=== PATIENT | female | born 1960 | race Caucasian/White ===

== ENCOUNTER 2025-04-30 13:19 | Inpatient (IN) | payer MEDICAID, SELFPAY ==
[2025-04-30] VITALS (69 sets, daily range): BP systolic 71–157; BP diastolic 39–117; PULSE 68–173; RESP 13–45; TEMP 35.4–38; O2SAT 80–100; BMI 28.3
--- NOTE | 2025-04-30 13:34 | EKG_ITS ---
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1960 Requested By: ED Temporary Provider Order Number: [id number] Reading MD: ED Temporary Provider Measurements Intervals [place] Rate: 93 P: MS: QRS: -48 QRSD: 226 T: 137 QT: 486 QTc: 607 Interpretive Statements ATRIAL FIBRILLATION WITH ABERRANT CONDUCTION OR VENTRICULAR PREMATURE COMPLEXES INTRAVENTRICULAR CONDUCTION DELAY [130+ ms QRS DURATION] LATERAL MYOCARDIAL INFARCTION , OF INDETERMINATE AGE [40+ ms Q WAVE AND/OR ST/T ABNORMALITY IN I/aVL/V5/V6] INFERIOR MYOCARDIAL INFARCTION , POSSIBLY ACUTE [40+ ms Q WAVE AND/OR ST/T ABNORMALITY IN II/aVF] ACUTE [place] No previous ECG available for comparison /store/S0/[id number]
--- NOTE | 2025-04-30 13:35 | PC.NURSE ---
No heart alert to be called per Dr. Keen.
--- NOTE | 2025-04-30 13:40 | PC.NURSE ---
[facility], pt. has been vomiting bile X 2 days, pt. states her stomach hurts, pt. stating she doesn't want to , pt. stating she can't breathe.
--- NOTE | 2025-04-30 13:45 | PD.EDNV ---
Nausea/Vomit./Diarrhea-RME/HPI General Chief complaint: Nausea/Vomiting/Diarrhea Stated complaint: ABD PAIN Time Seen by Provider: 04/30/25 13:43 Arrival date/time: 04/30/25 13:19 Limitations: no limitations RME / HPI RME / HPI Narrative: 64 year old female with history of CVA, atrial fibrillation, HFrEF (25-30% 01/2023), CKD, hypothyroidism, presents to the ED BIBA from [facility] for evaluation of abdominal pain beginning 2 days ago and remaining constant since. States the pain is located most to the mid upper abdomen, described as aching in sensation, rating as moderate. Accompanied by nausea and nonbloody vomiting. Patient additionally reports feeling anxious and states I don't want to . Denies any recent illness, fevers, chills, chest pain, shortness of breath, or dysuria. Related Data Home Medications ?Medication ?Instructions ?Recorded ?Confirmed levothyroxine 50 mcg tablet 50 mcg PO QDAY #0 tabs 09/10/15 01/11/20 potassium chloride 20 mEq 20 meq PO TIDWM #0 tabs 09/10/15 01/11/20 tablet,extended release(part/cryst) Held on 07/10/23. Instructions: PCP to resume at follow up magnesium hydroxide 400 mg/5 mL 30 ml PO Q72H PRN CONSTIPATION #0 09/11/15 01/11/20 oral suspension (Milk of Magnesia) mL multivitamin with minerals 1 tab PO QDAY ##0 09/11/15 01/11/20 ascorbic acid (vitamin C) 500 mg 500 mg PO BID 03/12/19 01/11/20 tablet psyllium husk 0.52 gram capsule 0.52 g PO BID 03/12/19 01/11/20 (Fiber-Caps (psyllium husk)) ropinirole 1 mg tablet 1 mg PO BID 03/12/19 01/11/20 Previous Rx's ?Medication ?Instructions ?Recorded diphenoxylate-atropine 2.5 1 tab PO BID #6 tabs 01/15/20 mg-0.025 mg tablet metoprolol succinate 25 mg 50 mg (2 x 25 mg) PO QDAY #0 tabs 07/10/23 tablet,extended release 24 hr rivaroxaban 15 mg tablet (Xarelto) 15 mg PO WSUPPER #0 tabs 07/10/23 Allergies Allergy/AdvReac Type Severity Reaction Status Date / Time Cephalexin Monohydrate Allergy Severe Anaphylaxis Verified 04/30/25 13:40 sulfamethoxazole Allergy Severe Anaphylaxis Verified 04/30/25 13:40 trimethoprim Allergy Severe Anaphylaxis Verified 04/30/25 13:40 Review of Systems Review of Systems Systems Reviewed: All systems reviewed, normal except as documented Past Medical History Past Medical History NEUROLOGIC: Positive Neurological Disorders and Cerebrovascular Accident CARDIAC: Positive Cardiac Disorders, Atrial Fibrillation and Hypertension RESPIRATORY: Positive Asthma GENITOURINARY: Positive Renal Disease ENDOCRINE: Positive Diabetes Mellitus Type 2 Family History FAMILY HISTORY: Negative Family Cardiac Disorders Surgical History SURGICAL: Negative Cardiac Surgery, Endocrine Surgery, Ear Surgery, Abdominal Surgery, Nephrectomy, Joint Replacement or Neurologic Surgery Social History SMOKING STATUS: Former smoker ED Exam General Limitations: Present no limitations General appearance: Present alert and other (complains of pain anywhere my stethoscope touches ) Head Head exam: Present atraumatic Eye Eye exam: Present normal appearance, PERRL and EOMI ENT ENT exam: Present normal exam, normal oropharynx and mucous membranes moist Neck Neck exam: Present normal inspection, full ROM and trachea midline Chest Chest inspection: Present normal inspection and symmetric chest wall rise Respiratory Respiratory exam: Present normal lung sounds bilaterally Cardiovascular Cardiovascular exam: Present irregular rhythm (tachycardic ) and normal heart sounds Abdominal Exam Abdominal exam: Present soft, tenderness (1-2+ tenderness upper abdomen, no rebound, no percussion) and normal bowel sounds Extremities Exam Extremities exam: Present other (sacral decubitus ulcer that is healing, left posterior thigh excoriation, left heel eschar, left leg has more edema than right (left leg 3+ and right leg 2+), left distal leg and foot with slightly erythema) Back Exam Back exam: Present normal inspection and full ROM Neurological Exam Neurological exam: Present alert, oriented X3 and CN II-XII intact Psychiatric Psychiatric exam: Present normal affect and normal mood Skin Skin exam: Present warm, dry, intact and normal color Course Quality Measures none Orders Category Date Time Status COVID-19 Screening Questionnaire NOW Care 04/30/25 15:[address] Screening NOW Care 04/30/25 14:39 Active Interpersonal Communications Professor NOW Care 04/30/25 13:49 Active Continuous Pulse Oximetry NOW Care 04/30/25 13:49 Completed Decision to Admit X1 Care 04/30/25 15:56 Active EKG (ED ONLY) *Do not use* NOW Care 04/30/25 13:34 Completed EKG (ED ONLY) *Do not use* NOW Care 04/30/25 13:49 Completed EKG (ED ONLY) *Do not use* NOW Care 04/30/25 16:04 Active Insert IV NOW Care 04/30/25 13:49 Active Consult to Nephrology Stat Cons 04/30/25 15:[address] abdomen pelvis w con Stat Exams 04/30/25 14:39 Ordered EKG (ED Only) Stat Exams 04/30/25 13:34 Draft EKG (ED Only) Stat Exams 04/30/25 13:49 Ordered EKG (ED Only) Stat Exams 04/30/25 16:04 Ordered XR chest 1V portable Stat Exams 04/30/25 13:49 Completed ABG [Arterial Blood Gas] Stat Lab 04/30/25 15:54 Ordered BNP [B-Type Natriuretic Peptide] Stat Lab 04/30/25 16:02 Received Blood Culture (Lab) Stat Lab 04/30/25 15:57 Ordered CBC Stat Lab 04/30/25 14:00 Completed Comprehensive Metabolic Panel Stat Lab 04/30/25 15:25 Received Lactic Acid [Lactate (Lactic Acid)] Stat Lab 04/30/25 15:57 Ordered Partial Thromboplastin Time Stat Lab 04/30/25 14:00 Completed Procalcitonin Stat Lab 04/30/25 16:06 Ordered Prothrombin Time with INR Stat Lab 04/30/25 14:00 Completed Troponin I Stat Lab 04/30/25 15:25 Received Urinalysis Stat Lab 04/30/25 13:49 Ordered ALBUTEROL RT 3ml [Proventil Rt 3ml] Med 04/30/25 15:54 Discontinued 5 mg INH X1 ONE Calcium Chloride 10% Abboject 10 ml Med 04/30/25 15:25 Active Dextrose 5%-Water [D5w] 100 ml IV X1 Dextrose 50% Syr [D50w Syringe Abboject] Med 04/30/25 15:25 Discontinued 50 ml IVP X1 ONE Insulin Regular Med 04/30/25 15:25 Discontinued 8 unit IV X1 ONE Sod Polystyrene Sulfon Susp [Kayexalate Susp] Med 04/30/25 15:25 Discontinued 15 gm PO X1 ONE Sodium Bicarb 8.4% 50ml Vial* Med 04/30/25 15:25 Discontinued 50 meq IV X1 ONE Sodium Chloride 0.9% 1000 ml [Ns] 1,000 ml Med 04/30/25 13:49 Active IV 100 mls/hr BiPAP / CPAP NOW RT 04/30/25 15:56 Active Oxygen Delivery NOW RT 04/30/25 13:49 Active Vital Signs Vital signs: Vital Signs Pulse Rate 74 04/30/25 13:29 Respiratory Rate 19 04/30/25 13:29 Oxygen Flow Rate 4 04/30/25 13:29 Nausea/Vomiting/Diarrhea Patient data External records reviewed:: [facility] previous records, EMS form and Group Home records (I reviewed pmhx and medication list from [facility] ) Clinical information provided by:: patient and EMS Social determinants that could affect healthcare access:: [place] [facility] ) Patient has the following chronic illnesses:: CVA, atrial fibrillation, HFrEF (25-30% 01/2023), CKD, hypothyroidism How is presenting disease/condition affected by chronic disease/condition?: no chronic disease Evaluation data The following diagnostics were reviewed and interpreted by me:: lab results, radiology exam(s) and EKG tracing(s) (05/01/2025 @ 13:36. Atrial fibrillation with RVR, rate 106, lateral SC of indeterminate age, inferior SC of indeterminate age, marked ST depression, no STEMI, QRS 227ms) Lab and/or radiology exams considered but not ordered:: None Interpretation Summary: Ordering Physician: Kofi Keen MD Date of Service: 04/30/25 Procedure(s): XR chest 1V portable Accession Number(s): [id number] cc: Kofi Keen MD; Danis Myers MD~ Exam: Chest 1 view, AP Date and time of exam: 11/28/2024, 2:08 PM INDICATION: Cough Comparison: 06/03/2016 Findings: Normal heart size. No mediastinal adenopathy. No acute fracture No pulmonary edema or pneumonia. Impression: No active disease. Dictated By: Danis Myers MD Signed By: <Electronically signed by Danis Myers MD in OV> 04/30/25 1423 Medications / Prescriptions Medications / Prescriptions considered but not ordered:: None Medication administrations:: Medication Administration History Sodium Chloride (Ns) 1,000 mls @ 100 mls/hr IV .Q10H ONE Stop: 04/30/25 23:48 Last Admin: 04/30/25 14:17 Dose: 100 mls/hr Documented By: ED Calcium Chloride 10 ml/ (Dextrose) 110 mls @ 110 mls/hr IV X1 ONE Stop: 04/30/25 16:24 Discontinued Medications Albuterol (Albuterol Rt 2.5 Mg/3 Ml Nebu) 5 mg INH X1 ONE Stop: 04/30/25 15:55 Dextrose (Dextrose 50%-Water Inj 50 Ml Syringe) 50 ml IVP X1 ONE Stop: 04/30/25 15:26 Insulin Human Regular (Insulin Hum Regular 1 Unit/0.01 Ml (Per Unit)) 8 unit IV X1 ONE Stop: 04/30/25 15:26 Sodium Bicarbonate (Sodium Bicarb Inj 8.4% 1 Meq/Ml 50 Ml Vial) 50 meq IV X1 ONE Stop: 04/30/25 15:26 Sodium Polystyrene Sulfonate (Sod Polystyrene Sulfon Susp 15 Gm/60 Ml Btl) 15 gm PO X1 ONE Stop: 04/30/25 15:26 See above Consultations Consultation(s) initiated? (list below): Yes Consultation #1 (Physician, Specialty, Details): I spoke with aerial sprayer Dr. Granados. Discussed EKG findings and states it is most consistent with electrolyte imbalance. Time: 13:46 Diagnosis Nausea Differential Diagnosis: gastroenteritis, drug-induced nausea and vomiting, dehydration and other (electrolyte imbalance ) Most likely diagnosis given after review of the tests above:: Acute hyperkalemia, afib with rvr, hypothyoroidism, acute respiratory distress Admission Indicated Admission indicated?: indicated Admission Request Was there a request for admission?: Yes Admission Attestation Admission request attestation: Discussed case with [] from Hospitalist service regarding admission. Discussed patients ED course, exam findings, labs, and radiology results. The Hospitalist [agrees,declines] to accept the patient for admission. Disposition Plan Disposition Plan: Admit Critical Care Time Critical Care Time Critical Care Time: Yes Total Critical Care Time (min.): 45 Attestation: The high probability of sudden, clinically significant deterioration in the patient's condition required the highest level of my preparedness to intervene urgently. The services I provided to this patient were to treat and/or prevent clinically significant deterioration. Services included the following: chart data review, reviewing nursing notes and/or old charts, documentation time, [employer] consultant collaboration regarding findings and treatment options, medication orders and management, direct patient care, vital sign assessments and ordering, interpreting and reviewing diagnostic studies and lab tests. Aggregate critical care time includes only time during which I was engaged in work directly related to the patient's care, as described above, whether at bedside or elsewhere in the Emergency Department. It did not include time spent performing other reported procedures or the services of residents, students, nurses or physician assistants. Discharge Plan Plan Patient Disposition: Admit Acute Care w/in Hospital Prescriptions/Referrals Prescriptions/Med Rec: No Action potassium chloride 20 MEQ tablet,ER particles/crystals 20 meq PO TIDWM Qty: 0 levothyroxine 50 mcg Tablet 50 mcg PO QDAY Qty: 0 magnesium hydroxide [Milk of Magnesia] 30 ML/CUP suspension 30 ml PO Q72H PRN (Reason: CONSTIPATION) Qty: 0 multivitamin with minerals Tablet 1 tab PO QDAY Qty: 0 ascorbic acid (vitamin C) 500 mg Tablet 500 mg PO BID psyllium husk [Fiber-Caps (psyllium husk)] 0.52 gram Capsule 0.52 g PO BID ropinirole 1 mg Tablet 1 mg PO BID diphenoxylate-atropine 2.5-0.025 mg Tablet 1 tab PO BID Qty: 6 0RF metoprolol succinate 25 mg Tablet Extended Release 24 Hr 50 mg PO QDAY Qty: 0 0RF Xarelto 15 mg Tablet 15 mg PO WSUPPER Qty: 0 0RF Referrals: Saida Mejía MD [Primary Care Provider] - In 1 week Problem List Clinical Impression: Acute hyperkalemia, Atrial fibrillation with RVR, Hypothyroidism, Acute respiratory distress Patient/Caregiver Discharge Instructions Print Language: Fijian Stand Alone Forms: [employer]mita Award Info., Patient Portal Info Letter
--- NOTE | 2025-04-30 13:49 | XR_ITS ---
Exam: Chest 1 view, AP Date and time of exam: 11/28/2024, 2:08 PM INDICATION: Cough Comparison: 06/03/2016 Findings: Normal heart size. No mediastinal adenopathy. No acute fracture No pulmonary edema or pneumonia. Impression: No active disease.
--- NOTE | 2025-04-30 13:49 | EKG_ITS ---
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1960 Requested By: Kofi Gray Order Number: [id number] Reading MD: Kofi Gray Measurements Intervals [place] Rate: 100 P: [place]: QRS: -51 QRSD: 219 T: 129 QT: 347 QTc: 447 Interpretive Statements ATRIAL FLUTTER/TACHYCARDIA WITH RAPID VENTRICULAR RESPONSE WITH ABERRANT CONDUCTION OR VENTRICULAR PREMATURE COMPLEXES INTRAVENTRICULAR CONDUCTION DELAY [130+ ms QRS DURATION] LATERAL MYOCARDIAL INFARCTION , OF INDETERMINATE AGE [40+ ms Q WAVE AND/OR ST/T ABNORMALITY IN I/aVL/V5/V6] INFERIOR MYOCARDIAL INFARCTION , PROBABLY OLD [40+ ms Q WAVE AND/OR ST/T ABNORMALITY IN II/aVF] MARKED ST DEPRESSION, CONSIDER SUBENDOCARDIAL INJURY [0.2+ mV ST DEPRESSION] ACUTE [place] Compared to ECG 04/30/2025 13:36:40 ST (T wave) deviation now present Atrial fibrillation no longer present Myocardial infarct finding still present /store/S0/[id number]/ecg/[id number]
[2025-04-30] MEDS: SODIUM CHLORIDE 0.9% 1000 ML 1,000 ML 100 ML IV (14:17)
[2025-04-30 14:29] LABS: Basophils # (Auto) 0.0 Thou/mm3 (0.0-0.2); Basophils % (Auto) 0 % (0-2.5); Eosinophils # (Auto) 0.0 Thou/mm3 (0.0-0.5); Eosinophils % (Auto) 0 % (0-10); Hematocrit 36.7 % (36.0-46.0); Hemoglobin 11.0 g/dL (12.0-16.0); Immature Granulocytes Auto 0.16 Thou/mm3 (0.00-0.00); Lymphocytes # (Auto) 2.0 Thou/mm3 (1.0-4.8); Lymphocytes % (Auto) 17 % (10-50); Mean Corpuscular HGB Conc 30.0 g/dl (31.0-37.0); Mean Corpuscular Hemoglobin 31.9 pg (25.0-35.0); Mean Corpuscular Volume 106 fL (80-100); Monocytes # (Auto) 0.8 Thou/mm3 (0.0-0.8); Monocytes % (Auto) 6 % (0-12); Neutrophils # (Auto) 9.1 Thou/mm3 (1.8-7.7); Neutrophils % (Auto) 75 % (37-80); Nucleated Red Blood Cell # 0.00 Thou/mm3 (0.00-0.00); Nucleated Red Blood Cell % 0 /100 WBC (0); Platelet Count 228 Thou/mm3 (140-440); RDW Standard Deviation 66.6 fL (36.4-46.3); Red Blood Count 3.45 Miln/mm3 (4.00-5.20); White Blood Count 12.1 Thou/mm3 (3.6-11.0)
[2025-04-30 14:37] LABS: INR 1.4 (0.9-1.3); Partial Thromboplastin Time 32.1 Seconds (22.0-36.0); Prothrombin Time 14.6 Seconds (9.0-12.2)
--- NOTE | 2025-04-30 14:42 | PC.NURSE ---
called [facility] and spoke to the nurse at station 3, informed her that pt. wants to talk to her , nurse states please call [phone], called cordless number and no one answered. Called [phone] back and asked for station 3, the nurse dev
--- NOTE | 2025-04-30 14:45 | PC.NURSE ---
called [facility] for pt. to speak with her Ariel, , nurse answered and I asked for pt.'s in station 3, nurse stated please call [phone] cordless phone, called [phone], no answer. Called [phone] back and nurse states Ariel will be unable to talk because cordless phone isn't working. Pt. aware.
--- NOTE | 2025-04-30 15:04 | PC.NURSE ---
Vaibhav from Lab called and pt.'s K+ 9.1, Vaibhav states that he will have the mica patcher redraw pt. Dr. Keen informed.
--- NOTE | 2025-04-30 16:03 | PC.NURSE ---
Pt. just redrawn by area manager.
[2025-04-30] MEDS: CALCIUM CHLORIDE 10% INJ 10 ML SYRG IV (16:20)
[2025-04-30] MEDS: INSULIN HUM REGULAR 1 UNIT/0.01 ML (PER UNIT) 5 UNIT IV (16:28)
[2025-04-30] MEDS: ALBUTEROL RT 2.5 MG/3 ML NEBU 5 MG INH (16:31)
[2025-04-30 16:33] LABS: B-Type Natriuretic Peptide 2426 pg/mL (0-100)
[2025-04-30 16:41] LABS: Alanine Aminotransferase 8 U/L (10-49); Albumin, Serum 3.3 gm/dL (3.4-4.8); Albumin/Globulin Ratio 0.9 (1.2-2.2); Alkaline Phosphatase 79 U/L (46-116); Anion Gap 18 (7-16); Aspartate Amino Transferase 22 U/L (0-34); BUN/Creatinine Ratio 10 Ratio (12-20); Bilirubin,Total 0.3 mg/dL (0.3-1.2); Blood Urea Nitrogen 65 mg/dL (9-23); Calcium 9.6 mg/dL (8.3-10.6); Calcium (Corrected) 10.2 mg/dL (8.5-10.1); Chloride 110 mMol/L (98-107); Creatinine (Component) 6.2 mg/dL (0.6-1.3); Globulin 3.5 gm/dL (2.3-3.5); Glucose 78 mg/dL (74-106); Osmolality,Calculated 293 (275-295); Procalcitonin 0.19 ng/ml (0.0-0.49); Sodium 138 mMol/L (136-145); Total Protein 6.8 gm/dL (5.7-8.2); eGFR 7 See Note
[2025-04-30 16:41] LABS: Base Excess, Venous -27 (-3-3); O2 Saturation, Venous 73 % (96-97); PCO2, Venous 25 mmHg (36-56); PO2, Venous 56 mmHg (15-58); pH, Venous 6.89 (7.33-7.66)
[2025-04-30 16:43] LABS: Carbon Dioxide < 10.0 mMol/L (20.0-31.0)
[2025-04-30 16:44] LABS: Potassium 9.5 mMol/L (3.4-5.1); Troponin I 0.064 ng/mL (0.0-0.045)
[2025-04-30 16:45] LABS: Lactate (Lactic Acid) 11.6 mMol/L (0.4-2.0)
[2025-04-30] MEDS: Sodium Bicarb Inj 8.4% SYR 50 ML SYRINGE IV (17:20)
[2025-04-30] MEDS: INSULIN HUM REGULAR 1 UNIT/0.01 ML (PER UNIT) 10 UNIT IV (17:20)
[2025-04-30] MEDS: DEXTROSE 50%-WATER INJ 50 ML SYRINGE IV (17:20)
--- NOTE | 2025-04-30 17:27 | XR_ITS ---
Examination: Retroperitoneal ultrasound, complete Technique: Multiple high resolution grayscale images of the retroperitoneum obtained, including kidneys and bladder. Exam date and time:April 30, 2025, 2007 hrs. Indications: Epigastric pain 3 days, renal failure patient, abdominal pain Findings: Right kidney 11.8 cm cortex 2.1 cm Left kidney 10.5 cm cortex 1.7 cm Multiple left renal cysts, the largest 3.4 cm 19 mm renal calculus No hydronephrosis Contracted urinary bladder Impression: 19 mm left renal calculus, no hydronephrosis.
--- NOTE | 2025-04-30 17:57 | PC.NURSE ---
Dr. Siu put in central line right side neck, Dr. Keen confirmed.
--- NOTE | 2025-04-30 18:09 | PC.NURSE ---
Dr. Siu unable to get catheter in, guide wire is in and confirmed by Dr. Keen, Dr. Byrnes is bedside and states he will try femoral.
--- NOTE | 2025-04-30 18:23 | PC.NURSE ---
Dr. Byrnes bedside to do femoral dialysis catheter. Dr. Siu bedside with Dr. Byrnes.
[2025-04-30] MEDS: Sodium Bicarb 8.4% 50ml Vial* 88.23 MEQ in DEXTROSE 5%-WATER 500 ML 100 MEQ IV (18:30)
--- NOTE | 2025-04-30 18:41 | PC.NURSE ---
Dr. Byrnes just put in left femoral catheter for dialysis. Pt. tolerated well.
--- NOTE | 2025-04-30 18:54 | PD.EDADDENDU ---
Emergency Room Addendum Addendum Narrative: Procedure note: Patient has decreased mental status and is unable to give consent. Patient was in need of a dialysis catheter due to a potassium greater than 9. A left femoral vein dialysis catheter was inserted using the Salinger technique and dual dilator method. Maximum sterile technique and barrier were used. Blood was obtained from all ports and all ports were flushed with normal saline. The line was sutured in place and sterilely dressed. Patient tolerated the procedure well.
--- NOTE | 2025-04-30 19:13 | ECHO_ITS ---
Transthoracic Echo Report Ht (in): 64 Wt (lb): 167 Exam Location: Echo Lab Status: Inpatient Night Baker: Dayna Emery Indications: Procedure Performed: BP: 106 / 75 HR: 96 MEASUREMENTS (Male / Female) Normal Values 2D ECHO LV Diastolic Diameter PLAX 5.7 cm 4.2 - 5.9 / 3.9 - 5.3 cm LV Systolic Diameter PLAX 5.4 cm IVS Diastolic Thickness 0.9 cm 0.6 - 1.0 / 0.6 - 0.9 cm LVPW Diastolic Thickness 1.0 cm 0.6 - 1.0 / 0.6 - 0.9 cm LV Relative Wall Thickness 0.3 LVOT Diameter 1.9 cm LV Ejection Fraction MOD BP 26.2 % >= 55 % LV Cardiac Index MOD BP 2821.5 cm?/min?m? LV Ejection Fraction MOD 4C 29.6 % LV Cardiac Index MOD 4C 2821.5 cm?/min?m? LV Ejection Fraction 4C AL 31.9 % LV Cardiac Index 4C AL 3105.3 cm?/min?m? LV Ejection Fraction MOD 2C 22.1 % LV Cardiac Index MOD 2C 2616.3 cm?/min?m? LV Ejection Fraction 2C AL 21.1 % LV Cardiac Index 2C AL 2524.5 cm?/min?m? LA Volume Index 85.5 cm?/m? 16 - 28 cm?/m? Ascending Aorta Diameter 3.9 cm M-MODE AV Cusp Separation MM 1.3 cm DOPPLER AV Peak Velocity 98.0 cm/s AV Peak Gradient 3.8 mmHg AV Mean Gradient 2.0 mmHg AV Velocity Time Integral 15.8 cm LVOT Peak Velocity 119.0 cm/s LVOT Peak Gradient 5.7 mmHg LVOT Velocity Time Integral 15.0 cm LVOT Cardiac Index 2181.8 cm?/min?m? AV Area Cont Eq vti 2.7 cm? AV Area Cont Eq pk 3.4 cm? MV Area PHT 8.1 cm? MR Peak Velocity 457.0 cm/s MR Peak Gradient 83.5 mmHg MR ERO PISA 2.3 cm? MR Regurgitant Volume PISA 296.1 cm? Mitral E Point Velocity 112.0 cm/s TR Peak Velocity 263.0 cm/s TR Peak Gradient 27.7 mmHg PV Peak Velocity 100.0 cm/s PV Peak Gradient 4.0 mmHg FINDINGS Left Ventricle Left ventricular is mildly dilated. Severe systolic dysfunction. Severe global hypokinesis wall motion. The ejection fraction is visually estimated at 20-25 %. Right Ventricle The right ventricle is normal in size and reduced systolic function. The estimated right ventricular systolic pressure, 41mmHg. Moderate-Severe HTN Left Atrium The left atrial cavity size is severely increased. Right Atrium The right atrial cavity size is mildly increased. Atrial Septum The interatrial septum appears normal with no evidence of a shunt. Aorta Mildly dilated ascending aorta measuring 3.9cm. Mitral Valve The mitral valve is normal by two-dimensional, color flow and Doppler interrogation. Agvojwes-bl-[id number] mitral regurgitation. Aortic Valve The aortic valve is trileaflet and normal by two-dimensional, color flow and Doppler interrogation. There is no significant aortic valve regurgitation. Tricuspid Valve The tricuspid valve is normal by two-dimensional, color flow and Doppler interrogation. There is moderate tricuspid regurgitation. Pulmonic Valve The pulmonic valve is not well visualized. There is no significant pulmonic valve regurgitation. Vessels The pulmonary artery appears normal. The inferior vena cava pulmonary and hepatic veins appear normal. Pericardium The pericardium is normal by two-dimensional imaging. There is no significant pericardial effusion. CONCLUSIONS Indication: CHF Dilated Cardiomyopathy, Moderately dilated LV. Severe global hypokinesis and severe systolic dysfunction. Estimated EF 15-20% Normal RV size, reduced systolic function. Estimated RVSP 45 mmHg. ModerateHTN Moderate MR and mild TR. trace to mild AI. LA severely dilated. RA mildly dilated. Mildly dilated ascending aorta measuring 3.9cm. Bishnu Barcenas (Electronically Signed) Final Date: 04 May 2025 00:12
[2025-04-30 19:37] LABS: Reflex Lactate? Y
[2025-04-30] MEDS: ALBUTEROL RT 2.5 MG/0.5 ML NEBU 5 MG INH (19:45)
--- NOTE | 2025-04-30 20:30 | ESHP_ITS ---
<Statement entered by James Siu MD - 05/05/25 16:39> 64-year-old female with significant past medical history of CVA, atrial fibrillation, HFrEF, CKD, hypothyroidism presented to the hospital with chief complaints of abdominal pain, nausea and vomiting since 2 days. Vitals at the time of admission are significant for temperature 100.4 ?F. Labs at the time of admission significant for potassium 9.5, bicarb less than 10, anion gap 18, creatinine 6.2, lactate 11.6. Initial EKG done in the ED showed sine wave pattern for which patient was given hyperkalemia protocol. Hemodialysis catheter was placed and patient was admitted into the ICU in view of kidney failure and hyperkalemia requiring HD. Consulted hand mold maker, Dr. Landry and she recommended emergent dialysis. I have personally seen and examined the patient, agree with the resident assessment and plan Patient plan of care was discussed with the Sales Department Clerk, Dr. Jesenia Siu, PGY2 Documentation for date of: 04/30/25 HPI History of Present Illness History of present illness: Note history at this time limited as patient is altered and majority of the history is from chart review 64-year-old female with a past medical history significant for a cerebrovascular accident, atrial fibrillation, heart failure with reduced ejection fraction(25- 30% in January 2023), chronic kidney disease, and hypothyroidism presents from a shelter facility for evaluation of abdominal pain. The pain started two days ago and has been constant since. It is a dull, aching pain located primarily in the [id number] abdomen, and the patient rates its severity as moderate. The pain is accompanied by nausea and multiple episodes of non-bloody, non-bilious vomiting. She also reports feeling anxious and has verbalized a fear of . She denies any recent illness, fevers, chills, chest pain, shortness of breath, dysuria, diarrhea, or changes in bowel habits. ED course: Initial vitals include temperature 100.4, respiratory rate 19, pulse 74, blood pressure 157/117, O2 saturations 99% on 4 L of nasal cannula. EKG showed atrial fibrillation with RVR and wide-complex tachycardia. Notable labs include potassium 9.5, bicarb less than 10, anion gap 18, creatinine 6.2, lactic acid 11.6, corrected calcium 10.2, BNP 2426, Pro-Matias 0.19. VBG pH 6.89. Coagulation studies showed PT 14.6, INR 1.4. CBC showed WBC 12.1, hemoglobin 11, MCV 100.6. Patient was given 1 L of normal saline. Patient received calcium chloride 10% x 1, D50 push x 2, bicarb 50 mEq x 1, sodium bicarb drip started albuterol 5 mg inhaler x 2, IV insulin 5 units x 1, 10 units x 1. In ED urgent hemodialysis catheter was placed through the left femoral vein. Dr Landry has been contacted regarding starting hemodialysis urgently. Past medical history: As stated above. Past surgical history: Unobtainable. Social history: Unobtainable. Patient admitted to ICU following wide-complex tachycardia in the setting of severe hyperkalemia. Admitted for close monitoring. Review of Systems Review of Systems Narrative Review of Systems: All systems reviewed negative unless stated otherwise above. Exam Vital Signs Temp Pulse Resp BP Pulse Ox O2 Del Method O2 Flow Rate 95.8 F L 157 H 20 154/43 H 100 Nasal Cannula 4 04/30/25 19:37 04/30/25 20:15 04/30/25 19:46 04/30/25 20:15 04/30/25 19:46 04/30/25 19:25 04/30/25 19:46 FiO2 96 04/30/25 19:37 Narrative Exam General: Alert and oriented x 2. In moderate distress and very restless, following limited commands. HEENT: Atraumatic. PERRL. EOMI. Neck supple. CVS: S1-S2. Irregular rhythm. A-fib with RVR RESP: Decreased air entry bilaterally. No crackles heard. On 6 L oxygen via nasal cannula GI: Soft, nontender. Bowel sounds heard. No abdominal distention Skin: Warm, dry, intact. Sacral decubitus ulcer that is healing. Left posterior thigh excoriation, left heel eschar, left leg has more edema than right (left leg 3+ and right leg 2+), left distal leg and foot with slightly erythema) Neuro: Limited at this time. Results: Labs 05/09/25 04:55 05/09/25 04:55 Labs: Short CBC 04/30/25 Range/Units 14:00 WBC 12.1 H (3.6-11.0) Thou/mm3 Hgb 11.0 L (12.0-16.0) g/dL Hct 36.7 (36.0-46.0) % Plt Count 228 (140-440) Thou/mm3 BMP 04/30/25 15:25 Sodium 138 Potassium 9.5 H* Chloride 110 H Carbon Dioxide < 10.0 L* BUN 65 H Creatinine 6.2 H* Glucose 78 Calcium 9.6 Cardiac Enzymes 04/30/25 Range/Units 15:25 Troponin I 0.064 H* (0.0-0.045) ng/mL Liver Function 04/30/25 Range/Units 15:25 Total Bilirubin 0.3 (0.3-1.2) mg/dL AST 22 (0-34) U/L ALT 8 L (10-49) U/L Alkaline Phosphatase 79 (46-116) U/L Albumin 3.3 L (3.4-4.8) gm/dL ABG Interpretation ABG results: 04/30/25 16:32 VBG pH 6.89 L VBG pCO2 25 L VBG pO2 56 VBG Base Excess -27 L Quality Measures Quality Measures none Medications Home Medications and Allergies Home Medications ?Medication ?Instructions ?Recorded ?Confirmed ?Type levothyroxine 50 mcg tablet 50 mcg PO QDAY #0 tabs 06/1605/01/25 History magnesium hydroxide 400 mg/5 mL 30 ml PO Q72H PRN CONS TIPATION #0 09/11/15 05/01/25 History oral suspension (Milk of Magnesia) mL multivitamin with minerals 1 tab PO QDAY ##0 09/11/15 05/01/25 History ascorbic acid (vitamin C) 500 mg 500 mg PO BID 9 05/01/25 History tablet atorvastatin 20 mg/5 mL (4 mg/mL) 20 mg PO QDAY 05/01/25 History oral suspension (AtorvaliQ) brimonidine 0.2 % eye drops 1 drp ophthalmic (eye) HS 05/01/25 05/01/25 History diphenhydramine HCl 25 mg capsule 25 mg PO Q8H PRN all ergy symptoms 05/01/25 05/01/25 History (Allergy (diphenhydramine)) divalproex 250 mg tablet,extended 250 mg PO BID 05/01/25 History release 24 hr (Depakote ER) hydrocodone 10 mg-acetaminophen 1 tab PO Q8H 05/01/25 05/01/25 History 325 mg tablet hydroxyzine HCl 25 mg tablet 25 mg PO BID 05/01/25 History lasix 40 mg PO DAILY 05/01/2504/03 History loperamide 2 mg tablet 4 mg PO Q6H PRN loose stool 05/01/25 05/01/25 History loratadine 10 mg tablet 10 mg PO Q24H 05/01/2505/01 History melatonin 3 mg capsule 3 mg PO HS PRN sleep 5 05/01/25 History metoprolol succinate 50 mg 50 mg PO QDAY 05/01/2504/03 History tablet,extended release 24 hr ondansetron HCl 4 mg tablet 4 mg PO Q6H 05/01/2505/01 History polyethylene glycol 3350 17 gram 17 g PO QDAY 05/01/25 05/01/25 History oral powder packet potassium chloride 10 mEq 10 meq PO BID 05/01/2505/01 History tablet,extended release psyllium husk 0.52 gram capsule 0.52 g PO BID 05/01/25 05/01/25 History (Fiber Laxative (psyllium husk)) ropinirole 1 mg tablet 1 mg PO QDAY 05/01/25 History sennosides 8.6 mg-docusate sodium 2 tab-cap PO BID 05/01/25 History 50 mg tablet (Senna-S) sodium phosphates 19 gram-[address] QDAY PRN constip ation 05/01/25 05/01/25 History gram/118 mL enema (Enema) Allergies Allergy/AdvReac Type Severity Reaction Status Date / Time Cephalexin Monohydrate Allergy Severe Anaphylaxis Verified 05/05/25 09:48 sulfamethoxazole Allergy Severe Anaphylaxis Verified 05/05/25 09:48 trimethoprim Allergy Severe Anaphylaxis Verified 05/05/25 09:48 Visit Medications Acetaminophen (Acetaminophen 325 Mg Tablet) 650 mg PO Q4HR PRN PRN Reason: PAIN SCALE 1-3 (mild Stop: 05/30/25 16:48 Dextrose (Dextrose 50%-Water Inj 50 Ml Syringe) 25 ml IV Q15MIN PRN PRN Reason: BG 50-70 responsive npo pt Stop: 05/30/25 16:57 Dextrose (Dextrose 50%-Water Inj 50 Ml Syringe) 50 ml IV Q15MIN PRN PRN Reason: BG <50 OR BG <70 & pt unresponsive Stop: 05/30/25 16:57 Glucagon (Glucagon Inj 1 Mg Vial) 1 mg IM Q15MIN PRN PRN Reason: BG <70, and no IV access Heparin Sodium (Porcine) (Heparin Sod Inj 5000 Unit/Ml Vial) 5,000 unit SC Q8HR [facility] Stop: 05/14/25 21:59 Sodium Chloride (Ns) 1,000 mls @ 100 mls/hr IV .Q10H ONE Stop: 04/30/25 23:48 Last Admin: 04/30/25 14:17 Dose: 100 mls/hr Sodium Bicarbonate 88.23 meq/ (Dextrose) 588.23 mls @ 100 mls/hr IV .Q5H53M [facility] Stop: 05/31/25 10:38 Sodium Bicarbonate 88.23 meq/ (Dextrose) 588.23 mls @ 100 mls/hr IV .Q5H53M [facility] Stop: 05/01/25 10:38 Last Admin: 04/30/25 18:30 Dose: 100 mls/hr Ceftriaxone Sodium/Dextrose (Rocephin/D5w 1gm Iv Premix) 1 gm in 50 mls @ 100 mls/hr IV QDAY [facility] Stop: 05/07/25 20:09 Sodium Polystyrene Sulfonate (Sod Polystyrene Sulfon Susp 15 Gm/60 Ml Btl) 30 gm PO X1 ONE Stop: 04/30/25 20:13 Discontinued Medications Albuterol (Albuterol Rt 2.5 Mg/3 Ml Nebu) 5 mg INH X1 ONE Stop: 04/30/25 15:55 Last Admin: 04/30/25 16:31 Dose: 5 mg Albuterol (Albuterol Rt 2.5 Mg/0.5 Ml Nebu) 5 mg INH X1 ONE Stop: 04/30/25 17:18 Last Admin: 04/30/25 19:45 Dose: 5 mg Calcium Chloride (Calcium Chloride 10% Inj 10 Ml Syrg) 10 ml IV X1 ONE Stop: 04/30/25 16:22 Last Admin: 04/30/25 16:20 Dose: 10 ml Dextrose (Dextrose 50%-Water Inj 50 Ml Syringe) 50 ml IVP X1 ONE Stop: 04/30/25 16:12 Last Admin: 04/30/25 16:24 Dose: Not Given Dextrose (Dextrose 50%-Water Inj 50 Ml Syringe) 50 ml IV X1 ONE Stop: 04/30/25 17:16 Last Admin: 04/30/25 17:20 Dose: 50 ml Calcium Gluconate/Sodium Chloride (Calcium Gluc/Ns 1000mg Ivpb) 1,000 mg in 50 mls @ 50 mls/hr IV X1 ONE Stop: 04/30/25 17:17 Last Admin: 04/30/25 17:07 Dose: Not Given Dextrose (D10w 1000 Ml) 1,000 mls @ 100 mls/hr IV .Q10H RIANNA Stop: 05/01/25 02:59 Lactated Ringer's (Lactated Ringers) 500 mls @ 999 mls/hr IV .Q31M ONE Stop: 04/30/25 19:11 Last Admin: 04/30/25 20:21 Dose: Not Given Ceftriaxone Sodium/Dextrose (Rocephin/D5w 1gm Iv Premix) 1 gm in 50 mls @ 100 mls/hr IV QDAY RIANNA Stop: 05/07/25 18:41 Insulin Human Regular (Insulin Hum Regular 1 Unit/0.01 Ml (Per Unit)) 5 unit IV X1 ONE Stop: 04/30/25 16:12 Last Admin: 04/30/25 16:28 Dose: 5 unit Insulin Human Regular (Insulin Hum Regular 1 Unit/0.01 Ml (Per Unit)) 10 unit IV X1 ONE Stop: 04/30/25 16:59 Last Admin: 04/30/25 17:20 Dose: 10 unit Sodium Bicarbonate (Sodium Bicarb Inj 8.4% 1 Meq/Ml 50 Ml Vial) 50 meq IV X1 ONE Stop: 04/30/25 15:26 Last Admin: 04/30/25 18:17 Dose: Not Given Sodium Bicarbonate (Sodium Bicarb Inj 8.4% Syr 50 Ml Syringe) 50 ml IV X1 ONE Stop: 04/30/25 17:10 Last Admin: 04/30/25 17:20 Dose: 50 ml Sodium Polystyrene Sulfonate (Sod Polystyrene Sulfon Susp 15 Gm/60 Ml Btl) 15 gm PO X1 ONE Stop: 04/30/25 15:26 Last Admin: 04/30/25 18:18 Dose: Not Given Sodium Polystyrene Sulfonate (Sod Polystyrene Sulfon Susp 15 Gm/60 Ml Btl) 30 gm PO X1 ONE Stop: 04/30/25 16:59 Assessment & Plan Plan 64-year-old female with a past medical history significant for a cerebrovascular accident, atrial fibrillation, heart failure with reduced ejection fraction (25- 30% in January 2023), chronic kidney disease, and hypothyroidism admitted to ICU for severe hyperkalemia requiring urgent hemodialysis. COUNTER MANAGER: #Acute encephalopathy Likely in the setting of severe hyperkalemia Plan: ?Start hemodialysis #History of CVA No intervention at this time. CVS: #Atrial fibrillation Secondary to severe hyperkalemia, potassium 9.5 Plan: ?Treat hyperkalemia ?Reorder echo ?Check A1c level ?Check TSH level ?Keep potassium above 4 and magnesium above 2 at all times #History of reduced ejection fraction Last echo in January 2023 showed ejection fraction 25 to 30% BNP on admission 6 Plan: ?Strict CHIQUIS's ?Repeat echo ordered PULM: #Acute hypoxic respiratory failure Secondary to severe hyperkalemia Plan: ? O2 therapy as necessary ?Wean O2 as appropriate GI: #Abdominal pain -Pain started two days ago and has been constant since. - It is a dull, aching pain located primarily in the [id number] abdomen, and the patient rates its severity as moderate. -Accompanied by nausea and multiple episodes of non-bloody, non-bilious vomiting. -AST, ALT, alk phos within normal limits - Bilirubin within normal limits Plan: ? CT abdomen ordered RENAL: #Severe hyperkalemia #CKD Potassium on presentation 9.5 Patient has been taking potassium chloride 20 mEq 3 times daily with meals EKG showed wide-complex QRS Unknown what patient's baseline creatinine is In ED, patient received calcium chloride 10% x 1, D50 push x 2, bicarb 50 mEq x 1, sodium bicarb drip started albuterol 5 mg inhaler x 2, IV insulin 5 units x 1, 10 units x 1. In ED, urgent hemodialysis catheter was placed through the left femoral vein. Retroperitoneal ultrasound showed 19 mm left renal calculus, no hydronephrosis. Plan: ?Nephrology consulted, Dr Landry, aware regarding starting hemodialysis urgently. ?Start hemodialysis ?Continue sodium bicarb drip ?Renally dose medications ?Avoid nephrotoxic medication ?Repeat renal panel at 1 AM #High anion gap metabolic acidosis 2/2 #Lactic acidosis Lactic acid on presentation 11.6 Anion gap 18 Plan: ? Start hemodialysis ?Trend lactate every 4 hours ENDO #History of hypothyroidism Plan ? Restart levothyroxine once medication reconciliation is complete ?Ordered TSH and T4 levels, follow result HEME #Leukocytosis No concern regarding infection at this time Chest x-ray clear No left shift No fever Plan ?Monitor WBC in a.m. ?Follow blood cultures #Macrocytic anemia Hemoglobin 11, MCV 106 Plan: ? Follow vitamin B12 and folate levels ?Iron panel ordered #Coagulopathy PT 14.6, INR 1.4 Patient is on rivaroxaban 15 mg daily, unsure if taking it Not currently bleeding Plan ?Monitor for signs of bleeding ID No active issues. Health Maintenance: Diet: N.p.o. GI prophylaxis: None at this time DVT prophylaxis: Heparin 5000 units every 8 hours Antibiotics: None at this time CODE STATUS: Full Disposition: ICU Case discussed with my attending Dr. Ba, and senior resident, Dr. Sherron Urias MD PGY-1 Attending Provider Attestation/Addendum Patient not seen on date of service. I was made aware of the patient's need for emergent hemodialysis by the above resident and agree with the findings, assessment, and plan of care as documented. I agree with the plan for admission to ICU with vasopressor support and correction of metabolic acidosis utilizing sodium bicarb drip until hemodialysis can be achieved. Shifting agents for hyperkalemia of 9.5. And significant acute metabolic encephalopathy with need for close monitoring is only available in the intensive care unit. Appreciate ED attendings assistance with placing femoral dialysis catheter after failed attempt by resident. Will follow-up formally on rounds with housestaff tomorrow morning. I remain available overnight for any questions or concerns.
[2025-04-30] MEDS: ALBUMIN HUMAN 25% IVPB 25 GM/100 ML BTL IV (20:48)
[2025-04-30] MEDS: Norepinephrine/D5W 8mg/250ml 8 MG/250 ML BAG 8.888 MG IV (21:27)
[2025-04-30 21:35] LABS: Lactic Acid, 3 HR 8.2 mMol/L (0.4-2.0)
[2025-04-30 22:15] LABS: Alanine Aminotransferase 116 U/L (10-49); Albumin, Serum 3.3 gm/dL (3.4-4.8); Albumin/Globulin Ratio 1.1 (1.2-2.2); Alkaline Phosphatase 86 U/L (46-116); Anion Gap 20 (7-16); Aspartate Amino Transferase 204 U/L (0-34); BUN/Creatinine Ratio 11 Ratio (12-20); Bilirubin,Total 0.4 mg/dL (0.3-1.2); Blood Urea Nitrogen 30 mg/dL (9-23); Calcium 8.9 mg/dL (8.3-10.6); Calcium (Corrected) 9.5 mg/dL (8.5-10.1); Carbon Dioxide 21.4 mMol/L (20.0-31.0); Chloride 100 mMol/L (98-107); Creatinine (Component) 2.8 mg/dL (0.6-1.3); Globulin 3.1 gm/dL (2.3-3.5); Glucose 100 mg/dL (74-106); Magnesium 1.8 mg/dL (1.6-2.6); Osmolality,Calculated 287 (275-295); Phosphorous 2.4 mg/dL (2.4-5.1); Potassium 3.7 mMol/L (3.4-5.1); Sodium 141 mMol/L (136-145); Total Protein 6.4 gm/dL (5.7-8.2); eGFR 18 See Note
[2025-04-30] MEDS: HEPARIN SOD INJ 5000 UNIT/ML VIAL SC (22:30)
[2025-04-30] MEDS: HEPARIN SOD INJ 1000 UNIT/ML VIAL 10 ML 3000 UNIT INDWELLCAT (22:37)
[2025-04-30 22:42] LABS: Base Excess -4 (-3-3); HCO3 18 mEq/L (20-26); Inspired Oxygen, FIO2 28 %; O2 Saturation 100 % (91-98); PCO2 23 mmHg (32.0-48.0); PO2 140 mmHg (83-108); pH, Arterial 7.50 (7.35-7.45)
[2025-04-30 22:44] LABS: Puncture Site Right Radial
[2025-04-30 22:45] LABS: Allen Test Not Performed
--- NOTE | 2025-04-30 23:43 | ESCONSULT_ITS ---
RE: RUBÉN VIVAR : 1960 DATE OF CONSULTATION: 04/30/2025 REASON FOR REFERRAL: Acute kidney injury, hyperkalemia, severe lactic acidosis, and metabolic acidosis. REFERRING PHYSICIANS: Dr. Urias and Dr. Tovar. HISTORY OF PRESENT ILLNESS: This patient is a 64-year-old woman with past medical history significant for CVA, atrial fibrillation, heart failure with reduced ejection fraction of 25%-30% done in 01/2023, hypothyroidism, and a resident of , who presented to emergency room today with abdominal pain, which started 2 days ago. It was described as pain localized at the mid to upper abdomen area. The patient also had episodes of vomiting. When she presented to the emergency room, she was found with peak T waves and a potassium of 9.5, CO2 of less than 10, creatinine of 6.2 with a BNP of 2426, troponin of 0.064, albumin of 3.3, WBC of 12,100, hemoglobin is 11, and platelet count of 228,000. Emergency room physician immediately referred [place] dialysis to address her hyperkalemia and severe metabolic acidosis. The patient said that she has no knowledge of taking metformin or other medications for diabetes. The patient was also started on dialysis 1-1/2 hours ago for severe hyperkalemia and severe lactic acidosis/metabolic acidosis. Her bilateral kidney ultrasound revealed a right kidney measuring 11.8 cm with a cortex of 2.1 cm and a left kidney measuring 10.5 cm with a 1.7 cm cortex with multiple left renal cysts and a 19 mm renal calculus. There was no hydronephrosis found. The patient is currently on dialysis and somehow tolerating it. PAST MEDICAL HISTORY: Atrial fibrillation, hypothyroidism, CHF with EF of 25%- 30%, and CVA. CURRENT MEDICATIONS: 1. Acetaminophen. 2. Albumin. 3. Albuterol. 4. Lactated Ringer solution. 5. Insulin 5 units x1 6. Kayexalate. 7. Sodium chloride at 100 mL per hour. ALLERGIES: CEPHALEXIN, SULFAMETHOXAZOLE AND TRIMETHOPRIM. PHYSICAL EXAMINATION: Blood pressure of 103/71, heart rate of 100, and respiratory rate of 34. Complete physical exam was not done as this is a Telehealth visit. LABORATORY DATA: Hemoglobin of 11, WBC 12,100, and platelet count of 228,000. Sodium 141, potassium 3.7, chloride 100, CO2 is 21.4, BUN 30, and creatinine 2.8. Lactic acid 8.2. Prior to this, sodium was 138, potassium 9.5, chloride 110, CO2 less than 10, anion gap 18, BUN 65, creatinine 6.2, glucose 78, and corrected calcium 10.2. Chest x-ray, no active disease. ASSESSMENT: 1. Oliguric acute kidney injury secondary to acute tubular necrosis following hemodynamic instability resulting into hypoperfusion. 2. Severe hyperkalemia secondary to severe metabolic acidosis and acute kidney injury. 3. Elevated lactic acidosis most likely secondary to ischemic colitis. 4. Abdominal pain, possibly ischemic colitis. 5. Heart failure with reduced ejection fraction of 25%-30%. 6. Elevated B-type natriuretic peptide level. PLAN: The patient was emergently dialyzed today to address hyperkalemia and severe metabolic acidosis. I suspect that patient is either in septic shock versus severe ischemic colitis. The patient may benefit from broad spectrum antibiotics. The patient will be dialyzed again tomorrow. If patient would need CTA of the abdomen and pelvis, I believe that this is a necessary procedure to arrive at the diagnosis. If she will be started on IV antibiotics, then we could use daptomycin, cefazolin, and cefepime. A 2d ECHO will also be helpful to determine if she has cardiogenic shock. Continue supportive treatment. Thank you for allowing me to participate in the care of the patient. DT: 22:49:19 TT: 23:41:00 Ref: [id number] - TID: [id number] [facility]
[2025-05-01] VITALS (147 sets, daily range): BP systolic 67–126; BP diastolic 43–95; PULSE 81–155; RESP 4–40; TEMP 36.1–37.4; O2SAT 81–100; BMI 28.3
[2025-05-01 00:05] LABS: Lactate (Lactic Acid) 13.5 mMol/L (0.4-2.0)
[2025-05-01 00:25] LABS: Free T4 (Free Thyroxine) 1.60 ng/dL (0.89-1.76); Thyroid Stimulating Hormone 2.39 uIU/mL (0.55-4.78)
[2025-05-01] MEDS: PIPER/TAZO 3.375 GM PREMIX 3.375 GM/50 ML BAG IV ×2 (01:04→08:29)
[2025-05-01] MEDS: RINGERS LACTATED 500 ML 500 ML 250 ML IV ×2 (01:05→22:19)
[2025-05-01] MEDS: Sodium Bicarb 8.4% 50ml Vial* 88.23 MEQ in DEXTROSE 5%-WATER 500 ML 100 MEQ IV ×2 (01:05→07:17)
[2025-05-01 02:32] LABS: Albumin, Serum 2.9 gm/dL (3.4-4.8); Anion Gap 31 (7-16); BUN/Creatinine Ratio 9 Ratio (12-20); Blood Urea Nitrogen 31 mg/dL (9-23); Calcium 8.9 mg/dL (8.3-10.6); Calcium (Corrected) 9.8 mg/dL (8.5-10.1); Chloride 101 mMol/L (98-107); Creatinine (Component) 3.4 mg/dL (0.6-1.3); Estimated Creatinine Clearance 21.9 mL/min (>60); Glucose 127 mg/dL (74-106); Osmolality,Calculated 291 (275-295); Phosphorous 2.9 mg/dL (2.4-5.1); Potassium 4.4 mMol/L (3.4-5.1); Sodium 142 mMol/L (136-145); eGFR 15 See Note
[2025-05-01 02:34] LABS: Carbon Dioxide 10.5 mMol/L (20.0-31.0)
--- NOTE | 2025-05-01 02:43 | XR_ITS ---
Examination: CT abdomen and pelvis without contrast. Coronal 3-D reconstructions. Sagittal 2-D reconstructions. Date and time of exam:May 01, 2025, 0309 hrs., Comparison July 09, 2023. Indications: Onset abdominal pain today, acute renal insufficiency on laboratory examination today. CTDI: vol (mGy): 47.91. DLP: (mGycm): 1568. Technique: Axial images of the abdomen have been obtained, 3 mm slice thickness Intravenous contrast material has not been administered. Low dose protocols were performed. One or more of the following dose reduction techniques were used; automated exposure control, adjustment of the mA and/or KV according to patient size, use of iterative reconstruction technique. Findings: Mild to moderate enlargement cardiac contour. No visualized liver lesion No gallstones Spleen is not enlarged. Extensive left staghorn calculi with mild left hydronephrosis Severe bilateral renal scar formation Subcentimeter right renal calculi No pericecal inflammatory change No bowel obstruction. Atrophic uterus. Colonic diverticulosis. Contracted urinary bladder, no bladder calculi Cervical spine and left common femoral iliac vein Impression: Extensive left staghorn calculi with mild left hydronephrosis Severe bilateral renal parenchymal scar formation No ureteral calculi
[2025-05-01] MEDS: SODIUM BICARB INJ 8.4% 1 mEq/ML 50 ML VIAL 50 MEQ IV (02:51)
[2025-05-01 02:58] LABS: Reflex Lactate? Y
--- NOTE | 2025-05-01 04:40 | PRELIM_ITS ---
CT scan of the abdomen and pelvis without intravenous contrast (axial sections with sagittal and coronal reformats) May 01, 2025 0309 hours Clinical History: Abdominal pain. Comparison: None. Findings: Bilateral lower lobes atelectasis. The liver, gallbladder, pancreas, spleen, and adrenals are unremarkable on this noncontrast study. Staghorn stone in the left kidney. Mild left hydroureteronephrosis. Bilateral renal cortical scarring. Nonobstructing right kidney stones. No evidence of bowel obstruction. No evidence of appendicitis. There is no mesenteric or retroperitoneal adenopathy. The urinary bladder is nondistended, limited evaluation. There is no free fluid or free air. Degenerative changes of the imaged portions of the spine. No acute fractures. Left venous line with a distal tip in the left calf on iliac vein. Diverticulosis of the colon.Staghorn stone in the left kidney. Dilated left and right atria. Mild thickening of the descending colon. Impression: 1. Mild left hydronephrosis of uncertain etiology. 2. Staghorn stone in the left kidney. 3. Nonobstructing right nephrolithiasis. 4. Bilateral renal cortical scarring. 5. Mild thickening of the descending colon, possibly due to colitis. 6. Dilated atria. Report Electronically Signed By: Triston Car 05/01/2025 4:40:22 AM [EST]
[2025-05-01 04:51] LABS: Basophils # (Auto) 0.0 Thou/mm3 (0.0-0.2); Basophils % (Auto) 0 % (0-2.5); Eosinophils # (Auto) 0.0 Thou/mm3 (0.0-0.5); Eosinophils % (Auto) 0 % (0-10); Hematocrit 24.6 % (36.0-46.0); Immature Granulocytes Auto 0.11 Thou/mm3 (0.00-0.00); Lymphocytes # (Auto) 0.7 Thou/mm3 (1.0-4.8); Lymphocytes % (Auto) 8 % (10-50); Mean Corpuscular HGB Conc 32.5 g/dl (31.0-37.0); Mean Corpuscular Hemoglobin 33.2 pg (25.0-35.0); Mean Corpuscular Volume 102 fL (80-100); Monocytes # (Auto) 0.8 Thou/mm3 (0.0-0.8); Monocytes % (Auto) 8 % (0-12); Neutrophils # (Auto) 8.1 Thou/mm3 (1.8-7.7); Neutrophils % (Auto) 84 % (37-80); Nucleated Red Blood Cell # 0.02 Thou/mm3 (0.00-0.00); Nucleated Red Blood Cell % 0 /100 WBC (0); Platelet Count 120 Thou/mm3 (140-440); RDW Standard Deviation 62.0 fL (36.4-46.3); Red Blood Count 2.41 Miln/mm3 (4.00-5.20); White Blood Count 9.7 Thou/mm3 (3.6-11.0)
[2025-05-01 04:55] LABS: Hemoglobin 8.0 g/dL (12.0-16.0)
[2025-05-01 04:55] LABS: Lactic Acid, 3 HR 9.3 mMol/L (0.4-2.0)
[2025-05-01 05:10] LABS: Iron 36 mcg/dL (50-170); Percent Iron Saturation 27 % (20-55); Total Iron Binding Capacity 131 mcg/dL (250-425); Unsaturated Iron Binding 95 (225-295)
[2025-05-01 05:15] LABS: Folate 6.62 ng/mL (>5.38); Vitamin B12 340 pg/mL (211-911)
[2025-05-01] MEDS: HEPARIN SOD INJ 5000 UNIT/ML VIAL SC ×3 (05:47→22:00)
--- NOTE | 2025-05-01 06:00 | EKG_ITS ---
[facility] Test Date: 2025-05-01 Pat Name: RUBÉN VIVAR Department: Room: S253A Gender: Female Irrigator Valve Pipe: SYMONE : 1960 Requested By: Hermes Urias Order Number: [id number] Reading MD: Hermes Urias Measurements Intervals [facility] Rate: 145 P: ND: QRS: -31 QRSD: 125 T: 145 QT: 306 QTc: 476 Interpretive Statements ATRIAL FIBRILLATION WITH RAPID VENTRICULAR RESPONSE WITH ABERRANT CONDUCTION OR VENTRICULAR PREMATURE COMPLEXES MARKED LEFT AXIS DEVIATION MODERATE INTRAVENTRICULAR CONDUCTION DELAY MODERATE VOLTAGE CRITERIA FOR LVH, CONSIDER NORMAL VARIANT ST DEVIATION AND MODERATE T-WAVE ABNORMALITY, CONSIDER LATERAL ISCHEMIA Compared to ECG 04/30/2025 13:36:40 Left-axis deviation now present T-wave abnormality now present Possible ischemia now present Myocardial infarct finding no longer present /store/S0/[id number]/[id number]
--- NOTE | 2025-05-01 06:37 | XR_ITS ---
Examination: CTA chest, with intravenous contrast. CTA abdomen, with intravenous contrast. CTA pelvis, with intravenous contrast. 2-D sagittal and coronal reconstructions. 3-D reconstructions. Date and time of exam: May 01, 2025, 11:39 AM Indications: Generalized abdominal pain beginning 24 hours ago, diagnosis mesenteric ischemia Comparison: May 01, 2025 10:27 AM CTDI vol (mgy) 48.7 DLP (MGycm) 1350 Technique: Multiple CTA images, 2.0 mm slice thickness, obtained chest, abdomen, pelvis, with the high-resolution 64 slice scanner. 100 cc Isovue-370 is administered intravenously. Sagittal and coronal 2-D reconstructions are obtained. 3-D reconstructions, angiographic images are obtained. 3-D postprocessing, including vascular maximum intensity projections. Low dose protocols were performed. One or more of the following dose reduction techniques were used; automated exposure control, adjustment of the mA and/or KV according to patient size, use of iterative reconstruction technique. Findings: Subcentimeter right thyroid nodules Thoracic aortic aneurysm dilatation. No pulmonary artery filling defects. Moderate enlargement cardiac contour. Prominent vascular congestion with early edema at the lung bases No visualized liver or splenic lesion No gallstones No common bile duct stones. No pancreatic mass. Renal scarring again noted as well as extensive staghorn left renal calculi Mild dilatation of the left renal collecting system including left ureter which may be secondary to urinary tract infection. No air in the bowel wall noted Negative for pneumoperitoneum Peritonitis pattern is not depicted Colonic diverticulosis. Atrophic uterus Contracted urinary bladder with wall thickening and inflammatory change, cystitis pattern Severe osteopenia Impression: Negative for pulmonary artery emboli. Moderate enlargement cardiac contour with mild heart failure pattern. Significant renal scarring Extensive left staghorn calculi Left urinary tract infection pattern. Normal appendix. No findings diagnostic for ischemic bowel Negative for pneumoperitoneum Significant cystitis pattern
[2025-05-01 06:50] LABS: Alanine Aminotransferase 201 U/L (10-49); Albumin, Serum 2.8 gm/dL (3.4-4.8); Albumin/Globulin Ratio 1.2 (1.2-2.2); Alkaline Phosphatase 54 U/L (46-116); Anion Gap 27 (7-16); Aspartate Amino Transferase 440 U/L (0-34); BUN/Creatinine Ratio 9 Ratio (12-20); Bilirubin,Total 0.3 mg/dL (0.3-1.2); Blood Urea Nitrogen 32 mg/dL (9-23); Calcium 8.9 mg/dL (8.3-10.6); Calcium (Corrected) 9.9 mg/dL (8.5-10.1); Chloride 101 mMol/L (98-107); Creatinine (Component) 3.5 mg/dL (0.6-1.3); Estimated Creatinine Clearance 21.2 mL/min (>60); Globulin 2.3 gm/dL (2.3-3.5); Glucose 104 mg/dL (74-106); Magnesium 1.7 mg/dL (1.6-2.6); Osmolality,Calculated 290 (275-295); Phosphorous 2.6 mg/dL (2.4-5.1); Potassium 4.4 mMol/L (3.4-5.1); Sodium 142 mMol/L (136-145); Total Protein 5.1 gm/dL (5.7-8.2); eGFR 14 See Note
[2025-05-01 06:51] LABS: Carbon Dioxide 14.3 mMol/L (20.0-31.0)
[2025-05-01 06:54] LABS: Fibrinogen 269 mg/dL (175-375); INR 1.5 (0.9-1.3); Partial Thromboplastin Time 34.5 Seconds (22.0-36.0); Prothrombin Time 15.9 Seconds (9.0-12.2)
[2025-05-01 07:05] LABS: LDH (Lactate Dehydrogenase) 621 U/L (120-246)
[2025-05-01 08:01] LABS: Base Excess -1 (-3-3); HCO3 22 mEq/L (20-26); Inspired Oxygen, FIO2 21 %; O2 Saturation 99 % (91-98); PCO2 28 mmHg (32.0-48.0); PO2 91 mmHg (83-108); pH, Arterial 7.51 (7.35-7.45)
[2025-05-01 08:14] LABS: D-Dimer 633 ng/mL (<600)
[2025-05-01] MEDS: METOPROLOL SUCCINATE XL 25 MG TABCR 50 MG PO (08:29)
[2025-05-01] MEDS: Magnesium Sulfate 4 GM Ivpb 4 GM/50 ML BAG IV ×2 (08:29→22:14)
[2025-05-01 08:38] LABS: Allen Test Performed/OK; Puncture Site Right Radial
--- NOTE | 2025-05-01 08:47 | XR_ITS ---
Examination: CT brain head without contrast. 2-D sagittal coronal reconstructions Date and time of exam:April 30, 1136 hrs., Comparison September 10, 2015 Indications: Altered mental status today, history prior stroke CTDI: vol (mGy):49.4 DLP: (mGycm):1093. Technique: Multiple CT axial sections of the brain have been obtained, 5 mm slice thickness. Contrast has not been administered. 2-D sagittal, coronal reconstructions have been obtained Low dose protocols were performed. One or more of the following dose reduction techniques were used; automated exposure control, adjustment of the mA and/or KV according to patient size, use of iterative reconstruction technique. Findings: Again noted large old infarct right middle cerebral artery distribution and smaller old infarct right cerebellar hemisphere. Lateral right ventricular dilatation, mild No interval hemorrhage or mass effect Impression: Chronic changes as above, stable compared with September 10, 2015. No interval hemorrhage mass effect or midline shift
--- NOTE | 2025-05-01 11:13 | ESPR_ITS ---
Documentation for date of: 05/01/25 Subjective Subjective Interval history: Interval history: 05/01/2025 Patient's mentation improved since yesterday after hemodialysis session. Bedside ultrasound was done, it was found that the patient is intravascularly depleted. Total o 750 mL of LR was given. Bicarb level improved today to 27. Bicarb drip was stopped. Blood culture from yesterday was positive for GPC. Patient produced about 100ml of urine today and it was suspicious for infection. Sent for urinalysis and urine culture. UA showed UTI. Patient continues to be on Zosyn renally dosed. Doxycline added since 09/02 blood culture from yesterday was positive GPC. Sample may be a contaminant so repeated blood culture today. CT abdomen angiogram was done there were no evidence of ischemic bowel. There is chronic extensive left staghorn calculi. Patient requires Levophed low-dose to maintain a MAP greater than 65. Exam Vital Signs Temp Pulse Resp BP Pulse Ox O2 Del Method O2 Flow Rate 97.0 F 128 H 17 82/64 L 98 Room Air 1 05/01/25 08:00 05/01/25 10:45 05/01/25 10:45 05/01/25 10:45 05/01/25 10:45 05/01/25 08:00 05/01/25 02:34 FiO2 96 04/30/25 22:30 Narrative Exam General: Alert and oriented x 3. Not in distress, following commands. HEENT: Atraumatic. PERRL. EOMI. Neck supple. CVS: S1-S2. Irregular rhythm. A-fib with RVR RESP: Decreased air entry bilaterally. No crackles heard. GI: Soft, nontender. Bowel sounds heard. No abdominal distention Skin: Warm, dry, intact. Sacral decubitus ulcer that is healing. Left posterior thigh excoriation, left heel eschar, left leg has more edema than right (left leg 3+ and right leg 2+), left distal leg and foot with slightly erythema) Neuro: Limited at this time. Objective Labs 05/09/25 04:55 05/09/25 04:55 Labs: Laboratory Results - last 24 hr 04/30/25 04/30/25 04/30/25 14:00 15:25 16:02 WBC 12.1 H RBC 3.45 L Hgb 11.0 L Hct 36.7 MCV 106 H MCH 31.9 MCHC 30.0 L RDW Std Deviation 66.6 H Plt Count 228 Neut % (Auto) 75 Lymph % (Auto) 17 Blanco % (Auto) 6 Eos % (Auto) 0 Baso % (Auto) 0 Neut # (Auto) 9.1 H Lymph # (Auto) 2.0 Blanco # (Auto) 0.8 Eos # (Auto) 0.0 Baso # (Auto) 0.0 Immature Gran # (Auto) 0.16 H Absolute Nucleated RBC 0.00 Immature Gran % 1 H Nucleated RBC % 0 PT 14.6 H INR 1.4 H APTT 32.1 Fibrinogen D-Dimer Puncture Site ABG pH ABG pCO2 ABG pO2 ABG HCO3 ABG O2 Saturation ABG Base Excess VBG pH VBG pCO2 VBG pO2 VBG O2 Sat (Rohit) VBG Base Excess FiO2 Sodium 138 Potassium 9.5 H* Chloride 110 H Carbon Dioxide < 10.0 L* Anion Gap 18 H BUN 65 H Creatinine 6.2 H* Estim Creat Clear Calc Not Performed. eGFR 7 L* BUN/Creatinine Ratio 10 L Glucose [address] Glu mg/dL Hemoglobin A1c Calculated Osmolality 293 Lactic Acid Calcium 9.6 Corrected Calcium 10.2 H Phosphorus Magnesium Iron TIBC Iron Saturation Unsat Iron Binding Total Bilirubin 0.3 AST 22 ALT 8 L Alkaline Phosphatase 79 Lactate Dehydrogenase Troponin I 0.064 H* B-Natriuretic Peptide 2426 H* Total Protein 6.8 Albumin 3.3 L Globulin 3.5 Albumin/Globulin Ratio 0.9 L Vitamin B12 Folate Procalcitonin 0.19 TSH Free T4 04/30/25 04/30/25 04/30/25 16:32 20:47 22:23 WBC RBC Hgb Hct MCV MCH MCHC RDW Std Deviation Plt Count Neut % (Auto) Lymph % (Auto) Blanco % (Auto) Eos % (Auto) Baso % (Auto) Neut # (Auto) Lymph # (Auto) Blanco # (Auto) Eos # (Auto) Baso # (Auto) Immature Gran # (Auto) Absolute Nucleated RBC Immature Gran % Nucleated RBC % PT INR APTT Fibrinogen D-Dimer Puncture Site Right Radial ABG pH 7.50 H ABG pCO2 23 L ABG pO2 140 H ABG HCO3 18 L ABG O2 Saturation 100 H ABG Base Excess -4 L VBG pH 6.89 L VBG pCO2 25 L VBG pO2 56 VBG O2 Sat (Rohit) 73 L VBG Base Excess -27 L FiO2 28 Sodium 141 Potassium 3.7 D Chloride 100 Carbon Dioxide 21.4 Anion Gap 20 H BUN 30 H Creatinine 2.8 H D Estim Creat Clear Calc Not Performed. eGFR 18 L BUN/Creatinine Ratio 11 L Glucose [address] Glu mg/dL Hemoglobin A1c Calculated Osmolality 287 Lactic Acid 11.6 H* 8.2 H* Calcium 8.9 Corrected Calcium 9.5 Phosphorus 2.4 Magnesium 1.8 Iron TIBC Iron Saturation Unsat Iron Binding Total Bilirubin 0.4 AST 204 H ALT 116 H Alkaline Phosphatase 86 Lactate Dehydrogenase Troponin I B-Natriuretic Peptide Total Protein 6.4 Albumin 3.3 L Globulin 3.1 Albumin/Globulin Ratio 1.1 L Vitamin B12 Folate Procalcitonin TSH Free T4 04/30/25 05/01/25 05/01/25 23:34 01:38 02:58 WBC RBC Hgb Hct MCV MCH MCHC RDW Std Deviation Plt Count Neut % (Auto) Lymph % (Auto) Blanco % (Auto) Eos % (Auto) Baso % (Auto) Neut # (Auto) Lymph # (Auto) Blanco # (Auto) Eos # (Auto) Baso # (Auto) Immature Gran # (Auto) Absolute Nucleated RBC Immature Gran % Nucleated RBC % PT INR APTT Fibrinogen D-Dimer Puncture Site ABG pH ABG pCO2 ABG pO2 ABG HCO3 ABG O2 Saturation ABG Base Excess VBG pH VBG pCO2 VBG pO2 VBG O2 Sat (Rohit) VBG Base Excess FiO2 Sodium 142 Potassium 4.4 D Chloride 101 Carbon Dioxide 10.5 L* Anion Gap 31 H BUN 31 H Creatinine 3.4 H D Estim Creat Clear Calc 21.9 L eGFR 15 L BUN/Creatinine Ratio 9 L Glucose [address] Glu mg/dL Hemoglobin A1c Calculated Osmolality 291 Lactic Acid 13.5 H* 9.3 H* Calcium 8.9 Corrected Calcium 9.8 Phosphorus 2.9 Magnesium Iron TIBC Iron Saturation Unsat Iron Binding Total Bilirubin AST ALT Alkaline Phosphatase Lactate Dehydrogenase Troponin I B-Natriuretic Peptide Total Protein Albumin 2.9 L Globulin Albumin/Globulin Ratio Vitamin B12 Folate Procalcitonin TSH 2.39 Free T4 1.60 05/01/25 05/01/25 05/01/25 04:30 05:35 07:41 WBC 9.7 RBC 2.41 L Hgb 8.0 L D Hct 24.6 L D MCV 102 H MCH 33.2 MCHC 32.5 RDW Std Deviation 62.0 H Plt Count 120 L D Neut % (Auto) 84 H Lymph % (Auto) 8 L Blanco % (Auto) 8 Eos % (Auto) 0 Baso % (Auto) 0 Neut # (Auto) 8.1 H Lymph # (Auto) 0.7 L Blanco # (Auto) 0.8 Eos # (Auto) 0.0 Baso # (Auto) 0.0 Immature Gran # (Auto) 0.11 H Absolute Nucleated RBC 0.02 H Immature Gran % 1 H Nucleated RBC % 0 PT 15.9 H INR 1.5 H APTT 34.5 Fibrinogen 269 D-Dimer 633 H Puncture Site Right Radial ABG pH 7.51 H ABG pCO2 28 L ABG pO2 91 D ABG HCO3 22 ABG O2 Saturation 99 H ABG Base Excess -1 VBG pH VBG pCO2 VBG pO2 VBG O2 Sat (Rohit) VBG Base Excess FiO2 21 Sodium 142 Potassium 4.4 Chloride 101 Carbon Dioxide 14.3 L* Anion Gap 27 H BUN 32 H Creatinine 3.5 H Estim Creat Clear Calc 21.2 L eGFR 14 L* BUN/Creatinine Ratio 9 L Glucose [address] Glu mg/dL Cancelled Hemoglobin A1c Cancelled Calculated Osmolality 290 Lactic Acid Calcium 8.9 Corrected Calcium 9.9 Phosphorus 2.6 Magnesium 1.7 Iron 36 L TIBC 131 L Iron Saturation 27 Unsat Iron Binding 95 L Total Bilirubin 0.3 AST 440 H ALT 201 H Alkaline Phosphatase 54 D Lactate Dehydrogenase 621 H Troponin I B-Natriuretic Peptide Total Protein 5.1 L Albumin 2.8 L Globulin 2.3 Albumin/Globulin Ratio 1.2 Vitamin B12 340 Folate 6.62 Procalcitonin TSH Free T4 ABG Interpretation ABG results: 04/30/25 04/30/25 05/01/25 16:32 22:23 07:41 ABG pH 7.50 H 7.51 H ABG pCO2 23 L 28 L ABG pO2 140 H 91 D ABG HCO3 18 L 22 ABG O2 Saturation 100 H 99 H ABG Base Excess -4 L -1 VBG pH 6.89 L VBG pCO2 25 L VBG pO2 56 VBG Base Excess -27 L Quality Measures Quality Measures none Assessment & Plan Assessment Current Active Medications: Generic Name Dose Route Start Last Admin Trade Name Evansq PRN Reason Stop Dose Admin Acetaminophen 650 mg 04/30/25 16:49 Acetaminophen 325 Mg Tablet PO 05/30/25 16:48 Q4HR PRN PAIN SCALE 1-3 (mild Dextrose 25 ml 04/30/25 16:58 Dextrose 50%-Water Inj 50 Ml Syringe IV 05/30/25 16:57 Q15MIN PRN BG 50-70 responsive npo pt Dextrose 50 ml 04/30/25 16:58 Dextrose 50%-Water Inj 50 Ml Syringe IV 05/30/25 16:57 Q15MIN PRN BG <50 OR BG <70 & pt unresponsive Glucagon 1 mg 04/30/25 16:58 Glucagon Inj 1 Mg Vial IM Q15MIN PRN BG <70, and no IV access Heparin Sodium (Porcine) 5,000 unit 04/30/25 22:00 05/01/25 05:47 Heparin Sod Inj 5000 Unit/Ml Vial SC 05/14/25 21:59 5,000 unit Q8HR RIANNA Administration Heparin Sodium (Porcine) 3,000 unit 04/30/25 22:13 04/30/25 22:37 Heparin Sod Inj 1000 Unit/Ml Vial 10 Ml INDWELLCAT 05/14/25 22:12 3,000 unit X1 PRN Administration DIALYSIS Albumin Human 25 gm in 100 mls @ 100 mls/hr 04/30/25 20:35 04/30/25 22:14 Albuminar-25 Ivpb IV Infused PRN PRN Infusion DIALYSIS Norepinephrine/Dextrose 8 mg in 250 mls @ 8.888 mls/hr 04/30/25 21:25 05/01/25 09:58 Levophed In D5w 8mg/250ml IV 05/30/25 21:24 0.05 mcg/kg/min .Q24H PRN 8.888 mls/hr PER PROTOCOL Titration Protocol 0.05 MCG/KG/MIN Magnesium Sulfate 4 gm in 50 mls @ 12.5 mls/hr 05/01/25 08:10 05/01/25 08:29 Magnesium Sulfate Ivpb IV 05/01/25 12:09 12.5 mls/hr X1 ONE Administration Piperacillin Sod/Tazobactam 50 mls @ 100 mls/hr 05/01/25 08:45 Sod 2.25 gm/ Sodium Chloride IV 05/08/25 08:44 Q6HR [facility] Protocol Albumin Human 25 gm in 100 mls @ 100 mls/hr 05/01/25 10:45 Albuminar-25 Ivpb IV 05/01/25 11:44 X1 ONE Levothyroxine Sodium 50 mcg 05/02/25 06:00 Levothyroxine Sodium 25 Mcg Tablet PO 06/01/25 05:59 ACBR RIANNA Metoprolol Succinate 50 mg 05/01/25 09:00 05/01/25 08:29 Metoprolol Succinate Xl 25 Mg Tabcr PO 05/31/25 08:59 50 mg QDAY RIANNA Administration Plan 64-year-old female with a past medical history significant for a cerebrovascular accident, atrial fibrillation, heart failure with reduced ejection fraction (25- 30% in January 2023), chronic kidney disease, and hypothyroidism admitted to ICU for severe hyperkalemia requiring urgent hemodialysis. [employer] [facility]: #History of CVA Back at baseline Plan - Restart statin when LFTs at baseline #Acute encephalopathy, resolved 2/2 to metabolic CVS: #Septic Shock See ID section. #Atrial fibrillation with RVR Secondary to UTI Plan: - Treat septic shock with abx, fluids ?Keep potassium above 4 and magnesium above 2 at all times #History of reduced ejection fraction Last echo in January 2023 showed ejection fraction 25 to 30% BNP on admission 2426 Plan: ?Strict CHIQUIS's ?ECHO ordered PULM: #Respiratory alkalosis Likely in the setting of background pain pH 7.51, pCO2 28 Plan: - Restart patient's home norco dosing GI: #Ruled-out Bowel Ischemia Pain started two days ago before admission It is a dull, aching pain located primarily in the [id number] abdomen Accompanied by nausea and multiple episodes of non-bloody, non-bilious vomiting. Abdominal exam is soft, non-tender, non-distended, Bilirubin within normal limits AST and ALT elevated today R/O Plan: ? Monitor cliniclly with serial abdominal exams #Transaminitis Likely secondary to septic shock AST and ALT elevation, ALP normal, Bilirubin normal Plan - Treat shock - Follow AM labs RENAL: #ARIANA on chronic CKD Prerenal versus early ATN, not cardiorenal syndrome Patient not fluid overloaded, instead intravascularly depleted Patient received 750 mL of lactated Ringer's today Cr 3.5 -> 3.7 Plan: ?Nephrology consulted, Dr Landry, follow recommendations ?Second hemodialysis session today - Give LR fluid boluses if continue to be fluid responsive ?Renally dose medications ?Avoid nephrotoxic medication #High anion gap metabolic acidosis 2/2, improving #Lactic acidosis, improving Anion gap 16 Plan: ?Second hemodialysis session today ?Trend lactate every 4 hours - Next renal panel at 7pm ENDO #History of hypothyroidism TSH within normal limits Plan ? Restart levothyroxine starting tomorrow HEME #Leukocytosis Urine is the source of infection No fever Plan - Continue antibiotics #Macrocytic anemia Hemoglobin 8, MCV 102 Vitamin B12, folate level normal Iron panel Plan: ?Transfuse pRBC if hemoglobin less than 7 #Coagulopathy PT 15.9 INR 1.5 Fibrinogen 269 Platelets 120 Patient is on rivaroxaban 15 mg daily Not currently bleeding DIC panel negative Plan ?Monitor for signs of bleeding - Continue holding rivaroxaban ID #Septic Shock 2/2 to #Urinary tract infection UA: leuk positive, nitrite positive, WBC 611 Procal 0.19 LA 9.3 -> 3.8 -> 2.2 On Low dose Levophed Plan ? Follow urine culture ?Continue Zosyn - Continue Levophed to keep MAP >65 - Continue giving fluid boluses if responsive to fluids, received total of 750ml LR during the day #?Gram-positive cocci bacteremia 1 out of 2 bottles positive Could potentially be a contaminant Patient has ARIANA Plan: - Added Doxycline 100mg BID for MRSA coverage ?Vancomycin not started as it could further harm the kidneys ?Repeat blood cultures ordered, follow result Health Maintenance: Diet: N.p.o. GI prophylaxis: None at this time DVT prophylaxis: Heparin 5000 units every 8 hours Antibiotics: None at this time CODE STATUS: Full Disposition: ICU Case discussed with my attending Dr. Jesenia Urias MD PGY-1 Attending Provider Attestation/Addendum Patient seen and examined with above resident, Hermes Urias MD. I agree with the findings, assessment, and plan of care as document except for any differences below. Patient underwent hemodialysis yesterday with ability to transition off of sodium bicarb drip given continued improvement. She will continue to need hemodialysis in the short-term and we will determine long-term requirements in the coming days. Septic shock continues to improve with appropriate antibiotic regimen. We did add on doxycycline for MRSA coverage given gram-positive bacteremia. Patient should also be continued on Zosyn but most likely urinary tract as this etiology of her underlying sepsis. MRSA coverage will be adequate for community-acquired infections at this point though she is a longterm facility resident. Do not suspect pulmonary infection this cannot be completely excluded. Patient can be restarted on her levothyroxine tomorrow. Transaminitis renal dysfunction likely due to shock state which is improving on low-dose Levophed only now. Volume expansion, intravascular perspective is required though she does seem to have significant fluid overload in the setting of her low albumin/severe protein calorie malnutrition as well as dependent edema from residual left-sided weakness from CVA. She also has significant heart failure but at this point no evidence of pulmonary edema which allows for continued aggressive fluid boluses. Serial monitoring of IVC by bedside ultrasound shows significant collapsibility and rule drive ongoing fluid repletion. Hopefully, this will also help with her underlying RVR, remains in atrial fibrillation. Only using heparin subcu at this time should intervention to be required. Patient is on rivaroxaban chronically and this will need to likely be change if her renal function does not improve prior to discharge. Appreciate ongoing input from nephrology with no plans for fluid removal with HD today given continued pressor requirements. Total critical care time: I personally spent 45 minutes for review of physiologic parameters, directing plan of care today, coordination of care with other subspecialists. This is exclusive of time spent teaching of staff performing separate billable procedures. Patient remains at significant risk for further morbidity and mortality warranting close monitoring and care only available in the ICU. Critical care services for hypovolemic/septic shock, acute renal failure on CKD, gram-positive bacteremia, urinary tract infection, acute metabolic encephalopathy, heart failure with reduced ejection fraction, severe protein calorie malnutrition.
--- NOTE | 2025-05-01 11:46 | PC.SS ---
Gunsmith Apprentice (ELBA) Laura, along with BARBARA Esqueda, attempted to complete an assessment with the patient at the bedside; however, the patient was resting, and per the chart review, the patient is altered. The patient was BIBA with c/o abdominal pain, nausea, vomiting, and diarrhea. ELBA contacted via phone call, next of kin, Ben Whaley, , and completed assessment with him. Per Ben, the patient is a resident at [facility]. 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 The patient at baseline is alert and oriented and talks. Per Ben, the patient's PCP is Dr. Mejía. Per Ben, the discharge plan is to return to [facility]. The patient will need ambulance gurney transportation. Next of kin: Ben Whaley, Discharge plan: [facility]
[2025-05-01 12:48] LABS: Lactate (Lactic Acid) 3.8 mMol/L (0.4-2.0)
[2025-05-01] MEDS: PIPERACILLIN/TAZO 2.25GM INJ 2.25 GM in SODIUM CHLORIDE 0.9% (Popper) 50 ML IV ×2 (12:54→17:55)
[2025-05-01] MEDS: ALBUMIN HUMAN 25% IVPB 25 GM/100 ML BTL IV ×2 (12:54→17:07)
[2025-05-01] MEDS: SODIUM CHLORIDE 0.9% 250 ML 250 ML 999 ML IV (12:54)
[2025-05-01 13:20] LABS: Albumin, Serum 2.8 gm/dL (3.4-4.8); Anion Gap 16 (7-16); BUN/Creatinine Ratio 9 Ratio (12-20); Blood Urea Nitrogen 32 mg/dL (9-23); Calcium 8.6 mg/dL (8.3-10.6); Calcium (Corrected) 9.6 mg/dL (8.5-10.1); Carbon Dioxide 27.0 mMol/L (20.0-31.0); Chloride 98 mMol/L (98-107); Creatinine (Component) 3.7 mg/dL (0.6-1.3); Estimated Creatinine Clearance 20.1 mL/min (>60); Glucose 133 mg/dL (74-106); Osmolality,Calculated 290 (275-295); Phosphorous 2.7 mg/dL (2.4-5.1); Potassium 5.0 mMol/L (3.4-5.1); Sodium 141 mMol/L (136-145); eGFR 13 See Note
[2025-05-01] MEDS: RINGERS LACTATED 500 ML 500 ML 999 ML IV (14:08)
[2025-05-01 15:46] LABS: Reflex Lactate? Y
[2025-05-01 16:55] LABS: Lactic Acid, 3 HR 2.2 mMol/L (0.4-2.0)
[2025-05-01 17:00] LABS: Collection Type, Urine Catheter; Squamous Epithelial Cell,Urine 0 /hpf (0-5)
[2025-05-01] MEDS: HEPARIN SOD INJ 1000 UNIT/ML VIAL 10 ML 3000 UNIT INDWELLCAT (17:50)
[2025-05-01 17:51] LABS: Bacteria,Urine 1+; Bilirubin,Urine Negative (Negative); Blood,Urine 3+ (Negative); Glucose, Urine Negative (Negative); Ketones,Urine 1+ (Negative); Leukocyte Esterase,Urine Positive (Negative); Nitrite,Urine Positive (Negative); PH,Urine 6.5 (5.0-7.0); Protein,Urine 2+ (Neg - Trace); RBC,Urine 52 /hpf (0-3); Specific Gravity,Urine 1.017 (1.001-1.035); Urobilinogen,Urine Negative mg/dL (0.0-1.0); WBC,Urine 611 /hpf (0-5)
[2025-05-01 17:53] LABS: Clarity,Urine Turbid (Clear/Hazy); Color,Urine Yellow (Lt Yel-Yel); Culture Indicated,Urine Yes
[2025-05-01 19:22] LABS: Lactate (Lactic Acid) 1.8 mMol/L (0.4-2.0)
[2025-05-01 19:55] LABS: Albumin, Serum 3.3 gm/dL (3.4-4.8); Anion Gap 12 (7-16); BUN/Creatinine Ratio 6 Ratio (12-20); Blood Urea Nitrogen 11 mg/dL (9-23); Calcium 8.3 mg/dL (8.3-10.6); Calcium (Corrected) 8.9 mg/dL (8.5-10.1); Carbon Dioxide 29.6 mMol/L (20.0-31.0); Chloride 101 mMol/L (98-107); Creatinine (Component) 1.8 mg/dL (0.6-1.3); Estimated Creatinine Clearance 41.3 mL/min (>60); Glucose 110 mg/dL (74-106); Osmolality,Calculated 285 (275-295); Phosphorous 1.8 mg/dL (2.4-5.1); Potassium 3.3 mMol/L (3.4-5.1); Sodium 143 mMol/L (136-145); eGFR 31 See Note
[2025-05-01] MEDS: POT PHOS 15 mMol in NS 250 ML 15 MMOL/250 ML BAG 62.5 MMOL IV (22:14)
[2025-05-01] MEDS: POTASSIUM CHLORIDE 10% 20 MEQ/15 ML UDC 40 MEQ PO (22:17)
[2025-05-01] MEDS: DOXYCYCLINE INJ 100 MG in SODIUM CHLORIDE 0.9% (POP) 100 ML IV (22:18)
[2025-05-01 23:10] LABS: Hepatitis A Antibody IgM Non Reactive (Non React); Hepatitis B Core Antibody IgM Non Reactive (Non React); Hepatitis B Surface Ab NonReact(Not Immune) (Immune); Hepatitis B Surface Antigen Non Reactive (Non React); Hepatitis C Antibody Non Reactive (Non React)
[2025-05-01 23:41] LABS: Lactate (Lactic Acid) 1.5 mMol/L (0.4-2.0)
[2025-05-02] VITALS (174 sets, daily range): BP systolic 58–140; BP diastolic 39–98; PULSE 74–143; RESP 0–99; TEMP 35.6–36.9; O2SAT 89–100; BMI 28.1
[2025-05-02] MEDS: PIPERACILLIN/TAZO 2.25GM INJ 2.25 GM in SODIUM CHLORIDE 0.9% (Popper) 50 ML IV ×4 (01:30→19:00)
[2025-05-02] MEDS: POT PHOS 15 mMol in NS 250 ML 15 MMOL/250 ML BAG 62.5 MMOL IV (01:56)
[2025-05-02 05:47] LABS: Basophils # (Auto) 0.0 Thou/mm3 (0.0-0.2); Basophils % (Auto) 0 % (0-2.5); Eosinophils # (Auto) 0.1 Thou/mm3 (0.0-0.5); Eosinophils % (Auto) 1 % (0-10); Hematocrit 23.5 % (36.0-46.0); Immature Granulocytes Auto 0.07 Thou/mm3 (0.00-0.00); Lymphocytes # (Auto) 1.7 Thou/mm3 (1.0-4.8); Lymphocytes % (Auto) 16 % (10-50); Mean Corpuscular HGB Conc 32.8 g/dl (31.0-37.0); Mean Corpuscular Hemoglobin 32.8 pg (25.0-35.0); Mean Corpuscular Volume 100 fL (80-100); Monocytes # (Auto) 0.8 Thou/mm3 (0.0-0.8); Monocytes % (Auto) 8 % (0-12); Neutrophils # (Auto) 7.8 Thou/mm3 (1.8-7.7); Neutrophils % (Auto) 74 % (37-80); Nucleated Red Blood Cell # 0.04 Thou/mm3 (0.00-0.00); Nucleated Red Blood Cell % 0 /100 WBC (0); Platelet Count 127 Thou/mm3 (140-440); RDW Standard Deviation 62.8 fL (36.4-46.3); Red Blood Count 2.35 Miln/mm3 (4.00-5.20); White Blood Count 10.5 Thou/mm3 (3.6-11.0)
[2025-05-02] MEDS: HEPARIN SOD INJ 5000 UNIT/ML VIAL SC (05:47)
[2025-05-02] MEDS: LEVOTHYROXINE SODIUM 25 MCG TABLET 50 MCG PO (05:47)
[2025-05-02 05:57] LABS: Hemoglobin 7.7 g/dL (12.0-16.0)
[2025-05-02 06:35] LABS: Alanine Aminotransferase 174 U/L (10-49); Albumin, Serum 3.2 gm/dL (3.4-4.8); Albumin/Globulin Ratio 1.6 (1.2-2.2); Alkaline Phosphatase 53 U/L (46-116); Anion Gap 11 (7-16); Aspartate Amino Transferase 205 U/L (0-34); BUN/Creatinine Ratio 7 Ratio (12-20); Bilirubin,Total 0.4 mg/dL (0.3-1.2); Blood Urea Nitrogen 14 mg/dL (9-23); Calcium 8.4 mg/dL (8.3-10.6); Calcium (Corrected) 9.0 mg/dL (8.5-10.1); Carbon Dioxide 29.7 mMol/L (20.0-31.0); Chloride 102 mMol/L (98-107); Creatinine (Component) 2.1 mg/dL (0.6-1.3); Estimated Creatinine Clearance 35.3 mL/min (>60); Globulin 2.0 gm/dL (2.3-3.5); Glucose 114 mg/dL (74-106); Magnesium 3.2 mg/dL (1.6-2.6); Osmolality,Calculated 286 (275-295); Potassium 4.0 mMol/L (3.4-5.1); Sodium 143 mMol/L (136-145); Total Protein 5.2 gm/dL (5.7-8.2); eGFR 26 See Note
[2025-05-02 08:12] LABS: Path Review Blood Smear Sent to Pathologist
[2025-05-02] MEDS: DOXYCYCLINE INJ 100 MG in SODIUM CHLORIDE 0.9% (POP) 100 ML IV ×2 (09:06→20:55)
--- NOTE | 2025-05-02 11:16 | ESPR_ITS ---
<Statement entered by Jonatan Kimble MD - 05/03/25 07:29> I personally supervised the PGY-1 resident, Dr. Beasley, examined the patient. I agree with the documentation and plan with the exceptions listed below. Patient is a 64-year-old female with past medical history significant of CVA, atrial fibrillation on Xarelto, HFrEF [25 to 30%], CKD and hypothyroidism admitted to the ICU for symptomatic hyperkalemia of 9.5 with EKG changes requiring emergent hemodialysis. Patient was diagnosed initially with septic shock secondary to UTI which led to ATN resulting in hyperkalemia she had 2 sessions of dialysis. For patient's UTI, she is on renally dosed Zosyn and doxycycline. Initially patient's shock was attributed to sepsis, however at this time hypovolemia and possible cardiogenic etiology seem more likely. Today Levophed was weaned off and patient's MAP maintained in the 70s throughout the day, until 2 PM when it dropped to the 50s. Bedside ultrasound was done and IVC demonstrated >50% collapsibility, a 1 L Ringer's lactate IVF bolus was given. Patient's MAP still did not improve, Levophed had to be resumed. Nephrology, Dr Landry recommended a.m. cortisol and possibly starting IV steroids tomorrow as adrenal insufficiency may be a possible cause of the hypotension. She also recommended a Urology consultation for Staghorn Calculi. Plan of care discussed with Attending Dr. Jesenia Kimble MD PGY 2 Disclaimer: This note was dictated by speech recognition. Minor errors in prune washer may be present due to voice recognition software. Documentation for date of: 05/02/25 Subjective Subjective Interval history: Note history at this time limited as patient is altered and majority of the history is from chart review 64-year-old female with a past medical history significant for a cerebrovascular accident, atrial fibrillation, heart failure with reduced ejection fraction(25- 30% in January 2023), chronic kidney disease, and hypothyroidism presents from a group home facility for evaluation of abdominal pain. The pain started two days ago and has been constant since. It is a dull, aching pain located primarily in the [id number] abdomen, and the patient rates its severity as moderate. The pain is accompanied by nausea and multiple episodes of non-bloody, non-bilious vomiting. She also reports feeling anxious and has verbalized a fear of . She denies any recent illness, fevers, chills, chest pain, shortness of breath, dysuria, diarrhea, or changes in bowel habits. ED course: Initial vitals include temperature 100.4, respiratory rate 19, pulse 74, blood pressure 157/117, O2 saturations 99% on 4 L of nasal cannula. EKG showed atrial fibrillation with RVR and wide-complex tachycardia. Notable labs include potassium 9.5, bicarb less than 10, anion gap 18, creatinine 6.2, lactic acid 11.6, corrected calcium 10.2, BNP 2426, Pro-Matias 0.19. VBG pH 6.89. Coagulation studies showed PT 14.6, INR 1.4. CBC showed WBC 12.1, hemoglobin 11, MCV 100.6. Patient was given 1 L of normal saline. Patient received calcium chloride 10% x 1, D50 push x 2, bicarb 50 mEq x 1, sodium bicarb drip started albuterol 5 mg inhaler x 2, IV insulin 5 units x 1, 10 units x 1. In ED urgent hemodialysis catheter was placed through the left femoral vein. Dr Landry has been contacted regarding starting hemodialysis urgently. Past medical history: As stated above. Past surgical history: Unobtainable. Social history: Unobtainable. Patient admitted to ICU following wide-complex tachycardia in the setting of severe hyperkalemia. Admitted for close monitoring. Interval History 05/01/25: Patient's mentation improved since yesterday after hemodialysis session. Bedside ultrasound was done, it was found that the patient is intravascularly depleted. Total o 750 mL of LR was given. Bicarb level improved today to 27. Bicarb drip was stopped. Blood culture from yesterday was positive for GPC. Patient produced about 100ml of urine today and it was suspicious for infection. Sent for urinalysis and urine culture. UA showed UTI. Patient continues to be on Zosyn renally dosed. Doxycline added since 09/02 blood culture from yesterday was positive GPC. Sample may be a contaminant so repeated blood culture today. CT abdomen angiogram was done there were no evidence of ischemic bowel. There is chronic extensive left staghorn calculi. Patient requires Levophed low-dose to maintain a MAP greater than 65. 05/02/25: Patient was given 500 cc's of fluid, had their electrolytes repleted, and started on IV doxycycline 100 mg BID overnight. Patient seen and examined at bedside; they report feeling generally well today with no new complaints or concerns. Patient is currently receiving renally dosed Zosyn and doxycycline for her UTI. Initially, patient's shock was attributed to sepsis; however, at this time, hypovolemia and possible cardiogenic etiology (CHF w/ EF of 20-25%) seem more likely. Today, Levophed was weaned off and patient's MAP maintained in the 70s throughout the day, until 2 PM when it dropped to the 50s. Bedside ultrasound was done and IVC demonstrated >50% collapsibility; a 1 L Ringer's lactate IVF bolus was given. Patient's MAP still did not improve and Levophed had to be resumed. Nephrology, Dr Landry, recommended AM cortisol and possibly starting IV steroids tomorrow as adrenal insufficiency may be a possible cause of the hypotension. She also recommended a Urology consultation for possible lithotripsy for left staghorn calculi. Exam Vital Signs Temp Pulse Resp BP Pulse Ox O2 Del Method O2 Flow Rate 96.2 F L 90 24 H 86/54 L 99 Room Air 1 05/02/25 10:00 05/02/25 10:16 05/02/25 10:16 05/02/25 10:16 05/02/25 10:16 05/01/25 12:00 05/01/25 02:34 FiO2 96 05/01/25 14:45 Narrative Exam General: Alert and oriented x 3. Not in distress, following commands. HEENT: Atraumatic. PERRL. EOMI. Neck supple. CVS: S1-S2. Irregular rhythm. A-fib with RVR RESP: Decreased air entry bilaterally. No crackles heard. GI: Soft, nontender. Bowel sounds heard. No abdominal distention Skin: Warm, dry, intact. Sacral decubitus ulcer that is healing. Left posterior thigh excoriation, left heel eschar, left leg has more edema than right (left leg 3+ and right leg 2+), left distal leg and foot with slightly erythema) Neuro: Limited at this time. Objective Labs 05/09/25 04:55 05/09/25 04:55 Labs: Laboratory Results - last 24 hr 04/30/25 04/30/25 04/30/25 16:00 16:00 16:00 WBC RBC Hgb Hct MCV MCH MCHC RDW Std Deviation Plt Count Neut % (Auto) Lymph % (Auto) [place] % (Auto) Eos % (Auto) Baso % (Auto) Neut # (Auto) Lymph # (Auto) [place] # (Auto) Eos # (Auto) Baso # (Auto) Immature Gran # (Auto) Absolute Nucleated RBC Immature Gran % Nucleated RBC % Smear Path Review Sodium Potassium Chloride Carbon Dioxide Anion Gap BUN Creatinine Estim Creat Clear Calc eGFR BUN/Creatinine Ratio Glucose Calculated Osmolality Lactic Acid Calcium Corrected Calcium Phosphorus Magnesium Total Bilirubin AST ALT Alkaline Phosphatase Total Protein Albumin Globulin Albumin/Globulin Ratio Ur Collection Type Cancelled Catheter Urine Color Cancelled Yellow Urine Clarity Cancelled Urine pH Ur Specific [place] Urine Protein Urine Glucose (UA) Urine Ketones Urine Blood Urine Nitrite Urine Bilirubin Urine Urobilinogen (Auto) Ur Leukocyte Esterase Urine RBC Urine WBC Ur Squamous Epith Cells Ur Transition Epith Cell Ur Renal Epithelial Cell Calcium Carbonate Cryst Calcium Phosphate Cryst Calcium Oxalate Crystal Leucine Crystals Cystine Crystals Uric Acid Crystals Triple Phos Crystals Tyrosine Crystals Amorphous Crystals Urine Bacteria Cellular Casts Epithelial Casts Fatty Casts Hyaline Casts Granular Casts Waxy Casts Broad Casts RBC Casts Urine Mucus Urine Trichomonas Ur Yeast w Hyphae Urine Yeast (Budding) Urine Sperm Ur Oval Fat Bodies Ur Culture Indicated? Hepatitis A IgM Ab Hep Bs Antigen Hep Bs Antibody Hep B Core IgM Ab Hepatitis C Antibody 04/30/25 04/30/25 04/30/25 16:00 16:00 16:00 WBC RBC Hgb Hct MCV MCH MCHC RDW Std Deviation Plt Count Neut % (Auto) Lymph % (Auto) [place] % (Auto) Eos % (Auto) Baso % (Auto) Neut # (Auto) Lymph # (Auto) [place] # (Auto) Eos # (Auto) Baso # (Auto) Immature Gran # (Auto) Absolute Nucleated RBC Immature Gran % Nucleated RBC % Smear Path Review Sodium Potassium Chloride Carbon Dioxide Anion Gap BUN Creatinine Estim Creat Clear Calc eGFR BUN/Creatinine Ratio Glucose Calculated Osmolality Lactic Acid Calcium Corrected Calcium Phosphorus Magnesium Total Bilirubin AST ALT Alkaline Phosphatase Total Protein Albumin Globulin Albumin/Globulin Ratio Ur Collection Type Urine Color Urine Clarity Turbid A Urine pH Cancelled 6.5 Ur Specific [place] Cancelled 1.017 Urine Protein Cancelled Urine Glucose (UA) Urine Ketones Urine Blood Urine Nitrite Urine Bilirubin Urine Urobilinogen (Auto) Ur Leukocyte Esterase Urine RBC Urine WBC Ur Squamous Epith Cells Ur Transition Epith Cell Ur Renal Epithelial Cell Calcium Carbonate Cryst Calcium Phosphate Cryst Calcium Oxalate Crystal Leucine Crystals Cystine Crystals Uric Acid Crystals Triple Phos Crystals Tyrosine Crystals Amorphous Crystals Urine Bacteria Cellular Casts Epithelial Casts Fatty Casts Hyaline Casts Granular Casts Waxy Casts Broad Casts RBC Casts Urine Mucus Urine Trichomonas Ur Yeast w Hyphae Urine Yeast (Budding) Urine Sperm Ur Oval Fat Bodies Ur Culture Indicated? Hepatitis A IgM Ab Hep Bs Antigen Hep Bs Antibody Hep B Core IgM Ab Hepatitis C Antibody 04/30/25 04/30/25 04/30/25 16:00 16:00 16:00 WBC RBC Hgb Hct MCV MCH MCHC RDW Std Deviation Plt Count Neut % (Auto) Lymph % (Auto) [place] % (Auto) Eos % (Auto) Baso % (Auto) Neut # (Auto) Lymph # (Auto) [place] # (Auto) Eos # (Auto) Baso # (Auto) Immature Gran # (Auto) Absolute Nucleated RBC Immature Gran % Nucleated RBC % Smear Path Review Sodium Potassium Chloride Carbon Dioxide Anion Gap BUN Creatinine Estim Creat Clear Calc eGFR BUN/Creatinine Ratio Glucose Calculated Osmolality Lactic Acid Calcium Corrected Calcium Phosphorus Magnesium Total Bilirubin AST ALT Alkaline Phosphatase Total Protein Albumin Globulin Albumin/Globulin Ratio Ur Collection Type Urine Color Urine Clarity Urine pH Ur Specific [place] Urine Protein 2+ A Urine Glucose (UA) Cancelled Negative Urine Ketones Cancelled 1+ A Urine Blood Cancelled Urine Nitrite Urine Bilirubin Urine Urobilinogen (Auto) Ur Leukocyte Esterase Urine RBC Urine WBC Ur Squamous Epith Cells Ur Transition Epith Cell Ur Renal Epithelial Cell Calcium Carbonate Cryst Calcium Phosphate Cryst Calcium Oxalate Crystal Leucine Crystals Cystine Crystals Uric Acid Crystals Triple Phos Crystals Tyrosine Crystals Amorphous Crystals Urine Bacteria Cellular Casts Epithelial Casts Fatty Casts Hyaline Casts Granular Casts Waxy Casts Broad Casts RBC Casts Urine Mucus Urine Trichomonas Ur Yeast w Hyphae Urine Yeast (Budding) Urine Sperm Ur Oval Fat Bodies Ur Culture Indicated? Hepatitis A IgM Ab Hep Bs Antigen Hep Bs Antibody Hep B Core IgM Ab Hepatitis C Antibody 04/30/25 04/30/25 04/30/25 16:00 16:00 16:00 WBC RBC Hgb Hct MCV MCH MCHC RDW Std Deviation Plt Count Neut % (Auto) Lymph % (Auto) [place] % (Auto) Eos % (Auto) Baso % (Auto) Neut # (Auto) Lymph # (Auto) [place] # (Auto) Eos # (Auto) Baso # (Auto) Immature Gran # (Auto) Absolute Nucleated RBC Immature Gran % Nucleated RBC % Smear Path Review Sodium Potassium Chloride Carbon Dioxide Anion Gap BUN Creatinine Estim Creat Clear Calc eGFR BUN/Creatinine Ratio Glucose Calculated Osmolality Lactic Acid Calcium Corrected Calcium Phosphorus Magnesium Total Bilirubin AST ALT Alkaline Phosphatase Total Protein Albumin Globulin Albumin/Globulin Ratio Ur Collection Type Urine Color Urine Clarity Urine pH Ur Specific [place] Urine Protein Urine Glucose (UA) Urine Ketones Urine Blood 3+ A Urine Nitrite Cancelled Positive Urine Bilirubin Cancelled Negative Urine Urobilinogen (Auto) Cancelled Ur Leukocyte Esterase Urine RBC Urine WBC Ur Squamous Epith Cells Ur Transition Epith Cell Ur Renal Epithelial Cell Calcium Carbonate Cryst Calcium Phosphate Cryst Calcium Oxalate Crystal Leucine Crystals Cystine Crystals Uric Acid Crystals Triple Phos Crystals Tyrosine Crystals Amorphous Crystals Urine Bacteria Cellular Casts Epithelial Casts Fatty Casts Hyaline Casts Granular Casts Waxy Casts Broad Casts RBC Casts Urine Mucus Urine Trichomonas Ur Yeast w Hyphae Urine Yeast (Budding) Urine Sperm Ur Oval Fat Bodies Ur Culture Indicated? Hepatitis A IgM Ab Hep Bs Antigen Hep Bs Antibody Hep B Core IgM Ab Hepatitis C Antibody 04/30/25 04/30/25 04/30/25 16:00 16:00 16:00 WBC RBC Hgb Hct MCV MCH MCHC RDW Std Deviation Plt Count Neut % (Auto) Lymph % (Auto) [place] % (Auto) Eos % (Auto) Baso % (Auto) Neut # (Auto) Lymph # (Auto) [place] # (Auto) Eos # (Auto) Baso # (Auto) Immature Gran # (Auto) Absolute Nucleated RBC Immature Gran % Nucleated RBC % Smear Path Review Sodium Potassium Chloride Carbon Dioxide Anion Gap BUN Creatinine Estim Creat Clear Calc eGFR BUN/Creatinine Ratio Glucose Calculated Osmolality Lactic Acid Calcium Corrected Calcium Phosphorus Magnesium Total Bilirubin AST ALT Alkaline Phosphatase Total Protein Albumin Globulin Albumin/Globulin Ratio Ur Collection Type Urine Color Urine Clarity Urine pH Ur Specific [place] Urine Protein Urine Glucose (UA) Urine Ketones Urine Blood Urine Nitrite Urine Bilirubin Urine Urobilinogen (Auto) Negative Ur Leukocyte Esterase Cancelled Positive Urine RBC Cancelled 52 H Urine WBC Cancelled Ur Squamous Epith Cells Ur Transition Epith Cell Ur Renal Epithelial Cell Calcium Carbonate Cryst Calcium Phosphate Cryst Calcium Oxalate Crystal Leucine Crystals Cystine Crystals Uric Acid Crystals Triple Phos Crystals Tyrosine Crystals Amorphous Crystals Urine Bacteria Cellular Casts Epithelial Casts Fatty Casts Hyaline Casts Granular Casts Waxy Casts Broad Casts RBC Casts Urine Mucus Urine Trichomonas Ur Yeast w Hyphae Urine Yeast (Budding) Urine Sperm Ur Oval Fat Bodies Ur Culture Indicated? Hepatitis A IgM Ab Hep Bs Antigen Hep Bs Antibody Hep B Core IgM Ab Hepatitis C Antibody 04/30/25 04/30/25 04/30/25 16:00 16:00 16:00 WBC RBC Hgb Hct MCV MCH MCHC RDW Std Deviation Plt Count Neut % (Auto) Lymph % (Auto) [place] % (Auto) Eos % (Auto) Baso % (Auto) Neut # (Auto) Lymph # (Auto) [place] # (Auto) Eos # (Auto) Baso # (Auto) Immature Gran # (Auto) Absolute Nucleated RBC Immature Gran % Nucleated RBC % Smear Path Review Sodium Potassium Chloride Carbon Dioxide Anion Gap BUN Creatinine Estim Creat Clear Calc eGFR BUN/Creatinine Ratio Glucose Calculated Osmolality Lactic Acid Calcium Corrected Calcium Phosphorus Magnesium Total Bilirubin AST ALT Alkaline Phosphatase Total Protein Albumin Globulin Albumin/Globulin Ratio Ur Collection Type Urine Color Urine Clarity Urine pH Ur Specific [place] Urine Protein Urine Glucose (UA) Urine Ketones Urine Blood Urine Nitrite Urine Bilirubin Urine Urobilinogen (Auto) Ur Leukocyte Esterase Urine RBC Urine WBC 611 H Ur Squamous Epith Cells Cancelled 0 Ur Transition Epith Cell Cancelled Ur Renal Epithelial Cell Cancelled Calcium Carbonate Cryst Cancelled Calcium Phosphate Cryst Cancelled Calcium Oxalate Crystal Cancelled Leucine Crystals Cancelled Cystine Crystals Cancelled Uric Acid Crystals Cancelled Triple Phos Crystals Cancelled Tyrosine Crystals Cancelled Amorphous Crystals Cancelled Urine Bacteria Cancelled 1+ A Cellular Casts Cancelled Epithelial Casts Cancelled Fatty Casts Cancelled Hyaline Casts Cancelled Granular Casts Cancelled Waxy Casts Cancelled Broad Casts Cancelled RBC Casts Cancelled Urine Mucus Cancelled Urine Trichomonas Cancelled Ur Yeast w Hyphae Cancelled Urine Yeast (Budding) Cancelled Urine Sperm Cancelled Ur Oval Fat Bodies Cancelled Ur Culture Indicated? Yes Hepatitis A IgM Ab Hep Bs Antigen Hep Bs Antibody Hep B Core IgM Ab Hepatitis C Antibody 05/01/25 05/01/25 05/01/25 05:35 12:40 16:50 WBC RBC Hgb Hct MCV MCH MCHC RDW Std Deviation Plt Count Neut % (Auto) Lymph % (Auto) [place] % (Auto) Eos % (Auto) Baso % (Auto) Neut # (Auto) Lymph # (Auto) [place] # (Auto) Eos # (Auto) Baso # (Auto) Immature Gran # (Auto) Absolute Nucleated RBC Immature Gran % Nucleated RBC % Smear Path Review Sodium 141 Potassium 5.0 D Chloride 98 Carbon Dioxide 27.0 Anion Gap 16 BUN 32 H Creatinine 3.7 H Estim Creat Clear Calc 20.1 L eGFR 13 L* BUN/Creatinine Ratio 9 L Glucose 133 H Calculated Osmolality 290 Lactic Acid 3.8 H 2.2 H Calcium 8.6 Corrected Calcium 9.6 Phosphorus 2.7 Magnesium Total Bilirubin AST ALT Alkaline Phosphatase Total Protein Albumin 2.8 L Globulin Albumin/Globulin Ratio Ur Collection Type Urine Color Urine Clarity Urine pH Ur Specific [place] Urine Protein Urine Glucose (UA) Urine Ketones Urine Blood Urine Nitrite Urine Bilirubin Urine Urobilinogen (Auto) Ur Leukocyte Esterase Urine RBC Urine WBC Ur Squamous Epith Cells Ur Transition Epith Cell Ur Renal Epithelial Cell Calcium Carbonate Cryst Calcium Phosphate Cryst Calcium Oxalate Crystal Leucine Crystals Cystine Crystals Uric Acid Crystals Triple Phos Crystals Tyrosine Crystals Amorphous Crystals Urine Bacteria Cellular Casts Epithelial Casts Fatty Casts Hyaline Casts Granular Casts Waxy Casts Broad Casts RBC Casts Urine Mucus Urine Trichomonas Ur Yeast w Hyphae Urine Yeast (Budding) Urine Sperm Ur Oval Fat Bodies Ur Culture Indicated? Hepatitis A IgM Ab Non Reactive Hep Bs Antigen Non Reactive Hep Bs Antibody NonReact(Not Immune) L Hep B Core IgM Ab Non Reactive Hepatitis C Antibody Non Reactive 05/01/25 05/01/25 05/02/25 18:55 23:31 05:18 WBC 10.5 RBC 2.35 L Hgb 7.7 L Hct 23.5 L MCV 100 MCH 32.8 MCHC 32.8 RDW Std Deviation 62.8 H Plt Count 127 L Neut % (Auto) 74 Lymph % (Auto) 16 [place] % (Auto) 8 Eos % (Auto) 1 Baso % (Auto) 0 Neut # (Auto) 7.8 H Lymph # (Auto) 1.7 [place] # (Auto) 0.8 Eos # (Auto) 0.1 Baso # (Auto) 0.0 Immature Gran # (Auto) 0.07 H Absolute Nucleated RBC 0.04 H Immature Gran % 1 H Nucleated RBC % 0 Smear Path Review Sent to Pathologist Sodium 143 143 Potassium 3.3 L D 4.0 D Chloride 101 102 Carbon Dioxide 29.6 29.7 Anion Gap 12 11 BUN 11 14 Creatinine 1.8 H D 2.1 H Estim Creat Clear Calc 41.3 L 35.3 L eGFR 31 L 26 L BUN/Creatinine Ratio 6 L 7 L Glucose 110 H 114 H Calculated Osmolality 285 286 Lactic Acid 1.8 1.5 Calcium 8.3 8.4 Corrected Calcium 8.9 9.0 Phosphorus 1.8 L Magnesium 3.2 H Total Bilirubin 0.4 AST 205 H ALT 174 H Alkaline Phosphatase 53 Total Protein 5.2 L Albumin 3.3 L D 3.2 L Globulin 2.0 L Albumin/Globulin Ratio 1.6 Ur Collection Type Urine Color Urine Clarity Urine pH Ur Specific [place] Urine Protein Urine Glucose (UA) Urine Ketones Urine Blood Urine Nitrite Urine Bilirubin Urine Urobilinogen (Auto) Ur Leukocyte Esterase Urine RBC Urine WBC Ur Squamous Epith Cells Ur Transition Epith Cell Ur Renal Epithelial Cell Calcium Carbonate Cryst Calcium Phosphate Cryst Calcium Oxalate Crystal Leucine Crystals Cystine Crystals Uric Acid Crystals Triple Phos Crystals Tyrosine Crystals Amorphous Crystals Urine Bacteria Cellular Casts Epithelial Casts Fatty Casts Hyaline Casts Granular Casts Waxy Casts Broad Casts RBC Casts Urine Mucus Urine Trichomonas Ur Yeast w Hyphae Urine Yeast (Budding) Urine Sperm Ur Oval Fat Bodies Ur Culture Indicated? Hepatitis A IgM Ab Hep Bs Antigen Hep Bs Antibody Hep B Core IgM Ab Hepatitis C Antibody ABG Interpretation ABG results: 04/30/25 04/30/25 05/01/25 16:32 22:23 07:41 ABG pH 7.50 H 7.51 H ABG pCO2 23 L 28 L ABG pO2 140 H 91 D ABG HCO3 18 L 22 ABG O2 Saturation 100 H 99 H ABG Base Excess -4 L -1 VBG pH 6.89 L VBG pCO2 25 L VBG pO2 56 VBG Base Excess -27 L Quality Measures Quality Measures none Assessment & Plan Assessment Current Active Medications: Generic Name Dose Route Start Last Admin Trade Name Freq PRN Reason Stop Dose Admin Acetaminophen 650 mg 04/30/25 16:49 Acetaminophen 325 Mg Tablet PO 05/30/25 16:48 Q4HR PRN PAIN SCALE 1-3 (mild Dextrose 25 ml 04/30/25 16:58 Dextrose 50%-Water Inj 50 Ml Syringe IV 05/30/25 16:57 Q15MIN PRN BG 50-70 responsive npo pt Dextrose 50 ml 04/30/25 16:58 Dextrose 50%-Water Inj 50 Ml Syringe IV 05/30/25 16:57 Q15MIN PRN BG <50 OR BG <70 & pt unresponsive Glucagon 1 mg 04/30/25 16:58 Glucagon Inj 1 Mg Vial IM Q15MIN PRN BG <70, and no IV access Heparin Sodium (Porcine) 3,000 unit 04/30/25 22:13 05/01/25 17:50 Heparin Sod Inj 1000 Unit/Ml Vial 10 Ml INDWELLCAT 05/14/25 22:12 3,000 unit X1 PRN Administration DIALYSIS Heparin Sodium (Porcine) 4,000 unit 05/02/25 10:56 Heparin Sod Inj 5000 Unit/Ml Vial IV 05/02/25 10:57 X1 ONE Protocol Albumin Human 25 gm in 100 mls @ 100 mls/hr 04/30/25 20:35 05/01/25 17:52 Albuminar-25 Ivpb IV Infused PRN PRN Infusion DIALYSIS Norepinephrine/Dextrose 8 mg in 250 mls @ 8.888 mls/hr 04/30/25 21:25 05/02/25 09:39 Levophed In D5w 8mg/250ml IV 05/30/25 21:24 0 mcg/kg/min .Q24H PRN 0 mls/hr PER PROTOCOL Titration Protocol 0.05 MCG/KG/MIN Piperacillin Sod/Tazobactam 50 mls @ 100 mls/hr 05/01/25 18:00 05/02/25 05:47 Sod 2.25 gm/ Sodium Chloride IV 05/08/25 17:59 100 mls/hr Q6HR RIANNA Administration Doxycycline Hyclate 100 mg/ 100 mls @ 100 mls/hr 05/01/25 22:00 05/02/25 09:06 Sodium Chloride IV 05/08/25 21:59 100 mls/hr BID RIANNA Administration Heparin Sodium/Dextrose 25,000 unit in 250 mls @ 10 mls/hr 05/02/25 11:00 Heparin In D5w Ivpb IV 05/16/25 10:59 .Q24H RIANNA Protocol 10.616 UNITS/KG/HR Levothyroxine Sodium 50 mcg 05/02/25 06:00 05/02/25 05:47 Levothyroxine Sodium 25 Mcg Tablet PO 06/01/25 05:59 50 mcg ACBR RIANNA Administration Metoprolol Succinate 50 mg 05/01/25 09:00 05/02/25 08:05 Metoprolol Succinate Xl 25 Mg Tabcr PO 05/31/25 08:59 Not Given QDAY RIANNA Plan 64-year-old female with a past medical history significant for a cerebrovascular accident, atrial fibrillation, heart failure with reduced ejection fraction(25-30% in January 2023), chronic kidney disease, and hypothyroidism presents from a group home facility for evaluation of abdominal pain. Patient admitted to ICU following wide-complex tachycardia in the setting of severe hyperkalemia. Admitted for close monitoring. Patient seen and examined at bedside; they report feeling generally well today with no new complaints or concerns. Patient is currently receiving renally dosed Zosyn and doxycycline for her UTI. Initially, patient's shock was attributed to sepsis; however, at this time, hypovolemia and possible cardiogenic etiology (CHF w/ EF of 20-25%) seem more likely. Today, Levophed was weaned off and patient's MAP maintained in the 70s throughout the day, until 2 PM when it dropped to the 50s. Bedside ultrasound was done and IVC demonstrated >50% collapsibility; a 1 L Ringer's lactate IVF bolus was given. Patient's MAP still did not improve and Levophed had to be resumed. Nephrology, Dr Landry, recommended AM cortisol and possibly starting IV steroids tomorrow as adrenal insufficiency may be a possible cause of the hypotension. She also recommended a Urology consultation for possible lithotripsy for left staghorn calculi. BDR: #History of CVA Back at baseline Plan - Restarted home medication: PO atorvastatin 20 mg qD #Acute encephalopathy, resolved 2/2 to metabolic CVS: #Hypotension #Dilated cardiomyopathy (estimated LVEF 25-30% from 02/13/23 echocardiogram) Initially, patient's shock was attributed to septic shock On 05/02, Levophed was weaned off in preparation for down-grade to floors and patient's MAP maintained in the 70s throughout the day before abruptly dropping into the 50s around 2 PM Bedside ultrasound was done and IVC demonstrated >50% collapsibility and a 1 L IV LR bolus was given. However, patient's MAP still did not improve and Levophed had to be resumed DDx: hypovolemic shock, cardiogenic shock, adrenal insufficiency Dx: -Bedside ultrasound showed >50% IVC collapsibility -02/13/23 echocardiogram showed dilated cardiomyopathy with severe global hypokinesis and estimated LVEF 25-30% Rx: -Continue pressor support as needed -HD currently not indicated due to hypotension -Per Nephrology recommendations, ordered AM cortisol and will consider starting IV steroids as well as Urology consultation for staghorn calculi RRx: -Monitor blood pressure #Atrial fibrillation with RVR Secondary to UTI Plan: -Initially on Xarelto which was stopped due to ARIANA, restarted heparin anticoagulation -Continue Zosyn and doxycycline for UTI ?Keep potassium above 4 and magnesium above 2 at all times #History of reduced ejection fraction Last echo in January 2023 showed ejection fraction 25 to 30% BNP on admission 2425 Plan: ?Strict CHIQUIS's ?ECHO ordered PULM: #Respiratory alkalosis Likely in the setting of background pain pH 7.51, pCO2 28 Plan: - Restart patient's home norco dosing GI: #Ruled-out Bowel Ischemia Pain started two days ago before admission It is a dull, aching pain located primarily in the [id number]-vluha abdomen Accompanied by nausea and multiple episodes of non-bloody, non-bilious vomiting. Abdominal exam is soft, non-tender, non-distended, Bilirubin within normal limits AST and ALT elevated today R/O Plan: ? Monitor clinically with serial abdominal exams #Transaminitis Likely secondary to septic shock AST and ALT elevation, ALP normal, Bilirubin normal Plan - Treat shock - Follow AM labs RENAL: #ARIANA on chronic CKD Currently believed to be 2/2 renal hypoperfusion 2/2 cardiogenic shock vs. hypovolemic shock Postrenal obstructive etiology 2/2 staghorn calculi could also be a contributing factor Plan: ?Nephrology consulted, Dr Landry, follow recommendations ?s/p 2 HD sessions - Give LR fluid boluses if continue to be fluid responsive ?Renally dose medications ?Avoid nephrotoxic medication #High anion gap metabolic acidosis 2/2 #Lactic acidosis Anion gap 16 Plan: ?Second hemodialysis session today ?Trend lactate every 4 hours - Next renal panel at 7pm ENDO #History of hypothyroidism TSH within normal limits Plan ? Restart levothyroxine starting tomorrow HEME #Leukocytosis Urine is the source of infection No fever Plan - Continue antibiotics #Macrocytic anemia Hemoglobin 8, MCV 102 Vitamin B12, folate level normal Iron panel Plan: ?Transfuse pRBC if hemoglobin less than 7 #Coagulopathy PT 15.9 INR 1.5 Fibrinogen 269 Platelets 120 Patient is on rivaroxaban 15 mg daily Not currently bleeding DIC panel negative Plan ?Monitor for signs of bleeding -Swapped rivaroxaban for heparin ID #Septic Shock 2/2 to #Urinary tract infection UA: leuk positive, nitrite positive, WBC 611 Procal 0.19 LA 9.3 -> 3.8 -> 2.2 On Low dose Levophed Plan ?Follow urine culture ?Continue Zosyn - Continue Levophed to keep MAP >65 - Continue giving fluid boluses if responsive to fluids #?Gram-positive cocci bacteremia 1 out of 2 bottles positive Could potentially be a contaminant Patient has ARIANA Plan: - Added Doxycline 100mg BID for MRSA coverage ?Vancomycin not started as it could further harm the kidneys ?Repeat blood cultures ordered, follow result Health Maintenance: Diet: N.p.o. GI prophylaxis: None at this time DVT prophylaxis: Heparin 5000 units every 8 hours Antibiotics: Zosyn and doxycycline CODE STATUS: Full Disposition: ICU Case discussed with my attending Dr. Jesenia Beasley DO Internal Medicine, PGY-1 Attending Provider Attestation/Addendum Patient seen and examined with above resident, Jung Beasley DO. I agree with the findings, assessment, and plan of care as document except for any differences below. Patient continues to have significant improvement in shock state, difficult to determine whether this is purely hypovolemic or there is underlying component of sepsis. Antibiotics broadened with addition of doxycycline to have adequate coverage for community-acquired MRSA with gram-positive bacteremia noted that this may be contamination. Should the MRSA come back negative will isolate to just Zosyn to complete course 5 to 7 days with concern for intra- abdominal infection likely pyelonephritis. Pneumonia seems less likely as the patient's oxygen requirements have been minimal and weaned off appropriately. Patient's renal function continues to lag behind despite appropriate care with fluid resuscitation and maintenance of renal perfusion with MAP greater than 65 on low-dose Levophed. Concern for adrenal insufficiency though this seems less likely in cortisol in the a.m. was sent. This will likely come back in the coming days to a week but low threshold for initiation of stress dose steroids with dexamethasone preferred as of we are able to do a cosyntropin testing in the future this will not negate effectiveness of testing. Appreciate ongoing assistance from nephrology with transition to [facility] to avoid large drops in blood pressure but maintain ability to pull fluid as she does seem to be significantly overloaded in the setting of her heart failure and low albumin. Patient's mentation has significantly improved and she is able to interact appropriately during rounds today. Total critical care time: I personally spent 40 minutes for review of physiologic parameters, directing plan of care throughout the day, coordination of care with other subspecialties, and counseling patient at bedside. This is exclusive of time spent teaching of staff performing a separate billable procedures. Patient remains at significant risk for further morbidity and mortality warranting close monitoring of care only available in the ICU. Critical care services required for acute metabolic encephalopathy, acute renal failure on CKD, septic shock, hypovolemia, gram- positive bacteremia.
[2025-05-02 12:03] LABS: Partial Thromboplastin Time 41.1 Seconds (22.0-36.0)
[2025-05-02] MEDS: HEPARIN SOD INJ 5000 UNIT/ML VIAL 2000 UNIT IV (12:45)
[2025-05-02] MEDS: Heparin/D5w 25K 250 ML Ivpb 25,000 UNIT/250 ML BAG 10 UNIT IV (12:46)
[2025-05-02 12:53] LABS: Partial Thromboplastin Time 39.2 Seconds (22.0-36.0)
[2025-05-02] MEDS: RINGERS LACTATED 500 ML 500 ML 999 ML IV (15:23)
[2025-05-02 17:58] LABS: Hematocrit 25.9 % (36.0-46.0)
[2025-05-02 17:59] LABS: Hemoglobin 8.4 g/dL (12.0-16.0)
[2025-05-02 18:09] LABS: Lactate (Lactic Acid) 6.8 mMol/L (0.4-2.0)
[2025-05-02 18:29] LABS: Partial Thromboplastin Time 130.9 Seconds (22.0-36.0)
[2025-05-02 20:50] LABS: Reflex Lactate? Y
[2025-05-02] MEDS: Norepinephrine/D5W 8mg/250ml 8 MG/250 ML BAG 12.364 MG IV (21:15)
[2025-05-02 21:58] LABS: Lactic Acid, 3 HR 4.9 mMol/L (0.4-2.0)
[2025-05-03] VITALS (178 sets, daily range): BP systolic 65–134; BP diastolic 22–91; PULSE 84–169; RESP 0–98; TEMP 35.8–36.6; O2SAT 66–100; BMI 28.4
--- NOTE | 2025-05-03 00:26 | ESPR_ITS ---
RE: RUBÉN VIVAR : 1960 DATE OF SERVICE: 05/02/2025 HISTORY OF PRESENT ILLNESS: Briefly, she is a 64-year-old woman with past medical history significant for CVA, atrial fibrillation, heart failure with reduced ejection fraction of 25% to 30% done on 11/04/2022, hypothyroidism and a resident of [facility] who presented to the emergency room on 04/30/2025 with abdominal pain for two days prior to admission. When she presented to the emergency room on 04/30/2025, she was found with a potassium of 9.5 with big T waves, on EKG, CO2 of less than 10, white count of 12,000. She was immediately admitted and transferred to ICU where she was emergently dialyzed as well to address hyperkalemia and lactic acidosis. A kidney ultrasound was performed and it did not show any significant hydronephrosis, but revealed a 19 mm left renal calculus. The next day, the patient had a CTA of the chest, abdomen, and pelvis with IV contrast and it revealed an extensive left staghorn calculi and left urinary tract infection pattern. The patient is currently oligoanuric. She also had another dialysis yesterday, which she kind of tolerated very well. The patient remains hypotensive and was given IV fluids, but remains hypotensive even while on vasopressor. The patient is more awake and alert, son by the bedside. PHYSICAL EXAMINATION: Vital Signs: Blood pressure of 110/70s, heart rate of 104. HEENT: Anicteric sclerae. Normocephalic. Neck: Supple. JVD. Chest and Lungs: Symmetric expansion. Good breath sounds. Cardiac: Without murmur. Abdomen: Soft and tender. Extremities: No edema. CURRENT MEDICATIONS: 1. Acetaminophen 650 mg p.o. q.4. 2. Normal saline boluses. 3. Lactated ringers boluses IV. 4. Zosyn 2.25 g IV q.6. ASSESSMENT: 1. Oliguric chronic acute kidney injury secondary to acute tubular necrosis following hemodynamic instability and hypotension resulting to hypoperfusion and acute tubular necrosis. 2. Severe hyperkalemia secondary to severe metabolic acidosis and acute kidney injury, now improved. 3. Lactic acidosis most likely secondary to septic shock. 4. Staghorn calculi on the left kidney. 5. Heart failure with reduced ejection fraction of 25% to 30%. 6. Persistent lactic acidosis. PLAN: I agree with continuous IV fluid volume challenges. I agree with starting her on Zosyn. I also would like to obtain either a.m. cortisol level or do a cosyntropin test to rule out adrenal insufficiency. We can start the patient on IV hydrocortisone 100 mg x1, then 50 mg t.i.d. IV after obtaining a.m. cortisol level. The patient will be dialyzed again tomorrow and if she is more hemodynamically stable, then we can place a tunnel dialysis catheter to avoid more infection. Lastly, the patient will need lithotripsy or a percutaneous nephrolithotomy and urology referral. DT: 22:50:44 TT: 00:08:00 Ref: [id number] - TID: [id number] MTDD
[2025-05-03] MEDS: PIPERACILLIN/TAZO 2.25GM INJ 2.25 GM in SODIUM CHLORIDE 0.9% (Popper) 50 ML IV ×4 (00:30→17:54)
[2025-05-03 01:51] LABS: Partial Thromboplastin Time 41.9 Seconds (22.0-36.0)
[2025-05-03] MEDS: HEPARIN SOD INJ 5000 UNIT/ML VIAL 2000 UNIT IVP ×2 (02:50→07:28)
[2025-05-03] MEDS: LEVOTHYROXINE SODIUM 25 MCG TABLET 50 MCG PO (05:25)
[2025-05-03 06:49] LABS: Basophils # (Auto) 0.0 Thou/mm3 (0.0-0.2); Basophils % (Auto) 0 % (0-2.5); Eosinophils # (Auto) 0.3 Thou/mm3 (0.0-0.5); Eosinophils % (Auto) 3 % (0-10); Hematocrit 21.3 % (36.0-46.0); Immature Granulocytes Auto 0.08 Thou/mm3 (0.00-0.00); Lymphocytes # (Auto) 2.3 Thou/mm3 (1.0-4.8); Lymphocytes % (Auto) 25 % (10-50); Mean Corpuscular HGB Conc 31.9 g/dl (31.0-37.0); Mean Corpuscular Hemoglobin 32.2 pg (25.0-35.0); Mean Corpuscular Volume 101 fL (80-100); Monocytes # (Auto) 1.0 Thou/mm3 (0.0-0.8); Monocytes % (Auto) 11 % (0-12); Neutrophils # (Auto) 5.4 Thou/mm3 (1.8-7.7); Neutrophils % (Auto) 60 % (37-80); Nucleated Red Blood Cell # 0.07 Thou/mm3 (0.00-0.00); Nucleated Red Blood Cell % 1 /100 WBC (0); Platelet Count 114 Thou/mm3 (140-440); RDW Standard Deviation 64.1 fL (36.4-46.3); Red Blood Count 2.11 Miln/mm3 (4.00-5.20); White Blood Count 9.0 Thou/mm3 (3.6-11.0)
[2025-05-03 06:56] LABS: Hemoglobin 6.8 g/dL (12.0-16.0)
[2025-05-03 07:01] LABS: Partial Thromboplastin Time 37.3 Seconds (22.0-36.0)
[2025-05-03 07:06] LABS: Alanine Aminotransferase 133 U/L (10-49); Albumin, Serum 2.5 gm/dL (3.4-4.8); Albumin/Globulin Ratio 1.5 (1.2-2.2); Alkaline Phosphatase 48 U/L (46-116); Anion Gap 11 (7-16); Aspartate Amino Transferase 102 U/L (0-34); BUN/Creatinine Ratio 6 Ratio (12-20); Bilirubin,Total 0.3 mg/dL (0.3-1.2); Blood Urea Nitrogen 16 mg/dL (9-23); Calcium 7.1 mg/dL (8.3-10.6); Calcium (Corrected) 8.3 mg/dL (8.5-10.1); Carbon Dioxide 25.7 mMol/L (20.0-31.0); Chloride 108 mMol/L (98-107); Creatinine (Component) 2.5 mg/dL (0.6-1.3); Estimated Creatinine Clearance 29.6 mL/min (>60); Globulin 1.7 gm/dL (2.3-3.5); Glucose 103 mg/dL (74-106); Magnesium 2.1 mg/dL (1.6-2.6); Osmolality,Calculated 289 (275-295); Potassium 3.0 mMol/L (3.4-5.1); Sodium 145 mMol/L (136-145); Total Protein 4.2 gm/dL (5.7-8.2); eGFR 21 See Note
[2025-05-03 08:03] LABS: Phosphorous 2.9 mg/dL (2.4-5.1)
[2025-05-03 08:37] LABS: Lactate (Lactic Acid) 1.9 mMol/L (0.4-2.0)
[2025-05-03] MEDS: FUROSEMIDE INJ 10 MG/ML VIAL 2 ML 20 MG IVP (09:03)
[2025-05-03] MEDS: THIAMINE INJ 100 MG/ML VIAL 2 ML 200 MG IVP (09:07)
[2025-05-03] MEDS: CALCIUM CARBONATE 600 MG TABLET PO ×2 (09:08→09:09)
[2025-05-03] MEDS: NAPH,KPH MBDB 1 PACKET (1.5 GM) PO (09:08)
[2025-05-03 09:23] LABS: LDH (Lactate Dehydrogenase) 287 U/L (120-246)
[2025-05-03 09:52] LABS: Base Excess, Venous 2 (-3-3); O2 Saturation, Venous 65 % (96-97); PCO2, Venous 35 mmHg (36-56); PO2, Venous 32 mmHg (15-58); pH, Venous 7.48 (7.33-7.66)
--- NOTE | 2025-05-03 09:54 | PC.SS ---
Update: Patient is on IV ABX. Vital signs are stable. Echo reading pending.
[2025-05-03 13:10] LABS: Hematocrit 29.2 % (36.0-46.0); Hemoglobin 9.6 g/dL (12.0-16.0)
[2025-05-03 13:31] LABS: Partial Thromboplastin Time 34.4 Seconds (22.0-36.0)
[2025-05-03 13:38] LABS: Albumin, Serum 3.1 gm/dL (3.4-4.8); Anion Gap 10 (7-16); BUN/Creatinine Ratio 8 Ratio (12-20); Blood Urea Nitrogen 22 mg/dL (9-23); Calcium 8.1 mg/dL (8.3-10.6); Calcium (Corrected) 8.8 mg/dL (8.5-10.1); Carbon Dioxide 27.7 mMol/L (20.0-31.0); Chloride 102 mMol/L (98-107); Creatinine (Component) 2.9 mg/dL (0.6-1.3); Estimated Creatinine Clearance 25.7 mL/min (>60); Glucose 145 mg/dL (74-106); Osmolality,Calculated 285 (275-295); Phosphorous 2.9 mg/dL (2.4-5.1); Potassium 4.2 mMol/L (3.4-5.1); Sodium 140 mMol/L (136-145); eGFR 18 See Note
--- NOTE | 2025-05-03 13:51 | ESPR_ITS ---
<Statement entered by Jonatan Kimble MD - 05/03/25 21:02> I personally supervised the PGY-1 resident, Dr. Beasley, examined the patient. I agree with the documentation and plan with the exceptions listed below. Patient's hypotension was theorized to be due to adrenal insufficiency after discussions with nephrology. However patient's clinical findings including hypokalemia and lack of hyponatremia support this. At this time we will not pursue stress dose steroids. Will continue to titrate Levophed IV and attempt to wean off overnight. Patient also received 1 unit PRBC infusion for possible blood loss anemia after hemoglobin down trended to 6.7 from 8.4. Doxycycline IV was also discontinued due to concern for hemolytic anemia, this is a rare complication but may be the case. Prior to discharge patient will need to have tunneled dialysis catheter placed for outpatient hemodialysis. Tomorrow will place PPD in preparation for outpatient hemodialysis. Plan of care discussed with Attending Dr. Jesenia Kimble MD PGY 2 Disclaimer: This note was dictated by speech recognition. Minor errors in story writer may be present due to voice recognition software. Documentation for date of: 05/03/25 Subjective Subjective Interval history: Note history at this time limited as patient is altered and majority of the history is from chart review 64-year-old female with a past medical history significant for a cerebrovascular accident, atrial fibrillation, heart failure with reduced ejection fraction(25-30% in January 2023), chronic kidney disease, and hypothyroidism presents from a [place] [facility] facility for evaluation of abdominal pain. The pain started two days ago and has been constant since. It is a dull, aching pain located primarily in the [id number] abdomen, and the patient rates its severity as moderate. The pain is accompanied by nausea and multiple episodes of non-bloody, non-bilious vomiting. She also reports feeling anxious and has verbalized a fear of . She denies any recent illness, fevers, chills, chest pain, shortness of breath, dysuria, diarrhea, or changes in bowel habits. ED course: Initial vitals include temperature 100.4, respiratory rate 19, pulse 74, blood pressure 157/117, O2 saturations 99% on 4 L of nasal cannula. EKG showed atrial fibrillation with RVR and wide-complex tachycardia. Notable labs include potassium 9.5, bicarb less than 10, anion gap 18, creatinine 6.2, lactic acid 11.6, corrected calcium 10.2, BNP 2426, Pro-Matias 0.19. VBG pH 6.89. Coagulation studies showed PT 14.6, INR 1.4. CBC showed WBC 12.1, hemoglobin 11, MCV 100.6. Patient was given 1 L of normal saline. Patient received calcium chloride 10% x 1, D50 push x 2, bicarb 50 mEq x 1, sodium bicarb drip started albuterol 5 mg inhaler x 2, IV insulin 5 units x 1, 10 units x 1. In ED urgent hemodialysis catheter was placed through the left femoral vein. Dr Landry has been contacted regarding starting hemodialysis urgently. Past medical history: As stated above. Past surgical history: Unobtainable. Social history: Unobtainable. Patient admitted to ICU following wide-complex tachycardia in the setting of severe hyperkalemia. Admitted for close monitoring. Interval History 05/01/25: Patient's mentation improved since yesterday after hemodialysis session. Bedside ultrasound was done, it was found that the patient is intravascularly depleted. Total of 750 mL of LR was given. Bicarb level improved today to 27. Bicarb drip was stopped. Blood culture from yesterday was positive for GPC. Patient produced about 100ml of urine today and it was suspicious for infection. Sent for urinalysis and urine culture. UA showed UTI. Patient continues to be on Zosyn renally dosed. Doxycline added since 09/02 blood culture from yesterday was positive GPC. Sample may be a contaminant so repeated blood culture today. CT abdomen angiogram was done there were no evidence of ischemic bowel. There is chronic extensive left staghorn calculi. Patient requires Levophed low-dose to maintain a MAP greater than 65. 05/02/25: Patient was given 500 cc's of fluid, had their electrolytes repleted, and started on IV doxycycline 100 mg BID overnight. Patient seen and examined at bedside; they report feeling generally well today with no new complaints or concerns. Patient is currently receiving renally dosed Zosyn and doxycycline for her UTI. Initially, patient's shock was attributed to sepsis; however, at this time, hypovolemia and possible cardiogenic etiology (CHF w/ EF of 20-25%) seem more likely. Today, Levophed was weaned off and patient's MAP maintained in the 70s throughout the day, until 2 PM when it dropped to the 50s. Bedside ultrasound was done and IVC demonstrated >50% collapsibility; a 1 L Ringer's lactate IVF bolus was given. Patient's MAP still did not improve and Levophed had to be resumed. Nephrology, Dr Landry, recommended AM cortisol and possibly starting IV steroids tomorrow as adrenal insufficiency may be a possible cause of the hypotension. She also recommended a Urology consultation for possible lithotripsy for left staghorn calculi. 05/03/25: No overnight events. Patient seen and examined at bedside; they report feeling generally well today with no new complaints or concerns. Pertinent labs today include: Hemoglobin dropped to 6.8 from 7.7, platelet count dropped to 114 from 127, APTT drop from 130.9-37.3, potassium dropped to 3.0 from 4.0, chloride bump to 108 from 102, creatinine bump to 2.5 from 2.1, lactic acid drop to 1.9 from 4.9, corrected calcium dropped from 9.0-8.3, magnesium dropped to 2.1 from 3.2, AST drop to 102 from 205, ALT dropped to 133 from 174, LDH 287, and albumin dropped to 2.5 from 3.2. A.m. cortisol is pending. Patient continues to be hypotensive despite being on pressors and being given fluid boluses. It is currently suspected that patient's low blood pressure is due to the temporarily impaired function of the kidneys secondary to hypoperfusion from septic shock and that continued circulatory support via fluids and pressors with antibiotic treatment of her UTI will eventually lead to normotensive status. Patient will also be receiving HD today for her oliguria 2/2 ARIANA on CKD 2/2 ATN 2/2 hypoperfusion. Exam Vital Signs Temp Pulse Resp BP Pulse Ox O2 Del Method O2 Flow Rate 96.5 F L 144 H 27 H 85/73 L 97 Room Air 1 05/03/25 09:20 05/03/25 12:26 05/03/25 12:26 05/03/25 12:26 05/03/25 12:26 05/01/25 12:00 05/01/25 02:34 FiO2 96 05/01/25 14:45 Narrative Exam General: Alert and oriented x 3. Not in distress, following commands. HEENT: Atraumatic. PERRL. EOMI. Neck supple. CVS: S1-S2. Irregular rhythm. A-fib with RVR RESP: Decreased air entry bilaterally. No crackles heard. GI: Soft, nontender. Bowel sounds heard. No abdominal distention Skin: Warm, dry, intact. Sacral decubitus ulcer that is healing. Left posterior thigh excoriation, left heel eschar, left leg has more edema than right (left leg 3+ and right leg 2+), left distal leg and foot with slightly erythema) Neuro: Limited at this time. Objective Labs 05/06/25 14:36 05/06/25 05:25 Labs: Laboratory Results - last 24 hr 05/02/25 05/02/25 05/03/25 17:21 21:26 01:25 WBC RBC Hgb 8.4 L Hct 25.9 L MCV MCH MCHC RDW Std Deviation Plt Count Neut % (Auto) Lymph % (Auto) Delta % (Auto) Eos % (Auto) Baso % (Auto) Neut # (Auto) Lymph # (Auto) Delta # (Auto) Eos # (Auto) Baso # (Auto) Immature Gran # (Auto) Absolute Nucleated RBC Immature Gran % Nucleated RBC % APTT 130.9 H* D 41.9 H D VBG pH VBG pCO2 VBG pO2 VBG O2 Sat (Rohit) VBG Base Excess Sodium Potassium Chloride Carbon Dioxide Anion Gap BUN Creatinine Estim Creat Clear Calc eGFR BUN/Creatinine Ratio Glucose Calculated Osmolality Lactic Acid 6.8 H* 4.9 H* Calcium Corrected Calcium Phosphorus Magnesium Total Bilirubin AST ALT Alkaline Phosphatase Lactate Dehydrogenase Total Protein Albumin Globulin Albumin/Globulin Ratio Blood Type B Positive Antibody Screen NEGATIVE Crossmatch See Detail Blood Bank Wristband ID Yes 05/03/25 05/03/25 05/03/25 06:31 08:23 09:47 WBC 9.0 RBC 2.11 L Hgb 6.8 L* Hct 21.3 L* MCV 101 H MCH 32.2 MCHC 31.9 RDW Std Deviation 64.1 H Plt Count 114 L Neut % (Auto) 60 Lymph % (Auto) 25 Delta % (Auto) 11 Eos % (Auto) 3 Baso % (Auto) 0 Neut # (Auto) 5.4 Lymph # (Auto) 2.3 Delta # (Auto) 1.0 H Eos # (Auto) 0.3 Baso # (Auto) 0.0 Immature Gran # (Auto) 0.08 H Absolute Nucleated RBC 0.07 H Immature Gran % 1 H Nucleated RBC % 1 H APTT 37.3 H VBG pH 7.48 VBG pCO2 35 L D VBG pO2 32 D VBG O2 Sat (Rohit) 65 L VBG Base Excess 2 Sodium 145 Potassium 3.0 L D Chloride 108 H Carbon Dioxide 25.7 Anion Gap 11 BUN 16 Creatinine 2.5 H Estim Creat Clear Calc 29.6 L eGFR 21 L BUN/Creatinine Ratio 6 L Glucose 103 Calculated Osmolality 289 Lactic Acid 1.9 Calcium 7.1 L Corrected Calcium 8.3 L Phosphorus 2.9 Magnesium 2.1 Total Bilirubin 0.3 AST 102 H ALT 133 H Alkaline Phosphatase 48 Lactate Dehydrogenase 287 H Total Protein 4.2 L Albumin 2.5 L D Globulin 1.7 L Albumin/Globulin Ratio 1.5 Blood Type Antibody Screen Crossmatch Blood Bank Wristband ID 05/03/25 12:47 WBC RBC Hgb 9.6 L D Hct 29.2 L MCV MCH MCHC RDW Std Deviation Plt Count Neut % (Auto) Lymph % (Auto) Delta % (Auto) Eos % (Auto) Baso % (Auto) Neut # (Auto) Lymph # (Auto) Delta # (Auto) Eos # (Auto) Baso # (Auto) Immature Gran # (Auto) Absolute Nucleated RBC Immature Gran % Nucleated RBC % APTT 34.4 VBG pH VBG pCO2 VBG pO2 VBG O2 Sat (Rohit) VBG Base Excess Sodium 140 Potassium 4.2 D Chloride 102 Carbon Dioxide 27.7 Anion Gap 10 BUN 22 Creatinine 2.9 H Estim Creat Clear Calc 25.7 L eGFR 18 L BUN/Creatinine Ratio 8 L Glucose 145 H Calculated Osmolality 285 Lactic Acid Calcium 8.1 L Corrected Calcium 8.8 Phosphorus 2.9 Magnesium Total Bilirubin AST ALT Alkaline Phosphatase Lactate Dehydrogenase Total Protein Albumin 3.1 L D Globulin Albumin/Globulin Ratio Blood Type Antibody Screen Crossmatch Blood Bank Wristband ID ABG Interpretation ABG results: 04/30/25 04/30/25 05/01/25 16:32 22:23 07:41 ABG pH 7.50 H 7.51 H ABG pCO2 23 L 28 L ABG pO2 140 H 91 D ABG HCO3 18 L 22 ABG O2 Saturation 100 H 99 H ABG Base Excess -4 L -1 VBG pH 6.89 L VBG pCO2 25 L VBG pO2 56 VBG Base Excess -27 L 05/03/25 09:47 ABG pH ABG pCO2 ABG pO2 ABG HCO3 ABG O2 Saturation ABG Base Excess VBG pH 7.48 VBG pCO2 35 L D VBG pO2 32 D VBG Base Excess 2 Quality Measures Quality Measures none Assessment & Plan Assessment Current Active Medications: Generic Name Dose Route Start Last Admin Trade Name Freq PRN Reason Stop Dose Admin Acetaminophen 650 mg 04/30/25 16:49 Acetaminophen 325 Mg Tablet PO 05/30/25 16:48 Q4HR PRN PAIN SCALE 1-3 (mild Dextrose 25 ml 04/30/25 16:58 Dextrose 50%-Water Inj 50 Ml Syringe IV 05/30/25 16:57 Q15MIN PRN BG 50-70 responsive npo pt Dextrose 50 ml 04/30/25 16:58 Dextrose 50%-Water Inj 50 Ml Syringe IV 05/30/25 16:57 Q15MIN PRN BG <50 OR BG <70 & pt unresponsive Glucagon 1 mg 04/30/25 16:58 Glucagon Inj 1 Mg Vial IM Q15MIN PRN BG <70, and no IV access Heparin Sodium (Porcine) 3,000 unit 04/30/25 22:13 05/01/25 17:50 Heparin Sod Inj 1000 Unit/Ml Vial 10 Ml INDWELLCAT 05/14/25 22:12 3,000 unit X1 PRN Administration DIALYSIS Albumin Human 25 gm in 100 mls @ 100 mls/hr 04/30/25 20:35 05/01/25 17:52 Albuminar-25 Ivpb IV Infused PRN PRN Infusion DIALYSIS Piperacillin Sod/Tazobactam 50 mls @ 100 mls/hr 05/01/25 18:00 05/03/25 12:21 Sod 2.25 gm/ Sodium Chloride IV 05/08/25 17:59 100 mls/hr Q6HR RIANNA Administration Heparin Sodium/Dextrose 25,000 unit in 250 mls @ 10 mls/hr 05/02/25 12:15 05/03/25 07:29 Heparin In D5w Ivpb IV 05/16/25 12:14 11.6 units/kg/hr .Q24H RIANNA 10.927 mls/hr Titration Protocol 10.616 UNITS/KG/HR Norepinephrine/Dextrose 8 mg in 250 mls @ 8.831 mls/hr 05/02/25 16:03 05/03/25 13:00 Levophed In D5w 8mg/250ml IV 06/01/25 16:02 0.03 mcg/kg/min .Q24H PRN 5.299 mls/hr PER PROTOCOL Titration Protocol 0.05 MCG/KG/MIN Levothyroxine Sodium 50 mcg 05/02/25 06:00 05/03/25 05:25 Levothyroxine Sodium 25 Mcg Tablet PO 06/01/25 05:59 50 mcg ACBR RIANNA Administration Metoprolol Succinate 50 mg 05/01/25 09:00 05/02/25 08:05 Metoprolol Succinate Xl 25 Mg Tabcr PO 05/31/25 08:59 Not Given QDAY RIANNA Plan 64-year-old female with a past medical history significant for a cerebrovascular accident, atrial fibrillation, heart failure with reduced ejection fraction(25-30% in January 2023), chronic kidney disease, and hypothyroidism presents from a [place] [facility] facility for evaluation of abdominal pain. Patient admitted to ICU following wide-complex tachycardia in the setting of severe hyperkalemia. Admitted for close monitoring. Patient continues to be hypotensive despite being on pressors and being given fluid boluses. It is currently suspected that patient's low blood pressure is due to the temporarily impaired function of the kidneys secondary to hypoperfusion from septic shock and that continued circulatory support via fluids and pressors with antibiotic treatment of her UTI will eventually lead to normotensive status. Patient will also be receiving HD today for her oliguria 2/2 ARIANA on CKD 2/2 ATN 2/2 hypoperfusion. 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 However, patient's MAP still did not improve and Levophed had to be resumed It is currently suspected that patient's low blood pressure is due to the temporarily impaired function of the kidneys secondary to hypoperfusion and that continued circulatory support via fluids and pressors with antibiotic treatment of her UTI will eventually lead to normotensive status Adrenal insufficiency is an alternative differential to explain the persistent hypotension but is less likely due to patient's hypokalemia (however, have ordered AM cortisol and will consider IV steroids just in case) DDx: hypovolemic shock, cardiogenic shock, adrenal insufficiency Dx: -Bedside ultrasound showed >50% IVC collapsibility -02/13/23 echocardiogram showed dilated cardiomyopathy with severe global hypokinesis and estimated LVEF 25-30% -AM cortisol has been ordered, pending Rx: -Continue pressor support as needed -HD today -Per Nephrology recommendations, follow up on AM cortisol and will consider starting IV steroids (IV hydrocortisone 100 mg x1 then IV hydrocortisone 50 mg TID) as well as Urology consultation for staghorn calculi RRx: -Monitor blood pressure #Atrial fibrillation with RVR Secondary to UTI Plan: -Continue heparin anticoagulation -Continue Zosyn (d/c'd doxycycline) for UTI ?Keep potassium above 4 and magnesium above 2 at all times #History of reduced ejection fraction Last echo in January 2023 showed ejection fraction 25 to 30% BNP on admission 6 Plan: ?Strict CHIQUIS's ?ECHO ordered PULM: No active issue GI: #Transaminitis (improving) Likely secondary to hypoperfusion AST and ALT elevation, ALP normal, Bilirubin normal 05/03: AST improved from 205 to 102 and ALT improved from 174 to 133 (likely due to improved perfusion of the liver via fluids and pressors) Plan - Treat shock - Follow AM labs RENAL: #ARIANA on chronic CKD Currently believed to be 2/2 renal hypoperfusion 2/2 cardiogenic shock vs. hypovolemic shock Postrenal obstructive etiology 2/2 staghorn calculi could also be a contributing factor Plan: ?Nephrology consulted, Dr Landry, follow recommendations ?HD today - Give LR fluid boluses if continue to be fluid responsive ?Renally dose medications ?Avoid nephrotoxic medication #Lactic acidosis (resolved) Lactic acid has down-trended to 1.9 from 4.9 ENDO #History of hypothyroidism TSH within normal limits Plan ? Continue levothyroxine HEME #Macrocytic anemia Hemoglobin 8, MCV 102 Vitamin B12, folate level normal Iron panel Plan: ?Transfuse pRBC if hemoglobin less than 7 #Coagulopathy PT 15.9 INR 1.5 Fibrinogen 269 Platelets 120 Patient is on rivaroxaban 15 mg daily Not currently bleeding DIC panel negative Plan ?Monitor for signs of bleeding -Swapped rivaroxaban for heparin ID #Septic Shock 2/2 to #Urinary tract infection UA: leuk positive, nitrite positive, WBC 611 Procal 0.19 LA 9.3 -> 3.8 -> 2.2 On Low dose Levophed Plan ?Follow urine culture ?Continue Zosyn - Continue Levophed to keep MAP >65 - Continue giving fluid boluses if responsive to fluids Health Maintenance: Diet: GI prophylaxis: None at this time DVT prophylaxis: Heparin 5000 units every 8 hours Antibiotics: Zosyn and doxycycline CODE STATUS: Full Disposition: ICU Case discussed with my attending Dr. Jesenia Beasley DO Internal Medicine, PGY-1 Attending Provider Attestation/Addendum Patient seen and examined with above resident, Jung Beasley DO. I agree with the findings, assessment, and plan of care as document except for any differences below. Patient continues to show slow improvement though not completely clear etiology for hypotension. At this point would favor continuing to monitor without need for steroid administration, await definitive result of Cortisol AM testing which was sent this morning. Patient remains on broad-spectrum antibiotics and will remove doxycycline MRSA testing is negative. Patient's rivaroxaban continues to be held at this time though she atrial fibrillation seems to be better controlled by rate. She does intermittently have spikes especially with eating. Patient continues to be significantly volume overloaded likely in combination with hypoalbuminemia and heart failure with reduced ejection fraction. She remains off of GDMT at this point due to hypotension. Patient on low-dose vasopressors though this is going to facilitate ability to remove fluid adequately. Will also consult urology for assessment for potential role of lithotripsy as potential source of infection urinary tract may be staghorn calculi and notably procalcitonin has been low. Closely monitor patient with fluid removal during renal replacement therapy. Patient will likely need long-term hemodialysis and we will plan for permanent dialysis catheter placement when appropriate. Patient counseled at bedside on plan of care and was agreeable. She reports that she feels significantly better and her appetite is robust now. She is concerned about her ability to return to her [place] [facility] where her also lives. Total critical care time: I personally spent 40 minutes for review of physiologic parameters, directing plan of care throughout the day, coordination of care with other subspecialist, and counseling patient at bedside. This is exclusive of time spent teaching on staff or performing any separate billable procedures. Patient remains at significant risk for further morbidity and mortality warranting close monitoring and care only available in the ICU. Critical care services required for septic shock, urinary tract infection, heart failure reduced ejection fraction, acute on chronic renal failure, severe protein calorie malnutrition.
[2025-05-03] MEDS: HEPARIN SOD INJ 5000 UNIT/ML VIAL 4000 UNIT IVP (14:08)
[2025-05-03] MEDS: Heparin/D5w 25K 250 ML Ivpb 25,000 UNIT/250 ML BAG 14.695 UNIT IV (15:34)
[2025-05-03 19:42] LABS: Albumin, Serum 3.0 gm/dL (3.4-4.8); Anion Gap 9 (7-16); BUN/Creatinine Ratio 8 Ratio (12-20); Blood Urea Nitrogen 10 mg/dL (9-23); Calcium 8.8 mg/dL (8.3-10.6); Calcium (Corrected) 9.6 mg/dL (8.5-10.1); Carbon Dioxide 28.5 mMol/L (20.0-31.0); Chloride 103 mMol/L (98-107); Creatinine (Component) 1.3 mg/dL (0.6-1.3); Estimated Creatinine Clearance 57.3 mL/min (>60); Glucose 97 mg/dL (74-106); Osmolality,Calculated 278 (275-295); Phosphorous 1.6 mg/dL (2.4-5.1); Potassium 4.1 mMol/L (3.4-5.1); Sodium 140 mMol/L (136-145); eGFR 46 See Note
[2025-05-03 19:48] LABS: Lactate (Lactic Acid) 1.2 mMol/L (0.4-2.0)
--- NOTE | 2025-05-03 22:17 | ESPR_ITS ---
RE: RUBÉN VIVAR : 1960 DATE OF SERVICE: 05/03/2025 HISTORY OF PRESENT ILLNESS: Briefly, she is a 64-year-old woman with history of CVA, atrial fibrillation, heart failure with reduced ejection fraction of 25%-30% done on 11/04/2022, hypothyroidism, and resident of [facility], who presented to emergency room on 04/30/2025 with abdominal pain for 2 days prior to admission. When she presented to emergency room on 04/30/2025, she was found with a potassium of 9.5 with huge T-waves on EKG, CO2 of less than 10, white count of 12,000, and was immediately admitted and transferred to ICU where she emergently dialyzed. Potassium level and lactic acid normalized with dialysis treatments. Her CTA of the chest, abdomen, and pelvis with IV contrast revealed extensive left staghorn calculi and left urinary tract infection pattern. The patient remains oliguric. Continues to have low blood pressure despite on low-dose Levophed. She is more awake and alert. CURRENT MEDICATIONS: 1. Acetaminophen. 2. Albumin. 3. Lactated Ringers. 4. Calcium carbonate. 5. Furosemide. 6. D50. 7. Heparin drip. 8. Zosyn 2.25 g IV q.6. 9. Levophed drip. PHYSICAL EXAMINATION: General: Awake, alert, and oriented. Vital Signs: Blood pressure of 91/73 and heart rate of 95. HEENT: Anicteric sclerae. Normocephalic. Neck: Supple. JVD. Chest and Lungs: Symmetric expansion. Clear breath sounds. Cardiac: Without murmur. Abdomen: Soft with abdominal wall edema. Extremities: Bilateral upper and lower extremity edema about 2-3+. LABORATORY DATA: Hemoglobin 9.6, hematocrit 29.2 post blood transfusion, WBC 9000, and platelet count 114,000. Sodium 140, potassium 4.1, chloride 103, CO2 is 28.5, BUN 10, creatinine 1.3, lactic acid 1.2, calcium 9.6, and albumin 3 from 2.5. ASSESSMENT: 1. Oliguric acute kidney injury secondary to acute tubular necrosis following hemodynamic instability and hypotension resulting in hypoperfusion and acute tubular necrosis. 2. Severe hyperkalemia secondary to severe metabolic acidosis and acute kidney injury, now improved. 3. Lactic acidosis most likely secondary to hypotension and septic shock vs cardiogenic shock 4. Staghorn calculi on the left kidney. 5. Heart failure with reduced ejection fraction of 25%-30%. 6. Volume overload vs Cardiogenic shock possibly secondary to decompensated congestive heart failure versus severe hypoalbuminemia from poor nutritional state causing decreased osmotic pressure intravascularly causing severe edema. PLAN: The patient will be started on Tablo today for 12 hours with goal of taking off 1.2 L for the next 12 hours to hopefully decrease preload and eventually increase myocardial contractility in the hope that she is not in cardiogenic shock with very poor myocardial contractility. We are still waiting for 2D echocardiogram to be completed. We will continue Tablo tomorrow for another 12 hours to remove fluids off her. The patient also will need urology referral for possible percutaneous nephrolithotomy versus lithotripsy. DT: 21:41:58 TT: 22:16:00 Ref: [id number] - TID: [id number] MTDD
[2025-05-03 22:39] LABS: Partial Thromboplastin Time > 139.0 Seconds (22.0-36.0)
[2025-05-04] VITALS (181 sets, daily range): BP systolic 70–185; BP diastolic 45–157; PULSE 64–141; RESP 0–100; TEMP 35.8–36.9; O2SAT 92–100; BMI 29.4
[2025-05-04] MEDS: PIPERACILLIN/TAZO 2.25GM INJ 2.25 GM in SODIUM CHLORIDE 0.9% (Popper) 50 ML IV ×5 (00:07→23:49)
[2025-05-04 00:13] LABS: Partial Thromboplastin Time > 139.0 Seconds (22.0-36.0)
[2025-05-04 00:40] LABS: Lactate (Lactic Acid) 1.4 mMol/L (0.4-2.0)
[2025-05-04 01:23] LABS: Albumin, Serum 2.7 gm/dL (3.4-4.8); Anion Gap 7 (7-16); BUN/Creatinine Ratio 8 Ratio (12-20); Blood Urea Nitrogen 6 mg/dL (9-23); Calcium 8.7 mg/dL (8.3-10.6); Calcium (Corrected) 9.7 mg/dL (8.5-10.1); Carbon Dioxide 27.8 mMol/L (20.0-31.0); Chloride 104 mMol/L (98-107); Creatinine (Component) 0.8 mg/dL (0.6-1.3); Estimated Creatinine Clearance 93.1 mL/min (>60); Glucose 125 mg/dL (74-106); Osmolality,Calculated 276 (275-295); Potassium 4.0 mMol/L (3.4-5.1); Sodium 139 mMol/L (136-145); eGFR > 60 See Note
[2025-05-04 01:26] LABS: Phosphorous 1.0 mg/dL (2.4-5.1)
[2025-05-04] MEDS: HEPARIN SOD INJ 1000 UNIT/ML VIAL 10 ML 3000 UNIT INDWELLCAT ×2 (03:34→23:21)
[2025-05-04 04:59] LABS: Basophils # (Auto) 0.1 Thou/mm3 (0.0-0.2); Basophils % (Auto) 1 % (0-2.5); Eosinophils # (Auto) 0.4 Thou/mm3 (0.0-0.5); Eosinophils % (Auto) 3 % (0-10); Hematocrit 25.3 % (36.0-46.0); Immature Granulocytes Auto 0.09 Thou/mm3 (0.00-0.00); Lymphocytes # (Auto) 2.9 Thou/mm3 (1.0-4.8); Lymphocytes % (Auto) 27 % (10-50); Mean Corpuscular HGB Conc 33.6 g/dl (31.0-37.0); Mean Corpuscular Hemoglobin 32.0 pg (25.0-35.0); Mean Corpuscular Volume 95 fL (80-100); Monocytes # (Auto) 1.0 Thou/mm3 (0.0-0.8); Monocytes % (Auto) 9 % (0-12); Neutrophils # (Auto) 6.4 Thou/mm3 (1.8-7.7); Neutrophils % (Auto) 59 % (37-80); Nucleated Red Blood Cell # 0.07 Thou/mm3 (0.00-0.00); Nucleated Red Blood Cell % 1 /100 WBC (0); Platelet Count 129 Thou/mm3 (140-440); RDW Standard Deviation 62.5 fL (36.4-46.3); Red Blood Count 2.66 Miln/mm3 (4.00-5.20); White Blood Count 10.9 Thou/mm3 (3.6-11.0)
[2025-05-04 05:03] LABS: Hemoglobin 8.5 g/dL (12.0-16.0)
[2025-05-04 05:36] LABS: Alanine Aminotransferase 127 U/L (10-49); Albumin, Serum 2.7 gm/dL (3.4-4.8); Albumin/Globulin Ratio 1.4 (1.2-2.2); Alkaline Phosphatase 60 U/L (46-116); Anion Gap 8 (7-16); Aspartate Amino Transferase 76 U/L (0-34); BUN/Creatinine Ratio 6 Ratio (12-20); Bilirubin,Total 0.5 mg/dL (0.3-1.2); Blood Urea Nitrogen 5 mg/dL (9-23); Calcium 8.7 mg/dL (8.3-10.6); Calcium (Corrected) 9.7 mg/dL (8.5-10.1); Carbon Dioxide 27.9 mMol/L (20.0-31.0); Chloride 103 mMol/L (98-107); Creatinine (Component) 0.9 mg/dL (0.6-1.3); Estimated Creatinine Clearance 82.8 mL/min (>60); Globulin 2.0 gm/dL (2.3-3.5); Glucose 91 mg/dL (74-106); Magnesium 1.6 mg/dL (1.6-2.6); Osmolality,Calculated 274 (275-295); Phosphorous 1.1 mg/dL (2.4-5.1); Potassium 4.0 mMol/L (3.4-5.1); Sodium 139 mMol/L (136-145); Total Protein 4.7 gm/dL (5.7-8.2); eGFR > 60 See Note
[2025-05-04] MEDS: LEVOTHYROXINE SODIUM 25 MCG TABLET 50 MCG PO (06:34)
[2025-05-04 06:53] LABS: Misc Send Out* See Sep Rpt
[2025-05-04] MEDS: Magnesium Sulfate 4 GM Ivpb 4 GM/50 ML BAG IV (08:03)
[2025-05-04] MEDS: NAPH,KPH MBDB 1 PACKET (1.5 GM) PO (08:04)
[2025-05-04] MEDS: SOD PHOS ADDITIVE 30 MMOL in SODIUM CHLORIDE 0.9% 500 ML 500 ML 62.5 MMOL IV (08:05)
[2025-05-04 08:09] LABS: Lactate (Lactic Acid) 1.3 mMol/L (0.4-2.0)
--- NOTE | 2025-05-04 09:00 | PD.RESPRO ---
Documentation for date of: 05/04/25 Subjective Subjective Interval history: Note history at this time limited as patient is altered and majority of the history is from chart review 64-year-old female with a past medical history significant for a cerebrovascular accident, atrial fibrillation, heart failure with reduced ejection fraction(25-30% in January 2023), chronic kidney disease, and hypothyroidism presents from a nursing home facility for evaluation of abdominal pain. The pain started two days ago and has been constant since. It is a dull, aching pain located primarily in the [id number] abdomen, and the patient rates its severity as moderate. The pain is accompanied by nausea and multiple episodes of non-bloody, non-bilious vomiting. She also reports feeling anxious and has verbalized a fear of . She denies any recent illness, fevers, chills, chest pain, shortness of breath, dysuria, diarrhea, or changes in bowel habits. ED course: Initial vitals include temperature 100.4, respiratory rate 19, pulse 74, blood pressure 157/117, O2 saturations 99% on 4 L of nasal cannula. EKG showed atrial fibrillation with RVR and wide-complex tachycardia. Notable labs include potassium 9.5, bicarb less than 10, anion gap 18, creatinine 6.2, lactic acid 11.6, corrected calcium 10.2, BNP 2426, Pro-Matias 0.19. VBG pH 6.89. Coagulation studies showed PT 14.6, INR 1.4. CBC showed WBC 12.1, hemoglobin 11, MCV 100.6. Patient was given 1 L of normal saline. Patient received calcium chloride 10% x 1, D50 push x 2, bicarb 50 mEq x 1, sodium bicarb drip started albuterol 5 mg inhaler x 2, IV insulin 5 units x 1, 10 units x 1. In ED urgent hemodialysis catheter was placed through the left femoral vein. Dr Landry has been contacted regarding starting hemodialysis urgently. Past medical history: As stated above. Past surgical history: Unobtainable. Social history: Unobtainable. Patient admitted to ICU following wide-complex tachycardia in the setting of severe hyperkalemia. Admitted for close monitoring. Interval History 05/01/25: Patient's mentation improved since yesterday after hemodialysis session. Bedside ultrasound was done, it was found that the patient is intravascularly depleted. Total of 750 mL of LR was given. Bicarb level improved today to 27. Bicarb drip was stopped. Blood culture from yesterday was positive for GPC. Patient produced about 100ml of urine today and it was suspicious for infection. Sent for urinalysis and urine culture. UA showed UTI. Patient continues to be on Zosyn renally dosed. Doxycline added since 1/2 blood culture from yesterday was positive GPC. Sample may be a contaminant so repeated blood culture today. CT abdomen angiogram was done there were no evidence of ischemic bowel. There is chronic extensive left staghorn calculi. Patient requires Levophed low-dose to maintain a MAP greater than 65. 05/02/25: Patient was given 500 cc's of fluid, had their electrolytes repleted, and started on IV doxycycline 100 mg BID overnight. Patient seen and examined at bedside; they report feeling generally well today with no new complaints or concerns. Patient is currently receiving renally dosed Zosyn and doxycycline for her UTI. Initially, patient's shock was attributed to sepsis; however, at this time, hypovolemia and possible cardiogenic etiology (CHF w/ EF of 20-25%) seem more likely. Today, Levophed was weaned off and patient's MAP maintained in the 70s throughout the day, until 2 PM when it dropped to the 50s. Bedside ultrasound was done and IVC demonstrated >50% collapsibility; a 1 L Ringer's lactate IVF bolus was given. Patient's MAP still did not improve and Levophed had to be resumed. Nephrology, Dr Landry, recommended AM cortisol and possibly starting IV steroids tomorrow as adrenal insufficiency may be a possible cause of the hypotension. She also recommended a Urology consultation for possible lithotripsy for left staghorn calculi. 05/03/25: No overnight events. Patient seen and examined at bedside; they report feeling generally well today with no new complaints or concerns. Pertinent labs today include: Hemoglobin dropped to 6.8 from 7.7, platelet count dropped to 114 from 127, APTT drop from 130.9-37.3, potassium dropped to 3.0 from 4.0, chloride bump to 108 from 102, creatinine bump to 2.5 from 2.1, lactic acid drop to 1.9 from 4.9, corrected calcium dropped from 9.0-8.3, magnesium dropped to 2.1 from 3.2, AST drop to 102 from 205, ALT dropped to 133 from 174, LDH 287, and albumin dropped to 2.5 from 3.2. A.m. cortisol is pending. Patient continues to be hypotensive despite being on pressors and being given fluid boluses. It is currently suspected that patient's low blood pressure is due to the temporarily impaired function of the kidneys secondary to hypoperfusion from septic shock and that continued circulatory support via fluids and pressors with antibiotic treatment of her UTI will eventually lead to normotensive status. Patient will also be receiving HD today for her oliguria 2/2 ARIANA on CKD 2/2 ATN 2/2 hypoperfusion. 05/04/2025: No overnight events reported, patient. This morning patient seen and examined at bed, she says she feels well. Denies any chest pain, shortness of breath hemoglobin remained stable at 8.5, BUN 5, CR 0.9, phosphorus 1.1, magnesium 1.6. Today patient scheduled for CRRT 24 hours as per nephrology. Levophed will also be weaned and patient started on midodrine p.o. 3 times daily with albumin as needed for hypotension during CRRT. Urology assessed the patient no emergent need for intervention at this time for staghorn calculi as it is not obstructing and patient is a poor surgical candidate, will schedule for outpatient follow-up. Patient will need PermCath placement for outpatient dialysis, this will be done tomorrow as patient needs to be off of heparin infusion for 24 hours as per IR. PPD was also placed today in preparation for outpatient dialysis. NaPhos 30mmol, 1 packet neutaphos and Magnesium sulphate 4g IV given Exam Vital Signs Temp Pulse Resp BP Pulse Ox O2 Del Method O2 Flow Rate 97.6 F 98 19 97/61 100 Room Air 1 05/04/25 04:00 05/04/25 07:31 05/04/25 07:31 05/04/25 07:31 05/04/25 07:31 05/03/25 16:00 05/01/25 02:34 FiO2 96 05/01/25 14:45 Narrative Exam General: Alert and oriented x 3. Not in distress, following commands. HEENT: Atraumatic. PERRL. EOMI. Neck supple. CVS: S1-S2. Irregular rhythm. RESP: Decreased air entry bilaterally. No crackles heard. GI: Soft, obese nontender. Bowel sounds heard. No abdominal distention Skin: Warm, dry, intact. Sacral decubitus ulcer that is healing. Left posterior thigh excoriation, left heel eschar, left leg has more edema than right (left leg 3+ and right leg 2+), left distal leg and foot with slightly erythema) Neuro: CN II - XII grossly intact. Extremity motor and sensation grossly intact. Objective Labs 05/06/25 14:36 05/06/25 05:25 Labs: Laboratory Results - last 24 hr 05/02/25 05/03/25 05/03/25 17:21 06:31 09:47 WBC RBC Hgb Hct MCV MCH MCHC RDW Std Deviation Plt Count Neut % (Auto) Lymph % (Auto) [place] % (Auto) Eos % (Auto) Baso % (Auto) Neut # (Auto) Lymph # (Auto) [place] # (Auto) Eos # (Auto) Baso # (Auto) Immature Gran # (Auto) Absolute Nucleated RBC Immature Gran % Nucleated RBC % APTT VBG pH 7.48 VBG pCO2 35 L D VBG pO2 32 D VBG O2 Sat (Rohit) 65 L VBG Base Excess 2 Sodium Potassium Chloride Carbon Dioxide Anion Gap BUN Creatinine Estim Creat Clear Calc eGFR BUN/Creatinine Ratio Glucose Calculated Osmolality Lactic Acid Calcium Corrected Calcium Phosphorus Magnesium Total Bilirubin AST ALT Alkaline Phosphatase Lactate Dehydrogenase 287 H Total Protein Albumin Globulin Albumin/Globulin Ratio Crossmatch See Detail 05/03/25 05/03/25 05/03/25 12:47 18:44 19:32 WBC RBC Hgb 9.6 L D Hct 29.2 L MCV MCH MCHC RDW Std Deviation Plt Count Neut % (Auto) Lymph % (Auto) [place] % (Auto) Eos % (Auto) Baso % (Auto) Neut # (Auto) Lymph # (Auto) [place] # (Auto) Eos # (Auto) Baso # (Auto) Immature Gran # (Auto) Absolute Nucleated RBC Immature Gran % Nucleated RBC % APTT 34.4 VBG pH VBG pCO2 VBG pO2 VBG O2 Sat (Rohit) VBG Base Excess Sodium 140 140 Potassium 4.2 D 4.1 Chloride 102 103 Carbon Dioxide 27.7 28.5 Anion Gap 10 9 BUN 22 10 Creatinine 2.9 H 1.3 D Estim Creat Clear Calc 25.7 L 57.3 L eGFR 18 L 46 L BUN/Creatinine Ratio 8 L 8 L Glucose 145 H 97 Calculated Osmolality 285 278 Lactic Acid 1.2 Calcium 8.1 L 8.8 Corrected Calcium 8.8 9.6 Phosphorus 2.9 1.6 L Magnesium Total Bilirubin AST ALT Alkaline Phosphatase Lactate Dehydrogenase Total Protein Albumin 3.1 L D 3.0 L Globulin Albumin/Globulin Ratio Crossmatch 05/03/25 05/03/25 05/04/25 21:02 23:21 00:28 WBC RBC Hgb Hct MCV MCH MCHC RDW Std Deviation Plt Count Neut % (Auto) Lymph % (Auto) [place] % (Auto) Eos % (Auto) Baso % (Auto) Neut # (Auto) Lymph # (Auto) [place] # (Auto) Eos # (Auto) Baso # (Auto) Immature Gran # (Auto) Absolute Nucleated RBC Immature Gran % Nucleated RBC % APTT > 139.0 H* D > 139.0 H* VBG pH VBG pCO2 VBG pO2 VBG O2 Sat (Rohit) VBG Base Excess Sodium 139 Potassium 4.0 Chloride 104 Carbon Dioxide 27.8 Anion Gap 7 BUN 6 L Creatinine 0.8 D Estim Creat Clear Calc 93.1 eGFR > 60 BUN/Creatinine Ratio 8 L Glucose 125 H Calculated Osmolality 276 Lactic Acid 1.4 Calcium 8.7 Corrected Calcium 9.7 Phosphorus 1.0 L Magnesium Total Bilirubin AST ALT Alkaline Phosphatase Lactate Dehydrogenase Total Protein Albumin 2.7 L Globulin Albumin/Globulin Ratio Crossmatch 05/04/25 05/04/25 04:35 07:21 WBC 10.9 RBC 2.66 L Hgb 8.5 L Hct 25.3 L MCV 95 MCH 32.0 MCHC 33.6 RDW Std Deviation 62.5 H Plt Count 129 L Neut % (Auto) 59 Lymph % (Auto) 27 [place] % (Auto) 9 Eos % (Auto) 3 Baso % (Auto) 1 Neut # (Auto) 6.4 Lymph # (Auto) 2.9 [place] # (Auto) 1.0 H Eos # (Auto) 0.4 Baso # (Auto) 0.1 Immature Gran # (Auto) 0.09 H Absolute Nucleated RBC 0.07 H Immature Gran % 1 H Nucleated RBC % 1 H APTT VBG pH VBG pCO2 VBG pO2 VBG O2 Sat (Rohit) VBG Base Excess Sodium 139 Potassium 4.0 Chloride 103 Carbon Dioxide 27.9 Anion Gap 8 BUN 5 L Creatinine 0.9 Estim Creat Clear Calc 82.8 eGFR > 60 BUN/Creatinine Ratio 6 L Glucose 91 Calculated Osmolality 274 L Lactic Acid 1.3 Calcium 8.7 Corrected Calcium 9.7 Phosphorus 1.1 L Magnesium 1.6 Total Bilirubin 0.5 AST 76 H ALT 127 H Alkaline Phosphatase 60 D Lactate Dehydrogenase Total Protein 4.7 L Albumin 2.7 L Globulin 2.0 L Albumin/Globulin Ratio 1.4 Crossmatch ABG Interpretation ABG results: 04/30/25 04/30/25 05/01/25 16:32 22:23 07:41 ABG pH 7.50 H 7.51 H ABG pCO2 23 L 28 L ABG pO2 140 H 91 D ABG HCO3 18 L 22 ABG O2 Saturation 100 H 99 H ABG Base Excess -4 L -1 VBG pH 6.89 L VBG pCO2 25 L VBG pO2 56 VBG Base Excess -27 L 05/03/25 09:47 ABG pH ABG pCO2 ABG pO2 ABG HCO3 ABG O2 Saturation ABG Base Excess VBG pH 7.48 VBG pCO2 35 L D VBG pO2 32 D VBG Base Excess 2 Quality Measures Quality Measures none Assessment & Plan Assessment Current Active Medications: Generic Name Dose Route Start Last Admin Trade Name Marysol PRN Reason Stop Dose Admin Acetaminophen 650 mg 04/30/25 16:49 Acetaminophen 325 Mg Tablet PO 05/30/25 16:48 Q4HR PRN PAIN SCALE 1-3 (mild Dextrose 25 ml 04/30/25 16:58 Dextrose 50%-Water Inj 50 Ml Syringe IV 05/30/25 16:57 Q15MIN PRN BG 50-70 responsive npo pt Dextrose 50 ml 04/30/25 16:58 Dextrose 50%-Water Inj 50 Ml Syringe IV 05/30/25 16:57 Q15MIN PRN BG <50 OR BG <70 & pt unresponsive Glucagon 1 mg 04/30/25 16:58 Glucagon Inj 1 Mg Vial IM Q15MIN PRN BG <70, and no IV access Heparin Sodium (Porcine) 3,000 unit 04/30/25 22:13 05/04/25 03:34 Heparin Sod Inj 1000 Unit/Ml Vial 10 Ml INDWELLCAT 05/14/25 22:12 3,000 unit X1 PRN Administration DIALYSIS Albumin Human 25 gm in 100 mls @ 100 mls/hr 04/30/25 20:35 05/01/25 17:52 Albuminar-25 Ivpb IV Infused PRN PRN Infusion DIALYSIS Piperacillin Sod/Tazobactam 50 mls @ 100 mls/hr 05/01/25 18:00 05/04/25 06:34 Sod 2.25 gm/ Sodium Chloride IV 05/08/25 17:59 100 mls/hr Q6HR RIANNA Administration Heparin Sodium/Dextrose 25,000 unit in 250 mls @ 10 mls/hr 05/02/25 12:15 05/04/25 07:08 Heparin In D5w Ivpb IV 05/16/25 12:14 0 units/kg/hr .Q24H RIANNA 0 mls/hr Titration Protocol 10.616 UNITS/KG/HR Norepinephrine/Dextrose 8 mg in 250 mls @ 8.831 mls/hr 05/02/25 16:03 05/04/25 04:45 Levophed In D5w 8mg/250ml IV 06/01/25 16:02 0 mcg/kg/min .Q24H PRN 0 mls/hr PER PROTOCOL Titration Protocol 0.05 MCG/KG/MIN Magnesium Sulfate 4 gm in 50 mls @ 12.5 mls/hr 05/04/25 07:35 05/04/25 08:03 Magnesium Sulfate Ivpb IV 05/04/25 11:34 12.5 mls/hr X1 ONE Administration Sodium Phosphate 30 mmol/ 510 mls @ 62.5 mls/hr 05/04/25 07:35 05/04/25 08:05 Sodium Chloride IV 05/04/25 15:44 62.5 mls/hr X1 ONE Administration Levothyroxine Sodium 50 mcg 05/02/25 06:00 05/04/25 06:34 Levothyroxine Sodium 25 Mcg Tablet PO 06/01/25 05:59 50 mcg ACBR RIANNA Administration Metoprolol Succinate 50 mg 05/01/25 09:00 05/02/25 08:05 Metoprolol Succinate Xl 25 Mg Tabcr PO 05/31/25 08:59 Not Given QDAY RIANNA Plan 64-year-old female with a past medical history significant for a cerebrovascular accident, atrial fibrillation, heart failure with reduced ejection fraction(25-30% in January 2023), chronic kidney disease, and hypothyroidism presents from a nursing home facility for evaluation of abdominal pain. Patient admitted to ICU following wide-complex tachycardia in the setting of severe hyperkalemia. Admitted for close monitoring. Patient continues to be hypotensive despite being on pressors and being given fluid boluses. It is currently suspected that patient's low blood pressure is due to the temporarily impaired function of the kidneys secondary to hypoperfusion from septic shock and that continued circulatory support via fluids and pressors with antibiotic treatment of her UTI will eventually lead to normotensive status. Patient will also be receiving HD today for her oliguria 2/2 ARIANA on CKD 2/2 ATN 2/2 hypoperfusion. BARREL BRANDER: #History of CVA Back at baseline Plan - Continue home medication: PO atorvastatin 20 mg qD #Acute encephalopathy, resolved 10/03 to metabolic CVS: #Hypotension #Dilated cardiomyopathy (estimated LVEF 25-30% from 02/13/23 echocardiogram) Initially, patient's hypotension was attributed to septic shock On 05/02, Levophed was weaned off in preparation for down-grade to floors and patient's MAP maintained in the 70s throughout the day before abruptly dropping into the 50s around 2 PM Bedside ultrasound was done and IVC demonstrated >50% collapsibility and a 1 L IV LR bolus was given. However, patient's MAP still did not improve and Levophed had to be resumed It is currently suspected that patient's low blood pressure is due to the temporarily impaired function of the kidneys secondary to hypoperfusion and that continued circulatory support via fluids and pressors with antibiotic treatment of her UTI will eventually lead to normotensive status Adrenal insufficiency is an alternative differential to explain the persistent hypotension but is less likely due to patient's hypokalemia (however, have ordered AM cortisol and will consider IV steroids just in case) DDx: hypovolemic shock, cardiogenic shock, adrenal insufficiency Dx: -Bedside ultrasound showed >50% IVC collapsibility -02/13/23 echocardiogram showed dilated cardiomyopathy with severe global hypokinesis and estimated LVEF 25-30% -AM cortisol has been ordered, pending Rx: - Wean Levophed -CRRT today -Per Nephrology recommendations, follow up on AM cortisol - Outpatient Follow up with Urology for Staghorn calculi RRx: -Monitor blood pressure #Atrial fibrillation with RVR Secondary to UTI Plan: -Continue heparin anticoagulation -Continue Zosyn for UTI ?Keep potassium above 4 and magnesium above 2 at all times #History of reduced ejection fraction Last echo in January 2023 showed ejection fraction 25 to 30% BNP on admission 6 Plan: ?Strict CHIQUIS's ?ECHO ordered PULM: No active issue GI: #Transaminitis (improving) Likely secondary to hypoperfusion AST and ALT elevation, ALP normal, Bilirubin normal 05/03: AST improved from 205 to 102 and ALT improved from 174 to 133 (likely due to improved perfusion of the liver via fluids and pressors) Plan - Treat shock - Follow AM labs RENAL: #ARIANA on chronic CKD Currently believed to be 2/2 renal hypoperfusion 2/2 cardiogenic shock vs. hypovolemic shock Postrenal obstructive etiology 2/2 staghorn calculi could also be a contributing factor Plan: ?Nephrology consulted, Dr Landry, follow recommendations ?HD today ?Renally dose medications ?Avoid nephrotoxic medication #Lactic acidosis (resolved) Lactic acid has down-trended to 1.9 from 4.9 ENDO #History of hypothyroidism TSH within normal limits Plan ? Continue levothyroxine HEME #Macrocytic anemia Hemoglobin 8, MCV 102 Vitamin B12, folate level normal Iron panel Plan: ?Transfuse pRBC if hemoglobin less than 7 #Coagulopathy PT 15.9 INR 1.5 Fibrinogen 269 Platelets 120 Patient is on rivaroxaban 15 mg daily Not currently bleeding DIC panel negative Plan ?Monitor for signs of bleeding -Swapped rivaroxaban for heparin ID #Septic Shock 2/ to #Urinary tract infection UA: leuk positive, nitrite positive, WBC 611 Procal 0.19 LA 9.3 -> 3.8 -> 2.2 On Low dose Levophed Plan ?Follow urine culture ?Continue Zosyn - Continue Levophed to keep MAP >65 - Continue giving fluid boluses if responsive to fluids Health Maintenance: Diet: Cardiac, Renal GI prophylaxis: None DVT prophylaxis: Heparin 5000 units every 8 hours Antibiotics: Zosyn CODE STATUS: Full Disposition: Pending perm cath placement, CRRT Plan of care discussed with Attending Dr. Jesenia Kimble MD PGY 2 Disclaimer: This note was dictated by speech recognition. Minor errors in driver education road instructor may be present due to voice recognition software. Attending Provider Attestation/Addendum Patient seen and examined with the above resident, Jonatan Kimble MD. I agree with the findings, assessment, and plan of care as documented. Patient remains borderline hypotensive, unable to transition to traditional hemodialysis. Remains on vasopressors and will perform volume removal using Tablo/CRRT. Patient continues to be on appropriate antibiotic course and will treat adequately for likely urinary source, procalcitonin was negative though clinically continues to suggest potential precipitant was an infection. Patient appetite seems to have improved significantly and she is taking good p.o. Severe protein calorie malnutrition notable with hypoalbuminemia likely contributing to significant edema. She also has history of heart failure which appears to be adequately compensated now with evidence of hypoxic respiratory failure secondary to pulmonary edema. We have not started goal-directed medical therapy secondary to hypotension and need for vasopressor support. Patient is concerned about her ability to return to her nursing home facility where her is also a resident. Patient is aware that she may need long-term dialysis. Alternative etiologies such as adrenal insufficiency seem less likely given his continued slow improvement. Notably her encephalopathy is also resolved. Patient remains in ICU due to need for renal replacement therapy with vasopressor support. Total critical care time: I personally spent 45 minutes for review of physiologic parameters, directing plan of care throughout the day, coordination of care with other specialties, and counseling patient at bedside. This is exclusive of time spent teaching spent performing any separate billable procedures. Patient remains at significant risk for further morbidity and mortality warranting close monitoring and care only available in the ICU critical care services for acute on chronic renal failure, septic shock, urinary tract infection, acute encephalopathy, atrial fibrillation, heart failure preserved ejection fraction.
[2025-05-04 09:10] LABS: INR 1.3 (0.9-1.3); Prothrombin Time 13.5 Seconds (9.0-12.2)
[2025-05-04 09:12] LABS: Albumin, Serum 2.7 gm/dL (3.4-4.8); Anion Gap 8 (7-16); BUN/Creatinine Ratio 5 Ratio (12-20); Blood Urea Nitrogen < 5 mg/dL (9-23); Calcium 8.5 mg/dL (8.3-10.6); Calcium (Corrected) 9.5 mg/dL (8.5-10.1); Carbon Dioxide 26.2 mMol/L (20.0-31.0); Chloride 104 mMol/L (98-107); Creatinine (Component) 1.0 mg/dL (0.6-1.3); Estimated Creatinine Clearance 75.7 mL/min (>60); Glucose 76 mg/dL (74-106); Osmolality,Calculated 271 (275-295); Phosphorous 1.1 mg/dL (2.4-5.1); Potassium 4.0 mMol/L (3.4-5.1); Sodium 138 mMol/L (136-145); eGFR > 60 See Note
[2025-05-04 09:13] LABS: Partial Thromboplastin Time > 139.0 Seconds (22.0-36.0)
[2025-05-04] MEDS: Norepinephrine/D5W 8mg/250ml 8 MG/250 ML BAG 8.831 MG IV (10:02)
[2025-05-04] MEDS: MIDODRINE 5 MG TABLET 10 MG PO ×3 (11:07→21:17)
[2025-05-04] MEDS: TUBERCULIN PPD INJ 5 UNIT/0.1 ML DOSE ID (11:09)
--- NOTE | 2025-05-04 11:58 | ESPR_ITS ---
RE: RUBÉN VIVAR : 1960 DATE OF SERVICE: 05/04/2025 HISTORY OF PRESENT ILLNESS: Briefly, she is a 64-year-old woman with history of CVA, atrial fibrillation, heart failure with reduced ejection fraction of 25-30% done on 11/04/2022, hypothyroidism and resident of [facility], who presented to the emergency room on 04/30/2025 with abdominal pain for 2 days prior to admission. When she presented to the emergency room on 04/30/2025, she was found with a potassium of 9.5 with huge T-wave on EKG, CO2 of less than 10, white count of 12,000 and was immediately admitted and transferred to ICU where she emergently dialyzed. Potassium level and lactic acid normalized with dialysis treatment. Her CT of the chest, abdomen, and pelvis with IV contrast revealed extensive left staghorn calculi and left urinary tract infection pattern. The patient remains oliguric. She was started on PRRT last night for 12 hours and about 1.2 liters of fluid was removed with the help of Levophed and IV albumin. CURRENT MEDICATIONS: 1. Acetaminophen. 2. Albumin. 3. Sodium carbonate 600 mg p.o. x1. 4. Heparin drip. 5. Levothyroxine 50 mcg p.o. daily. 6. Magnesium. 7. Metoprolol. 8. Zosyn 2.25 g IV every 8 hours. 9. Sodium phosphorus 30 mmol IV x1. 10. Potassium chloride 40 mEq x1. PHYSICAL EXAMINATION: GENERAL: She is more awake, eating her breakfast. VITAL SIGNS: Blood pressure of 91/75, pulse rate of 99, off Levothyroxine. HEENT: Anicteric sclerae. Normocephalic. NECK: Supple. No JVD. CHEST AND LUNGS: Symmetric expansion. Decreased breath sounds bilaterally. HEART: Without murmur. ABDOMEN: Soft, distended. EXTREMITIES: Bilateral lower extremity edema 2+. LABORATORY DATA: Hemoglobin 8.5, WBC 10,900, platelet count 120,000. Sodium 138, potassium 4, chloride 104, CO2 of 26.2, BUN less than 9, creatinine 1, lactic acid 1.3, phosphorus 1.1, AST 76, ALT 127, and albumin 2.7. ASSESSMENT: 1. Oliguric acute kidney injury secondary to acute tubular necrosis following hemodynamic instability and hypotension resulting in hypoperfusion and acute tubular necrosis. 2. Hyperkalemia secondary to severe metabolic acidosis and acute kidney injury, now resolved. 3. Lactic acidosis secondary to hypotension and septic shock versus cardiogenic shock, now resolved. 4. Staghorn calculi on the left kidney. 5. Heart failure with reduced ejection fraction of 25-30%. 6. Volume overload versus cardiogenic shock possibly secondary to decompensated congestive heart failure versus severe hypoalbuminemia from poor nutritional state causing decreased osmotic intravascular pressure causing severe edema. PLAN: We are going to continue PRRT today for 12 hours followed by another 12 hours of ultrafiltration only. The patient was already referred to urology for possible PCN versus lithotripsy. DT: 10:40:57 TT: 11:46:00 Ref: [id number] - TID: [id number] MTDD
[2025-05-04 12:55] LABS: Lactate (Lactic Acid) 1.5 mMol/L (0.4-2.0)
[2025-05-04 16:35] LABS: Albumin, Serum 2.8 gm/dL (3.4-4.8); Anion Gap 11 (7-16); BUN/Creatinine Ratio 6 Ratio (12-20); Blood Urea Nitrogen < 5 mg/dL (9-23); Calcium 8.4 mg/dL (8.3-10.6); Calcium (Corrected) 9.4 mg/dL (8.5-10.1); Carbon Dioxide 25.4 mMol/L (20.0-31.0); Chloride 102 mMol/L (98-107); Creatinine (Component) 0.8 mg/dL (0.6-1.3); Estimated Creatinine Clearance 95.2 mL/min (>60); Glucose 99 mg/dL (74-106); Osmolality,Calculated 272 (275-295); Phosphorous 2.5 mg/dL (2.4-5.1); Potassium 4.0 mMol/L (3.4-5.1); Sodium 138 mMol/L (136-145); eGFR > 60 See Note
[2025-05-04] MEDS: ALBUMIN HUMAN 25% IVPB 25 GM/100 ML BTL IV (16:56)
[2025-05-04 18:12] LABS: Lactate (Lactic Acid) 1.8 mMol/L (0.4-2.0)
--- NOTE | 2025-05-04 22:04 | ESCONSULT_ITS ---
RE: RUBÉN VIVAR : 1960 DATE OF CONSULTATION: 05/04/2025 The patient is seen by me with RN in ICU. Chart is reviewed. Consult is dictated. ESTABLISHED DIAGNOSES: 1. Acute encephalopathy, status post history of CVA. 2. Atrial fibrillation secondary to severe hyperkalemia. Potassium is 9.5. 3. History of reduced ejection fraction. Last echo in 01/2023 shows ejection fraction of 20%-30%. 4. Acute hypoxic respiratory failure. 5. Acute renal failure. The patient is on dialysis with chronic kidney disease and severe hyperkalemia. 6. History of hypothyroidism. HISTORY OF PRESENT ILLNESS: This is a 64-year-old. This patient is patient of care home. She has past medical history of CVA, atrial fibrillation, heart failure with reduced ejection fraction, chronic kidney disease, and hypothyroidism. The patient had CAT scan of the abdomen and pelvis done and this revealed staghorn calculi, left kidney, nonobstructive. The patient came to the emergency room with history of mid to upper abdominal pain. It was moderate. She has nausea and multiple episodes of nonbloody, nonbilious vomiting. In the emergency room, her temperature was 100.4, respiratory rate is 19, pulse is 74, and blood pressure is 157/117. EKG was done. This revealed atrial fibrillation. She denies any history of difficulty in urinating. The patient was found to have serum creatinine of 6.2 and she is on dialysis. Past medical history, family history, review of the system, personal history, please refer to patient's history form dated 04/30/2025, it is in HPI, in EMR. NARRATIVE REVIEW OF THE SYSTEM: All systems reviewed, negative except as stated. PHYSICAL EXAMINATION: GENERAL: Condition is satisfactory. At this time, patient is not in acute distress. She is oriented x2. HEENT: Atraumatic. NECK: Supple. Trachea is central. Thyroid is not enlarged. EXTREMITIES: Revealed no edema, cyanosis or clubbing. ABDOMEN: No masses. Liver, spleen, and kidney not palpable. No CVA tenderness. VARIOUS LABORATORIES: WBC is 12.1 and hemoglobin is 11.7. Serum potassium is 9.5, BUN is 65, and creatinine 6.2. CAT scan has revealed staghorn calculi, left kidney, nonobstructive. PLAN: 1. Urine for culture and sensitivity. Treat for UTI according to the culture sensitivity report 2. Continue management of her renal failure and hyperkalemia. At this time, patient is not a candidate for any surgical intervention. The stone is nonobstructive and patient is not in a stable condition for PCN or doing a laser stone fragmentation and basketing or lithotripsy. She should be treated conservatively from a stone point of view and she can follow up with me in my office in 3 months' time. DT: 17:07:38 TT: 22:02:00 Ref: - TID: [id number] MTDD
[2025-05-04 23:05] LABS: Albumin, Serum 2.7 gm/dL (3.4-4.8); Anion Gap 9 (7-16); BUN/Creatinine Ratio 5 Ratio (12-20); Blood Urea Nitrogen 6 mg/dL (9-23); Calcium 7.9 mg/dL (8.3-10.6); Calcium (Corrected) 8.9 mg/dL (8.5-10.1); Carbon Dioxide 25.0 mMol/L (20.0-31.0); Chloride 105 mMol/L (98-107); Creatinine (Component) 1.1 mg/dL (0.6-1.3); Estimated Creatinine Clearance 69.2 mL/min (>60); Glucose 114 mg/dL (74-106); Osmolality,Calculated 276 (275-295); Phosphorous 2.2 mg/dL (2.4-5.1); Potassium 3.6 mMol/L (3.4-5.1); Sodium 139 mMol/L (136-145); eGFR 56 See Note
[2025-05-05] VITALS (282 sets, daily range): BP systolic 80–242; BP diastolic 45–204; PULSE 65–256; RESP 4–51; TEMP 36–36.7; O2SAT 82–100
--- NOTE | 2025-05-05 | XR_ITS ---
Examination: Venous access removal nontunneled dialysis catheter Date and time: May 05, 2025 3:00 PM INDICATIONS: No longer needed for temporary dialysis catheter, permanent tunneled dialysis catheter inserted today TECHNIQUE AND FINDINGS: Informed consent provided. Skin prepped over the left femoral catheter site and sterile drape applied hand hygiene Successful removal of the temporary dialysis catheter Direct pressure applied for control of hemostasis No estimated blood loss IMPRESSION: Successful venous assess removal nontunneled dialysis catheter
--- NOTE | 2025-05-05 | XR_ITS ---
Ultrasound-guided needle placement right internal jugular vein Permanent tunneled dialysis catheter insertion, percutaneous Fluoroscopy AP chest, portable, single view Date and time of procedure: May 05, 2025 1346 hours INDICATIONS: Renal failure, need for long-term dialysis with permanent tunneled dialysis catheter Informed consent provided Technique: A timeout was completed verifying correct patient, procedure, site, positioning, and special equipment if applicable. The patient was placed in a dependent position appropriate for dialysis catheter placement based on the vein to be cannulated. The patient'sright neck was prepped and draped in sterile fashion. Maximum Sterile Barrier Technique used including cap, mask, sterile gown, sterile gloves, and sterile full body drape. If ultrasound technique used: sterile gel and sterile probe covers. Hand Hygiene performed using proper scrub, soap and water, or alcohol-based hand rub. 1% lidocaine was used to anesthetize the surrounding skin area The Site Xray Imateke portable ultrasound apparatus was utilized to confirm patency of the right internal jugular vein Utilizing ultrasonographic guidance successful 21-gauge needle puncture into the right internal jugular vein Ultrasound images were recorded and stored. Vessel micropuncture was performed with 21-gauge needle. 0.18 wire guide is introduced into the vein. 0.18 wire is introduced into the vena cava under fluoroscopy. Subcutaneous tunnel formed in the upper chest. Permanent tunneled dialysis catheter placed in the subcutaneous tunnel. Dilators were introduced over the J-wire guide. Tunneled dialysis catheter is introduced through a dilator with venous sheath into the superior vena cava under fluoroscopic guidance. The catheter is sutured in place to the skin and a sterile dressing applied. Perfusion to the extremity distal to the point of catheter insertion is checked and found to be adequate Attending radiologist was present for the entire procedure Estimated blood loss2 cc. The patient tolerated the procedure well and there were no complications Impression: Successful ultrasound-guided needle placement right internal jugular vein Successful permanent tunneled dialysis catheter insertion, percutaneous Fluoroscopy 0.3 minute radiation dose 1.97 milligray 1 spot fluoroscopic chest film. AP chest performed at completion procedure demonstrates satisfactory position dialysis catheter. May use dialysis catheter.
[2025-05-05 03:46] LABS: Basophils # (Auto) 0.1 Thou/mm3 (0.0-0.2); Basophils % (Auto) 1 % (0-2.5); Eosinophils # (Auto) 0.4 Thou/mm3 (0.0-0.5); Eosinophils % (Auto) 4 % (0-10); Hematocrit 25.0 % (36.0-46.0); Immature Granulocytes Auto 0.07 Thou/mm3 (0.00-0.00); Lymphocytes # (Auto) 3.1 Thou/mm3 (1.0-4.8); Lymphocytes % (Auto) 31 % (10-50); Mean Corpuscular HGB Conc 33.2 g/dl (31.0-37.0); Mean Corpuscular Hemoglobin 31.9 pg (25.0-35.0); Mean Corpuscular Volume 96 fL (80-100); Monocytes # (Auto) 0.9 Thou/mm3 (0.0-0.8); Monocytes % (Auto) 9 % (0-12); Neutrophils # (Auto) 5.5 Thou/mm3 (1.8-7.7); Neutrophils % (Auto) 55 % (37-80); Nucleated Red Blood Cell # 0.06 Thou/mm3 (0.00-0.00); Nucleated Red Blood Cell % 1 /100 WBC (0); Platelet Count 106 Thou/mm3 (140-440); RDW Standard Deviation 63.7 fL (36.4-46.3); Red Blood Count 2.60 Miln/mm3 (4.00-5.20); White Blood Count 10.0 Thou/mm3 (3.6-11.0)
[2025-05-05 03:56] LABS: Hemoglobin 8.3 g/dL (12.0-16.0)
[2025-05-05 04:02] LABS: Alanine Aminotransferase 90 U/L (10-49); Albumin, Serum 2.9 gm/dL (3.4-4.8); Albumin/Globulin Ratio 1.5 (1.2-2.2); Alkaline Phosphatase 61 U/L (46-116); Anion Gap 10 (7-16); Aspartate Amino Transferase 40 U/L (0-34); BUN/Creatinine Ratio 4 Ratio (12-20); Bilirubin,Total 0.6 mg/dL (0.3-1.2); Blood Urea Nitrogen 5 mg/dL (9-23); Calcium 8.2 mg/dL (8.3-10.6); Calcium (Corrected) 9.1 mg/dL (8.5-10.1); Carbon Dioxide 24.7 mMol/L (20.0-31.0); Chloride 105 mMol/L (98-107); Creatinine (Component) 1.2 mg/dL (0.6-1.3); Estimated Creatinine Clearance 63.4 mL/min (>60); Globulin 2.0 gm/dL (2.3-3.5); Glucose 85 mg/dL (74-106); Magnesium 1.9 mg/dL (1.6-2.6); Osmolality,Calculated 275 (275-295); Phosphorous 2.3 mg/dL (2.4-5.1); Potassium 3.7 mMol/L (3.4-5.1); Sodium 140 mMol/L (136-145); Total Protein 4.9 gm/dL (5.7-8.2); eGFR 51 See Note
[2025-05-05] MEDS: PIPERACILLIN/TAZO 2.25GM INJ 2.25 GM in SODIUM CHLORIDE 0.9% (Popper) 50 ML IV ×4 (05:30→23:53)
[2025-05-05] MEDS: LEVOTHYROXINE SODIUM 25 MCG TABLET 50 MCG PO (05:34)
[2025-05-05] MEDS: MIDODRINE 5 MG TABLET 10 MG PO ×2 (05:34→22:31)
[2025-05-05] MEDS: NAPH,KPH MBDB 1 PACKET (1.5 GM) PO (09:20)
[2025-05-05] MEDS: Magnesium Sulfate 2 GM Ivpb 2 GM/50 ML BAG IV (09:20)
--- NOTE | 2025-05-05 10:10 | PD.RESPRO ---
Documentation for date of: 05/05/25 Subjective Subjective Interval history: 64-year-old female with a past medical history significant for a cerebrovascular accident, atrial fibrillation, heart failure with reduced ejection fraction(25-30% in January 2023), chronic kidney disease, and hypothyroidism presents from a [facility]pc facility for evaluation of abdominal pain. The pain started two days ago and has been constant since. It is a dull, aching pain located primarily in the [id number] abdomen, and the patient rates its severity as moderate. The pain is accompanied by nausea and multiple episodes of non-bloody, non-bilious vomiting. She also reports feeling anxious and has verbalized a fear of . She denies any recent illness, fevers, chills, chest pain, shortness of breath, dysuria, diarrhea, or changes in bowel habits. ED course: Initial vitals include temperature 100.4, respiratory rate 19, pulse 74, blood pressure 157/117, O2 saturations 99% on 4 L of nasal cannula. EKG showed atrial fibrillation with RVR and wide-complex tachycardia. Notable labs include potassium 9.5, bicarb less than 10, anion gap 18, creatinine 6.2, lactic acid 11.6, corrected calcium 10.2, BNP 2426, Pro-Matias 0.19. VBG pH 6.89. Coagulation studies showed PT 14.6, INR 1.4. CBC showed WBC 12.1, hemoglobin 11, MCV 100.6. Patient was given 1 L of normal saline. Patient received calcium chloride 10% x 1, D50 push x 2, bicarb 50 mEq x 1, sodium bicarb drip started albuterol 5 mg inhaler x 2, IV insulin 5 units x 1, 10 units x 1. In ED urgent hemodialysis catheter was placed through the left femoral vein. Dr Landry has been contacted regarding starting hemodialysis urgently. Past medical history: As stated above. Past surgical history: Unobtainable. Social history: Unobtainable. Patient admitted to ICU following wide-complex tachycardia in the setting of severe hyperkalemia. Admitted for close monitoring. Interval History 05/01/25: Patient's mentation improved since yesterday after hemodialysis session. Bedside ultrasound was done, it was found that the patient is intravascularly depleted. Total of 750 mL of LR was given. Bicarb level improved today to 27. Bicarb drip was stopped. Blood culture from yesterday was positive for GPC. Patient produced about 100ml of urine today and it was suspicious for infection. Sent for urinalysis and urine culture. UA showed UTI. Patient continues to be on Zosyn renally dosed. Doxycline added since 1/2 blood culture from yesterday was positive GPC. Sample may be a contaminant so repeated blood culture today. CT abdomen angiogram was done there were no evidence of ischemic bowel. There is chronic extensive left staghorn calculi. Patient requires Levophed low-dose to maintain a MAP greater than 65. 05/02/25: Patient was given 500 cc's of fluid, had their electrolytes repleted, and started on IV doxycycline 100 mg BID overnight. Patient seen and examined at bedside; they report feeling generally well today with no new complaints or concerns. Patient is currently receiving renally dosed Zosyn and doxycycline for her UTI. Initially, patient's shock was attributed to sepsis; however, at this time, hypovolemia and possible cardiogenic etiology (CHF w/ EF of 20-25%) seem more likely. Today, Levophed was weaned off and patient's MAP maintained in the 70s throughout the day, until 2 PM when it dropped to the 50s. Bedside ultrasound was done and IVC demonstrated >50% collapsibility; a 1 L Ringer's lactate IVF bolus was given. Patient's MAP still did not improve and Levophed had to be resumed. Nephrology, Dr Landry, recommended AM cortisol and possibly starting IV steroids tomorrow as adrenal insufficiency may be a possible cause of the hypotension. She also recommended a Urology consultation for possible lithotripsy for left staghorn calculi. 05/03/25: No overnight events. Patient seen and examined at bedside; they report feeling generally well today with no new complaints or concerns. Pertinent labs today include: Hemoglobin dropped to 6.8 from 7.7, platelet count dropped to 114 from 127, APTT drop from 130.9-37.3, potassium dropped to 3.0 from 4.0, chloride bump to 108 from 102, creatinine bump to 2.5 from 2.1, lactic acid drop to 1.9 from 4.9, corrected calcium dropped from 9.0-8.3, magnesium dropped to 2.1 from 3.2, AST drop to 102 from 205, ALT dropped to 133 from 174, LDH 287, and albumin dropped to 2.5 from 3.2. A.m. cortisol is pending. Patient continues to be hypotensive despite being on pressors and being given fluid boluses. It is currently suspected that patient's low blood pressure is due to the temporarily impaired function of the kidneys secondary to hypoperfusion from septic shock and that continued circulatory support via fluids and pressors with antibiotic treatment of her UTI will eventually lead to normotensive status. Patient will also be receiving HD today for her oliguria 2/2 ARIANA on CKD 2/2 ATN 2/2 hypoperfusion. 05/04/2025: No overnight events reported, patient. This morning patient seen and examined at bed, she says she feels well. Denies any chest pain, shortness of breath hemoglobin remained stable at 8.5, BUN 5, CR 0.9, phosphorus 1.1, magnesium 1.6. Today patient scheduled for CRRT 24 hours as per nephrology. Levophed will also be weaned and patient started on midodrine p.o. 3 times daily with albumin as needed for hypotension during CRRT. Urology assessed the patient no emergent need for intervention at this time for staghorn calculi as it is not obstructing and patient is a poor surgical candidate, will schedule for outpatient follow-up. Patient will need PermCath placement for outpatient dialysis, this will be done tomorrow as patient needs to be off of heparin infusion for 24 hours as per IR. PPD was also placed today in preparation for outpatient dialysis. NaPhos 30mmol, 1 packet neutaphos and Magnesium sulphate 4g IV given 05/05/2025: No overnight events. Patient seen and examined at bedside; they report feeling generally well today with no new complaints or concerns.Over past 24 hours patient was on CRRT, BUN and CR 5 and 1.2 respectively. Phosphorus 2.3 and Mg 1.9. Patient was repleted with 1 packet Neutra-Phos and magnesium sulfate 2 g IV x 1. Hepatitis panel was negative and PPD pending read at 11 AM 05/06/2025. Currently outpatient chair time still needs to be arranged, social workers were notified. Levophed was discontinued since yesterday. Exam Vital Signs Temp Pulse Resp BP Pulse Ox O2 Del Method O2 Flow Rate 97.3 F 85 24 H 102/66 99 Room Air 1 05/05/25 04:16 05/05/25 10:00 05/05/25 07:45 05/05/25 10:00 05/05/25 07:45 05/05/25 00:00 05/01/25 02:34 FiO2 96 05/01/25 14:45 Narrative Exam General: Alert and oriented x 3. Not in distress, following commands. HEENT: Atraumatic. PERRL. EOMI. Neck supple. CVS: S1-S2. Irregular rhythm. RESP: Decreased air entry bilaterally. No crackles heard. GI: Soft, obese nontender. Bowel sounds heard. No abdominal distention Skin: Warm, dry, intact. Sacral decubitus ulcer that is healing. Left posterior thigh excoriation, left heel eschar, left leg has more edema than right (left leg 3+ and right leg 2+), left distal leg and foot with slightly erythema) Neuro: CN II - XII grossly intact. Extremity motor and sensation grossly intact. Objective Labs 05/06/25 14:36 05/06/25 05:25 Labs: Laboratory Results - last 24 hr 05/04/25 05/04/25 05/04/25 12:27 15:51 18:07 WBC RBC Hgb Hct MCV MCH MCHC RDW Std Deviation Plt Count Neut % (Auto) Lymph % (Auto) [place] % (Auto) Eos % (Auto) Baso % (Auto) Neut # (Auto) Lymph # (Auto) [place] # (Auto) Eos # (Auto) Baso # (Auto) Immature Gran # (Auto) Absolute Nucleated RBC Immature Gran % Nucleated RBC % Sodium 138 Potassium 4.0 Chloride 102 Carbon Dioxide 25.4 Anion Gap 11 BUN < 5 L Creatinine 0.8 Estim Creat Clear Calc 95.2 eGFR > 60 BUN/Creatinine Ratio 6 L Glucose 99 Calculated Osmolality 272 L Lactic Acid 1.5 1.8 Calcium 8.4 Corrected Calcium 9.4 Phosphorus 2.5 Magnesium Total Bilirubin AST ALT Alkaline Phosphatase Total Protein Albumin 2.8 L Globulin Albumin/Globulin Ratio 05/04/25 05/05/25 22:24 03:04 WBC 10.0 RBC 2.60 L Hgb 8.3 L Hct 25.0 L MCV 96 MCH 31.9 MCHC 33.2 RDW Std Deviation 63.7 H Plt Count 106 L Neut % (Auto) 55 Lymph % (Auto) 31 [place] % (Auto) 9 Eos % (Auto) 4 Baso % (Auto) 1 Neut # (Auto) 5.5 Lymph # (Auto) 3.1 [place] # (Auto) 0.9 H Eos # (Auto) 0.4 Baso # (Auto) 0.1 Immature Gran # (Auto) 0.07 H Absolute Nucleated RBC 0.06 H Immature Gran % 1 H Nucleated RBC % 1 H Sodium 139 140 Potassium 3.6 3.7 Chloride 105 105 Carbon Dioxide 25.0 24.7 Anion Gap 9 10 BUN 6 L 5 L Creatinine 1.1 1.2 Estim Creat Clear Calc 69.2 63.4 eGFR 56 L 51 L BUN/Creatinine Ratio 5 L 4 L Glucose 114 H 85 Calculated Osmolality 276 275 Lactic Acid Calcium 7.9 L 8.2 L Corrected Calcium 8.9 9.1 Phosphorus 2.2 L 2.3 L Magnesium 1.9 Total Bilirubin 0.6 AST 40 H ALT 90 H Alkaline Phosphatase 61 Total Protein 4.9 L Albumin 2.7 L 2.9 L Globulin 2.0 L Albumin/Globulin Ratio 1.5 ABG Interpretation ABG results: 04/30/25 04/30/25 05/01/25 16:32 22:23 07:41 ABG pH 7.50 H 7.51 H ABG pCO2 23 L 28 L ABG pO2 140 H 91 D ABG HCO3 18 L 22 ABG O2 Saturation 100 H 99 H ABG Base Excess -4 L -1 VBG pH 6.89 L VBG pCO2 25 L VBG pO2 56 VBG Base Excess -27 L 05/03/25 09:47 ABG pH ABG pCO2 ABG pO2 ABG HCO3 ABG O2 Saturation ABG Base Excess VBG pH 7.48 VBG pCO2 35 L D VBG pO2 32 D VBG Base Excess 2 Quality Measures Quality Measures none Assessment & Plan Assessment Current Active Medications: Generic Name Dose Route Start Last Admin Trade Name Freq PRN Reason Stop Dose Admin Acetaminophen 650 mg 04/30/25 16:49 Acetaminophen 325 Mg Tablet PO 05/30/25 16:48 Q4HR PRN PAIN SCALE 1-3 (mild Dextrose 25 ml 04/30/25 16:58 Dextrose 50%-Water Inj 50 Ml Syringe IV 05/30/25 16:57 Q15MIN PRN BG 50-70 responsive npo pt Dextrose 50 ml 04/30/25 16:58 Dextrose 50%-Water Inj 50 Ml Syringe IV 05/30/25 16:57 Q15MIN PRN BG <50 OR BG <70 & pt unresponsive Glucagon 1 mg 04/30/25 16:58 Glucagon Inj 1 Mg Vial IM Q15MIN PRN BG <70, and no IV access Heparin Sodium (Porcine) 3,000 unit 04/30/25 22:13 05/04/25 23:21 Heparin Sod Inj 1000 Unit/Ml Vial 10 Ml INDWELLCAT 05/14/25 22:12 3,000 unit X1 PRN Administration DIALYSIS Albumin Human 25 gm in 100 mls @ 100 mls/hr 04/30/25 20:35 05/04/25 16:56 Albuminar-25 Ivpb IV 100 mls/hr PRN PRN Administration DIALYSIS Piperacillin Sod/Tazobactam 50 mls @ 100 mls/hr 05/01/25 18:00 05/05/25 05:30 Sod 2.25 gm/ Sodium Chloride IV 05/06/25 06:00 100 mls/hr Q6HR RIANNA Administration Heparin Sodium/Dextrose 25,000 unit in 250 mls @ 10 mls/hr 05/02/25 12:15 05/04/25 07:08 Heparin In D5w Ivpb IV 05/16/25 12:14 0 units/kg/hr On Hold: 05/04/25 07:05 .Q24H RIANNA 0 mls/hr Protocol Titration 10.616 UNITS/KG/HR Norepinephrine/Dextrose 8 mg in 250 mls @ 8.831 mls/hr 05/02/25 16:03 05/04/25 12:56 Levophed In D5w 8mg/250ml IV 06/01/25 16:02 0 mcg/kg/min .Q24H PRN 0 mls/hr PER PROTOCOL Titration Protocol 0.05 MCG/KG/MIN Levothyroxine Sodium 50 mcg 05/02/25 06:00 05/05/25 05:34 Levothyroxine Sodium 25 Mcg Tablet PO 06/01/25 05:59 50 mcg ACBR RIANNA Administration Metoprolol Succinate 50 mg 05/01/25 09:00 05/02/25 08:05 Metoprolol Succinate Xl 25 Mg Tabcr PO 05/31/25 08:59 Not Given On Hold: 05/02/25 16:26 QDAY RIANNA Midodrine 10 mg 05/04/25 11:00 05/05/25 05:34 Midodrine 5 Mg Tablet PO 06/03/25 10:59 10 mg TID RIANAN Administration Plan 64-year-old female with a past medical history significant for a cerebrovascular accident, atrial fibrillation, heart failure with reduced ejection fraction(25-30% in January 2023), chronic kidney disease, and hypothyroidism presents from a [facility]pc facility for evaluation of abdominal pain. Patient admitted to ICU following wide-complex tachycardia in the setting of severe hyperkalemia. Admitted for close monitoring. 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 However, patient's MAP still did not improve and Levophed had to be resumed It is currently suspected that patient's low blood pressure is due to the temporarily impaired function of the kidneys secondary to hypoperfusion and that continued circulatory support via fluids and pressors with antibiotic treatment of her UTI will eventually lead to normotensive status Adrenal insufficiency is an alternative differential to explain the persistent hypotension but is less likely due to patient's hypokalemia (however, have ordered AM cortisol and will consider IV steroids just in case) DDx: hypovolemic shock, cardiogenic shock, adrenal insufficiency Dx: -Bedside ultrasound showed >50% IVC collapsibility -02/13/23 echocardiogram showed dilated cardiomyopathy with severe global hypokinesis and estimated LVEF 25-30% -AM cortisol has been ordered, pending Rx: -CRRT today -Per Nephrology recommendations, follow up on AM cortisol - Outpatient Follow up with Urology for Staghorn calculi RRx: -Monitor blood pressure #Atrial fibrillation with RVR Secondary to UTI Plan: -Continue heparin anticoagulation ?Keep potassium above 4 and magnesium above 2 at all times #History of reduced ejection fraction Last echo in January 2023 showed ejection fraction 25 to 30% BNP on admission 2426 Plan: ?Strict CHIQUIS's ?ECHO ordered PULM: No active issue GI: #Transaminitis (improving) Likely secondary to hypoperfusion AST and ALT elevation, ALP normal, Bilirubin normal 05/03: AST improved from 205 to 102 and ALT improved from 174 to 133 (likely due to improved perfusion of the liver via fluids and pressors) Plan - Follow AM labs RENAL: #ARIANA on chronic CKD Currently believed to be 2/2 renal hypoperfusion 2/2 cardiogenic shock vs. hypovolemic shock Postrenal obstructive etiology 2/2 staghorn calculi could also be a contributing factor Plan: ?Nephrology consulted, Dr Landry, follow recommendations - Permanent catheter placement today ?CRRT today ?Renally dose medications ?Avoid nephrotoxic medication ENDO #History of hypothyroidism TSH within normal limits Plan ? Continue levothyroxine HEME #Macrocytic anemia Hemoglobin 8, MCV 102 Vitamin B12, folate level normal Iron panel Plan: ?Transfuse pRBC if hemoglobin less than 7 #Coagulopathy PT 15.9 INR 1.5 Fibrinogen 269 Platelets 120 Patient is on rivaroxaban 15 mg daily Not currently bleeding DIC panel negative Plan ?Monitor for signs of bleeding -Swapped rivaroxaban for heparin ID #Septic Shock / to #Urinary tract infection - resolved UA: leuk positive, nitrite positive, WBC 611 Procal 0.19 LA 9.3 -> 3.8 -> 2.2 On Low dose Levophed Plan ?Follow urine culture ?Discontinue Zosyn Health Maintenance: Diet: Cardiac, Renal GI prophylaxis: None DVT prophylaxis: Heparin 5000 units every 8 hours CODE STATUS: Full Disposition: Clinically stable for downgrade to the floor Plan of care discussed with Attending Dr. Jesenia Kimble MD PGY 2 Disclaimer: This note was dictated by speech recognition. Minor errors in cash applications manager may be present due to voice recognition software. Attending Provider Attestation/Addendum Patient seen and examined with above resident, Jonatan Kimble MD. agree with the findings, assessment, and plan of care as document except for any differences below. Patient continues to do well with intermittent requirement for vasopressor support during hemodialysis. Appropriate transition to continuous renal replacement therapy with Tablo. Will continue to remove fluid at the discretion of nephrology. They will transition off of IV vasopressor support, patient was started on midodrine. Patient's A-fib adequately controlled on no therapy specifically for rate control. Will have to gradually reintroduce GDMT as blood pressure tolerates. Blood pressure responded extremely well to midodrine and the single dose was held this afternoon. Patient to complete course of IV antibiotics with known history of ESBL in the past, she remains on contact precautions. Short course given negative procalcitonin even in the setting of renal dysfunction. Patient's renal function has not recovered and is unlikely to at this point and a tunneled dialysis catheter was placed by IR this afternoon. Temporary dialysis catheter was removed appropriately to mitigate risk of infection. Patient continues to receive appropriate prophylaxis. Can resume heparin, will consider transition to DOAC rivaroxaban is contraindicated in renal disease and patient would likely benefit from transition to apixaban. Dr Landry has requested additional 12 hours of renal replacement therapy for additional fluid removal. Will continue to monitor in the ICU as this is the only location where HAT MARKER can be done with appropriate close monitoring. Total critical care time: I personally spent 35 minutes reviewing physiologic parameters, directing plan of care throughout the day, coordination of care with other specialists, and counseling patient at bedside. She remains at significant risk of morbidity and mortality warranting close monitoring and care only available in the ICU. Critical care services required for septic shock, urinary tract infection, acute renal failure on chronic CKD, atrial fibrillation with RVR, dilated cardiomyopathy with heart failure, reduced ejection fraction.
[2025-05-05 10:31] LABS: INR 1.2 (0.9-1.3); Partial Thromboplastin Time 32.7 Seconds (22.0-36.0); Prothrombin Time 12.7 Seconds (9.0-12.2)
[2025-05-05 10:36] LABS: Albumin, Serum 2.9 gm/dL (3.4-4.8); Anion Gap 11 (7-16); BUN/Creatinine Ratio 5 Ratio (12-20); Blood Urea Nitrogen 7 mg/dL (9-23); Calcium 8.1 mg/dL (8.3-10.6); Calcium (Corrected) 9.0 mg/dL (8.5-10.1); Carbon Dioxide 24.1 mMol/L (20.0-31.0); Chloride 104 mMol/L (98-107); Creatinine (Component) 1.4 mg/dL (0.6-1.3); Estimated Creatinine Clearance 54.2 mL/min (>60); Glucose 127 mg/dL (74-106); Osmolality,Calculated 277 (275-295); Phosphorous 2.0 mg/dL (2.4-5.1); Potassium 3.6 mMol/L (3.4-5.1); Sodium 139 mMol/L (136-145); eGFR 42 See Note
--- NOTE | 2025-05-05 11:03 | PC.SS ---
COLLEGE ARCHIVIST confirmed with [facility] that patient is not established with outpatient dialysis. COLLEGE ARCHIVIST updated ICU resident. ICU resident informed COLLEGE ARCHIVIST that patient will require outpatient dialysis. COLLEGE ARCHIVIST notified of need to order Hep panel and TB test. Consulting test data developer is Dr. Landry.
[2025-05-05] MEDS: fentaNYL CIT INJ 50 mCg/ML AMP 2ML 100 MCG IVP (14:43)
[2025-05-05] MEDS: LIDOCAINE INJ PF 1% 30 ML VIAL 6 ML INFL (14:44)
[2025-05-05] MEDS: HEPARIN SOD LOCK SYR 100 UNIT/ML 500 UNIT STFIELD (14:44)
[2025-05-05] MEDS: HEPARIN SOD INJ 1000 UNIT/ML VIAL 3300 UNIT INDWELLCAT (15:00)
--- NOTE | 2025-05-05 15:15 | PC.NURSE ---
1515 patient s/p perm cath insertion to right IJ, and removal of temporary dialysis catheter to left groin, dressing to right chest and left groin dry with no active bleeding or hematoma, patient transferred back to room 253, bedside report given to Michel
--- NOTE | 2025-05-05 16:41 | PC.LAC ---
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
[2025-05-05 17:27] LABS: Albumin, Serum 3.5 gm/dL (3.4-4.8); Anion Gap 13 (7-16); BUN/Creatinine Ratio 5 Ratio (12-20); Blood Urea Nitrogen 8 mg/dL (9-23); Calcium 8.7 mg/dL (8.3-10.6); Calcium (Corrected) 9.1 mg/dL (8.5-10.1); Carbon Dioxide 23.2 mMol/L (20.0-31.0); Chloride 104 mMol/L (98-107); Creatinine (Component) 1.7 mg/dL (0.6-1.3); Estimated Creatinine Clearance 44.6 mL/min (>60); Glucose 107 mg/dL (74-106); Osmolality,Calculated 277 (275-295); Phosphorous 2.3 mg/dL (2.4-5.1); Potassium 3.8 mMol/L (3.4-5.1); Sodium 140 mMol/L (136-145); eGFR 33 See Note
[2025-05-05] MEDS: ACETAMINOPHEN 325 MG TABLET 650 MG PO (20:59)
[2025-05-05] MEDS: HYDROcodone/APAP 5/325 TABLET 1 TAB PO (21:18)
[2025-05-05 21:24] LABS: Albumin, Serum 3.1 gm/dL (3.4-4.8); Anion Gap 14 (7-16); BUN/Creatinine Ratio 6 Ratio (12-20); Blood Urea Nitrogen 11 mg/dL (9-23); Calcium 8.0 mg/dL (8.3-10.6); Calcium (Corrected) 8.7 mg/dL (8.5-10.1); Carbon Dioxide 22.5 mMol/L (20.0-31.0); Chloride 104 mMol/L (98-107); Creatinine (Component) 2.0 mg/dL (0.6-1.3); Estimated Creatinine Clearance 38.6 mL/min (>60); Glucose 121 mg/dL (74-106); Osmolality,Calculated 279 (275-295); Phosphorous 2.4 mg/dL (2.4-5.1); Potassium 3.9 mMol/L (3.4-5.1); Sodium 140 mMol/L (136-145); eGFR 28 See Note
--- NOTE | 2025-05-05 21:47 | ESPR_ITS ---
Documentation for date of: 05/05/25 Subjective Subjective Interval history: Patient was admitted to ICU from ED on 04/30/25. She has history of CVA, atrial fibrillation, HFrEF, CKD, hypothyroidism. Initial chief complaints of abdominal pain, nausea and vomiting. Hemodialysis catheter was placed and patient was admitted into the ICU in view of kidney failure and hyperkalemia requiring HD. Blood cultures for GPC bacteremia. CT abdomen CT abdomen angiogram was done there were no evidence of ischemic bowel. There was chronic extensive left staghorn calculi. Patient requires Levophed low-dose to maintain a MAP greater than 65. Nephrology was consulted. She had PermCath placement for outpatient dialysis due to ATN from sepsis. [place] will be patient's last dose of Zosyn. She remains on heparin drip for atrial fibrillation. Unsafe to use other agents at this time due to nephrotoxicity profile. Patient now in stable condition and ready for downgrade. Exam Vital Signs Temp Pulse Resp BP Pulse Ox O2 Del Method O2 Flow Rate 97.5 F 127 H 27 H 98/83 100 Nasal Cannula 3 05/05/25 18:41 05/05/25 21:30 05/05/25 21:15 05/05/25 21:30 05/05/25 21:15 05/05/25 15:10 05/05/25 15:10 FiO2 96 05/01/25 14:45 Narrative Exam General: Alert and oriented x 3. Not in distress, following commands. HEENT: Atraumatic. PERRL. EOMI. Neck supple. CVS: S1-S2. Irregular rhythm. RESP: Decreased air entry bilaterally. No crackles heard. GI: Soft, obese nontender. Bowel sounds heard. No abdominal distention Skin: Warm, dry, intact. Sacral decubitus ulcer that is healing. Left posterior thigh excoriation, left heel eschar, left leg has more edema than right (left leg 3+ and right leg 2+), left distal leg and foot with slightly erythema) Neuro: CN II - XII grossly intact. Extremity motor and sensation grossly intact. Objective Labs 05/06/25 05:25 05/06/25 05:25 Labs: Laboratory Results - last 24 hr 05/02/25 05/04/25 05/05/25 17:21 22:24 03:04 WBC 10.0 RBC 2.60 L Hgb 8.3 L Hct 25.0 L MCV 96 MCH 31.9 MCHC 33.2 RDW Std Deviation 63.7 H Plt Count 106 L Neut % (Auto) 55 Lymph % (Auto) 31 [place] % (Auto) 9 Eos % (Auto) 4 Baso % (Auto) 1 Neut # (Auto) 5.5 Lymph # (Auto) 3.1 [place] # (Auto) 0.9 H Eos # (Auto) 0.4 Baso # (Auto) 0.1 Immature Gran # (Auto) 0.07 H Absolute Nucleated RBC 0.06 H Immature Gran % 1 H Nucleated RBC % 1 H PT INR APTT Sodium 139 140 Potassium 3.6 3.7 Chloride 105 105 Carbon Dioxide 25.0 24.7 Anion Gap 9 10 BUN 6 L 5 L Creatinine 1.1 1.2 Estim Creat Clear Calc 69.2 63.4 eGFR 56 L 51 L BUN/Creatinine Ratio 5 L 4 L Glucose 114 H 85 Calculated Osmolality 276 275 Calcium 7.9 L 8.2 L Corrected Calcium 8.9 9.1 Phosphorus 2.2 L 2.3 L Magnesium 1.9 Total Bilirubin 0.6 AST 40 H ALT 90 H Alkaline Phosphatase 61 Total Protein 4.9 L Albumin 2.7 L 2.9 L Globulin 2.0 L Albumin/Globulin Ratio 1.5 Blood Type B Positive Antibody Screen NEGATIVE Crossmatch See Detail Blood Bank Wristband ID Yes 05/05/25 05/05/25 05/05/25 09:47 16:20 20:30 WBC RBC Hgb Hct MCV MCH MCHC RDW Std Deviation Plt Count Neut % (Auto) Lymph % (Auto) [place] % (Auto) Eos % (Auto) Baso % (Auto) Neut # (Auto) Lymph # (Auto) [place] # (Auto) Eos # (Auto) Baso # (Auto) Immature Gran # (Auto) Absolute Nucleated RBC Immature Gran % Nucleated RBC % PT 12.7 H INR 1.2 APTT 32.7 D Sodium 139 140 140 Potassium 3.6 3.8 3.9 Chloride 104 104 104 Carbon Dioxide 24.1 23.2 22.5 Anion Gap 11 13 14 BUN 7 L 8 L 11 Creatinine 1.4 H 1.7 H 2.0 H Estim Creat Clear Calc 54.2 L 44.6 L 38.6 L eGFR 42 L 33 L 28 L BUN/Creatinine Ratio 5 L 5 L 6 L Glucose 127 H 107 H 121 H Calculated Osmolality 277 277 279 Calcium 8.1 L 8.7 8.0 L Corrected Calcium 9.0 9.1 8.7 Phosphorus 2.0 L 2.3 L 2.4 Magnesium Total Bilirubin AST ALT Alkaline Phosphatase Total Protein Albumin 2.9 L 3.5 D 3.1 L Globulin Albumin/Globulin Ratio Blood Type Antibody Screen Crossmatch Blood Bank Wristband ID ABG Interpretation ABG results: 04/30/25 04/30/25 05/01/25 16:32 22:23 07:41 ABG pH 7.50 H 7.51 H ABG pCO2 23 L 28 L ABG pO2 140 H 91 D ABG HCO3 18 L 22 ABG O2 Saturation 100 H 99 H ABG Base Excess -4 L -1 VBG pH 6.89 L VBG pCO2 25 L VBG pO2 56 VBG Base Excess -27 L 05/03/25 09:47 ABG pH ABG pCO2 ABG pO2 ABG HCO3 ABG O2 Saturation ABG Base Excess VBG pH 7.48 VBG pCO2 35 L D VBG pO2 32 D VBG Base Excess 2 Quality Measures Quality Measures none Assessment & Plan Assessment Current Active Medications: Generic Name Dose Route Start Last Admin Trade Name Freq PRN Reason Stop Dose Admin Acetaminophen 650 mg 04/30/25 16:49 05/05/25 20:59 Acetaminophen 325 Mg Tablet PO 05/30/25 16:48 650 mg Q4HR PRN Administration PAIN SCALE 1-3 (mild Dextrose 25 ml 04/30/25 16:58 Dextrose 50%-Water Inj 50 Ml Syringe IV 05/30/25 16:57 Q15MIN PRN BG 50-70 responsive npo pt Dextrose 50 ml 04/30/25 16:58 Dextrose 50%-Water Inj 50 Ml Syringe IV 05/30/25 16:57 Q15MIN PRN BG <50 OR BG <70 & pt unresponsive Glucagon 1 mg 04/30/25 16:58 Glucagon Inj 1 Mg Vial IM Q15MIN PRN BG <70, and no IV access Heparin Sodium (Porcine) 3,000 unit 04/30/25 22:13 05/04/25 23:21 Heparin Sod Inj 1000 Unit/Ml Vial 10 Ml INDWELLCAT 05/14/25 22:12 3,000 unit X1 PRN Administration DIALYSIS Albumin Human 25 gm in 100 mls @ 100 mls/hr 04/30/25 20:35 05/04/25 16:56 Albuminar-25 Ivpb IV 100 mls/hr PRN PRN Administration DIALYSIS Piperacillin Sod/Tazobactam 50 mls @ 100 mls/hr 05/01/25 18:00 05/05/25 18:16 Sod 2.25 gm/ Sodium Chloride IV 05/06/25 06:00 100 mls/hr Q6HR RIANNA Administration Norepinephrine/Dextrose 8 mg in 250 mls @ 8.831 mls/hr 05/02/25 16:03 05/04/25 12:56 Levophed In D5w 8mg/250ml IV 06/01/25 16:02 0 mcg/kg/min .Q24H PRN 0 mls/hr PER PROTOCOL Titration Protocol 0.05 MCG/KG/MIN Levothyroxine Sodium 50 mcg 05/02/25 06:00 05/05/25 05:34 Levothyroxine Sodium 25 Mcg Tablet PO 06/01/25 05:59 50 mcg ACBR RIANNA Administration Metoprolol Succinate 50 mg 05/01/25 09:00 05/02/25 08:05 Metoprolol Succinate Xl 25 Mg Tabcr PO 05/31/25 08:59 Not Given On Hold: 05/02/25 16:26 QDAY RIANNA Midodrine 10 mg 05/04/25 11:00 05/05/25 16:31 Midodrine 5 Mg Tablet PO 06/03/25 10:59 Not Given TID RIANNA Plan Patient was admitted to ICU from ED on 04/30/25 for staph bacteremia. She has history of CVA, atrial fibrillation, HFrEF, CKD, hypothyroidism. Initial chief complaints of abdominal pain, nausea and vomiting. Hemodialysis catheter was placed and patient was admitted into the ICU in view of kidney failure and hyperkalemia requiring HD. She got PermCath to continue outpatient HD. #Staph bacteremia Initially, patient's hypotension was attributed to septic shock. Further progressing to ATN finally requiring HD. Nephrology was consulted to stated to place permcath. -repeat blood cultures pending -last day of Zosyn tomorrow (05/06) #ATN #Staghorn calculi Initially pre renal progressing to intra renal in setting of sepsis. -PermCath for outpatient HD -Outpatient Follow up with Urology for Staghorn calculi #Afib with RVR Secondary to UTI Plan: -Continue heparin anticoagulation ?Keep potassium above 4 and magnesium above 2 at all times #Electrolyte abnormalities Repleted as needed. #HFrEF (EF 20-30%) 02/13/23 echocardiogram showed dilated cardiomyopathy with severe global hypokinesis and estimated LVEF 25-30%. -hold anti hypertensives at this time Health maintenance: Dispo: ICU downgrade FEN: regular DVT prophylaxis: Subcu heparin CODE STATUS: Full code The patient's management plan was discussed with my attending physician Dr. Quan. Alina Lees, PGY-2 Attending Provider Attestation/Addendum I have examined the patient, reviewed labs and imaging findings, discussed the case with the resident(s), and reviewed entered orders. I agree with the plan of care as outlined in this note. Dr. Kadeem MD
--- NOTE | 2025-05-05 23:21 | ESPR_ITS ---
RE: RUBÉN VIVAR : 1960 DATE OF SERVICE: 05/05/2025 HISTORY OF PRESENT ILLNESS: Briefly, she is a 62-year-old woman with history of CVA, atrial fibrillation, heart failure with reduced ejection fraction of 20% to 25% on the 2D echocardiogram done this weekend with severe global hypokinesis and dilated cardiomyopathy, hypothyroidism and resident of [facility], who presented to the emergency room on 04/30/2025 with abdominal pain for 2 days prior to admission. She was found with a potassium of 9.5 and a CO2 of less than 10 with a white count of 12,000. She was immediately transferred to ICU and was emergently dialyzed. The patient remains oliguric. Potassium level and lactic acid normalized with dialysis treatments. However, she was so volume overloaded that we have to use PRRT to remove more fluids off her. Initially, the patient was so hypotensive requiring Levophed. The patient improved with volume removal. This is day #3 of PRRT and somehow she is tolerating it well. Her swelling has gone down remarkably especially on her upper and lower extremities. Her blood pressures also improved without the use of Levophed. The patient also had a tunneled dialysis catheter placement this morning. PRRT was temporarily discontinued due to clotting earlier and to give time for tunneled dialysis catheter placement. CURRENT MEDICATIONS: 1. Acetaminophen. 2. Fentanyl. 3. Levothyroxine. 4. Magnesium. 5. Metoprolol. 6. Midodrine 10 mg p.o. t.i.d. 7. Zosyn 2.25 g IV q.6h PHYSICAL EXAMINATION: General: She is awake, alert, and oriented. Vital Signs: Blood pressure of 108/78, heart rate 118. HEENT: Anicteric sclerae, normocephalic. Neck: Supple. No JVD. Chest and Lungs: Did not examine. Extremities: 2+ Bilateral pitting edema in lower extremities. Upper extremities less edema. LABORATORY DATA: Hemoglobin 8.3, WBC 10,000, platelet count 106,000. Sodium 140, potassium 3.9, chloride 104, CO2 22.5, BUN 11, creatinine 2, glucose 121, corrected calcium 8.7. ASSESSMENT: 1. Oliguric acute kidney injury secondary to acute tubular necrosis following hemodynamic instability and hypotension resulting in hypoperfusion and acute tubular necrosis. 2. Hyperkalemia, now resolved. 3. Lactic acidosis, now resolved. 4. Staghorn calculi on the left kidney, not a candidate for any procedure. 5. Dilated cardiomyopathy with ejection fraction of 20% to 25% with severe global hypokinesis. 6. Volume overload secondary to cardiogenic shock/decompensated congestive heart failure. PLAN: We will continue PRRT for the next 12 hours with the goal of removing 1.2 L. The patient already has a tunneled dialysis catheter. The patient was referred to Dr. Lawton and she was deemed not a candidate for any surgical intervention for now. Once more stable tomorrow, then we can stop PRRT and switch her over to intermittent hemodialysis. DT: 21:44:46 TT: 22:58:00 Ref: [id number] - TID: [id number] MTDD
[2025-05-06] VITALS (134 sets, daily range): BP systolic 62–141; BP diastolic 42–122; PULSE 72–147; RESP 1–44; TEMP 36–36.6; O2SAT 88–100
[2025-05-06] MEDS: HYDROcodone/APAP 5/325 TABLET 1 TAB PO (03:11)
--- NOTE | 2025-05-06 03:58 | PC.NURSE ---
MD Landry called and notified of events, verified that 5 hours UF only, UF goal 800.
--- NOTE | 2025-05-06 05:00 | PC.NURSE ---
PT ON TABLO HD SINCE BEGINNING OF SHIFT (1844). TABLO STOPPED AT 0240 DUE TO APPARENT CLOTTING (TMP BASE LINE WAS -0, BY 0240 TMP WAS -22 EVEN AFTER 3 NS FLUSHES). RETURNED BLOOD BACK TO PT AND ATTEMPTED TO CHANGE THE CASSETTE AND FILTER, PER PROTOCOL BUT HAD MULTIPLE PROBLEMS INCLUDING A BROKEN NEW FILTER LEAKING DURING THE PRIMING OF THE TUBING. THEN THE TABLO FAILED (COULD NOT ENTER-IN AND CONTINUE SET-UP). CHANGE RN SPOKE WITH HD NURSE AND DR LYLE FOR INSTRUCTIONS. HD STARTED WITH DIFFERENT TABLO MACHINE AT 0445. PT WITH NO SIGNS OF DISTRESS.
[2025-05-06 06:13] LABS: Basophils # (Auto) 0.1 Thou/mm3 (0.0-0.2); Basophils % (Auto) 1 % (0-2.5); Eosinophils # (Auto) 0.3 Thou/mm3 (0.0-0.5); Eosinophils % (Auto) 3 % (0-10); Hematocrit 22.5 % (36.0-46.0); Immature Granulocytes Auto 0.08 Thou/mm3 (0.00-0.00); Lymphocytes # (Auto) 2.0 Thou/mm3 (1.0-4.8); Lymphocytes % (Auto) 23 % (10-50); Mean Corpuscular HGB Conc 32.9 g/dl (31.0-37.0); Mean Corpuscular Hemoglobin 31.9 pg (25.0-35.0); Mean Corpuscular Volume 97 fL (80-100); Monocytes # (Auto) 1.0 Thou/mm3 (0.0-0.8); Monocytes % (Auto) 11 % (0-12); Neutrophils # (Auto) 5.3 Thou/mm3 (1.8-7.7); Neutrophils % (Auto) 61 % (37-80); Nucleated Red Blood Cell # 0.04 Thou/mm3 (0.00-0.00); Nucleated Red Blood Cell % 1 /100 WBC (0); Platelet Count 95 Thou/mm3 (140-440); RDW Standard Deviation 61.5 fL (36.4-46.3); Red Blood Count 2.32 Miln/mm3 (4.00-5.20); White Blood Count 8.7 Thou/mm3 (3.6-11.0)
[2025-05-06 06:22] LABS: Hemoglobin 7.4 g/dL (12.0-16.0)
[2025-05-06] MEDS: LEVOTHYROXINE SODIUM 25 MCG TABLET 50 MCG PO (06:32)
[2025-05-06] MEDS: MIDODRINE 5 MG TABLET 10 MG PO ×3 (06:32→22:46)
[2025-05-06] MEDS: PIPERACILLIN/TAZO 2.25GM INJ 2.25 GM in SODIUM CHLORIDE 0.9% (Popper) 50 ML IV (06:33)
[2025-05-06 06:36] LABS: Alanine Aminotransferase 58 U/L (10-49); Albumin, Serum 2.6 gm/dL (3.4-4.8); Albumin/Globulin Ratio 1.3 (1.2-2.2); Alkaline Phosphatase 63 U/L (46-116); Anion Gap 11 (7-16); Aspartate Amino Transferase 18 U/L (0-34); BUN/Creatinine Ratio 6 Ratio (12-20); Bilirubin,Total 0.5 mg/dL (0.3-1.2); Blood Urea Nitrogen 12 mg/dL (9-23); Calcium 8.0 mg/dL (8.3-10.6); Calcium (Corrected) 9.1 mg/dL (8.5-10.1); Carbon Dioxide 23.7 mMol/L (20.0-31.0); Chloride 106 mMol/L (98-107); Creatinine (Component) 2.1 mg/dL (0.6-1.3); Estimated Creatinine Clearance 36.1 mL/min (>60); Globulin 2.0 gm/dL (2.3-3.5); Glucose 86 mg/dL (74-106); Magnesium 2.1 mg/dL (1.6-2.6); Osmolality,Calculated 279 (275-295); Phosphorous 2.8 mg/dL (2.4-5.1); Potassium 3.4 mMol/L (3.4-5.1); Sodium 141 mMol/L (136-145); Total Protein 4.6 gm/dL (5.7-8.2); eGFR 26 See Note
--- NOTE | 2025-05-06 10:00 | ESPR_ITS ---
<Statement entered by Jonatan Kimble MD - 05/06/25 14:36> I personally supervised the PGY-1 resident, Dr. Beasley, examined the patient. I agree with the documentation and plan with the exceptions listed below. Patient is a 64-year-old female with past medical history significant of CVA, atrial fibrillation on Xarelto, HFrEF [25 to 30%], CKD and hypothyroidism admitted to the ICU for symptomatic hyperkalemia of 9.5 with EKG changes requiring emergent hemodialysis. Patient was diagnosed initially with septic shock secondary to UTI which led to ATN resulting in hyperkalemia. Problem list: ARIANA on CKD secondary to ATN requiring hemodialysis Persistent atrial fibrillation History of CVA Dilated cardiomyopathy [estimated EF 15-20%] Hypothyroidism Macrocytic anemia This morning patient says she feels well and again denies any symptoms including chest pain/pressure, palpitations, dizziness or shortness of breath. Hb down trended to 7.4 from 8.3 , potassium 3.4, Mg 2.1, Phos 2.8, BUN 12, CR 2.1. Pending recommendations from nephrology regarding hemodialysis challenge prior to discharge so far she has been on CRRT due to concerns for hypotension. Hepatitis panel was negative and PPD pending to be read today. 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 For patient's atrial fibrillation she was transition from heparin infusion to apixaban today for anticoagulation. Due to concerns for hypotension as patient initially presented with shock and was on vasopressors, GDMT was put on hold for now. Most of the time her rate is controlled, however she has runs of A-fib with RVR in the 120s?140s. As patient's blood pressure is now stable off of vasopressors, cardiology Dr. Barcenas was consulted regarding recommendations for rate control. Plan of care discussed with Attending Dr. Jesenia Kimble MD PGY 2 Disclaimer: This note was dictated by speech recognition. Minor errors in correction officer city or county jail may be present due to voice recognition software. Documentation for date of: 05/06/25 Subjective Subjective Interval history: 64-year-old female with a past medical history significant for a cerebrovascular accident, atrial fibrillation, heart failure with reduced ejection fraction (25-30% in January 2023), chronic kidney disease, and hypothyroidism presents from a [facility] facility for evaluation of abdominal pain. The pain started two days ago and has been constant since. It is a dull, aching pain located primarily in the [id number] abdomen, and the patient rates its severity as moderate. The pain is accompanied by nausea and multiple episodes of non-bloody, non-bilious vomiting. She also reports feeling anxious and has verbalized a fear of . She denies any recent illness, fevers, chills, chest pain, shortness of breath, dysuria, diarrhea, or changes in bowel habits. ED course: Initial vitals include temperature 100.4, respiratory rate 19, pulse 74, blood pressure 157/117, O2 saturations 99% on 4 L of nasal cannula. EKG showed atrial fibrillation with RVR and wide-complex tachycardia. Notable labs include potassium 9.5, bicarb less than 10, anion gap 18, creatinine 6.2, lactic acid 11.6, corrected calcium 10.2, BNP 2426, Pro-Matias 0.19. VBG pH 6.89. Coagulation studies showed PT 14.6, INR 1.4. CBC showed WBC 12.1, hemoglobin 11, MCV 100.6. Patient was given 1 L of normal saline. Patient received calcium chloride 10% x 1, D50 push x 2, bicarb 50 mEq x 1, sodium bicarb drip started albuterol 5 mg inhaler x 2, IV insulin 5 units x 1, 10 units x 1. In ED urgent hemodialysis catheter was placed through the left femoral vein. Dr Landry has been contacted regarding starting hemodialysis urgently. Past medical history: As stated above. Past surgical history: Unobtainable. Social history: Unobtainable. Patient admitted to ICU following wide-complex tachycardia in the setting of severe hyperkalemia. Admitted for close monitoring. Interval History 05/01/25: Patient's mentation improved since yesterday after hemodialysis session. Bedside ultrasound was done, it was found that the patient is intravascularly depleted. Total of 750 mL of LR was given. Bicarb level improved today to 27. Bicarb drip was stopped. Blood culture from yesterday was positive for GPC. Patient produced about 100ml of urine today and it was suspicious for infection. Sent for urinalysis and urine culture. UA showed UTI. Patient continues to be on Zosyn renally dosed. Doxycline added since 09/02 blood culture from yesterday was positive GPC. Sample may be a contaminant so repeated blood culture today. CT abdomen angiogram was done there were no evidence of ischemic bowel. There is chronic extensive left staghorn calculi. Patient requires Levophed low-dose to maintain a MAP greater than 65. 05/02/25: Patient was given 500 cc's of fluid, had their electrolytes repleted, and started on IV doxycycline 100 mg BID overnight. Patient seen and examined at bedside; they report feeling generally well today with no new complaints or concerns. Patient is currently receiving renally dosed Zosyn and doxycycline for her UTI. Initially, patient's shock was attributed to sepsis; however, at this time, hypovolemia and possible cardiogenic etiology (CHF w/ EF of 20-25%) seem more likely. Today, Levophed was weaned off and patient's MAP maintained in the 70s throughout the day, until 2 PM when it dropped to the 50s. Bedside ultrasound was done and IVC demonstrated >50% collapsibility; a 1 L Ringer's lactate IVF bolus was given. Patient's MAP still did not improve and Levophed had to be resumed. Nephrology, Dr Landry, recommended AM cortisol and possibly starting IV steroids tomorrow as adrenal insufficiency may be a possible cause of the hypotension. She also recommended a Urology consultation for possible lithotripsy for left staghorn calculi. 05/03/25: No overnight events. Patient seen and examined at bedside; they report feeling generally well today with no new complaints or concerns. Pertinent labs today include: Hemoglobin dropped to 6.8 from 7.7, platelet count dropped to 114 from 127, APTT drop from 130.9-37.3, potassium dropped to 3.0 from 4.0, chloride bump to 108 from 102, creatinine bump to 2.5 from 2.1, lactic acid drop to 1.9 from 4.9, corrected calcium dropped from 9.0-8.3, magnesium dropped to 2.1 from 3.2, AST drop to 102 from 205, ALT dropped to 133 from 174, LDH 287, and albumin dropped to 2.5 from 3.2. A.m. cortisol is pending. Patient continues to be hypotensive despite being on pressors and being given fluid boluses. It is currently suspected that patient's low blood pressure is due to the temporarily impaired function of the kidneys secondary to hypoperfusion from septic shock and that continued circulatory support via fluids and pressors with antibiotic treatment of her UTI will eventually lead to normotensive status. Patient will also be receiving HD today for her oliguria 2/2 ARIANA on CKD 2/2 ATN 2/2 hypoperfusion. 05/04/2025: No overnight events reported, patient. This morning patient seen and examined at bed, she says she feels well. Denies any chest pain, shortness of breath hemoglobin remained stable at 8.5, BUN 5, CR 0.9, phosphorus 1.1, magnesium 1.6. Today patient scheduled for CRRT 24 hours as per nephrology. Levophed will also be weaned and patient started on midodrine p.o. 3 times daily with albumin as needed for hypotension during CRRT. Urology assessed the patient no emergent need for intervention at this time for staghorn calculi as it is not obstructing and patient is a poor surgical candidate, will schedule for outpatient follow- up. Patient will need PermCath placement for outpatient dialysis, this will be done tomorrow as patient needs to be off of heparin infusion for 24 hours as per IR. PPD was also placed today in preparation for outpatient dialysis. NaPhos 30mmol, 1 packet neutaphos and Magnesium sulphate 4g IV given 05/05/2025: No overnight events. Patient seen and examined at bedside; they report feeling generally well today with no new complaints or concerns. Over past 24 hours patient was on CRRT, BUN and CR 5 and 1.2 respectively. Phosphorus 2.3 and Mg 1.9. Patient was repleted with 1 packet Neutra-Phos and magnesium sulfate 2 g IV x 1. Hepatitis panel was negative and PPD pending read at 11 AM 05/06/2025. Currently outpatient chair time still needs to be arranged, social workers were notified. Levophed was discontinued since yesterday. 05/06/2025: No overnight events. Patient seen and examined at bedside; they report feeling generally well today with no new complaints or concerns. Patient had a right IJ permanent tunneled dialysis catheter placed successfully yesterday (for outpatient hemodialysis use due to continued impairment in kidney function) along with removal of the previously placed temporary dialysis catheter. Patient's BP has been hemodynamically stable while on as needed midodrine and does not need CRRT any longer. She has also been switched from subQ heparin to PO Apixaban 5 mg BID for Afib anticoagulation. Will downgrade to floors where patient's ability to tolerate conventional hemodialysis can be tested and her hemodialysis schedule can be set up before being discharged. Exam Vital Signs Temp Pulse Resp BP Pulse Ox O2 Del Method O2 Flow Rate 97.8 F 128 H 21 H 100/77 100 Room Air 3 05/06/25 08:00 05/06/25 09:45 05/06/25 09:01 05/06/25 09:45 05/06/25 09:01 05/06/25 08:00 05/05/25 15:10 FiO2 96 05/01/25 14:45 Narrative Exam General: Alert and oriented x 3. Not in distress, following commands. HEENT: Atraumatic. PERRL. EOMI. Neck supple. CVS: S1-S2. Irregular rhythm. RESP: Decreased air entry bilaterally. No crackles heard. GI: Soft, nontender. Bowel sounds heard. No abdominal distention Skin: Newly placed right IJ permanent tunneled dialysis catheter noted. Warm, dry, intact. Sacral decubitus ulcer that is healing. Left posterior thigh excoriation, left heel eschar, left leg has more edema than right (left leg 3+ and right leg 2+), left distal leg and foot with slightly erythema) Neuro: CN II - XII grossly intact. Extremity motor and sensation grossly intact. Objective Labs 05/08/25 05:37 05/08/25 05:37 Labs: Laboratory Results - last 24 hr 05/02/25 05/05/25 05/05/25 17:21 09:47 16:20 WBC RBC Hgb Hct MCV MCH MCHC RDW Std Deviation Plt Count Neut % (Auto) Lymph % (Auto) [place] % (Auto) Eos % (Auto) Baso % (Auto) Neut # (Auto) Lymph # (Auto) [place] # (Auto) Eos # (Auto) Baso # (Auto) Immature Gran # (Auto) Absolute Nucleated RBC Immature Gran % Nucleated RBC % PT 12.7 H INR 1.2 APTT 32.7 D Sodium 139 140 Potassium 3.6 3.8 Chloride 104 104 Carbon Dioxide 24.1 23.2 Anion Gap 11 13 BUN 7 L 8 L Creatinine 1.4 H 1.7 H Estim Creat Clear Calc 54.2 L 44.6 L eGFR 42 L 33 L BUN/Creatinine Ratio 5 L 5 L Glucose 127 H 107 H Calculated Osmolality 277 277 Calcium 8.1 L 8.7 Corrected Calcium 9.0 9.1 Phosphorus 2.0 L 2.3 L Magnesium Total Bilirubin AST ALT Alkaline Phosphatase Total Protein Albumin 2.9 L 3.5 D Globulin Albumin/Globulin Ratio Blood Type B Positive Antibody Screen NEGATIVE Crossmatch See Detail Blood Bank Wristband ID Yes 05/05/25 05/06/25 05/06/25 20:30 05:25 08:00 WBC 8.7 RBC 2.32 L Hgb 7.4 L Hct 22.5 L MCV 97 MCH 31.9 MCHC 32.9 RDW Std Deviation 61.5 H Plt Count 95 L Neut % (Auto) 61 Lymph % (Auto) 23 [place] % (Auto) 11 Eos % (Auto) 3 Baso % (Auto) 1 Neut # (Auto) 5.3 Lymph # (Auto) 2.0 [place] # (Auto) 1.0 H Eos # (Auto) 0.3 Baso # (Auto) 0.1 Immature Gran # (Auto) 0.08 H Absolute Nucleated RBC 0.04 H Immature Gran % 1 H Nucleated RBC % 1 H PT INR APTT Sodium 140 141 Potassium 3.9 3.4 D Chloride 104 106 Carbon Dioxide 22.5 23.7 Anion Gap 14 11 BUN 11 12 Creatinine 2.0 H 2.1 H Estim Creat Clear Calc 38.6 L 36.1 L eGFR 28 L 26 L BUN/Creatinine Ratio 6 L 6 L Glucose 121 H 86 Calculated Osmolality 279 279 Calcium 8.0 L 8.0 L Corrected Calcium 8.7 9.1 Phosphorus 2.4 2.8 Magnesium 2.1 Total Bilirubin 0.5 AST 18 ALT 58 H Alkaline Phosphatase 63 Total Protein 4.6 L Albumin 3.1 L 2.6 L D Globulin 2.0 L Albumin/Globulin Ratio 1.3 Blood Type B Positive Antibody Screen NEGATIVE Crossmatch See Detail Blood Bank Wristband ID Yes ABG Interpretation ABG results: 04/30/25 04/30/25 05/01/25 16:32 22:23 07:41 ABG pH 7.50 H 7.51 H ABG pCO2 23 L 28 L ABG pO2 140 H 91 D ABG HCO3 18 L 22 ABG O2 Saturation 100 H 99 H ABG Base Excess -4 L -1 VBG pH 6.89 L VBG pCO2 25 L VBG pO2 56 VBG Base Excess -27 L 05/03/25 09:47 ABG pH ABG pCO2 ABG pO2 ABG HCO3 ABG O2 Saturation ABG Base Excess VBG pH 7.48 VBG pCO2 35 L D VBG pO2 32 D VBG Base Excess 2 Quality Measures Quality Measures none Assessment & Plan Assessment Current Active Medications: Generic Name Dose Route Start Last Admin Trade Name Freq PRN Reason Stop Dose Admin Acetaminophen 650 mg 04/30/25 16:49 05/05/25 20:59 Acetaminophen 325 Mg Tablet PO 05/30/25 16:48 650 mg Q4HR PRN Administration PAIN SCALE 1-3 (mild Dextrose 25 ml 04/30/25 16:58 Dextrose 50%-Water Inj 50 Ml Syringe IV 05/30/25 16:57 Q15MIN PRN BG 50-70 responsive npo pt Dextrose 50 ml 04/30/25 16:58 Dextrose 50%-Water Inj 50 Ml Syringe IV 05/30/25 16:57 Q15MIN PRN BG <50 OR BG <70 & pt unresponsive Glucagon 1 mg 04/30/25 16:58 Glucagon Inj 1 Mg Vial IM Q15MIN PRN BG <70, and no IV access Heparin Sodium (Porcine) 3,000 unit 04/30/25 22:13 05/04/25 23:21 Heparin Sod Inj 1000 Unit/Ml Vial 10 Ml INDWELLCAT 05/14/25 22:12 3,000 unit X1 PRN Administration DIALYSIS Albumin Human 25 gm in 100 mls @ 100 mls/hr 04/30/25 20:35 05/04/25 16:56 Albuminar-25 Ivpb IV 100 mls/hr PRN PRN Administration DIALYSIS Norepinephrine/Dextrose 8 mg in 250 mls @ 8.831 mls/hr 05/02/25 16:03 05/04/25 12:56 Levophed In D5w 8mg/250ml IV 06/01/25 16:02 0 mcg/kg/min .Q24H PRN 0 mls/hr PER PROTOCOL Titration Protocol 0.05 MCG/KG/MIN Levothyroxine Sodium 50 mcg 05/02/25 06:00 05/06/25 06:32 Levothyroxine Sodium 25 Mcg Tablet PO 06/01/25 05:59 50 mcg ACBR RIANNA Administration Metoprolol Succinate 50 mg 05/01/25 09:00 05/02/25 08:05 Metoprolol Succinate Xl 25 Mg Tabcr PO 05/31/25 08:59 Not Given On Hold: 05/02/25 16:26 QDAY RIANNA Midodrine 10 mg 05/04/25 11:00 05/06/25 06:32 Midodrine 5 Mg Tablet PO 06/03/25 10:59 10 mg TID RIANNA Administration Plan 64-year-old female with a past medical history significant for a cerebrovascular accident, atrial fibrillation, heart failure with reduced ejection fraction(25-30% in January 2023), chronic kidney disease, and hypothyroidism presents from a [facility] facility for evaluation of abdominal pain. Patient admitted to ICU following wide-complex tachycardia in the setting of severe hyperkalemia. Patient had a right IJ permanent tunneled dialysis catheter placed successfully yesterday (for outpatient hemodialysis use due to continued impairment in kidney function) along with removal of the previously placed temporary dialysis catheter. Patient's BP has been hemodynamically stable while on as needed midodrine and does not need CRRT any longer. She has also been switched from subQ heparin to PO Apixaban 5 mg BID for Afib anticoagulation. Will downgrade to floors where patient's ability to tolerate conventional hemodialysis can be tested and her hemodialysis schedule can be set up before being discharged. 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 However, patient's MAP still did not improve and Levophed had to be resumed It is currently suspected that patient's low blood pressure is due to the temporarily impaired function of the kidneys secondary to hypoperfusion and that continued circulatory support via fluids and pressors with antibiotic treatment of her UTI will eventually lead to normotensive status Adrenal insufficiency is an alternative differential to explain the persistent hypotension but is less likely due to patient's hypokalemia (however, have ordered AM cortisol and will consider IV steroids just in case) DDx: hypovolemic shock, cardiogenic shock, adrenal insufficiency Dx: -Bedside ultrasound showed >50% IVC collapsibility -02/13/23 echocardiogram showed dilated cardiomyopathy with severe global hypokinesis and estimated LVEF 25-30% -AM cortisol has been ordered, pending Rx: -Successfully placed permanent dialysis catheter and removed the temporary one -No more CRRT necessary due to hemodynamic stability -Per Nephrology recommendations, follow up on AM cortisol -Dispatcher Clerk has been consulted for setting up outpatient hemodialysis schedule -Outpatient Follow up with Urology for Staghorn calculi RRx: -Monitor blood pressure #Atrial fibrillation with RVR Originally present likely secondary to UTI, currently not present Plan: -Switched to PO Eliquis 5 mg BID for anticoagulation ?Keep potassium above 4 and magnesium above 2 at all times #History of reduced ejection fraction Last echo in January 2023 showed ejection fraction 25 to 30% BNP on admission 2426 New 04/30/25 echocardiogram reveals worsened ejection fraction 15-20% PULM: No active issue GI: #Transaminitis (resolved) Likely secondary to hypoperfusion AST and ALT elevation, ALP normal, Bilirubin normal Now resolved s/p management of patient's hypotension, supporting the working diagnosis/etiology above RENAL: #ARIANA on chronic CKD Currently believed to have been 2/2 renal hypoperfusion 2/2 vs. hypovolemic shock Postrenal obstructive etiology 2/2 staghorn calculi could also be a contributing factor Plan: -Successfully placed permanent dialysis catheter and removed the temporary one -No more CRRT necessary due to hemodynamic stability -Renally dose medications -Avoid nephrotoxic medication -Dispatcher Clerk has been consulted for setting up outpatient hemodialysis schedule ENDO #History of hypothyroidism TSH within normal limits Plan ? Continue levothyroxine HEME #Macrocytic anemia Upon admission, hemoglobin 8, MCV 102. Vitamin B12, folate level normal. Today, Hgb dropped from 8.3 to 7.4 Plan: ?Transfuse pRBC if hemoglobin less than 7 #Thrombocytopenia Admission platelet count 228, has steadily downtrended to 95 today During current hospital stay, patient has received subQ heparin for anticoagulation for her Afib Plan -Continue to monitor ID #Septic Shock 2/2 to #Urinary tract infection - resolved UA: leuk positive, nitrite positive, WBC 611 Procal 0.19 LA 9.3 -> 3.8 -> 2.2 Has been weaned off of Levophed Health Maintenance: Diet: Cardiac, Renal GI prophylaxis: None DVT prophylaxis: Heparin 5000 units every 8 hours CODE STATUS: Full Disposition: Clinically stable for downgrade to the floor Plan of care discussed with Attending Dr. Jesenia Beasley DO Internal Medicine, PGY-1 Attending Provider Attestation/Addendum Patient seen and examined with above resident, Jung Beasley DO. I agree with the findings, assessment, and plan of care as document except for any differences below. Patient continues to do well with excellent appetite and ongoing recovery overall. Patient has been hemodynamic stable off of vasopressor support for previous 24 hours with initiation of midodrine. Dosing may intermittently require holding or adjustment to lower dose. Patient will be transition to traditional hemodialysis after completion of [place] this morning. Patient will need to be challenged with hemodialysis while on the floor prior to discharge to her facility to ensure that this can be done as an outpatient safely. Patient is hopeful that she can return to her prior [facility] facility where her is in rehab and coordinate this with care management. Patient without likely infection has been adequately treated with antibiotics nonetheless for possible urinary source. Patient remained stable on room air. Patient is an close I will continue to be pending and should be followed up for final decision on steroid dosing. Ongoing fluid removal as per nephrology's input. A component of her edema is likely related to severe protein calorie malnutrition which will improve with her p.o. intake. Electrolyte replacement ongoing to avoid any refeeding syndrome. Lastly, patient remains off of any GDMT for her heart failure. This should be gradually reintroduced in the coming days based on blood pressure tolerance. At this point patient can be transferred to medicine ruggiero for ongoing management as detailed above. Total critical care time: I personally spent 35 minutes for review of physiologic parameters, directing plan of care throughout the day, coordination of care with other subspecialties and counseling patient at bedside. This is exclusive of time spent teaching of staff and performing separate billable procedures. Patient remains at significant risk for further morbidity and mortality warranting close monitoring care only available in the ICU. Critical care services required for hypovolemic/septic shock/intradialytic hypotension, acute renal failure on chronic kidney disease, atrial fibrillation with RVR, heart failure with reduced ejection fraction, severe protein calorie malnutrition, acute metabolic encephalopathy.
[2025-05-06] MEDS: APIXABAN 2.5 MG TABLET 5 MG PO (11:12)
--- NOTE | 2025-05-06 13:23 | PD.RESPRO ---
Documentation for date of: 05/06/25 Subjective Subjective Interval history: Patient was admitted to ICU from ED on 04/30/25. She has history of CVA, atrial fibrillation, HFrEF, CKD, hypothyroidism. Initial chief complaints of abdominal pain, nausea and vomiting. Patient was septic in setting of UTI. In ED, patient was found to have hyperkalemia potassium 9.5, anion gap metabolic acidosis with bicarb of 10, ARIANA with Cr 6.2(baseline Cr around 1.0). She required urgent hemodialysis due to hyperkalemia and acidosis. Nephrology, Dr Landry was consulted for further management and patient was admitted to ICU for closer monitoring. Patient was on Xarelto for Afib. This was held due to worsening kidney function and she was continued with subQ heparin for anticoagulant. Urine culture was positive for E coli UTI. Blood pressures remained unstable with a low MAP requiring to start Levophed. Attempts made to wean Levophed however BP remained soft. Additional workup for persistent hypotension including a.m. cortisol results are pending. While in ICU, patient's ARIANA worsened with progression to ATN. She was having minimal urine output. Likely that the persistent hypotension with combination of sepsis caused hypoperfusion to kidneys. She was treated with IV Zosyn and has now completed full treatment course. Patient received PermCath placement yesterday by IR for continuation of hemodialysis outpatient. Plan to continue anticoagulation with apixaban 5 mg twice daily in setting of atrial fibrillation. Patient now in stable condition and ready for downgrade. Exam Vital Signs Temp Pulse Resp BP Pulse Ox O2 Del Method O2 Flow Rate 97.9 F 117 H 16 124/55 L 100 Room Air 3 05/06/25 12:01 05/06/25 13:01 05/06/25 13:01 05/06/25 13:01 05/06/25 13:01 05/06/25 08:00 05/05/25 15:10 FiO2 96 05/01/25 14:45 Narrative Exam General: Alert and oriented x 3. Not in distress, following commands. HEENT: Atraumatic. PERRL. EOMI. Neck supple. CVS: S1-S2. Irregular rhythm. RESP: Decreased air entry bilaterally. No crackles heard. GI: Soft, obese nontender. Bowel sounds heard. No abdominal distention Skin: Warm, dry, intact. Sacral decubitus ulcer that is healing. Left posterior thigh excoriation, left heel eschar, perm cath in place, no bleeding Neuro: CN II - XII grossly intact. Extremity motor and sensation grossly intact. Objective Labs 05/07/25 04:50 05/07/25 04:50 Labs: Laboratory Results - last 24 hr 05/02/25 05/05/25 05/05/25 17:21 16:20 20:30 WBC RBC Hgb Hct MCV MCH MCHC RDW Std Deviation Plt Count Neut % (Auto) Lymph % (Auto) [place] % (Auto) Eos % (Auto) Baso % (Auto) Neut # (Auto) Lymph # (Auto) [place] # (Auto) Eos # (Auto) Baso # (Auto) Immature Gran # (Auto) Absolute Nucleated RBC Immature Gran % Nucleated RBC % Sodium 140 140 Potassium 3.8 3.9 Chloride 104 104 Carbon Dioxide 23.2 22.5 Anion Gap 13 14 BUN 8 L 11 Creatinine 1.7 H 2.0 H Estim Creat Clear Calc 44.6 L 38.6 L eGFR 33 L 28 L BUN/Creatinine Ratio 5 L 6 L Glucose 107 H 121 H Calculated Osmolality 277 279 Calcium 8.7 8.0 L Corrected Calcium 9.1 8.7 Phosphorus 2.3 L 2.4 Magnesium Total Bilirubin AST ALT Alkaline Phosphatase Total Protein Albumin 3.5 D 3.1 L Globulin Albumin/Globulin Ratio Blood Type B Positive Antibody Screen NEGATIVE Crossmatch See Detail Blood Bank Wristband ID Yes 05/06/25 05/06/25 05:25 08:00 WBC 8.7 RBC 2.32 L Hgb 7.4 L Hct 22.5 L MCV 97 MCH 31.9 MCHC 32.9 RDW Std Deviation 61.5 H Plt Count 95 L Neut % (Auto) 61 Lymph % (Auto) 23 [place] % (Auto) 11 Eos % (Auto) 3 Baso % (Auto) 1 Neut # (Auto) 5.3 Lymph # (Auto) 2.0 [place] # (Auto) 1.0 H Eos # (Auto) 0.3 Baso # (Auto) 0.1 Immature Gran # (Auto) 0.08 H Absolute Nucleated RBC 0.04 H Immature Gran % 1 H Nucleated RBC % 1 H Sodium 141 Potassium 3.4 D Chloride 106 Carbon Dioxide 23.7 Anion Gap 11 BUN 12 Creatinine 2.1 H Estim Creat Clear Calc 36.1 L eGFR 26 L BUN/Creatinine Ratio 6 L Glucose 86 Calculated Osmolality 279 Calcium 8.0 L Corrected Calcium 9.1 Phosphorus 2.8 Magnesium 2.1 Total Bilirubin 0.5 AST 18 ALT 58 H Alkaline Phosphatase 63 Total Protein 4.6 L Albumin 2.6 L D Globulin 2.0 L Albumin/Globulin Ratio 1.3 Blood Type B Positive Antibody Screen NEGATIVE Crossmatch See Detail Blood Bank Wristband ID Yes ABG Interpretation ABG results: 04/30/25 04/30/25 05/01/25 16:32 22:23 07:41 ABG pH 7.50 H 7.51 H ABG pCO2 23 L 28 L ABG pO2 140 H 91 D ABG HCO3 18 L 22 ABG O2 Saturation 100 H 99 H ABG Base Excess -4 L -1 VBG pH 6.89 L VBG pCO2 25 L VBG pO2 56 VBG Base Excess -27 L 05/03/25 09:47 ABG pH ABG pCO2 ABG pO2 ABG HCO3 ABG O2 Saturation ABG Base Excess VBG pH 7.48 VBG pCO2 35 L D VBG pO2 32 D VBG Base Excess 2 Quality Measures Quality Measures none Assessment & Plan Assessment Current Active Medications: Generic Name Dose Route Start Last Admin Trade Name Freq PRN Reason Stop Dose Admin Acetaminophen 650 mg 04/30/25 16:49 05/05/25 20:59 Acetaminophen 325 Mg Tablet PO 05/30/25 16:48 650 mg Q4HR PRN Administration PAIN SCALE 1-3 (mild Apixaban 5 mg 05/06/25 11:00 05/06/25 11:12 Apixaban 2.5 Mg Tablet PO 06/05/25 10:59 5 mg BID RIANNA Administration Dextrose 25 ml 04/30/25 16:58 Dextrose 50%-Water Inj 50 Ml Syringe IV 05/30/25 16:57 Q15MIN PRN BG 50-70 responsive npo pt Dextrose 50 ml 04/30/25 16:58 Dextrose 50%-Water Inj 50 Ml Syringe IV 05/30/25 16:57 Q15MIN PRN BG <50 OR BG <70 & pt unresponsive Glucagon 1 mg 04/30/25 16:58 Glucagon Inj 1 Mg Vial IM Q15MIN PRN BG <70, and no IV access Heparin Sodium (Porcine) 3,000 unit 04/30/25 22:13 05/04/25 23:21 Heparin Sod Inj 1000 Unit/Ml Vial 10 Ml INDWELLCAT 05/14/25 22:12 3,000 unit X1 PRN Administration DIALYSIS Albumin Human 25 gm in 100 mls @ 100 mls/hr 04/30/25 20:35 05/04/25 16:56 Albuminar-25 Ivpb IV 100 mls/hr PRN PRN Administration DIALYSIS Levothyroxine Sodium 50 mcg 05/02/25 06:00 05/06/25 06:32 Levothyroxine Sodium 25 Mcg Tablet PO 06/01/25 05:59 50 mcg ACBR RIANNA Administration Metoprolol Succinate 50 mg 05/01/25 09:00 05/02/25 08:05 Metoprolol Succinate Xl 25 Mg Tabcr PO 05/31/25 08:59 Not Given On Hold: 05/02/25 16:26 QDAY RIANNA Midodrine 10 mg 05/06/25 11:00 05/06/25 11:12 Midodrine 5 Mg Tablet PO 06/03/25 10:59 10 mg TID RIANNA Administration Plan Patient was admitted to ICU from ED on 04/30/25. She has history of CVA, atrial fibrillation, HFrEF, CKD, hypothyroidism. Initial chief complaints of abdominal pain, nausea and vomiting. Patient was septic in setting of UTI. She required urgent hemodialysis due to hyperkalemia and acidosis. Nephrology, Dr Landry was consulted for further management and patient was admitted to ICU for closer monitoring. #ARIANA Now most likely intra renal (ATN) after progressing from prerenal in the setting of her sepsis/hypoperfusion. While in the ICU she required hemodialysis as patient was oliguric. Initial creatinine on admission was 6.2 (baseline Cr around 1.0). -Nephrology Dr Landry was consulted who recommended perm cath for outpatient HD. -maintenance fluids -avoid nephrotoxic agents -daily CMP #Sepsis 2/2 E coli UTI (resolved) Patient has completed full course of antibiotics for treatment of UTI with Zosyn. No longer experiencing any urinary symptoms. -AM cortisol levels pending -midodrine 10mg TID #Nephrolithiasis Found to have left sided staghorn calculi measuring ~19mm. Nonobstructive. Urology Dr. Lawton was consulted who stated that she is not a surgical candidate for any intervention. At a future time may consider laser stone fragmentation or lithotripsy. -Continue conservative management -follow up outpatient #Atrial fibrillation with RVR #HFrEF (15-20%) Patient has a history of atrial fibrillation on Xarelto. She is rate controlled with metoprolol succinate 50mg daily. Du to worsening kidney function and she was continued with subQ heparin for anticoagulant. Echo from 04/30--Dilated cardiomyopathy, severe global hypokinesis, severe systolic dysfunction. EF 15-20%. Severely dilated left atrium. CHADsVASc score 4 points -stop subQ heparin -continue Apixiban 5 mg BID for anticoagulation -continue to hold rate controlling agents in setting of hypotension (holding metoprolol succinate 50mg daily) -consult Cardiology, appreciate recs -continue to monitor electolytes keeping potassium >4.0 and Mg >2.0 #Normocytic anemia Hb on admission was 11.0. It was been slowly downtrending to lowest 6.8. She was given prbc with improvement seen. Total of 2 units have been transfused since admission. (Fe 36) Possible causes include CKD or chronic infection vs iron def anemia. -FOBT pending -daily CBC -transfuse rbc unit if Hb <7 #Hypothyroidism TSH 2.39, free T4 1.6 -continue levothyroxine 50mcg #CVA No new findings of stroke on head imaging. Patient takes atorvastatin 20 mg daily outpatient and was on Xarelto. -hold atrovastatin until further improvement in LFTS -resume Apixaban 5mg BID vs Xarelto due to nephrotoxicity. #Seizure disorder -continue divalproex 250mg BID Health maintenance: Dispo: downgrade from ICU FEN: cardiac diet DVT prophylaxis: apixaban 5 BID CODE STATUS: Full code The patient's management plan was discussed with my attending physician Dr. Quan. Alina Lees, PGY-2 Attending Provider Attestation/Addendum I have examined the patient, reviewed labs and imaging findings, discussed the case with the resident(s), and reviewed entered orders. I agree with the plan of care as outlined in this note, with these additional summaries/recommendations: Patient seen at bedside. No acute overnight events. She currently has no acute complaints although she is excited to see her when medically cleared for discharge. Patient received right IJ permanent tunneled dialysis catheter yesterday without complications and received CRRT. In house nephrology following for acute renal failure which is possibly multifactorial secondary to staghorn calculi versus ATN versus both. Per patient's nurse she has made little to no urine today. Patient was seen by urology for bilateral staghorn calculi and not a surgical candidate at this time and will need to follow-up at a later date. Patient to receive last dose of Zosyn today for urinary tract infection. Patient was found to have symptomatic anemia on admission with hemoglobin 6.8. Patient received blood transfusion on 05/03/2025. Hemoglobin originally improved to 9.6 but has been downtrending daily and down to 7.4 today. Etiology for worsening anemia secondary to acute blood loss versus AOCD. Order FOBT. Hold all chemical anticoagulation. Patient also diagnosed with atrial fibrillation with rapid ventricular response. Her pulse appears labile with runs into the 110s. We will continue metoprolol and will monitor closely if additional agents are needed. I am going to place Eliquis on hold until fecal occult blood test obtained. Continue midodrine for hypotension. Shock resolved. Continue levothyroxine for hypothyroidism. Patient updated on the plan and in agreement. All questions answered to satisfaction. Please see residents note for additional details and management. Dr. Kadeem MD
[2025-05-06 14:48] LABS: Hematocrit 30.4 % (36.0-46.0); Hemoglobin 10.3 g/dL (12.0-16.0)
--- NOTE | 2025-05-06 15:09 | PC.SS ---
Dialysis referral submitted via [facility] fax in addition referral also submitted via e-mail to [facility] staff, [facility]. Response pending.
--- NOTE | 2025-05-06 15:11 | PC.SS ---
Rounding Note: Patient to be downgraded from ICU today. Dialysis outpatient chair time pending.
[2025-05-07] VITALS (49 sets, daily range): BP systolic 87–117; BP diastolic 41–96; PULSE 73–129; RESP 11–46; TEMP 36–36.3; O2SAT 85–100; BMI 30.3
[2025-05-07 01:55] LABS: OBS Card Lot # 23001; OBS Developer Expiration Date 08/01/2026; OBS Developer Lot # 75023; OBS Performed By wooll1; OBS QC OK? Yes; Occult Blood, Stool Negative (Negative)
[2025-05-07 05:50] LABS: Basophils # (Auto) 0.0 Thou/mm3 (0.0-0.2); Basophils % (Auto) 0 % (0-2.5); Eosinophils # (Auto) 0.3 Thou/mm3 (0.0-0.5); Eosinophils % (Auto) 3 % (0-10); Hematocrit 28.6 % (36.0-46.0); Hemoglobin 9.7 g/dL (12.0-16.0); Immature Granulocytes Auto 0.09 Thou/mm3 (0.00-0.00); Lymphocytes # (Auto) 2.9 Thou/mm3 (1.0-4.8); Lymphocytes % (Auto) 26 % (10-50); Mean Corpuscular HGB Conc 33.9 g/dl (31.0-37.0); Mean Corpuscular Hemoglobin 31.9 pg (25.0-35.0); Mean Corpuscular Volume 94 fL (80-100); Monocytes # (Auto) 1.6 Thou/mm3 (0.0-0.8); Monocytes % (Auto) 14 % (0-12); Neutrophils # (Auto) 6.1 Thou/mm3 (1.8-7.7); Neutrophils % (Auto) 56 % (37-80); Nucleated Red Blood Cell # 0.09 Thou/mm3 (0.00-0.00); Nucleated Red Blood Cell % 1 /100 WBC (0); Platelet Count 127 Thou/mm3 (140-440); RDW Standard Deviation 60.6 fL (36.4-46.3); Red Blood Count 3.04 Miln/mm3 (4.00-5.20); White Blood Count 11.0 Thou/mm3 (3.6-11.0)
[2025-05-07 06:20] LABS: Alanine Aminotransferase 46 U/L (10-49); Albumin, Serum 2.8 gm/dL (3.4-4.8); Albumin/Globulin Ratio 1.2 (1.2-2.2); Alkaline Phosphatase 73 U/L (46-116); Anion Gap 12 (7-16); Aspartate Amino Transferase 16 U/L (0-34); BUN/Creatinine Ratio 4 Ratio (12-20); Bilirubin,Total 0.5 mg/dL (0.3-1.2); Blood Urea Nitrogen 13 mg/dL (9-23); Calcium 8.6 mg/dL (8.3-10.6); Calcium (Corrected) 9.6 mg/dL (8.5-10.1); Carbon Dioxide 20.6 mMol/L (20.0-31.0); Chloride 107 mMol/L (98-107); Creatinine (Component) 2.9 mg/dL (0.6-1.3); Estimated Creatinine Clearance 26.1 mL/min (>60); Globulin 2.3 gm/dL (2.3-3.5); Glucose 81 mg/dL (74-106); Magnesium 2.4 mg/dL (1.6-2.6); Osmolality,Calculated 278 (275-295); Phosphorous 3.1 mg/dL (2.4-5.1); Potassium 3.8 mMol/L (3.4-5.1); Sodium 140 mMol/L (136-145); Total Protein 5.1 gm/dL (5.7-8.2); eGFR 18 See Note
[2025-05-07] MEDS: LEVOTHYROXINE SODIUM 25 MCG TABLET 50 MCG PO (06:55)
[2025-05-07] MEDS: MIDODRINE 5 MG TABLET 10 MG PO ×3 (06:55→21:04)
[2025-05-07] MEDS: ALBUMIN HUMAN 25% IVPB 25 GM/100 ML BTL IV ×2 (13:52→15:30)
--- NOTE | 2025-05-07 14:16 | PC.NURSE ---
BP LOW PRE TX AND AT START OF TX, PT REMAINS ASYMPTOMATIC AND AAOX3. MD LYLE NOTIFIED W/ ORDER TO START TX WITH UF GOAL AT 0.5L AND TO DOSE ALBUMIN 25/100ML AT START OF TX. ORDERS CARRIED OUT WILL CONT. TO MONITOR.
--- NOTE | 2025-05-07 14:32 | PC.NURSE ---
BP LOW PT DENIES ALL COMPLAINTS AND REMAINS RECLINED, UF OFF WILL COINT. TO MONITOR
--- NOTE | 2025-05-07 14:42 | PC.SS ---
Mechanical Engineering Director (ELBA) Yin contacted [facility] and spoke to Admission Coordinator, Lana who reported that patient is welcome back; however, her transportation for outpatient hemodialysis needs to be scheduled. In addition, SS will have to follow-up on Friday with [facility] to confirm that referral is completed and for dialysis schedule.
--- NOTE | 2025-05-07 14:47 | PC.NURSE ---
BP REMAINS LOW, UF REMAINS OFF. PT REMAINS ASYMPTOMATIC WILL CONT. TO MONITOR
--- NOTE | 2025-05-07 14:52 | PC.NURSE ---
BP TRENDING UP, UF GOAL LOWERED TO CLEANING, UF TURNED BACK ON, WILL CONT. TO MONITOR
--- NOTE | 2025-05-07 14:53 | PD.RESPRO ---
Documentation for date of: 05/07/25 Subjective Subjective Interval history: Patient examined at bedside. No events overnight. Has no major complaints. Vitals significant for soft blood pressure rate improving to 80?90. Saturating adequately on room air. Hemoglobin has down trended to 9.7 after receiving 1 unit PRBC yesterday. No evidence of active bleeding low suspicion for GI bleed stool occult was negative. Will continue to monitor hemoglobin and replete as needed. Unknown cause of patient's anemia. Creatinine up trended to 2.9. Will continue to hold metoprolol in setting of her heart failure as currently blood pressure is not permissible for resumption. Continue midodrine for BP support. Resumed apixaban 5 mg twice daily for atrial fibrillation anticoagulation. Continue to coordinate outpatient hemodialysis time. Exam Vital Signs Temp Pulse Resp BP Pulse Ox O2 Del Method O2 Flow Rate 96.9 F 82 18 88/46 L 95 Room Air 3 05/07/25 12:48 05/07/25 14:45 05/07/25 12:48 05/07/25 14:45 05/07/25 12:48 05/06/25 08:00 05/05/25 15:10 FiO2 96 05/01/25 14:45 Narrative Exam General: Alert and oriented x3. No acute distress, cooperative HEENT: NCAT, No JVD noted. Mucosa dry. Pupils are equal and reactive to light bilaterally Cardiovascular: Normal S1 and S2. Regular rate and rhythm. Respiratory: Lungs are clear to auscultation bilaterally. No wheezing or crackles heard. Abdomen: Soft, nontender, not distended, normal bowel sounds. Skin: Warm to touch, dry, no rashes noted, right IJ cath in place, no bleeding Musculoskeletal: No gross injuries. Unable to move FLAKITO and LLE, contracture left hand, +3 pitting edema Neuro: Alert and oriented x3. No focal neuro deficits. Psych: Normal affect and mood Objective Labs 05/08/25 05:37 05/07/25 04:50 Labs: Laboratory Results - last 24 hr 05/06/25 05/07/25 05/07/25 14:36 00:30 04:50 WBC 11.0 RBC 3.04 L Hgb 10.3 L D 9.7 L Hct 30.4 L 28.6 L MCV 94 MCH 31.9 MCHC 33.9 RDW Std Deviation 60.6 H Plt Count 127 L D Neut % (Auto) 56 Lymph % (Auto) 26 [place] % (Auto) 14 H Eos % (Auto) 3 Baso % (Auto) 0 Neut # (Auto) 6.1 Lymph # (Auto) 2.9 [place] # (Auto) 1.6 H Eos # (Auto) 0.3 Baso # (Auto) 0.0 Immature Gran # (Auto) 0.09 H Absolute Nucleated RBC 0.09 H Immature Gran % 1 H Nucleated RBC % 1 H Sodium 140 Potassium 3.8 Chloride 107 Carbon Dioxide 20.6 Anion Gap 12 BUN 13 Creatinine 2.9 H D Estim Creat Clear Calc 26.1 L eGFR 18 L BUN/Creatinine Ratio 4 L Glucose 81 Calculated Osmolality 278 Calcium 8.6 Corrected Calcium 9.6 Phosphorus 3.1 Magnesium 2.4 Total Bilirubin 0.5 AST 16 ALT 46 Alkaline Phosphatase 73 Total Protein 5.1 L Albumin 2.8 L Globulin 2.3 Albumin/Globulin Ratio 1.2 Stool Occult Blood Negative ABG Interpretation ABG results: 04/30/25 04/30/25 05/01/25 16:32 22:23 07:41 ABG pH 7.50 H 7.51 H ABG pCO2 23 L 28 L ABG pO2 140 H 91 D ABG HCO3 18 L 22 ABG O2 Saturation 100 H 99 H ABG Base Excess -4 L -1 VBG pH 6.89 L VBG pCO2 25 L VBG pO2 56 VBG Base Excess -27 L 05/03/25 09:47 ABG pH ABG pCO2 ABG pO2 ABG HCO3 ABG O2 Saturation ABG Base Excess VBG pH 7.48 VBG pCO2 35 L D VBG pO2 32 D VBG Base Excess 2 Quality Measures Quality Measures none Assessment & Plan Assessment Current Active Medications: Generic Name Dose Route Start Last Admin Trade Name Freq PRN Reason Stop Dose Admin Acetaminophen 650 mg 04/30/25 16:49 05/05/25 20:59 Acetaminophen 325 Mg Tablet PO 05/30/25 16:48 650 mg Q4HR PRN Administration PAIN SCALE 1-3 (mild Apixaban 5 mg 05/06/25 11:00 05/06/25 11:12 Apixaban 2.5 Mg Tablet PO 06/05/25 10:59 5 mg BID RIANNA Administration Dextrose 25 ml 04/30/25 16:58 Dextrose 50%-Water Inj 50 Ml Syringe IV 05/30/25 16:57 Q15MIN PRN BG 50-70 responsive npo pt Dextrose 50 ml 04/30/25 16:58 Dextrose 50%-Water Inj 50 Ml Syringe IV 05/30/25 16:57 Q15MIN PRN BG <50 OR BG <70 & pt unresponsive Glucagon 1 mg 04/30/25 16:58 Glucagon Inj 1 Mg Vial IM Q15MIN PRN BG <70, and no IV access Heparin Sodium (Porcine) 3,000 unit 04/30/25 22:13 05/04/25 23:21 Heparin Sod Inj 1000 Unit/Ml Vial 10 Ml INDWELLCAT 05/14/25 22:12 3,000 unit X1 PRN Administration DIALYSIS Levothyroxine Sodium 50 mcg 05/02/25 06:00 05/07/25 06:55 Levothyroxine Sodium 25 Mcg Tablet PO 06/01/25 05:59 50 mcg ACBR RIANNA Administration Metoprolol Succinate 50 mg 05/01/25 09:00 05/02/25 08:05 Metoprolol Succinate Xl 25 Mg Tabcr PO 05/31/25 08:59 Not Given On Hold: 05/02/25 16:26 QDAY RIANNA Midodrine 10 mg 05/06/25 11:00 05/07/25 06:55 Midodrine 5 Mg Tablet PO 06/03/25 10:59 10 mg TID RIANNA Administration Plan Patient was admitted to ICU from ED on 04/30/25. She has history of CVA, atrial fibrillation, HFrEF, CKD, hypothyroidism. Initial chief complaints of abdominal pain, nausea and vomiting. Patient was septic in setting of UTI. She required urgent hemodialysis due to hyperkalemia and acidosis. Nephrology, Dr Landry was consulted for further management and patient was admitted to ICU for closer monitoring. #ARIANA Now most likely intra renal (ATN) after progressing from prerenal in the setting of her sepsis/hypoperfusion. While in the ICU she required hemodialysis as patient was oliguric. Initial creatinine on admission was 6.2 (baseline Cr around 1.0). -Nephrology Dr Landry was consulted who recommended perm cath for outpatient HD. -maintenance fluids cautiously as patient has Hx HFrEF -avoid nephrotoxic agents -renally dose medications -daily CMP #Sepsis 2/2 E coli UTI (resolved) Patient has completed full course of antibiotics for treatment of UTI with Zosyn. No longer experiencing any urinary symptoms. -AM cortisol levels pending -midodrine 10mg TID #Nephrolithiasis Found to have left sided staghorn calculi measuring ~19mm. Nonobstructive. Urology Dr. Lawton was consulted who stated that she is not a surgical candidate for any intervention. At a future time may consider laser stone fragmentation or lithotripsy. -Continue conservative management -follow up outpatient #Atrial fibrillation with RVR #HFrEF (15-20%) Patient has a history of atrial fibrillation on Xarelto. She is rate controlled with metoprolol succinate 50mg daily. Du to worsening kidney function and she was continued with subQ heparin for anticoagulant. Echo from 04/30--Dilated cardiomyopathy, severe global hypokinesis, severe systolic dysfunction. EF 15-20%. Severely dilated left atrium. CHADsVASc score 4 points -stop subQ heparin -continue Apixiban 5 mg BID for anticoagulation -continue to hold rate controlling agents in setting of hypotension (holding metoprolol succinate 50mg daily) -consult Cardiology, appreciate recs -continue to monitor electolytes keeping potassium >4.0 and Mg >2.0 #Normocytic anemia Hb on admission was 11.0. It was been slowly downtrending to lowest 6.8. She was given prbc with improvement seen. Total of 2 units have been transfused since admission. (Fe 36) Possible causes include CKD or chronic infection, -FOBT pending -daily CBC -transfuse rbc unit if Hb <7 #Hypothyroidism TSH 2.39, free T4 1.6 -continue levothyroxine 50mcg #CVA No new findings of stroke on head imaging. Patient takes atorvastatin 20 mg daily outpatient and was on Xarelto. -hold atrovastatin until further improvement in LFTS -resume Apixaban 5mg BID vs Xarelto due to nephrotoxicity. #Seizure disorder -continue divalproex 250mg BID Health maintenance: Dispo: pending outpatient HD chair time FEN: cardiac diet DVT prophylaxis: apixaban 5 BID CODE STATUS: Full code The patient's management plan was discussed with my attending physician Dr. Quan. Alina Lees, PGY-2 Attending Provider Attestation/Addendum I have examined the patient, reviewed labs and imaging findings, discussed the case with the resident(s), and reviewed entered orders. I agree with the plan of care as outlined in this note, with these additional summaries/recommendations: Patient seen at bedside. No acute overnight events. Patient has no new symptoms to report today.. Patient is s/p right IJ permanent tunneled dialysis catheter. Case management working on arranging outpatient chair time. In house nephrology following for acute renal failure. Patient was seen by urology for bilateral staghorn calculi and not a surgical candidate at this time and will need to follow-up at a later date. Patient is s/p Zosyn for urinary tract infection. Patient was found to have symptomatic anemia on admission with hemoglobin 6.8. Patient received blood transfusion on 05/03/2025. Hemoglobin originally improved to 9.6 but has been downtrending daily and down to 7.4. 05/06/25. Patient received an additional unit of PRBCs on 05/06/25. FOBT negative. Most likely symptomatic anemia due to renal failure. We will discuss Epogen replacement with nephrology. Given that FOBT was negative we will resume anticoagulation today. Patient also diagnosed with atrial fibrillation with rapid ventricular response. Her pulse appears labile with runs into the 110s. We will continue metoprolol and consult cardiology for further optimization of patient's antiarrhythmic regimen. Patient has HFrEF with ejection fraction of 15 to 20%. We will continue to optimize goal-directed medical therapy as tolerated. Continue midodrine for hypotension. Shock resolved. Continue levothyroxine for hypothyroidism. Patient updated on the plan and in agreement. All questions answered to satisfaction. Please see residents note for additional details and management. Dr. Kadeem MD
--- NOTE | 2025-05-07 15:08 | PC.NURSE ---
BP TRENDING DOWN AGAIN, PT CONT'S TO DENY ALL COMPLAINTS. UF TURNED OFF WILL CONT. TO MONITOR
--- NOTE | 2025-05-07 15:43 | PC.NURSE ---
PT IS AWAKE ALERT AND ORIENTATED, BP TRENDING BACK UP. PT DENIES ALL COMPLAINTS.PT WAS ADMINISTERED 10MG MIDODRINE AND ALBUMIN 25/100ML. UF RESUMED. WILL CONT. TO MONITOR
--- NOTE | 2025-05-07 16:51 | PC.NURSE ---
BP LOW PT REMAINS W/O COMPLAINTS OF S/S OF HYPOTENSION WILL RECHECK
[2025-05-07] MEDS: HEPARIN SOD INJ 1000 UNIT/ML VIAL 10 ML 3000 UNIT INDWELLCAT (17:20)
[2025-05-07] MEDS: ACETAMINOPHEN 325 MG TABLET 650 MG PO (20:15)
[2025-05-07] MEDS: APIXABAN 2.5 MG TABLET 5 MG PO (21:05)
[2025-05-08] VITALS (15 sets, daily range): BP systolic 103–128; BP diastolic 75–94; PULSE 72–120; RESP 17–20; TEMP 36.1–37.1; O2SAT 94–98
[2025-05-08] MEDS: LEVOTHYROXINE SODIUM 25 MCG TABLET 50 MCG PO (05:46)
[2025-05-08] MEDS: MIDODRINE 5 MG TABLET 10 MG PO ×3 (05:46→21:29)
[2025-05-08 06:19] LABS: Basophils # (Auto) 0.0 Thou/mm3 (0.0-0.2); Basophils % (Auto) 0 % (0-2.5); Eosinophils # (Auto) 0.3 Thou/mm3 (0.0-0.5); Eosinophils % (Auto) 3 % (0-10); Hematocrit 25.9 % (36.0-46.0); Immature Granulocytes Auto 0.06 Thou/mm3 (0.00-0.00); Lymphocytes # (Auto) 2.7 Thou/mm3 (1.0-4.8); Lymphocytes % (Auto) 30 % (10-50); Mean Corpuscular HGB Conc 33.2 g/dl (31.0-37.0); Mean Corpuscular Hemoglobin 31.6 pg (25.0-35.0); Mean Corpuscular Volume 95 fL (80-100); Monocytes # (Auto) 1.4 Thou/mm3 (0.0-0.8); Monocytes % (Auto) 16 % (0-12); Neutrophils # (Auto) 4.5 Thou/mm3 (1.8-7.7); Neutrophils % (Auto) 50 % (37-80); Nucleated Red Blood Cell # 0.06 Thou/mm3 (0.00-0.00); Nucleated Red Blood Cell % 1 /100 WBC (0); Platelet Count 152 Thou/mm3 (140-440); RDW Standard Deviation 59.3 fL (36.4-46.3); Red Blood Count 2.72 Miln/mm3 (4.00-5.20); White Blood Count 9.0 Thou/mm3 (3.6-11.0)
[2025-05-08 06:29] LABS: Hemoglobin 8.6 g/dL (12.0-16.0)
[2025-05-08 08:05] LABS: Alanine Aminotransferase 29 U/L (10-49); Albumin, Serum 3.4 gm/dL (3.4-4.8); Albumin/Globulin Ratio 1.6 (1.2-2.2); Alkaline Phosphatase 65 U/L (46-116); Anion Gap 14 (7-16); Aspartate Amino Transferase 16 U/L (0-34); BUN/Creatinine Ratio 5 Ratio (12-20); Bilirubin,Total 0.7 mg/dL (0.3-1.2); Blood Urea Nitrogen 11 mg/dL (9-23); Calcium 8.7 mg/dL (8.3-10.6); Calcium (Corrected) 9.2 mg/dL (8.5-10.1); Carbon Dioxide 26.1 mMol/L (20.0-31.0); Chloride 103 mMol/L (98-107); Creatinine (Component) 2.2 mg/dL (0.6-1.3); Estimated Creatinine Clearance 36.4 mL/min (>60); Globulin 2.1 gm/dL (2.3-3.5); Glucose 84 mg/dL (74-106); Magnesium 2.2 mg/dL (1.6-2.6); Osmolality,Calculated 283 (275-295); Potassium 2.9 mMol/L (3.4-5.1); Sodium 143 mMol/L (136-145); Total Protein 5.5 gm/dL (5.7-8.2); eGFR 25 See Note
[2025-05-08] MEDS: APIXABAN 2.5 MG TABLET 5 MG PO ×2 (08:31→21:29)
--- NOTE | 2025-05-08 10:45 | ESPR_ITS ---
Documentation for date of: 05/08/25 Subjective Subjective Interval history: No acute overnight events reported. Patient had 2 bowel movements yesterday. Pt seen and examined at bedside. Patient is able to speak to her at [facility] and able to update him regarding her current course and future plan. Patient was notified that she is awaiting placement for dialysis outpatient and can be discharged hopefully in the next 24 to 48 hours. Patient otherwise was seen in happy spirits awaiting to watch the football game today. Pt denies any other acute complaints at this time. Patient's labs are significant for a 1 unit drop in her hemoglobin from 9.7-8.6. Patient's potassium was also low at 2.9 and will replete with 40 mill he equivalents of potassium. Patient also has HFrEF and has not been on any GDMT, and will start with SGLT2 which will benefit both her heart failure and kidney failure unable to add any other GDMT medications at this time due to her fluctuating blood pressure. Will reach out to nephrology for possibly Epogen during dialysis on Friday. Will consider hematology consult if patient's hemoglobin trend continues to downtrend. Patient was also complaining of chronic shoulder pain this afternoon, and will give her a [place] 5 mg x 1. Exam Vital Signs Temp Pulse Resp BP Pulse Ox O2 Del Method O2 Flow Rate 97.0 F 90 18 115/85 H 96 Nasal Cannula 3 05/08/25 08:00 05/08/25 08:00 05/08/25 08:00 05/08/25 08:00 05/08/25 08:00 05/08/25 08:00 05/08/25 08:00 FiO2 96 05/01/25 14:45 Narrative Exam General: Alert and oriented x3. No acute distress, cooperative HEENT: NCAT, No JVD noted. Mucosa dry. Pupils are equal and reactive to light bilaterally Cardiovascular: Normal S1 and S2. Regular rate and rhythm. Respiratory: Lungs are clear to auscultation bilaterally. No wheezing or crackles heard. Abdomen: Soft, nontender, not distended, normal bowel sounds. Skin: Warm to touch, dry, no rashes noted, right IJ cath in place, no bleeding Musculoskeletal: No gross injuries. Unable to move FLAKITO and LLE, contracture left hand, +2 pitting edema Neuro: Alert and oriented x3. No focal neuro deficits. Psych: Normal affect and mood Objective Labs 05/09/25 04:55 05/09/25 04:55 Labs: Laboratory Results - last 24 hr 05/08/25 05:37 WBC 9.0 RBC 2.72 L Hgb 8.6 L Hct 25.9 L MCV 95 MCH 31.6 MCHC 33.2 RDW Std Deviation 59.3 H Plt Count 152 Neut % (Auto) 50 Lymph % (Auto) 30 Hall % (Auto) 16 H Eos % (Auto) 3 Baso % (Auto) 0 Neut # (Auto) 4.5 Lymph # (Auto) 2.7 Hall # (Auto) 1.4 H Eos # (Auto) 0.3 Baso # (Auto) 0.0 Immature Gran # (Auto) 0.06 H Absolute Nucleated RBC 0.06 H Immature Gran % 1 H Nucleated RBC % 1 H Sodium 143 Potassium 2.9 L D Chloride 103 Carbon Dioxide 26.1 Anion Gap 14 BUN 11 Creatinine 2.2 H D Estim Creat Clear Calc 36.4 L eGFR 25 L BUN/Creatinine Ratio 5 L Glucose 84 Calculated Osmolality 283 Calcium 8.7 Corrected Calcium 9.2 Magnesium 2.2 Total Bilirubin 0.7 AST 16 ALT 29 Alkaline Phosphatase 65 Total Protein 5.5 L Albumin 3.4 D Globulin 2.1 L Albumin/Globulin Ratio 1.6 ABG Interpretation ABG results: 04/30/25 04/30/25 05/01/25 16:32 22:23 07:41 ABG pH 7.50 H 7.51 H ABG pCO2 23 L 28 L ABG pO2 140 H 91 D ABG HCO3 18 L 22 ABG O2 Saturation 100 H 99 H ABG Base Excess -4 L -1 VBG pH 6.89 L VBG pCO2 25 L VBG pO2 56 VBG Base Excess -27 L 05/03/25 09:47 ABG pH ABG pCO2 ABG pO2 ABG HCO3 ABG O2 Saturation ABG Base Excess VBG pH 7.48 VBG pCO2 35 L D VBG pO2 32 D VBG Base Excess 2 Quality Measures Quality Measures none Assessment & Plan Assessment Current Active Medications: Generic Name Dose Route Start Last Admin Trade Name Freq PRN Reason Stop Dose Admin Acetaminophen 650 mg 04/30/25 16:49 05/07/25 20:15 Acetaminophen 325 Mg Tablet PO 05/30/25 16:48 650 mg Q4HR PRN Administration PAIN SCALE 1-3 (mild Apixaban 5 mg 05/06/25 11:00 05/08/25 08:31 Apixaban 2.5 Mg Tablet PO 06/05/25 10:59 5 mg BID RIANNA Administration Dapagliflozin 10 mg 05/08/25 10:45 Dapagliflozin Propanediol 5 Mg Tablet PO 06/07/25 10:44 QAM RIANNA Dextrose 25 ml 04/30/25 16:58 Dextrose 50%-Water Inj 50 Ml Syringe IV 05/30/25 16:57 Q15MIN PRN BG 50-70 responsive npo pt Dextrose 50 ml 04/30/25 16:58 Dextrose 50%-Water Inj 50 Ml Syringe IV 05/30/25 16:57 Q15MIN PRN BG <50 OR BG <70 & pt unresponsive Glucagon 1 mg 04/30/25 16:58 Glucagon Inj 1 Mg Vial IM Q15MIN PRN BG <70, and no IV access Heparin Sodium (Porcine) 3,000 unit 04/30/25 22:13 05/07/25 17:20 Heparin Sod Inj 1000 Unit/Ml Vial 10 Ml INDWELLCAT 05/14/25 22:12 3,000 unit X1 PRN Administration DIALYSIS Albumin Human 25 gm in 100 mls @ 100 mls/min 05/07/25 15:17 05/07/25 15:30 Albuminar-25 Ivpb IV 100 mls/min PRN PRN Administration DIALYSIS Levothyroxine Sodium 50 mcg 05/02/25 06:00 05/08/25 05:46 Levothyroxine Sodium 25 Mcg Tablet PO 06/01/25 05:59 50 mcg ACBR RIANNA Administration Metoprolol Succinate 50 mg 05/01/25 09:00 05/02/25 08:05 Metoprolol Succinate Xl 25 Mg Tabcr PO 05/31/25 08:59 Not Given On Hold: 05/02/25 16:26 QDAY RIANNA Midodrine 10 mg 05/06/25 11:00 05/08/25 05:46 Midodrine 5 Mg Tablet PO 06/03/25 10:59 10 mg TID RIANNA Administration Potassium Chloride 20 meq 05/08/25 11:30 Potassium Chloride 20 Meq Tabcr PO 05/08/25 11:31 X1 ONE Plan Ms. Whaley is a 64-year-old female with past medical history significant for CVA, atrial fibrillation, HFrEF, CKD, hypothyroidism who presented to ED with abdominal pain, nausea/vomiting and admitted initially to ICU on 04/03/2025. Patient was admitted to ICU from ED on 04/30/25. She required urgent hemodialysis due to hyperkalemia and acidosis. Patient was also developed septic shock in setting of E. coli UTI. #Acute renal failure Now most likely intra renal (ATN) after progressing from prerenal in the setting of her sepsis/hypoperfusion. While in the ICU she required hemodialysis as patient was oliguric. Initial creatinine on admission was 6.2 (baseline Cr around 1.0). -Nephrology Dr Landry was consulted who recommended perm cath for outpatient HD for Friday -Awaiting dialysis chair outpatient chair time -Avoid nephrotoxic agents -Renally dose medications -Daily CMP -Will start SGLT2, dapagliflozin which will help with both heart acute renal failure and heart failure #Atrial fibrillation with RVR #HFrEF (15-20%) Patient has a history of atrial fibrillation on Xarelto. She is rate controlled with metoprolol succinate 50mg daily. Du to worsening kidney function and she was continued with subQ heparin for anticoagulant. Echo from 04/30--Dilated cardiomyopathy, severe global hypokinesis, severe systolic dysfunction. EF 15-20%. Severely dilated left atrium. CHADsVASc score 4 points -continue Apixiban 5 mg BID for anticoagulation -continue to hold rate controlling agents in setting of hypotension (holding metoprolol succinate 50mg daily) -consult Cardiology, appreciate recs -continue to monitor electolytes keeping potassium >4.0 and Mg >2.0 -Will start GDMT medications with dapagliflozin, and try to initiate other GDMT if her blood pressure tolerates #Normocytic anemia Hb on admission was 11.0. It was been slowly downtrending to lowest 6.8. She was given prbc with improvement seen. Total of 2 units have been transfused since admission. (Fe 36); differential diagnosis slightly from possible causes include CKD or chronic infection -FOBT negative -daily CBC -transfuse rbc unit if Hb <7 - Can consider Epogen with dialysis on next session on Friday either in hospital or outpatient #Sepsis 2/2 E coli UTI (resolved) Patient has completed full course of antibiotics for treatment of UTI with Zosyn. No longer experiencing any urinary symptoms. -AM cortisol levels pending -Midodrine 10mg TID #Nephrolithiasis Found to have left sided staghorn calculi measuring ~19mm. Nonobstructive. Urology Dr. Lawton was consulted who stated that she is not a surgical candidate for any intervention. At a future time may consider laser stone fragmentation or lithotripsy. -Continue conservative management -follow up outpatient #Hypothyroidism TSH 2.39, free T4 1.6 -continue levothyroxine 50mcg #CVA No new findings of stroke on head imaging. Patient takes atorvastatin 20 mg daily outpatient and was on Xarelto. -hold atrovastatin until further improvement in LFTS -resume Apixaban 5mg BID vs Xarelto due to nephrotoxicity. #Seizure disorder -continue Divalproex 250mg BID Health Maintenance: DVT prophylaxis: Apixaban 5 mg twice daily Diet: Cardiac Turner: No Lines: PIV, right IJ tunneled dialysis catheter Supplemental O2: 3 L nasal cannula CODE STATUS: Full code Disposition: Patient is currently [facility] waiting for outpatient chair time to be discharged within 24-48 hours. Patient's plan and care discussed with my attending, Dr. Kadeem Joyce MD PGY-3 Attending Provider Attestation/Addendum I have examined the patient, reviewed labs and imaging findings, discussed the case with the resident(s), and reviewed entered orders. I agree with the plan of care as outlined in this note, with these additional summaries/recommendations: Patient seen at bedside. No acute overnight events. Patient is s/p right IJ permanent tunneled dialysis catheter. Case management working on arranging outpatient chair time & placement. In house nephrology following for acute renal failure. Patient was seen by urology for bilateral staghorn calculi and not a surgical candidate at this time and will need to follow-up at a later date. Patient is s/p Zosyn for urinary tract infection. Patient was found to have symptomatic anemia on admission with hemoglobin 6.8. Patient received blood transfusion on 05/03/2025. Hemoglobin originally improved to 9.6 but has been downtrending daily. Patient received an additional unit of PRBCs on 05/06/25. FOBT negative. Most likely symptomatic anemia due to renal failure. We will discuss Epogen replacement with nephrology. Given that FOBT was negative we will resume anticoagulation today. If no improvement with epogen patient then patient would likely benefit from hematology referral. Patient also diagnosed with atrial fibrillation with rapid ventricular response. We will continue metoprolol and consult cardiology for further optimization of patient's antiarrhythmic regimen. Continue Eliquis for elevated CHADSvasc. Patient has HFrEF with ejection fraction of 15 to 20%. We will continue to optimize goal- directed medical therapy as tolerated although unsuccessful to date given hypotension. Continue midodrine for hypotension. Shock resolved. Continue levothyroxine for hypothyroidism. Patient updated on the plan and in agreement. All questions answered to satisfaction. Please see residents note for additional details and management. Dr. Kadeem MD
[2025-05-08] MEDS: DAPAGLIFLOZIN PROPANEDIOL 5 MG TABLET 10 MG PO (10:53)
[2025-05-08] MEDS: HYDROcodone/APAP 5/325 TABLET 1 TAB PO (13:14)
--- NOTE | 2025-05-08 15:23 | PC.SS ---
Rounding note: pending chair time, Dialysis closed on weekends, SS follow up on Friday.
[2025-05-08] MEDS: ATORVASTATIN CALCIUM 20 MG TABLET PO (21:29)
--- NOTE | 2025-05-08 22:04 | PC.NURSE ---
Dr. Kapadia and Dr. Pastor at bedside assessing patient due to A-fib 125 with BBB rhythm. to order EKG and CMP.
--- NOTE | 2025-05-08 22:41 | EKG_ITS ---
[facility] Test Date: 2025-05-08 Pat Name: RUBÉN VIVAR Department: Room: S373A Gender: Female Tripoler: BREN : 1960 Requested By: Tayla Pastor Order Number: [id number] Reading MD: Tayla Pastor Measurements Intervals Julian Rate: 115 P: ND: QRS: -19 QRSD: 132 T: 106 QT: 351 QTc: 486 Interpretive Statements ATRIAL FIBRILLATION WITH RAPID VENTRICULAR RESPONSE INTRAVENTRICULAR CONDUCTION DELAY MODERATE VOLTAGE CRITERIA FOR LVH, CONSIDER NORMAL VARIANT Compared to ECG 05/01/2025 06:56:06 Ventricular premature complex(es) no longer present Aberrant conduction of supraventricular beat(s) no longer present Left-axis deviation no longer present T-wave abnormality no longer present Possible ischemia no longer present /store/S0/[id number]/ecg/[id number].pdf
[2025-05-08 23:33] LABS: Anion Gap 12 (7-16); BUN/Creatinine Ratio 6 Ratio (12-20); Blood Urea Nitrogen 16 mg/dL (9-23); Calcium 8.7 mg/dL (8.3-10.6); Carbon Dioxide 23.2 mMol/L (20.0-31.0); Chloride 106 mMol/L (98-107); Creatinine (Component) 2.9 mg/dL (0.6-1.3); Estimated Creatinine Clearance 27.6 mL/min (>60); Glucose 106 mg/dL (74-106); Magnesium 2.2 mg/dL (1.6-2.6); Osmolality,Calculated 282 (275-295); Potassium 4.1 mMol/L (3.4-5.1); Sodium 141 mMol/L (136-145); eGFR 18 See Note
[2025-05-08] MEDS: AMIODARONE 150 MG IVPB 150 MG/100 ML BAG 600 MG IV (23:39)
[2025-05-08] MEDS: AMIODARONE 360 MG IVPB 360 MG/200 ML BAG 33.333 MG IV (23:55)
[2025-05-09] VITALS (13 sets, daily range): BP systolic 101–137; BP diastolic 71–102; PULSE 72–140; RESP 16–22; TEMP 36.2–36.6; O2SAT 91–100; BMI 33.0
[2025-05-09] MEDS: DiphenhydrAMINE ELIX 25 MG/10 ML UDC 12.5 MG PO (01:42)
--- NOTE | 2025-05-09 02:16 | PC.NURSE ---
Patient complaining of not feeling well and uncomfortable. No pain reported, some anxiety noted, and unable to sleep. Physician was notified and Hydroxizine 12.5mg PO and Benadryl 5mL PO was administered.
--- NOTE | 2025-05-09 05:03 | PC.NURSE ---
pt complaining of difficulty breathing PHOTOENGRAVING HELPER called, pt transferred to TELE
--- NOTE | 2025-05-09 05:13 | PD.RESEVENT ---
Documentation for date of: 05/09/25 Event Note Event Note: Around 5:00AM RR was called as patient was found anxious and briefly desatted to 85% on room air. At the time of arrival, she was alert, awake, talkative, but restless. She complained of feeling anxious and out of this world. Denies chest pain, sob, or palpitations. Earlier in during the night she had complained of anxiety and inability to sleep for which she was given HYDROXYZINE, BENADRYL, and ATIVAN 0.5 mx x1 but was still unable to sleep. She has been on AMIODARONE ggt for AFIB with RVR seen earlier on EKG. HR during RR was 110-140s, BP 134/92, afebrile, temperature and glucose were normal. Oxygenation was in upper 90s on room air and remained stabled. We gave magnesium 2 mg, and SEROQUIL for anxiety. AM labs were collected and will follow-up. Case was discussed with attending physician, Dr. Kapadia. Melissa Nguyen, PGY II This document was transcribed using voice recognition technology. Minor inaccuracies may be present.
[2025-05-09] MEDS: AMIODARONE 360 MG IVPB 360 MG/200 ML BAG 16.667 MG IV ×2 (05:30→18:26)
[2025-05-09 05:34] LABS: Basophils # (Auto) 0.1 Thou/mm3 (0.0-0.2); Basophils % (Auto) 0 % (0-2.5); Eosinophils # (Auto) 0.1 Thou/mm3 (0.0-0.5); Eosinophils % (Auto) 1 % (0-10); Hematocrit 30.3 % (36.0-46.0); Hemoglobin 9.7 g/dL (12.0-16.0); Immature Granulocytes Auto 0.14 Thou/mm3 (0.00-0.00); Lymphocytes # (Auto) 3.4 Thou/mm3 (1.0-4.8); Lymphocytes % (Auto) 24 % (10-50); Mean Corpuscular HGB Conc 32.0 g/dl (31.0-37.0); Mean Corpuscular Hemoglobin 31.2 pg (25.0-35.0); Mean Corpuscular Volume 97 fL (80-100); Monocytes # (Auto) 1.9 Thou/mm3 (0.0-0.8); Monocytes % (Auto) 13 % (0-12); Neutrophils # (Auto) 8.8 Thou/mm3 (1.8-7.7); Neutrophils % (Auto) 61 % (37-80); Nucleated Red Blood Cell # 0.08 Thou/mm3 (0.00-0.00); Nucleated Red Blood Cell % 1 /100 WBC (0); Platelet Count 238 Thou/mm3 (140-440); RDW Standard Deviation 61.1 fL (36.4-46.3); Red Blood Count 3.11 Miln/mm3 (4.00-5.20); White Blood Count 14.3 Thou/mm3 (3.6-11.0)
[2025-05-09] MEDS: MIDODRINE 5 MG TABLET 10 MG PO ×2 (05:34→14:34)
[2025-05-09] MEDS: LEVOTHYROXINE SODIUM 25 MCG TABLET 50 MCG PO (05:34)
--- NOTE | 2025-05-09 06:15 | PC.NURSE ---
Received report from ALONDRA Mars. Pt transfer from CDU.
[2025-05-09 06:21] LABS: Alanine Aminotransferase 24 U/L (10-49); Albumin, Serum 3.5 gm/dL (3.4-4.8); Albumin/Globulin Ratio 1.5 (1.2-2.2); Alkaline Phosphatase 80 U/L (46-116); Anion Gap 18 (7-16); Aspartate Amino Transferase < 8 U/L (0-34); BUN/Creatinine Ratio 6 Ratio (12-20); Bilirubin,Total 0.8 mg/dL (0.3-1.2); Blood Urea Nitrogen 18 mg/dL (9-23); Calcium 9.0 mg/dL (8.3-10.6); Calcium (Corrected) 9.4 mg/dL (8.5-10.1); Carbon Dioxide 20.7 mMol/L (20.0-31.0); Chloride 101 mMol/L (98-107); Creatinine (Component) 3.2 mg/dL (0.6-1.3); Estimated Creatinine Clearance 25.0 mL/min (>60); Globulin 2.4 gm/dL (2.3-3.5); Glucose 192 mg/dL (74-106); Magnesium 2.3 mg/dL (1.6-2.6); Osmolality,Calculated 286 (275-295); Potassium 4.2 mMol/L (3.4-5.1); Sodium 140 mMol/L (136-145); Total Protein 5.9 gm/dL (5.7-8.2); eGFR 16 See Note
[2025-05-09] MEDS: EPOETIN ALFA-EPBX INJ 10,000 UNIT/ML VIAL (NON-ESRD) 10000 UNIT SC (09:20)
[2025-05-09] MEDS: APIXABAN 2.5 MG TABLET 5 MG PO ×2 (09:20→20:50)
[2025-05-09] MEDS: DAPAGLIFLOZIN PROPANEDIOL 5 MG TABLET 10 MG PO (09:20)
--- NOTE | 2025-05-09 09:29 | PC.SS ---
SS follow up note; SS contacted [facility] in [place], they informed SS that patient was approved, however Chair time is still pending. Kaitlin will contact SS once chair time is established.
[2025-05-09] MEDS: DIVALPROEX SOD ER 250 MG TABER (NON-FORMULARY) PO ×2 (12:11→20:54)
--- NOTE | 2025-05-09 13:53 | PD.RESPRO ---
Documentation for date of: 05/09/25 Subjective Subjective Interval history: Patient examined at bedside. Overnight patient was very agitated and anxious. She had a RR due to desaturating on room air around 85%. She was given hydroxyzine 12.5 mg, benadryl 12.5mg, Ativan 0.5 mg x1, and Seroquel 25mg. EKG showed Afib with RVR rate of 130s. Patient was started on amiodarone drip. This morning tele was reviewed--patient remains in afib with rate 100-120s. Possibly due to anxiety and she is eager to leave to be with her vs withdrawl of her home medications for pain/mood. Plan to resume her home hydroxyzine and [place] 10s for pain PRN. Leukocytosis today on labs at 14. Possibly reactive, less concerned for infection as she has completed full course of IV Zosyn during this admission for E coli UTI. Discontinue dapaglifozin as patient is now receiving HD and is not dialyzable. Hb uptrended to 9.7 with EPO started by nephrology. Plan for HD session tomorrow. Continue coordination for outpatient HD. BP not yet permissable to resume GDMT. Will continue to monitor. Exam Vital Signs Temp Pulse Resp BP Pulse Ox O2 Del Method O2 Flow Rate 97.7 F 111 H 20 109/88 H 100 Nasal Cannula 3 05/09/25 08:00 05/09/25 08:00 05/09/25 08:00 05/09/25 08:00 05/09/25 08:00 05/09/25 04:00 05/08/25 16:00 FiO2 96 05/01/25 14:45 Narrative Exam General: Alert and oriented x3. No acute distress, cooperative HEENT: NCAT, No JVD noted. Mucosa dry. Pupils are equal and reactive to light bilaterally Cardiovascular: Normal S1 and S2. Regular rate and rhythm. Respiratory: Lungs are clear to auscultation bilaterally. No wheezing or crackles heard. Abdomen: Soft, nontender, not distended, normal bowel sounds. Skin: Warm to touch, dry, no rashes noted, right IJ cath in place, no bleeding Musculoskeletal: No gross injuries. Unable to move FLAKITO and LLE, contracture left hand, +2 pitting edema Neuro: Alert and oriented x3. No focal neuro deficits. Psych: Normal affect and mood Objective Labs 05/09/25 04:55 05/09/25 04:55 Labs: Laboratory Results - last 24 hr 05/01/25 05/08/25 05/09/25 04:30 22:57 04:55 WBC 14.3 H D RBC 3.11 L Hgb 9.7 L Hct 30.3 L MCV 97 MCH 31.2 MCHC 32.0 RDW Std Deviation 61.1 H Plt Count 238 D Neut % (Auto) 61 Lymph % (Auto) 24 [place] % (Auto) 13 H Eos % (Auto) 1 Baso % (Auto) 0 Neut # (Auto) 8.8 H Lymph # (Auto) 3.4 [place] # (Auto) 1.9 H Eos # (Auto) 0.1 Baso # (Auto) 0.1 Immature Gran # (Auto) 0.14 H Absolute Nucleated RBC 0.08 H Immature Gran % 1 H Nucleated RBC % 1 H Sodium 141 140 Potassium 4.1 D 4.2 Chloride 106 101 Carbon Dioxide 23.2 20.7 Anion Gap 12 18 H BUN 16 18 Creatinine 2.9 H D 3.2 H Estim Creat Clear Calc 27.6 L 25.0 L eGFR 18 L 16 L BUN/Creatinine Ratio 6 L 6 L Glucose 106 192 H D Calculated Osmolality 282 286 Calcium 8.7 9.0 Corrected Calcium 9.4 Magnesium 2.2 2.3 Total Bilirubin 0.8 AST < 8 ALT 24 Alkaline Phosphatase 80 D Total Protein 5.9 Albumin 3.5 Globulin 2.4 Albumin/Globulin Ratio 1.5 Misc Test Result See Sep Rpt ABG Interpretation ABG results: 04/30/25 04/30/25 05/01/25 16:32 22:23 07:41 ABG pH 7.50 H 7.51 H ABG pCO2 23 L 28 L ABG pO2 140 H 91 D ABG HCO3 18 L 22 ABG O2 Saturation 100 H 99 H ABG Base Excess -4 L -1 VBG pH 6.89 L VBG pCO2 25 L VBG pO2 56 VBG Base Excess -27 L 05/03/25 09:47 ABG pH ABG pCO2 ABG pO2 ABG HCO3 ABG O2 Saturation ABG Base Excess VBG pH 7.48 VBG pCO2 35 L D VBG pO2 32 D VBG Base Excess 2 Quality Measures Quality Measures none Assessment & Plan Assessment Current Active Medications: Generic Name Dose Route Start Last Admin Trade Name Marysol PRN Reason Stop Dose Admin Acetaminophen 650 mg 04/30/25 16:49 05/07/25 20:15 Acetaminophen 325 Mg Tablet PO 05/30/25 16:48 650 mg Q4HR PRN Administration PAIN SCALE 1-3 (mild Hydrocodone Bitart/Acetaminophen 1 tab 05/09/25 10:45 Hydrocodone/Apap 10/325 Tab PO 05/14/25 10:44 Q8H PRN pain 7-10 Apixaban 5 mg 05/06/25 11:00 05/09/25 09:20 Apixaban 2.5 Mg Tablet PO 06/05/25 10:59 5 mg BID RIANNA Administration Atorvastatin Calcium 20 mg 05/08/25 21:00 05/08/25 21:29 Atorvastatin Calcium 20 Mg Tablet PO 06/07/25 20:59 20 mg HS RIANNA Administration Dextrose 25 ml 04/30/25 16:58 Dextrose 50%-Water Inj 50 Ml Syringe IV 05/30/25 16:57 Q15MIN PRN BG 50-70 responsive npo pt Dextrose 50 ml 04/30/25 16:58 Dextrose 50%-Water Inj 50 Ml Syringe IV 05/30/25 16:57 Q15MIN PRN BG <50 OR BG <70 & pt unresponsive Divalproex Sodium 250 mg 05/09/25 11:00 05/09/25 12:11 Divalproex Sod Er 250 Mg Tashia (Non-Formulary) PO 06/08/25 10:59 250 mg BID RIANNA Administration Epoetin Jemal 10,000 unit 05/09/25 09:00 05/09/25 09:20 Epoetin Jemal-Epbx Inj 10,000 Unit/Ml Vial (Non-Esrd) SC 06/08/25 08:59 10,000 unit 2 X WEEKLY RIANNA Administration Glucagon 1 mg 04/30/25 16:58 Glucagon Inj 1 Mg Vial IM Q15MIN PRN BG <70, and no IV access Heparin Sodium (Porcine) 3,000 unit 04/30/25 22:13 05/07/25 17:20 Heparin Sod Inj 1000 Unit/Ml Vial 10 Ml INDWELLCAT 05/14/25 22:12 3,000 unit X1 PRN Administration DIALYSIS Hydroxyzine HCl 25 mg 05/09/25 10:45 05/09/25 11:16 Hydroxyzine Hcl 25 Mg Tablet PO 06/08/25 10:44 25 mg BID RIANNA Administration Albumin Human 25 gm in 100 mls @ 100 mls/min 05/07/25 15:17 05/07/25 15:30 Albuminar-25 Ivpb IV 100 mls/min PRN PRN Administration DIALYSIS Amiodarone HCl/Dextrose 360 mg in 200 mls @ 16.667 mls/hr 05/08/25 23:15 05/09/25 05:30 Nexterone Ivpb IV 05/09/25 23:14 16.667 mls/hr .Q12H RIANNA Administration Levothyroxine Sodium 50 mcg 05/02/25 06:00 05/09/25 05:34 Levothyroxine Sodium 25 Mcg Tablet PO 06/01/25 05:59 50 mcg ACBR RIANNA Administration Melatonin 3 mg 05/09/25 10:45 Melatonin 3 Mg Tablet PO HS PRN sleep Midodrine 10 mg 05/06/25 11:00 05/09/25 05:34 Midodrine 5 Mg Tablet PO 06/03/25 10:59 10 mg TID RIANNA Administration Ropinirole HCl 1 mg 05/09/25 11:00 05/09/25 11:16 Ropinirole Hcl 1 Mg Tablet PO 06/08/25 10:59 1 mg QDAY RIANNA Administration Plan Ms. Whaley is a 64-year-old female with past medical history significant for CVA, atrial fibrillation, HFrEF, CKD, hypothyroidism who presented to ED with abdominal pain, nausea/vomiting and admitted initially to ICU on 04/03/2025. Patient was admitted to ICU from ED on 04/30/25. She required urgent hemodialysis due to hyperkalemia and acidosis. Patient was also developed septic shock in setting of E. coli UTI. #Acute renal failure Now most likely intra renal (ATN) after progressing from prerenal in the setting of her sepsis/hypoperfusion. While in the ICU she required hemodialysis as patient was oliguric. Initial creatinine on admission was 6.2 (baseline Cr around 1.0). -Nephrology Dr Landry was consulted who recommended perm cath for outpatient HD for Friday -Awaiting dialysis chair outpatient chair time -Avoid nephrotoxic agents -Renally dose medications -Daily CMP -discontinue SGLT2, dapagliflozin--agent is not dialyazble. #Atrial fibrillation with RVR #HFrEF (15-20%) Patient has a history of atrial fibrillation on Xarelto. She is rate controlled with metoprolol succinate 50mg daily. Du to worsening kidney function and she was continued with subQ heparin for anticoagulant. Echo from 04/30--Dilated cardiomyopathy, severe global hypokinesis, severe systolic dysfunction. EF 15-20%. Severely dilated left atrium. CHADsVASc score 4 points -continue Apixiban 5 mg BID for anticoagulation -finish amiodarone drip -continue to hold rate controlling agents in setting of hypotension (holding metoprolol succinate 50mg daily) -consult Cardiology, appreciate recs -continue to monitor electolytes keeping potassium >4.0 and Mg >2.0 -optimize GDMT if tolerable #Normocytic anemia Hb on admission was 11.0. It was been slowly downtrending to lowest 6.8. She was given prbc with improvement seen. Total of 2 units have been transfused since admission. (Fe 36); differential diagnosis slightly from possible causes include CKD or chronic infection -FOBT negative -daily CBC -transfuse rbc unit if Hb <7 - Can consider Epogen with dialysis on next session on Friday either in hospital or outpatient #Sepsis 2/2 E coli UTI (resolved) #Hypotension Patient has completed full course of antibiotics for treatment of UTI with Zosyn. No longer experiencing any urinary symptoms. -AM cortisol levels pending -Midodrine 10mg TID #Leukocytosis Leukocytosis today on labs at 14. Possibly reactive, less concerned for infection as she has completed full course of IV Zosyn during this admission for E coli UTI. -daily CBC to monitor #Nephrolithiasis Found to have left sided staghorn calculi measuring ~19mm. Nonobstructive. Urology Dr. Lawton was consulted who stated that she is not a surgical candidate for any intervention. At a future time may consider laser stone fragmentation or lithotripsy. -Continue conservative management -follow up outpatient #Hypothyroidism TSH 2.39, free T4 1.6 -continue levothyroxine 50mcg #CVA No new findings of stroke on head imaging. Patient takes atorvastatin 20 mg daily outpatient and was on Xarelto. -hold atrovastatin until further improvement in LFTS -resume Apixaban 5mg BID vs Xarelto due to nephrotoxicity. #Mood disorder -continue Divalproex 250mg BID Health Maintenance: DVT prophylaxis: Apixaban 5 mg twice daily Diet: Cardiac Turner: No Lines: PIV, right IJ tunneled dialysis catheter CODE STATUS: Full code Disposition: Patient is currently [facility] waiting for outpatient chair time to be discharged within 24-48 hours. Patient's plan and care discussed with my attending, Dr. Kadeem Lees PGY2 Attending Provider Attestation/Addendum I have examined the patient, reviewed labs and imaging findings, discussed the case with the resident(s), and reviewed entered orders. I agree with the plan of care as outlined in this note, with these additional summaries/recommendations: Patient seen at bedside. Overnight patient went into atrial fibrillation with rapid ventricular response. Patient was started on amiodarone gtt. with improvement of heart rate this now trending in the 110s. We will continue metoprolol and consult cardiologyfollowing. Continue Eliquis for elevated CHADSvasc. Patient also endorsed anxiety overnight and was given hydroxyzine, Benadryl, Seroquel, and Ativan. Patient appears somnolent today. We will attempt to avoid sedating medications for now and home hydroxyzine and Depakote resumed. Patient is s/p right IJ permanent tunneled dialysis catheter. Case management working on arranging outpatient chair time & placement. In house nephrology following for acute renal failure. Patient was seen by urology for bilateral staghorn calculi and not a surgical candidate at this time and will need to follow-up at a later date. Patient is s/p Zosyn for urinary tract infection. Patient was found to have symptomatic anemia on admission with hemoglobin 6.8. Patient received blood transfusion on 05/03/2025. Hemoglobin originally improved to 9.6 but has been downtrending daily. Patient received an additional unit of PRBCs on 05/06/25. FOBT negative. Most likely symptomatic anemia due to renal failure. Patient receiving epogen and hemoglobin improving. Given that FOBT was negative, anticoagulation was resumed. Patient has HFrEF with ejection fraction of 15 to 20%. We will continue to optimize goal-directed medical therapy as tolerated although unsuccessful to date given hypotension. Continue midodrine for hypotension. Shock resolved. Continue levothyroxine for hypothyroidism. Patient updated on the plan and in agreement. All questions answered to satisfaction. Please see residents note for additional details and management. Dr. Kadeem MD
--- NOTE | 2025-05-09 14:36 | ESPR_ITS ---
RE: RUÉBN VIVAR : 1960 DATE OF SERVICE: 05/09/2025 HISTORY OF PRESENT ILLNESS: Briefly, she is a 64-year-old woman with history of CVA, atrial fibrillation, heart failure, ejection fraction of 25% to 30% on 2D echocardiogram done last week with severe global hypokinesis and dilated cardiomyopathy, hypothyroidism, a resident of [facility], who presented to the emergency room on 04/30/2025 with abdominal pain for 2 days prior to admission and was found with a potassium of 9.5 and a CO2 of less than 10. The patient was immediately transferred to ICU and was emergently dialyzed. The patient remains oliguric requiring permanent dialysis catheter placement. While in ICU, she was very volume overloaded and had PIRRT for at least 5 days for fluid removal and solute clearance. Her blood pressures improved and all her vasopressors were discontinued. She was transferred to Telemetry on 05/07/2025. She also had hemodialysis last Friday. The patient's blood pressure dropped during dialysis; however, it was able to sustain and complete the whole dialysis treatment. The patient is currently at telemetry and has no complaints; however, bedside RN told me that she has been asking for medication for pain and anxiety all night long. The patient also has a history of left staghorn calculi and possibly urinary tract infections. Her urine culture grew ESBL UTI. The patient received IV Zosyn since admission. CURRENT MEDICATIONS: 1. Acetaminophen. 2. Albumin. 3. Amiodarone 150 mg IV. 4. Apixaban 5 mg p.o. b.i.d. 5. Atorvastatin 20 mg at bedtime. 6. Diphenhydramine. 7. Divalproex ER 250 mg p.o. b.i.d. 8. Epogen 10,000 units two times weekly. 9. Hydrocodone. 10. Hydroxyzine. 11. Lorazepam. 12. Levothyroxine 50 mcg daily. 13. Melatonin 3 mg p.o. at bedtime p.r.n. 14. Midodrine 10 mg p.o. t.i.d. 15. Quetiapine 25 mg p.o. x1. 16. Ropinirole 1 mg p.o. daily. PHYSICAL EXAMINATION: General: She is awake, alert. Vital Signs: Blood pressure of 109/89, heart rate of 123. HEENT: Anicteric sclerae, normocephalic. Neck: Supple. No JVD. Chest and Lungs: Symmetrical expansion. Lungs: Decreased breath sounds bilaterally. Heart: Without murmur. Abdomen: Soft and nontender. Extremities: Bilateral pitting edema in lower extremities about 2+. Upper extremity edema has improved. LABORATORY DATA: Hemoglobin 9.7, WBC 14,000, platelet count 238,000. Sodium 140, potassium 4.2, chloride 101, CO2 of 20.7, BUN 18, creatinine 3.2, glucose 192. ASSESSMENT: 1. Oliguric acute kidney injury secondary to acute tubular necrosis following hemodynamic instability and hypertension resulting in hyperperfusion and acute tubular necrosis. 2. Hyperkalemia. 3. Lactic acidosis is now resolved. 4. Staghorn calculi in the left kidney, not a candidate for any procedure. 5. Dilated cardiomyopathy with EF of 25% to 30% with severe global hypokinesis. 6. Volume overloaded secondary to cardiogenic shock and decompensated congestive heart failure. PLAN: The patient will be dialyzed again tomorrow. We will continue supportive treatment. We will continue amiodarone drip. We are still also waiting for a chair time for her at the [facility] [place]. DT: 14:04:36 TT: 14:35:00 Ref: [id number] - TID: [id number]
[2025-05-09] MEDS: ATORVASTATIN CALCIUM 20 MG TABLET PO (20:50)
[2025-05-10] VITALS (27 sets, daily range): BP systolic 101–168; BP diastolic 34–115; PULSE 42–122; RESP 12–23; TEMP 35.9–36.6; O2SAT 99–100; BMI 33.0
[2025-05-10] MEDS: LEVOTHYROXINE SODIUM 25 MCG TABLET 50 MCG PO (05:25)
[2025-05-10 05:59] LABS: Basophils # (Auto) 0.0 Thou/mm3 (0.0-0.2); Basophils % (Auto) 0 % (0-2.5); Eosinophils # (Auto) 0.0 Thou/mm3 (0.0-0.5); Eosinophils % (Auto) 0 % (0-10); Hematocrit 31.4 % (36.0-46.0); Hemoglobin 10.2 g/dL (12.0-16.0); Immature Granulocytes Auto 0.10 Thou/mm3 (0.00-0.00); Lymphocytes # (Auto) 2.8 Thou/mm3 (1.0-4.8); Lymphocytes % (Auto) 25 % (10-50); Mean Corpuscular HGB Conc 32.5 g/dl (31.0-37.0); Mean Corpuscular Hemoglobin 32.1 pg (25.0-35.0); Mean Corpuscular Volume 99 fL (80-100); Monocytes # (Auto) 1.7 Thou/mm3 (0.0-0.8); Monocytes % (Auto) 15 % (0-12); Neutrophils # (Auto) 6.6 Thou/mm3 (1.8-7.7); Neutrophils % (Auto) 59 % (37-80); Nucleated Red Blood Cell # 0.08 Thou/mm3 (0.00-0.00); Nucleated Red Blood Cell % 1 /100 WBC (0); Platelet Count 171 Thou/mm3 (140-440); RDW Standard Deviation 61.2 fL (36.4-46.3); Red Blood Count 3.18 Miln/mm3 (4.00-5.20); White Blood Count 11.2 Thou/mm3 (3.6-11.0)
[2025-05-10 06:40] LABS: Alanine Aminotransferase 39 U/L (10-49); Albumin, Serum 3.4 gm/dL (3.4-4.8); Albumin/Globulin Ratio 1.5 (1.2-2.2); Alkaline Phosphatase 77 U/L (46-116); Anion Gap 16 (7-16); Aspartate Amino Transferase 46 U/L (0-34); BUN/Creatinine Ratio 7 Ratio (12-20); Bilirubin,Total 0.5 mg/dL (0.3-1.2); Blood Urea Nitrogen 26 mg/dL (9-23); Calcium 8.8 mg/dL (8.3-10.6); Calcium (Corrected) 9.3 mg/dL (8.5-10.1); Carbon Dioxide 21.9 mMol/L (20.0-31.0); Chloride 103 mMol/L (98-107); Creatinine (Component) 3.8 mg/dL (0.6-1.3); Estimated Creatinine Clearance 21.1 mL/min (>60); Globulin 2.3 gm/dL (2.3-3.5); Glucose 123 mg/dL (74-106); Osmolality,Calculated 286 (275-295); Potassium 4.4 mMol/L (3.4-5.1); Sodium 141 mMol/L (136-145); Total Protein 5.7 gm/dL (5.7-8.2); eGFR 13 See Note
[2025-05-10] MEDS: DIVALPROEX SOD ER 250 MG TABER (NON-FORMULARY) PO ×2 (08:18→20:32)
[2025-05-10] MEDS: APIXABAN 2.5 MG TABLET 5 MG PO ×2 (08:18→20:32)
[2025-05-10] MEDS: MIDODRINE 5 MG TABLET 10 MG PO ×2 (09:01→21:48)
--- NOTE | 2025-05-10 09:52 | PC.SS ---
Addendum entered by Kacey Stevenson 05/10/25 10:54: SS follow up note; ETA was switched to 1530. SS updated nurse, Paulina. Addendum entered by Kacey Stevenson 05/10/25 10:54: SS follow up note; SS contacted patient's brother, Ben to update him on ETA. Addendum entered by Kacey Stevenson 05/10/25 10:30: SS follow up note; SS was informed from Lana from [facility] if SS could set up transportation for Dialysis for patient on May 12 at 10:50AM-3:45PM. #[id number]. SS was contacted by [facility] and provided ETA for 1300. SS contacted patient's nurse Paulina. SS updated Lana from [facility] and provided Auth Number for Dialysis [employer]. SS will update patient. Original Note: SS contacted Kaitlin from [facility]ialysis to check chair time status. Kaitlin provided chair time for , , Saturdays at 11:30 AM. SS also set up transportation or patient to discharge back to [facility] with [employer] transportation, reference # [id number].
--- NOTE | 2025-05-10 10:04 | EKG_ITS ---
[facility] Test Date: 2025-05-10 Pat Name: RUBÉN VIVAR Department: Room: S262A Gender: Female [employer]: TIMO : 1960 Requested By: Alina Lees Order Number: [id number] Reading MD: Alina Lees Measurements Intervals [place] Rate: 105 P: [place]: QRS: -20 QRSD: 146 T: 103 QT: 373 QTc: 494 Interpretive Statements ATRIAL FIBRILLATION WITH RAPID VENTRICULAR RESPONSE INTRAVENTRICULAR CONDUCTION DELAY Compared to ECG 05/08/2025 22:53:06 No significant changes /store/S0/[id number]
--- NOTE | 2025-05-10 10:15 | PD.RESCONSUL ---
HPI Data of Consult Requesting Physician: Dru Quan MD Admitting Provider: Abdoulaye Ba MD Attending Provider: Dru Quan MD Primary Care Provider: Saida Mejía MD Consult Narrative Reason for consult: Afib RVR History of present illness: Hollie Whaley 64F with pmhx significant for CVA with residual L sided deficits, atrial fibrillation on Xarelto, HFrEF (15-20% 04/2025), [id number], hypothyroidism who presented to [facility] ED on 04/20 for abdominal pain, nausea/vomiting and admitted initially to ICU on 04/30/2025 for septic shock 2/2 E. coli UTI, found to be severely hyperkalemic, lactic acidosis and oliguric ARIANA 2/2 ATN now on HD. Course complicated by worsening HFrEF (15-20% from 25-30% in 2022) and atrial fibrillation RVR. Patient is a very poor historian and most history was gathered via chart review. Patient reports abdominal pain with associated nausea and vomiting for 2 days prior to admission. Reports she has bed bound due to left-sided deficits and was feeling unwell, and unable to elaborate anymore due to extreme anxiety at the time of interview. Patient is not unsure what medication she takes at home nor if she sees a [employer] worker. Expresses multiple times that she just wants to go home and to her . Previously had palpitations but has not had them for the past few years. Patient feels short of breath and tachypneic due to anxiety however saturating 100% on 1L NC. Patient denies current chest pain, chest pressure, lightheadedness, dizziness or nausea/vomiting. Patient was initially admitted to the ICU from the ED secondary to septic shock in the setting of E. coli UTI and found to be severely hyperkalemic, lactic acidosis and oliguric ARIANA on CKD stage IIIa secondary to ATN requiring urgent hemodialysis. Patient required pressors, received Zosyn and right IJ TDC was placed hemodialysis initiated for worsening kidney functions and metabolic derangements. Patient was then downgraded to the floors on 05/06 for further management. Patient was then stabilized and medically cleared to be discharged however was waiting for hemodialysis chair. However on night of 05/08, rapid response was called and patient went back into RVR likely due to anxiety. Since then patient has remained in A-fib RVR rate 100-130s and patient continues to be very anxious despite multiple anxiolytic medications. PMHx: As above Surgical Hx: None per patient FHx: Denies familial cardiac history, poor historian Social Hx: Former smoker Denies alcohol or recreational/illict drug use, lives at nursing facility with Allergies: cephalexin anaphylaxis, TMP-SMX anaphylaxis Medications: med rec In ED, BP 157/117, HR 74, temp 100.4, RR 19, saturating 99% 4L. Significant include potassium 9.5, bicarb less than 10, anion gap 18, creatinine 6.2, lactic acid 11.6, corrected calcium 10.2, BNP 2426, Pro-Matias 0.19. VBG pH 6.89. Coagulation studies showed PT 14.6, INR 1.4. CBC showed WBC 12.1, hemoglobin 11, MCV 100.6. EKG showed atrial fibrillation with RVR and wide-complex tachycardia. Course complicated by worsening HFrEF (15-20% from 25-30% in 2022) and atrial fibrillation RVR, for which cardiology was consulted. cc:: cc: Dru Quan MD Review of Systems Review of Systems Systems Reviewed: All systems reviewed, normal except as documented Exam Vital Signs Temp Pulse Resp BP Pulse Ox O2 Del Method O2 Flow Rate 97.8 F 75 18 136/86 H 99 Nasal Cannula 1 05/10/25 09:07 05/10/25 10:00 05/10/25 09:07 05/10/25 10:00 05/10/25 09:07 05/10/25 08:00 05/10/25 09:07 FiO2 96 05/10/25 04:00 Narrative Exam GENERAL: AOx3, extremely anxious, afraid and nervous, appears older than stated age HEENT: NC/AT, mucous membranes moist, bilateral sclera anicteric CARDIOVASCULAR: irregular rhythm, tachycardic, no murmurs able to be appreciated, R IJ TDC in place PULMONARY: distant breath sounds bilaterally, poor inspiratory effort, no rales/rhonchi/wheezes ABDOMINAL: soft, non-tender, non-distended, no rebound/guarding, bowel sounds present EXTREMITIES: 2+ pitting edema of BLE, L heel wound, contracture of L hand, 0/5 strength in LUE and LLE, 4/5 strength RUE and RLE SKIN: LLE wound NEURO: alert, following commands Results Labs 05/10/25 05:24 05/10/25 05:24 Labs: Short CBC 05/10/25 Range/Units 05:24 WBC 11.2 H (3.6-11.0) Thou/mm3 Hgb 10.2 L (12.0-16.0) g/dL Hct 31.4 L (36.0-46.0) % Plt Count 171 D (140-440) Thou/mm3 BMP 05/10/25 05:24 Sodium 141 Potassium 4.4 Chloride 103 Carbon Dioxide 21.9 BUN 26 H Creatinine 3.8 H D Glucose 123 H D Calcium 8.8 Liver Function 05/10/25 Range/Units 05:24 Total Bilirubin 0.5 (0.3-1.2) mg/dL AST 46 H (0-34) U/L ALT 39 (10-49) U/L Alkaline Phosphatase 77 (46-116) U/L Albumin 3.4 (3.4-4.8) gm/dL ABG Interpretation ABG results: 04/30/25 04/30/25 05/01/25 16:32 22:23 07:41 ABG pH 7.50 H 7.51 H ABG pCO2 23 L 28 L ABG pO2 140 H 91 D ABG HCO3 18 L 22 ABG O2 Saturation 100 H 99 H ABG Base Excess -4 L -1 VBG pH 6.89 L VBG pCO2 25 L VBG pO2 56 VBG Base Excess -27 L 05/03/25 09:47 ABG pH ABG pCO2 ABG pO2 ABG HCO3 ABG O2 Saturation ABG Base Excess VBG pH 7.48 VBG pCO2 35 L D VBG pO2 32 D VBG Base Excess 2 Quality Measures Quality Measures none Medications Home Medications and Allergies Home Medications ?Medication ?Instructions ?Recorded ?Confirmed ?Type levothyroxine 50 mcg tablet 50 mcg PO QDAY #0 tabs 09/10/15 05/01/25 History magnesium hydroxide 400 mg/5 mL 30 ml PO Q72H PRN CONSTIPATION #0 09/11/15 05/01/25 History oral suspension (Milk of Magnesia) mL multivitamin with minerals 1 tab PO QDAY ##0 09/11/15 05/01/25 History ascorbic acid (vitamin C) 500 mg 500 mg PO BID 03/12/19 05/01/25 History tablet atorvastatin 20 mg/5 mL (4 mg/mL) 20 mg PO QDAY 05/01/25 05/01/25 History oral suspension (AtorvaliQ) brimonidine 0.2 % eye drops 1 drp ophthalmic (eye) HS 05/01/25 05/01/25 History diphenhydramine HCl 25 mg capsule 25 mg PO Q8H PRN allergy symptoms 05/01/25 05/01/25 History (Allergy (diphenhydramine)) divalproex 250 mg tablet,extended 250 mg PO BID 05/01/25 05/01/25 History release 24 hr (Depakote ER) hydrocodone 10 mg-acetaminophen 1 tab PO Q8H 05/01/25 05/01/25 History 325 mg tablet hydroxyzine HCl 25 mg tablet 25 mg PO BID 05/01/25 05/01/25 History lasix 40 mg PO DAILY 05/01/25 05/01/25 History loperamide 2 mg tablet 4 mg PO Q6H PRN loose stool 05/01/25 05/01/25 History loratadine 10 mg tablet 10 mg PO Q24H 05/01/25 05/01/25 History melatonin 3 mg capsule 3 mg PO HS PRN sleep 05/01/25 05/01/25 History metoprolol succinate 50 mg 50 mg PO QDAY 05/01/25 05/01/25 History tablet,extended release 24 hr ondansetron HCl 4 mg tablet 4 mg PO Q6H 05/01/25 05/01/25 History polyethylene glycol 3350 17 gram 17 g PO QDAY 05/01/25 05/01/25 History oral powder packet potassium chloride 10 mEq 10 meq PO BID 05/01/25 05/01/25 History tablet,extended release psyllium husk 0.52 gram capsule 0.52 g PO BID 05/01/25 05/01/25 History (Fiber Laxative (psyllium husk)) ropinirole 1 mg tablet 1 mg PO QDAY 05/01/25 05/01/25 History sennosides 8.6 mg-docusate sodium 2 tab-cap PO BID 05/01/25 05/01/25 History 50 mg tablet (Senna-S) sodium phosphates 19 gram-7 118 ml WA QDAY PRN constipation 05/01/25 05/01/25 History gram/118 mL enema (Enema) Allergies Allergy/AdvReac Type Severity Reaction Status Date / Time Cephalexin Monohydrate Allergy Severe Anaphylaxis Verified 05/05/25 09:48 sulfamethoxazole Allergy Severe Anaphylaxis Verified 05/05/25 09:48 trimethoprim Allergy Severe Anaphylaxis Verified 05/05/25 09:48 Visit Medications Acetaminophen (Acetaminophen 325 Mg Tablet) 650 mg PO Q4HR PRN PRN Reason: PAIN SCALE 1-3 (mild Stop: 05/30/25 16:48 Last Admin: 05/07/25 20:15 Dose: 650 mg Hydrocodone Bitart/Acetaminophen (Hydrocodone/Apap 10/325 Tab) 1 tab PO Q8H PRN PRN Reason: pain 7-10 Stop: 05/14/25 10:44 Apixaban (Apixaban 2.5 Mg Tablet) 5 mg PO BID RIANNA Stop: 06/05/25 10:59 Last Admin: 05/10/25 08:18 Dose: 5 mg Atorvastatin Calcium (Atorvastatin Calcium 20 Mg Tablet) 20 mg PO HS RIANNA Stop: 06/07/25 20:59 Last Admin: 05/09/25 20:50 Dose: 20 mg Dextrose (Dextrose 50%-Water Inj 50 Ml Syringe) 25 ml IV Q15MIN PRN PRN Reason: BG 50-70 responsive npo pt Stop: 05/30/25 16:57 Dextrose (Dextrose 50%-Water Inj 50 Ml Syringe) 50 ml IV Q15MIN PRN PRN Reason: BG <50 OR BG <70 & pt unresponsive Stop: 05/30/25 16:57 Divalproex Sodium (Divalproex Sod Er 250 Mg Tashia (Non-Formulary)) 250 mg PO BID RIANNA Stop: 06/08/25 10:59 Last Admin: 05/09/25 20:54 Dose: 250 mg Epoetin Jemal (Epoetin Jemal-Epbx Inj 10,000 Unit/Ml Vial (Non-Esrd)) 10,000 unit SC 2 X WEEKLY RIANNA Stop: 06/08/25 08:59 Last Admin: 05/09/25 09:20 Dose: 10,000 unit Glucagon (Glucagon Inj 1 Mg Vial) 1 mg IM Q15MIN PRN PRN Reason: BG <70, and no IV access Heparin Sodium (Porcine) (Heparin Sod Inj 1000 Unit/Ml Vial 10 Ml) 3,000 unit INDWELLCAT X1 PRN PRN Reason: DIALYSIS Stop: 05/14/25 22:12 Last Admin: 05/07/25 17:20 Dose: 3,000 unit Hydroxyzine HCl (Hydroxyzine Hcl 25 Mg Tablet) 25 mg PO BID RIANNA On Hold: 05/10/25 09:51 Stop: 06/08/25 10:44 Last Admin: 05/10/25 08:18 Dose: 25 mg Albumin Human (Albuminar-25 Ivpb) 25 gm in 100 mls @ 100 mls/min IV PRN PRN PRN Reason: DIALYSIS Last Admin: 05/07/25 15:30 Dose: 100 mls/min Levothyroxine Sodium (Levothyroxine Sodium 25 Mcg Tablet) 50 mcg PO ACBR RIANNA Stop: 06/01/25 05:59 Last Admin: 05/10/25 05:25 Dose: 50 mcg Melatonin (Melatonin 3 Mg Tablet) 3 mg PO HS PRN PRN Reason: sleep Midodrine (Midodrine 5 Mg Tablet) 10 mg PO TID RIANNA Stop: 06/03/25 10:59 Last Admin: 05/10/25 05:26 Dose: Not Given Ropinirole HCl (Ropinirole Hcl 1 Mg Tablet) 1 mg PO QDAY RIANNA Stop: 06/08/25 10:59 Last Admin: 05/10/25 08:18 Dose: 1 mg Discontinued Medications Hydrocodone Bitart/Acetaminophen (Hydrocodone/Apap 5/325 Tablet) 1 tab PO X1 ONE Stop: 05/05/25 20:57 Last Admin: 05/05/25 21:18 Dose: 1 tab Hydrocodone Bitart/Acetaminophen (Hydrocodone/Apap 5/325 Tablet) 1 tab PO X1 ONE Stop: 05/06/25 02:57 Last Admin: 05/06/25 03:11 Dose: 1 tab Hydrocodone Bitart/Acetaminophen (Hydrocodone/Apap 10/325 Tab) 1 tab PO X1 ONE Stop: 05/07/25 22:25 Last Admin: 05/07/25 23:12 Dose: 1 tab Hydrocodone Bitart/Acetaminophen (Hydrocodone/Apap 5/325 Tablet) 1 tab PO X1 ONE Stop: 05/08/25 13:07 Last Admin: 05/08/25 13:14 Dose: 1 tab Albuterol (Albuterol Rt 2.5 Mg/3 Ml Nebu) 5 mg INH X1 ONE Stop: 04/30/25 15:55 Last Admin: 04/30/25 16:31 Dose: 5 mg Albuterol (Albuterol Rt 2.5 Mg/0.5 Ml Nebu) 5 mg INH X1 ONE Stop: 04/30/25 17:18 Last Admin: 04/30/25 19:45 Dose: 5 mg Calcium Carbonate (Calcium Carbonate 600 Mg Tablet) 600 mg PO X1 ONE Stop: 05/03/25 07:51 Last Admin: 05/03/25 09:08 Dose: 600 mg Calcium Carbonate (Calcium Carbonate 600 Mg Tablet) 600 mg PO X1 ONE Stop: 05/03/25 07:51 Last Admin: 05/03/25 09:09 Dose: 600 mg Calcium Chloride (Calcium Chloride 10% Inj 10 Ml Syrg) 10 ml IV X1 ONE Stop: 04/30/25 16:22 Last Admin: 04/30/25 16:20 Dose: 10 ml Dapagliflozin (Dapagliflozin Propanediol 5 Mg Tablet) 10 mg PO QAM RIANNA Stop: 06/07/25 10:44 Last Admin: 05/09/25 09:20 Dose: 10 mg Dextrose (Dextrose 50%-Water Inj 50 Ml Syringe) 50 ml IVP X1 ONE Stop: 04/30/25 16:12 Last Admin: 04/30/25 16:24 Dose: Not Given Dextrose (Dextrose 50%-Water Inj 50 Ml Syringe) 50 ml IV X1 ONE Stop: 04/30/25 17:16 Last Admin: 04/30/25 17:20 Dose: 50 ml Diphenhydramine HCl (Diphenhydramine Elix 25 Mg/10 Ml Udc) 12.5 mg PO X1 ONE Stop: 05/09/25 01:30 Last Admin: 05/09/25 01:42 Dose: 12.5 mg Fentanyl Citrate (Fentanyl Cit Inj 50 Mcg/Ml Amp 2ml) 100 mcg IVP X1 ONE Stop: 05/05/25 14:44 Last Admin: 05/05/25 14:43 Dose: 100 mcg Furosemide (Furosemide Inj 10 Mg/Ml Vial 2 Ml) 20 mg IVP X1 ONE Stop: 05/02/25 17:11 Last Admin: 05/02/25 19:06 Dose: Not Given Furosemide (Furosemide Inj 10 Mg/Ml Vial 2 Ml) 20 mg IVP X1 ONE Stop: 05/03/25 07:28 Last Admin: 05/03/25 09:03 Dose: 20 mg Heparin Sodium (Beef Lung) (Heparin Sod Lock Syr 100 Unit/Ml) 500 unit STFIELD X1 ONE Stop: 05/05/25 14:44 Last Admin: 05/05/25 14:44 Dose: 500 unit Heparin Sodium (Porcine) (Heparin Sod Inj 5000 Unit/Ml Vial) 5,000 unit SC Q8HR RIANNA Stop: 05/14/25 21:59 Last Admin: 05/02/25 05:47 Dose: 5,000 unit Heparin Sodium (Porcine) (Heparin Sod Inj 5000 Unit/Ml Vial) 2,000 unit IV X1 ONE; Protocol Stop: 05/02/25 12:16 Last Admin: 05/02/25 12:45 Dose: 2,000 unit Heparin Sodium (Porcine) (Heparin Sod Inj 5000 Unit/Ml Vial) 2,000 unit IVP X1 ONE Stop: 05/03/25 02:46 Last Admin: 05/03/25 02:50 Dose: 2,000 unit Heparin Sodium (Porcine) (Heparin Sod Inj 5000 Unit/Ml Vial) 2,000 unit IVP X1 ONE Stop: 05/03/25 07:19 Last Admin: 05/03/25 07:28 Dose: 2,000 unit Heparin Sodium (Porcine) (Heparin Sod Inj 5000 Unit/Ml Vial) 4,000 unit IVP X1 ONE Stop: 05/03/25 14:00 Last Admin: 05/03/25 14:08 Dose: 4,000 unit Heparin Sodium (Porcine) (Heparin Sod Inj 1000 Unit/Ml Vial) 3,300 unit INDWELLCAT X1 ONE Stop: 05/05/25 14:56 Last Admin: 05/05/25 15:00 Dose: 3,300 unit Hydroxyzine HCl (Hydroxyzine Hcl 25 Mg Tablet) 12.5 mg PO X1 ONE Stop: 05/08/25 21:12 Last Admin: 05/08/25 21:29 Dose: 12.5 mg Hydroxyzine HCl (Hydroxyzine Hcl 25 Mg Tablet) 25 mg PO X1 ONE Stop: 05/10/25 09:52 Last Admin: 05/10/25 10:06 Dose: 25 mg Sodium Chloride (Ns) 1,000 mls @ 100 mls/hr IV .Q10H ONE Stop: 04/30/25 23:48 Last Admin: 04/30/25 14:17 Dose: 100 mls/hr Calcium Gluconate/Sodium Chloride (Calcium Gluc/Ns 1000mg Ivpb) 1,000 mg in 50 mls @ 50 mls/hr IV X1 ONE Stop: 04/30/25 17:17 Last Admin: 04/30/25 17:07 Dose: Not Given Sodium Bicarbonate 88.23 meq/ (Dextrose) 588.23 mls @ 100 mls/hr IV .Q5H53M [facility] Stop: 05/31/25 10:38 Sodium Bicarbonate 88.23 meq/ (Dextrose) 588.23 mls @ 100 mls/hr IV .Q5H53M RIANNA Stop: 05/01/25 10:38 Last Admin: 05/01/25 07:17 Dose: 100 mls/hr Dextrose (D10w 1000 Ml) 1,000 mls @ 100 mls/hr IV .Q10H [facility] Stop: 05/01/25 02:59 Last Admin: 04/30/25 22:13 Dose: Not Given Lactated Ringer's (Lactated Ringers) 500 mls @ 999 mls/hr IV .Q31M ONE Stop: 04/30/25 19:11 Last Admin: 04/30/25 20:21 Dose: Not Given Ceftriaxone Sodium/Dextrose (Rocephin/D5w 1gm Iv Premix) 1 gm in 50 mls @ 100 mls/hr IV QDAY [facility] Stop: 05/07/25 18:41 Last Admin: 04/30/25 22:13 Dose: Not Given Ceftriaxone Sodium/Dextrose (Rocephin/D5w 1gm Iv Premix) 1 gm in 50 mls @ 100 mls/hr IV QDAY [facility] Stop: 05/07/25 20:09 Albumin Human (Albuminar-25 Ivpb) 25 gm in 100 mls @ 100 mls/hr IV PRN PRN PRN Reason: DIALYSIS Last Admin: 05/07/25 13:52 Dose: 100 mls/hr Ceftriaxone Sodium/Dextrose (Rocephin/D5w 1gm Iv Premix) 1 gm in 50 mls @ 100 mls/hr IV QDAY [facility] Stop: 05/07/25 20:39 Last Admin: 04/30/25 22:12 Dose: Not Given Sodium Chloride (Ns) 500 mls @ 500 mls/hr IV .Q1H ONE Stop: 04/30/25 22:01 Last Admin: 04/30/25 21:30 Dose: Not Given Norepinephrine/Dextrose (Levophed In D5w 8mg/250ml) 8 mg in 250 mls @ 8.888 mls/hr IV .Q24H PRN; Protocol PRN Reason: PER PROTOCOL Stop: 05/30/25 21:24 Last Titration: 05/02/25 21:00 Dose: 0.07 mcg/kg/min, 12.443 mls/hr Piperacillin/Tazobactam/Dextrose (Zosyn) 50 mls @ 100 mls/hr IV Q8HR RIANNA Stop: 05/08/25 00:22 Lactated Ringer's (Lactated Ringers) 500 mls @ 250 mls/hr IV .Q2H ONE Stop: 05/01/25 02:24 Last Admin: 05/01/25 01:05 Dose: 250 mls/hr Piperacillin/Tazobactam/Dextrose (Zosyn) 3.375 gm in 50 mls @ 100 mls/hr IV Q12HR RIANNA Stop: 05/08/25 00:29 Last Admin: 05/01/25 08:29 Dose: 100 mls/hr Magnesium Sulfate (Magnesium Sulfate Ivpb) 4 gm in 50 mls @ 12.5 mls/hr IV X1 ONE Stop: 05/01/25 12:09 Last Admin: 05/01/25 08:29 Dose: 12.5 mls/hr Piperacillin Sod/Tazobactam (Sod 2.25 gm/ Sodium Chloride) 50 mls @ 100 mls/hr IV Q6HR RIANNA; Protocol Stop: 05/08/25 08:44 Last Admin: 05/01/25 12:54 Dose: 100 mls/hr Sodium Chloride (Ns) 250 mls @ 999 mls/hr IV .Q16M ONE Stop: 05/01/25 10:59 Last Admin: 05/01/25 12:54 Dose: 999 mls/hr Albumin Human (Albuminar-25 Ivpb) 25 gm in 100 mls @ 100 mls/hr IV X1 ONE Stop: 05/01/25 11:44 Last Admin: 05/01/25 12:54 Dose: 100 mls/hr Lactated Ringer's (Lactated Ringers) 500 mls @ 999 mls/hr IV .Q31M ONE Stop: 05/01/25 14:27 Last Admin: 05/01/25 14:08 Dose: 999 mls/hr Piperacillin Sod/Tazobactam (Sod 2.25 gm/ Sodium Chloride) 50 mls @ 100 mls/hr IV Q6HR [facility] Stop: 05/06/25 06:00 Last Admin: 05/06/25 06:33 Dose: 100 mls/hr Lactated Ringer's (Lactated Ringers) 500 mls @ 250 mls/hr IV .Q2H ONE Stop: 05/01/25 23:24 Last Admin: 05/01/25 22:19 Dose: 250 mls/hr Potassium Phosphate (Pot Phos 15 Mmol In Ns 250 Ml) 15 mmol in 250 mls @ 62.5 mls/hr IV Q4H [facility] Stop: 05/02/25 05:34 Last Admin: 05/02/25 01:56 Dose: 62.5 mls/hr Magnesium Sulfate (Magnesium Sulfate Ivpb) 4 gm in 50 mls @ 12.5 mls/hr IV X1 ONE Stop: 05/02/25 01:35 Last Admin: 05/01/25 22:14 Dose: 12.5 mls/hr Doxycycline Hyclate 100 mg/ (Sodium Chloride) 100 mls @ 100 mls/hr IV BID [facility] Stop: 05/08/25 21:59 Last Admin: 05/03/25 11:23 Dose: Not Given Heparin Sodium/Dextrose (Heparin In D5w Ivpb) 25,000 unit in 250 mls @ 10 mls/hr IV .Q24H [facility]; Protocol Stop: 05/16/25 12:14 Last Titration: 05/04/25 07:08 Dose: 0 units/kg/hr, 0 mls/hr Lactated Ringer's (Lactated Ringers) 1,000 mls @ 999 mls/hr IV .Q1H1M ONE Stop: 05/02/25 16:28 Last Admin: 05/02/25 19:29 Dose: Not Given Lactated Ringer's (Lactated Ringers) 500 mls @ 999 mls/hr IV .Q31M ONE Stop: 05/02/25 16:30 Last Admin: 05/02/25 15:23 Dose: 999 mls/hr Norepinephrine/Dextrose (Levophed In D5w 8mg/250ml) 8 mg in 250 mls @ 8.831 mls/hr IV .Q24H PRN; Protocol PRN Reason: PER PROTOCOL Stop: 06/01/25 16:02 Last Titration: 05/04/25 12:56 Dose: 0 mcg/kg/min, 0 mls/hr Magnesium Sulfate (Magnesium Sulfate Ivpb) 4 gm in 50 mls @ 12.5 mls/hr IV X1 ONE Stop: 05/04/25 11:34 Last Infusion: 05/04/25 15:00 Dose: Infused Sodium Phosphate 30 mmol/ (Sodium Chloride) 510 mls @ 62.5 mls/hr IV X1 ONE Stop: 05/04/25 15:44 Last Infusion: 05/04/25 17:55 Dose: Infused Magnesium Sulfate (Magnesium Sulfate Ivpb) 2 gm in 50 mls @ 25 mls/hr IV X1 ONE Stop: 05/05/25 09:46 Last Admin: 05/05/25 09:20 Dose: 25 mls/hr Amiodarone HCl/Dextrose (Nexterone Ivpb) 360 mg in 200 mls @ 16.667 mls/hr IV .Q12H RIANNA Stop: 05/09/25 23:14 Last Admin: 05/09/25 18:26 Dose: 16.667 mls/hr Amiodarone HCl/Dextrose (Nexterone Ivpb) 360 mg in 200 mls @ 33.333 mls/hr IV .Q6H ONE Stop: 05/09/25 05:08 Last Admin: 05/08/25 23:55 Dose: 33.333 mls/hr Amiodarone HCl/Dextrose (Nexterone Ivpb) 150 mg in 100 mls @ 600 mls/hr IV .Q10M ONE Stop: 05/08/25 23:18 Last Admin: 05/08/25 23:39 Dose: 600 mls/hr Insulin Human Regular (Insulin Hum Regular 1 Unit/0.01 Ml (Per Unit)) 5 unit IV X1 ONE Stop: 04/30/25 16:12 Last Admin: 04/30/25 16:28 Dose: 5 unit Insulin Human Regular (Insulin Hum Regular 1 Unit/0.01 Ml (Per Unit)) 10 unit IV X1 ONE Stop: 04/30/25 16:59 Last Admin: 04/30/25 17:20 Dose: 10 unit Lidocaine HCl (Lidocaine Inj Pf 1% 30 Ml Vial) 6 ml INFL X1 ONE Stop: 05/05/25 14:44 Last Admin: 05/05/25 14:44 Dose: 6 ml Lorazepam (Lorazepam 0.5 Mg Tablet) 0.5 mg PO X1 ONE Stop: 05/09/25 03:50 Last Admin: 05/09/25 04:01 Dose: 0.5 mg Lorazepam (Lorazepam 0.5 Mg Tablet) 1 mg PO X1 ONE Stop: 05/09/25 18:42 Last Admin: 05/09/25 20:50 Dose: 1 mg Lorazepam (Lorazepam 0.5 Mg Tablet) 0.5 mg PO X1 ONE Stop: 05/10/25 08:29 Last Admin: 05/10/25 09:02 Dose: 0.5 mg Metoprolol Succinate (Metoprolol Succinate Xl 25 Mg Tabcr) 50 mg PO QDAY RIANNA Stop: 05/31/25 08:59 Last Admin: 05/02/25 08:05 Dose: Not Given Midodrine (Midodrine 5 Mg Tablet) 10 mg PO TID PRN PRN Reason: with dialysis Stop: 06/03/25 13:59 Midodrine (Midodrine 5 Mg Tablet) 10 mg PO TID [facility] Stop: 06/03/25 10:59 Last Admin: 05/06/25 06:32 Dose: 10 mg Midodrine (Midodrine 5 Mg Tablet) 10 mg PO X1 ONE Stop: 05/10/25 08:29 Last Admin: 05/10/25 09:01 Dose: 10 mg Potassium Chloride (Potassium Chloride 10% 20 Meq/15 Ml Udc) 40 meq PO X1 ONE Stop: 05/01/25 21:34 Last Admin: 05/01/25 22:17 Dose: 40 meq Potassium Chloride (Potassium Chloride 20 Meq Tabcr) 40 meq PO X1 ONE Stop: 05/03/25 07:41 Last Admin: 05/03/25 09:07 Dose: 40 meq Potassium Chloride (Potassium Chloride 10% 20 Meq/15 Ml Udc) 40 meq PO X1 ONE Stop: 05/04/25 07:43 Last Admin: 05/04/25 10:42 Dose: Not Given Potassium Chloride (Potassium Chloride 20 Meq Tabcr) 40 meq PO X1 ONE Stop: 05/08/25 08:27 Last Admin: 05/08/25 10:53 Dose: 40 meq Potassium Chloride (Potassium Chloride 20 Meq Tabcr) 20 meq PO X1 ONE Stop: 05/08/25 11:31 Last Admin: 05/10/25 00:05 Dose: Not Given Potassium Phos/Sodium Phos (Naph,[facility] Mbdb 1 Packet (1.5 Gm)) 1 packet PO X1 ONE Stop: 05/03/25 07:41 Last Admin: 05/03/25 09:08 Dose: 1 packet Potassium Phos/Sodium Phos (Naph,[facility] Mbdb 1 Packet (1.5 Gm)) 1 packet PO X1 ONE Stop: 05/04/25 07:35 Last Admin: 05/04/25 08:04 Dose: 1 packet Potassium Phos/Sodium Phos (Naph,[facility] Mbdb 1 Packet (1.5 Gm)) 1 packet PO X1 ONE Stop: 05/05/25 07:46 Last Admin: 05/05/25 09:20 Dose: 1 packet Quetiapine Fumarate (Quetiapine Fumarate 25 Mg Tablet) 25 mg PO X1 ONE Stop: 05/09/25 05:29 Last Admin: 05/09/25 05:34 Dose: 25 mg Sodium Bicarbonate (Sodium Bicarb Inj 8.4% 1 Meq/Ml 50 Ml Vial) 50 meq IV X1 ONE Stop: 04/30/25 15:26 Last Admin: 04/30/25 18:17 Dose: Not Given Sodium Bicarbonate (Sodium Bicarb Inj 8.4% Syr 50 Ml Syringe) 50 ml IV X1 ONE Stop: 04/30/25 17:10 Last Admin: 04/30/25 17:20 Dose: 50 ml Sodium Bicarbonate (Sodium Bicarb Inj 8.4% 1 Meq/Ml 50 Ml Vial) 50 meq IV X1 ONE Stop: 05/01/25 02:41 Last Admin: 05/01/25 02:51 Dose: 50 meq Sodium Polystyrene Sulfonate (Sod Polystyrene Sulfon Susp 15 Gm/60 Ml Btl) 15 gm PO X1 ONE Stop: 04/30/25 15:26 Last Admin: 04/30/25 18:18 Dose: Not Given Sodium Polystyrene Sulfonate (Sod Polystyrene Sulfon Susp 15 Gm/60 Ml Btl) 30 gm PO X1 ONE Stop: 04/30/25 16:59 Last Admin: 04/30/25 22:13 Dose: Not Given Sodium Polystyrene Sulfonate (Sod Polystyrene Sulfon Susp 15 Gm/60 Ml Btl) 30 gm PO X1 ONE Stop: 04/30/25 20:13 Last Admin: 04/30/25 20:43 Dose: Not Given Thiamine HCl (Thiamine Inj 100 Mg/Ml Vial 2 Ml) 200 mg IVP X1 ONE Stop: 05/03/25 08:44 Last Admin: 05/03/25 09:07 Dose: 200 mg Tuberculin PPD (Tuberculin Ppd Inj 5 Unit/0.1 Ml Dose) 5 unit ID X1 ONE Stop: 05/04/25 10:51 Last Admin: 05/04/25 11:09 Dose: 5 unit Assessment & Plan Plan Hollie Whaley [id number] with pmhx significant for CVA, atrial fibrillation on Xarelto, HFrEF (15-20% 04/2025), [id number], hypothyroidism who presented to [facility] ED on 04/20 for abdominal pain, nausea/vomiting and admitted initially to ICU on 04/30/2025 for septic shock 2/2 E. coli UTI, found to be severely hyperkalemic, lactic acidosis and oliguric ARIANA 2/2 ATN. Course complicated by worsening HFrEF (15-20% from 25-30% in 2022) and atrial fibrillation RVR, for which cardiology was consulted. #Atrial fibrillation RVR #Hx of atrial fibrillation Patient has a history of A-fib on Xarelto at home and takes metoprolol XL 50 mg QD for rate control. Denies palpitations for the last few years and is unsure if she is persistently in A-fib. Patient is poor historian and is unaware of what medications she is taking nor if she sees a [employer] worker. Atrial fibrillation RVR likely secondary to septic shock which resolved however blood pressure did not tolerate and patient was attempted to be transition to metoprolol. However on 05/08, patient was noted to have A-fib RVR during a rapid response called for anxiety, amiodarone drip was started on 05/08 patient remains in A-fib RVR following AM completion on 05/09. Likely secondary to anxiety as on examination, patient extremely anxious and tachypneic with telemetry box showing A-fib RVR with a rate of 120-130s however during interview anxiety subsides and heart rate decreases to 100-110. On telemetry review, lowest heart rate is low 60s over the past 24 hours however 50s and one reading of 42 are being charted from Rt brachial and dorsalis pedis pulses. Ddx includes sick sinus syndrome as patient has severe heart failure and likely persistent atrial fibrillation. CHADSVASC score 4, 4.8% stroke risk per year HASBLED 3 Plan: - Recommend to start PO amiodarone 200 mg BID for atrial fibrillation and to decrease arrhythmia risk as pt does have dilated cardiomyopathy - Recommend holding metoprolol - hx of hypotension in ICU on metoprolol and low HR - Continue anticoagulation of Eliquis 5 mg BID - Telemetry for cardiac monitoring - Keep K>4 and Mg>2 #HFrEF (15-20% 04/2025) #Dilated cardiomyopathy Patient has a history of HFrEF. Only GDMT at home is metoprolol XL 50 mg QD. Admission BNP 6 with shortness of breath and BLE swelling L>R. Unknown cause of HFrEF as well as dilated cardiomyopathy. Denies previous heart attacks, prior drug use and does not know if she has ever had a cardiac catheterization done. 2022 Echocardiogram shows dilated cardiomyopathy, severe global hypokinesis with estimated EF 25 to 30%, normal RV size, LA mildly dilated, mild MR. 04/2025 Echocardiogram shows dilated cardiomyopathy, moderately dilated LV, severe global hypokinesis and severe systolic dysfunction estimated EF 15 to 20%. Normal RV size, reduced systolic function. RA estimated RVSP 45 mmHg, moderate pulmonary hypertension, moderate MR and mild TR, trace to mild AI, LA severely dilated, RA severely dilated, mildly dilated ascending body measuring 3.9 cm Patient's HFrEF worsening likely secondary to recent septic shock as well as lack of GDMT outpatient. Plan: - Plan to initiate GDMT once blood pressure tolerates however avoid SGLT2 inhibitors due to current dialysis status - Strict I&O and daily weights - Continue to follow up outpatient for further management - Will likely need defibrilator due severe HFrEF if pt does not respond to maximum GDMT for more 3 months - Will need cardiac catheterization to rule out CAD as a cause of dilated cardiomyopathy if not performed before as outpatient and frecommended to follow up with her [employer] [facility] as outpatient #Normocytic anemia #Sepsis 2/2 E coli UTI (resolved) #Hypotension #Leukocytosis #Nephrolithiasis #Hypothyroidism #CVA #Mood disorder Plan: - Above managed by primary team Thank you for your consultation and allowing participation in patient's care. Plan of care discussed with attending Dr. Swapna August, DO PGY-1 Internal Medicine Attending Provider Attestation/Addendum I have personally seen and examined the patient separately on the above date of service and discussed the plan of care with the resident. I reviewed the resident Dr. Donya August consultation progress note and agree with the resident findings and plan in the note above and have also edited the documentation to reflect my findings and plan. Bishnu Barcenas M.D. Interventional Cardiology
[2025-05-10] MEDS: HALOPERIDOL LACT INJ 5 MG/ML VIAL IV (10:47)
[2025-05-10] MEDS: HEPARIN SOD INJ 1000 UNIT/ML VIAL 10 ML 3000 UNIT INDWELLCAT (11:42)
--- NOTE | 2025-05-10 17:40 | PD.RESPRO ---
Documentation for date of: 05/10/25 Subjective Subjective Interval history: Overnight, no acute events reported. Patient seen and examined at bedside. Patient appears to be very anxious and heart rate has been ranging from 60 to as high as 160. When patient is very anxious, heart rate tends to be above 100-150 at rest. Patient blood pressure also was more in the hypertensive range today during dialysis unlike last dialysis session where she was more hypotensive. Patient denies any chest pain or palpitations during these anxious episodes. Patient also had a rapid response that was called around 10 this morning, and was given Haldol 5 mg due to patient's labile heart rate and blood pressure. Reach out to cardiology for further recommendations regarding anticoagulation and rate control. Cardiology at this time recommends to start patient on amiodarone p.o. twice daily. Patient also would benefit from a heart catheterization to determine cause of her heart failure. Will discuss with patient regarding procedure and anticipate discharge within 24 to 48 hours. Patient also got accepted for dialysis chair time, and can be discharged after possible cath procedure. Exam Vital Signs Temp Pulse Resp BP Pulse Ox O2 Del Method O2 Flow Rate 96.8 F 122 H 16 112/87 H 100 Nasal Cannula 1 05/10/25 15:33 05/10/25 15:33 05/10/25 15:33 05/10/25 15:33 05/10/25 15:33 05/10/25 15:33 05/10/25 15:33 FiO2 96 05/10/25 04:00 Narrative Exam General: Alert and oriented x3. Patient in mild distress, appears older than stated age, nervous HEENT: NCAT, No JVD noted. Mucosa dry. Pupils are equal and reactive to light bilaterally Cardiovascular: Irregularly, irregular, tachycardic. Distant heart sounds Respiratory: Lungs are clear to auscultation bilaterally. No wheezing or crackles heard. Abdomen: Soft, nontender, not distended, normal bowel sounds. Skin: Warm to touch, dry, no rashes noted, right IJ cath in place, no bleeding Musculoskeletal: No gross injuries. Unable to move FLAKITO and LLE, contracture left hand, +2 pitting edema Neuro: Alert and oriented x3. No focal neuro deficits. Psych: Normal affect and mood Objective Labs 05/11/25 05:04 05/11/25 05:04 Labs: Laboratory Results - last 24 hr 05/10/25 05:24 WBC 11.2 H RBC 3.18 L Hgb 10.2 L Hct 31.4 L MCV 99 MCH 32.1 MCHC 32.5 RDW Std Deviation 61.2 H Plt Count 171 D Neut % (Auto) 59 Lymph % (Auto) 25 [place] % (Auto) 15 H Eos % (Auto) 0 Baso % (Auto) 0 Neut # (Auto) 6.6 Lymph # (Auto) 2.8 [place] # (Auto) 1.7 H Eos # (Auto) 0.0 Baso # (Auto) 0.0 Immature Gran # (Auto) 0.10 H Absolute Nucleated RBC 0.08 H Immature Gran % 1 H Nucleated RBC % 1 H Sodium 141 Potassium 4.4 Chloride 103 Carbon Dioxide 21.9 Anion Gap 16 BUN 26 H Creatinine 3.8 H D Estim Creat Clear Calc 21.1 L eGFR 13 L* BUN/Creatinine Ratio 7 L Glucose 123 H D Calculated Osmolality 286 Calcium 8.8 Corrected Calcium 9.3 Total Bilirubin 0.5 AST 46 H ALT 39 Alkaline Phosphatase 77 Total Protein 5.7 Albumin 3.4 Globulin 2.3 Albumin/Globulin Ratio 1.5 ABG Interpretation ABG results: 04/30/25 04/30/25 05/01/25 16:32 22:23 07:41 ABG pH 7.50 H 7.51 H ABG pCO2 23 L 28 L ABG pO2 140 H 91 D ABG HCO3 18 L 22 ABG O2 Saturation 100 H 99 H ABG Base Excess -4 L -1 VBG pH 6.89 L VBG pCO2 25 L VBG pO2 56 VBG Base Excess -27 L 05/03/25 09:47 ABG pH ABG pCO2 ABG pO2 ABG HCO3 ABG O2 Saturation ABG Base Excess VBG pH 7.48 VBG pCO2 35 L D VBG pO2 32 D VBG Base Excess 2 Quality Measures Quality Measures none Assessment & Plan Assessment Current Active Medications: Generic Name Dose Route Start Last Admin Trade Name Freq PRN Reason Stop Dose Admin Acetaminophen 650 mg 04/30/25 16:49 05/07/25 20:15 Acetaminophen 325 Mg Tablet PO 05/30/25 16:48 650 mg Q4HR PRN Administration PAIN SCALE 1-3 (mild Hydrocodone Bitart/Acetaminophen 1 tab 05/09/25 10:45 Hydrocodone/Apap 10/325 Tab PO 05/14/25 10:44 Q8H PRN pain 7-10 Apixaban 5 mg 05/06/25 11:00 05/10/25 08:18 Apixaban 2.5 Mg Tablet PO 06/05/25 10:59 5 mg BID RIANNA Administration Atorvastatin Calcium 20 mg 05/08/25 21:00 05/09/25 20:50 Atorvastatin Calcium 20 Mg Tablet PO 06/07/25 20:59 20 mg HS RIANNA Administration Dextrose 25 ml 04/30/25 16:58 Dextrose 50%-Water Inj 50 Ml Syringe IV 05/30/25 16:57 Q15MIN PRN BG 50-70 responsive npo pt Dextrose 50 ml 04/30/25 16:58 Dextrose 50%-Water Inj 50 Ml Syringe IV 05/30/25 16:57 Q15MIN PRN BG <50 OR BG <70 & pt unresponsive Divalproex Sodium 250 mg 05/09/25 11:00 05/10/25 08:18 Divalproex Sod Er 250 Mg Tashia (Non-Formulary) PO 06/08/25 10:59 250 mg BID RIANNA Administration Epoetin Jemal 10,000 unit 05/09/25 09:00 05/09/25 09:20 Epoetin Jemal-Epbx Inj 10,000 Unit/Ml Vial (Non-Esrd) SC 06/08/25 08:59 10,000 unit 2 X WEEKLY RIANNA Administration Glucagon 1 mg 04/30/25 16:58 Glucagon Inj 1 Mg Vial IM Q15MIN PRN BG <70, and no IV access Heparin Sodium (Porcine) 3,000 unit 04/30/25 22:13 05/10/25 11:42 Heparin Sod Inj 1000 Unit/Ml Vial 10 Ml INDWELLCAT 05/14/25 22:12 3,000 unit X1 PRN Administration DIALYSIS Hydroxyzine HCl 25 mg 05/09/25 10:45 05/10/25 08:18 Hydroxyzine Hcl 25 Mg Tablet PO 06/08/25 10:44 25 mg On Hold: 05/10/25 09:51 BID RIANNA Administration Albumin Human 25 gm in 100 mls @ 100 mls/min 05/07/25 15:17 05/07/25 15:30 Albuminar-25 Ivpb IV 100 mls/min PRN PRN Administration DIALYSIS Levothyroxine Sodium 50 mcg 05/02/25 06:00 05/10/25 05:25 Levothyroxine Sodium 25 Mcg Tablet PO 06/01/25 05:59 50 mcg ACBR RIANNA Administration Melatonin 3 mg 05/09/25 10:45 Melatonin 3 Mg Tablet PO HS PRN sleep Midodrine 10 mg 05/06/25 11:00 05/10/25 13:40 Midodrine 5 Mg Tablet PO 06/03/25 10:59 Not Given TID RIANNA Ropinirole HCl 1 mg 05/09/25 11:00 05/10/25 08:18 Ropinirole Hcl 1 Mg Tablet PO 06/08/25 10:59 1 mg QDAY RIANNA Administration Plan Ms. Whaley is a 64-year-old female with past medical history significant for CVA, atrial fibrillation, HFrEF, CKD, hypothyroidism who presented to ED with abdominal pain, nausea/vomiting and admitted initially to ICU on 04/03/2025. Patient was admitted to ICU from ED on 04/30/25. She required urgent hemodialysis due to hyperkalemia and acidosis. Patient was also developed septic shock in setting of E. coli UTI. # End-stage renal disease on hemodialysis Friday Now most likely intra renal (ATN) after progressing from prerenal in the setting of her sepsis/hypoperfusion. While in the ICU she required hemodialysis as patient was oliguric. Initial creatinine on admission was 6.2 (baseline Cr around 1.0). -Nephrology Dr Landry was consulted who recommended perm cath for outpatient HD for Friday - Patient got accepted for dialysis chair outpatient chair time -Avoid nephrotoxic agents -Renally dose medications -Daily CMP -discontinue SGLT2, dapagliflozin--agent is not dialyazble -Consider Epogen if patient's hemoglobin continues to drop on dialysis days #Atrial fibrillation with RVR #HFrEF (15-20%) Patient has a history of atrial fibrillation on Xarelto. She is rate controlled with her home medication metoprolol succinate 50mg daily. Du to worsening kidney function and she was continued with subQ heparin for anticoagulant. Echo from 04/30--Dilated cardiomyopathy, severe global hypokinesis, severe systolic dysfunction. EF 15-20%. Severely dilated left atrium. CHADsVASc score 4 points No history of meth use -continue Apixiban 5 mg BID for anticoagulation - Patient will transition from amiodarone drip to amiodarone twice daily per cardiology recommendations -continue to hold rate controlling agents in setting of hypotension (holding metoprolol succinate 50mg daily) - Cardiology at this time would recommend patient getting a heart catheterization to determine cause for patient's above heart failure -continue to monitor electolytes keeping potassium >4.0 and Mg >2.0 -optimize GDMT if tolerable #Normocytic anemia Hb on admission was 11.0. It was been slowly downtrending to lowest 6.8. She was given prbc with improvement seen. Total of 2 units have been transfused since admission. (Fe 36); differential diagnosis slightly from possible causes include CKD or chronic infection -FOBT negative -daily CBC -transfuse rbc unit if Hb <7 - Can consider Epogen with dialysis on next session on Friday either in hospital or outpatient #Sepsis 2/2 E coli UTI (resolved) #Hypotension Patient has completed full course of antibiotics for treatment of UTI with Zosyn. No longer experiencing any urinary symptoms. -AM cortisol levels pending -Midodrine 10mg TID #Leukocytosis Leukocytosis today on labs at 14. Possibly reactive, less concerned for infection as she has completed full course of IV Zosyn during this admission for E coli UTI. -daily CBC to monitor #Nephrolithiasis Found to have left sided staghorn calculi measuring ~19mm. Nonobstructive. Urology Dr. Lawton was consulted who stated that she is not a surgical candidate for any intervention. At a future time may consider laser stone fragmentation or lithotripsy. -Continue conservative management -follow up outpatient #Hypothyroidism TSH 2.39, free T4 1.6 -continue levothyroxine 50mcg #CVA No new findings of stroke on head imaging. Patient takes atorvastatin 20 mg daily outpatient and was on Xarelto. -hold atrovastatin until further improvement in LFTS -resume Apixaban 5mg BID vs Xarelto due to nephrotoxicity. #Mood disorder -continue Divalproex 250mg BID #Hyperkalemia?resolved Health Maintenance: DVT prophylaxis: Apixaban 5 mg twice daily Diet: Cardiac Turner: No Lines: PIV, right IJ tunneled dialysis catheter CODE STATUS: Full code Disposition: Patient is currently in telemetry, pending possible heart catheterization. Will discuss with patient regarding next plans. Patient also got accepted for dialysis outpatient chair time. Patient's plan and care discussed with my attending, Dr. Marci Joyce MD PGY-3 Attending Provider Attestation/Addendum I have discussed and was present for the essential components of the history, physical examination, diagnosis, and treatment plan with the resident. I agree with the patient's care as documented by the resident and amended herein by me. Iam Covarrubias, DO. Although this document has been carefully reviewed, there may still be some phonetic and other typographical errors. These errors are purely grammatical due to imperfections in the software program and should not be construed in any way to compromise the substance of the patient's medical care during this visit.
[2025-05-10] MEDS: AMIODARONE HCL 200 MG TABLET PO (20:32)
[2025-05-10] MEDS: ATORVASTATIN CALCIUM 20 MG TABLET PO (20:32)
--- NOTE | 2025-05-10 23:14 | ESPR_ITS ---
RE: RUBÉN VIVAR : 1960 DATE OF SERVICE: 05/10/2025 HISTORY OF PRESENT ILLNESS: Briefly, she is a 64-year-old woman with history of CVA, atrial fibrillation, heart failure with reduced ejection fraction of 25% to 30% on 2D echocardiogram done this admission with severe global hypokinesis, dilated cardiomyopathy, SVTs, hypothyroidism, who presented to the emergency room on 04/30/2025 with abdominal pain for 2 days prior to admission and was found with a potassium of 9.5 and CO2 of less than 10. The patient was immediately transferred to ICU and was emergently dialyzed. The patient remains oliguric requiring permanent dialysis catheter placement. While in ICU, she became very volume overloaded and had PIRRT for at least 5 days for fluid removal and solute clearance. Her blood pressures improved and her vasopressors were discontinued. She was transferred to telemetry on 05/07/2025 and last dialysis was today. The patient could not tolerate any fluid removal during dialysis today. The patient has been more relaxed today than she was yesterday. Her urine culture grew ESBL and the patient also received IV Zosyn since she was admitted. Dr. Bishnu Chauhan saw her today and recommended defibrillator and before that coronary angiogram and possibly revascularization. CURRENT MEDICATIONS: 1. Acetaminophen. 2. Albumin. 3. Amiodarone, now discontinued. 4. Eliquis 5 mg b.i.d. 5. Atorvastatin 20 mg at bedtime. 6. D5 water p.r.n. 7. Divalproex sodium ER 250 mg p.o. b.i.d. 8. Epogen 10,000 units SQtwo times a week. 9. 10. [place]. 11. Hydroxyzine 25 mg p.o. x1. 12. Atarax 25 mg p.o. b.i.d. 13. Levothyroxine 50 mcg p.o. daily. 14. Lorazepam p.r.n. 15. Melatonin 3 mg at bedtime. 16. Midodrine 10 mg p.o. t.i.d. 17. Quetiapine 25 mg p.o. x1. 18. Requip 1 mg p.o. daily. PHYSICAL EXAMINATION: General: She is more verbal and awake. Vital Signs: Blood pressure of 136/77, heart rate of 98. HEENT: Anicteric sclerae. Normocephalic. Neck: Supple. No JVD. Chest and Lungs: Symmetrical expansion. Clear breath sounds. Heart: Without murmur. Abdomen: Soft and nontender. Extremities: Trace edema in both lower extremities, not as much as compared to how she was while in ICU. LABORATORY DATA: Hemoglobin 10.2, WBC 11,200, platelet count 171,000. Sodium 141, potassium 4.4, chloride 103, CO2 of 21.9, BUN 26, creatinine 3.8. Glucose 123, calcium 8.8 corrected 9.3. AST 46, ALT 39, hemoglobin 10.2, WBC 11,200, platelet count 171,000. ASSESSMENT: 1. Oliguric acute kidney injury secondary to acute tubular necrosis following hemodynamic instability and hypotension resulting to hypoperfusion and acute tubular necrosis. 2. Hyperkalemia, now resolved. 3. Lactic acidosis, now resolved. 4. Staghorn calculi in the left kidney, not candidate for any procedure. 4. Dilated cardiomyopathy with ejection fraction of 25% to 30% with severe global hypokinesis. 6. Volume overload, now improved. 7. Status post sepsis most likely secondary to urinary tract infection with ESBL urinary tract infection. PLAN: The patient had dialysis today. No ultrafiltration was done. Continue supportive treatment. The patient may go to coronary angiogram and possibly AICD placement. DT: 21:45:16 TT: 22:47:00 Ref: [id number] - TID: [id number] MTDD
[2025-05-11] VITALS (10 sets, daily range): BP systolic 94–132; BP diastolic 72–91; PULSE 88–120; RESP 17–22; TEMP 35.9–36.2; O2SAT 95–100; BMI 30.7
[2025-05-11] MEDS: LEVOTHYROXINE SODIUM 25 MCG TABLET 50 MCG PO (05:22)
[2025-05-11] MEDS: MIDODRINE 5 MG TABLET 10 MG PO ×2 (05:22→14:39)
[2025-05-11 05:54] LABS: Basophils # (Auto) 0.0 Thou/mm3 (0.0-0.2); Basophils % (Auto) 0 % (0-2.5); Eosinophils # (Auto) 0.1 Thou/mm3 (0.0-0.5); Eosinophils % (Auto) 1 % (0-10); Hematocrit 27.7 % (36.0-46.0); Hemoglobin 8.9 g/dL (12.0-16.0); Immature Granulocytes Auto 0.05 Thou/mm3 (0.00-0.00); Lymphocytes # (Auto) 3.0 Thou/mm3 (1.0-4.8); Lymphocytes % (Auto) 30 % (10-50); Mean Corpuscular HGB Conc 32.1 g/dl (31.0-37.0); Mean Corpuscular Hemoglobin 31.2 pg (25.0-35.0); Mean Corpuscular Volume 97 fL (80-100); Monocytes # (Auto) 1.3 Thou/mm3 (0.0-0.8); Monocytes % (Auto) 13 % (0-12); Neutrophils # (Auto) 5.4 Thou/mm3 (1.8-7.7); Neutrophils % (Auto) 55 % (37-80); Nucleated Red Blood Cell # 0.07 Thou/mm3 (0.00-0.00); Nucleated Red Blood Cell % 1 /100 WBC (0); Platelet Count 216 Thou/mm3 (140-440); RDW Standard Deviation 62.5 fL (36.4-46.3); Red Blood Count 2.85 Miln/mm3 (4.00-5.20); White Blood Count 9.9 Thou/mm3 (3.6-11.0)
[2025-05-11 06:30] LABS: Alanine Aminotransferase 31 U/L (10-49); Albumin, Serum 3.6 gm/dL (3.4-4.8); Albumin/Globulin Ratio 1.8 (1.2-2.2); Alkaline Phosphatase 71 U/L (46-116); Anion Gap 13 (7-16); Aspartate Amino Transferase 27 U/L (0-34); BUN/Creatinine Ratio 5 Ratio (12-20); Bilirubin,Total 0.6 mg/dL (0.3-1.2); Blood Urea Nitrogen 16 mg/dL (9-23); Calcium 9.6 mg/dL (8.3-10.6); Calcium (Corrected) 9.9 mg/dL (8.5-10.1); Carbon Dioxide 25.3 mMol/L (20.0-31.0); Chloride 103 mMol/L (98-107); Creatinine (Component) 3.1 mg/dL (0.6-1.3); Estimated Creatinine Clearance 24.9 mL/min (>60); Globulin 2.0 gm/dL (2.3-3.5); Glucose 106 mg/dL (74-106); Magnesium 2.3 mg/dL (1.6-2.6); Osmolality,Calculated 282 (275-295); Potassium 4.1 mMol/L (3.4-5.1); Sodium 141 mMol/L (136-145); Total Protein 5.6 gm/dL (5.7-8.2); eGFR 16 See Note
[2025-05-11] MEDS: DIVALPROEX SOD ER 250 MG TABER (NON-FORMULARY) PO (08:42)
[2025-05-11] MEDS: ONDANSETRON INJ 2 MG/ML INJ 2 ML 4 MG IVP (08:42)
[2025-05-11] MEDS: APIXABAN 2.5 MG TABLET 5 MG PO (08:43)
[2025-05-11] MEDS: AMIODARONE HCL 200 MG TABLET PO (08:43)
--- NOTE | 2025-05-11 12:31 | PC.SS ---
SS follow up note; SS set up transportation for patient through [facility], Reference #[id number]. SS notified patient's nurse and Patient's brother, Ben Whaley.
--- NOTE | 2025-05-11 14:54 | ESDS_ITS ---
Planned Discharge Date 05/11/25 DS: Providers Provider Date of admission: 04/30/25 16:49 Primary care physician: Saida Mejía MD Admitting Provider: Abdoulaye Ba MD Attending Provider on Admission: Dru Quan MD Consults: 04/30/25 15:56 Consult to Nephrology Stat Comment: Consulting Provider: Park Landry 05/01/25 16:38 Referral Wound Care Routine Comment: 05/02/25 22:54 Consult to Urology Stat Comment: L staghorn calculus for perc nephrolithotomy PNL Consulting Provider: Garth Lawton 05/03/25 10:13 Referral Nutritional Services Routine Comment: Wounds 05/06/25 14:25 Consult to Cardiology Routine Comment: Afib, HFrEF [15-20] Consulting Provider: Bishnu Barcenas Attending Provider on DC: Dr. Quan Discharging Provider: Dr. Quan DS: Diagnosis Problem List Completed Was Problem List Reviewed/Reconciled?: Yes Hospital Course Hospital Course Hospital course: Past Medical History * Cerebrovascular accident (CVA) * Atrial fibrillation (AFib) * Heart failure with reduced ejection fraction (15?20%) * Chronic kidney disease (CKD) * Hypothyroidism * Nephrolithiasis * Restless leg * constipation * Anxiety Admission Diagnoses * Acute kidney injury with severe hyperkalemia and metabolic acidosis * Septic shock secondary to E. coli urinary tract infection * AFib with RVR in the setting of HFrEF * Nephrolithiasis (non-obstructive left staghorn calculus) * Hypertension * Anxiety Discharge Diagnoses * End-stage kidney disease requiring outpatient hemodialysis (//Fri schedule) * Resolved septic shock secondary to E. coli UTI * AFib with RVR, rate-controlled * HFrEF (EF 15?20%), on GDMT as tolerated * Non-obstructive left staghorn calculus (conservative management) * Hypotention, requiring midodrine * CVA (chronic, no acute changes) * Anxiety, intermittent Hospital Course Ms. Whaley is a 64 yo woman who was admitted to the ICU on 04/30/2025 for abdominal pain, nausea, and vomiting. She was found to have severe hyperkalemia and metabolic acidosis requiring urgent hemodialysis. Nephrology was consulted and recommended placement of a tunneled permanent catheter for long-term outpatient hemodialysis on a Friday//Friday schedule. Her SGLT2 inhibitor was discontinued given dialysis dependence. She developed septic shock secondary to E. coli urinary tract infection, requiring broad-spectrum antibiotics (piperacillin?tazobactam). She completed the antibiotic course with resolution of infection and stabilization of hemodynamics. For AFib with RVR in the setting of severe HFrEF (EF 15?20%), she was managed with amiodarone infusion and transitioned to oral therapy 200 mg BID . She was initiated on Xarelto (rivaroxaban) for stroke prevention. Recommend GDMT for HFrEF was optimized as tolerated by blood pressure and renal function., Cardiology was consulted, who recomended outpatient right heart cath to evaluate the etiology of her dilated cardiomyopathy seen on TTE performed 04/2025. Only GDMT at home is metoprolol XL 50 mg QD. Admission BNP 2426 with shortness of breath and BLE swelling L>R. Unknown cause of HFrEF as well as dilated cardiomyopathy. Denies previous heart attacks, prior drug use and does not know if she has ever had a cardiac catheterization done. 2022 Echocardiogram shows dilated cardiomyopathy, severe global hypokinesis with estimated EF 25 to 30%, normal RV size, LA mildly dilated, mild MR. 04/2025 Echocardiogram shows dilated cardiomyopathy, moderately dilated LV, severe global hypokinesis and severe systolic dysfunction estimated EF 15 to 20%. Normal RV size, reduced systolic function. RA estimated RVSP 45 mmHg, moderate pulmonary hypertension, moderate MR and mild TR, trace to mild AI, LA severely dilated, RA severely dilated, mildly dilated ascending body measuring 3.9 cm. Patient's HFrEF worsening likely secondary to recent septic shock as well as lack of GDMT outpatient. Her hypertension remained labile, requiring midodrine 10 mg TID for blood pressure support. Regarding nephrolithiasis, imaging revealed a left staghorn calculus (1.9 cm), non-obstructive. Urology was consulted and advised against surgical intervention at this time, recommending outpatient follow-up for potential future laser stone fragmentation or lithotripsy. Conservative management was continued. For her prior CVA, head imaging showed no acute findings. She continues on statin therapy and apixaban. During hospitalization, she experienced intermittent episodes of anxiety, particularly at night, which were managed with PRN diphenhydramine and support hebert measures. Condition on Discharge * Hemodynamically stable * On hemodialysis with permanent catheter in place * Afebrile, no signs of infection * Mentally alert, mild anxiety but manageable * Ambulating with assistance Discharge Medications * Rivaroxaban (Xarelto) for AFib * Amiodarone 200 mg BID per cardiology recommendations * GDMT for HFrEF as tolerated (verify medication list) * Midodrine 10 mg TID for BP support * Apixaban 5 mg BID for stroke prevention * STOP taking Xarelto * DO NOT take any antihypertensives until you see rattle leak and squeak repairer * Please make an appointment with Urologist, Dr. Lawton for 3 months after discharge to follow up your kidney stone staghorn calculi. Follow-Up * Nephrology: outpatient hemodialysis T//Fri, catheter care, follow up in 1 week with nephrology * Cardiology: management of AFib and optimization of HFrEF therapy, outpatient cardiac cath to assess for etiology of dilated cardiomyopathy. Follow up in 1 week * Urology: outpatient follow-up for left staghorn calculus, with Dr. Esposito in 3 months * Primary Care: medication monitoring, blood pressure and heart failure management Discharge Instructions * Attend all scheduled hemodialysis sessions * Monitor for fever, dysuria, hematuria, or flank pain (possible recurrent UTI or stone complications) * Seek care for worsening shortness of breath, chest pain, or palpitations * Maintain fluid and dietary restrictions as advised by nephrology Plan discussed with Dr. Yoana Byrd MD PGY1 Time Spent with Patient Time attestation: Total time spent providing and/or coordinating discharge services: Time spent: Greater than 30 minutes Exam Vital Signs Temp Pulse Resp BP Pulse Ox O2 Del Method O2 Flow Rate 96.6 F L 108 H 17 105/72 95 Nasal Cannula 5 05/11/25 12:00 05/11/25 14:39 05/11/25 12:00 05/11/25 14:39 05/11/25 12:00 05/11/25 12:00 05/11/25 12:00 FiO2 96 05/10/25 04:00 Narrative Exam GENERAL: AOx3, not in acute distress, appears older than stated age HEENT: NC/AT, mucous membranes moist, bilateral sclera anicteric CARDIOVASCULAR: irregular rhythm, tachycardic, no murmurs able to be appreciated, R IJ TDC in place PULMONARY: distant breath sounds bilaterally, poor inspiratory effort, no rales/rhonchi/wheezes ABDOMINAL: soft, non-tender, non-distended, no rebound/guarding, bowel sounds present EXTREMITIES: 2+ pitting edema of BLE, L heel wound, contracture of L hand, 0/5 strength in LUE and LLE, 4/5 strength RUE and RLE SKIN: LLE wound NEURO: alert, following commands Discharge Plan Plan Patient Disposition: Xfer Skilled Nsg Fac (SNF) Patient condition on transfer: Stable Care Plan Goals: - Please make an appointment with Urologist, Dr. Lawton for 3 months after dis charge to follow up your kidney stone [staghorn calculi. Prescriptions/Referrals Prescriptions/Med Rec: New amiodarone 200 mg tablet 200 mg PO BID 30 Days Qty: 60 0RF Eliquis 5 mg tablet 5 mg PO BID 30 Days Qty: 60 0RF Continued levothyroxine 50 mcg Tablet 50 mcg PO QDAY Qty: 0 magnesium hydroxide [Milk of Magnesia] 30 ML/CUP suspension 30 ml PO Q72H PRN (Reason: CONSTIPATION) Qty: 0 multivitamin with minerals Tablet 1 tab PO QDAY Qty: 0 ascorbic acid (vitamin C) 500 mg Tablet 500 mg PO BID diphenoxylate-atropine 2.5-0.025 mg Tablet 1 tab PO BID Qty: 6 0RF ondansetron HCl 4 mg tablet 4 mg PO Q6H hydrocodone-acetaminophen 10-325 mg tablet 1 tab PO Q8H ropinirole 1 mg tablet 1 mg PO QDAY lasix 40 mg PO DAILY hydroxyzine HCl 25 mg tablet 25 mg PO BID loratadine 10 mg tablet 10 mg PO Q24H sennosides-docusate sodium [Senna-S] 8.6-50 mg tablet 2 tab-cap PO BID potassium chloride 10 mEq tablet extended release 10 meq PO BID divalproex [Depakote ER] 250 mg tablet extended release 24 hr 250 mg PO BID psyllium husk [Fiber Laxative (psyllium husk)] 0.52 gram capsule 0.52 g PO BID brimonidine 0.2 % drops 1 drp ophthalmic (eye) HS Rx Instructions: administer approximately 8 hours apart polyethylene glycol 3350 17 gram powder in packet 17 g PO QDAY AtorvaliQ 20 mg/5 mL (4 mg/mL) suspension 20 mg PO QDAY Rx Instructions: administer on an empty stomach, at least 1 hour before or 2 hours after food/meal(s) melatonin 3 mg capsule 3 mg PO HS PRN (Reason: sleep) diphenhydramine HCl [Allergy (diphenhydramine)] 25 mg capsule 25 mg PO Q8H PRN (Reason: allergy symptoms) loperamide 2 mg tablet 4 mg PO Q6H PRN (Reason: loose stool) Enema 19-7 gram/118 mL enema 118 ml [place] QDAY PRN (Reason: constipation) Held metoprolol succinate 25 mg Tablet Extended Release 24 Hr 50 mg PO QDAY Qty: 0 0RF Hold Instructions: Resume on 05/31/25. Hold until you see rattle leak and squeak repairer. metoprolol succinate 50 mg tablet extended release 24 hr 50 mg PO QDAY Hold Instructions: Resume on 05/31/25. Hold until you see rattle leak and squeak repairer. Discontinued Xarelto 15 mg Tablet 15 mg PO WSUPPER Qty: 0 0RF Referrals: Bishnu Barcenas MD [Physician, Cardiology] Garth Lawton MD [Physician, Urology] Park Landry MD [Physician, Nephrology] Saida Mejía MD [Primary Care Provider, Family Practice] Patient/Caregiver Discharge Instructions Other Discharge Activity Instructions:: Please make an appointment with Urologist, Dr. Lawton for 3 months after discharge to follow up your kidney stone staghorn calculi. Follow up with cardiology in 1 week. Hold anti hypertensives until you see rattle leak and squeak repairer due to low blood pressure. Continue taking amiodarone 200 mg BID as management of Atrial fibrillation. Follow up with nephrology in 1 week. continue HD T/TH/Sat. Due to kidney failure, stop taking Xarelto and start taking Eliquis 5mg BID as management for atrial fibrillation. Education Materials: AFL/Afib Print Language: Korean Stand Alone Forms: [employer]mita Award Info., Patient Portal Info Letter Discharge Order Discharge Orders: Discharge (Routine); Ordered 05/11/25 Ordered By: Alina Lees Quality Discharge Quality Measures VTE prophylaxis Attestestation Attestation I have discussed and was present for the essential components of the discharge history, physical examination, diagnosis, and discharge treatment plan with the resident. I agree with the patient's discharge care as documented by the resident and amended herein by me. Ima Covarrubias DO. The patient/family understood all discharge instructions, all questions were answered satisfactorily. The patient/family was instructed to return to the Emergency Department is symptoms worsened or persisted. Patient was stable, afebrile and tolerating p.o. intake at time of discharge to SNF. Although this document has been carefully reviewed, there may still be some phonetic and other typographical errors. These errors are purely grammatical due to imperfections in the software program and should not be construed in any way to compromise the substance of the patient's medical care during this visit.
--- NOTE | 2025-05-11 16:13 | PC.SS ---
SS was contacted by [facility] informing SS that due to high levels of emergency calls patient's ETA will change to 17:30. SS updated patient's nurse and Lana from [facility].
--- NOTE | 2025-05-11 16:17 | PC.NURSE ---
Discharge Delayed: Original discharge time of 1530, pushed back to 1630, and now discharge delayed to 1730 per W Kacey.
--- NOTE | 2025-05-11 17:22 | ESPR_ITS ---
Documentation for date of: 05/11/25 Subjective Subjective Interval history: Patient seen and examined at bedside. Telemetry reviewed, patient continues to be in atrial fibrillation RVR with a rate of 120-130s. Vitals and labs reviewed. BPs still soft, saturating at 100% on 5 L O2. Patient reports feeling better today, expresses multiple times that she wants to go home to her . Is amenable to cardiac cath however cardiac catheterization is not urgent as dilated cardiomyopathy has been chronic and can be done outpatient. Potassium 4.1, magnesium 2.3. Exam Vital Signs Temp Pulse Resp BP Pulse Ox O2 Del Method O2 Flow Rate 96.6 F L 108 H 17 105/72 95 Nasal Cannula 5 05/11/25 12:00 05/11/25 14:39 05/11/25 12:00 05/11/25 14:39 05/11/25 12:00 05/11/25 12:00 05/11/25 12:00 FiO2 96 05/10/25 04:00 Narrative Exam GENERAL: AOx3, not in acute distress, appears older than stated age HEENT: NC/AT, mucous membranes moist, bilateral sclera anicteric CARDIOVASCULAR: irregular rhythm, tachycardic, no murmurs able to be appreciated, R IJ TDC in place PULMONARY: distant breath sounds bilaterally, poor inspiratory effort, no rales/rhonchi/wheezes ABDOMINAL: soft, non-tender, non-distended, no rebound/guarding, bowel sounds present EXTREMITIES: 2+ pitting edema of BLE, L heel wound, contracture of L hand, 0/5 strength in LUE and LLE, 4/5 strength RUE and RLE SKIN: LLE wound NEURO: alert, following commands Objective Labs 05/11/25 05:04 05/11/25 05:04 Labs: Laboratory Results - last 24 hr 05/11/25 05:04 WBC 9.9 RBC 2.85 L Hgb 8.9 L Hct 27.7 L MCV 97 MCH 31.2 MCHC 32.1 RDW Std Deviation 62.5 H Plt Count 216 D Neut % (Auto) 55 Lymph % (Auto) 30 [place] % (Auto) 13 H Eos % (Auto) 1 Baso % (Auto) 0 Neut # (Auto) 5.4 Lymph # (Auto) 3.0 [place] # (Auto) 1.3 H Eos # (Auto) 0.1 Baso # (Auto) 0.0 Immature Gran # (Auto) 0.05 H Absolute Nucleated RBC 0.07 H Immature Gran % 1 H Nucleated RBC % 1 H Sodium 141 Potassium 4.1 Chloride 103 Carbon Dioxide 25.3 Anion Gap 13 BUN 16 Creatinine 3.1 H D Estim Creat Clear Calc 24.9 L eGFR 16 L BUN/Creatinine Ratio 5 L Glucose 106 Calculated Osmolality 282 Calcium 9.6 Corrected Calcium 9.9 Magnesium 2.3 Total Bilirubin 0.6 AST 27 ALT 31 Alkaline Phosphatase 71 Total Protein 5.6 L Albumin 3.6 Globulin 2.0 L Albumin/Globulin Ratio 1.8 ABG Interpretation ABG results: 04/30/25 04/30/25 05/01/25 16:32 22:23 07:41 ABG pH 7.50 H 7.51 H ABG pCO2 23 L 28 L ABG pO2 140 H 91 D ABG HCO3 18 L 22 ABG O2 Saturation 100 H 99 H ABG Base Excess -4 L -1 VBG pH 6.89 L VBG pCO2 25 L VBG pO2 56 VBG Base Excess -27 L 05/03/25 09:47 ABG pH ABG pCO2 ABG pO2 ABG HCO3 ABG O2 Saturation ABG Base Excess VBG pH 7.48 VBG pCO2 35 L D VBG pO2 32 D VBG Base Excess 2 Quality Measures Quality Measures none Assessment & Plan Assessment Current Active Medications: Generic Name Dose Route Start Last Admin Trade Name Freq PRN Reason Stop Dose Admin Acetaminophen 650 mg 04/30/25 16:49 05/07/25 20:15 Acetaminophen 325 Mg Tablet PO 05/30/25 16:48 650 mg Q4HR PRN Administration PAIN SCALE 1-3 (mild Hydrocodone Bitart/Acetaminophen 1 tab 05/09/25 10:45 Hydrocodone/Apap 10/325 Tab PO 05/14/25 10:44 Q8H PRN pain 7-10 Amiodarone HCl 200 mg 05/10/25 21:00 05/11/25 08:43 Amiodarone Hcl 200 Mg Tablet PO 06/09/25 20:59 200 mg BID RIANNA Administration Apixaban 5 mg 05/06/25 11:00 05/11/25 08:43 Apixaban 2.5 Mg Tablet PO 06/05/25 10:59 5 mg BID RIANNA Administration Atorvastatin Calcium 20 mg 05/08/25 21:00 05/10/25 20:32 Atorvastatin Calcium 20 Mg Tablet PO 06/07/25 20:59 20 mg HS RIANNA Administration Dextrose 25 ml 04/30/25 16:58 Dextrose 50%-Water Inj 50 Ml Syringe IV 05/30/25 16:57 Q15MIN PRN BG 50-70 responsive npo pt Dextrose 50 ml 04/30/25 16:58 Dextrose 50%-Water Inj 50 Ml Syringe IV 05/30/25 16:57 Q15MIN PRN BG <50 OR BG <70 & pt unresponsive Divalproex Sodium 250 mg 05/09/25 11:00 05/11/25 08:42 Divalproex Sod Er 250 Mg Tashia (Non-Formulary) PO 06/08/25 10:59 250 mg BID RIANNA Administration Epoetin Jemal 10,000 unit 05/12/25 09:00 Epoetin Jemal-Epbx Inj 10,000 Unit/Ml Vial (Esrd) SC 06/08/25 08:59 2 X WEEKLY RIANNA Glucagon 1 mg 04/30/25 16:58 Glucagon Inj 1 Mg Vial IM Q15MIN PRN BG <70, and no IV access Heparin Sodium (Porcine) 3,000 unit 04/30/25 22:13 05/10/25 11:42 Heparin Sod Inj 1000 Unit/Ml Vial 10 Ml INDWELLCAT 05/14/25 22:12 3,000 unit X1 PRN Administration DIALYSIS Hydroxyzine HCl 25 mg 05/09/25 10:45 05/11/25 08:43 Hydroxyzine Hcl 25 Mg Tablet PO 06/08/25 10:44 25 mg BID RIANNA Administration Albumin Human 25 gm in 100 mls @ 100 mls/min 05/07/25 15:17 05/07/25 15:30 Albuminar-25 Ivpb IV 100 mls/min PRN PRN Administration DIALYSIS Levothyroxine Sodium 50 mcg 05/02/25 06:00 05/11/25 05:22 Levothyroxine Sodium 25 Mcg Tablet PO 06/01/25 05:59 50 mcg ACBR RIANNA Administration Melatonin 3 mg 05/09/25 10:45 Melatonin 3 Mg Tablet PO HS PRN sleep Midodrine 10 mg 05/06/25 11:00 05/11/25 14:39 Midodrine 5 Mg Tablet PO 06/03/25 10:59 10 mg TID RIANNA Administration Ondansetron HCl 4 mg 05/11/25 07:35 05/11/25 08:42 Ondansetron Inj 2 Mg/Ml Inj 2 Ml IVP 06/10/25 07:34 4 mg Q6HR PRN Administration NAUSEA OR VOMITING Protocol Ropinirole HCl 1 mg 05/09/25 11:00 05/11/25 08:42 Ropinirole Hcl 1 Mg Tablet PO 06/08/25 10:59 1 mg QDAY RIANNA Administration Plan Hollie Whaley 64F with pmhx significant for CVA, atrial fibrillation on Xarelto, HFrEF (15-20% 04/2025), [id number], hypothyroidism who presented to [facility] ED on 04/20 for abdominal pain, nausea/vomiting and admitted initially to ICU on 04/30/2025 for septic shock 2/2 E. coli UTI, found to be severely hyperkalemic, lactic acidosis and oliguric ARIANA 2/2 ATN. Course complicated by worsening HFrEF (15-20% from 25-30% in 2022) and atrial fibrillation RVR, for which cardiology was consulted. #Atrial fibrillation RVR #Hx of atrial fibrillation Patient has a history of A-fib on Xarelto at home and takes metoprolol XL 50 mg QD for rate control. Denies palpitations for the last few years and is unsure if she is persistently in A-fib. Patient is poor historian and is unaware of what medications she is taking nor if she sees a plastic installer. Atrial fibrillation RVR likely secondary to septic shock which resolved however blood pressure did not tolerate and patient was attempted to be transition to metoprolol. However on 05/08, patient was noted to have A-fib RVR during a rapid response called for anxiety, amiodarone drip was started on 05/08 patient remains in A-fib RVR following AM completion on 05/09. Likely secondary to anxiety as on examination, patient extremely anxious and tachypneic with telemetry box showing A-fib RVR with a rate of 120-130s however during interview anxiety subsides and heart rate decreases to 100-110. On telemetry review, lowest heart rate is low 60s over the past 24 hours however 50s and one reading of 42 are being charted from Rt brachial and dorsalis pedis pulses. Ddx includes sick sinus syndrome as patient has severe heart failure and likely persistent atrial fibrillation. CHADSVASC score 4, 4.8% stroke risk per year HASBLED 3 Plan: - PO amiodarone 200 mg BID for atrial fibrillation and to decrease arrhythmia risk as pt does have dilated cardiomyopathy - Hold metoprolol - hx of hypotension in ICU on metoprolol and low HR - Continue anticoagulation of Eliquis 5 mg BID - Telemetry for cardiac monitoring - Keep K>4 and Mg>2 #HFrEF (15-20% 04/2025) #Dilated cardiomyopathy Patient has a history of HFrEF. Only GDMT at home is metoprolol XL 50 mg QD. Admission BNP 2426 with shortness of breath and BLE swelling L>R. Unknown cause of HFrEF as well as dilated cardiomyopathy. Denies previous heart attacks, prior drug use and does not know if she has ever had a cardiac catheterization done. 2022 Echocardiogram shows dilated cardiomyopathy, severe global hypokinesis with estimated EF 25 to 30%, normal RV size, LA mildly dilated, mild MR. 04/2025 Echocardiogram shows dilated cardiomyopathy, moderately dilated LV, severe global hypokinesis and severe systolic dysfunction estimated EF 15 to 20%. Normal RV size, reduced systolic function. RA estimated RVSP 45 mmHg, moderate pulmonary hypertension, moderate MR and mild TR, trace to mild AI, LA severely dilated, RA severely dilated, mildly dilated ascending body measuring 3.9 cm Patient's HFrEF worsening likely secondary to recent septic shock as well as lack of GDMT outpatient. Plan: - Plan to initiate GDMT once blood pressure tolerates however avoid SGLT2 inhibitors due to current dialysis status - Strict I&O and daily weights - Continue to follow up outpatient for further management - Will likely need defibrilator due severe HFrEF if pt does not respond to maximum GDMT for more 3 months - Will need cardiac catheterization to rule out CAD as a cause of dilated cardiomyopathy (if not performed before) as outpatient and recommended to follow up with her plastic installer as outpatient #Normocytic anemia #Sepsis 2/2 E coli UTI (resolved) #Hypotension #Leukocytosis #Nephrolithiasis #Hypothyroidism #CVA #Mood disorder Plan: - Above managed by primary team Thank you for your consultation and allowing participation in patient's care. Plan of care discussed with attending Dr. Swapna August, DO PGY-1 Internal Medicine Attending Provider Attestation/Addendum I have personally seen and examined the patient separately on the above date of service and discussed the plan of care with the resident. I reviewed the resident Dr. Donya August consultation progress note and agree with the resident findings and plan in the note above and have also edited the documentation to reflect my findings and plan. Bishnu Barcenas M.D. Interventional Cardiology
--- NOTE | 2025-05-17 09:19 | PC.SS ---
residential program worker opened chart following a call form [facility]. SW asked insurance processor to call facility where patient is currently at [facility].
[2025-05-25 06:33] LABS: Cortisol,total,LC/MS/MS* 11.8 mcg/dL
== END 2025-05-11 18:30 | disposition skilled nursing facility (03) | DRG 720 ==
LOC: SERX 16:22 → SERHOLD 18:57 → S2SX 05-01 01:42 → SERHOLD 05-01 14:27 → S2SX 05-06 08:38 → S3SX 05-07 09:35 → S2NX 05-09 06:15
PROVIDERS: Internal Medicine Cardiovascular Disease; Internal Medicine Nephrology; Radiology Diagnostic Radiology; Student in an Organized Health Care Education/Training Program; Admitting Provider Internal Medicine Critical Care Medicine; Emergency Provider Family Medicine; PCP Family Medicine; Visit Provider Student in an Organized Health Care Education/Training Program
DX: A41.51 Sepsis due to Escherichia coli [E. coli] (principal); E87.5 Hyperkalemia; I48.91 Unspecified atrial fibrillation; I50.22 Chronic systolic (congestive) heart failure; E03.9 Hypothyroidism, unspecified; E11.22 Type 2 diabetes mellitus with diabetic chronic kidney disease; J96.01 Acute respiratory failure with hypoxia; E87.4 Mixed disorder of acid-base balance; D53.9 Nutritional anemia, unspecified; D68.9 Coagulation defect, unspecified; N17.0 Acute kidney failure with tubular necrosis; N39.0 Urinary tract infection, site not specified; N20.0 Calculus of kidney; R57.1 Hypovolemic shock; I42.0 Dilated cardiomyopathy; R74.01 Elevation of levels of liver transaminase levels; Z87.891 Personal history of nicotine dependence; B95.8 Unspecified staphylococcus as the cause of diseases classified elsewhere; D63.1 Anemia in chronic kidney disease; D69.6 Thrombocytopenia, unspecified; E43 Unspecified severe protein-calorie malnutrition; E87.6 Hypokalemia; E88.09 Other disorders of plasma-protein metabolism, not elsewhere classified; F41.9 Anxiety disorder, unspecified; E86.1 Hypovolemia; G25.81 Restless legs syndrome; G40.909 Epilepsy, unspecified, not intractable, without status epilepticus; G47.00 Insomnia, unspecified; G89.29 Other chronic pain; G93.41 Metabolic encephalopathy; I13.2 Hypertensive heart and chronic kidney disease with heart failure and with stage 5 chronic kidney disease, or end stage renal disease; I27.20 Pulmonary hypertension, unspecified; I95.3 Hypotension of hemodialysis; N18.6 End stage renal disease; R65.21 Severe sepsis with septic shock; R57.0 Cardiogenic shock; Z16.12 Extended spectrum beta lactamase (ESBL) resistance; Z74.01 Bed confinement status; Z79.01 Long term (current) use of anticoagulants; Z79.899 Other long term (current) drug therapy; Z87.442 Personal history of urinary calculi; I69.354 Hemiplegia and hemiparesis following cerebral infarction affecting left non-dominant side; Z88.8 Allergy status to other drugs, medicaments and biological substances; Z99.2 Dependence on renal dialysis; N28.1 Cyst of kidney, acquired; K59.00 Constipation, unspecified; Z88.2 Allergy status to sulfonamides; Z88.1 Allergy status to other antibiotic agents
CPT/HCPCS: 36415; 36600; 70450; 71045; 71275; 74174; 74176; 76770; 76937; 77001; 80048; 80053; 80069; 80074; 81001; 82270; 82436; 82533; 82570; 82607; 82746; 82803; 83036; 83540; 83550; 83605; 83615; 83735; 83880; 83935; 84100; 84133; 84145; 84300; 84439; 84443; 84484; 85014; 85018; 85025; 85379; 85384; 85610; 85730; 86580; 86706; 86850; 86900; 86901; 86923; 87040; 87077; 87081; 87086; 87186; 93005; 93306; 94640; 94664; 96365; 96366; 96372; 96375; 99284; A4314; A4649; C1750; C1894; J0283; J1630; J1642; J1643; J1644; J1815; J1938; J2405; J2543; J3010; J3411; J3475; J3490; J7030; J7050; J7060; J7120; J7999; J8499; P9016; P9047; Q5106; Q9967; A9270

== ENCOUNTER 2025-05-17 11:58 | Inpatient (IN) | payer MEDICAID, SELFPAY ==
[2025-05-17] VITALS (100 sets, daily range): BP systolic 79–133; BP diastolic 30–117; PULSE 32–149; RESP 10–29; TEMP 35.7–36.6; O2SAT 89–100; BMI 30.3
--- NOTE | 2025-05-17 12:08 | XR_ITS ---
Examination: AP chest single view Technique one AP portable upright chest single view Date and time: May 17, 2025 12:38 PM INDICATIONS: Shortness of breath today. FINDINGS: Mild heart failure. Mild enlargement cardiac contour. Prominent vascular congestion although no riccardo pulmonary edema No lobar pneumonia. Right internal jugular dialysis catheter tips SVC IMPRESSION: Mild heart failure
--- NOTE | 2025-05-17 12:09 | EKG_ITS ---
[facility] Test Date: 2025-05-17 Pat Name: RUBÉN VIVAR Department: Room: - Gender: Female Ultrasound Supervisor: : [id number] Requested By: Bari Diego Order Number: [id number] Reading MD: Bari Diego Measurements Intervals [place] Rate: 108 P: AR: QRS: -29 QRSD: 149 T: 110 QT: 388 QTc: 520 Interpretive Statements ATRIAL FIBRILLATION WITH RAPID VENTRICULAR RESPONSE LEFT BUNDLE BRANCH BLOCK [120+ ms QRS DURATION, 80+ ms Q/S IN V1/V2, 85+ ms R IN I/aVL/V5/V6] Compared to ECG 05/10/2025 10:47:45 Left bundle-branch block now present Intraventricular conduction delay no longer present /store/S0/[id number]
--- NOTE | 2025-05-17 12:12 | EDNOTE_ITS ---
<Statement entered by Ct Kingston MD - 05/18/25 06:15> As co-signing physician, I was present and available for consult prn. I concur with the plan and care as documented by the midlevel provider. ED General RME/HPI General Chief complaint: Shortness of Breath/Dyspnea Stated complaint: SOB Time Seen by Provider: 05/17/25 12:08 Arrival date/time: 05/17/25 11:58 CC: Shortness of breath HPI patient presents to the ER via EMS for shortness of breath. Patient comes from [facility], where the patient was initially show oxygenation is in the low 80s. Patient is currently oxygenating at 89% on 15 L nonrebreather. The patient is a dialysis patient dialyzed and Friday, patient states she had a full round of dialysis on Friday. Dr Landry is her drilling assistant. Patient denies chest pain fever chills nausea vomiting. 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 Related Data Home Medications ?Medication ?Instructions ?Recorded ?Confirmed levothyroxine 50 mcg tablet 50 mcg PO QDAY #0 tabs 06/1605/01/25 magnesium hydroxide 400 mg/5 mL 30 ml PO Q72H PRN CONS TIPATION #0 09/11/15 05/01/25 oral suspension (Milk of Magnesia) mL multivitamin with minerals 1 tab PO QDAY ##0 09/11/15 05/01/25 ascorbic acid (vitamin C) 500 mg 500 mg PO BID 9 05/01/25 tablet atorvastatin 20 mg/5 mL (4 mg/mL) 20 mg PO QDAY 05/01/25 oral suspension (AtorvaliQ) brimonidine 0.2 % eye drops 1 drp ophthalmic (eye) HS 05/01/25 05/01/25 diphenhydramine HCl 25 mg capsule 25 mg PO Q8H PRN all ergy symptoms 05/01/25 05/01/25 (Allergy (diphenhydramine)) divalproex 250 mg tablet,extended 250 mg PO BID 05/01/25 release 24 hr (Depakote ER) hydrocodone 10 mg-acetaminophen 1 tab PO Q8H 05/01/25 05/01/25 325 mg tablet hydroxyzine HCl 25 mg tablet 25 mg PO BID 05/01/25 lasix 40 mg PO DAILY 05/01/2504/03 loperamide 2 mg tablet 4 mg PO Q6H PRN loose stool 05/01/25 05/01/25 loratadine 10 mg tablet 10 mg PO Q24H 05/01/2505/01 melatonin 3 mg capsule 3 mg PO HS PRN sleep 5 05/01/25 metoprolol succinate 50 mg 50 mg PO QDAY 05/01/2504/03 tablet,extended release 24 hr Held on 05/11/25. Instructions: Resume on 05/31/25. Hold until you see assistant winemaker. ondansetron HCl 4 mg tablet 4 mg PO Q6H 05/01/2505/01 polyethylene glycol 3350 17 gram 17 g PO QDAY 05/01/25 05/01/25 oral powder packet potassium chloride 10 mEq 10 meq PO BID 05/01/2505/01 tablet,extended release psyllium husk 0.52 gram capsule 0.52 g PO BID 05/01/25 05/01/25 (Fiber Laxative (psyllium husk)) ropinirole 1 mg tablet 1 mg PO QDAY 05/01/25 sennosides 8.6 mg-docusate sodium 2 tab-cap PO BID 05/01/25 50 mg tablet (Senna-S) sodium phosphates 19 gram-7 118 ml MN QDAY PRN constip ation 05/01/25 05/01/25 gram/118 mL enema (Enema) Previous Rx's ?Medication ?Instructions ?Recorded diphenoxylate-atropine 2.5 1 tab PO BID #6 tabs 01/14/ 20 mg-0.025 mg tablet metoprolol succinate 25 mg 50 mg (2 x 25 mg) PO QDAY # 0 tabs 07/10/23 tablet,extended release 24 hr Held on 05/11/25. Instructions: Resume on 05/31/25. Hold until you see assistant winemaker. amiodarone 200 mg tablet 200 mg PO BID 30 days #60 ta bs 05/11/25 apixaban 5 mg tablet (Eliquis) 5 mg PO BID 30 days #60 tabs 05/11/25 Allergies Allergy/AdvReac Type Severity Reaction Status Date / Time Cephalexin Monohydrate Allergy Severe Anaphylaxis Verified 05/17/25 12:12 sulfamethoxazole Allergy Severe Anaphylaxis Verified 05/17/25 12:12 trimethoprim Allergy Severe Anaphylaxis Verified 05/17/25 12:12 Review of Systems Review of Systems Narrative Review of Systems: GEN: No fever, no chills, no weight loss EYES: No discharge, no visual changes, no pain HEENT: No ear pain, no congestion, no sore throat PULM: + shortness of breath, no cough, no congestion CV: No chest pain, no dyspnea on exertion, no palpitations GI: No nausea, no vomiting, no diarrhea, no pain, no constipation : No frequency, no urgency, no dysuria MUSC/SKEL: No joint pain, no back pain SKIN: No rash PSYCH: No hallucinations, no depression HEME/LYMPH: No easy bleeding or bruising tendencies NEURO: No weakness, no headache ED Exam Narrative Physical exam: [General: Obese in mild discomfort but not in any acute distress Head normocephalic HEENT: Eyes pupils are PERRLA EOMs are intact mouth pink dry membranes uvula is midline swallow symmetrical phonation is normal. All of the subsystems of HEENT are within acceptable limits Neck is supple nontender no JVD Chest equal chest rise nontender to palpation Respiratory: Significantly diminished in the bases by the base basilarly crackles in the upper lobes. CV: Rate rhythm is regular no murmurs rubs or clicks Abdomen is grossly distended secondary to body habitus soft nontender no masses positive bowel sounds all 4 quadrants Back: No CVA tenderness no spinous process tenderness from cervical spine thoracic and lumbar spine Skin: Open lesions on the left lower extremity/foot. Otherwise skin is intact no petechiae rash induration ulceration or crepitus Extremities: Hemiaplasia. Right upper extremity and right lower extremity moving 2 out of 5 strength secondary to deconditioning. Neuro: Awake alert oriented x2, person and place, Glascow coma 15 no focal deficits] Course Course Course Narrative: At 1330, patient's case and clinical presentation laboratory results was discussed with Dr Landry who agrees to order emergent dialysis within the hospital. Patient remains on high flow oxygen to maintain oxygen saturations greater than 93% Rapid called on the patient during dialysis at approximately 1540, I responded with Dr. Anne the attending, the patient is desaturated and is now being put on high flow and they will initiate dialysis patient continues to be awake and alert. At this times patient case laboratory findings and clinical presentation was presented to Dr. Anne agrees to accept the patient for admission from dialysis for hypoxemia shortness of breath ESRD. Patient is in agreement with this plan Quality Measures none Orders Category Date Time Status Admit to Inpatient Status Routine Admission 05/17/25 15:42 Active Patient Condition Routine Admission 05/17/25 15:42 Ordered Dialysis [Hemodialysis] Urgent Care 05/17/25 13:44 Active EKG (ED ONLY) *Do not use* NOW Care 05/17/25 12:09 Completed Glucose [Bedside Blood Glucose] NOW Care 05/17/25 14:32 Active Notify provider NEEDED Care 05/17/25 15:42 Active EKG (ED Only) Stat Exams 05/17/25 12:09 Draft XR chest 1V Stat Exams 05/17/25 12:08 Completed ABG [Arterial Blood Gas] Stat Lab 05/17/25 15:40 Received B-Type Natriuretic Peptide Stat Lab 05/17/25 12:38 Completed CBC Stat Lab 05/17/25 12:38 Completed Comprehensive Metabolic Panel Stat Lab 05/17/25 12:38 Completed Drug Screen,Urine Stat Lab 05/17/25 12:24 Completed LDH (Lactate Dehydrogenase) Stat Lab 05/17/25 12:38 Completed Lactate (Lactic Acid) Stat Lab 05/17/25 15:39 Ordered Magnesium Stat Lab 05/17/25 12:38 Completed Partial Thromboplastin Time Stat Lab 05/17/25 12:38 Completed Prothrombin Time with INR Stat Lab 05/17/25 12:38 Completed Troponin I Stat Lab 05/17/25 12:38 Completed Urinalysis, C/S if Indicated Stat Lab 05/17/25 12:24 Completed Urine Culture Stat Lab 05/17/25 12:24 Received ALBUTEROL RT 0.5ml [Proventil Rt 0.5ml] Med 05/17/25 13:24 Discontinued 10 mg INH X1 ONE Albumin Human 25% Ivpb [Albuminar-25 Ivpb] Med 05/17/25 13:44 Active 25 gm in 100 ml IV PRN Albuterol/Ipratr Rt Cristina [Duoneb Rt Cristina] Med 05/17/25 15:29 Discontinued 3 ml .ROUTE .STK-MED ONE Calcium Gluconate 10% Inj Med 05/17/25 13:24 Discontinued 1 gm IV X1 ONE Dextrose 50% Syr [D50w Syringe Abboject] Med 05/17/25 13:24 Discontinued 50 ml IVP X1 ONE Dextrose 50% Syr [D50w Syringe Abboject] Med 05/17/25 14:51 Discontinued 50 ml IVP X1 ONE Ondansetron Odt [Zofran Odt] Med 05/17/25 13:17 Discontinued 4 mg PO X1 ONE Pantoprazole Inj [Protonix Inj] Med 05/17/25 15:39 Discontinued 40 mg IVP X1 ONE Prochlorperazine Inj [Compazine Inj] Med 05/17/25 15:40 Discontinued 10 mg IVP X1 ONE Sodium Chloride Rt Cristina 0.9% [NS Rt Cristina 0.9%] Med 05/17/25 13:24 Active 3 ml INH PRN PRN Code Status Routine Oth 05/17/25 15:42 Ordered EKG (RT) Stat RT 05/17/25 15:41 Ordered Vital Signs Vital signs: Vital Signs Temperature 97.9 F 05/17/25 12:26 Pulse Rate 112 H 05/17/25 12:26 Respiratory Rate 22 H 05/17/25 12:26 Blood Pressure 114/88 H 05/17/25 12:26 Pulse Oximetry (%) 100 05/17/25 12:26 Oxygen Delivery Method Oxy Mask 05/17/25 12:26 Oxygen Flow Rate 15 05/17/25 12:26 Discharge Plan Plan Patient Disposition: Other Care w/in Hosp (SDC/CHIQUIS) Patient condition on transfer: Stable Prescriptions/Referrals Prescriptions/Med Rec: No Action levothyroxine 50 mcg Tablet 50 mcg PO QDAY Qty: 0 magnesium hydroxide [Milk of Magnesia] 30 ML/CUP suspension 30 ml PO Q72H PRN (Reason: CONSTIPATION) Qty: 0 multivitamin with minerals Tablet 1 tab PO QDAY Qty: 0 ascorbic acid (vitamin C) 500 mg Tablet 500 mg PO BID diphenoxylate-atropine 2.5-0.025 mg Tablet 1 tab PO BID Qty: 6 0RF metoprolol succinate 25 mg Tablet Extended Release 24 Hr 50 mg PO QDAY Qty: 0 0RF ondansetron HCl 4 mg tablet 4 mg PO Q6H hydrocodone-acetaminophen 10-325 mg tablet 1 tab PO Q8H metoprolol succinate 50 mg tablet extended release 24 hr 50 mg PO QDAY ropinirole 1 mg tablet 1 mg PO QDAY lasix 40 mg PO DAILY hydroxyzine HCl 25 mg tablet 25 mg PO BID loratadine 10 mg tablet 10 mg PO Q24H sennosides-docusate sodium [Senna-S] 8.6-50 mg tablet 2 tab-cap PO BID potassium chloride 10 mEq tablet extended release 10 meq PO BID divalproex [Depakote ER] 250 mg tablet extended release 24 hr 250 mg PO BID psyllium husk [Fiber Laxative (psyllium husk)] 0.52 gram capsule 0.52 g PO BID brimonidine 0.2 % drops 1 drp ophthalmic (eye) HS Rx Instructions: administer approximately 8 hours apart polyethylene glycol 3350 17 gram powder in packet 17 g PO QDAY AtorvaliQ 20 mg/5 mL (4 mg/mL) suspension 20 mg PO QDAY Rx Instructions: administer on an empty stomach, at least 1 hour before or 2 hours after food/meal(s) melatonin 3 mg capsule 3 mg PO HS PRN (Reason: sleep) diphenhydramine HCl [Allergy (diphenhydramine)] 25 mg capsule 25 mg PO Q8H PRN (Reason: allergy symptoms) loperamide 2 mg tablet 4 mg PO Q6H PRN (Reason: loose stool) Enema 19-7 gram/118 mL enema 118 ml MN QDAY PRN (Reason: constipation) amiodarone 200 mg tablet 200 mg PO BID 30 Days Qty: 60 0RF Eliquis 5 mg tablet 5 mg PO BID 30 Days Qty: 60 0RF Referrals: No Primary/Family,Physician [Primary Care Provider] - In 1 week Problem List Clinical Impression: Hypoxemia, Shortness of breath, ESRD (end stage renal disease) Patient/Caregiver Discharge Instructions Print Language: British Stand Alone Forms: Amita Award Info., Patient Portal Info Letter PA/SPINNING DOFFER Supervising Physician PA/SPINNING DOFFER Supervising Physician: Bari BALLESTEROS Clinical Information Provided by patient and EMS Medical Records Reviewed [facility] and EMS Meds/Rx Considered, not Ordered None Chronic Illness/Social Conditions Add or document further as needed: ESRD CVA resulting hemiaplasia EKG EKG Interpretation narrative: EKG performed at 1232 shows a ventricular rate of 108 QRS of 148 QTc of 451 this is A-fib with RVR. When compared and old EKG from May 08 this is unchanged rhythm. Lab Interpretation Lab(s) interpretation(s): CBC shows a leukocytosis of 15.3 and H&H of 11.0 and 38.1 respectively. No thrombocytopenia Coags show PT of 17.2 INR 1.6 36.7 PTT K of 6.1 chloride of 97 CO2 less than 10 gap of 32 BUN of 27 creatinine 4.1 Glucose of 42 No transaminitis or T. bili elevation LDH of 337 Troponin of 0.023 BNP of 1945. Urine shows positive ketones 3+ blood leukocyte esterase positive RBCs at 82 WBCs at 1392 no bacteria. UDS is opiate positive. Medication Administration(s) Medication Administration History Albumin Human (Albuminar-25 Ivpb) 25 gm in 100 mls @ 100 mls/min IV PRN PRN PRN Reason: DIALYSIS Sodium Chloride (Sodium Chloride Rt Cristina 0.9% 3 Ml Nebu) 3 ml INH PRN PRN PRN Reason: SOLN Stop: 06/16/25 13:23 Last Admin: 05/17/25 13:36 Dose: 3 ml Documented By: EV Discontinued Medications Albuterol (Albuterol Rt 2.5 Mg/0.5 Ml Nebu) 10 mg INH X1 ONE Stop: 05/17/25 13:25 Last Admin: 05/17/25 13:35 Dose: 10 mg Documented By: EV Albuterol/Ipratropium (Albuterol/Ipratropium (Duoneb) Rt Cristina 3 Ml Nebu) Confirm Administered Dose 3 ml .ROUTE .STK-MED ONE Stop: 05/17/25 15:30 Calcium Gluconate (Calcium Gluconate 10% Inj 1 Gm/10 Ml Vial) 1 gm IV X1 ONE Stop: 05/17/25 13:25 Last Admin: 05/17/25 13:45 Dose: 1 gm Documented By: LATONYA Dextrose (Dextrose 50%-Water Inj 50 Ml Syringe) 50 ml IVP X1 ONE Stop: 05/17/25 13:25 Last Admin: 05/17/25 13:45 Dose: 50 ml Documented By: LATONYA Dextrose (Dextrose 50%-Water Inj 50 Ml Syringe) 50 ml IVP X1 ONE Stop: 05/17/25 14:52 Last Admin: 05/17/25 14:56 Dose: 50 ml Documented By: LATONYA Ondansetron HCl (Ondansetron Odt 4 Mg Tabrap) 4 mg PO X1 ONE; Protocol Stop: 05/17/25 13:18 Last Admin: 05/17/25 13:21 Dose: 4 mg Documented By: LATONYA Pantoprazole Sodium (Pantoprazole Inj 40 Mg Vial) 40 mg IVP X1 ONE Stop: 05/17/25 15:40 Last Admin: 05/17/25 15:45 Dose: 40 mg Documented By: KORIN Prochlorperazine Edisylate (Prochlorperazine Inj 5 Mg/Ml Vial 2 Ml) 10 mg IVP X1 ONE; Protocol Stop: 05/17/25 15:41 Last Admin: 05/17/25 15:47 Dose: 10 mg Documented By: KORIN
[2025-05-17 12:29] LABS: Collection Type, Urine Clean Catch; Squamous Epithelial Cell,Urine 0 /hpf (0-5)
[2025-05-17 12:44] LABS: Amphetamine/Methamp Scrn,U Negative (Negative); Barbiturate Screen,Urine Negative (Negative); Benzodiazepines Screen,Urine Negative (Negative); Benzoylecgonine Screen, Ur Negative (Negative); Fentanyl Screen,Urine Negative (Negative); Opiate Screen,Urine Positive (Negative); THC Screen,Urine Negative (Negative)
[2025-05-17 12:57] LABS: Basophils # (Auto) 0.0 Thou/mm3 (0.0-0.2); Basophils % (Auto) 0 % (0-2.5); Eosinophils # (Auto) 0.0 Thou/mm3 (0.0-0.5); Eosinophils % (Auto) 0 % (0-10); Hematocrit 38.1 % (36.0-46.0); Hemoglobin 11.0 g/dL (12.0-16.0); Immature Granulocytes Auto 0.23 Thou/mm3 (0.00-0.00); Lymphocytes # (Auto) 1.5 Thou/mm3 (1.0-4.8); Lymphocytes % (Auto) 10 % (10-50); Mean Corpuscular HGB Conc 28.9 g/dl (31.0-37.0); Mean Corpuscular Hemoglobin 32.6 pg (25.0-35.0); Mean Corpuscular Volume 113 fL (80-100); Monocytes # (Auto) 0.7 Thou/mm3 (0.0-0.8); Monocytes % (Auto) 5 % (0-12); Neutrophils # (Auto) 12.9 Thou/mm3 (1.8-7.7); Neutrophils % (Auto) 84 % (37-80); Nucleated Red Blood Cell # 0.05 Thou/mm3 (0.00-0.00); Nucleated Red Blood Cell % 0 /100 WBC (0); Platelet Count 201 Thou/mm3 (140-440); RDW Standard Deviation 91.3 fL (36.4-46.3); Red Blood Count 3.37 Miln/mm3 (4.00-5.20); White Blood Count 15.3 Thou/mm3 (3.6-11.0)
[2025-05-17 13:10] LABS: Bilirubin,Urine Negative (Negative); Blood,Urine 3+ (Negative); Glucose, Urine Negative (Negative); Ketones,Urine 1+ (Negative); Leukocyte Esterase,Urine Positive (Negative); Nitrite,Urine Negative (Negative); PH,Urine 5.5 (5.0-7.0); Protein,Urine 1+ (Neg - Trace); RBC,Urine 82 /hpf (0-3); Specific Gravity,Urine 1.010 (1.001-1.035); Urobilinogen,Urine Negative mg/dL (0.0-1.0); WBC,Urine 1329 /hpf (0-5)
[2025-05-17 13:11] LABS: Clarity,Urine Cloudy (Clear/Hazy); Color,Urine Lt-Orange (Lt Yel-Yel); Culture Indicated,Urine Yes
[2025-05-17 13:14] LABS: B-Type Natriuretic Peptide 1945 pg/mL (0-100)
[2025-05-17 13:15] LABS: INR 1.6 (0.9-1.3); Partial Thromboplastin Time 36.7 Seconds (22.0-36.0); Prothrombin Time 17.2 Seconds (9.0-12.2)
[2025-05-17 13:21] LABS: Alanine Aminotransferase 22 U/L (10-49); Albumin, Serum 3.6 gm/dL (3.4-4.8); Albumin/Globulin Ratio 1.2 (1.2-2.2); Alkaline Phosphatase 95 U/L (46-116); Anion Gap 32 (7-16); Aspartate Amino Transferase 19 U/L (0-34); BUN/Creatinine Ratio 7 Ratio (12-20); Bilirubin,Total 0.4 mg/dL (0.3-1.2); Blood Urea Nitrogen 27 mg/dL (9-23); Calcium 9.5 mg/dL (8.3-10.6); Calcium (Corrected) 9.8 mg/dL (8.5-10.1); Chloride 97 mMol/L (98-107); Creatinine (Component) 4.1 mg/dL (0.6-1.3); Estimated Creatinine Clearance 18.7 mL/min (>60); Globulin 3.0 gm/dL (2.3-3.5); LDH (Lactate Dehydrogenase) 337 U/L (120-246); Magnesium 2.2 mg/dL (1.6-2.6); Osmolality,Calculated 279 (275-295); Sodium 139 mMol/L (136-145); Total Protein 6.6 gm/dL (5.7-8.2); Troponin I 0.023 ng/mL (0.0-0.045); eGFR 12 See Note
[2025-05-17] MEDS: ONDANSETRON ODT 4 MG TABRAP PO (13:21)
[2025-05-17 13:22] LABS: Potassium 6.1 mMol/L (3.4-5.1)
[2025-05-17 13:23] LABS: Carbon Dioxide < 10.0 mMol/L (20.0-31.0); Glucose 42 mg/dL (74-106)
[2025-05-17] MEDS: ALBUTEROL RT 2.5 MG/0.5 ML NEBU 10 MG INH (13:35)
[2025-05-17] MEDS: SODIUM CHLORIDE RT SOL 0.9% 3 ML NEBU INH (13:36)
[2025-05-17] MEDS: CALCIUM GLUCONATE 10% INJ 1 GM/10 ML VIAL IV (13:45)
[2025-05-17] MEDS: DEXTROSE 50%-WATER INJ 50 ML SYRINGE IVP ×2 (13:45→14:56)
--- NOTE | 2025-05-17 15:41 | EKG_ITS ---
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
[2025-05-17] MEDS: PROCHLORPERAZINE INJ 5 MG/ML VIAL 2 ML 10 MG IVP (15:47)
[2025-05-17 15:48] LABS: Base Excess -24 (-3-3); HCO3 4 mEq/L (20-26); Inspired O2, VO2 Liters 15 L/min; O2 Saturation 100 % (91-98); PCO2 15 mmHg (32.0-48.0); PO2 229 mmHg (83-108)
[2025-05-17] MEDS: ALBUTEROL/IPRATROPIUM (Duoneb) RT SOL 3 ML NEBU (15:50)
[2025-05-17 15:51] LABS: Allen Test Performed/OK; Puncture Site Right Radial; pH, Arterial 7.05 (7.35-7.45)
--- NOTE | 2025-05-17 16:14 | PC.NURSE ---
PRE TX PT O2 SAT DECREASED TO 79% ON 9L, O2 INCREASED TO 15L O2 SAT REMAINED LOW AT 82%, RR CALLED AT THAT TIME. W/ ORDER TO CHANGE PT FROM NC TO HIGH FLOW NC AT 25L ORDER CARRIED OUT O2 SAT IMPROVED TO 100%. TX INITIATED, WILL CONT. TO MONITOR
[2025-05-17 16:15] LABS: Lactate (Lactic Acid) 22.0 mMol/L (0.4-2.0)
--- NOTE | 2025-05-17 16:17 | PC.NURSE ---
notified of pt lactic 22
[2025-05-17] MEDS: ALBUMIN HUMAN 25% IVPB 25 GM/100 ML BTL IV ×2 (16:31→17:03)
--- NOTE | 2025-05-17 16:34 | PC.NURSE ---
BP TRENDING DOWN, PT DENIES ALL S/S OF HYPOTENSION. UF GOAL LOWERED TO 1.5L TOLERATED, WILL ADMIN PRN ALBUMIN AND CONT. TO MONITOR
--- NOTE | 2025-05-17 16:48 | PC.NURSE ---
BP LOW PT DENIES ALL COMPLAINTS, UF TURNED OFF. 100ML NS ADMINISTERED, WILL CONT. TO MONITOR
--- NOTE | 2025-05-17 17:02 | PC.NURSE ---
Addendum entered by Jordan Whalen RN 05/17/25 17:10: MD THIBODEAUX W/ ORDER TO ADMINISTER ANOTHER DOSE OF ALBUMIN 25/100ML,AND TYLENOL 650MG, WILL CONT.TO MONITOR Original Note: BP REMAINS LOW, MD THIBODEAUX AT BEDSIDE . MD LYLE NOTIFIED. UF REMAINS OFF.
[2025-05-17] MEDS: ACETAMINOPHEN 325 MG TABLET 650 MG PO (17:05)
--- NOTE | 2025-05-17 17:29 | ESCONSULT_ITS ---
<Statement entered by Luz Marina Arguello MD - 05/22/25 09:34> TOTAL CC TIME: 45 MIN I saw and evaluated the patient. I reviewed the resident?s note and agree with findings and plan as documented in the resident?s note. Upon my evaluation, this patient had a high probability of imminent or life- threatening deterioration due to severe LA, metabolic acidosis resulting in cardiotoxicity and shock which required my direct attention, intervention, and personal management. This time is exclusive of time spent on procedures, which are documented separately if performed. HD normalize pH rule out septic etiology cont investigation to offending meds <Statement entered by Marc Samayoa MD - 05/18/25 07:02> Patient is a 64 years old female with PMH of cerebrovascular accident, atrial fibrillation, heart failure with reduced ejection fraction (25-30% in January 2023), chronic kidney disease (ON dialysis Friday, and Friday), and hypothyroidism was initially admitted to telemetry due to sepsis 2/2 UTI and emergent HD. Her labs showed UTI, severe metabolic acidosis, hyperkalemia. Nephrology was consulted patient was admitted for emergent hemodialysis and was started on meropenem due to prior history of ESBL. While undergoing hemodialysis rapid response was called twice due to hypotension and rapid change of mentation. Patient's lactic acid was 22, pH 7.05. Patient was started on norepinephrine in dialysis room. Due to rapid change of mentation and severe acidosis with possible expectancy of worsening of her condition rapidly patient was intubated and started on mechanical ventilation. Patient was transferred to ICU and was started on CRRT. HPI Data of Consult Requesting Physician: Silvia Anne DO Admitting Provider: Silvia Anne DO Attending Provider: Silvia Anne DO Primary Care Provider: Physician No Primary/Family Consult Narrative History of present illness: (Below account was synthesized primarily from chart checking as patient had already become intubated before this ticket writer's interview) Patient is a 64-year-old F with a PMH of cerebrovascular accident, atrial fibrillation, heart failure with reduced ejection fraction (25-30% in January 2023), chronic kidney disease (ON dialysis Friday, and Friday), and hypothyroidism who was sent from a SNF for worsening oxygen saturation. Of note, patient had apparently missed her Friday HD session. In the ED, vitals showed: BP 114/88 HR 112 RR 22 Temp 97.9 SpO2 100% on 15 L oxy mask with FiO2 100% ED Course: CBC showed WBC 15.3, hemoglobin 11.0 (MCV 113, RDW 91.3), and platelet count 201. Coagulation panel showed PT 17.2, INR 1.6, APTT 36.7. ABG of the right radial artery showed pH 7.05, pCO2 15, PaO2 229, and HCO3 4. CMP showed sodium 139, potassium 6.1, chloride 97, carbon dioxide less than 10.0, anion gap 32, BUN 27, creatinine 4.1, eGFR 12, blood glucose 42, lactic acid 22.0, LDH 337, and BNP 1945. UA showed cloudy, light orange urine with pH 5.5, 1+ protein, 1+ ketones, 3+ blood, negative nitrate, positive leukocyte esterase, RBC 82, and WBC 1329. UDS was positive for opiates (patient received fentanyl in the hospital) and negative for all else. Imagin/16 chest x-ray showed mild enlargement of the cardiac contour and prominent vascular congestion suggestive of mild heart failure but without riccardo pulmonary edema or lobar pneumonia. 05/17 EKG showed atrial fibrillation with rapid ventricular response and heart rate 111, marked left axis deviation and bundle branch block, and QTc 492. Initially, a rapid response had been called around 16:30 for worsening SpO2 of 78% and patient was switched from oxy mask to high flow nasal cannula which improved her SpO2 to 92%. At that time, Nephrology (Dr. Landry) was consulted and it was recommended that patient begin receiving inpatient HD. Patient was started on dialysis and tolerated it for 30 minutes before developing MAP of 58-61. At this point, HD was paused and over the next 40 minutes patient received IV albumin 25 mL x2 and IV Tylenol for shivering and hypothermia of 96.4 with plans to administer IV meropenem 1 gm post-HD. However, patient's BP did not improve during this reprieve and a second rapid response was called around 17:45 for worsening hypotension of 80/40 and deteriorating mentation (shifting from A&O x 2 to responding only to sternal rub). Due to the above, ICU was contacted and patient was upgraded from Telemetry to ICU for pressor support with Levophed and intubation (induction agent: IV etomidate 30 mg, muscle relaxant: IV rocuronium 100 mg) in the setting of suspected septic shock 2/2 UTI. Central femoral line has been placed successfully but arterial line was unable to be installed. Patient's person to notify, Damian Hopkins (son), was called and informed about patient's diagnosis, current acute status, and admission into the ICU. cc:: cc: Silvia Anne DO Review of Systems Review of Systems ROS Unobtainable: unobtainable due to mental status and due to endotracheal tube Past Medical History Past Medical History Comments PMH COMMENT: unobtainable due to mental status and endotracheal intubation Exam Vital Signs Temp Pulse Resp BP Pulse Ox O2 Del Method O2 Flow Rate 96.9 F 50 L 24 H 98/45 L 100 Oxy Mask 05/17/25 13:47 05/17/25 17:15 05/17/25 15:50 05/17/25 17:15 05/17/25 15:50 05/17/25 12:26 05/17/25 15:50 FiO2 100 05/17/25 15:50 Narrative Exam Gen: Intubated, appears older than stated age, vitals reviewed Head/Neck: NCAT; trachea appears midline, no gross LAD ENT: Anicteric sclerae; MMM Resp: Symmetric chest rise, on vent CV: Irregular, tachycardic rhythm, right IJ temporary dialysis catheter noted with active bleeding GI: Soft, Ext: 4+ pitting edema up to knees bilaterally. No clubbing or cyanosis noted Skin: Lower extremities and feet appear flaky, slightly erythematous, and swollen Neuro/MSK: Appropriate; lines clean & dry Results Labs 05/17/25 12:38 05/17/25 23:07 Labs: Short CBC 05/17/25 Range/Units 12:38 WBC 15.3 H D (3.6-11.0) Thou/mm3 Hgb 11.0 L D (12.0-16.0) g/dL Hct 38.1 (36.0-46.0) % Plt Count 201 (140-440) Thou/mm3 BMP 05/17/25 12:38 Sodium 139 Potassium 6.1 H* Chloride 97 L Carbon Dioxide < 10.0 L* BUN 27 H Creatinine 4.1 H* D Glucose 42 L* Calcium 9.5 Cardiac Enzymes 05/17/25 Range/Units 12:38 Troponin I 0.023 (0.0-0.045) ng/mL Liver Function 05/17/25 Range/Units 12:38 Total Bilirubin 0.4 (0.3-1.2) mg/dL AST 19 (0-34) U/L ALT 22 (10-49) U/L Alkaline Phosphatase 95 (46-116) U/L Albumin 3.6 (3.4-4.8) gm/dL Urine 05/17/25 Range/Units 12:24 Urine Color Lt-Ritchie A (Lt Yel-Yel) Urine Clarity Cloudy A (Clear/Hazy) Urine pH 5.5 (5.0-7.0) Ur Specific [place] 1.010 (1.001-1.035) Urine Protein 1+ A (Neg - Trace) Urine Glucose (UA) Negative (Negative) ABG Interpretation ABG results: 05/17/25 15:40 ABG pH 7.05 L* ABG pCO2 15 L* ABG pO2 229 H ABG HCO3 4 L* ABG O2 Saturation 100 H ABG Base Excess -24 L Quality Measures Quality Measures none Medications Home Medications and Allergies Home Medications ?Medication ?Instructions ?Recorded ?Confirmed ?Type levothyroxine 50 mcg tablet 50 mcg PO QDAY #0 tabs 06/1605/17/25 History magnesium hydroxide 400 mg/5 mL 30 ml PO Q72H PRN CONS TIPATION #0 09/11/15 05/01/25 History oral suspension (Milk of Magnesia) mL multivitamin with minerals 1 tab PO QDAY ##0 09/11/15 05/17/25 History ascorbic acid (vitamin C) 500 mg 500 mg PO BID 9 05/17/25 History tablet atorvastatin 20 mg/5 mL (4 mg/mL) 20 mg PO QDAY 05/01/25 History oral suspension (AtorvaliQ) brimonidine 0.2 % eye drops 1 drp ophthalmic (eye) HS 05/01/25 05/01/25 History diphenhydramine HCl 25 mg capsule 25 mg PO Q8H PRN all ergy symptoms 05/01/25 05/01/25 History (Allergy (diphenhydramine)) divalproex 250 mg tablet,extended 250 mg PO TID 05/17/25 History release 24 hr (Depakote ER) hydrocodone 10 mg-acetaminophen 1 tab PO Q8H 05/01/25 05/01/25 History 325 mg tablet hydroxyzine HCl 25 mg tablet 25 mg PO BID 05/01/25 History lasix 40 mg PO DAILY 05/01/2504/03 History loperamide 2 mg tablet 4 mg PO Q6H PRN loose stool 05/01/25 05/01/25 History loratadine 10 mg tablet 10 mg PO Q24H 05/01/2505/01 History melatonin 3 mg capsule 3 mg PO HS PRN sleep 5 05/17/25 History metoprolol succinate 50 mg 50 mg PO QDAY 05/01/2504/03 History tablet,extended release 24 hr Held on 05/11/25. Instructions: Resume on 05/31/25. Hold until you see textile machinery sales representative. ondansetron HCl 4 mg tablet 4 mg PO Q6H 05/01/2505/01 History polyethylene glycol 3350 17 gram 17 g PO QDAY 05/01/25 05/01/25 History oral powder packet potassium chloride 10 mEq 10 meq PO BID 05/01/2505/01 History tablet,extended release psyllium husk 0.52 gram capsule 0.52 g PO BID 05/01/25 05/01/25 History (Fiber Laxative (psyllium husk)) ropinirole 1 mg tablet 1 mg PO QDAY 05/01/25 History sennosides 8.6 mg-docusate sodium 2 tab-cap PO BID 05/01/25 History 50 mg tablet (Senna-S) sodium phosphates 19 gram-7 118 ml RI QDAY PRN constip ation 05/01/25 05/01/25 History gram/118 mL enema (Enema) Allergies Allergy/AdvReac Type Severity Reaction Status Date / Time Cephalexin Monohydrate Allergy Severe Anaphylaxis Verified 05/17/25 12:12 sulfamethoxazole Allergy Severe Anaphylaxis Verified 05/17/25 12:12 trimethoprim Allergy Severe Anaphylaxis Verified 05/17/25 12:12 Visit Medications Acetaminophen (Acetaminophen 325 Mg Tablet) 650 mg PO Q6H PRN PRN Reason: PAIN OR FEVER > 100.4 Stop: 06/16/25 15:47 Last Admin: 05/17/25 17:05 Dose: 650 mg Amiodarone HCl (Amiodarone Hcl 200 Mg Tablet) 200 mg PO BID RIANNA Stop: 06/16/25 20:59 Dextrose (Dextrose 50%-Water Inj 50 Ml Syringe) 25 ml IV Q15MIN PRN PRN Reason: BG 50-70 responsive npo pt Stop: 06/16/25 16:03 Dextrose (Dextrose 50%-Water Inj 50 Ml Syringe) 50 ml IV Q15MIN PRN PRN Reason: BG <50 OR BG <70 & pt unresponsive Stop: 06/16/25 16:03 Divalproex Sodium (Divalproex Sod Ec 125 Mg Tabec) 250 mg PO TID [facility] Stop: 06/16/25 21:59 Enoxaparin Sodium (Enoxaparin Sod Inj 40 Mg/0.4 Ml Syringe) 40 mg SC QDAY [facility] Stop: 06/01/25 08:59 Glucagon (Glucagon Inj 1 Mg Vial) 1 mg IM Q15MIN PRN PRN Reason: BG <70, and no IV access Heparin Sodium (Porcine) (Heparin Sod Inj 1000 Unit/Ml Vial 10 Ml) 3,300 unit INDWELLCAT PRN PRN PRN Reason: DIALYSIS Stop: 05/31/25 16:11 Albumin Human (Albuminar-25 Ivpb) 25 gm in 100 mls @ 100 mls/min IV PRN PRN PRN Reason: DIALYSIS Last Admin: 05/17/25 17:03 Dose: 100 mls/min Meropenem 500 mg/ Sodium (Chloride) 50 mls @ 100 mls/hr IV QDAY [facility] Stop: 05/25/25 08:59 Norepinephrine/Dextrose (Levophed In D5w 8mg/250ml) 8 mg in 250 mls @ 9.521 mls/hr IV .Q24H PRN; Protocol PRN Reason: PER PROTOCOL Stop: 06/16/25 17:25 Insulin Human Lispro (Insulin Lispro (Admelog) 1 Unit/0.01 Ml Unit) 0 unit SC AC [facility]; Protocol Stop: 06/16/25 16:59 Levothyroxine Sodium (Levothyroxine Sodium 25 Mcg Tablet) 50 mcg PO ACBR [facility] Stop: 06/17/25 05:59 Melatonin (Melatonin 3 Mg Tablet) 3 mg PO HS PRN PRN Reason: sleep Multivitamins (Multivitamins Tablet) 1 tab PO QDAY RIANNA Stop: 06/17/25 08:59 Scopolamine (Scopolamine 1 Mg Tdsy) 1 mg TOP Q3D RIANNA Stop: 06/16/25 15:59 Sodium Chloride (Sodium Chloride Rt Cristina 0.9% 3 Ml Nebu) 3 ml INH PRN PRN PRN Reason: SOLN Stop: 06/16/25 13:23 Last Admin: 05/17/25 13:36 Dose: 3 ml Discontinued Medications Albuterol (Albuterol Rt 2.5 Mg/0.5 Ml Nebu) 10 mg INH X1 ONE Stop: 05/17/25 13:25 Last Admin: 05/17/25 13:35 Dose: 10 mg Calcium Gluconate (Calcium Gluconate 10% Inj 1 Gm/10 Ml Vial) 1 gm IV X1 ONE Stop: 05/17/25 13:25 Last Admin: 05/17/25 13:45 Dose: 1 gm Dextrose (Dextrose 50%-Water Inj 50 Ml Syringe) 50 ml IVP X1 ONE Stop: 05/17/25 13:25 Last Admin: 05/17/25 13:45 Dose: 50 ml Dextrose (Dextrose 50%-Water Inj 50 Ml Syringe) 50 ml IVP X1 ONE Stop: 05/17/25 14:52 Last Admin: 05/17/25 14:56 Dose: 50 ml Sodium Bicarbonate 88.23 meq/ (Dextrose) 588.23 mls @ 100 mls/hr IV .Q5H53M [facility] Stop: 06/16/25 16:11 Meropenem 1,000 mg/ Sodium (Chloride) 50 mls @ 100 mls/hr IV X1 ONE; Protocol Stop: 05/17/25 16:49 Ondansetron HCl (Ondansetron Odt 4 Mg Tabrap) 4 mg PO X1 ONE; Protocol Stop: 05/17/25 13:18 Last Admin: 05/17/25 13:21 Dose: 4 mg Pantoprazole Sodium (Pantoprazole Inj 40 Mg Vial) 40 mg IVP X1 ONE Stop: 05/17/25 15:40 Last Admin: 05/17/25 15:45 Dose: 40 mg Prochlorperazine Edisylate (Prochlorperazine Inj 5 Mg/Ml Vial 2 Ml) 10 mg IVP X1 ONE; Protocol Stop: 05/17/25 15:41 Last Admin: 05/17/25 15:47 Dose: 10 mg Assessment & Plan Plan Patient is a 64-year-old F with a PMH of cerebrovascular accident, atrial fibrillation, heart failure with reduced ejection fraction (25-30% in January 2023), chronic kidney disease (ON dialysis Friday, and Friday), and hypothyroidism who was sent from a SNF for worsening oxygen saturation. Of note, patient had apparently missed her Friday HD session. Initially, a rapid response had been called around 16:30 for worsening SpO2 of 78% and patient was switched from Oxygen Mask to 15 L high-flow nasal cannula which improved her SpO2 to 92%. At that time, Nephrology (Dr. Landry) was consulted and it was recommended that patient begin receiving inpatient HD. Patient was started on dialysis and tolerated it for 30 minutes before developing MAP of 58-61. At this point, HD was paused and over the next 40 minutes patient received IV albumin 25 mL x2 and IV Tylenol for shivering and hypothermia of 96.4 with plans to administer IV meropenem 1 gm post-HD. However, patient's BP did not improve during this reprieve and a second rapid response was called around 17:45 for worsening hypotension of 80/40 and deteriorating mentation (shifting from A&O x 2 to responding only to sternal rub). Due to the above, ICU was contacted and patient was upgraded from Telemetry to ICU for pressor support with Levophed and intubation (induction agent: IV etomidate 30 mg, muscle relaxant: IV rocuronium 100 mg) in the setting of suspected septic shock 2/2 UTI. Central femoral line has been placed successfully but arterial line was unable to be installed. Patient's person to notify, Damian Hopkins (son), was called and informed about patient's diagnosis, current acute status, and admission into the ICU. NEURO #Acute encephalopathy, likely multifactorial DDx: septic encephalopathy, hypoglycemia-related encephalopathy, other metabolic encephalopathy, hypoperfusion-related cerebral dysfunction, AMS 2/2 UTI, hospital associated-delirium Dx: -ABG of the right radial artery showed pH 7.05, pCO2 15, PaO2 229, and HCO3 4. -CMP showed sodium 139, potassium 6.1, chloride 97, carbon dioxide less than 10.0, anion gap 32, BUN 27, creatinine 4.1, eGFR 12, blood glucose 42, lactic acid 22.0, LDH 337, and BNP 1945. -UA showed cloudy, light orange urine with pH 5.5, 1+ protein, 1+ ketones, 3+ blood, negative nitrate, positive leukocyte esterase, RBC 82, and WBC 1329. -UDS was positive for opiates (patient received fentanyl in the hospital) and negative for all else. Rx: -Intubated for airway protection -Sedation for comfort and maintenance of RASS -2 as detailed below -Treat patient's other underlying pathological processes and electrolyte derangements RRx: -Patient had initially been A&O x 2 but became rapidly obtunded to the point of responding only to sternal rub #Chemical sedation Patient is currently being chemically sedated with IV fentanyl prn titrated to maintain RASS of -2 for comfort while she remains intubated Rx: -Daily SATs (sedation vacation) -Daily SBTs, if deemed appropriate, to shorten patient's time on ventilatory support RRx: -Continue to monitor results of SATs and SBTs in order to guide timeline for weaning off of sedation and intubation CARDIO #Septic shock #Hypotension, requiring pressor support During dialysis, patient developed a MAP of 58-61 and acute hypotension of 80/40 that was refractory to IV albumin and required pressor support DDx: cardiogenic shock (EF 25-30%), hypotension 2/2 atrial fibrillation with RVR, intravascular depletion Dx: -ABG of the right radial artery showed pH 7.05, pCO2 15, PaO2 229, and HCO3 4. -CMP showed sodium 139, potassium 6.1, chloride 97, carbon dioxide less than 10.0, anion gap 32, BUN 27, creatinine 4.1, eGFR 12, blood glucose 42, lactic acid 22.0, LDH 337, and BMP 1945. Rx: -IV Levophed titrated to maintain MAP>65 -IV meropenem 500 mg qD to treat underlying infectious cause, likely UTI -Central line placed at femoral vein for central access RRx: -Patient did not tolerate inpatient HD make-up session well as evidenced by the significant hypotension of 80/40 she developed #Atrial fibrillation with RVR Per Cardiology note, patient has history of atrial fibrillation on Eliquis and previously took metoprolol XL 50 mg qD for rate control During previous hospitalization, patient experienced bradycardia and hypotension with metoprolol and was started on PO amiodarone 200 mg BID Currently suspect that atrial fibrillation with RVR is 2/2 severe lactic acidosis (LA 22.0) which itself could be due to many causes including any combination of the following: ESBL UTI, CLABSI, bacteremia, adverse medication effect, etc. CHADSVASC score 4, 4.8% stroke risk per year HASBLED 3 Dx: -05/17 EKG showed atrial fibrillation with rapid ventricular response and heart rate 111, marked left axis deviation and bundle branch block, and QTc 492 -Other pertinent labs: lactic acid 22.0, potassium 6.1, CO2 less than 10.0, anion gap 32, BUN 27, creatinine 4.1, blood glucose 42, LDH 337, BNP 1945, ABG blood pH 7.05, HCO3 4 Rx: -Per cardiology recommendations, start IV amiodarone drip protocol for two bags followed by continued IV amiodarone drip @ 1 mg/min to decrease the risk of arrhythmia in the setting of known dilated cardiomyopathy -Per cardiology recommendations, hold anticoagulation agent of PO Eliquis 5 mg BID -Continuous cardiac monitoring in the ICU -Maintain K>4 and Mg>2 RRx: -Will see how well-controlled patient's atrial fibrillation is by the above regimen #HFrEF (EF 15-20%, 04/2025) #Dilated cardiomyopathy Cardiology currently has low suspicion for HFrEF exacerbation Dx: -2022 echocardiogram showed dilated cardiomyopathy, severe global hypokinese with estimated EF of 25-30%, normal RV size, mildly dilated LA, and mild MR -04/2025 echocardiogram shows dilated cardiomyopathy, moderately dilated LV, severe global hypokinesis and severe systolic dysfunction with estimated EF of 15-20%. It also showed normal RV size, reduced systolic function, RA estimated RVSP 45 mmHg, moderate pulmonary hypertension, moderate MR and mild TR, trace to mild AI, severely dilated LA, severely dilated RA, and mildly dilated ascending body measuring 3.9 cm -BNP 1945, Troponin I WNL Rx: -Per cardiology recommendations, plan to initiate GDMT once blood pressure can tolerate it but avoid SGLT-2 inhibitors due to patient's ESRD on HD status -Strict I's & O's and daily weights -Outpatient follow-up with cardiology for further management (may need defibrillator if HFrEF symptoms are refractory to GDMT for over 3 months and cardiac catheterization to rule out CAD as a cause of dilated cardiomyopathy) RRx: -Patient is currently exhibiting 4+ pitting edema and 05/17 repeat CXR seems to show increasing vascular congestion, will continue to monitor patient's fluid status PULM #Acute hypoxic respiratory failure #Compensatory respiratory alkalosis DDx: sepsis-related ARDS, pulmonary edema Dx: -ABG of the right radial artery showed pH 7.05, pCO2 15, PaO2 229, and HCO3 4. -No radiographic evidence of ongoing pneumonia Rx: -Intubated with ventilatory support RRx: -Monitor ABG, oxygenation status, and respiratory effort GI #No active problems NEPHRO #ESRD on HD (//Fri), missed HD session #Hyperkalemia Dx: -ABG of the right radial artery showed pH 7.05, pCO2 15, PaO2 229, and HCO3 4. Rx: -Consulted nephrology, awaiting recommendations (may require CRRT) -Plan to resume HD once hemodynamically stable RRx: -Patient did not tolerate inpatient HD make-up session well as evidenced by the significant hypotension of 80/40 she developed #Lactic acidosis #HAGMA Likely 2/2 a combination of etiologies including tissue hypoperfusion 2/2 septic shock and/or cardiogenic shock, hypoglycemia-induced anaerobic metabolism, missed HD, ESBL UTI or CLABSI, or bacteremia DDx: occult mesenteric ischemia Dx: -ABG of the right radial artery showed pH 7.05, pCO2 15, PaO2 229, and HCO3 4. Rx: -Hemodynamic support as outlined for #Septic shock in Cardio section HEME #Leukocytosis #Macrocytic anemia CBC showed WBC 15.3 and hemoglobin 11.0 (MCV 113, RDW 91.3). Likely 2/2 septic shock 2/2 UTI and reduced erythropoiesis 2/2 ESRD status, respectively Rx: -Continue to monitor CBC ENDO #No active problems ID #Complicated UTI #Pyuria Of note, patient was apparently discharged on 05/11/25 for nausea/vomiting/abdominal pain 2/2 septic shock 2/2 E.coli UTI and also has PMH of ESBL UTI Dx: -UA showed cloudy, light orange urine with pH 5.5, 1+ protein, 1+ ketones, 3+ blood, negative nitrate, positive leukocyte esterase, RBC 82, and WBC 1329. Rx: -IV meropenem 500 mg qD -Follow up on urine cultures to guide antibiotic de-escalation -Follow up on blood cultures RRx: -Monitor for fever, leukocytosis, and urinary symptoms to assess for antibiotic efficacy once patient has been stabilized in the context of breathing and circulation MSK #No active problems SKIN #No active problems Disposition: ICU for pressor support with Levophed and intubation in the setting of suspected septic shock with multiorgan dysfunction 2/2 UTI DVT prophylaxis: None GI prophylaxis: None Diet: NPO Turner: Present Lines: Peripheral IV, Central IV Antibiotics: IV meropenem 500 mg qD CODE STATUS: FULL Patient plan of care was discussed with the attending linoleum mechanic, Dr. Arguello. Jung Beasley, DO Internal Medicine, PGY-1
--- NOTE | 2025-05-17 17:32 | PD.RESCONSUL ---
HPI Data of Consult Requesting Physician: Silvia Anne DO Admitting Provider: Silvia Anne DO Attending Provider: Silvia Anne DO Primary Care Provider: Physician No Primary/Family Consult Narrative History of present illness: Hollie Whaley 64F with pmhx significant for CVA with residual L sided deficits, atrial fibrillation on Xarelto, HFrEF (15-20% 04/2025), [id number], hypothyroidism who presented to [facility] ED on 05/17 for shortness of breath per chart review. At the time patient is extremely lethargic, able to respond to simple questions, no history able to be collected. Per chart review, patient was conversational in the ED and subsequently underwent emergent dialysis. However during dialysis, patient became hypotensive and more confused, subsequently upgraded to ICU and is currently on pressors. Patient recently discharged 05/11 for for abdominal pain, nausea/vomiting for septic shock 2/2 E. coli UTI, found to be severely hyperkalemic, lactic acidosis and oliguric ARIANA 2/2 ATN, where HD was started. During this hospital stay, patient was in ICU for septic shock. PMHx: As above Surgical Hx: None per patient FHx: Denies familial cardiac history, poor historian Social Hx: Former smoker Denies alcohol or recreational/illict drug use, lives at nursing facility with Allergies: cephalexin anaphylaxis, TMP-SMX anaphylaxis Medications: med rec In ED, BP 114/88, HR 112, RR 22, 100% 15L oxymask, WBC 15.3, Hgb 11 MCV 113, PT 17.2, INR 1.6, APTT 36.7, ABG 7.05/15/229/4, K 6.1, bicarb <10, AG 32, BUN 27, Cr 4.1, glucose 42, lactic acid 22, Mg 2.2, LDH 337, trop 0.023, BNP 1945. Cardiology consulted for management of HFrEF. cc:: cc: Silvia Anne DO Review of Systems Review of Systems ROS Unobtainable: unobtainable due to mental status Exam Vital Signs Temp Pulse Resp BP Pulse Ox O2 Del Method O2 Flow Rate 96.9 F 50 L 24 H 98/45 L 100 Oxy Mask 05/17/25 13:47 05/17/25 17:15 05/17/25 15:50 05/17/25 17:15 05/17/25 15:50 05/17/25 12:26 05/17/25 15:50 FiO2 100 05/17/25 15:50 Narrative Exam GENERAL: AOx2 to person and place, in acute distress, appears older than stated age HEENT: NC/AT, mucous membranes moist, bilateral sclera anicteric CARDIOVASCULAR: irregular rhythm, tachycardic, no murmurs able to be appreciated, R IJ TDC in place bleeding PULMONARY: distant breath sounds bilaterally, no rales/rhonchi/wheezes ABDOMINAL: soft, non-tender, non-distended, no rebound/guarding, bowel sounds present EXTREMITIES: trace pitting edema of BLE, L heel wound wrapped, contracture of L hand, 0/5 strength in LUE and LLE, 4/5 strength RUE and RLE SKIN: LLE wound NEURO: alert, following commands Results Labs 05/17/25 12:38 05/17/25 23:07 Labs: Short CBC 05/17/25 Range/Units 12:38 WBC 15.3 H D (3.6-11.0) Thou/mm3 Hgb 11.0 L D (12.0-16.0) g/dL Hct 38.1 (36.0-46.0) % Plt Count 201 (140-440) Thou/mm3 BMP 05/17/25 12:38 Sodium 139 Potassium 6.1 H* Chloride 97 L Carbon Dioxide < 10.0 L* BUN 27 H Creatinine 4.1 H* D Glucose 42 L* Calcium 9.5 Cardiac Enzymes 05/17/25 Range/Units 12:38 Troponin I 0.023 (0.0-0.045) ng/mL Liver Function 05/17/25 Range/Units 12:38 Total Bilirubin 0.4 (0.3-1.2) mg/dL AST 19 (0-34) U/L ALT 22 (10-49) U/L Alkaline Phosphatase 95 (46-116) U/L Albumin 3.6 (3.4-4.8) gm/dL Urine 05/17/25 Range/Units 12:24 Urine Color Lt-Stanly A (Lt Yel-Yel) Urine Clarity Cloudy A (Clear/Hazy) Urine pH 5.5 (5.0-7.0) Ur Specific [place] 1.010 (1.001-1.035) Urine Protein 1+ A (Neg - Trace) Urine Glucose (UA) Negative (Negative) ABG Interpretation ABG results: 05/17/25 15:40 ABG pH 7.05 L* ABG pCO2 15 L* ABG pO2 229 H ABG HCO3 4 L* ABG O2 Saturation 100 H ABG Base Excess -24 L Quality Measures Quality Measures none Medications Home Medications and Allergies Home Medications ?Medication ?Instructions ?Recorded ?Confirmed ?Type levothyroxine 50 mcg tablet 50 mcg PO QDAY #0 tabs 09/10/15 05/17/25 History magnesium hydroxide 400 mg/5 mL 30 ml PO Q72H PRN CONSTIPATION #0 09/11/15 05/01/25 History oral suspension (Milk of Magnesia) mL multivitamin with minerals 1 tab PO QDAY ##0 09/11/15 05/17/25 History ascorbic acid (vitamin C) 500 mg 500 mg PO BID 03/12/19 05/17/25 History tablet atorvastatin 20 mg/5 mL (4 mg/mL) 20 mg PO QDAY 05/01/25 05/01/25 History oral suspension (AtorvaliQ) brimonidine 0.2 % eye drops 1 drp ophthalmic (eye) HS 05/01/25 05/01/25 History diphenhydramine HCl 25 mg capsule 25 mg PO Q8H PRN allergy symptoms 05/01/25 05/01/25 History (Allergy (diphenhydramine)) divalproex 250 mg tablet,extended 250 mg PO TID 05/01/25 05/17/25 History release 24 hr (Depakote ER) hydrocodone 10 mg-acetaminophen 1 tab PO Q8H 05/01/25 05/01/25 History 325 mg tablet hydroxyzine HCl 25 mg tablet 25 mg PO BID 05/01/25 05/01/25 History lasix 40 mg PO DAILY 05/01/25 05/01/25 History loperamide 2 mg tablet 4 mg PO Q6H PRN loose stool 05/01/25 05/01/25 History loratadine 10 mg tablet 10 mg PO Q24H 05/01/25 05/01/25 History melatonin 3 mg capsule 3 mg PO HS PRN sleep 05/01/25 05/17/25 History metoprolol succinate 50 mg 50 mg PO QDAY 05/01/25 05/01/25 History tablet,extended release 24 hr Held on 05/11/25. Instructions: Resume on 05/31/25. Hold until you see mingler operator. ondansetron HCl 4 mg tablet 4 mg PO Q6H 05/01/25 05/01/25 History polyethylene glycol 3350 17 gram 17 g PO QDAY 05/01/25 05/01/25 History oral powder packet potassium chloride 10 mEq 10 meq PO BID 05/01/25 05/01/25 History tablet,extended release psyllium husk 0.52 gram capsule 0.52 g PO BID 05/01/25 05/01/25 History (Fiber Laxative (psyllium husk)) ropinirole 1 mg tablet 1 mg PO QDAY 05/01/25 05/01/25 History sennosides 8.6 mg-docusate sodium 2 tab-cap PO BID 05/01/25 05/01/25 History 50 mg tablet (Senna-S) sodium phosphates 19 gram-7 118 ml IA QDAY PRN constipation 05/01/25 05/01/25 History gram/118 mL enema (Enema) Allergies Allergy/AdvReac Type Severity Reaction Status Date / Time Cephalexin Monohydrate Allergy Severe Anaphylaxis Verified 05/17/25 12:12 sulfamethoxazole Allergy Severe Anaphylaxis Verified 05/17/25 12:12 trimethoprim Allergy Severe Anaphylaxis Verified 05/17/25 12:12 Visit Medications Acetaminophen (Acetaminophen 325 Mg Tablet) 650 mg PO Q6H PRN PRN Reason: PAIN OR FEVER > 100.4 Stop: 06/16/25 15:47 Last Admin: 05/17/25 17:05 Dose: 650 mg Amiodarone HCl (Amiodarone Hcl 200 Mg Tablet) 200 mg PO BID RIANNA Stop: 06/16/25 20:59 Dextrose (Dextrose 50%-Water Inj 50 Ml Syringe) 25 ml IV Q15MIN PRN PRN Reason: BG 50-70 responsive npo pt Stop: 06/16/25 16:03 Dextrose (Dextrose 50%-Water Inj 50 Ml Syringe) 50 ml IV Q15MIN PRN PRN Reason: BG <50 OR BG <70 & pt unresponsive Stop: 06/16/25 16:03 Divalproex Sodium (Divalproex Sod Ec 125 Mg Tabec) 250 mg PO TID RIANNA Stop: 06/16/25 21:59 Enoxaparin Sodium (Enoxaparin Sod Inj 40 Mg/0.4 Ml Syringe) 40 mg SC QDAY RIANNA Stop: 06/01/25 08:59 Glucagon (Glucagon Inj 1 Mg Vial) 1 mg IM Q15MIN PRN PRN Reason: BG <70, and no IV access Heparin Sodium (Porcine) (Heparin Sod Inj 1000 Unit/Ml Vial 10 Ml) 3,300 unit INDWELLCAT PRN PRN PRN Reason: DIALYSIS Stop: 05/31/25 16:11 Albumin Human (Albuminar-25 Ivpb) 25 gm in 100 mls @ 100 mls/min IV PRN PRN PRN Reason: DIALYSIS Last Admin: 05/17/25 17:03 Dose: 100 mls/min Meropenem 500 mg/ Sodium (Chloride) 50 mls @ 100 mls/hr IV QDAY [facility] Stop: 05/25/25 08:59 Norepinephrine/Dextrose (Levophed In D5w 8mg/250ml) 8 mg in 250 mls @ 9.521 mls/hr IV .Q24H PRN; Protocol PRN Reason: PER PROTOCOL Stop: 06/16/25 17:25 Insulin Human Lispro (Insulin Lispro (Admelog) 1 Unit/0.01 Ml Unit) 0 unit SC AC [facility]; Protocol Stop: 06/16/25 16:59 Levothyroxine Sodium (Levothyroxine Sodium 25 Mcg Tablet) 50 mcg PO ACBR RIANNA Stop: 06/17/25 05:59 Melatonin (Melatonin 3 Mg Tablet) 3 mg PO HS PRN PRN Reason: sleep Multivitamins (Multivitamins Tablet) 1 tab PO QDAY RIANNA Stop: 06/17/25 08:59 Scopolamine (Scopolamine 1 Mg Tdsy) 1 mg TOP Q3D RIANNA Stop: 06/16/25 15:59 Sodium Chloride (Sodium Chloride Rt Cristina 0.9% 3 Ml Nebu) 3 ml INH PRN PRN PRN Reason: SOLN Stop: 06/16/25 13:23 Last Admin: 05/17/25 13:36 Dose: 3 ml Discontinued Medications Albuterol (Albuterol Rt 2.5 Mg/0.5 Ml Nebu) 10 mg INH X1 ONE Stop: 05/17/25 13:25 Last Admin: 05/17/25 13:35 Dose: 10 mg Calcium Gluconate (Calcium Gluconate 10% Inj 1 Gm/10 Ml Vial) 1 gm IV X1 ONE Stop: 05/17/25 13:25 Last Admin: 05/17/25 13:45 Dose: 1 gm Dextrose (Dextrose 50%-Water Inj 50 Ml Syringe) 50 ml IVP X1 ONE Stop: 05/17/25 13:25 Last Admin: 05/17/25 13:45 Dose: 50 ml Dextrose (Dextrose 50%-Water Inj 50 Ml Syringe) 50 ml IVP X1 ONE Stop: 05/17/25 14:52 Last Admin: 05/17/25 14:56 Dose: 50 ml Sodium Bicarbonate 88.23 meq/ (Dextrose) 588.23 mls @ 100 mls/hr IV .Q5H53M RIANNA Stop: 06/16/25 16:11 Meropenem 1,000 mg/ Sodium (Chloride) 50 mls @ 100 mls/hr IV X1 ONE; Protocol Stop: 05/17/25 16:49 Ondansetron HCl (Ondansetron Odt 4 Mg Tabrap) 4 mg PO X1 ONE; Protocol Stop: 05/17/25 13:18 Last Admin: 05/17/25 13:21 Dose: 4 mg Pantoprazole Sodium (Pantoprazole Inj 40 Mg Vial) 40 mg IVP X1 ONE Stop: 05/17/25 15:40 Last Admin: 05/17/25 15:45 Dose: 40 mg Prochlorperazine Edisylate (Prochlorperazine Inj 5 Mg/Ml Vial 2 Ml) 10 mg IVP X1 ONE; Protocol Stop: 05/17/25 15:41 Last Admin: 05/17/25 15:47 Dose: 10 mg Assessment & Plan Plan Hollie Whaley 64F with pmhx significant for CVA, atrial fibrillation on Xarelto, HFrEF (15-20% 04/2025), newly ESRD on HD (TThSat), hypothyroidism who presented to [facility] ED on 05/17 for SOB, admitted for lactic acidosis with hyperkalemia. Cardiology consulted for management of HFrEF. #Atrial fibrillation RVR 2/2 #Lactic acidosis #Hx of atrial fibrillation Patient has a history of A-fib on Eliquis and previously took metoprolol XL 50 mg QD for rate control and on previous hospitalization, patient experienced bradycardia and hypotension with metoprolol and was started on amiodarone 200 mg BID. Admission labs ABG 7.05/15/229/4, K 6.1, bicarb <10, AG 32, BUN 27, Cr 4.1, glucose 42, lactic acid 22, Mg 2.2, LDH 337, trop 0.023, BNP 1945. EKG shows afib RVR rate 111 with left axis deviation. Patient is currently being intubated and tele in ICU showing atrial fibrillation RVR 120-130s. Atrial fibrillation RVR likely secondary to severe lactic acidosis. Ddx for lactic acidosis includes, ESBL UTI, TDC infection, bacteremia, medication s/e. CHADSVASC score 4, 4.8% stroke risk per year HASBLED 3 Plan: - Start amiodarone drip protocol and to continue at 1 mg/min following second bag for atrial fibrillation and to decrease arrhythmia risk as pt does have dilated cardiomyopathy - Hold anticoagulation of Eliquis 5 mg BID - Telemetry/ICU for cardiac monitoring - Keep K>4 and Mg>2 #HFrEF (15-20% 04/2025) #Dilated cardiomyopathy 2022 Echocardiogram shows dilated cardiomyopathy, severe global hypokinesis with estimated EF 25 to 30%, normal RV size, LA mildly dilated, mild MR. 04/2025 Echocardiogram shows dilated cardiomyopathy, moderately dilated LV, severe global hypokinesis and severe systolic dysfunction estimated EF 15 to 20%. Normal RV size, reduced systolic function. RA estimated RVSP 45 mmHg, moderate pulmonary hypertension, moderate MR and mild TR, trace to mild AI, LA severely dilated, RA severely dilated, mildly dilated ascending body measuring 3.9 cm Plan: - Plan to initiate GDMT once blood pressure tolerates however avoid SGLT2 inhibitors due to current dialysis status - Strict I&O and daily weights - Current low suspicion for HFrEF exacerbation - Continue to follow up outpatient for further management - Will likely need defibrilator due severe HFrEF if pt does not respond to maximum GDMT for more 3 months - Will need cardiac catheterization to rule out CAD as a cause of dilated cardiomyopathy (if not performed before) as outpatient and recommended to follow up with her mingler operator as outpatient #Shock, likely septic #ESRD on HD (//Fri) #Normocytic anemia #Hypotension #Leukocytosis #Nephrolithiasis #Hypothyroidism #CVA #Mood disorder Plan: - Above managed by primary team Thank you for your consultation and allowing participation in patient's care. Plan of care discussed with attending Dr. Swapna August, PGY-1 Internal Medicine Attending Provider Attestation/Addendum I have personally seen and examined the patient separately on the above date of service and discussed the plan of care with the resident. I reviewed the resident Dr. Donya August consultation progress note and agree with the resident findings and plan in the note above and have also edited the documentation to reflect my findings and plan. Patient known to me from recent previous admission when she was admitted for septic shock secondary to E. coli UTI, nephrolithiasis and was also found to have acute kidney injury with severe hyperkalemia. Patient was started on hemodialysis during the admission and was discharged home recently. Patient presented to the emergency department for shortness of breath. Patient admits that and hemodialysis session today and unclear if she did go to her hemodialysis session since discharge. Patient initially labs showed severe hyperkalemia with bicarb of less than 10 as well as lactic acid of 22 along with severe acidotic pH of 7.05. Patient was initiated on emergency dialysis but there is a dialysis patient did have worsening hypoxia as well as was found to have hypotension. Moderate . Patient was given IV antibiotics in the admitted for possible septic shock. Patient was intubated and sedated, admitted to the ICU. Next Cardiology now consulted for further evaluation of atrial fibrillation with RVR. Shock on pressors with severe acidosis as well as elevated lactic acidosis. Mostly secondary to septic shock unlikely cardiogenic shock. Patient does have history of low ejection fraction of less than 20% as noted below. EKG did not show any acute ST-T changes and also troponins 2 sets were negative. Repeat event echocardiogram was only done a few days ago and showed an EF of less than 20%. Patient does have a history of severe congestive heart failure even before and her EF was around 25% previously even in 2022 and 2023. No history of dilated cardiomyopathy. Remote history of drug abuse. Further management of the septic shock as per the primary team. Follow-up the blood cultures and other cultures sent as part of the workup for sepsis. Atrial fibrillation with RVR patient does have a history of atrial fibrillation and Balaram amiodarone 200 mg twice daily previously. There was no evidence of any NSVT or VT since admission. Patient is on pressors with Levophed and blood pressure is on the lower side and cannot give beta-galina or calcium blockers. Recommend to start amiodarone bolus along with drip as patient is not taking oral medications and is sedated. Patient is also at increased risk of arrhythmias including VT VF along with A-fib with RVR given her severely low EF and hence recommend to start on amiodarone drip after the bolus and keep it 1 mg per minute for now. Recommend to check her QTc closely. Keep potassium greater than 4 magnesium greater than 2.0 at all times. If the patient continues to be tachycardic recommend to switch norepinephrine to phenylephrine given her A-fib with RVR. Patient will need maximal goal-directed medical therapy when she improves given her severe systolic congestive heart failure and will need defibrillator if no improvement with GDMT in 3 months. Can consider for an ICD or LifeVest only if patient has any episodes of NSVT or VT. Patient does have chronic systolic congestive heart failure and remotely had workup done previously and will try to obtain the records for the same if not patient will need a cardiac catheterization for further evaluation. Check TSH A1c and lipid profile for further cardiac risk stratification. There is a high probability of sudden, clinically significant or life threatening deterioration in the patient condition which required the highest level of physician preparedness to intervene urgently. I have personally spent 45 minutes of critical care time, exclusive of time spent on any procedures, in evaluation and management of this critically ill patient. Management of rest of the medical conditions as per primary team and other consultants. Thank you for the consult and allowing me to participate in the care of the patient. Cardiology will continue to follow. Bishnu Barcenas M.D. Interventional Cardiology
[2025-05-17] MEDS: Norepinephrine/D5W 8mg/250ml 8 MG/250 ML BAG 9.521 MG IV (17:36)
--- NOTE | 2025-05-17 17:42 | ESHP_ITS ---
<Statement entered by Hermes Bernard MD - 05/17/25 21:37> Hollie Whaley is a 64-year-old female with a history of a-fib on xarelto and amiodarone, ESRD (/, followed by Dr. Landry), HFrEF (15-20%), CVA with left-sided deficits and left staghorn calculus who presents from [facility] for shortness of breath for the last few days. Patient states she's experienced progressive shortness of breath for the last three days with no other associated symptoms. She denies sick contacts, cough, sore throat, fever, chills, orthopnea, or worsening lower extremity edema. Also denies dysuria or abdominal pain. Of note, she missed her HD session today because she presented to the hospital. Upon arrival to the ED, she was tachycardic at 112 bpm and already on 15 L oxymask saturating 100%. Labs significant for leukocytosis of 15, lactate 22, BNP 1945, glucose of 42, K 6.1, and Cr/GFR/BUN consistent with ESRD. Initial ABG showed pH 7.05, pCO2 15, pO2 229, and HCO3 of 4. UA with signs of infection. CXR showed vascular congestion and enlarged cardiac contour. EKG showed a-fib with QTc of 520. Dr. Landry was contacted and patient was sent up from the ED to initiate emergent dialysis. Urine cultures were obtained and she was started on meropenem given previous urine culture results, ordered HCO3 drip, and follow-up ABG, lactate, and renal panel ordered for after hemodialysis. Nephrology and cardiology consulted. ----- Note reviewed and agree with care plan as documented. Please refer to the note below for further details. Plan discussed with attending physician Dr. Omid Bernard MD PGY-2 Internal Medicine Documentation for date of: 05/17/25 HPI History of Present Illness Chief complaint: SOB History of present illness: 64 year old female with cerebrovascular accident, atrial fibrillation, heart failure with reduced ejection fraction (25-30% in January 2023), chronic kidney disease (ON dialysis Friday, and friday), and hypothyroidism was sent from a SNF for worsening oxygen saturation. Patient is a poor historian, most of the history was obtained from the medical record and from the ED team. Initial lab work was remarkable for ABG: pH 7.05, bicarb of <10, severe electrolyte abnormalities, and lactic acid of 22. Patient was seen by the IM team during dialysis. Rapid response was called around 4:30 for worsening oxygen saturation, patient was transitioned from oxy mask to high flow nasal canulla, and was given anti emetics for nausea. O2 at the time of RR was 78 but improved to [address] Landry was consulted by the ER, recommendation appreciated. Patient missed HD today, therefore as per nephrology recommendations, inpatient HD was started. Patient tolerated HD for 30 mins before developing MAP of 58-61. HD was paused and over the next 40 mins patient was transfused albumin 25 X2, given tylenol for shivering and temp 96.4F, and meropenem 1g was ordered to be given post HD There was no improvement in BP despite these measures, another RR was called around 5:45 pm for worsening hypotension 80/40, and worsening mentation, patient was initially A/O x2, but during RR was only responsive to sternal rub.. ICU team was contacted, appreciate mobile ui/ux designer Dr. Arguello's input. Patient to be ungraded from tele to ICU for levophed. Repeat lactic acid and renal panel order for further evaluation. Dr. Landry was informed about the event. Patient tranferred to ICU. Exam Vital Signs Temp Pulse Resp BP Pulse Ox O2 Del Method O2 Flow Rate 96.9 F 50 L 24 H 98/45 L 100 Oxy Mask 25 05/17/25 13:47 05/17/25 17:15 05/17/25 15:50 05/17/25 17:15 05/17/25 15:50 05/17/25 12:26 05/17/25 15:50 FiO2 100 05/17/25 15:50 Narrative Exam *Limited physical exam was performed as patient was not alert or oriented and was primarily examined during the rapid response. General: Patient is only responsive to sternal rub. Unable to keep eyes open. HEENT: Atraumatic. Unable to keep eyes open, not able to do complete exam. Cardio: RRR, no murmurs, rubs, or gallops auscultated. RESP: On high flow oxygen. No crackles, wheezing, or rales auscultated. GI: Soft, nontender. No visual abdominal distention. Bowel sounds not auscultated. Skin: Cold, dry, intact. MSK/Extremities: Patient was not alert or oriented, MSK exam not completed. Patient was withdrawing to sternal rub and painful stimuli. Right clenched fist. Neuro: unable to obtain complete neuro exam. Patient only responsive to sternal rub. Results: Labs 05/18/25 04:35 05/18/25 13:01 Labs: Short CBC 05/17/25 Range/Units 12:38 WBC 15.3 H D (3.6-11.0) Thou/mm3 Hgb 11.0 L D (12.0-16.0) g/dL Hct 38.1 (36.0-46.0) % Plt Count 201 (140-440) Thou/mm3 BMP 05/17/25 12:38 Sodium 139 Potassium 6.1 H* Chloride 97 L Carbon Dioxide < 10.0 L* BUN 27 H Creatinine 4.1 H* D Glucose 42 L* Calcium 9.5 Cardiac Enzymes 05/17/25 Range/Units 12:38 Troponin I 0.023 (0.0-0.045) ng/mL Liver Function 05/17/25 Range/Units 12:38 Total Bilirubin 0.4 (0.3-1.2) mg/dL AST 19 (0-34) U/L ALT 22 (10-49) U/L Alkaline Phosphatase 95 (46-116) U/L Albumin 3.6 (3.4-4.8) gm/dL Urine 05/17/25 Range/Units 12:24 Urine Color Lt-[place] A (Lt Yel-Yel) Urine Clarity Cloudy A (Clear/Hazy) Urine pH 5.5 (5.0-7.0) Ur Specific [place] 1.010 (1.001-1.035) Urine Protein 1+ A (Neg - Trace) Urine Glucose (UA) Negative (Negative) ABG Interpretation ABG results: 05/17/25 15:40 ABG pH 7.05 L* ABG pCO2 15 L* ABG pO2 229 H ABG HCO3 4 L* ABG O2 Saturation 100 H ABG Base Excess -24 L Quality Measures Quality Measures none Medications Home Medications and Allergies Home Medications ?Medication ?Instructions ?Recorded ?Confirmed ?Type levothyroxine 50 mcg tablet 50 mcg PO QDAY #0 tabs 06/1605/17/25 History magnesium hydroxide 400 mg/5 mL 30 ml PO Q72H PRN CONS TIPATION #0 09/11/15 05/18/25 History oral suspension (Milk of Magnesia) mL multivitamin with minerals 1 tab PO QDAY ##0 09/11/15 05/17/25 History ascorbic acid (vitamin C) 500 mg 500 mg PO BID 9 05/17/25 History tablet atorvastatin 20 mg/5 mL (4 mg/mL) 20 mg PO QDAY 05/18/25 History oral suspension (AtorvaliQ) brimonidine 0.2 % eye drops 1 drp ophthalmic (eye) HS 05/01/25 05/18/25 History diphenhydramine HCl 25 mg capsule 25 mg PO Q8H PRN all ergy symptoms 05/01/25 05/18/25 History (Allergy (diphenhydramine)) divalproex 250 mg tablet,extended 250 mg PO TID 05/17/25 History release 24 hr (Depakote ER) hydrocodone 10 mg-acetaminophen 1 tab PO Q8H 05/01/25 05/18/25 History 325 mg tablet hydroxyzine HCl 25 mg tablet 25 mg PO BID 05/01/25 History lasix 40 mg PO DAILY 05/01/2505/02 History loperamide 2 mg tablet 4 mg PO Q6H PRN loose stool 05/01/25 05/18/25 History loratadine 10 mg tablet 10 mg PO Q24H 05/01/2505/18 History melatonin 3 mg capsule 3 mg PO HS PRN sleep 5 05/17/25 History metoprolol succinate 50 mg 50 mg PO QDAY 05/01/2505/02 History tablet,extended release 24 hr Held on 05/11/25. Instructions: Resume on 05/31/25. Hold until you see bell person. ondansetron HCl 4 mg tablet 4 mg PO Q6H 05/01/2505/18 History polyethylene glycol 3350 17 gram 17 g PO QDAY 05/01/25 05/18/25 History oral powder packet potassium chloride 10 mEq 10 meq PO BID 05/01/2505/18 History tablet,extended release psyllium husk 0.52 gram capsule 0.52 g PO BID 05/01/25 05/18/25 History (Fiber Laxative (psyllium husk)) ropinirole 1 mg tablet 1 mg PO QDAY 05/01/25 History sennosides 8.6 mg-docusate sodium 2 tab-cap PO BID 05/18/25 History 50 mg tablet (Senna-S) sodium phosphates 19 gram-7 118 ml UT QDAY PRN constip ation 05/01/25 05/18/25 History gram/118 mL enema (Enema) Allergies Allergy/AdvReac Type Severity Reaction Status Date / Time Cephalexin Monohydrate Allergy Severe Anaphylaxis Verified 05/17/25 12:12 sulfamethoxazole Allergy Severe Anaphylaxis Verified 05/17/25 12:12 trimethoprim Allergy Severe Anaphylaxis Verified 05/17/25 12:12 Visit Medications Acetaminophen (Acetaminophen 325 Mg Tablet) 650 mg PO Q6H PRN PRN Reason: PAIN OR FEVER > 100.4 Stop: 06/16/25 15:47 Last Admin: 05/17/25 17:05 Dose: 650 mg Amiodarone HCl (Amiodarone Hcl 200 Mg Tablet) 200 mg PO BID [facility] Stop: 06/16/25 20:59 Dextrose (Dextrose 50%-Water Inj 50 Ml Syringe) 25 ml IV Q15MIN PRN PRN Reason: BG 50-70 responsive npo pt Stop: 06/16/25 16:03 Dextrose (Dextrose 50%-Water Inj 50 Ml Syringe) 50 ml IV Q15MIN PRN PRN Reason: BG <50 OR BG <70 & pt unresponsive Stop: 06/16/25 16:03 Divalproex Sodium (Divalproex Sod Ec 125 Mg Tabec) 250 mg PO TID RIANNA Stop: 06/16/25 21:59 Enoxaparin Sodium (Enoxaparin Sod Inj 40 Mg/0.4 Ml Syringe) 40 mg SC QDAY RIANNA Stop: 06/01/25 08:59 Glucagon (Glucagon Inj 1 Mg Vial) 1 mg IM Q15MIN PRN PRN Reason: BG <70, and no IV access Heparin Sodium (Porcine) (Heparin Sod Inj 1000 Unit/Ml Vial 10 Ml) 3,300 unit INDWELLCAT PRN PRN PRN Reason: DIALYSIS Stop: 05/31/25 16:11 Albumin Human (Albuminar-25 Ivpb) 25 gm in 100 mls @ 100 mls/min IV PRN PRN PRN Reason: DIALYSIS Last Admin: 05/17/25 17:03 Dose: 100 mls/min Meropenem 500 mg/ Sodium (Chloride) 50 mls @ 100 mls/hr IV QDAY RIANNA Stop: 05/25/25 08:59 Norepinephrine/Dextrose (Levophed In D5w 8mg/250ml) 8 mg in 250 mls @ 9.521 mls/hr IV .Q24H PRN; Protocol PRN Reason: PER PROTOCOL Stop: 06/16/25 17:25 Insulin Human Lispro (Insulin Lispro (Admelog) 1 Unit/0.01 Ml Unit) 0 unit SC AC RIANNA; Protocol Stop: 06/16/25 16:59 Levothyroxine Sodium (Levothyroxine Sodium 25 Mcg Tablet) 50 mcg PO ACBR RIANNA Stop: 06/17/25 05:59 Melatonin (Melatonin 3 Mg Tablet) 3 mg PO HS PRN PRN Reason: sleep Multivitamins (Multivitamins Tablet) 1 tab PO QDAY RIANNA Stop: 06/17/25 08:59 Scopolamine (Scopolamine 1 Mg Tdsy) 1 mg TOP Q3D RIANNA Stop: 06/16/25 15:59 Sodium Chloride (Sodium Chloride Rt Cristina 0.9% 3 Ml Nebu) 3 ml INH PRN PRN PRN Reason: SOLN Stop: 06/16/25 13:23 Last Admin: 05/17/25 13:36 Dose: 3 ml Discontinued Medications Albuterol (Albuterol Rt 2.5 Mg/0.5 Ml Nebu) 10 mg INH X1 ONE Stop: 05/17/25 13:25 Last Admin: 05/17/25 13:35 Dose: 10 mg Calcium Gluconate (Calcium Gluconate 10% Inj 1 Gm/10 Ml Vial) 1 gm IV X1 ONE Stop: 05/17/25 13:25 Last Admin: 05/17/25 13:45 Dose: 1 gm Dextrose (Dextrose 50%-Water Inj 50 Ml Syringe) 50 ml IVP X1 ONE Stop: 05/17/25 13:25 Last Admin: 05/17/25 13:45 Dose: 50 ml Dextrose (Dextrose 50%-Water Inj 50 Ml Syringe) 50 ml IVP X1 ONE Stop: 05/17/25 14:52 Last Admin: 05/17/25 14:56 Dose: 50 ml Sodium Bicarbonate 88.23 meq/ (Dextrose) 588.23 mls @ 100 mls/hr IV .Q5H53M RIANNA Stop: 06/16/25 16:11 Meropenem 1,000 mg/ Sodium (Chloride) 50 mls @ 100 mls/hr IV X1 ONE; Protocol Stop: 05/17/25 16:49 Ondansetron HCl (Ondansetron Odt 4 Mg Tabrap) 4 mg PO X1 ONE; Protocol Stop: 05/17/25 13:18 Last Admin: 05/17/25 13:21 Dose: 4 mg Pantoprazole Sodium (Pantoprazole Inj 40 Mg Vial) 40 mg IVP X1 ONE Stop: 05/17/25 15:40 Last Admin: 05/17/25 15:45 Dose: 40 mg Prochlorperazine Edisylate (Prochlorperazine Inj 5 Mg/Ml Vial 2 Ml) 10 mg IVP X1 ONE; Protocol Stop: 05/17/25 15:41 Last Admin: 05/17/25 15:47 Dose: 10 mg Assessment & Plan Plan 64-year-old female with a past medical history significant for a cerebrovascular accident, atrial fibrillation, heart failure with reduced ejection fraction (25- 30% in January 2023), chronic kidney disease (on HD friday, , and hypothyroidism admitted for acute hypoxic respiratory failure, and upgraded to ICU for severe hypotension. #Acute hypoxic respiratory failure #Anion gap metabolic acidosis- lactic acidosis In the setting of #UTI #End stage renal disease on HD - Patient presented from [facility] due to Oxygen saturation in low 80s. Patient was stabilized on nasal canulla but during hemo dialysis saturation again dropped to 79. Patient required high flow oxygen. - 1st Rapid response was called around 4:30 for worsening oxygen saturation, patient was transitioned from oxy mask to high flow nasal canulla, and was given anti emetics for nausea. O2 at the time of RR was 78 but improved to 92 with high flow. - Patient tolerated HD for 30 mins before developing MAP of 58-61. HD was paused and over the next 40 mins patient was transfused albumin 25 X2, given tylenol for shivering and temp 96.4F, and meropenem 1g was ordered to be given post HD - There was no improvement in BP despite these measures, another RR was called around 5:45 pm for worsening hypotension 80/40, and worsening mentation, patient was initially A/O x2, but during RR was only responsive to sternal rub. Plan: - Patient tranferred to ICU. - Dr. Landry was consulted by the ER, recommendation appreciated. Patient missed HD today, therefore as per nephrology recommendations, inpatient HD as tolerated. - ICU team was contacted, appreciate mobile ui/ux designer Dr. Arguello's input. Patient to be upgraded from tele to ICU for levophed. - Repeat lactic acid and renal panel order for further evaluation. - Follow up blood culture results. - Cont IV meropenem renally dosed - PRN anti emetics Health Maintenance: Code Status: Full DVT Prophylaxis: SCDs GI Prophylaxis: Protonix Diet: NPO Turner: Turner in place Lines: PIV Supplemental O2: High Flow nasal canulla Disposition: ICU, severe hypotension, acute respiratory failure Patient seen and care discussed with my attending physician, Dr. Anne and my senior residents, Dr. Azul and Dr. Mata Williamson, [facility]- Attending Provider Attestation/Addendum I, Silvia Anne DO, attest that I was physically present for the horn portions of the service and evaluated the patient with the resident and I reviewed and discussed the case with the resident and agree with the resident's findings and plans of care as documented above Patient is a 64-year-old female with medical history of CVA, A-fib on chronic anticoagulation, dilated cardiomyopathy with ejection fraction of 15 to 20% and end-stage renal disease on hemodialysis who is brought to the ED due to worsening shortness of breath. Patient states that she has been feeling unwell for the past week. She was brought from rehab due to desaturations in the low 80s. Patient is due for dialysis today. Patient was recently discharged from the hospital about 1 week ago during which patient was in septic shock due to E. coli UTI, acute HFrEF exacerbation and started on dialysis due to ATN. Patient had been admitted due to a similar clinical picture with severe hyperkalemia secondary to severe metabolic alkalosis and ARIANA. Patient was found to have a staghorn calculus in her left kidney during that hospital stay with renal scarring and left UTI pattern. Urology had been consulted during this stay and patient was deemed a poor surgical candidate at that time due to critical illness. Patient again on presentation was found to have severely metabolic acidosis with a bicarb of less than 10 and a hyperkalemia of 6.1. Patient has a leukocytosis of 15.3. Stat dialysis had been ordered by nephrology from the ER. However, upon bringing patient up for dialysis, a rapid response had been called during which the patient reported shortness of breath. Chart was reviewed and x-ray showed mild heart failure plaque pattern with prominent vascular congestion, but no pneumonic infiltrates noted. Patient had mild crackles noted in bilateral lung amaro. She also had significant 3+ pitting edema in bilateral lower extremities. Patient was saturating around 79% on 15 L oxymask. Patient was subsequently placed on high flow nasal cannula for positive pressure support. Respiratory status and mental status improved. Patient had also received 2 Amps of sodium bicarb per ED signout, calcium gluconate and albuterol. Patient was also noted to have hypoglycemia on presentation during which she received 2 A of dextrose as well. Decision was made to admit patient due to acute decompensation and severe metabolic acidosis. Patient likely has shortness of breath due to acidosis and compensatory respiratory alkalosis. An ABG was subsequently done showing a pH of 7.05 CO2 15 and PaO2 of 229. Due to high anion gap metabolic acidosis a lactic acid was drawn showing lactic acid of 22. Sodium bicarb was ordered. case was discussed with nephrology as patient was well-known to service and patient had similar presentation on last admission. Patient was subsequently started on HD. However, after 20 minutes of hemodialysis during which 400 mL of fluid was removed, patient began to shiver and become more somnolent. Patient also became more hypotensive. Senior Operations Analyst was consulted regarding hypotension as patient may need CRRT given severe metabolic acidosis and requirement for vasopressors. Patient's mental status continued to worsen and rapid response was called again. Hemodialysis was stopped despite albumin being given to improve blood pressure. Patient was started on Levophed peripherally and subsequently transferred to ICU. Patient was also started on meropenem due to concern for septic shock secondary to UTI. Given history of ESBL E. coli, will broaden antibiotic coverage. Cardiology was also consulted due to acute HFrEF exacerbation in the setting of dilated cardiomyopathy.
--- NOTE | 2025-05-17 18:05 | PC.NURSE ---
Addendum entered by Jordan Whaeln RN 05/17/25 18:06: POST RINSE BACK PT BECAME UNRESPONSIVE, PULSE AND RESPIRATIONS PRESENT, O2 DROPPED FROM 100% TO 92%, DEMONSTRATOR SALES CALLED. TEAM AT BEDSIDE, PT RESPONSIVE TO STERNAL RUB, BP REMAINED LOW W/ RECHECK AT 52/28 HR 69 @1729. W/ ORDER TO DISCONNECT PT AND TRANSFER TO ICU POST INITIATION OF LEVOFED BY ICU CHARGE NURSE . ORDERS CARRIED OUT, MD LYLE NOTIFIED. BP RECHECKS AT 101/49 HR 58 @1730, 101/21 HR 61 @1732 AND 133/117 HR 68 @1735 PT TRANSFERRED AT THAT TIME. Original Note: UF REMAINS OFF, BP CONT'S. TO TREND DOWN. MD FLORES AT BEDSIDE W/ ORDER TO END TX, ALL BLOOD RETURNED.
[2025-05-17 18:08] LABS: Base Excess -20 (-3-3); HCO3 8 mEq/L (20-26); O2 Saturation 101 % (91-98); PCO2 24 mmHg (32.0-48.0); PO2 241 mmHg (83-108)
[2025-05-17 18:12] LABS: pH, Arterial 7.11 (7.35-7.45)
[2025-05-17 18:13] LABS: Allen Test Performed/OK; Inspired O2, VO2 Liters 15 L/min; Puncture Site Right Radial
[2025-05-17] MEDS: ETOMIDATE INJ 2 MG/ML VIAL 10 ML 30 MG IVP (18:20)
[2025-05-17] MEDS: ROCURONIUM INJ 10 MG/ML VIAL 10 ML 100 MG IVP (18:20)
--- NOTE | 2025-05-17 18:27 | XR_ITS ---
Examination: AP chest single view Technique: AP portable supine chest single view Date and time: May 17, 2025, 1846 hrs. Indications: Hypoxic respiratory failure today, postintubation Findings: Moderate enlargement cardiac contour. Prominent vascular congestion suspicious for early septal edema at the lung bases Endotracheal tube tip 3 cm above jose martin. The orogastric tube is in the stomach, the tip is below the level of the film. Right internal jugular dialysis catheter tip SVC Impression: Mild heart failure No aspiration pneumonia Endotracheal tube tip 3 cm above jose martin
--- NOTE | 2025-05-17 18:31 | PD.EDADDENDU ---
Emergency Room Addendum Addendum Narrative: Procedure note: I was called the patient's bedside at room 256 in the ICU. Patient required intubation. Patient was found to be somnolent and dyspneic. She is a dialysis patient. Patient received 30 mg of etomidate and 100 mg of rocuronium and with the assistance of the glide a scope the ICU resident intubated the patient with a 7.5 endotracheal tube placed at 22 cm at the lips with good breath sounds bilaterally and good color change by capnography. Patient will be properly sedated and vent settings will be given to the respiratory therapist by the ICU resident. I supervised this procedure. There were no complications. Postintubation chest x-ray will be obtained and followed up by the ICU resident.
[2025-05-17] MEDS: fentaNYL 2,500 MCG/250 ML BAG 2,500 MCG/250 ML BAG IV (18:32)
[2025-05-17] MEDS: HEPARIN SOD INJ 1000 UNIT/ML VIAL 10 ML 3300 UNIT INDWELLCAT (18:34)
[2025-05-17 19:01] LABS: Reflex Lactate? Y
--- NOTE | 2025-05-17 19:33 | ESOP_ITS ---
PROCEDURES: Procedure Date / Time 05/17/25 7647 Intubation Indication(s): inability to protect airway Informed consent obtained: procedure done urgently Time out done, and the following verified: correct patient, side and site, procedure, patient position and implants and/or equipment Sedative: etomidate Mg given: 30 Paralytic: rocuronium Mg given: 102 Laryngoscope: fiber optic video scope Assist device used: fiber optic device ET tube size: 7 ET tube uncuffed: No Tube secured depth (cm): 23 Tube secured location: teeth Tube placement confirmation: visualized tube passing through cords, equal breath sounds bilaterally, no breath sounds over epigastrium and confirmation by capnometry Patient tolerated procedure: well and no complications EBL(ml): 0 Intubation complications: none Additional comments: Procedure performed under supervision of Dr. Byrnes. Marc Samayoa MD, PGY 3. Disclaimer: This note was dictated by speech recognition. Minor errors in printed circuit board designer may be present due to voice recognition software.
--- NOTE | 2025-05-17 19:37 | ESOP_ITS ---
<Statement entered by Luz Marina Arguello MD - 05/19/25 13:03> I was available to provide assistance for the procedure. PROCEDURES: Procedure Date / Time 05/17/25 1900 Central Line Placement Right Femoral: Indication(s): shock and poor, or inadequate peripheral venous access Informed consent obtained: procedure done urgently Time out done, and the following verified: correct patient, side and site, procedure, patient position and implants and/or equipment Patient placed on monitor/pulse ox: Yes Hand Hygiene: scrub, soap & water and alcohol-based hand rub Max Sterile Barrier Techniques used: cap, mask, sterile gown, sterile gloves and sterile full body drape Central line prep: Povidone-Iodine 1% Ultrasound used for placement: Yes Sterile Technique if Ultrasound used, including sterile gel: yes Central line lumen inserted: triple Post procedure: sutured in place, good blood return, all ports aspirated, flushed, capped and sterile dressing applied Post procedure x-ray: other (n/a) Patient tolerated procedure: well and no complications EBL(ml): 10 Complications: none Procedure comment: Procedure performed under supervision of Dr. Arguello. Marc Samayoa MD, PGY 3. Disclaimer: This note was dictated by speech recognition. Minor errors in recovery coordinator may be present due to voice recognition software.
[2025-05-17 19:42] LABS: Lactate (Lactic Acid) 18.0 mMol/L (0.4-2.0)
--- NOTE | 2025-05-17 19:55 | PC.RT ---
@1940 UNABLE TO COLLECT SPUTUM SAMPLE
[2025-05-17 19:57] LABS: Base Excess -20 (-3-3); HCO3 9 mEq/L (20-26); Inspired Oxygen, FIO2 100 %; O2 Saturation 101 % (91-98); PCO2 28 mmHg (32.0-48.0); PO2 441 mmHg (83-108)
[2025-05-17 20:01] LABS: Allen Test Performed/OK; Puncture Site Left Radial; pH, Arterial 7.10 (7.35-7.45)
[2025-05-17] MEDS: Sodium Bicarb 8.4% 50ml Vial* 88.23 MEQ in DEXTROSE 5%-WATER 500 ML 100 MEQ IV (20:04)
[2025-05-17] MEDS: MEROPENEM INJ 1,000 MG in SODIUM CHLORIDE 0.9% (Popper) 50 ML 100 MG IV (20:04)
[2025-05-17] MEDS: AMIODARONE 150 MG IVPB 150 MG/100 ML BAG 600 MG IV (20:44)
[2025-05-17] MEDS: AMIODARONE 360 MG IVPB 360 MG/200 ML BAG 33.333 MG IV (20:54)
--- NOTE | 2025-05-17 21:21 | EVENTNT_ITS ---
Documentation for date of: 05/17/25 Event Note Event Note: Rapid response called in dialysis room prior to initiating HD for hypoxia around 4 PM. Upon arrival, patient was alert and conversational and telemetry box did not show good waveform but was noted to be saturating in mid to low 80s. She was transitioned from oxymask to HFNC and saturations improved. ABG was ordered and rapid response ended. At this time, patient was not known to medicine team but was signed out by ED and decision was made to admit. Please see H&P for further details. At [facility] 5:45 PM, second RR called for refractory hypotension after being given 25 g of albumin and IVF during dialysis. MAP noted to fluctated between 40-60s with multiple BP measurements and patient appeared lethargic. She had brisk response to sternal rub but would become lethargic again. She was given an additional 25 g of albumin and ABG from previous rapid was pH 7.05, pCO2 15, pO2 229, and HCO3 of 4. At this time, ICU team was contacted and decision was made to upgrade. In HD room, levophed started via PIV for immediate pressor support and transported to the ICU for further management. Please see ICU consultation note for further details. ----- Note reviewed and agree with care plan as documented. Please refer to the note below for further details. Plan discussed with attending physician Dr. Omid Bernard MD PGY-2 Internal Medicine
[2025-05-17 22:11] LABS: Reflex Lactate? Y
[2025-05-17 22:12] LABS: Base Excess -11 (-3-3); HCO3 15 mEq/L (20-26); Inspired Oxygen, FIO2 60 %; O2 Saturation 101 % (91-98); PCO2 33 mmHg (32.0-48.0); PO2 208 mmHg (83-108); pH, Arterial 7.27 (7.35-7.45)
[2025-05-17 22:13] LABS: Allen Test Performed/OK; Puncture Site Left Radial
[2025-05-17] MEDS: HEPARIN SOD INJ 1000 UNIT/ML VIAL 10 ML 5000 UNIT IV (23:00)
[2025-05-17 23:21] LABS: Lactate (Lactic Acid) 7.9 mMol/L (0.4-2.0)
[2025-05-17 23:45] LABS: Albumin, Serum 3.9 gm/dL (3.4-4.8); Anion Gap 24 (7-16); BUN/Creatinine Ratio 6 Ratio (12-20); Blood Urea Nitrogen 13 mg/dL (9-23); Calcium 8.9 mg/dL (8.3-10.6); Calcium (Corrected) 9.0 mg/dL (8.5-10.1); Carbon Dioxide 16.7 mMol/L (20.0-31.0); Chloride 97 mMol/L (98-107); Creatinine (Component) 2.2 mg/dL (0.6-1.3); Estimated Creatinine Clearance 34.9 mL/min (>60); Glucose 173 mg/dL (74-106); Osmolality,Calculated 279 (275-295); Phosphorous 2.6 mg/dL (2.4-5.1); Potassium 3.6 mMol/L (3.4-5.1); Sodium 138 mMol/L (136-145); eGFR 25 See Note
[2025-05-18] VITALS (158 sets, daily range): BP systolic 61–126; BP diastolic 39–80; PULSE 86–144; RESP 6–194; TEMP 36–36.1; O2SAT 92–100; BMI 29.7
[2025-05-18 02:19] LABS: Reflex Lactate? Y
[2025-05-18] MEDS: AMIODARONE 360 MG IVPB 360 MG/200 ML BAG 33.333 MG IV (03:00)
[2025-05-18 03:32] LABS: Lactate (Lactic Acid) 3.6 mMol/L (0.4-2.0)
[2025-05-18] MEDS: Norepinephrine/D5W 8mg/250ml 8 MG/250 ML BAG 20.947 MG IV (03:39)
[2025-05-18] MEDS: DEXMEDETOMIDINE 400 MCG IVPB 400 MCG/100 ML BAG 5.078 MCG IV (04:00)
[2025-05-18 05:11] LABS: Base Excess -1 (-3-3); HCO3 22 mEq/L (20-26); Inspired Oxygen, FIO2 45 %; O2 Saturation 101 % (91-98); PCO2 31 mmHg (32.0-48.0); PO2 194 mmHg (83-108); pH, Arterial 7.46 (7.35-7.45)
[2025-05-18] MEDS: LEVOTHYROXINE SODIUM 25 MCG TABLET 50 MCG PO (05:12)
[2025-05-18 05:15] LABS: Allen Test Performed/OK; Puncture Site Right Radial
[2025-05-18 06:04] LABS: Basophils # (Auto) 0.0 Thou/mm3 (0.0-0.2); Basophils % (Auto) 0 % (0-2.5); Eosinophils # (Auto) 0.0 Thou/mm3 (0.0-0.5); Eosinophils % (Auto) 0 % (0-10); Hematocrit 28.1 % (36.0-46.0); Immature Granulocytes Auto 0.06 Thou/mm3 (0.00-0.00); Lymphocytes # (Auto) 1.0 Thou/mm3 (1.0-4.8); Lymphocytes % (Auto) 9 % (10-50); Mean Corpuscular HGB Conc 31.3 g/dl (31.0-37.0); Mean Corpuscular Hemoglobin 32.7 pg (25.0-35.0); Mean Corpuscular Volume 105 fL (80-100); Monocytes # (Auto) 0.6 Thou/mm3 (0.0-0.8); Monocytes % (Auto) 6 % (0-12); Neutrophils # (Auto) 8.7 Thou/mm3 (1.8-7.7); Neutrophils % (Auto) 84 % (37-80); Nucleated Red Blood Cell # 0.03 Thou/mm3 (0.00-0.00); Nucleated Red Blood Cell % 0 /100 WBC (0); Platelet Count 93 Thou/mm3 (140-440); RDW Standard Deviation 80.6 fL (36.4-46.3); Red Blood Count 2.69 Miln/mm3 (4.00-5.20); White Blood Count 10.4 Thou/mm3 (3.6-11.0)
[2025-05-18 06:06] LABS: Hemoglobin 8.8 g/dL (12.0-16.0)
[2025-05-18 06:25] LABS: Reflex Lactate? Y
[2025-05-18 06:43] LABS: Alanine Aminotransferase 13 U/L (10-49); Albumin, Serum 3.6 gm/dL (3.4-4.8); Albumin/Globulin Ratio 1.6 (1.2-2.2); Alkaline Phosphatase 74 U/L (46-116); Anion Gap 17 (7-16); Aspartate Amino Transferase 13 U/L (0-34); BUN/Creatinine Ratio 5 Ratio (12-20); Bilirubin,Total 0.9 mg/dL (0.3-1.2); Blood Urea Nitrogen 6 mg/dL (9-23); Calcium 8.7 mg/dL (8.3-10.6); Calcium (Corrected) 9.0 mg/dL (8.5-10.1); Carbon Dioxide 22.8 mMol/L (20.0-31.0); Chloride 97 mMol/L (98-107); Creatinine (Component) 1.1 mg/dL (0.6-1.3); Estimated Creatinine Clearance 69.2 mL/min (>60); Globulin 2.2 gm/dL (2.3-3.5); Glucose 116 mg/dL (74-106); Magnesium 1.7 mg/dL (1.6-2.6); Osmolality,Calculated 272 (275-295); Phosphorous 1.1 mg/dL (2.4-5.1); Potassium 3.2 mMol/L (3.4-5.1); Sodium 137 mMol/L (136-145); Total Protein 5.8 gm/dL (5.7-8.2); eGFR 56 See Note
[2025-05-18 06:44] LABS: Glucose Estimated Average 97 mg/dL (80-131); Hemoglobin A1C 5.0 % Hgb (4.8-6.0)
[2025-05-18 07:12] LABS: Lactate (Lactic Acid) 2.8 mMol/L (0.4-2.0)
[2025-05-18] MEDS: POT PHOS 15 mMol in NS 250 ML 15 MMOL/250 ML BAG 62.5 MMOL IV ×2 (07:38→22:10)
[2025-05-18] MEDS: Magnesium Sulfate 4 GM Ivpb 4 GM/50 ML BAG IV (07:38)
[2025-05-18] MEDS: MEROPENEM INJ 500 MG in SODIUM CHLORIDE 0.9% (Popper) 50 ML 100 MG IV (08:50)
[2025-05-18] MEDS: MULTIVITAMIN 15 ML UDC GT (08:52)
[2025-05-18] MEDS: HEPARIN SOD INJ 1000 UNIT/ML VIAL 10 ML 3300 UNIT INDWELLCAT (09:11)
[2025-05-18] MEDS: AMIODARONE 360 MG IVPB 360 MG/200 ML BAG 16.667 MG IV ×2 (09:32→21:30)
--- NOTE | 2025-05-18 09:58 | ESPR_ITS ---
Documentation for date of: 05/18/25 Subjective Subjective Interval history: Patient seen and examined at bedside in the ICU. Telemetry shows atrial fibrillation rate high 90s to 100s. Blood pressure 90s/60s on norepinephrine and Precedex. Patient recently extubated and on oxy mask. Patient is drowsy but is able to communicate that she has no chest pain. WBC 15.3->10.4, hemoglobin 11->8.8, platelets 201->93. K 3.2, BUN 6, anion gap 17, lactic acid improved to 2.8., A1c 5.0. Exam Vital Signs Temp Pulse Resp BP Pulse Ox O2 Del Method O2 Flow Rate 97.0 F 92 22 H 101/50 L 100 Mechanical Ventilation 2 05/18/25 09:00 05/18/25 09:46 05/18/25 09:46 05/18/25 09:46 05/18/25 09:46 05/18/25 08:00 05/18/25 09:32 FiO2 40 05/18/25 08:14 Narrative Exam GENERAL: extubated on oxy mask, confused and drowsy HEENT: NC/AT, mucous membranes dry, bilateral sclera anicteric CARDIOVASCULAR: irregular rhythm, tachycardic, no murmurs able to be appreciated, R IJ TDC in place with dried blood, R femoral line in place PULMONARY: distant breath sounds bilaterally, no rales/rhonchi/wheezes ABDOMINAL: soft, non-tender, non-distended, no rebound/guarding, bowel sounds present EXTREMITIES: trace pitting edema of BLE, L heel wound wrapped, contracture of L hand, 0/5 strength in LUE and LLE, 4/5 strength RUE and RLE SKIN: LLE wound NEURO: alert, following commands Objective Labs 05/18/25 04:35 05/18/25 19:29 Labs: Laboratory Results - last 24 hr 05/17/25 05/17/25 05/17/25 12:24 12:38 15:40 WBC 15.3 H D RBC 3.37 L Hgb 11.0 L D Hct 38.1 MCV 113 H MCH 32.6 MCHC 28.9 L RDW Std Deviation 91.3 H Plt Count 201 Neut % (Auto) 84 H Lymph % (Auto) 10 [place] % (Auto) 5 Eos % (Auto) 0 Baso % (Auto) 0 Neut # (Auto) 12.9 H Lymph # (Auto) 1.5 [place] # (Auto) 0.7 Eos # (Auto) 0.0 Baso # (Auto) 0.0 Immature Gran # (Auto) 0.23 H Absolute Nucleated RBC 0.05 H Immature Gran % 2 H Nucleated RBC % 0 PT 17.2 H D INR 1.6 H APTT 36.7 H Puncture Site Right Radial ABG pH 7.05 L* ABG pCO2 15 L* ABG pO2 229 H ABG HCO3 4 L* ABG O2 Saturation 100 H ABG Base Excess -24 L Oxygen Liter Flow 15 FiO2 Sodium 139 Potassium 6.1 H* Chloride 97 L Carbon Dioxide < 10.0 L* Anion Gap 32 H BUN 27 H Creatinine 4.1 H* D Estim Creat Clear Calc 18.7 L eGFR 12 L* BUN/Creatinine Ratio 7 L Glucose 42 L* Estimated Ave Glu mg/dL Hemoglobin A1c Calculated Osmolality 279 Lactic Acid Calcium 9.5 Corrected Calcium 9.8 Phosphorus Magnesium 2.2 Total Bilirubin 0.4 AST 19 ALT 22 Alkaline Phosphatase 95 Lactate Dehydrogenase 337 H Troponin I 0.023 B-Natriuretic Peptide 1945 H* Total Protein 6.6 Albumin 3.6 Globulin 3.0 Albumin/Globulin Ratio 1.2 Ur Collection Type Clean Catch Urine Color Lt-[place] A Urine Clarity Cloudy A Urine pH 5.5 Ur Specific [place] 1.010 Urine Protein 1+ A Urine Glucose (UA) Negative Urine Ketones 1+ A Urine Blood 3+ A Urine Nitrite Negative Urine Bilirubin Negative Urine Urobilinogen (Auto) Negative Ur Leukocyte Esterase Positive Urine RBC 82 H Urine WBC 1329 H Ur Squamous Epith Cells 0 Urine Bacteria None Ur Culture Indicated? Yes Urine Opiates Screen Positive A Urine Fentanyl Screen Negative Ur Barbiturates Screen Negative U Amphetamin/Meth Scrn Negative U Benzodiazepines Scrn Negative U Cocaine Metab Screen Negative U Marijuana (THC) Screen Negative 05/17/25 05/17/25 05/17/25 15:54 18:01 18:58 WBC RBC Hgb Hct MCV MCH MCHC RDW Std Deviation Plt Count Neut % (Auto) Lymph % (Auto) [place] % (Auto) Eos % (Auto) Baso % (Auto) Neut # (Auto) Lymph # (Auto) [place] # (Auto) Eos # (Auto) Baso # (Auto) Immature Gran # (Auto) Absolute Nucleated RBC Immature Gran % Nucleated RBC % PT INR APTT Puncture Site Right Radial ABG pH 7.11 L* ABG pCO2 24 L ABG pO2 241 H ABG HCO3 8 L* ABG O2 Saturation 101 H ABG Base Excess -20 L Oxygen Liter Flow 15 FiO2 Sodium Potassium Chloride Carbon Dioxide Anion Gap BUN Creatinine Estim Creat Clear Calc eGFR BUN/Creatinine Ratio Glucose Estimated Ave Glu mg/dL Hemoglobin A1c Calculated Osmolality Lactic Acid 22.0 H* 18.0 H* Calcium Corrected Calcium Phosphorus Magnesium Total Bilirubin AST ALT Alkaline Phosphatase Lactate Dehydrogenase Troponin I B-Natriuretic Peptide Total Protein Albumin Globulin Albumin/Globulin Ratio Ur Collection Type Urine Color Urine Clarity Urine pH Ur Specific [place] Urine Protein Urine Glucose (UA) Urine Ketones Urine Blood Urine Nitrite Urine Bilirubin Urine Urobilinogen (Auto) Ur Leukocyte Esterase Urine RBC Urine WBC Ur Squamous Epith Cells Urine Bacteria Ur Culture Indicated? Urine Opiates Screen Urine Fentanyl Screen Ur Barbiturates Screen U Amphetamin/Meth Scrn U Benzodiazepines Scrn U Cocaine Metab Screen U Marijuana (THC) Screen 05/17/25 05/17/25 05/17/25 19:47 22:05 23:07 WBC RBC Hgb Hct MCV MCH MCHC RDW Std Deviation Plt Count Neut % (Auto) Lymph % (Auto) [place] % (Auto) Eos % (Auto) Baso % (Auto) Neut # (Auto) Lymph # (Auto) [place] # (Auto) Eos # (Auto) Baso # (Auto) Immature Gran # (Auto) Absolute Nucleated RBC Immature Gran % Nucleated RBC % PT INR APTT Puncture Site Left Radial Left Radial ABG pH 7.10 L* 7.27 L D ABG pCO2 28 L 33 ABG pO2 441 H D 208 H D ABG HCO3 9 L* 15 L ABG O2 Saturation 101 H 101 H ABG Base Excess -20 L -11 L Oxygen Liter Flow FiO2 100 60 Sodium 138 Potassium 3.6 D Chloride 97 L Carbon Dioxide 16.7 L Anion Gap 24 H BUN 13 Creatinine 2.2 H D Estim Creat Clear Calc 34.9 L eGFR 25 L BUN/Creatinine Ratio 6 L Glucose [address] Glu mg/dL Hemoglobin A1c Calculated Osmolality 279 Lactic Acid 7.9 H* Calcium 8.9 Corrected Calcium 9.0 Phosphorus 2.6 Magnesium Total Bilirubin AST ALT Alkaline Phosphatase Lactate Dehydrogenase Troponin I B-Natriuretic Peptide Total Protein Albumin 3.9 Globulin Albumin/Globulin Ratio Ur Collection Type Urine Color Urine Clarity Urine pH Ur Specific [place] Urine Protein Urine Glucose (UA) Urine Ketones Urine Blood Urine Nitrite Urine Bilirubin Urine Urobilinogen (Auto) Ur Leukocyte Esterase Urine RBC Urine WBC Ur Squamous Epith Cells Urine Bacteria Ur Culture Indicated? Urine Opiates Screen Urine Fentanyl Screen Ur Barbiturates Screen U Amphetamin/Meth Scrn U Benzodiazepines Scrn U Cocaine Metab Screen U Marijuana (THC) Screen 05/18/25 05/18/25 05/18/25 03:08 04:35 04:57 WBC 10.4 RBC 2.69 L Hgb 8.8 L D Hct 28.1 L MCV 105 H MCH 32.7 MCHC 31.3 RDW Std Deviation 80.6 H Plt Count 93 L D Neut % (Auto) 84 H Lymph % (Auto) 9 L [place] % (Auto) 6 Eos % (Auto) 0 Baso % (Auto) 0 Neut # (Auto) 8.7 H Lymph # (Auto) 1.0 [place] # (Auto) 0.6 Eos # (Auto) 0.0 Baso # (Auto) 0.0 Immature Gran # (Auto) 0.06 H Absolute Nucleated RBC 0.03 H Immature Gran % 1 H Nucleated RBC % 0 PT INR APTT Puncture Site Right Radial ABG pH 7.46 H D ABG pCO2 31 L ABG pO2 194 H ABG HCO3 22 ABG O2 Saturation 101 H ABG Base Excess -1 Oxygen Liter Flow FiO2 45 Sodium 137 Potassium 3.2 L Chloride 97 L Carbon Dioxide 22.8 Anion Gap 17 H BUN 6 L Creatinine 1.1 D Estim Creat Clear Calc 69.2 eGFR 56 L BUN/Creatinine Ratio 5 L Glucose [address] Glu mg/dL 97 Hemoglobin A1c 5.0 Calculated Osmolality 272 L Lactic Acid 3.6 H Calcium 8.7 Corrected Calcium 9.0 Phosphorus 1.1 L Magnesium 1.7 Total Bilirubin 0.9 D AST 13 ALT 13 Alkaline Phosphatase 74 D Lactate Dehydrogenase Troponin I B-Natriuretic Peptide Total Protein 5.8 Albumin 3.6 Globulin 2.2 L Albumin/Globulin Ratio 1.6 Ur Collection Type Urine Color Urine Clarity Urine pH Ur Specific [place] Urine Protein Urine Glucose (UA) Urine Ketones Urine Blood Urine Nitrite Urine Bilirubin Urine Urobilinogen (Auto) Ur Leukocyte Esterase Urine RBC Urine WBC Ur Squamous Epith Cells Urine Bacteria Ur Culture Indicated? Urine Opiates Screen Urine Fentanyl Screen Ur Barbiturates Screen U Amphetamin/Meth Scrn U Benzodiazepines Scrn U Cocaine Metab Screen U Marijuana (THC) Screen 05/18/25 07:00 WBC RBC Hgb Hct MCV MCH MCHC RDW Std Deviation Plt Count Neut % (Auto) Lymph % (Auto) [place] % (Auto) Eos % (Auto) Baso % (Auto) Neut # (Auto) Lymph # (Auto) [place] # (Auto) Eos # (Auto) Baso # (Auto) Immature Gran # (Auto) Absolute Nucleated RBC Immature Gran % Nucleated RBC % PT INR APTT Puncture Site ABG pH ABG pCO2 ABG pO2 ABG HCO3 ABG O2 Saturation ABG Base Excess Oxygen Liter Flow FiO2 Sodium Potassium Chloride Carbon Dioxide Anion Gap BUN Creatinine Estim Creat Clear Calc eGFR BUN/Creatinine Ratio Glucose Estimated Ave Glu mg/dL Hemoglobin A1c Calculated Osmolality Lactic Acid 2.8 H Calcium Corrected Calcium Phosphorus Magnesium Total Bilirubin AST ALT Alkaline Phosphatase Lactate Dehydrogenase Troponin I B-Natriuretic Peptide Total Protein Albumin Globulin Albumin/Globulin Ratio Ur Collection Type Urine Color Urine Clarity Urine pH Ur Specific [place] Urine Protein Urine Glucose (UA) Urine Ketones Urine Blood Urine Nitrite Urine Bilirubin Urine Urobilinogen (Auto) Ur Leukocyte Esterase Urine RBC Urine WBC Ur Squamous Epith Cells Urine Bacteria Ur Culture Indicated? Urine Opiates Screen Urine Fentanyl Screen Ur Barbiturates Screen U Amphetamin/Meth Scrn U Benzodiazepines Scrn U Cocaine Metab Screen U Marijuana (THC) Screen ABG Interpretation ABG results: 05/17/25 05/17/25 05/17/25 15:40 18:01 19:47 ABG pH 7.05 L* 7.11 L* 7.10 L* ABG pCO2 15 L* 24 L 28 L ABG pO2 229 H 241 H 441 H D ABG HCO3 4 L* 8 L* 9 L* ABG O2 Saturation 100 H 101 H 101 H ABG Base Excess -24 L -20 L -20 L 05/17/25 05/18/25 22:05 04:57 ABG pH 7.27 L D 7.46 H D ABG pCO2 33 31 L ABG pO2 208 H D 194 H ABG HCO3 15 L 22 ABG O2 Saturation 101 H 101 H ABG Base Excess -11 L -1 Quality Measures Quality Measures none Assessment & Plan Assessment Current Active Medications: Generic Name Dose Route Start Last Admin Trade Name Freq PRN Reason Stop Dose Admin Acetaminophen 650 mg 05/17/25 15:48 05/17/25 17:05 Acetaminophen 325 Mg Tablet PO 06/16/25 15:47 650 mg Q6H PRN Administration PAIN OR FEVER > 100.4 Amiodarone HCl 200 mg 05/17/25 21:00 05/17/25 21:23 Amiodarone Hcl 200 Mg Tablet PO 06/16/25 20:59 Not Given On Hold: 05/18/25 06:42 BID RIANNA Comment: IV ORDER ACTIVE Dextrose 25 ml 05/17/25 16:04 Dextrose 50%-Water Inj 50 Ml Syringe IV 06/16/25 16:03 Q15MIN PRN BG 50-70 responsive npo pt Dextrose 50 ml 05/17/25 16:04 Dextrose 50%-Water Inj 50 Ml Syringe IV 06/16/25 16:03 Q15MIN PRN BG <50 OR BG <70 & pt unresponsive Divalproex Sodium 250 mg 05/17/25 22:00 05/18/25 05:10 Divalproex Sod Ec 125 Mg Tabec PO 06/16/25 21:59 Not Given TID RIANNA Glucagon 1 mg 05/17/25 16:04 Glucagon Inj 1 Mg Vial IM Q15MIN PRN BG <70, and no IV access Heparin Sodium (Porcine) 3,300 unit 05/17/25 16:12 05/18/25 09:11 Heparin Sod Inj 1000 Unit/Ml Vial 10 Ml INDWELLCAT 05/31/25 16:11 3,300 unit PRN PRN Administration DIALYSIS Albumin Human 25 gm in 100 mls @ 100 mls/min 05/17/25 13:44 05/17/25 17:03 Albuminar-25 Ivpb IV 100 mls/min PRN PRN Administration DIALYSIS Meropenem 500 mg/ Sodium 50 mls @ 100 mls/hr 05/18/25 09:00 05/18/25 08:50 Chloride IV 05/25/25 08:59 100 mls/hr QDAY RIANNA Administration Norepinephrine/Dextrose 8 mg in 250 mls @ 9.521 mls/hr 05/17/25 17:26 05/18/25 06:00 Levophed In D5w 8mg/250ml IV 06/16/25 17:25 0.17 mcg/kg/min .Q24H PRN 32.372 mls/hr PER PROTOCOL Titration Protocol 0.05 MCG/KG/MIN Fentanyl Citrate 2,500 mcg in 250 mls @ 2.5 mls/hr 05/17/25 17:57 05/18/25 06:00 Sublimaze Inj 2,500 Mcg/250 Ml Bag IV 05/22/25 17:56 175 mcg/hr .Q24H PRN 17.5 mls/hr PER PROTOCOL Titration Protocol 25 MCG/HR Dexmedetomidine/Sodium Chloride 400 mcg in 100 mls @ 5.078 mls/hr 05/18/25 03:50 05/18/25 05:30 Precedex Ivpb IV 06/17/25 03:49 0 mcg/kg/hr .[id number] PRN 0 mls/hr Per PROTOCOL Titration Protocol 0.2 MCG/KG/HR Amiodarone HCl/Dextrose 360 mg in 200 mls @ 16.667 mls/hr 05/18/25 09:00 05/18/25 09:32 Nexterone Ivpb IV 05/19/25 08:59 16.667 mls/hr .Q12H RIANNA Administration Potassium Phosphate 15 mmol in 250 mls @ 62.5 mls/hr 05/18/25 07:08 05/18/25 07:38 Pot Phos 15 Mmol In Ns 250 Ml IV 05/18/25 11:07 62.5 mls/hr X1 ONE Administration Magnesium Sulfate 4 gm in 50 mls @ 12.5 mls/hr 05/18/25 07:08 05/18/25 07:38 Magnesium Sulfate Ivpb IV 05/18/25 11:07 12.5 mls/hr X1 ONE Administration Levothyroxine Sodium 50 mcg 05/18/25 06:00 05/18/25 05:12 Levothyroxine Sodium 25 Mcg Tablet PO 06/17/25 05:59 50 mcg ACBR RIANNA Administration Melatonin 3 mg 05/17/25 16:14 Melatonin 3 Mg Tablet PO HS PRN sleep Multivitamins/Minerals 15 ml 05/18/25 09:00 05/18/25 08:52 Multivitamin 15 Ml Udc GT 06/17/25 08:59 15 ml QDAY RIANNA Administration Pantoprazole Sodium 40 mg 05/18/25 09:00 05/18/25 09:34 Pantoprazole Inj 40 Mg Vial IVP 06/17/25 08:59 40 mg QDAY RIANNA Administration Pharmacy Consult 1 each 05/18/25 08:27 Pharmacy Renal Dose Adjustment 1 Ea XX 06/17/25 08:26 PRN PRN CONSULT Scopolamine 1 mg 05/17/25 16:00 05/17/25 20:04 Scopolamine 1 Mg Tdsy TOP 06/16/25 15:59 Not Given Q3D [facility] Sodium Chloride 3 ml 05/17/25 13:24 05/17/25 13:36 Sodium Chloride Rt Cristina 0.9% 3 Ml Nebu INH 06/16/25 13:23 3 ml PRN PRN Administration SOLN Plan Hollie Whaley 64F with pmhx significant for CVA, atrial fibrillation on Xarelto, HFrEF (15-20% 04/2025), newly ESRD on HD (TThSat), hypothyroidism who presented to [facility] ED on 05/17 for SOB, admitted for lactic acidosis with hyperkalemia. Emergent HD begun, however 30 minutes into HD, patient became hypotensive and progressively confused. Patient was then admitted to ICU where she was subsequently placed on pressors and intubated. Cardiology consulted for management of atrial fibrillation with RVR. #Atrial fibrillation RVR 2/ #Lactic acidosis #Hx of atrial fibrillation Patient has a history of A-fib on Eliquis and previously took metoprolol XL 50 mg QD for rate control and on previous hospitalization, patient experienced bradycardia and hypotension with metoprolol and was started on amiodarone 200 mg BID. Admission labs ABG 7.05/15/229/4, K 6.1, bicarb <10, AG 32, BUN 27, Cr 4.1, glucose 42, lactic acid 22, Mg 2.2, LDH 337, trop 0.023, BNP 1945. EKG shows afib RVR rate 111 with left axis deviation. Patient is currently being intubated and tele in ICU showing atrial fibrillation RVR 120-130s. Atrial fibrillation RVR likely secondary to severe lactic acidosis. Ddx for lactic acidosis includes, ESBL UTI, TDC infection, bacteremia, medication s/e. CHADSVASC score 4, 4.8% stroke risk per year HASBLED 3 Plan: - Amiodarone bolus and continue amiodarone at 1 mg/min given patient hx of atrial fibrillation as well as low EF and to decrease arrhythmias such as VT and VF risk as pt does have dilated cardiomyopathy - Estimate patient will be on amiodarone drip for the next few days until can tolerate PO - If patient remains tachycardic, recommend to switch norepinephrine to phenylephrine given atrial fibrillation with RVR - Monitor QTc closely - Start heparin drip for anticoagulation over Eliquis as heparin is more convenient to stop if patient requires surgery or further operations - Consider restarting Eliquis once patient has been downgraded to floors - Telemetry/ICU for cardiac monitoring - Keep K>4 and Mg>2 #HFrEF (15-20% 04/2025) #Dilated cardiomyopathy 2022 Echocardiogram shows dilated cardiomyopathy, severe global hypokinesis with estimated EF 25 to 30%, normal RV size, LA mildly dilated, mild MR. 04/2025 Echocardiogram shows dilated cardiomyopathy, moderately dilated LV, severe global hypokinesis and severe systolic dysfunction estimated EF 15 to 20%. Normal RV size, reduced systolic function. RA estimated RVSP 45 mmHg, moderate pulmonary hypertension, moderate MR and mild TR, trace to mild AI, LA severely dilated, RA severely dilated, mildly dilated ascending body measuring 3.9 cm Plan: - Plan to initiate GDMT once blood pressure tolerates however avoid SGLT2 inhibitors due to current dialysis status - Strict I&O and daily weights - Current low suspicion for HFrEF exacerbation - Continue to follow up outpatient for further management - May need defibrilator due severe HFrEF if pt does not respond to maximum GDMT for more 3 months - Will need cardiac catheterization to rule out CAD as a cause of dilated cardiomyopathy (if not performed before) as outpatient and 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 Plan of care discussed with attending Dr. Swapna August, PGY-1 Internal Medicine Attending Provider Attestation/Addendum I have personally seen and examined the patient separately on the above date of service and discussed the plan of care with the resident. I reviewed the resident Dr. Lockhart consultation progress note and agree with the resident findings and plan in the note above and have also edited the documentation to reflect my findings and plan. Bishnu Barcenas M.D. Interventional Cardiology
[2025-05-18 10:07] LABS: Reflex Lactate? Y
[2025-05-18] MEDS: ALBUMIN HUMAN 25% IVPB 25 GM/100 ML BTL IV (10:27)
[2025-05-18 10:34] LABS: Lactic Acid, 3 HR 2.2 mMol/L (0.4-2.0)
[2025-05-18] MEDS: Norepinephrine/D5W 8mg/250ml 8 MG/250 ML BAG 32.372 MG IV (12:00)
[2025-05-18] MEDS: Heparin/D5w 25K 250 ML Ivpb 25,000 UNIT/250 ML BAG 10 UNIT IV (12:35)
[2025-05-18 12:37] LABS: Partial Thromboplastin Time 57.4 Seconds (22.0-36.0)
--- NOTE | 2025-05-18 13:21 | ESPR_ITS ---
<Statement entered by Luz Marina Arguello MD - 05/19/25 13:12> TOTAL CC TIME: 45 MIN I saw and evaluated the patient. I reviewed the resident?s note and agree with findings and plan as documented in the resident?s note. Upon my evaluation, this patient had a high probability of imminent or life- threatening deterioration due to septic shock, which required my direct attention, intervention, and personal management. This time is exclusive of time spent on procedures, which are documented separately if performed. Lactic acid is thankfully improved. The definitive diagnosis was not Clearly established. The patient denies toxic alcohol ingestions, when she was initially admitted serum osmolality/osmolar gap was not identified. She denies taking aspirin. She is not on metformin. Continue antibiotics and await culture results. Bedside echo clearly identified dilated left ventricle with fair right ventricular function and low caliber IVC. 25 g albumin attempted. <Statement entered by Jonatan Kimble MD - 05/18/25 16:20> I saw and examined patient personally and supervised PGY 1 resident, Dr. Beasley with formulating a management plan. I agree with the documentation with the exceptions as listed below. Patient is a 64-year-old female from [facility] with a past medical history significant for CVA with left-sided deficits, atrial fibrillation on Eliquis, HFrEF [15-20%], ESRD on HD [//fri], hypothyroidism and left staghorn calculi who presented with a chief complaint of shortness of breath. Upon investigation she was found to have a severe lactic acidosis of 23, pH 7.07, bicarb <10. Subsequently she was intubated due to declining GCS and inability to protect her airway and Levophed was started for hypotension which developed during attempted hemodialysis session. She was upgraded to ICU at that point. Problem list: 1. Acute metabolic encephalopathy secondary to lactic acidosis and sepsis 2. Septic shock secondary to due to left staghorn calculi UTI 3. Atrial fibrillation with RVR on amiodarone and heparin infusion 4. Chronic diastolic and systolic congestive heart failure with reduced ejection fraction [15-20%] 5. ESRD on HD [Friday//Friday] 6. Lactic acidosis?resolving 7. HAGMA?resolved This morning SAT was successful and patient able to follow commands. Subsequently SBT and extubation were performed successfully. Patient had speech language evaluation and was started on a diet. With regards to patient's septic shock, she is on renally dosed meropenem 500 mg IV twice daily started on [05/17?as well as Levophed titrating as necessary to maintain a MAP of >65. Source of her ESBL UTI is likely her left staghorn calculi. Patient will continue to have recurrent episodes of this similar problem unless the underlying cause is addressed. On her prior admission urology, Dr. Lawton was consulted who deemed patient not a suitable/fit candidate for surgical intervention at this point. They recommended that she follow-up with him outpatient, her appointment is still pending at this point. Today I had an extensive discussion with the patient regarding her long-term prognosis if the staghorn calculi is not addressed, she states that she wants to live and will attempt to obtain urgent urology consultation once she is discharged. From telemetry review patient was in A-fib with heart rate between 100s?120s overnight. She continues to be on amiodarone infusion and infusion as per cardiology recommendations. Maintaining K >3.4 and Mg >2. She continues to receive CRRT while's. Nephrology, Dr Landry recommendations. Goal 1.5 L ultrafiltration today. K was 3.2, Mg 1.7 and Phos 1.1, patient was repleted with K-Phos 30 mmol IV x 1 and magnesium sulfate 4 g IV x 1. Plan of care discussed with Attending Dr. Jos Kimble MD PGY 2 Disclaimer: This note was dictated by speech recognition. Minor errors in nematology teacher may be present due to voice recognition software. Documentation for date of: 05/18/25 Subjective Subjective Interval history: (Below account was synthesized primarily from chart checking as patient had already become intubated before this inspector automatic typewriter's interview) Patient is a 64-year-old F with a PMH of cerebrovascular accident, atrial fibrillation, heart failure with reduced ejection fraction (25-30% in January 2023), chronic kidney disease (ON dialysis Friday, and Friday), and hypothyroidism who was sent from a SNF for worsening oxygen saturation. Of note, patient had apparently missed her Friday HD session. In the ED, vitals showed: BP 114/88 HR 112 RR 22 Temp 97.9 SpO2 100% on 15 L oxy mask with FiO2 100% ED Course: CBC showed WBC 15.3, hemoglobin 11.0 (MCV 113, RDW 91.3), and platelet count 201. Coagulation panel showed PT 17.2, INR 1.6, APTT 36.7. ABG of the right radial artery showed pH 7.05, pCO2 15, PaO2 229, and HCO3 4. CMP showed sodium 139, potassium 6.1, chloride 97, carbon dioxide less than 10.0, anion gap 32, BUN 27, creatinine 4.1, eGFR 12, blood glucose 42, lactic acid 22.0, LDH 337, and BNP 1945. UA showed cloudy, light orange urine with pH 5.5, 1+ protein, 1+ ketones, 3+ blood, negative nitrate, positive leukocyte esterase, RBC 82, and WBC 1329. UDS was positive for opiates (patient received fentanyl in the hospital) and negative for all else. Imagin/16 chest x-ray showed mild enlargement of the cardiac contour and prominent vascular congestion suggestive of mild heart failure but without riccardo pulmonary edema or lobar pneumonia. 05/17 EKG showed atrial fibrillation with rapid ventricular response and heart rate 111, marked left axis deviation and bundle branch block, and QTc 492. Initially, a rapid response had been called around 16:30 for worsening SpO2 of 78% and patient was switched from oxy mask to high flow nasal cannula which improved her SpO2 to 92%. At that time, Nephrology (Dr. Landry) was consulted and it was recommended that patient begin receiving inpatient HD. Patient was started on dialysis and tolerated it for 30 minutes before developing MAP of 58-61. At this point, HD was paused and over the next 40 minutes patient received IV albumin 25 mL x2 and IV Tylenol for shivering and hypothermia of 96.4 with plans to administer IV meropenem 1 gm post-HD. However, patient's BP did not improve during this reprieve and a second rapid response was called around 17:45 for worsening hypotension of 80/40 and deteriorating mentation (shifting from A&O x 2 to responding only to sternal rub). Due to the above, ICU was contacted and patient was upgraded from Telemetry to ICU for pressor support with Levophed and intubation (induction agent: IV etomidate 30 mg, muscle relaxant: IV rocuronium 100 mg) in the setting of suspected septic shock 2/2 UTI. Central femoral line has been placed successfully but arterial line was unable to be installed. Patient's person to notify, Damian Hopkins (son), was called and informed about patient's diagnosis, current acute status, and admission into the ICU. Interval History 05/18/25: No overnight events. Patient was examined at bedside; she has been extubated and is no longer being chemically sedated with IV fentanyl. With regards to labs, WBC down trended to 10.4 from 15.3, hemoglobin down trended to 8.8 from 11.0, platelet count down trended to 93 from 201, APTT up trended to 57.4 from 36.7, ABG blood pH up trended to 7.46 from 7.05, pCO2 up trended to 31 from 15, PO2 194, HCO3 up trended to 22 from 4, potassium down trended to 3.2 from 6.1, carbon dioxide up trended to 22.8 from less than 10.0, anion gap downtrended to 17 from 32, BUN down trended to 6 from 27, creatinine down trended to 1.1 from 4.1, eGFR up trended to 56 from 12, blood glucose 116, hemoglobin A1c 5.0, lactic acid down trended to 2.2 from 22.0, phosphorus 1.1, and magnesium 1.7. She is slated to receive CRRT today. Due to continued need for pressor support, patient continues to meet criteria for ICU management. Exam Vital Signs Temp Pulse Resp BP Pulse Ox O2 Del Method O2 Flow Rate 97.0 F 109 H 16 108/67 100 Mechanical Ventilation 2 05/18/25 09:00 05/18/25 10:31 05/18/25 10:31 05/18/25 10:31 05/18/25 10:31 05/18/25 08:00 05/18/25 09:32 FiO2 40 05/18/25 08:14 Narrative Exam Physical Exam: General: A/O x3, somnolent, no acute distress, appears older than stated age Head: Normocephalic, atraumatic. Eyes: PERRL, EOMI. Anicteric, vision grossly intact. Ears: No ear pain, no ear discharge, Hearing grossly intact. Mouth/Throat: Oral mucosa dry. No obvious lesions in oropharynx. Cardiovascular: Tachycardic, irregularly irregular rhythm, no murmur, no JVD or carotid bruits. +S1/S2. Right IJ TDC in place with dried blood. Right femoral line in place. Respiratory: No longer intubated. Oxygen Mask in place. Bilateral lung breath sounds appear distant on auscultation, respirations unlabored, no crackles, no wheezing. No accessory muscle use. Gastrointestinal: Soft, nontender, non-distended, no palpable masses. No guarding or rebound tenderness. Peristalsis present. Extremities: Trace pitting edema of bilateral lower extremities, left heel wound wrapped, contracture of left hand, 4/5 strength R and L UE, 1/5 R and L LE Neuro: No focal deficits observed. Conversant, moving all extremities. No overt cerebellar signs/incoordination. Psychiatric: Cooperative, appropriate affect. Objective Labs 05/18/25 04:35 05/18/25 13:01 Labs: Laboratory Results - last 24 hr 05/17/25 05/17/25 05/17/25 12:38 15:40 15:54 WBC RBC Hgb Hct MCV MCH MCHC RDW Std Deviation Plt Count Neut % (Auto) Lymph % (Auto) [place] % (Auto) Eos % (Auto) Baso % (Auto) Neut # (Auto) Lymph # (Auto) [place] # (Auto) Eos # (Auto) Baso # (Auto) Immature Gran # (Auto) Absolute Nucleated RBC Immature Gran % Nucleated RBC % APTT Puncture Site Right Radial ABG pH 7.05 L* ABG pCO2 15 L* ABG pO2 229 H ABG HCO3 4 L* ABG O2 Saturation 100 H ABG Base Excess -24 L Oxygen Liter Flow 15 FiO2 Sodium 139 Potassium 6.1 H* Chloride 97 L Carbon Dioxide < 10.0 L* Anion Gap 32 H BUN 27 H Creatinine 4.1 H* D Estim Creat Clear Calc 18.7 L eGFR 12 L* BUN/Creatinine Ratio 7 L Glucose 42 L* Estimated Ave Glu mg/dL Hemoglobin A1c Calculated Osmolality 279 Lactic Acid 22.0 H* Calcium 9.5 Corrected Calcium 9.8 Phosphorus Magnesium 2.2 Total Bilirubin 0.4 AST 19 ALT 22 Alkaline Phosphatase 95 Lactate Dehydrogenase 337 H Troponin I 0.023 B-Natriuretic Peptide 1945 H* Total Protein 6.6 Albumin 3.6 Globulin 3.0 Albumin/Globulin Ratio 1.2 05/17/25 05/17/25 05/17/25 18:01 18:58 19:47 WBC RBC Hgb Hct MCV MCH MCHC RDW Std Deviation Plt Count Neut % (Auto) Lymph % (Auto) [place] % (Auto) Eos % (Auto) Baso % (Auto) Neut # (Auto) Lymph # (Auto) [place] # (Auto) Eos # (Auto) Baso # (Auto) Immature Gran # (Auto) Absolute Nucleated RBC Immature Gran % Nucleated RBC % APTT Puncture Site Right Radial Left Radial ABG pH 7.11 L* 7.10 L* ABG pCO2 24 L 28 L ABG pO2 241 H 441 H D ABG HCO3 8 L* 9 L* ABG O2 Saturation 101 H 101 H ABG Base Excess -20 L -20 L Oxygen Liter Flow 15 FiO2 100 Sodium Potassium Chloride Carbon Dioxide Anion Gap BUN Creatinine Estim Creat Clear Calc eGFR BUN/Creatinine Ratio Glucose Estimated Ave Glu mg/dL Hemoglobin A1c Calculated Osmolality Lactic Acid 18.0 H* Calcium Corrected Calcium Phosphorus Magnesium Total Bilirubin AST ALT Alkaline Phosphatase Lactate Dehydrogenase Troponin I B-Natriuretic Peptide Total Protein Albumin Globulin Albumin/Globulin Ratio 05/17/25 05/17/25 05/18/25 22:05 23:07 03:08 WBC RBC Hgb Hct MCV MCH MCHC RDW Std Deviation Plt Count Neut % (Auto) Lymph % (Auto) [place] % (Auto) Eos % (Auto) Baso % (Auto) Neut # (Auto) Lymph # (Auto) [place] # (Auto) Eos # (Auto) Baso # (Auto) Immature Gran # (Auto) Absolute Nucleated RBC Immature Gran % Nucleated RBC % APTT Puncture Site Left Radial ABG pH 7.27 L D ABG pCO2 33 ABG pO2 208 H D ABG HCO3 15 L ABG O2 Saturation 101 H ABG Base Excess -11 L Oxygen Liter Flow FiO2 60 Sodium 138 Potassium 3.6 D Chloride 97 L Carbon Dioxide 16.7 L Anion Gap 24 H BUN 13 Creatinine 2.2 H D Estim Creat Clear Calc 34.9 L eGFR 25 L BUN/Creatinine Ratio 6 L Glucose [address] Glu mg/dL Hemoglobin A1c Calculated Osmolality 279 Lactic Acid 7.9 H* 3.6 H Calcium 8.9 Corrected Calcium 9.0 Phosphorus 2.6 Magnesium Total Bilirubin AST ALT Alkaline Phosphatase Lactate Dehydrogenase Troponin I B-Natriuretic Peptide Total Protein Albumin 3.9 Globulin Albumin/Globulin Ratio 05/18/25 05/18/25 05/18/25 04:35 04:57 07:00 WBC 10.4 RBC 2.69 L Hgb 8.8 L D Hct 28.1 L MCV 105 H MCH 32.7 MCHC 31.3 RDW Std Deviation 80.6 H Plt Count 93 L D Neut % (Auto) 84 H Lymph % (Auto) 9 L [place] % (Auto) 6 Eos % (Auto) 0 Baso % (Auto) 0 Neut # (Auto) 8.7 H Lymph # (Auto) 1.0 [place] # (Auto) 0.6 Eos # (Auto) 0.0 Baso # (Auto) 0.0 Immature Gran # (Auto) 0.06 H Absolute Nucleated RBC 0.03 H Immature Gran % 1 H Nucleated RBC % 0 APTT 57.4 H D Puncture Site Right Radial ABG pH 7.46 H D ABG pCO2 31 L ABG pO2 194 H ABG HCO3 22 ABG O2 Saturation 101 H ABG Base Excess -1 Oxygen Liter Flow FiO2 45 Sodium 137 Potassium 3.2 L Chloride 97 L Carbon Dioxide 22.8 Anion Gap 17 H BUN 6 L Creatinine 1.1 D Estim Creat Clear Calc 69.2 eGFR 56 L BUN/Creatinine Ratio 5 L Glucose [address] Glu mg/dL 97 Hemoglobin A1c 5.0 Calculated Osmolality 272 L Lactic Acid 2.8 H Calcium 8.7 Corrected Calcium 9.0 Phosphorus 1.1 L Magnesium 1.7 Total Bilirubin 0.9 D AST 13 ALT 13 Alkaline Phosphatase 74 D Lactate Dehydrogenase Troponin I B-Natriuretic Peptide Total Protein 5.8 Albumin 3.6 Globulin 2.2 L Albumin/Globulin Ratio 1.6 05/18/25 10:10 WBC RBC Hgb Hct MCV MCH MCHC RDW Std Deviation Plt Count Neut % (Auto) Lymph % (Auto) [place] % (Auto) Eos % (Auto) Baso % (Auto) Neut # (Auto) Lymph # (Auto) [place] # (Auto) Eos # (Auto) Baso # (Auto) Immature Gran # (Auto) Absolute Nucleated RBC Immature Gran % Nucleated RBC % APTT Puncture Site ABG pH ABG pCO2 ABG pO2 ABG HCO3 ABG O2 Saturation ABG Base Excess Oxygen Liter Flow FiO2 Sodium Potassium Chloride Carbon Dioxide Anion Gap BUN Creatinine Estim Creat Clear Calc eGFR BUN/Creatinine Ratio Glucose Estimated Ave Glu mg/dL Hemoglobin A1c Calculated Osmolality Lactic Acid 2.2 H Calcium Corrected Calcium Phosphorus Magnesium Total Bilirubin AST ALT Alkaline Phosphatase Lactate Dehydrogenase Troponin I B-Natriuretic Peptide Total Protein Albumin Globulin Albumin/Globulin Ratio ABG Interpretation ABG results: 05/17/25 05/17/25 05/17/25 15:40 18:01 19:47 ABG pH 7.05 L* 7.11 L* 7.10 L* ABG pCO2 15 L* 24 L 28 L ABG pO2 229 H 241 H 441 H D ABG HCO3 4 L* 8 L* 9 L* ABG O2 Saturation 100 H 101 H 101 H ABG Base Excess -24 L -20 L -20 L 05/17/25 05/18/25 22:05 04:57 ABG pH 7.27 L D 7.46 H D ABG pCO2 33 31 L ABG pO2 208 H D 194 H ABG HCO3 15 L 22 ABG O2 Saturation 101 H 101 H ABG Base Excess -11 L -1 Quality Measures Quality Measures none Assessment & Plan Assessment Current Active Medications: Generic Name Dose Route Start Last Admin Trade Name Freq PRN Reason Stop Dose Admin Acetaminophen 650 mg 05/17/25 15:48 05/17/25 17:05 Acetaminophen 325 Mg Tablet PO 06/16/25 15:47 650 mg Q6H PRN Administration PAIN OR FEVER > 100.4 Amiodarone HCl 200 mg 05/17/25 21:00 05/17/25 21:23 Amiodarone Hcl 200 Mg Tablet PO 06/16/25 20:59 Not Given On Hold: 05/18/25 06:42 BID RIANNA Comment: IV ORDER ACTIVE Dextrose 25 ml 05/17/25 16:04 Dextrose 50%-Water Inj 50 Ml Syringe IV 06/16/25 16:03 Q15MIN PRN BG 50-70 responsive npo pt Dextrose 50 ml 05/17/25 16:04 Dextrose 50%-Water Inj 50 Ml Syringe IV 06/16/25 16:03 Q15MIN PRN BG <50 OR BG <70 & pt unresponsive Divalproex Sodium 250 mg 05/17/25 22:00 05/18/25 05:10 Divalproex Sod Ec 125 Mg Tabec PO 06/16/25 21:59 Not Given TID RIANNA Glucagon 1 mg 05/17/25 16:04 Glucagon Inj 1 Mg Vial IM Q15MIN PRN BG <70, and no IV access Heparin Sodium (Porcine) 3,300 unit 05/17/25 16:12 05/18/25 09:11 Heparin Sod Inj 1000 Unit/Ml Vial 10 Ml INDWELLCAT 05/31/25 16:11 3,300 unit PRN PRN Administration DIALYSIS Albumin Human 25 gm in 100 mls @ 100 mls/min 05/17/25 13:44 05/17/25 17:03 Albuminar-25 Ivpb IV 100 mls/min PRN PRN Administration DIALYSIS Meropenem 500 mg/ Sodium 50 mls @ 100 mls/hr 05/18/25 09:00 05/18/25 08:50 Chloride IV 05/25/25 08:59 100 mls/hr QDAY RIANNA Administration Norepinephrine/Dextrose 8 mg in 250 mls @ 9.521 mls/hr 05/17/25 17:26 05/18/25 12:00 Levophed In D5w 8mg/250ml IV 06/16/25 17:25 Infused .Q24H PRN Titration PER PROTOCOL Protocol 0.05 MCG/KG/MIN Fentanyl Citrate 2,500 mcg in 250 mls @ 2.5 mls/hr 05/17/25 17:57 05/18/25 07:38 Sublimaze Inj 2,500 Mcg/250 Ml Bag IV 05/22/25 17:56 0 mcg/hr .Q24H PRN 0 mls/hr PER PROTOCOL Titration Protocol 25 MCG/HR Dexmedetomidine/Sodium Chloride 400 mcg in 100 mls @ 5.078 mls/hr 05/18/25 03:50 05/18/25 05:30 Precedex Ivpb IV 06/17/25 03:49 0 mcg/kg/hr .[id number] PRN 0 mls/hr Per PROTOCOL Titration Protocol 0.2 MCG/KG/HR Amiodarone HCl/Dextrose 360 mg in 200 mls @ 16.667 mls/hr 05/18/25 09:00 05/18/25 09:32 Nexterone Ivpb IV 05/19/25 08:59 16.667 mls/hr .Q12H RIANNA Administration Heparin Sodium/Dextrose 25,000 unit in 250 mls @ 10 mls/hr 05/18/25 13:00 05/18/25 12:35 Heparin In D5w Ivpb IV 06/01/25 12:59 10.04 units/kg/hr .Q24H RIANNA 10 mls/hr Protocol Administration 10.04 UNITS/KG/HR Levothyroxine Sodium 50 mcg 05/18/25 06:00 05/18/25 05:12 Levothyroxine Sodium 25 Mcg Tablet PO 06/17/25 05:59 50 mcg ACBR RIANNA Administration Melatonin 3 mg 05/17/25 16:14 Melatonin 3 Mg Tablet PO HS PRN sleep Multivitamins/Minerals 15 ml 05/18/25 09:00 05/18/25 08:52 Multivitamin 15 Ml Udc GT 06/17/25 08:59 15 ml QDAY RIANNA Administration Pantoprazole Sodium 40 mg 05/18/25 09:00 05/18/25 09:34 Pantoprazole Inj 40 Mg Vial IVP 06/17/25 08:59 40 mg QDAY RIANNA Administration Pharmacy Consult 1 each 05/18/25 08:27 Pharmacy Renal Dose Adjustment 1 Ea XX 06/17/25 08:26 PRN PRN CONSULT Scopolamine 1 mg 05/17/25 16:00 05/17/25 20:04 Scopolamine 1 Mg Tdsy TOP 06/16/25 15:59 Not Given Q3D RIANNA Sodium Chloride 3 ml 05/17/25 13:24 05/17/25 13:36 Sodium Chloride Rt Cristina 0.9% 3 Ml Nebu INH 06/16/25 13:23 3 ml PRN PRN Administration SOLN Plan Patient is a 64-year-old F with a PMH of cerebrovascular accident, atrial fibrillation, heart failure with reduced ejection fraction (25-30% in January 2023), chronic kidney disease (ON dialysis Friday, and Friday), and hypothyroidism who was sent from a SNF for worsening oxygen saturation. Patient received inpatient HD due to multiple metabolic abnormalities but developed pervasive and refractory hypotension during the session. Due to the above, ICU was contacted and patient was upgraded from Telemetry to ICU for pressor support with Levophed and intubation (induction agent: IV etomidate 30 mg, muscle relaxant: IV rocuronium 100 mg) in the setting of suspected septic shock 2/2 UTI. No overnight events. Patient was examined at bedside; she has been extubated and is no longer being chemically sedated with IV fentanyl. With regards to labs, WBC down trended to 10.4 from 15.3, hemoglobin down trended to 8.8 from 11.0, platelet count down trended to 93 from 201, APTT up trended to 57.4 from 36.7, ABG blood pH up trended to 7.46 from 7.05, pCO2 up trended to 31 from 15, PO2 194, HCO3 up trended to 22 from 4, potassium down trended to 3.2 from 6.1, carbon dioxide up trended to 22.8 from less than 10.0, anion gap downtrended to 17 from 32, BUN down trended to 6 from 27, creatinine down trended to 1.1 from 4.1, eGFR up trended to 56 from 12, blood glucose 116, hemoglobin A1c 5.0, lactic acid down trended to 2.2 from 22.0, phosphorus 1.1, and magnesium 1.7. She is slated to receive CRRT today. Due to continued need for pressor support, patient continues to meet criteria for ICU management. NEURO #Acute encephalopathy, likely multifactorial (improving) DDx: septic encephalopathy, hypoglycemia-related encephalopathy, other metabolic encephalopathy, hypoperfusion-related cerebral dysfunction, AMS 2/2 UTI, hospital associated-delirium Dx: -ABG of the right radial artery showed pH 7.05, pCO2 15, PaO2 229, and HCO3 4. -CMP showed sodium 139, potassium 6.1, chloride 97, carbon dioxide less than 10.0, anion gap 32, BUN 27, creatinine 4.1, eGFR 12, blood glucose 42, lactic acid 22.0, LDH 337, and BNP 1945. -UA showed cloudy, light orange urine with pH 5.5, 1+ protein, 1+ ketones, 3+ blood, negative nitrate, positive leukocyte esterase, RBC 82, and WBC 1329. -UDS was positive for opiates (patient received fentanyl in the hospital) and negative for all else. Rx: -Intubated for airway protection -Sedation for comfort and maintenance of RASS -2 as detailed below -Treat patient's other underlying pathological processes and electrolyte derangements RRx: -Patient has been extubated and weaned from sedation and mental status has markedly improved #Chemical sedation (stopped) Patient was previously chemically sedated with IV fentanyl titrated to maintain RASS of -2 for comfort while she was intubated Today (05/18), she has been weaned off of IV fentanyl and is conscious albeit slightly somnolent CARDIO #Septic shock, requiring pressor support (resolving) During dialysis, patient developed a MAP of 58-61 and acute hypotension of 80/40 that was refractory to IV albumin and required pressor support DDx: cardiogenic shock (EF 25-30%), hypotension 2/2 atrial fibrillation with RVR, intravascular depletion Dx: -ABG of the right radial artery showed pH 7.05, pCO2 15, PaO2 229, and HCO3 4. -CMP showed sodium 139, potassium 6.1, chloride 97, carbon dioxide less than 10.0, anion gap 32, BUN 27, creatinine 4.1, eGFR 12, blood glucose 42, lactic acid 22.0, LDH 337, and BMP 1945. Rx: -IV Levophed titrated to maintain MAP>65 -IV meropenem 500 mg qD to treat underlying infectious cause, likely UTI -Central line placed at femoral vein for central access RRx: -Patient is currently on IV Levophed 0.17 due to continued hypotension and need for CRRT #Atrial fibrillation with RVR Per Cardiology note, patient has history of atrial fibrillation on Eliquis and previously took metoprolol XL 50 mg qD for rate control During previous hospitalization, patient experienced bradycardia and hypotension with metoprolol and was started on PO amiodarone 200 mg BID Currently suspect that atrial fibrillation with RVR is 2/2 severe lactic acidosis (LA 22.0) which itself could be due to many causes including any combination of the following: ESBL UTI, CLABSI, bacteremia, adverse medication effect, etc. CHADSVASC score 4, 4.8% stroke risk per year HASBLED 3 Dx: -05/17 EKG showed atrial fibrillation with rapid ventricular response and heart rate 111, marked left axis deviation and bundle branch block, and QTc 492 -Other pertinent labs: lactic acid 22.0, potassium 6.1, CO2 less than 10.0, anion gap 32, BUN 27, creatinine 4.1, blood glucose 42, LDH 337, BNP 1945, ABG blood pH 7.05, HCO3 4 Rx: -Per cardiology recommendations, continue scheduled IV amiodarone drip @ 16.667 mL/hr -Per cardiology recommendations, consider restarting PO Eliquis 5 mg BID once patient has been downgraded to floors -Continuous cardiac monitoring -Maintain K>4 and Mg>2 RRx: -At this time, patient's atrial fibrillation seems well controlled, will continue to monitor #HFrEF (EF 15-20%, 04/2025) #Dilated cardiomyopathy Cardiology currently has low suspicion for HFrEF exacerbation Dx: -2022 echocardiogram showed dilated cardiomyopathy, severe global hypokinese with estimated EF of 25-30%, normal RV size, mildly dilated LA, and mild MR -04/2025 echocardiogram shows dilated cardiomyopathy, moderately dilated LV, severe global hypokinesis and severe systolic dysfunction with estimated EF of 15-20%. It also showed normal RV size, reduced systolic function, RA estimated RVSP 45 mmHg, moderate pulmonary hypertension, moderate MR and mild TR, trace to mild AI, severely dilated LA, severely dilated RA, and mildly dilated ascending body measuring 3.9 cm -BNP 1944, Troponin I WNL Rx: -Per cardiology recommendations, plan to initiate GDMT once blood pressure can tolerate it but avoid SGLT-2 inhibitors due to patient's ESRD on HD status -Strict I's & O's and daily weights -Outpatient follow-up with cardiology for further management (may need defibrillator if HFrEF symptoms are refractory to GDMT for over 3 months and cardiac catheterization to rule out CAD as a cause of dilated cardiomyopathy) RRx: -Patient still appears to be exhibiting signs of 3rd-spacing, will continue to monitor fluid status (CRRT planned for today) PULM #Acute respiratory failure 2/2 metabolic acidosis (resolved) #Compensatory respiratory alkalosis #s/p extubation Patient initially presented with a lactic acid of 22.0, which likely precipitated compensatory hyperventilation that may have ultimately lead to respiratory collapse Dx: -ABG of the right radial artery showed pH 7.05, pCO2 15, PaO2 229, and HCO3 4. -No radiographic evidence of ongoing pneumonia, but there is some blunting of the costophrenic angles noted Rx: -Intubated with ventilatory support (now s/p extubation) RRx: -Has now been extubated and respiratory status appears markedly improved GI #No active problems NEPHRO #ESRD on HD (//Fri), missed HD session #Hyperkalemia Dx: -ABG of the right radial artery showed pH 7.05, pCO2 15, PaO2 229, and HCO3 4. Rx: -Consulted nephrology, awaiting recommendations (will receive CRRT today) -Plan to resume HD once hemodynamically stable RRx: -Patient did not tolerate inpatient HD make-up session well as evidenced by the significant hypotension of 80/40 she developed #Lactic acidosis (resolved) #HAGMA Likely 2/2 a combination of etiologies including tissue hypoperfusion 2/2 septic shock and/or cardiogenic shock, hypoglycemia-induced anaerobic metabolism, missed HD (less likely due to relatively mild BUN elevations), ESBL UTI or CLABSI, or bacteremia DDx: occult mesenteric ischemia Dx: -ABG of the right radial artery showed pH 7.05, pCO2 15, PaO2 229, and HCO3 4. -Can consider ordering a salicylate level Rx: -CRRT today -Hemodynamic support as outlined for #Septic shock in Cardio section RRx: -Lactic acidosis has now down-trended from 22.0 to 2.2 HEME #Leukocytosis #Macrocytic anemia Upon admission, CBC showed WBC 15.3 and hemoglobin 11.0 (MCV 113, RDW 91.3). Likely 2/2 septic shock 2/2 UTI and reduced erythropoiesis 2/2 ESRD status, respectively RRx: -Today, hemoglobin downtrended to 8.8 from 11.0 and WBC downtrended to 10.4 from 15.3 -Continue to monitor CBC ENDO #No active problems ID #Complicated UTI #Pyuria Of note, patient was apparently discharged on 05/11/25 for nausea/vomiting/abdominal pain 2/2 septic shock 2/2 E.coli UTI and also has PMH of ESBL UTI Dx: -UA showed cloudy, light orange urine with pH 5.5, 1+ protein, 1+ ketones, 3+ blood, negative nitrate, positive leukocyte esterase, RBC 82, and WBC 1329. Rx: -IV meropenem 500 mg qD -Follow up on urine cultures to guide antibiotic de-escalation -Follow up on blood cultures RRx: -Monitor for fever, leukocytosis, and urinary symptoms to assess for antibiotic efficacy once patient has been stabilized in the context of breathing and circulation MSK #No active problems SKIN #No active problems Disposition: ICU for pressor support with Levophed in the setting of suspected septic shock with multiorgan dysfunction 2/2 UTI DVT prophylaxis: Heparin GI prophylaxis: Protonix Diet: Renal Turner: Present Lines: Peripheral IV, Central IV Antibiotics: IV meropenem 500 mg qD CODE STATUS: FULL Patient plan of care was discussed with the attending aviation mechanic, Dr. Arguello. Jung Beasley, DO Internal Medicine, PGY-1
[2025-05-18 13:46] LABS: Albumin, Serum 3.5 gm/dL (3.4-4.8); Anion Gap 14 (7-16); BUN/Creatinine Ratio 5 Ratio (12-20); Blood Urea Nitrogen < 5 mg/dL (9-23); Calcium 8.1 mg/dL (8.3-10.6); Calcium (Corrected) 8.5 mg/dL (8.5-10.1); Carbon Dioxide 24.6 mMol/L (20.0-31.0); Chloride 98 mMol/L (98-107); Creatinine (Component) 1.1 mg/dL (0.6-1.3); Estimated Creatinine Clearance 69.2 mL/min (>60); Glucose 128 mg/dL (74-106); Osmolality,Calculated 273 (275-295); Phosphorous 2.0 mg/dL (2.4-5.1); Potassium 2.9 mMol/L (3.4-5.1); Sodium 137 mMol/L (136-145); eGFR 56 See Note
[2025-05-18] MEDS: DIVALPROEX SOD EC 125 MG TABEC 250 MG PO ×2 (13:49→21:04)
--- NOTE | 2025-05-18 15:47 | PC.SS ---
Update: Patient on nasal cannula. Patient receiving dialysis session. Patient is established with outpatient dialysis. Dr. Landry is sisal picker. Patient receiving pressor support. Afebrile. Renal diet.
[2025-05-18 18:33] LABS: Albumin, Serum 3.8 gm/dL (3.4-4.8); Anion Gap 14 (7-16); BUN/Creatinine Ratio 5 Ratio (12-20); Blood Urea Nitrogen 6 mg/dL (9-23); Calcium 8.3 mg/dL (8.3-10.6); Calcium (Corrected) 8.5 mg/dL (8.5-10.1); Carbon Dioxide 23.6 mMol/L (20.0-31.0); Chloride 98 mMol/L (98-107); Creatinine (Component) 1.2 mg/dL (0.6-1.3); Estimated Creatinine Clearance 63.4 mL/min (>60); Glucose 183 mg/dL (74-106); Osmolality,Calculated 274 (275-295); Phosphorous 1.7 mg/dL (2.4-5.1); Potassium 3.0 mMol/L (3.4-5.1); Sodium 136 mMol/L (136-145); eGFR 51 See Note
[2025-05-18 18:46] LABS: Partial Thromboplastin Time 108.7 Seconds (22.0-36.0)
[2025-05-18 20:07] LABS: Albumin, Serum 3.8 gm/dL (3.4-4.8); Anion Gap 15 (7-16); BUN/Creatinine Ratio 5 Ratio (12-20); Blood Urea Nitrogen 7 mg/dL (9-23); Calcium 8.5 mg/dL (8.3-10.6); Calcium (Corrected) 8.7 mg/dL (8.5-10.1); Carbon Dioxide 23.8 mMol/L (20.0-31.0); Chloride 97 mMol/L (98-107); Creatinine (Component) 1.3 mg/dL (0.6-1.3); Estimated Creatinine Clearance 58.5 mL/min (>60); Glucose 186 mg/dL (74-106); Osmolality,Calculated 274 (275-295); Phosphorous 1.7 mg/dL (2.4-5.1); Potassium 3.0 mMol/L (3.4-5.1); Sodium 136 mMol/L (136-145); eGFR 46 See Note
[2025-05-18] MEDS: Norepinephrine/D5W 8mg/250ml 8 MG/250 ML BAG 36.18 MG IV (20:49)
[2025-05-18] MEDS: HYDROcodone/APAP 5/325 TABLET 1 TAB PO (22:03)
[2025-05-18] MEDS: POTASSIUM CHL 10 mEq IVPB 10 MEQ/100 ML BAG 100 MEQ IV ×2 (22:04→23:22)
[2025-05-18 23:15] LABS: Albumin, Serum 3.4 gm/dL (3.4-4.8); Anion Gap 11 (7-16); BUN/Creatinine Ratio 8 Ratio (12-20); Blood Urea Nitrogen < 5 mg/dL (9-23); Calcium 8.1 mg/dL (8.3-10.6); Calcium (Corrected) 8.6 mg/dL (8.5-10.1); Carbon Dioxide 25.3 mMol/L (20.0-31.0); Chloride 101 mMol/L (98-107); Creatinine (Component) 0.6 mg/dL (0.6-1.3); Estimated Creatinine Clearance 126.8 mL/min (>60); Glucose 132 mg/dL (74-106); Osmolality,Calculated 273 (275-295); Phosphorous 1.1 mg/dL (2.4-5.1); Potassium 3.6 mMol/L (3.4-5.1); Sodium 137 mMol/L (136-145); eGFR > 60 See Note
--- NOTE | 2025-05-18 23:37 | ESCONSULT_ITS ---
RE: RUBÉN VIVAR : 1960 DATE OF CONSULTATION: 05/18/2025 REASON FOR REFERRAL: Provision of dialytic needs. REFERRING PHYSICIAN: Silvia Anne DO. HISTORY OF PRESENT ILLNESS: This patient is a 64-year-old woman with past medical history significant for CVA, atrial fibrillation, heart failure with reduced ejection fraction of 15%-20%, moderate pulmonary hypertension, and ESRD, on dialysis since 04/30/2025, dialyzing at [facility] every Friday, , and Friday, who presented to the hospital yesterday with shortness of breath and hypoxia. The patient was dialyzed last week at the dialysis unit and during that time, we were able to remove about 3 L each at dialysis session. The patient while at the senior living suddenly became more hypoxic with O2 sat in the 80s and thus was sent to emergency room for further evaluation and management. While in the emergency room yesterday, she was found with severe lactic acidosis and a CO2 of less than 10. The patient was also hyperkalemic with a potassium of 6.1. She was emergently dialyzed; however, during dialysis, blood pressures were very low and dialysis was stopped. Rapid response was called and she was transferred to ICU and restarted her on PIRRT. Overnight, patient did well on PIRRT and we were able to remove at least 1.2 L. When she was discharged from the hospital on 05/11/2025, she admitted that she went back to eating fast food given by family members while at senior living. The patient was very swollen upon admission as well. Currently, she is tolerating PIRRT and is now on amiodarone drip. Her CO2 improved from less than 10 to 16.7 and lactic acid went down from 22 to 3.6. The patient is more alert and awake and able to communicate. PAST MEDICAL HISTORY: Atrial fibrillation, hypothyroidism, CVA, CHF with severe global hypokinesis, and a huge left staghorn calculus. SURGICAL HISTORY: Spinal dialysis catheter placement. CURRENT MEDICATIONS: 1. Acetaminophen. 2. Albuterol. 3. Amiodarone 200 mg b.i.d. 4. Depakote 250 mg p.o. t.i.d. 5. Heparin drip. 6. Levothyroxine 50 mcg p.o. daily. 7. IV Merrem 500 mg daily. 8. Pantoprazole 40 mg IV daily. PHYSICAL EXAMINATION: GENERAL: She is awake and alert. VITAL SIGNS: Blood pressure of 89/66 and heart rate of 144. HEENT: Anicteric sclerae. Normocephalic. NECK: Supple. No JVD. CHEST AND LUNGS: Decreased breath sounds bilaterally. CARDIAC: Without murmur. ABDOMEN: Soft. EXTREMITIES: 2+ bilateral pitting edema in lower extremities and some edema in upper extremities. LABORATORY DATA: Sodium 136, potassium 3, chloride 97, CO2 is 23.8, BUN 7, creatinine 1.3, and albumin 3.8. Hemoglobin 8.8, WBC 10,400, and platelet count 93,000. ASSESSMENT: 1. End-stage renal disease. 2. Heart failure with reduced ejection fraction of 15%-20% with severe global hypokinesis. 3. Lactic acidosis secondary to poor organ perfusion due to decompensated congestive heart failure. 4. Hypotension with tachycardia secondary to low ejection fraction. 5. History of cerebrovascular accident. 6. Anemia of chronic kidney disease, rule out gastrointestinal bleed. 7. Thrombocytopenia, possibly secondary to heparin-induced thrombocytopenia. 8. Atrial fibrillation. PLAN: We will continue PIRRT for now until she becomes more stable and more euvolemic. I will also start her on Retacrit 10,000 units subcutaneously 2 times a week to address her anemia. She will be assessed on a daily basis if she would need PIRRT. DT: 22:30:26 TT: 23:36:00 Ref: [id number] - TID: [id number]
[2025-05-19] VITALS (180 sets, daily range): BP systolic 42–141; BP diastolic 27–96; PULSE 92–135; RESP 7–27; TEMP 36–36.8; O2SAT 75–100; BMI 29.9
[2025-05-19] MEDS: POTASSIUM CHL 10 mEq IVPB 10 MEQ/100 ML BAG 100 MEQ IV ×2 (00:10→01:09)
[2025-05-19 01:25] LABS: Partial Thromboplastin Time 55.9 Seconds (22.0-36.0)
[2025-05-19] MEDS: HEPARIN SOD INJ 1000 UNIT/ML VIAL 10 ML 3300 UNIT INDWELLCAT (01:46)
[2025-05-19] MEDS: Norepinephrine/D5W 8mg/250ml 8 MG/250 ML BAG 43.797 MG IV (03:19)
[2025-05-19 05:10] LABS: Basophils # (Auto) 0.0 Thou/mm3 (0.0-0.2); Basophils % (Auto) 0 % (0-2.5); Eosinophils # (Auto) 0.1 Thou/mm3 (0.0-0.5); Eosinophils % (Auto) 1 % (0-10); Hematocrit 21.6 % (36.0-46.0); Immature Granulocytes Auto 0.04 Thou/mm3 (0.00-0.00); Lymphocytes # (Auto) 1.3 Thou/mm3 (1.0-4.8); Lymphocytes % (Auto) 10 % (10-50); Mean Corpuscular HGB Conc 31.9 g/dl (31.0-37.0); Mean Corpuscular Hemoglobin 32.4 pg (25.0-35.0); Mean Corpuscular Volume 101 fL (80-100); Monocytes # (Auto) 0.8 Thou/mm3 (0.0-0.8); Monocytes % (Auto) 7 % (0-12); Neutrophils # (Auto) 10.0 Thou/mm3 (1.8-7.7); Neutrophils % (Auto) 82 % (37-80); Nucleated Red Blood Cell # 0.03 Thou/mm3 (0.00-0.00); Nucleated Red Blood Cell % 0 /100 WBC (0); Platelet Count 111 Thou/mm3 (140-440); RDW Standard Deviation 78.3 fL (36.4-46.3); Red Blood Count 2.13 Miln/mm3 (4.00-5.20); White Blood Count 12.2 Thou/mm3 (3.6-11.0)
[2025-05-19 05:13] LABS: Hemoglobin 6.9 g/dL (12.0-16.0)
[2025-05-19 05:26] LABS: Path Review Blood Smear Sent to Pathologist
[2025-05-19 05:38] LABS: Alanine Aminotransferase 14 U/L (10-49); Albumin, Serum 3.3 gm/dL (3.4-4.8); Albumin/Globulin Ratio 1.7 (1.2-2.2); Alkaline Phosphatase 92 U/L (46-116); Anion Gap 9 (7-16); Aspartate Amino Transferase 19 U/L (0-34); BUN/Creatinine Ratio 7 Ratio (12-20); Bilirubin,Total 0.8 mg/dL (0.3-1.2); Blood Urea Nitrogen < 5 mg/dL (9-23); Calcium 8.0 mg/dL (8.3-10.6); Calcium (Corrected) 8.6 mg/dL (8.5-10.1); Carbon Dioxide 25.7 mMol/L (20.0-31.0); Chloride 101 mMol/L (98-107); Creatinine (Component) 0.7 mg/dL (0.6-1.3); Estimated Creatinine Clearance 108.7 mL/min (>60); Globulin 1.9 gm/dL (2.3-3.5); Glucose 168 mg/dL (74-106); Magnesium 1.7 mg/dL (1.6-2.6); Osmolality,Calculated 273 (275-295); Phosphorous 1.2 mg/dL (2.4-5.1); Potassium 4.2 mMol/L (3.4-5.1); Sodium 136 mMol/L (136-145); Total Protein 5.2 gm/dL (5.7-8.2); eGFR > 60 See Note
[2025-05-19 06:09] LABS: Hematocrit 23.2 % (36.0-46.0); Hemoglobin 7.5 g/dL (12.0-16.0)
[2025-05-19] MEDS: DIVALPROEX SOD EC 125 MG TABEC 250 MG PO ×3 (06:11→21:27)
[2025-05-19] MEDS: LEVOTHYROXINE SODIUM 25 MCG TABLET 50 MCG PO (06:11)
[2025-05-19] MEDS: Magnesium Sulfate 2 GM Ivpb 2 GM/50 ML BAG IV (07:26)
[2025-05-19] MEDS: SOD PHOS ADDITIVE 22.5 MMOL in SODIUM CHLORIDE 0.9% 500 ML 500 ML 82.778 MMOL IV (07:55)
[2025-05-19 08:02] LABS: Partial Thromboplastin Time 57.2 Seconds (22.0-36.0)
[2025-05-19] MEDS: MIDODRINE 5 MG TABLET 10 MG PO ×3 (08:54→21:26)
[2025-05-19] MEDS: MEROPENEM INJ 500 MG in SODIUM CHLORIDE 0.9% (Popper) 50 ML 100 MG IV (08:58)
[2025-05-19] MEDS: VASOPRESSIN IN NS IVPB 20 UNIT/100 ML BAG 9 UNIT IV ×2 (09:16→18:18)
--- NOTE | 2025-05-19 09:31 | ESPR_ITS ---
<Statement entered by Luz Marina Arguello MD - 05/19/25 13:20> TOTAL CC TIME: 45 MIN I saw and evaluated the patient. I reviewed the resident?s note and agree with findings and plan as documented in the resident?s note. Upon my evaluation, this patient had a high probability of imminent or life- threatening deterioration due to septic shock, which required my direct attention, intervention, and personal management. This time is exclusive of time spent on procedures, which are documented separately if performed. Lactic acid remains improved, patient is on moderate to high doses of Levophed. Vasopressin was added Side effects of antihypertensives remain on the differential as we have no concrete evidence to prove septic shock at this point although that was our leading diagnosis Remains extubated and improved from that standpoint Continue CRRT as per nephrology Continue amiodarone Documentation for date of: 05/19/25 Subjective Subjective Interval history: (Below account was synthesized primarily from chart checking as patient had already become intubated before this financial writer's interview) Patient is a 64-year-old F with a PMH of cerebrovascular accident, atrial fibrillation, heart failure with reduced ejection fraction (25-30% in January 2023), chronic kidney disease (ON dialysis Friday, and Friday), and hypothyroidism who was sent from a SNF for worsening oxygen saturation. Of note, patient had apparently missed her Friday HD session. In the ED, vitals showed: BP 114/88 HR 112 RR 22 Temp 97.9 SpO2 100% on 15 L oxy mask with FiO2 100% ED Course: CBC showed WBC 15.3, hemoglobin 11.0 (MCV 113, RDW 91.3), and platelet count 201. Coagulation panel showed PT 17.2, INR 1.6, APTT 36.7. ABG of the right radial artery showed pH 7.05, pCO2 15, PaO2 229, and HCO3 4. CMP showed sodium 139, potassium 6.1, chloride 97, carbon dioxide less than 10.0, anion gap 32, BUN 27, creatinine 4.1, eGFR 12, blood glucose 42, lactic acid 22.0, LDH 337, and BNP 1945. UA showed cloudy, light orange urine with pH 5.5, 1+ protein, 1+ ketones, 3+ blood, negative nitrate, positive leukocyte esterase, RBC 82, and WBC 1329. UDS was positive for opiates (patient received fentanyl in the hospital) and negative for all else. Imagin/16 chest x-ray showed mild enlargement of the cardiac contour and prominent vascular congestion suggestive of mild heart failure but without riccardo pulmonary edema or lobar pneumonia. 05/17 EKG showed atrial fibrillation with rapid ventricular response and heart rate 111, marked left axis deviation and bundle branch block, and QTc 492. Initially, a rapid response had been called around 16:30 for worsening SpO2 of 78% and patient was switched from oxy mask to high flow nasal cannula which improved her SpO2 to 92%. At that time, Nephrology (Dr. Landry) was consulted and it was recommended that patient begin receiving inpatient HD. Patient was started on dialysis and tolerated it for 30 minutes before developing MAP of 58-61. At this point, HD was paused and over the next 40 minutes patient received IV albumin 25 mL x2 and IV Tylenol for shivering and hypothermia of 96.4 with plans to administer IV meropenem 1 gm post-HD. However, patient's BP did not improve during this reprieve and a second rapid response was called around 17:45 for worsening hypotension of 80/40 and deteriorating mentation (shifting from A&O x 2 to responding only to sternal rub). Due to the above, ICU was contacted and patient was upgraded from Telemetry to ICU for pressor support with Levophed and intubation (induction agent: IV etomidate 30 mg, muscle relaxant: IV rocuronium 100 mg) in the setting of suspected septic shock 2/2 UTI. Central femoral line has been placed successfully but arterial line was unable to be installed. Patient's person to notify, Damian Hopkins (son), was called and informed about patient's diagnosis, current acute status, and admission into the ICU. Interval History 05/18/25: No overnight events. Patient was examined at bedside; she has been extubated and is no longer being chemically sedated with IV fentanyl. With regards to labs, WBC down trended to 10.4 from 15.3, hemoglobin down trended to 8.8 from 11.0, platelet count down trended to 93 from 201, APTT up trended to 57.4 from 36.7, ABG blood pH up trended to 7.46 from 7.05, pCO2 up trended to 31 from 15, PO2 194, HCO3 up trended to 22 from 4, potassium down trended to 3.2 from 6.1, carbon dioxide up trended to 22.8 from less than 10.0, anion gap downtrended to 17 from 32, BUN down trended to 6 from 27, creatinine down trended to 1.1 from 4.1, eGFR up trended to 56 from 12, blood glucose 116, hemoglobin A1c 5.0, lactic acid down trended to 2.2 from 22.0, phosphorus 1.1, and magnesium 1.7. She is slated to receive CRRT today. Due to continued need for pressor support, patient continues to meet criteria for ICU management. 05/19/2025: Overnight Levophed was titrated to 0.19 from 0.17. Was on PIRRT overnight with a total of 1.5 ultrafiltration. Input 1944 cc, output 0, balance 1944 cc. This morning patient denied any SOB, chest pain/pressure or palpitations. She stated that she feels better and is eager to get back to her facility with her . Hb decreased to 7.5 from 8.8, WBC 12.2, NA 136, K4.2, BUN <5, CR 0.7, Phos 1.2, magnesium 1.7. From telemetry patient was in A- fib overnight with heart rates in 120s?130s. Currently amiodarone infusion and heparin infusion ongoing. Will start on vasopressin and downtitrate Levophed for heart rate improvement, also sat in new parameter for acceptable MAP >60. Will also put a hold on heparin infusion due to new finding of acute blood loss anemia. Metoprolol IV as needed for HR >130. repleted with sodium phosphate 22.5 mmol IV x 1, magnesium sulfate 4 g IV x 1. 1 unit PRBC ordered Exam Vital Signs Temp Pulse Resp BP Pulse Ox O2 Del Method O2 Flow Rate 97.2 F 110 H 18 64/48 L 100 Nasal Cannula 2 05/19/25 08:45 05/19/25 08:54 05/19/25 08:45 05/19/25 08:54 05/19/25 08:45 05/19/25 08:01 05/19/25 08:45 FiO2 40 05/18/25 08:14 Narrative Exam General: A/O x3,, no acute distress, appears older than stated age Head: Normocephalic, atraumatic. Eyes: PERRL, EOMI. Anicteric, vision grossly intact. Mucous membranes pale and dry Ears: No ear pain, no ear discharge, Hearing grossly intact. Mouth/Throat: Oral mucosa dry. No obvious lesions in oropharynx. Cardiovascular: Tachycardic, irregularly irregular rhythm, no murmur, no JVD or carotid bruits. +S1/S2. Right IJ TDC in place with dried blood. Right femoral line in place. Exit site clean. Respiratory: No longer intubated. Oxygen Mask in place. Bilateral lung breath sounds appear distant on auscultation, respirations unlabored, no crackles, no wheezing. No accessory muscle use. Gastrointestinal: Soft, nontender, non-distended, no palpable masses. No guarding or rebound tenderness. Peristalsis present. Extremities: 2+ pitting edema of bilateral lower extremities up to tibial tuberosity, left heel wound wrapped, contracture of left hand, 4/5 strength R and L UE, 1/5 R and L LE Neuro: No focal deficits observed. Conversant, moving all extremities. No overt cerebellar signs/incoordination. Psychiatric: Cooperative, appropriate affect. Skin: Multiple ecchymoses noted on bilateral upper limbs and around tunneled dialysis catheter Objective Labs 05/19/25 05:48 05/19/25 04:45 Labs: Laboratory Results - last 24 hr 05/18/25 05/18/25 05/18/25 04:35 10:10 13:01 WBC RBC Hgb Hct MCV MCH MCHC RDW Std Deviation Plt Count Neut % (Auto) Lymph % (Auto) Hayes % (Auto) Eos % (Auto) Baso % (Auto) Neut # (Auto) Lymph # (Auto) Hayes # (Auto) Eos # (Auto) Baso # (Auto) Immature Gran # (Auto) Absolute Nucleated RBC Immature Gran % Nucleated RBC % Smear Path Review APTT 57.4 H D Sodium 137 Potassium 2.9 L Chloride 98 Carbon Dioxide 24.6 Anion Gap 14 BUN < 5 L Creatinine 1.1 Estim Creat Clear Calc 69.2 eGFR 56 L BUN/Creatinine Ratio 5 L Glucose 128 H Calculated Osmolality 273 L Lactic Acid 2.2 H Calcium 8.1 L Corrected Calcium 8.5 Phosphorus 2.0 L Magnesium Total Bilirubin AST ALT Alkaline Phosphatase Total Protein Albumin 3.5 Globulin Albumin/Globulin Ratio Blood Type Antibody Screen Crosskytch Blood Bank Wristband ID 05/18/25 05/18/25 05/18/25 17:52 19:29 22:40 WBC RBC Hgb Hct MCV MCH MCHC RDW Std Deviation Plt Count Neut % (Auto) Lymph % (Auto) Hayes % (Auto) Eos % (Auto) Baso % (Auto) Neut # (Auto) Lymph # (Auto) Hayes # (Auto) Eos # (Auto) Baso # (Auto) Immature Gran # (Auto) Absolute Nucleated RBC Immature Gran % Nucleated RBC % Smear Path Review APTT 108.7 H* D Sodium 136 136 137 Potassium 3.0 L 3.0 L 3.6 D Chloride 98 97 L 101 Carbon Dioxide 23.6 23.8 25.3 Anion Gap 14 15 11 BUN 6 L 7 L < 5 L Creatinine 1.2 1.3 0.6 D Estim Creat Clear Calc 63.4 58.5 L 126.8 eGFR 51 L 46 L > 60 BUN/Creatinine Ratio 5 L 5 L 8 L Glucose 183 H D 186 H 132 H D Calculated Osmolality 274 L 274 L 273 L Lactic Acid Calcium 8.3 8.5 8.1 L Corrected Calcium 8.5 8.7 8.6 Phosphorus 1.7 L 1.7 L 1.1 L Magnesium Total Bilirubin AST ALT Alkaline Phosphatase Total Protein Albumin 3.8 3.8 3.4 Globulin Albumin/Globulin Ratio Blood Type Antibody Screen Crosskytch Blood Bank Wristband ID 05/19/25 05/19/25 05/19/25 00:50 04:45 05:48 WBC 12.2 H RBC 2.13 L Hgb 6.9 L* D 7.5 L Hct 21.6 L* 23.2 L MCV 101 H MCH 32.4 MCHC 31.9 RDW Std Deviation 78.3 H Plt Count 111 L Neut % (Auto) 82 H Lymph % (Auto) 10 Hayes % (Auto) 7 Eos % (Auto) 1 Baso % (Auto) 0 Neut # (Auto) 10.0 H Lymph # (Auto) 1.3 Hayes # (Auto) 0.8 Eos # (Auto) 0.1 Baso # (Auto) 0.0 Immature Gran # (Auto) 0.04 H Absolute Nucleated RBC 0.03 H Immature Gran % 0 Nucleated RBC % 0 Smear Path Review Sent to Pathologist APTT 55.9 H D Sodium 136 Potassium 4.2 D Chloride 101 Carbon Dioxide 25.7 Anion Gap 9 BUN < 5 L Creatinine 0.7 Estim Creat Clear Calc 108.7 eGFR > 60 BUN/Creatinine Ratio 7 L Glucose 168 H Calculated Osmolality 273 L Lactic Acid Calcium 8.0 L Corrected Calcium 8.6 Phosphorus 1.2 L Magnesium 1.7 Total Bilirubin 0.8 AST 19 ALT 14 Alkaline Phosphatase 92 D Total Protein 5.2 L Albumin 3.3 L Globulin 1.9 L Albumin/Globulin Ratio 1.7 Blood Type B Positive Antibody Screen NEGATIVE Crossmatch See Detail Blood Bank Wristband ID Yes 05/19/25 07:05 WBC RBC Hgb Hct MCV MCH MCHC RDW Std Deviation Plt Count Neut % (Auto) Lymph % (Auto) Hayes % (Auto) Eos % (Auto) Baso % (Auto) Neut # (Auto) Lymph # (Auto) Hayes # (Auto) Eos # (Auto) Baso # (Auto) Immature Gran # (Auto) Absolute Nucleated RBC Immature Gran % Nucleated RBC % Smear Path Review APTT 57.2 H Sodium Potassium Chloride Carbon Dioxide Anion Gap BUN Creatinine Estim Creat Clear Calc eGFR BUN/Creatinine Ratio Glucose Calculated Osmolality Lactic Acid Calcium Corrected Calcium Phosphorus Magnesium Total Bilirubin AST ALT Alkaline Phosphatase Total Protein Albumin Globulin Albumin/Globulin Ratio Blood Type Antibody Screen Crossmatch Blood Bank Wristband ID ABG Interpretation ABG results: 05/17/25 05/17/25 05/17/25 15:40 18:01 19:47 ABG pH 7.05 L* 7.11 L* 7.10 L* ABG pCO2 15 L* 24 L 28 L ABG pO2 229 H 241 H 441 H D ABG HCO3 4 L* 8 L* 9 L* ABG O2 Saturation 100 H 101 H 101 H ABG Base Excess -24 L -20 L -20 L 05/17/25 05/18/25 22:05 04:57 ABG pH 7.27 L D 7.46 H D ABG pCO2 33 31 L ABG pO2 208 H D 194 H ABG HCO3 15 L 22 ABG O2 Saturation 101 H 101 H ABG Base Excess -11 L -1 Quality Measures Quality Measures none Assessment & Plan Assessment Current Active Medications: Generic Name Dose Route Start Last Admin Trade Name Freq PRN Reason Stop Dose Admin Acetaminophen 650 mg 05/17/25 15:48 05/17/25 17:05 Acetaminophen 325 Mg Tablet PO 06/16/25 15:47 650 mg Q6H PRN Administration PAIN OR FEVER > 100.4 Amiodarone HCl 200 mg 05/17/25 21:00 05/17/25 21:23 Amiodarone Hcl 200 Mg Tablet PO 06/16/25 20:59 Not Given On Hold: 05/18/25 06:42 BID RIANNA Comment: IV ORDER ACTIVE Dextrose 25 ml 05/17/25 16:04 Dextrose 50%-Water Inj 50 Ml Syringe IV 06/16/25 16:03 Q15MIN PRN BG 50-70 responsive npo pt Dextrose 50 ml 05/17/25 16:04 Dextrose 50%-Water Inj 50 Ml Syringe IV 06/16/25 16:03 Q15MIN PRN BG <50 OR BG <70 & pt unresponsive Divalproex Sodium 250 mg 05/17/25 22:00 05/19/25 06:11 Divalproex Sod Ec 125 Mg Tabec PO 06/16/25 21:59 250 mg TID RIANNA Administration Glucagon 1 mg 05/17/25 16:04 Glucagon Inj 1 Mg Vial IM Q15MIN PRN BG <70, and no IV access Heparin Sodium (Porcine) 3,300 unit 05/17/25 16:12 05/19/25 01:46 Heparin Sod Inj 1000 Unit/Ml Vial 10 Ml INDWELLCAT 05/31/25 16:11 3,300 unit PRN PRN Administration DIALYSIS Albumin Human 25 gm in 100 mls @ 100 mls/min 05/17/25 13:44 05/17/25 17:03 Albuminar-25 Ivpb IV 100 mls/min PRN PRN Administration DIALYSIS Meropenem 500 mg/ Sodium 50 mls @ 100 mls/hr 05/18/25 09:00 05/19/25 08:58 Chloride IV 05/25/25 08:59 100 mls/hr QDAY RIANNA Administration Sodium Phosphate 22.5 mmol/ 507.5 mls @ 82.778 mls/hr 05/19/25 06:47 05/19/25 07:55 Sodium Chloride IV 05/19/25 12:54 82.778 mls/hr X1 ONE Administration Norepinephrine/Dextrose 8 mg in 250 mls @ 9.521 mls/hr 05/19/25 07:51 Levophed In D5w 8mg/250ml IV 06/16/25 17:25 .Q24H PRN PER PROTOCOL Protocol 0.05 MCG/KG/MIN Vasopressin/Sodium Chloride 20 unit in 100 mls @ 9 mls/hr 05/19/25 08:41 05/19/25 09:16 Vasostrict/Ns Ivpb IV 06/18/25 08:40 0.03 unit/min .Q11H7M PRN 9 mls/hr PER PROTOCOL Administration Protocol 0.03 UNIT/MIN Levothyroxine Sodium 50 mcg 05/18/25 06:00 05/19/25 06:11 Levothyroxine Sodium 25 Mcg Tablet PO 06/17/25 05:59 50 mcg ACBR RIANNA Administration Melatonin 3 mg 05/17/25 16:14 Melatonin 3 Mg Tablet PO HS PRN sleep Metoprolol Tartrate 2.5 mg 05/19/25 07:50 Metoprolol Tartrate Inj 1 Mg/Ml Amp 5 Ml IVP 06/18/25 07:59 Q8HR PRN HR >130 Midodrine 10 mg 05/19/25 08:00 05/19/25 08:54 Midodrine 5 Mg Tablet PO 06/18/25 07:59 10 mg TID RIANNA Administration Multivitamins 1 tab 05/19/25 09:23 Multivitamins Tablet PO 06/18/25 09:14 QDAY RIANNA Pantoprazole Sodium 40 mg 05/18/25 09:00 05/19/25 08:58 Pantoprazole Inj 40 Mg Vial IVP 06/17/25 08:59 40 mg QDAY RIANNA Administration Pharmacy Consult 1 each 05/18/25 08:27 Pharmacy Renal Dose Adjustment 1 Ea XX 06/17/25 08:26 PRN PRN CONSULT Sodium Chloride 3 ml 05/17/25 13:24 05/17/25 13:36 Sodium Chloride Rt Cristina 0.9% 3 Ml Nebu INH 06/16/25 13:23 3 ml PRN PRN Administration SOLN Plan Patient is a 64-year-old F with a PMH of cerebrovascular accident, atrial fibrillation, heart failure with reduced ejection fraction (25-30% in January 2023), chronic kidney disease (ON dialysis Friday, and Friday), and hypothyroidism who was sent from a SNF for worsening oxygen saturation. Patient received inpatient HD due to multiple metabolic abnormalities but developed pervasive and refractory hypotension during the session. Due to the above, ICU was contacted and patient was upgraded from Telemetry to ICU for pressor support with Levophed and intubation (induction agent: IV etomidate 30 mg, muscle relaxant: IV rocuronium 100 mg) in the setting of suspected septic shock 2/2 UTI. No overnight events. Patient was examined at bedside; she has been extubated and is no longer being chemically sedated with IV fentanyl. With regards to labs, WBC down trended to 10.4 from 15.3, hemoglobin down trended to 8.8 from 11.0, platelet count down trended to 93 from 201, APTT up trended to 57.4 from 36.7, ABG blood pH up trended to 7.46 from 7.05, pCO2 up trended to 31 from 15, PO2 194, HCO3 up trended to 22 from 4, potassium down trended to 3.2 from 6.1, carbon dioxide up trended to 22.8 from less than 10.0, anion gap downtrended to 17 from 32, BUN down trended to 6 from 27, creatinine down trended to 1.1 from 4.1, eGFR up trended to 56 from 12, blood glucose 116, hemoglobin A1c 5.0, lactic acid down trended to 2.2 from 22.0, phosphorus 1.1, and magnesium 1.7. She is slated to receive CRRT today. Due to continued need for pressor support, patient continues to meet criteria for ICU management. NEURO No acute problems CARDIO Septic shock, requiring vasopressors During dialysis, patient developed a MAP of 58-61 and acute hypotension of 80/40 that was refractory to IV albumin and required pressor support DDx: cardiogenic shock (EF 25-30%), hypotension 2/2 atrial fibrillation with RVR, intravascular depletion Dx: -ABG of the right radial artery showed pH 7.05, pCO2 15, PaO2 229, and HCO3 4. -CMP showed sodium 139, potassium 6.1, chloride 97, carbon dioxide less than 10.0, anion gap 32, BUN 27, creatinine 4.1, eGFR 12, blood glucose 42, lactic acid 22.0, LDH 337, and BMP 1945. Rx: - IV Levophed titrated to maintain MAP>65 ? Started vasopressin IV with the goal of down titrating Levophed ? Started on midodrine 10 mg p.o. 3 times daily - IV meropenem 500 mg qD to treat underlying infectious cause, likely UTI RRx: ? MAP of greater than 60 is acceptable, #Atrial fibrillation with RVR Per Cardiology note, patient has history of atrial fibrillation on Eliquis and previously took metoprolol XL 50 mg qD for rate control During previous hospitalization, patient experienced bradycardia and hypotension with metoprolol and was started on PO amiodarone 200 mg BID Currently suspect that atrial fibrillation with RVR is 2/2 severe lactic acidosis (LA 22.0) which itself could be due to many causes including any combination of the following: ESBL UTI, CLABSI, bacteremia, adverse medication effect, etc. CHADSVASC score 4, 4.8% stroke risk per year HASBLED 3 Dx: -05/17 EKG showed atrial fibrillation with rapid ventricular response and heart rate 111, marked left axis deviation and bundle branch block, and QTc 492 -Other pertinent labs: lactic acid 22.0, potassium 6.1, CO2 less than 10.0, anion gap 32, BUN 27, creatinine 4.1, blood glucose 42, LDH 337, BNP 194, ABG blood pH 7.05, HCO3 4 Rx: -Heparin infusion held due to acute blood loss -Per cardiology recommendations, continue scheduled IV amiodarone drip @ 16.667 mL/hr -Continuous cardiac monitoring -Maintain K>4 and Mg>2 RRx: -At this time, patient's atrial fibrillation seems well controlled, will continue to monitor #HFrEF (EF 15-20%, 04/2025) #Dilated cardiomyopathy Cardiology currently has low suspicion for HFrEF exacerbation Dx: -2022 echocardiogram showed dilated cardiomyopathy, severe global hypokinese with estimated EF of 25-30%, normal RV size, mildly dilated LA, and mild MR -04/2025 echocardiogram shows dilated cardiomyopathy, moderately dilated LV, severe global hypokinesis and severe systolic dysfunction with estimated EF of 15-20%. It also showed normal RV size, reduced systolic function, RA estimated RVSP 45 mmHg, moderate pulmonary hypertension, moderate MR and mild TR, trace to mild AI, severely dilated LA, severely dilated RA, and mildly dilated ascending body measuring 3.9 cm -BNP 194, Troponin I WNL Rx: -Per cardiology recommendations, plan to initiate GDMT once blood pressure can tolerate it but avoid SGLT-2 inhibitors due to patient's ESRD on HD status -Strict I's & O's and daily weights -Outpatient follow-up with cardiology for further management (may need defibrillator if HFrEF symptoms are refractory to GDMT for over 3 months and cardiac catheterization to rule out CAD as a cause of dilated cardiomyopathy) RRx: -Patient still appears to be exhibiting signs of 3rd-spacing, will continue to monitor fluid status (CRRT planned for today) PULM No acute problems GI No active problems NEPHRO ESRD on HD (//Fri), missed HD session Hypophosphatemia Dx: - ABG of the right radial artery showed pH 7.05, pCO2 15, PaO2 229, and HCO3 4. - phosphorus 1.2, K4.1, magnesium 1.7 Rx: - Repleted with sodium phosphorus 22.5 mg IV x 1 - Nephrology, Dr Landry consulted. Appreciate recommendations - Plan to resume HD once hemodynamically stable RRx: - Likely to continue PIRRT today Lactic acidosis (resolved) On presentation patient had a lactic acid level of 22 which rapidly downtrended to 2 after dialysis. Unknown salicyclate level & alcohol level at time of admission. At this moment the precise etiology remains obscure. DDx: Likely 2/2 a combination of etiologies including tissue hypoperfusion 2/2 septic shock and/or cardiogenic shock, hypoglycemia-induced anaerobic metabolism, ASA toxicity, Ethylene glycol ingestion, ESBL UTI, or bacteremia Dx: -ABG of the right radial artery showed pH 7.05, pCO2 15, PaO2 229, and HCO3 4. -Lactic acidosis has now down-trended from 22.0 to 2.2 HEME Acute blood loss anemia Chronic normocytic anemia Patient has no obvious signs of bleeding, however hemoglobin acutely dropped since starting heparin infusion yesterday. We will discontinue heparin infusion at this point. DDx: Occult GI bleed Dx: Hb 8.5 ?>7.5 Rx: ? Type and screen stat ? 2 units PRBCs ordered ? 1 unit PRBC infusion ? Posttransfusion H&H Leukocytosis DDx: UTI, reactive Dx: - WBC 15.3?>10.4?>12.3 Rx: - Monitor CBC ENDO No active problems ID Complicated UTI Sterile pyuria Of note, patient was apparently discharged on 9/10/25 for nausea/vomiting/abdominal pain 2/2 septic shock 2/2 E.coli UTI and also has PMH of ESBL UTI Although patient had a negative urine culture, results and continue antibiotics as she recently completed a course and this may have contributed to her negative result. Dx: -UA showed cloudy, light orange urine with pH 5.5, 1+ protein, 1+ ketones, 3+ blood, negative nitrate, positive leukocyte esterase, RBC 82, and WBC 1329. -Urine culture showed contamination, final ?Blood cultures showed no bacterial growth x 48 hours, preliminary Rx: -IV meropenem 500 mg qD started on [05/17? -Follow up on blood cultures MSK #No active problems SKIN #No active problems Disposition: Norepinephrine IV, vasopressin IV. PRBC infusion. PIRRT DVT prophylaxis: SCD.s GI prophylaxis: Protonix Diet: Renal Turner: Present Lines: Peripheral IV, Central IV Antibiotics: IV meropenem 500 mg qD CODE STATUS: FULL Plan of care discussed with Attending Dr. Jos Kimble MD PGY 2 Disclaimer: This note was dictated by speech recognition. Minor errors in hearing consultant may be present due to voice recognition software.
[2025-05-19] MEDS: Norepinephrine/D5W 8mg/250ml 8 MG/250 ML BAG 28.563 MG IV (09:36)
[2025-05-19 13:25] LABS: Hematocrit 24.4 % (36.0-46.0)
--- NOTE | 2025-05-19 15:46 | PC.SS ---
MRI CT TECH conducted phone contact with the patient?s brother, Ben Whaley ; to conduct initial assessment and discharge planning.? Patient is currently admitted to ICU.? Patient is a snf resident of [facility].? Patient has been residing at facility for approximately 12 years.? 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 Patient requires assistance with completion of ADL?s.? Patient?s surrogate medical decision maker is brother, Ben Whaley.? Facility PCP is Dr. Vines.? Patient is established without patient dialysis.? Dr. Landry is the patient?s bleacher sulfite pulp.? Plan is for the patient to return to SNF upon discharge.? Patient possesses coverage for ambulance transport to SNF.? No further discharge needs identified by the patient?s brother.? No further intervention required at this time, social and political studies professor will be available to address any further concerns.? Next of Kin: Ben Whaley D/C Plan: SNF
--- NOTE | 2025-05-19 15:56 | PD.RESPRO ---
Documentation for date of: 05/19/25 Subjective Subjective Interval history: Patient seen examined at bedside. Telemetry reviewed, atrial fibrillation RVR rate 100-120s. Blood pressure ranges high 80s to low 100s over 50 to 70s on norepinephrine. Saturating 100% on 2 L nasal cannula. Patient is slightly confused this morning. Reports had dialysis on Friday but believes today is Friday. Patient denies chest pain, chest pressure, palpitations, or shortness of breath. WBC increased from 10.4-12.2, hemoglobin 8.8->6.9->7.5 today. Platelet 111, potassium 4.2, creatinine 0.7, phosphorus 1.2, magnesium 1.7 Exam Vital Signs Temp Pulse Resp BP Pulse Ox O2 Del Method O2 Flow Rate 98.3 F 104 H 15 59/41 L 100 Nasal Cannula 2 05/19/25 12:02 05/19/25 14:46 05/19/25 14:46 05/19/25 14:46 05/19/25 14:46 05/19/25 12:02 05/19/25 12:02 FiO2 40 05/18/25 08:14 Narrative Exam GENERAL: alert appears older than stated age, drowsy HEENT: NC/AT, mucous membranes dry, bilateral sclera anicteric CARDIOVASCULAR: irregular rhythm, tachycardic, no murmurs able to be appreciated, R IJ TDC in place with dried blood, R femoral line in place PULMONARY: distant breath sounds bilaterally, no rales/rhonchi/wheezes ABDOMINAL: soft, non-tender, non-distended, no rebound/guarding, bowel sounds present EXTREMITIES: 2+ pitting edema of BLE, L heel wound wrapped, contracture of L hand, 0/5 strength in LUE and LLE, 4/5 strength RUE and RLE SKIN: LLE wound NEURO: alert, following commands Objective Labs 05/20/25 04:31 05/20/25 15:18 Labs: Laboratory Results - last 24 hr 05/18/25 05/18/25 05/18/25 17:52 19:29 22:40 WBC RBC Hgb Hct MCV MCH MCHC RDW Std Deviation Plt Count Neut % (Auto) Lymph % (Auto) Phillips % (Auto) Eos % (Auto) Baso % (Auto) Neut # (Auto) Lymph # (Auto) Phillips # (Auto) Eos # (Auto) Baso # (Auto) Immature Gran # (Auto) Absolute Nucleated RBC Immature Gran % Nucleated RBC % Smear Path Review APTT 108.7 H* D Sodium 136 136 137 Potassium 3.0 L 3.0 L 3.6 D Chloride 98 97 L 101 Carbon Dioxide 23.6 23.8 25.3 Anion Gap 14 15 11 BUN 6 L 7 L < 5 L Creatinine 1.2 1.3 0.6 D Estim Creat Clear Calc 63.4 58.5 L 126.8 eGFR 51 L 46 L > 60 BUN/Creatinine Ratio 5 L 5 L 8 L Glucose 183 H D 186 H 132 H D Calculated Osmolality 274 L 274 L 273 L Calcium 8.3 8.5 8.1 L Corrected Calcium 8.5 8.7 8.6 Phosphorus 1.7 L 1.7 L 1.1 L Magnesium Total Bilirubin AST ALT Alkaline Phosphatase Total Protein Albumin 3.8 3.8 3.4 Globulin Albumin/Globulin Ratio Blood Type Antibody Screen Crossmatch Blood Bank Wristband ID 05/19/25 05/19/25 05/19/25 00:50 04:45 05:48 WBC 12.2 H RBC 2.13 L Hgb 6.9 L* D 7.5 L Hct 21.6 L* 23.2 L MCV 101 H MCH 32.4 MCHC 31.9 RDW Std Deviation 78.3 H Plt Count 111 L Neut % (Auto) 82 H Lymph % (Auto) 10 Phillips % (Auto) 7 Eos % (Auto) 1 Baso % (Auto) 0 Neut # (Auto) 10.0 H Lymph # (Auto) 1.3 Phillips # (Auto) 0.8 Eos # (Auto) 0.1 Baso # (Auto) 0.0 Immature Gran # (Auto) 0.04 H Absolute Nucleated RBC 0.03 H Immature Gran % 0 Nucleated RBC % 0 Smear Path Review Sent to Pathologist APTT 55.9 H D Sodium 136 Potassium 4.2 D Chloride 101 Carbon Dioxide 25.7 Anion Gap 9 BUN < 5 L Creatinine 0.7 Estim Creat Clear Calc 108.7 eGFR > 60 BUN/Creatinine Ratio 7 L Glucose 168 H Calculated Osmolality 273 L Calcium 8.0 L Corrected Calcium 8.6 Phosphorus 1.2 L Magnesium 1.7 Total Bilirubin 0.8 AST 19 ALT 14 Alkaline Phosphatase 92 D Total Protein 5.2 L Albumin 3.3 L Globulin 1.9 L Albumin/Globulin Ratio 1.7 Blood Type B Positive Antibody Screen NEGATIVE Crossmatch See Detail Blood Bank Wristband ID Yes 05/19/25 05/19/25 07:05 13:00 WBC RBC Hgb Hct 24.4 L MCV MCH MCHC RDW Std Deviation Plt Count Neut % (Auto) Lymph % (Auto) Phillips % (Auto) Eos % (Auto) Baso % (Auto) Neut # (Auto) Lymph # (Auto) Phillips # (Auto) Eos # (Auto) Baso # (Auto) Immature Gran # (Auto) Absolute Nucleated RBC Immature Gran % Nucleated RBC % Smear Path Review APTT 57.2 H Sodium Potassium Chloride Carbon Dioxide Anion Gap BUN Creatinine Estim Creat Clear Calc eGFR BUN/Creatinine Ratio Glucose Calculated Osmolality Calcium Corrected Calcium Phosphorus Magnesium Total Bilirubin AST ALT Alkaline Phosphatase Total Protein Albumin Globulin Albumin/Globulin Ratio Blood Type Antibody Screen Crossmatch Blood Bank Wristband ID ABG Interpretation ABG results: 05/17/25 05/17/25 05/17/25 15:40 18:01 19:47 ABG pH 7.05 L* 7.11 L* 7.10 L* ABG pCO2 15 L* 24 L 28 L ABG pO2 229 H 241 H 441 H D ABG HCO3 4 L* 8 L* 9 L* ABG O2 Saturation 100 H 101 H 101 H ABG Base Excess -24 L -20 L -20 L 05/17/25 05/18/25 22:05 04:57 ABG pH 7.27 L D 7.46 H D ABG pCO2 33 31 L ABG pO2 208 H D 194 H ABG HCO3 15 L 22 ABG O2 Saturation 101 H 101 H ABG Base Excess -11 L -1 Quality Measures Quality Measures none Assessment & Plan Assessment Current Active Medications: Generic Name Dose Route Start Last Admin Trade Name Freq PRN Reason Stop Dose Admin Acetaminophen 650 mg 05/17/25 15:48 05/17/25 17:05 Acetaminophen 325 Mg Tablet PO 06/16/25 15:47 650 mg Q6H PRN Administration PAIN OR FEVER > 100.4 Amiodarone HCl 200 mg 05/17/25 21:00 05/17/25 21:23 Amiodarone Hcl 200 Mg Tablet PO 06/16/25 20:59 Not Given On Hold: 05/18/25 06:42 BID RIANNA Comment: IV ORDER ACTIVE Dextrose 25 ml 05/17/25 16:04 Dextrose 50%-Water Inj 50 Ml Syringe IV 06/16/25 16:03 Q15MIN PRN BG 50-70 responsive npo pt Dextrose 50 ml 05/17/25 16:04 Dextrose 50%-Water Inj 50 Ml Syringe IV 06/16/25 16:03 Q15MIN PRN BG <50 OR BG <70 & pt unresponsive Divalproex Sodium 250 mg 05/17/25 22:00 05/19/25 14:35 Divalproex Sod Ec 125 Mg Tabec PO 06/16/25 21:59 250 mg TID RIANNA Administration Glucagon 1 mg 05/17/25 16:04 Glucagon Inj 1 Mg Vial IM Q15MIN PRN BG <70, and no IV access Heparin Sodium (Porcine) 3,300 unit 05/17/25 16:12 05/19/25 01:46 Heparin Sod Inj 1000 Unit/Ml Vial 10 Ml INDWELLCAT 05/31/25 16:11 3,300 unit PRN PRN Administration DIALYSIS Albumin Human 25 gm in 100 mls @ 100 mls/min 05/17/25 13:44 05/17/25 17:03 Albuminar-25 Ivpb IV 100 mls/min PRN PRN Administration DIALYSIS Meropenem 500 mg/ Sodium 50 mls @ 100 mls/hr 05/18/25 09:00 05/19/25 08:58 Chloride IV 05/25/25 08:59 100 mls/hr QDAY RIANNA Administration Norepinephrine/Dextrose 8 mg in 250 mls @ 9.521 mls/hr 05/19/25 07:51 05/19/25 14:30 Levophed In D5w 8mg/250ml IV 06/16/25 17:25 0.07 mcg/kg/min .Q24H PRN 13.33 mls/hr PER PROTOCOL Titration Protocol 0.05 MCG/KG/MIN Vasopressin/Sodium Chloride 20 unit in 100 mls @ 9 mls/hr 05/19/25 08:41 05/19/25 09:16 Vasostrict/Ns Ivpb IV 06/18/25 08:40 0.03 unit/min .Q11H7M PRN 9 mls/hr PER PROTOCOL Administration Protocol 0.03 UNIT/MIN Levothyroxine Sodium 50 mcg 05/18/25 06:00 05/19/25 06:11 Levothyroxine Sodium 25 Mcg Tablet PO 06/17/25 05:59 50 mcg ACBR RIANNA Administration Melatonin 3 mg 05/17/25 16:14 Melatonin 3 Mg Tablet PO HS PRN sleep Metoprolol Tartrate 2.5 mg 05/19/25 07:50 Metoprolol Tartrate Inj 1 Mg/Ml Amp 5 Ml IVP 06/18/25 07:59 Q8HR PRN HR >130 Midodrine 10 mg 05/19/25 08:00 05/19/25 14:36 Midodrine 5 Mg Tablet PO 06/18/25 07:59 10 mg TID RIANNA Administration Multivitamins 1 tab 05/19/25 09:23 Multivitamins Tablet PO 06/18/25 09:14 QDAY RIANNA Pantoprazole Sodium 40 mg 05/18/25 09:00 05/19/25 08:58 Pantoprazole Inj 40 Mg Vial IVP 06/17/25 08:59 40 mg QDAY RIANNA Administration Pharmacy Consult 1 each 05/18/25 08:27 Pharmacy Renal Dose Adjustment 1 Ea XX 06/17/25 08:26 PRN PRN CONSULT Sodium Chloride 3 ml 05/17/25 13:24 05/17/25 13:36 Sodium Chloride Rt Cristina 0.9% 3 Ml Nebu INH 06/16/25 13:23 3 ml PRN PRN Administration SOLN Plan Hollie Whaley 64F with pmhx significant for CVA, atrial fibrillation on Xarelto, HFrEF (15-20% 04/2025), newly ESRD on HD (TThSat), hypothyroidism who presented to [facility] ED on 05/17 for SOB, admitted for lactic acidosis with hyperkalemia. Emergent HD begun, however 30 minutes into HD, patient became hypotensive and progressively confused. Patient was then admitted to ICU where she was subsequently placed on pressors and intubated. Cardiology consulted for management of atrial fibrillation with RVR. #Atrial fibrillation RVR 2/2 #Lactic acidosis #Hx of atrial fibrillation Patient has a history of A-fib on Eliquis and previously took metoprolol XL 50 mg QD for rate control and on previous hospitalization, patient experienced bradycardia and hypotension with metoprolol and was started on amiodarone 200 mg BID. Admission labs ABG 7.05/15/229/4, K 6.1, bicarb <10, AG 32, BUN 27, Cr 4.1, glucose 42, lactic acid 22, Mg 2.2, LDH 337, trop 0.023, BNP 1945. EKG shows afib RVR rate 111 with left axis deviation. 05/18/25 Patient was intubated and tele in ICU showed atrial fibrillation RVR 120-130s. Atrial fibrillation RVR likely secondary to severe lactic acidosis. Ddx for lactic acidosis includes, ESBL UTI, TDC infection, bacteremia, medication s/e. CHADSVASC score 4, 4.8% stroke risk per year HASBLED 3 Plan: - Amiodarone bolus and continue amiodarone at 1 mg/min given patient hx of atrial fibrillation as well as low EF and to decrease arrhythmias such as VT and VF risk as pt does have dilated cardiomyopathy - Estimate patient will be on amiodarone drip for the next few days until can tolerate PO - If patient remains tachycardic, recommend to switch norepinephrine to phenylephrine given atrial fibrillation with RVR - Monitor QTc closely - Continue heparin drip for anticoagulation over Eliquis as heparin is more convenient to stop if patient requires surgery or further operations - Consider restarting Eliquis once patient has been downgraded to floors - Telemetry/ICU for cardiac monitoring - Keep K>4 and Mg>2 #HFrEF (15-20% 04/2025) #Dilated cardiomyopathy 2022 Echocardiogram shows dilated cardiomyopathy, severe global hypokinesis with estimated EF 25 to 30%, normal RV size, LA mildly dilated, mild MR. 04/2025 Echocardiogram shows dilated cardiomyopathy, moderately dilated LV, severe global hypokinesis and severe systolic dysfunction estimated EF 15 to 20%. Normal RV size, reduced systolic function. RA estimated RVSP 45 mmHg, moderate pulmonary hypertension, moderate MR and mild TR, trace to mild AI, LA severely dilated, RA severely dilated, mildly dilated ascending body measuring 3.9 cm Plan: - Plan to initiate GDMT once blood pressure tolerates however avoid SGLT2 inhibitors due to current dialysis status - Strict I&O and daily weights - Current low suspicion for HFrEF exacerbation - Continue to follow up outpatient for further management - May need defibrilator due severe HFrEF if pt does not respond to maximum GDMT for more 3 months - Will need cardiac catheterization to rule out CAD as a cause of dilated cardiomyopathy (if not performed before) as outpatient and 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 Plan of care discussed with attending Dr. Swapna August, DO PGY-1 Internal Medicine Attending Provider Attestation/Addendum I have personally seen and examined the patient separately on the above date of service and discussed the plan of care with the resident. I reviewed the resident Dr. Donya August consultation progress note and agree with the resident findings and plan in the note above and have also edited the documentation to reflect my findings and plan. Bishnu Barcenas M.D. Interventional Cardiology
[2025-05-19 16:38] LABS: Hemoglobin 8.1 g/dL (12.0-16.0)
[2025-05-19 16:46] LABS: Iron 17 mcg/dL (50-170); Percent Iron Saturation 10 % (20-55); Total Iron Binding Capacity 163 mcg/dL (250-425); Unsaturated Iron Binding 146 (225-295)
--- NOTE | 2025-05-19 16:59 | ESPR_ITS ---
RE: RUBÉN VIVAR : 1960 DATE OF SERVICE: 05/19/2025 HISTORY OF PRESENT ILLNESS: Briefly, she is a 64-year-old woman with past medical history significant for CVA, atrial fibrillation, heart failure with reduced ejection fraction of 15-20%, moderate pulmonary hypertension, ESRD on dialysis in 04/2025, dialyzing at the dialysis central of [place] every Friday, , Friday, who presented to the hospital on 05/17/2025 with shortness of breath and hypoxia. The patient was transferred to ICU when she became more hypoxic and hypotensive. She started on PIRRT on 05/17/2025 and being continued on PIRRT for fluid removal. About 1.2 L of fluid was removed overnight and she is feeling much better. CURRENT MEDICATIONS: 1. Acetaminophen. 2. Amiodarone 200 mg b.i.d. 3. Depakote. 4. Hydrocodone. 5. Levothyroxine. 6. Metoprolol tartrate 2.5 mg IV q.8 hours. 7. Meropenem 500 mg IV daily. 8. Midodrine 10 mg b.i.d. 9. Multivitamins. 10. Levophed. 11. Vasopressin drip. PHYSICAL EXAMINATION: General: More awake, alert. Vital Signs: Blood pressure of 82/64, heart rate of 104, respiratory of 12. HEENT: Anicteric sclerae. Normocephalic. Neck: Supple. JVD. Chest and Lungs: Symmetric expansion. Clear breath sounds. Heart: Without murmur. Abdomen: Soft, nontender. Extremities: 2-3+ palpable edema. LABORATORY DATA: Hemoglobin 7.5, WBC 12,200, platelet count 111,000, sodium 136, potassium 4.3, chloride 101, CO2 of 25.7, creatinine 0.7, glucose 168, calcium 8.6, phosphorus 1.2, protein 5.2. ASSESSMENT: 1. End-stage renal disease. 2. Heart failure with reduced ejection fraction of 15-20% with severe global hypokinesis, now with cardiogenic shock. 3. Lactic acidosis secondary to poor organ perfusion due to cardiogenic shock. 4. Hypertension with tachycardia secondary to severely low ejection fraction. 5. History of cerebrovascular accident. 6. Anemia of chronic disease, rule out GI bleeding. 7. Thrombocytopenia, possibly HIT. 8. Atrial fibrillation, on amiodarone. PLAN: Continue PIRRT for now. I will start her on Retacrit 10,000 units 2 times a week. I will also obtain stool Guaiac x3. DT: 16:18:13 TT: 16:57:00 Ref: [id number] - TID: [id number]
[2025-05-19] MEDS: EPOETIN ALFA-EPBX INJ 10,000 UNIT/ML VIAL (NON-ESRD) 10000 UNIT SC (17:25)
[2025-05-19] MEDS: AMIODARONE HCL 200 MG TABLET PO (21:28)
[2025-05-20] VITALS (197 sets, daily range): BP systolic 53–155; BP diastolic 28–127; PULSE 80–135; RESP 8–26; TEMP 36–36.6; O2SAT 80–100; BMI 29.9
[2025-05-20] MEDS: ONDANSETRON INJ 2 MG/ML INJ 2 ML 4 MG IVP ×3 (01:38→20:30)
[2025-05-20] MEDS: Norepinephrine/D5W 8mg/250ml 8 MG/250 ML BAG 17.138 MG IV (03:32)
[2025-05-20] MEDS: VASOPRESSIN IN NS IVPB 20 UNIT/100 ML BAG 9 UNIT IV ×2 (03:32→16:04)
[2025-05-20 05:26] LABS: Basophils # (Auto) 0.0 Thou/mm3 (0.0-0.2); Basophils % (Auto) 0 % (0-2.5); Eosinophils # (Auto) 0.1 Thou/mm3 (0.0-0.5); Eosinophils % (Auto) 1 % (0-10); Hematocrit 24.6 % (36.0-46.0); Immature Granulocytes Auto 0.05 Thou/mm3 (0.00-0.00); Lymphocytes # (Auto) 1.5 Thou/mm3 (1.0-4.8); Lymphocytes % (Auto) 12 % (10-50); Mean Corpuscular HGB Conc 33.3 g/dl (31.0-37.0); Mean Corpuscular Hemoglobin 32.3 pg (25.0-35.0); Mean Corpuscular Volume 97 fL (80-100); Monocytes # (Auto) 0.8 Thou/mm3 (0.0-0.8); Monocytes % (Auto) 7 % (0-12); Neutrophils # (Auto) 9.8 Thou/mm3 (1.8-7.7); Neutrophils % (Auto) 80 % (37-80); Nucleated Red Blood Cell # 0.03 Thou/mm3 (0.00-0.00); Nucleated Red Blood Cell % 0 /100 WBC (0); Platelet Count 82 Thou/mm3 (140-440); RDW Standard Deviation 76.0 fL (36.4-46.3); Red Blood Count 2.54 Miln/mm3 (4.00-5.20); White Blood Count 12.2 Thou/mm3 (3.6-11.0)
[2025-05-20 05:29] LABS: Hemoglobin 8.2 g/dL (12.0-16.0)
[2025-05-20] MEDS: DIVALPROEX SOD EC 125 MG TABEC 250 MG PO ×3 (05:38→21:30)
[2025-05-20] MEDS: MIDODRINE 5 MG TABLET 10 MG PO ×3 (05:39→22:00)
[2025-05-20 05:44] LABS: INR 1.3 (0.9-1.3); Prothrombin Time 13.5 Seconds (9.0-12.2)
[2025-05-20] MEDS: LEVOTHYROXINE SODIUM 25 MCG TABLET 50 MCG PO (05:55)
[2025-05-20 06:09] LABS: Alanine Aminotransferase 14 U/L (10-49); Albumin, Serum 3.4 gm/dL (3.4-4.8); Albumin/Globulin Ratio 1.7 (1.2-2.2); Alkaline Phosphatase 107 U/L (46-116); Anion Gap 11 (7-16); Aspartate Amino Transferase 16 U/L (0-34); BUN/Creatinine Ratio 7 Ratio (12-20); Bilirubin,Total 1.0 mg/dL (0.3-1.2); Blood Urea Nitrogen 11 mg/dL (9-23); Calcium 7.8 mg/dL (8.3-10.6); Calcium (Corrected) 8.3 mg/dL (8.5-10.1); Carbon Dioxide 23.2 mMol/L (20.0-31.0); Chloride 103 mMol/L (98-107); Creatinine (Component) 1.6 mg/dL (0.6-1.3); Estimated Creatinine Clearance 47.8 mL/min (>60); Globulin 2.0 gm/dL (2.3-3.5); Glucose 184 mg/dL (74-106); Magnesium 2.3 mg/dL (1.6-2.6); Osmolality,Calculated 278 (275-295); Phosphorous 2.7 mg/dL (2.4-5.1); Potassium 3.9 mMol/L (3.4-5.1); Sodium 137 mMol/L (136-145); Total Protein 5.4 gm/dL (5.7-8.2); eGFR 36 See Note
[2025-05-20] MEDS: AMIODARONE HCL 200 MG TABLET PO ×2 (08:53→20:47)
[2025-05-20] MEDS: MULTIVITAMINS TABLET 1 TAB PO (08:54)
--- NOTE | 2025-05-20 10:51 | ESPR_ITS ---
<Statement entered by Luz Marina Arguello MD - 05/22/25 09:52> TOTAL CC TIME: 45 MIN I saw and evaluated the patient. I reviewed the resident?s note and agree with findings and plan as documented in the resident?s note. Upon my evaluation, this patient had a high probability of imminent or life- threatening deterioration due to metformin toxicity which required my direct attention, intervention, and personal management. This time is exclusive of time spent on procedures, which are documented separately if performed. severe metabolic acidosis was due to metformin she was unfortunately placed on metformin after her previous discharge when at [facility] - weaning pressors- overall improved <Statement entered by Jonatan Kimble MD - 05/20/25 17:15> I saw and examined patient personally and supervised PGY 1 resident, Dr. Beasley with formulating a management plan. I agree with the documentation with the exceptions as listed below. Patient is a 64-year-old female from [facility] with a past medical history significant for CVA with left-sided deficits, atrial fibrillation on Eliquis, HFrEF [15-20%], ESRD on HD [/fri], hypothyroidism and left staghorn calculi who presented with a chief complaint of shortness of breath. Upon investigation she was found to have a severe lactic acidosis of 23, pH 7.07, bicarb <10. Subsequently she was intubated due to declining GCS and inability to protect her airway and Levophed was started for hypotension which developed during attempted hemodialysis session. She was upgraded to ICU at that point. Problem list: 1. Septic shock secondary to left staghorn calculi?resolving 2. Lactic acidosis secondary to metformin toxicity?resolved 3. Atrial fibrillation with RVR on rhythm control with amiodarone 4. Chronic diastolic and systolic congestive heart failure with reduced ejection fraction [15-20%] 5. ESRD on HD [Friday//Friday] Upon further investigation, it was discovered that patient was taking metformin while at her SNF as per her med rec. Post her prior hospitalization she was not discharged on metformin, however from her medication list provided to us from her facility she was taking it while there. This is the likely cause of her severe lactic acidosis upon presentation. We called her facility today and told them to completely discontinue metformin from her medication list, we will also make clear documentation on our discharge summary. Overnight her blood pressure was better controlled and Levophed was able to be weaned to 0.03. Midodrine was also started today 3 times daily for blood pressure support. Patient continues to be on CRRT until 5 PM today as per nephrology, Dr Landry recommendations. For her A-fib with RVR, currently on amiodarone 200 mg p.o. twice daily as per cardiology recommendations. Will continue to hold heparin as there is a concern for occult bleeding as he hemoglobin down trended significantly today after it was started. If no signs of bleeding and hemoglobin remained stable, we will resume tomorrow. Plan of care discussed with Attending Dr. Jos Kimble MD PGY 2 Disclaimer: This note was dictated by speech recognition. Minor errors in labor arbitrator hearing office may be present due to voice recognition software. Documentation for date of: 05/20/25 Subjective Subjective Interval history: (Below account was synthesized primarily from chart checking as patient had already become intubated before this bid writer's interview) Patient is a 64-year-old F with a PMH of cerebrovascular accident, atrial fibrillation, heart failure with reduced ejection fraction (25-30% in January 2023), chronic kidney disease (ON dialysis Friday, and Friday), and hypothyroidism who was sent from a SNF for worsening oxygen saturation. Of note, patient had apparently missed her Friday HD session. In the ED, vitals showed: BP 114/88 HR 112 RR 22 Temp 97.9 SpO2 100% on 15 L oxy mask with FiO2 100% ED Course: CBC showed WBC 15.3, hemoglobin 11.0 (MCV 113, RDW 91.3), and platelet count 201. Coagulation panel showed PT 17.2, INR 1.6, APTT 36.7. ABG of the right radial artery showed pH 7.05, pCO2 15, PaO2 229, and HCO3 4. CMP showed sodium 139, potassium 6.1, chloride 97, carbon dioxide less than 10.0, anion gap 32, BUN 27, creatinine 4.1, eGFR 12, blood glucose 42, lactic acid 22.0, LDH 337, and BNP 1945. UA showed cloudy, light orange urine with pH 5.5, 1+ protein, 1+ ketones, 3+ blood, negative nitrate, positive leukocyte esterase, RBC 82, and WBC 1329. UDS was positive for opiates (patient received fentanyl in the hospital) and negative for all else. Imagin/16 chest x-ray showed mild enlargement of the cardiac contour and prominent vascular congestion suggestive of mild heart failure but without riccardo pulmonary edema or lobar pneumonia. 05/17 EKG showed atrial fibrillation with rapid ventricular response and heart rate 111, marked left axis deviation and bundle branch block, and QTc 492. Initially, a rapid response had been called around 16:30 for worsening SpO2 of 78% and patient was switched from oxy mask to high flow nasal cannula which improved her SpO2 to 92%. At that time, Nephrology (Dr. Landry) was consulted and it was recommended that patient begin receiving inpatient HD. Patient was started on dialysis and tolerated it for 30 minutes before developing MAP of 58-61. At this point, HD was paused and over the next 40 minutes patient received IV albumin 25 mL x2 and IV Tylenol for shivering and hypothermia of 96.4 with plans to administer IV meropenem 1 gm post-HD. However, patient's BP did not improve during this reprieve and a second rapid response was called around 17:45 for worsening hypotension of 80/40 and deteriorating mentation (shifting from A&O x 2 to responding only to sternal rub). Due to the above, ICU was contacted and patient was upgraded from Telemetry to ICU for pressor support with Levophed and intubation (induction agent: IV etomidate 30 mg, muscle relaxant: IV rocuronium 100 mg) in the setting of suspected septic shock 2/2 UTI. Central femoral line has been placed successfully but arterial line was unable to be installed. Patient's person to notify, Damian Hopkins (son), was called and informed about patient's diagnosis, current acute status, and admission into the ICU. Interval History 05/18/25: No overnight events. Patient was examined at bedside; she has been extubated and is no longer being chemically sedated with IV fentanyl. With regards to labs, WBC down trended to 10.4 from 15.3, hemoglobin down trended to 8.8 from 11.0, platelet count down trended to 93 from 201, APTT up trended to 57.4 from 36.7, ABG blood pH up trended to 7.46 from 7.05, pCO2 up trended to 31 from 15, PO2 194, HCO3 up trended to 22 from 4, potassium down trended to 3.2 from 6.1, carbon dioxide up trended to 22.8 from less than 10.0, anion gap downtrended to 17 from 32, BUN down trended to 6 from 27, creatinine down trended to 1.1 from 4.1, eGFR up trended to 56 from 12, blood glucose 116, hemoglobin A1c 5.0, lactic acid down trended to 2.2 from 22.0, phosphorus 1.1, and magnesium 1.7. She is slated to receive CRRT today. Due to continued need for pressor support, patient continues to meet criteria for ICU management. 05/19/25: Overnight Levophed was titrated to 0.19 from 0.17. Was on PIRRT overnight with a total of 1.5 ultrafiltration. Input 1944 cc, output 0, balance 1944 cc. This morning patient denied any SOB, chest pain/pressure or palpitations. She stated that she feels better and is eager to get back to her facility with her . Hb decreased to 7.5 from 8.8, WBC 12.2, NA 136, K4.2, BUN <5, CR 0.7, Phos 1.2, magnesium 1.7. From telemetry patient was in A- fib overnight with heart rates in 120s?130s. Currently amiodarone infusion and heparin infusion ongoing. Will start on vasopressin and downtitrate Levophed for heart rate improvement, also sat in new parameter for acceptable MAP >60. Will also put a hold on heparin infusion due to new finding of acute blood loss anemia. Metoprolol IV as needed for HR >130. repleted with sodium phosphate 22.5 mmol IV x 1, magnesium sulfate 4 g IV x 1. 1 unit PRBC ordered 05/20/25: No overnight events. Patient was examined at bedside; she was observed to be sitting upright in her bed, eating breakfast, and receiving PIRRT. She denies having new symptoms or complaints and expressed interest in knowing when she would be able to be discharged back to [facility] so she can be with her . Patient continues to have atrial fibrillation with HR of 100s and blood pressures continue to be soft, ranging between MAP of 60-70 while receiving PO midodrine 10 mg TID, 0.01 Levophed, and 0.03 Vasopressin. Notable labs today include: WBC 12.2 (same as yesterday), hemoglobin bump to 8.2 from 7.5, platelet count drop to 82 from 111, PT 13.5, creatinine bump to 1.6 from 0.7, eGFR drop to 36 from greater than 60, blood glucose 184, and corrected calcium 8.3 (repleted with PO calcium carbonate x 1). There has finally been a development in the mystery surrounding the likely inciting event that led to patient's current ICU admission. Originally, patient's severely elevated lactic acid level of 22.0 upon admission had been tentatively attributed to hypoperfusion 2/2 septic shock from UTI but this explanation had not been very convincing as lactic acid elevations of this degree solely from septic shock without concomitant multi-organ failure would be highly unusual/atypical (usual ranges would be between 2 - 10). Other differentials had included adverse medication effects from antihypertensives or ASA toxicity but these etiologies also lacked sufficient evidence corroborating them. Upon review of patient's paper charts from [facility], it was discovered that patient had been receiving PO metformin 1000 mg BID between 05/11 - 05/16 despite her last recorded creatinine and eGFR on 05/11 being 3.1 and 16, respectively. It is very likely that patient's intake of metformin (which is absolutely contraindicated for creatinine above 1.4 or eGFR < 30), in the setting of severe renal impairment, led to severe lactic acidosis via its mechanism of increased lactate production from shunting towards anaerobic metabolism (along with poor renal clearance of metformin). Although the patient may have also been experiencing septic shock 2/2 UTI, which may have also contributed to the patient's severe lactic acidosis, the primary contributor to her presentation was most likely metformin-associated lactic acidosis (ЮЛИЯ). Knowing this, [facility] was contacted and it was urged to patient's nurse that her metformin be discontinued to prevent such an event from occurring again. Her nurse has voiced her understanding and agreement, and has also requested that her documentation from [facility] have this stipulation chronicled in her Discharge Summary for extra prevention via redundancy. In terms of management updates, patient's IV amiodarone drip has been switched to PO amiodarone, IV meropenem has been discontinued, and she will continue receiving CRRT/PIRRT/HD as guided by Nephrology. In terms of blood pressure management, patient will continue receiving vasopressin, Levophed, and midodrine to maintain a goal MAP of 60 or greater and she can be downgraded to floors when she no longer requires pressor support and is clinically stable. Exam Vital Signs Temp Pulse Resp BP Pulse Ox O2 Del Method O2 Flow Rate 97.0 F 88 12 92/56 L 100 Nasal Cannula 1 05/20/25 08:02 05/20/25 10:45 05/20/25 10:01 05/20/25 10:45 05/20/25 10:01 05/20/25 08:02 05/20/25 08:02 FiO2 40 05/18/25 08:14 Narrative Exam General: A/O x3, no acute distress, appears older than stated age Head: Normocephalic, atraumatic. Eyes: PERRL, EOMI. Anicteric, vision grossly intact. Mucous membranes pale and dry Ears: No ear pain, no ear discharge, Hearing grossly intact. Mouth/Throat: Oral mucosa dry. No obvious lesions in oropharynx. Cardiovascular: Tachycardic, irregularly irregular rhythm, no murmur, no JVD or carotid bruits. +S1/S2. Right IJ TDC in place with dried blood. Right femoral line in place. Exit site clean. Respiratory: No longer intubated. On 1 L nasal cannula and saturating well. Bilateral lung breath sounds appear distant on auscultation, respirations unlabored, no crackles, no wheezing. No accessory muscle use. Gastrointestinal: Soft, nontender, non-distended, no palpable masses. No guarding or rebound tenderness. Peristalsis present. Extremities: 2+ pitting edema of bilateral lower extremities up to tibial tuberosity, left heel wound wrapped, contracture of left hand, 4/5 strength R and L UE, 1/5 R and L LE Neuro: No focal deficits observed. Conversant, moving all extremities. No overt cerebellar signs/incoordination. Psychiatric: Cooperative, appropriate affect. Skin: Multiple ecchymoses noted on bilateral upper limbs and around tunneled dialysis catheter Objective Labs 05/20/25 04:31 05/20/25 04:31 Labs: Laboratory Results - last 24 hr 09/05/19/25 05/20/25 05:48 13:00 04:31 WBC 12.2 H RBC 2.54 L Hgb 8.1 L 8.2 L Hct 24.4 L 24.6 L MCV 97 MCH 32.3 MCHC 33.3 RDW Std Deviation 76.0 H Plt Count 82 L D Neut % (Auto) 80 Lymph % (Auto) 12 [place] % (Auto) 7 Eos % (Auto) 1 Baso % (Auto) 0 Neut # (Auto) 9.8 H Lymph # (Auto) 1.5 [place] # (Auto) 0.8 Eos # (Auto) 0.1 Baso # (Auto) 0.0 Immature Gran # (Auto) 0.05 H Absolute Nucleated RBC 0.03 H Immature Gran % 0 Nucleated RBC % 0 PT 13.5 H D INR 1.3 Sodium 137 Potassium 3.9 Chloride 103 Carbon Dioxide 23.2 Anion Gap 11 BUN 11 Creatinine 1.6 H D Estim Creat Clear Calc 47.8 L eGFR 36 L BUN/Creatinine Ratio 7 L Glucose 184 H Calculated Osmolality 278 Calcium 7.8 L Corrected Calcium 8.3 L Phosphorus 2.7 Magnesium 2.3 Iron 17 L TIBC 163 L Iron Saturation 10 L Unsat Iron Binding 146 L Total Bilirubin 1.0 AST 16 ALT 14 Alkaline Phosphatase 107 Total Protein 5.4 L Albumin 3.4 Globulin 2.0 L Albumin/Globulin Ratio 1.7 Crossmatch See Detail ABG Interpretation ABG results: 05/17/25 05/17/25 05/17/25 15:40 18:01 19:47 ABG pH 7.05 L* 7.11 L* 7.10 L* ABG pCO2 15 L* 24 L 28 L ABG pO2 229 H 241 H 441 H D ABG HCO3 4 L* 8 L* 9 L* ABG O2 Saturation 100 H 101 H 101 H ABG Base Excess -24 L -20 L -20 L 05/17/25 05/18/25 22:05 04:57 ABG pH 7.27 L D 7.46 H D ABG pCO2 33 31 L ABG pO2 208 H D 194 H ABG HCO3 15 L 22 ABG O2 Saturation 101 H 101 H ABG Base Excess -11 L -1 Quality Measures Quality Measures none Assessment & Plan Assessment Current Active Medications: Generic Name Dose Route Start Last Admin Trade Name Freq PRN Reason Stop Dose Admin Acetaminophen 650 mg 09/16/25 15:48 05/17/25 17:05 Acetaminophen 325 Mg Tablet PO 06/16/25 15:47 650 mg Q6H PRN Administration PAIN OR FEVER > 100.4 Amiodarone HCl 200 mg 05/19/25 21:00 05/20/25 08:53 Amiodarone Hcl 200 Mg Tablet PO 06/18/25 20:59 200 mg BID RIANNA Administration Dextrose 25 ml 05/17/25 16:04 Dextrose 50%-Water Inj 50 Ml Syringe IV 06/16/25 16:03 Q15MIN PRN BG 50-70 responsive npo pt Dextrose 50 ml 05/17/25 16:04 Dextrose 50%-Water Inj 50 Ml Syringe IV 06/16/25 16:03 Q15MIN PRN BG <50 OR BG <70 & pt unresponsive Divalproex Sodium 250 mg 05/17/25 22:00 05/20/25 05:38 Divalproex Sod Ec 125 Mg Tabec PO 06/16/25 21:59 250 mg TID RIANNA Administration Epoetin Jemal 10,000 unit 05/19/25 16:45 05/19/25 17:25 Epoetin Jemal-Epbx Inj 10,000 Unit/Ml Vial (Non-Esrd) SC 06/18/25 16:44 10,000 unit MoTh RIANNA Administration Glucagon 1 mg 05/17/25 16:04 Glucagon Inj 1 Mg Vial IM Q15MIN PRN BG <70, and no IV access Heparin Sodium (Porcine) 3,300 unit 05/17/25 16:12 05/19/25 01:46 Heparin Sod Inj 1000 Unit/Ml Vial 10 Ml INDWELLCAT 05/31/25 16:11 3,300 unit PRN PRN Administration DIALYSIS Albumin Human 25 gm in 100 mls @ 100 mls/min 05/17/25 13:44 05/20/25 07:39 Albuminar-25 Ivpb IV Infused PRN PRN Infusion DIALYSIS Norepinephrine/Dextrose 8 mg in 250 mls @ 9.521 mls/hr 05/19/25 07:51 05/20/25 10:00 Levophed In D5w 8mg/250ml IV 06/16/25 17:25 0.01 mcg/kg/min .Q24H PRN 1.904 mls/hr PER PROTOCOL Titration Protocol 0.05 MCG/KG/MIN Vasopressin/Sodium Chloride 20 unit in 100 mls @ 9 mls/hr 05/19/25 08:41 05/20/25 03:32 Vasostrict/Ns Ivpb IV 06/18/25 08:40 0.03 unit/min .Q11H7M PRN 9 mls/hr PER PROTOCOL Administration Protocol 0.03 UNIT/MIN Levothyroxine Sodium 50 mcg 05/18/25 06:00 05/20/25 07:30 Levothyroxine Sodium 25 Mcg Tablet PO 06/17/25 05:59 Not Given ACBR RIANNA Melatonin 3 mg 05/17/25 16:14 Melatonin 3 Mg Tablet PO HS PRN sleep Metoprolol Tartrate 2.5 mg 05/19/25 07:50 Metoprolol Tartrate Inj 1 Mg/Ml Amp 5 Ml IVP 06/18/25 07:59 Q8HR PRN HR >130 Midodrine 10 mg 05/19/25 08:00 05/20/25 05:39 Midodrine 5 Mg Tablet PO 06/18/25 07:59 10 mg TID RIANNA Administration Multivitamins 1 tab 05/19/25 09:23 05/20/25 08:54 Multivitamins Tablet PO 06/18/25 09:14 1 tab QDAY RIANNA Administration Ondansetron HCl 4 mg 05/20/25 01:23 05/20/25 01:38 Ondansetron Inj 2 Mg/Ml Inj 2 Ml IVP 06/19/25 01:22 4 mg X1 PRN Administration nausea Protocol Pantoprazole Sodium 40 mg 05/18/25 09:00 05/20/25 08:54 Pantoprazole Inj 40 Mg Vial IVP 06/17/25 08:59 40 mg QDAY RIANNA Administration Pharmacy Consult 1 each 05/18/25 08:27 Pharmacy Renal Dose Adjustment 1 Ea XX 06/17/25 08:26 PRN PRN CONSULT Sodium Chloride 3 ml 05/17/25 13:24 05/17/25 13:36 Sodium Chloride Rt Cristina 0.9% 3 Ml Nebu INH 06/16/25 13:23 3 ml PRN PRN Administration SOLN Plan Patient is a 64-year-old F with a PMH of cerebrovascular accident, atrial fibrillation, heart failure with reduced ejection fraction (25-30% in January 2023), chronic kidney disease (ON dialysis Elizabeth, and Friday), and hypothyroidism who was sent from a SNF for worsening oxygen saturation. Patient received inpatient HD due to multiple metabolic abnormalities but developed pervasive and refractory hypotension during the session. No overnight events. Patient was examined at bedside; she was observed to be sitting upright in her bed, eating breakfast, and receiving PIRRT. She denies having new symptoms or complaints and expressed interest in knowing when she would be able to be discharged back to [facility] so she can be with her . Patient continues to have atrial fibrillation with HR of 100s and blood pressures continue to be soft, ranging between MAP of 60-70 while receiving PO midodrine 10 mg TID, 0.01 Levophed, and 0.03 Vasopressin. Notable labs today include: WBC 12.2 (same as yesterday), hemoglobin bump to 8.2 from 7.5, platelet count drop to 82 from 111, PT 13.5, creatinine bump to 1.6 from 0.7, eGFR drop to 36 from greater than 60, blood glucose 184, and corrected calcium 8.3 (repleted with PO calcium carbonate x 1). There has finally been a development in the mystery surrounding the likely inciting event that led to patient's current ICU admission. Originally, patient's severely elevated lactic acid level of 22.0 upon admission had been tentatively attributed to hypoperfusion 2/2 septic shock from UTI but this explanation had not been very convincing as lactic acid elevations of this degree solely from septic shock without concomitant multi-organ failure would be highly unusual/atypical (usual ranges would be between 2 - 10). Other differentials had included adverse medication effects from antihypertensives or ASA toxicity but these etiologies also lacked sufficient evidence corroborating them. Upon review of patient's paper charts from [facility], it was discovered that patient had been receiving PO metformin 1000 mg BID between 05/11 - 05/16 despite her last recorded creatinine and eGFR on 05/11 being 3.1 and 16, respectively. It is very likely that patient's intake of metformin (which is absolutely contraindicated for creatinine above 1.4 or eGFR < 30), in the setting of severe renal impairment, led to severe lactic acidosis via metformin's mechanism of increased lactate production from shunting towards anaerobic metabolism (along with poor renal clearance of metformin). Although the patient may have also been experiencing septic shock 2/2 UTI, which may have also contributed to the patient's severe lactic acidosis, the primary contributor to her presentation was most likely metformin-associated lactic acidosis (ЮЛИЯ). Knowing this, [facility] was contacted and it was urged to patient's nurse that her metformin be discontinued to prevent such an event from occurring again. Her nurse has voiced her understanding and agreement, and has also requested that her documentation from [facility] have this stipulation chronicled in her Discharge Summary for extra prevention via redundancy. In terms of management updates, patient's IV amiodarone drip has been switched to PO amiodarone, IV meropenem has been discontinued, and she will continue receiving CRRT/PIRRT/HD as guided by Nephrology. In terms of blood pressure management, patient will continue receiving vasopressin, Levophed, and midodrine to maintain a goal MAP of 60 or greater and she can be downgraded to floors when she no longer requires pressor support and is clinically stable. NEURO No acute problems CARDIO Septic shock, requiring vasopressors During dialysis, patient developed a MAP of 58-61 and acute hypotension of 80/40 that was refractory to IV albumin and required pressor support (in the setting of severe lactic acidosis as well) DDx: cardiogenic shock (EF 25-30%), hypotension 2/2 atrial fibrillation with RVR, intravascular depletion Dx: -ABG of the right radial artery showed pH 7.05, pCO2 15, PaO2 229, and HCO3 4. -CMP showed sodium 139, potassium 6.1, chloride 97, carbon dioxide less than 10.0, anion gap 32, BUN 27, creatinine 4.1, eGFR 12, blood glucose 42, lactic acid 22.0, LDH 337, and BMP 1945. Rx: -Continue PO midodrine 10 mg TID to maintain MAP > 60 -If refractory to midodrine, continue IV vasopressin titrated to maintain MAP > 60 (with goal of weaning patient off of Levophed) -If refractory to vasopressin, continue IV Levophed titrated to maintain MAP > 60 -Discontinued IV meropenem 500 mg qD RRx: ? MAP of greater than 60 is acceptable, and patient has been able to maintain a MAP between 60 - 70 today on midodrine, vasopressin 0.3, and Levophed 0.1 #Atrial fibrillation with RVR Per Cardiology note, patient has history of atrial fibrillation on Eliquis and previously took metoprolol XL 50 mg qD for rate control During previous hospitalization, patient experienced bradycardia and hypotension with metoprolol and was started on PO amiodarone 200 mg BID Currently suspect that atrial fibrillation with RVR is 2/2 severe lactic acidosis (LA 22.0) which itself was most likely due to metformin intake in the setting of severe renal impairment CHADSVASC score 4, 4.8% stroke risk per year HASBLED 3 Dx: -05/17 EKG showed atrial fibrillation with rapid ventricular response and heart rate 111, marked left axis deviation and bundle branch block, and QTc 492 -Other pertinent labs: (upon admission) lactic acid 22.0, potassium 6.1, CO2 less than 10.0, anion gap 32, BUN 27, creatinine 4.1, blood glucose 42, LDH 337, BNP 1944, ABG blood pH 7.05, HCO3 4 Rx: -Started PO amiodarone 200 mg BID (discontinued IV amiodarone drip) -Continue holding heparin due to concerning hemoglobin drop that occurred on 05/19, may consider resuming tomorrow -Continuous cardiac monitoring -Maintain K>4 and Mg>2 RRx: -Patient continues to have atrial fibrillation today with HR in the 100s, seems relatively stable and asymptomatic #HFrEF (EF 15-20%, 04/2025) #Dilated cardiomyopathy Cardiology currently has low suspicion for HFrEF exacerbation Dx: -2022 echocardiogram showed dilated cardiomyopathy, severe global hypokinesis with estimated EF of 25-30%, normal RV size, mildly dilated LA, and mild MR -04/2025 echocardiogram shows dilated cardiomyopathy, moderately dilated LV, severe global hypokinesis and severe systolic dysfunction with estimated EF of 15-20%. It also showed normal RV size, reduced systolic function, RA estimated RVSP 45 mmHg, moderate pulmonary hypertension, moderate MR and mild TR, trace to mild AI, severely dilated LA, severely dilated RA, and mildly dilated ascending body measuring 3.9 cm -BNP 1944, Troponin I WNL Rx: -Per cardiology recommendations, plan to initiate GDMT once blood pressure can tolerate it but avoid SGLT-2 inhibitors due to patient's ESRD on HD status -Strict I's & O's and daily weights -Outpatient follow-up with cardiology for further management (may need defibrillator if HFrEF symptoms are refractory to GDMT for over 3 months and cardiac catheterization to rule out CAD as a cause of dilated cardiomyopathy) RRx: -Patient appears euvolemic today, will continue to monitor her fluid status PULM No acute problems GI No active problems NEPHRO #ESRD on HD (//Fri), missed HD session #Hypophosphatemia Dx: - ABG of the right radial artery showed pH 7.05, pCO2 15, PaO2 229, and HCO3 4. - phosphorus 1.2, K4.1, magnesium 1.7 Rx: - Nephrology, Dr Landry consulted. Appreciate recommendations - Plan to resume HD once hemodynamically stable RRx: - Likely to continue PIRRT today #Metformin-associated lactic acidosis (resolved) On presentation, patient had a lactic acid level of 22 which has now down- trended to 2.2. Patient's severely elevated lactic acid level of 22.0 upon admission had been tentatively attributed to hypoperfusion 2/2 septic shock from UTI but this explanation had not been very convincing as lactic acid elevations of this degree solely from septic shock without concomitant multi-organ failure would be highly unusual/atypical (usual ranges would be between 2 - 10). Per [facility] paper charts, patient had been receiving PO metformin 1000 mg BID between 05/11 - 05/16 despite her last recorded creatinine and eGFR on 05/11 being 3.1 and 16, respectively. It is very likely that patient's intake of metformin (which is absolutely contraindicated for creatinine above 1.4 or eGFR < 30), in the setting of severe renal impairment, led to severe lactic acidosis via its mechanism of increased lactate production from shunting towards anaerobic metabolism (along with poor renal clearance of metformin). DDx: minor contributions outside of [place] may include a combination of etiologies including tissue hypoperfusion 2/2 septic shock and/or cardiogenic shock, hypoglycemia-induced anaerobic metabolism, ESBL UTI, or bacteremia Dx: -ABG of the right radial artery showed pH 7.05, pCO2 15, PaO2 229, and HCO3 4. -Lactic acidosis has now down-trended from 22.0 to 2.2 _ ____ Rx: -Called [facility] and emphasized the importance of discontinuing patient's metformin PLEASE TAKE EXTRA CARE TO DOCUMENT THAT PATIENT'S METFORMIN BE DISCONTINUED ON DISCHARGE SUMMARY _ ____ HEME #Acute blood loss anemia #Chronic normocytic anemia Patient has no obvious signs of bleeding, however hemoglobin acutely dropped on 05/19 (right after starting heparin infusion on 05/18). DDx: Occult GI bleed Dx: -Hb 8.5 ?>7.5 ?> 8.2 (today, 05/20) -05/19 iron panel: iron 17, TIBC 163, iron sat 10, unsat iron binding 146 (likely mixed NELDA + ACD) Rx: ? Type and screen complete ? Continue holding heparin, may consider resuming tomorrow RRx: -Currently, no active signs of bleeding and hemoglobin has improved from yesterday Leukocytosis DDx: UTI, reactive Dx: - WBC 15.3 ?>10.4 ?>12.3 -> 12.2 Rx: - Monitor CBC ENDO No active problems ID Complicated UTI Sterile pyuria Of note, patient was apparently discharged on 05/11/25 for nausea/vomiting/abdominal pain 2/2 septic shock 2/2 E.coli UTI and also has PMH of ESBL UTI Although patient had a negative urine culture, results and continue antibiotics as she recently completed a course and this may have contributed to her negative result. Dx: -UA showed cloudy, light orange urine with pH 5.5, 1+ protein, 1+ ketones, 3+ blood, negative nitrate, positive leukocyte esterase, RBC 82, and WBC 1329. -Urine culture showed contamination, final ?Blood cultures showed no bacterial growth x 48 hours, preliminary -Patient denies having any urinary symptoms Rx: -Discontinued IV meropenem 500 mg qD [05/17?05/20] MSK #No active problems SKIN #No active problems Disposition: Norepinephrine IV, vasopressin IV. PIRRT DVT prophylaxis: SCDs (heparin held due to hemoglobin drop on 05/19) GI prophylaxis: Protonix Diet: Renal Turner: Present Lines: Peripheral IV, Central IV Antibiotics: None CODE STATUS: FULL Plan of care discussed with Attending Dr. Jos Beasley, DO Internal Medicine, PGY-1
[2025-05-20] MEDS: CALCIUM CARBONATE 600 MG TABLET PO (11:21)
[2025-05-20] MEDS: ACETAMINOPHEN 325 MG TABLET 650 MG PO (11:22)
--- NOTE | 2025-05-20 14:33 | PD.RESPRO ---
Documentation for date of: 05/20/25 Subjective Subjective Interval history: Patient seen and examined at bedside. Telemetry reviewed showing atrial fibrillation RVR rate 100-130s. BP 60-100/45-65 on norepi, vasopressin and middodrine 10 mg TID. Patient is feeling well today. Denies pain anywhere. Denies chest pain, chest pressure, palpitations or SOB. Reports remote history of cocaine use, no IV drug use, for one year when she was younger. Denies hx of NM, having ever seen a internal controls consultant or ever having a cardiac catheterization done. Spoke with brother Ben who states he does not believe she had a internal controls consultant but Dr. Mejía is her PCP. Reports atrial fibrillation run in the family (mother, himself, grandmothers, multiple family members), is unaware of family hx of heart failure or if anyone passed from heart problems such as NM. Brother reports patient has not been taking care of her health as she has been in the assisted, endorses she has very poor diet and no cardiac workup ever in the past. Exam Vital Signs Temp Pulse Resp BP Pulse Ox O2 Del Method O2 Flow Rate 97.9 F 106 H 14 80/53 L 97 Room Air 1 05/20/25 12:01 05/20/25 14:15 05/20/25 14:02 05/20/25 14:15 05/20/25 14:02 05/20/25 12:01 05/20/25 08:02 FiO2 40 05/18/25 08:14 Narrative Exam GENERAL: alert and oriented x3 appears older than stated age HEENT: NC/AT, mucous membranes dry, bilateral sclera anicteric CARDIOVASCULAR: irregular rhythm, tachycardic, no murmurs able to be appreciated, R IJ TDC in place with dried blood, R femoral line in place PULMONARY: distant breath sounds bilaterally, no rales/rhonchi/wheezes ABDOMINAL: soft, non-tender, non-distended, no rebound/guarding, bowel sounds present EXTREMITIES: 2+ pitting edema of BLE, L heel wound wrapped, contracture of L hand, 0/5 strength in LUE and LLE, 4/5 strength RUE and RLE SKIN: LLE wound NEURO: alert, following commands Objective Labs 05/20/25 04:31 05/20/25 15:18 Labs: Laboratory Results - last 24 hr 05/19/25 05/20/25 13:00 04:31 WBC 12.2 H RBC 2.54 L Hgb 8.1 L 8.2 L Hct 24.6 L MCV 97 MCH 32.3 MCHC 33.3 RDW Std Deviation 76.0 H Plt Count 82 L D Neut % (Auto) 80 Lymph % (Auto) 12 [place] % (Auto) 7 Eos % (Auto) 1 Baso % (Auto) 0 Neut # (Auto) 9.8 H Lymph # (Auto) 1.5 [place] # (Auto) 0.8 Eos # (Auto) 0.1 Baso # (Auto) 0.0 Immature Gran # (Auto) 0.05 H Absolute Nucleated RBC 0.03 H Immature Gran % 0 Nucleated RBC % 0 PT 13.5 H D INR 1.3 Sodium 137 Potassium 3.9 Chloride 103 Carbon Dioxide 23.2 Anion Gap 11 BUN 11 Creatinine 1.6 H D Estim Creat Clear Calc 47.8 L eGFR 36 L BUN/Creatinine Ratio 7 L Glucose 184 H Calculated Osmolality 278 Calcium 7.8 L Corrected Calcium 8.3 L Phosphorus 2.7 Magnesium 2.3 Iron 17 L TIBC 163 L Iron Saturation 10 L Unsat Iron Binding 146 L Total Bilirubin 1.0 AST 16 ALT 14 Alkaline Phosphatase 107 Total Protein 5.4 L Albumin 3.4 Globulin 2.0 L Albumin/Globulin Ratio 1.7 ABG Interpretation ABG results: 05/17/25 05/17/25 05/17/25 15:40 18:01 19:47 ABG pH 7.05 L* 7.11 L* 7.10 L* ABG pCO2 15 L* 24 L 28 L ABG pO2 229 H 241 H 441 H D ABG HCO3 4 L* 8 L* 9 L* ABG O2 Saturation 100 H 101 H 101 H ABG Base Excess -24 L -20 L -20 L 05/17/25 05/18/25 22:05 04:57 ABG pH 7.27 L D 7.46 H D ABG pCO2 33 31 L ABG pO2 208 H D 194 H ABG HCO3 15 L 22 ABG O2 Saturation 101 H 101 H ABG Base Excess -11 L -1 Quality Measures Quality Measures none Assessment & Plan Assessment Current Active Medications: Generic Name Dose Route Start Last Admin Trade Name Freq PRN Reason Stop Dose Admin Acetaminophen 650 mg 05/20/25 11:14 05/20/25 11:22 Acetaminophen 325 Mg Tablet PO 06/16/25 15:47 650 mg Q6H PRN Administration PAIN 1-10 OR FEVER > 100.4 Amiodarone HCl 200 mg 05/19/25 21:00 05/20/25 08:53 Amiodarone Hcl 200 Mg Tablet PO 06/18/25 20:59 200 mg BID RIANNA Administration Dextrose 25 ml 05/17/25 16:04 Dextrose 50%-Water Inj 50 Ml Syringe IV 06/16/25 16:03 Q15MIN PRN BG 50-70 responsive npo pt Dextrose 50 ml 05/17/25 16:04 Dextrose 50%-Water Inj 50 Ml Syringe IV 06/16/25 16:03 Q15MIN PRN BG <50 OR BG <70 & pt unresponsive Divalproex Sodium 250 mg 05/17/25 22:00 05/20/25 13:58 Divalproex Sod Ec 125 Mg Tabec PO 06/16/25 21:59 250 mg TID RIANNA Administration Epoetin Jemal 10,000 unit 05/19/25 16:45 05/19/25 17:25 Epoetin Jemal-Epbx Inj 10,000 Unit/Ml Vial (Non-Esrd) SC 06/18/25 16:44 10,000 unit MoTh RIANNA Administration Glucagon 1 mg 05/17/25 16:04 Glucagon Inj 1 Mg Vial IM Q15MIN PRN BG <70, and no IV access Heparin Sodium (Porcine) 3,300 unit 05/17/25 16:12 05/19/25 01:46 Heparin Sod Inj 1000 Unit/Ml Vial 10 Ml INDWELLCAT 05/31/25 16:11 3,300 unit PRN PRN Administration DIALYSIS Albumin Human 25 gm in 100 mls @ 100 mls/min 05/17/25 13:44 05/20/25 07:39 Albuminar-25 Ivpb IV Infused PRN PRN Infusion DIALYSIS Norepinephrine/Dextrose 8 mg in 250 mls @ 9.521 mls/hr 05/19/25 07:51 05/20/25 14:00 Levophed In D5w 8mg/250ml IV 06/16/25 17:25 0.01 mcg/kg/min .Q24H PRN 1.904 mls/hr PER PROTOCOL Titration Protocol 0.05 MCG/KG/MIN Vasopressin/Sodium Chloride 20 unit in 100 mls @ 9 mls/hr 05/19/25 08:41 05/20/25 03:32 Vasostrict/Ns Ivpb IV 06/18/25 08:40 0.03 unit/min .Q11H7M PRN 9 mls/hr PER PROTOCOL Administration Protocol 0.03 UNIT/MIN Levothyroxine Sodium 50 mcg 05/18/25 06:00 05/20/25 07:30 Levothyroxine Sodium 25 Mcg Tablet PO 06/17/25 05:59 Not Given ACBR RIANNA Melatonin 3 mg 05/17/25 16:14 Melatonin 3 Mg Tablet PO HS PRN sleep Metoprolol Tartrate 2.5 mg 05/19/25 07:50 Metoprolol Tartrate Inj 1 Mg/Ml Amp 5 Ml IVP 06/18/25 07:59 Q8HR PRN HR >130 Midodrine 10 mg 05/20/25 14:00 05/20/25 13:58 Midodrine 5 Mg Tablet PO 06/18/25 13:59 10 mg TID RIANNA Administration Multivitamins 1 tab 05/19/25 09:23 05/20/25 08:54 Multivitamins Tablet PO 06/18/25 09:14 1 tab QDAY RIANNA Administration Ondansetron HCl 4 mg 05/20/25 11:14 05/20/25 11:21 Ondansetron Inj 2 Mg/Ml Inj 2 Ml IVP 06/19/25 11:13 4 mg Q8HR PRN Administration NAUSEA OR VOMITING Protocol Pantoprazole Sodium 40 mg 05/18/25 09:00 05/20/25 08:54 Pantoprazole Inj 40 Mg Vial IVP 06/17/25 08:59 40 mg QDAY RIANNA Administration Pharmacy Consult 1 each 05/18/25 08:27 Pharmacy Renal Dose Adjustment 1 Ea XX 06/17/25 08:26 PRN PRN CONSULT Sodium Chloride 3 ml 05/17/25 13:24 05/17/25 13:36 Sodium Chloride Rt Cristina 0.9% 3 Ml Nebu INH 06/16/25 13:23 3 ml PRN PRN Administration SOLN Plan Hollie Judd 64F with pmhx significant for CVA, atrial fibrillation on Xarelto, HFrEF (15-20% 04/2025), newly ESRD on HD (TThSat), hypothyroidism who presented to [facility] ED on 05/17 for SOB, admitted for lactic acidosis with hyperkalemia. Emergent HD begun, however 30 minutes into HD, patient became hypotensive and progressively confused. Patient was then admitted to ICU where she was subsequently placed on pressors and intubated. Cardiology consulted for management of atrial fibrillation with RVR. #Atrial fibrillation RVR 2/2 #Lactic acidosis #Shock, likely medication induced #Hx of atrial fibrillation Patient has a history of A-fib on Eliquis and previously took metoprolol XL 50 mg QD for rate control and on previous hospitalization, patient experienced bradycardia and hypotension with metoprolol and was started on amiodarone 200 mg BID. Admission labs ABG 7.05/15/229/4, K 6.1, bicarb <10, AG 32, BUN 27, Cr 4.1, glucose 42, lactic acid 22, Mg 2.2, LDH 337, trop 0.023, BNP 1945. Unlikely cardiogenic shock as in spite of patient having severe HFrEF, admission troponins are negative. EKG shows afib RVR rate 111 with left axis deviation. 05/18/25 Patient was intubated and tele in ICU showed atrial fibrillation RVR 120-130s. Atrial fibrillation RVR likely secondary to severe lactic acidosis. Ddx for lactic acidosis includes, ESBL UTI, TDC infection, bacteremia, medication s/e. CHADSVASC score 4, 4.8% stroke risk per year HASBLED 3 s/p IV amiodarone (05/17-05/18) Plan: - PO amiodarone 200 mg BID as patient is now able to tolerate oral and given patient hx of atrial fibrillation as well as low EF and to decrease arrhythmias such as VT and VF risk as pt does have dilated cardiomyopathy - F/u echocardiogram - If patient remains tachycardic, recommend to switch norepinephrine to phenylephrine given atrial fibrillation with RVR - Monitor QTc closely - Continue heparin drip for anticoagulation over Eliquis as heparin is more convenient to stop if patient requires surgery or further operations - Consider restarting Eliquis once patient has been downgraded to floors - Telemetry/ICU for cardiac monitoring - Keep K>4 and Mg>2 #HFrEF (15-20% 04/2025) #Dilated cardiomyopathy Patient endorses remote occasional cocaine use for only one year. Denies previous NM, having ever seen a internal controls consultant or ever having a cardiac catheterization done. Per brother, atrial fibrillation runs in the family, unsure of heart failure or cardiac . 2022 Echocardiogram shows dilated cardiomyopathy, severe global hypokinesis with estimated EF 25 to 30%, normal RV size, LA mildly dilated, mild MR. 04/2025 Echocardiogram shows dilated cardiomyopathy, moderately dilated LV, severe global hypokinesis and severe systolic dysfunction estimated EF 15 to 20%. Normal RV size, reduced systolic function. RA estimated RVSP 45 mmHg, moderate pulmonary hypertension, moderate MR and mild TR, trace to mild AI, LA severely dilated, RA severely dilated, mildly dilated ascending body measuring 3.9 cm Plan: - Plan to initiate GDMT once blood pressure tolerates however avoid SGLT2 inhibitors due to current dialysis status - Strict I&O and daily weights - Current low suspicion for HFrEF exacerbation - Continue to follow up outpatient for further management - May need defibrilator due severe HFrEF if pt does not respond to maximum GDMT for more 3 months - Will need cardiac catheterization to rule out CAD as a cause of dilated cardiomyopathy (if not performed before) prior to discharge and recommended to follow up with her internal controls consultant as outpatient #ESRD on HD (//Fri) #Normocytic anemia #Hypotension 2/2 sepsis #Leukocytosis #Nephrolithiasis #Hypothyroidism #CVA #Mood disorder Plan: - Above managed by primary team Thank you for your consultation and allowing participation in patient's care. Plan of care discussed with attending Dr. Swapna August, PGY-1 Internal Medicine Attending Provider Attestation/Addendum I have personally seen and examined the patient separately on the above date of service and discussed the plan of care with the resident. I reviewed the resident Dr. Lockhart consultation progress note and agree with the resident findings and plan in the note above and have also edited the documentation to reflect my findings and plan. Bishnu Barcenas M.D. Interventional Cardiology
[2025-05-20] MEDS: VIT B12/Vit C/FA (Nephrovite) TABLET 1 TAB PO (15:50)
[2025-05-20] MEDS: ZINC SULFATE 220 MG CAPSULE PO (15:50)
[2025-05-20 15:53] LABS: Alanine Aminotransferase 12 U/L (10-49); Albumin, Serum 3.2 gm/dL (3.4-4.8); Albumin/Globulin Ratio 1.8 (1.2-2.2); Alkaline Phosphatase 105 U/L (46-116); Anion Gap 6 (7-16); Aspartate Amino Transferase 14 U/L (0-34); BUN/Creatinine Ratio 13 Ratio (12-20); Bilirubin,Total 1.2 mg/dL (0.3-1.2); Blood Urea Nitrogen < 5 mg/dL (9-23); Calcium 8.0 mg/dL (8.3-10.6); Calcium (Corrected) 8.6 mg/dL (8.5-10.1); Carbon Dioxide 28.3 mMol/L (20.0-31.0); Chloride 103 mMol/L (98-107); Creatinine (Component) 0.4 mg/dL (0.6-1.3); Estimated Creatinine Clearance 191.0 mL/min (>60); Globulin 1.8 gm/dL (2.3-3.5); Glucose 160 mg/dL (74-106); Osmolality,Calculated 274 (275-295); Potassium 4.3 mMol/L (3.4-5.1); Sodium 137 mMol/L (136-145); Total Protein 5.0 gm/dL (5.7-8.2); eGFR > 60 See Note
[2025-05-20] MEDS: HEPARIN SOD INJ 1000 UNIT/ML VIAL 10 ML 3300 UNIT INDWELLCAT (17:52)
[2025-05-20] MEDS: ASCORBIC ACID 250 MG TABLET PO (20:54)
[2025-05-20] MEDS: HYDROcodone/APAP 5/325 TABLET 1 TAB PO (20:54)
[2025-05-20] MEDS: MELATONIN 3 MG TABLET PO (21:30)
[2025-05-20] MEDS: MG HYD/AL HYD/SIME (Maalox Reg) SUSP 30 ML UDC PO (22:28)
[2025-05-21] VITALS (164 sets, daily range): BP systolic 47–126; BP diastolic 32–92; PULSE 77–139; RESP 8–34; TEMP 35.6–36.4; O2SAT 90–100; BMI 31.0
--- NOTE | 2025-05-21 01:38 | XR_ITS ---
Examination: Abdomen AP single view Technique: AP portable supine abdomen, single view Exam date and time: May 21, 2025, 0155 hrs. Indications: Lower abdominal pain today. Findings: Satisfactory position right common femoral vein central line Abundant stool throughout the colon Mild small bowel ileus No obstruction No free air Impression: Abundant stool throughout the colon Mild small bowel ileus
[2025-05-21] MEDS: METOCLOPRAMIDE INJ 5 MG/ML VIAL 2 ML IVP (01:51)
[2025-05-21] MEDS: VASOPRESSIN IN NS IVPB 20 UNIT/100 ML BAG 9 UNIT IV ×2 (02:45→13:52)
[2025-05-21] MEDS: Norepinephrine/D5W 8mg/250ml 8 MG/250 ML BAG 17.138 MG IV (03:59)
[2025-05-21 05:28] LABS: Basophils # (Auto) 0.0 Thou/mm3 (0.0-0.2); Basophils % (Auto) 0 % (0-2.5); Eosinophils # (Auto) 0.1 Thou/mm3 (0.0-0.5); Eosinophils % (Auto) 1 % (0-10); Hematocrit 26.5 % (36.0-46.0); Hemoglobin 8.7 g/dL (12.0-16.0); Immature Granulocytes Auto 0.06 Thou/mm3 (0.00-0.00); Lymphocytes # (Auto) 1.9 Thou/mm3 (1.0-4.8); Lymphocytes % (Auto) 18 % (10-50); Mean Corpuscular HGB Conc 32.8 g/dl (31.0-37.0); Mean Corpuscular Hemoglobin 32.1 pg (25.0-35.0); Mean Corpuscular Volume 98 fL (80-100); Monocytes # (Auto) 0.7 Thou/mm3 (0.0-0.8); Monocytes % (Auto) 7 % (0-12); Neutrophils # (Auto) 8.0 Thou/mm3 (1.8-7.7); Neutrophils % (Auto) 74 % (37-80); Nucleated Red Blood Cell # 0.05 Thou/mm3 (0.00-0.00); Nucleated Red Blood Cell % 1 /100 WBC (0); Platelet Count 93 Thou/mm3 (140-440); RDW Standard Deviation 75.2 fL (36.4-46.3); Red Blood Count 2.71 Miln/mm3 (4.00-5.20); White Blood Count 10.8 Thou/mm3 (3.6-11.0)
[2025-05-21] MEDS: DIVALPROEX SOD EC 125 MG TABEC 250 MG PO ×3 (06:00→21:01)
[2025-05-21] MEDS: MIDODRINE 5 MG TABLET 10 MG PO ×3 (06:00→21:03)
[2025-05-21] MEDS: LEVOTHYROXINE SODIUM 25 MCG TABLET 50 MCG PO (06:04)
[2025-05-21 06:07] LABS: Alanine Aminotransferase 14 U/L (10-49); Albumin, Serum 3.4 gm/dL (3.4-4.8); Albumin/Globulin Ratio 1.7 (1.2-2.2); Alkaline Phosphatase 121 U/L (46-116); Anion Gap 8 (7-16); Aspartate Amino Transferase 17 U/L (0-34); BUN/Creatinine Ratio 8 Ratio (12-20); Bilirubin,Total 1.1 mg/dL (0.3-1.2); Blood Urea Nitrogen 7 mg/dL (9-23); Calcium 8.5 mg/dL (8.3-10.6); Calcium (Corrected) 9.0 mg/dL (8.5-10.1); Carbon Dioxide 28.5 mMol/L (20.0-31.0); Chloride 101 mMol/L (98-107); Creatinine (Component) 0.9 mg/dL (0.6-1.3); Estimated Creatinine Clearance 84.9 mL/min (>60); Globulin 2.0 gm/dL (2.3-3.5); Glucose 152 mg/dL (74-106); Magnesium 1.9 mg/dL (1.6-2.6); Osmolality,Calculated 274 (275-295); Phosphorous 1.0 mg/dL (2.4-5.1); Potassium 4.2 mMol/L (3.4-5.1); Sodium 137 mMol/L (136-145); Total Protein 5.4 gm/dL (5.7-8.2); eGFR > 60 See Note
[2025-05-21] MEDS: Magnesium Sulfate 2 GM Ivpb 2 GM/50 ML BAG IV (07:38)
[2025-05-21] MEDS: AMIODARONE HCL 200 MG TABLET PO ×2 (08:07→21:02)
[2025-05-21] MEDS: ASCORBIC ACID 250 MG TABLET PO ×2 (08:08→21:02)
[2025-05-21] MEDS: VIT B12/Vit C/FA (Nephrovite) TABLET 1 TAB PO (08:08)
[2025-05-21] MEDS: ZINC SULFATE 220 MG CAPSULE PO (08:08)
[2025-05-21] MEDS: SENNA/DOCUSATE SOD 1 TAB TABLET PO (08:10)
[2025-05-21] MEDS: SOD PHOS ADDITIVE 22.5 MMOL in SODIUM CHLORIDE 0.9% 500 ML 500 ML 82.778 MMOL IV (08:35)
--- NOTE | 2025-05-21 08:37 | PD.INTPROG ---
Documentation for date of: 05/21/25 Subjective Subjective Interval history: This is a 64-year-old female admitted to the ICU with septic shock. pt was brought to the ICU on 05/17. She is an ESRD pt on HD and had missed her HD that day. She was found to have a severe AGMA with LA that was felt to be 2/2 metformin. pt underwent partial dialysis on arrival prior to RR being called. she had high vasopressor requirements and was started on 2 vasopressors. She has been seen by nephrology and cardiology. There is a h/o HFrEF with most recent EF being 15-20%. Currently she is AAOx3 and interactive. She c/o nausea and abd discomfort. She is afebrile with no UOP. Critical Care Note Critical care time (min.): 45 Exam Vital Signs Temp Pulse Resp BP Pulse Ox O2 Del Method O2 Flow Rate 97.4 F 119 H 16 122/74 99 Room Air 0.5 05/21/25 04:01 05/21/25 08:07 05/21/25 06:47 05/21/25 08:07 05/21/25 06:47 05/20/25 16:01 05/21/25 06:47 FiO2 40 05/18/25 08:14 Narrative Exam Gen- NAD, AAO, overweight, L sided paraplegia HEENT- NC/AT, mucosa hydrated, sclera anicteric, PERRL, EOMI Chest- LCTAB with some crackles heard at post base, HRIR, no increase in WOB, no use of accessory muscles Abd- s/bs+, mild discomfort on palpation, obese Ext 4+ pitting edema to the level of the thighs, contracted L side, mult areas of bruising b/l but more on LUE, L toes dusky, pedal pulses weak, no clubbing Drips levo vaso Physical Exam Completion Physical Exam Complete?: Yes Objective - Windows Admin Labs 05/22/25 03:11 05/22/25 03:11 Labs: Laboratory Results - last 24 hr 05/20/25 05/21/25 15:18 04:49 WBC 10.8 RBC 2.71 L Hgb 8.7 L Hct 26.5 L MCV 98 MCH 32.1 MCHC 32.8 RDW Std Deviation 75.2 H Plt Count 93 L Neut % (Auto) 74 Lymph % (Auto) 18 [place] % (Auto) 7 Eos % (Auto) 1 Baso % (Auto) 0 Neut # (Auto) 8.0 H Lymph # (Auto) 1.9 [place] # (Auto) 0.7 Eos # (Auto) 0.1 Baso # (Auto) 0.0 Immature Gran # (Auto) 0.06 H Absolute Nucleated RBC 0.05 H Immature Gran % 1 H Nucleated RBC % 1 H Sodium 137 137 Potassium 4.3 4.2 Chloride 103 101 Carbon Dioxide 28.3 28.5 Anion Gap 6 L 8 BUN < 5 L 7 L Creatinine 0.4 L D 0.9 D Estim Creat Clear Calc 191.0 84.9 eGFR > 60 > 60 BUN/Creatinine Ratio 13 8 L Glucose 160 H 152 H Calculated Osmolality 274 L 274 L Calcium 8.0 L 8.5 Corrected Calcium 8.6 9.0 Phosphorus 1.0 L Magnesium 1.9 Total Bilirubin 1.2 1.1 AST 14 17 ALT 12 14 Alkaline Phosphatase 105 121 H Total Protein 5.0 L 5.4 L Albumin 3.2 L 3.4 Globulin 1.8 L 2.0 L Albumin/Globulin Ratio 1.8 1.7 Assessment & Plan Additional Plan Additional Plan: In brief this is a 64yo F admitted to the ICU for shock initially felt to be 2/2 severe acidosis due to metformin toxicity and 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 [facility]. SVR noted to be 1300 with a CI of 2.2 on monitor, there had been an original suspicion of sepsis. pt appears to have a high SVR which does not fit with distributive etiology. Will check PLR for fluid responsiveness however is net pos with significant edema and unlikely to be hypovolemic in nature. will obtain bedside echo to eval - currently going down on levo needs - started on midodrine 10mg q8 earlier in hospital stay - all cx are NTD, will complete 7 day course for poss underlying sepsis -> UA did have abundant WBC and L staghorn calculi present - LA has trended back down -> 2/2 metformin toxicity Afib- currently rate uncontrolled - on amio Resp Renal ESRD on HD- followed by nephrology and for CRRT today GI Abd pain- pt has not had BM since arrival - given lactulose today - colace, senna prn Nausea- prn zofran, hold PO intake for now Endo Hypothyroid- cont home levothyroxine Heme DVT proph- heparin Anemia- had one drop earlier in her hospital stay - no active bleeding noted - stable - labs show iron def and chronic dz ID Decubitus ulcer on L LE- POA and will fu with wound care case d/w ICU team labs, imaging, records reviewed ~45ccmin required for eval, exam, review, intervention, discussion and formulation of POC for this critically ill pt with shock on vasopressors Provider Notation Provider Notation: Although this document has been carefully reviewed, there may still be some phonetic and other typographical errors. These errors are purely grammatical due to imperfections in the software program and should not be construed in any way to compromise the substance of the patient's medical care during this visit. Thank you for the opportunity and privilege in assisting you with this patient's care and management.
--- NOTE | 2025-05-21 09:17 | PD.RESPRO ---
Documentation for date of: 05/21/25 Subjective Subjective Interval history: Patient seen and examined at bedside in the ICU. Telemetry showed atrial fibrillation RVR with heart rate of 115-130. Blood pressures 78 at 120/60 to 80s on vasopressin, Levophed and midodrine. Patient reports nausea and abdominal pain on palpation that started yesterday afternoon. Reports has not had a bowel movement for the past 5 days however started passing gas last night. Denies chest pain, chest pressure, palpitations. WBC decreased from 12.2-10.8, hemoglobin stable 8.7, platelets 93. Potassium 4.2, BUN 8, creatinine 0.9, phosphorus 1, magnesium 1.9. Exam Vital Signs Temp Pulse Resp BP Pulse Ox O2 Del Method O2 Flow Rate 97.2 F 118 H 16 99/65 96 Room Air 0.5 05/21/25 08:57 05/21/25 08:57 05/21/25 08:57 05/21/25 08:57 05/21/25 08:57 05/21/25 08:01 05/21/25 06:47 FiO2 40 05/18/25 08:14 Narrative Exam GENERAL: alert and oriented x3 appears older than stated age HEENT: NC/AT, mucous membranes dry, bilateral sclera anicteric CARDIOVASCULAR: irregular rhythm, tachycardic, no murmurs able to be appreciated, R IJ TDC in place with dried blood, R femoral line in place PULMONARY: distant breath sounds bilaterally, no rales/rhonchi/wheezes ABDOMINAL: soft, non-tender, non-distended, no rebound/guarding, bowel sounds present EXTREMITIES: 3+ pitting edema of BLE L>R, L heel wound wrapped, contracture of L hand, 0/5 strength in LUE and LLE, 4/5 strength RUE and RLE SKIN: LLE wound NEURO: alert, following commands Objective Labs 05/21/25 04:49 05/21/25 14:57 Labs: Laboratory Results - last 24 hr 05/20/25 05/21/25 15:18 04:49 WBC 10.8 RBC 2.71 L Hgb 8.7 L Hct 26.5 L MCV 98 MCH 32.1 MCHC 32.8 RDW Std Deviation 75.2 H Plt Count 93 L Neut % (Auto) 74 Lymph % (Auto) 18 [place] % (Auto) 7 Eos % (Auto) 1 Baso % (Auto) 0 Neut # (Auto) 8.0 H Lymph # (Auto) 1.9 [place] # (Auto) 0.7 Eos # (Auto) 0.1 Baso # (Auto) 0.0 Immature Gran # (Auto) 0.06 H Absolute Nucleated RBC 0.05 H Immature Gran % 1 H Nucleated RBC % 1 H Sodium 137 137 Potassium 4.3 4.2 Chloride 103 101 Carbon Dioxide 28.3 28.5 Anion Gap 6 L 8 BUN < 5 L 7 L Creatinine 0.4 L D 0.9 D Estim Creat Clear Calc 191.0 84.9 eGFR > 60 > 60 BUN/Creatinine Ratio 13 8 L Glucose 160 H 152 H Calculated Osmolality 274 L 274 L Calcium 8.0 L 8.5 Corrected Calcium 8.6 9.0 Phosphorus 1.0 L Magnesium 1.9 Total Bilirubin 1.2 1.1 AST 14 17 ALT 12 14 Alkaline Phosphatase 105 121 H Total Protein 5.0 L 5.4 L Albumin 3.2 L 3.4 Globulin 1.8 L 2.0 L Albumin/Globulin Ratio 1.8 1.7 ABG Interpretation ABG results: 05/17/25 05/17/25 05/17/25 15:40 18:01 19:47 ABG pH 7.05 L* 7.11 L* 7.10 L* ABG pCO2 15 L* 24 L 28 L ABG pO2 229 H 241 H 441 H D ABG HCO3 4 L* 8 L* 9 L* ABG O2 Saturation 100 H 101 H 101 H ABG Base Excess -24 L -20 L -20 L 05/17/25 05/18/25 22:05 04:57 ABG pH 7.27 L D 7.46 H D ABG pCO2 33 31 L ABG pO2 208 H D 194 H ABG HCO3 15 L 22 ABG O2 Saturation 101 H 101 H ABG Base Excess -11 L -1 Quality Measures Quality Measures none Assessment & Plan Assessment Current Active Medications: Generic Name Dose Route Start Last Admin Trade Name Freq PRN Reason Stop Dose Admin Acetaminophen 650 mg 05/20/25 11:14 05/20/25 11:22 Acetaminophen 325 Mg Tablet PO 06/16/25 15:47 650 mg Q6H PRN Administration PAIN 1-10 OR FEVER > 100.4 Amiodarone HCl 200 mg 05/19/25 21:00 05/21/25 08:07 Amiodarone Hcl 200 Mg Tablet PO 06/18/25 20:59 200 mg BID RIANNA Administration Ascorbic Acid 250 mg 05/20/25 21:00 05/21/25 08:08 Ascorbic Acid 250 Mg Tablet PO 06/19/25 20:59 250 mg BID RIANNA Administration Dextrose 25 ml 05/17/25 16:04 Dextrose 50%-Water Inj 50 Ml Syringe IV 06/16/25 16:03 Q15MIN PRN BG 50-70 responsive npo pt Dextrose 50 ml 05/17/25 16:04 Dextrose 50%-Water Inj 50 Ml Syringe IV 06/16/25 16:03 Q15MIN PRN BG <50 OR BG <70 & pt unresponsive Divalproex Sodium 250 mg 05/17/25 22:00 05/21/25 06:00 Divalproex Sod Ec 125 Mg Tabec PO 06/16/25 21:59 250 mg TID RIANNA Administration Epoetin Jemal 10,000 unit 05/19/25 16:45 05/19/25 17:25 Epoetin Jemal-Epbx Inj 10,000 Unit/Ml Vial (Non-Esrd) SC 06/18/25 16:44 10,000 unit MoTh RIANNA Administration Glucagon 1 mg 05/17/25 16:04 Glucagon Inj 1 Mg Vial IM Q15MIN PRN BG <70, and no IV access Heparin Sodium (Porcine) 3,300 unit 05/17/25 16:12 05/20/25 17:52 Heparin Sod Inj 1000 Unit/Ml Vial 10 Ml INDWELLCAT 05/31/25 16:11 3,300 unit PRN PRN Administration DIALYSIS Albumin Human 25 gm in 100 mls @ 100 mls/min 05/17/25 13:44 05/20/25 07:39 Albuminar-25 Ivpb IV Infused PRN PRN Infusion DIALYSIS Norepinephrine/Dextrose 8 mg in 250 mls @ 9.521 mls/hr 05/19/25 07:51 05/21/25 09:16 Levophed In D5w 8mg/250ml IV 06/16/25 17:25 0.03 mcg/kg/min .Q24H PRN 5.713 mls/hr PER PROTOCOL Titration Protocol 0.05 MCG/KG/MIN Vasopressin/Sodium Chloride 20 unit in 100 mls @ 9 mls/hr 05/19/25 08:41 05/21/25 02:45 Vasostrict/Ns Ivpb IV 06/18/25 08:40 0.03 unit/min .Q11H7M PRN 9 mls/hr PER PROTOCOL Administration Protocol 0.03 UNIT/MIN Sodium Phosphate 22.5 mmol/ 507.5 mls @ 82.778 mls/hr 05/21/25 08:15 05/21/25 08:35 Sodium Chloride IV 05/21/25 14:22 82.778 mls/hr X1 ONE Administration Levothyroxine Sodium 50 mcg 05/18/25 06:00 05/21/25 06:04 Levothyroxine Sodium 25 Mcg Tablet PO 06/17/25 05:59 50 mcg ACBR RIANNA Administration Melatonin 3 mg 05/17/25 16:14 05/20/25 21:30 Melatonin 3 Mg Tablet PO 3 mg HS PRN Administration sleep Metoprolol Tartrate 2.5 mg 05/19/25 07:50 Metoprolol Tartrate Inj 1 Mg/Ml Amp 5 Ml IVP 06/18/25 07:59 Q8HR PRN HR >130 Midodrine 10 mg 05/20/25 14:00 05/21/25 06:00 Midodrine 5 Mg Tablet PO 06/18/25 13:59 10 mg TID RIANNA Administration Multivitamins 1 tab 05/19/25 09:23 05/20/25 08:54 Multivitamins Tablet PO 06/18/25 09:14 1 tab On Hold: 05/20/25 15:49 QDAY RIANNA Administration Comment: NEPHROVITE ACTIVE Ondansetron HCl 4 mg 05/20/25 11:14 05/20/25 20:30 Ondansetron Inj 2 Mg/Ml Inj 2 Ml IVP 06/19/25 11:13 4 mg Q8HR PRN Administration NAUSEA OR VOMITING Protocol Pantoprazole Sodium 40 mg 05/18/25 09:00 05/21/25 08:08 Pantoprazole Inj 40 Mg Vial IVP 06/17/25 08:59 40 mg QDAY RIANNA Administration Pharmacy Consult 1 each 05/18/25 08:27 Pharmacy Renal Dose Adjustment 1 Ea XX 06/17/25 08:26 PRN PRN CONSULT Sennosides 1 tab 05/21/25 07:56 05/21/25 08:10 Senna/Docusate Sod 1 Tab Tablet PO 06/20/25 07:55 1 tab QDAY PRN Administration CONSTIPATION Protocol Sodium Chloride 3 ml 05/17/25 13:24 05/17/25 13:36 Sodium Chloride Rt Cristina 0.9% 3 Ml Nebu INH 06/16/25 13:23 3 ml PRN PRN Administration SOLN Vitamin B Complex/Vit C/Folic Acid 1 tab 05/20/25 15:45 05/21/25 08:08 Vit B12/Vit C/Fa (Nephrovite) Tablet PO 06/19/25 15:44 1 tab QDAY RIANNA Administration Zinc Sulfate 220 mg 05/20/25 15:45 05/21/25 08:08 Zinc Sulfate 220 Mg Capsule PO 06/03/25 15:44 220 mg QDAY RIANNA Administration Plan Hollie Whaley 64F with pmhx significant for CVA, atrial fibrillation on Xarelto, HFrEF (15-20% 04/2025), newly ESRD on HD (TThSat), hypothyroidism who presented to [facility] ED on 05/17 for SOB, admitted for lactic acidosis with hyperkalemia. Emergent HD begun, however 30 minutes into HD, patient became hypotensive and progressively confused. Patient was then admitted to ICU where she was subsequently placed on pressors and intubated. Cardiology consulted for management of atrial fibrillation with RVR. #Atrial fibrillation RVR 2/ #Metformin associated lactic acidosis #Shock, unknown etiology #Hx of atrial fibrillation Patient has a history of A-fib on Eliquis and previously took metoprolol XL 50 mg QD for rate control and on previous hospitalization, patient experienced bradycardia and hypotension with metoprolol and was started on amiodarone 200 mg BID. Admission labs ABG 7.05//229/4, K 6.1, bicarb <10, AG 32, BUN 27, Cr 4.1, glucose 42, lactic acid 22, Mg 2.2, LDH 337, trop 0.023, BNP 1945. Unlikely cardiogenic shock as in spite of patient having severe HFrEF, admission troponins are negative. EKG shows afib RVR rate 111 with left axis deviation. 05/18/25 Patient was intubated and tele in ICU showed atrial fibrillation RVR 120-130s. Atrial fibrillation RVR likely secondary to severe lactic acidosis. Ddx for lactic acidosis includes, ESBL UTI, TDC infection, bacteremia, medication s/e. CHADSVASC score 4, 4.8% stroke risk per year HASBLED 3 s/p IV amiodarone (05/17-05/18) Plan: - PO amiodarone 200 mg BID as patient is now able to tolerate oral and given patient hx of atrial fibrillation as well as low EF and to decrease arrhythmias such as VT and VF risk as pt does have dilated cardiomyopathy - Patient was previously given metoprolol on past admission and patient experienced hypotension and bradycardia, recommend to avoid metoprolol at this time - F/u echocardiogram - If patient remains tachycardic, recommend to switch norepinephrine to phenylephrine given atrial fibrillation with RVR - Monitor QTc closely - Continue heparin drip for anticoagulation over Eliquis as heparin is more convenient to stop if patient requires surgery, drop in Hgb or further operations - Consider restarting Eliquis once patient has been downgraded to floors - Telemetry/ICU for cardiac monitoring - Keep K>4 and Mg>2 #HFrEF (15-20% 04/2025) #Dilated cardiomyopathy Patient endorses remote occasional cocaine use for only one year. Denies previous OK, having ever seen a corporate wellness coordinator or ever having a cardiac catheterization done. Per brother, atrial fibrillation runs in the family, unsure of heart failure or cardiac . 2022 Echocardiogram shows dilated cardiomyopathy, severe global hypokinesis with estimated EF 25 to 30%, normal RV size, LA mildly dilated, mild MR. 04/2025 Echocardiogram shows dilated cardiomyopathy, moderately dilated LV, severe global hypokinesis and severe systolic dysfunction estimated EF 15 to 20%. Normal RV size, reduced systolic function. RA estimated RVSP 45 mmHg, moderate pulmonary hypertension, moderate MR and mild TR, trace to mild AI, LA severely dilated, RA severely dilated, mildly dilated ascending body measuring 3.9 cm Plan: - Plan to initiate GDMT once blood pressure tolerates however avoid SGLT2 inhibitors due to current dialysis status - Strict I&O and daily weights - Continue to follow up outpatient for further management - May need defibrilator due severe HFrEF if pt does not respond to maximum GDMT for more 3 months - Considering cardiac catheterization as a cause of dilated cardiomyopathy (if not performed before) prior to discharge however patient has been bed bound for a long time due to bilateral foot drop and LLE weakness and cardiac catheterization may not be indicated #ESRD on HD (T//Fri) #Normocytic anemia #Hypotension 2/2 sepsis #Leukocytosis #Nephrolithiasis #Hypothyroidism #CVA #Mood disorder Plan: - Above managed by primary team Thank you for your consultation and allowing participation in patient's care. Plan of care discussed with attending Dr. Swapna August, DO PGY-1 Internal Medicine Attending Provider Attestation/Addendum I have personally seen and examined the patient separately on the above date of service and discussed the plan of care with the resident. I reviewed the resident Dr. Donya August consultation progress note and agree with the resident findings and plan in the note above and have also edited the documentation to reflect my findings and plan. Bishnu Barcenas M.D. Interventional Cardiology
[2025-05-21] MEDS: LACTULOSE SYRUP 20 GM/30 ML UDC 45 GM PO (09:23)
[2025-05-21] MEDS: ONDANSETRON INJ 2 MG/ML INJ 2 ML 4 MG IVP (09:30)
[2025-05-21] MEDS: DOXYCYCLINE INJ 100 MG in SODIUM CHLORIDE 0.9% (POP) 100 ML IV ×2 (10:13→21:02)
[2025-05-21 10:16] LABS: Albumin, Serum 3.1 gm/dL (3.4-4.8); Anion Gap 8 (7-16); BUN/Creatinine Ratio 8 Ratio (12-20); Blood Urea Nitrogen 8 mg/dL (9-23); Calcium 8.0 mg/dL (8.3-10.6); Calcium (Corrected) 8.7 mg/dL (8.5-10.1); Carbon Dioxide 27.1 mMol/L (20.0-31.0); Chloride 102 mMol/L (98-107); Creatinine (Component) 1.0 mg/dL (0.6-1.3); Estimated Creatinine Clearance 77.7 mL/min (>60); Glucose 152 mg/dL (74-106); Osmolality,Calculated 275 (275-295); Phosphorous 2.5 mg/dL (2.4-5.1); Potassium 4.1 mMol/L (3.4-5.1); Sodium 137 mMol/L (136-145); eGFR > 60 See Note
--- NOTE | 2025-05-21 10:28 | ESPR_ITS ---
<Statement entered by Marc Samayoa MD - 05/21/25 15:20> Senior Resident Attestation: I supervised/discussed management plan with human resource internship physician Dr. Beasley, and was involved in the care of this patient. I personally saw and examined the patient and discussed the assessment and plan with the entire medicine team, including my attending. I agree with the assessment and plan as documented. Patient was seen and examined at the bedside. She reports some abdominal discomfort, her last bowel movement was 4 days ago, she was given docusate and lactulose. Her blood pressure was stable and she was able to maintain MAP between 60 and 65, her Levophed was discontinued however she still remains on vasopressin. Will continue patient on vasopressin and will attempt to wean off as tolerated, will continue on midodrine too. Per nephrology recommendation patient will undergo CRRT for the next 24 hours. Her heparin drip was resumed today due to ongoing A-fib. Patient's care was discussed with attending physician, Dr. Ervin. Marc Samayoa MD PGY-3. Documentation for date of: 05/21/25 Subjective Subjective Interval history: (Below account was synthesized primarily from chart checking as patient had already become intubated before this radio news writer's interview) Patient is a 64-year-old F with a PMH of cerebrovascular accident, atrial fibrillation, heart failure with reduced ejection fraction (25-30% in January 2023), chronic kidney disease (ON dialysis Friday, and Friday), and hypothyroidism who was sent from a SNF for worsening oxygen saturation. Of note, patient had apparently missed her Friday HD session. In the ED, vitals showed: BP 114/88 HR 112 RR 22 Temp 97.9 SpO2 100% on 15 L oxy mask with FiO2 100% ED Course: CBC showed WBC 15.3, hemoglobin 11.0 (MCV 113, RDW 91.3), and platelet count 201. Coagulation panel showed PT 17.2, INR 1.6, APTT 36.7. ABG of the right radial artery showed pH 7.05, pCO2 15, PaO2 229, and HCO3 4. CMP showed sodium 139, potassium 6.1, chloride 97, carbon dioxide less than 10.0, anion gap 32, BUN 27, creatinine 4.1, eGFR 12, blood glucose 42, lactic acid 22.0, LDH 337, and BNP 1945. UA showed cloudy, light orange urine with pH 5.5, 1+ protein, 1+ ketones, 3+ blood, negative nitrate, positive leukocyte esterase, RBC 82, and WBC 1329. UDS was positive for opiates (patient received fentanyl in the hospital) and negative for all else. Imagin/16 chest x-ray showed mild enlargement of the cardiac contour and prominent vascular congestion suggestive of mild heart failure but without riccardo pulmonary edema or lobar pneumonia. 05/17 EKG showed atrial fibrillation with rapid ventricular response and heart rate 111, marked left axis deviation and bundle branch block, and QTc 492. Initially, a rapid response had been called around 16:30 for worsening SpO2 of 78% and patient was switched from oxy mask to high flow nasal cannula which improved her SpO2 to 92%. At that time, Nephrology (Dr. Landry) was consulted and it was recommended that patient begin receiving inpatient HD. Patient was started on dialysis and tolerated it for 30 minutes before developing MAP of 58-61. At this point, HD was paused and over the next 40 minutes patient received IV albumin 25 mL x2 and IV Tylenol for shivering and hypothermia of 96.4 with plans to administer IV meropenem 1 gm post-HD. However, patient's BP did not improve during this reprieve and a second rapid response was called around 17:45 for worsening hypotension of 80/40 and deteriorating mentation (shifting from A&O x 2 to responding only to sternal rub). Due to the above, ICU was contacted and patient was upgraded from Telemetry to ICU for pressor support with Levophed and intubation (induction agent: IV etomidate 30 mg, muscle relaxant: IV rocuronium 100 mg) in the setting of suspected septic shock 2/2 UTI. Central femoral line has been placed successfully but arterial line was unable to be installed. Patient's person to notify, Damian Hopkins (son), was called and informed about patient's diagnosis, current acute status, and admission into the ICU. Interval History 05/18/25: No overnight events. Patient was examined at bedside; she has been extubated and is no longer being chemically sedated with IV fentanyl. With regards to labs, WBC down trended to 10.4 from 15.3, hemoglobin down trended to 8.8 from 11.0, platelet count down trended to 93 from 201, APTT up trended to 57.4 from 36.7, ABG blood pH up trended to 7.46 from 7.05, pCO2 up trended to 31 from 15, PO2 194, HCO3 up trended to 22 from 4, potassium down trended to 3.2 from 6.1, carbon dioxide up trended to 22.8 from less than 10.0, anion gap downtrended to 17 from 32, BUN down trended to 6 from 27, creatinine down trended to 1.1 from 4.1, eGFR up trended to 56 from 12, blood glucose 116, hemoglobin A1c 5.0, lactic acid down trended to 2.2 from 22.0, phosphorus 1.1, and magnesium 1.7. She is slated to receive CRRT today. Due to continued need for pressor support, patient continues to meet criteria for ICU management. 05/19/25: Overnight Levophed was titrated to 0.19 from 0.17. Was on PIRRT overnight with a total of 1.5 ultrafiltration. Input 1944 cc, output 0, balance 1944 cc. This morning patient denied any SOB, chest pain/pressure or palpitations. She stated that she feels better and is eager to get back to her facility with her . Hb decreased to 7.5 from 8.8, WBC 12.2, NA 136, K4.2, BUN <5, CR 0.7, Phos 1.2, magnesium 1.7. From telemetry patient was in A- fib overnight with heart rates in 120s?130s. Currently amiodarone infusion and heparin infusion ongoing. Will start on vasopressin and downtitrate Levophed for heart rate improvement, also sat in new parameter for acceptable MAP >60. Will also put a hold on heparin infusion due to new finding of acute blood loss anemia. Metoprolol IV as needed for HR >130. repleted with sodium phosphate 22.5 mmol IV x 1, magnesium sulfate 4 g IV x 1. 1 unit PRBC ordered 05/20/25: No overnight events. Patient was examined at bedside; she was observed to be sitting upright in her bed, eating breakfast, and receiving PIRRT. She denies having new symptoms or complaints and expressed interest in knowing when she would be able to be discharged back to [facility] so she can be with her . Patient continues to have atrial fibrillation with HR of 100s and blood pressures continue to be soft, ranging between MAP of 60-70 while receiving PO midodrine 10 mg TID, 0.01 Levophed, and 0.03 Vasopressin. Notable labs today include: WBC 12.2 (same as yesterday), hemoglobin bump to 8.2 from 7.5, platelet count drop to 82 from 111, PT 13.5, creatinine bump to 1.6 from 0.7, eGFR drop to 36 from greater than 60, blood glucose 184, and corrected calcium 8.3 (repleted with PO calcium carbonate x 1). There has finally been a development in the mystery surrounding the likely inciting event that led to patient's current ICU admission. Originally, patient's severely elevated lactic acid level of 22.0 upon admission had been tentatively attributed to hypoperfusion 2/2 septic shock from UTI but this explanation had not been very convincing as lactic acid elevations of this degree solely from septic shock without concomitant multi-organ failure would be highly unusual/atypical (usual ranges would be between 2 - 10). Other differentials had included adverse medication effects from antihypertensives or ASA toxicity but these etiologies also lacked sufficient evidence corroborating them. Upon review of patient's paper charts from [facility], it was discovered that patient had been receiving PO metformin 1000 mg BID between 05/11 - 05/16 despite her last recorded creatinine and eGFR on 05/11 being 3.1 and 16, respectively. It is very likely that patient's intake of metformin (which is absolutely contraindicated for creatinine above 1.4 or eGFR < 30), in the setting of severe renal impairment, led to severe lactic acidosis via its mechanism of increased lactate production from shunting towards anaerobic metabolism (along with poor renal clearance of metformin). Although the patient may have also been experiencing septic shock 2/2 UTI, which may have also contributed to the patient's severe lactic acidosis, the primary contributor to her presentation was most likely metformin-associated lactic acidosis ([id number]). Knowing this, [facility] was contacted and it was urged to patient's nurse that her metformin be discontinued to prevent such an event from occurring again. Her nurse has voiced her understanding and agreement, and has also requested that her documentation from [facility] have this stipulation chronicled in her Discharge Summary for extra prevention via redundancy. In terms of management updates, patient's IV amiodarone drip has been switched to PO amiodarone, IV meropenem has been discontinued, and she will continue receiving CRRT/PIRRT/HD as guided by Nephrology. In terms of blood pressure management, patient will continue receiving vasopressin, Levophed, and midodrine to maintain a goal MAP of 60 or greater and she can be downgraded to floors when she no longer requires pressor support and is clinically stable. 05/21/25: Patient's nausea and abdominal pain that started yesterday evening continued throughout the night and she received senna, Maalox, and Reglan (with Reglan seeming the most effective in treating her symptoms). Today, patient was examined at bedside; she continues to complain about nausea, abdominal pain, inability to eat, sweating and a general sense of malaise that she was not reporting yesterday. Per nurse, patient has not had a bowel movement since 05/17 before she was admitted. On physical exam, patient has generalized tenderness to palpation of the abdomen that is most severe at the midline regions and hypoactive bowel sounds on auscultation. Labs today significant for Hgb bump to 8.7 from 8.2, platelet bump to 93 from 82, creatinine bump to 0.4 from 1.0, and TSH 5.31. Abdominal X-ray showed abundant stool throughout the colon and mild small bowel ileus. Patient's blood pressure continues to be soft with most readings in the 80-100s/50-80s despite being on PO midodrine 10 mg TID, Levophed 0.07, and vasopressin 0.03. In terms of the plan, patient will continue having her blood pressure managed with the 3 aforementioned agents titrated for a goal MAP of > 60 until she can be weaned off of pressors, be started on IV doxycycline 100 mg BID in order to achieve 7 days of antibiotic coverage (has already received IV meropenem 500 mg qD from 05/17-05/20), continued on her PO amiodarone for her atrial fibrillation (currently rate uncontrolled), given lactulose (alongside colace and senna as needed) to help with BMs, restarted on heparin for DVT prophylaxis, and continued on her home levothyroxine. She will also be receiving 24 hours of CRRT today per nephrology recommendations. Due to continued need for pressor support, patient continues to meet criteria for ICU-level management. Exam Vital Signs Temp Pulse Resp BP Pulse Ox O2 Del Method O2 Flow Rate 96.0 F L 96 12 101/75 100 Room Air 0.5 05/21/25 09:45 05/21/25 10:16 05/21/25 10:16 05/21/25 10:15 05/21/25 10:16 05/21/25 08:01 05/21/25 06:47 FiO2 40 05/18/25 08:14 Narrative Exam General: A/O x3, no acute distress, Elderly, overweight woman w/ L sided paraplegia who appears older than stated age Head: Normocephalic, atraumatic. Eyes: Pupils equal but seemingly hyporeactive to light, EOMI. Anicteric, vision grossly intact. Ears: No ear pain, no ear discharge, Hearing grossly intact. Mouth/Throat: Edentulous. Oral mucosa adequately hydrated. No obvious lesions in oropharynx. Cardiovascular: Tachycardic, irregularly irregular rhythm, no murmur, no JVD or carotid bruits. +S1/S2. Right IJ TDC in place with dried blood. Right femoral line in place. Exit site clean. Respiratory: Bilateral lung amaro clear to auscultation with some crackles heard in lower regions of posterior lung amaro. No increase in work of breathing or use of accessory muscles noted. Gastrointestinal: Generalized tenderness to palpation of abdomen, especially at the midline. Soft, non-distended, no palpable masses. No guarding or rebound tenderness. Bowel sounds slightly hypoactive. Extremities: 4+ pitting edema to the level of the thighs bilaterally, left heel wound wrapped, contracture of left hand. Left toes appear dusky. Pedal pulses weak but present. No clubbing. Neuro: No acute neurological deficits outside of L sided paraplegia noted. Conversant, moving all extremities. No overt cerebellar signs/incoordination. Psychiatric: Cooperative, appropriate affect. Skin: Multiple ecchymoses noted on bilateral upper limbs (with more on L than R) and around tunneled dialysis catheter. Flaky skin noted at forehead and lower extremities. Objective Labs 05/21/25 04:49 05/21/25 09:35 Labs: Laboratory Results - last 24 hr 05/20/25 05/21/25 05/21/25 15:18 04:49 09:35 WBC 10.8 RBC 2.71 L Hgb 8.7 L Hct 26.5 L MCV 98 MCH 32.1 MCHC 32.8 RDW Std Deviation 75.2 H Plt Count 93 L Neut % (Auto) 74 Lymph % (Auto) 18 [place] % (Auto) 7 Eos % (Auto) 1 Baso % (Auto) 0 Neut # (Auto) 8.0 H Lymph # (Auto) 1.9 [place] # (Auto) 0.7 Eos # (Auto) 0.1 Baso # (Auto) 0.0 Immature Gran # (Auto) 0.06 H Absolute Nucleated RBC 0.05 H Immature Gran % 1 H Nucleated RBC % 1 H Sodium 137 137 137 Potassium 4.3 4.2 4.1 Chloride 103 101 102 Carbon Dioxide 28.3 28.5 27.1 Anion Gap 6 L 8 8 BUN < 5 L 7 L 8 L Creatinine 0.4 L D 0.9 D 1.0 Estim Creat Clear Calc 191.0 84.9 77.7 eGFR > 60 > 60 > 60 BUN/Creatinine Ratio 13 8 L 8 L Glucose 160 H 152 H 152 H Calculated Osmolality 274 L 274 L 275 Calcium 8.0 L 8.5 8.0 L Corrected Calcium 8.6 9.0 8.7 Phosphorus 1.0 L 2.5 Magnesium 1.9 Total Bilirubin 1.2 1.1 AST 14 17 ALT 12 14 Alkaline Phosphatase 105 121 H Total Protein 5.0 L 5.4 L Albumin 3.2 L 3.4 3.1 L Globulin 1.8 L 2.0 L Albumin/Globulin Ratio 1.8 1.7 ABG Interpretation ABG results: 05/17/25 05/17/25 05/17/25 15:40 18:01 19:47 ABG pH 7.05 L* 7.11 L* 7.10 L* ABG pCO2 15 L* 24 L 28 L ABG pO2 229 H 241 H 441 H D ABG HCO3 4 L* 8 L* 9 L* ABG O2 Saturation 100 H 101 H 101 H ABG Base Excess -24 L -20 L -20 L 05/17/25 05/18/25 22:05 04:57 ABG pH 7.27 L D 7.46 H D ABG pCO2 33 31 L ABG pO2 208 H D 194 H ABG HCO3 15 L 22 ABG O2 Saturation 101 H 101 H ABG Base Excess -11 L -1 Quality Measures Quality Measures none Assessment & Plan Assessment Current Active Medications: Generic Name Dose Route Start Last Admin Trade Name Freq PRN Reason Stop Dose Admin Acetaminophen 650 mg 05/20/25 11:14 05/20/25 11:22 Acetaminophen 325 Mg Tablet PO 06/16/25 15:47 650 mg Q6H PRN Administration PAIN 1-10 OR FEVER > 100.4 Amiodarone HCl 200 mg 05/19/25 21:00 05/21/25 08:07 Amiodarone Hcl 200 Mg Tablet PO 06/18/25 20:59 200 mg BID RIANNA Administration Ascorbic Acid 250 mg 05/20/25 21:00 05/21/25 08:08 Ascorbic Acid 250 Mg Tablet PO 06/19/25 20:59 250 mg BID RIANNA Administration Dextrose 25 ml 05/17/25 16:04 Dextrose 50%-Water Inj 50 Ml Syringe IV 06/16/25 16:03 Q15MIN PRN BG 50-70 responsive npo pt Dextrose 50 ml 05/17/25 16:04 Dextrose 50%-Water Inj 50 Ml Syringe IV 06/16/25 16:03 Q15MIN PRN BG <50 OR BG <70 & pt unresponsive Divalproex Sodium 250 mg 05/17/25 22:00 05/21/25 06:00 Divalproex Sod Ec 125 Mg Tabec PO 06/16/25 21:59 250 mg TID RIANNA Administration Epoetin Jemal 10,000 unit 05/19/25 16:45 05/19/25 17:25 Epoetin Jemal-Epbx Inj 10,000 Unit/Ml Vial (Non-Esrd) SC 06/18/25 16:44 10,000 unit MoTh RIANNA Administration Glucagon 1 mg 05/17/25 16:04 Glucagon Inj 1 Mg Vial IM Q15MIN PRN BG <70, and no IV access Heparin Sodium (Porcine) 3,300 unit 05/17/25 16:12 05/20/25 17:52 Heparin Sod Inj 1000 Unit/Ml Vial 10 Ml INDWELLCAT 05/31/25 16:11 3,300 unit PRN PRN Administration DIALYSIS Albumin Human 25 gm in 100 mls @ 100 mls/min 05/17/25 13:44 05/20/25 07:39 Albuminar-25 Ivpb IV Infused PRN PRN Infusion DIALYSIS Norepinephrine/Dextrose 8 mg in 250 mls @ 9.521 mls/hr 05/19/25 07:51 05/21/25 09:16 Levophed In D5w 8mg/250ml IV 06/16/25 17:25 0.03 mcg/kg/min .Q24H PRN 5.713 mls/hr PER PROTOCOL Titration Protocol 0.05 MCG/KG/MIN Vasopressin/Sodium Chloride 20 unit in 100 mls @ 9 mls/hr 05/19/25 08:41 05/21/25 02:45 Vasostrict/Ns Ivpb IV 06/18/25 08:40 0.03 unit/min .Q11H7M PRN 9 mls/hr PER PROTOCOL Administration Protocol 0.03 UNIT/MIN Sodium Phosphate 22.5 mmol/ 507.5 mls @ 82.778 mls/hr 05/21/25 08:15 05/21/25 08:35 Sodium Chloride IV 05/21/25 14:22 82.778 mls/hr X1 ONE Administration Heparin Sodium/Dextrose 25,000 unit in 250 mls @ 10 mls/hr 05/21/25 10:15 Heparin In D5w Ivpb IV 06/04/25 10:14 .Q24H RIANNA Protocol 9.615 UNITS/KG/HR Doxycycline Hyclate 100 mg/ 100 mls @ 100 mls/hr 05/21/25 10:00 05/21/25 10:13 Sodium Chloride IV 05/28/25 09:59 100 mls/hr BID RIANNA Administration Levothyroxine Sodium 50 mcg 05/18/25 06:00 05/21/25 06:04 Levothyroxine Sodium 25 Mcg Tablet PO 06/17/25 05:59 50 mcg ACBR RIANNA Administration Melatonin 3 mg 05/17/25 16:14 05/20/25 21:30 Melatonin 3 Mg Tablet PO 3 mg HS PRN Administration sleep Metoprolol Tartrate 2.5 mg 05/19/25 07:50 Metoprolol Tartrate Inj 1 Mg/Ml Amp 5 Ml IVP 06/18/25 07:59 Q8HR PRN HR >130 Midodrine 10 mg 05/20/25 14:00 05/21/25 06:00 Midodrine 5 Mg Tablet PO 06/18/25 13:59 10 mg TID RIANNA Administration Multivitamins 1 tab 05/19/25 09:23 05/20/25 08:54 Multivitamins Tablet PO 06/18/25 09:14 1 tab On Hold: 05/20/25 15:49 QDAY RIANNA Administration Comment: NEPHROVITE ACTIVE Ondansetron HCl 4 mg 05/20/25 11:14 05/21/25 09:30 Ondansetron Inj 2 Mg/Ml Inj 2 Ml IVP 06/19/25 11:13 4 mg Q8HR PRN Administration NAUSEA OR VOMITING Protocol Pantoprazole Sodium 40 mg 05/18/25 09:00 05/21/25 08:08 Pantoprazole Inj 40 Mg Vial IVP 06/17/25 08:59 40 mg QDAY RIANNA Administration Pharmacy Consult 1 each 05/18/25 08:27 Pharmacy Renal Dose Adjustment 1 Ea XX 06/17/25 08:26 PRN PRN CONSULT Sennosides 1 tab 05/21/25 07:56 05/21/25 08:10 Senna/Docusate Sod 1 Tab Tablet PO 06/20/25 07:55 1 tab QDAY PRN Administration CONSTIPATION Protocol Sodium Chloride 3 ml 05/17/25 13:24 05/17/25 13:36 Sodium Chloride Rt Cristina 0.9% 3 Ml Nebu INH 06/16/25 13:23 3 ml PRN PRN Administration SOLN Vitamin B Complex/Vit C/Folic Acid 1 tab 05/20/25 15:45 05/21/25 08:08 Vit B12/Vit C/Fa (Nephrovite) Tablet PO 06/19/25 15:44 1 tab QDAY RIANNA Administration Zinc Sulfate 220 mg 05/20/25 15:45 05/21/25 08:08 Zinc Sulfate 220 Mg Capsule PO 06/03/25 15:44 220 mg QDAY RIANNA Administration Plan Patient is a 64-year-old F with a PMH of cerebrovascular accident, atrial fibrillation, heart failure with reduced ejection fraction (25-30% in January 2023), chronic kidney disease (ON dialysis Friday, and Friday), and hypothyroidism who was sent from a SNF for worsening oxygen saturation. Patient received inpatient HD due to multiple metabolic abnormalities but developed pervasive and refractory hypotension during the session. Patient's nausea and abdominal pain that started yesterday evening continued throughout the night and she received senna, Maalox, and Reglan (with Reglan seeming the most effective in treating her symptoms). Today, patient was examined at bedside; she continues to complain about nausea, abdominal pain, inability to eat, sweating and a general sense of malaise that she was not reporting yesterday. Per nurse, patient has not had a bowel movement since 05/17 before she was admitted. On physical exam, patient has generalized tenderness to palpation of the abdomen that is most severe at the midline regions and hypoactive bowel sounds on auscultation. Labs today significant for Hgb bump to 8.7 from 8.2, platelet bump to 93 from 82, creatinine bump to 0.4 from 1.0, and TSH 5.31. Abdominal X-ray showed abundant stool throughout the colon and mild small bowel ileus. Patient's blood pressure continues to be soft with most readings in the 80-100s/50-80s despite being on PO midodrine 10 mg TID, Levophed 0.07, and vasopressin 0.03. In terms of the plan, patient will continue having her blood pressure managed with the 3 aforementioned agents titrated for a goal MAP of > 60 until she can be weaned off of pressors, be started on IV doxycycline 100 mg BID in order to achieve 7 days of antibiotic coverage (has already received IV meropenem 500 mg qD from 05/17-05/20), continued on her PO amiodarone for her atrial fibrillation (currently rate uncontrolled), given lactulose (alongside colace and senna as needed) to help with BMs, restarted on heparin for DVT prophylaxis, and continued on her home levothyroxine. She will also be receiving 24 hours of CRRT today per nephrology recommendations. Due to continued need for pressor support, patient continues to meet criteria for ICU-level management. NEURO #History of CVA w/ residual L-sided weakness Dx: -05/01/[address] w/o contrast showed large old infarct of R MCA and smaller old infarct of R cerebellar hemisphere which remains unchanged from similar findings on 09/10/15 Rx: -May consider antiplatelet therapy -May consider restarting patient's home PO AtorvaliQ 20 mg qD RRx: -Chronic condition without current acute ramifications CARDIO Undifferentiated shock, requiring vasopressors During dialysis, patient developed a MAP of 58-61 and acute hypotension of 80/40 that was refractory to IV albumin and required pressor support (in the setting of severe lactic acidosis as well) Originally, shock was thought to be distributive in nature 2/2 septic inflammatory vasodilation but this seems less likely now due to elevated SVR On passive leg raise, SVI and CI mildly increased, indicating some level of fluid responsiveness and suggesting some hypovolemic component to patient's shock Favor cardiogenic etiology as primary component of shock at this time DDx: cardiogenic shock (EF 15-20%), hypovolemic shock, distributive shock, obstructive shock Dx: -05/21 NICOM readings: SVR 1345, SVI 23, CI 2.4 -05/21 NICOM readings (PLR): SVR 1345, SVI 27, CI 2.8 Rx: -Continue PO midodrine 10 mg TID to maintain MAP > 60 -If refractory to midodrine, continue IV vasopressin titrated to maintain MAP > 60 (with goal of weaning patient off of Levophed) -If refractory to vasopressin, continue IV Levophed titrated to maintain MAP > 60 RRx: ? MAP of greater than 60 is acceptable, but patient has required more pressor support today than yesterday #Atrial fibrillation with RVR Per Cardiology note, patient has history of atrial fibrillation on Eliquis and previously took metoprolol XL 50 mg qD for rate control During previous hospitalization, patient experienced bradycardia and hypotension with metoprolol and was started on PO amiodarone 200 mg BID Currently suspect that atrial fibrillation with RVR is 2/2 severe lactic acidosis (LA 22.0) which itself was most likely due to metformin intake in the setting of severe renal impairment CHADSVASC score 4, 4.8% stroke risk per year HASBLED 3 Dx: -05/17 EKG showed atrial fibrillation with rapid ventricular response and heart rate 111, marked left axis deviation and bundle branch block, and QTc 492 -Other pertinent labs: (upon admission) lactic acid 22.0, potassium 6.1, CO2 less than 10.0, anion gap 32, BUN 27, creatinine 4.1, blood glucose 42, LDH 337, BNP 1945, ABG blood pH 7.05, HCO3 4 Rx: -Continue PO amiodarone 200 mg BID -Restarted heparin drip @ 9.615 units/kg/hr -Continuous cardiac monitoring -Maintain K>4 and Mg>2 RRx: -Patient continues to have atrial fibrillation today with HR in the 100s, seems relatively stable and asymptomatic #HFrEF (EF 15-20%, 04/2025) #Dilated cardiomyopathy Cardiology currently has low suspicion for HFrEF exacerbation Dx: -2022 echocardiogram showed dilated cardiomyopathy, severe global hypokinesis with estimated EF of 25-30%, normal RV size, mildly dilated LA, and mild MR -04/2025 echocardiogram shows dilated cardiomyopathy, moderately dilated LV, severe global hypokinesis and severe systolic dysfunction with estimated EF of 15-20%. It also showed normal RV size, reduced systolic function, RA estimated RVSP 45 mmHg, moderate pulmonary hypertension, moderate MR and mild TR, trace to mild AI, severely dilated LA, severely dilated RA, and mildly dilated ascending body measuring 3.9 cm -BNP 1944, Troponin I WNL Rx: -Per cardiology recommendations, plan to initiate GDMT once blood pressure can tolerate it but avoid SGLT-2 inhibitors due to patient's ESRD on HD status -Strict I's & O's and daily weights -Outpatient follow-up with cardiology for further management (may need defibrillator if HFrEF symptoms are refractory to GDMT for over 3 months and cardiac catheterization to rule out CAD as a cause of dilated cardiomyopathy) RRx: -Based on 05/21 NICOM, patient is possibly mildly hypovolemic PULM No acute problems GI #Abdominal pain Patient's nausea and abdominal pain that started in the evening of 05/20 continued throughout the night and she received senna, Maalox, and Reglan (with Reglan seeming the most effective in treating her symptoms). Today, patient was examined at bedside; she continues to complain about nausea, abdominal pain, inability to eat, sweating and a general sense of malaise that she was not reporting yesterday. Per nurse, patient has not had a bowel movement since 05/17 before she was admitted. DDx: gastroparesis, obstructive etiologies Dx: -05/21 abdominal X-ray showed abundant stool throughout the colon and mild small bowel ileus. -On physical exam, patient has generalized tenderness to palpation of the abdomen that is most severe at the midline regions and hypoactive bowel sounds on auscultation. Rx: -Lactulose -Colace, senna prn -Zofran prn -Hold PO intake NEPHRO #ESRD on HD (//Fri), missed HD session #Hypophosphatemia Dx: -05/17 ABG of the right radial artery showed pH 7.05, pCO2 15, PaO2 229, and HCO3 4. -Today, creatinine bump to 0.9 from 0.4, phosphorus 1.0 Rx: -IV NaPhos 22.5 mmol x1 -Nephrology, Dr Landry consulted. Appreciate recommendations -CRRT for 24 hours today beginning at 9 AM -Plan to resume HD once hemodynamically stable #Metformin-associated lactic acidosis (resolved) On presentation, patient had a lactic acid level of 22 which has now down- trended to 2.2. Patient's severely elevated lactic acid level of 22.0 upon admission had been tentatively attributed to hypoperfusion 2/2 septic shock from UTI but this explanation had not been very convincing as lactic acid elevations of this degree solely from septic shock without concomitant multi-organ failure would be highly unusual/atypical (usual ranges would be between 2 - 10). Per [facility] paper charts, patient had been receiving PO metformin 1000 mg BID between 05/11 - 05/16 despite her last recorded creatinine and eGFR on 05/11 being 3.1 and 16, respectively. It is very likely that patient's intake of metformin (which is absolutely contraindicated for creatinine above 1.4 or eGFR < 30), in the setting of severe renal impairment, led to severe lactic acidosis via its mechanism of increased lactate production from shunting towards anaerobic metabolism (along with poor renal clearance of metformin). DDx: minor contributions outside of [place] may include a combination of etiologies including tissue hypoperfusion 2/2 septic shock and/or cardiogenic shock, hypoglycemia-induced anaerobic metabolism, ESBL UTI, or bacteremia Dx: -ABG of the right radial artery showed pH 7.05, pCO2 15, PaO2 229, and HCO3 4. -Lactic acidosis has now down-trended from 22.0 to 2.2 _ ____ Rx: -Called [facility] and emphasized the importance of discontinuing patient's metformin PLEASE TAKE EXTRA CARE TO DOCUMENT THAT PATIENT'S METFORMIN BE DISCONTINUED ON DISCHARGE SUMMARY _ ____ HEME #Acute blood loss anemia #Chronic normocytic anemia Patient has no obvious signs of bleeding, however hemoglobin acutely dropped on 05/19 (right after starting heparin infusion on 05/18). DDx: Occult GI bleed Dx: -Hb 8.5 ?>7.5 ?> 8.2 (today, 05/20) -05/19 iron panel: iron 17, TIBC 163, iron sat 10, unsat iron binding 146 (likely mixed NELDA + ACD) -Type and screen completed Rx: -Heparin has been resumed today, 05/21 RRx: -Currently, no active signs of bleeding and hemoglobin has improved from yesterday Leukocytosis (resolved) DDx: UTI, reactive Dx: -05/21, WBC down-trended to 10.8 from 12.2 Rx: - Monitor for signs of infection and CBC ENDO #Hypothyroidism Dx: -TSH 5.31 Rx: -Continue home levothyroxine ID Complicated UTI Sterile pyuria Of note, patient was apparently discharged on 05/11/25 for nausea/vomiting/abdominal pain 2/2 septic shock 2/2 E.coli UTI and also has PMH of ESBL UTI Although patient had a negative urine culture, results and continue antibiotics as she recently completed a course and this may have contributed to her negative result. Dx: -UA showed cloudy, light orange urine with pH 5.5, 1+ protein, 1+ ketones, 3+ blood, negative nitrate, positive leukocyte esterase, RBC 82, and WBC 1329. -Urine culture showed contamination, final -Blood cultures showed no bacterial growth x 48 hours, preliminary -Patient denies having any urinary symptoms Rx: -Started IV doxycycline 100 mg BID [05/21--], plan to continue until last dose on 05/24 -Discontinued IV meropenem 500 mg qD [05/17?05/20] RRx: -Patient has not complained of any urinary symptoms MSK #No active problems SKIN #Decubitus ulcer on L LE Present on admission Rx: -Wound care as needed Disposition: Norepinephrine IV, vasopressin IV. PIRRT DVT prophylaxis: Heparin GI prophylaxis: Protonix Diet: Renal Turner: Present Lines: Peripheral IV, Central IV Antibiotics: Doxycycline CODE STATUS: FULL Plan of care discussed with Attending Dr. Arcadio Beasley, DO Internal Medicine, PGY-1
[2025-05-21 10:31] LABS: Partial Thromboplastin Time 35.6 Seconds (22.0-36.0)
[2025-05-21] MEDS: Heparin/D5w 25K 250 ML Ivpb 25,000 UNIT/250 ML BAG 10 UNIT IV (11:05)
[2025-05-21 11:25] LABS: Thyroid Stimulating Hormone 5.31 uIU/mL (0.55-4.78)
--- NOTE | 2025-05-21 12:55 | PC.SS ---
Update: Patient receiving dialysis session today. On room air. P.O. feeds. Patient is afebrile. Patient not receiving pressor support. Dr. Landry consulting. Cardiology is consulting.
[2025-05-21 13:30] LABS: Free T4 (Free Thyroxine) 1.60 ng/dL (0.89-1.76)
[2025-05-21 15:18] LABS: Albumin, Serum 3.2 gm/dL (3.4-4.8); Anion Gap 11 (7-16); BUN/Creatinine Ratio 7 Ratio (12-20); Blood Urea Nitrogen 8 mg/dL (9-23); Calcium 7.8 mg/dL (8.3-10.6); Calcium (Corrected) 8.4 mg/dL (8.5-10.1); Carbon Dioxide 26.1 mMol/L (20.0-31.0); Chloride 104 mMol/L (98-107); Creatinine (Component) 1.2 mg/dL (0.6-1.3); Estimated Creatinine Clearance 64.7 mL/min (>60); Glucose 160 mg/dL (74-106); Osmolality,Calculated 282 (275-295); Phosphorous 5.6 mg/dL (2.4-5.1); Potassium 3.8 mMol/L (3.4-5.1); Sodium 141 mMol/L (136-145); eGFR 51 See Note
[2025-05-21 17:48] LABS: Partial Thromboplastin Time 86.0 Seconds (22.0-36.0)
[2025-05-21] MEDS: HYDROcodone/APAP 5/325 TABLET 1 TAB PO (21:03)
[2025-05-21 21:16] LABS: Albumin, Serum 3.3 gm/dL (3.4-4.8); Anion Gap 11 (7-16); BUN/Creatinine Ratio 8 Ratio (12-20); Blood Urea Nitrogen 11 mg/dL (9-23); Calcium 8.2 mg/dL (8.3-10.6); Calcium (Corrected) 8.8 mg/dL (8.5-10.1); Carbon Dioxide 23.1 mMol/L (20.0-31.0); Chloride 104 mMol/L (98-107); Creatinine (Component) 1.4 mg/dL (0.6-1.3); Estimated Creatinine Clearance 55.5 mL/min (>60); Glucose 163 mg/dL (74-106); Osmolality,Calculated 279 (275-295); Phosphorous 2.3 mg/dL (2.4-5.1); Potassium 3.8 mMol/L (3.4-5.1); Sodium 138 mMol/L (136-145); eGFR 42 See Note
[2025-05-22] VITALS (147 sets, daily range): BP systolic 49–137; BP diastolic 32–90; PULSE 77–129; RESP 9–98; TEMP 36.1–36.4; O2SAT 86–100; BMI 30.9
[2025-05-22 00:39] LABS: Partial Thromboplastin Time 48.6 Seconds (22.0-36.0)
[2025-05-22] MEDS: VASOPRESSIN IN NS IVPB 20 UNIT/100 ML BAG 9 UNIT IV ×2 (01:26→14:26)
[2025-05-22] MEDS: HEPARIN SOD INJ 5000 UNIT/ML VIAL 2000 UNIT IVP (01:27)
[2025-05-22 03:37] LABS: Basophils # (Auto) 0.0 Thou/mm3 (0.0-0.2); Basophils % (Auto) 0 % (0-2.5); Eosinophils # (Auto) 0.2 Thou/mm3 (0.0-0.5); Eosinophils % (Auto) 2 % (0-10); Hematocrit 22.6 % (36.0-46.0); Immature Granulocytes Auto 0.03 Thou/mm3 (0.00-0.00); Lymphocytes # (Auto) 2.3 Thou/mm3 (1.0-4.8); Lymphocytes % (Auto) 30 % (10-50); Mean Corpuscular HGB Conc 32.7 g/dl (31.0-37.0); Mean Corpuscular Hemoglobin 32.0 pg (25.0-35.0); Mean Corpuscular Volume 98 fL (80-100); Monocytes # (Auto) 0.6 Thou/mm3 (0.0-0.8); Monocytes % (Auto) 8 % (0-12); Neutrophils # (Auto) 4.5 Thou/mm3 (1.8-7.7); Neutrophils % (Auto) 60 % (37-80); Nucleated Red Blood Cell # 0.02 Thou/mm3 (0.00-0.00); Nucleated Red Blood Cell % 0 /100 WBC (0); Platelet Count 80 Thou/mm3 (140-440); RDW Standard Deviation 74.8 fL (36.4-46.3); Red Blood Count 2.31 Miln/mm3 (4.00-5.20); White Blood Count 7.5 Thou/mm3 (3.6-11.0)
[2025-05-22 03:38] LABS: Hemoglobin 7.4 g/dL (12.0-16.0)
[2025-05-22 04:01] LABS: Alanine Aminotransferase 22 U/L (10-49); Albumin, Serum 2.9 gm/dL (3.4-4.8); Albumin/Globulin Ratio 1.5 (1.2-2.2); Alkaline Phosphatase 110 U/L (46-116); Anion Gap 7 (7-16); Aspartate Amino Transferase 26 U/L (0-34); BUN/Creatinine Ratio 10 Ratio (12-20); Bilirubin,Total 1.0 mg/dL (0.3-1.2); Blood Urea Nitrogen < 5 mg/dL (9-23); Calcium 7.8 mg/dL (8.3-10.6); Calcium (Corrected) 8.7 mg/dL (8.5-10.1); Carbon Dioxide 28.1 mMol/L (20.0-31.0); Chloride 103 mMol/L (98-107); Creatinine (Component) 0.5 mg/dL (0.6-1.3); Estimated Creatinine Clearance 155.4 mL/min (>60); Globulin 1.9 gm/dL (2.3-3.5); Glucose 113 mg/dL (74-106); Magnesium 1.8 mg/dL (1.6-2.6); Osmolality,Calculated 273 (275-295); Potassium 3.9 mMol/L (3.4-5.1); Sodium 138 mMol/L (136-145); Total Protein 4.8 gm/dL (5.7-8.2); eGFR > 60 See Note
[2025-05-22 04:19] LABS: Phosphorous 0.8 mg/dL (2.4-5.1)
[2025-05-22] MEDS: DIVALPROEX SOD EC 125 MG TABEC 250 MG PO ×3 (05:03→21:33)
[2025-05-22] MEDS: POT PHOS 15 mMol in NS 250 ML 15 MMOL/250 ML BAG 62.5 MMOL IV (05:03)
[2025-05-22] MEDS: MIDODRINE 5 MG TABLET 10 MG PO ×4 (05:04→21:32)
[2025-05-22] MEDS: LEVOTHYROXINE SODIUM 25 MCG TABLET 50 MCG PO (05:04)
[2025-05-22] MEDS: VIT B12/Vit C/FA (Nephrovite) TABLET 1 TAB PO (08:16)
[2025-05-22] MEDS: ZINC SULFATE 220 MG CAPSULE PO (08:17)
[2025-05-22] MEDS: ASCORBIC ACID 250 MG TABLET PO ×2 (08:17→20:31)
[2025-05-22] MEDS: DOXYCYCLINE INJ 100 MG in SODIUM CHLORIDE 0.9% (POP) 100 ML IV ×2 (08:17→20:31)
[2025-05-22] MEDS: AMIODARONE HCL 200 MG TABLET PO ×2 (08:17→20:31)
[2025-05-22 08:44] LABS: Partial Thromboplastin Time 75.4 Seconds (22.0-36.0)
--- NOTE | 2025-05-22 09:33 | ESPR_ITS ---
<Statement entered by Marc Samayoa MD - 05/22/25 16:29> Senior Resident Attestation: I supervised/discussed management plan with agribusiness internship physician Dr. Beasley, and was involved in the care of this patient. I personally saw and examined the patient and discussed the assessment and plan with the entire medicine team, including my attending. I agree with the assessment and plan as documented. Patient was seen and examined at the bedside. No acute overnight events. Patient has completed CRRT 24 hours today, her blood pressure remains borderline with MAP between 60 and 65 on vasopressin 0.03, attempt to decrease is unsuccessful as her blood pressure drops. Patient was given albumin today. Will continue to monitor patient and attempt to decrease vasopressors. Patient's care was discussed with attending physician, Dr. Ervin. Marc Samayoa MD PGY-3. Documentation for date of: 05/22/25 Subjective Subjective Interval history: (Below account was synthesized primarily from chart checking as patient had already become intubated before this conventional mortgage underwriter's interview) Patient is a 64-year-old F with a PMH of cerebrovascular accident, atrial fibrillation, heart failure with reduced ejection fraction (25-30% in January 2023), chronic kidney disease (ON dialysis Friday, and Friday), and hypothyroidism who was sent from a SNF for worsening oxygen saturation. Of note, patient had apparently missed her Friday HD session. In the ED, vitals showed: BP 114/88 HR 112 RR 22 Temp 97.9 SpO2 100% on 15 L oxy mask with FiO2 100% ED Course: CBC showed WBC 15.3, hemoglobin 11.0 (MCV 113, RDW 91.3), and platelet count 201. Coagulation panel showed PT 17.2, INR 1.6, APTT 36.7. ABG of the right radial artery showed pH 7.05, pCO2 15, PaO2 229, and HCO3 4. CMP showed sodium 139, potassium 6.1, chloride 97, carbon dioxide less than 10.0, anion gap 32, BUN 27, creatinine 4.1, eGFR 12, blood glucose 42, lactic acid 22.0, LDH 337, and BNP 1945. UA showed cloudy, light orange urine with pH 5.5, 1+ protein, 1+ ketones, 3+ blood, negative nitrate, positive leukocyte esterase, RBC 82, and WBC 1329. UDS was positive for opiates (patient received fentanyl in the hospital) and negative for all else. Imagin/16 chest x-ray showed mild enlargement of the cardiac contour and prominent vascular congestion suggestive of mild heart failure but without riccardo pulmonary edema or lobar pneumonia. 05/17 EKG showed atrial fibrillation with rapid ventricular response and heart rate 111, marked left axis deviation and bundle branch block, and QTc 492. Initially, a rapid response had been called around 16:30 for worsening SpO2 of 78% and patient was switched from oxy mask to high flow nasal cannula which improved her SpO2 to 92%. At that time, Nephrology (Dr. Landry) was consulted and it was recommended that patient begin receiving inpatient HD. Patient was started on dialysis and tolerated it for 30 minutes before developing MAP of 58-61. At this point, HD was paused and over the next 40 minutes patient received IV albumin 25 mL x2 and IV Tylenol for shivering and hypothermia of 96.4 with plans to administer IV meropenem 1 gm post-HD. However, patient's BP did not improve during this reprieve and a second rapid response was called around 17:45 for worsening hypotension of 80/40 and deteriorating mentation (shifting from A&O x 2 to responding only to sternal rub). Due to the above, ICU was contacted and patient was upgraded from Telemetry to ICU for pressor support with Levophed and intubation (induction agent: IV etomidate 30 mg, muscle relaxant: IV rocuronium 100 mg) in the setting of suspected septic shock 2/2 UTI. Central femoral line has been placed successfully but arterial line was unable to be installed. Patient's person to notify, Damian Hopkins (son), was called and informed about patient's diagnosis, current acute status, and admission into the ICU. Interval History 05/18/25: No overnight events. Patient was examined at bedside; she has been extubated and is no longer being chemically sedated with IV fentanyl. With regards to labs, WBC down trended to 10.4 from 15.3, hemoglobin down trended to 8.8 from 11.0, platelet count down trended to 93 from 201, APTT up trended to 57.4 from 36.7, ABG blood pH up trended to 7.46 from 7.05, pCO2 up trended to 31 from 15, PO2 194, HCO3 up trended to 22 from 4, potassium down trended to 3.2 from 6.1, carbon dioxide up trended to 22.8 from less than 10.0, anion gap downtrended to 17 from 32, BUN down trended to 6 from 27, creatinine down trended to 1.1 from 4.1, eGFR up trended to 56 from 12, blood glucose 116, hemoglobin A1c 5.0, lactic acid down trended to 2.2 from 22.0, phosphorus 1.1, and magnesium 1.7. She is slated to receive CRRT today. Due to continued need for pressor support, patient continues to meet criteria for ICU management. 05/19/25: Overnight Levophed was titrated to 0.19 from 0.17. Was on PIRRT overnight with a total of 1.5 ultrafiltration. Input 1944 cc, output 0, balance 1944 cc. This morning patient denied any SOB, chest pain/pressure or palpitations. She stated that she feels better and is eager to get back to her facility with her . Hb decreased to 7.5 from 8.8, WBC 12.2, NA 136, K4.2, BUN <5, CR 0.7, Phos 1.2, magnesium 1.7. From telemetry patient was in A- fib overnight with heart rates in 120s?130s. Currently amiodarone infusion and heparin infusion ongoing. Will start on vasopressin and downtitrate Levophed for heart rate improvement, also sat in new parameter for acceptable MAP >60. Will also put a hold on heparin infusion due to new finding of acute blood loss anemia. Metoprolol IV as needed for HR >130. repleted with sodium phosphate 22.5 mmol IV x 1, magnesium sulfate 4 g IV x 1. 1 unit PRBC ordered 05/20/25: No overnight events. Patient was examined at bedside; she was observed to be sitting upright in her bed, eating breakfast, and receiving PIRRT. She denies having new symptoms or complaints and expressed interest in knowing when she would be able to be discharged back to [facility] so she can be with her . Patient continues to have atrial fibrillation with HR of 100s and blood pressures continue to be soft, ranging between MAP of 60-70 while receiving PO midodrine 10 mg TID, 0.01 Levophed, and 0.03 Vasopressin. Notable labs today include: WBC 12.2 (same as yesterday), hemoglobin bump to 8.2 from 7.5, platelet count drop to 82 from 111, PT 13.5, creatinine bump to 1.6 from 0.7, eGFR drop to 36 from greater than 60, blood glucose 184, and corrected calcium 8.3 (repleted with PO calcium carbonate x 1). There has finally been a development in the mystery surrounding the likely inciting event that led to patient's current ICU admission. Originally, patient's severely elevated lactic acid level of 22.0 upon admission had been tentatively attributed to hypoperfusion 2/2 septic shock from UTI but this explanation had not been very convincing as lactic acid elevations of this degree solely from septic shock without concomitant multi-organ failure would be highly unusual/atypical (usual ranges would be between 2 - 10). Other differentials had included adverse medication effects from antihypertensives or ASA toxicity but these etiologies also lacked sufficient evidence corroborating them. Upon review of patient's paper charts from [facility], it was discovered that patient had been receiving PO metformin 1000 mg BID between 05/11 - 05/16 despite her last recorded creatinine and eGFR on 05/11 being 3.1 and 16, respectively. It is very likely that patient's intake of metformin (which is absolutely contraindicated for creatinine above 1.4 or eGFR < 30), in the setting of severe renal impairment, led to severe lactic acidosis via its mechanism of increased lactate production from shunting towards anaerobic metabolism (along with poor renal clearance of metformin). Although the patient may have also been experiencing septic shock 2/2 UTI, which may have also contributed to the patient's severe lactic acidosis, the primary contributor to her presentation was most likely metformin-associated lactic acidosis ([id number]). Knowing this, [facility] was contacted and it was urged to patient's nurse that her metformin be discontinued to prevent such an event from occurring again. Her nurse has voiced her understanding and agreement, and has also requested that her documentation from [facility] have this stipulation chronicled in her Discharge Summary for extra prevention via redundancy. In terms of management updates, patient's IV amiodarone drip has been switched to PO amiodarone, IV meropenem has been discontinued, and she will continue receiving CRRT/PIRRT/HD as guided by Nephrology. In terms of blood pressure management, patient will continue receiving vasopressin, Levophed, and midodrine to maintain a goal MAP of 60 or greater and she can be downgraded to floors when she no longer requires pressor support and is clinically stable. 05/21/25: Patient's nausea and abdominal pain that started yesterday evening continued throughout the night and she received senna, Maalox, and Reglan (with Reglan seeming the most effective in treating her symptoms). Today, patient was examined at bedside; she continues to complain about nausea, abdominal pain, inability to eat, sweating and a general sense of malaise that she was not reporting yesterday. Per nurse, patient has not had a bowel movement since 05/17 before she was admitted. On physical exam, patient has generalized tenderness to palpation of the abdomen that is most severe at the midline regions and hypoactive bowel sounds on auscultation. Labs today significant for Hgb bump to 8.7 from 8.2, platelet bump to 93 from 82, creatinine bump to 0.4 from 1.0, and TSH 5.31. Abdominal X-ray showed abundant stool throughout the colon and mild small bowel ileus. Patient's blood pressure continues to be soft with most readings in the 80-100s/50-80s despite being on PO midodrine 10 mg TID, Levophed 0.07, and vasopressin 0.03. In terms of the plan, patient will continue having her blood pressure managed with the 3 aforementioned agents titrated for a goal MAP of > 60 until she can be weaned off of pressors, be started on IV doxycycline 100 mg BID in order to achieve 7 days of antibiotic coverage (has already received IV meropenem 500 mg qD from 05/17-05/20), continued on her PO amiodarone for her atrial fibrillation (currently rate uncontrolled), given lactulose (alongside colace and senna as needed) to help with BMs, restarted on heparin for DVT prophylaxis, and continued on her home levothyroxine. She will also be receiving 24 hours of CRRT today per nephrology recommendations. Due to continued need for pressor support, patient continues to meet criteria for ICU-level management. 05/22/25: No overnight events. Patient was examined at bedside; she is alert and oriented x 3 and again voices that she would like to be sent back to [facility] so that she may see her . She reports that her abdominal discomfort from yesterday has now improved significantly after she was able to have 2 large BM's with the help of mineral oil enema. Patient's soft BPs have been improving despite volume removal with CRRT and she has been weaned off of Levophed today. Her MAP is being kept above 60 successfully with PO midodrine 10 mg q6HR and IV vasopressin 0.03. The rate control of her atrial fibrillation also seems improved from yesterday with the monitor showing a HR in the 90s at the time of interview. However, patient was noted to have a low hemoglobin of 7.4 which remained stable after a repeat H&H. No active bleeding has been observed. Will continue to monitor the patient and clear her for downgrade to floors once she can maintain a MAP > 60 without pressor support. Exam Vital Signs Temp Pulse Resp BP Pulse Ox O2 Del Method O2 Flow Rate 97.4 F 115 H 15 77/63 L 100 Nasal Cannula 1 05/22/25 08:02 05/22/25 09:19 05/22/25 09:16 05/22/25 09:19 05/22/25 09:16 05/22/25 08:02 05/22/25 08:02 FiO2 40 05/18/25 08:14 Narrative Exam General: A/O x3, no acute distress, Elderly, overweight woman w/ L sided paraplegia who appears older than stated age Head: Normocephalic, atraumatic. Eyes: Pupils equal but seemingly hyporeactive to light, EOMI. Anicteric, vision grossly intact. Ears: No ear pain, no ear discharge, Hearing grossly intact. Mouth/Throat: Edentulous. Oral mucosa adequately hydrated. No obvious lesions in oropharynx. Cardiovascular: Slightly tachycardic, irregularly irregular rhythm, no murmur, no JVD or carotid bruits. +S1/S2. Right IJ TDC in place with dried blood. Right femoral line in place. Exit site clean. Respiratory: Anterior and posterior lung amaro clear to auscultation bilaterally. No increase in work of breathing or use of accessory muscles noted. Gastrointestinal: Soft, nontender, non-distended, no palpable masses. No guarding or rebound tenderness. Bowel sounds slightly hypoactive. Extremities: 4+ pitting edema to the level of the thighs bilaterally (left foot is particularly edematous and much more so than right foot), left heel wound wrapped, contracture of left hand. Pedal pulses weak but present. No clubbing. Neuro: No acute neurological deficits outside of L sided paraplegia noted. Conversant, moving all extremities. No overt cerebellar signs/incoordination. Psychiatric: Cooperative, appropriate affect. Skin: Multiple ecchymoses noted on bilateral upper limbs (with more on L than R) and around tunneled dialysis catheter. Flaky skin noted at forehead and lower extremities. Objective Labs 05/22/25 13:33 05/22/25 15:12 Labs: Laboratory Results - last 24 hr 05/19/25 05/21/25 05/21/25 05:48 09:35 09:53 WBC RBC Hgb Hct MCV MCH MCHC RDW Std Deviation Plt Count Neut % (Auto) Lymph % (Auto) Crowley % (Auto) Eos % (Auto) Baso % (Auto) Neut # (Auto) Lymph # (Auto) Crowley # (Auto) Eos # (Auto) Baso # (Auto) Immature Gran # (Auto) Absolute Nucleated RBC Immature Gran % Nucleated RBC % APTT 35.6 D Sodium 137 Potassium 4.1 Chloride 102 Carbon Dioxide 27.1 Anion Gap 8 BUN 8 L Creatinine 1.0 Estim Creat Clear Calc 77.7 eGFR > 60 BUN/Creatinine Ratio 8 L Glucose 152 H Calculated Osmolality 275 Calcium 8.0 L Corrected Calcium 8.7 Phosphorus 2.5 Magnesium Total Bilirubin AST ALT Alkaline Phosphatase Total Protein Albumin 3.1 L Globulin Albumin/Globulin Ratio TSH 5.31 H D Free T4 1.60 Crossmatch See Detail 05/21/25 05/21/25 05/21/25 14:57 17:01 20:43 WBC RBC Hgb Hct MCV MCH MCHC RDW Std Deviation Plt Count Neut % (Auto) Lymph % (Auto) Crowley % (Auto) Eos % (Auto) Baso % (Auto) Neut # (Auto) Lymph # (Auto) Crowley # (Auto) Eos # (Auto) Baso # (Auto) Immature Gran # (Auto) Absolute Nucleated RBC Immature Gran % Nucleated RBC % APTT 86.0 H D Sodium 141 138 Potassium 3.8 3.8 Chloride 104 104 Carbon Dioxide 26.1 23.1 Anion Gap 11 11 BUN 8 L 11 Creatinine 1.2 1.4 H Estim Creat Clear Calc 64.7 55.5 L eGFR 51 L 42 L BUN/Creatinine Ratio 7 L 8 L Glucose 160 H 163 H Calculated Osmolality 282 279 Calcium 7.8 L 8.2 L Corrected Calcium 8.4 L 8.8 Phosphorus 5.6 H 2.3 L Magnesium Total Bilirubin AST ALT Alkaline Phosphatase Total Protein Albumin 3.2 L 3.3 L Globulin Albumin/Globulin Ratio TSH Free T4 Crossmatch 05/22/25 05/22/25 05/22/25 00:12 03:11 07:30 WBC 7.5 RBC 2.31 L Hgb 7.4 L Hct 22.6 L MCV 98 MCH 32.0 MCHC 32.7 RDW Std Deviation 74.8 H Plt Count 80 L Neut % (Auto) 60 Lymph % (Auto) 30 Crowley % (Auto) 8 Eos % (Auto) 2 Baso % (Auto) 0 Neut # (Auto) 4.5 Lymph # (Auto) 2.3 Crowley # (Auto) 0.6 Eos # (Auto) 0.2 Baso # (Auto) 0.0 Immature Gran # (Auto) 0.03 H Absolute Nucleated RBC 0.02 H Immature Gran % 0 Nucleated RBC % 0 APTT 48.6 H D 75.4 H D Sodium 138 Potassium 3.9 Chloride 103 Carbon Dioxide 28.1 Anion Gap 7 BUN < 5 L Creatinine 0.5 L D Estim Creat Clear Calc 155.4 eGFR > 60 BUN/Creatinine Ratio 10 L Glucose 113 H D Calculated Osmolality 273 L Calcium 7.8 L Corrected Calcium 8.7 Phosphorus 0.8 L* Magnesium 1.8 Total Bilirubin 1.0 AST 26 ALT 22 Alkaline Phosphatase 110 Total Protein 4.8 L Albumin 2.9 L Globulin 1.9 L Albumin/Globulin Ratio 1.5 TSH Free T4 Crossmatch ABG Interpretation ABG results: 05/17/25 05/17/25 05/17/25 15:40 18:01 19:47 ABG pH 7.05 L* 7.11 L* 7.10 L* ABG pCO2 15 L* 24 L 28 L ABG pO2 229 H 241 H 441 H D ABG HCO3 4 L* 8 L* 9 L* ABG O2 Saturation 100 H 101 H 101 H ABG Base Excess -24 L -20 L -20 L 05/17/25 05/18/25 22:05 04:57 ABG pH 7.27 L D 7.46 H D ABG pCO2 33 31 L ABG pO2 208 H D 194 H ABG HCO3 15 L 22 ABG O2 Saturation 101 H 101 H ABG Base Excess -11 L -1 Quality Measures Quality Measures none Assessment & Plan Assessment Current Active Medications: Generic Name Dose Route Start Last Admin Trade Name Freq PRN Reason Stop Dose Admin Acetaminophen 650 mg 05/20/25 11:14 05/20/25 11:22 Acetaminophen 325 Mg Tablet PO 06/16/25 15:47 650 mg Q6H PRN Administration PAIN 1-10 OR FEVER > 100.4 Amiodarone HCl 200 mg 05/19/25 21:00 05/22/25 08:17 Amiodarone Hcl 200 Mg Tablet PO 06/18/25 20:59 200 mg BID RIANNA Administration Ascorbic Acid 250 mg 05/20/25 21:00 05/22/25 08:17 Ascorbic Acid 250 Mg Tablet PO 06/19/25 20:59 250 mg BID RIANNA Administration Dextrose 25 ml 05/17/25 16:04 Dextrose 50%-Water Inj 50 Ml Syringe IV 06/16/25 16:03 Q15MIN PRN BG 50-70 responsive npo pt Dextrose 50 ml 05/17/25 16:04 Dextrose 50%-Water Inj 50 Ml Syringe IV 06/16/25 16:03 Q15MIN PRN BG <50 OR BG <70 & pt unresponsive Divalproex Sodium 250 mg 05/17/25 22:00 05/22/25 05:03 Divalproex Sod Ec 125 Mg Tabec PO 06/16/25 21:59 250 mg TID RIANNA Administration Epoetin Jemal 10,000 unit 05/19/25 16:45 05/19/25 17:25 Epoetin Jemal-Epbx Inj 10,000 Unit/Ml Vial (Non-Esrd) SC 06/18/25 16:44 10,000 unit MoTh RIANNA Administration Glucagon 1 mg 05/17/25 16:04 Glucagon Inj 1 Mg Vial IM Q15MIN PRN BG <70, and no IV access Heparin Sodium (Porcine) 3,300 unit 05/17/25 16:12 05/20/25 17:52 Heparin Sod Inj 1000 Unit/Ml Vial 10 Ml INDWELLCAT 05/31/25 16:11 3,300 unit PRN PRN Administration DIALYSIS Albumin Human 25 gm in 100 mls @ 100 mls/min 05/17/25 13:44 05/20/25 07:39 Albuminar-25 Ivpb IV Infused PRN PRN Infusion DIALYSIS Norepinephrine/Dextrose 8 mg in 250 mls @ 9.521 mls/hr 05/19/25 07:51 05/21/25 10:51 Levophed In D5w 8mg/250ml IV 06/16/25 17:25 0 mcg/kg/min .Q24H PRN 0 mls/hr PER PROTOCOL Titration Protocol 0.05 MCG/KG/MIN Vasopressin/Sodium Chloride 20 unit in 100 mls @ 9 mls/hr 05/19/25 08:41 05/22/25 08:46 Vasostrict/Ns Ivpb IV 06/18/25 08:40 0.03 unit/min .Q11H7M PRN 9 mls/hr PER PROTOCOL Titration Protocol 0.03 UNIT/MIN Heparin Sodium/Dextrose 25,000 unit in 250 mls @ 10 mls/hr 05/21/25 10:15 05/22/25 09:23 Heparin In D5w Ivpb IV 06/04/25 10:14 9.615 units/kg/hr .Q24H RIANNA 10 mls/hr Protocol Titration 9.615 UNITS/KG/HR Doxycycline Hyclate 100 mg/ 100 mls @ 100 mls/hr 05/21/25 10:00 05/22/25 08:17 Sodium Chloride IV 05/28/25 09:59 100 mls/hr BID RIANNA Administration Sodium Phosphate 22.5 mmol/ 507.5 mls @ 82.778 mls/hr 05/22/25 04:24 05/22/25 04:43 Sodium Chloride IV 05/22/25 10:31 Not Given X1 ONE Levothyroxine Sodium 50 mcg 05/18/25 06:00 05/22/25 05:04 Levothyroxine Sodium 25 Mcg Tablet PO 06/17/25 05:59 50 mcg ACBR RIANNA Administration Lorazepam 1 mg 05/21/25 18:37 05/21/25 21:10 Lorazepam 0.5 Mg Tablet PO 05/26/25 18:36 1 mg HS PRN Administration INSOMNIA Protocol Melatonin 3 mg 05/17/25 16:14 05/20/25 21:30 Melatonin 3 Mg Tablet PO 3 mg HS PRN Administration sleep Protocol Metoprolol Tartrate 2.5 mg 05/19/25 07:50 Metoprolol Tartrate Inj 1 Mg/Ml Amp 5 Ml IVP 06/18/25 07:59 Q8HR PRN HR >130 Midodrine 10 mg 05/20/25 14:00 05/22/25 05:04 Midodrine 5 Mg Tablet PO 06/18/25 13:59 10 mg TID RIANNA Administration Multivitamins 1 tab 05/19/25 09:23 05/20/25 08:54 Multivitamins Tablet PO 06/18/25 09:14 1 tab On Hold: 05/20/25 15:49 QDAY RIANNA Administration Comment: NEPHROVITE ACTIVE Ondansetron HCl 4 mg 05/20/25 11:14 05/21/25 09:30 Ondansetron Inj 2 Mg/Ml Inj 2 Ml IVP 06/19/25 11:13 4 mg Q8HR PRN Administration NAUSEA OR VOMITING Protocol Pantoprazole Sodium 40 mg 05/18/25 09:00 05/22/25 08:17 Pantoprazole Inj 40 Mg Vial IVP 06/17/25 08:59 40 mg QDAY RIANNA Administration Pharmacy Consult 1 each 05/18/25 08:27 Pharmacy Renal Dose Adjustment 1 Ea XX 06/17/25 08:26 PRN PRN CONSULT Sennosides 1 tab 05/21/25 07:56 05/21/25 08:10 Senna/Docusate Sod 1 Tab Tablet PO 06/20/25 07:55 1 tab QDAY PRN Administration CONSTIPATION Protocol Sodium Chloride 3 ml 05/17/25 13:24 05/17/25 13:36 Sodium Chloride Rt Cristina 0.9% 3 Ml Nebu INH 06/16/25 13:23 3 ml PRN PRN Administration SOLN Vitamin B Complex/Vit C/Folic Acid 1 tab 05/20/25 15:45 05/22/25 08:16 Vit B12/Vit C/Fa (Nephrovite) Tablet PO 06/19/25 15:44 1 tab QDAY RIANNA Administration Zinc Sulfate 220 mg 05/20/25 15:45 05/22/25 08:17 Zinc Sulfate 220 Mg Capsule PO 06/03/25 15:44 220 mg QDAY RIANNA Administration Plan Patient is a 64-year-old F with a PMH of cerebrovascular accident, atrial fibrillation, heart failure with reduced ejection fraction (25-30% in January 2023), chronic kidney disease (ON dialysis Friday, and Friday), and hypothyroidism who was sent from a SNF for worsening oxygen saturation. Patient received inpatient HD due to multiple metabolic abnormalities but developed pervasive and refractory hypotension during the session. No overnight events. Patient was examined at bedside; she is alert and oriented x 3 and again voices that she would like to be sent back to [facility] so that she may see her . She reports that her abdominal discomfort from yesterday has now improved significantly after she was able to have 2 large BM's with the help of mineral oil enema. Patient's soft BPs have been improving despite volume removal with CRRT and she has been weaned off of Levophed today. Her MAP is being kept above 60 successfully with PO midodrine 10 mg q6HR and IV vasopressin 0.03. The rate control of her atrial fibrillation also seems improved from yesterday with the monitor showing a HR in the 90s at the time of interview. However, patient was noted to have a low hemoglobin of 7.4 which remained stable after a repeat H&H. No active bleeding has been observed. Will continue to monitor the patient and clear her for downgrade to floors once she can maintain a MAP > 60 without pressor support. NEURO #History of CVA w/ residual L-sided weakness Dx: -05/01/[address] w/o contrast showed large old infarct of R MCA and smaller old infarct of R cerebellar hemisphere which remains unchanged from similar findings on 09/10/15 Rx: -May consider antiplatelet therapy -May consider restarting patient's home PO AtorvaliQ 20 mg qD RRx: -Chronic condition without current acute ramifications CARDIO Undifferentiated shock, requiring vasopressors During dialysis, patient developed a MAP of 58-61 and acute hypotension of 80/40 that was refractory to IV albumin and required pressor support (in the setting of severe lactic acidosis as well) Originally, shock was thought to be distributive in nature 2/2 septic inflammatory vasodilation but this seems less likely to be the primary contributor of hypotension now due to elevated SVR on NICOM On passive leg raise, SVI and CI mildly increased, indicating some level of fluid responsiveness Favor cardiogenic etiology as primary component of shock at this time with perhaps mixed contribution from distributive etiology DDx: cardiogenic shock (EF 15-20%), hypovolemic shock, distributive shock, obstructive shock Dx: -05/21 NICOM readings: SVR 1345, SVI 23, CI 2.4 -05/21 NICOM readings (PLR): SVR 1345, SVI 27, CI 2.8 Rx: -Continue PO midodrine 10 mg TID to maintain MAP > 60 -If refractory to midodrine, continue IV vasopressin titrated to maintain MAP > 60 (with goal of weaning patient off of Levophed) -If refractory to vasopressin, continue IV Levophed titrated to maintain MAP > 60 RRx: ? Patient's pressor needs have decreased despite volume removal with CRRT and she has been able to maintain MAP > 60 on just PO midodrine 10 mg q6HR and IV vasopressin 0.03 (no Levophed) #Atrial fibrillation with RVR Per Cardiology note, patient has history of atrial fibrillation on Eliquis and previously took metoprolol XL 50 mg qD for rate control During previous hospitalization, patient experienced bradycardia and hypotension with metoprolol and was started on PO amiodarone 200 mg BID Currently suspect that atrial fibrillation with RVR is 2/2 severe lactic acidosis (LA 22.0) which itself was most likely due to metformin intake in the setting of severe renal impairment CHADSVASC score 4, 4.8% stroke risk per year HASBLED 3 Dx: -05/17 EKG showed atrial fibrillation with rapid ventricular response and heart rate 111, marked left axis deviation and bundle branch block, and QTc 492 -Other pertinent labs: (upon admission) lactic acid 22.0, potassium 6.1, CO2 less than 10.0, anion gap 32, BUN 27, creatinine 4.1, blood glucose 42, LDH 337, BNP 1945, ABG blood pH 7.05, HCO3 4 Rx: -Continue PO amiodarone 200 mg BID -Continue heparin drip @ 9.615 units/kg/hr -Continuous cardiac monitoring -Maintain K>4 and Mg>2 RRx: -Patient continues to have atrial fibrillation today but HR seems better controlled in the 90s #HFrEF (EF 15-20%, 04/2025) #Dilated cardiomyopathy Cardiology currently has low suspicion for HFrEF exacerbation Dx: -2022 echocardiogram showed dilated cardiomyopathy, severe global hypokinesis with estimated EF of 25-30%, normal RV size, mildly dilated LA, and mild MR -04/2025 echocardiogram shows dilated cardiomyopathy, moderately dilated LV, severe global hypokinesis and severe systolic dysfunction with estimated EF of 15-20%. It also showed normal RV size, reduced systolic function, RA estimated RVSP 45 mmHg, moderate pulmonary hypertension, moderate MR and mild TR, trace to mild AI, severely dilated LA, severely dilated RA, and mildly dilated ascending body measuring 3.9 cm -BNP 1944, Troponin I WNL Rx: -Per cardiology recommendations, plan to initiate GDMT once blood pressure can tolerate it but avoid SGLT-2 inhibitors due to patient's ESRD on HD status -Strict I's & O's and daily weights -Outpatient follow-up with cardiology for further management (may need defibrillator if HFrEF symptoms are refractory to GDMT for over 3 months and cardiac catheterization to rule out CAD as a cause of dilated cardiomyopathy) RRx: -Based on 05/21 NICOM, patient is possibly mildly hypovolemic PULM No acute problems GI #Abdominal pain (improving) Patient's nausea and abdominal pain that started in the evening of 05/20 continued throughout the night and she received senna, Maalox, and Reglan (with Reglan seeming the most effective in treating her symptoms). Importantly, she had not had a bowel movement since 05/17. Now greatly improved on 05/22 after patient had 2 large BM's yesterday with the assistance of mineral oil enema, lactulose, colace, and senna. DDx: gastroparesis, obstructive etiologies Dx: -05/21 abdominal X-ray showed abundant stool throughout the colon and mild small bowel ileus. -On physical exam, patient has generalized tenderness to palpation of the abdomen that is most severe at the midline regions and hypoactive bowel sounds on auscultation. Rx: -Lactulose -Colace, senna prn -Zofran prn -Hold PO intake NEPHRO #ESRD on HD (//Fri), missed HD session #Hypophosphatemia Dx: -05/17 ABG of the right radial artery showed pH 7.05, pCO2 15, PaO2 229, and HCO3 4. -Today, creatinine drop to 0.6 from 0.9 Rx: -Nephrology, Dr Landry consulted. Appreciate recommendations -CRRT while patient remains hypotensive -Plan to resume HD once hemodynamically stable #Metformin-associated lactic acidosis (resolved) On presentation, patient had a lactic acid level of 22 which has now down- trended to 2.2. Patient's severely elevated lactic acid level of 22.0 upon admission had been tentatively attributed to hypoperfusion 2/2 septic shock from UTI but this explanation had not been very convincing as lactic acid elevations of this degree solely from septic shock without concomitant multi-organ failure would be highly unusual/atypical (usual ranges would be between 2 - 10). Per [facility] paper charts, patient had been receiving PO metformin 1000 mg BID between 05/11 - 05/16 despite her last recorded creatinine and eGFR on 05/11 being 3.1 and 16, respectively. It is very likely that patient's intake of metformin (which is absolutely contraindicated for creatinine above 1.4 or eGFR < 30), in the setting of severe renal impairment, led to severe lactic acidosis via its mechanism of increased lactate production from shunting towards anaerobic metabolism (along with poor renal clearance of metformin). DDx: minor contributions outside of [place] may include a combination of etiologies including tissue hypoperfusion 2/2 septic shock and/or cardiogenic shock, hypoglycemia-induced anaerobic metabolism, ESBL UTI, or bacteremia Dx: -ABG of the right radial artery showed pH 7.05, pCO2 15, PaO2 229, and HCO3 4. -Lactic acidosis has now down-trended from 22.0 to 2.2 _ ____ Rx: -Called [facility] and emphasized the importance of discontinuing patient's metformin PLEASE TAKE EXTRA CARE TO DOCUMENT THAT PATIENT'S METFORMIN BE DISCONTINUED ON DISCHARGE SUMMARY _ ____ HEME #Acute blood loss anemia #Chronic normocytic anemia Today, patient's hemoglobin dropped to 7.4 from 8.7, with repeat H&H showing hemoglobin of 7.4 again Heparin was resumed on 05/21 Dx: -05/19 iron panel: iron 17, TIBC 163, iron sat 10, unsat iron binding 146 (likely mixed NELDA + ACD) -Type and screen completed Rx: -Transfuse with pRBC if hemoglobin < 7 RRx: -Currently, no active signs of bleeding #Thrombocytopenia Patient's platelet count had been above 200 on 05/17 admission but have now downtrended to 80 today (05/22) However, it is possible that the 05/17 platelet count was artificially high due to hemoconcentration since every platelet count after that hovered around 80 - 110 Unclear etiology, but appears stable Rx: -Continue to monitor CBC Leukocytosis (resolved) DDx: UTI, reactive Dx: -05/21, WBC down-trended to 10.8 from 12.2 Rx: - Monitor for signs of infection and CBC ENDO #Hypothyroidism Dx: -TSH 5.31 Rx: -Continue home levothyroxine (dose may need to be increased) ID Complicated UTI Sterile pyuria Of note, patient was apparently discharged on 05/11/25 for nausea/vomiting/abdominal pain 2/2 septic shock 2/2 E.coli UTI and also has PMH of ESBL UTI Although patient had a negative urine culture, results and continue antibiotics as she recently completed a course and this may have contributed to her negative result. Dx: -UA showed cloudy, light orange urine with pH 5.5, 1+ protein, 1+ ketones, 3+ blood, negative nitrate, positive leukocyte esterase, RBC 82, and WBC 1329. -Urine culture showed contamination, final -Blood cultures showed no bacterial growth x 48 hours, preliminary -Patient denies having any urinary symptoms Rx: -Continue IV doxycycline 100 mg BID [05/21--], plan to continue until last dose on 05/24 -Discontinued IV meropenem 500 mg qD [05/17?05/20] RRx: -Patient has not complained of any urinary symptoms MSK #No active problems SKIN #Decubitus ulcer on L LE Present on admission Rx: -Wound care as needed Disposition: Requires continued ICU management due to continued need for IV vasopressin to maintain MAP > 60 DVT prophylaxis: Heparin GI prophylaxis: Protonix Diet: Renal Turner: Present Lines: Peripheral IV, Central IV Antibiotics: Doxycycline CODE STATUS: FULL Plan of care discussed with Attending Dr. Arcadio Beasley, DO Internal Medicine, PGY-1
[2025-05-22 09:47] LABS: Albumin, Serum 2.9 gm/dL (3.4-4.8); Anion Gap 6 (7-16); BUN/Creatinine Ratio 17 Ratio (12-20); Blood Urea Nitrogen < 5 mg/dL (9-23); Calcium 7.8 mg/dL (8.3-10.6); Calcium (Corrected) 8.7 mg/dL (8.5-10.1); Carbon Dioxide 27.9 mMol/L (20.0-31.0); Chloride 104 mMol/L (98-107); Creatinine (Component) 0.3 mg/dL (0.6-1.3); Estimated Creatinine Clearance 260.0 mL/min (>60); Glucose 167 mg/dL (74-106); Osmolality,Calculated 276 (275-295); Phosphorous 1.0 mg/dL (2.4-5.1); Potassium 4.1 mMol/L (3.4-5.1); Sodium 138 mMol/L (136-145); eGFR > 60 See Note
--- NOTE | 2025-05-22 09:51 | ESPR_ITS ---
Documentation for date of: 05/22/25 Subjective Subjective Interval history: This is a 64-year-old female admitted to the ICU with septic shock. pt was brought to the ICU on 05/17. She is an ESRD pt on HD and had missed her HD that day. She was found to have a severe AGMA with LA that was felt to be 2/2 metformin. pt underwent partial dialysis on arrival prior to RR being called. she had high vasopressor requirements and was started on 2 vasopressors. She has been seen by nephrology and cardiology. There is a h/o HFrEF with most recent EF being 15-20%. Currently she is AAOx3 and interactive. She c/o nausea and abd discomfort. She is afebrile with no UOP. 05/22- no acute overnight events, tolerated CRRT, has had BM x2 with resolution of her abdominal discomfort and nausea, AAOx3, off of levophed today Critical Care Note Critical care time (min.): 40 Exam Vital Signs Temp Pulse Resp BP Pulse Ox O2 Del Method O2 Flow Rate 97.4 F 115 H 13 89/67 L 100 Nasal Cannula 1 05/22/25 08:02 05/22/25 09:30 05/22/25 09:30 05/22/25 09:30 05/22/25 09:30 05/22/25 08:02 05/22/25 08:02 FiO2 40 05/18/25 08:14 Narrative Exam Gen- NAD, AAOx3, lying tilted in bed HEENT- NC/AT, mucosa hydrated, poor dentition, sclera anicteric, EOMI Chest- LCTAB, HRIR, no increase in WOB, Abd- s/nt/bs+ Ext- edema 4+ pitting b/l LE to level of thighs, edema UE, bruising L>R, Drips vaso Physical Exam Completion Physical Exam Complete?: Yes Objective - Utilities Estim[employer] Labs 05/22/25 03:11 05/22/25 03:11 Labs: Laboratory Results - last 24 hr 05/19/25 05/21/25 05/21/25 05:48 09:35 09:53 WBC RBC Hgb Hct MCV MCH MCHC RDW Std Deviation Plt Count Neut % (Auto) Lymph % (Auto) [place]er % (Auto) Eos % (Auto) Baso % (Auto) Neut # (Auto) Lymph # (Auto) [place] # (Auto) Eos # (Auto) Baso # (Auto) Immature Gran # (Auto) Absolute Nucleated RBC Immature Gran % Nucleated RBC % APTT 35.6 D Sodium 137 Potassium 4.1 Chloride 102 Carbon Dioxide 27.1 Anion Gap 8 BUN 8 L Creatinine 1.0 Estim Creat Clear Calc 77.7 eGFR > 60 BUN/Creatinine Ratio 8 L Glucose 152 H Calculated Osmolality 275 Calcium 8.0 L Corrected Calcium 8.7 Phosphorus 2.5 Magnesium Total Bilirubin AST ALT Alkaline Phosphatase Total Protein Albumin 3.1 L Globulin Albumin/Globulin Ratio TSH 5.31 H D Free T4 1.60 Crossmatch See Detail 05/21/25 05/21/25 05/21/25 14:57 17:01 20:43 WBC RBC Hgb Hct MCV MCH MCHC RDW Std Deviation Plt Count Neut % (Auto) Lymph % (Auto) [place] % (Auto) Eos % (Auto) Baso % (Auto) Neut # (Auto) Lymph # (Auto) [place] # (Auto) Eos # (Auto) Baso # (Auto) Immature Gran # (Auto) Absolute Nucleated RBC Immature Gran % Nucleated RBC % APTT 86.0 H D Sodium 141 138 Potassium 3.8 3.8 Chloride 104 104 Carbon Dioxide 26.1 23.1 Anion Gap 11 11 BUN 8 L 11 Creatinine 1.2 1.4 H Estim Creat Clear Calc 64.7 55.5 L eGFR 51 L 42 L BUN/Creatinine Ratio 7 L 8 L Glucose 160 H 163 H Calculated Osmolality 282 279 Calcium 7.8 L 8.2 L Corrected Calcium 8.4 L 8.8 Phosphorus 5.6 H 2.3 L Magnesium Total Bilirubin AST ALT Alkaline Phosphatase Total Protein Albumin 3.2 L 3.3 L Globulin Albumin/Globulin Ratio TSH Free T4 Crossmatch 05/22/25 05/22/25 05/22/25 00:12 03:11 07:30 WBC 7.5 RBC 2.31 L Hgb 7.4 L Hct 22.6 L MCV 98 MCH 32.0 MCHC 32.7 RDW Std Deviation 74.8 H Plt Count 80 L Neut % (Auto) 60 Lymph % (Auto) 30 [place]agoner % (Auto) 8 Eos % (Auto) 2 Baso % (Auto) 0 Neut # (Auto) 4.5 Lymph # (Auto) 2.3 [place]er # (Auto) 0.6 Eos # (Auto) 0.2 Baso # (Auto) 0.0 Immature Gran # (Auto) 0.03 H Absolute Nucleated RBC 0.02 H Immature Gran % 0 Nucleated RBC % 0 APTT 48.6 H D 75.4 H D Sodium 138 Potassium 3.9 Chloride 103 Carbon Dioxide 28.1 Anion Gap 7 BUN < 5 L Creatinine 0.5 L D Estim Creat Clear Calc 155.4 eGFR > 60 BUN/Creatinine Ratio 10 L Glucose 113 H D Calculated Osmolality 273 L Calcium 7.8 L Corrected Calcium 8.7 Phosphorus 0.8 L* Magnesium 1.8 Total Bilirubin 1.0 AST 26 ALT 22 Alkaline Phosphatase 110 Total Protein 4.8 L Albumin 2.9 L Globulin 1.9 L Albumin/Globulin Ratio 1.5 TSH Free T4 Crossmatch Assessment & Plan Additional Plan Additional Plan: In brief this is a 64yo F admitted to the ICU for shock initially felt to be 2/2 severe acidosis due to metformin toxicity and 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 h/o CVA with residual L weakness CV HFrEF- last EF 15% - seen by cardiology - will need further workup once stable - unable to tolerate BB or ACEI/ARB at this time - noted to have a dilated cardiomyopathy Shock- unclear etiology - non invasive hemodynamics obtained and suggest a mixed etiology with components of cardiogenic and distributive - has had some volume removal with CRRT and pressor needs are decreasing - off levophed today - started on midodrine 10mg q8 earlier in hospital stay-> increase to q6 - all cx are NTD, will complete 7 day course for poss underlying sepsis -> UA did have abundant WBC and L staghorn calculi present. started on abx 05/17 - LA has trended back down -> 2/2 metformin toxicity Afib- currently rate uncontrolled - on amio - improved rate to <100 today Resp stable Renal ESRD on HD- followed by nephrology and for CRRT today Hypophos- being repleted GI Abd pain- pt has not had BM since arrival - given lactulose today - colace, senna prn Nausea- prn zofran, hold PO intake for now Hypoalbuminemia Endo Hypothyroid- cont home levothyroxine - TSH slightly elevated, may need adjustment in home dose Heme DVT proph- heparin Anemia- had one drop earlier in her hospital stay - no active bleeding noted - some drop in H/h noted today, fu on repeat this afternoon - labs show iron def and chronic dz Thrombocytopenia- drop from arrival and baseline - unclear etiology however appears stable ID Decubitus ulcer on L LE- POA and will fu with wound care case d/w ICU team labs, imaging, records reviewed ~40ccmin required for eval, exam, review, intervention, discussion and formulation of POC for this critically ill pt with shock on vasopressors Provider Notation Provider Notation: Although this document has been carefully reviewed, there may still be some phonetic and other typographical errors. These errors are purely grammatical due to imperfections in the software program and should not be construed in any way to compromise the substance of the patient's medical care during this visit. Thank you for the opportunity and privilege in assisting you with this patient's care and management.
[2025-05-22] MEDS: HEPARIN SOD INJ 1000 UNIT/ML VIAL 10 ML 3300 UNIT INDWELLCAT (10:12)
--- NOTE | 2025-05-22 10:26 | PD.RESPRO ---
Documentation for date of: 05/22/25 Subjective Subjective Interval history: Patient was seen and examined at bedside. Her blood pressure continued to improve and she has been weaned off norepinephrine, patient only on minimal dose of vasopressin 0.1 mg and midodrine. Her heart rate continued to be in A-fib with RVR heart rate range between 100 and 125. Patient denied any chest pain today, she was tolerating oral feeds well. It was found that the patient was on metformin and that was the reason for her severe lactic acidosis. Patient continued to be on heparin and amiodarone drip for A-fib. Hemoglobin dropped to 7.6 potassium level today is 3.9, magnesium is 1.8, recommended to replete Exam Vital Signs Temp Pulse Resp BP Pulse Ox O2 Del Method O2 Flow Rate 97.4 F 100 13 71/44 L 100 Nasal Cannula 1 05/22/25 08:02 05/22/25 10:00 05/22/25 09:30 05/22/25 10:00 05/22/25 09:30 05/22/25 08:02 05/22/25 08:02 FiO2 40 05/18/25 08:14 Narrative Exam GENERAL: Sleepy and oriented x3 appears older than stated age, having bedside CRRT HEENT: NC/AT, mucous membranes dry, bilateral sclera anicteric CARDIOVASCULAR: irregular rhythm, tachycardic, no murmurs able to be appreciated, R IJ TDC in place with dried blood, R femoral line in place PULMONARY: distant breath sounds bilaterally, no rales/rhonchi/wheezes ABDOMINAL: soft, non-tender, non-distended, no rebound/guarding, bowel sounds present EXTREMITIES: 3+ pitting edema of BLE L>R, L heel wound wrapped, contracture of L hand, 0/5 strength in LUE and LLE, 4/5 strength RUE and RLE SKIN: LLE wound NEURO: alert, following commands Objective Labs 05/22/25 13:33 05/22/25 15:12 Labs: Laboratory Results - last 24 hr 05/19/25 05/21/25 05/21/25 05:48 09:53 14:57 WBC RBC Hgb Hct MCV MCH MCHC RDW Std Deviation Plt Count Neut % (Auto) Lymph % (Auto) [place] % (Auto) Eos % (Auto) Baso % (Auto) Neut # (Auto) Lymph # (Auto) [place] # (Auto) Eos # (Auto) Baso # (Auto) Immature Gran # (Auto) Absolute Nucleated RBC Immature Gran % Nucleated RBC % APTT 35.6 D Sodium 141 Potassium 3.8 Chloride 104 Carbon Dioxide 26.1 Anion Gap 11 BUN 8 L Creatinine 1.2 Estim Creat Clear Calc 64.7 eGFR 51 L BUN/Creatinine Ratio 7 L Glucose 160 H Calculated Osmolality 282 Calcium 7.8 L Corrected Calcium 8.4 L Phosphorus 5.6 H Magnesium Total Bilirubin AST ALT Alkaline Phosphatase Total Protein Albumin 3.2 L Globulin Albumin/Globulin Ratio TSH 5.31 H D Free T4 1.60 Crossmatch See Detail 05/21/25 05/21/25 05/22/25 17:01 20:43 00:12 WBC RBC Hgb Hct MCV MCH MCHC RDW Std Deviation Plt Count Neut % (Auto) Lymph % (Auto) [place] % (Auto) Eos % (Auto) Baso % (Auto) Neut # (Auto) Lymph # (Auto) [place] # (Auto) Eos # (Auto) Baso # (Auto) Immature Gran # (Auto) Absolute Nucleated RBC Immature Gran % Nucleated RBC % APTT 86.0 H D 48.6 H D Sodium 138 Potassium 3.8 Chloride 104 Carbon Dioxide 23.1 Anion Gap 11 BUN 11 Creatinine 1.4 H Estim Creat Clear Calc 55.5 L eGFR 42 L BUN/Creatinine Ratio 8 L Glucose 163 H Calculated Osmolality 279 Calcium 8.2 L Corrected Calcium 8.8 Phosphorus 2.3 L Magnesium Total Bilirubin AST ALT Alkaline Phosphatase Total Protein Albumin 3.3 L Globulin Albumin/Globulin Ratio TSH Free T4 Crossmatch 05/22/25 05/22/25 05/22/25 03:11 07:30 09:00 WBC 7.5 RBC 2.31 L Hgb 7.4 L Hct 22.6 L MCV 98 MCH 32.0 MCHC 32.7 RDW Std Deviation 74.8 H Plt Count 80 L Neut % (Auto) 60 Lymph % (Auto) 30 [place] % (Auto) 8 Eos % (Auto) 2 Baso % (Auto) 0 Neut # (Auto) 4.5 Lymph # (Auto) 2.3 [place] # (Auto) 0.6 Eos # (Auto) 0.2 Baso # (Auto) 0.0 Immature Gran # (Auto) 0.03 H Absolute Nucleated RBC 0.02 H Immature Gran % 0 Nucleated RBC % 0 APTT 75.4 H D Sodium 138 138 Potassium 3.9 4.1 Chloride 103 104 Carbon Dioxide 28.1 27.9 Anion Gap 7 6 L BUN < 5 L < 5 L Creatinine 0.5 L D 0.3 L Estim Creat Clear Calc 155.4 260.0 eGFR > 60 > 60 BUN/Creatinine Ratio 10 L 17 Glucose 113 H D 167 H D Calculated Osmolality 273 L 276 Calcium 7.8 L 7.8 L Corrected Calcium 8.7 8.7 Phosphorus 0.8 L* 1.0 L Magnesium 1.8 Total Bilirubin 1.0 AST 26 ALT 22 Alkaline Phosphatase 110 Total Protein 4.8 L Albumin 2.9 L 2.9 L Globulin 1.9 L Albumin/Globulin Ratio 1.5 TSH Free T4 Crossmatch ABG Interpretation ABG results: 05/17/25 05/17/25 05/17/25 15:40 18:01 19:47 ABG pH 7.05 L* 7.11 L* 7.10 L* ABG pCO2 15 L* 24 L 28 L ABG pO2 229 H 241 H 441 H D ABG HCO3 4 L* 8 L* 9 L* ABG O2 Saturation 100 H 101 H 101 H ABG Base Excess -24 L -20 L -20 L 05/17/25 05/18/25 22:05 04:57 ABG pH 7.27 L D 7.46 H D ABG pCO2 33 31 L ABG pO2 208 H D 194 H ABG HCO3 15 L 22 ABG O2 Saturation 101 H 101 H ABG Base Excess -11 L -1 Quality Measures Quality Measures none Assessment & Plan Assessment Current Active Medications: Generic Name Dose Route Start Last Admin Trade Name Freq PRN Reason Stop Dose Admin Acetaminophen 650 mg 05/20/25 11:14 05/20/25 11:22 Acetaminophen 325 Mg Tablet PO 06/16/25 15:47 650 mg Q6H PRN Administration PAIN 1-10 OR FEVER > 100.4 Amiodarone HCl 200 mg 05/19/25 21:00 05/22/25 08:17 Amiodarone Hcl 200 Mg Tablet PO 06/18/25 20:59 200 mg BID RIANNA Administration Ascorbic Acid 250 mg 05/20/25 21:00 05/22/25 08:17 Ascorbic Acid 250 Mg Tablet PO 06/19/25 20:59 250 mg BID RIANNA Administration Dextrose 25 ml 05/17/25 16:04 Dextrose 50%-Water Inj 50 Ml Syringe IV 06/16/25 16:03 Q15MIN PRN BG 50-70 responsive npo pt Dextrose 50 ml 05/17/25 16:04 Dextrose 50%-Water Inj 50 Ml Syringe IV 06/16/25 16:03 Q15MIN PRN BG <50 OR BG <70 & pt unresponsive Divalproex Sodium 250 mg 05/17/25 22:00 05/22/25 05:03 Divalproex Sod Ec 125 Mg Tabec PO 06/16/25 21:59 250 mg TID RIANNA Administration Epoetin Jemal 10,000 unit 05/19/25 16:45 05/19/25 17:25 Epoetin Jemal-Epbx Inj 10,000 Unit/Ml Vial (Non-Esrd) SC 06/18/25 16:44 10,000 unit MoTh RIANNA Administration Glucagon 1 mg 05/17/25 16:04 Glucagon Inj 1 Mg Vial IM Q15MIN PRN BG <70, and no IV access Heparin Sodium (Porcine) 3,300 unit 05/17/25 16:12 05/20/25 17:52 Heparin Sod Inj 1000 Unit/Ml Vial 10 Ml INDWELLCAT 05/31/25 16:11 3,300 unit PRN PRN Administration DIALYSIS Albumin Human 25 gm in 100 mls @ 100 mls/min 05/17/25 13:44 05/20/25 07:39 Albuminar-25 Ivpb IV Infused PRN PRN Infusion DIALYSIS Norepinephrine/Dextrose 8 mg in 250 mls @ 9.521 mls/hr 05/19/25 07:51 05/21/25 10:51 Levophed In D5w 8mg/250ml IV 06/16/25 17:25 0 mcg/kg/min .Q24H PRN 0 mls/hr PER PROTOCOL Titration Protocol 0.05 MCG/KG/MIN Vasopressin/Sodium Chloride 20 unit in 100 mls @ 9 mls/hr 05/19/25 08:41 05/22/25 08:46 Vasostrict/Ns Ivpb IV 06/18/25 08:40 0.03 unit/min .Q11H7M PRN 9 mls/hr PER PROTOCOL Titration Protocol 0.03 UNIT/MIN Heparin Sodium/Dextrose 25,000 unit in 250 mls @ 10 mls/hr 05/21/25 10:15 05/22/25 09:23 Heparin In D5w Ivpb IV 06/04/25 10:14 9.615 units/kg/hr .Q24H RIANNA 10 mls/hr Protocol Titration 9.615 UNITS/KG/HR Doxycycline Hyclate 100 mg/ 100 mls @ 100 mls/hr 05/21/25 10:00 05/22/25 08:17 Sodium Chloride IV 05/28/25 09:59 100 mls/hr BID RIANNA Administration Sodium Phosphate 22.5 mmol/ 507.5 mls @ 82.778 mls/hr 05/22/25 04:24 05/22/25 04:43 Sodium Chloride IV 05/22/25 10:31 Not Given X1 ONE Albumin Human 12.5 gm in 50 mls @ 50 mls/hr 05/22/25 10:16 Albuminar-25 Ivpb IV 05/22/25 11:15 X1 ONE Levothyroxine Sodium 50 mcg 05/18/25 06:00 05/22/25 05:04 Levothyroxine Sodium 25 Mcg Tablet PO 06/17/25 05:59 50 mcg ACBR RIANNA Administration Melatonin 3 mg 05/17/25 16:14 05/20/25 21:30 Melatonin 3 Mg Tablet PO 3 mg HS PRN Administration sleep Protocol Midodrine 10 mg 05/22/25 10:00 Midodrine 5 Mg Tablet PO 06/21/25 09:59 Q6H RIANNA Multivitamins 1 tab 05/19/25 09:23 05/20/25 08:54 Multivitamins Tablet PO 06/18/25 09:14 1 tab On Hold: 05/20/25 15:49 QDAY RIANNA Administration Comment: NEPHROVITE ACTIVE Ondansetron HCl 4 mg 05/20/25 11:14 05/21/25 09:30 Ondansetron Inj 2 Mg/Ml Inj 2 Ml IVP 06/19/25 11:13 4 mg Q8HR PRN Administration NAUSEA OR VOMITING Protocol Pharmacy Consult 1 each 05/18/25 08:27 Pharmacy Renal Dose Adjustment 1 Ea XX 06/17/25 08:26 PRN PRN CONSULT Sennosides 1 tab 05/21/25 07:56 05/21/25 08:10 Senna/Docusate Sod 1 Tab Tablet PO 06/20/25 07:55 1 tab QDAY PRN Administration CONSTIPATION Protocol Sodium Chloride 3 ml 05/17/25 13:24 05/17/25 13:36 Sodium Chloride Rt Cristina 0.9% 3 Ml Nebu INH 06/16/25 13:23 3 ml PRN PRN Administration SOLN Vitamin B Complex/Vit C/Folic Acid 1 tab 05/20/25 15:45 05/22/25 08:16 Vit B12/Vit C/Fa (Nephrovite) Tablet PO 06/19/25 15:44 1 tab QDAY RIANNA Administration Zinc Sulfate 220 mg 05/20/25 15:45 05/22/25 08:17 Zinc Sulfate 220 Mg Capsule PO 06/03/25 15:44 220 mg QDAY RIANNA Administration Plan Hollie Whaley 64F with pmhx significant for CVA, atrial fibrillation on Xarelto, HFrEF (15-20% 04/2025), newly ESRD on HD (TThSat), hypothyroidism who presented to [facility] ED on 05/17 for SOB, admitted for lactic acidosis with hyperkalemia. Emergent HD begun, however 30 minutes into HD, patient became hypotensive and progressively confused. Patient was then admitted to ICU where she was subsequently placed on pressors and intubated. Cardiology consulted for management of atrial fibrillation with RVR. #Atrial fibrillation RVR 2/ #Metformin associated lactic acidosis #Shock, unknown etiology #Hx of atrial fibrillation Patient has a history of A-fib on Eliquis and previously took metoprolol XL 50 mg QD for rate control and on previous hospitalization, patient experienced bradycardia and hypotension with metoprolol and was started on amiodarone 200 mg BID. Admission labs ABG 7.05/15/229/4, K 6.1, bicarb <10, AG 32, BUN 27, Cr 4.1, glucose 42, lactic acid 22, Mg 2.2, LDH 337, trop 0.023, BNP 1945. Unlikely cardiogenic shock as in spite of patient having severe HFrEF, admission troponins are negative. EKG shows afib RVR rate 111 with left axis deviation. 05/18/25 Patient was intubated and tele in ICU showed atrial fibrillation RVR 120-130s. Atrial fibrillation RVR likely secondary to severe lactic acidosis. Ddx for lactic acidosis includes, ESBL UTI, TDC infection, bacteremia, medication s/e. CHADSVASC score 4, 4.8% stroke risk per year HASBLED 3 s/p IV amiodarone (05/17-05/18) Plan: ? We recommend transfusing the patient 1 to 2 units of blood to help increase blood pressure and also decrease tachycardia - PO amiodarone 200 mg BID as patient is now able to tolerate oral and given patient hx of atrial fibrillation as well as low EF and to decrease arrhythmias such as VT and VF risk as pt does have dilated cardiomyopathy - Patient was previously given metoprolol on past admission and patient experienced hypotension and bradycardia, recommend to avoid metoprolol at this time - Monitor QTc closely - Continue heparin drip for anticoagulation over Eliquis as heparin is more convenient to stop if patient requires surgery, drop in Hgb or further operations - Consider restarting Eliquis once patient has been downgraded to floors - Telemetry/ICU for cardiac monitoring - Keep K>4 and Mg>2 #HFrEF (15-20% 04/2025) #Dilated cardiomyopathy Patient endorses remote occasional cocaine use for only one year. Denies previous VT, having ever seen a professional development instructor or ever having a cardiac catheterization done. Per brother, atrial fibrillation runs in the family, unsure of heart failure or cardiac . 2022 Echocardiogram shows dilated cardiomyopathy, severe global hypokinesis with estimated EF 25 to 30%, normal RV size, LA mildly dilated, mild MR. 04/2025 Echocardiogram shows dilated cardiomyopathy, moderately dilated LV, severe global hypokinesis and severe systolic dysfunction estimated EF 15 to 20%. Normal RV size, reduced systolic function. RA estimated RVSP 45 mmHg, moderate pulmonary hypertension, moderate MR and mild TR, trace to mild AI, LA severely dilated, RA severely dilated, mildly dilated ascending body measuring 3.9 cm Plan: - Plan to initiate GDMT once blood pressure tolerates however avoid SGLT2 inhibitors due to current dialysis status - Strict I&O and daily weights - Continue to follow up outpatient for further management - May need defibrilator due severe HFrEF if pt does not respond to maximum GDMT for more 3 months - Considering cardiac catheterization as a cause of dilated cardiomyopathy (if not performed before) prior to discharge however patient has been bed bound for a long time due to bilateral foot drop and LLE weakness and cardiac catheterization may not be indicated #ESRD on HD (//Fri) #Normocytic anemia #Hypotension 2/2 sepsis #Leukocytosis #Nephrolithiasis #Hypothyroidism #CVA #Mood disorder Plan: ? Patient is getting CRRT - Above managed by primary team Thank you for your consultation and allowing participation in patient's care. Plan of care discussed with attending Dr. Swapna August, PGY-1 Internal Medicine Attending Provider Attestation/Addendum I have personally seen and examined the patient separately on the above date of service and discussed the plan of care with the resident. I reviewed the resident Dr. Lockhart consultation progress note and agree with the resident findings and plan in the note above and have also edited the documentation to reflect my findings and plan. Bishnu Barcenas M.D. Interventional Cardiology
[2025-05-22] MEDS: ALBUMIN HUMAN 25% IVPB 12.5 GM/50 ML BTL IV (10:56)
[2025-05-22] MEDS: Heparin/D5w 25K 250 ML Ivpb 25,000 UNIT/250 ML BAG 10 UNIT IV (13:14)
[2025-05-22 14:01] LABS: Hematocrit 22.7 % (36.0-46.0)
[2025-05-22 14:02] LABS: Hemoglobin 7.4 g/dL (12.0-16.0)
[2025-05-22] MEDS: ONDANSETRON INJ 2 MG/ML INJ 2 ML 4 MG IVP (15:07)
[2025-05-22 15:54] LABS: Partial Thromboplastin Time 70.2 Seconds (22.0-36.0)
[2025-05-22 15:58] LABS: Albumin, Serum 3.3 gm/dL (3.4-4.8); Anion Gap 7 (7-16); BUN/Creatinine Ratio 8 Ratio (12-20); Blood Urea Nitrogen < 5 mg/dL (9-23); Calcium 8.1 mg/dL (8.3-10.6); Calcium (Corrected) 8.7 mg/dL (8.5-10.1); Carbon Dioxide 26.5 mMol/L (20.0-31.0); Chloride 103 mMol/L (98-107); Creatinine (Component) 0.6 mg/dL (0.6-1.3); Estimated Creatinine Clearance 129.2 mL/min (>60); Glucose 174 mg/dL (74-106); Osmolality,Calculated 273 (275-295); Potassium 4.4 mMol/L (3.4-5.1); Sodium 136 mMol/L (136-145); eGFR > 60 See Note
[2025-05-22 16:12] LABS: Phosphorous 1.0 mg/dL (2.4-5.1)
[2025-05-22] MEDS: ACETAMINOPHEN 325 MG TABLET 650 MG PO ×2 (17:03→22:38)
[2025-05-22] MEDS: SOD PHOS ADDITIVE 22.5 MMOL in SODIUM CHLORIDE 0.9% 500 ML 500 ML 82.778 MMOL IV (19:08)
[2025-05-22 21:30] LABS: Partial Thromboplastin Time 54.8 Seconds (22.0-36.0)
[2025-05-22] MEDS: MELATONIN 3 MG TABLET PO (21:33)
[2025-05-22] MEDS: Magnesium Sulfate 2 GM Ivpb 2 GM/50 ML BAG IV (22:40)
[2025-05-23] VITALS (141 sets, daily range): BP systolic 58–122; BP diastolic 43–91; PULSE 68–114; RESP 7–21; TEMP 35.9–36.6; O2SAT 92–100; BMI 29.5
[2025-05-23] MEDS: VASOPRESSIN IN NS IVPB 20 UNIT/100 ML BAG 9 UNIT IV (00:41)
[2025-05-23] MEDS: MIDODRINE 5 MG TABLET 10 MG PO ×4 (04:54→21:26)
[2025-05-23] MEDS: LEVOTHYROXINE SODIUM 25 MCG TABLET 50 MCG PO (05:03)
[2025-05-23] MEDS: DIVALPROEX SOD EC 125 MG TABEC 250 MG PO ×3 (05:03→21:23)
[2025-05-23] MEDS: ONDANSETRON INJ 2 MG/ML INJ 2 ML 4 MG IVP (05:06)
[2025-05-23 06:02] LABS: INR 1.2 (0.9-1.3); Partial Thromboplastin Time 54.7 Seconds (22.0-36.0); Prothrombin Time 13.4 Seconds (9.0-12.2)
[2025-05-23 07:50] LABS: Basophils # (Auto) 0.0 Thou/mm3 (0.0-0.2); Basophils % (Auto) 0 % (0-2.5); Eosinophils # (Auto) 0.2 Thou/mm3 (0.0-0.5); Eosinophils % (Auto) 2 % (0-10); Hematocrit 24.8 % (36.0-46.0); Immature Granulocytes Auto 0.05 Thou/mm3 (0.00-0.00); Lymphocytes # (Auto) 3.2 Thou/mm3 (1.0-4.8); Lymphocytes % (Auto) 32 % (10-50); Mean Corpuscular HGB Conc 31.9 g/dl (31.0-37.0); Mean Corpuscular Hemoglobin 32.2 pg (25.0-35.0); Mean Corpuscular Volume 101 fL (80-100); Monocytes # (Auto) 1.3 Thou/mm3 (0.0-0.8); Monocytes % (Auto) 13 % (0-12); Neutrophils # (Auto) 5.1 Thou/mm3 (1.8-7.7); Neutrophils % (Auto) 52 % (37-80); Nucleated Red Blood Cell # 0.17 Thou/mm3 (0.00-0.00); Nucleated Red Blood Cell % 2 /100 WBC (0); Platelet Count 128 Thou/mm3 (140-440); RDW Standard Deviation 78.6 fL (36.4-46.3); Red Blood Count 2.45 Miln/mm3 (4.00-5.20); White Blood Count 9.9 Thou/mm3 (3.6-11.0)
[2025-05-23 07:59] LABS: Anion Gap 9 (7-16); BUN/Creatinine Ratio 8 Ratio (12-20); Blood Urea Nitrogen 8 mg/dL (9-23); Calcium 8.0 mg/dL (8.3-10.6); Carbon Dioxide 27.0 mMol/L (20.0-31.0); Chloride 102 mMol/L (98-107); Creatinine (Component) 1.0 mg/dL (0.6-1.3); Estimated Creatinine Clearance 75.8 mL/min (>60); Glucose 132 mg/dL (74-106); Magnesium 2.0 mg/dL (1.6-2.6); Osmolality,Calculated 275 (275-295); Phosphorous 3.2 mg/dL (2.4-5.1); Potassium 4.6 mMol/L (3.4-5.1); Sodium 138 mMol/L (136-145); eGFR > 60 See Note
[2025-05-23 08:04] LABS: Hemoglobin 7.9 g/dL (12.0-16.0)
[2025-05-23] MEDS: AMIODARONE HCL 200 MG TABLET PO ×2 (08:09→21:23)
[2025-05-23] MEDS: ASCORBIC ACID 250 MG TABLET PO ×2 (08:09→21:23)
[2025-05-23] MEDS: VIT B12/Vit C/FA (Nephrovite) TABLET 1 TAB PO (08:10)
[2025-05-23] MEDS: ZINC SULFATE 220 MG CAPSULE PO (08:10)
[2025-05-23] MEDS: DOXYCYCLINE INJ 100 MG in SODIUM CHLORIDE 0.9% (POP) 100 ML IV ×2 (08:10→21:27)
--- NOTE | 2025-05-23 09:45 | ESPR_ITS ---
Documentation for date of: 05/23/25 Subjective Subjective Interval history: This is a 64-year-old female admitted to the ICU with septic shock. pt was brought to the ICU on 05/17. She is an ESRD pt on HD and had missed her HD that day. She was found to have a severe AGMA with LA that was felt to be 2/2 metformin. pt underwent partial dialysis on arrival prior to RR being called. she had high vasopressor requirements and was started on 2 vasopressors. She has been seen by nephrology and cardiology. There is a h/o HFrEF with most recent EF being 15-20%. Currently she is AAOx3 and interactive. She c/o nausea and abd discomfort. She is afebrile with no UOP. 05/22- no acute overnight events, tolerated CRRT, has had BM x2 with resolution of her abdominal discomfort and nausea, AAOx3, off of levophed today 05/23- no acute overnight events, on vasopressin, awake and talking, no SOB or pain, afebrile Critical Care Note Critical care time (min.): 38 Exam Vital Signs Temp Pulse Resp BP Pulse Ox O2 Del Method O2 Flow Rate 97.7 F 102 H 15 94/49 L 100 Nasal Cannula 1 05/23/25 04:16 05/23/25 08:40 05/23/25 08:40 05/23/25 08:45 05/23/25 08:40 05/23/25 04:16 05/23/25 06:38 FiO2 40 05/18/25 08:14 Narrative Exam Gen- NAD, AAOx3, L sided hemiplegia HEENT- NC/AT, mucosa hydrated, sclera anicteric, EOMI Chest- LCTAB, few scattered crackles at post base, HRIR, murmur Abd- s/nt/bs+, obese Ext- edema 3-4+ pitting b/l LE L>R, L sided weakness and contracted, no mottling, no clubbing Drips heparin vaso Physical Exam Completion Physical Exam Complete?: Yes Objective - Member Services Coordinator Labs 05/23/25 04:25 05/23/25 04:25 Labs: Laboratory Results - last 24 hr 05/22/25 05/22/25 05/22/25 09:00 13:33 15:12 WBC RBC Hgb 7.4 L Hct 22.7 L MCV MCH MCHC RDW Std Deviation Plt Count Neut % (Auto) Lymph % (Auto) [place] % (Auto) Eos % (Auto) Baso % (Auto) Neut # (Auto) Lymph # (Auto) [place] # (Auto) Eos # (Auto) Baso # (Auto) Immature Gran # (Auto) Absolute Nucleated RBC Immature Gran % Nucleated RBC % PT INR APTT 70.2 H Sodium 138 136 Potassium 4.1 4.4 Chloride 104 103 Carbon Dioxide 27.9 26.5 Anion Gap 6 L 7 BUN < 5 L < 5 L Creatinine 0.3 L 0.6 Estim Creat Clear Calc 260.0 129.2 eGFR > 60 > 60 BUN/Creatinine Ratio 17 8 L Glucose 167 H D 174 H Calculated Osmolality 276 273 L Calcium 7.8 L 8.1 L Corrected Calcium 8.7 8.7 Phosphorus 1.0 L 1.0 L Magnesium Albumin 2.9 L 3.3 L 05/22/25 05/23/25 20:45 04:25 WBC 9.9 RBC 2.45 L Hgb 7.9 L Hct 24.8 L MCV 101 H MCH 32.2 MCHC 31.9 RDW Std Deviation 78.6 H Plt Count 128 L D Neut % (Auto) 52 Lymph % (Auto) 32 [place] % (Auto) 13 H Eos % (Auto) 2 Baso % (Auto) 0 Neut # (Auto) 5.1 Lymph # (Auto) 3.2 [place] # (Auto) 1.3 H Eos # (Auto) 0.2 Baso # (Auto) 0.0 Immature Gran # (Auto) 0.05 H Absolute Nucleated RBC 0.17 H Immature Gran % 1 H Nucleated RBC % 2 H PT 13.4 H INR 1.2 APTT 54.8 H D 54.7 H Sodium 138 Potassium 4.6 Chloride 102 Carbon Dioxide 27.0 Anion Gap 9 BUN 8 L Creatinine 1.0 Estim Creat Clear Calc 75.8 eGFR > 60 BUN/Creatinine Ratio 8 L Glucose 132 H Calculated Osmolality 275 Calcium 8.0 L Corrected Calcium Phosphorus 3.2 Magnesium 2.0 Albumin Assessment & Plan Additional Plan Additional Plan: In brief this is a 64yo F admitted to the ICU for shock initially felt to be 2/2 severe acidosis due to metformin toxicity and poss sepsis a/p [employer]IST h/o CVA with residual L weakness CV HFrEF- last EF 15% - seen by cardiology - will need further workup once stable - unable to tolerate BB or ACEI/ARB at this time - noted to have a dilated cardiomyopathy - volume removal as able Shock- unclear etiology - non invasive hemodynamics obtained and suggest a mixed etiology with components of cardiogenic and distributive - has had some volume removal with CRRT -> for HD today - off levophed and on vasopressin 0.02 with MAP 100-> actively decreasing - on midodrine 10mg q6 - all cx are NTD, will complete 7 day course for poss underlying sepsis -> UA did have abundant WBC and L staghorn calculi present. started on abx 05/17 - LA has trended back down -> 2/2 metformin toxicity Afib- currently rate controlled - on amio - on heparin gtt Resp stable Renal ESRD on HD- followed by nephrology - HD today Hypophos- being repleted GI Abd pain- resolved with BM - on Nausea- prn zofran, hold PO intake for now Hypoalbuminemia Endo Hypothyroid- cont home levothyroxine - TSH slightly elevated, may need adjustment in home dose Heme DVT proph- heparin Anemia- had one drop earlier in her hospital stay - no active bleeding noted - labs show iron def and chronic dz - hb stable Thrombocytopenia- drop from arrival and baseline - unclear etiology however appears stable ID Decubitus ulcer on L LE- POA and will fu with wound care case d/w ICU team labs, imaging, records reviewed ~38ccmin required for eval, exam, review, intervention, discussion and formulation of POC for this critically ill pt with shock on vasopressors Provider Notation Provider Notation: Although this document has been carefully reviewed, there may still be some phonetic and other typographical errors. These errors are purely grammatical due to imperfections in the software program and should not be construed in any way to compromise the substance of the patient's medical care during this visit. Thank you for the opportunity and privilege in assisting you with this patient's care and management.
[2025-05-23] MEDS: ACETAMINOPHEN 325 MG TABLET 650 MG PO (09:55)
--- NOTE | 2025-05-23 10:15 | PD.RESPRO ---
Documentation for date of: 05/23/25 Subjective Subjective Interval history: (Below account was synthesized primarily from chart checking as patient had already become intubated before this group underwriter's interview) Patient is a 64-year-old F with a PMH of cerebrovascular accident, atrial fibrillation, heart failure with reduced ejection fraction (25-30% in January 2023), chronic kidney disease (ON dialysis Friday, and Friday), and hypothyroidism who was sent from a SNF for worsening oxygen saturation. Of note, patient had apparently missed her Friday HD session. In the ED, vitals showed: BP 114/88 HR 112 RR 22 Temp 97.9 SpO2 100% on 15 L oxy mask with FiO2 100% ED Course: CBC showed WBC 15.3, hemoglobin 11.0 (MCV 113, RDW 91.3), and platelet count 201. Coagulation panel showed PT 17.2, INR 1.6, APTT 36.7. ABG of the right radial artery showed pH 7.05, pCO2 15, PaO2 229, and HCO3 4. CMP showed sodium 139, potassium 6.1, chloride 97, carbon dioxide less than 10.0, anion gap 32, BUN 27, creatinine 4.1, eGFR 12, blood glucose 42, lactic acid 22.0, LDH 337, and BNP 1945. UA showed cloudy, light orange urine with pH 5.5, 1+ protein, 1+ ketones, 3+ blood, negative nitrate, positive leukocyte esterase, RBC 82, and WBC 1329. UDS was positive for opiates (patient received fentanyl in the hospital) and negative for all else. Imagin/16 chest x-ray showed mild enlargement of the cardiac contour and prominent vascular congestion suggestive of mild heart failure but without riccardo pulmonary edema or lobar pneumonia. 05/17 EKG showed atrial fibrillation with rapid ventricular response and heart rate 111, marked left axis deviation and bundle branch block, and QTc 492. Initially, a rapid response had been called around 16:30 for worsening SpO2 of 78% and patient was switched from oxy mask to high flow nasal cannula which improved her SpO2 to 92%. At that time, Nephrology (Dr. Landry) was consulted and it was recommended that patient begin receiving inpatient HD. Patient was started on dialysis and tolerated it for 30 minutes before developing MAP of 58-61. At this point, HD was paused and over the next 40 minutes patient received IV albumin 25 mL x2 and IV Tylenol for shivering and hypothermia of 96.4 with plans to administer IV meropenem 1 gm post-HD. However, patient's BP did not improve during this reprieve and a second rapid response was called around 17:45 for worsening hypotension of 80/40 and deteriorating mentation (shifting from A&O x 2 to responding only to sternal rub). Due to the above, ICU was contacted and patient was upgraded from Telemetry to ICU for pressor support with Levophed and intubation (induction agent: IV etomidate 30 mg, muscle relaxant: IV rocuronium 100 mg) in the setting of suspected septic shock 2/2 UTI. Central femoral line has been placed successfully but arterial line was unable to be installed. Patient's person to notify, Damian Hopkins (son), was called and informed about patient's diagnosis, current acute status, and admission into the ICU. Interval History 05/18/25: No overnight events. Patient was examined at bedside; she has been extubated and is no longer being chemically sedated with IV fentanyl. With regards to labs, WBC down trended to 10.4 from 15.3, hemoglobin down trended to 8.8 from 11.0, platelet count down trended to 93 from 201, APTT up trended to 57.4 from 36.7, ABG blood pH up trended to 7.46 from 7.05, pCO2 up trended to 31 from 15, PO2 194, HCO3 up trended to 22 from 4, potassium down trended to 3.2 from 6.1, carbon dioxide up trended to 22.8 from less than 10.0, anion gap downtrended to 17 from 32, BUN down trended to 6 from 27, creatinine down trended to 1.1 from 4.1, eGFR up trended to 56 from 12, blood glucose 116, hemoglobin A1c 5.0, lactic acid down trended to 2.2 from 22.0, phosphorus 1.1, and magnesium 1.7. She is slated to receive CRRT today. Due to continued need for pressor support, patient continues to meet criteria for ICU management. 05/19/25: Overnight Levophed was titrated to 0.19 from 0.17. Was on PIRRT overnight with a total of 1.5 ultrafiltration. Input 1944 cc, output 0, balance 1944 cc. This morning patient denied any SOB, chest pain/pressure or palpitations. She stated that she feels better and is eager to get back to her facility with her . Hb decreased to 7.5 from 8.8, WBC 12.2, NA 136, K4.2, BUN <5, CR 0.7, Phos 1.2, magnesium 1.7. From telemetry patient was in A-fib overnight with heart rates in 120s?130s. Currently amiodarone infusion and heparin infusion ongoing. Will start on vasopressin and downtitrate Levophed for heart rate improvement, also sat in new parameter for acceptable MAP >60. Will also put a hold on heparin infusion due to new finding of acute blood loss anemia. Metoprolol IV as needed for HR >130. repleted with sodium phosphate 22.5 mmol IV x 1, magnesium sulfate 4 g IV x 1. 1 unit PRBC ordered 05/20/25: No overnight events. Patient was examined at bedside; she was observed to be sitting upright in her bed, eating breakfast, and receiving PIRRT. She denies having new symptoms or complaints and expressed interest in knowing when she would be able to be discharged back to [facility] so she can be with her . Patient continues to have atrial fibrillation with HR of 100s and blood pressures continue to be soft, ranging between MAP of 60-70 while receiving PO midodrine 10 mg TID, 0.01 Levophed, and 0.03 Vasopressin. Notable labs today include: WBC 12.2 (same as yesterday), hemoglobin bump to 8.2 from 7.5, platelet count drop to 82 from 111, PT 13.5, creatinine bump to 1.6 from 0.7, eGFR drop to 36 from greater than 60, blood glucose 184, and corrected calcium 8.3 (repleted with PO calcium carbonate x 1). There has finally been a development in the mystery surrounding the likely inciting event that led to patient's current ICU admission. Originally, patient's severely elevated lactic acid level of 22.0 upon admission had been tentatively attributed to hypoperfusion 2/2 septic shock from UTI but this explanation had not been very convincing as lactic acid elevations of this degree solely from septic shock without concomitant multi-organ failure would be highly unusual/atypical (usual ranges would be between 2 - 10). Other differentials had included adverse medication effects from antihypertensives or ASA toxicity but these etiologies also lacked sufficient evidence corroborating them. Upon review of patient's paper charts from [facility], it was discovered that patient had been receiving PO metformin 1000 mg BID between 05/11 - 05/16 despite her last recorded creatinine and eGFR on 05/11 being 3.1 and 16, respectively. It is very likely that patient's intake of metformin (which is absolutely contraindicated for creatinine above 1.4 or eGFR < 30), in the setting of severe renal impairment, led to severe lactic acidosis via its mechanism of increased lactate production from shunting towards anaerobic metabolism (along with poor renal clearance of metformin). Although the patient may have also been experiencing septic shock 2/2 UTI, which may have also contributed to the patient's severe lactic acidosis, the primary contributor to her presentation was most likely metformin-associated lactic acidosis ([id number]). Knowing this, [facility] was contacted and it was urged to patient's nurse that her metformin be discontinued to prevent such an event from occurring again. Her nurse has voiced her understanding and agreement, and has also requested that her documentation from [facility] have this stipulation chronicled in her Discharge Summary for extra prevention via redundancy. In terms of management updates, patient's IV amiodarone drip has been switched to PO amiodarone, IV meropenem has been discontinued, and she will continue receiving CRRT/PIRRT/HD as guided by Nephrology. In terms of blood pressure management, patient will continue receiving vasopressin, Levophed, and midodrine to maintain a goal MAP of 60 or greater and she can be downgraded to floors when she no longer requires pressor support and is clinically stable. 05/21/25: Patient's nausea and abdominal pain that started yesterday evening continued throughout the night and she received senna, Maalox, and Reglan (with Reglan seeming the most effective in treating her symptoms). Today, patient was examined at bedside; she continues to complain about nausea, abdominal pain, inability to eat, sweating and a general sense of malaise that she was not reporting yesterday. Per nurse, patient has not had a bowel movement since 9/16 before she was admitted. On physical exam, patient has generalized tenderness to palpation of the abdomen that is most severe at the midline regions and hypoactive bowel sounds on auscultation. Labs today significant for Hgb bump to 8.7 from 8.2, platelet bump to 93 from 82, creatinine bump to 0.4 from 1.0, and TSH 5.31. Abdominal X-ray showed abundant stool throughout the colon and mild small bowel ileus. Patient's blood pressure continues to be soft with most readings in the 80-100s/50-80s despite being on PO midodrine 10 mg TID, Levophed 0.07, and vasopressin 0.03. In terms of the plan, patient will continue having her blood pressure managed with the 3 aforementioned agents titrated for a goal MAP of > 60 until she can be weaned off of pressors, be started on IV doxycycline 100 mg BID in order to achieve 7 days of antibiotic coverage (has already received IV meropenem 500 mg qD from 05/17-05/20), continued on her PO amiodarone for her atrial fibrillation (currently rate uncontrolled), given lactulose (alongside colace and senna as needed) to help with BMs, restarted on heparin for DVT prophylaxis, and continued on her home levothyroxine. She will also be receiving 24 hours of CRRT today per nephrology recommendations. Due to continued need for pressor support, patient continues to meet criteria for ICU-level management. 05/22/25: No overnight events. Patient was examined at bedside; she is alert and oriented x 3 and again voices that she would like to be sent back to [facility] so that she may see her . She reports that her abdominal discomfort from yesterday has now improved significantly after she was able to have 2 large BM's with the help of mineral oil enema. Patient's soft BPs have been improving despite volume removal with CRRT and she has been weaned off of Levophed today. Her MAP is being kept above 60 successfully with PO midodrine 10 mg q6HR and IV vasopressin 0.03. The rate control of her atrial fibrillation also seems improved from yesterday with the monitor showing a HR in the 90s at the time of interview. However, patient was noted to have a low hemoglobin of 7.4 which remained stable after a repeat H&H. No active bleeding has been observed. Will continue to monitor the patient and clear her for downgrade to floors once she can maintain a MAP > 60 without pressor support. 05/23/25: No overnight events. Patient was examined at bedside; she is alert and oriented x 3 and again verbalizes that she would like to be sent back to [facility] and that she misses her . Patient also complained of back pain which is chronic and was restarted on half of her home [place] dose (5/325) q8HR as needed. Her hemoglobin has improved to 7.9 from 7.4 yesterday. Additionally, her platelet count improved to 128 from 80 yesterday, which led to her GI prophylaxis with IV Protonix being discontinued as she is no longer thrombocytopenic and long-term PPIs contribute to nutritional deficiencies, increased bone fragility, kidney disease, infections, and dementia. On bedside echocardiogram, patient's IVC was non-collapsible (suggesting euvolemia), her contractile wall motion was adequate, and there were no pericardial effusions observed; this suggests that a cardiogenic etiology for patient's ongoing hypotension is less likely the primary contributor. Her blood pressure continues to be improved with only PO midodrine 10 mg QID and IV vasopressin 0.03 and she will be considered fit for downgrade to floors once a MAP > 60 can be maintained without any pressor support. Per nephrology, patient will also be receiving HD today instead of CRRT. Exam Vital Signs Temp Pulse Resp BP Pulse Ox O2 Del Method O2 Flow Rate 97.7 F 81 15 97/76 100 Nasal Cannula 1 05/23/25 04:16 05/23/25 09:55 05/23/25 08:40 05/23/25 09:55 05/23/25 08:40 05/23/25 04:16 05/23/25 06:38 FiO2 40 05/18/25 08:14 Narrative Exam General: A/O x3, no acute distress, Elderly, overweight woman w/ L sided paraplegia who appears older than stated age Head: Normocephalic, atraumatic. Eyes: Pupils equal but seemingly hyporeactive to light, EOMI. Anicteric, vision grossly intact. Ears: No ear pain, no ear discharge, Hearing grossly intact. Mouth/Throat: Edentulous. Oral mucosa adequately hydrated. No obvious lesions in oropharynx. Cardiovascular: Slightly tachycardic, irregularly irregular rhythm, no murmur, no JVD or carotid bruits. +S1/S2. Right IJ TDC in place with dried blood. Right femoral line in place. Exit site clean. Respiratory: Anterior and posterior lung amaro clear to auscultation bilaterally. No increase in work of breathing or use of accessory muscles noted. Gastrointestinal: Soft, nontender, non-distended, no palpable masses. No guarding or rebound tenderness. Bowel sounds slightly hypoactive. Extremities: 4+ pitting edema to the level of the thighs bilaterally (left foot is particularly edematous and much more so than right foot), left heel wound wrapped, contracture of left hand. Pedal pulses weak but present. No clubbing. Neuro: No acute neurological deficits outside of L sided paraplegia noted. Conversant, moving all extremities. No overt cerebellar signs/incoordination. Psychiatric: Cooperative, appropriate affect. Skin: Multiple ecchymoses noted on bilateral upper limbs (with more on L than R) and around tunneled dialysis catheter. Flaky skin noted at forehead and lower extremities. Objective Labs 05/23/25 04:25 05/23/25 04:25 Labs: Laboratory Results - last 24 hr 05/22/25 05/22/25 05/22/25 13:33 15:12 20:45 WBC RBC Hgb 7.4 L Hct 22.7 L MCV MCH MCHC RDW Std Deviation Plt Count Neut % (Auto) Lymph % (Auto) [place] % (Auto) Eos % (Auto) Baso % (Auto) Neut # (Auto) Lymph # (Auto) [place] # (Auto) Eos # (Auto) Baso # (Auto) Immature Gran # (Auto) Absolute Nucleated RBC Immature Gran % Nucleated RBC % PT INR APTT 70.2 H 54.8 H D Sodium 136 Potassium 4.4 Chloride 103 Carbon Dioxide 26.5 Anion Gap 7 BUN < 5 L Creatinine 0.6 Estim Creat Clear Calc 129.2 eGFR > 60 BUN/Creatinine Ratio 8 L Glucose 174 H Calculated Osmolality 273 L Calcium 8.1 L Corrected Calcium 8.7 Phosphorus 1.0 L Magnesium Albumin 3.3 L 05/23/25 04:25 WBC 9.9 RBC 2.45 L Hgb 7.9 L Hct 24.8 L MCV 101 H MCH 32.2 MCHC 31.9 RDW Std Deviation 78.6 H Plt Count 128 L D Neut % (Auto) 52 Lymph % (Auto) 32 [place] % (Auto) 13 H Eos % (Auto) 2 Baso % (Auto) 0 Neut # (Auto) 5.1 Lymph # (Auto) 3.2 [place] # (Auto) 1.3 H Eos # (Auto) 0.2 Baso # (Auto) 0.0 Immature Gran # (Auto) 0.05 H Absolute Nucleated RBC 0.17 H Immature Gran % 1 H Nucleated RBC % 2 H PT 13.4 H INR 1.2 APTT 54.7 H Sodium 138 Potassium 4.6 Chloride 102 Carbon Dioxide 27.0 Anion Gap 9 BUN 8 L Creatinine 1.0 Estim Creat Clear Calc 75.8 eGFR > 60 BUN/Creatinine Ratio 8 L Glucose 132 H Calculated Osmolality 275 Calcium 8.0 L Corrected Calcium Phosphorus 3.2 Magnesium 2.0 Albumin ABG Interpretation ABG results: 05/17/25 05/17/25 05/17/25 15:40 18:01 19:47 ABG pH 7.05 L* 7.11 L* 7.10 L* ABG pCO2 15 L* 24 L 28 L ABG pO2 229 H 241 H 441 H D ABG HCO3 4 L* 8 L* 9 L* ABG O2 Saturation 100 H 101 H 101 H ABG Base Excess -24 L -20 L -20 L 05/17/25 05/18/25 22:05 04:57 ABG pH 7.27 L D 7.46 H D ABG pCO2 33 31 L ABG pO2 208 H D 194 H ABG HCO3 15 L 22 ABG O2 Saturation 101 H 101 H ABG Base Excess -11 L -1 Quality Measures Quality Measures none Assessment & Plan Assessment Current Active Medications: Generic Name Dose Route Start Last Admin Trade Name Freq PRN Reason Stop Dose Admin Acetaminophen 650 mg 05/23/25 10:06 Acetaminophen 325 Mg Tablet PO 06/16/25 15:47 Q6H PRN PAIN 1-3 OR FEVER > 100.4 Hydrocodone Bitart/Acetaminophen 1 tab 05/23/25 10:06 Hydrocodone/Apap 5/325 Tablet PO 05/28/25 10:05 Q8HR PRN PAIN SCALE 4-10(Mod-Sev Amiodarone HCl 200 mg 05/19/25 21:00 05/23/25 08:09 Amiodarone Hcl 200 Mg Tablet PO 06/18/25 20:59 200 mg BID RIANNA Administration Ascorbic Acid 250 mg 05/20/25 21:00 05/23/25 08:09 Ascorbic Acid 250 Mg Tablet PO 06/19/25 20:59 250 mg BID RIANNA Administration Dextrose 25 ml 05/17/25 16:04 Dextrose 50%-Water Inj 50 Ml Syringe IV 06/16/25 16:03 Q15MIN PRN BG 50-70 responsive npo pt Dextrose 50 ml 05/17/25 16:04 Dextrose 50%-Water Inj 50 Ml Syringe IV 06/16/25 16:03 Q15MIN PRN BG <50 OR BG <70 & pt unresponsive Divalproex Sodium 250 mg 05/17/25 22:00 05/23/25 05:03 Divalproex Sod Ec 125 Mg Tabec PO 06/16/25 21:59 250 mg TID RIANNA Administration Epoetin Jemal 10,000 unit 05/19/25 16:45 05/19/25 17:25 Epoetin Jemal-Epbx Inj 10,000 Unit/Ml Vial (Non-Esrd) SC 06/18/25 16:44 10,000 unit MoTh RIANNA Administration Glucagon 1 mg 05/17/25 16:04 Glucagon Inj 1 Mg Vial IM Q15MIN PRN BG <70, and no IV access Heparin Sodium (Porcine) 3,300 unit 05/17/25 16:12 05/22/25 10:12 Heparin Sod Inj 1000 Unit/Ml Vial 10 Ml INDWELLCAT 05/31/25 16:11 3,300 unit PRN PRN Administration DIALYSIS Albumin Human 25 gm in 100 mls @ 100 mls/min 05/17/25 13:44 05/20/25 07:39 Albuminar-25 Ivpb IV Infused PRN PRN Infusion DIALYSIS Norepinephrine/Dextrose 8 mg in 250 mls @ 9.521 mls/hr 05/19/25 07:51 05/23/25 05:01 Levophed In D5w 8mg/250ml IV 06/16/25 17:25 0 mcg/kg/min .Q24H PRN 0 mls/hr PER PROTOCOL Titration Protocol 0.05 MCG/KG/MIN Vasopressin/Sodium Chloride 20 unit in 100 mls @ 9 mls/hr 05/19/25 08:41 05/23/25 06:00 Vasostrict/Ns Ivpb IV 06/18/25 08:40 0.03 unit/min .Q11H7M PRN 9 mls/hr PER PROTOCOL Titration Protocol 0.03 UNIT/MIN Heparin Sodium/Dextrose 25,000 unit in 250 mls @ 10 mls/hr 05/21/25 10:15 05/22/25 17:00 Heparin In D5w Ivpb IV 06/04/25 10:14 9.615 units/kg/hr .Q24H RIANNA 10 mls/hr Protocol Titration 9.615 UNITS/KG/HR Doxycycline Hyclate 100 mg/ 100 mls @ 100 mls/hr 05/21/25 10:00 05/23/25 08:10 Sodium Chloride IV 05/24/25 09:00 100 mls/hr BID RIANNA Administration Levothyroxine Sodium 50 mcg 05/18/25 06:00 05/23/25 05:03 Levothyroxine Sodium 25 Mcg Tablet PO 06/17/25 05:59 50 mcg ACBR RIANNA Administration Melatonin 3 mg 05/17/25 16:14 05/22/25 21:33 Melatonin 3 Mg Tablet PO 3 mg HS PRN Administration sleep Protocol Midodrine 10 mg 05/22/25 10:00 05/23/25 09:55 Midodrine 5 Mg Tablet PO 06/21/25 09:59 10 mg Q6H RIANNA Administration Ondansetron HCl 4 mg 05/20/25 11:14 05/23/25 05:06 Ondansetron Inj 2 Mg/Ml Inj 2 Ml IVP 06/19/25 11:13 4 mg Q8HR PRN Administration NAUSEA OR VOMITING Protocol Pharmacy Consult 1 each 05/18/25 08:27 Pharmacy Renal Dose Adjustment 1 Ea XX 06/17/25 08:26 PRN PRN CONSULT Sennosides 1 tab 05/21/25 07:56 05/21/25 08:10 Senna/Docusate Sod 1 Tab Tablet PO 06/20/25 07:55 1 tab QDAY PRN Administration CONSTIPATION Protocol Sodium Chloride 3 ml 05/17/25 13:24 05/17/25 13:36 Sodium Chloride Rt Cristina 0.9% 3 Ml Nebu INH 06/16/25 13:23 3 ml PRN PRN Administration SOLN Vitamin B Complex/Vit C/Folic Acid 1 tab 05/20/25 15:45 05/23/25 08:10 Vit B12/Vit C/Fa (Nephrovite) Tablet PO 06/19/25 15:44 1 tab QDAY RIANNA Administration Zinc Sulfate 220 mg 05/20/25 15:45 05/23/25 08:10 Zinc Sulfate 220 Mg Capsule PO 06/03/25 15:44 220 mg QDAY RIANNA Administration Plan Patient is a 64-year-old F with a PMH of cerebrovascular accident, atrial fibrillation, heart failure with reduced ejection fraction (25-30% in January 2023), chronic kidney disease (ON dialysis Friday, and Friday), and hypothyroidism who was sent from a SNF for worsening oxygen saturation. Patient received inpatient HD due to multiple metabolic abnormalities but developed pervasive and refractory hypotension during the session. No overnight events. Patient was examined at bedside; she is alert and oriented x 3 and again verbalizes that she would like to be sent back to [facility] and that she misses her . Patient also complained of back pain which is chronic and was restarted on half of her home [place] dose (5/325) q8HR as needed. Her hemoglobin has improved to 7.9 from 7.4 yesterday. Additionally, her platelet count improved to 128 from 80 yesterday, which led to her GI prophylaxis with IV Protonix being discontinued as she is no longer thrombocytopenic and long-term PPIs contribute to nutritional deficiencies, increased bone fragility, kidney disease, infections, and dementia. On bedside echocardiogram, patient's IVC was non-collapsible (suggesting euvolemia), her contractile wall motion was adequate, and there were no pericardial effusions observed; this suggests that a cardiogenic etiology for patient's ongoing hypotension is less likely the primary contributor. Her blood pressure continues to be improved with only PO midodrine 10 mg QID and IV vasopressin 0.03 and she will be considered fit for downgrade to floors once a MAP > 60 can be maintained without any pressor support. Per nephrology, patient will also be receiving HD today instead of CRRT. NEURO #History of CVA w/ residual L-sided weakness Dx: -05/01/[address] w/o contrast showed large old infarct of R MCA and smaller old infarct of R cerebellar hemisphere which remains unchanged from similar findings on 09/10/15 Rx: -May consider antiplatelet therapy -May consider restarting patient's home PO AtorvaliQ 20 mg qD RRx: -Chronic condition without current acute ramifications CARDIO Undifferentiated shock, requiring vasopressors During dialysis, patient developed a MAP of 58-61 and acute hypotension of 80/40 that was refractory to IV albumin and required pressor support (in the setting of severe lactic acidosis as well) Originally, shock was thought to be distributive in nature 2/2 septic inflammatory vasodilation but this seems less likely to be the primary contributor of hypotension now due to elevated SVR on NICOM On passive leg raise, SVI and CI mildly increased, indicating some level of fluid responsiveness On bedside echocardiogram, patient's IVC was non-collapsible (suggesting euvolemia), her contractile wall motion was adequate, and there were no pericardial effusions observed; this suggests that a cardiogenic etiology for patient's ongoing hypotension is less likely the primary contributor. There is also the question of whether the patient still remains in shock given her normal mentation and lack of other signs of hypoperfusion or if her normal baseline blood pressures are low due to poor heart function and she is chronically adapted for this pressure DDx: cardiogenic shock (EF 15-20%), hypovolemic shock, distributive shock, obstructive shock Dx: -05/23 Bedside echocardiogram showed that patient's IVC was non-collapsible (suggesting euvolemia), her contractile wall motion was adequate, and there were no pericardial effusions observed -05/21 NICOM readings: SVR 1345, SVI 23, CI 2.4 -05/21 NICOM readings (PLR): SVR 1345, SVI 27, CI 2.8 Rx: -Continue PO midodrine 10 mg QID to maintain MAP > 60 -If refractory to midodrine, continue IV vasopressin titrated to maintain MAP > 60 (with goal of weaning patient off of Levophed) -If refractory to vasopressin, continue IV Levophed titrated to maintain MAP > 60 RRx: ? Patient's pressor needs have decreased despite volume removal with HD and she has been able to maintain MAP > 60 on just PO midodrine 10 mg QID and IV vasopressin 0.03 (no Levophed) #Atrial fibrillation with RVR Per Cardiology note, patient has history of atrial fibrillation on Eliquis and previously took metoprolol XL 50 mg qD for rate control During previous hospitalization, patient experienced bradycardia and hypotension with metoprolol and was started on PO amiodarone 200 mg BID Currently suspect that atrial fibrillation with RVR is 2/2 severe lactic acidosis (LA 22.0) which itself was most likely due to metformin intake in the setting of severe renal impairment CHADSVASC score 4, 4.8% stroke risk per year HASBLED 3 Dx: -05/17 EKG showed atrial fibrillation with rapid ventricular response and heart rate 111, marked left axis deviation and bundle branch block, and QTc 492 -Other pertinent labs: (upon admission) lactic acid 22.0, potassium 6.1, CO2 less than 10.0, anion gap 32, BUN 27, creatinine 4.1, blood glucose 42, LDH 337, BNP 194, ABG blood pH 7.05, HCO3 4 Rx: -Continue PO amiodarone 200 mg BID -Continue heparin drip @ 9.615 units/kg/hr -Continuous cardiac monitoring -Maintain K>4 and Mg>2 RRx: -Patient continues to have atrial fibrillation today but HR seems better controlled in the 90 #HFrEF (EF 15-20%, 04/2025) #Dilated cardiomyopathy Cardiology currently has low suspicion for HFrEF exacerbation Dx: -2022 echocardiogram showed dilated cardiomyopathy, severe global hypokinesis with estimated EF of 25-30%, normal RV size, mildly dilated LA, and mild MR -04/2025 echocardiogram shows dilated cardiomyopathy, moderately dilated LV, severe global hypokinesis and severe systolic dysfunction with estimated EF of 15-20%. It also showed normal RV size, reduced systolic function, RA estimated RVSP 45 mmHg, moderate pulmonary hypertension, moderate MR and mild TR, trace to mild AI, severely dilated LA, severely dilated RA, and mildly dilated ascending body measuring 3.9 cm -BNP 1944, Troponin I WNL Rx: -Per cardiology recommendations, plan to initiate GDMT once blood pressure can tolerate it but avoid SGLT-2 inhibitors due to patient's ESRD on HD status -Strict I's & O's and daily weights -Outpatient follow-up with cardiology for further management (may need defibrillator if HFrEF symptoms are refractory to GDMT for over 3 months and cardiac catheterization to rule out CAD as a cause of dilated cardiomyopathy) RRx: -Based on 05/21 NICOM, patient is possibly mildly hypovolemic; however, 05/23 bedside echocardiogram showed a non-collapsible IVC, possibly suggesting that patient is euvolemic now PULM No acute problems GI #Abdominal pain (improving) Patient's nausea and abdominal pain that started in the evening of 05/20 continued throughout the night and she received senna, Maalox, and Reglan (with Reglan seeming the most effective in treating her symptoms). Importantly, she had not had a bowel movement since 05/17. Now greatly improved on 05/22 after patient had 2 large BM's yesterday with the assistance of mineral oil enema, lactulose, colace, and senna. DDx: gastroparesis, obstructive etiologies Dx: -05/21 abdominal X-ray showed abundant stool throughout the colon and mild small bowel ileus. -On physical exam, patient has generalized tenderness to palpation of the abdomen that is most severe at the midline regions and hypoactive bowel sounds on auscultation. Rx: -Lactulose -Colace, senna prn -Zofran prn -Hold PO intake NEPHRO #ESRD on HD (//Fri), missed HD session #Hypophosphatemia Dx: -05/17 ABG of the right radial artery showed pH 7.05, pCO2 15, PaO2 229, and HCO3 4. -Today, creatinine bump to 1.0 from 0.6 Rx: -Nephrology, Dr Landry consulted. Appreciate recommendations -Patient will have HD instead of CRRT for the first time today #Metformin-associated lactic acidosis (resolved) On presentation, patient had a lactic acid level of 22 which has now down-trended to 2.2. Patient's severely elevated lactic acid level of 22.0 upon admission had been tentatively attributed to hypoperfusion 2/2 septic shock from UTI but this explanation had not been very convincing as lactic acid elevations of this degree solely from septic shock without concomitant multi-organ failure would be highly unusual/atypical (usual ranges would be between 2 - 10). Per [facility] paper charts, patient had been receiving PO metformin 1000 mg BID between 05/11 - 05/16 despite her last recorded creatinine and eGFR on 05/11 being 3.1 and 16, respectively. It is very likely that patient's intake of metformin (which is absolutely contraindicated for creatinine above 1.4 or eGFR < 30), in the setting of severe renal impairment, led to severe lactic acidosis via its mechanism of increased lactate production from shunting towards anaerobic metabolism (along with poor renal clearance of metformin). DDx: minor contributions outside of [place] may include a combination of etiologies including tissue hypoperfusion 2/2 septic shock and/or cardiogenic shock, hypoglycemia-induced anaerobic metabolism, ESBL UTI, or bacteremia Dx: -ABG of the right radial artery showed pH 7.05, pCO2 15, PaO2 229, and HCO3 4. -Lactic acidosis has now down-trended from 22.0 to 2.2 Rx: -Called [facility] and emphasized the importance of discontinuing patient's metformin PLEASE TAKE EXTRA CARE TO DOCUMENT THAT PATIENT'S METFORMIN BE DISCONTINUED ON DISCHARGE SUMMARY HEME #Chronic normocytic anemia (resolving) Today, patient's hemoglobin increased from 7.4 to 7.9 Heparin was resumed on 05/21 Dx: -05/19 iron panel: iron 17, TIBC 163, iron sat 10, unsat iron binding 146 (likely mixed NELDA + ACD) -Type and screen completed Rx: -Transfuse with pRBC if hemoglobin < 7 RRx: -Currently, no active signs of bleeding #Thrombocytopenia (resolving) Platelet count improved today from 80 to 128 Rx: -Patient's IV Protonix for GI prophylaxis has been discontinued -Continue to monitor CBC Leukocytosis (resolved) DDx: UTI, reactive Dx: -WBC down-trended to 9.9 from 10.8 Rx: - Monitor for signs of infection and CBC ENDO #Hypothyroidism Dx: -TSH 5.31 Rx: -Continue home levothyroxine (dose may need to be increased) ID Complicated UTI Sterile pyuria Of note, patient was apparently discharged on 05/11/25 for nausea/vomiting/abdominal pain 2/2 septic shock 2/2 E.coli UTI and also has PMH of ESBL UTI Although patient had a negative urine culture, results and continue antibiotics as she recently completed a course and this may have contributed to her negative result. Dx: -UA showed cloudy, light orange urine with pH 5.5, 1+ protein, 1+ ketones, 3+ blood, negative nitrate, positive leukocyte esterase, RBC 82, and WBC 1329. -Urine culture showed contamination, final -Blood cultures showed no bacterial growth x 48 hours, preliminary -Patient denies having any urinary symptoms Rx: -Continue IV doxycycline 100 mg BID [05/21--], plan to continue until last dose on 05/24 -Discontinued IV meropenem 500 mg qD [05/17?05/20] RRx: -Patient has not complained of any urinary symptoms MSK #Prevention of ICU-acquired weakness -Add PT evaluation and encourage patient to mobilize and ambulate SKIN #Decubitus ulcer on L LE Present on admission Rx: -Wound care as needed Disposition: Requires continued ICU management due to continued need for IV vasopressin to maintain MAP > 60 DVT prophylaxis: Heparin GI prophylaxis: None (patient is neither intubated nor thrombocytopenic) Diet: Renal Turner: Present Lines: Peripheral IV, Central IV Antibiotics: Doxycycline CODE STATUS: FULL Plan of care discussed with Attending Dr. Arcadio Beasley, DO Internal Medicine, PGY-1
--- NOTE | 2025-05-23 11:18 | ESPR_ITS ---
Documentation for date of: 05/23/25 Subjective Subjective Interval history: Patient seen and examined at bedside. Telemetry reviewed, atrial fibrillation RVR 90-110s. BP 70s-low 100s/40-80, on vasopressin and midodrine 10 mg QID. Patient reports feeling well with good appetitie. Abdominal pain and nausea resolved following BM. Denies chest pain, chest pressure, SOB or palpitations. Hgb stable low 7/9, Platlets inc from 80 to 128, K 4.6, Cr 1.0, Mg 2.0. Exam Vital Signs Temp Pulse Resp BP Pulse Ox O2 Del Method O2 Flow Rate 97.7 F 86 15 85/63 L 100 Nasal Cannula 1 05/23/25 04:16 05/23/25 10:15 05/23/25 10:15 05/23/25 10:15 05/23/25 10:15 05/23/25 04:16 05/23/25 06:38 FiO2 40 05/18/25 08:14 Narrative Exam GENERAL: Sleepy and oriented x3 appears older than stated age, having bedside CRRT HEENT: NC/AT, mucous membranes dry, bilateral sclera anicteric CARDIOVASCULAR: irregular rhythm, tachycardic, no murmurs able to be appreciated, R IJ TDC in place with dried blood, R femoral line in place PULMONARY: distant breath sounds bilaterally, no rales/rhonchi/wheezes ABDOMINAL: soft, non-tender, non-distended, no rebound/guarding, bowel sounds present EXTREMITIES: 3+ pitting edema of LLE, trace pitting edema RLE, L heel wound wrapped, contracture of L hand, 0/5 strength in LUE and LLE, 4/5 strength RUE and RLE SKIN: LLE wound NEURO: alert, following commands Objective Labs 05/24/25 10:07 05/24/25 04:40 Labs: Laboratory Results - last 24 hr 05/22/25 05/22/25 05/22/25 13:33 15:12 20:45 WBC RBC Hgb 7.4 L Hct 22.7 L MCV MCH MCHC RDW Std Deviation Plt Count Neut % (Auto) Lymph % (Auto) [place] % (Auto) Eos % (Auto) Baso % (Auto) Neut # (Auto) Lymph # (Auto) [place] # (Auto) Eos # (Auto) Baso # (Auto) Immature Gran # (Auto) Absolute Nucleated RBC Immature Gran % Nucleated RBC % PT INR APTT 70.2 H 54.8 H D Sodium 136 Potassium 4.4 Chloride 103 Carbon Dioxide 26.5 Anion Gap 7 BUN < 5 L Creatinine 0.6 Estim Creat Clear Calc 129.2 eGFR > 60 BUN/Creatinine Ratio 8 L Glucose 174 H Calculated Osmolality 273 L Calcium 8.1 L Corrected Calcium 8.7 Phosphorus 1.0 L Magnesium Albumin 3.3 L 05/23/25 04:25 WBC 9.9 RBC 2.45 L Hgb 7.9 L Hct 24.8 L MCV 101 H MCH 32.2 MCHC 31.9 RDW Std Deviation 78.6 H Plt Count 128 L D Neut % (Auto) 52 Lymph % (Auto) 32 [place] % (Auto) 13 H Eos % (Auto) 2 Baso % (Auto) 0 Neut # (Auto) 5.1 Lymph # (Auto) 3.2 [place] # (Auto) 1.3 H Eos # (Auto) 0.2 Baso # (Auto) 0.0 Immature Gran # (Auto) 0.05 H Absolute Nucleated RBC 0.17 H Immature Gran % 1 H Nucleated RBC % 2 H PT 13.4 H INR 1.2 APTT 54.7 H Sodium 138 Potassium 4.6 Chloride 102 Carbon Dioxide 27.0 Anion Gap 9 BUN 8 L Creatinine 1.0 Estim Creat Clear Calc 75.8 eGFR > 60 BUN/Creatinine Ratio 8 L Glucose 132 H Calculated Osmolality 275 Calcium 8.0 L Corrected Calcium Phosphorus 3.2 Magnesium 2.0 Albumin ABG Interpretation ABG results: 05/17/25 05/17/25 05/17/25 15:40 18:01 19:47 ABG pH 7.05 L* 7.11 L* 7.10 L* ABG pCO2 15 L* 24 L 28 L ABG pO2 229 H 241 H 441 H D ABG HCO3 4 L* 8 L* 9 L* ABG O2 Saturation 100 H 101 H 101 H ABG Base Excess -24 L -20 L -20 L 05/17/25 05/18/25 22:05 04:57 ABG pH 7.27 L D 7.46 H D ABG pCO2 33 31 L ABG pO2 208 H D 194 H ABG HCO3 15 L 22 ABG O2 Saturation 101 H 101 H ABG Base Excess -11 L -1 Quality Measures Quality Measures none Assessment & Plan Assessment Current Active Medications: Generic Name Dose Route Start Last Admin Trade Name Freq PRN Reason Stop Dose Admin Acetaminophen 650 mg 05/23/25 10:06 Acetaminophen 325 Mg Tablet PO 06/16/25 15:47 Q6H PRN PAIN 1-3 OR FEVER > 100.4 Hydrocodone Bitart/Acetaminophen 1 tab 05/23/25 10:06 Hydrocodone/Apap 5/325 Tablet PO 05/28/25 10:05 Q8HR PRN PAIN SCALE 4-10(Mod-Sev Amiodarone HCl 200 mg 05/19/25 21:00 05/23/25 08:09 Amiodarone Hcl 200 Mg Tablet PO 06/18/25 20:59 200 mg BID RIANNA Administration Ascorbic Acid 250 mg 05/20/25 21:00 05/23/25 08:09 Ascorbic Acid 250 Mg Tablet PO 06/19/25 20:59 250 mg BID RIANNA Administration Dextrose 25 ml 05/17/25 16:04 Dextrose 50%-Water Inj 50 Ml Syringe IV 06/16/25 16:03 Q15MIN PRN BG 50-70 responsive npo pt Dextrose 50 ml 05/17/25 16:04 Dextrose 50%-Water Inj 50 Ml Syringe IV 06/16/25 16:03 Q15MIN PRN BG <50 OR BG <70 & pt unresponsive Divalproex Sodium 250 mg 05/17/25 22:00 05/23/25 05:03 Divalproex Sod Ec 125 Mg Tabec PO 06/16/25 21:59 250 mg TID RIANNA Administration Epoetin Jemal 10,000 unit 05/19/25 16:45 05/19/25 17:25 Epoetin Jemal-Epbx Inj 10,000 Unit/Ml Vial (Non-Esrd) SC 06/18/25 16:44 10,000 unit MoTh RIANNA Administration Glucagon 1 mg 05/17/25 16:04 Glucagon Inj 1 Mg Vial IM Q15MIN PRN BG <70, and no IV access Heparin Sodium (Porcine) 3,300 unit 05/17/25 16:12 05/22/25 10:12 Heparin Sod Inj 1000 Unit/Ml Vial 10 Ml INDWELLCAT 05/31/25 16:11 3,300 unit PRN PRN Administration DIALYSIS Albumin Human 25 gm in 100 mls @ 100 mls/min 05/17/25 13:44 05/20/25 07:39 Albuminar-25 Ivpb IV Infused PRN PRN Infusion DIALYSIS Norepinephrine/Dextrose 8 mg in 250 mls @ 9.521 mls/hr 05/19/25 07:51 05/23/25 05:01 Levophed In D5w 8mg/250ml IV 06/16/25 17:25 0 mcg/kg/min .Q24H PRN 0 mls/hr PER PROTOCOL Titration Protocol 0.05 MCG/KG/MIN Vasopressin/Sodium Chloride 20 unit in 100 mls @ 9 mls/hr 05/19/25 08:41 05/23/25 06:00 Vasostrict/Ns Ivpb IV 06/18/25 08:40 0.03 unit/min .Q11H7M PRN 9 mls/hr PER PROTOCOL Titration Protocol 0.03 UNIT/MIN Heparin Sodium/Dextrose 25,000 unit in 250 mls @ 10 mls/hr 05/21/25 10:15 05/22/25 17:00 Heparin In D5w Ivpb IV 06/04/25 10:14 9.615 units/kg/hr .Q24H RIANNA 10 mls/hr Protocol Titration 9.615 UNITS/KG/HR Doxycycline Hyclate 100 mg/ 100 mls @ 100 mls/hr 05/21/25 10:00 05/23/25 08:10 Sodium Chloride IV 05/24/25 09:00 100 mls/hr BID RIANNA Administration Levothyroxine Sodium 50 mcg 05/18/25 06:00 05/23/25 05:03 Levothyroxine Sodium 25 Mcg Tablet PO 06/17/25 05:59 50 mcg ACBR RIANNA Administration Melatonin 3 mg 05/17/25 16:14 05/22/25 21:33 Melatonin 3 Mg Tablet PO 3 mg HS PRN Administration sleep Protocol Midodrine 10 mg 05/22/25 10:00 05/23/25 09:55 Midodrine 5 Mg Tablet PO 06/21/25 09:59 10 mg Q6H RIANNA Administration Ondansetron HCl 4 mg 05/20/25 11:14 05/23/25 05:06 Ondansetron Inj 2 Mg/Ml Inj 2 Ml IVP 06/19/25 11:13 4 mg Q8HR PRN Administration NAUSEA OR VOMITING Protocol Pharmacy Consult 1 each 05/18/25 08:27 Pharmacy Renal Dose Adjustment 1 Ea XX 06/17/25 08:26 PRN PRN CONSULT Sennosides 1 tab 05/21/25 07:56 05/21/25 08:10 Senna/Docusate Sod 1 Tab Tablet PO 06/20/25 07:55 1 tab QDAY PRN Administration CONSTIPATION Protocol Sodium Chloride 3 ml 05/17/25 13:24 05/17/25 13:36 Sodium Chloride Rt Cristina 0.9% 3 Ml Nebu INH 06/16/25 13:23 3 ml PRN PRN Administration SOLN Vitamin B Complex/Vit C/Folic Acid 1 tab 05/20/25 15:45 05/23/25 08:10 Vit B12/Vit C/Fa (Nephrovite) Tablet PO 06/19/25 15:44 1 tab QDAY RIANNA Administration Zinc Sulfate 220 mg 05/20/25 15:45 05/23/25 08:10 Zinc Sulfate 220 Mg Capsule PO 06/03/25 15:44 220 mg QDAY RIANNA Administration Plan Hollie Whaley 64F with pmhx significant for CVA, atrial fibrillation on Xarelto, HFrEF (15-20% 04/2025), newly ESRD on HD (TThSat), hypothyroidism who presented to [facility] ED on 05/17 for SOB, admitted for lactic acidosis with hyperkalemia. Emergent HD begun, however 30 minutes into HD, patient became hypotensive and progressively confused. Patient was then admitted to ICU where she was subsequently placed on pressors and intubated. Cardiology consulted for management of atrial fibrillation with RVR. #Atrial fibrillation RVR 2/2 #Metformin associated lactic acidosis #Shock, unknown etiology #Hx of atrial fibrillation Patient has a history of A-fib on Eliquis and previously took metoprolol XL 50 mg QD for rate control and on previous hospitalization, patient experienced bradycardia and hypotension with metoprolol and was started on amiodarone 200 mg BID. Admission labs ABG 7.05/15/229/4, K 6.1, bicarb <10, AG 32, BUN 27, Cr 4.1, glucose 42, lactic acid 22, Mg 2.2, LDH 337, trop 0.023, BNP 1945. Unlikely cardiogenic shock as in spite of patient having severe HFrEF, admission troponins are negative. EKG shows afib RVR rate 111 with left axis deviation. 05/18/25 Patient was intubated and tele in ICU showed atrial fibrillation RVR 120-130s. Atrial fibrillation RVR likely secondary to severe lactic acidosis. Ddx for lactic acidosis includes, ESBL UTI, TDC infection, bacteremia, medication s/e. CHADSVASC score 4, 4.8% stroke risk per year HASBLED 3 s/p IV amiodarone (05/17-05/18) Plan: ? We recommend transfusing the patient 1 to 2 units of blood to help increase blood pressure and also decrease tachycardia - PO amiodarone 200 mg BID as patient is now able to tolerate oral and given patient hx of atrial fibrillation as well as low EF and to decrease arrhythmias such as VT and VF risk as pt does have dilated cardiomyopathy - Patient was previously given metoprolol on past admission and patient experienced hypotension and bradycardia, recommend to avoid metoprolol at this time - Monitor QTc closely - Continue heparin drip for anticoagulation over Eliquis as heparin is more convenient to stop if patient requires surgery, drop in Hgb or further operations - Consider restarting Eliquis once patient has been downgraded to floors - Telemetry/ICU for cardiac monitoring - Keep K>4 and Mg>2 #HFrEF (15-20% 04/2025) #Dilated cardiomyopathy Patient endorses remote occasional cocaine use for only one year. Denies previous DC, having ever seen a roll forger or ever having a cardiac catheterization done. Per brother, atrial fibrillation runs in the family, unsure of heart failure or cardiac . 2022 Echocardiogram shows dilated cardiomyopathy, severe global hypokinesis with estimated EF 25 to 30%, normal RV size, LA mildly dilated, mild MR. 04/2025 Echocardiogram shows dilated cardiomyopathy, moderately dilated LV, severe global hypokinesis and severe systolic dysfunction estimated EF 15 to 20%. Normal RV size, reduced systolic function. RA estimated RVSP 45 mmHg, moderate pulmonary hypertension, moderate MR and mild TR, trace to mild AI, LA severely dilated, RA severely dilated, mildly dilated ascending body measuring 3.9 cm Plan: - Plan to initiate GDMT once blood pressure tolerates however avoid SGLT2 inhibitors due to current dialysis status - Strict I&O and daily weights - Continue to follow up outpatient for further management - May need defibrilator due severe HFrEF if pt does not respond to maximum GDMT for more 3 months - Considering cardiac catheterization as a cause of dilated cardiomyopathy (if not performed before) prior to discharge however patient has been bed bound for a long time due to bilateral foot drop and LLE weakness and cardiac catheterization may not be indicated #Iron deficiency anemia s/p 2 pRBC (05/19, 05/23) #Acute macrocytic anemia Patient has a history of chronic anemia baseline hemoglobin ~7.5 to 10. Iron studies all low: Iron 17, TIBC 163 iron sat 10, unsat iron binding 146. Peripheral blood smear shows macrocytic anemia, mild thrombocytopenia, mature neutrophils with unremarkable morphology likely nutritional deficiency Currently no signs of overt bleeding, likely secondary to ESRD as well as chronic comorbidities. Plan: - Recommend IV iron infusion once downgraded to floors - CTM Hgb #ESRD on HD (//Fri) #Hypotension 2/2 sepsis #Leukocytosis #Nephrolithiasis #Hypothyroidism #CVA #Mood disorder Plan: ? Patient is getting CRRT - Above managed by primary team Thank you for your consultation and allowing participation in patient's care. Plan of care discussed with attending Dr. Swapna August, DO PGY-1 Internal Medicine Attending Provider Attestation/Addendum I have personally seen and examined the patient separately on the above date of service and discussed the plan of care with the resident. I reviewed the resident Dr. Donya August consultation progress note and agree with the resident findings and plan in the note above and have also edited the documentation to reflect my findings and plan. Bishnu Barcenas M.D. Interventional Cardiology
--- NOTE | 2025-05-23 16:39 | PC.SS ---
Update: Patient on room air. Receiving pressor support. P.O. feeding. Afebrile. Receiving IV antibiotics. Patient receiving dialysis today.
[2025-05-23] MEDS: ALBUMIN HUMAN 25% IVPB 25 GM/100 ML BTL IV (17:15)
--- NOTE | 2025-05-23 17:16 | PC.NURSE ---
BP TRENDING DOWN.PT REMAINS ASYMPTOMATIC AND W/O COMPLAINT. WILL ADMIN PRN ALBUMIN 25/100ML AND CONT. TO MONITOR
[2025-05-23] MEDS: Heparin/D5w 25K 250 ML Ivpb 25,000 UNIT/250 ML BAG 10 UNIT IV (18:02)
[2025-05-23] MEDS: HEPARIN SOD INJ 1000 UNIT/ML VIAL 10 ML 3300 UNIT INDWELLCAT (19:59)
[2025-05-23] MEDS: EPOETIN ALFA-EPBX INJ 10,000 UNIT/ML VIAL (NON-ESRD) 10000 UNIT SC (20:01)
[2025-05-23 20:57] LABS: Hematocrit 32.8 % (36.0-46.0); Hemoglobin 10.6 g/dL (12.0-16.0)
[2025-05-23] MEDS: HYDROcodone/APAP 5/325 TABLET 1 TAB PO (23:10)
[2025-05-23] MEDS: MELATONIN 3 MG TABLET PO (23:10)
--- NOTE | 2025-05-23 23:42 | ESPR_ITS ---
RE: RUBÉN VIVAR : 1960 DATE OF SERVICE: 05/23/2025 HISTORY OF PRESENT ILLNESS: Briefly, she is a 64-year-old woman with past medical history significant for CVA, atrial fibrillation, heart failure with reduced ejection fraction of 15%-20%, moderate pulmonary hypertension, and ESRD, on dialysis since 04/2025 dialyzing at the [facility] every Friday, , and Friday, who presented to the hospital on 05/17/2025 for shortness of breath. The patient was transferred to ICU when she became more hypoxic and hypotensive. She was started on vasopressor and on PIRRT for the next 5 days. Initially, she was on pressors, which was tapered off slowly. The patient is currently not on any vasopressor anymore. Her swelling is much better compared to how she was when she got admitted. PHYSICAL EXAMINATION: General: She is awake, alert, oriented, not in respiratory distress. Vital Signs: Blood pressure of 83/57 and heart rate of 90. HEENT: Anicteric sclerae. Normocephalic. Neck: Supple. JVD. Chest and Lungs: Symmetric expansion. Decreased breath sounds bilaterally. Cardiac: Without murmur. Abdomen: Soft. Extremities: 1+ bilateral pitting edema. CURRENT MEDICATIONS: Reviewed on: 1. Amiodarone 200 mg b.i.d. 2. Vitamin C 250 mg daily. 3. Epogen 10,000 units 2 times a week. 4. Vibramycin 100 mg b.i.d. 5. Depakote 250 mg t.i.d. 6. Heparin drip. 7. Hydrocodone. 8. Midodrine 10 mg p.o. q.6h. ASSESSMENT: 1. End-stage renal disease. 2. Heart failure with reduced ejection fraction of 15%-20% with severe global hypokinesis with cardiogenic shock. 3. Lactic acidosis secondary to poor organ perfusion due to cardiogenic shock and also metformin as apparently patient was being given metformin at [facility] 4. Hypotension with tachycardia, now stable. 5. History of cerebrovascular accident. 6. Anemia of chronic kidney disease. 7. Thrombocytopenia. 8. Atrial fibrillation, on amiodarone and heparin drip. PLAN: I agree with Dr. Chauhan to start her on blood transfusion and then do dialysis to remove excess fluid provided by blood transfusion. We will give 1 unit of packed RBC now and dialyze in the middle of blood transfusion. PIRRT has been discontinued. We will continue Retacrit 10,000 units subcutaneously 2 times a week. The patient has very poor prognosis at this point. DT: 22:56:14 TT: 23:41:00 Ref: [id number] - TID: [id number] MTDD
[2025-05-24] VITALS (45 sets, daily range): BP systolic 71–121; BP diastolic 50–92; PULSE 69–105; RESP 11–21; TEMP 35.8–36.4; O2SAT 98–100
[2025-05-24] MEDS: MIDODRINE 5 MG TABLET 10 MG PO ×4 (03:58→21:15)
[2025-05-24 05:21] LABS: Basophils # (Auto) 0.0 Thou/mm3 (0.0-0.2); Basophils % (Auto) 0 % (0-2.5); Eosinophils # (Auto) 0.2 Thou/mm3 (0.0-0.5); Eosinophils % (Auto) 2 % (0-10); Hematocrit 25.9 % (36.0-46.0); Immature Granulocytes Auto 0.08 Thou/mm3 (0.00-0.00); Lymphocytes # (Auto) 2.5 Thou/mm3 (1.0-4.8); Lymphocytes % (Auto) 31 % (10-50); Mean Corpuscular HGB Conc 32.8 g/dl (31.0-37.0); Mean Corpuscular Hemoglobin 32.2 pg (25.0-35.0); Mean Corpuscular Volume 98 fL (80-100); Monocytes # (Auto) 1.1 Thou/mm3 (0.0-0.8); Monocytes % (Auto) 14 % (0-12); Neutrophils # (Auto) 4.2 Thou/mm3 (1.8-7.7); Neutrophils % (Auto) 52 % (37-80); Nucleated Red Blood Cell # 0.10 Thou/mm3 (0.00-0.00); Nucleated Red Blood Cell % 1 /100 WBC (0); RDW Standard Deviation 70.6 fL (36.4-46.3); Red Blood Count 2.64 Miln/mm3 (4.00-5.20); White Blood Count 8.1 Thou/mm3 (3.6-11.0)
[2025-05-24 05:31] LABS: Hemoglobin 8.5 g/dL (12.0-16.0); Platelet Count 63 Thou/mm3 (140-440)
[2025-05-24 05:35] LABS: INR 1.2 (0.9-1.3); Partial Thromboplastin Time 44.5 Seconds (22.0-36.0); Prothrombin Time 12.9 Seconds (9.0-12.2)
[2025-05-24] MEDS: LEVOTHYROXINE SODIUM 25 MCG TABLET 50 MCG PO (05:39)
[2025-05-24] MEDS: DIVALPROEX SOD EC 125 MG TABEC 250 MG PO ×3 (05:39→21:15)
[2025-05-24 06:00] LABS: Anion Gap 8 (7-16); BUN/Creatinine Ratio 10 Ratio (12-20); Blood Urea Nitrogen 15 mg/dL (9-23); Calcium 8.2 mg/dL (8.3-10.6); Carbon Dioxide 27.6 mMol/L (20.0-31.0); Chloride 103 mMol/L (98-107); Creatinine (Component) 1.5 mg/dL (0.6-1.3); Estimated Creatinine Clearance 50.5 mL/min (>60); Glucose 122 mg/dL (74-106); Magnesium 1.8 mg/dL (1.6-2.6); Osmolality,Calculated 279 (275-295); Phosphorous 2.1 mg/dL (2.4-5.1); Potassium 4.5 mMol/L (3.4-5.1); Sodium 139 mMol/L (136-145); eGFR 39 See Note
[2025-05-24 06:27] LABS: Slide Review Platelets confirmed
[2025-05-24] MEDS: HEPARIN SOD INJ 5000 UNIT/ML VIAL 2000 UNIT IV (06:47)
[2025-05-24] MEDS: DOXYCYCLINE INJ 100 MG in SODIUM CHLORIDE 0.9% (POP) 100 ML IV (09:16)
[2025-05-24] MEDS: AMIODARONE HCL 200 MG TABLET PO ×2 (09:17→21:16)
[2025-05-24] MEDS: VIT B12/Vit C/FA (Nephrovite) TABLET 1 TAB PO (09:17)
[2025-05-24] MEDS: ZINC SULFATE 220 MG CAPSULE PO (09:18)
[2025-05-24] MEDS: Magnesium Sulfate 2 GM Ivpb 2 GM/50 ML BAG IV (09:19)
[2025-05-24] MEDS: NAPH,KPH MBDB 1 PACKET (1.5 GM) PO (09:20)
[2025-05-24 10:21] LABS: Basophils # (Auto) 0.0 Thou/mm3 (0.0-0.2); Basophils % (Auto) 0 % (0-2.5); Eosinophils # (Auto) 0.2 Thou/mm3 (0.0-0.5); Eosinophils % (Auto) 2 % (0-10); Hematocrit 26.0 % (36.0-46.0); Immature Granulocytes Auto 0.10 Thou/mm3 (0.00-0.00); Lymphocytes # (Auto) 1.9 Thou/mm3 (1.0-4.8); Lymphocytes % (Auto) 23 % (10-50); Mean Corpuscular HGB Conc 31.9 g/dl (31.0-37.0); Mean Corpuscular Hemoglobin 32.2 pg (25.0-35.0); Mean Corpuscular Volume 101 fL (80-100); Monocytes # (Auto) 1.1 Thou/mm3 (0.0-0.8); Monocytes % (Auto) 13 % (0-12); Neutrophils # (Auto) 5.1 Thou/mm3 (1.8-7.7); Neutrophils % (Auto) 61 % (37-80); Nucleated Red Blood Cell # 0.05 Thou/mm3 (0.00-0.00); Nucleated Red Blood Cell % 1 /100 WBC (0); Platelet Count 87 Thou/mm3 (140-440); RDW Standard Deviation 73.5 fL (36.4-46.3); Red Blood Count 2.58 Miln/mm3 (4.00-5.20); White Blood Count 8.4 Thou/mm3 (3.6-11.0)
--- NOTE | 2025-05-24 10:29 | ESPR_ITS ---
Documentation for date of: 05/24/25 Subjective Subjective Interval history: This is a 64-year-old female admitted to the ICU with septic shock. pt was brought to the ICU on 05/17. She is an ESRD pt on HD and had missed her HD that day. She was found to have a severe AGMA with LA that was felt to be 2/2 metformin. pt underwent partial dialysis on arrival prior to RR being called. she had high vasopressor requirements and was started on 2 vasopressors. She has been seen by nephrology and cardiology. There is a h/o HFrEF with most recent EF being 15-20%. Currently she is AAOx3 and interactive. She c/o nausea and abd discomfort. She is afebrile with no UOP. 05/22- no acute overnight events, tolerated CRRT, has had BM x2 with resolution of her abdominal discomfort and nausea, AAOx3, off of levophed today 05/23- no acute overnight events, on vasopressin, awake and talking, no SOB or pain, afebrile 05/24- no acute overnight, off vasopressin, tolerating PO, awake alert and conversant Critical Care Note Critical care time (min.): 0 Exam Vital Signs Temp Pulse Resp BP Pulse Ox O2 Del Method O2 Flow Rate 96.4 F L 79 15 82/64 L 99 Nasal Cannula 1 05/24/25 08:01 05/24/25 09:17 05/24/25 08:01 05/24/25 09:17 05/24/25 08:01 05/24/25 08:01 05/24/25 08:01 FiO2 40 05/18/25 08:14 Narrative Exam Gen- NAD, AAOx3, overweight HEENT- NC/AT, mucosa hydrated, sclera anicteric, EOMI, PERRL Chest- crackles at post base, no increase in WOB, HRIR, murmur Abd- s/nt/bs+ Ext- edema, pulses palp, no mottling, extensive bruising, decubitus ulcers on LLE Physical Exam Completion Physical Exam Complete?: Yes Objective - V[employer] 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 Labs 05/24/25 04:40 05/24/25 04:40 Labs: Laboratory Results - last 24 hr 05/23/25 05/23/25 05/24/25 14:07 20:40 04:40 WBC 8.1 RBC 2.64 L Hgb 10.6 L D 8.5 L D Hct 32.8 L 25.9 L MCV 98 MCH 32.2 MCHC 32.8 RDW Std Deviation 70.6 H Plt Count 63 L D Neut % (Auto) 52 Lymph % (Auto) 31 [place] % (Auto) 14 H Eos % (Auto) 2 Baso % (Auto) 0 Neut # (Auto) 4.2 Lymph # (Auto) 2.5 [place] # (Auto) 1.1 H Eos # (Auto) 0.2 Baso # (Auto) 0.0 Immature Gran # (Auto) 0.08 H Absolute Nucleated RBC 0.10 H Immature Gran % 1 H Nucleated RBC % 1 H PT 12.9 H INR 1.2 APTT 44.5 H D Sodium 139 Potassium 4.5 Chloride 103 Carbon Dioxide 27.6 Anion Gap 8 BUN 15 Creatinine 1.5 H D Estim Creat Clear Calc 50.5 L eGFR 39 L BUN/Creatinine Ratio 10 L Glucose 122 H Calculated Osmolality 279 Calcium 8.2 L Phosphorus 2.1 L Magnesium 1.8 Misc Test Result Platelets confirmed Blood Type B Positive Antibody Screen NEGATIVE Crossmatch See Detail Blood Bank Wristband ID Yes Assessment & Plan Additional Plan Additional Plan: In brief this is a 64yo F admitted to the ICU for shock initially felt to be 2/2 severe acidosis due to metformin toxicity and poss sepsis a/p [employer] h/o CVA with residual L weakness CV HFrEF- last EF 15% - seen by cardiology - will need further workup once stable - unable to tolerate BB or ACEI/ARB at this time - noted to have a dilated cardiomyopathy - volume removal as able - stable Shock- resolved - on midodrine 10mg q6 - complete 7 days of abx today Afib- currently rate controlled - on amio - on heparin gtt-> given drop in h/h hold for now Resp stable Renal ESRD on HD- followed by nephrology - HD per nephrology Hypophos- being repleted GI Abd pain- resolved with BM - on Bowel regimen Nausea- prn zofran - resolved Hypoalbuminemia Endo Hypothyroid- cont home levothyroxine - TSH slightly elevated, may need adjustment in home dose Heme DVT proph- heparin on hold Anemia- had one drop earlier in her hospital stay - labs show iron def and chronic dz - transfused 1u PRBC yesterday with fu Hb up to 10.6 and today 8.3 - remains without visible evidence of bleeding - hold heparin gtt for now Thrombocytopenia- drop from arrival and baseline - unclear etiology however appears stable ID Decubitus ulcer on L LE- POA and will fu with wound care case d/w ICU team labs, imaging, records reviewed ~35min required for eval, exam, review, intervention, discussion and formulation of POC Provider Notation Provider Notation: Although this document has been carefully reviewed, there may still be some phonetic and other typographical errors. These errors are purely grammatical due to imperfections in the software program and should not be construed in any way to compromise the substance of the patient's medical care during this visit. Thank you for the opportunity and privilege in assisting you with this patient's care and management.
[2025-05-24 10:30] LABS: Hemoglobin 8.3 g/dL (12.0-16.0)
--- NOTE | 2025-05-24 12:12 | ESPR_ITS ---
<Statement entered by Jonatan Kimble MD - 05/24/25 18:46> I saw and examined patient personally and supervised PGY 1 resident, Dr. Beasley with formulating a management plan. I agree with the documentation with the exceptions as listed below. Patient is a 64-year-old female from [facility] with a past medical history significant for CVA with left-sided deficits, atrial fibrillation on Eliquis, HFrEF [15-20%], ESRD on HD [/fri], hypothyroidism and left staghorn calculi who presented with a chief complaint of shortness of breath. Upon investigation she was found to have a severe lactic acidosis of 23, pH 7.07, bicarb <10. Subsequently she was intubated due to declining GCS and inability to protect her airway and Levophed was started for hypotension which developed during attempted hemodialysis session. She was upgraded to ICU at that point. Problem list: 1. Shock, undifferentiated?likely multi factorial with cardiogenic and distributive etiologies?resolved 2. Severe lactic acidosis secondary to metformin toxicity?resolved 3. Atrial fibrillation on rhythm control with amiodarone 4. Chronic diastolic and systolic congestive heart failure with reduced ejection fraction [15-20%] 5. ESRD on HD [//Friday] 6. Chronic normocytic anemia 7. UTI secondary to left staghorn calculi Patient was weaned off of vasopressin since yesterday morning. Currently only on midodrine 10 mg p.o. every 6 hourly for blood pressure support. A MAP of >60 is acceptable for her due to her severely reduced EF, ESRD and bedbound status. Also patient has no signs of endorgan damage or hypoperfusion with a normal lactate, this further supports a MAP goal of >60 as opposed to >65. For her A-fib with RVR, continues to be on rate control with amiodarone 200 mg p.o. twice daily. Patient's blood pressure does not allow for starting any other GDMT medication. Most likely patient may need either a DIRECTOR TRADING?D or an implantable defibrillator as an outpatient. Today patient's hemoglobin down trended to 8.5 from 10.6. Decision was made to discontinue heparin infusion as patient has blood loss anemia every time it is restarted. Today is patient's last dose of doxycycline for her UTI. Plan of care discussed with Attending Dr. Arcadio Kimble MD PGY 2 Disclaimer: This note was dictated by speech recognition. Minor errors in lawn care technician may be present due to voice recognition software. Documentation for date of: 05/24/25 Subjective Subjective Interval history: (Below account was synthesized primarily from chart checking as patient had already become intubated before this typewriters functional tester's interview) Patient is a 64-year-old F with a PMH of cerebrovascular accident, atrial fibrillation, heart failure with reduced ejection fraction (25-30% in January 2023), chronic kidney disease (ON dialysis Friday, and Friday), and hypothyroidism who was sent from a SNF for worsening oxygen saturation. Of note, patient had apparently missed her Friday HD session. In the ED, vitals showed: BP 114/88 HR 112 RR 22 Temp 97.9 SpO2 100% on 15 L oxy mask with FiO2 100% ED Course: CBC showed WBC 15.3, hemoglobin 11.0 (MCV 113, RDW 91.3), and platelet count 201. Coagulation panel showed PT 17.2, INR 1.6, APTT 36.7. ABG of the right radial artery showed pH 7.05, pCO2 15, PaO2 229, and HCO3 4. CMP showed sodium 139, potassium 6.1, chloride 97, carbon dioxide less than 10.0, anion gap 32, BUN 27, creatinine 4.1, eGFR 12, blood glucose 42, lactic acid 22.0, LDH 337, and BNP 1945. UA showed cloudy, light orange urine with pH 5.5, 1+ protein, 1+ ketones, 3+ blood, negative nitrate, positive leukocyte esterase, RBC 82, and WBC 1329. UDS was positive for opiates (patient received fentanyl in the hospital) and negative for all else. Imagin/16 chest x-ray showed mild enlargement of the cardiac contour and prominent vascular congestion suggestive of mild heart failure but without riccardo pulmonary edema or lobar pneumonia. 05/17 EKG showed atrial fibrillation with rapid ventricular response and heart rate 111, marked left axis deviation and bundle branch block, and QTc 492. Initially, a rapid response had been called around 16:30 for worsening SpO2 of 78% and patient was switched from oxy mask to high flow nasal cannula which improved her SpO2 to 92%. At that time, Nephrology (Dr. Landry) was consulted and it was recommended that patient begin receiving inpatient HD. Patient was started on dialysis and tolerated it for 30 minutes before developing MAP of 58-61. At this point, HD was paused and over the next 40 minutes patient received IV albumin 25 mL x2 and IV Tylenol for shivering and hypothermia of 96.4 with plans to administer IV meropenem 1 gm post-HD. However, patient's BP did not improve during this reprieve and a second rapid response was called around 17:45 for worsening hypotension of 80/40 and deteriorating mentation (shifting from A&O x 2 to responding only to sternal rub). Due to the above, ICU was contacted and patient was upgraded from Telemetry to ICU for pressor support with Levophed and intubation (induction agent: IV etomidate 30 mg, muscle relaxant: IV rocuronium 100 mg) in the setting of suspected septic shock 2/2 UTI. Central femoral line has been placed successfully but arterial line was unable to be installed. Patient's person to notify, Daiman Hopkins (son), was called and informed about patient's diagnosis, current acute status, and admission into the ICU. Interval History 05/18/25: No overnight events. Patient was examined at bedside; she has been extubated and is no longer being chemically sedated with IV fentanyl. With regards to labs, WBC down trended to 10.4 from 15.3, hemoglobin down trended to 8.8 from 11.0, platelet count down trended to 93 from 201, APTT up trended to 57.4 from 36.7, ABG blood pH up trended to 7.46 from 7.05, pCO2 up trended to 31 from 15, PO2 194, HCO3 up trended to 22 from 4, potassium down trended to 3.2 from 6.1, carbon dioxide up trended to 22.8 from less than 10.0, anion gap downtrended to 17 from 32, BUN down trended to 6 from 27, creatinine down trended to 1.1 from 4.1, eGFR up trended to 56 from 12, blood glucose 116, hemoglobin A1c 5.0, lactic acid down trended to 2.2 from 22.0, phosphorus 1.1, and magnesium 1.7. She is slated to receive CRRT today. Due to continued need for pressor support, patient continues to meet criteria for ICU management. 05/19/25: Overnight Levophed was titrated to 0.19 from 0.17. Was on PIRRT overnight with a total of 1.5 ultrafiltration. Input 1944 cc, output 0, balance 1944 cc. This morning patient denied any SOB, chest pain/pressure or palpitations. She stated that she feels better and is eager to get back to her facility with her . Hb decreased to 7.5 from 8.8, WBC 12.2, NA 136, K4.2, BUN <5, CR 0.7, Phos 1.2, magnesium 1.7. From telemetry patient was in A- fib overnight with heart rates in 120s?130s. Currently amiodarone infusion and heparin infusion ongoing. Will start on vasopressin and downtitrate Levophed for heart rate improvement, also sat in new parameter for acceptable MAP >60. Will also put a hold on heparin infusion due to new finding of acute blood loss anemia. Metoprolol IV as needed for HR >130. repleted with sodium phosphate 22.5 mmol IV x 1, magnesium sulfate 4 g IV x 1. 1 unit PRBC ordered 05/20/25: No overnight events. Patient was examined at bedside; she was observed to be sitting upright in her bed, eating breakfast, and receiving PIRRT. She denies having new symptoms or complaints and expressed interest in knowing when she would be able to be discharged back to [facility] so she can be with her . Patient continues to have atrial fibrillation with HR of 100s and blood pressures continue to be soft, ranging between MAP of 60-70 while receiving PO midodrine 10 mg TID, 0.01 Levophed, and 0.03 Vasopressin. Notable labs today include: WBC 12.2 (same as yesterday), hemoglobin bump to 8.2 from 7.5, platelet count drop to 82 from 111, PT 13.5, creatinine bump to 1.6 from 0.7, eGFR drop to 36 from greater than 60, blood glucose 184, and corrected calcium 8.3 (repleted with PO calcium carbonate x 1). There has finally been a development in the mystery surrounding the likely inciting event that led to patient's current ICU admission. Originally, patient's severely elevated lactic acid level of 22.0 upon admission had been tentatively attributed to hypoperfusion 2/2 septic shock from UTI but this explanation had not been very convincing as lactic acid elevations of this degree solely from septic shock without concomitant multi-organ failure would be highly unusual/atypical (usual ranges would be between 2 - 10). Other differentials had included adverse medication effects from antihypertensives or ASA toxicity but these etiologies also lacked sufficient evidence corroborating them. Upon review of patient's paper charts from [facility], it was discovered that patient had been receiving PO metformin 1000 mg BID between 05/11 - 05/16 despite her last recorded creatinine and eGFR on 05/11 being 3.1 and 16, respectively. It is very likely that patient's intake of metformin (which is absolutely contraindicated for creatinine above 1.4 or eGFR < 30), in the setting of severe renal impairment, led to severe lactic acidosis via its mechanism of increased lactate production from shunting towards anaerobic metabolism (along with poor renal clearance of metformin). Although the patient may have also been experiencing septic shock 2/2 UTI, which may have also contributed to the patient's severe lactic acidosis, the primary contributor to her presentation was most likely metformin-associated lactic acidosis ([id number]). Knowing this, [facility] was contacted and it was urged to patient's nurse that her metformin be discontinued to prevent such an event from occurring again. Her nurse has voiced her understanding and agreement, and has also requested that her documentation from [facility] have this stipulation chronicled in her Discharge Summary for extra prevention via redundancy. In terms of management updates, patient's IV amiodarone drip has been switched to PO amiodarone, IV meropenem has been discontinued, and she will continue receiving CRRT/PIRRT/HD as guided by Nephrology. In terms of blood pressure management, patient will continue receiving vasopressin, Levophed, and midodrine to maintain a goal MAP of 60 or greater and she can be downgraded to floors when she no longer requires pressor support and is clinically stable. 05/21/25: Patient's nausea and abdominal pain that started yesterday evening continued throughout the night and she received senna, Maalox, and Reglan (with Reglan seeming the most effective in treating her symptoms). Today, patient was examined at bedside; she continues to complain about nausea, abdominal pain, inability to eat, sweating and a general sense of malaise that she was not reporting yesterday. Per nurse, patient has not had a bowel movement since 05/17 before she was admitted. On physical exam, patient has generalized tenderness to palpation of the abdomen that is most severe at the midline regions and hypoactive bowel sounds on auscultation. Labs today significant for Hgb bump to 8.7 from 8.2, platelet bump to 93 from 82, creatinine bump to 0.4 from 1.0, and TSH 5.31. Abdominal X-ray showed abundant stool throughout the colon and mild small bowel ileus. Patient's blood pressure continues to be soft with most readings in the 80-100s/50-80s despite being on PO midodrine 10 mg TID, Levophed 0.07, and vasopressin 0.03. In terms of the plan, patient will continue having her blood pressure managed with the 3 aforementioned agents titrated for a goal MAP of > 60 until she can be weaned off of pressors, be started on IV doxycycline 100 mg BID in order to achieve 7 days of antibiotic coverage (has already received IV meropenem 500 mg qD from 05/17-05/20), continued on her PO amiodarone for her atrial fibrillation (currently rate uncontrolled), given lactulose (alongside colace and senna as needed) to help with BMs, restarted on heparin for DVT prophylaxis, and continued on her home levothyroxine. She will also be receiving 24 hours of CRRT today per nephrology recommendations. Due to continued need for pressor support, patient continues to meet criteria for ICU-level management. 05/22/25: No overnight events. Patient was examined at bedside; she is alert and oriented x 3 and again voices that she would like to be sent back to [facility] so that she may see her . She reports that her abdominal discomfort from yesterday has now improved significantly after she was able to have 2 large BM's with the help of mineral oil enema. Patient's soft BPs have been improving despite volume removal with CRRT and she has been weaned off of Levophed today. Her MAP is being kept above 60 successfully with PO midodrine 10 mg q6HR and IV vasopressin 0.03. The rate control of her atrial fibrillation also seems improved from yesterday with the monitor showing a HR in the 90s at the time of interview. However, patient was noted to have a low hemoglobin of 7.4 which remained stable after a repeat H&H. No active bleeding has been observed. Will continue to monitor the patient and clear her for downgrade to floors once she can maintain a MAP > 60 without pressor support. 05/23/25: No overnight events. Patient was examined at bedside; she is alert and oriented x 3 and again verbalizes that she would like to be sent back to [facility] and that she misses her . Patient also complained of back pain which is chronic and was restarted on half of her home [place] dose (5/325) q8HR as needed. Her hemoglobin has improved to 7.9 from 7.4 yesterday. Additionally, her platelet count improved to 128 from 80 yesterday, which led to her GI prophylaxis with IV Protonix being discontinued as she is no longer thrombocytopenic and long-term PPIs contribute to nutritional deficiencies, increased bone fragility, kidney disease, infections, and dementia. On bedside echocardiogram, patient's IVC was non-collapsible (suggesting euvolemia), her contractile wall motion was adequate, and there were no pericardial effusions observed; this suggests that a cardiogenic etiology for patient's ongoing hypotension is less likely the primary contributor. Her blood pressure continues to be improved with only PO midodrine 10 mg QID and IV vasopressin 0.03 and she will be considered fit for downgrade to floors once a MAP > 60 can be maintained without any pressor support. Per nephrology, patient will also be receiving HD today instead of CRRT. 05/24/25: No overnight events. Patient was examined at bedside; she is alert and oriented x 3 and repeats that she would like to go back to [facility] to see her who she misses. Pertinent labs today include hemoglobin drop to 8.5 from 10.6 yesterday and platelet count drop to 63 from 128; due to the above, patient's heparin DVT prophylaxis has been discontinued. Patient will receive her final dose of IV doxycycline 100 mg BID to complete a [id number] of antibiotics for her initial diagnosis of septic shock. Today, she was finally able to be weaned off of vasopressin while maintaining a MAP > 60 on only PO midodrine 10 mg QID and her atrial fibrillation rate seems improved (HR 80s). At this time, patient has been deemed clinically stabilized and will be downgraded to floors today. Exam Vital Signs Temp Pulse Resp BP Pulse Ox O2 Del Method O2 Flow Rate 96.4 F L 79 15 82/64 L 99 Nasal Cannula 1 05/24/25 08:01 05/24/25 09:17 05/24/25 08:01 05/24/25 09:17 05/24/25 08:01 05/24/25 08:01 05/24/25 08:01 FiO2 40 05/18/25 08:14 Narrative Exam General: A/O x3, no acute distress, Elderly, overweight woman w/ L sided paraplegia who appears older than stated age Head: Normocephalic, atraumatic. Eyes: Pupils equal. EOMI. Anicteric, vision grossly intact. Ears: No ear pain, no ear discharge, Hearing grossly intact. Mouth/Throat: Edentulous. Oral mucosa adequately hydrated. No obvious lesions in oropharynx. Cardiovascular: Slightly tachycardic, irregularly irregular rhythm, no murmur, no JVD or carotid bruits. +S1/S2. Right IJ TDC in place with dried blood. Right femoral line in place. Exit site clean. Respiratory: Anterior and posterior lung amaro clear to auscultation bilaterally. No increase in work of breathing or use of accessory muscles noted. Gastrointestinal: Soft, nontender, non-distended, no palpable masses. No guarding or rebound tenderness. Bowel sounds slightly hypoactive. Extremities: 4+ pitting edema to the level of the thighs bilaterally (left foot is particularly edematous and much more so than right foot), left heel wound wrapped, contracture of left hand. Pedal pulses weak but present. No clubbing. Neuro: No acute neurological deficits outside of L sided paraplegia noted. Conversant, moving all extremities. No overt cerebellar signs/incoordination. Psychiatric: Cooperative, appropriate affect. Skin: Multiple ecchymoses noted on bilateral upper limbs (with more on L than R) and around tunneled dialysis catheter. Flaky skin noted at forehead and lower extremities. Objective Labs 05/24/25 10:07 05/24/25 04:40 Labs: Laboratory Results - last 24 hr 05/23/25 05/23/2525 14:07 20:40 04:40 WBC 8.1 RBC 2.64 L Hgb 10.6 L D 8.5 L D Hct 32.8 L 25.9 L MCV 98 MCH 32.2 MCHC 32.8 RDW Std Deviation 70.6 H Plt Count 63 L D Neut % (Auto) 52 Lymph % (Auto) 31 Crisp % (Auto) 14 H Eos % (Auto) 2 Baso % (Auto) 0 Neut # (Auto) 4.2 Lymph # (Auto) 2.5 Crisp # (Auto) 1.1 H Eos # (Auto) 0.2 Baso # (Auto) 0.0 Immature Gran # (Auto) 0.08 H Absolute Nucleated RBC 0.10 H Immature Gran % 1 H Nucleated RBC % 1 H PT 12.9 H INR 1.2 APTT 44.5 H D Sodium 139 Potassium 4.5 Chloride 103 Carbon Dioxide 27.6 Anion Gap 8 BUN 15 Creatinine 1.5 H D Estim Creat Clear Calc 50.5 L eGFR 39 L BUN/Creatinine Ratio 10 L Glucose 122 H Calculated Osmolality 279 Calcium 8.2 L Phosphorus 2.1 L Magnesium 1.8 Misc Test Result Platelets confirmed Blood Type B Positive Antibody Screen NEGATIVE Crossmatch See Detail Blood Bank Wristband ID Yes 05/24/25 10:07 WBC 8.4 RBC 2.58 L Hgb 8.3 L Hct 26.0 L MCV 101 H MCH 32.2 MCHC 31.9 RDW Std Deviation 73.5 H Plt Count 87 L D Neut % (Auto) 61 Lymph % (Auto) 23 Crisp % (Auto) 13 H Eos % (Auto) 2 Baso % (Auto) 0 Neut # (Auto) 5.1 Lymph # (Auto) 1.9 Crisp # (Auto) 1.1 H Eos # (Auto) 0.2 Baso # (Auto) 0.0 Immature Gran # (Auto) 0.10 H Absolute Nucleated RBC 0.05 H Immature Gran % 1 H Nucleated RBC % 1 H PT INR APTT Sodium Potassium Chloride Carbon Dioxide Anion Gap BUN Creatinine Estim Creat Clear Calc eGFR BUN/Creatinine Ratio Glucose Calculated Osmolality Calcium Phosphorus Magnesium Misc Test Result Blood Type Antibody Screen Crossmatch Blood Bank Wristband ID ABG Interpretation ABG results: 05/17/25 05/17/25 05/17/25 15:40 18:01 19:47 ABG pH 7.05 L* 7.11 L* 7.10 L* ABG pCO2 15 L* 24 L 28 L ABG pO2 229 H 241 H 441 H D ABG HCO3 4 L* 8 L* 9 L* ABG O2 Saturation 100 H 101 H 101 H ABG Base Excess -24 L -20 L -20 L 05/17/25 05/18/25 22:05 04:57 ABG pH 7.27 L D 7.46 H D ABG pCO2 33 31 L ABG pO2 208 H D 194 H ABG HCO3 15 L 22 ABG O2 Saturation 101 H 101 H ABG Base Excess -11 L -1 Quality Measures Quality Measures none Assessment & Plan Assessment Current Active Medications: Generic Name Dose Route Start Last Admin Trade Name Freq PRN Reason Stop Dose Admin Acetaminophen 650 mg 05/23/25 10:06 Acetaminophen 325 Mg Tablet PO 06/16/25 15:47 Q6H PRN PAIN 1-3 OR FEVER > 100.4 Hydrocodone Bitart/Acetaminophen 1 tab 05/23/25 10:06 05/23/25 23:10 Hydrocodone/Apap 5/325 Tablet PO 05/28/25 10:05 1 tab Q8HR PRN Administration PAIN SCALE 4-10(Mod-Sev Amiodarone HCl 200 mg 05/19/25 21:00 05/24/25 09:17 Amiodarone Hcl 200 Mg Tablet PO 06/18/25 20:59 200 mg BID RIANNA Administration Dextrose 25 ml 05/17/25 16:04 Dextrose 50%-Water Inj 50 Ml Syringe IV 06/16/25 16:03 Q15MIN PRN BG 50-70 responsive npo pt Dextrose 50 ml 05/17/25 16:04 Dextrose 50%-Water Inj 50 Ml Syringe IV 06/16/25 16:03 Q15MIN PRN BG <50 OR BG <70 & pt unresponsive Divalproex Sodium 250 mg 05/17/25 22:00 05/24/25 05:39 Divalproex Sod Ec 125 Mg Tabec PO 06/16/25 21:59 250 mg TID RIANNA Administration Epoetin Jemal 10,000 unit 05/19/25 16:45 05/23/25 20:01 Epoetin Jemal-Epbx Inj 10,000 Unit/Ml Vial (Non-Esrd) SC 06/18/25 16:44 10,000 unit MoTh RIANNA Administration Glucagon 1 mg 05/17/25 16:04 Glucagon Inj 1 Mg Vial IM Q15MIN PRN BG <70, and no IV access Heparin Sodium (Porcine) 3,300 unit 05/17/25 16:12 05/23/25 19:59 Heparin Sod Inj 1000 Unit/Ml Vial 10 Ml INDWELLCAT 05/31/25 16:11 3,300 unit PRN PRN Administration DIALYSIS Levothyroxine Sodium 50 mcg 05/18/25 06:00 05/24/25 05:39 Levothyroxine Sodium 25 Mcg Tablet PO 06/17/25 05:59 50 mcg ACBR RIANNA Administration Melatonin 3 mg 05/17/25 16:14 05/23/25 23:10 Melatonin 3 Mg Tablet PO 3 mg HS PRN Administration sleep Protocol Midodrine 10 mg 05/22/25 10:00 05/24/25 09:17 Midodrine 5 Mg Tablet PO 06/21/25 09:59 10 mg Q6H RIANNA Administration Ondansetron HCl 4 mg 05/20/25 11:14 05/23/25 05:06 Ondansetron Inj 2 Mg/Ml Inj 2 Ml IVP 06/19/25 11:13 4 mg Q8HR PRN Administration NAUSEA OR VOMITING Protocol Pharmacy Consult 1 each 05/18/25 08:27 Pharmacy Renal Dose Adjustment 1 Ea XX 06/17/25 08:26 PRN PRN CONSULT Sennosides 1 tab 05/21/25 07:56 05/21/25 08:10 Senna/Docusate Sod 1 Tab Tablet PO 06/20/25 07:55 1 tab QDAY PRN Administration CONSTIPATION Protocol Sodium Chloride 3 ml 05/17/25 13:24 05/17/25 13:36 Sodium Chloride Rt Cristina 0.9% 3 Ml Nebu INH 06/16/25 13:23 3 ml PRN PRN Administration SOLN Vitamin B Complex/Vit C/Folic Acid 1 tab 05/20/25 15:45 05/24/25 09:17 Vit B12/Vit C/Fa (Nephrovite) Tablet PO 06/19/25 15:44 1 tab QDAY RIANNA Administration Zinc Sulfate 220 mg 05/20/25 15:45 05/24/25 09:18 Zinc Sulfate 220 Mg Capsule PO 06/03/25 15:44 220 mg QDAY RIANNA Administration Plan Patient is a 64-year-old F with a PMH of cerebrovascular accident, atrial fibrillation, heart failure with reduced ejection fraction (25-30% in January 2023), chronic kidney disease (ON dialysis Friday, and Friday), and hypothyroidism who was sent from a SNF for worsening oxygen saturation. Patient received inpatient HD due to multiple metabolic abnormalities but developed pervasive and refractory hypotension during the session. No overnight events. Patient was examined at bedside; she is alert and oriented x 3 and repeats that she would like to go back to [facility] to see her who she misses. Pertinent labs today include hemoglobin drop to 8.5 from 10.6 yesterday and platelet count drop to 63 from 128; due to the above, patient's heparin DVT prophylaxis has been discontinued. Patient will receive her final dose of IV doxycycline 100 mg BID to complete a [id number] of antibiotics for her initial diagnosis of septic shock. Today, she was finally able to be weaned off of vasopressin while maintaining a MAP > 60 on only PO midodrine 10 mg QID and her atrial fibrillation rate seems improved (HR 80s). At this time, patient has been deemed clinically stabilized and will be downgraded to floors today. Upon eventual discharge, it is imperative that it be documented for patient's metformin to be discontinued and for her right femoral central line to be discontinued before discharge. NEURO #History of CVA w/ residual L-sided weakness Dx: -05/01/[address] w/o contrast showed large old infarct of R MCA and smaller old infarct of R cerebellar hemisphere which remains unchanged from similar findings on 09/10/15 Rx: -May consider antiplatelet therapy -May consider restarting patient's home PO AtorvaliQ 20 mg qD RRx: -Chronic condition without current acute ramifications CARDIO Undifferentiated shock, no longer requiring pressors During dialysis, patient developed a MAP of 58-61 and acute hypotension of 80/40 that was refractory to IV albumin and required pressor support (in the setting of severe lactic acidosis as well) Originally, shock was thought to be distributive in nature 2/2 septic inflammatory vasodilation but this seems less likely to be the primary contributor of hypotension now due to elevated SVR on NICOM On passive leg raise, SVI and CI mildly increased, indicating some level of fluid responsiveness On bedside echocardiogram, patient's IVC was non-collapsible (suggesting euvolemia), her contractile wall motion was adequate, and there were no pericardial effusions observed; this suggests that a cardiogenic etiology for patient's ongoing hypotension is less likely the primary contributor. There is also the question of whether the patient still remains in shock given her normal mentation and lack of other signs of hypoperfusion or if her normal baseline blood pressures are low due to poor heart function and she is chronically adapted for this pressure DDx: cardiogenic shock (EF 15-20%), hypovolemic shock, distributive shock, obstructive shock Dx: -05/23 Bedside echocardiogram showed that patient's IVC was non-collapsible (suggesting euvolemia), her contractile wall motion was adequate, and there were no pericardial effusions observed -05/21 NICOM readings: SVR 1345, SVI 23, CI 2.4 -05/21 NICOM readings (PLR): SVR 1345, SVI 27, CI 2.8 Rx: -Continue PO midodrine 10 mg QID to maintain MAP > 60 RRx: -Patient can finally sustain MAP > 60 without need of pressors today, allowing her to be downgraded to floors #Atrial fibrillation with RVR Per Cardiology note, patient has history of atrial fibrillation on Eliquis and previously took metoprolol XL 50 mg qD for rate control During previous hospitalization, patient experienced bradycardia and hypotension with metoprolol and was started on PO amiodarone 200 mg BID Currently suspect that atrial fibrillation with RVR is 2/2 severe lactic acidosis (LA 22.0) which itself was most likely due to metformin intake in the setting of severe renal impairment CHADSVASC score 4, 4.8% stroke risk per year HASBLED 3 Dx: -05/17 EKG showed atrial fibrillation with rapid ventricular response and heart rate 111, marked left axis deviation and bundle branch block, and QTc 492 -Other pertinent labs: (upon admission) lactic acid 22.0, potassium 6.1, CO2 less than 10.0, anion gap 32, BUN 27, creatinine 4.1, blood glucose 42, LDH 337, BNP 1945, ABG blood pH 7.05, HCO3 4 Rx: -Continue PO amiodarone 200 mg BID -Discontinued heparin drip @ 9.615 units/kg/hr -Continuous cardiac monitoring -Maintain K>4 and Mg>2 RRx: -Patient continues to have atrial fibrillation today but HR seems better controlled in the 80s #HFrEF (EF 15-20%, 04/2025) #Dilated cardiomyopathy Cardiology currently has low suspicion for HFrEF exacerbation Dx: -2022 echocardiogram showed dilated cardiomyopathy, severe global hypokinesis with estimated EF of 25-30%, normal RV size, mildly dilated LA, and mild MR -04/2025 echocardiogram shows dilated cardiomyopathy, moderately dilated LV, severe global hypokinesis and severe systolic dysfunction with estimated EF of 15-20%. It also showed normal RV size, reduced systolic function, RA estimated RVSP 45 mmHg, moderate pulmonary hypertension, moderate MR and mild TR, trace to mild AI, severely dilated LA, severely dilated RA, and mildly dilated ascending body measuring 3.9 cm -BNP 1944, Troponin I WNL Rx: -Per cardiology recommendations, plan to initiate GDMT once blood pressure can tolerate it but avoid SGLT-2 inhibitors due to patient's ESRD on HD status -Strict I's & O's and daily weights -Outpatient follow-up with cardiology for further management (may need defibrillator if HFrEF symptoms are refractory to GDMT for over 3 months and cardiac catheterization to rule out CAD as a cause of dilated cardiomyopathy) RRx: -Based on 05/21 NICOM, patient is possibly mildly hypovolemic; however, 05/23 bedside echocardiogram showed a non-collapsible IVC, possibly suggesting that patient is euvolemic now PULM No acute problems GI #Abdominal pain resolved) Patient's nausea and abdominal pain that started in the evening of 05/20 continued throughout the night and she received senna, Maalox, and Reglan (with Reglan seeming the most effective in treating her symptoms). Importantly, she had not had a bowel movement since 05/17. Now greatly improved on 05/22 after patient had 2 large BM's yesterday with the assistance of mineral oil enema, lactulose, colace, and senna. NEPHRO #ESRD on HD (//Fri), missed HD session #Hypophosphatemia Rx: -HD as indicated per nephrology recommendations (Dr. Landry) #Metformin-associated lactic acidosis (resolved) On presentation, patient had a lactic acid level of 22 which has now down- trended to 2.2. Patient's severely elevated lactic acid level of 22.0 upon admission had been tentatively attributed to hypoperfusion 2/2 septic shock from UTI but this explanation had not been very convincing as lactic acid elevations of this degree solely from septic shock without concomitant multi-organ failure would be highly unusual/atypical (usual ranges would be between 2 - 10). Per [facility] paper charts, patient had been receiving PO metformin 1000 mg BID between 05/11 - 05/16 despite her last recorded creatinine and eGFR on 05/11 being 3.1 and 16, respectively. It is very likely that patient's intake of metformin (which is absolutely contraindicated for creatinine above 1.4 or eGFR < 30), in the setting of severe renal impairment, led to severe lactic acidosis via its mechanism of increased lactate production from shunting towards anaerobic metabolism (along with poor renal clearance of metformin). DDx: minor contributions outside of [place] may include a combination of etiologies including tissue hypoperfusion 2/2 septic shock and/or cardiogenic shock, hypoglycemia-induced anaerobic metabolism, ESBL UTI, or bacteremia Dx: -ABG of the right radial artery showed pH 7.05, pCO2 15, PaO2 229, and HCO3 4. -Lactic acidosis has now down-trended from 22.0 to 2.2 _ ____ Rx: -Called [facility] and emphasized the importance of discontinuing patient's metformin PLEASE TAKE EXTRA CARE TO DOCUMENT THAT PATIENT'S METFORMIN BE DISCONTINUED ON DISCHARGE SUMMARY ALSO, PLEASE MAKE SURE RIGHT FEMORAL CENTRAL LINE IS DISCONTINUED BEFORE DISCHARGE _ ____ HEME #Chronic normocytic anemia Today, patient's hemoglobin dropped to 8.5 from 10.6 yesterday Dx: -05/19 iron panel: iron 17, TIBC 163, iron sat 10, unsat iron binding 146 (likely mixed NELDA + ACD) -Type and screen completed Rx: -Discontinued heparin drip (second time it needed to be discontinued due to drops in hemoglobin and / or platelet count) -Transfuse with pRBC if hemoglobin < 7 RRx: -Currently, no active signs of bleeding #Thrombocytopenia Today, patient's platelet count dropped to 63 from 128 yesterday Rx: -Discontinued heparin drip (second time it needed to be discontinued due to drops in hemoglobin and / or platelet count) -Continue to monitor CBC Leukocytosis (resolved) DDx: UTI, reactive Dx: -WBC down-trended to 8.4 from 9.9 ENDO #Hypothyroidism Dx: -TSH 5.31 Rx: -Continue home levothyroxine (dose may need to be increased) ID Complicated UTI Sterile pyuria Of note, patient was apparently discharged on 05/11/25 for nausea/vomiting/abdominal pain 2/2 septic shock 2/2 E.coli UTI and also has PMH of ESBL UTI Although patient had a negative urine culture, results and continue antibiotics as she recently completed a course and this may have contributed to her negative result. Dx: -UA showed cloudy, light orange urine with pH 5.5, 1+ protein, 1+ ketones, 3+ blood, negative nitrate, positive leukocyte esterase, RBC 82, and WBC 1329. -Urine culture showed contamination, final -Blood cultures showed no bacterial growth x 48 hours, preliminary -Patient denies having any urinary symptoms Rx: -Last dose of IV doxycycline 100 mg BID today (completing 5-pfr-jixkroz of antibiotics) -Discontinued IV meropenem 500 mg qD [05/17?05/20] RRx: -Patient has not complained of any urinary symptoms MSK #Prevention of ICU-acquired weakness -Add PT evaluation and encourage patient to mobilize and ambulate SKIN #Decubitus ulcer on L LE Present on admission Rx: -Wound care as needed Disposition: No longer requires continued ICU management due to successful weaning of IV vasopressin to maintain MAP > 60 DVT prophylaxis: None (discontinued heparin today due to drop in hemoglobin and platelet count) GI prophylaxis: None Diet: Renal Turner: Lines: Peripheral IV, (MAKE SURE RIGHT FEMORAL CENTRAL LINE IS DISCONTINUED BEFORE DISCHARGE) Antibiotics: Doxycycline CODE STATUS: FULL Plan of care discussed with Attending Dr. Arcadio Beasley, DO Internal Medicine, PGY-1
--- NOTE | 2025-05-24 13:26 | ESPR_ITS ---
<Statement entered by Hermes Bernard MD - 05/24/25 17:04> ICU downgrade after requiring pressors for shock of unknown etiology. She has been off pressors for last 24 hours and now on midodrine 10 mg 4 times daily. ESRD patient with normal schedule of T/Th/Sat. Was also receiving antibiotics for UTI but less day was today. Vitals show BP 92/58, saturating 100% on 1 L nasal cannula but otherwise stable. CBC shows no leukocytosis, hemoglobin 8.3 from 8.5 yesterday and received 2 units PRBC to keep above 8. CHEM panel consistent with ESRD. Otherwise we will continue current management of amiodarone and Eliquis for A-fib, ESRD with dialysis, and midodrine for low blood pressure. ----- Note reviewed and agree with care plan as documented. Please refer to the note below for further details. Plan discussed with attending physician Dr. Edmond Bernard MD PGY-2 Internal Medicine Documentation for date of: 05/24/25 Subjective Subjective Interval history: Patient had missed HD on day of admission (normal schedule T//Sat) and was given emergency HD d/t lactic acidosis w/ hyperkalemia during which time she desaturated to 80s%. RR was called amd she was stabilized initially before becoming hypotensive. A second RR was called and she was placed under ICU care. Being downgraded today now that BP/MAP and O2 requirements have stabilized and off pressors for 24 hours. Telemetry showed atrial fibrillation rate 80s, blood pressure 70s to 100s on midodrine 10 mg QID, saturating 99% on 1 L NC. No overnight events. Patient is pleasant, conversational, without acute concerns. She denies chest pain, abdominal pain, SOB, fever, chills, n/v/d, lightheadedness, fatigue. Nephrology Dr. Landry (for ESRD) and cardiology Dr. Barcenas (for AFIB w/ RVR) have been consulted and are following. Exam Vital Signs Temp Pulse Resp BP Pulse Ox O2 Del Method O2 Flow Rate 97 F 72 16 93/51 L 100 Nasal Cannula 1 05/24/25 12:00 05/24/25 12:05/24/25 12:05/24/25 12:00 05/24/25 12:00 05/24/25 08:01 05/24/25 08:01 FiO2 40 05/18/25 08:14 Narrative Exam General: AOx3, no acute distress, able to speak full sentences. Appears far older than actual age. HEENT: NC/AT, mucous membranes dry, bilateral sclera anicteric Cardiovascular: irregularly irregular rate and rhythm consistent w/ AFIB, no murmurs appreciated. R Femoral Line in place. Pulmonary: clear to auscultation bilaterally, no rales/rhonchi/wheezes Abdominal: soft, non-tender, non-distended, no rebound/guarding, normal bowel sounds present Musculoskeletal: normal ROM. swollen b/l UEs and LEs, 3+ pitting edema of b/l LEs. Skin: warm and dry, intact, no rashes Neuro: 4/5 strength of R extremities, 0/5 strength of L extremities/unable to move L extremities. Objective Labs 05/24/25 10:07 05/24/25 04:40 Labs: Laboratory Results - last 24 hr 05/23/25 05/23/25 05/24/25 14:07 20:40 04:40 WBC 8.1 RBC 2.64 L Hgb 10.6 L D 8.5 L D Hct 32.8 L 25.9 L MCV 98 MCH 32.2 MCHC 32.8 RDW Std Deviation 70.6 H Plt Count 63 L D Neut % (Auto) 52 Lymph % (Auto) 31 Saunders % (Auto) 14 H Eos % (Auto) 2 Baso % (Auto) 0 Neut # (Auto) 4.2 Lymph # (Auto) 2.5 Saunders # (Auto) 1.1 H Eos # (Auto) 0.2 Baso # (Auto) 0.0 Immature Gran # (Auto) 0.08 H Absolute Nucleated RBC 0.10 H Immature Gran % 1 H Nucleated RBC % 1 H PT 12.9 H INR 1.2 APTT 44.5 H D Sodium 139 Potassium 4.5 Chloride 103 Carbon Dioxide 27.6 Anion Gap 8 BUN 15 Creatinine 1.5 H D Estim Creat Clear Calc 50.5 L eGFR 39 L BUN/Creatinine Ratio 10 L Glucose 122 H Calculated Osmolality 279 Calcium 8.2 L Phosphorus 2.1 L Magnesium 1.8 Misc Test Result Platelets confirmed Blood Type B Positive Antibody Screen NEGATIVE Crossmatch See Detail Blood Bank Wristband ID Yes 05/24/25 10:07 WBC 8.4 RBC 2.58 L Hgb 8.3 L Hct 26.0 L MCV 101 H MCH 32.2 MCHC 31.9 RDW Std Deviation 73.5 H Plt Count 87 L D Neut % (Auto) 61 Lymph % (Auto) 23 Saunders % (Auto) 13 H Eos % (Auto) 2 Baso % (Auto) 0 Neut # (Auto) 5.1 Lymph # (Auto) 1.9 Saunders # (Auto) 1.1 H Eos # (Auto) 0.2 Baso # (Auto) 0.0 Immature Gran # (Auto) 0.10 H Absolute Nucleated RBC 0.05 H Immature Gran % 1 H Nucleated RBC % 1 H PT INR APTT Sodium Potassium Chloride Carbon Dioxide Anion Gap BUN Creatinine Estim Creat Clear Calc eGFR BUN/Creatinine Ratio Glucose Calculated Osmolality Calcium Phosphorus Magnesium Misc Test Result Blood Type Antibody Screen Crossmatch Blood Bank Wristband ID ABG Interpretation ABG results: 05/17/25 05/17/25 05/17/25 15:40 18:01 19:47 ABG pH 7.05 L* 7.11 L* 7.10 L* ABG pCO2 15 L* 24 L 28 L ABG pO2 229 H 241 H 441 H D ABG HCO3 4 L* 8 L* 9 L* ABG O2 Saturation 100 H 101 H 101 H ABG Base Excess -24 L -20 L -20 L 05/17/25 05/18/25 22:05 04:57 ABG pH 7.27 L D 7.46 H D ABG pCO2 33 31 L ABG pO2 208 H D 194 H ABG HCO3 15 L 22 ABG O2 Saturation 101 H 101 H ABG Base Excess -11 L -1 Quality Measures Quality Measures none Assessment & Plan Assessment Current Active Medications: Generic Name Dose Route Start Last Admin Trade Name Freq PRN Reason Stop Dose Admin Acetaminophen 650 mg 05/23/25 10:06 Acetaminophen 325 Mg Tablet PO 06/16/25 15:47 Q6H PRN PAIN 1-3 OR FEVER > 100.4 Hydrocodone Bitart/Acetaminophen 1 tab 05/23/25 10:06 05/23/25 23:10 Hydrocodone/Apap 5/325 Tablet PO 05/28/25 10:05 1 tab Q8HR PRN Administration PAIN SCALE 4-10(Mod-Sev Amiodarone HCl 200 mg 05/19/25 21:00 05/24/25 09:17 Amiodarone Hcl 200 Mg Tablet PO 06/18/25 20:59 200 mg BID RIANNA Administration Dextrose 25 ml 05/17/25 16:04 Dextrose 50%-Water Inj 50 Ml Syringe IV 06/16/25 16:03 Q15MIN PRN BG 50-70 responsive npo pt Dextrose 50 ml 05/17/25 16:04 Dextrose 50%-Water Inj 50 Ml Syringe IV 06/16/25 16:03 Q15MIN PRN BG <50 OR BG <70 & pt unresponsive Divalproex Sodium 250 mg 05/17/25 22:00 05/24/25 05:39 Divalproex Sod Ec 125 Mg Tabec PO 06/16/25 21:59 250 mg TID RIANNA Administration Epoetin Jemal 10,000 unit 05/19/25 16:45 05/23/25 20:01 Epoetin Jemal-Epbx Inj 10,000 Unit/Ml Vial (Non-Esrd) SC 06/18/25 16:44 10,000 unit MoTh RIANNA Administration Glucagon 1 mg 05/17/25 16:04 Glucagon Inj 1 Mg Vial IM Q15MIN PRN BG <70, and no IV access Heparin Sodium (Porcine) 3,300 unit 05/17/25 16:12 05/23/25 19:59 Heparin Sod Inj 1000 Unit/Ml Vial 10 Ml INDWELLCAT 05/31/25 16:11 3,300 unit PRN PRN Administration DIALYSIS Levothyroxine Sodium 50 mcg 05/18/25 06:00 05/24/25 05:39 Levothyroxine Sodium 25 Mcg Tablet PO 06/17/25 05:59 50 mcg ACBR RIANNA Administration Melatonin 3 mg 05/17/25 16:14 05/23/25 23:10 Melatonin 3 Mg Tablet PO 3 mg HS PRN Administration sleep Protocol Midodrine 10 mg 05/22/25 10:00 05/24/25 09:17 Midodrine 5 Mg Tablet PO 06/21/25 09:59 10 mg Q6H RIANNA Administration Ondansetron HCl 4 mg 05/20/25 11:14 05/23/25 05:06 Ondansetron Inj 2 Mg/Ml Inj 2 Ml IVP 06/19/25 11:13 4 mg Q8HR PRN Administration NAUSEA OR VOMITING Protocol Pharmacy Consult 1 each 05/18/25 08:27 Pharmacy Renal Dose Adjustment 1 Ea XX 06/17/25 08:26 PRN PRN CONSULT Sennosides 1 tab 05/21/25 07:56 05/21/25 08:10 Senna/Docusate Sod 1 Tab Tablet PO 06/20/25 07:55 1 tab QDAY PRN Administration CONSTIPATION Protocol Sodium Chloride 3 ml 05/17/25 13:24 05/17/25 13:36 Sodium Chloride Rt Cristina 0.9% 3 Ml Nebu INH 06/16/25 13:23 3 ml PRN PRN Administration SOLN Vitamin B Complex/Vit C/Folic Acid 1 tab 05/20/25 15:45 05/24/25 09:17 Vit B12/Vit C/Fa (Nephrovite) Tablet PO 06/19/25 15:44 1 tab QDAY RIANNA Administration Zinc Sulfate 220 mg 05/20/25 15:45 05/24/25 09:18 Zinc Sulfate 220 Mg Capsule PO 06/03/25 15:44 220 mg QDAY RIANNA Administration Plan Hollie Whaley is a 64-year-old female with a history of a-fib on amiodarone and eliquis, ESRD (T//Fri, follows Dr. Landry), HFrEF, hypothyroidism who was admitted for lactic acidosis and requiring emergent hemodialysis on 05/17/25. Developed refractory hypotension and confusion 30 minutes into HD and is s/p x2 rapid responses on 05/17/25 requiring ICU level care for pressors, sedation, intubation. She has since been extubated and weaned off pressors and downgraded to medical floors on 05/24/25. #Metformin-associated lactic acidosis (resolved) #Shock, unknown etiology, resolved BP has been in 70s-100s SBP and MAP has been >60 since 05/23/25. Relatively hemodynamically stable currently w/ midodrine 10 mg PO QID. On admission, ABG 7.05/15/229/4, K 6.1, bicarb <10, AG 32, BUN 27, Cr 4.1, glucose 42, lactic acid 22, Mg 2.2, LDH 337, trop 0.023, BNP 1945. Etiology of shock is thus far unknown, per cardio unlikely cardiogenic despite severe HFrEF d/t negative admit troponins. Currently initial lactic acidosis is thought to be 2/2 metformin use vs infectious source. CHADSVASC score 4, 4.8% stroke risk per year HASBLED 3 - Midodrine 10 mg po QID #Atrial fibrillation with RVR History of a-fib on eliquis, previously reacted poorly to metoprolol for rate control and was started on amiodarone 200 mg BID. A-fib is chronic and persistent and during this hospitalization, per cardio, likely 2/2 severe lactic acidosis which has since resolved per latest ABG. s/p IV amiodarone (05/17-05/18) - Amiodarone 200 mg po BID per cardio recs - Avoid metoprolol d/t previous admission hypotension and bradycardia post- administration - Heparin drip DC'd as hemoglobin dropped from 10 to 8.5 - Pending repeat H&H, will restart heparin drip versus Eliquis - Keep K > 4 and Mg > 2 #Acute on chronic normo-/macrocytic anemia #Iron deficiency anemia s/p 2 pRBC (05/19, 05/23) #? Occult bleed Patient has a history of chronic anemia baseline hemoglobin ~7.5 to 10. Iron studies consistently low. Peripheral blood smear shows macrocytic anemia, mild thrombocytopenia, mature neutrophils with unremarkable morphology likely nutritional deficiency per cardio. No overt signs of bleeding (relatively hemodynamically stable), current thinking is anemia most likely 2/2 ESRD + various comorbidities. s/p pRBC x2 05/19 and 05/23. - Follow-up H&H at 10 PM - IV iron infusion on dialysis days given ESRD #HFrEF (15-20% 04/2025) #Dilated cardiomyopathy Patient endorses remote occasional cocaine use for only one year. Denies previous AR, having ever seen a it technical support specialist or ever having a cardiac catheterization done. Per brother, atrial fibrillation runs in the family, unsure of heart failure or cardiac . Latest echo 04/2025 shows dilated cardiomyopathy, severe global hypokinesis, LVEF 15-20%. - Initiate GDMT as tolerated, at this time hold off d/t persistent hypotension - Consider AICD placement should pt not respond to max GDMT for more than 3 months per Cardio recs. - Strict I&O and daily weights - Continue to follow up outpatient for further management #ESRD on HD (/Fri) - Nephro following - Avoid nephrotoxic agents, renally dose medications #Leukocytosis (resolved) #Nephrolithiasis #Hypothyroidism #Hx CVA #Mood disorder ? All stable, FU as outpt Hospital management: Disposition: Monitor BP on midodrine, consider DC if stable Diet: Renal Diet Lines: Central Line R Femoral DVT prophylaxis: Eliquis CODE STATUS: full code/DNR ----- Plan discussed with attending physician Dr. Pruitt and senior resident Dr. Marco Antonio Lira, Medical Student SIShreya Attending Provider Attestation/Addendum I attest that I was physically present for the evaluation, physical examination, lab and imaging review of the patient with the residents. I discussed the case with the residents and agree with the findings and plans of care as documented above. Patient is seen and examined at bedside this afternoon. Patient is a 64 years old female with past medical history of A-fib on Xarelto, ESRD on hemodialysis, HFrEF, CVA with left-sided deficits and left staghorn calculus who initially presented to the ED with complaint of shortness of breath. Patient was then admitted to ICU as she was found to have severe anion gap metabolic acidosis, lactic acidosis likely secondary to metformin and shock requiring vasopressor support. This afternoon, appears comfortable and denies any new complaints. Vital signs are stable, although blood pressure is on the softer side. Lab results show BUN/creatinine of 15/1.5, pO4 2.1. She has been off of vasopressors, lactic acid has down trended. Continues to be on midodrine every 6 hour. Heparin was held as patient had decreasing hemoglobin, no obvious source of bleeding noted, we will obtain follow up Hb level this evening and decine on resuming anticoagulation. Cardiology following closely, appreciate recommendations. Patient also has iron deficiency anemia we will order iron infusion after HD tomorrow. Nephrology following closely, appreciate recommendations. Anahi Pruitt MD
--- NOTE | 2025-05-24 14:15 | ESPR_ITS ---
Documentation for date of: 05/24/25 Subjective Subjective Interval history: Patient seen and examined in ICU. Telemetry reviewed, atrial fibrillation rate 80s. Blood pressure 70 100/50 to 60s on midodrine 10 mg every 6 hours. Saturating 99% on 1 L. Patient is feeling well today, denies chest pain, chest pressure or palpitations. No new complaints. Requests to go home to . Patient is to be downgraded to floors today. Patient received 1 unit of blood during CRRT hemoglobin from 7.9-10 0.6-8.5. Platelets decreased from 1 28-63. Potassium 4.5, creatinine 1 to 1.5, magnesium 1.8, phosphorus 2.1. Exam Vital Signs Temp Pulse Resp BP Pulse Ox O2 Del Method O2 Flow Rate 97.2 F 75 16 90/51 L 100 Nasal Cannula 1 05/24/25 13:00 05/24/25 13:00 05/24/25 13:00 05/24/25 13:00 05/24/25 13:00 05/24/25 13:00 05/24/25 13:00 FiO2 40 05/18/25 08:14 Narrative Exam GENERAL: Sleepy and oriented x3 appears older than stated age HEENT: NC/AT, mucous membranes dry, bilateral sclera anicteric CARDIOVASCULAR: irregular rhythm, regular rate, no murmurs able to be appreciated, R IJ TDC in place with dried blood, R femoral line in place PULMONARY: distant breath sounds bilaterally, no rales/rhonchi/wheezes ABDOMINAL: soft, non-tender, non-distended, no rebound/guarding, bowel sounds present EXTREMITIES: 3+ pitting edema of LLE, trace pitting edema RLE, L heel wound wrapped, contracture of L hand, 0/5 strength in LUE and LLE, 4/5 strength RUE and RLE SKIN: LLE wound NEURO: alert, following commands Objective Labs 05/24/25 10:07 05/24/25 04:40 Labs: Laboratory Results - last 24 hr 05/23/25 05/23/25 05/24/25 14:07 20:40 04:40 WBC 8.1 RBC 2.64 L Hgb 10.6 L D 8.5 L D Hct 32.8 L 25.9 L MCV 98 MCH 32.2 MCHC 32.8 RDW Std Deviation 70.6 H Plt Count 63 L D Neut % (Auto) 52 Lymph % (Auto) 31 [place] % (Auto) 14 H Eos % (Auto) 2 Baso % (Auto) 0 Neut # (Auto) 4.2 Lymph # (Auto) 2.5 [place] # (Auto) 1.1 H Eos # (Auto) 0.2 Baso # (Auto) 0.0 Immature Gran # (Auto) 0.08 H Absolute Nucleated RBC 0.10 H Immature Gran % 1 H Nucleated RBC % 1 H PT 12.9 H INR 1.2 APTT 44.5 H D Sodium 139 Potassium 4.5 Chloride 103 Carbon Dioxide 27.6 Anion Gap 8 BUN 15 Creatinine 1.5 H D Estim Creat Clear Calc 50.5 L eGFR 39 L BUN/Creatinine Ratio 10 L Glucose 122 H Calculated Osmolality 279 Calcium 8.2 L Phosphorus 2.1 L Magnesium 1.8 Misc Test Result Platelets confirmed Blood Type B Positive Antibody Screen NEGATIVE Crossmatch See Detail Blood Bank Wristband ID Yes 05/24/25 10:07 WBC 8.4 RBC 2.58 L Hgb 8.3 L Hct 26.0 L MCV 101 H MCH 32.2 MCHC 31.9 RDW Std Deviation 73.5 H Plt Count 87 L D Neut % (Auto) 61 Lymph % (Auto) 23 [place] % (Auto) 13 H Eos % (Auto) 2 Baso % (Auto) 0 Neut # (Auto) 5.1 Lymph # (Auto) 1.9 [place] # (Auto) 1.1 H Eos # (Auto) 0.2 Baso # (Auto) 0.0 Immature Gran # (Auto) 0.10 H Absolute Nucleated RBC 0.05 H Immature Gran % 1 H Nucleated RBC % 1 H PT INR APTT Sodium Potassium Chloride Carbon Dioxide Anion Gap BUN Creatinine Estim Creat Clear Calc eGFR BUN/Creatinine Ratio Glucose Calculated Osmolality Calcium Phosphorus Magnesium Misc Test Result Blood Type Antibody Screen Crossmatch Blood Bank Wristband ID ABG Interpretation ABG results: 05/17/25 05/17/25 05/17/25 15:40 18:01 19:47 ABG pH 7.05 L* 7.11 L* 7.10 L* ABG pCO2 15 L* 24 L 28 L ABG pO2 229 H 241 H 441 H D ABG HCO3 4 L* 8 L* 9 L* ABG O2 Saturation 100 H 101 H 101 H ABG Base Excess -24 L -20 L -20 L 05/17/25 05/18/25 22:05 04:57 ABG pH 7.27 L D 7.46 H D ABG pCO2 33 31 L ABG pO2 208 H D 194 H ABG HCO3 15 L 22 ABG O2 Saturation 101 H 101 H ABG Base Excess -11 L -1 Quality Measures Quality Measures none Assessment & Plan Assessment Current Active Medications: Generic Name Dose Route Start Last Admin Trade Name Freq PRN Reason Stop Dose Admin Acetaminophen 650 mg 05/23/25 10:06 Acetaminophen 325 Mg Tablet PO 06/16/25 15:47 Q6H PRN PAIN 1-3 OR FEVER > 100.4 Hydrocodone Bitart/Acetaminophen 1 tab 05/23/25 10:06 05/23/25 23:10 Hydrocodone/Apap 5/325 Tablet PO 05/28/25 10:05 1 tab Q8HR PRN Administration PAIN SCALE 4-10(Mod-Sev Amiodarone HCl 200 mg 05/19/25 21:00 05/24/25 09:17 Amiodarone Hcl 200 Mg Tablet PO 06/18/25 20:59 200 mg BID RIANNA Administration Dextrose 25 ml 05/17/25 16:04 Dextrose 50%-Water Inj 50 Ml Syringe IV 06/16/25 16:03 Q15MIN PRN BG 50-70 responsive npo pt Dextrose 50 ml 05/17/25 16:04 Dextrose 50%-Water Inj 50 Ml Syringe IV 06/16/25 16:03 Q15MIN PRN BG <50 OR BG <70 & pt unresponsive Divalproex Sodium 250 mg 05/17/25 22:00 05/24/25 13:34 Divalproex Sod Ec 125 Mg Tabec PO 06/16/25 21:59 250 mg TID RIANNA Administration Epoetin Jemal 10,000 unit 05/19/25 16:45 05/23/25 20:01 Epoetin Jemal-Epbx Inj 10,000 Unit/Ml Vial (Non-Esrd) SC 06/18/25 16:44 10,000 unit MoTh RIANNA Administration Glucagon 1 mg 05/17/25 16:04 Glucagon Inj 1 Mg Vial IM Q15MIN PRN BG <70, and no IV access Heparin Sodium (Porcine) 3,300 unit 05/17/25 16:12 05/23/25 19:59 Heparin Sod Inj 1000 Unit/Ml Vial 10 Ml INDWELLCAT 05/31/25 16:11 3,300 unit PRN PRN Administration DIALYSIS Levothyroxine Sodium 50 mcg 05/18/25 06:00 05/24/25 05:39 Levothyroxine Sodium 25 Mcg Tablet PO 06/17/25 05:59 50 mcg ACBR RIANNA Administration Melatonin 3 mg 05/17/25 16:14 05/23/25 23:10 Melatonin 3 Mg Tablet PO 3 mg HS PRN Administration sleep Protocol Midodrine 10 mg 05/22/25 10:00 05/24/25 09:17 Midodrine 5 Mg Tablet PO 06/21/25 09:59 10 mg Q6H RIANNA Administration Ondansetron HCl 4 mg 05/20/25 11:14 05/23/25 05:06 Ondansetron Inj 2 Mg/Ml Inj 2 Ml IVP 06/19/25 11:13 4 mg Q8HR PRN Administration NAUSEA OR VOMITING Protocol Pharmacy Consult 1 each 05/18/25 08:27 Pharmacy Renal Dose Adjustment 1 Ea XX 06/17/25 08:26 PRN PRN CONSULT Sennosides 1 tab 05/21/25 07:56 05/21/25 08:10 Senna/Docusate Sod 1 Tab Tablet PO 06/20/25 07:55 1 tab QDAY PRN Administration CONSTIPATION Protocol Sodium Chloride 3 ml 05/17/25 13:24 05/17/25 13:36 Sodium Chloride Rt Cristina 0.9% 3 Ml Nebu INH 06/16/25 13:23 3 ml PRN PRN Administration SOLN Vitamin B Complex/Vit C/Folic Acid 1 tab 05/20/25 15:45 05/24/25 09:17 Vit B12/Vit C/Fa (Nephrovite) Tablet PO 06/19/25 15:44 1 tab QDAY RINANA Administration Zinc Sulfate 220 mg 05/20/25 15:45 05/24/25 09:18 Zinc Sulfate 220 Mg Capsule PO 06/03/25 15:44 220 mg QDAY RIANNA Administration Plan Hollie Whaley 64F with pmhx significant for CVA, atrial fibrillation on Xarelto, HFrEF (15-20% 04/2025), newly ESRD on HD (TThSat), hypothyroidism who presented to [facility] ED on 05/17 for SOB, admitted for lactic acidosis with hyperkalemia. Emergent HD begun, however 30 minutes into HD, patient became hypotensive and progressively confused. Patient was then admitted to ICU where she was subsequently placed on pressors and intubated. Cardiology consulted for management of atrial fibrillation with RVR. #Atrial fibrillation RVR 2/ #Metformin associated lactic acidosis #Shock, unknown etiology #Hx of atrial fibrillation Patient has a history of A-fib on Eliquis and previously took metoprolol XL 50 mg QD for rate control and on previous hospitalization, patient experienced bradycardia and hypotension with metoprolol and was started on amiodarone 200 mg BID. Admission labs ABG 7.05/15/229/4, K 6.1, bicarb <10, AG 32, BUN 27, Cr 4.1, glucose 42, lactic acid 22, Mg 2.2, LDH 337, trop 0.023, BNP 1945. Unlikely cardiogenic shock as in spite of patient having severe HFrEF, admission troponins are negative. EKG shows afib RVR rate 111 with left axis deviation. 05/18/25 Patient was intubated and tele in ICU showed atrial fibrillation RVR 120-130s. Atrial fibrillation RVR likely secondary to severe lactic acidosis. Ddx for lactic acidosis includes, ESBL UTI, TDC infection, bacteremia, medication s/e. CHADSVASC score 4, 4.8% stroke risk per year HASBLED 3 s/p IV amiodarone (05/17-05/18) Plan: ? We recommend another pRBC transfusion to help increase blood pressure and also decrease tachycardia - PO amiodarone 200 mg BID as patient is now able to tolerate oral and given patient hx of atrial fibrillation as well as low EF and to decrease arrhythmias such as VT and VF risk as pt does have dilated cardiomyopathy - Patient was previously given metoprolol on past admission and patient experienced hypotension and bradycardia, recommend to avoid metoprolol at this time - Monitor QTc closely - Continue heparin drip for anticoagulation over Eliquis as heparin is more convenient to stop if patient requires surgery, drop in Hgb or further operations - Consider restarting Eliquis once patient has been downgraded to floors - Telemetry/ICU for cardiac monitoring - Keep K>4 and Mg>2 #HFrEF (15-20% 04/2025) #Dilated cardiomyopathy Patient endorses remote occasional cocaine use for only one year. Denies previous SD, having ever seen a information systems audit manager or ever having a cardiac catheterization done. Per brother, atrial fibrillation runs in the family, unsure of heart failure or cardiac . 2022 Echocardiogram shows dilated cardiomyopathy, severe global hypokinesis with estimated EF 25 to 30%, normal RV size, LA mildly dilated, mild MR. 04/2025 Echocardiogram shows dilated cardiomyopathy, moderately dilated LV, severe global hypokinesis and severe systolic dysfunction estimated EF 15 to 20%. Normal RV size, reduced systolic function. RA estimated RVSP 45 mmHg, moderate pulmonary hypertension, moderate MR and mild TR, trace to mild AI, LA severely dilated, RA severely dilated, mildly dilated ascending body measuring 3.9 cm Plan: - Plan to initiate GDMT once blood pressure tolerates however avoid SGLT2 inhibitors due to current dialysis status - Strict I&O and daily weights - Continue to follow up outpatient for further management - May need defibrilator due severe HFrEF if pt does not respond to maximum GDMT for more 3 months - Considering cardiac catheterization as a cause of dilated cardiomyopathy (if not performed before) prior to discharge however patient has been bed bound for a long time due to bilateral foot drop and LLE weakness and cardiac catheterization may not be indicated #Iron deficiency anemia s/p 2 pRBC (05/19, 05/23) #Acute macrocytic anemia Patient has a history of chronic anemia baseline hemoglobin ~7.5 to 10. Iron studies all low: Iron 17, TIBC 163 iron sat 10, unsat iron binding 146. Peripheral blood smear shows macrocytic anemia, mild thrombocytopenia, mature neutrophils with unremarkable morphology likely nutritional deficiency Currently no signs of overt bleeding, likely secondary to ESRD as well as chronic comorbidities. Plan: - Recommend IV iron infusion once downgraded to floors - CTM Hgb #ESRD on HD (//Fri) #Hypotension 2/2 sepsis #Leukocytosis #Nephrolithiasis #Hypothyroidism #CVA #Mood disorder Plan: ? Patient is getting CRRT - Above managed by primary team Thank you for your consultation and allowing participation in patient's care. Plan of care discussed with attending Dr. Swapna August, DO PGY-1 Internal Medicine Attending Provider Attestation/Addendum I have personally seen and examined the patient separately on the above date of service and discussed the plan of care with the resident. I reviewed the resident Dr. Donya August consultation progress note and agree with the resident findings and plan in the note above and have also edited the documentation to reflect my findings and plan. Bishnu Barcenas M.D. Interventional Cardiology
--- NOTE | 2025-05-24 14:58 | ECHO_ITS ---
Transthoracic Echo Report Ht (in): 72 Wt (lb): 223 Exam Location: Echo Lab Status: Inpatient [employer] Director: Dayna Emery Indications: Procedure Performed: BP: 139 / 89 HR: 90 MEASUREMENTS (Male / Female) Normal Values 2D ECHO LV Diastolic Diameter PLAX 5.5 cm 4.2 - 5.9 / 3.9 - 5.3 cm LV Systolic Diameter PLAX 5.2 cm IVS Diastolic Thickness 1.0 cm 0.6 - 1.0 / 0.6 - 0.9 cm LVPW Diastolic Thickness 1.1 cm 0.6 - 1.0 / 0.6 - 0.9 cm LV Relative Wall Thickness 0.4 LV Ejection Fraction MOD BP 31.6 % >= 55 % LV Cardiac Index MOD BP 2828.8 cm?/min?m? LV Ejection Fraction MOD 4C 17.1 % LV Cardiac Index MOD 4C 1453.7 cm?/min?m? LV Ejection Fraction 4C AL 18.8 % LV Cardiac Index 4C AL 1707.7 cm?/min?m? LV Ejection Fraction MOD 2C 42.9 % LV Cardiac Index MOD 2C 3928.9 cm?/min?m? LV Ejection Fraction 2C AL 44.7 % LV Cardiac Index 2C AL 4195.8 cm?/min?m? DOPPLER AV Peak Velocity 165.0 cm/s AV Peak Gradient 10.9 mmHg AV Mean Gradient 5.0 mmHg AV Velocity Time Integral 31.2 cm LVOT Peak Velocity 127.0 cm/s LVOT Peak Gradient 6.5 mmHg LVOT Velocity Time Integral 18.6 cm TR Peak Velocity 263.7 cm/s TR Peak Gradient 27.8 mmHg FINDINGS Left Ventricle Dilated Cardiomyopathy, Moderately dilated LV. Severe global hypokinesis and severe systolic dysfunction. Estimated EF 15-20% Right Ventricle Normal RV size, reduced systolic function. Estimated RVSP 45 mmHg. ModerateHTN Left Atrium LA severely dilated. Right Atrium RA mildly dilated. Atrial Septum The interatrial septum appears normal with no evidence of a shunt. Aorta The aorta is normal by two-dimensional, color flow and Doppler interrogation. Mitral Valve The mitral valve is normal by two-dimensional, color flow and Doppler interrogation. Moderate mitral regurgitation. Aortic Valve The aortic valve is trileaflet and normal by two-dimensional, color flow and Doppler interrogation. Trace to mild aortic valve regurgitation. Tricuspid Valve The tricuspid valve is normal by two-dimensional, color flow and Doppler interrogation.there is mild to moderate tricuspid valve regurgitation. Pulmonic Valve The pulmonic valve is not well visualized. There is no significant pulmonic valve regurgitation. Vessels The pulmonary artery appears normal. The inferior vena cava pulmonary and hepatic veins appear normal. Pericardium The pericardium is normal by two-dimensional imaging. There is no significant pericardial effusion. CONCLUSIONS Indication: HFrEF Dilated Cardiomyopathy, Moderately dilated LV. Severe global hypokinesis and severe systolic dysfunction. Estimated EF 20-25% Normal RV size, reduced systolic function. Estimated RVSP 45 mmHg. Moderate pulmonary hypertension. Moderate MR and mild TR. trace to mild AI. LA severely dilated. RA mildly dilated. Bishnu Barcenas (Electronically Signed) Final Date: 25 May 2025 17:19
--- NOTE | 2025-05-24 16:23 | EKG_ITS ---
[facility] Test Date: 2025-05-24 Pat Name: RUBÉN VIVAR Department: Room: S269A Gender: Female Extruder: TONY SORIANOB: 1960 Requested By: Hermes Bernard Order Number: [id number] Reading MD: Hermes Bernard Measurements Intervals House Rate: 95 P: [place]: QRS: -25 QRSD: 139 T: 142 QT: 392 QTc: 493 Interpretive Statements ATRIAL FIBRILLATION INTRAVENTRICULAR CONDUCTION DELAY VOLTAGE CRITERIA FOR LVH Compared to ECG 05/17/2025 15:58:32 Intraventricular conduction delay now present Left ventricular hypertrophy now present Left-axis deviation no longer present Left bundle-branch block no longer present /store/S0/[id number]/[id number].pdf
--- NOTE | 2025-05-24 16:48 | PC.SS ---
Update: Patient downgraded to Tele on 05-24-25 from ICU.
[2025-05-24] MEDS: HYDROcodone/APAP 5/325 TABLET 1 TAB PO (17:01)
[2025-05-24 21:19] LABS: Hematocrit 27.2 % (36.0-46.0)
[2025-05-24 21:26] LABS: Hemoglobin 8.8 g/dL (12.0-16.0)
[2025-05-25] VITALS (25 sets, daily range): BP systolic 71–175; BP diastolic 38–124; PULSE 51–101; RESP 13–18; TEMP 35.7–36.6; O2SAT 99–100; BMI 31.2
[2025-05-25 00:57] LABS: Partial Thromboplastin Time 32.1 Seconds (22.0-36.0)
[2025-05-25] MEDS: HEPARIN SOD INJ 5000 UNIT/ML VIAL 4000 UNIT IV (01:44)
[2025-05-25] MEDS: Heparin/D5w 25K 250 ML Ivpb 25,000 UNIT/250 ML BAG 9.947 UNIT IV (01:47)
[2025-05-25] MEDS: MIDODRINE 5 MG TABLET 10 MG PO ×3 (04:04→16:51)
[2025-05-25] MEDS: LEVOTHYROXINE SODIUM 25 MCG TABLET 50 MCG PO (05:04)
[2025-05-25] MEDS: DIVALPROEX SOD EC 125 MG TABEC 250 MG PO ×2 (05:04→14:34)
[2025-05-25] MEDS: ONDANSETRON INJ 2 MG/ML INJ 2 ML 4 MG IVP (05:05)
[2025-05-25 05:37] LABS: Basophils # (Auto) 0.0 Thou/mm3 (0.0-0.2); Basophils % (Auto) 0 % (0-2.5); Eosinophils # (Auto) 0.3 Thou/mm3 (0.0-0.5); Eosinophils % (Auto) 3 % (0-10); Hematocrit 28.8 % (36.0-46.0); Hemoglobin 9.2 g/dL (12.0-16.0); Immature Granulocytes Auto 0.14 Thou/mm3 (0.00-0.00); Lymphocytes # (Auto) 3.0 Thou/mm3 (1.0-4.8); Lymphocytes % (Auto) 31 % (10-50); Mean Corpuscular HGB Conc 31.9 g/dl (31.0-37.0); Mean Corpuscular Hemoglobin 31.8 pg (25.0-35.0); Mean Corpuscular Volume 100 fL (80-100); Monocytes # (Auto) 1.6 Thou/mm3 (0.0-0.8); Monocytes % (Auto) 16 % (0-12); Neutrophils # (Auto) 4.8 Thou/mm3 (1.8-7.7); Neutrophils % (Auto) 49 % (37-80); Nucleated Red Blood Cell # 0.05 Thou/mm3 (0.00-0.00); Nucleated Red Blood Cell % 1 /100 WBC (0); Platelet Count 108 Thou/mm3 (140-440); RDW Standard Deviation 74.7 fL (36.4-46.3); Red Blood Count 2.89 Miln/mm3 (4.00-5.20); White Blood Count 9.9 Thou/mm3 (3.6-11.0)
[2025-05-25 06:11] LABS: Anion Gap 10 (7-16); BUN/Creatinine Ratio 11 Ratio (12-20); Blood Urea Nitrogen 23 mg/dL (9-23); Calcium 8.4 mg/dL (8.3-10.6); Carbon Dioxide 26.9 mMol/L (20.0-31.0); Chloride 101 mMol/L (98-107); Creatinine (Component) 2.1 mg/dL (0.6-1.3); Estimated Creatinine Clearance 37.1 mL/min (>60); Glucose 112 mg/dL (74-106); Magnesium 2.2 mg/dL (1.6-2.6); Osmolality,Calculated 280 (275-295); Phosphorous 1.9 mg/dL (2.4-5.1); Potassium 4.0 mMol/L (3.4-5.1); Sodium 138 mMol/L (136-145); eGFR 26 See Note
[2025-05-25 06:15] LABS: INR 1.1 (0.9-1.3); Partial Thromboplastin Time 88.8 Seconds (22.0-36.0); Prothrombin Time 12.3 Seconds (9.0-12.2)
[2025-05-25] MEDS: VIT B12/Vit C/FA (Nephrovite) TABLET 1 TAB PO (08:31)
[2025-05-25] MEDS: ZINC SULFATE 220 MG CAPSULE PO (08:31)
[2025-05-25 09:08] LABS: Partial Thromboplastin Time 50.7 Seconds (22.0-36.0)
[2025-05-25] MEDS: NAPH,KPH MBDB 1 PACKET (1.5 GM) 2 PACKET PO (10:11)
[2025-05-25] MEDS: APIXABAN 2.5 MG TABLET 5 MG PO (10:12)
[2025-05-25] MEDS: ALBUMIN HUMAN 25% IVPB 25 GM/100 ML BTL IV ×2 (10:51→11:41)
--- NOTE | 2025-05-25 11:05 | ESDS_ITS ---
<Statement entered by Hermes Bernard MD - 05/25/25 17:18> Note reviewed and agree with care plan as documented. Please refer to the note below for further details. Plan discussed with attending physician Dr. 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 Landry), HFrEF (15-20%), CVA with left-sided deficits [facility] w/ x3 days SOB. EMS was called which found pt was desaturating. In ED pt was found to have lactic acidosis, imaging revealed vascular congestion, EKG showed AFIB. Pt underwent emergency dialysis during which she developed refractory hypotension. She was subsequently admitted to ICU, intubated, sedated, and placed on pressors. She spent 8 days in ICU, was extubated, weaned off sedation as well as IV p ressors, and became hemodynamically stable relative to admission before being downgraded to inpatient telemetry. Pt MAP was stable >60 on PO Midodrine 10mg QID for two days of inpatient telemetry before considered safe to discharge. On day of discharge, mentation is intact and she received scheduled dialysis without complication. Vital signs were stable. Labs were comparable to baseline. Given above findings pt was deemed stable for discharge to her SNF. SNF was notified about medication changes including new Midodrine 10mg QID prescription necessary for BP control as well as restarting Eliquis 5mg BID d/t AFIB. Pt was instructed to hold metoprolol and potassium until follow-up with PCP d/t concern of hypotension. Time Spent with Patient Time attestation: Total time spent providing and/or coordinating discharge services: 37 minutes Time spent: Greater than 30 minutes Exam Vital Signs Temp Pulse Resp BP Pulse Ox O2 Del Method O2 Flow Rate 96.2 F L 66 16 101/53 L 100 Room Air 1 05/25/25 10:29 05/25/25 11:00 05/25/25 10:29 05/25/25 11:00 05/25/25 08:00 05/25/25 08:00 05/25/25 06:58 FiO2 40 05/18/25 08:14 Narrative Exam General: AOx3, no acute distress, able to speak full sentences. Appears far older than actual age. HEENT: NC/AT, mucous membranes dry, bilateral sclera anicteric Cardiovascular: irregularly irregular rate and rhythm consistent w/ AFIB, no murmurs appreciated. Pulmonary: clear to auscultation bilaterally, no rales/rhonchi/wheezes Abdominal: soft, non-tender, non-distended, no rebound/guarding, normal bowel sounds present Musculoskeletal: normal ROM. swollen b/l UEs and LEs, 3+ pitting edema of b/l LEs. Skin: warm and dry, intact, no rashes Neuro: 4/5 strength of R extremities, 0/5 strength of L extremities/unable to move L extremities. Discharge Plan Plan Patient Disposition: Xfer Skilled Nsg Fac (SNF) Patient condition on transfer: Stable Care Plan Goals: ? Restarted apixaban 5 mg twice per day ? Started midodrine 10 mg four times per day ? Goal MAP greater than 60 given that appears to be her baseline and remains alert and orientated ? Held metoprolol and potassium until you follow-up with your PCP ? Continue taking all other home medications as prescribed ? Follow-up with PCP within 1-2 weeks of discharge ? If you do not have a PCP, you can follow-up at the [facility] (you can call [phone] to make an appointment) ? Return to ED if symptoms worsen or recur. - Wound care: 1) LLE venous vs pressure injury: cleanse with wound cleanser, pat dry. Cover with xeroform gauze and lightly wrap with kerlix roll daily 2) Left heel pressure injury: cleanse with wound cleanser, pat dry, apply calcium alginate and secure with foam dressing Negative pressure to bilateral heels at all times 3) Stage 3 over sacrum and stage 2 to left buttocks: cleanse with wound cleanser, pat dry, apply calcium alginate to wound beds. Skin prep to wound edges and secure with silicone foam dressing daily Side to side repositioning except for meals. Prescriptions/Referrals Prescriptions/Med Rec: New apixaban 5 mg tablet 5 mg PO BID 30 Days Qty: 60 0RF midodrine 10 mg tablet 10 mg PO Q6H 30 Days Qty: 120 0RF Continued levothyroxine 50 mcg Tablet 50 mcg PO QDAY Qty: 0 magnesium hydroxide [Milk of Magnesia] 30 ML/CUP suspension 30 ml PO Q72H PRN (Reason: CONSTIPATION) Qty: 0 multivitamin with minerals Tablet 1 tab PO QDAY Qty: 0 ascorbic acid (vitamin C) 500 mg Tablet 500 mg PO BID diphenoxylate-atropine 2.5-0.025 mg Tablet 1 tab PO BID Qty: 6 0RF ondansetron HCl 4 mg tablet 4 mg PO Q6H hydrocodone-acetaminophen 10-325 mg tablet 1 tab PO Q8H ropinirole 1 mg tablet 1 mg PO QDAY lasix 40 mg PO DAILY hydroxyzine HCl 25 mg tablet 25 mg PO BID loratadine 10 mg tablet 10 mg PO Q24H sennosides-docusate sodium [Senna-S] 8.6-50 mg tablet 2 tab-cap PO BID divalproex [Depakote ER] 250 mg tablet extended release 24 hr 250 mg PO TID psyllium husk [Fiber Laxative (psyllium husk)] 0.52 gram capsule 0.52 g PO BID brimonidine 0.2 % drops 1 drp ophthalmic (eye) HS Rx Instructions: administer approximately 8 hours apart polyethylene glycol 3350 17 gram powder in packet 17 g PO QDAY AtorvaliQ 20 mg/5 mL (4 mg/mL) suspension 20 mg PO QDAY Rx Instructions: administer on an empty stomach, at least 1 hour before or 2 hours after food/meal(s) melatonin 3 mg capsule 3 mg PO HS PRN (Reason: sleep) loperamide 2 mg tablet 4 mg PO Q6H PRN (Reason: loose stool) Enema 19-7 gram/118 mL enema 118 ml KS QDAY PRN (Reason: constipation) amiodarone 200 mg tablet 200 mg PO BID 30 Days Qty: 60 0RF Held metoprolol succinate 25 mg Tablet Extended Release 24 Hr 50 mg PO QDAY Qty: 0 0RF Hold Instructions: Hold until you follow-up with your PCP metoprolol succinate 50 mg tablet extended release 24 hr 50 mg PO QDAY Hold Instructions: Hold until you follow-up with your PCP potassium chloride 10 mEq tablet extended release 10 meq PO BID Hold Instructions: Hold until you see your PCP Discontinued diphenhydramine HCl [Allergy (diphenhydramine)] 25 mg capsule 25 mg PO Q8H PRN (Reason: allergy symptoms) Eliquis 5 mg tablet 5 mg PO BID 30 Days Qty: 60 0RF Referrals: No Primary/Family,Physician [Primary Care Provider] Patient/Caregiver Discharge Instructions Education Materials: CKD Dc Print Language: Ethiopian Stand Alone Forms: Amita Award Info., Patient Portal Info Letter Discharge Order Discharge Orders: Discharge (Routine); Ordered 05/25/25 Ordered By: Hermes Bernard Quality Discharge Quality Measures none Attestestation MD Attestation I attest that I was physically present for the evaluation, physical examination, lab and imaging review of the patient with the residents. I discussed the case with the residents and agree with the findings and plans of care as documented above. Anahi Pruitt MD
--- NOTE | 2025-05-25 13:00 | ESPR_ITS ---
Documentation for date of: 05/25/25 Subjective Subjective Interval history: Patient seen and examined at bedside. Telemetry reviewed showing atrial fibrillation heart rate ranges from 80 to 90s heart rate max low 100s. Blood pressure ranges 80-100/50-75 on midodrine 10 mg every 6 hours. Saturating 100% on 1 L. Hemoglobin stable low at 9.2, platelets 108, potassium 4, BUN 23, creatinine 2.1, phosphorus 1.9, magnesium 2.2. Patient reports feeling tired today and is requesting to go home. Denies chest pain, palpitations or shortness of breath. Patient declines any surgical interventions or procedures at this time and due to patient's bedbound status, diagnostic cardiac catheterization will most likely not be beneficial. Exam Vital Signs Temp Pulse Resp BP Pulse Ox O2 Del Method O2 Flow Rate 96.2 F L 78 16 76/49 L 100 Room Air 1 05/25/25 10:29 05/25/25 12:45 05/25/25 10:29 05/25/25 12:45 05/25/25 08:00 05/25/25 08:00 05/25/25 06:58 FiO2 40 05/18/25 08:14 Narrative Exam GENERAL: Sleepy and oriented x3 appears older than stated age HEENT: NC/AT, mucous membranes dry, bilateral sclera anicteric CARDIOVASCULAR: irregular rhythm, regular rate, no murmurs able to be appreciated, R IJ TDC in place with dried blood, R femoral line in place PULMONARY: distant breath sounds bilaterally, no rales/rhonchi/wheezes ABDOMINAL: soft, non-tender, non-distended, no rebound/guarding, bowel sounds present EXTREMITIES: 3+ pitting edema of LLE, trace pitting edema RLE, L heel wound wrapped, contracture of L hand, 0/5 strength in LUE and LLE, 4/5 strength RUE and RLE SKIN: LLE wound NEURO: alert, following commands Objective Labs 05/25/25 05:10 05/25/25 05:10 Labs: Laboratory Results - last 24 hr 05/24/25 05/25/25 05/25/25 21:00 00:22 05:10 WBC 9.9 RBC 2.89 L Hgb 8.8 L 9.2 L Hct 27.2 L 28.8 L MCV 100 MCH 31.8 MCHC 31.9 RDW Std Deviation 74.7 H Plt Count 108 L D Neut % (Auto) 49 Lymph % (Auto) 31 [place] % (Auto) 16 H Eos % (Auto) 3 Baso % (Auto) 0 Neut # (Auto) 4.8 Lymph # (Auto) 3.0 [place] # (Auto) 1.6 H Eos # (Auto) 0.3 Baso # (Auto) 0.0 Immature Gran # (Auto) 0.14 H Absolute Nucleated RBC 0.05 H Immature Gran % 1 H Nucleated RBC % 1 H PT 12.3 H INR 1.1 APTT 32.1 D 88.8 H D Sodium 138 Potassium 4.0 D Chloride 101 Carbon Dioxide 26.9 Anion Gap 10 BUN 23 Creatinine 2.1 H D Estim Creat Clear Calc 37.1 L eGFR 26 L BUN/Creatinine Ratio 11 L Glucose 112 H Calculated Osmolality 280 Calcium 8.4 Phosphorus 1.9 L Magnesium 2.2 05/25/25 07:50 WBC RBC Hgb Hct MCV MCH MCHC RDW Std Deviation Plt Count Neut % (Auto) Lymph % (Auto) [place] % (Auto) Eos % (Auto) Baso % (Auto) Neut # (Auto) Lymph # (Auto) [place] # (Auto) Eos # (Auto) Baso # (Auto) Immature Gran # (Auto) Absolute Nucleated RBC Immature Gran % Nucleated RBC % PT INR APTT 50.7 H D Sodium Potassium Chloride Carbon Dioxide Anion Gap BUN Creatinine Estim Creat Clear Calc eGFR BUN/Creatinine Ratio Glucose Calculated Osmolality Calcium Phosphorus Magnesium ABG Interpretation ABG results: 05/17/25 05/17/25 05/17/25 15:40 18:01 19:47 ABG pH 7.05 L* 7.11 L* 7.10 L* ABG pCO2 15 L* 24 L 28 L ABG pO2 229 H 241 H 441 H D ABG HCO3 4 L* 8 L* 9 L* ABG O2 Saturation 100 H 101 H 101 H ABG Base Excess -24 L -20 L -20 L 05/17/25 05/18/25 22:05 04:57 ABG pH 7.27 L D 7.46 H D ABG pCO2 33 31 L ABG pO2 208 H D 194 H ABG HCO3 15 L 22 ABG O2 Saturation 101 H 101 H ABG Base Excess -11 L -1 Quality Measures Quality Measures none Assessment & Plan Assessment Current Active Medications: Generic Name Dose Route Start Last Admin Trade Name Marysol PRN Reason Stop Dose Admin Acetaminophen 650 mg 05/23/25 10:06 Acetaminophen 325 Mg Tablet PO 06/16/25 15:47 Q6H PRN PAIN 1-3 OR FEVER > 100.4 Hydrocodone Bitart/Acetaminophen 1 tab 05/23/25 10:06 05/24/25 17:01 Hydrocodone/Apap 5/325 Tablet PO 05/28/25 10:05 1 tab Q8HR PRN Administration PAIN SCALE 4-10(Mod-Sev Amiodarone HCl 200 mg 05/19/25 21:00 05/25/25 12:08 Amiodarone Hcl 200 Mg Tablet PO 06/18/25 20:59 Not Given BID RIANNA Apixaban 5 mg 05/25/25 09:10 05/25/25 10:12 Apixaban 2.5 Mg Tablet PO 06/24/25 09:09 5 mg BID RIANNA Administration Dextrose 25 ml 05/17/25 16:04 Dextrose 50%-Water Inj 50 Ml Syringe IV 06/16/25 16:03 Q15MIN PRN BG 50-70 responsive npo pt Dextrose 50 ml 05/17/25 16:04 Dextrose 50%-Water Inj 50 Ml Syringe IV 06/16/25 16:03 Q15MIN PRN BG <50 OR BG <70 & pt unresponsive Divalproex Sodium 250 mg 05/17/25 22:00 05/25/25 05:04 Divalproex Sod Ec 125 Mg Tabec PO 06/16/25 21:59 250 mg TID RIANNA Administration Epoetin Jemal 10,000 unit 05/19/25 16:45 05/23/25 20:01 Epoetin Jemal-Epbx Inj 10,000 Unit/Ml Vial (Non-Esrd) SC 06/18/25 16:44 10,000 unit MoTh RIANNA Administration Glucagon 1 mg 05/17/25 16:04 Glucagon Inj 1 Mg Vial IM Q15MIN PRN BG <70, and no IV access Heparin Sodium (Porcine) 3,300 unit 05/17/25 16:12 05/23/25 19:59 Heparin Sod Inj 1000 Unit/Ml Vial 10 Ml INDWELLCAT 05/31/25 16:11 3,300 unit PRN PRN Administration DIALYSIS Hydroxyzine HCl 25 mg 05/24/25 16:39 05/24/25 17:01 Hydroxyzine Hcl 25 Mg Tablet PO 06/23/25 20:59 25 mg BID PRN Administration Anxiety Albumin Human 25 gm in 100 mls @ 100 mls/min 05/25/25 09:58 05/25/25 11:42 Albuminar-25 Ivpb IV Infused PRN PRN Infusion DIALYSIS Iron Sucrose 200 mg 05/25/25 11:15 Iron Sucrose Cplx Inj 20 Mg/Ml Vial 5 Ml IVP 06/02/25 09:01 QOD RIANNA Levothyroxine Sodium 50 mcg 05/18/25 06:00 05/25/25 05:04 Levothyroxine Sodium 25 Mcg Tablet PO 06/17/25 05:59 50 mcg ACBR RIANNA Administration Melatonin 3 mg 05/17/25 16:14 05/23/25 23:10 Melatonin 3 Mg Tablet PO 3 mg HS PRN Administration sleep Protocol Midodrine 10 mg 05/25/25 11:02 Midodrine 5 Mg Tablet PO 06/24/25 13:59 TID PRN SBP <95 Ondansetron HCl 4 mg 05/20/25 11:14 05/25/25 05:05 Ondansetron Inj 2 Mg/Ml Inj 2 Ml IVP 06/19/25 11:13 4 mg Q8HR PRN Administration NAUSEA OR VOMITING Protocol Pharmacy Consult 1 each 05/18/25 08:27 Pharmacy Renal Dose Adjustment 1 Ea XX 06/17/25 08:26 PRN PRN CONSULT Sennosides 1 tab 05/21/25 07:56 05/21/25 08:10 Senna/Docusate Sod 1 Tab Tablet PO 06/20/25 07:55 1 tab QDAY PRN Administration CONSTIPATION Protocol Sodium Chloride 3 ml 05/17/25 13:24 05/17/25 13:36 Sodium Chloride Rt Cristina 0.9% 3 Ml Nebu INH 06/16/25 13:23 3 ml PRN PRN Administration SOLN Vitamin B Complex/Vit C/Folic Acid 1 tab 05/20/25 15:45 05/25/25 08:31 Vit B12/Vit C/Fa (Nephrovite) Tablet PO 06/19/25 15:44 1 tab QDAY RIANNA Administration Zinc Sulfate 220 mg 05/20/25 15:45 05/25/25 08:31 Zinc Sulfate 220 Mg Capsule PO 06/03/25 15:44 220 mg QDAY RAINNA Administration Plan Hollie Whaley 64F with pmhx significant for CVA, atrial fibrillation on Xarelto, HFrEF (15-20% 04/2025), newly ESRD on HD (TThSat), hypothyroidism who presented to [facility] ED on 05/17 for SOB, admitted for lactic acidosis with hyperkalemia. Emergent HD begun, however 30 minutes into HD, patient became hypotensive and progressively confused. Patient was then admitted to ICU where she was subsequently placed on pressors and intubated. Cardiology consulted for management of atrial fibrillation with RVR. #Atrial fibrillation RVR 10/03 #Metformin associated lactic acidosis #Shock, unknown etiology #Hx of atrial fibrillation Patient has a history of A-fib on Eliquis and previously took metoprolol XL 50 mg QD for rate control and on previous hospitalization, patient experienced bradycardia and hypotension with metoprolol and was started on amiodarone 200 mg BID. Admission labs ABG 7.05//229/4, K 6.1, bicarb <10, AG 32, BUN 27, Cr 4.1, glucose 42, lactic acid 22, Mg 2.2, LDH 337, trop 0.023, BNP 1945. Unlikely cardiogenic shock as in spite of patient having severe HFrEF, admission troponins are negative. EKG shows afib RVR rate 111 with left axis deviation. 05/18/25 Patient was intubated and tele in ICU showed atrial fibrillation RVR 120-130s. Atrial fibrillation RVR likely secondary to severe lactic acidosis. Ddx for lactic acidosis includes, ESBL UTI, TDC infection, bacteremia, medication s/e. CHADSVASC score 4, 4.8% stroke risk per year HASBLED 3 s/p IV amiodarone (05/17-05/18) Plan: ? We recommend another pRBC transfusion to help increase blood pressure and also decrease tachycardia - PO amiodarone 200 mg BID given patient hx of atrial fibrillation as well as low EF and to decrease arrhythmias such as VT and VF risk as pt does have dilated cardiomyopathy - Patient was previously given metoprolol on past admission and patient experienced hypotension and bradycardia, recommend to avoid metoprolol at this time - Monitor QTc closely - Continue heparin drip for anticoagulation over Eliquis as heparin is more convenient to stop if patient requires surgery, drop in Hgb or further operations - Consider restarting Eliquis once patient has been downgraded to floors - Telemetry/ICU for cardiac monitoring - Keep K>4 and Mg>2 #HFrEF (20-25% 05/2025) #Dilated cardiomyopathy Patient endorses remote occasional cocaine use for only one year. Denies previous SC, having ever seen a dietary cook or ever having a cardiac catheterization done. Per brother, atrial fibrillation runs in the family, unsure of heart failure or cardiac . 2022 Echocardiogram shows dilated cardiomyopathy, severe global hypokinesis with estimated EF 25 to 30%, normal RV size, LA mildly dilated, mild MR. 04/2025 Echocardiogram shows dilated cardiomyopathy, moderately dilated LV, severe global hypokinesis and severe systolic dysfunction estimated EF 15 to 20%. Normal RV size, reduced systolic function. RA estimated RVSP 45 mmHg, moderate pulmonary hypertension, moderate MR and mild TR, trace to mild AI, LA severely dilated, RA severely dilated, mildly dilated ascending body measuring 3.9 cm 05/24/2025 Echo shows Moderately dilated LV. Severe global hypokinesis and severe systolic dysfunction. Estimated EF 20-25% Normal RV size, reduced systolic function. Estimated RVSP 45 mmHg. Moderate pulmonary hypertension. Moderate MR and mild TR. trace to mild AI. LA severely dilated. RA mildly dilated. Plan: - Plan to initiate GDMT once blood pressure tolerates however avoid SGLT2 inhibitors due to current dialysis status - Strict I&O and daily weights - Continue to follow up outpatient for further management - May need defibrilator due severe HFrEF if pt does not respond to maximum GDMT for more 3 months - Considering cardiac catheterization as a cause of dilated cardiomyopathy (if not performed before) prior to discharge however patient refused surgical interventions or procedures at this time and requests to be discharged to go home to her . - Also considering patient has been bed bound for a long time due to bilateral foot drop and Left side weakness with no mobility - Patient should be on aggressive medical treatment. #Iron deficiency anemia s/p 2 pRBC (05/19, 05/23) #Acute macrocytic anemia Patient has a history of chronic anemia baseline hemoglobin ~7.5 to 10. Iron studies all low: Iron 17, TIBC 163 iron sat 10, unsat iron binding 146. Peripheral blood smear shows macrocytic anemia, mild thrombocytopenia, mature neutrophils with unremarkable morphology likely nutritional deficiency Currently no signs of overt bleeding, likely secondary to ESRD as well as chronic comorbidities. Plan: - Recommend IV iron infusion once downgraded to floors - CTM Hgb #ESRD on HD (T//Fri) #Hypotension 2/2 sepsis #Leukocytosis #Nephrolithiasis #Hypothyroidism #CVA #Mood disorder Plan: ? Patient is getting CRRT - Above managed by primary team Thank you for your consultation and allowing participation in patient's care. Plan of care discussed with attending Dr. Swapna August, DO PGY-1 Internal Medicine Attending Provider Attestation/Addendum I have personally seen and examined the patient separately on the above date of service and discussed the plan of care with the resident. I reviewed the resident Dr. Donya August consultation progress note and agree with the resident findings and plan in the note above and have also edited the documentation to reflect my findings and plan. Bishnu Barcenas M.D. Interventional Cardiology
[2025-05-25] MEDS: IRON SUCROSE CPLX INJ 20 MG/ML VIAL 5 ML 200 MG IVP (14:35)
--- NOTE | 2025-05-25 15:53 | PC.SS ---
Patient has d/c orders for today. Patient will return to [facility]. Patient is a [facility] of facility. set up gurney transport through [facility] with a reservation# [phone] for a belt picker of 6p.m. Floor nurse aware
--- NOTE | 2025-05-25 23:17 | ESPR_ITS ---
RE: RUBÉN VIVAR : 1960 DATE OF SERVICE: 05/25/2025 HISTORY OF PRESENT ILLNESS: Briefly, she is a 64-year-old woman with past medical history significant for CVA, atrial fibrillation, heart failure with reduced ejection fraction of 15% to 20%, moderate pulmonary hypertension and new ESRD on dialysis since 04/2025 at [facility] every Friday, , Friday, who presented to the hospital on 05/17/2025 for shortness of breath and anasarca. The patient was transferred to ICU when she became more hypoxic and hypotensive. She was started on vasopressor and on PIRRT for the next 5 days. Initially, she was on pressor, which was tapered off slowly. Finally, after being off vasopressor, she was transferred to telemetry. She is currently doing well and currently on dialysis and tolerating it somehow. PHYSICAL EXAMINATION: General: She is awake, alert, oriented, not in respiratory distress. Vital Signs: Blood pressure of 92/64. HEENT: Anicteric sclerae. Normocephalic. Neck: Supple. JVD Chest and Lungs: Decreased breath sounds bilaterally. Cardiac: no murmur. Abdomen: Soft and nontender. Extremities: 2 to 3+ BL pitting edema. LABORATORY DATA: Hemoglobin 9.2, WBC 9900, platelet count 108,000, sodium 138, potassium 4, chloride 101, CO2 of 26.9, BUN 23, creatinine 2.1, glucose 112. ASSESSMENT: 1. End-stage renal disease. 2. Heart failure with reduced ejection fraction of 15% to 25% with severe global hypokinesis with cardiogenic shock. 3. Lactic acidosis secondary to poor organ perfusion due to cardiogenic shock and also metformin as apparently the patient was being given metformin at half-way facility, now improved. 4. Hypotension with tachycardia, now stable. 5. History of cerebrovascular accident. 6. Anemia of chronic kidney disease. 7. Thrombocytopenia, now improved. 8. Atrial fibrillation, on amiodarone. PLAN: The patient is currently on dialysis and tolerating it somehow. Our goal is to remove 1-2 liters a day and do an isolated ultrafiltration tomorrow. If discharged, then she could go back to the dialysis unit for dialysis treatment. May need daily dialysis to achieve euvolemia. DT: 22:01:27 TT: 22:51:00 Ref: [id number] - TID: [id number] MTDD
== END 2025-05-25 18:36 | disposition skilled nursing facility (03) | DRG 720 ==
LOC: SERX 15:50 → SERHOLD 16:12 → S2SX 05-18 06:00 → S2NX 05-24 15:50
PROVIDERS: Internal Medicine; Internal Medicine Nephrology; Registered Nurse General Practice; Student in an Organized Health Care Education/Training Program; Admitting Provider Internal Medicine; Emergency Provider Emergency Medicine; Visit Provider Student in an Organized Health Care Education/Training Program
DX: A41.9 Sepsis, unspecified organism (principal); J96.01 Acute respiratory failure with hypoxia; Z99.2 Dependence on renal dialysis; N18.6 End stage renal disease; I48.91 Unspecified atrial fibrillation; Z79.01 Long term (current) use of anticoagulants; I50.22 Chronic systolic (congestive) heart failure; N39.0 Urinary tract infection, site not specified; E03.9 Hypothyroidism, unspecified; I95.9 Hypotension, unspecified; R65.21 Severe sepsis with septic shock; I42.0 Dilated cardiomyopathy; E87.5 Hyperkalemia; E87.20 Acidosis, unspecified; D53.9 Nutritional anemia, unspecified; D62 Acute posthemorrhagic anemia; D63.1 Anemia in chronic kidney disease; D69.6 Thrombocytopenia, unspecified; E83.39 Other disorders of phosphorus metabolism; E88.09 Other disorders of plasma-protein metabolism, not elsewhere classified; G93.41 Metabolic encephalopathy; I13.2 Hypertensive heart and chronic kidney disease with heart failure and with stage 5 chronic kidney disease, or end stage renal disease; Z79.899 Other long term (current) drug therapy; Z88.8 Allergy status to other drugs, medicaments and biological substances; Z88.2 Allergy status to sulfonamides; I27.20 Pulmonary hypertension, unspecified; K56.7 Ileus, unspecified; M21.371 Foot drop, right foot; I69.354 Hemiplegia and hemiparesis following cerebral infarction affecting left non-dominant side; M21.372 Foot drop, left foot; N20.0 Calculus of kidney; T38.3X5A Adverse effect of insulin and oral hypoglycemic [antidiabetic] drugs, initial encounter; Z16.12 Extended spectrum beta lactamase (ESBL) resistance; Z66 Do not resuscitate; Z74.01 Bed confinement status; Z79.84 Long term (current) use of oral hypoglycemic drugs; Z87.891 Personal history of nicotine dependence; Z87.442 Personal history of urinary calculi; D50.9 Iron deficiency anemia, unspecified; F39 Unspecified mood [affective] disorder; I45.4 Nonspecific intraventricular block; R57.0 Cardiogenic shock
CPT/HCPCS: 36415; 36600; 71045; 74018; 80048; 80053; 80069; 80307; 81001; 82803; 83036; 83540; 83550; 83605; 83615; 83735; 83880; 84100; 84439; 84443; 84484; 85014; 85018; 85025; 85610; 85730; 86850; 86900; 86901; 86923; 87040; 87070; 87075; 87081; 87086; 87106; 87205; 93005; 93306; 94002; 94003; 94640; 96374; 96375; 99284; A9270; J0283; J0612; J0780; J1643; J1644; J1756; J2185; J2405; J2470; J2598; J2765; J3010; J3475; J3480; J3490; J7050; J7060; J7999; P9016; P9047; Q0162; Q5106

== ENCOUNTER 2025-05-31 00:54 | Inpatient (IN) | payer MEDICAID, SELFPAY ==
[2025-05-31] VITALS (120 sets, daily range): BP systolic 54–143; BP diastolic 32–99; PULSE 90–135; RESP 5–110; TEMP 35.3–37; O2SAT 79–100; BMI 24.4
[2025-05-31 01:36] LABS: Collection Type, Urine Clean Catch
[2025-05-31 01:38] LABS: Basophils # (Auto) 0.1 Thou/mm3 (0.0-0.2); Basophils % (Auto) 1 % (0-2.5); Eosinophils # (Auto) 0.0 Thou/mm3 (0.0-0.5); Eosinophils % (Auto) 0 % (0-10); Hematocrit 36.6 % (36.0-46.0); Hemoglobin 10.5 g/dL (12.0-16.0); Immature Granulocytes Auto 1.19 Thou/mm3 (0.00-0.00); Lymphocytes # (Auto) 1.8 Thou/mm3 (1.0-4.8); Lymphocytes % (Auto) 9 % (10-50); Mean Corpuscular HGB Conc 28.7 g/dl (31.0-37.0); Mean Corpuscular Hemoglobin 33.2 pg (25.0-35.0); Mean Corpuscular Volume 116 fL (80-100); Monocytes # (Auto) 1.0 Thou/mm3 (0.0-0.8); Monocytes % (Auto) 5 % (0-12); Neutrophils # (Auto) 17.3 Thou/mm3 (1.8-7.7); Neutrophils % (Auto) 81 % (37-80); Nucleated Red Blood Cell # 0.21 Thou/mm3 (0.00-0.00); Nucleated Red Blood Cell % 1 /100 WBC (0); Platelet Count 319 Thou/mm3 (140-440); RDW Standard Deviation 97.8 fL (36.4-46.3); Red Blood Count 3.16 Miln/mm3 (4.00-5.20); White Blood Count 21.4 Thou/mm3 (3.6-11.0)
[2025-05-31 01:46] LABS: Bacteria,Urine 2+; Bilirubin,Urine Negative (Negative); Blood,Urine 3+ (Negative); Glucose, Urine Negative (Negative); Ketones,Urine Trace (Negative); Leukocyte Esterase,Urine Positive (Negative); Nitrite,Urine Negative (Negative); PH,Urine 5.5 (5.0-7.0); Protein,Urine 1+ (Neg - Trace); RBC,Urine 252 /hpf (0-3); Specific Gravity,Urine 1.007 (1.001-1.035); Squamous Epithelial Cell,Urine 3 /hpf (0-5); Urobilinogen,Urine Negative mg/dL (0.0-1.0); WBC,Urine 8340 /hpf (0-5)
[2025-05-31 01:47] LABS: Clarity,Urine Turbid (Clear/Hazy); Color,Urine Lt-Yellow (Lt Yel-Yel); Culture Indicated,Urine Yes
[2025-05-31 02:04] LABS: B-Type Natriuretic Peptide 2962 pg/mL (0-100)
--- NOTE | 2025-05-31 02:27 | EKG_ITS ---
[facility] Test Date: 2025-05-31 Pat Name: RUBÉN VIVAR Department: Room: - Gender: Female Mental Retardation Aide: : 1960 Requested By: Manuel Castro Order Number: [id number] Reading MD: Manuel Castro Measurements Intervals Grady Rate: 92 P: FL: QRS: -30 QRSD: 157 T: 104 QT: 388 QTc: 482 Interpretive Statements ATRIAL FIBRILLATION LEFT BUNDLE BRANCH BLOCK [120+ ms QRS DURATION, 80+ ms Q/S IN V1/V2, 85+ ms R IN I/aVL/V5/V6] Compared to ECG 05/24/2025 16:35:51 Left bundle-branch block now present Intraventricular conduction delay no longer present Left ventricular hypertrophy no longer present /store/S0/[id number].pdf
[2025-05-31 02:33] LABS: Lactate (Lactic Acid) 20.0 mMol/L (0.4-2.0)
--- NOTE | 2025-05-31 02:40 | XR_ITS ---
Examination: AP chest single view Technique one AP portable semiupright chest single view Date and time: May 31, 2025, 0254 hrs., Comparison 05/17/2025 Indications: Nausea vomiting sepsis alert today Findings: Mild heart failure Moderate enlargement cardiac contour, enlarged ectatic thoracic aorta. Prominent vascular congestion with early septal edema at the lung bases Right internal jugular dialysis catheter satisfactory position Moderate osteopenia Impression: Mild heart failure No lobar pneumonia
[2025-05-31] MEDS: LEVOFLOXACIN/D5W 500 MG IVPB 500 MG/100 ML BAG 100 MG IV (02:46)
[2025-05-31 02:49] LABS: Amphetamine/Methamp Scrn,U Negative (Negative); Barbiturate Screen,Urine Negative (Negative); Benzodiazepines Screen,Urine Negative (Negative); Benzoylecgonine Screen, Ur Negative (Negative); Fentanyl Screen,Urine Negative (Negative); Opiate Screen,Urine Positive (Negative); THC Screen,Urine Negative (Negative)
[2025-05-31 02:49] LABS: Basophils # (Auto) 0.1 Thou/mm3 (0.0-0.2); Basophils % (Auto) 1 % (0-2.5); Eosinophils # (Auto) 0.0 Thou/mm3 (0.0-0.5); Eosinophils % (Auto) 0 % (0-10); Hematocrit 37.2 % (36.0-46.0); Hemoglobin 10.6 g/dL (12.0-16.0); Immature Granulocytes Auto 1.44 Thou/mm3 (0.00-0.00); Lymphocytes # (Auto) 1.7 Thou/mm3 (1.0-4.8); Lymphocytes % (Auto) 7 % (10-50); Mean Corpuscular HGB Conc 28.5 g/dl (31.0-37.0); Mean Corpuscular Hemoglobin 33.1 pg (25.0-35.0); Mean Corpuscular Volume 116 fL (80-100); Monocytes # (Auto) 1.2 Thou/mm3 (0.0-0.8); Monocytes % (Auto) 5 % (0-12); Neutrophils # (Auto) 19.2 Thou/mm3 (1.8-7.7); Neutrophils % (Auto) 81 % (37-80); Nucleated Red Blood Cell # 0.22 Thou/mm3 (0.00-0.00); Nucleated Red Blood Cell % 1 /100 WBC (0); Platelet Count 358 Thou/mm3 (140-440); RDW Standard Deviation 98.4 fL (36.4-46.3); Red Blood Count 3.20 Miln/mm3 (4.00-5.20); White Blood Count 23.7 Thou/mm3 (3.6-11.0)
[2025-05-31 03:27] LABS: INR 1.3 (0.9-1.3); Partial Thromboplastin Time 36.5 Seconds (22.0-36.0); Prothrombin Time 14.0 Seconds (9.0-12.2)
[2025-05-31 03:34] LABS: Alanine Aminotransferase 11 U/L (10-49); Albumin, Serum 3.8 gm/dL (3.4-4.8); Albumin/Globulin Ratio 1.5 (1.2-2.2); Alkaline Phosphatase 93 U/L (46-116); Anion Gap 32 (7-16); Aspartate Amino Transferase 14 U/L (0-34); B-Type Natriuretic Peptide 2757 pg/mL (0-100); BUN/Creatinine Ratio 10 Ratio (12-20); Bilirubin,Total 0.5 mg/dL (0.3-1.2); Blood Urea Nitrogen 39 mg/dL (9-23); Calcium 10.0 mg/dL (8.3-10.6); Calcium (Corrected) 10.2 mg/dL (8.5-10.1); Chloride 99 mMol/L (98-107); Creatinine (Component) 3.8 mg/dL (0.6-1.3); Estimated Creatinine Clearance 17.5 mL/min (>60); Globulin 2.6 gm/dL (2.3-3.5); LDH (Lactate Dehydrogenase) 257 U/L (120-246); Lipase 70 U/L (12-53); Magnesium 2.2 mg/dL (1.6-2.6); Osmolality,Calculated 285 (275-295); Phosphorous 6.5 mg/dL (2.4-5.1); Potassium 5.9 mMol/L (3.4-5.1); Procalcitonin 0.41 ng/ml (0.0-0.49); Sodium 141 mMol/L (136-145); Total Protein 6.4 gm/dL (5.7-8.2); Troponin I 0.020 ng/mL (0.0-0.045); eGFR 13 See Note
[2025-05-31 03:40] LABS: Carbon Dioxide < 10.0 mMol/L (20.0-31.0)
[2025-05-31] MEDS: PROCHLORPERAZINE INJ 5 MG/ML VIAL 2 ML IV (03:45)
[2025-05-31] MEDS: DEXTROSE 50%-WATER INJ 50 ML SYRINGE IVP ×2 (03:45→04:07)
[2025-05-31] MEDS: SODIUM CHLORIDE 0.9% 250 ML 250 ML 999 ML IV (03:46)
[2025-05-31 03:50] LABS: Glucose 11 mg/dL (74-106)
[2025-05-31] MEDS: fentaNYL CIT INJ 50 mCg/ML AMP 2ML IVP (03:53)
[2025-05-31] MEDS: DEXTROSE 10%-WATER 500 ML 100 ML IV (04:06)
[2025-05-31] MEDS: DEXTROSE 50%-WATER INJ 50 ML SYRINGE 100 ML IVP (04:30)
--- NOTE | 2025-05-31 04:33 | PD.EDNV ---
Nausea/Vomit./Diarrhea-RME/HPI General Chief complaint: General Adult/Misc Complain Stated complaint: NAUSEA AND VOMITTING Time Seen by Provider: 05/31/25 04:14 Arrival date/time: 05/31/25 00:54 RME / HPI RME / HPI Narrative: DR. SHEA MAIN ED EVALUATION: Patient with Hx of ESR on hemodialysis/Atrial fibrillation on anti-coagulant presents with persistent nausea and vomiting throughout the day. No abdominal pain or distention. No dysuria, urinary frequency or urgency. PMH: Cerebrovascular Accident, Atrial Fibrillation, Hypertension, Diabetes Mellitus Type 2, ESRD with Dialysis. PSH: Non-contributory. Allergies: Cephalexin, Sulfamethoxazole, Trmethoprim. Social: Non-smoker, Non-drinker, No illicit drug abuse. Related Data Home Medications ?Medication ?Instructions ?Recorded ?Confirmed levothyroxine 50 mcg tablet 50 mcg PO QDAY #0 tabs 09/10/15 05/17/25 magnesium hydroxide 400 mg/5 mL 30 ml PO Q72H PRN CONSTIPATION #0 09/11/15 05/18/25 oral suspension (Milk of Magnesia) mL multivitamin with minerals 1 tab PO QDAY ##0 09/11/15 05/17/25 ascorbic acid (vitamin C) 500 mg 500 mg PO BID 03/12/19 05/17/25 tablet atorvastatin 20 mg/5 mL (4 mg/mL) 20 mg PO QDAY 05/01/25 05/18/25 oral suspension (AtorvaliQ) brimonidine 0.2 % eye drops 1 drp ophthalmic (eye) HS 05/01/25 05/18/25 divalproex 250 mg tablet,extended 250 mg PO TID 05/01/25 05/17/25 release 24 hr (Depakote ER) hydrocodone 10 mg-acetaminophen 1 tab PO Q8H 05/01/25 05/18/25 325 mg tablet hydroxyzine HCl 25 mg tablet 25 mg PO BID 05/01/25 05/18/25 lasix 40 mg PO DAILY 05/01/25 05/18/25 loperamide 2 mg tablet 4 mg PO Q6H PRN loose stool 05/01/25 05/18/25 loratadine 10 mg tablet 10 mg PO Q24H 05/01/25 05/18/25 melatonin 3 mg capsule 3 mg PO HS PRN sleep 05/01/25 05/17/25 metoprolol succinate 50 mg 50 mg PO QDAY 05/01/25 05/18/25 tablet,extended release 24 hr Held on 05/25/25. Instructions: Hold until you follow-up with your PCP ondansetron HCl 4 mg tablet 4 mg PO Q6H 05/01/25 05/18/25 polyethylene glycol 3350 17 gram 17 g PO QDAY 05/01/25 05/18/25 oral powder packet potassium chloride 10 mEq 10 meq PO BID 05/01/25 05/18/25 tablet,extended release Held on 05/25/25. Instructions: Hold until you see your PCP psyllium husk 0.52 gram capsule 0.52 g PO BID 05/01/25 05/18/25 (Fiber Laxative (psyllium husk)) ropinirole 1 mg tablet 1 mg PO QDAY 05/01/25 05/18/25 sennosides 8.6 mg-docusate sodium 2 tab-cap PO BID 05/01/25 05/18/25 50 mg tablet (Senna-S) sodium phosphates 19 gram-7 118 ml AR QDAY PRN constipation 05/01/25 05/18/25 gram/118 mL enema (Enema) Previous Rx's ?Medication ?Instructions ?Recorded diphenoxylate-atropine 2.5 1 tab PO BID #6 tabs 01/14/ mg-0.025 mg tablet metoprolol succinate 25 mg 50 mg (2 x 25 mg) PO QDAY #0 tabs 07/10/23 tablet,extended release 24 hr Held on 05/25/25. Instructions: Hold until you follow-up with your PCP amiodarone 200 mg tablet 200 mg PO BID 30 days #60 tabs 05/11/25 apixaban 5 mg tablet 5 mg PO BID 30 days #60 tabs 05/25/25 midodrine 10 mg tablet 10 mg PO Q6H 30 days #120 tabs 05/25/25 Allergies Allergy/AdvReac Type Severity Reaction Status Date / Time Cephalexin Monohydrate Allergy Severe Anaphylaxis Verified 05/31/25 01:13 sulfamethoxazole Allergy Severe Anaphylaxis Verified 05/31/25 01:13 trimethoprim Allergy Severe Anaphylaxis Verified 05/31/25 01:13 Review of Systems Review of Systems Systems Reviewed: All systems reviewed, normal except as documented Past Medical History Past Medical History NEUROLOGIC: Positive Neurological Disorders and Cerebrovascular Accident CARDIAC: Positive Atrial Fibrillation and Hypertension ENDOCRINE: Positive Endocrine Disorders and Diabetes Mellitus Type 2 Social History SMOKING STATUS: Former smoker ED Exam Narrative Physical exam: GEN. APPEARANCE: The patient is alert awake oriented X-3 in no distress, lying down comfortably, appears chronically ill. Patient has good eye contact. Patient is cooperative. C/o nausea. VITALS: All vitals were reviewed and the pulse ox is 94% on room air which is low according to my interpretation. HEENT: Normocephalic, atraumatic. Pupils are equal and reactive. Oral mucosa is moist. Patent Nares NECK: Supple, nontender, no thyromegaly, no meningismus, no JVD, no step offs CHEST: Symmetrical, atraumatic, and with equal expansion , Nontender on palpation no deformity and no crepitus. CARDIOVASCULAR: Heart irregular regular rhythm, no murmur or gallop rub or extra beats. LUNGS: Diminished lung sounds bilaterally with symmetrical chest rise. No laboring tachypnea or wheezing. No intercostal subcostal retraction. No rales and no rhonchi. ABDOMEN: Soft, obese, nontender to palpation, no guarding or rebound tenderness. There are no abnormal masses palpated. Active and normal bowel sounds. EXTREMITIES: Nontender. Marked general edema, no overlying erythema or induration. No cyanosis. Patient is able to move all 4 extremities well, with full ROM and good CSM. SKIN: Warm and dry, no jaundice or rashes noted. MUSCULOSKELETAL: No lubar or midline bony tenderness. There is no CVA tenderness. No paraspinal muscle spasm or tenderness. NEURO: Patient is GREER x 4, Cranial nerves II through XII grossly intact. There is no focal neurologic deficits noted. GCS is 15, PNS and HOUSE ADMIN appear grossly intact. PSYCHIATRIC: Patient is in normal mood and affect, cooperative, no SI or HI or hallucinations. Course Quality Measures Current suspected stage: septic shock (LA >4 and/or hypotension) Sepsis reassessment completed at (date): 05/31/25 Sepsis reassessment completed at (time): 06:30 Possible source: genitourinary Blood cultures ordered: yes Antibiotic ordered: Yes Pertinent labs: 05/31/25 02:23 Lactic Acid 20.0 H* mMol/L (0.4-2.0) Procalcitonin 0.41 ng/ml (0.0-0.49) sepsis Orders Category Date Time Status COVID-19 Screening Questionnaire NOW Care 05/31/25 02:40 Active Wheel Press Clerk STAT Care 05/31/25 02:27 Active Continuous Pulse Oximetry STAT Care 05/31/25 02:27 Completed EKG (ED ONLY) *Do not use* NOW Care 05/31/25 02:27 Completed In and Out Catheter X1PRN Care 05/31/25 02:27 Completed Insert IV NOW Care 05/31/25 02:27 Active NPO STAT Care 05/31/25 02:27 Completed Strict Intake and Output Routine Care 05/31/25 02:27 Ordered Consult to Nephrology Stat Cons 05/31/25 04:25 Ordered EKG (ED Only) Stat Exams 05/31/25 02:27 Draft XR chest 1V portable Stat Exams 05/31/25 02:40 Completed B-Type Natriuretic Peptide Stat Lab 05/31/25 02:23 Completed BNP [B-Type Natriuretic Peptide] Stat Lab 05/31/25 01:26 Completed Blood Culture (Lab) Stat Lab 05/31/25 02:20 Results CBC Stat Lab 05/31/25 01:26 Completed CBC Stat Lab 05/31/25 02:23 Completed CMP [Comprehensive Metabolic Panel] Stat Lab 05/31/25 02:23 Completed Drug Screen,Urine Stat Lab 05/31/25 01:26 Completed LDH (Lactate Dehydrogenase) Stat Lab 05/31/25 02:23 Completed Lactic Acid [Lactate (Lactic Acid)] Stat Lab 05/31/25 02:23 Completed Lipase Stat Lab 05/31/25 02:23 Completed Magnesium Stat Lab 05/31/25 02:23 Completed Partial Thromboplastin Time Stat Lab 05/31/25 02:50 Completed Phosphorous Stat Lab 05/31/25 02:23 Completed Procalcitonin Stat Lab 05/31/25 02:23 Completed Prothrombin Time with INR Stat Lab 05/31/25 02:50 Completed Troponin I Stat Lab 05/31/25 02:23 Completed UA, C/S IF [Urinalysis, C/S if Indicated] Stat Lab 05/31/25 01:26 Completed Urine Culture Stat Lab 05/31/25 01:26 Completed Dextrose 10%-Water [D10w] 500 ml Med 05/31/25 04:02 Discontinued IV 100 mls/hr Dextrose 50% Syr [D50w Syringe Abboject] Med 05/31/25 03:40 Discontinued 50 ml .ROUTE .STK-MED ONE Dextrose 50% Syr [D50w Syringe Abboject] Med 05/31/25 04:02 Discontinued 50 ml .ROUTE .STK-MED ONE Dextrose 50% Syr [D50w Syringe Abboject] Med 05/31/25 03:41 Discontinued 50 ml IVP X1 ONE Dextrose 50% Syr [D50w Syringe Abboject] Med 05/31/25 04:02 Discontinued 50 ml IVP X1 ONE Levofloxacin/D5w 500 mg Ivpb [Levaquin Ivpb] Med 05/31/25 02:30 Discontinued 500 mg in 100 ml IV X1 Prochlorperazine Inj [Compazine Inj] Med 05/31/25 03:34 Discontinued 5 mg IV X1 ONE Sodium Chloride 0.9% 250 ml [Ns] 250 ml Med 05/31/25 03:42 Discontinued IV 999 mls/hr fentaNYL INJ [Sublimaze Inj] Med 05/31/25 03:34 Discontinued 50 mcg IVP X1 ONE Oxygen Delivery NOW RT 05/31/25 02:27 Active Vital Signs Vital signs: Vital Signs Temperature 98.2 F 05/31/25 01:03 Pulse Rate 120 H 05/31/25 01:03 Respiratory Rate 19 05/31/25 01:03 Blood Pressure 102/80 05/31/25 01:03 Pulse Oximetry (%) 99 05/31/25 01:03 Oxygen Delivery Method Nasal Cannula 05/31/25 01:03 Oxygen Flow Rate 2 05/31/25 01:03 PROCEDURES: Central Line Placement Left SC: Time Out Performed: Yes Patient Placed on Monitor/Pulse Ox: Yes Hand Hygiene: scrub, soap & water and alcohol-based hand rub Max Sterile Barrier Techniques used: cap, mask, sterile gown, sterile gloves and sterile full body drape Central Line Prep: Povidone-Iodine 1% Local Anesthetic: lidocaine 1% Amount of anesthesia used (mL): 5 Ultrasound Used for Placement: Yes Sterile Technique if Ultrasound used, including sterile gel: yes Central Line Lumen Inserted: triple Post Procedure: sutured in place, good blood return, all ports aspirated, flushed, capped and sterile dressing applied Post Procedure X-Ray: tip of catheter in good position and no pneumothorax seen Patient Tolerated Procedure: well Complications: none Nausea/Vomiting/Diarrhea MDM Narrative MDM Narrative:: Scribe Attestation: I, Kristen Junior, am scribing for and in the presence of Dr. Shea. Provider Notation: Although this document has been carefully reviewed, there may still be some phonetic and other typographical errors. These errors are purely grammatical due to imperfections in the software program and should not be construed in any way to compromise the substance of the patient's medical care during this visit. Patient with Hx of ESR on hemodialysis/Atrial fibrillation on anti-coagulant presents with persistent nausea and vomiting throughout the day. No abdominal pain or distention. Please see PE findings. Laboratory markers demonstrated WBC of 20.6, HNH of 10.6/37, platelet count of 289, left shift with no associated bandemia. Serum chemistries demonstrate eloevated Potassium of 5.9, CO2 less than 10, Anion Gap of 36, Creatinine of 4.0, and Lactic Acid of 20. BNP of 2757 and Lipase elevated at 70. UA demonstrates evidence of infection with signs of pyuria. Patient placed on filling machine operator and entered onto sepsis protocol. After found to be hypoglycemic, administered incremental dextrose to normalize, imperic ABX after culture. Patient BP trended downward (please refer to procedure note for left subclavian central line). Discussed case with hospitalist, hospitalist examined patient at bedside. Patient will be admitted to ICU for further evaluation and treatment. Final diagnosis includes septic shock, severe hypoglcyemia, and UTI. Sepsis Reassessment 0630 VS improved with BP 110 systolic /Perfusion improved / Mentation improved and persistent hypoglycemia resolved Patient data External records reviewed:: [facility] previous records (Reviewed prior ED records from 05/17/25. Patient was seen for ESRD (end stage renal disease).) Clinical information provided by:: patient Social determinants that could affect healthcare access:: none Patient has the following chronic illnesses:: Cerebrovascular Accident, Atrial Fibrillation, Hypertension, Diabetes Mellitus Type 2 How is presenting disease/condition affected by chronic disease/condition?: exacerbated by Evaluation data The following diagnostics were reviewed and interpreted by me:: lab results and radiology exam(s) Lab and/or radiology exams considered but not ordered:: None Interpretation Summary: RADIOLOGY Chest X-Ray: Findings: Mild heart failure Moderate enlargement cardiac contour, enlarged ectatic thoracic aorta. Prominent vascular congestion with early septal edema at the lung bases Right internal jugular dialysis catheter satisfactory position Moderate osteopenia Impression: Mild heart failure No lobar pneumonia Post-procedure Chest X-Ray: Findings: Left subclavian central line tip SVC satisfactory position, no pneumothorax Mild to moderate CHF, enlarged cardiac contour with prominent vascular congestion and significant perihilar edema Right internal jugular dialysis catheter tip SVC satisfactory position Impression: Left subclavian central line tip satisfactory position, no pneumothorax Medications / Prescriptions Medications / Prescriptions considered but not ordered:: None Medication administrations:: Medication Administration History Acetaminophen (Acetaminophen 325 Mg Tablet) 650 mg PO Q6H PRN PRN Reason: Fever >101.5 Stop: 06/30/25 04:24 Hydrocodone Bitart/Acetaminophen (Hydrocodone/Apap 5/325 Tablet) 1 tab PO Q8HR PRN PRN Reason: Pain 4-10 Stop: 06/05/25 18:31 Last Admin: 05/31/25 20:13 Dose: 1 tab Documented By: CARLOS A Amiodarone HCl (Amiodarone Hcl 200 Mg Tablet) 200 mg PO BID RIANNA Stop: 06/30/25 20:59 Last Admin: 06/01/25 21:17 Dose: 200 mg Documented By: CARLOS A Admin: 06/01/25 09:02 Dose: 200 mg Documented By: Admin: 05/31/25 21:57 Dose: 200 mg Documented By: CARLOS A Dextrose (Dextrose 50%-Water Inj 50 Ml Syringe) 25 ml IV Q15MIN PRN PRN Reason: BG 50-70 responsive npo pt Stop: 06/30/25 04:27 Dextrose (Dextrose 50%-Water Inj 50 Ml Syringe) 50 ml IV Q15MIN PRN PRN Reason: BG <50 OR BG <70 & pt unresponsive Stop: 06/30/25 04:27 Last Admin: 05/31/25 19:52 Dose: 50 ml Documented By: CARLOS A Divalproex Sodium (Divalproex Sod 125 Mg Sprinkle) 250 mg PO TID RIANNA Stop: 06/30/25 21:59 Last Admin: 06/02/25 06:11 Dose: 250 mg Documented By: Admin: 06/01/25 21:18 Dose: 250 mg Documented By: CARLOS A Admin: 06/01/25 16:31 Dose: 250 mg Documented By: Admin: 06/01/25 06:08 Dose: 250 mg Documented By: CARLOS A Admin: 05/31/25 22:01 Dose: 250 mg Documented By: CARLOS A Epoetin Jemal (Epoetin Jemal-Epbx Inj 10,000 Unit/Ml Vial (Esrd)) 10,000 unit SC 2 X WEEKLY RIANNA Stop: 07/02/25 08:59 Glucagon (Glucagon Inj 1 Mg Vial) 1 mg IM Q15MIN PRN PRN Reason: BG <70, and no IV access Heparin Sodium (Porcine) (Heparin Sod Inj 5000 Unit/Ml Vial) 5,000 unit SC Q8HR RIANNA Stop: 06/14/25 20:59 Last Admin: 06/02/25 06:11 Dose: 5,000 unit Documented By: SHILPA Co-signed By: ASHLEY Admin: 06/01/25 21:18 Dose: 5,000 unit Documented By: CARLOS A Co-signed By: SHILPA Admin: 06/01/25 16:23 Dose: 5,000 unit Documented By: Co-signed By: ED Admin: 06/01/25 06:09 Dose: 5,000 unit Documented By: CARLOS A Co-signed By: SS Admin: 05/31/25 21:57 Dose: 5,000 unit Documented By: CALROS A Co-signed By: AIDA Heparin Sodium (Porcine) (Heparin Sod Inj 1000 Unit/Ml Vial 10 Ml) 3,300 unit INDWELLCAT X1 PRN PRN Reason: DIALYSIS Stop: 06/16/25 08:05 Meropenem 500 mg/ Sodium (Chloride) 50 mls @ 100 mls/hr IV QDAY RIANNA; Protocol Stop: 06/07/25 05:59 Last Admin: 06/01/25 09:02 Dose: 100 mls/hr Documented By: CHEYENNE Dextrose (D10w) 500 mls @ 50 mls/hr IV .Q10H RIANNA On Hold: 05/31/25 06:44 Last Infusion: 05/31/25 05:44 Dose: 0 mls/hr Documented By: GINO Co-signed By: [email or web address] Admin: 05/31/25 05:04 Dose: 50 mls/hr Documented By: DT Co-signed By: GINO Albumin Human (Albuminex 25% Ivpb) 25 gm in 100 mls @ 100 mls/min IV PRN PRN PRN Reason: DIALYSIS Last Infusion: 06/01/25 13:35 Dose: Infused Documented By: Admin: 06/01/25 13:34 Dose: 100 mls/min Documented By: Infusion: 05/31/25 10:41 Dose: Infused Documented By: Admin: 05/31/25 10:40 Dose: 100 mls/min Documented By: ED Norepinephrine/Dextrose (Levophed In D5w 8mg/250ml) 8 mg in 250 mls @ 9.731 mls/hr IV .Q24H PRN; Protocol PRN Reason: PER PROTOCOL Stop: 06/30/25 04:39 Levothyroxine Sodium (Levothyroxine Sodium 25 Mcg Tablet) 50 mcg PO ACBR RIANNA Stop: 07/01/25 05:59 Last Admin: 06/02/25 06:11 Dose: 50 mcg Documented By: Admin: 06/01/25 06:09 Dose: 50 mcg Documented By: CARLOS A Midodrine (Midodrine 5 Mg Tablet) 10 mg PO Q6HR RIANNA Stop: 07/02/25 00:00 Last Admin: 06/02/25 06:11 Dose: 10 mg Documented By: Admin: 06/01/25 23:55 Dose: 10 mg Documented By: SHILPA Ondansetron HCl (Ondansetron Inj 2 Mg/Ml Inj 2 Ml) 4 mg IVP Q6H PRN; Protocol PRN Reason: NAUSEA OR VOMITING Stop: 06/30/25 04:24 Last Admin: 06/01/25 09:01 Dose: 4 mg Documented By: Admin: 06/01/25 02:01 Dose: 4 mg Documented By: Admin: 05/31/25 15:34 Dose: 4 mg Documented By: MG Ropinirole HCl (Ropinirole Hcl 1 Mg Tablet) 1 mg PO QDAY RIANNA Stop: 07/01/25 08:59 Last Admin: 06/01/25 09:03 Dose: 1 mg Documented By: CHEYENNE Discontinued Medications Hydrocodone Bitart/Acetaminophen (Hydrocodone/Apap 5/325 Tablet) 1 tab PO Q8HR PRN PRN Reason: PAIN SCALE 4-10(Mod-Sev Stop: 06/05/25 04:29 Dextrose (Dextrose 50%-Water Inj 50 Ml Syringe) 50 ml IVP X1 ONE Stop: 05/31/25 03:42 Last Admin: 05/31/25 03:45 Dose: 50 ml Documented By: GINO Dextrose (Dextrose 50%-Water Inj 50 Ml Syringe) Confirm Administered Dose 50 ml .ROUTE .STK-MED ONE Stop: 05/31/25 03:41 Last Admin: 05/31/25 03:44 Dose: Not Given Documented By: GINO Non-Admin Reason: Duplicate Medication on eMAR Dextrose (Dextrose 50%-Water Inj 50 Ml Syringe) 50 ml IVP X1 ONE Stop: 05/31/25 04:03 Last Admin: 05/31/25 04:07 Dose: 50 ml Documented By: XAVIER Dextrose (Dextrose 50%-Water Inj 50 Ml Syringe) Confirm Administered Dose 50 ml .ROUTE .STK-MED ONE Stop: 05/31/25 04:03 Last Admin: 05/31/25 04:07 Dose: Not Given Documented By: XAVIER Non-Admin Reason: Duplicate Medication on eMAR Dextrose (Dextrose 50%-Water Inj 50 Ml Syringe) 100 ml IVP X1 ONE Stop: 05/31/25 04:28 Last Admin: 05/31/25 04:30 Dose: 100 ml Documented By: XAVIER Dextrose (Dextrose 50%-Water Inj 50 Ml Syringe) Confirm Administered Dose 100 ml .ROUTE .STK-MED ONE Stop: 05/31/25 04:26 Last Admin: 05/31/25 04:32 Dose: Not Given Documented By: DT Non-Admin Reason: Duplicate Medication on eMAR Fentanyl Citrate (Fentanyl Cit Inj 50 Mcg/Ml Amp 2ml) 50 mcg IVP X1 ONE Stop: 05/31/25 03:35 Last Admin: 05/31/25 03:53 Dose: 50 mcg Documented By: XAVIER Fentanyl Citrate (Fentanyl Cit Inj 50 Mcg/Ml Amp 2ml) 25 mcg IVP X1 ONE Stop: 05/31/25 04:45 Last Admin: 05/31/25 04:50 Dose: 25 mcg Documented By: DT Heparin Sodium (Porcine) (Heparin Sod Inj 5000 Unit/Ml Vial) 5,000 unit SC Q8HR RINANA Stop: 06/14/25 08:59 Heparin Sodium (Porcine) (Heparin Sod Inj 5000 Unit/Ml Vial) 5,000 unit SC Q8HR RIANNA Stop: 06/14/25 09:44 Last Admin: 05/31/25 16:30 Dose: Not Given Documented By: KOBI Non-Admin Reason: Discontinued Admin: 05/31/25 12:33 Dose: 5,000 unit Documented By: MV Co-signed By: MG Heparin Sodium (Porcine) (Heparin Sod Inj 1000 Unit/Ml Vial 10 Ml) 3,300 unit INDWELLCAT X1 PRN PRN Reason: DIALYSIS Last Admin: 05/31/25 11:09 Dose: 3,300 unit Documented By: ED Co-signed By: KOBI Heparin Sodium (Porcine) (Heparin Sod Inj 1000 Unit/Ml Vial 10 Ml) 3,300 unit INDWELLCAT X1 PRN PRN Reason: DIALYSIS Last Admin: 06/01/25 15:35 Dose: 3,300 unit Documented By: ED Co-signed By: MG Levofloxacin/Dextrose (Levaquin Ivpb) 500 mg in 100 mls @ 100 mls/hr IV X1 ONE Stop: 05/31/25 03:29 Last Infusion: 05/31/25 03:58 Dose: Infused Documented By: Admin: 05/31/25 02:46 Dose: 100 mls/hr Documented By: GINO Sodium Chloride (Ns) 250 mls @ 999 mls/hr IV .Q16M ONE Stop: 05/31/25 03:57 Last Infusion: 05/31/25 04:09 Dose: Infused Documented By: Admin: 05/31/25 03:46 Dose: 999 mls/hr Documented By: HV Dextrose (D10w) 500 mls @ 100 mls/hr IV .Q5H RIANNA Stop: 05/31/25 09:01 Last Infusion: 05/31/25 05:03 Dose: 0 mls/hr Documented By: DT Co-signed By: [email or web address] Admin: 05/31/25 04:06 Dose: 100 mls/hr Documented By: DT Co-signed By: EE Meropenem 1,000 mg/ Sodium (Chloride) 50 mls @ 100 mls/hr IV X1 ONE Stop: 05/31/25 05:14 Last Infusion: 05/31/25 06:08 Dose: Infused Documented By: Admin: 05/31/25 05:38 Dose: 100 mls/hr Documented By: GINO Norepinephrine/Dextrose (Levophed In D5w 8mg/250ml) 8 mg in 250 mls @ 7.654 mls/hr IV .Q24H PRN; Protocol PRN Reason: PER PROTOCOL Stop: 06/30/25 04:39 Last Titration: 06/01/25 06:00 Dose: 0.11 mcg/kg/min, 16.84 mls/hr Documented By: Titration: 06/01/25 05:00 Dose: 0.11 mcg/kg/min, 16.84 mls/hr Documented By: Titration: 06/01/25 04:00 Dose: 0.11 mcg/kg/min, 16.84 mls/hr Documented By: Titration: 06/01/25 03:00 Dose: 0.11 mcg/kg/min, 16.84 mls/hr Documented By: Titration: 06/01/25 02:00 Dose: 0.11 mcg/kg/min, 16.84 mls/hr Documented By: Titration: 06/01/25 01:07 Dose: 0.11 mcg/kg/min, 16.84 mls/hr Documented By: Titration: 06/01/25 01:00 Dose: 0.09 mcg/kg/min, 13.778 mls/hr Documented By: Titration: 06/01/25 00:31 Dose: 0.09 mcg/kg/min, 13.778 mls/hr Documented By: Titration: 06/01/25 00:00 Dose: 0.07 mcg/kg/min, 10.716 mls/hr Documented By: Titration: 05/31/25 23:00 Dose: 0.07 mcg/kg/min, 10.716 mls/hr Documented By: Titration: 05/31/25 22:55 Dose: 0.07 mcg/kg/min, 10.716 mls/hr Documented By: Titration: 05/31/25 22:00 Dose: 0.05 mcg/kg/min, 7.654 mls/hr Documented By: Titration: 05/31/25 21:12 Dose: 0.05 mcg/kg/min, 7.654 mls/hr Documented By: Titration: 05/31/25 21:00 Dose: 0.03 mcg/kg/min, 4.593 mls/hr Documented By: Titration: 05/31/25 20:00 Dose: 0.03 mcg/kg/min, 4.593 mls/hr Documented By: Titration: 05/31/25 19:35 Dose: 0.05 mcg/kg/min, 7.654 mls/hr Documented By: Titration: 05/31/25 18:31 Dose: 0 mcg/kg/min, 0 mls/hr Documented By: Admin: 05/31/25 18:15 Dose: 0.01 mcg/kg/min, 1.531 mls/hr Documented By: Titration: 05/31/25 18:15 Dose: Infused Documented By: Titration: 05/31/25 18:00 Dose: 0.03 mcg/kg/min, 4.593 mls/hr Documented By: Titration: 05/31/25 17:16 Dose: 0.03 mcg/kg/min, 4.593 mls/hr Documented By: Titration: 05/31/25 17:00 Dose: 0.05 mcg/kg/min, 7.654 mls/hr Documented By: Titration: 05/31/25 16:16 Dose: 0.05 mcg/kg/min, 7.654 mls/hr Documented By: Titration: 05/31/25 16:02 Dose: 0.07 mcg/kg/min, 10.716 mls/hr Documented By: Titration: 05/31/25 16:00 Dose: 0.09 mcg/kg/min, 13.778 mls/hr Documented By: Titration: 05/31/25 15:31 Dose: 0.09 mcg/kg/min, 13.778 mls/hr Documented By: Titration: 05/31/25 15:00 Dose: 0.11 mcg/kg/min, 16.84 mls/hr Documented By: Titration: 05/31/25 14:46 Dose: 0.11 mcg/kg/min, 16.84 mls/hr Documented By: Titration: 05/31/25 14:16 Dose: 0.13 mcg/kg/min, 19.901 mls/hr Documented By: Titration: 05/31/25 14:00 Dose: 0.11 mcg/kg/min, 16.84 mls/hr Documented By: Titration: 05/31/25 13:30 Dose: 0.11 mcg/kg/min, 16.84 mls/hr Documented By: Titration: 05/31/25 13:16 Dose: 0.09 mcg/kg/min, 13.778 mls/hr Documented By: Titration: 05/31/25 13:00 Dose: 0.11 mcg/kg/min, 16.84 mls/hr Documented By: Titration: 05/31/25 12:30 Dose: 0.11 mcg/kg/min, 16.84 mls/hr Documented By: Titration: 05/31/25 12:16 Dose: 0.13 mcg/kg/min, 19.901 mls/hr Documented By: Titration: 05/31/25 12:00 Dose: 0.15 mcg/kg/min, 22.963 mls/hr Documented By: Titration: 05/31/25 11:45 Dose: 0.17 mcg/kg/min, 26.025 mls/hr Documented By: Titration: 05/31/25 11:00 Dose: 0.19 mcg/kg/min, 29.087 mls/hr Documented By: Titration: 05/31/25 10:16 Dose: 0.19 mcg/kg/min, 29.087 mls/hr Documented By: Titration: 05/31/25 10:01 Dose: 0.17 mcg/kg/min, 26.025 mls/hr Documented By: Titration: 05/31/25 10:00 Dose: 0.15 mcg/kg/min, 22.963 mls/hr Documented By: Titration: 05/31/25 09:17 Dose: 0.15 mcg/kg/min, 22.963 mls/hr Documented By: Titration: 05/31/25 09:00 Dose: 0.09 mcg/kg/min, 13.778 mls/hr Documented By: Titration: 05/31/25 08:00 Dose: 0.09 mcg/kg/min, 13.778 mls/hr Documented By: Titration: 05/31/25 07:00 Dose: 0.09 mcg/kg/min, 13.778 mls/hr Documented By: Titration: 05/31/25 06:45 Dose: 0.09 mcg/kg/min, 13.778 mls/hr Documented By: Titration: 05/31/25 06:15 Dose: 0.07 mcg/kg/min, 10.716 mls/hr Documented By: Titration: 05/31/25 06:10 Dose: 0.07 mcg/kg/min, 10.716 mls/hr Documented By: Titration: 05/31/25 05:42 Dose: 0.05 mcg/kg/min, 7.654 mls/hr Documented By: Titration: 05/31/25 05:10 Dose: 0.03 mcg/kg/min, 4.593 mls/hr Documented By: Titration: 05/31/25 04:55 Dose: 0.05 mcg/kg/min, 7.654 mls/hr Documented By: Titration: 05/31/25 04:45 Dose: 0.05 mcg/kg/min, 7.654 mls/hr Documented By: Admin: 05/31/25 04:40 Dose: 0.05 mcg/kg/min, 7.654 mls/hr Documented By: DT Norepinephrine/Dextrose (Levophed In D5w 8mg/250ml) Confirm Administered Dose 8 mg in 250 mls @ ud IV .STK-MED ONE Stop: 05/31/25 04:41 Last Admin: 05/31/25 04:46 Dose: Not Given Documented By: DT Non-Admin Reason: Duplicate Medication on eMAR Meropenem 500 mg/ Sodium (Chloride) 50 mls @ 100 mls/hr IV X1 ONE Stop: 05/31/25 14:14 Last Admin: 05/31/25 13:49 Dose: 100 mls/hr Documented By: KOBI Midodrine (Midodrine 5 Mg Tablet) 10 mg PO QID RIANNA Stop: 07/01/25 08:59 Last Admin: 06/01/25 16:22 Dose: 10 mg Documented By: Admin: 06/01/25 12:37 Dose: 10 mg Documented By: Admin: 06/01/25 09:18 Dose: 10 mg Documented By: CHE[place]NE Prochlorperazine Edisylate (Prochlorperazine Inj 5 Mg/Ml Vial 2 Ml) 5 mg IV X1 ONE; Protocol Stop: 05/31/25 03:35 Last Admin: 05/31/25 03:45 Dose: 5 mg Documented By: GINO Ropinirole HCl (Ropinirole Hcl 1 Mg Tablet) 1 mg PO TID RIANNA Stop: 06/30/25 21:59 Sodium Bicarbonate (Sodium Bicarb Inj 8.4% Syr 50 Ml Syringe) 100 ml IV X1 ONE Stop: 05/31/25 04:33 Last Admin: 05/31/25 04:42 Dose: 100 ml Documented By: DT Sodium Bicarbonate (Sodium Bicarb Inj 8.4% Syr 50 Ml Syringe) Confirm Administered Dose 100 ml IV .STK-MED ONE Stop: 05/31/25 04:36 Last Admin: 05/31/25 04:42 Dose: Not Given Documented By: XAVIER Non-Admin Reason: Duplicate Medication on eMAR See above if any Consultations Consultation(s) initiated? (list below): Yes Consultation #1 (Physician, Specialty, Details): Discussed with Dr. Nguyen for admission. Reviewed the patient?s HPI, PMHx, lab and/or radiology results. Discussed treatment plan. Will consult an admission to the hospitalist. Time: 04:20 Diagnosis Nausea Differential Diagnosis: food poisoning, gastroenteritis, clostridium difficile infection, drug-induced nausea and vomiting, dehydration and other (Sepsis, Viral illness) Most likely diagnosis given after review of the tests above:: Septic shock, Hypoglycemia, UTI (urinary tract infection) Admission Indicated Admission indicated?: indicated Explain why admission is indicated or not indicated:: Septic shock, Hypoglycemia, UTI (urinary tract infection) Admission Request Was there a request for admission?: Yes Admission Attestation Admission request attestation: Discussed case with [] from Hospitalist service regarding admission. Discussed patients ED course, exam findings, labs, and radiology results. The Hospitalist [agrees,declines] to accept the patient for admission. Disposition Plan Disposition Plan: Admit Discharge Plan Plan Patient Disposition: Admit Acute Care w/in Hospital Problem List Clinical Impression: Septic shock, Hypoglycemia, UTI (urinary tract infection)
[2025-05-31] MEDS: Norepinephrine/D5W 8mg/250ml 8 MG/250 ML BAG 7.654 MG IV (04:40)
[2025-05-31] MEDS: Sodium Bicarb Inj 8.4% SYR 50 ML SYRINGE 100 ML IV (04:42)
[2025-05-31] MEDS: fentaNYL CIT INJ 50 mCg/ML AMP 2ML 25 MCG IVP (04:50)
--- NOTE | 2025-05-31 04:56 | XR_ITS ---
Examination: AP chest single view Technique one AP portable supine chest single view Date and time: May 31, 2025, 0458 hrs., Comparison 05/31/2025 at 0254 hrs. Indications: Post central line placement Findings: Left subclavian central line tip SVC satisfactory position, no pneumothorax Mild to moderate CHF, enlarged cardiac contour with prominent vascular congestion and significant perihilar edema Right internal jugular dialysis catheter tip SVC satisfactory position Impression: Left subclavian central line tip satisfactory position, no pneumothorax
[2025-05-31] MEDS: DEXTROSE 10%-WATER 500 ML 50 ML IV (05:04)
[2025-05-31 05:07] LABS: Base Excess, Venous -21 (-3-3); O2 Saturation, Venous 87 % (96-97); PCO2, Venous 20 mmHg (36-56); PO2, Venous 63 mmHg (15-58); pH, Venous 7.12 (7.33-7.66)
[2025-05-31 05:08] LABS: Basophils # (Auto) 0.1 Thou/mm3 (0.0-0.2); Basophils % (Auto) 0 % (0-2.5); Eosinophils # (Auto) 0.0 Thou/mm3 (0.0-0.5); Eosinophils % (Auto) 0 % (0-10); Hematocrit 32.1 % (36.0-46.0); Hemoglobin 9.1 g/dL (12.0-16.0); Immature Granulocytes Auto 1.40 Thou/mm3 (0.00-0.00); Lymphocytes # (Auto) 1.2 Thou/mm3 (1.0-4.8); Lymphocytes % (Auto) 6 % (10-50); Mean Corpuscular HGB Conc 28.3 g/dl (31.0-37.0); Mean Corpuscular Hemoglobin 32.7 pg (25.0-35.0); Mean Corpuscular Volume 116 fL (80-100); Monocytes # (Auto) 1.1 Thou/mm3 (0.0-0.8); Monocytes % (Auto) 5 % (0-12); Neutrophils # (Auto) 16.9 Thou/mm3 (1.8-7.7); Neutrophils % (Auto) 82 % (37-80); Nucleated Red Blood Cell # 0.18 Thou/mm3 (0.00-0.00); Nucleated Red Blood Cell % 1 /100 WBC (0); Platelet Count 289 Thou/mm3 (140-440); RDW Standard Deviation 97.5 fL (36.4-46.3); Red Blood Count 2.78 Miln/mm3 (4.00-5.20); White Blood Count 20.6 Thou/mm3 (3.6-11.0)
--- NOTE | 2025-05-31 05:12 | PD.RESHP ---
Documentation for date of: 05/31/25 [facility] History of Present Illness History of present illness: A 64-year-old female with a medical history significant for 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 Landry, and a history of staghorn calculi, was transferred to the emergency department from a nursing facility with chief complaints of abdominal pain, nausea, and vomiting. The patient had been recently discharged from [facility] on 05/25/2025, where she had been admitted for sepsis secondary to a urinary tract infection . Upon evaluation, the patient was alert and oriented to person, place, and time (AO x 3), and able to appropriately respond to questions. She reported feeling nauseous and experiencing mild abdominal pain for the past 1.5 days, but denied any dysuria or burning sensation during urination. On presentation, the patient was hemodynamically stable. Laboratory findings included anemia (hemoglobin of 10.6), leukocytosis (WBC of 23.7), hyperkalemia (potassium of 5.9), metabolic acidosis with bicarbonate of <10, anion gap of 32, BUN of 39, creatinine of 3.8, eGFR of 13, glucose of 11, lactic acidosis (lactate of 10), phosphorus of 6.5, BMP of 2757, and LDH of 257. EKG showed A-fib. In the ED, the patient received multiple boluses of D50 to address hypoglycemia, but her blood glucose levels did not improve. As a result, she was started on a D10 drip. During the interview, her blood pressure dropped with MAP below 65, necessitating the initiation of Levophed drip. A central line was placed in the ED. Additionally, bicarbonate pushes were given to address the underlying acidosis, likely secondary to ESRD. A review of the patient?s chart revealed that she had been receiving metformin at the nursing facility, which may have contributed to the severe lactic acidosis. Given the complexity of her condition, the patient was admitted to the ICU for further management. Review of Systems Review of Systems Systems Reviewed: All systems reviewed, normal except as documented Past Medical History Past Medical History NEUROLOGIC: Positive Neurological Disorders and Cerebrovascular Accident CARDIAC: Positive Atrial Fibrillation and Hypertension ENDOCRINE: Positive Endocrine Disorders and Diabetes Mellitus Type 2 Social History SMOKING STATUS: Former smoker Exam Vital Signs Temp Pulse Resp BP Pulse Ox O2 Del Method O2 Flow Rate 98.6 F 103 H 14 85/54 L 95 Nasal Cannula 2 05/31/25 03:30 05/31/25 04:59 05/31/25 04:59 05/31/25 04:46 05/31/25 04:09 05/31/25 04:09 05/31/25 04:09 Narrative Exam GENERAL: Sleepy and oriented x3 appears older than stated age HEENT: NC/AT, mucous membranes dry, bilateral sclera anicteric CARDIOVASCULAR: irregular rhythm, regular rate, no murmurs able to be appreciated,HD cath noted, lIJ in place PULMONARY: no rales/rhonchi/wheezes ABDOMINAL: soft, non-tender, non-distended, no rebound/guarding, bowel sounds present EXTREMITIES: 3+ pitting edema of LE, L heel wound, contracture of L hand, NEURO: alert, following commands, not fully assesed Results: Labs 05/31/25 05:04 05/31/25 05:04 Labs: Short CBC 05/31/25 05/31/25 Range/Units 01:26 02:23 WBC 21.4 H D 23.7 H (3.6-11.0) Thou/mm3 Hgb 10.5 L 10.6 L (12.0-16.0) g/dL Hct 36.6 37.2 (36.0-46.0) % Plt Count 319 D 358 D (140-440) Thou/mm3 BMP 05/31/25 02:23 Sodium 141 Potassium 5.9 H Chloride 99 Carbon Dioxide < 10.0 L* BUN 39 H Creatinine 3.8 H D Glucose 11 L* Calcium 10.0 Cardiac Enzymes 05/31/25 Range/Units 02:23 Troponin I 0.020 (0.0-0.045) ng/mL Liver Function 05/31/25 Range/Units 02:23 Total Bilirubin 0.5 (0.3-1.2) mg/dL AST 14 (0-34) U/L ALT 11 (10-49) U/L Alkaline Phosphatase 93 (46-116) U/L Albumin 3.8 (3.4-4.8) gm/dL Urine 05/31/25 Range/Units 01:26 Urine Color Lt-Yellow (Lt Yel-Yel) Urine Clarity Turbid A (Clear/Hazy) Urine pH 5.5 (5.0-7.0) Ur Specific [place] 1.007 (1.001-1.035) Urine Protein 1+ A (Neg - Trace) Urine Glucose (UA) Negative (Negative) Quality Measures Quality Measures VTE prophylaxis Medications Home Medications and Allergies Home Medications ?Medication ?Instructions ?Recorded ?Confirmed ?Type levothyroxine 50 mcg tablet 50 mcg PO QDAY #0 tabs 09/10/15 05/17/25 History magnesium hydroxide 400 mg/5 mL 30 ml PO Q72H PRN CONSTIPATION #0 09/11/15 05/18/25 History oral suspension (Milk of Magnesia) mL multivitamin with minerals 1 tab PO QDAY ##0 09/11/15 05/17/25 History ascorbic acid (vitamin C) 500 mg 500 mg PO BID 03/12/19 05/17/25 History tablet atorvastatin 20 mg/5 mL (4 mg/mL) 20 mg PO QDAY 05/01/25 05/18/25 History oral suspension (AtorvaliQ) brimonidine 0.2 % eye drops 1 drp ophthalmic (eye) HS 05/01/25 05/18/25 History divalproex 250 mg tablet,extended 250 mg PO TID 05/01/25 05/17/25 History release 24 hr (Depakote ER) hydrocodone 10 mg-acetaminophen 1 tab PO Q8H 05/01/25 05/18/25 History 325 mg tablet hydroxyzine HCl 25 mg tablet 25 mg PO BID 05/01/25 05/18/25 History lasix 40 mg PO DAILY 05/01/25 05/18/25 History loperamide 2 mg tablet 4 mg PO Q6H PRN loose stool 05/01/25 05/18/25 History loratadine 10 mg tablet 10 mg PO Q24H 05/01/25 05/18/25 History melatonin 3 mg capsule 3 mg PO HS PRN sleep 05/01/25 05/17/25 History metoprolol succinate 50 mg 50 mg PO QDAY 05/01/25 05/18/25 History tablet,extended release 24 hr Held on 05/25/25. Instructions: Hold until you follow-up with your PCP ondansetron HCl 4 mg tablet 4 mg PO Q6H 05/01/25 05/18/25 History polyethylene glycol 3350 17 gram 17 g PO QDAY 05/01/25 05/18/25 History oral powder packet potassium chloride 10 mEq 10 meq PO BID 05/01/25 05/18/25 History tablet,extended release Held on 05/25/25. Instructions: Hold until you see your PCP psyllium husk 0.52 gram capsule 0.52 g PO BID 05/01/25 05/18/25 History (Fiber Laxative (psyllium husk)) ropinirole 1 mg tablet 1 mg PO QDAY 05/01/25 05/18/25 History sennosides 8.6 mg-docusate sodium 2 tab-cap PO BID 05/01/25 05/18/25 History 50 mg tablet (Senna-S) sodium phosphates 19 gram-[address] QDAY PRN constipation 05/01/25 05/18/25 History gram/118 mL enema (Enema) Allergies Allergy/AdvReac Type Severity Reaction Status Date / Time Cephalexin Monohydrate Allergy Severe Anaphylaxis Verified 05/31/25 01:13 sulfamethoxazole Allergy Severe Anaphylaxis Verified 05/31/25 01:13 trimethoprim Allergy Severe Anaphylaxis Verified 05/31/25 01:13 Visit Medications Acetaminophen (Acetaminophen 325 Mg Tablet) 650 mg PO Q6H PRN PRN Reason: Fever >101.5 Stop: 06/30/25 04:24 Hydrocodone Bitart/Acetaminophen (Hydrocodone/Apap 5/325 Tablet) 1 tab PO Q8HR PRN PRN Reason: PAIN SCALE 4-10(Mod-Sev Stop: 06/05/25 04:29 Dextrose (Dextrose 50%-Water Inj 50 Ml Syringe) 25 ml IV Q15MIN PRN PRN Reason: BG 50-70 responsive npo pt Stop: 06/30/25 04:27 Dextrose (Dextrose 50%-Water Inj 50 Ml Syringe) 50 ml IV Q15MIN PRN PRN Reason: BG <50 OR BG <70 & pt unresponsive Stop: 06/30/25 04:27 Glucagon (Glucagon Inj 1 Mg Vial) 1 mg IM Q15MIN PRN PRN Reason: BG <70, and no IV access Meropenem 1,000 mg/ Sodium (Chloride) 50 mls @ 100 mls/hr IV Q8HR RIANNA Stop: 06/07/25 05:59 Meropenem 1,000 mg/ Sodium (Chloride) 50 mls @ 100 mls/hr IV X1 ONE Stop: 05/31/25 05:14 Norepinephrine/Dextrose (Levophed In D5w 8mg/250ml) 8 mg in 250 mls @ 7.654 mls/hr IV .Q24H PRN; Protocol PRN Reason: PER PROTOCOL Stop: 06/30/25 04:39 Last Titration: 05/31/25 04:55 Dose: 0 mcg/kg/min, 0.05 mls/hr Dextrose (D10w) 500 mls @ 50 mls/hr IV .Q10H RIANNA Stop: 05/31/25 14:59 Last Admin: 05/31/25 05:04 Dose: 50 mls/hr Ondansetron HCl (Ondansetron Inj 2 Mg/Ml Inj 2 Ml) 4 mg IVP Q6H PRN; Protocol PRN Reason: NAUSEA OR VOMITING Stop: 06/30/25 04:24 Discontinued Medications Dextrose (Dextrose 50%-Water Inj 50 Ml Syringe) 50 ml IVP X1 ONE Stop: 05/31/25 03:42 Last Admin: 05/31/25 03:45 Dose: 50 ml Dextrose (Dextrose 50%-Water Inj 50 Ml Syringe) 50 ml IVP X1 ONE Stop: 05/31/25 04:03 Last Admin: 05/31/25 04:07 Dose: 50 ml Dextrose (Dextrose 50%-Water Inj 50 Ml Syringe) 100 ml IVP X1 ONE Stop: 05/31/25 04:28 Last Admin: 05/31/25 04:30 Dose: 100 ml Fentanyl Citrate (Fentanyl Cit Inj 50 Mcg/Ml Amp 2ml) 50 mcg IVP X1 ONE Stop: 05/31/25 03:35 Last Admin: 05/31/25 03:53 Dose: 50 mcg Fentanyl Citrate (Fentanyl Cit Inj 50 Mcg/Ml Amp 2ml) 25 mcg IVP X1 ONE Stop: 05/31/25 04:45 Last Admin: 05/31/25 04:50 Dose: 25 mcg Heparin Sodium (Porcine) (Heparin Sod Inj 5000 Unit/Ml Vial) 5,000 unit SC Q8HR [facility] Stop: 06/14/25 08:59 Levofloxacin/Dextrose (Levaquin Ivpb) 500 mg in 100 mls @ 100 mls/hr IV X1 ONE Stop: 05/31/25 03:29 Last Infusion: 05/31/25 03:58 Dose: Infused Sodium Chloride (Ns) 250 mls @ 999 mls/hr IV .Q16M ONE Stop: 05/31/25 03:57 Last Infusion: 05/31/25 04:09 Dose: Infused Dextrose (D10w) 500 mls @ 100 mls/hr IV .Q5H RIANNA Stop: 05/31/25 09:01 Last Infusion: 05/31/25 05:03 Dose: 0 mls/hr Prochlorperazine Edisylate (Prochlorperazine Inj 5 Mg/Ml Vial 2 Ml) 5 mg IV X1 ONE; Protocol Stop: 05/31/25 03:35 Last Admin: 05/31/25 03:45 Dose: 5 mg Sodium Bicarbonate (Sodium Bicarb Inj 8.4% Syr 50 Ml Syringe) 100 ml IV X1 ONE Stop: 05/31/25 04:33 Last Admin: 05/31/25 04:42 Dose: 100 ml Assessment & Plan Plan 64-year-old female with past medical history of CVA with residual left-sided weakness, A-fib, heart failure with EF of 15 to 20%, ESRD on Friday//Friday was admitted for shock requiring pressor support. INCLUSION SPECIALIST #History of CVA CVS #Shock most likely septic in the setting of UTI, -Continue pressor support, wean as tolerates -Close monitor hemodynamics, [place]et[place] can be placed to get hemodynamic numbers - Last echo was done a month ago which revealed EF of 15 to 20% - Continue pressor support, wean off as tolerates - Treat underlying condition such as sepsis with meropenem as patient has a history ESBL #A-fib Home medication is amiodarone and Eliquis - Resume amiodarone - Renally dose Eliquis - Continue environmental monitoring specialist - Treat underlying hyperkalemia in the setting of ESRD, patient will get hemodialysis tomorrow #Acute on chronic HFrEF 15 to 20% on 04/2025 #Dilated cardiomyopathy Patient recently discharged from the hospital with plan of optimized GDMT, and was placed on midodrine Labs revealed elevated BNP, troponin within normal limit - Strict CHIQUIS's - Daily weight - Fluid status management with hemodialysis - Currently holding metoprolol in the setting of shock Respiratory Patient was saturating well in room air upon my evaluation Will obtain VBG GI Nausea/vomiting resolved Continue as needed management Endo #History of DM type II #Refractory hypoglycemia Last time patient was admitted in ICU and had metformin associated lactic acidosis, the plan was at that time to discontinue metformin However looking at her active medication list from SNF, apparently patient is still on metformin which can explain her lactic acidosis In ED patient was given multiple pushes of D50, despite blood sugar remained low, Patient was placed on the D10 W -Continue close monitor, - Every hour glucose check -Adjust D50 rate per blood glucose results Renal #ESRD on hemodialysis #High anion gap metabolic acidosis secondary due to lactic acidosis #Lactic acidosis most likely secondary due to metformin which was listed on active medication list on paper chart #Hyperkalemia in the setting of ESRD - Patient hemodialysis due tomorrow - Nephrology is on board recommendations appreciated - Patient also did receive bicarb pushes x 2 ID #Sepsis secondary to UTI #ESBL UTI UA is consistent for pyuria/UTI Previous cultures was positive for ESBL - Started on meropenem - Follow-up with the cultures, de-escalate if needed Hematology #Leukocytosis in the setting of sepsis #Anemia of chronic disease - Continue monitor with daily CBC -Treat underlying condition Disposition ICU for pressor support DVT: Plans to resume Eliquis, renally dose GI prophylaxis none Diet n.p.o. CODE STATUS full Attending Provider Attestation/Addendum After examination of the patient and review of the clinical data I feel that this patient needs admission to the hospital for further treatment/evaluation. TOTAL CC TIME: 60 MIN TOTAL TIME: 60 Minutes of direct medical management and planning of care. I Yenny Kapadia MD, attest that I was physically present for horn portions of evaluation, and examined patient, labs and imagings and plan of care were discussed with IM residents team, and I agree with the findings and plans documented above.
[2025-05-31 05:16] LABS: Lactate (Lactic Acid) 20.0 mMol/L (0.4-2.0)
[2025-05-31 05:27] LABS: Reflex Lactate? Y
[2025-05-31 05:30] LABS: Anion Gap 36 (7-16); BUN/Creatinine Ratio 10 Ratio (12-20); Blood Urea Nitrogen 41 mg/dL (9-23); Calcium 8.9 mg/dL (8.3-10.6); Chloride 98 mMol/L (98-107); Creatinine (Component) 4.0 mg/dL (0.6-1.3); Estimated Creatinine Clearance 16.6 mL/min (>60); Magnesium 2.0 mg/dL (1.6-2.6); Osmolality,Calculated 313 (275-295); Potassium 5.6 mMol/L (3.4-5.1); Sodium 144 mMol/L (136-145); eGFR 12 See Note
[2025-05-31 05:35] LABS: Carbon Dioxide < 10.0 mMol/L (20.0-31.0); Glucose 402 mg/dL (74-106)
[2025-05-31] MEDS: MEROPENEM INJ 1,000 MG in SODIUM CHLORIDE 0.9% (Popper) 50 ML 100 MG IV (05:38)
--- NOTE | 2025-05-31 06:04 | PC.NURSE ---
Spoke with Dr. Pollock notified him that pts bs is [phone]. D10 was paused for now per Dr. POLLOCK D10 is not to be discontinued just incase patient becomes hypoglycemic again.
[2025-05-31 08:05] LABS: Reflex Lactate? Y
[2025-05-31 08:19] LABS: Lactate (Lactic Acid) 22.0 mMol/L (0.4-2.0)
--- NOTE | 2025-05-31 08:54 | ESPR_ITS ---
Documentation for date of: 05/31/25 Subjective Subjective Interval history: This is a 64yo F who was DCd from [facility] on 05/25. She was originally admitted on 05/17 for severe acidosis and shock. She was found to have metformin toxicity as well as sepsis. Her acidosis resolved with HD. [place] [facility] [place] started her on metformin 1000mg q12 once more. She was there for 5 days and sent to ER for n/v and abd pain. She was found to be hypotensive, acidotic, hypoglycemic and altered. Her LA was 20 and she received several amps of HCO3, D50 and started on levophed. She was dx with metformin toxicity, shock likely distributive with ? of underlying sepsis. This AM she is awake, lethargic but responsive, c/o general malaise. There is minimal UOP, she is ESRD, and she is afebrile. Critical Care Note Critical care time (min.): 48 Exam Vital Signs Temp Pulse Resp BP Pulse Ox O2 Del Method O2 Flow Rate 96.8 F 113 H 20 92/60 100 Oxy Mask 8 05/31/25 08:01 05/31/25 08:45 05/31/25 08:01 05/31/25 08:45 05/31/25 08:01 05/31/25 07:20 05/31/25 08:01 Narrative Exam Gen- chronically ill appearing, unwell, overweight, awake but lethargic, L subclavian and R permacath in place HEENT- NC/AT, mucosa dry, poor dentition, sclera anicteric, Chest- diminished lung sounds, crackles at post base, HRIR, no bruit, no increase in WOB Abd- obese, s/nt/bs+ Ext- edema 3+ pitting b/l LE, L sided weakness with spasticity on L LE, pulses palp Drips levo Physical Exam Completion Physical Exam Complete?: Yes Objective - [employer] Labs 06/01/25 05:05 06/01/25 05:05 Labs: Laboratory Results - last 24 hr 05/31/25 05/31/25 05/31/25 01:26 02:23 02:50 WBC 21.4 H D 23.7 H RBC 3.16 L 3.20 L Hgb 10.5 L 10.6 L Hct 36.6 37.2 MCV 116 H 116 H MCH 33.2 33.1 MCHC 28.7 L 28.5 L RDW Std Deviation 97.8 H 98.4 H Plt Count 319 D 358 D Neut % (Auto) 81 H 81 H Lymph % (Auto) 9 L 7 L [place] % (Auto) 5 5 Eos % (Auto) 0 0 Baso % (Auto) 1 1 Neut # (Auto) 17.3 H 19.2 H Lymph # (Auto) 1.8 1.7 [place] # (Auto) 1.0 H 1.2 H Eos # (Auto) 0.0 0.0 Baso # (Auto) 0.1 0.1 Immature Gran # (Auto) 1.19 H 1.44 H Absolute Nucleated RBC 0.21 H 0.22 H Immature Gran % 6 H 6 H Nucleated RBC % 1 H 1 H PT 14.0 H INR 1.3 APTT 36.5 H D VBG pH VBG pCO2 VBG pO2 VBG O2 Sat (Rohit) VBG Base Excess Sodium 141 Potassium 5.9 H Chloride 99 Carbon Dioxide < 10.0 L* Anion Gap 32 H BUN 39 H Creatinine 3.8 H D Estim Creat Clear Calc 17.5 L eGFR 13 L* BUN/Creatinine Ratio 10 L Glucose 11 L* Calculated Osmolality 285 Lactic Acid 20.0 H* Calcium 10.0 Corrected Calcium 10.2 H Phosphorus 6.5 H Magnesium 2.2 Total Bilirubin 0.5 AST 14 ALT 11 Alkaline Phosphatase 93 Lactate Dehydrogenase 257 H Troponin I 0.020 B-Natriuretic Peptide 2962 H* 2757 H* Total Protein 6.4 Albumin 3.8 Globulin 2.6 Albumin/Globulin Ratio 1.5 Lipase 70 H Procalcitonin 0.41 Ur Collection Type Clean Catch Urine Color Lt-Yellow Urine Clarity Turbid A Urine pH 5.5 Ur Specific [place] 1.007 Urine Protein 1+ A Urine Glucose (UA) Negative Urine Ketones Trace Urine Blood 3+ A Urine Nitrite Negative Urine Bilirubin Negative Urine Urobilinogen (Auto) Negative Ur Leukocyte Esterase Positive Urine RBC 252 H Urine WBC 8340 H Ur Squamous Epith Cells 3 Urine Bacteria 2+ A Ur Culture Indicated? Yes Urine Opiates Screen Positive A Urine Fentanyl Screen Negative Ur Barbiturates Screen Negative U Amphetamin/Meth Scrn Negative U Benzodiazepines Scrn Negative U Cocaine Metab Screen Negative U Marijuana (THC) Screen Negative 05/31/25 05/31/25 05:04 07:49 WBC 20.6 H RBC 2.78 L Hgb 9.1 L Hct 32.1 L MCV 116 H MCH 32.7 MCHC 28.3 L RDW Std Deviation 97.5 H Plt Count 289 D Neut % (Auto) 82 H Lymph % (Auto) 6 L [place] % (Auto) 5 Eos % (Auto) 0 Baso % (Auto) 0 Neut # (Auto) 16.9 H Lymph # (Auto) 1.2 [place] # (Auto) 1.1 H Eos # (Auto) 0.0 Baso # (Auto) 0.1 Immature Gran # (Auto) 1.40 H Absolute Nucleated RBC 0.18 H Immature Gran % 7 H Nucleated RBC % 1 H PT INR APTT VBG pH 7.12 L VBG pCO2 20 L VBG pO2 63 H VBG O2 Sat (Rohit) 87 L VBG Base Excess -21 L Sodium 144 Potassium 5.6 H Chloride 98 Carbon Dioxide < 10.0 L* Anion Gap 36 H BUN 41 H Creatinine 4.0 H Estim Creat Clear Calc 16.6 L eGFR 12 L* BUN/Creatinine Ratio 10 L Glucose 402 H* D Calculated Osmolality 313 H Lactic Acid 20.0 H* 22.0 H* Calcium 8.9 Corrected Calcium Phosphorus Magnesium 2.0 Total Bilirubin AST ALT Alkaline Phosphatase Lactate Dehydrogenase Troponin I B-Natriuretic Peptide Total Protein Albumin Globulin Albumin/Globulin Ratio Lipase Procalcitonin Ur Collection Type Urine Color Urine Clarity Urine pH Ur Specific [place] Urine Protein Urine Glucose (UA) Urine Ketones Urine Blood Urine Nitrite Urine Bilirubin Urine Urobilinogen (Auto) Ur Leukocyte Esterase Urine RBC Urine WBC Ur Squamous Epith Cells Urine Bacteria Ur Culture Indicated? Urine Opiates Screen Urine Fentanyl Screen Ur Barbiturates Screen U Amphetamin/Meth Scrn U Benzodiazepines Scrn U Cocaine Metab Screen U Marijuana (THC) Screen Assessment & Plan Additional Assessment Additional Assessment: In summary this is a 64yo F admitted to the ICU for shock thought to be distributive in nature and secondary to the acidosis a/p [employer] Metabolic encephalopathy-secondary to underlying acidosis and shock, anticipate improvement History of old stroke with residual left-sided weakness CV Shock-will place a cheetah for additional hemodynamic monitoring however at this point in time felt to be distributive in nature and secondary to severe acidosis plus minus any underlying sepsis. She does not have a white count and her UA is positive however it is noted that her UA has had abundant white cells for quite some time and is nitrite negative. Her last urinary culture from the was very similar however no bacteria grew. This may be a sterile pyuria. She does have a history of heart failure however does not appear to be massively overloaded. She will be undergoing hemodialysis today for both her vascular congestion as well as for the metformin toxicity. Continue Levophed, will start midodrine. Patient was difficult to wean last time. Follow-up on urinary cultures and blood cultures, if negative after 48 hours will discontinue Heart failure with reduced EF-last echo showed an EF of 20 to 25% on 24 May of this year. There was severe global hypokinesia and the LV was moderately dilated. - not felt to be in active decompensated heart failure at this time A-fib-she is on amiodarone as home medication, given her metabolic encephalopathy will await dialysis and if she is able to pass a bedside swallow we will start her on p.o. Amio however if not we will transition to IV. Hold Eliquis Resp Acute hypoxic respiratory failure-patient is currently requiring a couple of liters via nasal cannula, chest x-ray shows vascular congestion with fluid in the fissure Renal End-stage renal disease on hemodialysis-followed by nephrology Hypokalemia-mild anticipate improvement with dialysis Anion gap metabolic acidosis-secondary to elevated lactate and likely due to metformin toxicity. She is undergoing dialysis anticipate improvement. Will repeat labs after dialysis Pyuria-at this point in time suspect sterile pyuria. However will await cultures and continue on antibiotics for now GI Nutrition- hold PO for now given encephalopathy, bedside swallow once HD finished Endo DM- PERMANENTLY STOP METFORMIN - was hypoglycemic on arrival and received D50 and D10 gtt - SSI once glucose >180 on several reads Hypothyroid- cont levothyroxine Heme Anemia, macrocytic-appears near baseline DVT prophylaxis-heparin Leukocytosis-likely reactive in nature however evaluating for any underlying infection at this time ID Meets SIRS criteria however unclear source, on abx with cx pending at this time Case discussed with ICU team Labs, imaging and records reviewed Approximately 48ccmin required for evaluation, exam, review, intervention, discussion and formulation of plan of care for this critically ill patient in shock on pressors Provider Notation Provider Notation: Although this document has been carefully reviewed, there may still be some phonetic and other typographical errors. These errors are purely grammatical due to imperfections in the software program and should not be construed in any way to compromise the substance of the patient's medical care during this visit. Thank you for the opportunity and privilege in assisting you with this patient's care and management.
[2025-05-31] MEDS: ALBUMIN HUMAN-KJDA 25% IVPB 25 GM/100 ML BTL IV (10:40)
[2025-05-31 10:59] LABS: Reflex Lactate? Y
[2025-05-31] MEDS: HEPARIN SOD INJ 1000 UNIT/ML VIAL 10 ML 3300 UNIT INDWELLCAT (11:09)
[2025-05-31 11:46] LABS: Lactic Acid, 3 HR 15.0 mMol/L (0.4-2.0)
[2025-05-31 11:53] LABS: Band Neutrophils (Manual) 2 % (0-6); Lymphocytes (Manual) 6 % (20-44); Monocytes (Manual) 1 % (2-9); Neutrophils (Manual) 91 % (50-70)
--- NOTE | 2025-05-31 11:56 | PC.SS ---
facilities planner contacted [facility] and provided verbal report to box office manager, Caro. Caro informed facilities planner that follow up with [facility] staff would be conducted within 1-2 business days. Written report to be faxed to [facility]. facilities planner contacted [facility] staff, [place]; To provide verbal report regarding patient. Written report to be faxed to [facility] office. Basis of report due to SNF not discontinuing Metformin medication at time of discharge on 05/25/25. SNF inability to discontinue medication resulted in the patient readmission. Patient in position in elevated potassium and creatinine. In addition patient scheduled for emergent dialysis today. Admitted diagnosis is Septic Shock.
[2025-05-31] MEDS: HEPARIN SOD INJ 5000 UNIT/ML VIAL SC ×2 (12:33→21:57)
--- NOTE | 2025-05-31 12:38 | PC.SS ---
CABLE PULLER received return call from [facility] staff, Unique Leonard. CABLE PULLER provided overview of report. Written report submitted electronically to [email or web address]
[2025-05-31] MEDS: MEROPENEM INJ 500 MG in SODIUM CHLORIDE 0.9% (Popper) 50 ML 100 MG IV (13:49)
--- NOTE | 2025-05-31 14:40 | ESPR_ITS ---
<Statement entered by Marc Samayoa MD - 05/31/25 15:36> Senior Resident Attestation: I supervised/discussed management plan with architecture intern physician Dr. Beasley, and was involved in the care of this patient. I personally saw and examined the patient and discussed the assessment and plan with the entire medicine team, including my attending. I agree with the assessment and plan as documented. Patient was seen and examined at the bedside. She remains on low-dose vasopressors. She denies any complaints. She passed swallow evaluation and her home medications and diet were resumed. Per nephrology recommendation patient will undergo conventional hemodialysis today due to severe lactic acidosis and metformin use. Metformin use was confirmed with SNF. Will continue trending lactic acid and monitor patient. Patient's care was discussed with attending physician, Dr. Ervin. Marc Samayoa MD PGY-3. Documentation for date of: 05/31/25 Subjective Subjective Interval history: A 64-year-old female with a medical history significant for 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 Landry, and a history of staghorn calculi, was transferred to the emergency department from a nursing facility with chief complaints of abdominal pain, nausea, and vomiting. The patient had been recently discharged from [facility] on 05/25/2025, where she had been admitted for sepsis secondary to a urinary tract infection. Upon evaluation, the patient was alert and oriented to person, place, and time (AO x 3), and able to appropriately respond to questions. She reported feeling nauseous and experiencing mild abdominal pain for the past 1.5 days, but denied any dysuria or burning sensation during urination. On presentation, the patient was hemodynamically stable. Laboratory findings included anemia (hemoglobin of 10.6), leukocytosis (WBC of 23.7), hyperkalemia (potassium of 5.9), metabolic acidosis with bicarbonate of <10, anion gap of 32, BUN of 39, creatinine of 3.8, eGFR of 13, glucose of 11, lactic acidosis (lactate of 10), phosphorus of 6.5, BMP of 2757, and LDH of 257. EKG showed A-fib. In the ED, the patient received multiple boluses of D50 to address hypoglycemia, but her blood glucose levels did not improve. As a result, she was started on a D10 drip. During the interview, her blood pressure dropped with MAP below 65, necessitating the initiation of Levophed drip. A central line was placed in the ED. Additionally, bicarbonate pushes were given to address the underlying acidosis, likely secondary to ESRD. A review of the patient?s chart revealed that she had been receiving metformin at the nursing facility, which may have contributed to the severe lactic acidosis. Given the complexity of her condition, the patient was admitted to the ICU for further management. Interval History 05/31/25: Patient was seen and examined at bedside; she remains on low-dose vasopressors and expresses that she is very thirsty. She passed swallow evaluation so her diet was resumed (consider restarting home medications as well). Per nephrology recommendation, patient will undergo conventional hemodialysis both to dialyze the offending agent (metformin) as well as the lactic acid which is also dialyzable. Importantly, she had originally been admitted to the [facility] ICU on 05/17 for severe lactic acidosis and shock where it was eventually discovered that patient had been receiving metformin at her SNF despite her ESRD status. Despite making a direct call to patient's nurse at [facility] during her last admission as well as documenting the importance of discontinuing patient's metformin, paper charts and SNF confirmed that patient, with her known ESRD status, had continued to receive metformin after she had been discharged last time for the same metformin-induced lactic acidosis. 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 Exam Vital Signs Temp Pulse Resp BP Pulse Ox O2 Del Method O2 Flow Rate 97.2 F 118 H 17 112/54 L 100 Oxy Mask 8 05/31/25 11:24 05/31/25 13:16 05/31/25 13:16 05/31/25 13:16 05/31/25 13:16 05/31/25 07:20 05/31/25 11:24 Narrative Exam GENERAL: Ill-appearing, frail, overweight, lethargic but awake elderly female oriented x3 who appears older than stated age HEENT: NC/AT, mucous membranes dry, poor dentition, bilateral sclera anicteric CARDIOVASCULAR: irregular rhythm, regular rate, no murmurs able to be appreciated, HD cath noted, lIJ in place PULMONARY: Difficult to auscultate but lung sounds seemingly clear bilaterally with crackles noted on posterior lung amaro at the bases, no bruits or wheezing noted and no increase in work of breathing ABDOMINAL: soft, non-tender, non-distended, obese, no rebound/guarding, bowel sounds present EXTREMITIES: 3+ pitting edema of LE, L heel wound, contracture of L hand, pulses palpable Objective Labs 05/31/25 05:04 05/31/25 05:04 Labs: Laboratory Results - last 24 hr 05/31/25 05/31/25 05/31/25 01:26 02:23 02:50 WBC 21.4 H D 23.7 H RBC 3.16 L 3.20 L Hgb 10.5 L 10.6 L Hct 36.6 37.2 MCV 116 H 116 H MCH 33.2 33.1 MCHC 28.7 L 28.5 L RDW Std Deviation 97.8 H 98.4 H Plt Count 319 D 358 D Neut % (Auto) 81 H 81 H Lymph % (Auto) 9 L 7 L [place] % (Auto) 5 5 Eos % (Auto) 0 0 Baso % (Auto) 1 1 Neut # (Auto) 17.3 H 19.2 H Lymph # (Auto) 1.8 1.7 [place] # (Auto) 1.0 H 1.2 H Eos # (Auto) 0.0 0.0 Baso # (Auto) 0.1 0.1 Immature Gran # (Auto) 1.19 H 1.44 H Absolute Nucleated RBC 0.21 H 0.22 H Immature Gran % 6 H 6 H Neutrophils % (Manual) Monocytes % (Manual) Nucleated RBC % 1 H 1 H Band Neutrophils Lymphocytes (Manual) PT 14.0 H INR 1.3 APTT 36.5 H D VBG pH VBG pCO2 VBG pO2 VBG O2 Sat (Rohit) VBG Base Excess Sodium 141 Potassium 5.9 H Chloride 99 Carbon Dioxide < 10.0 L* Anion Gap 32 H BUN 39 H Creatinine 3.8 H D Estim Creat Clear Calc 17.5 L eGFR 13 L* BUN/Creatinine Ratio 10 L Glucose 11 L* Calculated Osmolality 285 Lactic Acid 20.0 H* Calcium 10.0 Corrected Calcium 10.2 H Phosphorus 6.5 H Magnesium 2.2 Total Bilirubin 0.5 AST 14 ALT 11 Alkaline Phosphatase 93 Lactate Dehydrogenase 257 H Troponin I 0.020 B-Natriuretic Peptide 2962 H* 2757 H* Total Protein 6.4 Albumin 3.8 Globulin 2.6 Albumin/Globulin Ratio 1.5 Lipase 70 H Procalcitonin 0.41 Ur Collection Type Clean Catch Urine Color Lt-Yellow Urine Clarity Turbid A Urine pH 5.5 Ur Specific Maybell 1.007 Urine Protein 1+ A Urine Glucose (UA) Negative Urine Ketones Trace Urine Blood 3+ A Urine Nitrite Negative Urine Bilirubin Negative Urine Urobilinogen (Auto) Negative Ur Leukocyte Esterase Positive Urine RBC 252 H Urine WBC 8340 H Ur Squamous Epith Cells 3 Urine Bacteria 2+ A Ur Culture Indicated? Yes Urine Opiates Screen Positive A Urine Fentanyl Screen Negative Ur Barbiturates Screen Negative U Amphetamin/Meth Scrn Negative U Benzodiazepines Scrn Negative U Cocaine Metab Screen Negative U Marijuana (THC) Screen Negative 05/31/25 05/31/25 05/31/25 05:04 07:49 11:27 WBC 20.6 H RBC 2.78 L Hgb 9.1 L Hct 32.1 L MCV 116 H MCH 32.7 MCHC 28.3 L RDW Std Deviation 97.5 H Plt Count 289 D Neut % (Auto) 82 H Lymph % (Auto) 6 L [place] % (Auto) 5 Eos % (Auto) 0 Baso % (Auto) 0 Neut # (Auto) 16.9 H Lymph # (Auto) 1.2 [place] # (Auto) 1.1 H Eos # (Auto) 0.0 Baso # (Auto) 0.1 Immature Gran # (Auto) 1.40 H Absolute Nucleated RBC 0.18 H Immature Gran % 7 H Neutrophils % (Manual) 91 H Monocytes % (Manual) 1 L Nucleated RBC % 1 H Band Neutrophils 2 Lymphocytes (Manual) 6 L PT INR APTT VBG pH 7.12 L VBG pCO2 20 L VBG pO2 63 H VBG O2 Sat (Rohit) 87 L VBG Base Excess -21 L Sodium 144 Potassium 5.6 H Chloride 98 Carbon Dioxide < 10.0 L* Anion Gap 36 H BUN 41 H Creatinine 4.0 H Estim Creat Clear Calc 16.6 L eGFR 12 L* BUN/Creatinine Ratio 10 L Glucose 402 H* D Calculated Osmolality 313 H Lactic Acid 20.0 H* 22.0 H* 15.0 H* Calcium 8.9 Corrected Calcium Phosphorus Magnesium 2.0 Total Bilirubin AST ALT Alkaline Phosphatase Lactate Dehydrogenase Troponin I B-Natriuretic Peptide Total Protein Albumin Globulin Albumin/Globulin Ratio Lipase Procalcitonin Ur Collection Type Urine Color Urine Clarity Urine pH Ur Specific [place]bell Urine Protein Urine Glucose (UA) Urine Ketones Urine Blood Urine Nitrite Urine Bilirubin Urine Urobilinogen (Auto) Ur Leukocyte Esterase Urine RBC Urine WBC Ur Squamous Epith Cells Urine Bacteria Ur Culture Indicated? Urine Opiates Screen Urine Fentanyl Screen Ur Barbiturates Screen U Amphetamin/Meth Scrn U Benzodiazepines Scrn U Cocaine Metab Screen U Marijuana (THC) Screen ABG Interpretation ABG results: 05/31/25 05:04 VBG pH 7.12 L VBG pCO2 20 L VBG pO2 63 H VBG Base Excess -21 L Quality Measures Quality Measures sepsis Current suspected stage: sepsis Possible source: genitourinary Blood cultures ordered: yes Antibiotic ordered: Yes Assessment & Plan Assessment Current Active Medications: Generic Name Dose Route Start Last Admin Trade Name Freq PRN Reason Stop Dose Admin Acetaminophen 650 mg 05/31/25 04:25 Acetaminophen 325 Mg Tablet PO 06/30/25 04:24 Q6H PRN Fever >101.5 Hydrocodone Bitart/Acetaminophen 1 tab 05/31/25 04:30 Hydrocodone/Apap 5/325 Tablet PO 06/05/25 04:29 Q8HR PRN PAIN SCALE 4-10(Mod-Sev Dextrose 25 ml 05/31/25 04:28 Dextrose 50%-Water Inj 50 Ml Syringe IV 06/30/25 04:27 Q15MIN PRN BG 50-70 responsive npo pt Dextrose 50 ml 05/31/25 04:28 Dextrose 50%-Water Inj 50 Ml Syringe IV 06/30/25 04:27 Q15MIN PRN BG <50 OR BG <70 & pt unresponsive Glucagon 1 mg 05/31/25 04:28 Glucagon Inj 1 Mg Vial IM Q15MIN PRN BG <70, and no IV access Heparin Sodium (Porcine) 5,000 unit 05/31/25 21:00 Heparin Sod Inj 5000 Unit/Ml Vial SC 06/14/25 20:59 Q8HR RIANNA Meropenem 500 mg/ Sodium 50 mls @ 100 mls/hr 06/01/25 09:00 Chloride IV 06/07/25 05:59 QDAY RIANNA Protocol Norepinephrine/Dextrose 8 mg in 250 mls @ 7.654 mls/hr 05/31/25 04:40 05/31/25 13:00 Levophed In D5w 8mg/250ml IV 06/30/25 04:39 0.11 mcg/kg/min .Q24H PRN 16.84 mls/hr PER PROTOCOL Titration Protocol 0.05 MCG/KG/MIN Dextrose 500 mls @ 50 mls/hr 05/31/25 05:00 05/31/25 05:44 D10w IV 0 mls/hr On Hold: 05/31/25 06:44 .Q10H RIANNA Infusion Albumin Human 25 gm in 100 mls @ 100 mls/min 05/31/25 06:45 05/31/25 10:41 Albuminex 25% Ivpb IV Infused PRN PRN Infusion DIALYSIS Ondansetron HCl 4 mg 05/31/25 04:25 Ondansetron Inj 2 Mg/Ml Inj 2 Ml IVP 06/30/25 04:24 Q6H PRN NAUSEA OR VOMITING Protocol Plan A 64-year-old female with a medical history significant for 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 Landry, and a history of staghorn calculi, was transferred to the emergency department from a nursing facility with chief complaints of abdominal pain, nausea, and vomiting. The patient had been recently discharged from [facility] on 05/25/2025, where she had been admitted for sepsis secondary to a urinary tract infection. Patient was seen and examined at bedside; she remains on low-dose vasopressors and expresses that she is very thirsty. She passed swallow evaluation so her diet was resumed (consider restarting home medications as well). Per nephrology recommendation, patient will undergo conventional hemodialysis both to dialyze the offending agent (metformin) as well as the lactic acid which is also dialyzable. Importantly, she had originally been admitted to the [facility] ICU on 05/17 for severe lactic acidosis and shock where it was eventually discovered that patient had been receiving metformin at her SNF despite her ESRD status. Despite making a direct call to patient's nurse at [facility] during her last admission as well as documenting the importance of discontinuing patient's metformin, paper charts and SNF confirmed that patient, with her known ESRD status, had continued to receive metformin after she had been discharged last time for the same metformin-induced lactic acidosis. 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 #Metabolic encephalopathy 2/2 underlying lactic acidosis and shock Patient is moreso lethargic and visually ill-appearing but seems oriented to person, place, and time and is expected to improve once metabolic derangements are corrected by HD #History of CVA w/ residual left-sided weakness Stable Rx: -Consider restarting aspirin and statin once clinically stabilized CVS #Distributive shock 2/2 severe metformin-induced lactic acidosis w/ possible septic component Dx: -Admission LA 22.0 w/ confirmation that patient has been continuing to receive metformin at her SNF -Pre-PLR and Post-PLR NICOM suggestive of distributive shock etiology -UA showed 3+ bacteria but is nitrite negative and without accompanying leukocytosis or fever. Also, her UA from last admission on 05/17 showed similar findings but UCx did not end up growing anything, suggesting that these UA findings may instead be from sterile pyuria and chronic colonization in an ESRD patient who does not have free-flowing urine. -Last echo from a month ago revealed EF of 15 to 20% but currently does not appear to be hypervolemic at this time (decompensated CHF exacerbation less likely) Rx: -HD today for both vascular congestion and metformin toxicity -Continue pressor support, wean as tolerated -Will start midodrine to reduce pressor requirements -Treat underlying condition such as sepsis with IV meropenem as patient has a history of ESBL -Follow up on urine and blood cultures, if negative after 48 hours, will discontinue antibiotics #A-fib Home medication is amiodarone and Eliquis - Resume home PO amiodarone (patient had passed bedside swallow) - Hold Eliquis (difficult to reverse which is dangerous in critically ill patients), started SubQ heparin 5000 U q8HR instead - Continue equipment monitor phototypesetting - Treat underlying hyperkalemia in the setting of ESRD #HFrEF 15 to 20% on 04/2025 #Dilated cardiomyopathy Patient recently discharged from the hospital with plan of optimized GDMT, and was placed on midodrine Labs revealed elevated BNP, troponin within normal limit - Strict CHIQUIS's - Daily weight - Fluid status management with hemodialysis - Currently holding metoprolol in the setting of shock Respiratory #Acute hypoxic respiratory failure On examination, patient is currently requiring a couple of liters via nasal cannula and her CXR did show vascular congestion with fluid in the fissure on the right side GI Patient has passed bedside swallow and has been put on Diet: Carbohydrate Consistent Low (w/ Renal Modification) Endo #History of DM type II #Refractory hypoglycemia Last time patient was admitted in ICU and had metformin associated lactic acidosis, the plan was at that time to discontinue metformin However looking at her active medication list from [facility], apparently patient is still on metformin which can explain her lactic acidosis In ED patient was given multiple pushes of D50, despite blood sugar remained low, Patient was placed on the D10 W as a result Rx: -PERMANENTLY STOP METFORMIN, MEDICATION IS ABSOLUTELY CONTRAINDICATED IN THIS PATIENT WITH ESRD STATUS ([facility] nurse has been contacted directly and has stated that they have discontinued patient's metformin) -Start insulin sliding scale if glucose exceeds 180 on multiple reads #Hypothyroidism Continue home levothyroxine Renal #ESRD on hemodialysis #High anion gap metabolic acidosis 2/2 severe metformin-induced lactic acidosis #Hyperkalemia in the setting of ESRD Rx: -HD as per Nephrology recommendations (patient is anticipated to see reliable improvement) -Monitor CMP and other labs after dialysis to evaluate recovery progress ID #Sterile pyuria #??Sepsis DDx: UTI Dx: -UA showed 3+ bacteria but is nitrite negative and without accompanying leukocytosis or fever. Also, her UA from last admission on 05/17 showed similar findings but UCx did not end up growing anything, suggesting that these UA findings may instead be from sterile pyuria and chronic colonization in an ESRD patient who does not have free-flowing urine. -SIRS criteria technically met -History of urine culture growing ESBL Rx: -IV meropenem 500 mg qD -Follow up on urine cultures, stop antibiotics if no growth after 48 hours Hematology #Leukocytosis Likely reactive but currently evaluating for underlying infection #Macrocytic anemia Appears near baseline, stable, will continue to monitor Disposition: Admitted to ICU due to requiring pressors in the setting of metformin-induced lactic acidosis DVT prophylaxis: SubQ Heparin q8HR GI prophylaxis: None Diet: Carbohydrate Consistent Low (Renal Modification) Turner: Present Lines: Peripheral IV, Central IV Antibiotics: IV meropenem CODE STATUS: FULL Patient plan of care was discussed with the attending tax investigator, Dr. Arcadio Beasley, DO Internal Medicine, PGY-1
[2025-05-31 15:28] LABS: Lactate (Lactic Acid) 18.0 mMol/L (0.4-2.0)
[2025-05-31] MEDS: ONDANSETRON INJ 2 MG/ML INJ 2 ML 4 MG IVP (15:34)
--- NOTE | 2025-05-31 16:16 | PC.SS ---
SS follow up note; SS was contacted by Unique Leonard from the [facility] informing SS they had received report and will follow up with the case.
[2025-05-31 17:35] LABS: Lactate (Lactic Acid) 20.0 mMol/L (0.4-2.0)
[2025-05-31 18:14] LABS: Reflex Lactate? Y
[2025-05-31] MEDS: Norepinephrine/D5W 8mg/250ml 8 MG/250 ML BAG 1.531 MG IV (18:15)
[2025-05-31] MEDS: DEXTROSE 50%-WATER INJ 50 ML SYRINGE IV (19:52)
[2025-05-31] MEDS: HYDROcodone/APAP 5/325 TABLET 1 TAB PO (20:13)
[2025-05-31 20:32] LABS: Reflex Lactate? Y
[2025-05-31 20:45] LABS: Lactate (Lactic Acid) 21.0 mMol/L (0.4-2.0)
[2025-05-31] MEDS: AMIODARONE HCL 200 MG TABLET PO (21:57)
[2025-05-31] MEDS: DIVALPROEX SOD 125 MG SPRINKLE 250 MG PO (22:01)
[2025-05-31 23:41] LABS: Reflex Lactate? Y
[2025-05-31 23:46] LABS: Lactate (Lactic Acid) 20.0 mMol/L (0.4-2.0)
[2025-06-01] VITALS (115 sets, daily range): BP systolic 65–138; BP diastolic 37–81; PULSE 88–141; RESP 6–41; TEMP 36–36.6; O2SAT 95–100
[2025-06-01] MEDS: ONDANSETRON INJ 2 MG/ML INJ 2 ML 4 MG IVP ×2 (02:01→09:01)
[2025-06-01 02:43] LABS: Reflex Lactate? Y
[2025-06-01 03:48] LABS: Lactic Acid, 3 HR 20.0 mMol/L (0.4-2.0)
[2025-06-01 05:59] LABS: Basophils # (Auto) 0.0 Thou/mm3 (0.0-0.2); Basophils % (Auto) 0 % (0-2.5); Eosinophils # (Auto) 0.0 Thou/mm3 (0.0-0.5); Eosinophils % (Auto) 0 % (0-10); Hematocrit 30.3 % (36.0-46.0); Hemoglobin 9.0 g/dL (12.0-16.0); Immature Granulocytes Auto 0.23 Thou/mm3 (0.00-0.00); Lymphocytes # (Auto) 2.4 Thou/mm3 (1.0-4.8); Lymphocytes % (Auto) 12 % (10-50); Mean Corpuscular HGB Conc 29.7 g/dl (31.0-37.0); Mean Corpuscular Hemoglobin 33.6 pg (25.0-35.0); Mean Corpuscular Volume 113 fL (80-100); Monocytes # (Auto) 1.4 Thou/mm3 (0.0-0.8); Monocytes % (Auto) 7 % (0-12); Neutrophils # (Auto) 15.9 Thou/mm3 (1.8-7.7); Neutrophils % (Auto) 80 % (37-80); Nucleated Red Blood Cell # 0.11 Thou/mm3 (0.00-0.00); Nucleated Red Blood Cell % 1 /100 WBC (0); Platelet Count 257 Thou/mm3 (140-440); RDW Standard Deviation 98.1 fL (36.4-46.3); Red Blood Count 2.68 Miln/mm3 (4.00-5.20); White Blood Count 19.9 Thou/mm3 (3.6-11.0)
[2025-06-01] MEDS: DIVALPROEX SOD 125 MG SPRINKLE 250 MG PO ×3 (06:08→21:18)
[2025-06-01] MEDS: HEPARIN SOD INJ 5000 UNIT/ML VIAL SC ×3 (06:09→21:18)
[2025-06-01] MEDS: LEVOTHYROXINE SODIUM 25 MCG TABLET 50 MCG PO (06:09)
[2025-06-01 06:25] LABS: Anion Gap 37 (7-16); BUN/Creatinine Ratio 11 Ratio (12-20); Blood Urea Nitrogen 33 mg/dL (9-23); Calcium 9.5 mg/dL (8.3-10.6); Chloride 95 mMol/L (98-107); Creatinine (Component) 3.0 mg/dL (0.6-1.3); Estimated Creatinine Clearance 25.5 mL/min (>60); Glucose 104 mg/dL (74-106); Magnesium 2.2 mg/dL (1.6-2.6); Osmolality,Calculated 290 (275-295); Phosphorous 4.3 mg/dL (2.4-5.1); Potassium 4.4 mMol/L (3.4-5.1); Sodium 142 mMol/L (136-145); eGFR 17 See Note
[2025-06-01 06:41] LABS: Carbon Dioxide 10.5 mMol/L (20.0-31.0)
[2025-06-01] MEDS: AMIODARONE HCL 200 MG TABLET PO ×2 (09:02→21:17)
[2025-06-01] MEDS: MEROPENEM INJ 500 MG in SODIUM CHLORIDE 0.9% (Popper) 50 ML 100 MG IV (09:02)
[2025-06-01] MEDS: MIDODRINE 5 MG TABLET 10 MG PO ×4 (09:18→23:55)
[2025-06-01 09:34] LABS: Lactate (Lactic Acid) 18.0 mMol/L (0.4-2.0)
--- NOTE | 2025-06-01 11:05 | PC.SS ---
Patient Hollie Whaley is a 64 Year-old female admitted for Sepsis. SS met with patient at bedside to verify demographic information and verify discharge plan. Patient reports she is a group home resident at [facility]. Patient is bed bound and does not utilize 02. Patient needs assistance completing all ADL's. Patient reports her brother, Ben Whaley is her surrogate medical decision maker, . PCP is Kishore Mejía. Patient is established with outpatient dialysis. 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 Landry. Discharge plan is for the patient to return back to [facility]. Patient possesses coverage for Ambulance transport. Patient reported no concerns with current placement. Discharge Plan: [facility] Next of Kin: BrotherBen
--- NOTE | 2025-06-01 11:25 | ESPR_ITS ---
<Statement entered by Ken Marti MD - 06/01/25 19:33> Patient seen and examined at bedside. I discussed and supervised with the news internship physician who took care of this patient. I personally saw and examined the patient. I agree with most of the assessment and plan. Patient A&O x 4, resting comfortably. Complains only of nausea with poor appetite. Lactic acid improving, most recent lactate 7.3, bicarb 24. Continue dialysis as per Dr. Landry. Was family cleared patient [facility] facility that patient must not take metformin due to metformin associated lactic acidosis requiring ICU and emergent dialysis. Plan of care discussed with attending Dr. Ervin. Ken Marti MD PGY-2 Documentation for date of: 06/01/25 Subjective Subjective Interval history: A 64-year-old female with a medical history significant for 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 Landry, and a history of staghorn calculi, was transferred to the emergency department from a nursing facility with chief complaints of abdominal pain, nausea, and vomiting. The patient had been recently discharged from [facility] on 05/25/2025, where she had been admitted for sepsis secondary to a urinary tract infection. Upon evaluation, the patient was alert and oriented to person, place, and time (AO x 3), and able to appropriately respond to questions. She reported feeling nauseous and experiencing mild abdominal pain for the past 1.5 days, but denied any dysuria or burning sensation during urination. On presentation, the patient was hemodynamically stable. Laboratory findings included anemia (hemoglobin of 10.6), leukocytosis (WBC of 23.7), hyperkalemia (potassium of 5.9), metabolic acidosis with bicarbonate of <10, anion gap of 32, BUN of 39, creatinine of 3.8, eGFR of 13, glucose of 11, lactic acidosis (lactate of 10), phosphorus of 6.5, BMP of 2757, and LDH of 257. EKG showed A-fib. In the ED, the patient received multiple boluses of D50 to address hypoglycemia, but her blood glucose levels did not improve. As a result, she was started on a D10 drip. During the interview, her blood pressure dropped with MAP below 65, necessitating the initiation of Levophed drip. A central line was placed in the ED. Additionally, bicarbonate pushes were given to address the underlying acidosis, likely secondary to ESRD. A review of the patient?s chart revealed that she had been receiving metformin at the nursing facility, which may have contributed to the severe lactic acidosis. Given the complexity of her condition, the patient was admitted to the ICU for further management. *Interval History May be Reviewed in previous notes* 06/01/2025: Patient was seen and examined this morning. Patient is resting in bed in no acute distress, patient states she is a little nauseous and is usually nauseous, is hardly eating any food/liquid. Patients BP has been trending soft, HR has been in 110s and was up to 150s with a LBBB this overnight, O2 saturating well on room air. Patient has not had any BM's for this hospitalization. Patient still continues to have elevated WBC at 19.9 that is stable compared to yesterday; lactic acid still elevated at 18.0 and Anion Gap still elevated at 37 as of this morning. Planning to get Dialysis done today. Exam Vital Signs Temp Pulse Resp BP Pulse Ox O2 Del Method O2 Flow Rate 97.2 F 115 H 11 L 98/46 L 99 Room Air 1 06/01/25 08:00 06/01/25 09:18 06/01/25 08:00 06/01/25 09:18 06/01/25 08:00 06/01/25 08:00 06/01/25 06:11 Narrative Exam General: No acute distress; A&Ox3, lethargic Skin: Warm, dry, intact, no obvious rash. HENT: NCAT, EOMI, not icteric. External ears normal. No rhinorrhea. Dry mucous membranes Cardiovascular: Tachycardic, irregular rhythm, no murmur, +S1/S2. Respiratory: Lungs CTAB GI: Soft, mild mid-abdominal tenderness, non-distended. No guarding or rebound tenderness. Extremities: Bilateral pitting LE edema 2/3+, no cyanosis, no clubbing. Extremity pulses present Neuro: Conversant, moving R-sided extremities with good strength. Left side strength 0/5 (chronic). Sensation intact on R-side, sensation deficits on L- side. Psychiatric: Cooperative, appropriate affect. Objective Labs 06/01/25 05:05 06/01/25 16:35 Labs: Laboratory Results - last 24 hr 05/31/25 05/31/25 05/31/25 05:04 11:27 14:57 WBC RBC Hgb Hct MCV MCH MCHC RDW Std Deviation Plt Count Neut % (Auto) Lymph % (Auto) [place] % (Auto) Eos % (Auto) Baso % (Auto) Neut # (Auto) Lymph # (Auto) [place] # (Auto) Eos # (Auto) Baso # (Auto) Immature Gran # (Auto) Absolute Nucleated RBC Immature Gran % Neutrophils % (Manual) 91 H Monocytes % (Manual) 1 L Nucleated RBC % Band Neutrophils 2 Lymphocytes (Manual) 6 L Sodium Potassium Chloride Carbon Dioxide Anion Gap BUN Creatinine Estim Creat Clear Calc eGFR BUN/Creatinine Ratio Glucose Calculated Osmolality Lactic Acid 15.0 H* 18.0 H* Calcium Phosphorus Magnesium 05/31/25 05/31/25 05/31/25 17:06 20:27 23:27 WBC RBC Hgb Hct MCV MCH MCHC RDW Std Deviation Plt Count Neut % (Auto) Lymph % (Auto) [place] % (Auto) Eos % (Auto) Baso % (Auto) Neut # (Auto) Lymph # (Auto) [place] # (Auto) Eos # (Auto) Baso # (Auto) Immature Gran # (Auto) Absolute Nucleated RBC Immature Gran % Neutrophils % (Manual) Monocytes % (Manual) Nucleated RBC % Band Neutrophils Lymphocytes (Manual) Sodium Potassium Chloride Carbon Dioxide Anion Gap BUN Creatinine Estim Creat Clear Calc eGFR BUN/Creatinine Ratio Glucose Calculated Osmolality Lactic Acid 20.0 H* 21.0 H* 20.0 H* Calcium Phosphorus Magnesium 06/01/25 06/01/25 06/01/25 03:05 05:05 09:15 WBC 19.9 H RBC 2.68 L Hgb 9.0 L Hct 30.3 L MCV 113 H MCH 33.6 MCHC 29.7 L RDW Std Deviation 98.1 H Plt Count 257 D Neut % (Auto) 80 Lymph % (Auto) 12 [place] % (Auto) 7 Eos % (Auto) 0 Baso % (Auto) 0 Neut # (Auto) 15.9 H Lymph # (Auto) 2.4 [place] # (Auto) 1.4 H Eos # (Auto) 0.0 Baso # (Auto) 0.0 Immature Gran # (Auto) 0.23 H Absolute Nucleated RBC 0.11 H Immature Gran % 1 H Neutrophils % (Manual) Monocytes % (Manual) Nucleated RBC % 1 H Band Neutrophils Lymphocytes (Manual) Sodium 142 Potassium 4.4 D Chloride 95 L Carbon Dioxide 10.5 L* Anion Gap 37 H BUN 33 H Creatinine 3.0 H D Estim Creat Clear Calc 25.5 L eGFR 17 L BUN/Creatinine Ratio 11 L Glucose 104 D Calculated Osmolality 290 Lactic Acid 20.0 H* 18.0 H* Calcium 9.5 Phosphorus 4.3 Magnesium 2.2 ABG Interpretation ABG results: 05/31/25 05:04 VBG pH 7.12 L VBG pCO2 20 L VBG pO2 63 H VBG Base Excess -21 L Quality Measures Quality Measures VTE prophylaxis Assessment & Plan Assessment Current Active Medications: Generic Name Dose Route Start Last Admin Trade Name Freq PRN Reason Stop Dose Admin Acetaminophen 650 mg 05/31/25 04:25 Acetaminophen 325 Mg Tablet PO 06/30/25 04:24 Q6H PRN Fever >101.5 Hydrocodone Bitart/Acetaminophen 1 tab 05/31/25 18:32 05/31/25 20:13 Hydrocodone/Apap 5/325 Tablet PO 06/05/25 18:31 1 tab Q8HR PRN Administration Pain 4-10 Amiodarone HCl 200 mg 05/31/25 21:00 06/01/25 09:02 Amiodarone Hcl 200 Mg Tablet PO 06/30/25 20:59 200 mg BID RIANNA Administration Dextrose 25 ml 05/31/25 04:28 Dextrose 50%-Water Inj 50 Ml Syringe IV 06/30/25 04:27 Q15MIN PRN BG 50-70 responsive npo pt Dextrose 50 ml 05/31/25 04:28 05/31/25 19:52 Dextrose 50%-Water Inj 50 Ml Syringe IV 06/30/25 04:27 50 ml Q15MIN PRN Administration BG <50 OR BG <70 & pt unresponsive Divalproex Sodium 250 mg 05/31/25 22:00 06/01/25 06:08 Divalproex Sod 125 Mg Sprinkle PO 06/30/25 21:59 250 mg TID RIANNA Administration Glucagon 1 mg 05/31/25 04:28 Glucagon Inj 1 Mg Vial IM Q15MIN PRN BG <70, and no IV access Heparin Sodium (Porcine) 5,000 unit 05/31/25 21:00 06/01/25 06:09 Heparin Sod Inj 5000 Unit/Ml Vial SC 06/14/25 20:59 5,000 unit Q8HR RIANNA Administration Meropenem 500 mg/ Sodium 50 mls @ 100 mls/hr 06/01/25 09:00 06/01/25 09:02 Chloride IV 06/07/25 05:59 100 mls/hr QDAY RIANNA Administration Protocol Dextrose 500 mls @ 50 mls/hr 05/31/25 05:00 05/31/25 05:44 D10w IV 0 mls/hr On Hold: 05/31/25 06:44 .Q10H RIANNA Infusion Albumin Human 25 gm in 100 mls @ 100 mls/min 05/31/25 06:45 05/31/25 10:41 Albuminex 25% Ivpb IV Infused PRN PRN Infusion DIALYSIS Norepinephrine/Dextrose 8 mg in 250 mls @ 9.731 mls/hr 06/01/25 08:09 Levophed In D5w 8mg/250ml IV 06/30/25 04:39 .Q24H PRN PER PROTOCOL Protocol 0.05 MCG/KG/MIN Levothyroxine Sodium 50 mcg 06/01/25 06:00 06/01/25 06:09 Levothyroxine Sodium 25 Mcg Tablet PO 07/01/25 05:59 50 mcg ACBR RIANNA Administration Midodrine 10 mg 06/01/25 09:00 06/01/25 09:18 Midodrine 5 Mg Tablet PO 07/01/25 08:59 10 mg QID RIANNA Administration Ondansetron HCl 4 mg 05/31/25 04:25 06/01/25 09:01 Ondansetron Inj 2 Mg/Ml Inj 2 Ml IVP 06/30/25 04:24 4 mg Q6H PRN Administration NAUSEA OR VOMITING Protocol Ropinirole HCl 1 mg 06/01/25 09:00 06/01/25 09:03 Ropinirole Hcl 1 Mg Tablet PO 07/01/25 08:59 1 mg QDAY RIANNA Administration Plan A 64-year-old female with a medical history significant for 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 Landry, and a history of staghorn calculi, was transferred to the emergency department from a nursing facility with chief complaints of abdominal pain, nausea, and vomiting. The patient had been recently discharged from [facility] on 05/25/2025, where she had been admitted for sepsis secondary to a urinary tract infection. Patient was seen and examined at bedside; no longer on pressor support, continues to have elevated lactic acid. Per nephrology recommendation, patient will undergo conventional hemodialysis both to dialyze the offending agent (metformin) as well as the lactic acid which is also dialyzable. Importantly, she had originally been admitted to the [facility] ICU on 05/17 for severe lactic acidosis and shock where it was eventually discovered that patient had been receiving metformin at her SNF despite her ESRD status. Despite making a direct call to patient's nurse at [facility] during her last admission as well as documenting the importance of discontinuing patient's metformin, paper charts and SNF confirmed that patient, with her known ESRD status, had continued to receive metformin after she had been discharged last time for the same metformin-induced lactic acidosis. Current plan is to trend lactic acid as patient receives dialysis while maintaining adequate blood pressures with pressor support as appropriate (currently not needing pressure support). 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 #Metabolic encephalopathy 2/2 underlying lactic acidosis and shock Patient is lethargic but is oriented to person, place, and time and is expected to improve once metabolic derangements are corrected by HD #History of CVA w/ residual left-sided weakness Stable Rx: -Consider restarting aspirin and statin once clinically stabilized CVS #Distributive shock 2/2 severe metformin-induced lactic acidosis w/ possible septic component Dx: -Admission LA 22.0 w/ confirmation that patient has been continuing to receive metformin at her SNF -Pre-PLR and Post-PLR NICOM suggestive of distributive shock etiology -UA showed 3+ bacteria but is nitrite negative and without accompanying leukocytosis or fever. Also, her UA from last admission on 05/17 showed similar findings but UCx did not end up growing anything, suggesting that these UA findings may instead be from sterile pyuria and chronic colonization in an ESRD patient who does not have free-flowing urine. -Last echo from a month ago revealed EF of 15 to 20% but currently does not appear to be hypervolemic at this time (decompensated CHF exacerbation less likely) -Pressor support currently being held as tolerated -Urine cx prelim showed GNR -Blood cx 1/2 showed GPC (suspecting contaminant) - F/u BMP/Lactic Acid Rx: -HD today for both vascular congestion and metformin toxicity -Continue midodrine 10 mg po qid -Treat underlying condition such as sepsis with IV meropenem as patient has a history of ESBL -Follow up on Final urine and blood cultures, if negative after 48 hours, will discontinue antibiotics #A-fib Home medication is amiodarone and Eliquis - Resume home PO amiodarone (patient had passed bedside swallow) - Hold Eliquis (difficult to reverse which is dangerous in critically ill patients), started SubQ heparin 5000 U q8HR instead - Continue property assessment monitor #HFrEF 15 to 20% on 04/2025 #Dilated cardiomyopathy Patient recently discharged from the hospital with plan of optimized GDMT Labs revealed elevated BNP, troponin within normal limit - Strict CHIQUIS's - Daily weight - Fluid status management with hemodialysis - Currently holding metoprolol in the setting of shock Respiratory #Acute hypoxic respiratory failure, resolving On examination, patient is currently saturating well on room air CXR did show vascular congestion with fluid in the fissure on the right side. GI Patient has passed bedside swallow and has been put on Diet: Carbohydrate Consistent Low (w/ Renal Modification) Endo #History of DM type II #Refractory hypoglycemia Last time patient was admitted in ICU and had metformin associated lactic acidosis, the plan was at that time to discontinue metformin However looking at her active medication list from SNF, apparently patient was still on metformin which can explain her lactic acidosis In ED patient was given multiple pushes of D50, despite blood sugar remained low, Patient was placed on the D10 W as a result Patient's sugars have been stable last 24 hours, blood sugar checks q4hr. Rx: -PERMANENTLY STOP METFORMIN, MEDICATION IS ABSOLUTELY CONTRAINDICATED IN THIS PATIENT WITH ESRD STATUS ([facility] nurse has been contacted directly and has stated that they have discontinued patient's metformin) -Start insulin sliding scale if glucose exceeds 180 on multiple reads #Hypothyroidism Continue home levothyroxine Renal #ESRD on hemodialysis #High anion gap metabolic acidosis 2/2 severe metformin-induced lactic acidosis #Hyperkalemia in the setting of ESRD Rx: -HD as per Nephrology recommendations -Monitor CMP and other labs after dialysis to evaluate recovery progress -Continue to monitor for hyperkalemia in the setting of ESRD -F/u BMP/Lactic Acid ID #Sterile pyuria #??Sepsis DDx: UTI Dx: -UA showed 3+ bacteria but is nitrite negative and without accompanying leukocytosis or fever. Also, her UA from last admission on 05/17 showed similar findings but UCx did not end up growing anything, suggesting that these UA findings may instead be from sterile pyuria and chronic colonization in an ESRD patient who does not have free-flowing urine. -SIRS criteria technically met -History of urine culture growing ESBL -06/01 urine cx preliminary positive for GNR; blood cx /2 prelim positive for GPC (suspecting contamination) Rx: -IV meropenem 500 mg qD -Follow up on Final urine cultures, stop antibiotics if no growth after 48 hours Hematology #Leukocytosis Likely reactive but currently evaluating for underlying infection #Macrocytic anemia Appears near baseline, stable, will continue to monitor Disposition: Admitted to ICU due to initially requiring pressors in the setting of metformin-induced lactic acidosis; no longer requiring pressors as of now; Lactic Acid still elevated. DVT prophylaxis: SubQ Heparin q8HR GI prophylaxis: None Diet: Carbohydrate Consistent Low (Renal Modification) Turner: Present Lines: Peripheral IV, Central IV Antibiotics: IV meropenem CODE STATUS: FULL Patient plan of care was discussed with the attending physician, Dr. Ervin & senior resident Dr. Chelo LEGGETT PGY-1
[2025-06-01 12:29] LABS: Reflex Lactate? Y
[2025-06-01 13:13] LABS: Lactic Acid, 3 HR 15.0 mMol/L (0.4-2.0)
[2025-06-01] MEDS: ALBUMIN HUMAN-KJDA 25% IVPB 25 GM/100 ML BTL IV (13:34)
--- NOTE | 2025-06-01 14:16 | ESCONSULT_ITS ---
RE: RUBÉN VIVAR : 1960 DATE OF CONSULTATION: 06/01/2025 REASON FOR REFERRAL: ESRD management. REFERRING PHYSICIAN: Flores Barakat MD HISTORY OF PRESENT ILLNESS: This patient is a 64-year-old woman with past medical history significant for CVA, atrial fibrillation, heart failure with reduced ejection fraction of 15% to 20%, moderate pulmonary hypertension, and ESRD on dialysis since 04/30/2025, [facility] [place] every Friday, , and Friday, who presented to the emergency room on 05/31/2025 for abdominal pain, nausea, and vomiting. The patient was recently discharged and now came back with abdominal pain and was found with lactic acidosis of 10 and a CO2 of less than 10. The patient was found taking metformin last admission and [facility] was told about discontinuation of metformin; however, it seems like the patient continues to take metformin at [facility]. The patient was dialyzed yesterday and somehow she improved clinically. Her blood pressures were also low and was admitted in ICU for vasopressor. The patient also has a history of huge left staghorn calculi, but is a poor surgical candidate. Her urinalysis also showed WBC with RBC and 2+ bacteria. The patient was also noted to be hypoglycemic upon admission. PAST MEDICAL HISTORY: Atrial fibrillation, hypothyroidism, CVA, CHF with severe global hypokinesis and a huge left staghorn calculus. PAST SURGICAL HISTORY: Dialysis catheter placement. CURRENT MEDICATIONS: 1. Acetaminophen p.r.n. 2. Amiodarone 200 mg p.o. b.i.d. 3. Hydrocodone 1 g IV daily, now 500 mg IV daily 4. Midodrine 10 mg p.o. q.i.d. 5. Ondansetron 6. Ropinirole 1 mg p.o. daily. PHYSICAL EXAMINATION: GENERAL: She is awake, alert, oriented, not in respiratory distress. VITAL SIGNS: Blood pressure 82/69 on Levophed. Heart rate of 117. HEENT: Anicteric sclerae. Normocephalic. NECK: Supple. No JVD. CHEST AND LUNGS: No expansion. Clear breath sounds. HEART: Without murmur. ABDOMEN: Soft and distended. EXTREMITIES: 2-3+ bilateral pink edema. LABORATORY DATA: Hemoglobin 9, WBC 19,800, platelet count 257,000. Sodium 142, potassium 4.4, chloride 95, CO2 10.5, BUN 33, creatinine 3, lactic acid 18. ASSESSMENT: 1. End-stage renal disease. 2. Lactic acidosis secondary to metformin, an iatrogenic case . halfway facility was told not to give discharge, last time she was discharged. 3. Anemia of chronic disease. 4. Hypotension secondary to heart failure with reduced ejection fraction with global hypokinesis. 5. Anasarca. 6. Urinary tract infection with possible sepsis. 7. Anemia of chronic disease. PLAN: The patient will be dialyzed today and we will try to remove 1-2 L a day with midodrine and Levophed. I will also resume her Retacrit 10,000 units subcutaneously2- 3 times a week. The patient will be dialyzed daily for lactic acidosis removal. DT: 13:37:08 TT: 14:15:00 Ref: [id number] - TID: [id number] MTDD
--- NOTE | 2025-06-01 15:11 | PC.SS ---
Update: Patient receiving dialysis session today.
[2025-06-01] MEDS: HEPARIN SOD INJ 1000 UNIT/ML VIAL 10 ML 3300 UNIT INDWELLCAT (15:35)
--- NOTE | 2025-06-01 16:10 | PD.INTPROG ---
Documentation for date of: 06/01/25 Subjective Subjective Interval history: This is a 64yo F who was DCd from [facility] on 05/25. She was originally admitted on 05/17 for severe acidosis and shock. She was found to have metformin toxicity as well as sepsis. Her acidosis resolved with HD. [place] [facility] [place] her on metformin 1000mg q12 once more. She was there for 5 days and sent to ER for n/v and abd pain. She was found to be hypotensive, acidotic, hypoglycemic and altered. Her LA was 20 and she received several amps of HCO3, D50 and started on levophed. She was dx with metformin toxicity, shock likely distributive with ? of underlying sepsis. This AM she is awake, lethargic but responsive, c/o general malaise. There is minimal UOP, she is ESRD, and she is afebrile. 06/01-no acute overnight events, currently on dialysis, minimal pressor requirements. Awake alert and oriented conversant Critical Care Note Critical care time (min.): 45 Exam Vital Signs Temp Pulse Resp BP Pulse Ox O2 Del Method O2 Flow Rate 97.1 F 117 H 22 H 98/54 L 99 Room Air 1 06/01/25 16:03 06/01/25 16:03 06/01/25 16:03 06/01/25 16:03 06/01/25 16:03 06/01/25 08:00 06/01/25 06:11 Narrative Exam General-no acute distress, awake alert and oriented, conversant, obese HEENT-normocephalic, atraumatic, sclera icteric, oral mucosa is hydrated, poor dentition Chest-lungs clear to auscultation bilaterally, heart regular rhythmic, no bruits, murmur, no increased work of breathing Abdomen-soft, nontender, sounds present, no rebound or guarding Extremities-edema to 3+ pitting bilateral lower extremities with spasticity of her left side, no mottling, no clubbing Drips Levophed Physical Exam Completion Physical Exam Complete?: Yes Objective - [place] [employer] Labs 06/01/25 05:05 06/01/25 05:05 Labs: Laboratory Results - last 24 hr 05/31/25 05/31/25 05/31/25 17:06 20:27 23:27 WBC RBC Hgb Hct MCV MCH MCHC RDW Std Deviation Plt Count Neut % (Auto) Lymph % (Auto) Cascade % (Auto) Eos % (Auto) Baso % (Auto) Neut # (Auto) Lymph # (Auto) Cascade # (Auto) Eos # (Auto) Baso # (Auto) Immature Gran # (Auto) Absolute Nucleated RBC Immature Gran % Nucleated RBC % Sodium Potassium Chloride Carbon Dioxide Anion Gap BUN Creatinine Estim Creat Clear Calc eGFR BUN/Creatinine Ratio Glucose Calculated Osmolality Lactic Acid 20.0 H* 21.0 H* 20.0 H* Calcium Phosphorus Magnesium 06/01/25 06/01/25 06/01/25 03:05 05:05 09:15 WBC 19.9 H RBC 2.68 L Hgb 9.0 L Hct 30.3 L MCV 113 H MCH 33.6 MCHC 29.7 L RDW Std Deviation 98.1 H Plt Count 257 D Neut % (Auto) 80 Lymph % (Auto) 12 Cascade % (Auto) 7 Eos % (Auto) 0 Baso % (Auto) 0 Neut # (Auto) 15.9 H Lymph # (Auto) 2.4 Cascade # (Auto) 1.4 H Eos # (Auto) 0.0 Baso # (Auto) 0.0 Immature Gran # (Auto) 0.23 H Absolute Nucleated RBC 0.11 H Immature Gran % 1 H Nucleated RBC % 1 H Sodium 142 Potassium 4.4 D Chloride 95 L Carbon Dioxide 10.5 L* Anion Gap 37 H BUN 33 H Creatinine 3.0 H D Estim Creat Clear Calc 25.5 L eGFR 17 L BUN/Creatinine Ratio 11 L Glucose 104 D Calculated Osmolality 290 Lactic Acid 20.0 H* 18.0 H* Calcium 9.5 Phosphorus 4.3 Magnesium 2.2 06/01/25 12:51 WBC RBC Hgb Hct MCV MCH MCHC RDW Std Deviation Plt Count Neut % (Auto) Lymph % (Auto) Cascade % (Auto) Eos % (Auto) Baso % (Auto) Neut # (Auto) Lymph # (Auto) Cascade # (Auto) Eos # (Auto) Baso # (Auto) Immature Gran # (Auto) Absolute Nucleated RBC Immature Gran % Nucleated RBC % Sodium Potassium Chloride Carbon Dioxide Anion Gap BUN Creatinine Estim Creat Clear Calc eGFR BUN/Creatinine Ratio Glucose Calculated Osmolality Lactic Acid 15.0 H* Calcium Phosphorus Magnesium Assessment & Plan Additional Assessment Additional Assessment: In summary this is a 64yo F admitted to the ICU for shock thought to be distributive in nature and secondary to the acidosis a/p [employer] Metabolic encephalopathy-secondary to underlying acidosis and shock, anticipate improvement -Improved today History of old stroke with residual left-sided weakness CV Shock-improved -Found to be distributive in nature and secondary to her severe acidosis from metformin -She is currently on antibiotics -1 out of 2 blood cultures returned positive for GPC's -Urine culture shows gram-negative rods - on meropenem Heart failure with reduced EF-last echo showed an EF of 20 to 25% on 24 May of this year. There was severe global hypokinesia and the LV was moderately dilated. - not felt to be in active decompensated heart failure at this time A-fib-she -on amiodarone - Resume Eliquis once she is downgraded from the ICU Resp Acute hypoxic respiratory failure-patient is currently requiring a couple of liters via nasal cannula, chest x-ray shows vascular congestion with fluid in the fissure - Improved today Renal End-stage renal disease on hemodialysis-followed by nephrology Hypokalemia-mild anticipate improvement with dialysis Anion gap metabolic acidosis-secondary to elevated lactate and likely due to metformin toxicity. She is undergoing dialysis anticipate improvement. Will repeat labs after dialysis -Continues to have a lactate of 15 today -Bicarb is improving -Follow-up on labs postdialysis Pyuria-originally sterile pyuria was suspected however patient's urine culture has grown greater than 100,000 colonies of gram-negative rods - has had ESBL in the past GI Nutrition- started on diet Endo DM- PERMANENTLY STOP METFORMIN - was hypoglycemic on arrival and received D50 and D10 gtt - SSI once glucose >180 on several reads Hypothyroid- cont levothyroxine Heme Anemia, macrocytic-appears near baseline -Down to 9 from 10.6 yesterday -No obvious bleeding noted DVT prophylaxis-heparin Leukocytosis-likely reactive in nature however evaluating for any underlying infection at this time - Trending back down ID SIRS + Ucx with GNR >100k colonies Case discussed with ICU team Labs, imaging and records reviewed Approximately 45ccmin required for evaluation, exam, review, intervention, discussion and formulation of plan of care for this critically ill patient in shock on pressors Provider Notation Provider Notation: Although this document has been carefully reviewed, there may still be some phonetic and other typographical errors. These errors are purely grammatical due to imperfections in the software program and should not be construed in any way to compromise the substance of the patient's medical care during this visit. Thank you for the opportunity and privilege in assisting you with this patient's care and management.
[2025-06-01 17:00] LABS: Lactate (Lactic Acid) 7.3 mMol/L (0.4-2.0)
[2025-06-01 17:33] LABS: Anion Gap 20 (7-16); BUN/Creatinine Ratio 9 Ratio (12-20); Blood Urea Nitrogen 14 mg/dL (9-23); Calcium 8.6 mg/dL (8.3-10.6); Carbon Dioxide 24.0 mMol/L (20.0-31.0); Chloride 98 mMol/L (98-107); Creatinine (Component) 1.6 mg/dL (0.6-1.3); Estimated Creatinine Clearance 48.5 mL/min (>60); Glucose 94 mg/dL (74-106); Osmolality,Calculated 283 (275-295); Potassium 3.8 mMol/L (3.4-5.1); Sodium 142 mMol/L (136-145); eGFR 36 See Note
[2025-06-01 19:44] LABS: Reflex Lactate? Y
[2025-06-01 20:16] LABS: Lactic Acid, 3 HR 7.2 mMol/L (0.4-2.0)
[2025-06-01 23:06] LABS: Lactate (Lactic Acid) 8.4 mMol/L (0.4-2.0)
[2025-06-02] VITALS (54 sets, daily range): BP systolic 66–120; BP diastolic 41–75; PULSE 78–120; RESP 11–99; TEMP 36.1–37.2; O2SAT 94–100
[2025-06-02 02:03] LABS: Reflex Lactate? Y
[2025-06-02 03:04] LABS: Lactic Acid, 3 HR 6.8 mMol/L (0.4-2.0)
[2025-06-02 05:28] LABS: Basophils # (Auto) 0.0 Thou/mm3 (0.0-0.2); Basophils % (Auto) 0 % (0-2.5); Eosinophils # (Auto) 0.0 Thou/mm3 (0.0-0.5); Eosinophils % (Auto) 1 % (0-10); Hematocrit 22.9 % (36.0-46.0); Immature Granulocytes Auto 0.05 Thou/mm3 (0.00-0.00); Lymphocytes # (Auto) 1.6 Thou/mm3 (1.0-4.8); Lymphocytes % (Auto) 19 % (10-50); Mean Corpuscular HGB Conc 31.4 g/dl (31.0-37.0); Mean Corpuscular Hemoglobin 33.6 pg (25.0-35.0); Mean Corpuscular Volume 107 fL (80-100); Monocytes # (Auto) 0.7 Thou/mm3 (0.0-0.8); Monocytes % (Auto) 8 % (0-12); Neutrophils # (Auto) 6.2 Thou/mm3 (1.8-7.7); Neutrophils % (Auto) 72 % (37-80); Nucleated Red Blood Cell # 0.03 Thou/mm3 (0.00-0.00); Nucleated Red Blood Cell % 0 /100 WBC (0); Platelet Count 155 Thou/mm3 (140-440); RDW Standard Deviation 88.6 fL (36.4-46.3); Red Blood Count 2.14 Miln/mm3 (4.00-5.20); White Blood Count 8.6 Thou/mm3 (3.6-11.0)
[2025-06-02 05:40] LABS: Hemoglobin 7.2 g/dL (12.0-16.0)
[2025-06-02 05:56] LABS: Anion Gap 15 (7-16); BUN/Creatinine Ratio 9 Ratio (12-20); Blood Urea Nitrogen 19 mg/dL (9-23); Calcium 8.4 mg/dL (8.3-10.6); Carbon Dioxide 27.4 mMol/L (20.0-31.0); Chloride 101 mMol/L (98-107); Creatinine (Component) 2.1 mg/dL (0.6-1.3); Estimated Creatinine Clearance 37.0 mL/min (>60); Glucose 108 mg/dL (74-106); Magnesium 1.8 mg/dL (1.6-2.6); Osmolality,Calculated 288 (275-295); Phosphorous 2.1 mg/dL (2.4-5.1); Potassium 3.8 mMol/L (3.4-5.1); Sodium 143 mMol/L (136-145); eGFR 26 See Note
[2025-06-02] MEDS: HEPARIN SOD INJ 5000 UNIT/ML VIAL SC ×2 (06:11→14:37)
[2025-06-02] MEDS: DIVALPROEX SOD 125 MG SPRINKLE 250 MG PO ×3 (06:11→21:02)
[2025-06-02] MEDS: LEVOTHYROXINE SODIUM 25 MCG TABLET 50 MCG PO (06:11)
[2025-06-02] MEDS: MIDODRINE 5 MG TABLET 10 MG PO ×4 (06:11→23:37)
[2025-06-02 09:28] LABS: Lactate (Lactic Acid) 3.3 mMol/L (0.4-2.0)
--- NOTE | 2025-06-02 10:17 | ESPR_ITS ---
<Statement entered by Ken Marti MD - 06/02/25 15:46> Patient seen and examined at bedside. I discussed and supervised with the computer science intern physician who took care of this patient. I personally saw and examined the patient. I agree with most of the assessment and plan. Patient has been successfully weaned off pressors. Lactic acid is still trending down, after dialysis remains stable at 2.5. Patient A&O x 4, appropriately responsive. Blood pressure remained stable, not fluid responsive per Cheetah. Continue treatment with midodrine. Urine culture positive for ESBL E. coli, continue treatment with meropenem. Blood culture 1/2 GPC, per lab in clusters, suspect contamination. Will continue to await speciation. As patient remains stable will downgrade to telemetry for further management. Plan of care discussed with attending Dr. Ervin. Ken Marti MD PGY-2 Documentation for date of: 06/02/25 Subjective Subjective Interval history: A 64-year-old female with a medical history significant for 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 Landry, and a history of staghorn calculi, was transferred to the emergency department from a nursing facility with chief complaints of abdominal pain, nausea, and vomiting. The patient had been recently discharged from [facility] on 05/25/2025, where she had been admitted for sepsis secondary to a urinary tract infection. Upon evaluation, the patient was alert and oriented to person, place, and time (AO x 3), and able to appropriately respond to questions. She reported feeling nauseous and experiencing mild abdominal pain for the past 1.5 days, but denied any dysuria or burning sensation during urination. On presentation, the patient was hemodynamically stable. Laboratory findings included anemia (hemoglobin of 10.6), leukocytosis (WBC of 23.7), hyperkalemia (potassium of 5.9), metabolic acidosis with bicarbonate of <10, anion gap of 32, BUN of 39, creatinine of 3.8, eGFR of 13, glucose of 11, lactic acidosis (lactate of 10), phosphorus of 6.5, BMP of 2757, and LDH of 257. EKG showed A-fib. In the ED, the patient received multiple boluses of D50 to address hypoglycemia, but her blood glucose levels did not improve. As a result, she was started on a D10 drip. During the interview, her blood pressure dropped with MAP below 65, necessitating the initiation of Levophed drip. A central line was placed in the ED. Additionally, bicarbonate pushes were given to address the underlying acidosis, likely secondary to ESRD. A review of the patient?s chart revealed that she had been receiving metformin at the nursing facility, which may have contributed to the severe lactic acidosis. Given the complexity of her condition, the patient was admitted to the ICU for further management. *Interval History May be Reviewed in previous notes* 06/01/2025: Patient was seen and examined this morning. Patient is resting in bed in no acute distress, patient states she is a little nauseous and is usually nauseous, is hardly eating any food/liquid. Patients BP has been trending soft, HR has been in 110s and was up to 150s with a LBBB this overnight, O2 saturating well on room air. Patient has not had any BM's for this hospitalization. Patient still continues to have elevated WBC at 19.9 that is stable compared to yesterday; lactic acid still elevated at 18.0 and Anion Gap still elevated at 37 as of this morning. Planning to get Dialysis done today. 06/02/2025: No acute events overnight. Patient seen and examined this morning. Patient resting in bed in no acute distress. Patient states she is feeling hungry this morning and does not have any nausea this morning. Patients BP has been trending soft, HR has been in 110s, O2 saturating well on room air. Patient did not have a BM in the last 24 hours. Patient's Hgb this morning was 7.2, with repeat H/H of 8.0 hgb so signs/symptoms of blood loss, no dizziness, chest pain, shortness of breath. Dialysis completed this morning, lactic acid down to 2.5 this afternoon, planning to downgrade to floors. Exam Vital Signs Temp Pulse Resp BP Pulse Ox O2 Del Method O2 Flow Rate 97.3 F 87 20 98/51 L 99 Room Air 1 10/02/25 08:03 06/02/25 10:15 06/02/25 09:16 06/02/25 10:15 06/02/25 09:16 06/01/25 20:00 06/01/25 06:11 Narrative Exam General: No acute distress; A&Ox3, lethargic Skin: Warm, dry, intact, no obvious rash. HENT: NCAT, NICHOLAS, decreased bilateral eye movement to L (chronic), not icteric. External ears normal. No rhinorrhea. Dry mucous membranes Cardiovascular: Regular rate, irregular rhythm, no murmur, +S1/S2. Respiratory: Lungs CTAB GI: Soft, non-tender, non-distended. No guarding or rebound tenderness. Extremities: Bilateral pitting LE edema 2/3+; L LE around ankle wound; no cyanosis, no clubbing. Extremity pulses present Neuro: Conversant, moving R-sided extremities with good strength. Left side strength 0/5 (chronic). Sensation intact on R-side, sensation deficits on L- side. Psychiatric: Cooperative, appropriate affect. Objective Labs 06/02/25 09:15 06/02/25 04:07 Labs: Laboratory Results - last 24 hr 06/01/25 06/01/25 06/01/25 12:51 16:35 20:04 WBC RBC Hgb Hct MCV MCH MCHC RDW Std Deviation Plt Count Neut % (Auto) Lymph % (Auto) Summers % (Auto) Eos % (Auto) Baso % (Auto) Neut # (Auto) Lymph # (Auto) Summers # (Auto) Eos # (Auto) Baso # (Auto) Immature Gran # (Auto) Absolute Nucleated RBC Immature Gran % Nucleated RBC % Sodium 142 Potassium 3.8 D Chloride 98 Carbon Dioxide 24.0 Anion Gap 20 H BUN 14 Creatinine 1.6 H D Estim Creat Clear Calc 48.5 L eGFR 36 L BUN/Creatinine Ratio 9 L Glucose 94 Calculated Osmolality 283 Lactic Acid 15.0 H* 7.3 H* 7.2 H* Calcium 8.6 Phosphorus Magnesium 06/01/25 06/02/25 06/02/25 22:50 02:38 04:07 WBC 8.6 D RBC 2.14 L Hgb 7.2 L Hct 22.9 L MCV 107 H MCH 33.6 MCHC 31.4 RDW Std Deviation 88.6 H Plt Count 155 D Neut % (Auto) 72 Lymph % (Auto) 19 Summers % (Auto) 8 Eos % (Auto) 1 Baso % (Auto) 0 Neut # (Auto) 6.2 Lymph # (Auto) 1.6 Summers # (Auto) 0.7 Eos # (Auto) 0.0 Baso # (Auto) 0.0 Immature Gran # (Auto) 0.05 H Absolute Nucleated RBC 0.03 H Immature Gran % 1 H Nucleated RBC % 0 Sodium 143 Potassium 3.8 Chloride 101 Carbon Dioxide 27.4 Anion Gap 15 BUN 19 Creatinine 2.1 H D Estim Creat Clear Calc 37.0 L eGFR 26 L BUN/Creatinine Ratio 9 L Glucose 108 H Calculated Osmolality 288 Lactic Acid 8.4 H* 6.8 H* Calcium 8.4 Phosphorus 2.1 L Magnesium 1.8 06/02/25 09:15 WBC RBC Hgb Hct MCV MCH MCHC RDW Std Deviation Plt Count Neut % (Auto) Lymph % (Auto) Summers % (Auto) Eos % (Auto) Baso % (Auto) Neut # (Auto) Lymph # (Auto) Summers # (Auto) Eos # (Auto) Baso # (Auto) Immature Gran # (Auto) Absolute Nucleated RBC Immature Gran % Nucleated RBC % Sodium Potassium Chloride Carbon Dioxide Anion Gap BUN Creatinine Estim Creat Clear Calc eGFR BUN/Creatinine Ratio Glucose Calculated Osmolality Lactic Acid 3.3 H Calcium Phosphorus Magnesium ABG Interpretation ABG results: 05/31/25 05:04 VBG pH 7.12 L VBG pCO2 20 L VBG pO2 63 H VBG Base Excess -21 L Quality Measures Quality Measures VTE prophylaxis Assessment & Plan Assessment Current Active Medications: Generic Name Dose Route Start Last Admin Trade Name Freq PRN Reason Stop Dose Admin Acetaminophen 650 mg 05/31/25 04:25 Acetaminophen 325 Mg Tablet PO 06/30/25 04:24 Q6H PRN Fever >101.5 Hydrocodone Bitart/Acetaminophen 1 tab 05/31/25 18:32 05/31/25 20:13 Hydrocodone/Apap 5/325 Tablet PO 06/05/25 18:31 1 tab Q8HR PRN Administration Pain 4-10 Amiodarone HCl 200 mg 05/31/25 21:00 06/01/25 21:17 Amiodarone Hcl 200 Mg Tablet PO 06/30/25 20:59 200 mg BID RIANNA Administration Dextrose 25 ml 05/31/25 04:28 Dextrose 50%-Water Inj 50 Ml Syringe IV 06/30/25 04:27 Q15MIN PRN BG 50-70 responsive npo pt Dextrose 50 ml 05/31/25 04:28 05/31/25 19:52 Dextrose 50%-Water Inj 50 Ml Syringe IV 06/30/25 04:27 50 ml Q15MIN PRN Administration BG <50 OR BG <70 & pt unresponsive Divalproex Sodium 250 mg 05/31/25 22:00 06/02/25 06:11 Divalproex Sod 125 Mg Sprinkle PO 06/30/25 21:59 250 mg TID RIANNA Administration Epoetin Jemal 10,000 unit 06/02/25 09:00 Epoetin Jemal-Epbx Inj 10,000 Unit/Ml Vial (Esrd) SC 07/02/25 08:59 2 X WEEKLY RIANNA Glucagon 1 mg 05/31/25 04:28 Glucagon Inj 1 Mg Vial IM Q15MIN PRN BG <70, and no IV access Heparin Sodium (Porcine) 5,000 unit 05/31/25 21:00 06/02/25 06:11 Heparin Sod Inj 5000 Unit/Ml Vial SC 06/14/25 20:59 5,000 unit Q8HR RIANNA Administration Heparin Sodium (Porcine) 3,300 unit 06/02/25 08:06 Heparin Sod Inj 1000 Unit/Ml Vial 10 Ml INDWELLCAT 06/16/25 08:05 X1 PRN DIALYSIS Meropenem 500 mg/ Sodium 50 mls @ 100 mls/hr 06/01/25 09:00 06/01/25 09:02 Chloride IV 06/07/25 05:59 100 mls/hr QDAY RIANNA Administration Protocol Dextrose 500 mls @ 50 mls/hr 05/31/25 05:00 05/31/25 05:44 D10w IV 0 mls/hr On Hold: 05/31/25 06:44 .Q10H RIANNA Infusion Albumin Human 25 gm in 100 mls @ 100 mls/min 05/31/25 06:45 06/01/25 13:35 Albuminex 25% Ivpb IV Infused PRN PRN Infusion DIALYSIS Norepinephrine/Dextrose 8 mg in 250 mls @ 9.731 mls/hr 06/01/25 08:09 Levophed In D5w 8mg/250ml IV 06/30/25 04:39 .Q24H PRN PER PROTOCOL Protocol 0.05 MCG/KG/MIN Levothyroxine Sodium 50 mcg 06/01/25 06:00 06/02/25 06:11 Levothyroxine Sodium 25 Mcg Tablet PO 07/01/25 05:59 50 mcg ACBR RIANNA Administration Midodrine 10 mg 06/02/25 00:00 06/02/25 06:11 Midodrine 5 Mg Tablet PO 07/02/25 00:00 10 mg Q6HR RIANNA Administration Ondansetron HCl 4 mg 05/31/25 04:25 06/01/25 09:01 Ondansetron Inj 2 Mg/Ml Inj 2 Ml IVP 06/30/25 04:24 4 mg Q6H PRN Administration NAUSEA OR VOMITING Protocol Ropinirole HCl 1 mg 06/01/25 09:00 06/02/25 09:11 Ropinirole Hcl 1 Mg Tablet PO 07/01/25 08:59 1 mg QDAY RIANNA Administration Plan A 64-year-old female with a medical history significant for 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 Landry, and a history of staghorn calculi, was transferred to the emergency department from a nursing facility with chief complaints of abdominal pain, nausea, and vomiting. The patient had been recently discharged from [facility] on 05/25/2025, where she had been admitted for sepsis secondary to a urinary tract infection. Patient was seen and examined at bedside; no longer on pressor support, lactic acid levels are down trending. Per nephrology recommendation, patient will undergo conventional hemodialysis both to dialyze the offending agent (metformin) as well as the lactic acid which is also dialyzable. Importantly, she had originally been admitted to the [facility] ICU on 05/17 for severe lactic acidosis and shock where it was eventually discovered that patient had been receiving metformin at her SNF despite her ESRD status. Despite making a direct call to patient's nurse at [facility] during her last admission as well as documenting the importance of discontinuing patient's metformin, paper charts and SNF confirmed that patient, with her known ESRD status, had continued to receive metformin after she had been discharged last time for the same metformin-induced lactic acidosis. Current plan is to trend lactic acid as patient receives dialysis while maintaining adequate blood pressures with pressor support as appropriate (currently not needing pressure support). Dialysis completed this morning, lactic acid down to 2.5 this afternoon, patient's MAP is > 65, cheetah done 06/02 showed not fluid responsive, planning to downgrade to floors. DIGITAL [employer]ENS[employer] EXAMINER #Metabolic encephalopathy 2/2 underlying lactic acidosis and shock, resolved Patient is lethargic but is oriented to person, place, and time and is expected to improve once metabolic derangements are corrected by HD #History of CVA w/ residual left-sided weakness Stable Rx: -Consider restarting aspirin and statin once clinically stabilized CVS #Distributive shock 2/2 severe metformin-induced lactic acidosis w/ possible septic component, resolved Dx: -Admission LA 22.0 w/ confirmation that patient has been continuing to receive metformin at her SNF -Pre-PLR and Post-PLR NICOM suggestive of distributive shock etiology -UA showed 3+ bacteria but is nitrite negative and without accompanying leukocytosis or fever. Also, her UA from last admission on 05/17 showed similar findings but UCx did not end up growing anything, suggesting that these UA findings may instead be from sterile pyuria and chronic colonization in an ESRD patient who does not have free-flowing urine. -Last echo from a month ago revealed EF of 15 to 20% but currently does not appear to be hypervolemic at this time (decompensated CHF exacerbation less likely) -Pressor support currently being held as tolerated -Urine cx Final showed Ecoli with >100k colonies/ml (patient has a history of ESBL) -05/31 Blood cx Final 09/02 showed Staph. auricularis (likely contaminant) Rx: -HD today for both vascular congestion and metformin toxicity -Continue midodrine 10 mg po qid -Continue IV meropenem -Follow up repeat Blood cx's x2 taken 06/02 #A-fib (chronic) Home medication is amiodarone and Eliquis - Resume home PO amiodarone (patient had passed bedside swallow) - Hold Eliquis (difficult to reverse which is dangerous in critically ill patients), started SubQ heparin 5000 U q8HR instead - Continue youth nutritional monitor #HFrEF 15 to 20% on 04/2025 #Dilated cardiomyopathy Patient recently discharged from the hospital with plan of optimized GDMT (only currently prescribed B-galina; no TETE inhibitor, MRA or SGLT2 known to be prescribed - due to ESRD on dialysis) Labs revealed elevated BNP, troponin within normal limit - Strict CHIQUIS's - Daily weight - Fluid status management with hemodialysis - Currently holding metoprolol in the setting of shock, may consider resuming if BP allows. Respiratory #Acute hypoxic respiratory failure, resolved On examination, patient is currently saturating well on room air CXR did show vascular congestion with fluid in the fissure on the right side. GI Patient has passed bedside swallow and has been put on Diet: Carbohydrate Consistent Low (w/ Renal Modification) Endo #History of DM type II #Refractory hypoglycemia Last time patient was admitted in ICU and had metformin associated lactic acidosis, the plan was at that time to discontinue metformin However looking at her active medication list from SNF, apparently patient was still on metformin which can explain her lactic acidosis In ED patient was given multiple pushes of D50, despite blood sugar remained low, Patient was placed on the D10 W as a result Patient's sugars have been stable last 24 hours, blood sugar checks q4hr. Rx: -PERMANENTLY STOP METFORMIN, MEDICATION IS ABSOLUTELY CONTRAINDICATED IN THIS PATIENT WITH ESRD STATUS ([facility] nurse has been contacted directly and has stated that they have discontinued patient's metformin) -Start insulin sliding scale if glucose exceeds 180 on multiple reads #Hypothyroidism Continue home levothyroxine Renal #ESRD on hemodialysis #High anion gap metabolic acidosis 2/2 severe metformin-induced lactic acidosis #Hyperkalemia in the setting of ESRD Rx: -HD as per Nephrology recommendations -Monitor CMP and other labs after dialysis to evaluate recovery progress -Continue to monitor for hyperkalemia in the setting of ESRD ID #UTI 2/2 ESBL (E.coli) Dx: -UA showed 3+ bacteria but is nitrite negative and without accompanying leukocytosis or fever. Also, her UA from last admission on 05/17 showed similar findings but UCx did not end up growing anything, suggesting that these UA findings may instead be from sterile pyuria and chronic colonization in an ESRD patient who does not have free-flowing urine. -SIRS criteria technically met -History of urine culture growing ESBL -Urine cx Final showed Ecoli -9/30 Blood cx Final 09/02 showed Staph. auricularis (likely contaminant) Rx: -IV meropenem 500 mg qD -Follow up repeat Blood cx's x2 taken 06/02 Hematology #Leukocytosis Likely reactive but currently evaluating for underlying infection #Macrocytic anemia Patient's hgb this morning came back at 7.2 with Repeat H&H 8.0; no signs/symptoms of bleeding, no dizziness, fatigue, chest pain or shortness of breath. -continue to monitor hgb Disposition: Admitted to ICU due to initially requiring pressors in the setting of metformin-induced lactic acidosis; no longer requiring pressors as of now; Lactic Acid down trending; plan to downgrade today DVT prophylaxis: SubQ Heparin q8HR GI prophylaxis: None Diet: Carbohydrate Consistent Low (Renal Modification) Turner: Present Lines: Peripheral IV, Central IV Antibiotics: IV meropenem CODE STATUS: FULL Patient plan of care was discussed with the attending physician, Dr. Ervin & senior resident Dr. Chelo LEGGETT PGY-1
[2025-06-02] MEDS: EPOETIN ALFA-EPBX INJ 10,000 UNIT/ML VIAL (ESRD) 10000 UNIT SC (10:28)
[2025-06-02 10:46] LABS: Hematocrit 25.6 % (36.0-46.0)
[2025-06-02 10:56] LABS: Hemoglobin 8.0 g/dL (12.0-16.0)
--- NOTE | 2025-06-02 11:02 | ESPR_ITS ---
Documentation for date of: 06/02/25 Subjective Subjective Interval history: This is a 64yo F who was DCd from [facility] on 05/25. She was originally admitted on 05/17 for severe acidosis and shock. She was found to have metformin toxicity as well as sepsis. Her acidosis resolved with HD. She was [facility] [place] her on [facility] 1000mg q12 once more. She was there for 5 days and sent to ER for n/v and abd pain. She was found to be hypotensive, acidotic, hypoglycemic and altered. Her LA was 20 and she received several amps of HCO3, D50 and started on levophed. She was dx with metformin toxicity, shock likely distributive with ? of underlying sepsis. This AM she is awake, lethargic but responsive, c/o general malaise. There is minimal UOP, she is ESRD, and she is afebrile. 06/01-no acute overnight events, currently on dialysis, minimal pressor requirements. Awake alert and oriented conversant 06/02- no acute overnight events, off vasopressors, tolerating PO diet, afebrile, on HD today Critical Care Note Critical care time (min.): 0 Exam Vital Signs Temp Pulse Resp BP Pulse Ox O2 Del Method O2 Flow Rate 97.5 F 98 18 101/59 L 98 Room Air 1 06/02/25 10:51 06/02/25 10:45 06/02/25 10:51 06/02/25 10:45 06/02/25 10:51 06/01/25 20:00 06/01/25 06:11 Narrative Exam Gen- NAD, AAOx3, obese HEENT- NC/AT, mucosa hydrated, sclera anicteric Chest- LCTAB, diminished at bases, HRIR, no increase in WOB Abd- s/nt/bs+ Ext- edema 2-3+ pitting b/l LE, pulses palp, L sided weakness, no mottling, no clubbing, spasticity of L side Physical Exam Completion Physical Exam Complete?: Yes Objective - 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 Labs 06/02/25 09:15 06/02/25 04:07 Labs: Laboratory Results - last 24 hr 06/01/25 06/01/25 06/01/25 12:51 16:35 20:04 WBC RBC Hgb Hct MCV MCH MCHC RDW Std Deviation Plt Count Neut % (Auto) Lymph % (Auto) [place] % (Auto) Eos % (Auto) Baso % (Auto) Neut # (Auto) Lymph # (Auto) [place] # (Auto) Eos # (Auto) Baso # (Auto) Immature Gran # (Auto) Absolute Nucleated RBC Immature Gran % Nucleated RBC % Sodium 142 Potassium 3.8 D Chloride 98 Carbon Dioxide 24.0 Anion Gap 20 H BUN 14 Creatinine 1.6 H D Estim Creat Clear Calc 48.5 L eGFR 36 L BUN/Creatinine Ratio 9 L Glucose 94 Calculated Osmolality 283 Lactic Acid 15.0 H* 7.3 H* 7.2 H* Calcium 8.6 Phosphorus Magnesium 06/01/25 06/02/25 06/02/25 22:50 02:38 04:07 WBC 8.6 D RBC 2.14 L Hgb 7.2 L Hct 22.9 L MCV 107 H MCH 33.6 MCHC 31.4 RDW Std Deviation 88.6 H Plt Count 155 D Neut % (Auto) 72 Lymph % (Auto) 19 [place] % (Auto) 8 Eos % (Auto) 1 Baso % (Auto) 0 Neut # (Auto) 6.2 Lymph # (Auto) 1.6 [place] # (Auto) 0.7 Eos # (Auto) 0.0 Baso # (Auto) 0.0 Immature Gran # (Auto) 0.05 H Absolute Nucleated RBC 0.03 H Immature Gran % 1 H Nucleated RBC % 0 Sodium 143 Potassium 3.8 Chloride 101 Carbon Dioxide 27.4 Anion Gap 15 BUN 19 Creatinine 2.1 H D Estim Creat Clear Calc 37.0 L eGFR 26 L BUN/Creatinine Ratio 9 L Glucose 108 H Calculated Osmolality 288 Lactic Acid 8.4 H* 6.8 H* Calcium 8.4 Phosphorus 2.1 L Magnesium 1.8 06/02/25 09:15 WBC RBC Hgb 8.0 L Hct 25.6 L MCV MCH MCHC RDW Std Deviation Plt Count Neut % (Auto) Lymph % (Auto) [place] % (Auto) Eos % (Auto) Baso % (Auto) Neut # (Auto) Lymph # (Auto) [place] # (Auto) Eos # (Auto) Baso # (Auto) Immature Gran # (Auto) Absolute Nucleated RBC Immature Gran % Nucleated RBC % Sodium Potassium Chloride Carbon Dioxide Anion Gap BUN Creatinine Estim Creat Clear Calc eGFR BUN/Creatinine Ratio Glucose Calculated Osmolality Lactic Acid 3.3 H Calcium Phosphorus Magnesium Assessment & Plan Additional Assessment Additional Assessment: In summary this is a 64yo F admitted to the ICU for shock thought to be distributive in nature and secondary to 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 coli -> on meropenem - on midodrine 10mg q6 Heart failure with reduced EF-last echo showed an EF of 20 to 25% on 24 May of this year. There was severe global hypokinesia and the LV was moderately dilated. - not felt to be in active decompensated heart failure at this time - no on BB/ACEI due to hypotension -> will consider resuming once BP more improved A-fib-she -on amiodarone - Resume Eliquis once she is downgraded from the ICU Resp Acute hypoxic respiratory failure- resolved Renal End-stage renal disease on hemodialysis-followed by nephrology Anion gap metabolic acidosis-secondary to elevated lactate and likely due to metformin toxicity. She is undergoing dialysis anticipate improvement. Will repeat labs after dialysis -Bicarb improved -Follow-up on labs postdialysis - today LA down to 3 and doing well Pyuria-originally sterile pyuria was suspected however patient's urine culture has grown greater than 100,000 colonies of gram-negative rods - has had ESBL in the past - resulted out as ESBL E. coli GI Nutrition- started on diet Endo DM- PERMANENTLY STOP METFORMIN - cont SSI Hypothyroid- cont levothyroxine Heme Anemia, macrocytic-appears near baseline - slow drift down - no active bleeding DVT prophylaxis-heparin Leukocytosis-likely reactive in nature however evaluating for any underlying infection at this time - Trending back down ID Sepsis- Ucx grew E. coli - on abx Case discussed with ICU team stable for downgrade Labs, imaging and records reviewed Approximately 36min required for evaluation, exam, review, intervention, discussion and formulation of plan of care Provider Notation Provider Notation: Although this document has been carefully reviewed, there may still be some phonetic and other typographical errors. These errors are purely grammatical due to imperfections in the software program and should not be construed in any way to compromise the substance of the patient's medical care during this visit. Thank you for the opportunity and privilege in assisting you with this patient's care and management.
[2025-06-02] MEDS: HEPARIN SOD INJ 1000 UNIT/ML VIAL 10 ML 3300 UNIT INDWELLCAT (11:09)
[2025-06-02] MEDS: MEROPENEM INJ 500 MG in SODIUM CHLORIDE 0.9% (Popper) 50 ML 100 MG IV (11:21)
[2025-06-02] MEDS: AMIODARONE HCL 200 MG TABLET PO ×2 (11:22→20:24)
--- NOTE | 2025-06-02 11:43 | PC.SS ---
Follow up note: Dialysis today. On IV antibiotic and no pressure source.
[2025-06-02 12:25] LABS: Reflex Lactate? Y
[2025-06-02 12:57] LABS: Lactic Acid, 3 HR 2.7 mMol/L (0.4-2.0)
[2025-06-02 14:23] LABS: Lactate (Lactic Acid) 2.5 mMol/L (0.4-2.0)
--- NOTE | 2025-06-02 14:52 | ESPR_ITS ---
<Statement entered by Lena Barron MD - 06/10/25 08:17> I reviewed above note and agree with findings and plans. I have also personally examined the patient with medicine team and went over assessment and plan with medical team including video intern and resident physician. <Statement entered by Kwadwo Pretty MD - 06/02/25 15:50> ICU downgrade for 64-year-old female past medical history of of CVA with left- sided deficit, HFrEF EF of 20 to 25%, A-fib, diabetes who presented initially with abdominal pain and nausea/vomiting; however, was admitted severe metabolic acidosis secondary to metformin use. Patient seen and assessed and denies have any concerning symptoms at this time. Urine cultures are positive for ESBL E. coli which patient continues to be on IV meropenem and blood cultures were initially positive for Staph auricularis which is believed to be contaminant; moreover, repeat cultures are pending. Patient also has amiodarone for atrial fibrillation and CHF with a EF of 20 to 25% with no GDMT started yet due to hypotension. Will continue monitoring the patient for any acute changes and expect discharge within the next 24 to 48 hours. I have personally seen and examined the patient. I agree with the resident's assessment and plan as documented below. Kwadwo Pretty DO PGY-2 Internal Medicine - GME Documentation for date of: 06/02/25 Subjective Subjective Interval history: Patient seen at bedside. Patient downgraded from ICU today. No complaints of chest pain, shortness of breath, nausea, vomiting. Patient's last BM greater than 24 hours. Patient has good appetite. Exam Vital Signs Temp Pulse Resp BP Pulse Ox O2 Del Method O2 Flow Rate 97.5 F 78 27 H 111/75 95 Room Air 1 06/02/25 10:51 06/02/25 13:25 06/02/25 13:25 06/02/25 11:31 06/02/25 13:25 06/01/25 20:00 06/01/25 06:11 Narrative Exam GEN: No acute distress; A&Ox3, slightly lethargic. Skin: Warm, dry, intact, no obvious rash. HENT: NCAT, NICHOLAS, decreased bilateral eye movement to L (chronic), not icteric. External ears normal. No rhinorrhea. Dry mucous membranes CVS: Regular rate, irregular rhythm, no murmur, +S1/S2. RESP: Clear to auscultation bilaterally GI: Soft, non-tender, non-distended. No guarding or rebound tenderness. EXT: Bilateral pitting LE edema 2/3+; L LE around ankle wound; no cyanosis, no clubbing. Extremity pulses present NEURO: Conversant, moving R-sided extremities with good strength. Left side strength 0/5 (chronic). Sensation intact on R-side, sensation deficits on L- side. Psychiatric: Cooperative, appropriate affect. Objective Labs 06/02/25 09:15 06/02/25 04:07 Labs: Laboratory Results - last 24 hr 06/01/25 06/01/25 06/01/25 16:35 20:04 22:50 WBC RBC Hgb Hct MCV MCH MCHC RDW Std Deviation Plt Count Neut % (Auto) Lymph % (Auto) [place] % (Auto) Eos % (Auto) Baso % (Auto) Neut # (Auto) Lymph # (Auto) [place] # (Auto) Eos # (Auto) Baso # (Auto) Immature Gran # (Auto) Absolute Nucleated RBC Immature Gran % Nucleated RBC % Sodium 142 Potassium 3.8 D Chloride 98 Carbon Dioxide 24.0 Anion Gap 20 H BUN 14 Creatinine 1.6 H D Estim Creat Clear Calc 48.5 L eGFR 36 L BUN/Creatinine Ratio 9 L Glucose 94 Calculated Osmolality 283 Lactic Acid 7.3 H* 7.2 H* 8.4 H* Calcium 8.6 Phosphorus Magnesium 06/02/25 06/02/25 06/02/25 02:38 04:07 09:15 WBC 8.6 D RBC 2.14 L Hgb 7.2 L 8.0 L Hct 22.9 L 25.6 L MCV 107 H MCH 33.6 MCHC 31.4 RDW Std Deviation 88.6 H Plt Count 155 D Neut % (Auto) 72 Lymph % (Auto) 19 [place] % (Auto) 8 Eos % (Auto) 1 Baso % (Auto) 0 Neut # (Auto) 6.2 Lymph # (Auto) 1.6 [place] # (Auto) 0.7 Eos # (Auto) 0.0 Baso # (Auto) 0.0 Immature Gran # (Auto) 0.05 H Absolute Nucleated RBC 0.03 H Immature Gran % 1 H Nucleated RBC % 0 Sodium 143 Potassium 3.8 Chloride 101 Carbon Dioxide 27.4 Anion Gap 15 BUN 19 Creatinine 2.1 H D Estim Creat Clear Calc 37.0 L eGFR 26 L BUN/Creatinine Ratio 9 L Glucose 108 H Calculated Osmolality 288 Lactic Acid 6.8 H* 3.3 H Calcium 8.4 Phosphorus 2.1 L Magnesium 1.8 06/02/25 06/02/25 12:33 14:15 WBC RBC Hgb Hct MCV MCH MCHC RDW Std Deviation Plt Count Neut % (Auto) Lymph % (Auto) [place] % (Auto) Eos % (Auto) Baso % (Auto) Neut # (Auto) Lymph # (Auto) [place] # (Auto) Eos # (Auto) Baso # (Auto) Immature Gran # (Auto) Absolute Nucleated RBC Immature Gran % Nucleated RBC % Sodium Potassium Chloride Carbon Dioxide Anion Gap BUN Creatinine Estim Creat Clear Calc eGFR BUN/Creatinine Ratio Glucose Calculated Osmolality Lactic Acid 2.7 H 2.5 H Calcium Phosphorus Magnesium ABG Interpretation ABG results: 05/31/25 05:04 VBG pH 7.12 L VBG pCO2 20 L VBG pO2 63 H VBG Base Excess -21 L Quality Measures Quality Measures VTE prophylaxis Assessment & Plan Assessment Current Active Medications: Generic Name Dose Route Start Last Admin Trade Name Freq PRN Reason Stop Dose Admin Acetaminophen 650 mg 05/31/25 04:25 Acetaminophen 325 Mg Tablet PO 06/30/25 04:24 Q6H PRN Fever >101.5 Hydrocodone Bitart/Acetaminophen 1 tab 05/31/25 18:32 05/31/25 20:13 Hydrocodone/Apap 5/325 Tablet PO 06/05/25 18:31 1 tab Q8HR PRN Administration Pain 4-10 Amiodarone HCl 200 mg 05/31/25 21:00 06/02/25 11:22 Amiodarone Hcl 200 Mg Tablet PO 06/30/25 20:59 200 mg BID RIANNA Administration Dextrose 25 ml 05/31/25 04:28 Dextrose 50%-Water Inj 50 Ml Syringe IV 06/30/25 04:27 Q15MIN PRN BG 50-70 responsive npo pt Dextrose 50 ml 05/31/25 04:28 05/31/25 19:52 Dextrose 50%-Water Inj 50 Ml Syringe IV 06/30/25 04:27 50 ml Q15MIN PRN Administration BG <50 OR BG <70 & pt unresponsive Divalproex Sodium 250 mg 05/31/25 22:00 06/02/25 14:37 Divalproex Sod 125 Mg Sprinkle PO 06/30/25 21:59 250 mg TID RIANNA Administration Epoetin Jemal 10,000 unit 06/02/25 09:00 06/02/25 10:28 Epoetin Jemal-Epbx Inj 10,000 Unit/Ml Vial (Esrd) SC 07/02/25 08:59 10,000 unit 2 X WEEKLY RIANNA Administration Glucagon 1 mg 05/31/25 04:28 Glucagon Inj 1 Mg Vial IM Q15MIN PRN BG <70, and no IV access Heparin Sodium (Porcine) 5,000 unit 05/31/25 21:00 06/02/25 14:37 Heparin Sod Inj 5000 Unit/Ml Vial SC 06/14/25 20:59 5,000 unit Q8HR RIANNA Administration Heparin Sodium (Porcine) 3,300 unit 06/02/25 08:06 06/02/25 11:09 Heparin Sod Inj 1000 Unit/Ml Vial 10 Ml INDWELLCAT 06/16/25 08:05 3,300 unit X1 PRN Administration DIALYSIS Meropenem 500 mg/ Sodium 50 mls @ 100 mls/hr 06/01/25 09:00 06/02/25 11:21 Chloride IV 06/07/25 05:59 100 mls/hr QDAY RIANNA Administration Protocol Dextrose 500 mls @ 50 mls/hr 05/31/25 05:00 05/31/25 05:44 D10w IV 0 mls/hr On Hold: 05/31/25 06:44 .Q10H RIANNA Infusion Albumin Human 25 gm in 100 mls @ 100 mls/min 05/31/25 06:45 06/01/25 13:35 Albuminex 25% Ivpb IV Infused PRN PRN Infusion DIALYSIS Norepinephrine/Dextrose 8 mg in 250 mls @ 9.731 mls/hr 06/01/25 08:09 Levophed In D5w 8mg/250ml IV 06/30/25 04:39 .Q24H PRN PER PROTOCOL Protocol 0.05 MCG/KG/MIN Levothyroxine Sodium 50 mcg 06/01/25 06:00 06/02/25 06:11 Levothyroxine Sodium 25 Mcg Tablet PO 07/01/25 05:59 50 mcg ACBR RIANNA Administration Midodrine 10 mg 06/02/25 00:00 06/02/25 11:23 Midodrine 5 Mg Tablet PO 07/02/25 00:00 10 mg Q6HR RIANNA Administration Ondansetron HCl 4 mg 05/31/25 04:25 06/01/25 09:01 Ondansetron Inj 2 Mg/Ml Inj 2 Ml IVP 06/30/25 04:24 4 mg Q6H PRN Administration NAUSEA OR VOMITING Protocol Ropinirole HCl 1 mg 06/01/25 09:00 06/02/25 09:11 Ropinirole Hcl 1 Mg Tablet PO 07/01/25 08:59 1 mg QDAY RIANNA Administration Plan 64-year-old female PHx CVA with residual left-sided weakness, A-fib on amiodarone and Eliquis, HFrEF with 15-20%, ESRD on dialysis (Friday//Friday) follows Dr. Landry, and hx staghorn calculi, presented 05/31 for abdominal pain, nausea, and vomiting. Patient was admitted to ICU for distributive shock 2/2 severe metformin-induced lactic acidosis w/ possible septic component. Patient downgraded to floor today to manage ongoing issues. #UTI 2/2 ESBL (E.coli) #Distributive shock, resolved Urine cx 05/31 showed Ecoli with >100k colonies/ml (patient has a history of ESBL) Blood cx 05/31 09/02 showed Staph. auricularis (likely contaminant), repeat taken 06/02 Rx: -Follow up repeat Blood Cx taken 06/02 -Continue IV meropenem 50mg daily #HFrEF 15 to 20% (04/2025) #Dilated cardiomyopathy Patient recently discharged from the hospital with plan of optimized GDMT (only currently prescribed B-galina; no TETE inhibitor, MRA or SGLT2 known to be prescribed - due to ESRD on dialysis) Labs revealed elevated BNP 2757 - Strict I&O's - Daily weight - Fluid status management with hemodialysis - Currently holding metoprolol in the setting of shock, may consider resuming if BP allows. #ESRD on hemodialysis T/T/F #High anion gap metabolic acidosis 2/2 severe metformin-induced lactic acidosis, resolved Creatinine 2.1 (baseline around 1.0) Rx: -HD as per Nephrology recommendations, Dr Gris ?Monitor renal panel with a.m. labs ?Avoid nephrotoxic drugs ?Renally dose medications #History of A-fib [id number] Home medication is amiodarone 200 mg twice daily and Eliquis 5 mg twice daily - Resume home PO amiodarone - Restarted Eliquis 5 mg p.o. twice daily -Telemetry monitoring #History of DM type II Last A1c 5.0 (05/18/2025) Plan: -PERMANENTLY STOP METFORMIN, MEDICATION IS ABSOLUTELY CONTRAINDICATED IN THIS PATIENT WITH ESRD STATUS ([facility] nurse has been contacted directly and has stated that they have discontinued patient's metformin) -Start insulin sliding scale if glucose exceeds 180 on multiple reads -Glucose checks #History of hypothyroidism Continue home levothyroxine #History of CVA w/ residual left-sided weakness Stable Rx: - Lipid panel ordered for a.m. #Macrocytic anemia Hgb 8.0 No signs/symptoms of bleeding, no dizziness, fatigue, chest pain or shortness of breath Plan - Monitor hemoglobin with a.m. labs Health Maintenance: Disposition: Telemetry DVT prophylaxis: Apixaban 5 mg twice daily GI prophylaxis: None Diet: Carbohydrate Consistent Low (Renal Modification) Antibiotics: IV meropenem CODE STATUS: FULL Case discussed with my attending Dr. Barron, and senior resident, Dr. Sukhwinder Urias MD PGY-1
[2025-06-02 17:23] LABS: Reflex Lactate? Y
[2025-06-02 18:10] LABS: Lactic Acid, 3 HR 2.9 mMol/L (0.4-2.0)
[2025-06-02] MEDS: APIXABAN 2.5 MG TABLET 5 MG PO (20:24)
[2025-06-02] MEDS: ONDANSETRON INJ 2 MG/ML INJ 2 ML 4 MG IVP (23:38)
--- NOTE | 2025-06-02 23:47 | ESPR_ITS ---
RE: RUBÉN VIVAR : 1960 DATE OF SERVICE: 06/02/2025 HISTORY OF PRESENT ILLNESS: Briefly, she is a 64-year-old woman with past medical history significant for CVA, atrial fibrillation, heart failure with reduced ejection fraction of 15%-20% with moderate pulmonary hypertension and severe global hypokinesis, and ESRD, on dialysis since 04/30/2025, dialyzing at [facility] every Friday, and Friday. She presented to emergency room on 05/31/2025 with abdominal pain, nausea and vomiting. The patient's lactic acid was found elevated again at more than 20 and we found out that the patient's nurse continues to give her metformin. The patient may have also a UTI and for that, she was started on IV antibiotics. The patient is doing a little bit better. PHYSICAL EXAMINATION: Vital Signs: Blood pressure of 94/50. HEENT: Anicteric sclerae. Normocephalic. Neck: Supple. JVD. Chest and Lungs: Symmetric expansion. Clear breath sounds. Cardiac: Without murmur. Abdomen: Soft and nontender. Extremities: 2+ bilateral pitting edema. LABORATORY DATA: Hemoglobin 7.2, WBC 8600, and platelet count 107,000. Sodium 142, potassium 3.8, chloride 101, CO2 is 27.4, BUN 25.1, lactic acid now 6.3, and creatinine 2.1. ASSESSMENT: 1. End-stage renal disease. 2. Heart failure with reduced ejection fraction of 15%-20% with severe global hypokinesis. 3. Lactic acidosis secondary to poor organ perfusion and continuous metformin intake. 4. Hypertension. 5. History of cerebrovascular accident. 6. Anemia of coronary artery disease. 7. Atrial fibrillation, on amiodarone. PLAN: The patient will be dialyzed on a daily basis until we get her euvolemic. The next dialysis will be tomorrow and we will try to remove as much as we can and we will do sequential only. DT: 23:03:37 TT: 23:45:00 Ref: [id number] - TID: [id number]
[2025-06-03] VITALS (29 sets, daily range): BP systolic 83–135; BP diastolic 26–111; PULSE 52–105; RESP 14–24; TEMP 36.1–36.8; O2SAT 93–100; BMI 29.0
[2025-06-03] MEDS: DIVALPROEX SOD 125 MG SPRINKLE 250 MG PO ×3 (05:12→21:07)
[2025-06-03] MEDS: LEVOTHYROXINE SODIUM 25 MCG TABLET 50 MCG PO (05:13)
[2025-06-03] MEDS: MIDODRINE 5 MG TABLET 10 MG PO ×3 (05:13→17:51)
[2025-06-03 05:50] LABS: Basophils # (Auto) 0.1 Thou/mm3 (0.0-0.2); Basophils % (Auto) 1 % (0-2.5); Eosinophils # (Auto) 0.1 Thou/mm3 (0.0-0.5); Eosinophils % (Auto) 1 % (0-10); Hematocrit 27.7 % (36.0-46.0); Hemoglobin 8.6 g/dL (12.0-16.0); Immature Granulocytes Auto 0.04 Thou/mm3 (0.00-0.00); Lymphocytes # (Auto) 2.5 Thou/mm3 (1.0-4.8); Lymphocytes % (Auto) 28 % (10-50); Mean Corpuscular HGB Conc 31.0 g/dl (31.0-37.0); Mean Corpuscular Hemoglobin 33.5 pg (25.0-35.0); Mean Corpuscular Volume 108 fL (80-100); Monocytes # (Auto) 0.8 Thou/mm3 (0.0-0.8); Monocytes % (Auto) 9 % (0-12); Neutrophils # (Auto) 5.4 Thou/mm3 (1.8-7.7); Neutrophils % (Auto) 61 % (37-80); Nucleated Red Blood Cell # 0.02 Thou/mm3 (0.00-0.00); Nucleated Red Blood Cell % 0 /100 WBC (0); Platelet Count 184 Thou/mm3 (140-440); RDW Standard Deviation 91.2 fL (36.4-46.3); Red Blood Count 2.57 Miln/mm3 (4.00-5.20); White Blood Count 8.8 Thou/mm3 (3.6-11.0)
[2025-06-03 06:13] LABS: Alanine Aminotransferase 8 U/L (10-49); Albumin, Serum 3.2 gm/dL (3.4-4.8); Albumin/Globulin Ratio 1.7 (1.2-2.2); Alkaline Phosphatase 88 U/L (46-116); Anion Gap 12 (7-16); Aspartate Amino Transferase 18 U/L (0-34); BUN/Creatinine Ratio 9 Ratio (12-20); Bilirubin,Total 0.7 mg/dL (0.3-1.2); Blood Urea Nitrogen 17 mg/dL (9-23); Calcium 8.8 mg/dL (8.3-10.6); Calcium (Corrected) 9.4 mg/dL (8.5-10.1); Carbon Dioxide 29.2 mMol/L (20.0-31.0); Cardiac Risk Estimate 2.7 RATIO (3.7-5.6); Chloride 101 mMol/L (98-107); Cholesterol 98 mg/dL (132-200); Creatinine (Component) 2.0 mg/dL (0.6-1.3); Estimated Creatinine Clearance 37.6 mL/min (>60); Globulin 1.9 gm/dL (2.3-3.5); Glucose 105 mg/dL (74-106); HDL Cholesterol 36 mg/dL (40-60); LDL Cholesterol,Calculated 32 mg/dL (0-130); Magnesium 2.0 mg/dL (1.6-2.6); Osmolality,Calculated 284 (275-295); Phosphorous 1.5 mg/dL (2.4-5.1); Potassium 3.8 mMol/L (3.4-5.1); Sodium 142 mMol/L (136-145); Total Protein 5.1 gm/dL (5.7-8.2); Triglycerides 149 mg/dL (30-150); eGFR 28 See Note
--- NOTE | 2025-06-03 10:54 | PC.SS ---
SS follow up note; Patient is pending blood cultures. On IV ABX. Patient will discharge back to [facility] when medically cleared.
[2025-06-03 12:04] LABS: Lactate (Lactic Acid) 2.0 mMol/L (0.4-2.0)
--- NOTE | 2025-06-03 13:59 | PC.PT ---
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 PT confirmed with SS that patient would not need a new PT eval as she is a long-term resident. PT spoke with Dr. Pretty and confirmed it is okay to cancel PT eval at this time as she does not need an eval to return to SNF. Will cancel PT eval at this time.
--- NOTE | 2025-06-03 14:00 | ESPR_ITS ---
<Statement entered by Lena Barron MD - 06/10/25 08:18> I reviewed above note and agree with findings and plans. I have also personally examined the patient with medicine team and went over assessment and plan with medical team including sports internship and resident physician. <Statement entered by Kwadwo Pretty MD - 06/03/25 17:24> Patient seen and assessed in hospital bed denies having any concerning symptoms at this time. Patient's lactic acid is downtrending; moreover, will discontinue left subclavian line. Patient's blood cultures currently did not show any growth over 24 hours; however, will await for 48 hours prior to discharging. Patient's blood pressure after dialysis were on the softer side systolic 80/diastolic in the 60s; moreover, we will continue midodrine and possibly increase dose if necessary. Patient continues to be on IV antibiotics for ESBL E. coli. Will hold off on GDMT for the patient's HFrEF with severe systolic dysfunction and recommend patient to follow-up with cardiology once discharged. I have personally seen and examined the patient. I agree with the resident's assessment and plan as documented below. Kwadwo Pretty DO PGY-2 Internal Medicine - [facility] Documentation for date of: 06/03/25 Subjective Subjective Interval history: No Overnight events. Labs reviewed and patient examined at the the dialysis. Patient received her scheduled hemodialysis today. Patient is current lactic acid after dialysis is 2.0. Currently, repeat blood culture shows no growth after 24 hours 2/2. Last blood culture showed Staphylococcus auricularis which was suspected to be contaminated. Patient continues to be hypotensive with BP 96/60. Patient would need to follow-up with PCP for the management of GDMT. If the repeat blood culture shows negative the patient will be likely to get discharged within 24 to 48 hours. Denies chest pain, palpation, SOB, abdominal pain, N/V, fevers or chills. Exam Vital Signs Temp Pulse Resp BP Pulse Ox O2 Del Method O2 Flow Rate 97.0 F 95 22 H 96/60 100 Room Air 1 06/03/25 09:01 06/03/25 11:42 06/03/25 09:01 06/03/25 11:42 06/03/25 09:01 06/03/25 09:01 06/01/25 06:11 Narrative Exam General: No acute distress, well nourished, AAO x3 Eye: normal conjunctiva, no scleral icterus HENT: Normocephalic, atraumatic, hearing intact to conversation at normal volume, moist oral mucosa Neck: Supple, non-tender, no JVD, no lymphadenopathy Lungs: Non-labored respirations, symmetric chest rise, Clear to auscultate bilaterally, No wheezing, rhonchi, crackles Heart: Peripheral pulses intact bilaterally, Regular Rate and Rhythm. Abdomen: Soft, non-tender, non-distended, no palpable masses Musculoskeletal: +2 pitting edema BLE, Ankle wound on left Leg, +1/5 muscle strength on left leg. Skin: Skin is warm, dry, no rashes or lesions. Psychiatric: Cooperative, appropriate mood and affect, Awake and alert, not agitated Neuro: Cranial nerves II-XII grossly intact. +1/5 muscle strength on left leg with sensory deficit. +5/5 muscle strength on right leg. Objective Labs 06/03/25 04:55 06/03/25 04:55 Labs: Laboratory Results - last 24 hr 06/02/25 06/02/25 06/03/25 14:15 18:00 04:55 WBC 8.8 RBC 2.57 L Hgb 8.6 L Hct 27.7 L MCV 108 H MCH 33.5 MCHC 31.0 RDW Std Deviation 91.2 H Plt Count 184 Neut % (Auto) 61 Lymph % (Auto) 28 [place] % (Auto) 9 Eos % (Auto) 1 Baso % (Auto) 1 Neut # (Auto) 5.4 Lymph # (Auto) 2.5 [place] # (Auto) 0.8 Eos # (Auto) 0.1 Baso # (Auto) 0.1 Immature Gran # (Auto) 0.04 H Absolute Nucleated RBC 0.02 H Immature Gran % 1 H Nucleated RBC % 0 Sodium 142 Potassium 3.8 Chloride 101 Carbon Dioxide 29.2 Anion Gap 12 BUN 17 Creatinine 2.0 H Estim Creat Clear Calc 37.6 L eGFR 28 L BUN/Creatinine Ratio 9 L Glucose 105 Calculated Osmolality 284 Lactic Acid 2.5 H 2.9 H Calcium 8.8 Corrected Calcium 9.4 Phosphorus 1.5 L Magnesium 2.0 Total Bilirubin 0.7 AST 18 ALT 8 L Alkaline Phosphatase 88 Total Protein 5.1 L Albumin 3.2 L Globulin 1.9 L Albumin/Globulin Ratio 1.7 Triglycerides 149 Cholesterol 98 L LDL Cholesterol, Calc 32 HDL Cholesterol 36 L Cholesterol/HDL Ratio 2.7 L 06/03/25 11:53 WBC RBC Hgb Hct MCV MCH MCHC RDW Std Deviation Plt Count Neut % (Auto) Lymph % (Auto) [place] % (Auto) Eos % (Auto) Baso % (Auto) Neut # (Auto) Lymph # (Auto) [place] # (Auto) Eos # (Auto) Baso # (Auto) Immature Gran # (Auto) Absolute Nucleated RBC Immature Gran % Nucleated RBC % Sodium Potassium Chloride Carbon Dioxide Anion Gap BUN Creatinine Estim Creat Clear Calc eGFR BUN/Creatinine Ratio Glucose Calculated Osmolality Lactic Acid 2.0 Calcium Corrected Calcium Phosphorus Magnesium Total Bilirubin AST ALT Alkaline Phosphatase Total Protein Albumin Globulin Albumin/Globulin Ratio Triglycerides Cholesterol LDL Cholesterol, Calc HDL Cholesterol Cholesterol/HDL Ratio ABG Interpretation ABG results: 05/31/25 05:04 VBG pH 7.12 L VBG pCO2 20 L VBG pO2 63 H VBG Base Excess -21 L Quality Measures Quality Measures VTE prophylaxis Assessment & Plan Assessment Current Active Medications: Generic Name Dose Route Start Last Admin Trade Name Freq PRN Reason Stop Dose Admin Acetaminophen 650 mg 05/31/25 04:25 Acetaminophen 325 Mg Tablet PO 06/30/25 04:24 Q6H PRN Fever >101.5 Hydrocodone Bitart/Acetaminophen 1 tab 05/31/25 18:32 05/31/25 20:13 Hydrocodone/Apap 5/325 Tablet PO 06/05/25 18:31 1 tab Q8HR PRN Administration Pain 4-10 Amiodarone HCl 200 mg 05/31/25 21:00 06/03/25 09:48 Amiodarone Hcl 200 Mg Tablet PO 06/30/25 20:59 Not Given BID RIANNA Apixaban 5 mg 06/02/25 21:00 06/03/25 09:48 Apixaban 2.5 Mg Tablet PO 07/02/25 20:59 Not Given BID RIANNA Dextrose 25 ml 05/31/25 04:28 Dextrose 50%-Water Inj 50 Ml Syringe IV 06/30/25 04:27 Q15MIN PRN BG 50-70 responsive npo pt Dextrose 50 ml 05/31/25 04:28 05/31/25 19:52 Dextrose 50%-Water Inj 50 Ml Syringe IV 06/30/25 04:27 50 ml Q15MIN PRN Administration BG <50 OR BG <70 & pt unresponsive Divalproex Sodium 250 mg 05/31/25 22:00 06/03/25 05:12 Divalproex Sod 125 Mg Sprinkle PO 06/30/25 21:59 250 mg TID RIANNA Administration Epoetin Jemal 10,000 unit 06/02/25 09:00 06/02/25 10:28 Epoetin Jemal-Epbx Inj 10,000 Unit/Ml Vial (Esrd) SC 07/02/25 08:59 10,000 unit 2 X WEEKLY RIANNA Administration Glucagon 1 mg 05/31/25 04:28 Glucagon Inj 1 Mg Vial IM Q15MIN PRN BG <70, and no IV access Heparin Sodium (Porcine) 3,300 unit 06/02/25 08:06 06/02/25 11:09 Heparin Sod Inj 1000 Unit/Ml Vial 10 Ml INDWELLCAT 06/16/25 08:05 3,300 unit X1 PRN Administration DIALYSIS Meropenem 500 mg/ Sodium 50 mls @ 100 mls/hr 06/01/25 09:00 06/03/25 10:00 Chloride IV 06/07/25 05:59 Not Given QDAY RIANNA Protocol Albumin Human 25 gm in 100 mls @ 100 mls/min 05/31/25 06:45 06/01/25 13:35 Albuminex 25% Ivpb IV Infused PRN PRN Infusion DIALYSIS Levothyroxine Sodium 50 mcg 06/01/25 06:00 06/03/25 05:13 Levothyroxine Sodium 25 Mcg Tablet PO 07/01/25 05:59 50 mcg ACBR RIANNA Administration Midodrine 10 mg 06/02/25 00:00 06/03/25 11:42 Midodrine 5 Mg Tablet PO 07/02/25 00:00 10 mg Q6HR RIANNA Administration Ondansetron HCl 4 mg 05/31/25 04:25 06/02/25 23:38 Ondansetron Inj 2 Mg/Ml Inj 2 Ml IVP 06/30/25 04:24 4 mg Q6H PRN Administration NAUSEA OR VOMITING Protocol Ropinirole HCl 1 mg 06/01/25 09:00 06/03/25 10:00 Ropinirole Hcl 1 Mg Tablet PO 07/01/25 08:59 Not Given QDAY RIANNA Plan 64-year-old female PHx CVA with residual left-sided weakness, A-fib on amiodarone and Eliquis, HFrEF with 15-20%, ESRD on dialysis (Friday//Friday) follows Dr. Landry, and hx staghorn calculi, presented 05/31 for abdominal pain, nausea, and vomiting. Patient was admitted to ICU for distributive shock 2/2 severe metformin-induced lactic acidosis w/ possible septic component. Patient downgraded to floor today to manage ongoing issues. #Metabolic Encephalopathy - Resolved #2/2 Distributive Shock - Resolved #2/2 Metformin induced Lactic acidosis - Resolving #VS UTI -Admission LA 22.0 w/ confirmation that patient has been continuing to receive metformin at her SNF -Pre-PLR and Post-PLR NICOM suggestive of distributive shock etiology -UA showed 3+ bacteria but is nitrite negative and without accompanying leukocytosis or fever. Also, her UA from last admission on 05/17 showed similar findings but UCx did not end up growing anything, suggesting that these UA findings may instead be from sterile pyuria and chronic colonization in an ESRD patient who does not have free-flowing urine. -Last echo from a month ago revealed EF of 15 to 20% but did not appear to be hypervolemic at ICU (decompensated CHF exacerbation less likely) -Urine cx Final showed Ecoli with >100k colonies/ml (patient has a history of ESBL) -05/31 Blood cx Final 1/2 showed Staph. auricularis (likely contaminant) -Blood cx (06/02/2025): 2/2 showed no growth within 24 hours. Plan: -Patient received Hemodialysis today per schedule -Continue midodrine 10 mg po qid -Continue IV meropenem #UTI 2/2 E.coli #Hx of sepsis 2/2 UTI 2/2 E.coli (04/30/2025) -UA showed 3+ bacteria but is nitrite negative and without accompanying leukocytosis or fever. Also, her UA from last admission on 05/17 showed similar findings but UCx did not end up growing anything, suggesting that these UA findings may instead be from sterile pyuria and chronic colonization in an ESRD patient who does not have free-flowing urine. -Previous admission on 04/30/2025 due to sepsis secondary to UTI secondary to E.coli. -Past Urine Cx (04/30/2025): E. coli -Urine Cx (05/31/2025): E. coli -Unlikely to be contributory to current trigger of metabolic encephalopathy, as patient's UTI appears to be chronic. Plan: -IV meropenem 500 mg qD. Will stop when repeat Blood Cx is negative for 48hrs -Will continue to monitor patient's electolytes #ESRD on hemodialysis T/T/F #High anion gap metabolic acidosis 2/2 severe metformin-induced lactic acidosis, resolved Creatinine 2.1 (baseline around 1.0) Plan: -Patient received hemodialysis today. -HD as per Nephrology recommendations, Dr Landry ?Monitor renal panel with a.m. labs ?Avoid nephrotoxic drugs ?Renally dose medications #HFrEF 15 to 20% (04/2025) #Dilated cardiomyopathy Patient recently discharged from the hospital with plan of optimized GDMT (only currently prescribed B-galina; no TETE inhibitor, MRA or SGLT2 known to be prescribed - due to ESRD on dialysis) Labs revealed elevated BNP 2757 - Strict I&O's - Daily weight - Fluid status management with hemodialysis - Currently holding metoprolol in the setting of shock, may consider resuming if BP allows. #History of A-fib [id number] Home medication is amiodarone 200 mg twice daily and Eliquis 5 mg twice daily - Resume home PO amiodarone - Restarted Eliquis 5 mg p.o. twice daily -Telemetry monitoring #History of DM type II Last A1c 5.0 (05/18/2025) Plan: -PERMANENTLY STOP METFORMIN, MEDICATION IS ABSOLUTELY CONTRAINDICATED IN THIS PATIENT WITH ESRD STATUS [facility] and has stated that they have discontinued patient's metformin) -Start insulin sliding scale if glucose exceeds 180 on multiple reads -Glucose checks #History of hypothyroidism Continue home levothyroxine #History of CVA w/ residual left-sided weakness Stable Rx: - Lipid panel ordered for a.m. #Macrocytic anemia Hgb 8.8 No signs/symptoms of bleeding, no dizziness, fatigue, chest pain or shortness of breath Plan - Monitor hemoglobin with a.m. labs Assessment and plan discussed with my attending physician Dr. Barron and Dr. Sukhwinder Call (PGY-1) - Internal medicine resident
[2025-06-03] MEDS: MIDODRINE 5 MG TABLET PO (16:09)
[2025-06-03] MEDS: AMIODARONE HCL 200 MG TABLET PO (21:07)
[2025-06-03] MEDS: APIXABAN 2.5 MG TABLET 5 MG PO (21:07)
[2025-06-04] VITALS (16 sets, daily range): BP systolic 69–104; BP diastolic 45–72; PULSE 72–102; RESP 17–23; TEMP 36.1–36.5; O2SAT 94–99; BMI 29.0
[2025-06-04] MEDS: MIDODRINE 5 MG TABLET 10 MG PO ×4 (00:07→17:50)
[2025-06-04] MEDS: DIVALPROEX SOD 125 MG SPRINKLE 250 MG PO ×3 (05:21→21:57)
[2025-06-04] MEDS: ACETAMINOPHEN 325 MG TABLET 650 MG PO (05:21)
[2025-06-04] MEDS: LEVOTHYROXINE SODIUM 25 MCG TABLET 50 MCG PO (05:22)
[2025-06-04 07:59] LABS: Basophils # (Auto) 0.0 Thou/mm3 (0.0-0.2); Basophils % (Auto) 1 % (0-2.5); Eosinophils # (Auto) 0.1 Thou/mm3 (0.0-0.5); Eosinophils % (Auto) 1 % (0-10); Hematocrit 28.3 % (36.0-46.0); Immature Granulocytes Auto 0.05 Thou/mm3 (0.00-0.00); Lymphocytes # (Auto) 2.3 Thou/mm3 (1.0-4.8); Lymphocytes % (Auto) 27 % (10-50); Mean Corpuscular HGB Conc 30.7 g/dl (31.0-37.0); Mean Corpuscular Hemoglobin 33.1 pg (25.0-35.0); Mean Corpuscular Volume 108 fL (80-100); Monocytes # (Auto) 0.6 Thou/mm3 (0.0-0.8); Monocytes % (Auto) 8 % (0-12); Neutrophils # (Auto) 5.4 Thou/mm3 (1.8-7.7); Neutrophils % (Auto) 64 % (37-80); Nucleated Red Blood Cell # 0.02 Thou/mm3 (0.00-0.00); Nucleated Red Blood Cell % 0 /100 WBC (0); Platelet Count 173 Thou/mm3 (140-440); RDW Standard Deviation 87.9 fL (36.4-46.3); Red Blood Count 2.63 Miln/mm3 (4.00-5.20); White Blood Count 8.4 Thou/mm3 (3.6-11.0)
[2025-06-04 08:06] LABS: Hemoglobin 8.7 g/dL (12.0-16.0)
[2025-06-04 08:16] LABS: Albumin, Serum 3.1 gm/dL (3.4-4.8); Albumin/Globulin Ratio 1.5 (1.2-2.2); Alkaline Phosphatase 91 U/L (46-116); Anion Gap 10 (7-16); Aspartate Amino Transferase 13 U/L (0-34); BUN/Creatinine Ratio 10 Ratio (12-20); Bilirubin,Total 0.7 mg/dL (0.3-1.2); Blood Urea Nitrogen 26 mg/dL (9-23); Calcium 8.4 mg/dL (8.3-10.6); Calcium (Corrected) 9.1 mg/dL (8.5-10.1); Carbon Dioxide 28.8 mMol/L (20.0-31.0); Chloride 100 mMol/L (98-107); Creatinine (Component) 2.6 mg/dL (0.6-1.3); Estimated Creatinine Clearance 28.9 mL/min (>60); Globulin 2.1 gm/dL (2.3-3.5); Glucose 110 mg/dL (74-106); Magnesium 2.1 mg/dL (1.6-2.6); Osmolality,Calculated 283 (275-295); Potassium 3.8 mMol/L (3.4-5.1); Sodium 139 mMol/L (136-145); Total Protein 5.2 gm/dL (5.7-8.2); eGFR 20 See Note
--- NOTE | 2025-06-04 08:21 | PC.NURSE ---
at bedside for rounds this morning. Discussed getting discharged today. Patient is now on her way to dialysis.
[2025-06-04 08:25] LABS: Alanine Aminotransferase < 7 U/L (10-49)
[2025-06-04] MEDS: MIDODRINE 5 MG TABLET PO ×2 (09:06→09:07)
[2025-06-04] MEDS: ALBUMIN HUMAN-KJDA 25% IVPB 25 GM/100 ML BTL IV (09:07)
--- NOTE | 2025-06-04 09:08 | EVENTNT_ITS ---
Documentation for date of: 06/04/25 Event Note Event Note: Rapid response called at around 8:50 AM on 06/04/2025 for patient Hollie Whaley for MAP<60. Patient was scheduled for hemodialysis session today but canceled due to low blood pressure. On arrival, patient was comfortably lying on bed. Was alert and oriented x 3, and was not exhibiting any signs of hypoperfusion. Patient denied any signs of shortness of breath, chest pain palpitations, nausea, vomiting. Patient was given midodrine 10 mg p.o. x 1, albumin 25 g IV x 1. Patient was transferred to [facility] bed for close monitoring.
--- NOTE | 2025-06-04 09:57 | PC.NURSE ---
Called doctor at [phone] regarding patient meds d/t patient having a rapid called. Doctor said to take all meds except bp meds. Last bp at 48 was 85/64 and HR 99.
[2025-06-04] MEDS: MEROPENEM INJ 500 MG in SODIUM CHLORIDE 0.9% (Popper) 50 ML 100 MG IV (10:02)
[2025-06-04] MEDS: APIXABAN 2.5 MG TABLET 5 MG PO ×2 (10:02→21:57)
--- NOTE | 2025-06-04 10:02 | PC.NURSE ---
This nurse called Anika, RN twice, second time being at 1000 to give report for transfer. Anika stated she was in the middle of med pass and inserting an IV and will return my call when she's ready.
--- NOTE | 2025-06-04 11:52 | ESPR_ITS ---
<Statement entered by Flores Barakat MD - 06/04/25 12:10> Patient was seen and examined at bedside. No acute overnight events. CBC CMP within normal limits. Blood cultures negative in 24 hours. Patient was scheduled to had hemodialysis today, however MAP was below 60, rapid response was called, patient was comfortably sitting in bed. No signs or symptoms of hypoperfusion. Lactic acid is going down. Patient was given midodrine, currently is on scheduled scheduled midodrine. Continue current management. Monitor hemodynamics, continue hemodialysis session while in the hospital. Await negative blood cultures for 48 hours. Anticipate discharge in next 24 to 48 hours. I personally saw and examined the patient and discussed the assessment and plan with the entire medicine team, including my attending Flores Li M.D. PGY-3 Disclaimer: Despite multiple revisions, due to the dictation software being used, the document bellow may not be free of grammatical errors including phonetic/typographic errors. However, this does not deter from our commitment to providing health care in the patient's best interest in mind. Documentation for date of: 06/04/25 Subjective Subjective Interval history: No Overnight events. Labs reviewed and patient examined at the bedside. Patient had rapid response called at around 8:50 AM on 06/04/2025 for MAP<60. Patient was scheduled for hemodialysis session today but canceled due to low blood pressure. On arrival, patient was comfortably lying on bed. Was alert and oriented x 3, and was not exhibiting any signs of hypoperfusion. Patient denied any signs of shortness of breath, chest pain palpitations, nausea, vomiting. Patient was given midodrine 10 mg p.o. x 1, albumin 25 g IV x 1. Patient was transferred to [facility] for close monitoring. We will monitor patient's blood pressure today and decide on whether patient will be able to tolerate receiving hemodialysis today. Patient is blood culture showed no growth after 48 hours x 2. Exam Vital Signs Temp Pulse Resp BP Pulse Ox O2 Del Method O2 Flow Rate 97.0 F 95 18 97/67 98 Room Air 1 06/04/25 07:30 06/04/25 10:03 06/04/25 07:30 06/04/25 10:03 06/04/25 07:30 06/04/25 07:30 06/01/25 06:11 Narrative Exam General: No acute distress, well nourished, AAO x3 Eye: normal conjunctiva, no scleral icterus HENT: Normocephalic, atraumatic, hearing intact to conversation at normal volume, moist oral mucosa Neck: Supple, non-tender, no JVD, no lymphadenopathy Lungs: Non-labored respirations, symmetric chest rise, Clear to auscultate bilaterally, No wheezing, rhonchi, crackles Heart: Peripheral pulses intact bilaterally, Regular Rate and Rhythm. Abdomen: Soft, non-tender, non-distended, no palpable masses Musculoskeletal: +2 pitting edema BLE, Ankle wound on left Leg, +1/5 muscle strength on left leg. Skin: Skin is warm, dry, no rashes or lesions. Psychiatric: Cooperative, appropriate mood and affect, Awake and alert, not agitated Neuro: Cranial nerves II-XII grossly intact. +1/5 muscle strength on left leg with sensory deficit. +5/5 muscle strength on right leg. Objective Labs 06/04/25 07:09 06/04/25 07:09 Labs: Laboratory Results - last 24 hr 06/03/25 06/04/25 11:53 07:09 WBC 8.4 RBC 2.63 L Hgb 8.7 L Hct 28.3 L MCV 108 H MCH 33.1 MCHC 30.7 L RDW Std Deviation 87.9 H Plt Count 173 Neut % (Auto) 64 Lymph % (Auto) 27 [place] % (Auto) 8 Eos % (Auto) 1 Baso % (Auto) 1 Neut # (Auto) 5.4 Lymph # (Auto) 2.3 [place] # (Auto) 0.6 Eos # (Auto) 0.1 Baso # (Auto) 0.0 Immature Gran # (Auto) 0.05 H Absolute Nucleated RBC 0.02 H Immature Gran % 1 H Nucleated RBC % 0 Sodium 139 Potassium 3.8 Chloride 100 Carbon Dioxide 28.8 Anion Gap 10 BUN 26 H Creatinine 2.6 H D Estim Creat Clear Calc 28.9 L eGFR 20 L BUN/Creatinine Ratio 10 L Glucose 110 H Calculated Osmolality 283 Lactic Acid 2.0 Calcium 8.4 Corrected Calcium 9.1 Magnesium 2.1 Total Bilirubin 0.7 AST 13 ALT < 7 L Alkaline Phosphatase 91 Total Protein 5.2 L Albumin 3.1 L Globulin 2.1 L Albumin/Globulin Ratio 1.5 ABG Interpretation ABG results: 05/31/25 05:04 VBG pH 7.12 L VBG pCO2 20 L VBG pO2 63 H VBG Base Excess -21 L Quality Measures Quality Measures VTE prophylaxis Assessment & Plan Assessment Current Active Medications: Generic Name Dose Route Start Last Admin Trade Name Freq PRN Reason Stop Dose Admin Acetaminophen 650 mg 06/04/25 04:33 06/04/25 05:21 Acetaminophen 325 Mg Tablet PO 06/30/25 04:24 650 mg Q6H PRN Administration PAIN OR FEVER > 101 Hydrocodone Bitart/Acetaminophen 1 tab 05/31/25 18:32 05/31/25 20:13 Hydrocodone/Apap 5/325 Tablet PO 06/05/25 18:31 1 tab Q8HR PRN Administration Pain 4-10 Amiodarone HCl 200 mg 05/31/25 21:00 06/04/25 10:03 Amiodarone Hcl 200 Mg Tablet PO 06/30/25 20:59 Not Given BID RIANNA Apixaban 5 mg 06/02/25 21:00 06/04/25 10:02 Apixaban 2.5 Mg Tablet PO 07/02/25 20:59 5 mg BID RIANNA Administration Dextrose 25 ml 05/31/25 04:28 Dextrose 50%-Water Inj 50 Ml Syringe IV 06/30/25 04:27 Q15MIN PRN BG 50-70 responsive npo pt Dextrose 50 ml 05/31/25 04:28 05/31/25 19:52 Dextrose 50%-Water Inj 50 Ml Syringe IV 06/30/25 04:27 50 ml Q15MIN PRN Administration BG <50 OR BG <70 & pt unresponsive Divalproex Sodium 250 mg 05/31/25 22:00 06/04/25 05:21 Divalproex Sod 125 Mg Sprinkle PO 06/30/25 21:59 250 mg TID RIANNA Administration Epoetin Jemal 10,000 unit 06/02/25 09:00 06/02/25 10:28 Epoetin Jemal-Epbx Inj 10,000 Unit/Ml Vial (Esrd) SC 07/02/25 08:59 10,000 unit 2 X WEEKLY RIANNA Administration Glucagon 1 mg 05/31/25 04:28 Glucagon Inj 1 Mg Vial IM Q15MIN PRN BG <70, and no IV access Heparin Sodium (Porcine) 3,300 unit 06/02/25 08:06 06/02/25 11:09 Heparin Sod Inj 1000 Unit/Ml Vial 10 Ml INDWELLCAT 06/16/25 08:05 3,300 unit X1 PRN Administration DIALYSIS Meropenem 500 mg/ Sodium 50 mls @ 100 mls/hr 06/01/25 09:00 06/04/25 10:02 Chloride IV 06/07/25 05:59 100 mls/hr QDAY RINANA Administration Protocol Albumin Human 25 gm in 100 mls @ 100 mls/min 05/31/25 06:45 06/01/25 13:35 Albuminex 25% Ivpb IV Infused PRN PRN Infusion DIALYSIS Levothyroxine Sodium 50 mcg 06/01/25 06:00 06/04/25 05:22 Levothyroxine Sodium 25 Mcg Tablet PO 07/01/25 05:59 50 mcg ACBR RIANNA Administration Midodrine 10 mg 06/02/25 00:00 06/04/25 05:21 Midodrine 5 Mg Tablet PO 07/02/25 00:00 10 mg Q6HR RIANNA Administration Ondansetron HCl 4 mg 05/31/25 04:25 06/02/25 23:38 Ondansetron Inj 2 Mg/Ml Inj 2 Ml IVP 06/30/25 04:24 4 mg Q6H PRN Administration NAUSEA OR VOMITING Protocol Ropinirole HCl 1 mg 06/01/25 09:00 06/04/25 10:02 Ropinirole Hcl 1 Mg Tablet PO 07/01/25 08:59 1 mg QDAY RIANNA Administration Plan 64-year-old female PHx CVA with residual left-sided weakness, A-fib on amiodarone and Eliquis, HFrEF with 15-20%, ESRD on dialysis (Friday//Friday) follows Dr. Landry, and hx staghorn calculi, presented 05/31 for abdominal pain, nausea, and vomiting. Patient was admitted to ICU for distributive shock 2/2 severe metformin-induced lactic acidosis w/ possible septic component. Patient downgraded to floor today to manage ongoing issues. #Metabolic Encephalopathy - Resolved #2/2 Distributive Shock - Resolved #2/2 Metformin induced Lactic acidosis - Resolving #VS UTI -Admission LA 22.0 w/ confirmation that patient has been continuing to receive metformin at her SNF -Pre-PLR and Post-PLR NICOM suggestive of distributive shock etiology -UA showed 3+ bacteria but is nitrite negative and without accompanying leukocytosis or fever. Also, her UA from last admission on 05/17 showed similar findings but UCx did not end up growing anything, suggesting that these UA findings may instead be from sterile pyuria and chronic colonization in an ESRD patient who does not have free-flowing urine. -Last echo from a month ago revealed EF of 15 to 20% but did not appear to be hypervolemic at ICU (decompensated CHF exacerbation less likely) -Urine cx Final showed Ecoli with >100k colonies/ml (patient has a history of ESBL) -05/31 Blood cx Final 09/02 showed Staph. auricularis (likely contaminant) -Blood cx (06/02/2025): 2/2 showed no growth within 48 hours. Plan: -Hemodialysis per schedule -Continue midodrine 10 mg po qid -Continue IV meropenem #UTI 2/2 E.coli #Hx of sepsis 2/2 UTI 2/2 E.coli (04/30/2025) -UA showed 3+ bacteria but is nitrite negative and without accompanying leukocytosis or fever. Also, her UA from last admission on 05/17 showed similar findings but UCx did not end up growing anything, suggesting that these UA findings may instead be from sterile pyuria and chronic colonization in an ESRD patient who does not have free-flowing urine. -Previous admission on 04/30/2025 due to sepsis secondary to UTI secondary to E.coli. -Past Urine Cx (04/30/2025): E. coli -Urine Cx (05/31/2025): E. coli -Unlikely to be contributory to current trigger of metabolic encephalopathy, as patient's UTI appears to be chronic. Plan: -IV meropenem 500 mg qD. Will stop when repeat Blood Cx is negative for 48hrs -Will continue to monitor patient's electolytes #ESRD on hemodialysis T/T/F #High anion gap metabolic acidosis 2/2 severe metformin-induced lactic acidosis, resolved Creatinine 2.1 (baseline around 1.0) Plan: -Hemodialysis per schedule -HD as per Nephrology recommendations, Dr Landry ?Monitor renal panel with a.m. labs ?Avoid nephrotoxic drugs ?Renally dose medications #HFrEF 15 to 20% (04/2025) #Dilated cardiomyopathy Patient recently discharged from the hospital with plan of optimized GDMT (only currently prescribed B-galina; no TETE inhibitor, MRA or SGLT2 known to be prescribed - due to ESRD on dialysis) Labs revealed elevated BNP 2757 - Strict I&O's - Daily weight - Fluid status management with hemodialysis - Currently holding metoprolol in the setting of shock, may consider resuming if BP allows. #History of A-fib [id number] 5 Home medication is amiodarone 200 mg twice daily and Eliquis 5 mg twice daily - Resume home PO amiodarone - Restarted Eliquis 5 mg p.o. twice daily -Telemetry monitoring #History of DM type II Last A1c 5.0 (05/18/2025) Plan: -PERMANENTLY STOP METFORMIN, MEDICATION IS ABSOLUTELY CONTRAINDICATED IN THIS PATIENT WITH ESRD STATUS ([facility] nurse has been contacted directly and has stated that they have discontinued patient's metformin) -Start insulin sliding scale if glucose exceeds 180 on multiple reads -Glucose checks #History of hypothyroidism Continue home levothyroxine #History of CVA w/ residual left-sided weakness Stable Rx: - Lipid panel ordered for a.m. #Macrocytic anemia Hgb 8.8 No signs/symptoms of bleeding, no dizziness, fatigue, chest pain or shortness of breath Plan - Monitor hemoglobin with a.m. labs Assessment and plan discussed with my attending physician Dr. Pruitt and Dr. Barakat (PGY-3) Dr. Call (PGY-1) - Internal medicine resident Attending Provider Attestation/Addendum I attest that I was physically present for the evaluation, physical examination, lab and imaging review of the patient with the residents. I discussed the case with the residents and agree with the findings and plans of care as documented above. Patient seen and examined at bedside this morning. Appears comfortable and denies any new complaints. Had a rapid response called due to low blood pressure, going down up to 69/45. But the patient was comfortable at bedside, alert and oriented, denies any dizziness, lightheadedness, saturating well on room air. Received extra dose of midodrine and IV albumin 25 g, with improvement in blood pressure 104/58. Patient was scheduled for hemodialysis this morning, postponed to later today due to the hypotension. We will continue with scheduled midodrine, and monitor her blood pressure closely, if remains stable, we will plan for discharge in next 24 to 48 hours. Anahi Pruitt MD
[2025-06-04] MEDS: ONDANSETRON INJ 2 MG/ML INJ 2 ML 4 MG IVP (13:08)
[2025-06-04] MEDS: AMIODARONE HCL 200 MG TABLET PO (21:58)
[2025-06-05] VITALS (9 sets, daily range): BP systolic 91–123; BP diastolic 55–74; PULSE 80–120; RESP 14–91; TEMP 36.2–36.6; O2SAT 96–99; BMI 29.0
[2025-06-05] MEDS: MIDODRINE 5 MG TABLET 10 MG PO ×3 (00:05→11:20)
[2025-06-05] MEDS: HYDROcodone/APAP 5/325 TABLET 1 TAB PO (03:03)
[2025-06-05] MEDS: LEVOTHYROXINE SODIUM 25 MCG TABLET 50 MCG PO (05:12)
[2025-06-05] MEDS: DIVALPROEX SOD 125 MG SPRINKLE 250 MG PO ×2 (05:13→14:05)
[2025-06-05 05:51] LABS: Basophils # (Auto) 0.1 Thou/mm3 (0.0-0.2); Basophils % (Auto) 1 % (0-2.5); Eosinophils # (Auto) 0.1 Thou/mm3 (0.0-0.5); Eosinophils % (Auto) 1 % (0-10); Hematocrit 27.5 % (36.0-46.0); Hemoglobin 8.6 g/dL (12.0-16.0); Immature Granulocytes Auto 0.04 Thou/mm3 (0.00-0.00); Lymphocytes # (Auto) 2.4 Thou/mm3 (1.0-4.8); Lymphocytes % (Auto) 28 % (10-50); Mean Corpuscular HGB Conc 31.3 g/dl (31.0-37.0); Mean Corpuscular Hemoglobin 33.0 pg (25.0-35.0); Mean Corpuscular Volume 105 fL (80-100); Monocytes # (Auto) 0.6 Thou/mm3 (0.0-0.8); Monocytes % (Auto) 7 % (0-12); Neutrophils # (Auto) 5.4 Thou/mm3 (1.8-7.7); Neutrophils % (Auto) 62 % (37-80); Nucleated Red Blood Cell # 0.03 Thou/mm3 (0.00-0.00); Nucleated Red Blood Cell % 0 /100 WBC (0); Platelet Count 184 Thou/mm3 (140-440); RDW Standard Deviation 86.8 fL (36.4-46.3); Red Blood Count 2.61 Miln/mm3 (4.00-5.20); White Blood Count 8.6 Thou/mm3 (3.6-11.0)
[2025-06-05 06:43] LABS: Alanine Aminotransferase < 7 U/L (10-49); Albumin, Serum 3.4 gm/dL (3.4-4.8); Albumin/Globulin Ratio 1.6 (1.2-2.2); Alkaline Phosphatase 85 U/L (46-116); Anion Gap 12 (7-16); Aspartate Amino Transferase < 10 U/L (0-34); BUN/Creatinine Ratio 9 Ratio (12-20); Bilirubin,Total 0.7 mg/dL (0.3-1.2); Blood Urea Nitrogen 29 mg/dL (9-23); Calcium 8.6 mg/dL (8.3-10.6); Calcium (Corrected) 9.1 mg/dL (8.5-10.1); Carbon Dioxide 25.7 mMol/L (20.0-31.0); Chloride 100 mMol/L (98-107); Creatinine (Component) 3.2 mg/dL (0.6-1.3); Estimated Creatinine Clearance 23.5 mL/min (>60); Globulin 2.1 gm/dL (2.3-3.5); Glucose 112 mg/dL (74-106); Magnesium 2.1 mg/dL (1.6-2.6); Osmolality,Calculated 282 (275-295); Potassium 4.2 mMol/L (3.4-5.1); Sodium 138 mMol/L (136-145); Total Protein 5.5 gm/dL (5.7-8.2); eGFR 16 See Note
[2025-06-05] MEDS: MEROPENEM INJ 500 MG in SODIUM CHLORIDE 0.9% (Popper) 50 ML 100 MG IV (08:13)
[2025-06-05] MEDS: APIXABAN 2.5 MG TABLET 5 MG PO (08:13)
[2025-06-05] MEDS: NAPH,KPH MBDB 1 PACKET (1.5 GM) PO (09:51)
--- NOTE | 2025-06-05 12:09 | ESDS_ITS ---
<Statement entered by Flores Barakat MD - 06/05/25 16:28> I discussed with and supervised the digital intern physician who took care of this patient. I personally saw and examined the patient and discussed the assessment and plan with the entire medicine team, including my attending , I agree with the assessment and plan as documented below Flores Barakat M.D. PGY-3 Disclaimer: Despite multiple revisions, due to the dictation software being used, the document bellow may not be free of grammatical errors including phonetic/typographic errors. However, this does not deter from our commitment to providing health care in the patient's best interest in mind. Planned Discharge Date 06/05/25 DS: Providers Provider Date of admission: 05/31/25 04:25 Primary care physician: Kishore Mejía MD Admitting Provider: Yenny Kapadia MD Attending Provider on Admission: Lena Barron MD Consults: 05/31/25 04:25 Consult to Nephrology Stat Comment: HD TTS, uroseptic with LA 20 Consulting Provider: Park Landry 05/31/25 10:16 [facility] Referral - Nutrition Routine Comment: Positive screening for nutrition needs. 05/31/25 18:44 Referral Wound Care Routine Comment: 06/02/25 10:55 Referral Nutritional Services Routine Comment: Wounds Attending Provider on DC: Raheem Call DO Discharging Provider: Raheem Call DO DS: Diagnosis Problem List Completed Was Problem List Reviewed/Reconciled?: Yes Hospital Course Hospital Course Hospital course: Summary: A 64-year-old female with a medical history significant for 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 Landry, and a history of staghorn calculi, was transferred to the emergency department from a nursing facility with chief complaints of abdominal pain, nausea, and vomiting. The patient was admitted to the ICU for sepsis secondary to a urinary tract infection. Later it was found out that the patient has been receiving metformin from her SNF despite her ESRD status and she had a previous history of the admission due to seizure lactic acidosis and shock because of metformin on 05/17. Although initial suspect was UTI etiology for shock, urine analysis showed nitrate negative without accompanying leukocytosis or fever. Patient's urine culture did grow E. coli and started on meropenem IV. Patient received hemodialysis for vascular congestion and metformin toxicity, and midodrine has been given. Patient started on amiodarone and Eliquis for her A- fib. Patient was taking metoprolol but was on hold for shock and hypotension. Patient's lactic acidosis resolved with hemodialysis. Patient was discharged with instructions to never take metformin and midodrine for her hypotension. ED course: Laboratory findings included anemia (hemoglobin of 10.6), leukocytosis (WBC of 23.7), hyperkalemia (potassium of 5.9), metabolic acidosis with bicarbonate of <10, anion gap of 32, BUN of 39, creatinine of 3.8, eGFR of 13, glucose of 11, lactic acidosis (lactate of 10), phosphorus of 6.5, BMP of 2757, and LDH of 257. EKG showed A-fib. In the ED, the patient received multiple boluses of D50 to address hypoglycemia, but her blood glucose levels did not improve. As a result, she was started on a D10 drip. During the interview, her blood pressure dropped with MAP below 65, necessitating the initiation of Levophed drip. A central line was placed in the ED. Additionally, bicarbonate pushes were given to address the underlying acidosis, likely secondary to ESRD. Hospital Course: Upon admission. Lactic acid was 22.0 and with the confirmation that patient has been receiving metformin at her SNF. Pre-PLR and Post-PLR NICOM was suggestive of distributive shock etiology. Urinalysis shows 3+ bacteria but was nitrate negative and patient did not have any leukocytosis or fever. Patient's urine culture grew E. coli, but was suspected to be chronic colonization in a ESRD patient who does not have free-flowing urine. Patient started to receive hemodialysis and pressors at the ICU. Patient also started on midodrine to reduce the pressure requirements. IV meropenem started to treat underlying condition such as sepsis given the patient has a history of ESBL. Patient also started on amiodarone and Eliquis for her A-fib. Patient's medication metoprolol for HFrEF 15 to 20% has been stopped due to her cardiac condition of shock. Blood pressure has been negative for 48 hours x 2. The patient had a rapid event called for being hypotensive which has resolved with additional mid odrine. Patient has been receiving hemodialysis Friday and Friday and patient's lactic acid downtrended to 2.0 on the day of discharge. Patient has been discharged with instructions to avoid taking metformin in the future and to continue outpatient hemodialysis. Instructions: Please take levothyroxine 50mcg 30 minutes before any other medication in the morning Please take furosemide (Lasix) 40mg by mouth daily as needed if you develop leg swelling Continue going to dialysis sessions as scheduled and follow-up with cna - Dr. Landry - within 1-2 weeks after discharge Please close monitor blood pressure, as you tend to have a hypotension, you are prescribed midodrine 10 mg every 6 hours as needed for SBP below 90 and DBP below 60, you may need to take it scheduled with goal directed medical therapy medication for heart failure. However for more details follow-up with your PCP or cardiology for further recommendations. STOP TAKING METFORMIN!!! You have Heart Failure with reduced ejection fraction and need to be on 4- different guideline-directed medical therapy medications but your blood pressure is too low for us to start it at the hospital - please follow-up with Trust Advisor - Dr. Barcenas - within 1 week for close follow-up. Follow-up with your PCP within 1 week of discharge or follow-up at the [address] [place] [address] If your symptoms worsen or if you develop new chest pain, shortness of breath, dizziness or loss of consciousness- please come back to the ED immediately. Wound care: Unstageable to left heel. Unstageable to left lower leg: cleanse with wound cleanser, cover with xeroform gauze. Layer with abd pad and secure with kerlix roll daily. Negative heel pressure bilaterally at all times. Patient stable to discharge to [facility] #Metabolic Encephalopathy - Resolved #2/2 Distributive Shock - Resolved #2/2 Metformin induced Lactic acidosis - Resolving #UTI 2/2 E.coli #Hx of sepsis 2/2 UTI 2/2 E.coli (04/30/2025) #ESRD on hemodialysis T/T/F #High anion gap metabolic acidosis 2/2 severe metformin-induced lactic acidosis, resolved #HFrEF 15 to 20% (04/2025) #Dilated cardiomyopathy #History of A-fib #History of DM type II #History of hypothyroidism #History of CVA w/ residual left-sided weakness #Macrocytic anemia Assessment and plan discussed with my attending physician Dr. Pruitt and Dr. Barakat (PGY-3) Dr. Call (PGY-1) - Internal medicine resident Time Spent with Patient Time attestation: Total time spent providing and/or coordinating discharge services: 39 min Time spent: Greater than 30 minutes Exam Vital Signs Temp Pulse Resp BP Pulse Ox O2 Del Method O2 Flow Rate 97.7 F 95 14 111/71 99 Nasal Cannula 1 06/05/25 08:00 06/05/25 11:20 06/05/25 08:00 06/05/25 11:20 06/05/25 08:00 06/05/25 08:00 06/05/25 08:00 Narrative Exam General: No acute distress, well nourished, AAO x3 Eye: normal conjunctiva, no scleral icterus HENT: Normocephalic, atraumatic, hearing intact to conversation at normal volume, moist oral mucosa Neck: Supple, non-tender, no JVD, no lymphadenopathy Lungs: Non-labored respirations, symmetric chest rise, Clear to auscultate bilaterally, No wheezing, rhonchi, crackles Heart: Peripheral pulses intact bilaterally, Regular Rate and Rhythm. Abdomen: Soft, non-tender, non-distended, no palpable masses Musculoskeletal: +1 pitting edema BLE, Ankle wound on left Leg, +1/5 muscle strength on left leg. Skin: Skin is warm, dry, no rashes or lesions. Psychiatric: Cooperative, appropriate mood and affect, Awake and alert, not agitated Neuro: Cranial nerves II-XII grossly intact. +3/5 muscle strength on left leg with sensory deficit. +5/5 muscle strength on right leg. Discharge Plan Plan Patient Disposition: Xfer Skilled Nsg Fac (SNF) Care Plan Goals: Please take levothyroxine 50mcg 30 minutes before any other medication in the morning Please take furosemide (Lasix) 40mg by mouth daily as needed if you develop leg swelling Continue going to dialysis sessions as scheduled and follow-up with cna - Dr. Landry - within 1-2 weeks after discharge Please close monitor blood pressure, as you tend to have a hypotension, you are prescribed midodrine 10 mg every 6 hours as needed for SBP below 90 and DBP below 60, you may need to take it scheduled with goal directed medical therapy medication for heart failure. However for more details follow-up with your PCP or cardiology for further recommendations. STOP TAKING METFORMIN!!! You have Heart Failure with reduced ejection fraction and need to be on 4- different guideline-directed medical therapy medications but your blood pressure is too low for us to start it at the hospital - please follow-up with Trust Advisor - Dr. Barcenas - within 1 week for close follow-up. Follow-up with your PCP within 1 week of discharge or follow-up at the [facility] [address] [place] [address] If your symptoms worsen or if you develop new chest pain, shortness of breath, dizziness or loss of consciousness- please come back to the ED immediately. Wound care: Unstageable to left heel. Unstageable to left lower leg: cleanse with wound cleanser, cover with xeroform gauze. Layer with abd pad and secure with kerlix roll daily. Negative heel pressure bilaterally at all times. Prescriptions/Referrals Prescriptions/Med Rec: Continued magnesium hydroxide [Milk of Magnesia] 30 ML/CUP suspension 30 ml PO Q72H PRN (Reason: CONSTIPATION) Qty: 0 multivitamin with minerals Tablet 1 tab PO QDAY Qty: 0 ascorbic acid (vitamin C) 500 mg Tablet 500 mg PO BID ondansetron HCl 4 mg tablet 4 mg PO Q6H hydrocodone-acetaminophen 10-325 mg tablet 1 tab PO Q6H ropinirole 1 mg tablet 1 mg PO BID hydroxyzine HCl 25 mg tablet 25 mg PO BID loratadine 10 mg tablet 10 mg PO Q24H sennosides-docusate sodium [Senna-S] 8.6-50 mg tablet 2 tab-cap PO QDAY divalproex [Depakote ER] 250 mg tablet extended release 24 hr 250 mg PO TID psyllium husk [Fiber Laxative (psyllium husk)] 0.52 gram capsule 0.52 g PO BID brimonidine 0.2 % drops 1 drp ophthalmic (eye) HS Rx Instructions: administer approximately 8 hours apart polyethylene glycol 3350 17 gram powder in packet 17 g PO QDAY melatonin 3 mg capsule 3 mg PO HS PRN (Reason: sleep) loperamide 2 mg tablet 4 mg PO Q12H PRN (Reason: loose stool) Enema 19-7 gram/118 mL enema 118 ml AZ Q72H PRN (Reason: constipation) Rx Instructions: if MOM or Dulcolax not effective amiodarone 200 mg tablet 200 mg PO BID 30 Days Qty: 60 0RF atorvastatin [Lipitor] 20 mg tablet 20 mg PO QPM bisacodyl [Dulcolax (bisacodyl)] 10 mg suppository 10 mg AZ Q72H PRN (Reason: constipation if MOM not effective) glucagon 1 mg/0.2 mL auto-injector 1 mg subcut Q15H PRN (Reason: symptomatic hypoglycemia BS <70) naloxone [Rextovy] 4 mg/actuation spray,non-aerosol 1 spray intranasal Q2M PRN (Reason: opioid overdose) Rx Instructions: spray 1 dose into ONE nostril; alternate nostrils w each dose until help arrives, max dose 10mg midodrine 10 mg tablet 10 mg PO Q6H Rx Instructions: hold if SBP>140 and/or DBP >90 apixaban 5 mg tablet 5 mg PO BID 30 Days Qty: 60 0RF Changed furosemide [Lasix] 40 mg tablet 40 mg PO QDAY PRN (Reason: Edema) 30 Days Qty: 30 0RF Rx Instructions: hold if SBP <100 and/or DBP<60 levothyroxine 50 mcg Tablet 50 mcg PO ACBR 30 Days Qty: 30 0RF Discontinued lasix 40 mg PO DAILY AtorvaliQ 20 mg/5 mL (4 mg/mL) suspension 20 mg PO QDAY Rx Instructions: administer on an empty stomach, at least 1 hour before or 2 hours after food/meal(s) loperamide [Anti-Diarrheal (loperamide)] 2 mg capsule 2 mg PO Q6H PRN (Reason: loose stool) Referrals: Bishnu Barcenas MD [Physician, Cardiology] Park Landry MD [Physician, Nephrology] Kishore Mejía MD [Primary Care Provider, Family Practice] Patient/Caregiver Discharge Instructions Education Materials: Heart Failure Meds, Kidney Disease Reducing Potassium, Kidney Disease: Eating Less Sodium, Heart Disease Women, ED Diet for Chronic Kidney Disease Print Language: Bahamian Stand Alone Forms: [employer] Award Info., Patient Portal Info Letter Discharge Order Discharge Orders: Discharge (Routine); Ordered 06/05/25 Ordered By: Flores Barakat Quality Discharge Quality Measures VTE prophylaxis Attestestation MD Attestation I attest that I was physically present for the evaluation, physical examination, lab and imaging review of the patient with the residents. I discussed the case with the residents and agree with the findings and plans of care as documented above. Patient seen and examined by the bedside this morning. Appears comfortable and denies any new complaints. Vital signs have been stable. Blood pressure continues to be stable since yesterday. Lab results are stable as well. Discussed with nephrology, stated patient is safe to follow-up for outpatient dialysis schedule. Back to SNF, on her home medications. Started on metformin. We will also hold her antihypertensives given her low blood pressure. Recommended to follow-up with her PCP and cardiology in 1 to 2 weeks of discharge. She will also need to follow-up with nephrology and dialysis clinic as scheduled. Anahi Pruitt MD
--- NOTE | 2025-06-05 13:39 | PC.SS ---
SS follow up note; SS was informed by patient's nurse that patient had discharge orders in. SS attempted to set up transportation with [employer] [facility], however they informed SS that patient did not have gurney transportation available only wheel chair coverage. Patient is max assist. SS set up transportation with [facility] services. ETA was given for 151. SS notified patient's nurse as well as lázaro from [facility].
--- NOTE | 2025-06-05 13:58 | PC.NURSE ---
Report given to Alice at [facility]
== END 2025-06-05 15:28 | disposition skilled nursing facility (03) | DRG 720 ==
LOC: SERX 04:14 → SERHOLD 04:46 → S2SX 08:03 → S3NX 06-03 07:19 → S2SX 06-03 08:41 → S2NX 06-04 10:54
PROVIDERS: Internal Medicine; Student in an Organized Health Care Education/Training Program; Admitting Provider Student in an Organized Health Care Education/Training Program; Emergency Provider Emergency Medicine; PCP Family Medicine; Visit Provider Internal Medicine
DX: A41.51 Sepsis due to Escherichia coli [E. coli] (principal); N18.6 End stage renal disease; E11.22 Type 2 diabetes mellitus with diabetic chronic kidney disease; I50.22 Chronic systolic (congestive) heart failure; I13.2 Hypertensive heart and chronic kidney disease with heart failure and with stage 5 chronic kidney disease, or end stage renal disease; I69.354 Hemiplegia and hemiparesis following cerebral infarction affecting left non-dominant side; E87.5 Hyperkalemia; E11.649 Type 2 diabetes mellitus with hypoglycemia without coma; N39.0 Urinary tract infection, site not specified; R65.21 Severe sepsis with septic shock; I42.0 Dilated cardiomyopathy; D63.1 Anemia in chronic kidney disease; D53.9 Nutritional anemia, unspecified; E03.9 Hypothyroidism, unspecified; E87.6 Hypokalemia; G93.41 Metabolic encephalopathy; I25.10 Atherosclerotic heart disease of native coronary artery without angina pectoris; I48.20 Chronic atrial fibrillation, unspecified; E87.20 Acidosis, unspecified; I95.89 Other hypotension; R57.8 Other shock; I27.20 Pulmonary hypertension, unspecified; I44.7 Left bundle-branch block, unspecified; T38.3X5A Adverse effect of insulin and oral hypoglycemic [antidiabetic] drugs, initial encounter; Z16.12 Extended spectrum beta lactamase (ESBL) resistance; Z79.01 Long term (current) use of anticoagulants; Z79.899 Other long term (current) drug therapy; Z87.442 Personal history of urinary calculi; Z87.891 Personal history of nicotine dependence; Z99.2 Dependence on renal dialysis; Z88.2 Allergy status to sulfonamides; Z88.8 Allergy status to other drugs, medicaments and biological substances; B96.89 Other specified bacterial agents as the cause of diseases classified elsewhere
CPT/HCPCS: 36415; 71045; 80048; 80053; 80061; 80307; 81001; 82803; 83605; 83615; 83690; 83735; 83880; 84100; 84145; 84484; 85014; 85018; 85025; 85610; 85730; 87040; 87077; 87081; 87086; 87186; 87400; 87811; 93005; 93225; 96361; 96365; 96366; 96375; 96376; 99285; J0780; J1643; J1644; J1956; J2185; J2405; J3010; J3490; J7050; P9047; Q5105; A9270; P0947

== ENCOUNTER 2025-08-06 08:59 | Inpatient (IN) | payer MEDICARE, MEDICAID, SELFPAY ==
[2025-08-06] VITALS (104 sets, daily range): BP systolic 70–133; BP diastolic 39–90; PULSE 68–125; RESP 5–98; TEMP 36.1–39.1; O2SAT 91–100; BMI 33.9; BMI 27.6
--- NOTE | 2025-08-06 09:07 | PD.EDFEVER ---
ED Fever RME/HPI General Chief Complaint: Fever Stated Complaint: FEVER Time Seen by Provider: 08/06/25 09:06 Arrival date/time: 08/06/25 08:59 RME / HPI RME / HPI Narrative: See [facility] for Dr. Buckley's HPI Documentation. Related Data Home Medications ?Medication ?Instructions ?Recorded ?Confirmed magnesium hydroxide 400 mg/5 mL 30 ml PO Q72H PRN CONSTIPATION #0 09/11/15 08/06/25 oral suspension (Milk of Magnesia) mL multivitamin with minerals 1 tab PO QDAY ##0 09/11/15 08/06/25 ascorbic acid (vitamin C) 500 mg 500 mg PO BID 03/12/19 08/06/25 tablet brimonidine 0.2 % eye drops 1 drp ophthalmic (eye) HS 05/01/25 08/06/25 divalproex 250 mg tablet,extended 250 mg PO TID 05/01/25 08/06/25 release 24 hr (Depakote ER) hydrocodone 10 mg-acetaminophen 1 tab PO Q6H 05/01/25 08/06/25 325 mg tablet hydroxyzine HCl 25 mg tablet 25 mg PO BID 05/01/25 08/06/25 loperamide 2 mg tablet 4 mg PO Q12H PRN loose stool 05/01/25 08/06/25 loratadine 10 mg tablet 10 mg PO Q24H 05/01/25 08/06/25 melatonin 3 mg capsule 3 mg PO HS PRN sleep 05/01/25 08/06/25 ondansetron HCl 4 mg tablet 4 mg PO Q6H 05/01/25 08/06/25 polyethylene glycol 3350 17 gram 17 g PO QDAY 05/01/25 08/06/25 oral powder packet psyllium husk 0.52 gram capsule 0.52 g PO BID 05/01/25 08/06/25 (Fiber Laxative (psyllium husk)) ropinirole 1 mg tablet 1 mg PO BID 05/01/25 08/06/25 sennosides 8.6 mg-docusate sodium 2 tab-cap PO QDAY 05/01/25 08/06/25 50 mg tablet (Senna-S) sodium phosphates 19 gram-7 118 ml UT Q72H PRN constipation 05/01/25 08/06/25 gram/118 mL enema (Enema) atorvastatin 20 mg tablet (Lipitor) 20 mg PO QPM 06/03/25 08/06/25 bisacodyl 10 mg rectal suppository 10 mg UT Q72H PRN constipation if 06/03/25 08/06/25 (Dulcolax (bisacodyl)) MOM not effective glucagon 1 mg/0.2 mL subcutaneous 1 mg subcut Q15H PRN symptomatic 06/03/25 08/06/25 auto-injector hypoglycemia BS <70 midodrine 10 mg tablet 10 mg PO Q6H 06/03/25 08/06/25 naloxone 4 mg/actuation nasal 1 spray intranasal Q2M PRN opioid 06/03/25 08/06/25 spray (Rextovy) overdose amiodarone 200 mg tablet 200 mg PO BID 08/06/25 08/06/25 apixaban 5 mg tablet (Eliquis) 5 mg PO BID 08/06/25 08/06/25 Previous Rx's ?Medication ?Instructions ?Recorded furosemide 40 mg tablet (Lasix) 40 mg PO QDAY PRN Edema 1 month 06/03/25 #30 tabs levothyroxine 50 mcg tablet 50 mcg PO ACBR 1 month #30 tabs 06/03/25 Allergies Allergy/AdvReac Type Severity Reaction Status Date / Time Cephalexin Monohydrate Allergy Severe Anaphylaxis Verified 05/31/25 01:13 sulfamethoxazole Allergy Severe Anaphylaxis Verified 05/31/25 01:13 trimethoprim Allergy Severe Anaphylaxis Verified 05/31/25 01:13 Review of Systems Review of Systems Systems Reviewed: All systems reviewed, normal except as documented Past Medical History Past Medical History NEUROLOGIC: Positive Neurological Disorders, Cerebrovascular Accident and Paralysis CARDIAC: Positive Atrial Fibrillation, Hypertension and Hypotension RESPIRATORY: Positive Asthma GENITOURINARY: Positive Chronic Kidney Disease and Renal Disease MUSCULOSKELETAL: Positive Musculoskeletal Disorders ENDOCRINE: Positive Endocrine Disorders and Diabetes Mellitus Type 2 PSYCHO/SOCIAL: Positive Bipolar Disorder, Depression and Anxiety Social History SMOKING STATUS: Former smoker SUBSTANCE USE: does not use ALCOHOL: Never Physical Exam Narrative Physical exam: See [facility] for Dr. Buckley's HPI Documentation. Course Quality Measures none Orders Category Date Time Status COVID-19 Screening Questionnaire NOW Care 08/06/25 12:[address] Screening NOW Care 08/06/25 09:10 Active Decision to Admit X1 Care 08/06/25 12:55 Completed EKG (ED ONLY) *Do not use* NOW Care 08/06/25 09:09 Completed Saline [Insert IV] NOW Care 08/06/25 09:08 Active Straight [In and Out Catheter] X1 Care 08/06/25 09:08 Completed Diet Diabetic Clear Liquid Diet 08/06/[address] LE LT w con Stat Exams 08/06/25 09:[address] chest abdomen pelvis wo Stat Exams 08/06/25 09:09 Completed EKG (ED Only) Stat Exams 08/06/25 09:09 Draft US gall bladder Stat Exams 08/06/25 09:09 Completed XR chest 1V portable Stat Exams 08/06/25 09:09 Completed ABG [Arterial Blood Gas] Stat Lab 08/06/25 11:42 Completed Amylase Stat Lab 08/06/25 09:30 Completed BNP [B-Type Natriuretic Peptide] Stat Lab 08/06/25 09:30 Completed Bilirubin,Direct Stat Lab 08/06/25 09:30 Completed Blood Culture (Lab) Stat Lab 08/06/25 09:25 Results CBC Stat Lab 08/06/25 09:30 Completed CMP [Comprehensive Metabolic Panel] Stat Lab 08/06/25 09:30 Completed COVID-19 Antigen (In-House) Stat Lab 08/06/25 09:31 Completed CRP [C-Reactive Protein] Stat Lab 08/06/25 09:30 Completed ESR [Sed Rate (ESR)] Stat Lab 08/06/25 09:30 Completed Hemoglobin A1C [Glycohemoglobin w (eAG)] Stat Lab 08/06/25 09:30 Completed Influenza A & B Rapid Panel Stat Lab 08/06/25 09:31 Completed Lactate (Lactic Acid) Stat Lab 08/06/25 09:30 Completed Lactic Acid, 3 HR Stat Lab 08/06/25 13:13 Completed Lipase Stat Lab 08/06/25 09:30 Completed Magnesium Stat Lab 08/06/25 09:30 Completed Procalcitonin Stat Lab 08/06/25 09:30 Completed TSH [Thyroid Stimulating Hormone] Stat Lab 08/06/25 09:30 Completed Troponin I Stat Lab 08/06/25 09:30 Completed Troponin I Stat Lab 08/06/25 11:53 Completed UA, C/S IF [Urinalysis, C/S if Indicated] Stat Lab 08/06/25 09:17 Completed Urine Culture Stat Lab 08/06/25 09:17 Received Acetaminophen Tab [Tylenol ES Tab] Med 08/06/25 09:13 Discontinued 1,000 mg PO X1 ONE Aspirin Chew Med 08/06/25 11:13 Discontinued 324 mg PO X1 ONE Cefepime Inj [Maxipime Inj] 2 gm Med 08/06/25 09:15 Discontinued SODIUM CHLORIDE 0.9% (Popper) [Ns 0.9% (P)] 50 ml IV X1 DILTIAZEM in NS 100 MG (DO NOT [DILTIAZEM in NS 100 MG] Med 08/06/25 09:43 Active 100 mg in 100 ml IV 5 mg/hr Diltiazem Inj [Cardizem Inj] Med 08/06/25 09:43 Discontinued 15 mg IV X1 ONE Ketorolac Inj [Toradol Inj] Med 08/06/25 09:13 Discontinued 15 mg IVP X1 ONE MethylPREDNISolone.* [SoluMEDROL Inj] Med 08/06/25 09:15 Discontinued 125 mg IVP X1 ONE Morphine* Inj Med 08/06/25 09:08 Discontinued 2 mg IV X1 ONE Norepinephrine/D5W 8mg/250ml [Levophed in D5W 8mg/250ml Med 08/06/25 11:14 Active ] 8 mg in 250 ml IV 0.05 mcg/kg/min Ondansetron Inj [Zofran Inj] Med 08/06/25 09:08 Discontinued 4 mg IVP X1 ONE Ringers Lactated 1000 ml [Lactated Ringers] 1,000 ml Med 08/06/25 09:08 Discontinued IV 1,000 mls/hr Sodium Chloride 0.9% 1000 ml [Ns] 1,000 ml Med 08/06/25 11:14 Discontinued IV 999 mls/hr Vancomycin Inj 2,000 mg Med 08/06/25 09:15 Discontinued Sodium Chloride 0.9% 500 ml [Ns] 500 ml IV X1 Vital Signs Vital signs: Vital Signs Temperature 102.2 F H 08/06/25 09:19 Pulse Rate 125 H 08/06/25 09:19 Respiratory Rate 20 08/06/25 09:19 Blood Pressure 96/63 08/06/25 09:19 Pulse Oximetry (%) 95 08/06/25 09:19 Oxygen Delivery Method Nasal Cannula 08/06/25 09:19 Oxygen Flow Rate 4 08/06/25 09:19 Fever MDM Narrative MDM Narrative:: This section includes all my notes and documentations, including HPI, PE, and ED course. Trenton Buckley MD HPI: 64-year-old female here from a local senior living with fever. Patient is unaware of fever. But has chills and malaise and nausea. No other complaints. Exam remarkable for abdominal tenderness and left lower leg wound with erythema/edema/calor/tenderness. ROS: All negative except as documented in HPI. Physical Exam: General: Lethargic. Hypotension noted. Fever noted. Eyes: Conjunctivae and lids clear. EOMI. PERRL. ENT: No nasal congestion. Pharynx normal. Tympanic membrane normal bilaterally. Neck: Supple. No carotid bruit. No JVD. Heart: Irregularly irregular (125 bpm). Lungs: No respiratory distress. Good air movement. No severe rhonchi, wheezing, rales. Abdomen: Soft with diffuse tenderness, difficult to localize. Normal bowel sounds. No distension. No rebound or guarding. Back: No CVA tenderness. Legs: No clubbing, cyanosis, edema. Skin: Warm and dry. In the left lower leg, quarter sized wound noted with erythema/edema/calor/tenderness. Neuro: Oriented X 1. Cranial Nerves II-XII grossly intact. No peripheral motor deficits. I reviewed EMS and senior living notes. I reviewed all diagnostic test results: My interpretation of the EKG: Atrial fibrillation with RVR (125 bpm). My interpretation of the chest x-ray is increased vascular congestion. My review of the chest/abdomen/pelvis CT report is: Mild heart failure. My review of the gallbladder US report is: Cholelithiasis. My review of the left lower leg CT report is cellulitis. Blood tests remarkable for WBC 22.3, ESR 73, lactic acid 2.1, CRP 40, procalcitonin 38.36, K 5.4, Cr 3.7, troponin 1.423, BNP 1839. UA showed leukocyte esterase and WBC and bacteria. Covid/Influenza negative. At this point, diagnoses include: Septic shock UTI CHF NSTEMI ESRD Atrial fibrillation with RVR Treatment I ordered included: IVF Toradol 15 mg IV and Tylenol 1000 mg PO ASA 324 mg Cefepime 2 g IV and vancomycin 2 g IV Cardizem bolus and drip Levophed drip Significant improvement not noted. I discussed the case with our ICU team. About the presentation and exam and diagnostics and treatments here. And need of further care in the hospital. Will accept the patient. Trenton Buckley MD Patient data External records reviewed:: [facility] previous records Clinical information provided by:: patient and EMS Social determinants that could affect healthcare access:: none Patient has the following chronic illnesses:: CVA, paralysis, atrial fibrillation, hypertension, asthma, CKF, DM 2, and anxiety. How is presenting disease/condition affected by chronic disease/condition?: exacerbated by Evaluation data The following diagnostics were reviewed and interpreted by me:: lab results, radiology exam(s) and EKG tracing(s) (My interpretation of the EKG: Atrial fibrillation with RVR (125 bpm). Trenton Buckley MD) Lab and/or radiology exams considered but not ordered:: none Interpretation Summary: I reviewed all diagnostic test results: My interpretation of the EKG: Atrial fibrillation with RVR (125 bpm). My interpretation of the chest x-ray is increased vascular congestion. My review of the chest/abdomen/pelvis CT report is: Mild heart failure. My review of the gallbladder US report is: Cholelithiasis. My review of the left lower leg CT report is cellulitis. Blood tests remarkable for WBC 22.3, ESR 73, lactic acid 2.1, CRP 40, procalcitonin 38.36, K 5.4, Cr 3.7, troponin 1.423, BNP 1839. UA showed leukocyte esterase and WBC and bacteria. Covid/Influenza negative. Medications / Prescriptions Medications or Prescriptions considered but not ordered:: none Medication administrations:: Medication Administration History Acetaminophen (Acetaminophen 325 Mg Tablet) 650 mg PO Q6H PRN PRN Reason: Fever >100.4 or pain 1-3 Stop: 09/05/25 15:57 Hydrocodone Bitart/Acetaminophen (Hydrocodone/Apap 5/325 Tablet) 1 tab PO Q4HR PRN PRN Reason: PAIN SCALE 4-6 (Moderate Stop: 08/11/25 15:57 Dextrose (Dextrose 50%-Water Inj 50 Ml Syringe) 25 ml IV Q15MIN PRN PRN Reason: BG 50-70 responsive npo pt Stop: 09/05/25 16:06 Dextrose (Dextrose 50%-Water Inj 50 Ml Syringe) 50 ml IV Q15MIN PRN PRN Reason: BG <50 OR BG <70 & pt unresponsive Stop: 09/05/25 16:06 Docusate Sodium (Docusate Sod 100 Mg Capsule) 100 mg PO QDAY RIANNA; Protocol Stop: 09/06/25 08:59 Glucagon (Glucagon Inj 1 Mg Vial) 1 mg IM Q15MIN PRN PRN Reason: BG <70, and no IV access Heparin Sodium (Porcine) (Heparin Sod Inj 5000 Unit/Ml Vial) 5,000 unit SC Q8HR [facility] Stop: 08/20/25 16:14 Last Admin: 08/07/25 05:14 Dose: 5,000 unit Documented By: Co-signed By: ABIGAIL Admin: 08/07/25 00:09 Dose: Not Given Documented By: Non-Admin Reason: RECENTLY ADMINISTERED Admin: 08/06/25 21:22 Dose: 5,000 unit Documented By: Co-signed By: ANICETO Diltiazem/Sodium Chloride (Diltiazem In Ns 100 Mg) 100 mg in 100 mls @ 5 mls/hr IV .Q20H [facility] Stop: 09/05/25 09:42 Last Admin: 08/07/25 01:04 Dose: Not Given Documented By: Non-Admin Reason: Change of Condition Admin: 08/06/25 11:54 Dose: Not Given Documented By: MARTIN Non-Admin Reason: See IV Spreadsheet Norepinephrine/Dextrose (Levophed In D5w 8mg/250ml) 8 mg in 250 mls @ 10.631 mls/hr IV .[id number] PRN; Protocol PRN Reason: PER PROTOCOL Stop: 09/05/25 11:13 Last Titration: 08/07/25 02:00 Dose: 0 mcg/kg/min, 0 mls/hr Documented By: Titration: 08/07/25 01:00 Dose: 0.01 mcg/kg/min, 2.126 mls/hr Documented By: Titration: 08/07/25 00:45 Dose: 0.01 mcg/kg/min, 2.126 mls/hr Documented By: Titration: 08/07/25 00:00 Dose: 0.03 mcg/kg/min, 6.379 mls/hr Documented By: Titration: 08/06/25 23:00 Dose: 0.03 mcg/kg/min, 6.379 mls/hr Documented By: Titration: 08/06/25 22:00 Dose: 0.03 mcg/kg/min, 6.379 mls/hr Documented By: Titration: 08/06/25 21:00 Dose: 0.03 mcg/kg/min, 6.379 mls/hr Documented By: Titration: 08/06/25 20:30 Dose: 0.03 mcg/kg/min, 6.379 mls/hr Documented By: Titration: 08/06/25 20:00 Dose: 0.05 mcg/kg/min, 10.631 mls/hr Documented By: Titration: 08/06/25 19:00 Dose: 0.05 mcg/kg/min, 10.631 mls/hr Documented By: Titration: 08/06/25 18:15 Dose: 0.05 mcg/kg/min, 10.631 mls/hr Documented By: Titration: 08/06/25 18:11 Dose: 0.05 mcg/kg/min, 10.631 mls/hr Documented By: Titration: 08/06/25 18:00 Dose: 0.03 mcg/kg/min, 6.379 mls/hr Documented By: Titration: 08/06/25 17:55 Dose: 0.03 mcg/kg/min, 6.379 mls/hr Documented By: Titration: 08/06/25 17:40 Dose: 0.01 mcg/kg/min, 2.126 mls/hr Documented By: Titration: 08/06/25 17:00 Dose: 0.03 mcg/kg/min, 6.379 mls/hr Documented By: Titration: 08/06/25 16:00 Dose: 0.03 mcg/kg/min, 6.379 mls/hr Documented By: Titration: 08/06/25 15:30 Dose: 0.03 mcg/kg/min, 6.379 mls/hr Documented By: Titration: 08/06/25 15:00 Dose: 0.05 mcg/kg/min, 10.631 mls/hr Documented By: Titration: 08/06/25 14:00 Dose: 0.05 mcg/kg/min, 10.631 mls/hr Documented By: Titration: 08/06/25 13:00 Dose: 0.05 mcg/kg/min, 10.631 mls/hr Documented By: Titration: 08/06/25 12:55 Dose: 0.05 mcg/kg/min, 10.631 mls/hr Documented By: Admin: 08/06/25 12:50 Dose: 0.05 mcg/kg/min, 10.631 mls/hr Documented By: MARTIN Piperacillin/Tazobactam/Dextrose (Zosyn) 3.375 gm in 50 mls @ 100 mls/hr IV Q8HR RIANNA; Protocol Stop: 08/13/25 16:05 Last Admin: 08/07/25 05:10 Dose: 100 mls/hr Documented By: Infusion: 08/06/25 21:52 Dose: Infused Documented By: Admin: 08/06/25 21:22 Dose: 100 mls/hr Documented By: Infusion: 08/06/25 18:39 Dose: Infused Documented By: Admin: 08/06/25 18:09 Dose: 100 mls/hr Documented By: MARTIN Vancomycin HCl 2,000 mg/ (Sodium Chloride) 500 mls @ 150 mls/hr IV X1 ONE Stop: 08/07/25 11:44 Insulin Human Lispro (Insulin Lispro (Admelog) 1 Unit/0.01 Ml Unit) 0 unit SC Q6HR RIANNA; Protocol Stop: 09/05/25 17:59 Last Admin: 08/07/25 06:01 Dose: Not Given Documented By: Non-Admin Reason: Per Protocol Admin: 08/07/25 00:19 Dose: 2 unit Documented By: Co-signed By: ABIGAIL Admin: 08/06/25 18:03 Dose: Not Given Documented By: MARTIN Non-Admin Reason: Per Protocol Levothyroxine Sodium (Levothyroxine Sodium 25 Mcg Tablet) 50 mcg PO ACBR RIANNA Stop: 09/07/25 05:59 Midodrine (Midodrine 5 Mg Tablet) 10 mg PO Q6HR PRN PRN Reason: MAP >65 Stop: 09/05/25 16:09 Morphine Sulfate (Morphine Sulf Inj 4 Mg/Ml Vial) 1 mg IVP Q4HR PRN PRN Reason: PAIN SCALE 7-10 (Severe Stop: 08/11/25 15:57 Ondansetron HCl (Ondansetron Inj 2 Mg/Ml Inj 2 Ml) 4 mg IVP Q6H PRN; Protocol PRN Reason: NAUSEA OR VOMITING Stop: 09/05/25 15:57 Pharmacy Consult (Vancomycin Pharmacy To Dose 1 Each Each) 1 each IV QDAY PRN PRN Reason: SEPSIS Stop: 09/06/25 08:59 Discontinued Medications Acetaminophen (Acetaminophen 500 Mg Tablet) 1,000 mg PO X1 ONE Stop: 08/06/25 09:14 Last Admin: 08/06/25 09:56 Dose: 1,000 mg Documented By: MARTIN Aspirin (Aspirin 81 Mg Chew) 324 mg PO X1 ONE Stop: 08/06/25 11:14 Last Admin: 08/06/25 11:46 Dose: 324 mg Documented By: MARTIN Diltiazem HCl (Diltiazem Inj 5 Mg/Ml Vial 5 Ml) 15 mg IV X1 ONE Stop: 08/06/25 09:44 Last Admin: 08/06/25 11:55 Dose: Not Given Documented By: MARTIN Non-Admin Reason: See IV Spreadsheet Comments: HOLD PER Lactated Ringer's (Lactated Ringers) 1,000 mls @ 1,000 mls/hr IV .Q1H ONE Stop: 08/06/25 10:07 Last Infusion: 08/06/25 12:02 Dose: Infused Documented By: Admin: 08/06/25 09:56 Dose: 1,000 mls/hr Documented By: MARTIN Cefepime HCl 2 gm/ Sodium (Chloride) 50 mls @ 100 mls/hr IV X1 ONE Stop: 08/06/25 09:44 Last Admin: 08/06/25 10:29 Dose: Not Given Documented By: MARTIN Non-Admin Reason: Discontinued Vancomycin HCl 2,000 mg/ (Sodium Chloride) 500 mls @ 150 mls/hr IV X1 ONE Stop: 08/06/25 12:34 Last Infusion: 08/06/25 14:19 Dose: Infused Documented By: Admin: 08/06/25 09:55 Dose: 150 mls/hr Documented By: MARTIN Sodium Chloride (Ns) 1,000 mls @ 999 mls/hr IV .Q1H1M ONE Stop: 08/06/25 12:14 Last Admin: 08/06/25 11:48 Dose: Not Given Documented By: MARTIN Non-Admin Reason: Discontinued Ketorolac Tromethamine (Ketorolac Inj 30 Mg/Ml Vial) 15 mg IVP X1 ONE Stop: 08/06/25 09:14 Last Admin: 08/06/25 09:51 Dose: 15 mg Documented By: MARTIN Methylprednisolone Sodium Succinate (Methylprednisolone Sod Succ 62.5 Mg/Ml 2ml Vial) 125 mg IVP X1 ONE Stop: 08/06/25 09:16 Last Admin: 08/06/25 09:51 Dose: 125 mg Documented By: MARTIN Morphine Sulfate (Morphine Sulf Inj 4 Mg/Ml Vial) 2 mg IV X1 ONE Stop: 08/06/25 09:09 Last Admin: 08/06/25 11:42 Dose: Not Given Documented By: MARTIN Non-Admin Reason: Change of Condition Ondansetron HCl (Ondansetron Inj 2 Mg/Ml Inj 2 Ml) 4 mg IVP X1 ONE; Protocol Stop: 08/06/25 09:09 Last Admin: 08/06/25 09:51 Dose: 4 mg Documented By: MARTIN Treatment I ordered included: IVF Toradol 15 mg IV and Tylenol 1000 mg PO ASA 324 mg Cefepime 2 g IV and vancomycin 2 g IV Cardizem bolus and drip Levophed drip Consultations Consultation(s) initiated? (list below): Yes Consultation #1 (Physician, Specialty, Details): I discussed the case with our ICU team. About the presentation and exam and diagnostics and treatments here. And need of further care in the hospital. Will accept the patient. Diagnosis Fever Differential Diagnosis: cellulitis, fever of unknown origin, gastroenteritis, community acquired pneumonia, pyelonephritis, viral infection, sepsis, influenza and other Most likely diagnosis given after review of the tests above:: Septic shock UTI CHF NSTEMI ESRD Atrial fibrillation with RVR Admission Indicated Admission indicated?: indicated Explain why admission is indicated or not indicated:: Septic shock UTI CHF NSTEMI ESRD Atrial fibrillation with RVR Admission Request Was there a request for admission?: Yes Admission Attestation Admission request attestation: I discussed the case with our ICU team. About the presentation and exam and diagnostics and treatments here. And need of further care in the hospital. Will accept the patient. Disposition Plan Disposition Plan: Admit Critical Care Time Critical Care Time Critical Care Time: Yes Total Critical Care Time (min.): 36 Attestation: Due to a high probability of clinically significant, life threatening deterioration, the patient required my highest level of preparedness to intervene emergently and I personally spent this critical care time directly and personally managing the patient. This critical care time included obtaining a history; examining the patient; ordering and review of studies; arranging urgent treatment with development of a management plan; evaluation of patient's response to treatment; frequent reassessment; and discussions with family and other providers. It was exclusive of separately billable procedures and treating other patients and teaching time. Trenton Buckley MD Discharge Plan Plan Patient Disposition: Admit Acute Care w/in Hospital Problem List Clinical Impression: Septic shock, UTI (urinary tract infection), CHF (congestive heart failure), NSTEMI (non-ST elevation myocardial infarction), ESRD (end stage renal disease) on dialysis, Atrial fibrillation with RVR
--- NOTE | 2025-08-06 09:09 | XR_ITS ---
Examination: CT left lower extremity with intravenous contrast, 2-D sagittal reconstructions. 2-D coronal reconstructions. 3-D reconstructions. Date and time of exam: August 06, 2025, 1035 hours INDICATIONS: Left lower leg redness swelling and pain several days CTDI: vol (mGy): 14.6 DLP: (mGycm): 1670 Technique: Multiple 1.25 mm axial sections of the left lower leg post intravenous administration 60 cc Isovue 370 have been obtained. 2-D sagittal and coronal reconstructions have been obtained. 3-D reconstructions have been obtained. Low dose protocols were performed. One or more of the following dose reduction techniques were used; automated exposure control, adjustment of the mA and/or KV according to patient size, use of iterative reconstruction technique. Findings: Abundant stool in the rectum with thickening of the rectal wall, likely proctitis pattern Severe atrophy of the flexor or extensor muscles in the left lower extremity Cellulitis medial upper thigh with skin thickening however no abscess Cellulitis lateral distal thigh posteriorly with skin thickening no abscess Soft tissue ulcer defect lateral posterior lower leg again no fluid-filled abscess collection Negative for osteomyelitis IMPRESSION: Cellulitis patterns as above No soft tissue abscess Negative for osteomyelitis
--- NOTE | 2025-08-06 09:09 | XR_ITS ---
Examination: Abdomen sonogram, Limited Date and time of exam: August 06, 2025, 0953 hours August 06, 2025, 0935 hours INDICATIONS: Right upper abdominal pain and tenderness today, sepsis Technique: Real-time jiménez scale transabdominal sonographic images of the upper abdomen obtained. Findings: 4 mm gallstone Normal gallbladder wall Normal common bile duct 0.4 cm Pancreatic head 2.2 cm Liver 18.3 cm irregular contour no liver lesions Normal hepatopetal portal venous flow Patent IVC IMPRESSION: Cholelithiasis, negative for cholecystitis
--- NOTE | 2025-08-06 09:09 | XR_ITS ---
EXAMINATION: AP chest single view TECHNIQUE: AP portable semiupright chest single view Date and time: August 06, 2025, 0957 hours, comparison 05/31/2025 INDICATIONS: Shortness of breath today. FINDINGS: Mild CHF Moderate enlargement cardiac contour Right internal jugular dialysis catheter tip satisfactory position Early perihilar edema IMPRESSION: Mild CHF
--- NOTE | 2025-08-06 09:09 | EKG_ITS ---
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
--- NOTE | 2025-08-06 09:09 | XR_ITS ---
Examination: CT chest, without intravenous contrast. CT abdomen, without intravenous contrast. CT pelvis, without intravenous contrast. 2-D sagittal and coronal reconstructions. 3-D reconstructions. Date and time of exam: August 06, 2025, 10:30 a.m. INDICATIONS: Shortness of breath generalized abdominal pain today CTDI vol (mgy) 23.9 DLP (MGycm) 1690 Technique: Multiple CT images, 3.0 mm slice thickness, obtained chest, abdomen, pelvis, with the high-resolution 64 slice scanner.. Sagittal and coronal 2-D reconstructions are obtained. 3-D reconstructions Low dose protocols were performed. One or more of the following dose reduction techniques were used; automated exposure control, adjustment of the mA and/or KV according to patient size, use of iterative reconstruction technique. Findings: Dialysis catheter tip SVC Moderate enlargement cardiac contour No thoracic aortic aneurysm dilatation Pulmonary artery segments not enlarged Prominent vascular congestion 10 mm soft nodular density in the right middle lobe image 177 No visualized liver or splenic lesion No gallstones No pancreatic mass Numerous staghorn calculi left kidney including occupying the left renal collecting system although no significant hydronephrosis Significant renal scarring No pericecal inflammatory change No bowel obstruction Large amounts of stool in the rectum No diverticulitis Severe osteopenia IMPRESSION: Mild heart failure Recommend 3-month follow-up CT chest to document stability of 10 mm nodule in the right middle lobe Prominently scarred atrophic kidneys Extensive staghorn calculi left kidney although no significant hydronephrosis, no ureteral calculi No bowel obstruction No CT findings of appendicitis or diverticulitis Severe osteopenia
[2025-08-06 09:43] LABS: Lactate (Lactic Acid) 2.1 mMol/L (0.4-2.0)
[2025-08-06] MEDS: KETOROLAC INJ 30 MG/ML VIAL 15 MG IVP (09:51)
[2025-08-06] MEDS: MethylPREDNISolone SOD SUCC 62.5 MG/ML 2ML VIAL 125 MG IVP (09:51)
[2025-08-06] MEDS: ONDANSETRON INJ 2 MG/ML INJ 2 ML 4 MG IVP (09:51)
[2025-08-06] MEDS: Vancomycin Inj 2,000 MG in SODIUM CHLORIDE 0.9% 500 ML 500 ML 150 MG IV (09:55)
[2025-08-06 09:56] LABS: Basophils # (Auto) 0.0 Thou/mm3 (0.0-0.2); Basophils % (Auto) 0 % (0-2.5); Eosinophils # (Auto) 0.0 Thou/mm3 (0.0-0.5); Eosinophils % (Auto) 0 % (0-10); Hematocrit 35.7 % (36.0-46.0); Hemoglobin 10.8 g/dL (12.0-16.0); Immature Granulocytes Auto 0.44 Thou/mm3 (0.00-0.00); Lymphocytes # (Auto) 1.5 Thou/mm3 (1.0-4.8); Lymphocytes % (Auto) 7 % (10-50); Mean Corpuscular HGB Conc 30.3 g/dl (31.0-37.0); Mean Corpuscular Hemoglobin 31.3 pg (25.0-35.0); Mean Corpuscular Volume 104 fL (80-100); Monocytes # (Auto) 2.0 Thou/mm3 (0.0-0.8); Monocytes % (Auto) 9 % (0-12); Neutrophils # (Auto) 18.3 Thou/mm3 (1.8-7.7); Neutrophils % (Auto) 82 % (37-80); Nucleated Red Blood Cell # 0.04 Thou/mm3 (0.00-0.00); Nucleated Red Blood Cell % 0 /100 WBC (0); Platelet Count 158 Thou/mm3 (140-440); RDW Standard Deviation 58.2 fL (36.4-46.3); Red Blood Count 3.45 Miln/mm3 (4.00-5.20); White Blood Count 22.3 Thou/mm3 (3.6-11.0)
[2025-08-06] MEDS: ACETAMINOPHEN 500 MG TABLET 1000 MG PO (09:56)
[2025-08-06] MEDS: RINGERS LACTATED 1000 ML 1,000 ML IV (09:56)
[2025-08-06 10:17] LABS: Alanine Aminotransferase 16 U/L (10-49); Albumin, Serum 3.7 gm/dL (3.4-4.8); Albumin/Globulin Ratio 1.1 (1.2-2.2); Alkaline Phosphatase 77 U/L (46-116); Amylase 23 U/L (30-118); Anion Gap 14 (7-16); Aspartate Amino Transferase 35 U/L (0-34); BUN/Creatinine Ratio 11 Ratio (12-20); Bilirubin,Direct 0.5 mg/dL (0.0-0.3); Bilirubin,Total 0.7 mg/dL (0.3-1.2); Blood Urea Nitrogen 39 mg/dL (9-23); C-Reactive Protein 40.0 mg/dL (0.0-0.9); Calcium 8.7 mg/dL (8.3-10.6); Calcium (Corrected) 8.9 mg/dL (8.5-10.1); Carbon Dioxide 28.2 mMol/L (20.0-31.0); Chloride 99 mMol/L (98-107); Creatinine (Component) 3.7 mg/dL (0.6-1.3); Estimated Creatinine Clearance 21.9 mL/min (>60); Globulin 3.3 gm/dL (2.3-3.5); Glucose 103 mg/dL (74-106); Lipase 19 U/L (12-53); Magnesium 2.2 mg/dL (1.6-2.6); Osmolality,Calculated 290 (275-295); Potassium 5.4 mMol/L (3.4-5.1); Procalcitonin 38.36 ng/ml (0.0-0.49); Sodium 141 mMol/L (136-145); Thyroid Stimulating Hormone 4.03 uIU/mL (0.55-4.78); Total Protein 7.0 gm/dL (5.7-8.2); eGFR 13 See Note
[2025-08-06 10:20] LABS: Troponin I 1.423 ng/mL (0.0-0.045)
[2025-08-06 10:32] LABS: Sed Rate (ESR) 73 mm/hr (0-30)
[2025-08-06 10:41] LABS: COVID-19 Antigen (In-House) Negative (Negative); Influenza A Ag Negative; Influenza B Ag Negative
[2025-08-06 10:45] LABS: Glucose Estimated Average 85 mg/dL (80-131); Hemoglobin A1C 4.6 % Hgb (4.8-6.0)
[2025-08-06 11:14] LABS: B-Type Natriuretic Peptide 1839 pg/mL (0-100)
[2025-08-06 11:46] LABS: Base Excess 1 (-3-3); HCO3 26 mEq/L (20-26); Inspired Oxygen, FIO2 21 %; O2 Saturation 98 % (91-98); PCO2 41 mmHg (32.0-48.0); PO2 96 mmHg (83-108); pH, Arterial 7.41 (7.35-7.45)
[2025-08-06] MEDS: ASPIRIN 81 MG CHEW 324 MG PO (11:46)
[2025-08-06 11:55] LABS: Allen Test Performed/OK; Puncture Site Right Radial
[2025-08-06 12:29] LABS: Color,Urine Other (Lt Yel-Yel)
[2025-08-06 12:30] LABS: Clarity,Urine Other (Clear/Hazy)
[2025-08-06 12:33] LABS: Collection Type, Urine Clean Catch
[2025-08-06 12:38] LABS: Troponin I 1.175 ng/mL (0.0-0.045)
[2025-08-06 12:39] LABS: Reflex Lactate? Y
[2025-08-06 12:44] LABS: Bilirubin,Urine Negative (Negative); Glucose, Urine Negative (Negative); Ketones,Urine Negative (Negative)
[2025-08-06 12:45] LABS: Blood,Urine 3+ (Negative); Leukocyte Esterase,Urine 3+ (Negative); Nitrite,Urine Negative (Negative); PH,Urine 8.0 (5.0-7.0); Protein,Urine 3+ (Neg - Trace); Specific Gravity,Urine 1.015 (1.001-1.035); Urobilinogen,Urine 0.2 mg/dL (0.0-1.0)
[2025-08-06] MEDS: Norepinephrine/D5W 8mg/250ml 8 MG/250 ML BAG 10.631 MG IV (12:50)
[2025-08-06 13:06] LABS: Culture Indicated,Urine Yes
[2025-08-06 13:17] LABS: Lactic Acid, 3 HR 1.6 mMol/L (0.4-2.0)
--- NOTE | 2025-08-06 16:12 | ESHP_ITS ---
<Statement entered by Brianne Goff MD - 08/06/25 19:37> I have reviewed the note and agree with the resident's assessment & plan with exceptions as below. I have personally reviewed labs, imaging, home meds/prior records, examined the patient, formulated and discussed management plan with the IM team. Neurology #History of CVA, residual left-sided hemiplegia Stable Cardiology: #Shock DDx: Distributive or cardiogenic at this time. Patient does have HFrEF, wall motion abnormalities and ejection fraction of 2025%. However if there is a source of infection in the urine and patient does have signs of infection and urinalysis, will wait for urine culture. Will need to use NICOM for further evaluation. Patient was not found to have cardiac tamponade and pulmonary embolus not seen on imaging Dx: CBC, blood cultures, U/C Rx: IV Levophed, IV Zosyn #Chronic A-fib [id number]: 5 Rate: Irregularly Irregular Rhythm: Controlled Plan: ? Telemetry ? Diltiazem drip ? Keep magnesium 1.6-1.8 ? Keep Potassium 3.6-3.8 #NSTEMI type II, likely related to demand ischemia, resolved Pulmonary: Stable Gastrointestinal: Stable Nephrology: #End-stage renal disease #Electrolyte abnormalities #Hyperphosphatemia DDx:ATN, Prerenal, Post Dx: U/A Rx: Continuing hemodialysis schedule, Avoid nephrotoxic agents, renally dose medicines Hematology: #Leukocytosis DDx: Infectious, stress related Dx: CBC, Blood cultures Rx: Treat underlying problem RRX: If infection is not treated Endocrine: #Hx of hypothyroidism Dx: TSH Rx: Resumed home thyroid medicine Infectious Disease: #Sepsis Sepsis due to 3/4 SIRS criteria with acute sepsis-related organ dysfunction as evidence by ARIANA, Fever, Leukocytosis, Tachycardia 1L fluid bolus because of concern with HFrEF SOFA: 4 Plan: DDx: Urine infection, intra-abdominal infection Dx: BC, Urine Cultures Rx: IV Zosyn, Follow up cultures #ICU Health maintenance Mechanical ventilation: No Sedation: No Diet: CLD DVT prophylaxis: Heparin GI prophylaxis: None Turner: No Lines: PIV Antibiotics: IV Zosyn CODE STATUS: Full Patient seen and care discussed with my attending physician, Dr. Brianne Goff, PGY-2 This document was transcribed using voice recognition technology. Minor inaccuracies may be present. Documentation for date of: 08/06/25 HPI History of Present Illness History of present illness: A 64-year-old female with a medical history significant for 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 Landry, and a history of staghorn calculi, was transferred to the emergency department from a nursing facility after staff found her to be lethargic, hypotensive, and with fever. Patient admitted for sepsis workup. ED Course Summary Vitals: BP 96/63 HR 125 RR 20 T 102.2F O2 sat 95% NC 4 L Labs: WBC 22.3 Hgb 10.8 MCV 104 Plt 158 ESR 73 K 5.4 BUN 39 Cr 3.7 A1C 4.6 LA 2.1 CRP 40 BNP 1839 Procal 38.36 Amylase 23 TSH 4 UA pH 8 Protein +3 blood +3 LE +3 EKG a fib with RVR HR 125 QRSd 149 QTc 504 CXR Mild CHF CTAP scarred atrophic kidney, staghorn calculi L kidney w/o hydronephrosis GBUS: cholelithiasis negative for cholecystitis Lower extremity CT: cellulitis pattern medial upper thigh with skin thickening and lateral distal thigh posteriorly, soft tissue ulcer defect lateral posterior lower leg, no fluid-filled abscess collection. Treatment: Zofran, ketorolac, methyl prednisone, Vancomycin, LR 1L, tylenol, aspirin, norepinephrine On initial exam patient was AOx3 and GCS 15 however was incredibly lethargic and not able to respond to most interview questions. The rest of her history was taken per chart review, and summary from ED sign out,as well as repeat interview when she was more awake. She currently denies any urinary symptoms. She denies any new found discomfort. She states she felt unwell the last 3 days but is unable to articulate what unwell means. The patient apparently was lethargic and hypotensive at the nursing facility and found to have a fever of 102F in the ED. She was started on levofed and is getting zosyn abx IV. Code: Full Medical Hx: Please see 1-liner above Medications: per med rec amio, eliquis, atorvastatin, depakote, lasix, levothyroxine 50, midodrine 10, ropinirole Allergies: cephalexin, TMP SMX Surgical history: Not obtained All 12 systems reviewed and were negative except otherwise stated in HPI. Exam Vital Signs Temp Pulse Resp BP Pulse Ox O2 Del Method O2 Flow Rate 98.6 F 90 16 123/61 99 Nasal Cannula 2 08/06/25 15:30 08/06/25 15:30 08/06/25 15:30 08/06/25 15:30 08/06/25 15:30 08/06/25 15:30 08/06/25 15:30 Narrative Exam Lines: x2 PIV (levofed), and R sided tunneled subclavian catheter Drains: none Tubes: none GENERAL: AOx3 No apparent distress, lying comfortably in hospital bed, breathing comfortably, no obvious signs of discomfort. Requests food multiple times. HEENT: Atraumatic, normocephalic, PERRL, accommodation intact, mucous membranes dry CHEST: S3+, no murmurs, rubs, or gallops noted. Lungs no rhales, rhonchi. C rackles noted L lung base ABDOMEN: NBS, ND, soft, NTTP/superficially TTP (extremely tender to superficial palpation, no tenderness on deep palpation) Tim's negative EXTREMITIES: All pulses palpated +2, +2 pedal edema noted, L sided motor deficits, hand and feet flexed sensation intact, no neglect. BACK: No CVA tenderness, no bruises, rashes noted, spine has normal symmetry without stepoffs, bony tenderness or paraspinal muscle tenderness RECTUM: No blood noted to be in rectum on REZA. Stool in rectal vault yes. No signs of hemmorhoids or active bleeding. Results: Labs 08/07/25 06:37 08/07/25 06:37 Labs: Short CBC 08/06/25 Range/Units 09:30 WBC 22.3 H (3.6-11.0) Thou/mm3 Hgb 10.8 L (12.0-16.0) g/dL Hct 35.7 L (36.0-46.0) % Plt Count 158 (140-440) Thou/mm3 BMP 08/06/25 09:30 Sodium 141 Potassium 5.4 H Chloride 99 Carbon Dioxide 28.2 BUN 39 H Creatinine 3.7 H Glucose 103 Calcium 8.7 Cardiac Enzymes 08/06/25 08/06/25 Range/Units 09:30 11:53 Troponin I 1.423 H* 1.175 H* D (0.0-0.045) ng/mL Liver Function 08/06/25 Range/Units 09:30 Total Bilirubin 0.7 (0.3-1.2) mg/dL Direct Bilirubin 0.5 H (0.0-0.3) mg/dL AST 35 H (0-34) U/L ALT 16 (10-49) U/L Alkaline Phosphatase 77 (46-116) U/L Albumin 3.7 (3.4-4.8) gm/dL Urine 08/06/25 Range/Units 09:17 Urine Color Other A (Lt Yel-Yel) Urine Clarity Other A (Clear/Hazy) Urine pH 8.0 H (5.0-7.0) Ur Specific [place] 1.015 (1.001-1.035) Urine Protein 3+ A (Neg - Trace) Urine Glucose (UA) Negative (Negative) ABG Interpretation ABG results: 08/06/25 11:42 ABG pH 7.41 ABG pCO2 41 ABG pO2 96 ABG HCO3 26 ABG O2 Saturation 98 ABG Base Excess 1 Quality Measures Quality Measures none Medications Home Medications and Allergies Home Medications ?Medication ?Instructions ?Recorded ?Confirmed ?Type magnesium hydroxide 400 mg/5 mL 30 ml PO Q72H PRN CONS TIPATION #0 09/11/15 08/06/25 History oral suspension (Milk of Magnesia) mL multivitamin with minerals 1 tab PO QDAY ##0 09/11/15 08/06/25 History ascorbic acid (vitamin C) 500 mg 500 mg PO BID 9 08/06/25 History tablet brimonidine 0.2 % eye drops 1 drp ophthalmic (eye) HS 05/01/25 08/06/25 History divalproex 250 mg tablet,extended 250 mg PO TID 08/06/25 History release 24 hr (Depakote ER) hydrocodone 10 mg-acetaminophen 1 tab PO Q6H 05/01/25 08/06/25 History 325 mg tablet hydroxyzine HCl 25 mg tablet 25 mg PO BID 05/01/2502/23 History loperamide 2 mg tablet 4 mg PO Q12H PRN loose stool 05/01/25 08/06/25 History loratadine 10 mg tablet 10 mg PO Q24H 05/01/2508/06 History melatonin 3 mg capsule 3 mg PO HS PRN sleep 5 08/06/25 History ondansetron HCl 4 mg tablet 4 mg PO Q6H 05/01/2508/06 History polyethylene glycol 3350 17 gram 17 g PO QDAY 05/01/25 08/06/25 History oral powder packet psyllium husk 0.52 gram capsule 0.52 g PO BID 05/01/25 08/06/25 History (Fiber Laxative (psyllium husk)) ropinirole 1 mg tablet 1 mg PO BID 05/01/25 5 History sennosides 8.6 mg-docusate sodium 2 tab-cap PO QDAY 08/06/25 History 50 mg tablet (Senna-S) sodium phosphates 19 gram-7 118 ml NH Q72H PRN constip ation 05/01/25 08/06/25 History gram/118 mL enema (Enema) atorvastatin 20 mg tablet (Lipitor) 20 mg PO QPM 06/0308/06/25 History bisacodyl 10 mg rectal suppository 10 mg NH Q72H PRN c onstipation if 06/03/25 08/06/25 History (Dulcolax (bisacodyl)) MOM not effective glucagon 1 mg/0.2 mL subcutaneous 1 mg subcut Q15H PRN symptomatic 06/03/25 08/06/25 History auto-injector hypoglycemia BS <70 midodrine 10 mg tablet 10 mg PO Q6H 06/03/25 History naloxone 4 mg/actuation nasal 1 spray intranasal Q2M P RN opioid 06/03/25 08/06/25 History spray (Rextovy) overdose amiodarone 200 mg tablet 200 mg PO BID 08/06/2508/06 History apixaban 5 mg tablet (Eliquis) 5 mg PO BID 08/06/25 History Allergies Allergy/AdvReac Type Severity Reaction Status Date / Time Cephalexin Monohydrate Allergy Severe Anaphylaxis Verified 05/31/25 01:13 sulfamethoxazole Allergy Severe Anaphylaxis Verified 05/31/25 01:13 trimethoprim Allergy Severe Anaphylaxis Verified 05/31/25 01:13 Visit Medications Acetaminophen (Acetaminophen 325 Mg Tablet) 650 mg PO Q6H PRN PRN Reason: Fever >100.4 or pain 1-3 Stop: 09/05/25 15:57 Hydrocodone Bitart/Acetaminophen (Hydrocodone/Apap 5/325 Tablet) 1 tab PO Q4HR PRN PRN Reason: PAIN SCALE 4-6 (Moderate Stop: 08/11/25 15:57 Dextrose (Dextrose 50%-Water Inj 50 Ml Syringe) 25 ml IV Q15MIN PRN PRN Reason: BG 50-70 responsive npo pt Stop: 09/05/25 16:06 Dextrose (Dextrose 50%-Water Inj 50 Ml Syringe) 50 ml IV Q15MIN PRN PRN Reason: BG <50 OR BG <70 & pt unresponsive Stop: 09/05/25 16:06 Docusate Sodium (Docusate Sod 100 Mg Capsule) 100 mg PO QDAY RIANNA; Protocol Stop: 09/06/25 08:59 Glucagon (Glucagon Inj 1 Mg Vial) 1 mg IM Q15MIN PRN PRN Reason: BG <70, and no IV access Heparin Sodium (Porcine) (Heparin Sod Inj 5000 Unit/Ml Vial) 5,000 unit SC Q8HR [facility] Stop: 08/20/25 16:14 Diltiazem/Sodium Chloride (Diltiazem In Ns 100 Mg) 100 mg in 100 mls @ 5 mls/hr IV .Q20H RIANNA Stop: 09/05/25 09:42 Last Admin: 08/06/25 11:54 Dose: Not Given Norepinephrine/Dextrose (Levophed In D5w 8mg/250ml) 8 mg in 250 mls @ 10.631 mls/hr IV .[id number] PRN; Protocol PRN Reason: PER PROTOCOL Stop: 09/05/25 11:13 Last Titration: 08/06/25 16:00 Dose: 0.03 mcg/kg/min, 6.379 mls/hr Piperacillin/Tazobactam/Dextrose (Zosyn) 50 mls @ 100 mls/hr IV Q8HR RIANNA; Protocol Stop: 08/13/25 16:05 Insulin Human Lispro (Insulin Lispro (Admelog) 1 Unit/0.01 Ml Unit) 0 unit SC Q6HR RIANNA; Protocol Stop: 09/05/25 17:59 Morphine Sulfate (Morphine Sulf Inj 4 Mg/Ml Vial) 1 mg IVP Q4HR PRN PRN Reason: PAIN SCALE 7-10 (Severe Stop: 08/11/25 15:57 Ondansetron HCl (Ondansetron Inj 2 Mg/Ml Inj 2 Ml) 4 mg IVP Q6H PRN; Protocol PRN Reason: NAUSEA OR VOMITING Stop: 09/05/25 15:57 Discontinued Medications Acetaminophen (Acetaminophen 500 Mg Tablet) 1,000 mg PO X1 ONE Stop: 08/06/25 09:14 Last Admin: 08/06/25 09:56 Dose: 1,000 mg Aspirin (Aspirin 81 Mg Chew) 324 mg PO X1 ONE Stop: 08/06/25 11:14 Last Admin: 08/06/25 11:46 Dose: 324 mg Diltiazem HCl (Diltiazem Inj 5 Mg/Ml Vial 5 Ml) 15 mg IV X1 ONE Stop: 08/06/25 09:44 Last Admin: 08/06/25 11:55 Dose: Not Given Lactated Ringer's (Lactated Ringers) 1,000 mls @ 1,000 mls/hr IV .Q1H ONE Stop: 08/06/25 10:07 Last Infusion: 08/06/25 12:02 Dose: Infused Cefepime HCl 2 gm/ Sodium (Chloride) 50 mls @ 100 mls/hr IV X1 ONE Stop: 08/06/25 09:44 Last Admin: 08/06/25 10:29 Dose: Not Given Vancomycin HCl 2,000 mg/ (Sodium Chloride) 500 mls @ 150 mls/hr IV X1 ONE Stop: 08/06/25 12:34 Last Infusion: 08/06/25 14:19 Dose: Infused Sodium Chloride (Ns) 1,000 mls @ 999 mls/hr IV .Q1H1M ONE Stop: 08/06/25 12:14 Last Admin: 08/06/25 11:48 Dose: Not Given Ketorolac Tromethamine (Ketorolac Inj 30 Mg/Ml Vial) 15 mg IVP X1 ONE Stop: 08/06/25 09:14 Last Admin: 08/06/25 09:51 Dose: 15 mg Methylprednisolone Sodium Succinate (Methylprednisolone Sod Succ 62.5 Mg/Ml 2ml Vial) 125 mg IVP X1 ONE Stop: 08/06/25 09:16 Last Admin: 08/06/25 09:51 Dose: 125 mg Morphine Sulfate (Morphine Sulf Inj 4 Mg/Ml Vial) 2 mg IV X1 ONE Stop: 08/06/25 09:09 Last Admin: 08/06/25 11:42 Dose: Not Given Ondansetron HCl (Ondansetron Inj 2 Mg/Ml Inj 2 Ml) 4 mg IVP X1 ONE; Protocol Stop: 08/06/25 09:09 Last Admin: 08/06/25 09:51 Dose: 4 mg Assessment & Plan Plan A 64-year-old female with a medical history significant for 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 Landry, and a history of staghorn calculi, was transferred to the emergency department from a nursing facility after staff found her to be lethargic, hypotensive, and with fever. Patient admitted for sepsis workup. [employer] #Hx of CVA, residual L-sided hemiplegia Stable #Lethargy/Mild encephalopathy - resolved No further work up needed, patient is actively eating and requesting more food. back at baseline CV #Shock DDx: Distributive or cardiogenic at this time. Patient does have HFrEF, wall motion abnormalities and ejection fraction of 2025%. However if there is a source of infection in the urine and patient does have signs of infection and urinalysis, will wait for urine culture. Will need to use NICOM for further evaluation. Patient was not found to have cardiac tamponade and pulmonary embolus not seen on imaging. Has history of recurrent Dx: CBC, blood cultures, U/C Rx: IV Levophed, IV Zosyn #Chronic A-fib [id number]: 5 Rate: Irregularly Irregular Rhythm: Controlled Plan: ? Telemetry ? Diltiazem drip ? Keep magnesium 1.6-1.8 ? Keep Potassium 3.6-3.8 #NSTEMI type II, likely related to demand ischemia, resolved Pulmonary: Stable Gastrointestinal: Stable Nephrology: #End-stage renal disease #Electrolyte abnormalities #Hyperphosphatemia DDx:ATN, Prerenal, Post Dx: U/A Rx: Continuing hemodialysis schedule, Avoid nephrotoxic agents, renally dose medicines Hematology: #Leukocytosis DDx: Infectious, stress related Dx: CBC, Blood cultures Rx: Treat underlying problem RRX: If infection is not treated #Macrocytosis Rx FUP B12 folate Endocrine: #Hx of hypothyroidism Dx: TSH Rx: Resumed home thyroid medicine Infectious Disease: #Sepsis Sepsis due to 3/4 SIRS criteria with acute sepsis-related organ dysfunction as evidence by ARIANA, Fever, Leukocytosis, Tachycardia 1L fluid bolus because of concern with HFrEF SOFA: 4 Plan: DDx: Urine infection, intra-abdominal infection Dx: BC, Urine Cultures Rx: IV Zosyn, Follow up cultures Derm: #Pressure ulcers Scaral and decubitous ulcer and lateral leg ulcers. Do not appear cellulitic, more granulotamous. Ankle has a purulent base with oozing without cellultic changes. Rx: Continue to monitor, wound care referral placed #ICU Health maintenance Mechanical ventilation: No Sedation: No Diet: CLD DVT prophylaxis: Heparin GI prophylaxis: None Turner: No Lines: PIV Antibiotics: IV Zosyn CODE STATUS: Full Patient examined and plan discussed with attending Dr. Ervin and supervising resident Dr. Goff. Note Written by Hang Figueroa PGY-1 Attending Provider Attestation/Addendum Patient seen and examined. Discussed with resident. In brief this is 64-year-old female well-known to the service who presents from long-term for altered mentation. In the ED she was found to be hypotensive and febrile. She was given IV fluids however was still hypotensive and was started on Levophed. At this point time the ICU was consulted. Patient was examined in the ER and was found to be slightly lethargic. She was easily arousable. Lungs were clear to auscultation diminished at bases, heart irregular rhythmic, no pain on palpation of the chest wall. Abdomen is soft, obese, nontender. There is edema bilateral lower extremities as well as upper extremities there is left-sided hemiparesis there are decubitus ulcers on the patient's left ankle and left heel which do not appear grossly infected. She was given a liter of fluid and then started on Levophed in the ER. A UA was obtained and the description of the urine was purulent in nature. She has been started on antibiotics. She does have a history of A-fib however is currently rate controlled. Case discussed with ICU and ER Labs, imaging records reviewed Approximately 70 critical care minutes required for evaluation, exam, review, intervention, discussion formation of plan of care prescribed will patient with probable septic shock on vasopressors
[2025-08-06] MEDS: PIPER/TAZO 3.375 GM PREMIX 3.375 GM/50 ML BAG IV ×2 (18:09→21:22)
[2025-08-06 18:27] LABS: Albumin, Serum 3.5 gm/dL (3.4-4.8); Anion Gap 14 (7-16); BUN/Creatinine Ratio 11 Ratio (12-20); Blood Urea Nitrogen 40 mg/dL (9-23); Calcium 8.6 mg/dL (8.3-10.6); Calcium (Corrected) 9.0 mg/dL (8.5-10.1); Carbon Dioxide 24.0 mMol/L (20.0-31.0); Chloride 101 mMol/L (98-107); Creatinine (Component) 3.8 mg/dL (0.6-1.3); Estimated Creatinine Clearance 21.3 mL/min (>60); Glucose 165 mg/dL (74-106); Osmolality,Calculated 291 (275-295); Phosphorous 5.4 mg/dL (2.4-5.1); Potassium 5.2 mMol/L (3.4-5.1); Sodium 139 mMol/L (136-145); eGFR 13 See Note
[2025-08-06] MEDS: HEPARIN SOD INJ 5000 UNIT/ML VIAL SC (21:22)
[2025-08-07] VITALS (53 sets, daily range): BP systolic 75–207; BP diastolic 46–164; PULSE 65–128; RESP 11–96; TEMP 36.1–37; O2SAT 88–98; BMI 27.2
[2025-08-07] MEDS: INSULIN LISPRO (AdmeLOG) 1 UNIT/0.01 ML UNIT SC (00:19)
[2025-08-07 04:53] LABS: Base Excess 0 (-3-3); HCO3 25 mEq/L (20-26); Inspired Oxygen, FIO2 21 %; O2 Saturation 95 % (91-98); PCO2 38 mmHg (32.0-48.0); PO2 71 mmHg (83-108); pH, Arterial 7.42 (7.35-7.45)
[2025-08-07 04:55] LABS: Allen Test Performed/OK; Puncture Site Right Radial
[2025-08-07] MEDS: PIPER/TAZO 3.375 GM PREMIX 3.375 GM/50 ML BAG IV ×3 (05:10→21:24)
[2025-08-07] MEDS: HEPARIN SOD INJ 5000 UNIT/ML VIAL SC ×3 (05:14→21:24)
[2025-08-07 06:57] LABS: Basophils # (Auto) 0.1 Thou/mm3 (0.0-0.2); Basophils % (Auto) 0 % (0-2.5); Eosinophils # (Auto) 0.0 Thou/mm3 (0.0-0.5); Eosinophils % (Auto) 0 % (0-10); Hematocrit 37.5 % (36.0-46.0); Hemoglobin 11.5 g/dL (12.0-16.0); Immature Granulocytes Auto 0.12 Thou/mm3 (0.00-0.00); Lymphocytes # (Auto) 1.0 Thou/mm3 (1.0-4.8); Lymphocytes % (Auto) 5 % (10-50); Mean Corpuscular HGB Conc 30.7 g/dl (31.0-37.0); Mean Corpuscular Hemoglobin 31.4 pg (25.0-35.0); Mean Corpuscular Volume 103 fL (80-100); Monocytes # (Auto) 1.1 Thou/mm3 (0.0-0.8); Monocytes % (Auto) 6 % (0-12); Neutrophils # (Auto) 16.1 Thou/mm3 (1.8-7.7); Neutrophils % (Auto) 88 % (37-80); Nucleated Red Blood Cell # 0.00 Thou/mm3 (0.00-0.00); Nucleated Red Blood Cell % 0 /100 WBC (0); Platelet Count 129 Thou/mm3 (140-440); RDW Standard Deviation 56.0 fL (36.4-46.3); Red Blood Count 3.66 Miln/mm3 (4.00-5.20); White Blood Count 18.3 Thou/mm3 (3.6-11.0)
[2025-08-07 07:27] LABS: Alanine Aminotransferase 21 U/L (10-49); Albumin, Serum 3.5 gm/dL (3.4-4.8); Albumin/Globulin Ratio 0.9 (1.2-2.2); Alkaline Phosphatase 88 U/L (46-116); Anion Gap 17 (7-16); Aspartate Amino Transferase 33 U/L (0-34); BUN/Creatinine Ratio 13 Ratio (12-20); Bilirubin,Total 0.6 mg/dL (0.3-1.2); Blood Urea Nitrogen 56 mg/dL (9-23); Calcium 9.1 mg/dL (8.3-10.6); Calcium (Corrected) 9.5 mg/dL (8.5-10.1); Carbon Dioxide 24.7 mMol/L (20.0-31.0); Chloride 98 mMol/L (98-107); Creatinine (Component) 4.2 mg/dL (0.6-1.3); Estimated Creatinine Clearance 17.4 mL/min (>60); Globulin 3.7 gm/dL (2.3-3.5); Glucose 160 mg/dL (74-106); Magnesium 2.3 mg/dL (1.6-2.6); Osmolality,Calculated 297 (275-295); Phosphorous 5.6 mg/dL (2.4-5.1); Potassium 4.7 mMol/L (3.4-5.1); Sodium 140 mMol/L (136-145); Total Protein 7.2 gm/dL (5.7-8.2); Triglycerides 83 mg/dL (30-150); eGFR 11 See Note
--- NOTE | 2025-08-07 09:00 | XR_ITS ---
EXAMINATION: AP chest single view TECHNIQUE: AP portable semiupright chest single view Date and time: August 07, 2025, 0547 hours, comparison August 06, 2025 INDICATIONS: Wheezing shortness of breath this week. FINDINGS: Mild CHF Mild enlargement cardiac contour, ectatic enlarged thoracic aorta Prominent vascular congestion with perihilar edema Prominent osteopenia Right internal jugular central line tip SVC satisfactory position IMPRESSION: Mild CHF
--- NOTE | 2025-08-07 09:35 | ECHO_ITS ---
Patient Info Name: Hollie Whaley Age: 64 years : 1960 Gender: Female Ht: 183 cm Wt: 91 kg BSA: 2.17 m2 BP: 178 / 154 mmHg HR: 129 bpm Exam Date: 08/07/2025 1:45 PM Admit Date: 08/06/2025 Site: [facility] Room Number: [id number] Patient Status: I Technical Quality: Fair Exam Type: CA echo doppler complete [employer] Priest: Dayna Khan Ordering Physician: Giorgio Azul Study Info Indications r/o IE , GPC+ - Primary Location: S2SX Left Ventricular Outflow Tract Name Value Normal LVOT 2D LVOT Diameter 2.0 cm LVOT Doppler LVOT Peak Velocity 125 cm/s LVOT Mean Gradient 3 mmHg LVOT VTI 20 cm LVOT VTI/AV VTI Ratio 0.8 LVOT Stroke Volume 62 ml Pulmonic Valve Name Value Normal PV Doppler PV Peak Velocity 63 cm/s Mitral Valve Name Value Normal MV Doppler MV Decel [place]bot 490 cm/s2 MV PHT 51 ms MV Area (PHT) 4.3 cm2 4.0-5.0 MV Diastolic Function MV E Peak Velocity 86 cm/s MV A Peak Velocity 22 cm/s MV E/A 3.9 MV Annular TDI MV Septal e' Velocity 7.4 cm/s MV E/e' (Septal) 11.7 MV Lateral e' Velocity 12.4 cm/s MV E/e' (Lateral) 7.0 MV e' Average 9.90 cm/s MV E/e' (Average) 9.3 Tricuspid Valve Name Value Normal TV Regurgitation Doppler TR Peak Velocity 218 cm/s Estimated PAP/RSVP RA Pressure 8 mmHg <=5 PA Systolic Pressure 27 mmHg <36 RV Systolic Pressure 27 mmHg <36 TV Annular TDI TV Lateral Khushi s' Velocity 11.7 cm/s >=9.5 Aortic Valve Name Value Normal AV 2D/MM AV Cusp Sep (MM) 1.5 cm AV Doppler AV Peak Velocity 151 cm/s AV Mean Gradient 5 mmHg AV VTI 24 cm AV Area (Cont Eq VTI) 2.6 cm2 >=3.0 AV Area (Cont Eq Akbar) 2.6 cm2 AV DI (Akbar) 0.83 AV Regurgitation 2D LVOT Area 3.1 cm2 Ventricles Name Value Normal LV Dimensions 2D/MM LVOT Diameter 2.0 cm LV Fractional Shortening/Ejection Fraction 2D/MM LV Diastolic Volume (4C MOD) 229 ml LV EF (4C MOD) 23 % LV Diastolic Volume (2C MOD) 160 ml LV EF (2C MOD) 27 % LV Diastolic Volume (BP MOD) 197 ml 46-106 LV Diastolic Volume Index (BP MOD) 91 ml/m2 29-61 LV Systolic Volume (BP MOD) 150 ml 14-42 LV Systolic Volume Index (BP MOD) 69 ml/m2 8-24 LV EF (BP MOD) 24 % 54-74 LV Diastolic Length (4C) 8.6 cm LV Systolic Length (4C) 7.1 cm LV Stroke Volume (4C MOD) 53 ml RV Dimensions 2D/MM TV Lateral Khushi s' Velocity 11.7 cm/s >=9.5 Atria Name Value Normal LA Dimensions LA Volume (4C A-L) 78 ml LA Volume (BP A-L) 85 ml Left Ventricle Left ventricular chamber dimension is moderately enlarged. Left ventricular systolic function is severely reduced with visually estimated ejection fraction of 15-20%. There is normal geometry noted in the left ventricle. Left ventricular segmental wall motion is normal. There is normal diastolic function in the left ventricle. Right Ventricle Right ventricular chamber dimension is normal. Right ventricular systolic function is reduced. Left Atrium Left atrial chamber dimension is severely enlarged. Right Atrium Right atrial chamber dimension is mildly enlarged. Aortic Valve The aortic valve is trileaflet. There is no aortic valve sclerosis. There is no aortic valve stenosis with a peak velocity of 151 cm/s, mean gradient of 5 mmHg, and aortic valve area of 2.6 cm2. There is trace aortic valve regurgitation. Pulmonic Valve The pulmonic valve is normal. There is no pulmonic valve stenosis. There is no pulmonic regurgitation. Mitral Valve The mitral valve has normal leaflets. There is no mitral valve stenosis. There is moderate mitral valve regurgitation. Tricuspid Valve The tricuspid valve leaflets are normal. There is no tricuspid valve stenosis. There is mild to moderate tricuspid valve regurgitation. No pulmonary hypertension, estimated pulmonary arterial systolic pressure is 27 mmHg and systemic blood pressure of 178 mmHg in systole. Pericardium/Pleural The pericardium appears normal. There is no pericardial effusion. No pleural effusion visualized. Inferior Vena Cava Not well visualized inferior vena cava with >50% collapse upon inspiration consistent with normal right atrial pressure, 8 mmHg. Aorta The aortic measurements are indexed to age and body surface area. The aortic root at the sinus of Valsalva is not well visualized. The prox ascending aorta is not well visualized. Summary 1. Left ventricle size is moderately enlarged and severe global hypokenesis and severe systolic dysfunction.. Estimated ejection fraction is 15-20%. 2. Right ventricle chamber size is normal and systolic function is mildly reduced. Estimated RVSP is 35-40 mmHg. Mild to moderate pulmonary hypertension. 3. Moderate MR, mild to moderate TR and trace AI. 4. The left atrium is severely enlarged. The right atrium is mildly enlarged. 5. Not well visualized IVC with estimated RA pressure 8 mmHg. Report Signatures Finalized by Bishnu Barcenas on 08/08/2025 07:32 PM
[2025-08-07] MEDS: ALBUMIN HUMAN-KJDA 25% IVPB 25 GM/100 ML BTL IV (09:37)
[2025-08-07] MEDS: AMIODARONE HCL 200 MG TABLET PO ×2 (09:38→21:33)
[2025-08-07] MEDS: MIDODRINE 5 MG TABLET 10 MG PO ×2 (09:39→17:11)
[2025-08-07] MEDS: DOCUSATE SOD 100 MG CAPSULE PO (09:39)
[2025-08-07] MEDS: HEPARIN SOD INJ 1000 UNIT/ML VIAL 10 ML 2500 UNIT IV (10:17)
--- NOTE | 2025-08-07 10:45 | PD.RESPRO ---
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 Landry, and a history of staghorn calculi, was transferred to the emergency department from a nursing facility after staff found her to be lethargic, hypotensive, and with fever. Patient admitted for sepsis workup. ED Course Summary Vitals: BP 96/63 HR 125 RR 20 T 102.2F O2 sat 95% NC 4 L Labs: WBC 22.3 Hgb 10.8 MCV 104 Plt 158 ESR 73 K 5.4 BUN 39 Cr 3.7 A1C 4.6 LA 2.1 CRP 40 BNP 1839 Procal 38.36 Amylase 23 TSH 4 UA pH 8 Protein +3 blood +3 LE +3 EKG a fib with RVR HR 125 QRSd 149 QTc 504 CXR Mild CHF CTAP scarred atrophic kidney, staghorn calculi L kidney w/o hydronephrosis GBUS: cholelithiasis negative for cholecystitis Lower extremity CT: cellulitis pattern medial upper thigh with skin thickening and lateral distal thigh posteriorly, soft tissue ulcer defect lateral posterior lower leg, no fluid-filled abscess collection. Treatment: Zofran, ketorolac, methyl prednisone, Vancomycin, LR 1L, tylenol, aspirin, norepinephrine On initial exam patient was AOx3 and GCS 15 however was incredibly lethargic and not able to respond to most interview questions. The rest of her history was taken per chart review, and summary from ED sign out,as well as repeat interview when she was more awake. She currently denies any urinary symptoms. She denies any new found discomfort. She states she felt unwell the last 3 days but is unable to articulate what unwell means. The patient apparently was lethargic and hypotensive at the nursing facility and found to have a fever of 102F in the ED. She was started on levofed and is getting zosyn abx IV. 08/07/2025 On today's examination patient has 2 peripheral IV catheters and right subclavian for dialysis. Patient currently not on any sedation or pressors. Overnight she was taken off Levophed at 2am. She had no urine output, blood cultures came gram-positive came back on 10/03 she is on Zosyn and vancomycin. Because the gram-positive cultures will order an echo to evaluate her valves. Canceled the Dilt drip and give her amio her home dose around 200 mg twice daily and she is set to get hemodialysis today with Dr Landry to remove 2 to 3 L. She is found to have redness and pustulent discharge from dialysis catheter site during her dialysis infusion. Wound cultures ordered. Continuing the vancomycin coverage while continuing the Zosyn. If the patient continues to do well off pressors we will downgrade today. Current vitals hypotensive blood pressures 87/53 heart rate of 92 respirations 24 temperature is 97.2 ?F oxygen saturation was 96% on room air Exam Vital Signs Temp Pulse Resp BP Pulse Ox O2 Del Method O2 Flow Rate 97 F 108 H 26 H 166/95 H 94 L Nasal Cannula 2 08/07/25 09:07 08/07/25 10:30 08/07/25 10:02 08/07/25 10:30 08/07/25 10:02 08/07/25 08:03 08/06/25 16:41 Narrative Exam Lines: x2 PIV, and R sided tunneled subclavian catheter - erythematous and pustulent Drains: none Tubes: none GENERAL: AOx1 (not aware of place or date) No apparent distress, lying comfortably in hospital bed, breathing comfortably, no obvious signs of discomfort. Requests food multiple times. HEENT: Atraumatic, normocephalic, PERRL, accommodation intact, mucous membranes dry CHEST: S3+, no murmurs, rubs, or gallops noted. Lungs no rhales, rhonchi. ABDOMEN: NBS, ND, soft, NTTP/superficially TTP (extremely tender to superficial palpation, no tenderness on deep palpation) Tim's negative EXTREMITIES: All pulses palpated +2, +2 pedal edema noted, L sided motor deficits, hand and feet flexed sensation intact, no neglect. BACK: No CVA tenderness, no bruises, rashes noted, spine has normal symmetry without stepoffs, bony tenderness or paraspinal muscle tenderness RECTUM: No blood noted to be in rectum on REZA. Stool in rectal vault yes. No signs of hemmorhoids or active bleeding. Objective Labs 08/08/25 05:00 08/08/25 05:00 Labs: Laboratory Results - last 24 hr 08/06/25 08/06/25 08/06/25 09:17 09:30 11:42 WBC RBC Hgb Hct MCV MCH MCHC RDW Std Deviation Plt Count Neut % (Auto) Lymph % (Auto) [place] % (Auto) Eos % (Auto) Baso % (Auto) Neut # (Auto) Lymph # (Auto) [place] # (Auto) Eos # (Auto) Baso # (Auto) Immature Gran # (Auto) Absolute Nucleated RBC Immature Gran % Nucleated RBC % Puncture Site Right Radial ABG pH 7.41 ABG pCO2 41 ABG pO2 96 ABG HCO3 26 ABG O2 Saturation 98 ABG Base Excess 1 FiO2 21 Sodium Potassium Chloride Carbon Dioxide Anion Gap BUN Creatinine Estim Creat Clear Calc eGFR BUN/Creatinine Ratio Glucose Estimated Ave Glu mg/dL 85 Hemoglobin A1c 4.6 L Calculated Osmolality Lactic Acid Calcium Corrected Calcium Phosphorus Magnesium Total Bilirubin AST ALT Alkaline Phosphatase Troponin I B-Natriuretic Peptide 1839 H* Total Protein Albumin Globulin Albumin/Globulin Ratio Triglycerides Ur Collection Type Clean Catch Urine Color Other A Urine Clarity Other A Urine pH 8.0 H Ur Specific [place] 1.015 Urine Protein 3+ A Urine Glucose (UA) Negative Urine Ketones Negative Urine Blood 3+ A Urine Nitrite Negative Urine Bilirubin Negative Urine Urobilinogen (Auto) 0.2 Ur Leukocyte Esterase 3+ A Urine RBC Urine WBC TNP Ur Squamous Epith Cells TNP Urine Bacteria TNP Ur Culture Indicated? Yes 08/06/25 08/06/25 08/06/25 11:53 13:13 17:54 WBC RBC Hgb Hct MCV MCH MCHC RDW Std Deviation Plt Count Neut % (Auto) Lymph % (Auto) [place] % (Auto) Eos % (Auto) Baso % (Auto) Neut # (Auto) Lymph # (Auto) [place] # (Auto) Eos # (Auto) Baso # (Auto) Immature Gran # (Auto) Absolute Nucleated RBC Immature Gran % Nucleated RBC % Puncture Site ABG pH ABG pCO2 ABG pO2 ABG HCO3 ABG O2 Saturation ABG Base Excess FiO2 Sodium 139 Potassium 5.2 H Chloride 101 Carbon Dioxide 24.0 Anion Gap 14 BUN 40 H Creatinine 3.8 H Estim Creat Clear Calc 21.3 L eGFR 13 L* BUN/Creatinine Ratio 11 L Glucose [address] Glu mg/dL Hemoglobin A1c Calculated Osmolality 291 Lactic Acid 1.6 Calcium 8.6 Corrected Calcium 9.0 Phosphorus 5.4 H Magnesium Total Bilirubin AST ALT Alkaline Phosphatase Troponin I 1.175 H* D B-Natriuretic Peptide Total Protein Albumin 3.5 Globulin Albumin/Globulin Ratio Triglycerides Ur Collection Type Urine Color Urine Clarity Urine pH Ur Specific [place] Urine Protein Urine Glucose (UA) Urine Ketones Urine Blood Urine Nitrite Urine Bilirubin Urine Urobilinogen (Auto) Ur Leukocyte Esterase Urine RBC Urine WBC Ur Squamous Epith Cells Urine Bacteria Ur Culture Indicated? 08/07/25 08/07/25 04:24 06:37 WBC 18.3 H RBC 3.66 L Hgb 11.5 L Hct 37.5 MCV 103 H MCH 31.4 MCHC 30.7 L RDW Std Deviation 56.0 H Plt Count 129 L Neut % (Auto) 88 H Lymph % (Auto) 5 L [place] % (Auto) 6 Eos % (Auto) 0 Baso % (Auto) 0 Neut # (Auto) 16.1 H Lymph # (Auto) 1.0 [place] # (Auto) 1.1 H Eos # (Auto) 0.0 Baso # (Auto) 0.1 Immature Gran # (Auto) 0.12 H Absolute Nucleated RBC 0.00 Immature Gran % 1 H Nucleated RBC % 0 Puncture Site Right Radial ABG pH 7.42 ABG pCO2 38 ABG pO2 71 L D ABG HCO3 25 ABG O2 Saturation 95 ABG Base Excess 0 FiO2 21 Sodium 140 Potassium 4.7 D Chloride 98 Carbon Dioxide 24.7 Anion Gap 17 H BUN 56 H Creatinine 4.2 H* Estim Creat Clear Calc 17.4 L eGFR 11 L* BUN/Creatinine Ratio [address] Glu mg/dL Hemoglobin A1c Calculated Osmolality 297 H Lactic Acid Calcium 9.1 Corrected Calcium 9.5 Phosphorus 5.6 H Magnesium 2.3 Total Bilirubin 0.6 AST 33 ALT 21 Alkaline Phosphatase 88 Troponin I B-Natriuretic Peptide Total Protein 7.2 Albumin 3.5 Globulin 3.7 H Albumin/Globulin Ratio 0.9 L Triglycerides 83 Ur Collection Type Urine Color Urine Clarity Urine pH Ur Specific [place] Urine Protein Urine Glucose (UA) Urine Ketones Urine Blood Urine Nitrite Urine Bilirubin Urine Urobilinogen (Auto) Ur Leukocyte Esterase Urine RBC Urine WBC Ur Squamous Epith Cells Urine Bacteria Ur Culture Indicated? ABG Interpretation ABG results: 08/06/25 08/07/25 11:42 04:24 ABG pH 7.41 7.42 ABG pCO2 41 38 ABG pO2 96 71 L D ABG HCO3 26 25 ABG O2 Saturation 98 95 ABG Base Excess 1 0 Quality Measures Quality Measures none Assessment & Plan Assessment Current Active Medications: Generic Name Dose Route Start Last Admin Trade Name Marysol PRN Reason Stop Dose Admin Acetaminophen 650 mg 08/06/25 15:58 Acetaminophen 325 Mg Tablet PO 09/05/25 15:57 Q6H PRN Fever >100.4 or pain 1-3 Hydrocodone Bitart/Acetaminophen 1 tab 08/06/25 15:58 Hydrocodone/Apap 5/325 Tablet PO 08/11/25 15:57 Q4HR PRN PAIN SCALE 4-6 (Moderate Amiodarone HCl 200 mg 08/07/25 09:35 08/07/25 09:38 Amiodarone Hcl 200 Mg Tablet PO 09/06/25 09:34 200 mg BID RIANNA Administration Dextrose 25 ml 08/06/25 16:07 Dextrose 50%-Water Inj 50 Ml Syringe IV 09/05/25 16:06 Q15MIN PRN BG 50-70 responsive npo pt Dextrose 50 ml 08/06/25 16:07 Dextrose 50%-Water Inj 50 Ml Syringe IV 09/05/25 16:06 Q15MIN PRN BG <50 OR BG <70 & pt unresponsive Docusate Sodium 100 mg 08/07/25 09:00 08/07/25 09:39 Docusate Sod 100 Mg Capsule PO 09/06/25 08:59 100 mg QDAY RIANNA Administration Protocol Glucagon 1 mg 08/06/25 16:07 Glucagon Inj 1 Mg Vial IM Q15MIN PRN BG <70, and no IV access Heparin Sodium (Porcine) 5,000 unit 08/06/25 16:15 08/07/25 05:14 Heparin Sod Inj 5000 Unit/Ml Vial SC 08/20/25 16:14 5,000 unit Q8HR RIANNA Administration Heparin Sodium (Porcine) 2,500 unit 08/07/25 10:06 08/07/25 10:17 Heparin Sod Inj 1000 Unit/Ml Vial 10 Ml IV 08/13/25 10:05 2,500 unit X1 PRN Administration DIALYSIS Norepinephrine/Dextrose 8 mg in 250 mls @ 10.631 mls/hr 08/06/25 11:14 08/07/25 02:00 Levophed In D5w 8mg/250ml IV 09/05/25 11:13 0 mcg/kg/min .[id number] PRN 0 mls/hr PER PROTOCOL Titration Protocol 0.05 MCG/KG/MIN Piperacillin/Tazobactam/Dextrose 3.375 gm in 50 mls @ 100 mls/hr 08/06/25 16:06 08/07/25 05:10 Zosyn IV 08/13/25 16:05 100 mls/hr Q8HR RIANNA Administration Protocol Vancomycin HCl 2,000 mg/ 500 mls @ 150 mls/hr 08/07/25 08:25 Sodium Chloride IV 08/07/25 11:44 X1 ONE Albumin Human 25 gm in 100 mls @ 100 mls/min 08/07/25 09:32 08/07/25 09:38 Albuminex 25% Ivpb IV Infused PRN PRN Infusion DIALYSIS Insulin Human Lispro 0 unit 08/06/25 18:00 08/07/25 06:01 Insulin Lispro (Admelog) 1 Unit/0.01 Ml Unit SC 09/05/25 17:59 Not Given Q6HR RIANNA Protocol Levothyroxine Sodium 50 mcg 08/08/25 06:00 Levothyroxine Sodium 25 Mcg Tablet PO 09/07/25 05:59 ACBR RIANNA Midodrine 10 mg 08/07/25 09:40 08/07/25 09:39 Midodrine 5 Mg Tablet PO 09/06/25 09:39 10 mg Q6HR RIANNA Administration Morphine Sulfate 1 mg 08/06/25 15:58 Morphine Sulf Inj 4 Mg/Ml Vial IVP 08/11/25 15:57 Q4HR PRN PAIN SCALE 7-10 (Severe Ondansetron HCl 4 mg 08/06/25 15:58 Ondansetron Inj 2 Mg/Ml Inj 2 Ml IVP 09/05/25 15:57 Q6H PRN NAUSEA OR VOMITING Protocol Pharmacy Consult 1 each 08/07/25 09:00 Vancomycin Pharmacy To Dose 1 Each Each IV 09/06/25 08:59 QDAY PRN SEPSIS Plan A 64-year-old female with a medical history significant for 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 Landry, and a history of staghorn calculi, was transferred to the emergency department from a nursing facility after staff found her to be lethargic, hypotensive, and with fever. Patient admitted for sepsis workup. She is off pressors today, if she tolerates dialysis without needing pressor support will be good to downgrade. She has 2/2 blood cx with GPC continuing vanc and zosyn until MRSA screen comes back negative. Dialysis plans to remove 2-3L of fluid. 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 back at baseline CV #Shock - resolved Most likely septic as evidenced by GPC 2/2 blood cx DDx: Distributive or cardiogenic at this time. Patient does have HFrEF, wall motion abnormalities and ejection fraction of 20-25%. However if there is a source of infection in the urine and patient does have signs of infection and urinalysis, will wait for urine culture. Will need to use NICOM for further evaluation. Patient was not found to have cardiac tamponade and pulmonary embolus not seen on imaging. Has history of recurrent UTIs. Will follow up with ECHO to rule out valvular vegetations. Repeat blood cx ordered. Dx: CBC, blood cultures, U/C, ECHO, repeat blood cx Rx: IV Levophed (DC'd 08/07), IV Zosyn #Chronic A-fib [id number]: 5 Rate: Irregularly Irregular Rhythm: Controlled Plan: ? Telemetry ? Diltiazem drip (DC'd 08/07) - Now on Amio 200mg BID (08/07) ? Keep magnesium 1.6-1.8 ? Keep Potassium 3.6-3.8 #NSTEMI type II, likely related to demand ischemia, resolved Pulmonary: Stable Gastrointestinal: Stable Nephrology: #End-stage renal disease #Electrolyte abnormalities #Hyperphosphatemia DDx:ATN, Prerenal, Post Dx: U/A Rx: Continuing hemodialysis schedule, Avoid nephrotoxic agents, renally dose medicines -2-3 L removed 08/07 Hematology: #Leukocytosis - resolving DDx: Infectious, stress related --> Most liekly infectious as GPC 2/2 cx and subclavian catheter appears to have infection with pustulent drainage. Dx: CBC, Blood cultures Rx: Treat underlying problem RRX: If infection is not treated #Macrocytosis Rx FUP B12 folate Endocrine: #Hx of hypothyroidism Dx: TSH Rx: Resumed home thyroid medicine Infectious Disease: #Sepsis Sepsis due to 3/4 SIRS criteria with acute sepsis-related organ dysfunction as evidence by ARIANA, Fever, Leukocytosis, Tachycardia 1L fluid bolus because of concern with HFrEF SOFA: 4 Plan: DDx: Urine infection, intra-abdominal infection Dx: BC, Urine Cultures Rx: IV Zosyn and vancomycin, Follow up cultures Derm: #R Tunneled subclavian catheter infection Erythematous and pustulent drainage. Dx: wound cultures Rx continue zosyn and vancomycin #Pressure ulcers Scaral and decubitous ulcer and lateral leg ulcers. Do not appear cellulitic, more granulotamous. Ankle has a purulent base with oozing without cellultic changes. Rx: Continue to monitor, wound care referral placed #ICU Health maintenance Mechanical ventilation: No Sedation: No Diet: Full DVT prophylaxis: Heparin GI prophylaxis: None Turner: No Lines: PIV Antibiotics: IV Zosyn and vancomycin CODE STATUS: Full Patient examined and plan discussed with attending Dr. Ervin and supervising resident Dr. Azul. Note Written by Hang Figueroa PGY-1 Attending Provider Attestation/Addendum Patient seen and examined, discussed with resident team. In brief this is a 64-year-old female who was admitted to the ICU for septic shock. She has been weaned off of her vasopressors and is maintaining a decent blood pressure. She is awake alert and oriented. Her lethargy has significantly improved. This morning the dialysis nurse reported some purulent drainage from her HD site. This was sent for cultures. Her blood cultures are noted to be positive and repeats have been sent. She is on appropriate antibiotics. Nephrology was updated regarding the catheter and the dialysis catheter will be removed with IR tomorrow. The patient will have a line holiday. There is no significant change in her physical exam. Case discussed with ICU team Labs, imaging and records reviewed Approximately 35 minutes required for evaluation, exam, review, intervention, discussion of formulation of plan of care
[2025-08-07 10:58] LABS: INR 1.3 (0.9-1.3); Partial Thromboplastin Time 44.1 Seconds (22.0-36.0); Prothrombin Time 13.3 Seconds (9.0-12.2)
[2025-08-07] MEDS: Vancomycin Inj 2,000 MG in SODIUM CHLORIDE 0.9% 500 ML 500 ML 150 MG IV (11:49)
[2025-08-07] MEDS: HYDROcodone/APAP 5/325 TABLET 1 TAB PO (11:49)
[2025-08-07] MEDS: HEPARIN SOD INJ 1000 UNIT/ML VIAL 10 ML 3300 UNIT INDWELLCAT (11:52)
--- NOTE | 2025-08-07 15:01 | ESPR_ITS ---
<Statement entered by Jonatan Kimble MD - 08/07/25 16:17> I saw and examined patient personally and supervised PGY 1 resident, Dr. Evans with formulating a management plan. I agree with the documentation with the exceptions as listed below. Patient was initially admitted to the ICU for septic shock secondary to likely infected right subclavian dialysis catheter. Blood cultures from 08/06 grew GPC preliminary, repeat cultures were ordered today. On Zosyn, renally dosed and vancomycin IV for bacteremia pending speciation of blood cultures and MRSA swab. Patient scheduled for IR guided placement of permanent dialysis catheter on 08/08 and removal of right subclavian catheter. Nephrology, Dr Landry consulted. Appreciate recommendation Plan of care discussed with Attending Dr. Marci Kimble MD PGY 2 Disclaimer: This note was dictated by speech recognition. Minor errors in nursing specialist may be present due to voice recognition software. Documentation for date of: 08/07/25 Subjective Subjective Interval history: Patient seen and examined at bedside; no acute events overnight. ICU stopped norepinephrine, switched diltiazem drip to home amiodarone, and got her to dialysis. Patient is stable per ICU for downgrade to floors as she has been stable off the norepi. Patient is less confused today, and wants to go home. Exam Vital Signs Temp Pulse Resp BP Pulse Ox O2 Del Method O2 Flow Rate 97 F 123 H 21 H 156/97 H 94 L Room Air 2 08/07/25 12:41 08/07/25 14:00 08/07/25 14:00 08/07/25 14:00 08/07/25 14:00 08/07/25 12:01 08/07/25 12:41 Narrative Exam General: A/O x2 (not aware of place), no acute distress, Eyes: PERRL, EOMI. Anicteric, vision grossly intact. Ears: No ear pain, no ear discharge, Hearing grossly intact. Nose: No nasal discharge. Mouth/Throat: Moist mucous membranes, no redness, no lesions. Neck: Neck supple, non-tender, no cervical lymphadenopathy. Lungs: Clear PAULA to auscultation and percussion, No accessory muscle use. Cardio: S3, regular rhythm, no murmurs, no JVD or carotid bruits. Abdomen: Soft, non-tender, no palpable masses, peristalsis present, no guarding or rebound. Extremities: Symmetrical, no significant deformities, no peripheral edema , non-tender, peripheral pulses present. Skin: No rashes, no lesions, warm to touch. No wounds on back. Infected r permanent renal dialysis catheter. L ankle pressure ulcer. Neuro: No focal neurological deficits. Psych: Cooperative, appropriate mood and effect. Objective Labs 08/08/25 05:00 08/08/25 05:00 Labs: Laboratory Results - last 24 hr 08/06/25 08/07/25 08/07/25 17:54 04:24 06:37 WBC 18.3 H RBC 3.66 L Hgb 11.5 L Hct 37.5 MCV 103 H MCH 31.4 MCHC 30.7 L RDW Std Deviation 56.0 H Plt Count 129 L Neut % (Auto) 88 H Lymph % (Auto) 5 L Cecil % (Auto) 6 Eos % (Auto) 0 Baso % (Auto) 0 Neut # (Auto) 16.1 H Lymph # (Auto) 1.0 Cecil # (Auto) 1.1 H Eos # (Auto) 0.0 Baso # (Auto) 0.1 Immature Gran # (Auto) 0.12 H Absolute Nucleated RBC 0.00 Immature Gran % 1 H Nucleated RBC % 0 PT INR APTT Puncture Site Right Radial ABG pH 7.42 ABG pCO2 38 ABG pO2 71 L D ABG HCO3 25 ABG O2 Saturation 95 ABG Base Excess 0 FiO2 21 Sodium 139 140 Potassium 5.2 H 4.7 D Chloride 101 98 Carbon Dioxide 24.0 24.7 Anion Gap 14 17 H BUN 40 H 56 H Creatinine 3.8 H 4.2 H* Estim Creat Clear Calc 21.3 L 17.4 L eGFR 13 L* 11 L* BUN/Creatinine Ratio 11 L 13 Glucose 165 H D 160 H Calculated Osmolality 291 297 H Calcium 8.6 9.1 Corrected Calcium 9.0 9.5 Phosphorus 5.4 H 5.6 H Magnesium 2.3 Total Bilirubin 0.6 AST 33 ALT 21 Alkaline Phosphatase 88 Total Protein 7.2 Albumin 3.5 3.5 Globulin 3.7 H Albumin/Globulin Ratio 0.9 L Triglycerides 83 08/07/25 09:29 WBC RBC Hgb Hct MCV MCH MCHC RDW Std Deviation Plt Count Neut % (Auto) Lymph % (Auto) Cecil % (Auto) Eos % (Auto) Baso % (Auto) Neut # (Auto) Lymph # (Auto) Cecil # (Auto) Eos # (Auto) Baso # (Auto) Immature Gran # (Auto) Absolute Nucleated RBC Immature Gran % Nucleated RBC % PT 13.3 H INR 1.3 APTT 44.1 H Puncture Site ABG pH ABG pCO2 ABG pO2 ABG HCO3 ABG O2 Saturation ABG Base Excess FiO2 Sodium Potassium Chloride Carbon Dioxide Anion Gap BUN Creatinine Estim Creat Clear Calc eGFR BUN/Creatinine Ratio Glucose Calculated Osmolality Calcium Corrected Calcium Phosphorus Magnesium Total Bilirubin AST ALT Alkaline Phosphatase Total Protein Albumin Globulin Albumin/Globulin Ratio Triglycerides ABG Interpretation ABG results: 08/06/25 08/07/25 11:42 04:24 ABG pH 7.41 7.42 ABG pCO2 41 38 ABG pO2 96 71 L D ABG HCO3 26 25 ABG O2 Saturation 98 95 ABG Base Excess 1 0 Quality Measures Quality Measures none Assessment & Plan Assessment Current Active Medications: Generic Name Dose Route Start Last Admin Trade Name Freq PRN Reason Stop Dose Admin Acetaminophen 650 mg 08/06/25 15:58 Acetaminophen 325 Mg Tablet PO 09/05/25 15:57 Q6H PRN Fever >100.4 or pain 1-3 Hydrocodone Bitart/Acetaminophen 1 tab 08/06/25 15:58 08/07/25 11:49 Hydrocodone/Apap 5/325 Tablet PO 08/11/25 15:57 1 tab Q4HR PRN Administration PAIN SCALE 4-6 (Moderate Amiodarone HCl 200 mg 08/07/25 09:35 08/07/25 09:38 Amiodarone Hcl 200 Mg Tablet PO 09/06/25 09:34 200 mg BID RIANNA Administration Dextrose 25 ml 08/06/25 16:07 Dextrose 50%-Water Inj 50 Ml Syringe IV 09/05/25 16:06 Q15MIN PRN BG 50-70 responsive npo pt Dextrose 50 ml 08/06/25 16:07 Dextrose 50%-Water Inj 50 Ml Syringe IV 09/05/25 16:06 Q15MIN PRN BG <50 OR BG <70 & pt unresponsive Docusate Sodium 100 mg 08/07/25 09:00 08/07/25 09:39 Docusate Sod 100 Mg Capsule PO 09/06/25 08:59 100 mg QDAY RIANNA Administration Protocol Glucagon 1 mg 08/06/25 16:07 Glucagon Inj 1 Mg Vial IM Q15MIN PRN BG <70, and no IV access Heparin Sodium (Porcine) 5,000 unit 08/06/25 16:15 08/07/25 14:39 Heparin Sod Inj 5000 Unit/Ml Vial SC 08/20/25 16:14 5,000 unit Q8HR RIANNA Administration Heparin Sodium (Porcine) 2,500 unit 08/07/25 10:06 08/07/25 10:17 Heparin Sod Inj 1000 Unit/Ml Vial 10 Ml IV 08/13/25 10:05 2,500 unit X1 PRN Administration DIALYSIS Heparin Sodium (Porcine) 3,300 unit 08/07/25 11:50 08/07/25 11:52 Heparin Sod Inj 1000 Unit/Ml Vial 10 Ml INDWELLCAT 08/21/25 11:49 3,300 unit X1 PRN Administration DIALYSIS Piperacillin/Tazobactam/Dextrose 3.375 gm in 50 mls @ 100 mls/hr 08/06/25 16:06 08/07/25 14:40 Zosyn IV 08/13/25 16:05 100 mls/hr Q8HR RIANNA Administration Protocol Albumin Human 25 gm in 100 mls @ 100 mls/min 08/07/25 09:32 08/07/25 09:38 Albuminex 25% Ivpb IV Infused PRN PRN Infusion DIALYSIS Insulin Human Lispro 0 unit 08/06/25 18:00 08/07/25 11:48 Insulin Lispro (Admelog) 1 Unit/0.01 Ml Unit SC 09/05/25 17:59 Not Given Q6HR [facility] Protocol Levothyroxine Sodium 50 mcg 08/08/25 06:00 Levothyroxine Sodium 25 Mcg Tablet PO 09/07/25 05:59 ACBR [facility] Midodrine 10 mg 08/07/25 09:40 08/07/25 12:58 Midodrine 5 Mg Tablet PO 09/06/25 09:39 Not Given Q6HR [facility] Morphine Sulfate 1 mg 08/06/25 15:58 Morphine Sulf Inj 4 Mg/Ml Vial IVP 08/11/25 15:57 Q4HR PRN PAIN SCALE 7-10 (Severe Ondansetron HCl 4 mg 08/06/25 15:58 Ondansetron Inj 2 Mg/Ml Inj 2 Ml IVP 09/05/25 15:57 Q6H PRN NAUSEA OR VOMITING Protocol Pharmacy Consult 1 each 08/07/25 09:00 Vancomycin Pharmacy To Dose 1 Each Each IV 09/06/25 08:59 QDAY PRN SEPSIS Plan 64-year-old female with PMH of 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 Landry, and a history of staghorn calculi, was transferred to the emergency department from a nursing facility after staff found her to be lethargic, hypotensive, and with fever. Patient admitted to ICU for sepsis workup and downgraded to floors on 08/07/25. #Septic shock (resolving) secondary to #Sepsis (resolving) caused by #Dialysis catheter infection #NSTEMI type II 1/ blood cultures 08/06/25 positive for GPCs 08/06/25 UCx pending 08/06/25- Troponin peaked 1.423, then fell to 1.175 Plan: IV pip-tazo and vanomycin Awaiting echo read Remove old dialysis catheter and place new one 08/08/25 New set of blood cultures taken 08/07/25, awaiting results #End-stage renal disease on dialysis (T/T/F) #Electrolyte abnormalities #Hyperphosphatemia 2-3 L removed 08/07 Plan: Hemodialysis (T/T/F) Avoid nephrotoxic agents, renally dose medicines #A-fib [id number]: 5 Patient has history of A-fib. Plan: ? Monitor EKG - Amiodarone 200 BID - K > 4, Mg > 2 #Pressure ulcers Scaral and decubitous ulcer and lateral leg ulcers. Do not appear cellulitic, more granulotamous. Ankle has a purulent base with oozing without cellultic changes. Plan: Continue to monitor, wound care referral placed #Hypothyroidism Patient has history of hypothyroidism. Plan: Restart home levothyroxine 50mcg #Hx of CVA, residual L-sided hemiplegia Stable Disposition: Med-Surg DVT prophylaxis: heparin 5000 units subq q8h being held at midngiht for procedure GI prophylaxis: Diet: NPO after midnight Lines: PIV, dialysis cathether CODE STATUS: Full code This case was discussed with my attending physician, Dr. Covarrubias, and senior resident, Dr. Kimble. Rom Evans, PGY1 Attending Provider Attestation/Addendum I have discussed and was present for the essential components of the history, physical examination, diagnosis, and treatment plan with the resident. I agree with the patient's care as documented by the resident and amended herein by me. Iam Covarrubias, DO. Although this document has been carefully reviewed, there may still be some phonetic and other typographical errors. These errors are purely grammatical due to imperfections in the software program and should not be construed in any way to compromise the substance of the patient's medical care during this visit.
[2025-08-07 15:39] LABS: Vancomycin,Random > 50.0 mcg/mL
[2025-08-07 21:04] LABS: Folate > 24.00 ng/mL (>5.38); Vitamin B12 207 pg/mL (211-911)
[2025-08-08] VITALS (35 sets, daily range): BP systolic 84–144; BP diastolic 49–85; PULSE 52–96; RESP 16–96; TEMP 36.4–36.9; O2SAT 94–98
[2025-08-08] MEDS: MELATONIN 3 MG TABLET 6 MG PO (00:40)
[2025-08-08] MEDS: MIDODRINE 5 MG TABLET 10 MG PO ×5 (00:40→23:46)
[2025-08-08] MEDS: LEVOTHYROXINE SODIUM 25 MCG TABLET 50 MCG PO (05:21)
[2025-08-08] MEDS: PIPER/TAZO 3.375 GM PREMIX 3.375 GM/50 ML BAG IV (05:21)
[2025-08-08 06:14] LABS: Basophils # (Auto) 0.1 Thou/mm3 (0.0-0.2); Basophils % (Auto) 0 % (0-2.5); Eosinophils # (Auto) 0.0 Thou/mm3 (0.0-0.5); Eosinophils % (Auto) 0 % (0-10); Hematocrit 32.0 % (36.0-46.0); Hemoglobin 9.8 g/dL (12.0-16.0); Immature Granulocytes Auto 0.23 Thou/mm3 (0.00-0.00); Lymphocytes # (Auto) 1.6 Thou/mm3 (1.0-4.8); Lymphocytes % (Auto) 7 % (10-50); Mean Corpuscular HGB Conc 30.6 g/dl (31.0-37.0); Mean Corpuscular Hemoglobin 30.9 pg (25.0-35.0); Mean Corpuscular Volume 101 fL (80-100); Monocytes # (Auto) 1.9 Thou/mm3 (0.0-0.8); Monocytes % (Auto) 8 % (0-12); Neutrophils # (Auto) 19.7 Thou/mm3 (1.8-7.7); Neutrophils % (Auto) 84 % (37-80); Nucleated Red Blood Cell # 0.00 Thou/mm3 (0.00-0.00); Nucleated Red Blood Cell % 0 /100 WBC (0); Platelet Count 112 Thou/mm3 (140-440); RDW Standard Deviation 56.8 fL (36.4-46.3); Red Blood Count 3.17 Miln/mm3 (4.00-5.20); White Blood Count 23.4 Thou/mm3 (3.6-11.0)
[2025-08-08 06:39] LABS: INR 1.1 (0.9-1.3); Partial Thromboplastin Time 38.1 Seconds (22.0-36.0); Prothrombin Time 11.4 Seconds (9.0-12.2)
--- NOTE | 2025-08-08 07:00 | XR_ITS ---
EXAM: Fluoroscopic assisted removal of right IJ central venous catheter. INDICATION: Infection. DATE: 08/08/2025, 1:53 p.m. Fluoroscopy time: 0.1-minute Dose: 1.96 mGy PROCEDURE: After discussion of risks and benefits informed consent was obtained. The patient was brought to the angiography suite and placed supine on the exam table. Preliminary fluoroscopic evaluation showed a right IJ central venous catheter in place with the cuff exposed. The overlying skin was cleaned and draped in normal sterile surgical fashion. 10 cc of 1% lidocaine was used for local anesthesia. Catheter was removed with gentle traction. Pressure was held over the right IJ access site for 5 minutes. Hemostasis was achieved. The access site was covered with a sterile dressing. There were no immediate complications. IMPRESSION: Successful fluoroscopic guided removal of right IJ central venous catheter as above.
[2025-08-08 07:24] LABS: Hepatitis A Antibody IgM Non Reactive (Non React); Hepatitis B Core Antibody IgM Non Reactive (Non React); Hepatitis B Surface Ab NonReact(Not Immune) (Immune); Hepatitis B Surface Antigen Non Reactive (Non React); Hepatitis C Antibody Non Reactive (Non React)
[2025-08-08] MEDS: ALBUMIN HUMAN-KJDA 25% IVPB 25 GM/100 ML BTL IV (07:47)
[2025-08-08 07:54] LABS: Alanine Aminotransferase 23 U/L (10-49); Albumin, Serum 3.4 gm/dL (3.4-4.8); Albumin/Globulin Ratio 1.1 (1.2-2.2); Alkaline Phosphatase 94 U/L (46-116); Anion Gap 16 (7-16); Aspartate Amino Transferase 35 U/L (0-34); BUN/Creatinine Ratio 12 Ratio (12-20); Bilirubin,Total 0.6 mg/dL (0.3-1.2); Blood Urea Nitrogen 36 mg/dL (9-23); Calcium 8.9 mg/dL (8.3-10.6); Calcium (Corrected) 9.4 mg/dL (8.5-10.1); Carbon Dioxide 25.0 mMol/L (20.0-31.0); Chloride 100 mMol/L (98-107); Creatinine (Component) 3.1 mg/dL (0.6-1.3); Estimated Creatinine Clearance 23.6 mL/min (>60); Globulin 3.1 gm/dL (2.3-3.5); Glucose 124 mg/dL (74-106); Magnesium 2.0 mg/dL (1.6-2.6); Osmolality,Calculated 290 (275-295); Phosphorous 4.0 mg/dL (2.4-5.1); Potassium 4.2 mMol/L (3.4-5.1); Sodium 141 mMol/L (136-145); Total Protein 6.5 gm/dL (5.7-8.2); Triglycerides 85 mg/dL (30-150); eGFR 16 See Note
[2025-08-08 08:19] LABS: Vancomycin,Random 51.1 mcg/mL
--- NOTE | 2025-08-08 09:00 | XR_ITS ---
EXAMINATION: AP chest single view TECHNIQUE: AP portable semiupright chest single view Date and time: August 08, 2025, 0554 hours, comparison August 07, 2025 INDICATIONS: Wheezing today. FINDINGS: Mild heart failure Mild enlargement cardiac contour Ectatic enlarged thoracic aorta Right internal jugular temporary dialysis catheter SVC Prominent vascular congestion with 30 septal edema at the lung bases IMPRESSION: Mild heart failure
[2025-08-08] MEDS: EPOETIN ALFA-EPBX INJ 10,000 UNIT/ML VIAL (NON-ESRD) 10000 UNIT IV (09:19)
--- NOTE | 2025-08-08 09:30 | PD.IDPROG ---
Subjective Subjective Interval history: bc with gpc. line to be removed. on floor now. echo done but not yet read officially. i saw her last in 2019. cva was present then Exam Vital Signs Temp Pulse Resp BP Pulse Ox O2 Del Method O2 Flow Rate 97.8 F 73 18 104/51 L 97 Room Air 2 08/08/25 07:15 08/08/25 09:15 08/08/25 07:15 08/08/25 09:15 08/08/25 07:15 08/08/25 04:00 08/07/25 12:41 Narrative Exam L leg ulcer distally, immobile on L side. imaging of L leg noted. line in rt chest to be removed. Objective - Internal Medicine Labs 08/08/25 05:00 08/08/25 05:00 Labs: Laboratory Results - last 24 hr 08/07/25 08/07/25 08/08/25 09:29 14:20 05:00 WBC 23.4 H D RBC 3.17 L Hgb 9.8 L Hct 32.0 L MCV 101 H MCH 30.9 MCHC 30.6 L RDW Std Deviation 56.8 H Plt Count 112 L Neut % (Auto) 84 H Lymph % (Auto) 7 L Garfield % (Auto) 8 Eos % (Auto) 0 Baso % (Auto) 0 Neut # (Auto) 19.7 H Lymph # (Auto) 1.6 Garfield # (Auto) 1.9 H Eos # (Auto) 0.0 Baso # (Auto) 0.1 Immature Gran # (Auto) 0.23 H Absolute Nucleated RBC 0.00 Immature Gran % 1 H Nucleated RBC % 0 PT 13.3 H 11.4 INR 1.3 1.1 APTT 44.1 H 38.1 H Sodium 141 Potassium 4.2 D Chloride 100 Carbon Dioxide 25.0 Anion Gap 16 BUN 36 H Creatinine 3.1 H D Estim Creat Clear Calc 23.6 L eGFR 16 L BUN/Creatinine Ratio 12 Glucose 124 H Calculated Osmolality 290 Calcium 8.9 Corrected Calcium 9.4 Phosphorus 4.0 Magnesium 2.0 Total Bilirubin 0.6 AST 35 H ALT 23 Alkaline Phosphatase 94 Total Protein 6.5 Albumin 3.4 Globulin 3.1 Albumin/Globulin Ratio 1.1 L Triglycerides 85 Vitamin B12 207 L Folate > 24.00 Random Vancomycin > 50.0 51.1 Hepatitis A IgM Ab Non Reactive Hep Bs Antigen Non Reactive Hep Bs Antibody NonReact(Not Immune) L Hep B Core IgM Ab Non Reactive Hepatitis C Antibody Non Reactive ABG Interpretation ABG results: 08/06/25 08/07/25 11:42 04:24 ABG pH 7.41 7.42 ABG pCO2 41 38 ABG pO2 96 71 L D ABG HCO3 26 25 ABG O2 Saturation 98 95 ABG Base Excess 1 0 Assessment & Plan A&P Narrative bacteremia vs contamination. she was quite ill before so assumed to be real. bc slow to clear du noted in 2019. sacral, resolved per pt. [place] residence noted large staghorn calculus noted by renal hd since april 2025 dm II chf, severe will see again on fri. needs bc neg at 48h to have new line/access. no riccardo osteo L leg by imaging. Time Spent With Patient Time: Total time spent is greater than 50% in coordination of care (as documented) at patient's floor/unit and/or counseling patient:
--- NOTE | 2025-08-08 09:55 | PD.RESPRO ---
Documentation for date of: 08/08/25 Subjective Subjective Interval history: Patient seen and examined at bedside; no acute events overnight. Got dialysis today. IR stated they will remove infected catheter, then will wait for 48 hours after the blood culture is negative, before placing new one. Exam Vital Signs Temp Pulse Resp BP Pulse Ox O2 Del Method O2 Flow Rate 97.8 F 63 18 117/74 97 Room Air 2 08/08/25 07:15 08/08/25 09:30 08/08/25 07:15 08/08/25 09:30 08/08/25 07:15 08/08/25 04:00 08/07/25 12:41 Narrative Exam General: A/O x2 (not aware of place), no acute distress, Eyes: PERRL, EOMI. Anicteric, vision grossly intact. Ears: No ear pain, no ear discharge, Hearing grossly intact. Nose: No nasal discharge. Mouth/Throat: Moist mucous membranes, no redness, no lesions. Neck: Neck supple, non-tender, no cervical lymphadenopathy. Lungs: Clear PAULA to auscultation and percussion, No accessory muscle use. Cardio: S3, regular rhythm, no murmurs, no JVD or carotid bruits. Abdomen: Soft, non-tender, no palpable masses, peristalsis present, no guarding or rebound. Extremities: Symmetrical, no significant deformities, no peripheral edema , non-tender, peripheral pulses present. Skin: No rashes, no lesions, warm to touch. No wounds on back. Infected r permanent renal dialysis catheter. L ankle pressure ulcer. Neuro: No focal neurological deficits. Psych: Cooperative, appropriate mood and effect. Objective Labs 08/08/25 05:00 08/08/25 05:00 Labs: Laboratory Results - last 24 hr 08/07/25 08/07/25 08/08/25 09:29 14:20 05:00 WBC 23.4 H D RBC 3.17 L Hgb 9.8 L Hct 32.0 L MCV 101 H MCH 30.9 MCHC 30.6 L RDW Std Deviation 56.8 H Plt Count 112 L Neut % (Auto) 84 H Lymph % (Auto) 7 L Gage % (Auto) 8 Eos % (Auto) 0 Baso % (Auto) 0 Neut # (Auto) 19.7 H Lymph # (Auto) 1.6 Gage # (Auto) 1.9 H Eos # (Auto) 0.0 Baso # (Auto) 0.1 Immature Gran # (Auto) 0.23 H Absolute Nucleated RBC 0.00 Immature Gran % 1 H Nucleated RBC % 0 PT 13.3 H 11.4 INR 1.3 1.1 APTT 44.1 H 38.1 H Sodium 141 Potassium 4.2 D Chloride 100 Carbon Dioxide 25.0 Anion Gap 16 BUN 36 H Creatinine 3.1 H D Estim Creat Clear Calc 23.6 L eGFR 16 L BUN/Creatinine Ratio 12 Glucose 124 H Calculated Osmolality 290 Calcium 8.9 Corrected Calcium 9.4 Phosphorus 4.0 Magnesium 2.0 Total Bilirubin 0.6 AST 35 H ALT 23 Alkaline Phosphatase 94 Total Protein 6.5 Albumin 3.4 Globulin 3.1 Albumin/Globulin Ratio 1.1 L Triglycerides 85 Vitamin B12 207 L Folate > 24.00 Random Vancomycin > 50.0 51.1 Hepatitis A IgM Ab Non Reactive Hep Bs Antigen Non Reactive Hep Bs Antibody NonReact(Not Immune) L Hep B Core IgM Ab Non Reactive Hepatitis C Antibody Non Reactive ABG Interpretation ABG results: 08/06/25 08/07/25 11:42 04:24 ABG pH 7.41 7.42 ABG pCO2 41 38 ABG pO2 96 71 L D ABG HCO3 26 25 ABG O2 Saturation 98 95 ABG Base Excess 1 0 Quality Measures Quality Measures none Assessment & Plan Assessment Current Active Medications: Generic Name Dose Route Start Last Admin Trade Name Freq PRN Reason Stop Dose Admin Acetaminophen 650 mg 08/06/25 15:58 Acetaminophen 325 Mg Tablet PO 09/05/25 15:57 Q6H PRN Fever >100.4 or pain 1-3 Hydrocodone Bitart/Acetaminophen 1 tab 08/06/25 15:58 08/07/25 11:49 Hydrocodone/Apap 5/325 Tablet PO 08/11/25 15:57 1 tab Q4HR PRN Administration PAIN SCALE 4-6 (Moderate Amiodarone HCl 200 mg 08/07/25 09:35 08/07/25 21:33 Amiodarone Hcl 200 Mg Tablet PO 09/06/25 09:34 200 mg BID RIANNA Administration Dextrose 25 ml 08/06/25 16:07 Dextrose 50%-Water Inj 50 Ml Syringe IV 09/05/25 16:06 Q15MIN PRN BG 50-70 responsive npo pt Dextrose 50 ml 08/06/25 16:07 Dextrose 50%-Water Inj 50 Ml Syringe IV 09/05/25 16:06 Q15MIN PRN BG <50 OR BG <70 & pt unresponsive Docusate Sodium 100 mg 08/07/25 09:00 08/07/25 09:39 Docusate Sod 100 Mg Capsule PO 09/06/25 08:59 100 mg QDAY RIANNA Administration Protocol Glucagon 1 mg 08/06/25 16:07 Glucagon Inj 1 Mg Vial IM Q15MIN PRN BG <70, and no IV access Heparin Sodium (Porcine) 5,000 unit 08/06/25 16:15 08/07/25 21:24 Heparin Sod Inj 5000 Unit/Ml Vial SC 08/20/25 16:14 5,000 unit On Hold: 08/08/25 00:00 Q8HR RIANNA Administration Heparin Sodium (Porcine) 2,500 unit 08/07/25 10:06 08/07/25 10:17 Heparin Sod Inj 1000 Unit/Ml Vial 10 Ml IV 08/13/25 10:05 2,500 unit X1 PRN Administration DIALYSIS Heparin Sodium (Porcine) 3,300 unit 08/07/25 11:50 08/07/25 11:52 Heparin Sod Inj 1000 Unit/Ml Vial 10 Ml INDWELLCAT 08/21/25 11:49 3,300 unit X1 PRN Administration DIALYSIS Hydromorphone HCl 0.5 mg 08/07/25 15:36 Hydromorphone Inj 2 Mg/Ml Vial IVP 08/12/25 15:35 Q4HR PRN PAIN SCALE 7-10 (Severe) Albumin Human 25 gm in 100 mls @ 100 mls/min 08/07/25 09:32 08/08/25 07:48 Albuminex 25% Ivpb IV Infused PRN PRN Infusion DIALYSIS Insulin Human Lispro 0 unit 08/06/25 18:00 08/08/25 06:05 Insulin Lispro (Admelog) 1 Unit/0.01 Ml Unit SC 09/05/25 17:59 Not Given Q6HR [facility] Protocol Levothyroxine Sodium 50 mcg 08/08/25 06:00 08/08/25 05:21 Levothyroxine Sodium 25 Mcg Tablet PO 09/07/25 05:59 50 mcg ACBR RIANNA Administration Midodrine 10 mg 08/07/25 09:40 08/08/25 05:21 Midodrine 5 Mg Tablet PO 09/06/25 09:39 10 mg Q6HR RIANNA Administration Ondansetron HCl 4 mg 08/06/25 15:58 Ondansetron Inj 2 Mg/Ml Inj 2 Ml IVP 09/05/25 15:57 Q6H PRN NAUSEA OR VOMITING Protocol Pharmacy Consult 1 each 08/07/25 09:00 Vancomycin Pharmacy To Dose 1 Each Each IV 09/06/25 08:59 QDAY PRN SEPSIS Plan 64-year-old female with PMH of 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 Landry, and a history of staghorn calculi, was transferred to the emergency department from a nursing facility after staff found her to be lethargic, hypotensive, and with fever. Patient admitted to ICU for sepsis workup and downgraded to floors on 08/07/25. #Septic shock (resolving) secondary to #Sepsis (resolving) caused by #Dialysis catheter infection #NSTEMI type II / blood cultures 08/06/25 positive for GPCs 08/06/25 UCx pending 08/06/25- Troponin peaked 1.423, then fell to 1.175 08/07/25 cultures negative at 24 hours Plan: IV vancomycin Awaiting echo read Remove old dialysis catheter 08/08/25; place new catheter 08/09/25 New set of blood cultures taken 08/07/25 and 08/08/25, awaiting results ID consulted, thank you for recs- vancomycin alone, B12 tablet daily #End-stage renal disease on dialysis (T/T/F) #Electrolyte abnormalities #Hyperphosphatemia Had dialysis today Plan: Hemodialysis (T/T/F) Avoid nephrotoxic agents, renally dose medicines Exchange catheter as above #A-fib [id number]: 5 Patient has history of A-fib. Plan: ? Monitor EKG - Amiodarone 200 BID - K > 4, Mg > 2 #Pressure ulcers Scaral and decubitous ulcer and lateral leg ulcers. Do not appear cellulitic, more granulotamous. Ankle has a purulent base with oozing without cellultic changes. Plan: Continue to monitor, wound care referral placed #Hypothyroidism Patient has history of hypothyroidism. Plan: Restart home levothyroxine 50mcg #Hx of CVA, residual L-sided hemiplegia Stable Disposition: Med-Surg DVT prophylaxis: heparin 5000 units subq q8h being held at midngiht for procedure GI prophylaxis: Diet: NPO after midnight Lines: PIV, dialysis cathether CODE STATUS: Full code This case was discussed with my attending physician, Dr. Covarrubias, and senior resident, Dr. Freeman. Rom Evans, PGY1 Attending Provider Attestation/Addendum I have discussed and was present for the essential components of the history, physical examination, diagnosis, and treatment plan with the resident. I agree with the patient's care as documented by the resident and amended herein by me. Iam Covarrubias DO. Although this document has been carefully reviewed, there may still be some phonetic and other typographical errors. These errors are purely grammatical due to imperfections in the software program and should not be construed in any way to compromise the substance of the patient's medical care during this visit.
--- NOTE | 2025-08-08 09:57 | ESPR_ITS ---
Subjective Subjective Interval history: looks like I could not order more bc. new line to be placed Exam Vital Signs Temp Pulse Resp BP Pulse Ox O2 Del Method O2 Flow Rate 97.8 F 77 18 144/82 H 97 Room Air 2 08/08/25 07:15 08/08/25 09:45 08/08/25 07:15 08/08/25 09:45 08/08/25 07:15 08/08/25 04:00 08/07/25 12:41 Narrative Exam x ray repeated. ok for temp line if needed. Objective - Internal Medicine Labs 08/10/25 04:43 08/10/25 04:43 Labs: Laboratory Results - last 24 hr 08/07/25 08/07/25 08/08/25 09:29 14:20 05:00 WBC 23.4 H D RBC 3.17 L Hgb 9.8 L Hct 32.0 L MCV 101 H MCH 30.9 MCHC 30.6 L RDW Std Deviation 56.8 H Plt Count 112 L Neut % (Auto) 84 H Lymph % (Auto) 7 L [place] % (Auto) 8 Eos % (Auto) 0 Baso % (Auto) 0 Neut # (Auto) 19.7 H Lymph # (Auto) 1.6 [place] # (Auto) 1.9 H Eos # (Auto) 0.0 Baso # (Auto) 0.1 Immature Gran # (Auto) 0.23 H Absolute Nucleated RBC 0.00 Immature Gran % 1 H Nucleated RBC % 0 PT 13.3 H 11.4 INR 1.3 1.1 APTT 44.1 H 38.1 H Sodium 141 Potassium 4.2 D Chloride 100 Carbon Dioxide 25.0 Anion Gap 16 BUN 36 H Creatinine 3.1 H D Estim Creat Clear Calc 23.6 L eGFR 16 L BUN/Creatinine Ratio 12 Glucose 124 H Calculated Osmolality 290 Calcium 8.9 Corrected Calcium 9.4 Phosphorus 4.0 Magnesium 2.0 Total Bilirubin 0.6 AST 35 H ALT 23 Alkaline Phosphatase 94 Total Protein 6.5 Albumin 3.4 Globulin 3.1 Albumin/Globulin Ratio 1.1 L Triglycerides 85 Vitamin B12 207 L Folate > 24.00 Random Vancomycin > 50.0 51.1 Hepatitis A IgM Ab Non Reactive Hep Bs Antigen Non Reactive Hep Bs Antibody NonReact(Not Immune) L Hep B Core IgM Ab Non Reactive Hepatitis C Antibody Non Reactive ABG Interpretation ABG results: 08/06/25 08/07/25 11:42 04:24 ABG pH 7.41 7.42 ABG pCO2 41 38 ABG pO2 96 71 L D ABG HCO3 26 25 ABG O2 Saturation 98 95 ABG Base Excess 1 0 Assessment & Plan A&P Narrative bacteremia mrsa. she was quite ill before so assumed to be real. bc slow to clear du noted in 2019. sacral, resolved per pt. [place] residence noted large staghorn calculus noted by renal hd since april 2025 dm II chf, severe will see again on Friday as I will not be here friday. needs bc neg at 48h to have new line/access. no riccardo osteo L leg by imaging. if you need a temp line, then place it. I tried to get more bc but was denied by system. so please get more bc tomorrow. . Time Spent With Patient Time: Total time spent is greater than 50% in coordination of care (as documented) at patient's floor/unit and/or counseling patient:
[2025-08-08] MEDS: AMIODARONE HCL 200 MG TABLET PO ×2 (10:35→20:38)
[2025-08-08] MEDS: DOCUSATE SOD 100 MG CAPSULE PO (10:36)
--- NOTE | 2025-08-08 11:20 | PC.SS ---
Follow up note: Dialysis cath replaced. On IV antibiotic.
[2025-08-08] MEDS: DEXTROSE 50%-WATER INJ 50 ML SYRINGE 25 ML IV (11:38)
--- NOTE | 2025-08-08 11:49 | ESCONSULT_ITS ---
RE: RUBÉN VIVAR : 1960 DATE OF CONSULTATION: 08/08/2025 REFERRING PHYSICIAN: Hospitalist team REASON FOR CONSULTATION: Bacteremia, heart failure, and prior decubitus ulceration of the sacrum. There is a new decubitus on the left leg. HISTORY OF PRESENT ILLNESS: Patient is a 64-year-old, a resident of [facility]. She has a decubitus ulcer on the left leg distally. Imaging has failed to show any osteomyelitis, nor there is any exposed bone noted on examination. Plain x-rays were not done. We just have a CT scan. CT scan shows cellulitis pattern only, no osteo. Further imaging is not indicated. Blood cultures are positive on admission for GPCs, not further identified, on 08/06, and 08/07 one of two are positive for GPCs. They have yet to be identified as well. Nasal MRSA is negative. Patient is on both vancomycin and Zosyn for reasons that are unclear. I am going to narrow her to vancomycin alone. She has been on dialysis because of diabetes. PAST MEDICAL HISTORY: Her medical problems include diabetes, hypertension, and heart failure. She has prior stroke and been on dialysis since April of 2025 according to records. The DU on the sacrum has resolved. She now has a new DU on the left leg distally. It does not involve the bone. MEDICATIONS: Include: * Amiodarone. * Atorvastatin. * Risperdal. * Vitamin C. * Apixaban or Eliquis. * Depakote t.i.d. * Medicines for constipation and to try and improve her urine output. * She is also on some thyroid medication. She may have hypothyroidism. She was in ICU for a day or so and then moved to the floor, hence her line is being removed because of the positive blood cultures. SURGICAL HISTORY: Includes only dialysis access procedures and decubitus ulceration management. ALLERGIES: SHE REPORTS THERE ARE NONE, BUT THE RECORD SUGGESTS THERE ARE A NUMBER OF ALLERGIES, WHICH ARE LISTED. I AM NOT GOING TO GIVE ANY OF THOSE MEDICATIONS AT THIS TIME. SHE HAS ALLERGIES TO CEPHALEXIN, BACTRIM, AND SULFA ARE noted to cause ANAPHYLAXIS. SHE DOES NOT RECALL THEM ALL. IMMUNIZATIONS: Unavailable. FAMILY HISTORY: Negative. SOCIAL HISTORY: She lives at [facility] and has no tobacco, alcohol, or drug use noted. PHYSICAL EXAMINATION: Patient is awake and alert. She does have some significant alopecia, which is more hair thinning on the scalp than anything. There is no loss of hair formally. There is some thinning that the patient was unaware of it. rest of exam noted for non inflammed ulcer of L leg. distally. White count is a bit high, but she was quite ill apparently on arrival. Her team likes to get a daily CBC for reasons that I refer to them on. Hemoglobin has been relatively stable, but her MCV is a little high, but folate is normal. B12 is on the low side at 207, so she may have some B12 deficiency that needs to be addressed. ASSESSMENT: Bacteremia with Gram-positive cocci, yet to be identified, but with a negative methicillin-resistant Staphylococcus aureus screen. RECOMMENDATIONS: I am going to leave her on vancomycin alone for now. I will check on her again on Friday. There may be an adverse change in her creatinine, but as long as she remains on dialysis, she could get a new line, probably on as long as blood cultures are negative from tomorrow. They are probably in the process of clearing, but she may have something else show up on the blood cultures from yesterday. It is a bit early for that. I will check on her next on Friday. DT: 10:03:33 TT: 11:33:00 Ref: [id number] - TID: [id number] MTDD
--- NOTE | 2025-08-08 12:56 | PC.NURSE ---
blood culture gram positive cocci
[2025-08-08] MEDS: HYDROcodone/APAP 5/325 TABLET 1 TAB PO (14:15)
--- NOTE | 2025-08-08 15:12 | PC.NURSE ---
1512 patient is awake, alert, breathing unlabored, s/p dialysis catheter removal, dressing to right chest dry with no bleeding, report given to Aisha CANTU, patient transferred back to room 377 with tele box. Spoke to Dr. robles who ordered catheter tip to be sent out for testing, catheter tip placed in container and will be sent to lab for testing.
[2025-08-08] MEDS: VIT B12/Vit C/FA (Nephrovite) TABLET 1 TAB PO (17:02)
--- NOTE | 2025-08-08 23:08 | ESCONSULT_ITS ---
RE: RUBÉN VIVAR : 1960 DATE OF CONSULTATION: 08/08/2025 REASON FOR REFERRAL: ESRD management. REFERRING PHYSICIAN: Dr. Figueroa. HISTORY OF PRESENT ILLNESS: This patient is a 64-year-old woman with past medical history significant for CVA, atrial fibrillation, heart failure with reduced ejection fraction of 15-20 percent, moderate pulmonary hypertension, and ESRD on dialysis since 04/30/2025, being dialyzed at the [facility] every Friday, , Friday, who presented to emergency room on 08/06/2025 with fever and confusion. Patient was also found with white count of 22,300 and procalcitonin level of about 38. Blood cultures were drawn and 1 out of 2 bottles grew gram-positive cocci. Patient was started on IV vancomycin 2 g IV x1. She was also found with purulent dialysis catheter exit site. Patient will be dialyzed anytime today. Her last dialysis was Friday. Patient is doing quite well and seems to be her regular self. PAST MEDICAL HISTORY: Atrial fibrillation, hypothyroidism, CVA, CHF with severe global hypokinesis, and a huge left staghorn calculus. SURGICAL HISTORY: Dialysis catheter placement. CURRENT MEDICATIONS: 1. Acetaminophen 650 mg q. 6. 2. Albumin. 3. Amiodarone 200 mg p.o. b.i.d. 4. Heparin 5000 units subcu q. 8. 5. Hydrocodone. 6. Lispro sliding scale. 7. Midodrine 10 mg p.o. q. 6. 8. Vancomycin IV. 9. Ondansetron 4 mg IV q. 6. PHYSICAL EXAMINATION: GENERAL: She is awake, alert, oriented. VITAL SIGNS: Blood pressure of 118/64, heart rate of 86, respiratory rate of 20, temperature of 98 Fahrenheit. HEENT: Anicteric sclerae, normocephalic. NECK: Supple, no JVD. CHEST AND LUNGS: Symmetrical expansion, clear breath sounds. CARDIAC: Exam without murmur. ABDOMEN: Soft and nontender. EXTREMITIES: 1-2+ peripheral edema. LABORATORY DATA: Sodium 141, potassium 4.2, chloride 100, BUN 36, creatinine 3.1, calcium 9.4. Hemoglobin 9.8, WBC 23,400, platelet count 122,000 ASSESSMENT: 1. End-stage renal disease on dialysis. 2. Gram-positive cocci bacteremia. 3. Anemia of chronic disease. 4. History of staghorn calculi. 5. Heart failure with reduced ejection fraction of 15-20 percent. 6. Hypertension. PLAN: I agree with starting her on IV vancomycin. Dialysis catheter will be removed after dialysis today and can be put back on once blood cultures are negative. After today, dialysis will be on Friday. DT: 22:42:48 TT: 23:07:00 Ref: [id number] - TID: [id number] MTDD
[2025-08-09] VITALS (13 sets, daily range): BP systolic 85–102; BP diastolic 58–76; PULSE 56–106; RESP 15–95; TEMP 36.3–36.8; O2SAT 94–96; BMI 29.4
[2025-08-09] MEDS: MIDODRINE 5 MG TABLET 10 MG PO ×3 (05:19→17:16)
[2025-08-09] MEDS: LEVOTHYROXINE SODIUM 25 MCG TABLET 50 MCG PO (05:20)
[2025-08-09 05:58] LABS: INR 1.1 (0.9-1.3); Partial Thromboplastin Time 30.9 Seconds (22.0-36.0); Prothrombin Time 11.2 Seconds (9.0-12.2)
[2025-08-09 06:00] LABS: Basophils # (Auto) 0.1 Thou/mm3 (0.0-0.2); Basophils % (Auto) 0 % (0-2.5); Eosinophils # (Auto) 0.1 Thou/mm3 (0.0-0.5); Eosinophils % (Auto) 0 % (0-10); Hematocrit 32.9 % (36.0-46.0); Hemoglobin 10.2 g/dL (12.0-16.0); Immature Granulocytes Auto 0.63 Thou/mm3 (0.00-0.00); Lymphocytes # (Auto) 2.8 Thou/mm3 (1.0-4.8); Lymphocytes % (Auto) 12 % (10-50); Mean Corpuscular HGB Conc 31.0 g/dl (31.0-37.0); Mean Corpuscular Hemoglobin 31.2 pg (25.0-35.0); Mean Corpuscular Volume 101 fL (80-100); Monocytes # (Auto) 2.2 Thou/mm3 (0.0-0.8); Monocytes % (Auto) 9 % (0-12); Neutrophils # (Auto) 18.2 Thou/mm3 (1.8-7.7); Neutrophils % (Auto) 76 % (37-80); Nucleated Red Blood Cell # 0.08 Thou/mm3 (0.00-0.00); Nucleated Red Blood Cell % 0 /100 WBC (0); Platelet Count 133 Thou/mm3 (140-440); RDW Standard Deviation 57.2 fL (36.4-46.3); Red Blood Count 3.27 Miln/mm3 (4.00-5.20); White Blood Count 24.0 Thou/mm3 (3.6-11.0)
[2025-08-09 06:06] LABS: Alanine Aminotransferase 30 U/L (10-49); Albumin, Serum 3.5 gm/dL (3.4-4.8); Albumin/Globulin Ratio 1.1 (1.2-2.2); Alkaline Phosphatase 91 U/L (46-116); Anion Gap 14 (7-16); Aspartate Amino Transferase 34 U/L (0-34); BUN/Creatinine Ratio 11 Ratio (12-20); Bilirubin,Total 0.5 mg/dL (0.3-1.2); Blood Urea Nitrogen 35 mg/dL (9-23); Calcium 8.8 mg/dL (8.3-10.6); Calcium (Corrected) 9.2 mg/dL (8.5-10.1); Carbon Dioxide 26.9 mMol/L (20.0-31.0); Chloride 101 mMol/L (98-107); Creatinine (Component) 3.2 mg/dL (0.6-1.3); Estimated Creatinine Clearance 22.8 mL/min (>60); Globulin 3.2 gm/dL (2.3-3.5); Glucose 100 mg/dL (74-106); Magnesium 2.2 mg/dL (1.6-2.6); Osmolality,Calculated 291 (275-295); Phosphorous 3.4 mg/dL (2.4-5.1); Potassium 4.4 mMol/L (3.4-5.1); Sodium 142 mMol/L (136-145); Total Protein 6.7 gm/dL (5.7-8.2); Triglycerides 108 mg/dL (30-150); Vancomycin,Random 45.4 mcg/mL; eGFR 16 See Note
[2025-08-09] MEDS: AMIODARONE HCL 200 MG TABLET PO ×2 (08:22→21:37)
[2025-08-09] MEDS: VIT B12/Vit C/FA (Nephrovite) TABLET 1 TAB PO (08:22)
[2025-08-09] MEDS: DOCUSATE SOD 100 MG CAPSULE PO (08:23)
--- NOTE | 2025-08-09 09:00 | XR_ITS ---
EXAMINATION: AP chest single view TECHNIQUE: Sitting portable AP chest single view Date and time: August 09, 2025, 0722 hours, comparison August 08, 2025 INDICATIONS: Wheezing today. FINDINGS: Mild prominence cardiac contour Ectatic enlarged thoracic aorta Moderate vascular congestion Suspicious for early pneumonia left lower lung zone Prominent osteopenia IMPRESSION: Moderate vascular congestion Suspicious for early pneumonia left lower lung zone
--- NOTE | 2025-08-09 09:35 | PC.SS ---
Late note 08-08-25: SS met with patient regarding her d/c plan. Pt is alert/oriented. Pt was admitted for Sepsis. Pt confirmed demographic and contact information is correct on facesheet. Pt is snf resident from [facility]. SS has also spoken to Lana from [facility] who states pt does not require insurance authorization to return due to being at her baseline. Per Lana, Pt transfers with assistance and johann lift into wheelchair. Pt requires assistance with ADLs. Pt named her brother Ben Whaley and son, Damian Hopkins medical decision maker if she is unable. Patient?s choice is to return to [facility]. Per Lana, patient's dialysis chair time is MWF at 11am at [facility] Dialysis on [place]. D/C plan: Return to [facility] Next of Kin: Ben Whaley, brother, phone# [phone] or Viv Hopkins, son, phone# [phone] PCP: Dr. Mejía Address: Correct on facesheet
[2025-08-09 09:46] LABS: HIV (1&2) Antibody Rapid Non-Reactive
[2025-08-09] MEDS: HEPARIN SOD INJ 5000 UNIT/ML VIAL SC ×2 (13:16→21:37)
--- NOTE | 2025-08-09 14:32 | ESPR_ITS ---
Documentation for date of: 08/09/25 Subjective Subjective Interval history: No acute overnight events. Patient seen examined at bedside. Patient endorses she is very depressed and wants to go home, threatened to leave AMA however convinced her not to as HD catheter has been removed. SBP 85 to 90s. HR high 90s low 100s. Saturating 95% on room air, WC count still elevated 24, creatinine 3.2. Per Dr Landry, will place temporary HD catheter tomorrow as blood cultures are still positive. Ordered repeat blood cultures. Continue vanc. Exam Vital Signs Temp Pulse Resp BP Pulse Ox O2 Del Method O2 Flow Rate 97.5 F 100 15 94/58 L 94 L Room Air 3 08/09/25 12:08/09/25 12:08/09/25 12:08/09/25 12:08/09/25 12:08/09/25 12:08/08/25 15:02 Narrative Exam GENERAL: AOx3, no acute distress, depressed, obese, older than stated age HEENT: mucous membranes moist, bilateral sclera anicteric CARDIOVASCULAR: regular rate and rhythm, S1/S2 present, no murmurs appreciated PULMONARY: clear to auscultation bilaterally, no rales/rhonchi/wheezes ABDOMINAL: soft, non-tender, non-distended, no rebound/guarding, bowel sounds present EXTREMITIES: 1+ BLE pitting edema SKIN: warm and dry, intact, no rashes NEURO: CN II-XII grossly intact, alert, following commands, L sided motor deficits, hand and feet flexed sensation intact, no neglect. Objective Labs 08/09/25 04:48 08/09/25 04:48 Labs: Laboratory Results - last 24 hr 08/09/25 04:48 WBC 24.0 H RBC 3.27 L Hgb 10.2 L Hct 32.9 L MCV 101 H MCH 31.2 MCHC 31.0 RDW Std Deviation 57.2 H Plt Count 133 L Neut % (Auto) 76 Lymph % (Auto) 12 [place] % (Auto) 9 Eos % (Auto) 0 Baso % (Auto) 0 Neut # (Auto) 18.2 H Lymph # (Auto) 2.8 [place] # (Auto) 2.2 H Eos # (Auto) 0.1 Baso # (Auto) 0.1 Immature Gran # (Auto) 0.63 H Absolute Nucleated RBC 0.08 H Immature Gran % 3 H Nucleated RBC % 0 PT 11.2 INR 1.1 APTT 30.9 Sodium 142 Potassium 4.4 Chloride 101 Carbon Dioxide 26.9 Anion Gap 14 BUN 35 H Creatinine 3.2 H Estim Creat Clear Calc 22.8 L eGFR 16 L BUN/Creatinine Ratio 11 L Glucose 100 Calculated Osmolality 291 Calcium 8.8 Corrected Calcium 9.2 Phosphorus 3.4 Magnesium 2.2 Total Bilirubin 0.5 AST 34 ALT 30 Alkaline Phosphatase 91 Total Protein 6.7 Albumin 3.5 Globulin 3.2 Albumin/Globulin Ratio 1.1 L Triglycerides 108 Random Vancomycin 45.4 HIV 1&2 Antibody Rapid Non-Reactive ABG Interpretation ABG results: 08/06/25 08/07/25 11:42 04:24 ABG pH 7.41 7.42 ABG pCO2 41 38 ABG pO2 96 71 L D ABG HCO3 26 25 ABG O2 Saturation 98 95 ABG Base Excess 1 0 Quality Measures Quality Measures none Assessment & Plan Assessment Current Active Medications: Generic Name Dose Route Start Last Admin Trade Name Freq PRN Reason Stop Dose Admin Acetaminophen 650 mg 08/06/25 15:58 Acetaminophen 325 Mg Tablet PO 09/05/25 15:57 Q6H PRN Fever >100.4 or pain 1-3 Hydrocodone Bitart/Acetaminophen 1 tab 08/06/25 15:58 08/07/25 11:49 Hydrocodone/Apap 5/325 Tablet PO 08/11/25 15:57 1 tab Q4HR PRN Administration PAIN SCALE 4-6 (Moderate Amiodarone HCl 200 mg 08/07/25 09:35 08/09/25 08:22 Amiodarone Hcl 200 Mg Tablet PO 09/06/25 09:34 200 mg BID RIANNA Administration Dextrose 25 ml 08/06/25 16:07 08/08/25 11:38 Dextrose 50%-Water Inj 50 Ml Syringe IV 09/05/25 16:06 25 ml Q15MIN PRN Administration BG 50-70 responsive npo pt Dextrose 50 ml 08/06/25 16:07 Dextrose 50%-Water Inj 50 Ml Syringe IV 09/05/25 16:06 Q15MIN PRN BG <50 OR BG <70 & pt unresponsive Docusate Sodium 100 mg 08/07/25 09:00 08/09/25 08:23 Docusate Sod 100 Mg Capsule PO 09/06/25 08:59 100 mg QDAY RIANNA Administration Protocol Glucagon 1 mg 08/06/25 16:07 Glucagon Inj 1 Mg Vial IM Q15MIN PRN BG <70, and no IV access Heparin Sodium (Porcine) 5,000 unit 08/06/25 16:15 08/09/25 13:16 Heparin Sod Inj 5000 Unit/Ml Vial SC 08/20/25 16:14 5,000 unit Q8HR RIANNA Administration Heparin Sodium (Porcine) 2,500 unit 08/07/25 10:06 08/07/25 10:17 Heparin Sod Inj 1000 Unit/Ml Vial 10 Ml IV 08/13/25 10:05 2,500 unit X1 PRN Administration DIALYSIS Heparin Sodium (Porcine) 3,300 unit 08/07/25 11:50 08/07/25 11:52 Heparin Sod Inj 1000 Unit/Ml Vial 10 Ml INDWELLCAT 08/21/25 11:49 3,300 unit X1 PRN Administration DIALYSIS Hydromorphone HCl 0.5 mg 08/07/25 15:36 Hydromorphone Inj 2 Mg/Ml Vial IVP 08/12/25 15:35 Q4HR PRN PAIN SCALE 7-10 (Severe) Albumin Human 25 gm in 100 mls @ 100 mls/min 08/07/25 09:32 08/08/25 07:48 Albuminex 25% Ivpb IV Infused PRN PRN Infusion DIALYSIS Levothyroxine Sodium 50 mcg 08/08/25 06:00 08/09/25 05:20 Levothyroxine Sodium 25 Mcg Tablet PO 09/07/25 05:59 50 mcg ACBR RIANNA Administration Midodrine 10 mg 08/07/25 09:40 08/09/25 12:09 Midodrine 5 Mg Tablet PO 09/06/25 09:39 10 mg Q6HR RIANNA Administration Ondansetron HCl 4 mg 08/06/25 15:58 Ondansetron Inj 2 Mg/Ml Inj 2 Ml IVP 09/05/25 15:57 Q6H PRN NAUSEA OR VOMITING Protocol Pharmacy Consult 1 each 08/07/25 09:00 Vancomycin Pharmacy To Dose 1 Each Each IV 09/06/25 08:59 QDAY PRN SEPSIS Vitamin B Complex/Vit C/Folic Acid 1 tab 08/08/25 16:30 08/09/25 08:22 Vit B12/Vit C/Fa (Nephrovite) Tablet PO 09/07/25 16:29 1 tab QDAY RIANNA Administration Plan 64-year-old female with PMH of 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 Landry, and a history of staghorn calculi, was transferred to the emergency department from a nursing facility after staff found her to be lethargic, hypotensive, and with fever. Patient admitted to ICU for sepsis workup and downgraded to floors on 08/07/25. #Septic shock (resolving) secondary to #Sepsis (resolving) caused by #Dialysis catheter infection #NSTEMI type II 2/ blood cultures 08/06/25 positive for GPCs 08/06/25 UCx pending 08/06/25- Troponin peaked 1.423, then fell to 1.175 08/07/25 1/2 BCx +GPC 08/08/25 2/2 BCx +GPC Plan: IV vancomycin Awaiting echo read Remove old dialysis catheter 08/08/25; place new catheter 08/10/25 by ICU team Follow up TDC site cx and catheter tip cx ID consulted, thank you for recs- vancomycin alone, B12 tablet daily Ordered repeat BCx #End-stage renal disease on dialysis (T/T/F) #Electrolyte abnormalities #Hyperphosphatemia Had dialysis today Plan: Hemodialysis (T/T/F) Avoid nephrotoxic agents, renally dose medicines Exchange catheter as above Per Dr. Landry, given persistent BCx + for GPC collected on 08/08, anticipate temporary dialysis catheter to be inserted tomorrow and for patient to receive HD #A-fib [id number]: 5 Patient has history of A-fib. Plan: ? Monitor EKG - Amiodarone 200 BID - K > 4, Mg > 2 #HFrEF (15-20%), stable Longstanding hx. And previously patient has refused cardiac cath, continues to refuse. Echo shows LV size moderately enlarged and severe global hypokinesis and severe systolic dysfunction estimated EF 15 to 20%. RV chamber size normal systolic function mildly reduced, RVSP 35 to 40 mmHg, mild to moderate pulmonary hypertension, moderate MR, mild to moderate TR and trace AI, LA severely enlarged, RA mildly enlarged Plan: ? Caution with fluids - Keep K>4 and Mg>2 at all times #Pressure ulcers Scaral and decubitous ulcer and lateral leg ulcers. Do not appear cellulitic, more granulotamous. Ankle has a purulent base with oozing without cellultic changes. Plan: Continue to monitor, wound care referral placed #Hypothyroidism Patient has history of hypothyroidism. Plan: Restart home levothyroxine 50mcg #Hx of CVA, residual L-sided hemiplegia Stable Disposition: Med-Surg DVT prophylaxis: heparin 5000u q8h GI prophylaxis: none Diet: Renal, 1.8L fluid restriction Lines: PIV CODE STATUS: Full code This case was discussed with my attending physician, Dr. Giang, and senior resident, Dr. Freeman. Donya August, DO Internal Medicine PGY-1 Senior Resident Attestation: Patient's blood culture is still positive, and once the patient's blood culture is negative for 48 hours, we will get her a new PermCath for hemodialysis. Then the patient will be discharged at her SNF with antibiotics. I discussed with and supervised the corporate development intern physician involved in the care of this patient. I personally saw and examined the patient and discussed the assessment and plan with the entire medicine team, including my attending. I agree with the assessment and plan as documented above. Lucian Freeman MD PGY3 Internal Medicine Attending Provider Attestation/Addendum Patient was seen and examined. She was admitted for shock, bacteremia possible dialysis catheter infection. May need temporary dialysis catheter placement per Dr Landry recommendations. I discussed with and supervised the resident physician who took care of this patient. I agree with the assessment and plan as above.
--- NOTE | 2025-08-09 19:09 | ESPR_ITS ---
RE: RUBÉN VIVAR : 1960 DATE OF SERVICE: 08/09/2025 HISTORY OF PRESENT ILLNESS: Patient is a 64-year-old woman with history of CVA, atrial fibrillation, heart failure with reduced ejection fraction of 15-20%, moderate pulmonary hypertension, and ESRD on dialysis since 04/30/2025; on dialysis at the [facility] every Friday, , Friday, who presented to the emergency room on 08/06/2025 with fever and confusion. Patient was found with gram-positive cocci bacteremia and was started on IV vancomycin upon admission. She had dialysis yesterday and removal of dialysis catheter yesterday as well. She is currently asleep. CURRENT MEDICATIONS: 1. Acetaminophen. 2. Amiodarone 200 mg b.i.d. 3. Epogen 10,000 units subcutaneously x1. 4. Heparin 5,000 units subcutaneously q.8. 5. Hydrocodone. 6. Levothyroxine 50 mcg p.o. daily. 7. Midodrine 10 mg q.6. 8. Ondansetron 4 mg IV q.6. PHYSICAL EXAMINATION: Vital Signs: Blood pressure of 94/58, heart rate of 102. HEENT: Anicteric sclerae, normocephalic. Neck: Was supple, JVD. Chest and Lungs: Symmetric expansion, clear breath sounds. Cardiac: Exam without murmur. Abdomen: Soft and nontender. Extremities: No edema. LABORATORY DATA: Hemoglobin 10.2, WBC 24,000, platelet count 133,000. Sodium 142, potassium 4.4, chloride 101, CO2 of 26.9, BUN 35, creatinine 3.2, glucose 100, albumin 3.5. ASSESSMENT: 1. End-stage renal disease. 2. Gram-positive cocci bacteremia. 3. Anemia of chronic kidney disease. 4. History of staghorn calculi. 5. Heart failure with reduced ejection fraction of 15-20%. 6. Hypotension. PLAN: Continue IV vancomycin. Patient can have a temporary dialysis catheter tomorrow followed by hemodialysis treatment. Once blood cultures are negative for 24-48 hours, then we can arrange for a tunneled dialysis catheter placement. DT: 18:39:49 TT: 19:08:00 Ref: [id number] - TID: [id number] MTDD
[2025-08-10] VITALS (31 sets, daily range): BP systolic 64–139; BP diastolic 21–89; PULSE 46–112; RESP 11–100; TEMP 36.1–37.1; O2SAT 92–100
--- NOTE | 2025-08-10 | XR_ITS ---
EXAM: Ultrasound and fluoroscopic guided right nontunneled dialysis catheter placement. INDICATION: Needs hemodialysis. Fluoroscopy time: 1.2 minutes Dose: 6.7 mGy PROCEDURE: After discussion of risks and benefits informed consent was obtained. The patient was brought to the angiography suite and placed supine on the exam table. Ultrasound evaluation demonstrated the right IJ to be patent. This was targeted for dialysis catheter placement. The overlying skin was cleaned and draped in normal sterile surgical fashion. 20 cc of 1% lidocaine was used for local anesthesia. Using ultrasound guidance access to the right internal jugular vein was obtained with a micropuncture needle. A 0.018 wire was advanced through the needle into the SVC. The needle was withdrawn and a 5 [place] exchange sheath was placed over the wire and the wire was removed. Inner cannula and wire were removed. 0.018 wire was advanced through the sheath into the IVC. The tract was serially dilated and a 14 [place] by 15 cm dual-lumen dialysis catheter was placed over the wire and the wire was removed.. Both ports flushed and aspirated easily. The catheter was sutured in place with 2-0 silk suture and covered with a sterile dressing. There were no immediate complications. Patient tolerated the procedure well. IMPRESSION: Successful right IJ temporary dialysis catheter placement as above. Catheter is ready for use.
[2025-08-10] MEDS: MIDODRINE 5 MG TABLET 10 MG PO ×4 (01:33→18:10)
--- NOTE | 2025-08-10 03:35 | PC.NURSE ---
Called Dr. Siu to see if they want it to put pt NPO for HD cath placement, Per , it is okay to keep pt NPO, okay to give meds with sip of water.
[2025-08-10] MEDS: LEVOTHYROXINE SODIUM 25 MCG TABLET 50 MCG PO (05:19)
[2025-08-10 05:20] LABS: Basophils # (Auto) 0.1 Thou/mm3 (0.0-0.2); Basophils % (Auto) 1 % (0-2.5); Eosinophils # (Auto) 0.1 Thou/mm3 (0.0-0.5); Eosinophils % (Auto) 1 % (0-10); Hematocrit 32.9 % (36.0-46.0); Hemoglobin 10.2 g/dL (12.0-16.0); Immature Granulocytes Auto 0.95 Thou/mm3 (0.00-0.00); Lymphocytes # (Auto) 4.1 Thou/mm3 (1.0-4.8); Lymphocytes % (Auto) 19 % (10-50); Mean Corpuscular HGB Conc 31.0 g/dl (31.0-37.0); Mean Corpuscular Hemoglobin 30.7 pg (25.0-35.0); Mean Corpuscular Volume 99 fL (80-100); Monocytes # (Auto) 2.1 Thou/mm3 (0.0-0.8); Monocytes % (Auto) 10 % (0-12); Neutrophils # (Auto) 14.5 Thou/mm3 (1.8-7.7); Neutrophils % (Auto) 66 % (37-80); Nucleated Red Blood Cell # 0.22 Thou/mm3 (0.00-0.00); Nucleated Red Blood Cell % 1 /100 WBC (0); Platelet Count 191 Thou/mm3 (140-440); RDW Standard Deviation 55.8 fL (36.4-46.3); Red Blood Count 3.32 Miln/mm3 (4.00-5.20); White Blood Count 21.8 Thou/mm3 (3.6-11.0)
[2025-08-10 05:58] LABS: Alanine Aminotransferase 22 U/L (10-49); Albumin, Serum 3.6 gm/dL (3.4-4.8); Albumin/Globulin Ratio 1.2 (1.2-2.2); Alkaline Phosphatase 88 U/L (46-116); Anion Gap 17 (7-16); Aspartate Amino Transferase 21 U/L (0-34); BUN/Creatinine Ratio 11 Ratio (12-20); Bilirubin,Total 0.5 mg/dL (0.3-1.2); Blood Urea Nitrogen 47 mg/dL (9-23); Calcium 8.6 mg/dL (8.3-10.6); Calcium (Corrected) 8.9 mg/dL (8.5-10.1); Carbon Dioxide 24.1 mMol/L (20.0-31.0); Chloride 100 mMol/L (98-107); Creatinine (Component) 4.2 mg/dL (0.6-1.3); Estimated Creatinine Clearance 18.0 mL/min (>60); Globulin 3.1 gm/dL (2.3-3.5); Glucose 79 mg/dL (74-106); Magnesium 2.3 mg/dL (1.6-2.6); Osmolality,Calculated 292 (275-295); Phosphorous 4.1 mg/dL (2.4-5.1); Potassium 4.7 mMol/L (3.4-5.1); Sodium 141 mMol/L (136-145); Total Protein 6.7 gm/dL (5.7-8.2); Triglycerides 106 mg/dL (30-150); eGFR 11 See Note
--- NOTE | 2025-08-10 08:40 | PD.RESPRO ---
Documentation for date of: 08/10/25 Subjective Subjective Interval history: Patient seen and examined today; no acute events overnight. Temporary dialysis catheter placed today. Cultures from 08/06 and 08/07 were positive for MRSA, and 08/09 cultures were positive for GPCs resembling staph. Per ID, needs negative cultures at 48h to have new line/access, and has no riccardo left leg osteomyelitis by imaging. Exam Vital Signs Temp Pulse Resp BP Pulse Ox O2 Del Method O2 Flow Rate 97.4 F 104 H 17 101/68 94 L Nasal Cannula 3 08/10/25 04:00 08/10/25 05:18 08/10/25 04:00 08/10/25 05:18 08/10/25 04:00 08/10/25 04:00 08/09/25 16:00 Narrative Exam GENERAL: A&Ox3, no acute distress HEENT: mucous membranes moist, bilateral sclera anicteric CARDIOVASCULAR: regular rate and rhythm, S1/S2 present, no murmurs appreciated PULMONARY: clear to auscultation bilaterally, no rales/rhonchi/wheezes ABDOMINAL: soft, non-tender, non-distended, no rebound/guarding, bowel sounds present EXTREMITIES: 1+ BLE pitting edema SKIN: warm and dry, intact, no rashes NEURO: CN II-XII grossly intact, alert, following commands, L sided motor deficits, hand and feet flexed sensation intact, no neglect. Objective Labs 08/11/25 04:55 08/11/25 04:55 Labs: Laboratory Results - last 24 hr 08/09/25 08/10/25 04:48 04:43 WBC 21.8 H RBC 3.32 L Hgb 10.2 L Hct 32.9 L MCV 99 MCH 30.7 MCHC 31.0 RDW Std Deviation 55.8 H Plt Count 191 D Neut % (Auto) 66 Lymph % (Auto) 19 [place] % (Auto) 10 Eos % (Auto) 1 Baso % (Auto) 1 Neut # (Auto) 14.5 H Lymph # (Auto) 4.1 [place] # (Auto) 2.1 H Eos # (Auto) 0.1 Baso # (Auto) 0.1 Immature Gran # (Auto) 0.95 H Absolute Nucleated RBC 0.22 H Immature Gran % 4 H Nucleated RBC % 1 H Sodium 141 Potassium 4.7 Chloride 100 Carbon Dioxide 24.1 Anion Gap 17 H BUN 47 H Creatinine 4.2 H* D Estim Creat Clear Calc 18.0 L eGFR 11 L* BUN/Creatinine Ratio 11 L Glucose 79 Calculated Osmolality 292 Calcium 8.6 Corrected Calcium 8.9 Phosphorus 4.1 Magnesium 2.3 Total Bilirubin 0.5 AST 21 ALT 22 Alkaline Phosphatase 88 Total Protein 6.7 Albumin 3.6 Globulin 3.1 Albumin/Globulin Ratio 1.2 Triglycerides 106 HIV 1&2 Antibody Rapid Non-Reactive ABG Interpretation ABG results: 08/06/25 08/07/25 11:42 04:24 ABG pH 7.41 7.42 ABG pCO2 41 38 ABG pO2 96 71 L D ABG HCO3 26 25 ABG O2 Saturation 98 95 ABG Base Excess 1 0 Quality Measures Quality Measures none Assessment & Plan Assessment Current Active Medications: Generic Name Dose Route Start Last Admin Trade Name Freq PRN Reason Stop Dose Admin Acetaminophen 650 mg 08/06/25 15:58 Acetaminophen 325 Mg Tablet PO 09/05/25 15:57 Q6H PRN Fever >100.4 or pain 1-3 Hydrocodone Bitart/Acetaminophen 1 tab 08/06/25 15:58 08/07/25 11:49 Hydrocodone/Apap 5/325 Tablet PO 08/11/25 15:57 1 tab Q4HR PRN Administration PAIN SCALE 4-6 (Moderate Amiodarone HCl 200 mg 08/07/25 09:35 08/09/25 21:37 Amiodarone Hcl 200 Mg Tablet PO 09/06/25 09:34 200 mg BID RIANNA Administration Dextrose 25 ml 08/06/25 16:07 08/08/25 11:38 Dextrose 50%-Water Inj 50 Ml Syringe IV 09/05/25 16:06 25 ml Q15MIN PRN Administration BG 50-70 responsive npo pt Dextrose 50 ml 08/06/25 16:07 Dextrose 50%-Water Inj 50 Ml Syringe IV 09/05/25 16:06 Q15MIN PRN BG <50 OR BG <70 & pt unresponsive Docusate Sodium 100 mg 08/07/25 09:00 08/09/25 08:23 Docusate Sod 100 Mg Capsule PO 09/06/25 08:59 100 mg QDAY RIANNA Administration Protocol Glucagon 1 mg 08/06/25 16:07 Glucagon Inj 1 Mg Vial IM Q15MIN PRN BG <70, and no IV access Heparin Sodium (Porcine) 5,000 unit 08/06/25 16:15 08/09/25 21:37 Heparin Sod Inj 5000 Unit/Ml Vial SC 08/20/25 16:14 5,000 unit On Hold: 08/10/25 00:00 Q8HR RIANNA Administration Heparin Sodium (Porcine) 2,500 unit 08/07/25 10:06 08/07/25 10:17 Heparin Sod Inj 1000 Unit/Ml Vial 10 Ml IV 08/13/25 10:05 2,500 unit X1 PRN Administration DIALYSIS Heparin Sodium (Porcine) 3,300 unit 08/07/25 11:50 08/07/25 11:52 Heparin Sod Inj 1000 Unit/Ml Vial 10 Ml INDWELLCAT 08/21/25 11:49 3,300 unit X1 PRN Administration DIALYSIS Hydromorphone HCl 0.5 mg 08/07/25 15:36 Hydromorphone Inj 2 Mg/Ml Vial IVP 08/12/25 15:35 Q4HR PRN PAIN SCALE 7-10 (Severe) Albumin Human 25 gm in 100 mls @ 100 mls/min 08/07/25 09:32 08/08/25 07:48 Albuminex 25% Ivpb IV Infused PRN PRN Infusion DIALYSIS Levothyroxine Sodium 50 mcg 08/08/25 06:00 08/10/25 05:19 Levothyroxine Sodium 25 Mcg Tablet PO 09/07/25 05:59 50 mcg ACBR RIANNA Administration Midodrine 10 mg 08/07/25 09:40 08/10/25 05:18 Midodrine 5 Mg Tablet PO 09/06/25 09:39 10 mg Q6HR RIANNA Administration Ondansetron HCl 4 mg 08/06/25 15:58 Ondansetron Inj 2 Mg/Ml Inj 2 Ml IVP 09/05/25 15:57 Q6H PRN NAUSEA OR VOMITING Protocol Pharmacy Consult 1 each 08/07/25 09:00 Vancomycin Pharmacy To Dose 1 Each Each IV 09/06/25 08:59 QDAY PRN SEPSIS Vitamin B Complex/Vit C/Folic Acid 1 tab 08/08/25 16:30 08/09/25 08:22 Vit B12/Vit C/Fa (Nephrovite) Tablet PO 09/07/25 16:29 1 tab QDAY RIANNA Administration Plan 64-year-old female with PMH of 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 Landry, and history of staghorn calculi, was transferred to ED from a nursing facility with lethargy, hypotensieon, and fever. Patient admitted to ICU for sepsis workup and downgraded to floors on 08/07/25. #Septic shock (resolving) secondary to #Sepsis (resolving) caused by #Dialysis catheter infection #NSTEMI type II 2/ blood cultures 08/06/25 positive for GPCs 08/06/25 1/2 BCx + MRSA 08/06/25 UCx pending 08/06/25- Troponin peaked 1.423, then fell to 1.175 08/07/25 1/2 BCx +MRSA 08/08/25 2/2 BCx +GPC; catheter tip culture +GPC 08/09/25 2/2 BCx +GPC Plan: IV vancomycin Awaiting echo read Remove old dialysis catheter 08/08/25; temproary catheter placed 08/10/25; Plan to place permanent catheter when 48 hours of negative cultures achieved. Follow up blood and catheter tip cx ID consulted, thank you for recs- vancomycin alone, B12 tablet daily, catheter needs 48h negative cultures Ordered repeat BCx 08/11 #End-stage renal disease on dialysis (T/T/F) #Electrolyte abnormalities #Hyperphosphatemia Had dialysis today Plan: Hemodialysis (T/T/F) Avoid nephrotoxic agents, renally dose medicines Exchange catheter as above Give midodrine after dialysis if BP low #A-fib [id number]: 5 Patient has history of A-fib. Plan: ? Monitor EKG - Amiodarone 200 BID - K > 4, Mg > 2 #HFrEF (15-20%), stable Longstanding hx. And previously patient has refused cardiac cath, continues to refuse. Echo shows LV size moderately enlarged and severe global hypokinesis and severe systolic dysfunction estimated EF 15 to 20%. RV chamber size normal systolic function mildly reduced, RVSP 35 to 40 mmHg, mild to moderate pulmonary hypertension, moderate MR, mild to moderate TR and trace AI, LA severely enlarged, RA mildly enlarged Plan: ? Caution with fluids - Keep K>4 and Mg>2 at all times #Pressure ulcers Scaral and decubitous ulcer and lateral leg ulcers. Do not appear cellulitic, more granulotamous. Ankle has a purulent base with oozing without cellultic changes. Plan: Continue to monitor, wound care referral placed #Hypothyroidism Patient has history of hypothyroidism. Plan: Restart home levothyroxine 50mcg #Hx of CVA, residual L-sided hemiplegia Stable Disposition: Med-Surg DVT prophylaxis: heparin 5000u q8h GI prophylaxis: none Diet: Renal, 1.8L fluid restriction Lines: PIV CODE STATUS: Full code This case was discussed with my attending physician, Dr. Weems, and senior resident, Dr. Freeman. Rom Echolsmarisa Senior Resident Attestation: Pt got temp HD catheter, and once the BCx is negative for 48 hours, we will proceed with Perm HD cath and DC pt on oral abx. I discussed with and supervised the technical support internship physician involved in the care of this patient. I personally saw and examined the patient and discussed the assessment and plan with the entire medicine team, including my attending. I agree with the assessment and plan as documented above. Lucian Freeman MD PGY3 Internal Medicine Attending Provider Attestation/Addendum I reviewed labs, imaging, EKG, home medications and prior available records. Face to face evaluation was performed by me. I have personally examined the patient and discussed assessment and plan with the IM team. I reviewed the resident note and agree with the plan with exceptions as below. Sepsis secondary to dialysis line infection post removal Gram-positive bacteremia HFrEF EF 15 to 20% Atrial fibrillation with controlled ventricular rhythm Continue IV vancomycin Blood cultures on 08/11 IR to put a new dialysis line when cultures are negative for 48 hours Continue amiodarone
--- NOTE | 2025-08-10 09:00 | XR_ITS ---
EXAMINATION: AP chest single view TECHNIQUE: Portable semiupright AP chest single view Date and time: August 10, 2025, 10:00 a.m., comparison August 09, 2025 INDICATIONS: Wheezing sepsis today FINDINGS: Reduced inspiratory effort The film is rotated RPO Diffuse opacity in both lungs suspicious for pneumonia Mild enlargement cardiac contour Ectatic thoracic aorta IMPRESSION: Technically severely limited chest Suspicious for diffuse bilateral pneumonia
[2025-08-10] MEDS: AMIODARONE HCL 200 MG TABLET PO ×2 (09:07→20:33)
[2025-08-10] MEDS: VIT B12/Vit C/FA (Nephrovite) TABLET 1 TAB PO (09:08)
[2025-08-10] MEDS: DOCUSATE SOD 100 MG CAPSULE PO (09:08)
--- NOTE | 2025-08-10 09:50 | PC.SS ---
Follow up note: Pt will get temporary dialysis line. Dialysis today. On IV antibiotic. Pt will return to [facility] upon dc. Per Lana, (previous discussion) pt does not require authorization.
--- NOTE | 2025-08-10 14:11 | PD.IDPROG ---
Subjective Subjective Interval history: out of room for temp line. unable to see. Exam Vital Signs Temp Pulse Resp BP Pulse Ox O2 Del Method O2 Flow Rate 97.8 F 98 18 96/64 96 Nasal Cannula 1 08/10/25 12:00 08/10/25 12:00 08/10/25 12:00 08/10/25 12:00 08/10/25 12:00 08/10/25 12:00 08/10/25 12:00 Narrative Exam unable to see as out of room for temp line. Objective - Internal Medicine Labs 08/10/25 04:43 08/10/25 04:43 Labs: Laboratory Results - last 24 hr 08/10/25 04:43 WBC 21.8 H RBC 3.32 L Hgb 10.2 L Hct 32.9 L MCV 99 MCH 30.7 MCHC 31.0 RDW Std Deviation 55.8 H Plt Count 191 D Neut % (Auto) 66 Lymph % (Auto) 19 [place] % (Auto) 10 Eos % (Auto) 1 Baso % (Auto) 1 Neut # (Auto) 14.5 H Lymph # (Auto) 4.1 [place] # (Auto) 2.1 H Eos # (Auto) 0.1 Baso # (Auto) 0.1 Immature Gran # (Auto) 0.95 H Absolute Nucleated RBC 0.22 H Immature Gran % 4 H Nucleated RBC % 1 H Sodium 141 Potassium 4.7 Chloride 100 Carbon Dioxide 24.1 Anion Gap 17 H BUN 47 H Creatinine 4.2 H* D Estim Creat Clear Calc 18.0 L eGFR 11 L* BUN/Creatinine Ratio 11 L Glucose 79 Calculated Osmolality 292 Calcium 8.6 Corrected Calcium 8.9 Phosphorus 4.1 Magnesium 2.3 Total Bilirubin 0.5 AST 21 ALT 22 Alkaline Phosphatase 88 Total Protein 6.7 Albumin 3.6 Globulin 3.1 Albumin/Globulin Ratio 1.2 Triglycerides 106 ABG Interpretation ABG results: 08/06/25 08/07/25 11:42 04:24 ABG pH 7.41 7.42 ABG pCO2 41 38 ABG pO2 96 71 L D ABG HCO3 26 25 ABG O2 Saturation 98 95 ABG Base Excess 1 0 Assessment & Plan A&P Narrative bacteremia mrsa. she was quite ill before. bc slow to clear du noted in 2019. sacral, resolved per pt. [place] residence noted large staghorn calculus noted by renal hd since april 2025 dm II chf, severe will see again on Friday as I will not be here friday. needs bc neg at 48h to have new line/access. no riccardo osteo L leg by imaging. if you need a temp line, then place it. I tried to get more bc but was denied by system. so please get more bc tomorrow. . echo with low ef as noted before. Time Spent With Patient Time: Total time spent is greater than 50% in coordination of care (as documented) at patient's floor/unit and/or counseling patient:
[2025-08-10] MEDS: HEPARIN SOD LOCK SYR 100 UNIT/ML 500 UNIT STFIELD (14:52)
[2025-08-10] MEDS: LIDOCAINE INJ PF 1% 30 ML VIAL 20 ML EPID (14:52)
[2025-08-10] MEDS: ALBUMIN HUMAN-KJDA 25% IVPB 25 GM/100 ML BTL IV ×2 (16:14→17:21)
[2025-08-10] MEDS: HEPARIN SOD INJ 1000 UNIT/ML VIAL 10 ML 2500 UNIT IV (16:42)
[2025-08-10] MEDS: HEPARIN SOD INJ 1000 UNIT/ML VIAL 10 ML 3300 UNIT INDWELLCAT (16:44)
--- NOTE | 2025-08-10 18:25 | XR_ITS ---
EXAMINATION: AP chest single view TECHNIQUE: AP portable semiupright chest single view Date and time: 710, 5, 1847 hours, comparison August 10, 2000 2510 0 2:00 a.m. INDICATIONS: Post line placement FINDINGS: Right internal jugular temporary dialysis catheter tip right atrium Moderate enlargement cardiac contour Prominent vascular congestion with septal edema Prominent osteopenia IMPRESSION: Mild CHF Right internal jugular temporary dialysis catheter tip right atrium
--- NOTE | 2025-08-10 18:37 | PD.RESEVENT ---
Documentation for date of: 08/10/25 Event Note Event Note: On 08/10/25 at 18:15, rapid response was called for significant bleeding at temporary catheter insertion site. Per dialysis and floor nurses, they were turning the patient and were about to give midodrine when they found significant bleeding from the temporary catheter insertion site on pillow. Rapid was called at that time, and dialysis was stopped. Dr. Landry was notified at that time, and she stated that we could remove the catheter if needed. BP on L upper arm at 18:15 was 86/41; repeat BP at 18:37 was 112/66 from R calf. It was determined sutures were still holding the catheter in place, and that the catheter had not fallen out, but was merely bleeding. Stat CXR, lactate, INR, CBC were ordered. Dr. Landry is aware and the patient is on the dialysis list for tomorrow. This case was discussed with attending physician, Dr. Pruitt, and senior resident, Dr. Goff. Rom Evans, PGY1
[2025-08-10 19:03] LABS: Lactate (Lactic Acid) 1.2 mMol/L (0.4-2.0)
[2025-08-10 19:05] LABS: Basophils # (Auto) 0.1 Thou/mm3 (0.0-0.2); Basophils % (Auto) 1 % (0-2.5); Eosinophils # (Auto) 0.2 Thou/mm3 (0.0-0.5); Eosinophils % (Auto) 1 % (0-10); Hematocrit 32.2 % (36.0-46.0); Hemoglobin 10.0 g/dL (12.0-16.0); Immature Granulocytes Auto 0.99 Thou/mm3 (0.00-0.00); Lymphocytes # (Auto) 2.5 Thou/mm3 (1.0-4.8); Lymphocytes % (Auto) 17 % (10-50); Mean Corpuscular HGB Conc 31.1 g/dl (31.0-37.0); Mean Corpuscular Hemoglobin 30.9 pg (25.0-35.0); Mean Corpuscular Volume 99 fL (80-100); Monocytes # (Auto) 1.5 Thou/mm3 (0.0-0.8); Monocytes % (Auto) 10 % (0-12); Neutrophils # (Auto) 10.1 Thou/mm3 (1.8-7.7); Neutrophils % (Auto) 66 % (37-80); Nucleated Red Blood Cell # 0.09 Thou/mm3 (0.00-0.00); Nucleated Red Blood Cell % 1 /100 WBC (0); Platelet Count 195 Thou/mm3 (140-440); RDW Standard Deviation 55.8 fL (36.4-46.3); Red Blood Count 3.24 Miln/mm3 (4.00-5.20); White Blood Count 15.4 Thou/mm3 (3.6-11.0)
[2025-08-10 19:18] LABS: INR 1.1 (0.9-1.3); Prothrombin Time 11.9 Seconds (9.0-12.2)
[2025-08-11] VITALS (30 sets, daily range): BP systolic 75–131; BP diastolic 43–94; PULSE 61–117; RESP 16–20; TEMP 36.6–37.4; O2SAT 92–99
[2025-08-11] MEDS: MIDODRINE 5 MG TABLET 10 MG PO ×4 (00:45→17:35)
[2025-08-11] MEDS: LEVOTHYROXINE SODIUM 25 MCG TABLET 50 MCG PO (05:33)
[2025-08-11 05:41] LABS: Basophils # (Auto) 0.1 Thou/mm3 (0.0-0.2); Basophils % (Auto) 0 % (0-2.5); Eosinophils # (Auto) 0.3 Thou/mm3 (0.0-0.5); Eosinophils % (Auto) 2 % (0-10); Hematocrit 29.1 % (36.0-46.0); Hemoglobin 9.2 g/dL (12.0-16.0); Immature Granulocytes Auto 0.83 Thou/mm3 (0.00-0.00); Lymphocytes # (Auto) 2.0 Thou/mm3 (1.0-4.8); Lymphocytes % (Auto) 13 % (10-50); Mean Corpuscular HGB Conc 31.6 g/dl (31.0-37.0); Mean Corpuscular Hemoglobin 31.5 pg (25.0-35.0); Mean Corpuscular Volume 100 fL (80-100); Monocytes # (Auto) 1.4 Thou/mm3 (0.0-0.8); Monocytes % (Auto) 9 % (0-12); Neutrophils # (Auto) 11.0 Thou/mm3 (1.8-7.7); Neutrophils % (Auto) 71 % (37-80); Nucleated Red Blood Cell # 0.05 Thou/mm3 (0.00-0.00); Nucleated Red Blood Cell % 0 /100 WBC (0); Platelet Count 217 Thou/mm3 (140-440); RDW Standard Deviation 56.0 fL (36.4-46.3); Red Blood Count 2.92 Miln/mm3 (4.00-5.20); White Blood Count 15.6 Thou/mm3 (3.6-11.0)
[2025-08-11 06:09] LABS: Alanine Aminotransferase 14 U/L (10-49); Albumin, Serum 3.7 gm/dL (3.4-4.8); Albumin/Globulin Ratio 1.3 (1.2-2.2); Alkaline Phosphatase 73 U/L (46-116); Anion Gap 16 (7-16); Aspartate Amino Transferase 16 U/L (0-34); BUN/Creatinine Ratio 8 Ratio (12-20); Bilirubin,Total 0.5 mg/dL (0.3-1.2); Blood Urea Nitrogen 24 mg/dL (9-23); Calcium 8.3 mg/dL (8.3-10.6); Calcium (Corrected) 8.5 mg/dL (8.5-10.1); Carbon Dioxide 25.5 mMol/L (20.0-31.0); Chloride 99 mMol/L (98-107); Creatinine (Component) 3.2 mg/dL (0.6-1.3); Estimated Creatinine Clearance 23.7 mL/min (>60); Globulin 2.8 gm/dL (2.3-3.5); Glucose 181 mg/dL (74-106); Magnesium 1.8 mg/dL (1.6-2.6); Osmolality,Calculated 288 (275-295); Phosphorous 3.9 mg/dL (2.4-5.1); Potassium 3.7 mMol/L (3.4-5.1); Sodium 140 mMol/L (136-145); Total Protein 6.5 gm/dL (5.7-8.2); Triglycerides 77 mg/dL (30-150); Vancomycin,Random 28.8 mcg/mL; eGFR 16 See Note
--- NOTE | 2025-08-11 09:00 | XR_ITS ---
EXAMINATION: AP chest single view TECHNIQUE: AP portable semiupright chest single view Date and time: August 11, 2025, 0852 hours, comparison August 10, 2025 1847 hours INDICATION: Wheezing sepsis today. FINDINGS: Mild heart failure Mild enlargement cardiac contour Prominent vascular congestion with mild septal pulmonary edema No lobar pneumonia Right internal jugular dialysis catheter tip SVC Ectatic enlarged thoracic aorta IMPRESSION: Mild heart failure Moderate left pleural fluid
--- NOTE | 2025-08-11 09:49 | ESPR_ITS ---
Documentation for date of: 08/11/25 Subjective Subjective Interval history: Patient seen and examined at bedside; overnight had bleeding from temporary catheter site. resulting in rapid response. See rapid note. Exam Vital Signs Temp Pulse Resp BP Pulse Ox O2 Del Method O2 Flow Rate 98.2 F 90 18 105/55 L 93 L Nasal Cannula 2 08/11/25 08:05 08/11/25 08:05 08/11/25 08:05 08/11/25 08:05 08/11/25 08:05 08/11/25 08:05 08/11/25 08:05 Narrative Exam GENERAL: A&Ox3, no acute distress HEENT: mucous membranes moist, bilateral sclera anicteric CARDIOVASCULAR: regular rate and rhythm, S1/S2 present, no murmurs appreciated PULMONARY: clear to auscultation bilaterally, no rales/rhonchi/wheezes ABDOMINAL: soft, non-tender, non-distended, no rebound/guarding, bowel sounds present EXTREMITIES: 1+ BLE pitting edema SKIN: warm and dry, intact, no rashes NEURO: CN II-XII grossly intact, alert, following commands, L sided motor deficits, hand and feet flexed sensation intact, no neglect Objective Labs 08/11/25 04:55 08/11/25 04:55 Labs: Laboratory Results - last 24 hr 08/10/25 08/11/25 18:41 04:55 WBC 15.4 H D 15.6 H RBC 3.24 L 2.92 L Hgb 10.0 L 9.2 L Hct 32.2 L 29.1 L MCV 99 100 MCH 30.9 31.5 MCHC 31.1 31.6 RDW Std Deviation 55.8 H 56.0 H Plt Count 195 217 Neut % (Auto) 66 71 Lymph % (Auto) 17 13 [place] % (Auto) 10 9 Eos % (Auto) 1 2 Baso % (Auto) 1 0 Neut # (Auto) 10.1 H 11.0 H Lymph # (Auto) 2.5 2.0 [place] # (Auto) 1.5 H 1.4 H Eos # (Auto) 0.2 0.3 Baso # (Auto) 0.1 0.1 Immature Gran # (Auto) 0.99 H 0.83 H Absolute Nucleated RBC 0.09 H 0.05 H Immature Gran % 6 H 5 H Nucleated RBC % 1 H 0 PT 11.9 INR 1.1 Sodium 140 Potassium 3.7 D Chloride 99 Carbon Dioxide 25.5 Anion Gap 16 BUN 24 H Creatinine 3.2 H D Estim Creat Clear Calc 23.7 L eGFR 16 L BUN/Creatinine Ratio 8 L Glucose 181 H D Calculated Osmolality 288 Lactic Acid 1.2 Calcium 8.3 Corrected Calcium 8.5 Phosphorus 3.9 Magnesium 1.8 Total Bilirubin 0.5 AST 16 ALT 14 Alkaline Phosphatase 73 Total Protein 6.5 Albumin 3.7 Globulin 2.8 Albumin/Globulin Ratio 1.3 Triglycerides 77 Random Vancomycin 28.8 Blood Type B Positive Antibody Screen NEGATIVE Blood Bank Wristband ID Yes ABG Interpretation ABG results: 08/06/25 08/07/25 11:42 04:24 ABG pH 7.41 7.42 ABG pCO2 41 38 ABG pO2 96 71 L D ABG HCO3 26 25 ABG O2 Saturation 98 95 ABG Base Excess 1 0 Quality Measures Quality Measures none Assessment & Plan Assessment Current Active Medications: Generic Name Dose Route Start Last Admin Trade Name Freq PRN Reason Stop Dose Admin Acetaminophen 650 mg 08/06/25 15:58 Acetaminophen 325 Mg Tablet PO 09/05/25 15:57 Q6H PRN Fever >100.4 or pain 1-3 Hydrocodone Bitart/Acetaminophen 1 tab 08/06/25 15:58 08/07/25 11:49 Hydrocodone/Apap 5/325 Tablet PO 08/11/25 15:57 1 tab Q4HR PRN Administration PAIN SCALE 4-6 (Moderate Amiodarone HCl 200 mg 08/07/25 09:35 08/10/25 20:33 Amiodarone Hcl 200 Mg Tablet PO 09/06/25 09:34 200 mg BID RIANNA Administration Dextrose 25 ml 08/06/25 16:07 08/08/25 11:38 Dextrose 50%-Water Inj 50 Ml Syringe IV 09/05/25 16:06 25 ml Q15MIN PRN Administration BG 50-70 responsive npo pt Dextrose 50 ml 08/06/25 16:07 Dextrose 50%-Water Inj 50 Ml Syringe IV 09/05/25 16:06 Q15MIN PRN BG <50 OR BG <70 & pt unresponsive Docusate Sodium 100 mg 08/07/25 09:00 08/10/25 09:08 Docusate Sod 100 Mg Capsule PO 09/06/25 08:59 100 mg QDAY RIANNA Administration Protocol Glucagon 1 mg 08/06/25 16:07 Glucagon Inj 1 Mg Vial IM Q15MIN PRN BG <70, and no IV access Heparin Sodium (Porcine) 5,000 unit 08/06/25 16:15 08/09/25 21:37 Heparin Sod Inj 5000 Unit/Ml Vial SC 08/20/25 16:14 5,000 unit On Hold: 08/10/25 00:00 Q8HR RIANNA Administration Heparin Sodium (Porcine) 2,500 unit 08/07/25 10:06 08/10/25 16:42 Heparin Sod Inj 1000 Unit/Ml Vial 10 Ml IV 08/13/25 10:05 2,500 unit X1 PRN Administration DIALYSIS Heparin Sodium (Porcine) 3,300 unit 08/07/25 11:50 08/10/25 16:44 Heparin Sod Inj 1000 Unit/Ml Vial 10 Ml INDWELLCAT 08/21/25 11:49 3,300 unit X1 PRN Administration DIALYSIS Hydromorphone HCl 0.5 mg 08/07/25 15:36 Hydromorphone Inj 2 Mg/Ml Vial IVP 08/12/25 15:35 Q4HR PRN PAIN SCALE 7-10 (Severe) Levothyroxine Sodium 50 mcg 08/08/25 06:00 08/11/25 05:33 Levothyroxine Sodium 25 Mcg Tablet PO 09/07/25 05:59 50 mcg ACBR RIANNA Administration Midodrine 10 mg 08/07/25 09:40 08/11/25 05:33 Midodrine 5 Mg Tablet PO 09/06/25 09:39 10 mg Q6HR RIANNA Administration Ondansetron HCl 4 mg 08/06/25 15:58 Ondansetron Inj 2 Mg/Ml Inj 2 Ml IVP 09/05/25 15:57 Q6H PRN NAUSEA OR VOMITING Protocol Pharmacy Consult 1 each 08/11/25 09:00 Vancomycin Pharmacy To Dose 1 Each Each IV 09/10/25 08:59 QDAY PRN CONSULT Pharmacy Consult 1 each 08/11/25 08:54 Pharmacy Renal Dose Adjustment 1 Ea XX 09/10/25 08:53 PRN PRN CONSULT Vitamin B Complex/Vit C/Folic Acid 1 tab 08/08/25 16:30 08/10/25 09:08 Vit B12/Vit C/Fa (Nephrovite) Tablet PO 09/07/25 16:29 1 tab QDAY RIANNA Administration Plan 64-year-old female with PMH of 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 Landry, and history of staghorn calculi, was transferred to ED from a nursing facility with lethargy, hypotensieon, and fever. Patient admitted to ICU for sepsis workup and downgraded to floors on 08/07/25. #Septic shock (resolving) secondary to #Sepsis (resolving) caused by #Dialysis catheter infection #NSTEMI type II 2/ blood cultures 08/06/25 positive for GPCs 08/06/25 1/2 BCx + MRSA 08/06/25 UCx pending 08/06/25- Troponin peaked 1.423, then fell to 1.175 08/07/25 1/2 BCx +MRSA 08/08/25 2/2 BCx +GPC in 1/2, MRSA in 1/2; catheter tip culture + MRSA 08/09/25 2/2 BCx +GPC; one is known to be same MRSA as on 08/08 Plan: IV vancomycin Remove old dialysis catheter 08/08/25; temporary catheter placed 08/10/25; Plan to place permanent catheter when 48 hours of negative cultures achieved. Follow up blood cx ID consulted, thank you for recs- vancomycin alone, B12 tablet daily, catheter needs 48h negative cultures Will get JONES to check for cardiac vegetations Obtained repeat BCx 08/11 #End-stage renal disease on dialysis (T/T/F) #Electrolyte abnormalities #Hyperphosphatemia Had dialysis today Plan: Hemodialysis (T/T/F) Avoid nephrotoxic agents, renally dose medicines Exchange catheter as above Give midodrine after dialysis if BP low #A-fib [id number]: 5 Patient has history of A-fib. Plan: ? Monitor EKG - Amiodarone 200 BID - K > 4, Mg > 2 #HFrEF (15-20%), stable Longstanding hx. And previously patient has refused cardiac cath, continues to refuse. 08-07-25 Echo shows LV size moderately enlarged and severe global hypokinesis and severe systolic dysfunction estimated EF 15 to 20%. RV chamber size normal systolic function mildly reduced, RVSP 35 to 40 mmHg, mild to moderate pulmonary hypertension, moderate MR, mild to moderate TR and trace AI, LA severely enlarged, RA mildly enlarged Plan: ? Caution with fluids - Keep K>4 and Mg>2 at all times #Pressure ulcers Sacral and decubitous ulcer and lateral leg ulcers. Do not appear cellulitic, more granulotamous. Ankle has a purulent base with oozing without cellultic changes. Plan: Continue to monitor, wound care referral placed #Hypothyroidism Patient has history of hypothyroidism. Plan: Restart home levothyroxine 50mcg #Hx of CVA, residual L-sided hemiplegia Stable Disposition: Med-Surg DVT prophylaxis: heparin 5000u q8h GI prophylaxis: none Diet: Renal, 1.8L fluid restriction Lines: PIV CODE STATUS: Full code This case was discussed with my attending physician, Dr. Weems, and senior resident, Dr. Kimble. Rom Evans Attending Provider Attestation/Addendum I reviewed labs, imaging, EKG, home medications and prior available records. Face to face evaluation was performed by me. I have personally examined the patient and discussed assessment and plan with the IM team. I reviewed the resident note and agree with the plan with exceptions as below. Sepsis secondary to dialysis line infection post removal MRSA bacteremia HFrEF EF 15 to 20% Atrial fibrillation with controlled ventricular rhythm Continue IV vancomycin Repeated blood cultures on 08/11 Status post new dialysis which is temporarily Need permacath when cultures are negative for 48 hours Rapid response was called in the evening of 08/10 for bleeding at the catheter site. See event note Consulted cardiology for JONES: Will wait for ID input Continue amiodarone
[2025-08-11] MEDS: DOCUSATE SOD 100 MG CAPSULE PO (09:54)
[2025-08-11] MEDS: AMIODARONE HCL 200 MG TABLET PO ×2 (09:54→21:07)
[2025-08-11] MEDS: VIT B12/Vit C/FA (Nephrovite) TABLET 1 TAB PO (09:54)
--- NOTE | 2025-08-11 10:15 | PC.NURSE ---
notified clement zamora of pending order for mary. patient need to be placed on NPO and to notified attending.
[2025-08-11] MEDS: HEPARIN SOD INJ 1000 UNIT/ML VIAL 10 ML 2500 UNIT IV (11:29)
[2025-08-11] MEDS: ALBUMIN HUMAN-KJDA 25% IVPB 25 GM/100 ML BTL IV (11:52)
[2025-08-11] MEDS: HEPARIN SOD INJ 1000 UNIT/ML VIAL 10 ML 2200 UNIT INDWELLCAT (14:39)
--- NOTE | 2025-08-11 18:04 | PD.RESCONSUL ---
HPI Data of Consult Patient: known to practice within the last 3 years Consult date: 08/11/25 Requesting Physician: Homar Giang MD Admitting Provider: Hien Ervin MD Attending Provider: Bishnu Barcenas MD Primary Care Provider: aSida Mejía MD Consult Narrative History of present illness: Ms. Elizondo is a 64-year-old female with past medical history of CVA, atrial fibrillation on Eliquis, HFrEF EF 15 to 20%, dilated cardiomyopathy, ESRD on hemodialysis Friday//Friday, hypothyroidism, iron deficiency anemia, nephrolithiasis and mood disorder who presented to [facility] emergency department on 08/06/2025, patient found to be lethargic and hypotensive with fever and was admitted to intensive care unit for distributive shock management. Further hospitalization course patient found to have infected dialysis catheter which was removed by interventional radiology, patient had temporary dialysis catheter placed. Post catheter exchange patient continues to be bacteremic and cardiology service consulted for JONES to rule out endocarditis. Patient seen at bedside, alert and oriented x 4, has no current complaints. Patient receiving hemodialysis, denies any dysphagia history of GI bleed and swallowing problems. Case was discussed with primary team, primary team to reach out to infectious disease to confirm if JONES is indicated. Will plan accordingly based on infectious disease recommendations cc:: cc: Homar Giang MD Review of Systems Review of Systems Systems Reviewed: All systems reviewed, normal except as documented Past Medical History Past Medical History Comments PMH COMMENT: Past medical history: As above Surgical Hx: None per patient FHx: Denies familial cardiac history Social Hx: Former smoker Denies alcohol or recreational/illict drug use Allergies: cephalexin anaphylaxis, TMP-SMX anaphylaxis Exam Vital Signs Temp Pulse Resp BP Pulse Ox O2 Del Method O2 Flow Rate 99.3 F 109 H 16 104/74 92 L Nasal Cannula 2 08/11/25 15:50 08/11/25 17:35 08/11/25 15:50 08/11/25 17:35 08/11/25 15:50 08/11/25 15:50 08/11/25 15:50 Narrative Exam GENERAL: A&Ox3, no acute distress HEENT: mucous membranes moist, bilateral sclera anicteric CARDIOVASCULAR: regular rate and rhythm, S1/S2 present, no murmurs appreciated PULMONARY: clear to auscultation bilaterally, no rales/rhonchi/wheezes ABDOMINAL: soft, non-tender, non-distended, no rebound/guarding, bowel sounds present EXTREMITIES: 1+ BLE pitting edema SKIN: warm and dry, intact, no rashes NEURO: CN II-XII grossly intact, alert, following commands, L sided motor deficits, hand and feet flexed sensation intact, no neglect Results Labs 08/11/25 04:55 08/11/25 04:55 Labs: Short CBC 08/10/25 08/11/25 Range/Units 18:41 04:55 WBC 15.4 H D 15.6 H (3.6-11.0) Thou/mm3 Hgb 10.0 L 9.2 L (12.0-16.0) g/dL Hct 32.2 L 29.1 L (36.0-46.0) % Plt Count 195 217 (140-440) Thou/mm3 BMP 08/11/25 04:55 Sodium 140 Potassium 3.7 D Chloride 99 Carbon Dioxide 25.5 BUN 24 H Creatinine 3.2 H D Glucose 181 H D Calcium 8.3 Liver Function 08/11/25 Range/Units 04:55 Total Bilirubin 0.5 (0.3-1.2) mg/dL AST 16 (0-34) U/L ALT 14 (10-49) U/L Alkaline Phosphatase 73 (46-116) U/L Albumin 3.7 (3.4-4.8) gm/dL ABG Interpretation ABG results: 08/06/25 08/07/25 11:42 04:24 ABG pH 7.41 7.42 ABG pCO2 41 38 ABG pO2 96 71 L D ABG HCO3 26 25 ABG O2 Saturation 98 95 ABG Base Excess 1 0 Quality Measures Quality Measures none Medications Home Medications and Allergies Home Medications ?Medication ?Instructions ?Recorded ?Confirmed ?Type magnesium hydroxide 400 mg/5 mL 30 ml PO Q72H PRN CONSTIPATION #0 09/11/15 08/06/25 History oral suspension (Milk of Magnesia) mL multivitamin with minerals 1 tab PO QDAY ##0 09/11/15 08/06/25 History ascorbic acid (vitamin C) 500 mg 500 mg PO BID 03/12/19 08/06/25 History tablet brimonidine 0.2 % eye drops 1 drp ophthalmic (eye) HS 05/01/25 08/06/25 History divalproex 250 mg tablet,extended 250 mg PO TID 05/01/25 08/06/25 History release 24 hr (Depakote ER) hydrocodone 10 mg-acetaminophen 1 tab PO Q6H 05/01/25 08/06/25 History 325 mg tablet hydroxyzine HCl 25 mg tablet 25 mg PO BID 05/01/25 08/06/25 History loperamide 2 mg tablet 4 mg PO Q12H PRN loose stool 05/01/25 08/06/25 History loratadine 10 mg tablet 10 mg PO Q24H 05/01/25 08/06/25 History melatonin 3 mg capsule 3 mg PO HS PRN sleep 05/01/25 08/06/25 History ondansetron HCl 4 mg tablet 4 mg PO Q6H 05/01/25 08/06/25 History polyethylene glycol 3350 17 gram 17 g PO QDAY 05/01/25 08/06/25 History oral powder packet psyllium husk 0.52 gram capsule 0.52 g PO BID 05/01/25 08/06/25 History (Fiber Laxative (psyllium husk)) ropinirole 1 mg tablet 1 mg PO BID 05/01/25 08/06/25 History sennosides 8.6 mg-docusate sodium 2 tab-cap PO QDAY 05/01/25 08/06/25 History 50 mg tablet (Senna-S) sodium phosphates 19 gram-7 118 ml GA Q72H PRN constipation 05/01/25 08/06/25 History gram/118 mL enema (Enema) atorvastatin 20 mg tablet (Lipitor) 20 mg PO QPM 06/03/25 08/06/25 History bisacodyl 10 mg rectal suppository 10 mg GA Q72H PRN constipation if 06/03/25 08/06/25 History (Dulcolax (bisacodyl)) MOM not effective glucagon 1 mg/0.2 mL subcutaneous 1 mg subcut Q15H PRN symptomatic 06/03/25 08/06/25 History auto-injector hypoglycemia BS <70 midodrine 10 mg tablet 10 mg PO Q6H 06/03/25 08/06/25 History naloxone 4 mg/actuation nasal 1 spray intranasal Q2M PRN opioid 06/03/25 08/06/25 History spray (Rextovy) overdose amiodarone 200 mg tablet 200 mg PO BID 08/06/25 08/06/25 History apixaban 5 mg tablet (Eliquis) 5 mg PO BID 08/06/25 08/06/25 History Allergies Allergy/AdvReac Type Severity Reaction Status Date / Time Cephalexin Monohydrate Allergy Severe Anaphylaxis Verified 05/31/25 01:13 sulfamethoxazole Allergy Severe Anaphylaxis Verified 05/31/25 01:13 trimethoprim Allergy Severe Anaphylaxis Verified 05/31/25 01:13 Visit Medications Acetaminophen (Acetaminophen 325 Mg Tablet) 650 mg PO Q6H PRN PRN Reason: Fever >100.4 or pain 1-3 Stop: 09/05/25 15:57 Amiodarone HCl (Amiodarone Hcl 200 Mg Tablet) 200 mg PO BID [facility] Stop: 09/06/25 09:34 Last Admin: 08/11/25 09:54 Dose: 200 mg Dextrose (Dextrose 50%-Water Inj 50 Ml Syringe) 25 ml IV Q15MIN PRN PRN Reason: BG 50-70 responsive npo pt Stop: 09/05/25 16:06 Last Admin: 08/08/25 11:38 Dose: 25 ml Dextrose (Dextrose 50%-Water Inj 50 Ml Syringe) 50 ml IV Q15MIN PRN PRN Reason: BG <50 OR BG <70 & pt unresponsive Stop: 09/05/25 16:06 Docusate Sodium (Docusate Sod 100 Mg Capsule) 100 mg PO QDAY [facility]; Protocol Stop: 09/06/25 08:59 Last Admin: 08/11/25 09:54 Dose: 100 mg Glucagon (Glucagon Inj 1 Mg Vial) 1 mg IM Q15MIN PRN PRN Reason: BG <70, and no IV access Heparin Sodium (Porcine) (Heparin Sod Inj 5000 Unit/Ml Vial) 5,000 unit SC Q8HR [facility] On Hold: 08/10/25 00:00 Stop: 08/20/25 16:14 Last Admin: 08/09/25 21:37 Dose: 5,000 unit Heparin Sodium (Porcine) (Heparin Sod Inj 1000 Unit/Ml Vial 10 Ml) 2,200 unit INDWELLCAT PRN PRN PRN Reason: DIALYSIS Stop: 08/25/25 14:26 Last Admin: 08/11/25 14:39 Dose: 2,200 unit Hydromorphone HCl (Hydromorphone Inj 2 Mg/Ml Vial) 0.5 mg IVP Q4HR PRN PRN Reason: PAIN SCALE 7-10 (Severe) Stop: 08/12/25 15:35 Albumin Human (Albuminex 25% Ivpb) 25 gm in 100 mls @ 0 mls/hr IV Q30MIN PRN PRN Reason: To maintain SBP>90 Last Admin: 08/11/25 11:52 Dose: 300 mls/hr Levothyroxine Sodium (Levothyroxine Sodium 25 Mcg Tablet) 50 mcg PO ACBR [facility] Stop: 09/07/25 05:59 Last Admin: 08/11/25 05:33 Dose: 50 mcg Midodrine (Midodrine 5 Mg Tablet) 10 mg PO Q6HR [facility] Stop: 09/06/25 09:39 Last Admin: 08/11/25 17:35 Dose: 10 mg Ondansetron HCl (Ondansetron Inj 2 Mg/Ml Inj 2 Ml) 4 mg IVP Q6H PRN; Protocol PRN Reason: NAUSEA OR VOMITING Stop: 09/05/25 15:57 Pharmacy Consult (Vancomycin Pharmacy To Dose 1 Each Each) 1 each IV QDAY PRN PRN Reason: CONSULT Stop: 09/10/25 08:59 Pharmacy Consult (Pharmacy Renal Dose Adjustment 1 Ea) 1 each XX PRN PRN PRN Reason: CONSULT Stop: 09/10/25 08:53 Vitamin B Complex/Vit C/Folic Acid (Vit B12/Vit C/Fa (Nephrovite) Tablet) 1 tab PO QDAY [facility] Stop: 09/07/25 16:29 Last Admin: 08/11/25 09:54 Dose: 1 tab Discontinued Medications Acetaminophen (Acetaminophen 500 Mg Tablet) 1,000 mg PO X1 ONE Stop: 08/06/25 09:14 Last Admin: 08/06/25 09:56 Dose: 1,000 mg Hydrocodone Bitart/Acetaminophen (Hydrocodone/Apap 5/325 Tablet) 1 tab PO Q4HR PRN PRN Reason: PAIN SCALE 4-6 (Moderate Stop: 08/11/25 15:57 Last Admin: 08/08/25 14:15 Dose: 1 tab Aspirin (Aspirin 81 Mg Chew) 324 mg PO X1 ONE Stop: 08/06/25 11:14 Last Admin: 08/06/25 11:46 Dose: 324 mg Diltiazem HCl (Diltiazem Inj 5 Mg/Ml Vial 5 Ml) 15 mg IV X1 ONE Stop: 08/06/25 09:44 Last Admin: 08/06/25 11:55 Dose: Not Given Epoetin Jemal (Epoetin Jemal-Epbx Inj 10,000 Unit/Ml Vial (Non-Esrd)) 10,000 unit IV X1 ONE Stop: 08/08/25 09:01 Last Admin: 08/08/25 09:19 Dose: 10,000 unit Heparin Sodium (Beef Lung) (Heparin Sod Lock Syr 100 Unit/Ml) 500 unit STFIELD X1 ONE Stop: 08/10/25 14:47 Last Admin: 08/10/25 14:52 Dose: 500 unit Heparin Sodium (Porcine) (Heparin Sod Inj 1000 Unit/Ml Vial 10 Ml) 2,500 unit IV X1 PRN PRN Reason: DIALYSIS Stop: 08/13/25 10:05 Last Admin: 08/11/25 11:29 Dose: 2,500 unit Heparin Sodium (Porcine) (Heparin Sod Inj 1000 Unit/Ml Vial 10 Ml) 3,300 unit INDWELLCAT X1 PRN PRN Reason: DIALYSIS Stop: 08/21/25 11:49 Last Admin: 08/10/25 16:44 Dose: 3,300 unit Lactated Ringer's (Lactated Ringers) 1,000 mls @ 1,000 mls/hr IV .Q1H ONE Stop: 08/06/25 10:07 Last Infusion: 08/06/25 12:02 Dose: Infused Cefepime HCl 2 gm/ Sodium (Chloride) 50 mls @ 100 mls/hr IV X1 ONE Stop: 08/06/25 09:44 Last Admin: 08/06/25 10:29 Dose: Not Given Vancomycin HCl 2,000 mg/ (Sodium Chloride) 500 mls @ 150 mls/hr IV X1 ONE Stop: 08/06/25 12:34 Last Infusion: 08/06/25 14:19 Dose: Infused Diltiazem/Sodium Chloride (Diltiazem In Ns 100 Mg) 100 mg in 100 mls @ 5 mls/hr IV .Q20H [facility] Stop: 09/05/25 09:42 Last Admin: 08/07/25 01:04 Dose: Not Given Norepinephrine/Dextrose (Levophed In D5w 8mg/250ml) 8 mg in 250 mls @ 10.631 mls/hr IV .[id number] PRN; Protocol PRN Reason: PER PROTOCOL Stop: 09/05/25 11:13 Last Titration: 08/07/25 02:00 Dose: 0 mcg/kg/min, 0 mls/hr Sodium Chloride (Ns) 1,000 mls @ 999 mls/hr IV .Q1H1M ONE Stop: 08/06/25 12:14 Last Admin: 08/06/25 11:48 Dose: Not Given Piperacillin/Tazobactam/Dextrose (Zosyn) 3.375 gm in 50 mls @ 100 mls/hr IV Q8HR [facility]NA; Protocol Stop: 08/13/25 16:05 Last Admin: 08/08/25 05:21 Dose: 100 mls/hr Vancomycin HCl 2,000 mg/ (Sodium Chloride) 500 mls @ 150 mls/hr IV X1 ONE Stop: 08/07/25 11:44 Last Admin: 08/07/25 11:49 Dose: 150 mls/hr Albumin Human (Albuminex 25% Ivpb) 25 gm in 100 mls @ 100 mls/min IV PRN PRN PRN Reason: DIALYSIS Last Admin: 08/10/25 17:21 Dose: 300 mls/min Lactated Ringer's (Lactated Ringers) 500 mls @ 999 mls/hr IV .Q31M ONE Stop: 08/10/25 18:57 Albumin Human (Albuminex 25% Ivpb) 25 gm in 100 mls @ 100 mls/hr IV Q30MIN PRN PRN Reason: DIALYSIS Insulin Human Lispro (Insulin Lispro (Admelog) 1 Unit/0.01 Ml Unit) 0 unit SC Q6HR [facility]; Protocol Stop: 09/05/25 17:59 Last Admin: 08/09/25 05:27 Dose: Not Given Insulin Human Lispro (Insulin Lispro (Admelog) 1 Unit/0.01 Ml Unit) 0 unit SC ACHS [facility]IANNA; Protocol Stop: 09/08/25 11:59 Ketorolac Tromethamine (Ketorolac Inj 30 Mg/Ml Vial) 15 mg IVP X1 ONE Stop: 08/06/25 09:14 Last Admin: 08/06/25 09:51 Dose: 15 mg Lidocaine HCl (Lidocaine Inj Pf 1% 30 Ml Vial) 20 ml EPID X1 ONE Stop: 08/10/25 14:47 Last Admin: 08/10/25 14:52 Dose: 20 ml Melatonin (Melatonin 3 Mg Tablet) 6 mg PO X1 ONE Stop: 08/07/25 23:57 Last Admin: 08/08/25 00:40 Dose: 6 mg Methylprednisolone Sodium Succinate (Methylprednisolone Sod Succ 62.5 Mg/Ml 2ml Vial) 125 mg IVP X1 ONE Stop: 08/06/25 09:16 Last Admin: 08/06/25 09:51 Dose: 125 mg Midodrine (Midodrine 5 Mg Tablet) 10 mg PO Q6HR PRN PRN Reason: MAP >65 Stop: 09/05/25 16:09 Midodrine (Midodrine 5 Mg Tablet) 10 mg PO Q6HR RIANNA Stop: 09/06/25 11:59 Morphine Sulfate (Morphine Sulf Inj 4 Mg/Ml Vial) 2 mg IV X1 ONE Stop: 08/06/25 09:09 Last Admin: 08/06/25 11:42 Dose: Not Given Morphine Sulfate (Morphine Sulf Inj 4 Mg/Ml Vial) 1 mg IVP Q4HR PRN PRN Reason: PAIN SCALE 7-10 (Severe Stop: 08/11/25 15:57 Ondansetron HCl (Ondansetron Inj 2 Mg/Ml Inj 2 Ml) 4 mg IVP X1 ONE; Protocol Stop: 08/06/25 09:09 Last Admin: 08/06/25 09:51 Dose: 4 mg Pharmacy Consult (Vancomycin Pharmacy To Dose 1 Each Each) 1 each IV QDAY PRN PRN Reason: SEPSIS Stop: 09/06/25 08:59 Assessment & Plan Plan Assessment and plan: Summary:Ms. Elizondo is a 64-year-old female with past medical history of CVA, atrial fibrillation on Eliquis, HFrEF EF 15 to 20%, dilated cardiomyopathy, ESRD on hemodialysis Friday//Friday, hypothyroidism, iron deficiency anemia, nephrolithiasis and mood disorder who presented to [facility] emergency department on 08/06/2025, patient found to be lethargic and hypotensive with fever and was admitted to intensive care unit for distributive shock management. Further hospitalization course patient found to have infected dialysis catheter which was removed by interventional radiology, patient had temporary dialysis catheter placed. Post catheter exchange patient continues to be bacteremic and cardiology service consulted for JONES to rule out endocarditis. #Bacteremia #Rule out endocarditis Patient continues to have bacteremia post removal of dialysis catheter which was thought to be infected. Temporary dialysis catheter placed, latest blood cultures still positive for GPC. Infectious diseases following, per ID patient's likely source thought to be dialysis catheter. However primary team consulted for JONES to rule out endocarditis. Please clarify with infectious disease regarding the need for JONES Transthoracic echocardiogram reviewed, no major changes in valvular gradients compared to previous echocardiograms, low suspicion of bacterial endocarditis. Antibiotics per ID recommendations, management per primary team Patient denies any kind of swallowing problems or any kind of esophageal interventions or previous surgeries. Patient denies any kind of gastric ulcers bleeding and any other hematemesis or hematochezia. Patient denies any issues with anesthesia previously. Patient explained all the risks, benefits and alternatives of JONES including the risk of perforation, bleeding, respiratory failure secondary to sedation, injury to teeth gums esophagus and stomach. Patient understands all risks and benefits and provided consent for the procedure. We will keep her n.p.o. overnight and plan for JONES in the morning. #Heart failure with severely reduced ejection fraction, EF 15 to 20% #Dilated cardiomyopathy Patient has history of severely reduced ejection fraction heart failure. Has been seen in the past, well-known to practice. Recommended GDMT in the past however not noted on patient's med reconciliation. Patient has significant hypotension on midodrine, unable to tolerate GDMT Transthoracic echo 08/07/2025 shows 1. Left ventricle size is moderately enlarged and severe global hypokenesis and severe systolic dysfunction.. Estimated ejection fraction is 15-20%. 2. Right ventricle chamber size is normal and systolic function is mildly reduced. Estimated RVSP is 35-40 mmHg. Mild to moderate pulmonary hypertension. 3. Moderate MR, mild to moderate TR and trace AI. 4. The left atrium is severely enlarged. The right atrium is mildly enlarged. 5. Not well visualized IVC with estimated RA pressure 8 mmHg. Recommendations: - Continue hemodialysis to maintain euvolemia status - Introduce GDMT as tolerated, continue midodrine #Atrial fibrillation, by history Patient has history of atrial fibrillation on Eliquis CHADSVASC score 4, 4.8% stroke risk per year HASBLED 3 EKG 08/05/2025 shows A-fib with RVR ? Continue amiodarone 200 mg p.o. twice daily ? We recommend heparin gtt. if no contraindications and procedures are planned and Eliquis is contraindicated. ? Keep potassium greater than 4 and magnesium greater than 2 at all times #NSTEMI type II secondary to demand ischemia Patient denies any chest pain troponin initially elevated in setting of distributive shock #ESRD on hemodialysis #Electrolyte abnormalities #Hyperphosphatemia #Pressure ulcers #Hypothyroidism #History of CVA, residual left-sided hemiplegia ?Management per primary team Thank you for the consult and allowing to participate in the care of the patient. Cardiology will continue to follow. Case discussed with Attending Physician Dr. Bishnu Williamson MD Internal Medicine PGY-2 Disclaimer: This note was dictated by speech recognition. Minor errors in photographic equipment assembler may be present due to voice recognition software. Attending Provider Attestation/Addendum I have personally seen and examined the patient separately on the above date of service and discussed the plan of care with the resident. I reviewed the resident Dr. Kimani Williamson consultation progress note and agree with the resident findings and plan in the note above and have also edited the documentation to reflect my findings and plan. Bishnu Barcenas M.D. Interventional Cardiology
--- NOTE | 2025-08-11 21:18 | ESPR_ITS ---
RE: RUBÉN VIVAR : 1960 DATE OF SERVICE: 08/11/2025 HISTORY OF PRESENT ILLNESS: Briefly, she is a 64-year-old woman with history of CVA, atrial fibrillation, heart failure with reduced ejection fraction of 15-20%, moderate pulmonary hypertension, ESRD on dialysis since 04/30/2025, dialyzing every Friday, , Friday at [facility], who had dialysis today. The patient presented to the emergency room on 08/06/2025 with fever and confusion. Her blood cultures and catheter tip grew MRSA. Tunneled dialysis cath was removed and was replaced by a temporary catheter for dialysis. The patient is currently on vancomycin IV. Last dialysis was today. PHYSICAL EXAMINATION: GENERAL: She is awake and alert. VITAL SIGNS: Heart rate of 109, temperature 97.9, blood pressure of 110/79. HEENT: Anicteric sclerae. Normocephalic. NECK: Supple. No JVD. CHEST AND LUNGS: Symmetric expansion, clear breath sounds. CARDIAC: Without murmur. ABDOMEN: Soft and nontender. EXTREMITIES: 2+ bilateral pitting edema. LABORATORY DATA: Hemoglobin 9.2, WBC 15,600, platelet count 117,000. Sodium 140, potassium 3.7, chloride 99, CO2 25.5, BUN 24, creatinine 3.2, glucose 181. ASSESSMENT: 1. End-stage renal disease. 2. Persistent MRSA Bacteremia 3. Anemia of chronic disease. 4. History of staghorn calculi. 5. Heart failure with reduced ejection fraction of 15-20%. 6. Hypertension. PLAN: A plan is to remove her temporary dialysis catheter and place a tunneled dialysis catheter once blood cultures have been negative from 24-48 hours. After on Friday , may remove dialysis catheter. If BC X 2 bacteremia persists then she will need a JONES to rule out endocarditis. We will continue supportive treatment and observation. DT: 21:07:20 TT: 21:17:00 Ref: [id number] - TID: [id number] MTDD
[2025-08-12] VITALS (13 sets, daily range): BP systolic 97–123; BP diastolic 56–84; PULSE 80–113; RESP 18–20; TEMP 35.7–37.2; O2SAT 92–100
[2025-08-12] MEDS: MIDODRINE 5 MG TABLET 10 MG PO ×4 (00:43→18:43)
[2025-08-12] MEDS: HYDROmorphone INJ 2 MG/ML VIAL 0.5 MG IVP (04:46)
[2025-08-12 05:10] LABS: Basophils # (Auto) 0.1 Thou/mm3 (0.0-0.2); Basophils % (Auto) 1 % (0-2.5); Eosinophils # (Auto) 0.3 Thou/mm3 (0.0-0.5); Eosinophils % (Auto) 2 % (0-10); Hematocrit 33.7 % (36.0-46.0); Hemoglobin 10.3 g/dL (12.0-16.0); Immature Granulocytes Auto 1.04 Thou/mm3 (0.00-0.00); Lymphocytes # (Auto) 3.1 Thou/mm3 (1.0-4.8); Lymphocytes % (Auto) 16 % (10-50); Mean Corpuscular HGB Conc 30.6 g/dl (31.0-37.0); Mean Corpuscular Hemoglobin 30.8 pg (25.0-35.0); Mean Corpuscular Volume 101 fL (80-100); Monocytes # (Auto) 2.3 Thou/mm3 (0.0-0.8); Monocytes % (Auto) 12 % (0-12); Neutrophils # (Auto) 12.8 Thou/mm3 (1.8-7.7); Neutrophils % (Auto) 65 % (37-80); Nucleated Red Blood Cell # 0.04 Thou/mm3 (0.00-0.00); Nucleated Red Blood Cell % 0 /100 WBC (0); Platelet Count 315 Thou/mm3 (140-440); RDW Standard Deviation 56.7 fL (36.4-46.3); Red Blood Count 3.34 Miln/mm3 (4.00-5.20); White Blood Count 19.6 Thou/mm3 (3.6-11.0)
[2025-08-12] MEDS: LEVOTHYROXINE SODIUM 25 MCG TABLET 50 MCG PO (05:46)
[2025-08-12 05:52] LABS: Alanine Aminotransferase 19 U/L (10-49); Albumin, Serum 4.5 gm/dL (3.4-4.8); Albumin/Globulin Ratio 1.5 (1.2-2.2); Alkaline Phosphatase 83 U/L (46-116); Anion Gap 13 (7-16); Aspartate Amino Transferase 24 U/L (0-34); BUN/Creatinine Ratio 5 Ratio (12-20); Bilirubin,Total 0.5 mg/dL (0.3-1.2); Blood Urea Nitrogen 14 mg/dL (9-23); Calcium 9.4 mg/dL (8.3-10.6); Calcium (Corrected) 9.4 mg/dL (8.5-10.1); Carbon Dioxide 29.1 mMol/L (20.0-31.0); Chloride 97 mMol/L (98-107); Creatinine (Component) 2.6 mg/dL (0.6-1.3); Estimated Creatinine Clearance 28.4 mL/min (>60); Globulin 3.1 gm/dL (2.3-3.5); Glucose 93 mg/dL (74-106); Magnesium 2.1 mg/dL (1.6-2.6); Osmolality,Calculated 278 (275-295); Phosphorous 3.0 mg/dL (2.4-5.1); Potassium 3.8 mMol/L (3.4-5.1); Sodium 139 mMol/L (136-145); Total Protein 7.6 gm/dL (5.7-8.2); eGFR 20 See Note
--- NOTE | 2025-08-12 09:00 | XR_ITS ---
EXAMINATION: AP chest single view TECHNIQUE: AP portable semiupright chest single view Date and time: August 12, 2025, 0859 hours, comparison August 11, 2025 INDICATIONS: Wheezing FINDINGS: Moderate enlargement cardiac contour Prominent vascular congestion with 30 septal edema Right dialysis catheter tip right atrium The film is rotated severely RPO IMPRESSION: Mild heart failure
--- NOTE | 2025-08-12 09:24 | PC.SS ---
Follow up note: Cultures require to be negative for 48 hours. Pt is on IV antibiotic. Pt will return to [facility] upon dc.
[2025-08-12] MEDS: AMIODARONE HCL 200 MG TABLET PO ×2 (10:04→20:11)
[2025-08-12] MEDS: VIT B12/Vit C/FA (Nephrovite) TABLET 1 TAB PO (10:08)
[2025-08-12] MEDS: DOCUSATE SOD 100 MG CAPSULE PO (10:09)
--- NOTE | 2025-08-12 14:09 | PC.NURSE ---
Dr. Barcensa in to see pt, explained plan of care and need for JONES. Patient refused.
--- NOTE | 2025-08-12 14:16 | PC.NURSE ---
notified md miller of patient refusing JONES procedure. Md miller arrived to patient bedside to explain risk and benefits of procedure. patient expressed verbal understanding. patient continuos to refuse procedure. per Anusha Yang patient is alert and oriented.
[2025-08-12 15:11] LABS: Band Neutrophils (Manual) 10 % (0-6); Basophils (Manual) 2 % (0-2); Eosinophils (Manual) 2 % (0-4); Lymphocytes (Manual) 12 % (20-44); Monocytes (Manual) 3 % (2-9); Myelocytes (Manual) 2 % (0-0); Neutrophils (Manual) 69 % (50-70)
--- NOTE | 2025-08-12 15:17 | ESPR_ITS ---
Documentation for date of: 08/12/25 Subjective Subjective Interval history: Ms. Elizondo is a 64-year-old female with past medical history of CVA, atrial fibrillation on Eliquis, HFrEF EF 15 to 20%, dilated cardiomyopathy, ESRD on hemodialysis Friday//Friday, hypothyroidism, iron deficiency anemia, nephrolithiasis and mood disorder who presented to [facility] emergency department on 08/06/2025, patient found to be lethargic and hypotensive with fever and was admitted to intensive care unit for distributive shock management. Further hospitalization course patient found to have infected dialysis catheter which was removed by interventional radiology, patient had temporary dialysis catheter placed. Post catheter exchange patient continues to be bacteremic and cardiology service consulted for JONES to rule out endocarditis. Patient seen at bedside, alert and oriented x 4, has no current complaints. Patient receiving hemodialysis, denies any dysphagia history of GI bleed and swallowing problems. Case was discussed with primary team, primary team to reach out to infectious disease to confirm if JONES is indicated. Will plan accordingly based on infectious disease recommendations 08/12/25 Patient seen and examined at bedside. No new cardiac complains. Vitals look stable. WBC increased to 19.6. Patient on IV antibiotics as per ID. Primary team requested JONES. Patient was kept NPO but she is refusing JONES today. Patient explained that JONES was recommended to rule out endocarditis as she has MRSA bacteremia. Patient informed that she will have to do 4-6 weeks of antibiotics if she does not have the JONES. Patient wants only antibiotics. Primary team will speak to the patient again and if she is agreeable we will plan JONES on friday. Otherwise antibiotics duration as per ID. Exam Vital Signs Temp Pulse Resp BP Pulse Ox O2 Del Method O2 Flow Rate 97.4 F 96 20 101/76 100 Nasal Cannula 6 08/12/25 08:00 08/12/25 12:08/12/25 08:00 08/12/25 12:08/12/25 08:00 08/12/25 08:00 08/12/25 08:00 Narrative Exam GENERAL: A&Ox3, no acute distress HEENT: mucous membranes moist, bilateral sclera anicteric CARDIOVASCULAR: regular rate and rhythm, S1/S2 present, no murmurs appreciated PULMONARY: clear to auscultation bilaterally, no rales/rhonchi/wheezes ABDOMINAL: soft, non-tender, non-distended, no rebound/guarding, bowel sounds present EXTREMITIES: 1+ BLE pitting edema SKIN: warm and dry, intact, no rashes NEURO: CN II-XII grossly intact, alert, following commands, L sided motor deficits, hand and feet flexed sensation intact, no neglect Objective Labs 08/12/25 04:17 08/12/25 04:17 Labs: Laboratory Results - last 24 hr 08/12/25 04:17 WBC 19.6 H RBC 3.34 L Hgb 10.3 L Hct 33.7 L MCV 101 H MCH 30.8 MCHC 30.6 L RDW Std Deviation 56.7 H Plt Count 315 D Neut % (Auto) 65 Lymph % (Auto) 16 [place] % (Auto) 12 Eos % (Auto) 2 Baso % (Auto) 1 Neut # (Auto) 12.8 H Lymph # (Auto) 3.1 [place] # (Auto) 2.3 H Eos # (Auto) 0.3 Baso # (Auto) 0.1 Immature Gran # (Auto) 1.04 H Absolute Nucleated RBC 0.04 H Immature Gran % 5 H Neutrophils % (Manual) 69 Monocytes % (Manual) 3 Eosinophils % (Manual) 2 Basophils % (Manual) 2 Myelocytes % 2 H Nucleated RBC % 0 Band Neutrophils 10 H Lymphocytes (Manual) 12 L Sodium 139 Potassium 3.8 Chloride 97 L Carbon Dioxide 29.1 Anion Gap 13 BUN 14 Creatinine 2.6 H D Estim Creat Clear Calc 28.4 L eGFR 20 L BUN/Creatinine Ratio 5 L Glucose 93 D Calculated Osmolality 278 Calcium 9.4 Corrected Calcium 9.4 Phosphorus 3.0 Magnesium 2.1 Total Bilirubin 0.5 AST 24 ALT 19 Alkaline Phosphatase 83 Total Protein 7.6 Albumin 4.5 D Globulin 3.1 Albumin/Globulin Ratio 1.5 ABG Interpretation ABG results: 08/06/25 08/07/25 11:42 04:24 ABG pH 7.41 7.42 ABG pCO2 41 38 ABG pO2 96 71 L D ABG HCO3 26 25 ABG O2 Saturation 98 95 ABG Base Excess 1 0 Assessment & Plan A&P Narrative Ms. Elizondo is a 64-year-old female with past medical history of CVA, atrial fibrillation on Eliquis, HFrEF EF 15 to 20%, dilated cardiomyopathy, ESRD on hemodialysis Friday//Friday, hypothyroidism, iron deficiency anemia, nephrolithiasis and mood disorder who presented to [facility] emergency department on 08/06/2025, patient found to be lethargic and hypotensive with fever and was admitted to intensive care unit for distributive shock management. Further hospitalization course patient found to have infected dialysis catheter which was removed by interventional radiology, patient had temporary dialysis catheter placed. Post catheter exchange patient continues to be bacteremic and cardiology service consulted for JONES to rule out endocarditis. #Bacteremia #Rule out endocarditis Patient continues to have bacteremia post removal of dialysis catheter which was thought to be infected. Temporary dialysis catheter placed, latest blood cultures still positive for GPC. Infectious diseases following, per ID patient's likely source thought to be dialysis catheter. However primary team consulted for JONES to rule out endocarditis. Please clarify with infectious disease regarding the need for JONES Transthoracic echocardiogram reviewed, no major changes in valvular gradients compared to previous echocardiograms, low suspicion of bacterial endocarditis. Antibiotics per ID recommendations, management per primary team 08/12/25 WBC increased to 19.6. Patient on IV antibiotics as per ID. Primary team requested JONES. Patient was kept NPO but she is refusing JONES today. Patient explained that JONES was recommended to rule out endocarditis as she has MRSA bacteremia. Patient informed that she will have to do 4-6 weeks of antibiotics if she does not have the JONES. Patient wants only antibiotics. Primary team will speak to the patient again and if she is agreeable we will plan JONES on friday. Otherwise antibiotics duration as per ID. #Heart failure with severely reduced ejection fraction, EF 15 to 20% #Dilated cardiomyopathy Patient has history of severely reduced ejection fraction heart failure. Has been seen in the past, well-known to practice. Recommended GDMT in the past however not noted on patient's med reconciliation. Patient has significant hypotension on midodrine, unable to tolerate GDMT Transthoracic echo 08/07/2025 shows 1. Left ventricle size is moderately enlarged and severe global hypokenesis and severe systolic dysfunction.. Estimated ejection fraction is 15-20%. 2. Right ventricle chamber size is normal and systolic function is mildly reduced. Estimated RVSP is 35-40 mmHg. Mild to moderate pulmonary hypertension. 3. Moderate MR, mild to moderate TR and trace AI. 4. The left atrium is severely enlarged. The right atrium is mildly enlarged. 5. Not well visualized IVC with estimated RA pressure 8 mmHg. Recommendations: - Continue hemodialysis to maintain euvolemia status - Introduce GDMT as tolerated, continue midodrine #Atrial fibrillation, by history Patient has history of atrial fibrillation on Eliquis CHADSVASC score 4, 4.8% stroke risk per year HASBLED 3 EKG 08/05/2025 shows A-fib with RVR ? Continue amiodarone 200 mg p.o. twice daily ? We recommend heparin gtt. if no contraindications and procedures are planned and Eliquis is contraindicated. ? Keep potassium greater than 4 and magnesium greater than 2 at all times #NSTEMI type II secondary to demand ischemia Patient denies any chest pain troponin initially elevated in setting of distributive shock #ESRD on hemodialysis #Electrolyte abnormalities #Hyperphosphatemia #Pressure ulcers #Hypothyroidism #History of CVA, residual left-sided hemiplegia ?Management per primary team Management of rest of the medical conditions as per primary team and other consultants. Thank you for the consult and allowing me to participate in the care of the patient. Cardiology will continue to follow. Bishnu Barcenas M.D. Interventional Cardiology Time Spent With Patient Time: Total time spent is greater than 50% in coordination of care (as documented) at patient's floor/unit and/or counseling patient:
[2025-08-12 15:28] LABS: Triglycerides 133 mg/dL (30-150); Vancomycin,Random 24.5 mcg/mL
--- NOTE | 2025-08-12 15:48 | PD.HHPROG ---
Documentation for date of: 08/12/25 Subjective - Hospitalist Subjective Interval history: Patient appears to be upset because she is n.p.o. She is not willing to do the JONES. She is just bored and sick of staying in the hospital for a very long time Patient reported no subjective fevers or chills. No nausea or vomiting. No other symptoms Review of Systems Review of Systems Narrative Review of Systems: 12 point of system reviewed. All negative except as mentioned in the HPI Exam Vital Signs Temp Pulse Resp BP Pulse Ox O2 Del Method O2 Flow Rate 97.4 F 96 20 101/76 100 Nasal Cannula 6 08/12/25 08:00 08/12/25 12:31 08/12/25 08:00 08/12/25 12:31 08/12/25 08:00 08/12/25 08:00 08/12/25 08:00 Narrative GENERAL: A&Ox3, no acute distress HEENT: mucous membranes moist, bilateral sclera anicteric CARDIOVASCULAR: regular rate and rhythm, S1/S2 present, no murmurs appreciated PULMONARY: clear to auscultation bilaterally, no rales/rhonchi/wheezes ABDOMINAL: soft, non-tender, non-distended, no rebound/guarding, bowel sounds present EXTREMITIES: 1+ BLE pitting edema SKIN: warm and dry, intact, no rashes NEURO: CN II-XII grossly intact, alert, following commands, L sided motor deficits, hand and feet flexed sensation intact, no neglect Objective - Hospitalist Labs Diagram: 08/12/25 04:17 08/12/25 04:17 Labs: Laboratory Results - last 24 hr 08/12/25 04:17 WBC 19.6 H RBC 3.34 L Hgb 10.3 L Hct 33.7 L MCV 101 H MCH 30.8 MCHC 30.6 L RDW Std Deviation 56.7 H Plt Count 315 D Neut % (Auto) 65 Lymph % (Auto) 16 [place] % (Auto) 12 Eos % (Auto) 2 Baso % (Auto) 1 Neut # (Auto) 12.8 H Lymph # (Auto) 3.1 [place] # (Auto) 2.3 H Eos # (Auto) 0.3 Baso # (Auto) 0.1 Immature Gran # (Auto) 1.04 H Absolute Nucleated RBC 0.04 H Immature Gran % 5 H Neutrophils % (Manual) 69 Monocytes % (Manual) 3 Eosinophils % (Manual) 2 Basophils % (Manual) 2 Myelocytes % 2 H Nucleated RBC % 0 Band Neutrophils 10 H Lymphocytes (Manual) 12 L Sodium 139 Potassium 3.8 Chloride 97 L Carbon Dioxide 29.1 Anion Gap 13 BUN 14 Creatinine 2.6 H D Estim Creat Clear Calc 28.4 L eGFR 20 L BUN/Creatinine Ratio 5 L Glucose 93 D Calculated Osmolality 278 Calcium 9.4 Corrected Calcium 9.4 Phosphorus 3.0 Magnesium 2.1 Total Bilirubin 0.5 AST 24 ALT 19 Alkaline Phosphatase 83 Total Protein 7.6 Albumin 4.5 D Globulin 3.1 Albumin/Globulin Ratio 1.5 Triglycerides 133 Random Vancomycin 24.5 ABG Interpretation ABG results: 08/06/25 08/07/25 11:42 04:24 ABG pH 7.41 7.42 ABG pCO2 41 38 ABG pO2 96 71 L D ABG HCO3 26 25 ABG O2 Saturation 98 95 ABG Base Excess 1 0 Assessment & Plan Patient Synopsis 64-year-old female with PMH of 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 Landry, and history of staghorn calculi, was transferred to ED from a nursing facility with lethargy, hypotensieon, and fever. Patient admitted to ICU for sepsis workup and downgraded to floors on 08/07/25. #Septic shock (resolving) secondary to #Sepsis (resolving) caused by #Dialysis catheter infection #NSTEMI type II 2/2 blood cultures 08/06/25 positive for GPCs 08/06/25 1/2 BCx + MRSA 08/06/25 UCx pending 08/06/25- Troponin peaked 1.423, then fell to 1.175 08/07/25 1/2 BCx +MRSA 08/08/25 2/2 BCx +GPC in 1/2, MRSA in 1/2; catheter tip culture + MRSA 08/09/25 2/2 BCx +GPC; one is known to be same MRSA as on 08/08 Plan: IV vancomycin Remove old dialysis catheter 08/08/25; temporary catheter placed 08/10/25; Plan to place permanent catheter when 48 hours of negative cultures achieved. Follow up blood cx ID consulted, thank you for recs- vancomycin alone, B12 tablet daily, catheter needs 48h negative cultures Will get JONES to check for cardiac vegetations Obtained repeat BCx 08/11: Continues to show gram-positive cocci Discussed with cardiology on 08/12: Since we still have not heard back from ID, will pursue JONES. However, patient declined the procedure just before she went downstairs for it #End-stage renal disease on dialysis (T/T/F) #Electrolyte abnormalities #Hyperphosphatemia Had dialysis today Plan: Hemodialysis (T/T/F) Avoid nephrotoxic agents, renally dose medicines Exchange catheter as above Give midodrine after dialysis if BP low #A-fib [id number]: 5 Patient has history of A-fib. Plan: ? Monitor EKG - Amiodarone 200 BID - K > 4, Mg > 2 #HFrEF (15-20%), stable Longstanding hx. And previously patient has refused cardiac cath, continues to refuse. 08-07-25 Echo shows LV size moderately enlarged and severe global hypokinesis and severe systolic dysfunction estimated EF 15 to 20%. RV chamber size normal systolic function mildly reduced, RVSP 35 to 40 mmHg, mild to moderate pulmonary hypertension, moderate MR, mild to moderate TR and trace AI, LA severely enlarged, RA mildly enlarged Plan: ? Caution with fluids - Keep K>4 and Mg>2 at all times #Pressure ulcers Sacral and decubitous ulcer and lateral leg ulcers. Do not appear cellulitic, more granulotamous. Ankle has a purulent base with oozing without cellultic changes. Plan: Continue to monitor, wound care referral placed #Hypothyroidism Patient has history of hypothyroidism. Plan: Restart home levothyroxine 50mcg #Hx of CVA, residual L-sided hemiplegia Stable Disposition: Med-Surg DVT prophylaxis: heparin 5000u q8h GI prophylaxis: none Diet: Renal, 1.8L fluid restriction Lines: PIV CODE STATUS: Full code Time Spent with Patient Time: Total time spent is greater than 50% in coordination of care (as documented) at patient's floor/unit and/or counseling patient: Time with patient: 25 - 35 minutes Reason for Continued Stay Reason for continued stay: other Quality Measures Quality Measures none
[2025-08-13] VITALS (26 sets, daily range): BP systolic 95–148; BP diastolic 44–110; PULSE 42–117; RESP 15–20; TEMP 36.1–36.8; O2SAT 92–100
[2025-08-13] MEDS: MIDODRINE 5 MG TABLET 10 MG PO ×2 (00:10→05:16)
[2025-08-13] MEDS: HYDROmorphone INJ 2 MG/ML VIAL 0.5 MG IVP ×2 (03:45→11:29)
[2025-08-13] MEDS: LEVOTHYROXINE SODIUM 25 MCG TABLET 50 MCG PO (05:16)
[2025-08-13 05:38] LABS: Basophils # (Auto) 0.1 Thou/mm3 (0.0-0.2); Basophils % (Auto) 0 % (0-2.5); Eosinophils # (Auto) 0.3 Thou/mm3 (0.0-0.5); Eosinophils % (Auto) 1 % (0-10); Hematocrit 32.5 % (36.0-46.0); Hemoglobin 9.7 g/dL (12.0-16.0); Immature Granulocytes Auto 0.87 Thou/mm3 (0.00-0.00); Lymphocytes # (Auto) 2.7 Thou/mm3 (1.0-4.8); Lymphocytes % (Auto) 13 % (10-50); Mean Corpuscular HGB Conc 29.8 g/dl (31.0-37.0); Mean Corpuscular Hemoglobin 30.2 pg (25.0-35.0); Mean Corpuscular Volume 101 fL (80-100); Monocytes # (Auto) 1.8 Thou/mm3 (0.0-0.8); Monocytes % (Auto) 9 % (0-12); Neutrophils # (Auto) 14.7 Thou/mm3 (1.8-7.7); Neutrophils % (Auto) 72 % (37-80); Nucleated Red Blood Cell # 0.00 Thou/mm3 (0.00-0.00); Nucleated Red Blood Cell % 0 /100 WBC (0); Platelet Count 314 Thou/mm3 (140-440); RDW Standard Deviation 56.0 fL (36.4-46.3); Red Blood Count 3.21 Miln/mm3 (4.00-5.20); White Blood Count 20.4 Thou/mm3 (3.6-11.0)
[2025-08-13 05:54] LABS: Alanine Aminotransferase 23 U/L (10-49); Albumin, Serum 4.0 gm/dL (3.4-4.8); Albumin/Globulin Ratio 1.3 (1.2-2.2); Alkaline Phosphatase 83 U/L (46-116); Anion Gap 15 (7-16); Aspartate Amino Transferase 32 U/L (0-34); BUN/Creatinine Ratio 7 Ratio (12-20); Bilirubin,Total 0.4 mg/dL (0.3-1.2); Blood Urea Nitrogen 26 mg/dL (9-23); Calcium 8.6 mg/dL (8.3-10.6); Calcium (Corrected) 8.6 mg/dL (8.5-10.1); Carbon Dioxide 25.1 mMol/L (20.0-31.0); Chloride 99 mMol/L (98-107); Creatinine (Component) 3.8 mg/dL (0.6-1.3); Estimated Creatinine Clearance 19.4 mL/min (>60); Globulin 3.2 gm/dL (2.3-3.5); Glucose 179 mg/dL (74-106); Magnesium 2.0 mg/dL (1.6-2.6); Osmolality,Calculated 286 (275-295); Phosphorous 3.8 mg/dL (2.4-5.1); Potassium 4.0 mMol/L (3.4-5.1); Sodium 139 mMol/L (136-145); Total Protein 7.2 gm/dL (5.7-8.2); Triglycerides 119 mg/dL (30-150); Vancomycin,Random 20.5 mcg/mL; eGFR 13 See Note
--- NOTE | 2025-08-13 08:00 | ESPR_ITS ---
<Statement entered by Jonatan Kimble MD - 08/13/25 18:05> I saw and examined patient personally and supervised PGY 1 resident, Dr. Evans with formulating a management plan. I agree with the documentation with the exceptions as listed below. Blood cultures from 08/11 grew GPC preliminary, repeat blood cultures ordered today. Patient underwent hemodialysis today after which HD temporary catheter was removed as per nephrology Dr Landry's recommendation. Patient refused JONES to rule out infective endocarditis. Patient is paraplegic due to history of CVA and unable to assess for new onset incontinence or lower limb weakness. MRI lumbar spine with contrast was ordered to rule out epidural abscess as a possible source of her persistent GPC bacteremia. Plan of care discussed with Attending Dr. Rahat Kimble MD PGY 2 Disclaimer: This note was dictated by speech recognition. Minor errors in staff research scientist may be present due to voice recognition software. Documentation for date of: 08/13/25 Subjective Subjective Interval history: Patient seen and examined at bedside; no acute events overnight. Will remove dialysis catheter today per nephro recommendations, and will also get MRI spine to check for epidural abscess since even on vancomycin, patient WBC count is uptrending today (20.4 vs 19.6) and cultures continue to grow MRSA. Exam Vital Signs Temp Pulse Resp BP Pulse Ox O2 Del Method O2 Flow Rate 98 F 110 H 20 95/77 97 Nasal Cannula 6 08/13/25 04:00 08/13/25 05:16 08/13/25 04:00 08/13/25 05:16 08/13/25 04:00 08/13/25 04:00 08/13/25 04:00 Narrative Exam GENERAL: A&Ox3, no acute distress HEENT: mucous membranes moist, bilateral sclera anicteric CARDIOVASCULAR: regular rate and rhythm, S1/S2 present, no murmurs appreciated PULMONARY: clear to auscultation bilaterally, no rales/rhonchi/wheezes ABDOMINAL: soft, non-tender, non-distended, no rebound/guarding, bowel sounds present EXTREMITIES: 1+ BLE pitting edema SKIN: warm and dry, intact, no rashes NEURO: CN II-XII grossly intact, alert, following commands, L sided motor deficits, hand and feet flexed sensation intact, no neglect Objective Labs 08/13/25 05:01 08/13/25 05:01 Labs: Laboratory Results - last 24 hr 08/12/25 08/13/25 04:17 05:01 WBC 20.4 H RBC 3.21 L Hgb 9.7 L Hct 32.5 L MCV 101 H MCH 30.2 MCHC 29.8 L RDW Std Deviation 56.0 H Plt Count 314 Neut % (Auto) 72 Lymph % (Auto) 13 [place] % (Auto) 9 Eos % (Auto) 1 Baso % (Auto) 0 Neut # (Auto) 14.7 H Lymph # (Auto) 2.7 [place] # (Auto) 1.8 H Eos # (Auto) 0.3 Baso # (Auto) 0.1 Immature Gran # (Auto) 0.87 H Absolute Nucleated RBC 0.00 Immature Gran % 4 H Neutrophils % (Manual) 69 Monocytes % (Manual) 3 Eosinophils % (Manual) 2 Basophils % (Manual) 2 Myelocytes % 2 H Nucleated RBC % 0 Band Neutrophils 10 H Lymphocytes (Manual) 12 L Sodium 139 139 Potassium 3.8 4.0 Chloride 97 L 99 Carbon Dioxide 29.1 25.1 Anion Gap 13 15 BUN 14 26 H Creatinine 2.6 H D 3.8 H D Estim Creat Clear Calc 28.4 L 19.4 L eGFR 20 L 13 L* BUN/Creatinine Ratio 5 L 7 L Glucose 93 D 179 H D Calculated Osmolality 278 286 Calcium 9.4 8.6 Corrected Calcium 9.4 8.6 Phosphorus 3.0 3.8 Magnesium 2.1 2.0 Total Bilirubin 0.5 0.4 AST 24 32 ALT 19 23 Alkaline Phosphatase 83 83 Total Protein 7.6 7.2 Albumin 4.5 D 4.0 D Globulin 3.1 3.2 Albumin/Globulin Ratio 1.5 1.3 Triglycerides 133 119 Random Vancomycin 24.5 20.5 ABG Interpretation ABG results: 08/06/25 08/07/25 11:42 04:24 ABG pH 7.41 7.42 ABG pCO2 41 38 ABG pO2 96 71 L D ABG HCO3 26 25 ABG O2 Saturation 98 95 ABG Base Excess 1 0 Quality Measures Quality Measures none Assessment & Plan Assessment Current Active Medications: Generic Name Dose Route Start Last Admin Trade Name Freq PRN Reason Stop Dose Admin Acetaminophen 650 mg 08/06/25 15:58 Acetaminophen 325 Mg Tablet PO 09/05/25 15:57 Q6H PRN Fever >100.4 or pain 1-3 Amiodarone HCl 200 mg 08/07/25 09:35 08/12/25 20:11 Amiodarone Hcl 200 Mg Tablet PO 09/06/25 09:34 200 mg BID RIANNA Administration Dextrose 25 ml 08/06/25 16:07 08/08/25 11:38 Dextrose 50%-Water Inj 50 Ml Syringe IV 09/05/25 16:06 25 ml Q15MIN PRN Administration BG 50-70 responsive npo pt Dextrose 50 ml 08/06/25 16:07 Dextrose 50%-Water Inj 50 Ml Syringe IV 09/05/25 16:06 Q15MIN PRN BG <50 OR BG <70 & pt unresponsive Docusate Sodium 100 mg 08/07/25 09:00 08/12/25 10:09 Docusate Sod 100 Mg Capsule PO 09/06/25 08:59 100 mg QDAY RIANNA Administration Protocol Glucagon 1 mg 08/06/25 16:07 Glucagon Inj 1 Mg Vial IM Q15MIN PRN BG <70, and no IV access Heparin Sodium (Porcine) 5,000 unit 08/06/25 16:15 08/09/25 21:37 Heparin Sod Inj 5000 Unit/Ml Vial SC 08/20/25 16:14 5,000 unit On Hold: 08/10/25 00:00 Q8HR RIANNA Administration Heparin Sodium (Porcine) 2,200 unit 08/11/25 14:27 08/11/25 14:39 Heparin Sod Inj 1000 Unit/Ml Vial 10 Ml INDWELLCAT 08/25/25 14:26 2,200 unit PRN PRN Administration DIALYSIS Albumin Human 25 gm in 100 mls @ 0 mls/hr 08/11/25 11:52 08/11/25 11:52 Albuminex 25% Ivpb IV 300 mls/hr Q30MIN PRN Administration To maintain SBP>90 Per Protocol Levothyroxine Sodium 50 mcg 08/08/25 06:00 08/13/25 05:16 Levothyroxine Sodium 25 Mcg Tablet PO 09/07/25 05:59 50 mcg ACBR RIANNA Administration Midodrine 10 mg 08/07/25 09:40 08/13/25 05:16 Midodrine 5 Mg Tablet PO 09/06/25 09:39 10 mg Q6HR RIANNA Administration Ondansetron HCl 4 mg 08/06/25 15:58 Ondansetron Inj 2 Mg/Ml Inj 2 Ml IVP 09/05/25 15:57 Q6H PRN NAUSEA OR VOMITING Protocol Pharmacy Consult 1 each 08/11/25 09:00 Vancomycin Pharmacy To Dose 1 Each Each IV 09/10/25 08:59 QDAY PRN CONSULT Pharmacy Consult 1 each 08/11/25 08:54 Pharmacy Renal Dose Adjustment 1 Ea XX 09/10/25 08:53 PRN PRN CONSULT Vitamin B Complex/Vit C/Folic Acid 1 tab 08/08/25 16:30 08/12/25 10:08 Vit B12/Vit C/Fa (Nephrovite) Tablet PO 09/07/25 16:29 1 tab QDAY RIANNA Administration Plan 64-year-old female with PMH of 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 Landry, and history of staghorn calculi, was transferred to ED from a nursing facility with lethargy, hypotensieon, and fever. Patient admitted to ICU for sepsis workup and downgraded to floors on 08/07/25. #Septic shock (resolving) secondary to #Sepsis (resolving) caused by #Dialysis catheter infection #NSTEMI type II 2/2 blood cultures 08/06/25 positive for GPCs 08/06/25 1/2 BCx + MRSA 08/06/25 UCx pending 08/06/25- Troponin peaked 1.423, then fell to 1.175 08/07/25 1/2 BCx +MRSA 08/08/25 2/2 BCx MRSA in 2/2; catheter tip culture + MRSA 08/09/25 2/2 BCx +same MRSA as on 08/08 08/11 2/2 Bcx +GPC WBC 20.4 today Plan: IV vancomycin Remove old dialysis catheter 08/08/25; temporary catheter placed 08/10/25; Plan to place permanent catheter when 48 hours of negative cultures achieved. Will remove temporary catheter on 08/13/25 Follow up blood cx ID consulted, thank you for recs- vancomycin alone, B12 tablet daily, catheter needs 48h negative cultures Will get JONES to check for cardiac vegetations Obtained repeat BCx 08/13: Continues to show gram-positive cocci Discussed with cardiology on 08/12: Since we still have not heard back from ID, will pursue JONES. However, patient declined the procedure just before she went downstairs for it #End-stage renal disease on dialysis (T/T/F) #Electrolyte abnormalities #Hyperphosphatemia Had dialysis today Plan: Hemodialysis (T/T/F) Avoid nephrotoxic agents, renally dose medicines Exchange catheter as above Give midodrine after dialysis if BP low #A-fib [id number]: 5 Patient has history of A-fib. Plan: ? Monitor EKG - Amiodarone 200 BID - K > 4, Mg > 2 #HFrEF (15-20%), stable Longstanding hx. And previously patient has refused cardiac cath, continues to refuse. 08-07-25 Echo shows LV size moderately enlarged and severe global hypokinesis and severe systolic dysfunction estimated EF 15 to 20%. RV chamber size normal systolic function mildly reduced, RVSP 35 to 40 mmHg, mild to moderate pulmonary hypertension, moderate MR, mild to moderate TR and trace AI, LA severely enlarged, RA mildly enlarged Plan: ? Caution with fluids - Keep K>4 and Mg>2 at all times #Pressure ulcers Sacral and decubitous ulcer and lateral leg ulcers. Do not appear cellulitic, more granulotamous. Ankle has a purulent base with oozing without cellultic changes. Plan: Continue to monitor, wound care referral placed #Hypothyroidism Patient has history of hypothyroidism. Plan: Restart home levothyroxine 50mcg #Hx of CVA, residual L-sided hemiplegia Stable Disposition: Med-Surg DVT prophylaxis: heparin 5000u q8h GI prophylaxis: none Diet: Renal, 1.8L fluid restriction Lines: PIV CODE STATUS: Full code This case was discussed with my attending physician, Dr. Raygoza, and senior resident, Dr. Kimble. Rom Evans, PGY1 Attending Provider Attestation/Addendum The patient was seen and examined. She is being dialyzed. She has temporary hemodialysis catheter. The patient is being treated with IV vancomycin for line sepsis. White count is 20,000. BUN 14 creatinine 2.6. I discussed with and supervised the resident physician who took care of this patient. I agree with the assessment and plan as above.
--- NOTE | 2025-08-13 09:00 | XR_ITS ---
Exam: Chest 1 view, AP Date and time of exam: 08/13/2025, 9:38 a.m. Comparison: 08/12/2025 INDICATION: Shortness of breath. Findings: Cardiac silhouette remains enlarged with central pulmonary vascular prominence. No interval change. No focal masses. Right IJ central venous catheter appropriately positioned. Impression: Stable findings consistent with mild CHF. No significant interval change.
--- NOTE | 2025-08-13 10:48 | ESPR_ITS ---
Documentation for date of: 08/13/25 Subjective Subjective Interval history: Patient seen and examined at bedside, talking on phone with family undergoing dialysis treatment. Risks and benefits of JONES explained to the patient, patient continues to refuse JONES. Primary team to discuss findings with infectious disease specialist Dr. Morfin. Continues to remain hypertensive, on midodrine 10 mg p.o. every 6 hours and amiodarone 200 p.o. twice daily. Unable to tolerate GDMT. Exam Vital Signs Temp Pulse Resp BP Pulse Ox O2 Del Method O2 Flow Rate 97.9 F 63 18 146/92 H 92 L Nasal Cannula 6 08/13/25 09:24 08/13/25 10:44 08/13/25 09:24 08/13/25 10:44 08/13/25 09:24 08/13/25 08:00 08/13/25 09:24 Narrative Exam GENERAL: A&Ox3, no acute distress HEENT: mucous membranes moist, bilateral sclera anicteric CARDIOVASCULAR: Irregularly irregular, S1/S2 present, no murmurs appreciated PULMONARY: clear to auscultation bilaterally, no rales/rhonchi/wheezes ABDOMINAL: soft, non-tender, non-distended, no rebound/guarding, bowel sounds present EXTREMITIES: 1+ BLE pitting edema SKIN: warm and dry, intact, no rashes NEURO: CN II-XII grossly intact, alert, following commands, L sided motor deficits, hand and feet flexed sensation intact, no neglect Objective Labs 08/15/25 06:03 08/15/25 06:03 Labs: Laboratory Results - last 24 hr 08/12/25 08/13/25 04:17 05:01 WBC 20.4 H RBC 3.21 L Hgb 9.7 L Hct 32.5 L MCV 101 H MCH 30.2 MCHC 29.8 L RDW Std Deviation 56.0 H Plt Count 314 Neut % (Auto) 72 Lymph % (Auto) 13 Stevens % (Auto) 9 Eos % (Auto) 1 Baso % (Auto) 0 Neut # (Auto) 14.7 H Lymph # (Auto) 2.7 Stevens # (Auto) 1.8 H Eos # (Auto) 0.3 Baso # (Auto) 0.1 Immature Gran # (Auto) 0.87 H Absolute Nucleated RBC 0.00 Immature Gran % 4 H Neutrophils % (Manual) 69 Monocytes % (Manual) 3 Eosinophils % (Manual) 2 Basophils % (Manual) 2 Myelocytes % 2 H Nucleated RBC % 0 Band Neutrophils 10 H Lymphocytes (Manual) 12 L Sodium 139 139 Potassium 3.8 4.0 Chloride 97 L 99 Carbon Dioxide 29.1 25.1 Anion Gap 13 15 BUN 14 26 H Creatinine 2.6 H D 3.8 H D Estim Creat Clear Calc 28.4 L 19.4 L eGFR 20 L 13 L* BUN/Creatinine Ratio 5 L 7 L Glucose 93 D 179 H D Calculated Osmolality 278 286 Calcium 9.4 8.6 Corrected Calcium 9.4 8.6 Phosphorus 3.0 3.8 Magnesium 2.1 2.0 Total Bilirubin 0.5 0.4 AST 24 32 ALT 19 23 Alkaline Phosphatase 83 83 Total Protein 7.6 7.2 Albumin 4.5 D 4.0 D Globulin 3.1 3.2 Albumin/Globulin Ratio 1.5 1.3 Triglycerides 133 119 Random Vancomycin 24.5 20.5 ABG Interpretation ABG results: 08/06/25 08/07/25 11:42 04:24 ABG pH 7.41 7.42 ABG pCO2 41 38 ABG pO2 96 71 L D ABG HCO3 26 25 ABG O2 Saturation 98 95 ABG Base Excess 1 0 Quality Measures Quality Measures none Assessment & Plan Assessment Current Active Medications: Generic Name Dose Route Start Last Admin Trade Name Freq PRN Reason Stop Dose Admin Acetaminophen 650 mg 08/06/25 15:58 Acetaminophen 325 Mg Tablet PO 09/05/25 15:57 Q6H PRN Fever >100.4 or pain 1-3 Hydrocodone Bitart/Acetaminophen 1 tab 08/13/25 10:46 Hydrocodone/Apap 5/325 Tablet PO 08/13/25 10:47 X1 ONE Amiodarone HCl 200 mg 08/07/25 09:35 08/12/25 20:11 Amiodarone Hcl 200 Mg Tablet PO 09/06/25 09:34 200 mg BID RIANNA Administration Dextrose 25 ml 08/06/25 16:07 08/08/25 11:38 Dextrose 50%-Water Inj 50 Ml Syringe IV 09/05/25 16:06 25 ml Q15MIN PRN Administration BG 50-70 responsive npo pt Dextrose 50 ml 08/06/25 16:07 Dextrose 50%-Water Inj 50 Ml Syringe IV 09/05/25 16:06 Q15MIN PRN BG <50 OR BG <70 & pt unresponsive Docusate Sodium 100 mg 08/07/25 09:00 08/12/25 10:09 Docusate Sod 100 Mg Capsule PO 09/06/25 08:59 100 mg QDAY RIANNA Administration Protocol Glucagon 1 mg 08/06/25 16:07 Glucagon Inj 1 Mg Vial IM Q15MIN PRN BG <70, and no IV access Heparin Sodium (Porcine) 5,000 unit 08/06/25 16:15 08/09/25 21:37 Heparin Sod Inj 5000 Unit/Ml Vial SC 08/20/25 16:14 5,000 unit On Hold: 08/10/25 00:00 Q8HR RIANNA Administration Heparin Sodium (Porcine) 2,200 unit 08/11/25 14:27 08/11/25 14:39 Heparin Sod Inj 1000 Unit/Ml Vial 10 Ml INDWELLCAT 08/25/25 14:26 2,200 unit PRN PRN Administration DIALYSIS Albumin Human 25 gm in 100 mls @ 0 mls/hr 08/11/25 11:52 08/11/25 11:52 Albuminex 25% Ivpb IV 300 mls/hr Q30MIN PRN Administration To maintain SBP>90 Per Protocol Levothyroxine Sodium 50 mcg 08/08/25 06:00 08/13/25 05:16 Levothyroxine Sodium 25 Mcg Tablet PO 09/07/25 05:59 50 mcg ACBR RIANNA Administration Midodrine 10 mg 08/07/25 09:40 08/13/25 05:16 Midodrine 5 Mg Tablet PO 09/06/25 09:39 10 mg Q6HR RIANNA Administration Ondansetron HCl 4 mg 08/06/25 15:58 Ondansetron Inj 2 Mg/Ml Inj 2 Ml IVP 09/05/25 15:57 Q6H PRN NAUSEA OR VOMITING Protocol Pharmacy Consult 1 each 08/11/25 09:00 Vancomycin Pharmacy To Dose 1 Each Each IV 09/10/25 08:59 QDAY PRN CONSULT Pharmacy Consult 1 each 08/11/25 08:54 Pharmacy Renal Dose Adjustment 1 Ea XX 09/10/25 08:53 PRN PRN CONSULT Vitamin B Complex/Vit C/Folic Acid 1 tab 08/08/25 16:30 08/12/25 10:08 Vit B12/Vit C/Fa (Nephrovite) Tablet PO 09/07/25 16:29 1 tab QDAY RIANNA Administration Plan Assessment and Plan: Summary: Ms. Elizondo is a 64-year-old female with past medical history of CVA, atrial fibrillation on Eliquis, HFrEF EF 15 to 20%, dilated cardiomyopathy, ESRD on hemodialysis Friday//Friday, hypothyroidism, iron deficiency anemia, nephrolithiasis and mood disorder who presented to [facility] emergency department on 08/06/2025, patient found to be lethargic and hypotensive with fever and was admitted to intensive care unit for distributive shock management. Further hospitalization course patient found to have infected dialysis catheter which was removed by interventional radiology, patient had temporary dialysis catheter placed. Post catheter exchange patient continues to be bacteremic and cardiology service consulted for JONES to rule out endocarditis. #Bacteremia #Rule out endocarditis Patient continues to have bacteremia post removal of dialysis catheter which was thought to be infected. Temporary dialysis catheter placed, latest blood cultures still positive for GPC. Infectious diseases following, per ID patient's likely source thought to be dialysis catheter. However primary team consulted for JONES to rule out endocarditis. Please clarify with infectious disease regarding the need for JONES Transthoracic echocardiogram reviewed, no major changes in valvular gradients compared to previous echocardiograms, low suspicion of bacterial endocarditis. Antibiotics per ID recommendations, management per primary team Patient was kept NPO but she is refusing JONES 08/12. Patient continues to refuse JONES today Patient was explained that JONES was recommended to rule out endocarditis as she has MRSA bacteremia. Patient informed that she will have to do 4-6 weeks of antibiotics if she does not have the JONES. Patient wants only antibiotics. Primary team to discuss with the patient again and if she is agreeable we will plan JONES on friday. Otherwise antibiotics duration as per ID. #Heart failure with severely reduced ejection fraction, EF 15 to 20% #Dilated cardiomyopathy Patient has history of severely reduced ejection fraction heart failure. Has been seen in the past, well-known to practice. Recommended GDMT in the past however not noted on patient's med reconciliation. Patient has significant hypotension on midodrine, unable to tolerate GDMT Transthoracic echo 08/07/2025 shows 1. Left ventricle size is moderately enlarged and severe global hypokenesis and severe systolic dysfunction.. Estimated ejection fraction is 15-20%. 2. Right ventricle chamber size is normal and systolic function is mildly reduced. Estimated RVSP is 35-40 mmHg. Mild to moderate pulmonary hypertension. 3. Moderate MR, mild to moderate TR and trace AI. 4. The left atrium is severely enlarged. The right atrium is mildly enlarged. 5. Not well visualized IVC with estimated RA pressure 8 mmHg. Recommendations: - Continue hemodialysis to maintain euvolemia status - Introduce GDMT as tolerated, continue midodrine #Atrial fibrillation, by history Patient has history of atrial fibrillation on Eliquis CHADSVASC score 4, 4.8% stroke risk per year HASBLED 3 EKG 08/05/2025 shows A-fib with RVR ? Continue amiodarone 200 mg p.o. twice daily ? We recommend heparin gtt. if no contraindications and procedures are planned and Eliquis is contraindicated. ? Keep potassium greater than 4 and magnesium greater than 2 at all times #NSTEMI type II secondary to demand ischemia Patient denies any chest pain troponin initially elevated in setting of distributive shock #ESRD on hemodialysis #Electrolyte abnormalities #Hyperphosphatemia #Pressure ulcers #Hypothyroidism #History of CVA, residual left-sided hemiplegia ?Management per primary team Thank you for the consult and allowing to participate in the care of the patient. Cardiology will continue to follow. Case discussed with Attending Physician Dr. Bishnu Williamson MD Internal Medicine PGY-2 Disclaimer: This note was dictated by speech recognition. Minor errors in decorating equipment setter may be present due to voice recognition software. Attending Provider Attestation/Addendum I have personally seen and examined the patient separately on the above date of service and discussed the plan of care with the resident. I reviewed the resident Dr. Kimani Williamson consultation progress note and agree with the resident findings and plan in the note above and have also edited the documentation to reflect my findings and plan. Bishnu Barcenas M.D. Interventional Cardiology
[2025-08-13] MEDS: HYDROcodone/APAP 5/325 TABLET 1 TAB PO (10:55)
[2025-08-13] MEDS: HEPARIN SOD INJ 1000 UNIT/ML VIAL 10 ML 2200 UNIT INDWELLCAT (12:57)
[2025-08-13] MEDS: AMIODARONE HCL 200 MG TABLET PO ×2 (13:43→20:40)
[2025-08-13] MEDS: DOCUSATE SOD 100 MG CAPSULE PO (13:43)
[2025-08-13] MEDS: VIT B12/Vit C/FA (Nephrovite) TABLET 1 TAB PO (13:43)
[2025-08-13] MEDS: ACETAMINOPHEN 325 MG TABLET 650 MG PO (20:56)
[2025-08-13] MEDS: ONDANSETRON INJ 2 MG/ML INJ 2 ML 4 MG IVP (22:22)
[2025-08-14] VITALS (14 sets, daily range): BP systolic 91–112; BP diastolic 58–75; PULSE 79–100; RESP 16–25; TEMP 36–36.6; O2SAT 96–100; BMI 27.2; BMI 27.7
[2025-08-14] MEDS: LEVOTHYROXINE SODIUM 25 MCG TABLET 50 MCG PO (05:17)
[2025-08-14] MEDS: MIDODRINE 5 MG TABLET 10 MG PO ×4 (05:17→17:23)
--- NOTE | 2025-08-14 09:00 | XR_ITS ---
EXAMINATION: AP chest single view TECHNIQUE: AP portable semiupright chest single view Date and time: August 14, 2025, 0814 hours, comparison August 13, 2025 INDICATIONS: Chest pain wheezing today. FINDINGS: Mild enlargement cardiac contour. Mild vascular congestion. No current pneumonia or pulmonary edema IMPRESSION: No current pneumonia or pulmonary edema
[2025-08-14] MEDS: VIT B12/Vit C/FA (Nephrovite) TABLET 1 TAB PO (09:08)
[2025-08-14] MEDS: DOCUSATE SOD 100 MG CAPSULE PO (09:08)
[2025-08-14] MEDS: AMIODARONE HCL 200 MG TABLET PO ×2 (09:08→20:12)
--- NOTE | 2025-08-14 09:17 | PD.RESPRO ---
Documentation for date of: 08/14/25 Subjective Subjective Interval history: Patient seen and examined at bedside, patient reports that she is anxious, afraid of dying and wants to go back to intermediate facility. Patient refusing JONES, we recommend continuing antibiotics to complete treatment for endocarditis per infectious disease recommendations Continues to remain hypotensive, on midodrine 10 mg p.o. every 6 hours and amiodarone 200 p.o. twice daily. Unable to tolerate GDMT. Exam Vital Signs Temp Pulse Resp BP Pulse Ox O2 Del Method O2 Flow Rate 97.9 F 85 17 102/69 96 Nasal Cannula 2 08/14/25 08:00 08/14/25 09:08 08/14/25 08:00 08/14/25 09:08 08/14/25 08:00 08/14/25 08:00 08/14/25 08:00 Narrative Exam GENERAL: A&Ox3, no acute distress HEENT: mucous membranes moist, bilateral sclera anicteric CARDIOVASCULAR: Irregularly irregular, S1/S2 present, no murmurs appreciated PULMONARY: clear to auscultation bilaterally, no rales/rhonchi/wheezes ABDOMINAL: soft, non-tender, non-distended, no rebound/guarding, bowel sounds present EXTREMITIES: 1+ BLE pitting edema SKIN: warm and dry, intact, no rashes NEURO: CN II-XII grossly intact, alert, following commands, L sided motor deficits, hand and feet flexed sensation intact, no neglect Objective Labs 08/15/25 06:03 08/15/25 06:03 ABG Interpretation ABG results: 08/06/25 08/07/25 11:42 04:24 ABG pH 7.41 7.42 ABG pCO2 41 38 ABG pO2 96 71 L D ABG HCO3 26 25 ABG O2 Saturation 98 95 ABG Base Excess 1 0 Quality Measures Quality Measures none Assessment & Plan Assessment Current Active Medications: Generic Name Dose Route Start Last Admin Trade Name Freq PRN Reason Stop Dose Admin Acetaminophen 650 mg 08/06/25 15:58 08/13/25 20:56 Acetaminophen 325 Mg Tablet PO 09/05/25 15:57 650 mg Q6H PRN Administration Fever >100.4 or pain 1-3 Amiodarone HCl 200 mg 08/07/25 09:35 08/14/25 09:08 Amiodarone Hcl 200 Mg Tablet PO 09/06/25 09:34 200 mg BID RIANNA Administration Dextrose 25 ml 08/06/25 16:07 08/08/25 11:38 Dextrose 50%-Water Inj 50 Ml Syringe IV 09/05/25 16:06 25 ml Q15MIN PRN Administration BG 50-70 responsive npo pt Dextrose 50 ml 08/06/25 16:07 Dextrose 50%-Water Inj 50 Ml Syringe IV 09/05/25 16:06 Q15MIN PRN BG <50 OR BG <70 & pt unresponsive Docusate Sodium 100 mg 08/07/25 09:00 08/14/25 09:08 Docusate Sod 100 Mg Capsule PO 09/06/25 08:59 100 mg QDAY RIANNA Administration Protocol Glucagon 1 mg 08/06/25 16:07 Glucagon Inj 1 Mg Vial IM Q15MIN PRN BG <70, and no IV access Heparin Sodium (Porcine) 5,000 unit 08/06/25 16:15 08/09/25 21:37 Heparin Sod Inj 5000 Unit/Ml Vial SC 08/20/25 16:14 5,000 unit On Hold: 08/10/25 00:00 Q8HR RIANNA Administration Heparin Sodium (Porcine) 2,200 unit 08/11/25 14:27 08/13/25 12:57 Heparin Sod Inj 1000 Unit/Ml Vial 10 Ml INDWELLCAT 08/25/25 14:26 2,200 unit PRN PRN Administration DIALYSIS Albumin Human 25 gm in 100 mls @ 0 mls/hr 08/11/25 11:52 08/11/25 11:52 Albuminex 25% Ivpb IV 300 mls/hr Q30MIN PRN Administration To maintain SBP>90 Per Protocol Levothyroxine Sodium 50 mcg 08/08/25 06:00 08/14/25 05:17 Levothyroxine Sodium 25 Mcg Tablet PO 09/07/25 05:59 50 mcg ACBR RIANNA Administration Midodrine 10 mg 08/07/25 09:40 08/14/25 05:17 Midodrine 5 Mg Tablet PO 09/06/25 09:39 10 mg Q6HR RIANNA Administration Ondansetron HCl 4 mg 08/06/25 15:58 08/13/25 22:22 Ondansetron Inj 2 Mg/Ml Inj 2 Ml IVP 09/05/25 15:57 4 mg Q6H PRN Administration NAUSEA OR VOMITING Protocol Pharmacy Consult 1 each 08/11/25 09:00 Vancomycin Pharmacy To Dose 1 Each Each IV 09/10/25 08:59 QDAY PRN CONSULT Pharmacy Consult 1 each 08/11/25 08:54 Pharmacy Renal Dose Adjustment 1 Ea XX 09/10/25 08:53 PRN PRN CONSULT Vitamin B Complex/Vit C/Folic Acid 1 tab 08/08/25 16:30 08/14/25 09:08 Vit B12/Vit C/Fa (Nephrovite) Tablet PO 09/07/25 16:29 1 tab QDAY RIANNA Administration Plan Assessment and Plan: Summary: Ms. Elizondo is a 64-year-old female with past medical history of CVA, atrial fibrillation on Eliquis, HFrEF EF 15 to 20%, dilated cardiomyopathy, ESRD on hemodialysis Friday//Friday, hypothyroidism, iron deficiency anemia, nephrolithiasis and mood disorder who presented to [facility] emergency department on 08/06/2025, patient found to be lethargic and hypotensive with fever and was admitted to intensive care unit for distributive shock management. Further hospitalization course patient found to have infected dialysis catheter which was removed by interventional radiology, patient had temporary dialysis catheter placed. Post catheter exchange patient continues to be bacteremic and cardiology service consulted for JONES to rule out endocarditis. #Bacteremia #Rule out endocarditis Patient continues to have bacteremia post removal of dialysis catheter which was thought to be infected. Temporary dialysis catheter placed, latest blood cultures still positive for GPC. Infectious diseases following, per ID patient's likely source thought to be dialysis catheter. However primary team consulted for JONES to rule out endocarditis. Please clarify with infectious disease regarding the need for JONES Transthoracic echocardiogram reviewed, no major changes in valvular gradients compared to previous echocardiograms, low suspicion of bacterial endocarditis. Antibiotics per ID recommendations, management per primary team Patient was kept NPO but she is refusing JONES 08/12. Patient continues to refuse JONES today Patient was explained that JONES was recommended to rule out endocarditis as she has MRSA bacteremia. Patient informed that she will have to do 4-6 weeks of antibiotics if she does not have the JONES. Patient wants only antibiotics. Primary team to discuss with the patient again and if she is agreeable we will plan JONES on friday. Otherwise antibiotics duration as per ID. #Heart failure with severely reduced ejection fraction, EF 15 to 20% #Dilated cardiomyopathy Patient has history of severely reduced ejection fraction heart failure. Has been seen in the past, well-known to practice. Recommended GDMT in the past however not noted on patient's med reconciliation. Patient has significant hypotension on midodrine, unable to tolerate GDMT Transthoracic echo 08/07/2025 shows 1. Left ventricle size is moderately enlarged and severe global hypokenesis and severe systolic dysfunction.. Estimated ejection fraction is 15-20%. 2. Right ventricle chamber size is normal and systolic function is mildly reduced. Estimated RVSP is 35-40 mmHg. Mild to moderate pulmonary hypertension. 3. Moderate MR, mild to moderate TR and trace AI. 4. The left atrium is severely enlarged. The right atrium is mildly enlarged. 5. Not well visualized IVC with estimated RA pressure 8 mmHg. Recommendations: - Continue hemodialysis to maintain euvolemia status - Introduce GDMT as tolerated, continue midodrine #Atrial fibrillation, by history Patient has history of atrial fibrillation on Eliquis CHADSVASC score 4, 4.8% stroke risk per year HASBLED 3 EKG 08/05/2025 shows A-fib with RVR ? Continue amiodarone 200 mg p.o. twice daily ? We recommend heparin gtt. if no contraindications and procedures are planned and Eliquis is contraindicated. ? Keep potassium greater than 4 and magnesium greater than 2 at all times #NSTEMI type II secondary to demand ischemia Patient denies any chest pain troponin initially elevated in setting of distributive shock #ESRD on hemodialysis #Electrolyte abnormalities #Hyperphosphatemia #Pressure ulcers #Hypothyroidism #History of CVA, residual left-sided hemiplegia ?Management per primary team Thank you for the consult and allowing to participate in the care of the patient. Cardiology will continue to follow. Case discussed with Attending Physician Dr. Bishnu Williamson MD Internal Medicine PGY-2 Disclaimer: This note was dictated by speech recognition. Minor errors in public address servicer may be present due to voice recognition software. Attending Provider Attestation/Addendum I have personally seen and examined the patient separately on the above date of service and discussed the plan of care with the resident. I reviewed the resident Dr. Kimani Williamson consultation progress note and agree with the resident findings and plan in the note above and have also edited the documentation to reflect my findings and plan. Bishnu Barcenas M.D. Interventional Cardiology
--- NOTE | 2025-08-14 13:28 | PD.RESPRO ---
Documentation for date of: 08/14/25 Subjective Subjective Interval history: Patient seen and examined at bedside; wanted to leave, explained that it would be in her interest to stay. Expressed suicidal ideation; sitter ordered. Exam Vital Signs Temp Pulse Resp BP Pulse Ox O2 Del Method O2 Flow Rate 97.9 F 83 16 106/59 L 96 Nasal Cannula 2 08/14/25 08:00 08/14/25 12:13 08/14/25 09:52 08/14/25 12:13 08/14/25 09:52 08/14/25 08:00 08/14/25 09:52 Narrative Exam GENERAL: A&Ox3, agitated HEENT: mucous membranes moist, bilateral sclera anicteric CARDIOVASCULAR: regular rate and rhythm, S1/S2 present, no murmurs appreciated PULMONARY: clear to auscultation bilaterally, no rales/rhonchi/wheezes ABDOMINAL: soft, non-tender, non-distended, no rebound/guarding, bowel sounds present EXTREMITIES: 1+ BLE pitting edema SKIN: warm and dry, intact, no rashes NEURO: CN II-XII grossly intact, alert, following commands, L sided motor deficits, hand and feet flexed sensation intact, no neglect Objective Labs 08/15/25 06:03 08/15/25 06:03 ABG Interpretation ABG results: 08/06/25 08/07/25 11:42 04:24 ABG pH 7.41 7.42 ABG pCO2 41 38 ABG pO2 96 71 L D ABG HCO3 26 25 ABG O2 Saturation 98 95 ABG Base Excess 1 0 Quality Measures Quality Measures none Assessment & Plan Assessment Current Active Medications: Generic Name Dose Route Start Last Admin Trade Name Freq PRN Reason Stop Dose Admin Acetaminophen 650 mg 08/06/25 15:58 08/13/25 20:56 Acetaminophen 325 Mg Tablet PO 09/05/25 15:57 650 mg Q6H PRN Administration Fever >100.4 or pain 1-3 Amiodarone HCl 200 mg 08/07/25 09:35 08/14/25 09:08 Amiodarone Hcl 200 Mg Tablet PO 09/06/25 09:34 200 mg BID RIANNA Administration Dextrose 25 ml 08/06/25 16:07 08/08/25 11:38 Dextrose 50%-Water Inj 50 Ml Syringe IV 01/05/26 16:06 25 ml Q15MIN PRN Administration BG 50-70 responsive npo pt Dextrose 50 ml 08/06/25 16:07 Dextrose 50%-Water Inj 50 Ml Syringe IV 09/05/25 16:06 Q15MIN PRN BG <50 OR BG <70 & pt unresponsive Docusate Sodium 100 mg 08/07/25 09:00 08/14/25 09:08 Docusate Sod 100 Mg Capsule PO 09/06/25 08:59 100 mg QDAY RIANNA Administration Protocol Glucagon 1 mg 08/06/25 16:07 Glucagon Inj 1 Mg Vial IM Q15MIN PRN BG <70, and no IV access Heparin Sodium (Porcine) 5,000 unit 08/06/25 16:15 08/09/25 21:37 Heparin Sod Inj 5000 Unit/Ml Vial SC 08/20/25 16:14 5,000 unit On Hold: 08/10/25 00:00 Q8HR RIANNA Administration Heparin Sodium (Porcine) 2,200 unit 08/11/25 14:27 08/13/25 12:57 Heparin Sod Inj 1000 Unit/Ml Vial 10 Ml INDWELLCAT 08/25/25 14:26 2,200 unit PRN PRN Administration DIALYSIS Albumin Human 25 gm in 100 mls @ 0 mls/hr 08/11/25 11:52 08/11/25 11:52 Albuminex 25% Ivpb IV 300 mls/hr Q30MIN PRN Administration To maintain SBP>90 Per Protocol Levothyroxine Sodium 50 mcg 08/08/25 06:00 08/14/25 05:17 Levothyroxine Sodium 25 Mcg Tablet PO 09/07/25 05:59 50 mcg ACBR RIANNA Administration Midodrine 10 mg 08/07/25 09:40 08/14/25 12:13 Midodrine 5 Mg Tablet PO 09/06/25 09:39 10 mg Q6HR RIANNA Administration Ondansetron HCl 4 mg 08/06/25 15:58 08/13/25 22:22 Ondansetron Inj 2 Mg/Ml Inj 2 Ml IVP 09/05/25 15:57 4 mg Q6H PRN Administration NAUSEA OR VOMITING Protocol Pharmacy Consult 1 each 08/11/25 09:00 Vancomycin Pharmacy To Dose 1 Each Each IV 09/10/25 08:59 QDAY PRN CONSULT Pharmacy Consult 1 each 08/11/25 08:54 Pharmacy Renal Dose Adjustment 1 Ea XX 09/10/25 08:53 PRN PRN CONSULT Vitamin B Complex/Vit C/Folic Acid 1 tab 08/08/25 16:30 08/14/25 09:08 Vit B12/Vit C/Fa (Nephrovite) Tablet PO 09/07/25 16:29 1 tab QDAY RIANNA Administration Plan 64-year-old female with PMH of 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 Landry, and history of staghorn calculi, was transferred to ED from a nursing facility with lethargy, hypotensieon, and fever. Patient admitted to ICU for sepsis workup and downgraded to floors on 08/07/25. #Septic shock (resolving) secondary to #Sepsis caused by #Dialysis catheter infection #NSTEMI type II 2/2 blood cultures 08/06/25 positive for GPCs 08/06/25 1/2 BCx + MRSA 08/06/25 UCx pending 08/06/25- Troponin peaked 1.423, then fell to 1.175 08/07/25 1/2 BCx +MRSA 08/08/25 2/2 BCx MRSA in 2/2; catheter tip culture + MRSA 08/09/25 2/2 BCx +same MRSA as on 08/08 08/11 2/2 Bcx +GPC WBC 20.4 yesterday Plan: IV vancomycin Remove old dialysis catheter 08/08/25; temporary catheter placed 08/10/25; Plan to place permanent catheter when 48 hours of negative cultures achieved. Will remove temporary catheter on 08/13/25 Follow up blood cx ID consulted, thank you for recs- vancomycin alone, B12 tablet daily, catheter needs 48h negative cultures Will get JONES to check for cardiac vegetations Obtained repeat BCx 08/13: Continues to show gram-positive cocci Discussed with cardiology on 08/12: Since we still have not heard back from ID, will pursue JONES. However, patient declined the procedure just before she went downstairs for it #End-stage renal disease on dialysis (T/T/F) #Electrolyte abnormalities #Hyperphosphatemia Had dialysis today Plan: Hemodialysis (T/T/F) Avoid nephrotoxic agents, renally dose medicines Exchange catheter as above Give midodrine after dialysis if BP low #Agitation #Suicidal ideation Patient was very agitated today wanting to go home AMA; expressed suicidal ideation to myself and attending. Plan: Placed on 1 to 1 sitter #A-fib [id number]: 5 Patient has history of A-fib. Plan: ? Monitor EKG - Amiodarone 200 BID - K > 4, Mg > 2 #HFrEF (15-20%), stable Longstanding hx. And previously patient has refused cardiac cath, continues to refuse. 08-07-25 Echo shows LV size moderately enlarged and severe global hypokinesis and severe systolic dysfunction estimated EF 15 to 20%. RV chamber size normal systolic function mildly reduced, RVSP 35 to 40 mmHg, mild to moderate pulmonary hypertension, moderate MR, mild to moderate TR and trace AI, LA severely enlarged, RA mildly enlarged Plan: ? Caution with fluids - Keep K>4 and Mg>2 at all times #Pressure ulcers Sacral and decubitous ulcer and lateral leg ulcers. Do not appear cellulitic, more granulotamous. Ankle has a purulent base with oozing without cellultic changes. Plan: Continue to monitor, wound care referral placed #Hypothyroidism Patient has history of hypothyroidism. Plan: Restart home levothyroxine 50mcg #Hx of CVA, residual L-sided hemiplegia Stable Disposition: Med-Surg DVT prophylaxis: heparin 5000u q8h GI prophylaxis: none Diet: Renal, 1.8L fluid restriction Lines: PIV CODE STATUS: Full code This case was discussed with my attending physician, Dr. Raygoza, and senior resident, Dr. Kimble. Rom Evans, PGY1 Senior Resident Attestation: I discussed with and supervised the internal audit director physician involved in the care of this patient. I personally saw and examined the patient and discussed the assessment and plan with the entire medicine team, including my attending. I agree with the assessment and plan as documented above. Lucian Freeman MD PGY3 Internal Medicine Attending Provider Attestation/Addendum One-to-one sitter ordered for suicidal ideation. The patient wanted to sign out AGAINST MEDICAL ADVICE. The patient has line sepsis with MRSA pending completion of treatment. The patient has no dialysis catheter currently on line holiday. We explained to the patient her current condition and updated her status. She agreed to stay and continue IV antibiotic treatment. Will repeat cultures. ID consult requested. I discussed with and supervised the resident physician who took care of this patient. I agree with the assessment and plan as above.
--- NOTE | 2025-08-14 14:56 | PC.SS ---
SS was informed by Dr. Giang pt will need mental health eval upon medical clearance for Suicidal Ideation. Pt stated to Dr. Giang, If i had a gun i would use it to kill myself. Pt placed on 5150, sitter placed at bedside. Pt is currently not medically cleared for Eval due to Positive Blood Cults on IV ABX. SS updated ED CC SALES TRAINING REPRESENTATIVE rAlene.
--- NOTE | 2025-08-14 14:59 | PC.SS ---
Pt has expressed SI, therefore has been placed on suicide precautions and will require MHE upon medical clearance. SS on stand by for any further needs o concerns. ED CC LSCWArlene made aware.
--- NOTE | 2025-08-14 15:33 | PC.NURSE ---
PATIENT ALLOWED LABS TO BE DRAWN
[2025-08-14 16:19] LABS: Basophils # (Auto) 0.1 Thou/mm3 (0.0-0.2); Basophils % (Auto) 0 % (0-2.5); Eosinophils # (Auto) 0.1 Thou/mm3 (0.0-0.5); Eosinophils % (Auto) 0 % (0-10); Hematocrit 33.3 % (36.0-46.0); Hemoglobin 10.4 g/dL (12.0-16.0); Immature Granulocytes Auto 0.51 Thou/mm3 (0.00-0.00); Lymphocytes # (Auto) 2.7 Thou/mm3 (1.0-4.8); Lymphocytes % (Auto) 11 % (10-50); Mean Corpuscular HGB Conc 31.2 g/dl (31.0-37.0); Mean Corpuscular Hemoglobin 31.0 pg (25.0-35.0); Mean Corpuscular Volume 99 fL (80-100); Monocytes # (Auto) 1.7 Thou/mm3 (0.0-0.8); Monocytes % (Auto) 7 % (0-12); Neutrophils # (Auto) 20.2 Thou/mm3 (1.8-7.7); Neutrophils % (Auto) 80 % (37-80); Nucleated Red Blood Cell # 0.00 Thou/mm3 (0.00-0.00); Nucleated Red Blood Cell % 0 /100 WBC (0); Platelet Count 423 Thou/mm3 (140-440); RDW Standard Deviation 55.8 fL (36.4-46.3); Red Blood Count 3.36 Miln/mm3 (4.00-5.20); White Blood Count 25.2 Thou/mm3 (3.6-11.0)
[2025-08-14 17:06] LABS: Alanine Aminotransferase 21 U/L (10-49); Albumin, Serum 4.1 gm/dL (3.4-4.8); Albumin/Globulin Ratio 1.2 (1.2-2.2); Alkaline Phosphatase 79 U/L (46-116); Anion Gap 15 (7-16); Aspartate Amino Transferase 23 U/L (0-34); BUN/Creatinine Ratio 8 Ratio (12-20); Bilirubin,Total 0.4 mg/dL (0.3-1.2); Blood Urea Nitrogen 29 mg/dL (9-23); Calcium 8.7 mg/dL (8.3-10.6); Calcium (Corrected) 8.7 mg/dL (8.5-10.1); Carbon Dioxide 26.6 mMol/L (20.0-31.0); Chloride 95 mMol/L (98-107); Creatinine (Component) 3.8 mg/dL (0.6-1.3); Estimated Creatinine Clearance 19.2 mL/min (>60); Globulin 3.5 gm/dL (2.3-3.5); Glucose 93 mg/dL (74-106); Magnesium 2.1 mg/dL (1.6-2.6); Osmolality,Calculated 279 (275-295); Phosphorous 4.6 mg/dL (2.4-5.1); Potassium 4.4 mMol/L (3.4-5.1); Sodium 137 mMol/L (136-145); Total Protein 7.6 gm/dL (5.7-8.2); Triglycerides 143 mg/dL (30-150); Vancomycin,Random 17.5 mcg/mL; eGFR 13 See Note
[2025-08-14] MEDS: ACETAMINOPHEN 325 MG TABLET 650 MG PO (19:56)
[2025-08-15] VITALS (17 sets, daily range): BP systolic 81–111; BP diastolic 57–74; PULSE 59–106; RESP 14–21; TEMP 35.8–36.7; O2SAT 93–99
[2025-08-15] MEDS: MIDODRINE 5 MG TABLET 10 MG PO ×4 (00:12→17:40)
[2025-08-15] MEDS: LEVOTHYROXINE SODIUM 25 MCG TABLET 50 MCG PO (05:39)
[2025-08-15 06:37] LABS: Basophils # (Auto) 0.1 Thou/mm3 (0.0-0.2); Basophils % (Auto) 0 % (0-2.5); Eosinophils # (Auto) 0.1 Thou/mm3 (0.0-0.5); Eosinophils % (Auto) 1 % (0-10); Hematocrit 34.4 % (36.0-46.0); Hemoglobin 10.9 g/dL (12.0-16.0); Immature Granulocytes Auto 0.30 Thou/mm3 (0.00-0.00); Lymphocytes # (Auto) 2.6 Thou/mm3 (1.0-4.8); Lymphocytes % (Auto) 11 % (10-50); Mean Corpuscular HGB Conc 31.7 g/dl (31.0-37.0); Mean Corpuscular Hemoglobin 31.3 pg (25.0-35.0); Mean Corpuscular Volume 99 fL (80-100); Monocytes # (Auto) 1.6 Thou/mm3 (0.0-0.8); Monocytes % (Auto) 7 % (0-12); Neutrophils # (Auto) 18.3 Thou/mm3 (1.8-7.7); Neutrophils % (Auto) 80 % (37-80); Nucleated Red Blood Cell # 0.00 Thou/mm3 (0.00-0.00); Nucleated Red Blood Cell % 0 /100 WBC (0); Platelet Count 349 Thou/mm3 (140-440); RDW Standard Deviation 55.2 fL (36.4-46.3); Red Blood Count 3.48 Miln/mm3 (4.00-5.20); White Blood Count 22.9 Thou/mm3 (3.6-11.0)
[2025-08-15 07:23] LABS: Alanine Aminotransferase 26 U/L (10-49); Albumin, Serum 4.2 gm/dL (3.4-4.8); Albumin/Globulin Ratio 1.1 (1.2-2.2); Alkaline Phosphatase 86 U/L (46-116); Anion Gap 14 (7-16); Aspartate Amino Transferase 34 U/L (0-34); BUN/Creatinine Ratio 8 Ratio (12-20); Bilirubin,Total 0.3 mg/dL (0.3-1.2); Blood Urea Nitrogen 34 mg/dL (9-23); Calcium 8.8 mg/dL (8.3-10.6); Calcium (Corrected) 8.8 mg/dL (8.5-10.1); Carbon Dioxide 26.5 mMol/L (20.0-31.0); Chloride 95 mMol/L (98-107); Creatinine (Component) 4.3 mg/dL (0.6-1.3); Estimated Creatinine Clearance 17.1 mL/min (>60); Globulin 3.7 gm/dL (2.3-3.5); Glucose 128 mg/dL (74-106); Magnesium 2.0 mg/dL (1.6-2.6); Osmolality,Calculated 279 (275-295); Phosphorous 5.7 mg/dL (2.4-5.1); Potassium 4.2 mMol/L (3.4-5.1); Sodium 135 mMol/L (136-145); Total Protein 7.9 gm/dL (5.7-8.2); Triglycerides 142 mg/dL (30-150); Vancomycin,Random 15.3 mcg/mL; eGFR 11 See Note
--- NOTE | 2025-08-15 08:04 | ESPR_ITS ---
Documentation for date of: 08/15/25 Subjective Subjective Interval history: Patient seen and examined at bedside, reports that she wants to go home. Patient refusing JONES, we recommend continuing antibiotics to complete treatment for endocarditis per infectious disease recommendations Continues to remain hypotensive, on midodrine 10 mg p.o. every 6 hours and amiodarone 200 p.o. twice daily. Unable to tolerate GDMT. Exam Vital Signs Temp Pulse Resp BP Pulse Ox O2 Del Method O2 Flow Rate 96.9 F 64 16 96/57 L 99 Nasal Cannula 2 08/15/25 03:55 08/15/25 05:39 08/15/25 03:55 08/15/25 05:39 08/15/25 03:55 08/15/25 03:55 08/15/25 03:55 Narrative Exam GENERAL: A&Ox3, no acute distress HEENT: mucous membranes moist, bilateral sclera anicteric CARDIOVASCULAR: Irregularly irregular, S1/S2 present, no murmurs appreciated PULMONARY: clear to auscultation bilaterally, no rales/rhonchi/wheezes ABDOMINAL: soft, non-tender, non-distended, no rebound/guarding, bowel sounds present EXTREMITIES: 1+ BLE pitting edema SKIN: warm and dry, intact, no rashes NEURO: CN II-XII grossly intact, alert, following commands, L sided motor deficits, hand and feet flexed sensation intact, no neglect Objective Labs 08/15/25 06:03 08/15/25 06:03 Labs: Laboratory Results - last 24 hr 08/14/25 08/15/25 15:15 06:03 WBC 25.2 H 22.9 H RBC 3.36 L 3.48 L Hgb 10.4 L 10.9 L Hct 33.3 L 34.4 L MCV 99 99 MCH 31.0 31.3 MCHC 31.2 31.7 RDW Std Deviation 55.8 H 55.2 H Plt Count 423 D 349 D Neut % (Auto) 80 80 Lymph % (Auto) 11 11 [place] % (Auto) 7 7 Eos % (Auto) 0 1 Baso % (Auto) 0 0 Neut # (Auto) 20.2 H 18.3 H Lymph # (Auto) 2.7 2.6 [place] # (Auto) 1.7 H 1.6 H Eos # (Auto) 0.1 0.1 Baso # (Auto) 0.1 0.1 Immature Gran # (Auto) 0.51 H 0.30 H Absolute Nucleated RBC 0.00 0.00 Immature Gran % 2 H 1 H Nucleated RBC % 0 0 Sodium 137 135 L Potassium 4.4 4.2 Chloride 95 L 95 L Carbon Dioxide 26.6 26.5 Anion Gap 15 14 BUN 29 H 34 H Creatinine 3.8 H 4.3 H* D Estim Creat Clear Calc 19.2 L 17.1 L eGFR 13 L* 11 L* BUN/Creatinine Ratio 8 L 8 L Glucose 93 D 128 H Calculated Osmolality 279 279 Calcium 8.7 8.8 Corrected Calcium 8.7 8.8 Phosphorus 4.6 5.7 H Magnesium 2.1 2.0 Total Bilirubin 0.4 0.3 AST 23 34 ALT 21 26 Alkaline Phosphatase 79 86 Total Protein 7.6 7.9 Albumin 4.1 4.2 Globulin 3.5 3.7 H Albumin/Globulin Ratio 1.2 1.1 L Triglycerides 143 142 Random Vancomycin 17.5 15.3 ABG Interpretation ABG results: 08/06/25 08/07/25 11:42 04:24 ABG pH 7.41 7.42 ABG pCO2 41 38 ABG pO2 96 71 L D ABG HCO3 26 25 ABG O2 Saturation 98 95 ABG Base Excess 1 0 Quality Measures Quality Measures none Assessment & Plan Assessment Current Active Medications: Generic Name Dose Route Start Last Admin Trade Name Freq PRN Reason Stop Dose Admin Acetaminophen 650 mg 08/06/25 15:58 08/14/25 19:56 Acetaminophen 325 Mg Tablet PO 09/05/25 15:57 650 mg Q6H PRN Administration Fever >100.4 or pain 1-3 Amiodarone HCl 200 mg 08/07/25 09:35 08/14/25 20:12 Amiodarone Hcl 200 Mg Tablet PO 09/06/25 09:34 200 mg BID RIANNA Administration Dextrose 25 ml 08/06/25 16:07 08/08/25 11:38 Dextrose 50%-Water Inj 50 Ml Syringe IV 09/05/25 16:06 25 ml Q15MIN PRN Administration BG 50-70 responsive npo pt Dextrose 50 ml 08/06/25 16:07 Dextrose 50%-Water Inj 50 Ml Syringe IV 09/05/25 16:06 Q15MIN PRN BG <50 OR BG <70 & pt unresponsive Docusate Sodium 100 mg 08/07/25 09:00 08/14/25 09:08 Docusate Sod 100 Mg Capsule PO 09/06/25 08:59 100 mg QDAY RIANNA Administration Protocol Glucagon 1 mg 08/06/25 16:07 Glucagon Inj 1 Mg Vial IM Q15MIN PRN BG <70, and no IV access Heparin Sodium (Porcine) 5,000 unit 08/06/25 16:15 08/09/25 21:37 Heparin Sod Inj 5000 Unit/Ml Vial SC 08/20/25 16:14 5,000 unit On Hold: 08/10/25 00:00 Q8HR RIANNA Administration Heparin Sodium (Porcine) 2,200 unit 08/11/25 14:27 08/13/25 12:57 Heparin Sod Inj 1000 Unit/Ml Vial 10 Ml INDWELLCAT 08/25/25 14:26 2,200 unit PRN PRN Administration DIALYSIS Albumin Human 25 gm in 100 mls @ 0 mls/hr 08/11/25 11:52 08/11/25 11:52 Albuminex 25% Ivpb IV 300 mls/hr Q30MIN PRN Administration To maintain SBP>90 Per Protocol Vancomycin HCl 200 mls @ 120 mls/hr 08/15/25 10:00 Vancomycin/Water 1gm Ivpb IV 08/15/25 11:39 X1 ONE Levothyroxine Sodium 50 mcg 08/08/25 06:00 08/15/25 05:39 Levothyroxine Sodium 25 Mcg Tablet PO 09/07/25 05:59 50 mcg ACBR RIANNA Administration Midodrine 10 mg 08/07/25 09:40 08/15/25 05:39 Midodrine 5 Mg Tablet PO 09/06/25 09:39 10 mg Q6HR RIANNA Administration Ondansetron HCl 4 mg 08/06/25 15:58 08/13/25 22:22 Ondansetron Inj 2 Mg/Ml Inj 2 Ml IVP 09/05/25 15:57 4 mg Q6H PRN Administration NAUSEA OR VOMITING Protocol Pharmacy Consult 1 each 08/11/25 09:00 Vancomycin Pharmacy To Dose 1 Each Each IV 09/10/25 08:59 QDAY PRN CONSULT Pharmacy Consult 1 each 08/11/25 08:54 Pharmacy Renal Dose Adjustment 1 Ea XX 09/10/25 08:53 PRN PRN CONSULT Vitamin B Complex/Vit C/Folic Acid 1 tab 08/08/25 16:30 08/14/25 09:08 Vit B12/Vit C/Fa (Nephrovite) Tablet PO 09/07/25 16:29 1 tab QDAY RIANNA Administration Plan Assessment and Plan: Summary: Ms. Elizondo is a 64-year-old female with past medical history of CVA, atrial fibrillation on Eliquis, HFrEF EF 15 to 20%, dilated cardiomyopathy, ESRD on hemodialysis Friday//Friday, hypothyroidism, iron deficiency anemia, nephrolithiasis and mood disorder who presented to [facility] emergency department on 08/06/2025, patient found to be lethargic and hypotensive with fever and was admitted to intensive care unit for distributive shock management. Further hospitalization course patient found to have infected dialysis catheter which was removed by interventional radiology, patient had temporary dialysis catheter placed. Post catheter exchange patient continues to be bacteremic and cardiology service consulted for JONES to rule out endocarditis. #Bacteremia #Rule out endocarditis Patient continues to have bacteremia post removal of dialysis catheter which was thought to be infected. Temporary dialysis catheter placed, latest blood cultures still positive for GPC. Infectious diseases following, per ID patient's likely source thought to be dialysis catheter. However primary team consulted for JONES to rule out endocarditis. Please clarify with infectious disease regarding the need for JONES Transthoracic echocardiogram reviewed, no major changes in valvular gradients compared to previous echocardiograms, low suspicion of bacterial endocarditis. Antibiotics per ID recommendations, management per primary team Patient was kept NPO but she is refusing JONES 08/12. Patient continues to refuse JONES today Patient was explained that JONES was recommended to rule out endocarditis as she has MRSA bacteremia. Patient informed that she will have to do 4-6 weeks of antibiotics if she does not have the JONES. Patient wants only antibiotics. Primary team to discuss with the patient again and if she is agreeable we will plan JONES on friday. Otherwise antibiotics duration as per ID. #Heart failure with severely reduced ejection fraction, EF 15 to 20% #Dilated cardiomyopathy Patient has history of severely reduced ejection fraction heart failure. Has been seen in the past, well-known to practice. Recommended GDMT in the past however not noted on patient's med reconciliation. Patient has significant hypotension on midodrine, unable to tolerate GDMT Transthoracic echo 08/07/2025 shows 1. Left ventricle size is moderately enlarged and severe global hypokenesis and severe systolic dysfunction.. Estimated ejection fraction is 15-20%. 2. Right ventricle chamber size is normal and systolic function is mildly reduced. Estimated RVSP is 35-40 mmHg. Mild to moderate pulmonary hypertension. 3. Moderate MR, mild to moderate TR and trace AI. 4. The left atrium is severely enlarged. The right atrium is mildly enlarged. 5. Not well visualized IVC with estimated RA pressure 8 mmHg. Recommendations: - Continue hemodialysis to maintain euvolemia status - Introduce GDMT as tolerated, continue midodrine #Atrial fibrillation, by history Patient has history of atrial fibrillation on Eliquis CHADSVASC score 4, 4.8% stroke risk per year HASBLED 3 EKG 08/05/2025 shows A-fib with RVR ? Continue amiodarone 200 mg p.o. twice daily ? We recommend heparin gtt. if no contraindications and procedures are planned and Eliquis is contraindicated. ? Keep potassium greater than 4 and magnesium greater than 2 at all times #NSTEMI type II secondary to demand ischemia Patient denies any chest pain troponin initially elevated in setting of distributive shock #ESRD on hemodialysis #Electrolyte abnormalities #Hyperphosphatemia #Pressure ulcers #Hypothyroidism #History of CVA, residual left-sided hemiplegia ?Management per primary team Thank you for the consult and allowing to participate in the care of the patient. Cardiology will continue to follow. Case discussed with Attending Physician Dr. Bishnu Williamson MD Internal Medicine PGY-2 Disclaimer: This note was dictated by speech recognition. Minor errors in addressograph operator may be present due to voice recognition software. Attending Provider Attestation/Addendum I have personally seen and examined the patient separately on the above date of service and discussed the plan of care with the resident. I reviewed the resident Dr. Kimani Williamson consultation progress note and agree with the resident findings and plan in the note above and have also edited the documentation to reflect my findings and plan. Bishnu Barcenas M.D. Interventional Cardiology
--- NOTE | 2025-08-15 09:00 | XR_ITS ---
EXAMINATION: AP chest single view TECHNIQUE: AP portable semiupright chest single view Date and time: August 15, 2025, 0535 hours, comparison August 14, 2025 INDICATION: Wheezing today. FINDINGS: Pneumonia in both lower lung zones Mild enlargement cardiac contour Also pneumonia in the right upper lobe Moderate vascular congestion Severe osteopenia IMPRESSION: Significant areas of bilateral pneumonia
[2025-08-15] MEDS: VIT B12/Vit C/FA (Nephrovite) TABLET 1 TAB PO (09:06)
[2025-08-15] MEDS: AMIODARONE HCL 200 MG TABLET PO ×2 (09:06→21:18)
[2025-08-15] MEDS: DOCUSATE SOD 100 MG CAPSULE PO (09:06)
[2025-08-15] MEDS: VANCOMYCIN/WATER 1GM IVPB 200 ML IV (09:19)
--- NOTE | 2025-08-15 09:25 | PD.IDPROG ---
Subjective Subjective Interval history: need neg bc by wed to proceed with tdc Exam Vital Signs Temp Pulse Resp BP Pulse Ox O2 Del Method O2 Flow Rate 96.5 F L 79 20 103/69 93 L Nasal Cannula 2 08/15/25 08:00 08/15/25 09:06 08/15/25 08:00 08/15/25 09:06 08/15/25 08:00 08/15/25 08:00 08/15/25 08:00 Narrative Exam wants home with . hd line removed per resident. Objective - Internal Medicine Labs 08/15/25 06:03 08/15/25 06:03 Labs: Laboratory Results - last 24 hr 08/14/25 08/15/25 15:15 06:03 WBC 25.2 H 22.9 H RBC 3.36 L 3.48 L Hgb 10.4 L 10.9 L Hct 33.3 L 34.4 L MCV 99 99 MCH 31.0 31.3 MCHC 31.2 31.7 RDW Std Deviation 55.8 H 55.2 H Plt Count 423 D 349 D Neut % (Auto) 80 80 Lymph % (Auto) 11 11 [place] % (Auto) 7 7 Eos % (Auto) 0 1 Baso % (Auto) 0 0 Neut # (Auto) 20.2 H 18.3 H Lymph # (Auto) 2.7 2.6 [place] # (Auto) 1.7 H 1.6 H Eos # (Auto) 0.1 0.1 Baso # (Auto) 0.1 0.1 Immature Gran # (Auto) 0.51 H 0.30 H Absolute Nucleated RBC 0.00 0.00 Immature Gran % 2 H 1 H Nucleated RBC % 0 0 Sodium 137 135 L Potassium 4.4 4.2 Chloride 95 L 95 L Carbon Dioxide 26.6 26.5 Anion Gap 15 14 BUN 29 H 34 H Creatinine 3.8 H 4.3 H* D Estim Creat Clear Calc 19.2 L 17.1 L eGFR 13 L* 11 L* BUN/Creatinine Ratio 8 L 8 L Glucose 93 D 128 H Calculated Osmolality 279 279 Calcium 8.7 8.8 Corrected Calcium 8.7 8.8 Phosphorus 4.6 5.7 H Magnesium 2.1 2.0 Total Bilirubin 0.4 0.3 AST 23 34 ALT 21 26 Alkaline Phosphatase 79 86 Total Protein 7.6 7.9 Albumin 4.1 4.2 Globulin 3.5 3.7 H Albumin/Globulin Ratio 1.2 1.1 L Triglycerides 143 142 Random Vancomycin 17.5 15.3 ABG Interpretation ABG results: 08/06/25 08/07/25 11:42 04:24 ABG pH 7.41 7.42 ABG pCO2 41 38 ABG pO2 96 71 L D ABG HCO3 26 25 ABG O2 Saturation 98 95 ABG Base Excess 1 0 Assessment & Plan A&P Narrative bacteremia mrsa [id number]. off hd temporarily need neg bc at 48hr to proceed with tdc. temp ok but if bc stay pos, may need mary if cardio can do it vs prolonged rx with hd. Time Spent With Patient Time: Total time spent is greater than 50% in coordination of care (as documented) at patient's floor/unit and/or counseling patient:
--- NOTE | 2025-08-15 09:31 | ESPR_ITS ---
Documentation for date of: 08/15/25 Subjective Subjective Interval history: Patient seen and examined at bedside; no acute events overnight. Wants to go home. Exam Vital Signs Temp Pulse Resp BP Pulse Ox O2 Del Method O2 Flow Rate 96.5 F L 79 20 103/69 93 L Nasal Cannula 2 08/15/25 08:00 08/15/25 09:06 08/15/25 08:00 08/15/25 09:06 08/15/25 08:00 08/15/25 08:00 08/15/25 08:00 Narrative Exam GENERAL: A&Ox3, agitated HEENT: mucous membranes moist, bilateral sclera anicteric CARDIOVASCULAR: regular rate and rhythm, S1/S2 present, no murmurs appreciated PULMONARY: clear to auscultation bilaterally, no rales/rhonchi/wheezes ABDOMINAL: soft, non-tender, non-distended, no rebound/guarding, bowel sounds present EXTREMITIES: 1+ BLE pitting edema SKIN: warm and dry, intact, no rashes NEURO: CN II-XII grossly intact, alert, following commands, L sided motor deficits, hand and feet flexed sensation intact, no neglect Objective Labs 08/15/25 06:03 08/15/25 06:03 Labs: Laboratory Results - last 24 hr 08/14/25 08/15/25 15:15 06:03 WBC 25.2 H 22.9 H RBC 3.36 L 3.48 L Hgb 10.4 L 10.9 L Hct 33.3 L 34.4 L MCV 99 99 MCH 31.0 31.3 MCHC 31.2 31.7 RDW Std Deviation 55.8 H 55.2 H Plt Count 423 D 349 D Neut % (Auto) 80 80 Lymph % (Auto) 11 11 Cooper % (Auto) 7 7 Eos % (Auto) 0 1 Baso % (Auto) 0 0 Neut # (Auto) 20.2 H 18.3 H Lymph # (Auto) 2.7 2.6 Cooper # (Auto) 1.7 H 1.6 H Eos # (Auto) 0.1 0.1 Baso # (Auto) 0.1 0.1 Immature Gran # (Auto) 0.51 H 0.30 H Absolute Nucleated RBC 0.00 0.00 Immature Gran % 2 H 1 H Nucleated RBC % 0 0 Sodium 137 135 L Potassium 4.4 4.2 Chloride 95 L 95 L Carbon Dioxide 26.6 26.5 Anion Gap 15 14 BUN 29 H 34 H Creatinine 3.8 H 4.3 H* D Estim Creat Clear Calc 19.2 L 17.1 L eGFR 13 L* 11 L* BUN/Creatinine Ratio 8 L 8 L Glucose 93 D 128 H Calculated Osmolality 279 279 Calcium 8.7 8.8 Corrected Calcium 8.7 8.8 Phosphorus 4.6 5.7 H Magnesium 2.1 2.0 Total Bilirubin 0.4 0.3 AST 23 34 ALT 21 26 Alkaline Phosphatase 79 86 Total Protein 7.6 7.9 Albumin 4.1 4.2 Globulin 3.5 3.7 H Albumin/Globulin Ratio 1.2 1.1 L Triglycerides 143 142 Random Vancomycin 17.5 15.3 ABG Interpretation ABG results: 08/06/25 08/07/25 11:42 04:24 ABG pH 7.41 7.42 ABG pCO2 41 38 ABG pO2 96 71 L D ABG HCO3 26 25 ABG O2 Saturation 98 95 ABG Base Excess 1 0 Quality Measures Quality Measures none Assessment & Plan Assessment Current Active Medications: Generic Name Dose Route Start Last Admin Trade Name Freq PRN Reason Stop Dose Admin Acetaminophen 650 mg 08/06/25 15:58 08/14/25 19:56 Acetaminophen 325 Mg Tablet PO 09/05/25 15:57 650 mg Q6H PRN Administration Fever >100.4 or pain 1-3 Amiodarone HCl 200 mg 08/07/25 09:35 08/15/25 09:06 Amiodarone Hcl 200 Mg Tablet PO 09/06/25 09:34 200 mg BID RIANNA Administration Dextrose 25 ml 08/06/25 16:07 08/08/25 11:38 Dextrose 50%-Water Inj 50 Ml Syringe IV 09/05/25 16:06 25 ml Q15MIN PRN Administration BG 50-70 responsive npo pt Dextrose 50 ml 08/06/25 16:07 Dextrose 50%-Water Inj 50 Ml Syringe IV 09/05/25 16:06 Q15MIN PRN BG <50 OR BG <70 & pt unresponsive Docusate Sodium 100 mg 08/07/25 09:00 08/15/25 09:06 Docusate Sod 100 Mg Capsule PO 09/06/25 08:59 100 mg QDAY RIANNA Administration Protocol Glucagon 1 mg 08/06/25 16:07 Glucagon Inj 1 Mg Vial IM Q15MIN PRN BG <70, and no IV access Heparin Sodium (Porcine) 5,000 unit 08/06/25 16:15 08/09/25 21:37 Heparin Sod Inj 5000 Unit/Ml Vial SC 08/20/25 16:14 5,000 unit On Hold: 08/10/25 00:00 Q8HR RIANNA Administration Heparin Sodium (Porcine) 2,200 unit 08/11/25 14:27 08/13/25 12:57 Heparin Sod Inj 1000 Unit/Ml Vial 10 Ml INDWELLCAT 08/25/25 14:26 2,200 unit PRN PRN Administration DIALYSIS Albumin Human 25 gm in 100 mls @ 0 mls/hr 08/11/25 11:52 08/11/25 11:52 Albuminex 25% Ivpb IV 300 mls/hr Q30MIN PRN Administration To maintain SBP>90 Per Protocol Vancomycin HCl 200 mls @ 120 mls/hr 08/15/25 10:00 08/15/25 09:19 Vancomycin/Water 1gm Ivpb IV 08/15/25 11:39 120 mls/hr X1 ONE Administration Levothyroxine Sodium 50 mcg 08/08/25 06:00 08/15/25 05:39 Levothyroxine Sodium 25 Mcg Tablet PO 09/07/25 05:59 50 mcg ACBR RIANNA Administration Midodrine 10 mg 08/07/25 09:40 08/15/25 05:39 Midodrine 5 Mg Tablet PO 09/06/25 09:39 10 mg Q6HR RIANNA Administration Ondansetron HCl 4 mg 08/06/25 15:58 08/13/25 22:22 Ondansetron Inj 2 Mg/Ml Inj 2 Ml IVP 09/05/25 15:57 4 mg Q6H PRN Administration NAUSEA OR VOMITING Protocol Pharmacy Consult 1 each 08/11/25 09:00 Vancomycin Pharmacy To Dose 1 Each Each IV 09/10/25 08:59 QDAY PRN CONSULT Pharmacy Consult 1 each 08/11/25 08:54 Pharmacy Renal Dose Adjustment 1 Ea XX 09/10/25 08:53 PRN PRN CONSULT Vitamin B Complex/Vit C/Folic Acid 1 tab 08/08/25 16:30 08/15/25 09:06 Vit B12/Vit C/Fa (Nephrovite) Tablet PO 09/07/25 16:29 1 tab QDAY RIANNA Administration Plan 64-year-old female with PMH of 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 Landry, and history of staghorn calculi, was transferred to ED from a nursing facility with lethargy, hypotension, and fever. Patient admitted to ICU for sepsis workup and downgraded to floors on 08/07/25. #Septic shock (resolving) secondary to #Sepsis caused by #Dialysis catheter infection and/or #Hospital-associated pneumonia #NSTEMI type II 2/2 blood cultures 08/06/25 positive for GPCs 08/06/25 1/2 BCx + MRSA 08/06/25 UCx pending 08/06/25- Troponin peaked 1.423, then fell to 1.175 08/07/25 1/2 BCx +MRSA 08/08/25 2/2 BCx MRSA in 2/2; catheter tip culture + MRSA 08/09/25 2/2 BCx +same MRSA as on 08/08 08/11 2/2 Bcx +MRSA 08/13 2/2 Bcx +GPC WBC 22.9 today Plan: IV vancomycin Remove old dialysis catheter 08/08/25; temporary catheter placed 08/10/25; Plan to place permanent catheter when 48 hours of negative cultures achieved. Removed temporary catheter 08/13/25 Follow up blood cx ID consulted, thank you for recs- vancomycin alone, B12 tablet daily, catheter needs 48h negative cultures Will get JONES to check for cardiac vegetations Obtained repeat BCx 08/13: Continues to show gram-positive cocci Discussed with cardiology on 08/12: Since we still have not heard back from ID, will pursue JONES. However, patient declined the procedure just before she went downstairs for it #End-stage renal disease on dialysis (T/T/F) #Electrolyte abnormalities #Hyperphosphatemia Had dialysis today Plan: Hemodialysis (T/T/F) Avoid nephrotoxic agents, renally dose medicines Exchange catheter as above Give midodrine after dialysis if BP low #Agitation #Suicidal ideation Patient was very agitated today wanting to go home AMA; expressed suicidal ideation to myself and attending. Plan: Placed on 1 to 1 sitter #A-fib [id number]: 5 Patient has history of A-fib. Plan: ? Monitor EKG - Amiodarone 200 BID - K > 4, Mg > 2 #HFrEF (15-20%), stable Longstanding hx. And previously patient has refused cardiac cath, continues to refuse. 08-07-25 Echo shows LV size moderately enlarged and severe global hypokinesis and severe systolic dysfunction estimated EF 15 to 20%. RV chamber size normal systolic function mildly reduced, RVSP 35 to 40 mmHg, mild to moderate pulmonary hypertension, moderate MR, mild to moderate TR and trace AI, LA severely enlarged, RA mildly enlarged Plan: ? Caution with fluids - Keep K>4 and Mg>2 at all times #Pressure ulcers Sacral and decubitous ulcer and lateral leg ulcers. Do not appear cellulitic, more granulotamous. Ankle has a purulent base with oozing without cellultic changes. Plan: Continue to monitor, wound care referral placed #Hypothyroidism Patient has history of hypothyroidism. Plan: Restart home levothyroxine 50mcg #Hx of CVA, residual L-sided hemiplegia Stable Disposition: Med-Surg DVT prophylaxis: heparin 5000u q8h GI prophylaxis: none Diet: Renal, 1.8L fluid restriction Lines: PIV CODE STATUS: Full code This case was discussed with my attending physician, Dr. Raygoza, and senior resident, Dr. Freeman. Rom Evans, PGY1 Senior Resident Attestation: The patient's blood culture was again positive, and has been positive for MRSA so far, and repeated blood culture. The patient was requesting to go home. Yesterday, as the patient had some concerns regarding suicidal ideation, we have placed the patient on one-to-one sitter. We will continue with IV vancomycin, and patient has denied JONES, and pending MRI of spine to rule out any osteomyelitis for possible source. I discussed with and supervised the environmental intern physician involved in the care of this patient. I personally saw and examined the patient and discussed the assessment and plan with the entire medicine team, including my attending. I agree with the assessment and plan as documented above. Lucian Freeman MD PGY3 Internal Medicine Attending Provider Attestation/Addendum Patient has one-to-one sitter. She had suicidal thoughts yesterday. She is on line holiday. She is currently on IV vancomycin for MRSA bacteremia. She refused JONES. TTE did not show signs of vegetation. The patient told staff that she wanted to go home. We explained to her that she still needs IV antibiotic to continue before she can be sent home. She still needs dialysis catheter reinserted once blood cultures are negative. Blood cultures obtained today. Discussed with housestaff
--- NOTE | 2025-08-15 12:31 | ESPR_ITS ---
RE: RUBÉN VIVAR : 1960 DATE OF SERVICE: 08/12/2025 HISTORY OF PRESENT ILLNESS: Briefly she is a 64 year old woman with history of CVA, atrial fibrillation, heart failure with EF of 15 to 20%, moderate pulmonary hypertension, ESRD on dialysis since 04/30/2025, dialyzing every Tuesdays, , Saturdays at [facility], who was admitted to the hospital on 08/06/2025 with fever and confusion. Patient later on was found with MRSA septicemia. Patient has persistent MRSA bacteremia. Tunneled dialysis catheter was removed and was replaced by a temporary dialysis catheter. She is currently taking vancomycin IV. PHYSICAL EXAMINATION: General: She is asleep but arousable. Vital Signs: Blood pressure of 98/56, heart rate of 80. HEENT: Anicteric sclerae, normocephalic. Neck: Supple, JVD. Chest and Lungs: Symmetric expansion, clear breath sounds. Cardiac: No rub or murmur. Abdomen: Soft. Extremities. Less edema now. LABORATORY DATA: Hemoglobin 10.2, WBC 19,600, platelet count 315,000. Sodium 139, potassium 3.8, chloride 97, CO2 of 29.1, BUN 14, creatinine 2.6. ASSESSMENT: 1. End-stage renal disease. 2. Persistent methicillin-resistant Staphylococcus aureus bacteremia. 3. Anemia of chronic kidney disease. 4. History of staghorn calculi. 5. Heart failure with reduced ejection fraction of 15 to 20%. 6. Hypotension. PLAN: Patient will be dialyzed tomorrow and should have the temporary dialysis catheter removed. Patient will have JONES to rule out endocarditis. Continue IV vancomycin. DT: 22:36:33 TT: 22:55:00 Ref: [id number] - TID: [id number] MTDD
--- NOTE | 2025-08-15 14:56 | PC.NURSE ---
MD Kimble made aware patient was take to MRI, but patient refused once arriving at MRI. No, new orders.
--- NOTE | 2025-08-15 15:12 | PC.SS ---
Rounding Note: Patient is pending MRI of lumbar spine. Blood cultures are pending. Pending medical clearance for mental health evaluation.
--- NOTE | 2025-08-15 22:47 | ESPR_ITS ---
RE: RUBÉN VIVAR : 1960 DATE OF SERVICE: 08/15/2025 HISTORY OF PRESENT ILLNESS: Briefly, she is a 64-year-old woman with history of CVA, atrial fibrillation, heart failure with EF of 15%-20%, moderate pulmonary hypertension, and ESRD, on dialysis since 04/30/2025, dialyzing every Friday, , Friday at the [facility], who was admitted to the hospital on 08/06/2025 with fever and confusion. Patient was found with MRSA septicemia and being treated with vancomycin. Patient was scheduled for an MRI with contrast for her back, but she refused earlier today. CURRENT MEDICATIONS: 1. Acetaminophen. 2. Amiodarone 200 mg p.o. b.i.d. 3. Docusate sodium. 4. Vancomycin 1 gram daily. PHYSICAL EXAMINATION: General: She is awake, alert, oriented. Vital Signs: Blood pressure 111/74. HEENT: Anicteric sclerae. Normocephalic. Neck: Supple, JVD. Chest and Lungs: Symmetric expansion. Clear breath sounds. Cardiac: No rub or murmur. Abdomen: Soft, nontender. Extremities: No edema. LABORATORY DATA: Hemoglobin 10.9, WBC 22,900, platelet count 394,000. Sodium 135, potassium 4.2, chloride 95, CO2 of 26.3, BUN 34, creatinine 4.3, calcium 8.8, phosphorus 5.7. ASSESSMENT: 1. End-stage renal disease. 2. Persistent methicillin-resistant Staphylococcus aureus bacteremia. 3. Anemia of chronic kidney disease. 4. History of staghorn calculi. 5. Heart failure with reduced ejection fraction of 15%-20%. 6. Hypotension. PLAN: Patient still has a positive blood culture for MRSA since 08/13/2025. We are waiting for the result of blood cultures done on 08/15/2025, which is today. Temporary dialysis was already removed. We will continue IV antibiotics. DT: 22:30:03 TT: 22:47:00 Ref: [id number] - TID: [id number] MTDD
[2025-08-16] VITALS (17 sets, daily range): BP systolic 92–106; BP diastolic 54–76; PULSE 62–106; RESP 18–100; TEMP 36.1–37.5; O2SAT 92–99; BMI 27.7
[2025-08-16] MEDS: MIDODRINE 5 MG TABLET 10 MG PO ×4 (00:22→17:26)
[2025-08-16] MEDS: LEVOTHYROXINE SODIUM 25 MCG TABLET 50 MCG PO (05:18)
[2025-08-16 06:38] LABS: Basophils # (Auto) 0.1 Thou/mm3 (0.0-0.2); Basophils % (Auto) 0 % (0-2.5); Eosinophils # (Auto) 0.0 Thou/mm3 (0.0-0.5); Eosinophils % (Auto) 0 % (0-10); Hematocrit 28.9 % (36.0-46.0); Hemoglobin 9.3 g/dL (12.0-16.0); Immature Granulocytes Auto 0.24 Thou/mm3 (0.00-0.00); Lymphocytes # (Auto) 2.9 Thou/mm3 (1.0-4.8); Lymphocytes % (Auto) 13 % (10-50); Mean Corpuscular HGB Conc 32.2 g/dl (31.0-37.0); Mean Corpuscular Hemoglobin 30.8 pg (25.0-35.0); Mean Corpuscular Volume 96 fL (80-100); Monocytes # (Auto) 1.2 Thou/mm3 (0.0-0.8); Monocytes % (Auto) 6 % (0-12); Neutrophils # (Auto) 17.8 Thou/mm3 (1.8-7.7); Neutrophils % (Auto) 80 % (37-80); Nucleated Red Blood Cell # 0.00 Thou/mm3 (0.00-0.00); Nucleated Red Blood Cell % 0 /100 WBC (0); Platelet Count 358 Thou/mm3 (140-440); RDW Standard Deviation 53.1 fL (36.4-46.3); Red Blood Count 3.02 Miln/mm3 (4.00-5.20); White Blood Count 22.2 Thou/mm3 (3.6-11.0)
[2025-08-16 07:19] LABS: Alanine Aminotransferase 22 U/L (10-49); Albumin, Serum 3.7 gm/dL (3.4-4.8); Albumin/Globulin Ratio 1.1 (1.2-2.2); Alkaline Phosphatase 80 U/L (46-116); Anion Gap 18 (7-16); Aspartate Amino Transferase 23 U/L (0-34); BUN/Creatinine Ratio 10 Ratio (12-20); Bilirubin,Total 0.3 mg/dL (0.3-1.2); Blood Urea Nitrogen 51 mg/dL (9-23); Calcium 7.9 mg/dL (8.3-10.6); Calcium (Corrected) 8.1 mg/dL (8.5-10.1); Carbon Dioxide 21.5 mMol/L (20.0-31.0); Chloride 96 mMol/L (98-107); Creatinine (Component) 5.1 mg/dL (0.6-1.3); Estimated Creatinine Clearance 14.4 mL/min (>60); Globulin 3.5 gm/dL (2.3-3.5); Glucose 96 mg/dL (74-106); Magnesium 2.1 mg/dL (1.6-2.6); Osmolality,Calculated 283 (275-295); Phosphorous 6.1 mg/dL (2.4-5.1); Potassium 4.6 mMol/L (3.4-5.1); Sodium 135 mMol/L (136-145); Total Protein 7.2 gm/dL (5.7-8.2); Triglycerides 152 mg/dL (30-150); eGFR 9 See Note
--- NOTE | 2025-08-16 09:00 | XR_ITS ---
EXAMINATION: AP chest portable semiupright single view TECHNIQUE: AP portable semiupright chest single view Date and time: August 16, 2025, 0906 hours, comparison August 15, 2025 INDICATIONS: Wheezing this morning. FINDINGS: Moderate elevation right hemidiaphragm Mild enlargement cardiac contour Moderate vascular congestion Opacity both lung bases consistent with mild pneumonia Severe osteopenia IMPRESSION: Moderate vascular congestion Findings most consistent with mild bilateral pneumonia
--- NOTE | 2025-08-16 09:02 | PC.NURSE ---
Called Dr. robles to ask if pt is getting dialysis cath inserted. manufacturing laborer called me and stated that hospice physician called them for placement. Per MD no procedures scheduled for today. Updated laboratory scientist
--- NOTE | 2025-08-16 09:04 | ESPR_ITS ---
Documentation for date of: 08/16/25 Subjective Subjective Interval history: Patient seen and examined at bedside, reports that she wants to go home and feels like she is trapped here, has a sitter. Patient refusing JONES, we recommend continuing antibiotics to complete treatment for endocarditis per infectious disease recommendations Continues to remain hypotensive, on midodrine 10 mg p.o. every 6 hours and amiodarone 200 p.o. twice daily. Unable to tolerate GDMT. Exam Vital Signs Temp Pulse Resp BP Pulse Ox O2 Del Method O2 Flow Rate 99.5 F 68 18 92/65 99 Nasal Cannula 3 08/16/25 07:22 08/16/25 07:22 08/16/25 07:22 08/16/25 07:22 08/16/25 07:22 08/16/25 07:22 08/16/25 07:22 Narrative Exam GENERAL: A&Ox3, no acute distress HEENT: mucous membranes moist, bilateral sclera anicteric CARDIOVASCULAR: Irregularly irregular, S1/S2 present, no murmurs appreciated PULMONARY: clear to auscultation bilaterally, no rales/rhonchi/wheezes ABDOMINAL: soft, non-tender, non-distended, no rebound/guarding, bowel sounds present EXTREMITIES: trace BLE pitting edema SKIN: warm and dry, intact, no rashes NEURO: CN II-XII grossly intact, alert, following commands, L sided motor deficits, hand and feet flexed sensation intact, no neglect Objective Labs 08/16/25 13:50 08/16/25 05:25 Labs: Laboratory Results - last 24 hr 08/16/25 05:25 WBC 22.2 H RBC 3.02 L Hgb 9.3 L Hct 28.9 L MCV 96 MCH 30.8 MCHC 32.2 RDW Std Deviation 53.1 H Plt Count 358 Neut % (Auto) 80 Lymph % (Auto) 13 Hanson % (Auto) 6 Eos % (Auto) 0 Baso % (Auto) 0 Neut # (Auto) 17.8 H Lymph # (Auto) 2.9 Hanson # (Auto) 1.2 H Eos # (Auto) 0.0 Baso # (Auto) 0.1 Immature Gran # (Auto) 0.24 H Absolute Nucleated RBC 0.00 Immature Gran % 1 H Nucleated RBC % 0 Sodium 135 L Potassium 4.6 Chloride 96 L Carbon Dioxide 21.5 Anion Gap 18 H BUN 51 H Creatinine 5.1 H* D Estim Creat Clear Calc 14.4 L eGFR 9 L* BUN/Creatinine Ratio 10 L Glucose 96 Calculated Osmolality 283 Calcium 7.9 L Corrected Calcium 8.1 L Phosphorus 6.1 H Magnesium 2.1 Total Bilirubin 0.3 AST 23 ALT 22 Alkaline Phosphatase 80 Total Protein 7.2 Albumin 3.7 D Globulin 3.5 Albumin/Globulin Ratio 1.1 L Triglycerides 152 H ABG Interpretation ABG results: 08/06/25 08/07/25 11:42 04:24 ABG pH 7.41 7.42 ABG pCO2 41 38 ABG pO2 96 71 L D ABG HCO3 26 25 ABG O2 Saturation 98 95 ABG Base Excess 1 0 Quality Measures Quality Measures none Assessment & Plan Assessment Current Active Medications: Generic Name Dose Route Start Last Admin Trade Name Freq PRN Reason Stop Dose Admin Acetaminophen 650 mg 08/06/25 15:58 08/14/25 19:56 Acetaminophen 325 Mg Tablet PO 09/05/25 15:57 650 mg Q6H PRN Administration Fever >100.4 or pain 1-3 Amiodarone HCl 200 mg 08/07/25 09:35 08/15/25 21:18 Amiodarone Hcl 200 Mg Tablet PO 09/06/25 09:34 200 mg BID RIANNA Administration Dextrose 25 ml 08/06/25 16:07 08/08/25 11:38 Dextrose 50%-Water Inj 50 Ml Syringe IV 09/05/25 16:06 25 ml Q15MIN PRN Administration BG 50-70 responsive npo pt Dextrose 50 ml 08/06/25 16:07 Dextrose 50%-Water Inj 50 Ml Syringe IV 09/05/25 16:06 Q15MIN PRN BG <50 OR BG <70 & pt unresponsive Docusate Sodium 100 mg 08/07/25 09:00 08/15/25 09:06 Docusate Sod 100 Mg Capsule PO 09/06/25 08:59 100 mg QDAY RIANNA Administration Protocol Glucagon 1 mg 08/06/25 16:07 Glucagon Inj 1 Mg Vial IM Q15MIN PRN BG <70, and no IV access Heparin Sodium (Porcine) 5,000 unit 08/06/25 16:15 08/09/25 21:37 Heparin Sod Inj 5000 Unit/Ml Vial SC 08/20/25 16:14 5,000 unit On Hold: 08/10/25 00:00 Q8HR RIANNA Administration Heparin Sodium (Porcine) 2,200 unit 08/11/25 14:27 08/13/25 12:57 Heparin Sod Inj 1000 Unit/Ml Vial 10 Ml INDWELLCAT 08/25/25 14:26 2,200 unit PRN PRN Administration DIALYSIS Albumin Human 25 gm in 100 mls @ 0 mls/hr 08/11/25 11:52 08/11/25 11:52 Albuminex 25% Ivpb IV 300 mls/hr Q30MIN PRN Administration To maintain SBP>90 Per Protocol Levothyroxine Sodium 50 mcg 08/08/25 06:00 08/16/25 05:18 Levothyroxine Sodium 25 Mcg Tablet PO 09/07/25 05:59 50 mcg ACBR RIANNA Administration Midodrine 10 mg 08/07/25 09:40 08/16/25 05:18 Midodrine 5 Mg Tablet PO 09/06/25 09:39 10 mg Q6HR RIANNA Administration Ondansetron HCl 4 mg 08/06/25 15:58 08/13/25 22:22 Ondansetron Inj 2 Mg/Ml Inj 2 Ml IVP 09/05/25 15:57 4 mg Q6H PRN Administration NAUSEA OR VOMITING Protocol Pharmacy Consult 1 each 08/11/25 09:00 Vancomycin Pharmacy To Dose 1 Each Each IV 09/10/25 08:59 QDAY PRN CONSULT Pharmacy Consult 1 each 08/11/25 08:54 Pharmacy Renal Dose Adjustment 1 Ea XX 09/10/25 08:53 PRN PRN CONSULT Vitamin B Complex/Vit C/Folic Acid 1 tab 08/08/25 16:30 08/15/25 09:06 Vit B12/Vit C/Fa (Nephrovite) Tablet PO 09/07/25 16:29 1 tab QDAY RIANNA Administration Plan Assessment and Plan: Summary: Ms. Elizondo is a 64-year-old female with past medical history of CVA, atrial fibrillation on Eliquis, HFrEF EF 15 to 20%, dilated cardiomyopathy, ESRD on hemodialysis Friday//Friday, hypothyroidism, iron deficiency anemia, nephrolithiasis and mood disorder who presented to [facility] emergency department on 08/06/2025, patient found to be lethargic and hypotensive with fever and was admitted to intensive care unit for distributive shock management. Further hospitalization course patient found to have infected dialysis catheter which was removed by interventional radiology, patient had temporary dialysis catheter placed. Post catheter exchange patient continues to be bacteremic and cardiology service consulted for JONES to rule out endocarditis. #Bacteremia #Rule out endocarditis Patient continues to have bacteremia post removal of dialysis catheter which was thought to be infected. Temporary dialysis catheter placed, latest blood cultures still positive for GPC. Infectious diseases following, per ID patient's likely source thought to be dialysis catheter. However primary team consulted for JONES to rule out endocarditis. Please clarify with infectious disease regarding the need for JONES Transthoracic echocardiogram reviewed, no major changes in valvular gradients compared to previous echocardiograms, low suspicion of bacterial endocarditis. Antibiotics per ID recommendations, management per primary team Patient was kept NPO but she is refused JONES on 08/12. Patient continues to refuse JONES. Patient was informed that JONES was recommended to rule out endocarditis as she has MRSA bacteremia. Patient was told that she will have to do 4-6 weeks of antibiotics if she does not have the JONES and she agrees. Patient wants only antibiotics, antibiotics duration as per ID. #Heart failure with severely reduced ejection fraction, EF 15 to 20% #Dilated cardiomyopathy Patient has history of severely reduced ejection fraction heart failure. Has been seen in the past, well-known to practice. Recommended GDMT in the past however not noted on patient's med reconciliation. Patient has significant hypotension on midodrine, unable to tolerate GDMT Transthoracic echo 08/07/2025 shows 1. Left ventricle size is moderately enlarged and severe global hypokenesis and severe systolic dysfunction.. Estimated ejection fraction is 15-20%. 2. Right ventricle chamber size is normal and systolic function is mildly reduced. Estimated RVSP is 35-40 mmHg. Mild to moderate pulmonary hypertension. 3. Moderate MR, mild to moderate TR and trace AI. 4. The left atrium is severely enlarged. The right atrium is mildly enlarged. 5. Not well visualized IVC with estimated RA pressure 8 mmHg. Recommendations: - Continue hemodialysis to maintain euvolemia status - Introduce GDMT as tolerated, continue midodrine #Atrial fibrillation, by history Patient has history of atrial fibrillation on Eliquis CHADSVASC score 4, 4.8% stroke risk per year HASBLED 3 EKG 08/05/2025 shows A-fib with RVR ? Continue amiodarone 200 mg p.o. twice daily ? We recommend heparin gtt. if no contraindications and procedures are planned and Eliquis is contraindicated. ? Keep potassium greater than 4 and magnesium greater than 2 at all times #NSTEMI type II secondary to demand ischemia Patient denies any chest pain troponin initially elevated in setting of distributive shock #ESRD on hemodialysis #Electrolyte abnormalities #Hyperphosphatemia #Pressure ulcers #Hypothyroidism #History of CVA, residual left-sided hemiplegia ?Management per primary team Thank you for the consult and allowing to participate in the care of the patient. Cardiology will continue to follow. Case discussed with Attending Physician Dr. Bishnu Williamson MD Internal Medicine PGY-2 Disclaimer: This note was dictated by speech recognition. Minor errors in amusement equipment operator may be present due to voice recognition software. Attending Provider Attestation/Addendum I have personally seen and examined the patient separately on the above date of service and discussed the plan of care with the resident. I reviewed the resident Dr. Kimani Williamson consultation progress note and agree with the resident findings and plan in the note above and have also edited the documentation to reflect my findings and plan. Bishnu Barcenas M.D. Interventional Cardiology
[2025-08-16] MEDS: AMIODARONE HCL 200 MG TABLET PO ×2 (09:10→21:29)
[2025-08-16] MEDS: ACETAMINOPHEN 325 MG TABLET 650 MG PO ×2 (09:10→16:26)
[2025-08-16] MEDS: DOCUSATE SOD 100 MG CAPSULE PO (09:11)
[2025-08-16] MEDS: ONDANSETRON INJ 2 MG/ML INJ 2 ML 4 MG IVP (09:11)
[2025-08-16] MEDS: VIT B12/Vit C/FA (Nephrovite) TABLET 1 TAB PO (09:12)
[2025-08-16 09:43] LABS: INR 1.1 (0.9-1.3); Partial Thromboplastin Time 29.1 Seconds (22.0-36.0); Prothrombin Time 11.8 Seconds (9.0-12.2)
--- NOTE | 2025-08-16 11:43 | PC.NURSE ---
Verified with Dr. Kimble again because labor and delivery nurse called again to ask if pt will be needing dialysis cathetar, Per pt needs to have negative blood cultures for 48h before insertion. Its only been 24h. No cath insertion for today
--- NOTE | 2025-08-16 14:00 | PC.SS ---
Rounding Note: Patient is not medically cleared for mental health evaluation.
[2025-08-16 14:07] LABS: Basophils # (Auto) 0.1 Thou/mm3 (0.0-0.2); Basophils % (Auto) 1 % (0-2.5); Eosinophils # (Auto) 0.1 Thou/mm3 (0.0-0.5); Eosinophils % (Auto) 0 % (0-10); Hematocrit 32.2 % (36.0-46.0); Hemoglobin 10.1 g/dL (12.0-16.0); Immature Granulocytes Auto 0.15 Thou/mm3 (0.00-0.00); Lymphocytes # (Auto) 2.6 Thou/mm3 (1.0-4.8); Lymphocytes % (Auto) 13 % (10-50); Mean Corpuscular HGB Conc 31.4 g/dl (31.0-37.0); Mean Corpuscular Hemoglobin 30.3 pg (25.0-35.0); Mean Corpuscular Volume 97 fL (80-100); Monocytes # (Auto) 1.1 Thou/mm3 (0.0-0.8); Monocytes % (Auto) 6 % (0-12); Neutrophils # (Auto) 15.3 Thou/mm3 (1.8-7.7); Neutrophils % (Auto) 79 % (37-80); Nucleated Red Blood Cell # 0.00 Thou/mm3 (0.00-0.00); Nucleated Red Blood Cell % 0 /100 WBC (0); Platelet Count 369 Thou/mm3 (140-440); RDW Standard Deviation 52.7 fL (36.4-46.3); Red Blood Count 3.33 Miln/mm3 (4.00-5.20); White Blood Count 19.2 Thou/mm3 (3.6-11.0)
--- NOTE | 2025-08-16 15:06 | PC.CC ---
BARBARA Ramsay: Spoke with Dr. Kimble ext [phone] regarding concerns with patient making suicidal statements: According to Dr. Kimble he did not feel that patient needs to be evaluated due to patient medical situation. Patient had a stroke and is not able to to care for self. According to ZIA Erazo patient is at [facility]. Patient doctor did not hear patient make statements but has made them to staff. Patient doctor reports that patient is not medically cleared. BARBARA Ramsay: spoke with Celia patient bedside nurse and patient is denying everything: Patient was upset because she did not know why she needed a sitter. Patient is not curently medically cleared.
--- NOTE | 2025-08-16 15:11 | ESPR_ITS ---
Documentation for date of: 08/16/25 Subjective Subjective Interval history: Patient seen and examined at bedside; no acute events overnight. Bcx negative at 24hrs; if negative tomorrow (at 48hrs), will place permanent dialysis catheter tomorrow and perform dialysis. Exam Vital Signs Temp Pulse Resp BP Pulse Ox O2 Del Method O2 Flow Rate 97.0 F 70 18 101/67 97 Nasal Cannula 3 08/16/25 12:00 08/16/25 13:45 08/16/25 12:00 08/16/25 13:45 08/16/25 12:00 08/16/25 12:00 08/16/25 12:00 Narrative Exam GENERAL: A&Ox3, agitated HEENT: mucous membranes moist, bilateral sclera anicteric CARDIOVASCULAR: irregularly irregular, S1/S2 present, no murmurs appreciated PULMONARY: clear to auscultation bilaterally, no rales/rhonchi/wheezes ABDOMINAL: soft, non-tender, non-distended, no rebound/guarding, bowel sounds present EXTREMITIES: 1+ BLE pitting edema SKIN: warm and dry, intact, no rashes NEURO: CN II-XII grossly intact, alert, following commands, L sided motor deficits, hand and feet flexed sensation intact, no neglect Objective Labs 08/17/25 05:40 08/17/25 05:40 Labs: Laboratory Results - last 24 hr 08/16/25 08/16/25 05:25 13:50 WBC 22.2 H 19.2 H RBC 3.02 L 3.33 L Hgb 9.3 L 10.1 L Hct 28.9 L 32.2 L MCV 96 97 MCH 30.8 30.3 MCHC 32.2 31.4 RDW Std Deviation 53.1 H 52.7 H Plt Count 358 369 Neut % (Auto) 80 79 Lymph % (Auto) 13 13 [place] % (Auto) 6 6 Eos % (Auto) 0 0 Baso % (Auto) 0 1 Neut # (Auto) 17.8 H 15.3 H Lymph # (Auto) 2.9 2.6 [place] # (Auto) 1.2 H 1.1 H Eos # (Auto) 0.0 0.1 Baso # (Auto) 0.1 0.1 Immature Gran # (Auto) 0.24 H 0.15 H Absolute Nucleated RBC 0.00 0.00 Immature Gran % 1 H 1 H Nucleated RBC % 0 0 PT 11.8 INR 1.1 APTT 29.1 Sodium 135 L Potassium 4.6 Chloride 96 L Carbon Dioxide 21.5 Anion Gap 18 H BUN 51 H Creatinine 5.1 H* D Estim Creat Clear Calc 14.4 L eGFR 9 L* BUN/Creatinine Ratio 10 L Glucose 96 Calculated Osmolality 283 Calcium 7.9 L Corrected Calcium 8.1 L Phosphorus 6.1 H Magnesium 2.1 Total Bilirubin 0.3 AST 23 ALT 22 Alkaline Phosphatase 80 Total Protein 7.2 Albumin 3.7 D Globulin 3.5 Albumin/Globulin Ratio 1.1 L Triglycerides 152 H ABG Interpretation ABG results: 08/06/25 08/07/25 11:42 04:24 ABG pH 7.41 7.42 ABG pCO2 41 38 ABG pO2 96 71 L D ABG HCO3 26 25 ABG O2 Saturation 98 95 ABG Base Excess 1 0 Quality Measures Quality Measures none Assessment & Plan Assessment Current Active Medications: Generic Name Dose Route Start Last Admin Trade Name Freq PRN Reason Stop Dose Admin Acetaminophen 650 mg 08/06/25 15:58 08/16/25 09:10 Acetaminophen 325 Mg Tablet PO 09/05/25 15:57 650 mg Q6H PRN Administration Fever >100.4 or pain 1-3 Amiodarone HCl 200 mg 08/07/25 09:35 08/16/25 09:10 Amiodarone Hcl 200 Mg Tablet PO 09/06/25 09:34 200 mg BID RIANNA Administration Dextrose 25 ml 08/06/25 16:07 08/08/25 11:38 Dextrose 50%-Water Inj 50 Ml Syringe IV 09/05/25 16:06 25 ml Q15MIN PRN Administration BG 50-70 responsive npo pt Dextrose 50 ml 08/06/25 16:07 Dextrose 50%-Water Inj 50 Ml Syringe IV 09/05/25 16:06 Q15MIN PRN BG <50 OR BG <70 & pt unresponsive Docusate Sodium 100 mg 08/07/25 09:00 08/16/25 09:11 Docusate Sod 100 Mg Capsule PO 09/06/25 08:59 100 mg QDAY RIANNA Administration Protocol Glucagon 1 mg 08/06/25 16:07 Glucagon Inj 1 Mg Vial IM Q15MIN PRN BG <70, and no IV access Heparin Sodium (Porcine) 5,000 unit 08/06/25 16:15 08/09/25 21:37 Heparin Sod Inj 5000 Unit/Ml Vial SC 08/20/25 16:14 5,000 unit On Hold: 08/10/25 00:00 Q8HR RIANNA Administration Heparin Sodium (Porcine) 2,200 unit 08/11/25 14:27 08/13/25 12:57 Heparin Sod Inj 1000 Unit/Ml Vial 10 Ml INDWELLCAT 08/25/25 14:26 2,200 unit PRN PRN Administration DIALYSIS Albumin Human 25 gm in 100 mls @ 0 mls/hr 08/11/25 11:52 08/11/25 11:52 Albuminex 25% Ivpb IV 300 mls/hr Q30MIN PRN Administration To maintain SBP>90 Per Protocol Levothyroxine Sodium 50 mcg 08/08/25 06:00 08/16/25 05:18 Levothyroxine Sodium 25 Mcg Tablet PO 09/07/25 05:59 50 mcg ACBR RIANNA Administration Midodrine 10 mg 08/07/25 09:40 08/16/25 13:45 Midodrine 5 Mg Tablet PO 09/06/25 09:39 10 mg Q6HR RIANNA Administration Ondansetron HCl 4 mg 08/06/25 15:58 08/16/25 09:11 Ondansetron Inj 2 Mg/Ml Inj 2 Ml IVP 09/05/25 15:57 4 mg Q6H PRN Administration NAUSEA OR VOMITING Protocol Pharmacy Consult 1 each 08/11/25 09:00 Vancomycin Pharmacy To Dose 1 Each Each IV 09/10/25 08:59 QDAY PRN CONSULT Pharmacy Consult 1 each 08/11/25 08:54 Pharmacy Renal Dose Adjustment 1 Ea XX 09/10/25 08:53 PRN PRN CONSULT Vitamin B Complex/Vit C/Folic Acid 1 tab 08/08/25 16:30 08/16/25 09:12 Vit B12/Vit C/Fa (Nephrovite) Tablet PO 09/07/25 16:29 1 tab QDAY RIANNA Administration Plan 64-year-old female with PMH of 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 Landry, and history of staghorn calculi, was transferred to ED from a nursing facility with lethargy, hypotension, and fever. Patient admitted to ICU for sepsis workup and downgraded to floors on 08/07/25. #Septic shock (resolving) secondary to #Sepsis caused by #Dialysis catheter infection and/or #Hospital-associated pneumonia #NSTEMI type II 2/2 blood cultures 08/06/25 positive for GPCs 08/06/25 1/2 BCx + MRSA 08/06/25 UCx pending 08/06/25- Troponin peaked 1.423, then fell to 1.175 08/07/25 1/2 BCx +MRSA 08/08/25 2/2 BCx MRSA in 2/; catheter tip culture + MRSA 08/09/25 2/2 BCx +same MRSA as on 08/08 08/11 2/2 Bcx +MRSA 08/13 2/2 Bcx +GPC 1/2 +MRSA 1/2 08/15 Bcx 1/2 +GPC WBC 19.2 today Plan: IV vancomycin Remove old dialysis catheter 08/08/25; temporary catheter placed 08/10/25; Plan to place permanent catheter when 48 hours of negative cultures achieved. Removed temporary catheter 08/13/25 Follow up blood cx ID consulted, thank you for recs- vancomycin alone, B12 tablet daily, catheter needs 48h negative cultures Will get JONES to check for cardiac vegetations Obtain repeat BCx 08/17 Discussed with cardiology on 08/12: Since we still have not heard back from ID, will pursue JONES. However, patient declined the procedure just before she went downstairs for it #End-stage renal disease on dialysis (T/T/F) #Electrolyte abnormalities #Hyperphosphatemia On line holiday Plan: Hemodialysis (T/T/F) Avoid nephrotoxic agents, renally dose medicines Talk with Dr. Landry regarding dialysis line placement in AM Give midodrine after dialysis if BP low #Agitation #Suicidal ideation Patient was very agitated today wanting to go home AMA; expressed suicidal ideation to myself and attending. Plan: Placed on 1 to 1 sitter #A-fib [id number]: 5 Patient has history of A-fib. Plan: ? Monitor EKG - Amiodarone 200 BID - K > 4, Mg > 2 #HFrEF (15-20%), stable Longstanding hx. And previously patient has refused cardiac cath, continues to refuse. 08-07-25 Echo shows LV size moderately enlarged and severe global hypokinesis and severe systolic dysfunction estimated EF 15 to 20%. RV chamber size normal systolic function mildly reduced, RVSP 35 to 40 mmHg, mild to moderate pulmonary hypertension, moderate MR, mild to moderate TR and trace AI, LA severely enlarged, RA mildly enlarged Plan: ? Caution with fluids - Keep K>4 and Mg>2 at all times #Pressure ulcers Sacral and decubitous ulcer and lateral leg ulcers. Do not appear cellulitic, more granulotamous. Ankle has a purulent base with oozing without cellultic changes. Plan: Continue to monitor, wound care referral placed #Hypothyroidism Patient has history of hypothyroidism. Plan: Restart home levothyroxine 50mcg #Hx of CVA, residual L-sided hemiplegia Stable Disposition: Med-Surg DVT prophylaxis: heparin 5000u q8h GI prophylaxis: none Diet: Renal, 1L fluid restriction Lines: PIV CODE STATUS: Full code This case was discussed with my attending physician, Dr. Covarrubias, and senior resident, Dr. Freeman. Rom John Echolsmarisa, PGY1 Senior Resident Attestation: Patient's blood culture has been negative for 24 hours, and if by tomorrow morning that will be 48 hours, which is negative, we will plan for hemodialysis catheter placement and discharge patient back to her facility. I discussed with and supervised the leadership program internship physician involved in the care of this patient. I personally saw and examined the patient and discussed the assessment and plan with the entire medicine team, including my attending. I agree with the assessment and plan as documented above. Lucian Freeman MD PGY3 Internal Medicine Attending Provider Attestation/Addendum I have discussed and was present for the essential components of the history, physical examination, diagnosis, and treatment plan with the resident. I agree with the patient's care as documented by the resident and amended herein by me. Iam Covarrubias DO. Although this document has been carefully reviewed, there may still be some phonetic and other typographical errors. These errors are purely grammatical due to imperfections in the software program and should not be construed in any way to compromise the substance of the patient's medical care during this visit. Patient seen and evaluated this AM. No acute events overnight, BP 92/65, patient on room air, SpO2 92%, patient afebrile overnight. Significant labs include a downtrending WBC 19.2, hemoglobin stable at 10.1, sodium 135, potassium 4.6, chloride 96, anion gap elevated at 18, related to renal dysfunction, BUN 51, creatinine 5.1. Repeat chest x-ray today demonstrated moderate vascular congestion and mild bilateral pneumonia. Initial blood cultures on 08/06 demonstrated methicillin-resistant Staph aureus, the last set of cultures drawn on 08/15 are demonstrating GPC from the aerobic bottle of 1 set for now. Patient presently on vancomycin which we will continue, infectious disease consulted, appreciate recommendations. Patient denied MRI spine and JONES. Appreciate specialist recommendations, possible reinsertion of her hemodialysis catheter, At least a temporary dialysis catheter, tomorrow pending infectious disease recommendations. Nephrology also consulted, appreciate recommendation
[2025-08-17] VITALS (34 sets, daily range): BP systolic 85–150; BP diastolic 36–79; PULSE 60–116; RESP 15–99; TEMP 35.8–37.2; O2SAT 92–99
[2025-08-17] MEDS: MIDODRINE 5 MG TABLET 10 MG PO ×5 (00:29→23:47)
[2025-08-17] MEDS: LEVOTHYROXINE SODIUM 25 MCG TABLET 50 MCG PO (05:31)
--- NOTE | 2025-08-17 05:54 | PC.NURSE ---
Dr. Rich was made aware that pt is NPO for HD cath placement, okayed to give 6 am po meds with a sip of water.
[2025-08-17 06:10] LABS: Basophils # (Auto) 0.1 Thou/mm3 (0.0-0.2); Basophils % (Auto) 0 % (0-2.5); Eosinophils # (Auto) 0.1 Thou/mm3 (0.0-0.5); Eosinophils % (Auto) 1 % (0-10); Hematocrit 28.6 % (36.0-46.0); Hemoglobin 9.1 g/dL (12.0-16.0); Immature Granulocytes Auto 0.16 Thou/mm3 (0.00-0.00); Lymphocytes # (Auto) 1.5 Thou/mm3 (1.0-4.8); Lymphocytes % (Auto) 8 % (10-50); Mean Corpuscular HGB Conc 31.8 g/dl (31.0-37.0); Mean Corpuscular Hemoglobin 30.1 pg (25.0-35.0); Mean Corpuscular Volume 95 fL (80-100); Monocytes # (Auto) 0.9 Thou/mm3 (0.0-0.8); Monocytes % (Auto) 5 % (0-12); Neutrophils # (Auto) 16.6 Thou/mm3 (1.8-7.7); Neutrophils % (Auto) 86 % (37-80); Nucleated Red Blood Cell # 0.00 Thou/mm3 (0.00-0.00); Nucleated Red Blood Cell % 0 /100 WBC (0); Platelet Count 329 Thou/mm3 (140-440); RDW Standard Deviation 51.8 fL (36.4-46.3); Red Blood Count 3.02 Miln/mm3 (4.00-5.20); White Blood Count 19.4 Thou/mm3 (3.6-11.0)
[2025-08-17 06:46] LABS: Alanine Aminotransferase 19 U/L (10-49); Albumin, Serum 3.6 gm/dL (3.4-4.8); Albumin/Globulin Ratio 1.1 (1.2-2.2); Alkaline Phosphatase 83 U/L (46-116); Anion Gap 21 (7-16); Aspartate Amino Transferase 16 U/L (0-34); BUN/Creatinine Ratio 11 Ratio (12-20); Bilirubin,Total 0.3 mg/dL (0.3-1.2); Blood Urea Nitrogen 63 mg/dL (9-23); Calcium 8.2 mg/dL (8.3-10.6); Calcium (Corrected) 8.5 mg/dL (8.5-10.1); Carbon Dioxide 20.2 mMol/L (20.0-31.0); Chloride 97 mMol/L (98-107); Creatinine (Component) 6.0 mg/dL (0.6-1.3); Estimated Creatinine Clearance 12.5 mL/min (>60); Globulin 3.4 gm/dL (2.3-3.5); Glucose 130 mg/dL (74-106); Osmolality,Calculated 295 (275-295); Potassium 4.5 mMol/L (3.4-5.1); Sodium 138 mMol/L (136-145); Total Protein 7.0 gm/dL (5.7-8.2); Vancomycin,Random 30.5 mcg/mL; eGFR 7 See Note
--- NOTE | 2025-08-17 07:39 | ESPR_ITS ---
Subjective Subjective Interval history: no mary so longer rx advised if this am's bc are pos then get some more the following day Exam Vital Signs Temp Pulse Resp BP Pulse Ox O2 Del Method O2 Flow Rate 98.9 F 78 18 97/66 99 Room Air 3 08/17/25 04:00 08/17/25 05:31 08/17/25 04:00 08/17/25 05:31 08/17/25 04:00 08/17/25 04:00 08/17/25 02:45 Narrative Exam limited eval Objective - Internal Medicine Labs 08/17/25 05:40 08/17/25 05:40 Labs: Laboratory Results - last 24 hr 08/16/25 08/16/25 08/17/25 05:25 13:50 05:40 WBC 19.2 H 19.4 H RBC 3.33 L 3.02 L Hgb 10.1 L 9.1 L Hct 32.2 L 28.6 L MCV 97 95 MCH 30.3 30.1 MCHC 31.4 31.8 RDW Std Deviation 52.7 H 51.8 H Plt Count 369 329 D Neut % (Auto) 79 86 H Lymph % (Auto) 13 8 L [place] % (Auto) 6 5 Eos % (Auto) 0 1 Baso % (Auto) 1 0 Neut # (Auto) 15.3 H 16.6 H Lymph # (Auto) 2.6 1.5 [place] # (Auto) 1.1 H 0.9 H Eos # (Auto) 0.1 0.1 Baso # (Auto) 0.1 0.1 Immature Gran # (Auto) 0.15 H 0.16 H Absolute Nucleated RBC 0.00 0.00 Immature Gran % 1 H 1 H Nucleated RBC % 0 0 PT 11.8 INR 1.1 APTT 29.1 Sodium 138 Potassium 4.5 Chloride 97 L Carbon Dioxide 20.2 Anion Gap 21 H BUN 63 H Creatinine 6.0 H* D Estim Creat Clear Calc 12.5 L eGFR 7 L* BUN/Creatinine Ratio 11 L Glucose 130 H Calculated Osmolality 295 Calcium 8.2 L Corrected Calcium 8.5 Total Bilirubin 0.3 AST 16 ALT 19 Alkaline Phosphatase 83 Total Protein 7.0 Albumin 3.6 Globulin 3.4 Albumin/Globulin Ratio 1.1 L Random Vancomycin 30.5 ABG Interpretation ABG results: 08/06/25 08/07/25 11:42 04:24 ABG pH 7.41 7.42 ABG pCO2 41 38 ABG pO2 96 71 L D ABG HCO3 26 25 ABG O2 Saturation 98 95 ABG Base Excess 1 0 Assessment & Plan A&P Narrative bacteremia mrsa ckd5. off hd temporarily need neg bc at 48hr to proceed with tdc. temp ok but if bc stay pos, may need mary if cardio can do it vs prolonged rx with hd. if bc clear , then with no mary, can finish rx 6 weeks from first neg bc will see again prn Time Spent With Patient Time: Total time spent is greater than 50% in coordination of care (as documented) at patient's floor/unit and/or counseling patient:
[2025-08-17 08:34] LABS: Magnesium 2.3 mg/dL (1.6-2.6); Phosphorous 7.5 mg/dL (2.4-5.1)
[2025-08-17] MEDS: DOCUSATE SOD 100 MG CAPSULE PO (09:12)
[2025-08-17] MEDS: AMIODARONE HCL 200 MG TABLET PO ×2 (09:12→21:18)
[2025-08-17] MEDS: VIT B12/Vit C/FA (Nephrovite) TABLET 1 TAB PO (09:12)
--- NOTE | 2025-08-17 09:14 | PC.SS ---
Follow up note: Temporary dialysis cath placed. Blood cultures positive. On IV antibiotic. Pt is from [facility].
--- NOTE | 2025-08-17 10:17 | PD.RESPRO ---
Documentation for date of: 08/17/25 Subjective Subjective Interval history: Patient seen and examined at bedside; no acute events overnight. Had temporary dialysis catheter placed today; will take out tomorrow. Exam Vital Signs Temp Pulse Resp BP Pulse Ox O2 Del Method O2 Flow Rate 97.1 F 68 18 111/79 99 Room Air 3 08/17/25 08:00 08/17/25 09:12 08/17/25 08:00 08/17/25 09:12 08/17/25 08:00 08/17/25 08:00 08/17/25 08:00 Narrative Exam GENERAL: A&Ox3 HEENT: mucous membranes moist, bilateral sclera anicteric CARDIOVASCULAR: irregularly irregular, S1/S2 present, no murmurs appreciated PULMONARY: clear to auscultation bilaterally, no rales/rhonchi/wheezes ABDOMINAL: soft, non-tender, non-distended, no rebound/guarding, bowel sounds present EXTREMITIES: 1+ BLE pitting edema SKIN: warm and dry, intact, no rashes NEURO: CN II-XII grossly intact, alert, following commands, L sided motor deficits, hand and feet flexed sensation intact, no neglect Objective Labs 08/17/25 05:40 08/17/25 05:40 Labs: Laboratory Results - last 24 hr 08/16/25 08/17/25 13:50 05:40 WBC 19.2 H 19.4 H RBC 3.33 L 3.02 L Hgb 10.1 L 9.1 L Hct 32.2 L 28.6 L MCV 97 95 MCH 30.3 30.1 MCHC 31.4 31.8 RDW Std Deviation 52.7 H 51.8 H Plt Count 369 329 D Neut % (Auto) 79 86 H Lymph % (Auto) [address] [place] % (Auto) 6 5 Eos % (Auto) 0 1 Baso % (Auto) 1 0 Neut # (Auto) 15.3 H 16.6 H Lymph # (Auto) 2.[address] [place] # (Auto) 1.1 H 0.9 H Eos # (Auto) 0.1 0.1 Baso # (Auto) 0.1 0.1 Immature Gran # (Auto) 0.15 H 0.16 H Absolute Nucleated RBC 0.00 0.00 Immature Gran % 1 H 1 H Nucleated RBC % 0 0 Sodium 138 Potassium 4.5 Chloride 97 L Carbon Dioxide 20.2 Anion Gap 21 H BUN 63 H Creatinine 6.0 H* D Estim Creat Clear Calc 12.5 L eGFR 7 L* BUN/Creatinine Ratio 11 L Glucose 130 H Calculated Osmolality 295 Calcium 8.2 L Corrected Calcium 8.5 Phosphorus 7.5 H Magnesium 2.3 Total Bilirubin 0.3 AST 16 ALT 19 Alkaline Phosphatase 83 Total Protein 7.0 Albumin 3.6 Globulin 3.4 Albumin/Globulin Ratio 1.1 L Random Vancomycin 30.5 ABG Interpretation ABG results: 08/06/25 08/07/25 11:42 04:24 ABG pH 7.41 7.42 ABG pCO2 41 38 ABG pO2 96 71 L D ABG HCO3 26 25 ABG O2 Saturation 98 95 ABG Base Excess 1 0 Quality Measures Quality Measures none Assessment & Plan Assessment Current Active Medications: Generic Name Dose Route Start Last Admin Trade Name Freq PRN Reason Stop Dose Admin Acetaminophen 650 mg 08/06/25 15:58 08/16/25 16:26 Acetaminophen 325 Mg Tablet PO 09/05/25 15:57 650 mg Q6H PRN Administration Fever >100.4 or pain 1-3 Amiodarone HCl 200 mg 08/07/25 09:35 08/17/25 09:12 Amiodarone Hcl 200 Mg Tablet PO 09/06/25 09:34 200 mg BID RIANNA Administration Dextrose 25 ml 08/06/25 16:07 08/08/25 11:38 Dextrose 50%-Water Inj 50 Ml Syringe IV 09/05/25 16:06 25 ml Q15MIN PRN Administration BG 50-70 responsive npo pt Dextrose 50 ml 08/06/25 16:07 Dextrose 50%-Water Inj 50 Ml Syringe IV 09/05/25 16:06 Q15MIN PRN BG <50 OR BG <70 & pt unresponsive Docusate Sodium 100 mg 08/07/25 09:00 08/17/25 09:12 Docusate Sod 100 Mg Capsule PO 09/06/25 08:59 100 mg QDAY RIANNA Administration Protocol Glucagon 1 mg 08/06/25 16:07 Glucagon Inj 1 Mg Vial IM Q15MIN PRN BG <70, and no IV access Heparin Sodium (Porcine) 5,000 unit 08/06/25 16:15 08/09/25 21:37 Heparin Sod Inj 5000 Unit/Ml Vial SC 08/20/25 16:14 5,000 unit On Hold: 08/10/25 00:00 Q8HR RIANNA Administration Heparin Sodium (Porcine) 2,200 unit 08/11/25 14:27 08/13/25 12:57 Heparin Sod Inj 1000 Unit/Ml Vial 10 Ml INDWELLCAT 08/25/25 14:26 2,200 unit PRN PRN Administration DIALYSIS Albumin Human 25 gm in 100 mls @ 0 mls/hr 08/11/25 11:52 08/11/25 11:52 Albuminex 25% Ivpb IV 300 mls/hr Q30MIN PRN Administration To maintain SBP>90 Per Protocol Levothyroxine Sodium 50 mcg 08/08/25 06:00 08/17/25 05:31 Levothyroxine Sodium 25 Mcg Tablet PO 09/07/25 05:59 50 mcg ACBR RIANNA Administration Midodrine 10 mg 08/07/25 09:40 08/17/25 05:31 Midodrine 5 Mg Tablet PO 09/06/25 09:39 10 mg Q6HR RIANNA Administration Ondansetron HCl 4 mg 08/06/25 15:58 08/16/25 09:11 Ondansetron Inj 2 Mg/Ml Inj 2 Ml IVP 09/05/25 15:57 4 mg Q6H PRN Administration NAUSEA OR VOMITING Protocol Pharmacy Consult 1 each 08/11/25 09:00 Vancomycin Pharmacy To Dose 1 Each Each IV 09/10/25 08:59 QDAY PRN CONSULT Pharmacy Consult 1 each 08/11/25 08:54 Pharmacy Renal Dose Adjustment 1 Ea XX 09/10/25 08:53 PRN PRN CONSULT Vitamin B Complex/Vit C/Folic Acid 1 tab 08/08/25 16:30 08/17/25 09:12 Vit B12/Vit C/Fa (Nephrovite) Tablet PO 09/07/25 16:29 1 tab QDAY RIANNA Administration Plan 64-year-old female with PMH of 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 Landry, and history of staghorn calculi, was transferred to ED from a nursing facility with lethargy, hypotension, and fever. Patient admitted to ICU for sepsis workup and downgraded to floors on 08/07/25. #Septic shock - Resolved #DANO secondary to dialysis catheter (MRSA) #Hospital-associated pneumonia #NSTEMI type II 2/ blood cultures 08/06/25 positive for GPCs 08/06/25 1/2 BCx + MRSA 08/06/25 UCx pending 08/06/25- Troponin peaked 1.423, then fell to 1.175 08/07/25 1/2 BCx +MRSA 08/08/25 2/2 BCx MRSA in 2/2; catheter tip culture + MRSA 08/09/25 2/2 BCx +same MRSA as on 08/08 08/11 2/2 Bcx +MRSA 08/13 10/03 Bcx +GPC 1/2 +MRSA 108/15 Bcx 1/2 +GPC WBC 19.4 today Plan: IV vancomycin Remove old dialysis catheter 08/08/25; temporary catheter placed 08/10/25; Plan to place permanent catheter when 48 hours of negative cultures achieved. Removed temporary catheter 08/13/25 ID consulted, thank you for recs- vancomycin alone, B12 tablet daily, catheter needs 48h negative cultures Will get JONES to check for cardiac vegetations Obtained repeat BCx 08/17 Discussed with cardiology on 08/12: Since we still have not heard back from ID, will pursue JONES. However, patient declined the procedure just before she went downstairs for it #End-stage renal disease on dialysis (T/T/F) #Electrolyte abnormalities #Hyperphosphatemia Put in temporary catheter today, got hemodialysis, will take out line tomorrow Plan: Hemodialysis (T/T/F) Avoid nephrotoxic agents, renally dose medicines Give midodrine after dialysis if BP low #Agitation #Suicidal ideation Patient was very agitated today wanting to go home AMA; expressed suicidal ideation to myself and attending. Plan: Placed on 1 to 1 sitter #A-fib [id number]: 5 Patient has history of A-fib. Plan: ? Monitor EKG - Amiodarone 200 BID - K > 4, Mg > 2 #HFrEF (15-20%), stable Longstanding hx. And previously patient has refused cardiac cath, continues to refuse. 08-07-25 Echo shows LV size moderately enlarged and severe global hypokinesis and severe systolic dysfunction estimated EF 15 to 20%. RV chamber size normal systolic function mildly reduced, RVSP 35 to 40 mmHg, mild to moderate pulmonary hypertension, moderate MR, mild to moderate TR and trace AI, LA severely enlarged, RA mildly enlarged Plan: ? Caution with fluids - Keep K>4 and Mg>2 at all times #Pressure ulcers Sacral and decubitous ulcer and lateral leg ulcers. Do not appear cellulitic, more granulotamous. Ankle has a purulent base with oozing without cellultic changes. Plan: Continue to monitor, wound care referral placed #Hypothyroidism Patient has history of hypothyroidism. Plan: Restart home levothyroxine 50mcg #Hx of CVA, residual L-sided hemiplegia Stable Disposition: Med-Surg DVT prophylaxis: heparin 5000u q8h GI prophylaxis: none Diet: Renal, 1L fluid restriction Lines: PIV CODE STATUS: Full code This case was discussed with my attending physician, Dr. Covarrubias, and senior resident, Dr. Freeman. Rom Evans, PGY1 Senior Resident Attestation: The patient's blood culture came back again positive for MRSA, and temporarily hemodialysis catheter was placed this morning and patient received hemodialysis. Patient was counseled regarding the need for JONES and MRI of spine to rule out any infection, and patient agreed to proceed with those procedures. Will keep the patient n.p.o. and likely get those procedures done tomorrow. I discussed with and supervised the business analyst intern physician involved in the care of this patient. I personally saw and examined the patient and discussed the assessment and plan with the entire medicine team, including my attending. I agree with the assessment and plan as documented above. Lucian Freeman MD PGY3 Internal Medicine Attending Provider Attestation/Addendum I have discussed and was present for the essential components of the history, physical examination, diagnosis, and treatment plan with the resident. I agree with the patient's care as documented by the resident and amended herein by me. Iam Covarrubias DO. Although this document has been carefully reviewed, there may still be some phonetic and other typographical errors. These errors are purely grammatical due to imperfections in the software program and should not be construed in any way to compromise the substance of the patient's medical care during this visit.
[2025-08-17] MEDS: HEPARIN SOD LOCK SYR 100 UNIT/ML 500 UNIT STFIELD (10:30)
[2025-08-17] MEDS: LIDOCAINE INJ PF 1% 30 ML VIAL 8 ML INFL (10:30)
--- NOTE | 2025-08-17 10:34 | XR_ITS ---
Ultrasound-guided needle placement right internal jugular vein Successful Tri flow catheter insertion, percutaneous Fluoroscopy AP chest, portable, single view. Date and time of procedure: August 16, 2025, 0902 hours Informed consent provided Technique: A timeout was completed verifying correct patient, procedure, site, positioning, and special equipment if applicable. The patient was placed in a dependent position appropriate for dialysis catheter placement based on the vein to be cannulated. The patient's right neck was prepped and draped in sterile fashion. Maximum Sterile Barrier Technique used including cap, mask, sterile gown, sterile gloves, and sterile full body drape. If ultrasound technique used: sterile gel and sterile probe covers. Hand Hygiene performed using proper scrub, soap and water, or alcohol-based hand rub. 1% lidocaine was used to anesthetize the surrounding skin area The [facility] [place] portable apparatus is utilized to confirm patency of the right internal jugular vein Utilizing ultrasonographic guidance successful 21-gauge needle puncture into the right internal jugular vein Ultrasound images were recorded and stored. Vessel micropuncture was performed with 21-gauge needle. 0.18 wire guide is introduced into the vein. 0.18 wire is introduced into the vena cava under fluoroscopy. Tri flow catheter introduced over the wire guidance satisfactory position Good flow going headache no with saying that Damason-P no thing right no the answer is now throat R okay so that could not be a The catheter is sutured in place to the skin and a sterile dressing applied. Perfusion to the extremity distal to the point of catheter insertion is checked and found to be adequate Attending radiologist was present for the entire procedure Estimated blood loss 2 cc. The patient tolerated the procedure well and there were no complications Impression: Successful ultrasound-guided needle placement right internal jugular vein Successful Tri flow catheter insertion, percutaneous Fluoroscopy 0.1-minute radiation dose 0.16 mGy 1 spot fluoroscopic film. AP chest performed at completion procedure demonstrates satisfactory position Tri flow catheter.
--- NOTE | 2025-08-17 12:25 | PD.RESPRO ---
Documentation for date of: 08/17/25 Subjective Subjective Interval history: Patient seen and examined at bedside, scheduled for dialysis catheter placement today Per primary team patient has agreed to JONES, will keep n.p.o. after midnight and will schedule for tomorrow. Continues to remain hypotensive, on midodrine 10 mg p.o. every 6 hours and amiodarone 200 p.o. twice daily. Unable to tolerate GDMT due to chronic hypotension. Needs to follow-up outpatient with boom tender. Exam Vital Signs Temp Pulse Resp BP Pulse Ox O2 Del Method O2 Flow Rate 97.8 F 65 15 104/72 97 Nasal Cannula 2 08/17/25 11:58 08/17/25 11:58 08/17/25 11:58 08/17/25 11:58 08/17/25 11:58 08/17/25 11:58 08/17/25 11:58 Narrative Exam GENERAL: A&Ox3, no acute distress HEENT: mucous membranes moist, bilateral sclera anicteric, dialysis catheter noted. CARDIOVASCULAR: Irregularly irregular, S1/S2 present, no murmurs appreciated PULMONARY: clear to auscultation bilaterally, no rales/rhonchi/wheezes ABDOMINAL: soft, non-tender, non-distended, no rebound/guarding, bowel sounds present EXTREMITIES: trace BLE pitting edema SKIN: warm and dry, intact, no rashes NEURO: CN II-XII grossly intact, alert, following commands, L sided motor deficits, hand and feet flexed sensation intact, no neglect Objective Labs 08/17/25 05:40 08/17/25 05:40 Labs: Laboratory Results - last 24 hr 08/16/25 08/17/25 13:50 05:40 WBC 19.2 H 19.4 H RBC 3.33 L 3.02 L Hgb 10.1 L 9.1 L Hct 32.2 L 28.6 L MCV 97 95 MCH 30.3 30.1 MCHC 31.4 31.8 RDW Std Deviation 52.7 H 51.8 H Plt Count 369 329 D Neut % (Auto) 79 86 H Lymph % (Auto) 13 8 L [place] % (Auto) 6 5 Eos % (Auto) 0 1 Baso % (Auto) 1 0 Neut # (Auto) 15.3 H 16.6 H Lymph # (Auto) 2.6 1.5 [place] # (Auto) 1.1 H 0.9 H Eos # (Auto) 0.1 0.1 Baso # (Auto) 0.1 0.1 Immature Gran # (Auto) 0.15 H 0.16 H Absolute Nucleated RBC 0.00 0.00 Immature Gran % 1 H 1 H Nucleated RBC % 0 0 Sodium 138 Potassium 4.5 Chloride 97 L Carbon Dioxide 20.2 Anion Gap 21 H BUN 63 H Creatinine 6.0 H* D Estim Creat Clear Calc 12.5 L eGFR 7 L* BUN/Creatinine Ratio 11 L Glucose 130 H Calculated Osmolality 295 Calcium 8.2 L Corrected Calcium 8.5 Phosphorus 7.5 H Magnesium 2.3 Total Bilirubin 0.3 AST 16 ALT 19 Alkaline Phosphatase 83 Total Protein 7.0 Albumin 3.6 Globulin 3.4 Albumin/Globulin Ratio 1.1 L Random Vancomycin 30.5 ABG Interpretation ABG results: 08/06/25 08/07/25 11:42 04:24 ABG pH 7.41 7.42 ABG pCO2 41 38 ABG pO2 96 71 L D ABG HCO3 26 25 ABG O2 Saturation 98 95 ABG Base Excess 1 0 Quality Measures Quality Measures none Assessment & Plan Assessment Current Active Medications: Generic Name Dose Route Start Last Admin Trade Name Freq PRN Reason Stop Dose Admin Acetaminophen 650 mg 08/06/25 15:58 08/16/25 16:26 Acetaminophen 325 Mg Tablet PO 09/05/25 15:57 650 mg Q6H PRN Administration Fever >100.4 or pain 1-3 Amiodarone HCl 200 mg 08/07/25 09:35 08/17/25 09:12 Amiodarone Hcl 200 Mg Tablet PO 09/06/25 09:34 200 mg BID RIANNA Administration Dextrose 25 ml 08/06/25 16:07 08/08/25 11:38 Dextrose 50%-Water Inj 50 Ml Syringe IV 09/05/25 16:06 25 ml Q15MIN PRN Administration BG 50-70 responsive npo pt Dextrose 50 ml 08/06/25 16:07 Dextrose 50%-Water Inj 50 Ml Syringe IV 09/05/25 16:06 Q15MIN PRN BG <50 OR BG <70 & pt unresponsive Docusate Sodium 100 mg 08/07/25 09:00 08/17/25 09:12 Docusate Sod 100 Mg Capsule PO 09/06/25 08:59 100 mg QDAY RIANNA Administration Protocol Glucagon 1 mg 08/06/25 16:07 Glucagon Inj 1 Mg Vial IM Q15MIN PRN BG <70, and no IV access Heparin Sodium (Porcine) 5,000 unit 08/06/25 16:15 08/09/25 21:37 Heparin Sod Inj 5000 Unit/Ml Vial SC 08/20/25 16:14 5,000 unit On Hold: 08/10/25 00:00 Q8HR RIANNA Administration Heparin Sodium (Porcine) 2,200 unit 08/11/25 14:27 08/13/25 12:57 Heparin Sod Inj 1000 Unit/Ml Vial 10 Ml INDWELLCAT 08/25/25 14:26 2,200 unit PRN PRN Administration DIALYSIS Albumin Human 25 gm in 100 mls @ 0 mls/hr 08/11/25 11:52 08/11/25 11:52 Albuminex 25% Ivpb IV 300 mls/hr Q30MIN PRN Administration To maintain SBP>90 Per Protocol Levothyroxine Sodium 50 mcg 08/08/25 06:00 08/17/25 05:31 Levothyroxine Sodium 25 Mcg Tablet PO 09/07/25 05:59 50 mcg ACBR RIANNA Administration Midodrine 10 mg 08/07/25 09:40 08/17/25 11:49 Midodrine 5 Mg Tablet PO 09/06/25 09:39 10 mg Q6HR RIANNA Administration Ondansetron HCl 4 mg 08/06/25 15:58 08/16/25 09:11 Ondansetron Inj 2 Mg/Ml Inj 2 Ml IVP 09/05/25 15:57 4 mg Q6H PRN Administration NAUSEA OR VOMITING Protocol Pharmacy Consult 1 each 08/11/25 09:00 Vancomycin Pharmacy To Dose 1 Each Each IV 09/10/25 08:59 QDAY PRN CONSULT Pharmacy Consult 1 each 08/11/25 08:54 Pharmacy Renal Dose Adjustment 1 Ea XX 09/10/25 08:53 PRN PRN CONSULT Vitamin B Complex/Vit C/Folic Acid 1 tab 08/08/25 16:30 08/17/25 09:12 Vit B12/Vit C/Fa (Nephrovite) Tablet PO 09/07/25 16:29 1 tab QDAY RIANNA Administration Plan Assessment and Plan: Summary: Ms. Elizondo is a 64-year-old female with past medical history of CVA, atrial fibrillation on Eliquis, HFrEF EF 15 to 20%, dilated cardiomyopathy, ESRD on hemodialysis Friday//Friday, hypothyroidism, iron deficiency anemia, nephrolithiasis and mood disorder who presented to [facility] emergency department on 08/06/2025, patient found to be lethargic and hypotensive with fever and was admitted to intensive care unit for distributive shock management. Further hospitalization course patient found to have infected dialysis catheter which was removed by interventional radiology, patient had temporary dialysis catheter placed. Post catheter exchange patient continues to be bacteremic and cardiology service consulted for JONES to rule out endocarditis. #Bacteremia #Rule out endocarditis Patient continues to have bacteremia post removal of dialysis catheter which was thought to be infected. Temporary dialysis catheter placed, latest blood cultures still positive for GPC. Infectious diseases following, per ID patient's likely source thought to be dialysis catheter. However primary team consulted for JONES to rule out endocarditis. Please clarify with infectious disease regarding the need for JONES Transthoracic echocardiogram reviewed, no major changes in valvular gradients compared to previous echocardiograms, low suspicion of bacterial endocarditis. Antibiotics per ID recommendations, management per primary team Patient was kept NPO but she is refused JONES on 08/12. Patient continued to refuse JONES. Today patient is agreeable to the procedure as she continues to be bacteremic. Patient was informed that JONES was recommended to rule out endocarditis as she has MRSA bacteremia. Patient denies any kind of swallowing problems or any kind of esophageal interventions or previous surgeries. Patient denies any kind of gastric ulcers bleeding and any other hematemesis or hematochezia. Patient denies any issues with anesthesia previously. Patient explained all the risks, benefits and alternatives of JONES including the risk of perforation, bleeding, respiratory failure secondary to sedation, injury to teeth gums esophagus and stomach. Patient understands all risks and benefits and provided consent for the procedure. We will keep her n.p.o. overnight and plan for JONES in the morning. - Schedule for JONES in a.m. #Heart failure with severely reduced ejection fraction, EF 15 to 20% #Dilated cardiomyopathy Patient has history of severely reduced ejection fraction heart failure. Has been seen in the past, well-known to practice. Recommended GDMT in the past however not noted on patient's med reconciliation. Patient has significant hypotension on midodrine, unable to tolerate GDMT Transthoracic echo 08/07/2025 shows 1. Left ventricle size is moderately enlarged and severe global hypokenesis and severe systolic dysfunction.. Estimated ejection fraction is 15-20%. 2. Right ventricle chamber size is normal and systolic function is mildly reduced. Estimated RVSP is 35-40 mmHg. Mild to moderate pulmonary hypertension. 3. Moderate MR, mild to moderate TR and trace AI. 4. The left atrium is severely enlarged. The right atrium is mildly enlarged. 5. Not well visualized IVC with estimated RA pressure 8 mmHg. Recommendations: - Continue hemodialysis to maintain euvolemia status - Introduce GDMT as tolerated, continue midodrine - Needs to follow-up with primary boom tender outpatient. #Atrial fibrillation, by history Patient has history of atrial fibrillation on Eliquis CHADSVASC score 4, 4.8% stroke risk per year HASBLED 3 EKG 08/05/2025 shows A-fib with RVR ? Continue amiodarone 200 mg p.o. twice daily ? We recommend heparin gtt. if no contraindications and procedures are planned and Eliquis is contraindicated. ? Discharge on Eliquis ? Keep potassium greater than 4 and magnesium greater than 2 at all times #NSTEMI type II secondary to demand ischemia Patient denies any chest pain troponin initially elevated in setting of distributive shock #ESRD on hemodialysis #Electrolyte abnormalities #Hyperphosphatemia #Pressure ulcers #Hypothyroidism #History of CVA, residual left-sided hemiplegia ?Management per primary team Thank you for the consult and allowing to participate in the care of the patient. Cardiology will continue to follow. Case discussed with Attending Physician Dr. Bishnu Williamson MD Internal Medicine PGY-2 Disclaimer: This note was dictated by speech recognition. Minor errors in grid operator may be present due to voice recognition software. Attending Provider Attestation/Addendum I have personally seen and examined the patient separately on the above date of service and discussed the plan of care with the resident. I reviewed the resident Dr. Kimani Williamson consultation progress note and agree with the resident findings and plan in the note above and have also edited the documentation to reflect my findings and plan. Bishnu Barcenas M.D. Interventional Cardiology
[2025-08-17] MEDS: ALBUMIN HUMAN-KJDA 25% IVPB 25 GM/100 ML BTL IV (13:17)
[2025-08-17] MEDS: EPOETIN ALFA-EPBX INJ 10,000 UNIT/ML VIAL (NON-ESRD) 10000 UNIT IV (13:55)
--- NOTE | 2025-08-17 15:18 | PC.CC ---
BARBARA Ramsay and ZIA Erazo met with patient bedside doctor in patient dialysis room. Patient denied any Suicide ideation or homicidal ideation. Patient denied every making any statements that she was going to harm self. Patient feels that killing herself is a sine. Patient doctor agreed to remove sitter. BARBARA and ZIA Erazo spoke with bedside nurse and charge nurse. They had no concerns with patient at this time.
[2025-08-18] VITALS (35 sets, daily range): BP systolic 75–157; BP diastolic 36–90; PULSE 52–111; RESP 12–22; TEMP 35.7–36.3; O2SAT 92–100
--- NOTE | 2025-08-18 | XR_ITS ---
EXAMINATION: Venous access removal nontunneled dialysis catheter Date and time: August 18, 2025, 12 noon INDICATIONS: No longer needed for dialysis catheter TECHNIQUE AND FINDINGS: Informed consent provided. Timeout performed. Skin prepped over the entrance site of the dialysis catheter sterile drape hand hygiene Successful removal of the temporary dialysis catheter Direct pressure applied for controlled with hemostasis Negative for blood loss IMPRESSION: Successful venous access removal nontunneled dialysis catheter
[2025-08-18] MEDS: LEVOTHYROXINE SODIUM 25 MCG TABLET 50 MCG PO (05:19)
[2025-08-18] MEDS: MIDODRINE 5 MG TABLET 10 MG PO ×2 (05:20→17:11)
[2025-08-18 05:29] LABS: Basophils # (Auto) 0.1 Thou/mm3 (0.0-0.2); Basophils % (Auto) 1 % (0-2.5); Eosinophils # (Auto) 0.2 Thou/mm3 (0.0-0.5); Eosinophils % (Auto) 1 % (0-10); Hematocrit 31.3 % (36.0-46.0); Hemoglobin 10.0 g/dL (12.0-16.0); Immature Granulocytes Auto 0.12 Thou/mm3 (0.00-0.00); Lymphocytes # (Auto) 1.9 Thou/mm3 (1.0-4.8); Lymphocytes % (Auto) 11 % (10-50); Mean Corpuscular HGB Conc 31.9 g/dl (31.0-37.0); Mean Corpuscular Hemoglobin 31.1 pg (25.0-35.0); Mean Corpuscular Volume 97 fL (80-100); Monocytes # (Auto) 1.0 Thou/mm3 (0.0-0.8); Monocytes % (Auto) 5 % (0-12); Neutrophils # (Auto) 14.7 Thou/mm3 (1.8-7.7); Neutrophils % (Auto) 82 % (37-80); Nucleated Red Blood Cell # 0.00 Thou/mm3 (0.00-0.00); Nucleated Red Blood Cell % 0 /100 WBC (0); Platelet Count 308 Thou/mm3 (140-440); RDW Standard Deviation 53.1 fL (36.4-46.3); Red Blood Count 3.22 Miln/mm3 (4.00-5.20); White Blood Count 18.0 Thou/mm3 (3.6-11.0)
[2025-08-18 06:13] LABS: Alanine Aminotransferase 18 U/L (10-49); Albumin, Serum 4.0 gm/dL (3.4-4.8); Albumin/Globulin Ratio 1.2 (1.2-2.2); Alkaline Phosphatase 90 U/L (46-116); Anion Gap 16 (7-16); Aspartate Amino Transferase 18 U/L (0-34); BUN/Creatinine Ratio 10 Ratio (12-20); Bilirubin,Total 0.4 mg/dL (0.3-1.2); Blood Urea Nitrogen 36 mg/dL (9-23); Calcium 8.7 mg/dL (8.3-10.6); Calcium (Corrected) 8.7 mg/dL (8.5-10.1); Carbon Dioxide 27.2 mMol/L (20.0-31.0); Chloride 99 mMol/L (98-107); Creatinine (Component) 3.7 mg/dL (0.6-1.3); Estimated Creatinine Clearance 20.1 mL/min (>60); Globulin 3.4 gm/dL (2.3-3.5); Glucose 91 mg/dL (74-106); Osmolality,Calculated 291 (275-295); Potassium 3.7 mMol/L (3.4-5.1); Sodium 142 mMol/L (136-145); Total Protein 7.4 gm/dL (5.7-8.2); Vancomycin,Random 22.7 mcg/mL; eGFR 13 See Note
[2025-08-18 08:27] LABS: Magnesium 2.0 mg/dL (1.6-2.6); Phosphorous 4.5 mg/dL (2.4-5.1)
--- NOTE | 2025-08-18 08:49 | ECHO_ITS ---
Patient Info Name: Hollie Whaley Age: 64 years : 1960 Gender: Female Ht: 183 cm Wt: 94 kg BSA: 2.21 m2 BP: 98 / 78 mmHg HR: 96 bpm Exam Date: 08/18/2025 1:27 PM Admit Date: 08/06/2025 Site: [facility] Room Number: [employer] Patient Status: I Exam Type: CA echo transesophageal Cq Developer: Dayna Emery Ordering Physician: Kimani Williamson Study Info Indications R/O Endocarditis - Primary Location: [id number] Mitral Valve Name Value Normal MV Regurgitation Doppler MV EROA (PISA) 0.29 cm2 MR Volume (PISA) 48 ml Tricuspid Valve Name Value Normal TV Regurgitation Doppler TR Peak Velocity 270 cm/s Left Ventricle Left ventricular chamber dimension is normal. Left ventricular systolic function is severely reduced with visually estimated ejection fraction of 15-20%. There is normal geometry noted in the left ventricle. There is indeterminate diastolic function in the left ventricle. Right Ventricle Right ventricular chamber dimension is normal. Right ventricular systolic function is normal. Left Atrium Left atrial chamber dimension is severely enlarged. There is no thrombus visualized in the left atrium. There is no thrombus visualized in the left atrial appendage. Right Atrium Right atrial chamber dimension is mildly enlarged. Atrial Septum The interatrial septum appears normal with no evidence of PFO or ASD by agitated saline imaging. Aortic Valve The aortic valve is trileaflet. Pulmonic Valve The pulmonic valve is normal. Mitral Valve The mitral valve has normal leaflets. There is moderate mitral valve regurgitation. Tricuspid Valve The tricuspid valve leaflets are normal. There is moderate tricuspid valve regurgitation. Pulmonary Veins Systolic blunting in the pulmonary venous flow. Pericardium/Pleural There is no pericardial effusion. The pericardium appears normal. Summary 1. Echodensity noted SVC MRI retention me of the tip of the venous catheter measuring 1.5 x 0.8 cm. Cannot rule out vegetation versus small thrombus. No echo contrast/Definity at this institution to differentiate. 2. There is no evidence of any valvular vegetation. No LA or ELZA thrombus. Bubble study negative for PFO or ASD. 3. Left ventricular systolic function is severely reduced with visually estimated ejection fraction of 15-20%. 4. Normal RV size and function. Moderate MR and moderate TR. Trace AI and trace PI. 5. Systolic blunting in the pulmonary venous flow. Report Signatures Finalized by Bishnu Barcenas on 08/19/2025 07:52 AM
[2025-08-18] MEDS: ALBUMIN HUMAN-KJDA 25% IVPB 25 GM/100 ML BTL IV ×2 (09:01→10:02)
--- NOTE | 2025-08-18 09:37 | PD.RESPRO ---
Documentation for date of: 08/18/25 Subjective Subjective Interval history: Patient seen examined at bedside, is scheduled for JONES today. Patient is agreeable to the procedure. Patient's labs and vitals reviewed, continue amiodarone and midodrine. Exam Vital Signs Temp Pulse Resp BP Pulse Ox O2 Del Method O2 Flow Rate 97.1 F 69 15 96/48 L 96 Nasal Cannula 2 08/18/25 08:50 08/18/25 09:30 08/18/25 08:50 08/18/25 09:30 08/18/25 08:50 08/18/25 08:00 08/18/25 08:50 FiO2 92 08/18/25 08:50 Narrative Exam GENERAL: A&Ox3, no acute distress HEENT: mucous membranes moist, bilateral sclera anicteric, dialysis catheter noted. CARDIOVASCULAR: Irregularly irregular, S1/S2 present, no murmurs appreciated PULMONARY: clear to auscultation bilaterally, no rales/rhonchi/wheezes ABDOMINAL: soft, non-tender, non-distended, no rebound/guarding, bowel sounds present EXTREMITIES: trace BLE pitting edema SKIN: warm and dry, intact, no rashes NEURO: CN II-XII grossly intact, alert, following commands, L sided motor deficits, hand and feet flexed sensation intact, no neglect Objective Labs 08/19/25 05:00 08/19/25 05:00 Labs: Laboratory Results - last 24 hr 08/18/25 04:14 WBC 18.0 H RBC 3.22 L Hgb 10.0 L Hct 31.3 L MCV 97 MCH 31.1 MCHC 31.9 RDW Std Deviation 53.1 H Plt Count 308 Neut % (Auto) 82 H Lymph % (Auto) 11 [place] % (Auto) 5 Eos % (Auto) 1 Baso % (Auto) 1 Neut # (Auto) 14.7 H Lymph # (Auto) 1.9 [place] # (Auto) 1.0 H Eos # (Auto) 0.2 Baso # (Auto) 0.1 Immature Gran # (Auto) 0.12 H Absolute Nucleated RBC 0.00 Immature Gran % 1 H Nucleated RBC % 0 Sodium 142 Potassium 3.7 D Chloride 99 Carbon Dioxide 27.2 Anion Gap 16 BUN 36 H Creatinine 3.7 H D Estim Creat Clear Calc 20.1 L eGFR 13 L* BUN/Creatinine Ratio 10 L Glucose 91 Calculated Osmolality 291 Calcium 8.7 Corrected Calcium 8.7 Phosphorus 4.5 Magnesium 2.0 Total Bilirubin 0.4 AST 18 ALT 18 Alkaline Phosphatase 90 Total Protein 7.4 Albumin 4.0 Globulin 3.4 Albumin/Globulin Ratio 1.2 Random Vancomycin 22.7 ABG Interpretation ABG results: 08/06/25 08/07/25 11:42 04:24 ABG pH 7.41 7.42 ABG pCO2 41 38 ABG pO2 96 71 L D ABG HCO3 26 25 ABG O2 Saturation 98 95 ABG Base Excess 1 0 Quality Measures Quality Measures none Assessment & Plan Assessment Current Active Medications: Generic Name Dose Route Start Last Admin Trade Name Freq PRN Reason Stop Dose Admin Acetaminophen 650 mg 08/06/25 15:58 08/16/25 16:26 Acetaminophen 325 Mg Tablet PO 09/05/25 15:57 650 mg Q6H PRN Administration Fever >100.4 or pain 1-3 Amiodarone HCl 200 mg 08/07/25 09:35 08/17/25 21:18 Amiodarone Hcl 200 Mg Tablet PO 09/06/25 09:34 200 mg BID RIANNA Administration Dextrose 25 ml 08/06/25 16:07 08/08/25 11:38 Dextrose 50%-Water Inj 50 Ml Syringe IV 09/05/25 16:06 25 ml Q15MIN PRN Administration BG 50-70 responsive npo pt Dextrose 50 ml 08/06/25 16:07 Dextrose 50%-Water Inj 50 Ml Syringe IV 09/05/25 16:06 Q15MIN PRN BG <50 OR BG <70 & pt unresponsive Docusate Sodium 100 mg 08/07/25 09:00 08/17/25 09:12 Docusate Sod 100 Mg Capsule PO 09/06/25 08:59 100 mg QDAY RIANNA Administration Protocol Glucagon 1 mg 08/06/25 16:07 Glucagon Inj 1 Mg Vial IM Q15MIN PRN BG <70, and no IV access Heparin Sodium (Porcine) 5,000 unit 08/06/25 16:15 08/09/25 21:37 Heparin Sod Inj 5000 Unit/Ml Vial SC 08/20/25 16:14 5,000 unit On Hold: 08/10/25 00:00 Q8HR RIANNA Administration Heparin Sodium (Porcine) 2,600 unit 08/17/25 13:44 Heparin Sod Inj 1000 Unit/Ml Vial 10 Ml [facility] 08/23/25 13:43 X1 PRN DIALYSIS Albumin Human 25 gm in 100 mls @ 100 mls/hr 08/18/25 09:13 Albuminex 25% Ivpb IV PRN PRN DIALYSIS Levothyroxine Sodium 50 mcg 08/08/25 06:00 08/18/25 05:19 Levothyroxine Sodium 25 Mcg Tablet PO 09/07/25 05:59 50 mcg ACBR RIANNA Administration Midodrine 10 mg 08/07/25 09:40 08/18/25 05:20 Midodrine 5 Mg Tablet PO 09/06/25 09:39 10 mg Q6HR RIANNA Administration Ondansetron HCl 4 mg 08/06/25 15:58 08/16/25 09:11 Ondansetron Inj 2 Mg/Ml Inj 2 Ml IVP 09/05/25 15:57 4 mg Q6H PRN Administration NAUSEA OR VOMITING Protocol Pharmacy Consult 1 each 08/11/25 09:00 Vancomycin Pharmacy To Dose 1 Each Each IV 09/10/25 08:59 QDAY PRN CONSULT Pharmacy Consult 1 each 08/11/25 08:54 Pharmacy Renal Dose Adjustment 1 Ea XX 09/10/25 08:53 PRN PRN CONSULT Vitamin B Complex/Vit C/Folic Acid 1 tab 08/08/25 16:30 08/17/25 09:12 Vit B12/Vit C/Fa (Nephrovite) Tablet PO 09/07/25 16:29 1 tab QDAY RIANNA Administration Plan Assessment and Plan: Summary: Ms. Elizondo is a 64-year-old female with past medical history of CVA, atrial fibrillation on Eliquis, HFrEF EF 15 to 20%, dilated cardiomyopathy, ESRD on hemodialysis Friday//Friday, hypothyroidism, iron deficiency anemia, nephrolithiasis and mood disorder who presented to [facility] emergency department on 08/06/2025, patient found to be lethargic and hypotensive with fever and was admitted to intensive care unit for distributive shock management. Further hospitalization course patient found to have infected dialysis catheter which was removed by interventional radiology, patient had temporary dialysis catheter placed. Post catheter exchange patient continues to be bacteremic and cardiology service consulted for JONES to rule out endocarditis. #Bacteremia #Rule out endocarditis Patient continues to have bacteremia post removal of dialysis catheter which was thought to be infected. Temporary dialysis catheter placed, latest blood cultures still positive for GPC. Infectious diseases following, per ID patient's likely source thought to be dialysis catheter. However primary team consulted for JONES to rule out endocarditis. Please clarify with infectious disease regarding the need for JONES Transthoracic echocardiogram reviewed, no major changes in valvular gradients compared to previous echocardiograms, low suspicion of bacterial endocarditis. Antibiotics per ID recommendations, management per primary team Patient was kept NPO but she is refused JONES on 08/12. Patient continued to refuse JONES. Today patient is agreeable to the procedure as she continues to be bacteremic. Patient was informed that JONES was recommended to rule out endocarditis as she has MRSA bacteremia. Patient denies any kind of swallowing problems or any kind of esophageal interventions or previous surgeries. Patient denies any kind of gastric ulcers bleeding and any other hematemesis or hematochezia. Patient denies any issues with anesthesia previously. Patient explained all the risks, benefits and alternatives of JONES including the risk of perforation, bleeding, respiratory failure secondary to sedation, injury to teeth gums esophagus and stomach. Patient understands all risks and benefits and provided consent for the procedure. Currently n.p.o. - Scheduled for JONES today #Heart failure with severely reduced ejection fraction, EF 15 to 20% #Dilated cardiomyopathy Patient has history of severely reduced ejection fraction heart failure. Has been seen in the past, well-known to practice. Recommended GDMT in the past however not noted on patient's med reconciliation. Patient has significant hypotension on midodrine, unable to tolerate GDMT Transthoracic echo 08/07/2025 shows 1. Left ventricle size is moderately enlarged and severe global hypokenesis and severe systolic dysfunction.. Estimated ejection fraction is 15-20%. 2. Right ventricle chamber size is normal and systolic function is mildly reduced. Estimated RVSP is 35-40 mmHg. Mild to moderate pulmonary hypertension. 3. Moderate MR, mild to moderate TR and trace AI. 4. The left atrium is severely enlarged. The right atrium is mildly enlarged. 5. Not well visualized IVC with estimated RA pressure 8 mmHg. Recommendations: - Continue hemodialysis to maintain euvolemia status - Introduce GDMT as tolerated, continue midodrine - Needs to follow-up with primary [employer] outpatient. #Atrial fibrillation, by history Patient has history of atrial fibrillation on Eliquis CHADSVASC score 4, 4.8% stroke risk per year HASBLED 3 EKG 08/05/2025 shows A-fib with RVR ? Continue amiodarone 200 mg p.o. twice daily ? We recommend heparin gtt. if no contraindications and procedures are planned and Eliquis is contraindicated. ? Discharge on Eliquis ? Keep potassium greater than 4 and magnesium greater than 2 at all times #NSTEMI type II secondary to demand ischemia Patient denies any chest pain troponin initially elevated in setting of distributive shock #ESRD on hemodialysis #Electrolyte abnormalities #Hyperphosphatemia #Pressure ulcers #Hypothyroidism #History of CVA, residual left-sided hemiplegia ?Management per primary team Thank you for the consult and allowing to participate in the care of the patient. Cardiology will continue to follow. Case discussed with Attending Physician Dr. Bishnu Williamson MD Internal Medicine PGY-2 Disclaimer: This note was dictated by speech recognition. Minor errors in him manager may be present due to voice recognition software. Attending Provider Attestation/Addendum I have personally seen and examined the patient separately on the above date of service and discussed the plan of care with the resident. I reviewed the resident Dr. Raheem Call / Kimani Williamson consultation progress note and agree with the resident findings and plan in the note above and have also edited the documentation to reflect my findings and plan. Bishnu Barcenas M.D. Interventional Cardiology
[2025-08-18] MEDS: HEPARIN SOD INJ 1000 UNIT/ML VIAL 10 ML 2600 UNIT INDWELLCAT (11:35)
--- NOTE | 2025-08-18 12:38 | PC.NURSE ---
0800: Patient taken transferred to dialysis. 1145: Patient returned from dialysis. Patient is NPO for JONES. Medication will be given after procedure.
--- NOTE | 2025-08-18 12:40 | ESPR_ITS ---
Documentation for date of: 08/18/25 Subjective Subjective Interval history: Patient seen and examined at bedside; no acute events overnight. Patient had dialysis done today, will have line removed, JONES done, and MRI with contrast done. Exam Vital Signs Temp Pulse Resp BP Pulse Ox O2 Del Method O2 Flow Rate 96.2 F L 75 15 101/47 L 96 Nasal Cannula 2 08/18/25 11:46 08/18/25 12:00 08/18/25 11:46 08/18/25 11:46 08/18/25 11:46 08/18/25 08:00 08/18/25 11:46 FiO2 92 08/18/25 11:46 Narrative Exam GENERAL: A&Ox3 HEENT: mucous membranes moist, bilateral sclera anicteric CARDIOVASCULAR: irregularly irregular, S1/S2 present, no murmurs appreciated PULMONARY: clear to auscultation bilaterally, no rales/rhonchi/wheezes ABDOMINAL: soft, non-tender, non-distended, no rebound/guarding, bowel sounds present EXTREMITIES: 1+ BLE pitting edema SKIN: warm and dry, intact, no rashes NEURO: CN II-XII grossly intact, alert, following commands, L sided motor deficits, hand and feet flexed sensation intact, no neglect Objective Labs 08/18/25 04:14 08/18/25 04:14 Labs: Laboratory Results - last 24 hr 08/18/25 04:14 WBC 18.0 H RBC 3.22 L Hgb 10.0 L Hct 31.3 L MCV 97 MCH 31.1 MCHC 31.9 RDW Std Deviation 53.1 H Plt Count 308 Neut % (Auto) 82 H Lymph % (Auto) 11 [place] % (Auto) 5 Eos % (Auto) 1 Baso % (Auto) 1 Neut # (Auto) 14.7 H Lymph # (Auto) 1.9 [place] # (Auto) 1.0 H Eos # (Auto) 0.2 Baso # (Auto) 0.1 Immature Gran # (Auto) 0.12 H Absolute Nucleated RBC 0.00 Immature Gran % 1 H Nucleated RBC % 0 Sodium 142 Potassium 3.7 D Chloride 99 Carbon Dioxide 27.2 Anion Gap 16 BUN 36 H Creatinine 3.7 H D Estim Creat Clear Calc 20.1 L eGFR 13 L* BUN/Creatinine Ratio 10 L Glucose 91 Calculated Osmolality 291 Calcium 8.7 Corrected Calcium 8.7 Phosphorus 4.5 Magnesium 2.0 Total Bilirubin 0.4 AST 18 ALT 18 Alkaline Phosphatase 90 Total Protein 7.4 Albumin 4.0 Globulin 3.4 Albumin/Globulin Ratio 1.2 Random Vancomycin 22.7 ABG Interpretation ABG results: 08/06/25 08/07/25 11:42 04:24 ABG pH 7.41 7.42 ABG pCO2 41 38 ABG pO2 96 71 L D ABG HCO3 26 25 ABG O2 Saturation 98 95 ABG Base Excess 1 0 Quality Measures Quality Measures none Assessment & Plan Assessment Current Active Medications: Generic Name Dose Route Start Last Admin Trade Name Freq PRN Reason Stop Dose Admin Acetaminophen 650 mg 08/06/25 15:58 08/16/25 16:26 Acetaminophen 325 Mg Tablet PO 09/05/25 15:57 650 mg Q6H PRN Administration Fever >100.4 or pain 1-3 Amiodarone HCl 200 mg 08/07/25 09:35 08/17/25 21:18 Amiodarone Hcl 200 Mg Tablet PO 09/06/25 09:34 200 mg BID RIANNA Administration Dextrose 25 ml 08/06/25 16:07 08/08/25 11:38 Dextrose 50%-Water Inj 50 Ml Syringe IV 09/05/25 16:06 25 ml Q15MIN PRN Administration BG 50-70 responsive npo pt Dextrose 50 ml 08/06/25 16:07 Dextrose 50%-Water Inj 50 Ml Syringe IV 09/05/25 16:06 Q15MIN PRN BG <50 OR BG <70 & pt unresponsive Docusate Sodium 100 mg 08/07/25 09:00 08/17/25 09:12 Docusate Sod 100 Mg Capsule PO 09/06/25 08:59 100 mg QDAY RIANNA Administration Protocol Glucagon 1 mg 08/06/25 16:07 Glucagon Inj 1 Mg Vial IM Q15MIN PRN BG <70, and no IV access Heparin Sodium (Porcine) 5,000 unit 08/06/25 16:15 08/09/25 21:37 Heparin Sod Inj 5000 Unit/Ml Vial SC 08/20/25 16:14 5,000 unit On Hold: 08/10/25 00:00 Q8HR RIANNA Administration Heparin Sodium (Porcine) 2,600 unit 08/17/25 13:44 08/18/25 11:35 Heparin Sod Inj 1000 Unit/Ml [facility] 08/23/25 13:43 2,600 unit X1 PRN Administration DIALYSIS Albumin Human 25 gm in 100 mls @ 100 mls/hr 08/18/25 09:13 08/18/25 10:02 Albuminex 25% Ivpb IV 100 mls/hr PRN PRN Administration DIALYSIS Levothyroxine Sodium 50 mcg 08/08/25 06:00 08/18/25 05:19 Levothyroxine Sodium 25 Mcg Tablet PO 09/07/25 05:59 50 mcg ACBR RIANNA Administration Midodrine 10 mg 08/07/25 09:40 08/18/25 05:20 Midodrine 5 Mg Tablet PO 09/06/25 09:39 10 mg Q6HR RIANNA Administration Ondansetron HCl 4 mg 08/06/25 15:58 08/16/25 09:11 Ondansetron Inj 2 Mg/Ml Inj 2 Ml IVP 09/05/25 15:57 4 mg Q6H PRN Administration NAUSEA OR VOMITING Protocol Pharmacy Consult 1 each 08/11/25 09:00 Vancomycin Pharmacy To Dose 1 Each Each IV 09/10/25 08:59 QDAY PRN CONSULT Pharmacy Consult 1 each 08/11/25 08:54 Pharmacy Renal Dose Adjustment 1 Ea XX 09/10/25 08:53 PRN PRN CONSULT Vitamin B Complex/Vit C/Folic Acid 1 tab 08/08/25 16:30 08/17/25 09:12 Vit B12/Vit C/Fa (Nephrovite) Tablet PO 09/07/25 16:29 1 tab QDAY RIANNA Administration Plan 64-year-old female with PMH of 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 Landry, and history of staghorn calculi, was transferred to ED from a nursing facility with lethargy, hypotension, and fever. Patient admitted to ICU for sepsis workup and downgraded to floors on 08/07/25. #Septic shock - Resolved #DANO secondary to dialysis catheter (MRSA) #Hospital-associated pneumonia #NSTEMI type II 2/2 blood cultures 08/06/25 positive for GPCs 08/06/25 1/2 BCx + MRSA 08/06/25 UCx pending 08/06/25- Troponin peaked 1.423, then fell to 1.175 08/07/25 1/2 BCx +MRSA 08/08/25 22 BCx MRSA in 2/; catheter tip culture + MRSA 08/09/25 2/2 BCx +same MRSA as on 08/08 08/11 2/2 Bcx +MRSA 08/13 10/03 Bcx +GPC 1/2 +MRSA 09/02 08/15 Bcx 1/2 +MRSA 08/17 Bcx 1/2 +GPC WBC 18.0 today Plan: IV vancomycin Remove old dialysis catheter 08/08/25; temporary catheter placed 08/10/25; Plan to place permanent catheter when 48 hours of negative cultures achieved. Removed temporary catheter 08/13/25 ID consulted, thank you for recs- vancomycin alone, B12 tablet daily, catheter needs 48h negative cultures Will get JONES and MRI lumbar spine w/contrast today to check for cardiac vegetations and epidural abscess Obtain repeat BCx 08/19 #End-stage renal disease on dialysis (T/T/F) #Electrolyte abnormalities #Hyperphosphatemia Put in temporary catheter today, got hemodialysis, will take out line tomorrow Plan: Hemodialysis (T/T/F) Avoid nephrotoxic agents, renally dose medicines Give midodrine after dialysis if BP low #Agitation #Suicidal ideation Patient was very agitated today wanting to go home AMA; expressed suicidal ideation to myself and attending. Plan: Placed on 1 to 1 sitter #A-fib [id number]: 5 Patient has history of A-fib. Plan: ? Monitor EKG - Amiodarone 200 BID - K > 4, Mg > 2 #HFrEF (15-20%), stable Longstanding hx. And previously patient has refused cardiac cath, continues to refuse. 08-07-25 Echo shows LV size moderately enlarged and severe global hypokinesis and severe systolic dysfunction estimated EF 15 to 20%. RV chamber size normal systolic function mildly reduced, RVSP 35 to 40 mmHg, mild to moderate pulmonary hypertension, moderate MR, mild to moderate TR and trace AI, LA severely enlarged, RA mildly enlarged Plan: ? Caution with fluids - Keep K>4 and Mg>2 at all times #Pressure ulcers Sacral and decubitous ulcer and lateral leg ulcers. Do not appear cellulitic, more granulotamous. Ankle has a purulent base with oozing without cellultic changes. Plan: Continue to monitor, wound care referral placed #Hypothyroidism Patient has history of hypothyroidism. Plan: Restart home levothyroxine 50mcg #Hx of CVA, residual L-sided hemiplegia Stable Disposition: Med-Surg DVT prophylaxis: heparin 5000u q8h GI prophylaxis: none Diet: Renal, 1L fluid restriction Lines: PIV CODE STATUS: Full code This case was discussed with my attending physician, Dr. Pruitt, and senior resident, Dr. Freeman. Rom Evans, PGY1 Senior Resident Attestation: The patient received JONES, results pending. Due to concern regarding contrast, she did not receive MRI spine, but we will try to get that done today. However, blood culture still came back positive and will continue with IV antibiotics. The patient received 1 session of hemodialysis yesterday and 1 session today, and temporary hemodialysis catheter was removed. I discussed with and supervised the advertising internship physician involved in the care of this patient. I personally saw and examined the patient and discussed the assessment and plan with the entire medicine team, including my attending. I agree with the assessment and plan as documented above. Lucian Freeman MD PGY3 Internal Medicine Attending Provider Attestation/Addendum I have seen and examined the patient. I was physically present for the horn portions of the services provided including history, physical exam, diagnosis, treatment plans and orders. I agree with assessment and plan of care as documented by residents. Even though this this note was carefully revised there may still be minor errors in human resources psychologist due to voice recognition software. Anahi Pruitt MD
[2025-08-18] MEDS: BENZOCAINE 20% (Hurricaine) SPRAY 1 DOSE TOP (13:28)
[2025-08-18] MEDS: MIDAZOLAM INJ 1 MG/ML VIAL 2 ML 1.5 MG IVP (13:28)
[2025-08-18] MEDS: fentaNYL CIT INJ 50 mCg/ML AMP 2ML 25 MCG IVP (13:28)
[2025-08-18] MEDS: SODIUM CHLORIDE 0.9% 250 ML 250 ML 999 ML IV (13:40)
--- NOTE | 2025-08-18 15:13 | PC.NURSE ---
Vascath to right neck removed at this time. Manual pressure applied for about 10 minutes until homeostasis achieved. Surgical site covered with dry dressing and secured with Tagaderm. Patient tolerated procedure without complications, pain, or discomfort. No acute changes or deviation from baseline noted.
--- NOTE | 2025-08-18 16:00 | PC.NURSE ---
Pharmacy is dosing Vancomyicin. Per pharmacy, pt is getting antibiotic every 3 days due to decreased renal function. Blood culture positive for MRSA.
--- NOTE | 2025-08-18 16:06 | PC.NURSE ---
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 Wound care completed.
[2025-08-18] MEDS: ACETAMINOPHEN 325 MG TABLET 650 MG PO ×2 (16:18→22:21)
[2025-08-18] MEDS: AMIODARONE HCL 200 MG TABLET PO (20:15)
[2025-08-19] VITALS (13 sets, daily range): BP systolic 85–148; BP diastolic 43–88; PULSE 61–106; RESP 15–20; TEMP 36.1–36.6; O2SAT 93–99; BMI 28.1
[2025-08-19] MEDS: MIDODRINE 5 MG TABLET 10 MG PO ×3 (05:14→17:54)
[2025-08-19] MEDS: LEVOTHYROXINE SODIUM 25 MCG TABLET 50 MCG PO (05:14)
[2025-08-19] MEDS: ACETAMINOPHEN 325 MG TABLET 650 MG PO ×2 (05:14→11:02)
[2025-08-19 05:55] LABS: Sed Rate (ESR) 69 mm/hr (0-30)
[2025-08-19 06:00] LABS: Basophils # (Auto) 0.1 Thou/mm3 (0.0-0.2); Basophils % (Auto) 0 % (0-2.5); Eosinophils # (Auto) 0.2 Thou/mm3 (0.0-0.5); Eosinophils % (Auto) 1 % (0-10); Hematocrit 36.0 % (36.0-46.0); Hemoglobin 11.2 g/dL (12.0-16.0); Immature Granulocytes Auto 0.14 Thou/mm3 (0.00-0.00); Lymphocytes # (Auto) 1.5 Thou/mm3 (1.0-4.8); Lymphocytes % (Auto) 8 % (10-50); Mean Corpuscular HGB Conc 31.1 g/dl (31.0-37.0); Mean Corpuscular Hemoglobin 30.8 pg (25.0-35.0); Mean Corpuscular Volume 99 fL (80-100); Monocytes # (Auto) 0.8 Thou/mm3 (0.0-0.8); Monocytes % (Auto) 4 % (0-12); Neutrophils # (Auto) 17.3 Thou/mm3 (1.8-7.7); Neutrophils % (Auto) 87 % (37-80); Nucleated Red Blood Cell # 0.00 Thou/mm3 (0.00-0.00); Nucleated Red Blood Cell % 0 /100 WBC (0); Platelet Count 299 Thou/mm3 (140-440); RDW Standard Deviation 55.2 fL (36.4-46.3); Red Blood Count 3.64 Miln/mm3 (4.00-5.20); White Blood Count 20.0 Thou/mm3 (3.6-11.0)
[2025-08-19 06:31] LABS: Alanine Aminotransferase 15 U/L (10-49); Albumin, Serum 4.9 gm/dL (3.4-4.8); Albumin/Globulin Ratio 1.3 (1.2-2.2); Alkaline Phosphatase 96 U/L (46-116); Anion Gap 18 (7-16); Aspartate Amino Transferase 15 U/L (0-34); BUN/Creatinine Ratio 11 Ratio (12-20); Bilirubin,Total 0.3 mg/dL (0.3-1.2); Blood Urea Nitrogen 49 mg/dL (9-23); C-Reactive Protein 6.4 mg/dL (0.0-0.9); Calcium 9.6 mg/dL (8.3-10.6); Calcium (Corrected) 9.6 mg/dL (8.5-10.1); Carbon Dioxide 25.5 mMol/L (20.0-31.0); Chloride 99 mMol/L (98-107); Creatinine (Component) 4.5 mg/dL (0.6-1.3); Estimated Creatinine Clearance 16.5 mL/min (>60); Globulin 3.7 gm/dL (2.3-3.5); Glucose 124 mg/dL (74-106); Magnesium 2.3 mg/dL (1.6-2.6); Osmolality,Calculated 297 (275-295); Phosphorous 4.8 mg/dL (2.4-5.1); Potassium 4.4 mMol/L (3.4-5.1); Procalcitonin 1.49 ng/ml (0.0-0.49); Sodium 142 mMol/L (136-145); Total Protein 8.6 gm/dL (5.7-8.2); Vancomycin,Random 21.0 mcg/mL; eGFR 10 See Note
--- NOTE | 2025-08-19 08:49 | PC.SS ---
Follow up note: Waiting for blood cultures to be negative to place permanent dialysis line. On IV antibiotic. Pt will return to [facility] upon dc. Pt is established with [facility].
--- NOTE | 2025-08-19 09:01 | PC.CC ---
Addendum for 12: 18 BARBARA Ramsay and ZIA Erazo, along with bedside doctor to review and assess patient mental health needs. Patient is a 64 year female. Patient has hx of schizophrenia, is taking psychotropic medication and it is likely patient had not been taking medication which caused her to act out. Patient bedside doctor assess patient for suicidal ideation, homicidal ideation, visual and audio halluction. Patient was oriented x 3. Patient denies any suicide ideation, homicidal ideation, visual and audio halluction. Patient doctor feels that patient does not met criteria for hold and therefore at this time patient will not be assessed for a 5150 hold. ENVELOPE MACHINE ADJUSTER spoke with BARBARA Browne regarding case. ENVELOPE MACHINE ADJUSTER also spoke with OLIVER Santos regarding meeting with patient and patient doctor.
[2025-08-19] MEDS: DOCUSATE SOD 100 MG CAPSULE PO (09:46)
[2025-08-19] MEDS: AMIODARONE HCL 200 MG TABLET PO ×2 (09:46→21:13)
[2025-08-19] MEDS: VIT B12/Vit C/FA (Nephrovite) TABLET 1 TAB PO (09:46)
[2025-08-19 11:53] LABS: INR 1.1 (0.9-1.3); Partial Thromboplastin Time 28.3 Seconds (22.0-36.0); Prothrombin Time 11.2 Seconds (9.0-12.2)
--- NOTE | 2025-08-19 12:27 | PD.RESPRO ---
Documentation for date of: 08/19/25 Subjective Subjective Interval history: Patient seen and examined at bedside, no current complaints Blood pressure continues to remain soft, continue midodrine. Transesophageal echocardiogram 08/18/2025 shows Echodensity noted SVC and RA junction near the tip of the venous catheter measuring 1.5 x 0.8 cm. Cannot rule out vegetation versus small thrombus. No echo contrast/Definity at this institution to differentiate. There is no evidence of any valvular vegetation. No LA or ELZA thrombus. Bubble study negative for PFO or ASD. Left ventricular systolic function is severely reduced with visually estimated ejection fraction of 15-20%. Normal RV size and function. Moderate MR and moderate TR. Trace AI and trace PI. Systolic blunting in the pulmonary venous flow. Underlying etiology of the echodensity: Vegetation versus thrombus, Less likely thrombus as patient has been on eliquis. Recommend continuing antibiotics per infectious disease recommendations and patient already on anticoagulation. Can consider transesophageal echocardiogram after antibiotic treatment completion for 6 weeks if patient is still bacteremic to assess the echodensity again. Exam Vital Signs Temp Pulse Resp BP Pulse Ox O2 Del Method O2 Flow Rate 97.3 F 97 17 85/57 L 98 Nasal Cannula 2 08/19/25 08:00 08/19/25 12:00 08/19/25 08:00 08/19/25 11:03 08/19/25 09:00 08/19/25 08:00 08/19/25 09:00 FiO2 92 08/18/25 11:46 Narrative Exam GENERAL: A&Ox3, no acute distress HEENT: mucous membranes moist, bilateral sclera anicteric, dialysis catheter noted. CARDIOVASCULAR: Irregularly irregular, S1/S2 present, no murmurs appreciated PULMONARY: clear to auscultation bilaterally, no rales/rhonchi/wheezes ABDOMINAL: soft, non-tender, non-distended, no rebound/guarding, bowel sounds present EXTREMITIES: trace BLE pitting edema SKIN: warm and dry, intact, no rashes NEURO: CN II-XII grossly intact, alert, following commands, L sided motor deficits, hand and feet flexed sensation intact, no neglect Objective Labs 08/19/25 05:00 08/19/25 05:00 Labs: Laboratory Results - last 24 hr 08/19/25 05:00 WBC 20.0 H RBC 3.64 L Hgb 11.2 L Hct 36.0 MCV 99 MCH 30.8 MCHC 31.1 RDW Std Deviation 55.2 H Plt Count 299 Neut % (Auto) 87 H Lymph % (Auto) 8 L [place] % (Auto) 4 Eos % (Auto) 1 Baso % (Auto) 0 Neut # (Auto) 17.3 H Lymph # (Auto) 1.5 [place] # (Auto) 0.8 Eos # (Auto) 0.2 Baso # (Auto) 0.1 Immature Gran # (Auto) 0.14 H Absolute Nucleated RBC 0.00 Immature Gran % 1 H Nucleated RBC % 0 ESR 69 H PT 11.2 INR 1.1 APTT 28.3 Sodium 142 Potassium 4.4 D Chloride 99 Carbon Dioxide 25.5 Anion Gap 18 H BUN 49 H Creatinine 4.5 H* D Estim Creat Clear Calc 16.5 L eGFR 10 L* BUN/Creatinine Ratio 11 L Glucose 124 H Calculated Osmolality 297 H Calcium 9.6 Corrected Calcium 9.6 Phosphorus 4.8 Magnesium 2.3 Total Bilirubin 0.3 AST 15 ALT 15 Alkaline Phosphatase 96 C-Reactive Prot, Quant 6.4 H Total Protein 8.6 H Albumin 4.9 H D Globulin 3.7 H Albumin/Globulin Ratio 1.3 Procalcitonin 1.49 H Random Vancomycin 21.0 ABG Interpretation ABG results: 08/06/25 08/07/25 11:42 04:24 ABG pH 7.41 7.42 ABG pCO2 41 38 ABG pO2 96 71 L D ABG HCO3 26 25 ABG O2 Saturation 98 95 ABG Base Excess 1 0 Quality Measures Quality Measures none Assessment & Plan Assessment Current Active Medications: Generic Name Dose Route Start Last Admin Trade Name Freq PRN Reason Stop Dose Admin Acetaminophen 650 mg 08/06/25 15:58 08/19/25 11:02 Acetaminophen 325 Mg Tablet PO 09/05/25 15:57 650 mg Q6H PRN Administration Fever >100.4 or pain 1-3 Amiodarone HCl 200 mg 08/07/25 09:35 08/19/25 09:46 Amiodarone Hcl 200 Mg Tablet PO 09/06/25 09:34 200 mg BID RIANNA Administration Dextrose 25 ml 08/06/25 16:07 08/08/25 11:38 Dextrose 50%-Water Inj 50 Ml Syringe IV 09/05/25 16:06 25 ml Q15MIN PRN Administration BG 50-70 responsive npo pt Dextrose 50 ml 08/06/25 16:07 Dextrose 50%-Water Inj 50 Ml Syringe IV 09/05/25 16:06 Q15MIN PRN BG <50 OR BG <70 & pt unresponsive Docusate Sodium 100 mg 08/07/25 09:00 08/19/25 09:46 Docusate Sod 100 Mg Capsule PO 09/06/25 08:59 100 mg QDAY RIANNA Administration Protocol Glucagon 1 mg 08/06/25 16:07 Glucagon Inj 1 Mg Vial IM Q15MIN PRN BG <70, and no IV access Heparin Sodium (Porcine) 5,000 unit 08/06/25 16:15 08/09/25 21:37 Heparin Sod Inj 5000 Unit/Ml Vial SC 08/20/25 16:14 5,000 unit On Hold: 08/10/25 00:00 Q8HR RIANNA Administration Heparin Sodium (Porcine) 2,600 unit 08/17/25 13:44 08/18/25 11:35 Heparin Sod Inj 1000 Unit/Ml Vial 10 Ml INDWELLCAT 08/23/25 13:43 2,600 unit X1 PRN Administration DIALYSIS Albumin Human 25 gm in 100 mls @ 100 mls/hr 08/18/25 09:13 08/18/25 10:02 Albuminex 25% Ivpb IV 100 mls/hr PRN PRN Administration DIALYSIS Heparin Sodium/Dextrose 25,000 unit in 250 mls @ 10 mls/hr 08/19/25 12:15 Heparin In D5w Ivpb IV 09/02/25 12:14 .Q24H RIANNA Protocol 10.596 UNITS/KG/HR Levothyroxine Sodium 50 mcg 08/08/25 06:00 08/19/25 05:14 Levothyroxine Sodium 25 Mcg Tablet PO 09/07/25 05:59 50 mcg ACBR RIANNA Administration Midodrine 10 mg 08/07/25 09:40 08/19/25 11:03 Midodrine 5 Mg Tablet PO 09/06/25 09:39 10 mg Q6HR RIANNA Administration Ondansetron HCl 4 mg 08/06/25 15:58 08/16/25 09:11 Ondansetron Inj 2 Mg/Ml Inj 2 Ml IVP 09/05/25 15:57 4 mg Q6H PRN Administration NAUSEA OR VOMITING Protocol Pharmacy Consult 1 each 08/11/25 09:00 Vancomycin Pharmacy To Dose 1 Each Each IV 09/10/25 08:59 QDAY PRN CONSULT Pharmacy Consult 1 each 08/11/25 08:54 Pharmacy Renal Dose Adjustment 1 Ea XX 09/10/25 08:53 PRN PRN CONSULT Vitamin B Complex/Vit C/Folic Acid 1 tab 08/08/25 16:30 08/19/25 09:46 Vit B12/Vit C/Fa (Nephrovite) Tablet PO 09/07/25 16:29 1 tab QDAY RIANNA Administration Plan Assessment and Plan: Summary: Ms. Elizondo is a 64-year-old female with past medical history of CVA, atrial fibrillation on Eliquis, HFrEF EF 15 to 20%, dilated cardiomyopathy, ESRD on hemodialysis Friday//Friday, hypothyroidism, iron deficiency anemia, nephrolithiasis and mood disorder who presented to [facility] emergency department on 08/06/2025, patient found to be lethargic and hypotensive with fever and was admitted to intensive care unit for distributive shock management. Further hospitalization course patient found to have infected dialysis catheter which was removed by interventional radiology, patient had temporary dialysis catheter placed. Post catheter exchange patient continues to be bacteremic and cardiology service consulted for JONES to rule out endocarditis. #Echodensity 1.5 x 0.8 cm at tip of venous catheter #Bacteremia #Rule out endocarditis Patient continues to have bacteremia post removal of dialysis catheter which was thought to be infected. Temporary dialysis catheter placed, latest blood cultures still positive for GPC. Infectious diseases following, per ID patient's likely source thought to be dialysis catheter. Patient continued to have bacteremia, patient initially refused JONES however eventually agreed to the procedure, JONES performed successful in 08/18/2025 Transesophageal echocardiogram 08/18/2025 shows Echodensity noted SVC and RA junction near the tip of the venous catheter measuring 1.5 x 0.8 cm. Cannot rule out vegetation versus small thrombus. No echo contrast/Definity at this institution to differentiate. There is no evidence of any valvular vegetation. No LA or ELZA thrombus. Bubble study negative for PFO or ASD. Left ventricular systolic function is severely reduced with visually estimated ejection fraction of 15-20%. Normal RV size and function. Moderate MR and moderate TR. Trace AI and trace PI. Systolic blunting in the pulmonary venous flow. Underlying etiology of the echodensity: Vegetation versus thrombus, Less likely thrombus as patient has been on eliquis. Recommend continuing antibiotics per infectious disease recommendations and patient already on anticoagulation. Can consider transesophageal echocardiogram after antibiotic treatment completion for 6 weeks if patient is still bacteremic to assess the echodensity again. #Heart failure with severely reduced ejection fraction, EF 15 to 20% #Dilated cardiomyopathy Patient has history of severely reduced ejection fraction heart failure. Has been seen in the past, well-known to practice. Recommended GDMT in the past however not noted on patient's med reconciliation. Patient has significant hypotension on midodrine, unable to tolerate GDMT Transthoracic echo 08/07/2025 shows 1. Left ventricle size is moderately enlarged and severe global hypokenesis and severe systolic dysfunction.. Estimated ejection fraction is 15-20%. 2. Right ventricle chamber size is normal and systolic function is mildly reduced. Estimated RVSP is 35-40 mmHg. Mild to moderate pulmonary hypertension. 3. Moderate MR, mild to moderate TR and trace AI. 4. The left atrium is severely enlarged. The right atrium is mildly enlarged. 5. Not well visualized IVC with estimated RA pressure 8 mmHg. Recommendations: - Continue hemodialysis to maintain euvolemia status - Introduce GDMT as tolerated, continue midodrine - Needs to follow-up with primary taxi driver supervisor outpatient. #Atrial fibrillation, by history Patient has history of atrial fibrillation on Eliquis CHADSVASC score 4, 4.8% stroke risk per year HASBLED 3 EKG 08/05/2025 shows A-fib with RVR ? Continue amiodarone 200 mg p.o. twice daily ? We recommend heparin gtt. if no contraindications and procedures are planned and Eliquis is contraindicated. ? Discharge on Eliquis ? Keep potassium greater than 4 and magnesium greater than 2 at all times #NSTEMI type II secondary to demand ischemia Patient denies any chest pain troponin initially elevated in setting of distributive shock #ESRD on hemodialysis #Electrolyte abnormalities #Hyperphosphatemia #Pressure ulcers #Hypothyroidism #History of CVA, residual left-sided hemiplegia ?Management per primary team Thank you for the consult and allowing to participate in the care of the patient. Cardiology will continue to follow. Case discussed with Attending Physician Dr. Bishnu Williamson MD Internal Medicine PGY-2 Disclaimer: This note was dictated by speech recognition. Minor errors in pattern and chain maker may be present due to voice recognition software.
[2025-08-19] MEDS: Heparin/D5w 25K 250 ML Ivpb 25,000 UNIT/250 ML BAG 10 UNIT IV (12:58)
[2025-08-19] MEDS: HEPARIN SOD INJ 5000 UNIT/ML VIAL 4000 UNIT IV (12:58)
--- NOTE | 2025-08-19 14:48 | PD.RESPRO ---
Documentation for date of: 08/19/25 Subjective Subjective Interval history: Patient seen and examined at bedside; no acute events overnight. JONES shows potential vegation vs small thrombus. Exam Vital Signs Temp Pulse Resp BP Pulse Ox O2 Del Method O2 Flow Rate 97.3 F 64 15 108/75 99 Nasal Cannula 2 08/19/25 12:00 08/19/25 12:00 08/19/25 12:00 08/19/25 12:00 08/19/25 12:00 08/19/25 12:00 08/19/25 12:00 FiO2 92 08/18/25 11:46 Narrative Exam GENERAL: A&Ox3, no acute distress HEENT: mucous membranes moist, bilateral sclera anicteric, dialysis catheter noted. CARDIOVASCULAR: Irregularly irregular, S1/S2 present, no murmurs appreciated PULMONARY: clear to auscultation bilaterally, no rales/rhonchi/wheezes ABDOMINAL: soft, non-tender, non-distended, no rebound/guarding, bowel sounds present EXTREMITIES: trace BLE pitting edema SKIN: warm and dry, intact, no rashes NEURO: CN II-XII grossly intact, alert, following commands, L sided motor deficits, hand and feet flexed sensation intact, no neglect Objective Labs 08/19/25 05:00 08/19/25 05:00 Labs: Laboratory Results - last 24 hr 08/19/25 05:00 WBC 20.0 H RBC 3.64 L Hgb 11.2 L Hct 36.0 MCV 99 MCH 30.8 MCHC 31.1 RDW Std Deviation 55.2 H Plt Count 299 Neut % (Auto) 87 H Lymph % (Auto) 8 L [place] % (Auto) 4 Eos % (Auto) 1 Baso % (Auto) 0 Neut # (Auto) 17.3 H Lymph # (Auto) 1.5 [place] # (Auto) 0.8 Eos # (Auto) 0.2 Baso # (Auto) 0.1 Immature Gran # (Auto) 0.14 H Absolute Nucleated RBC 0.00 Immature Gran % 1 H Nucleated RBC % 0 ESR 69 H PT 11.2 INR 1.1 APTT 28.3 Sodium 142 Potassium 4.4 D Chloride 99 Carbon Dioxide 25.5 Anion Gap 18 H BUN 49 H Creatinine 4.5 H* D Estim Creat Clear Calc 16.5 L eGFR 10 L* BUN/Creatinine Ratio 11 L Glucose 124 H Calculated Osmolality 297 H Calcium 9.6 Corrected Calcium 9.6 Phosphorus 4.8 Magnesium 2.3 Total Bilirubin 0.3 AST 15 ALT 15 Alkaline Phosphatase 96 C-Reactive Prot, Quant 6.4 H Total Protein 8.6 H Albumin 4.9 H D Globulin 3.7 H Albumin/Globulin Ratio 1.3 Procalcitonin 1.49 H Random Vancomycin 21.0 ABG Interpretation ABG results: 08/06/25 08/07/25 11:42 04:24 ABG pH 7.41 7.42 ABG pCO2 41 38 ABG pO2 96 71 L D ABG HCO3 26 25 ABG O2 Saturation 98 95 ABG Base Excess 1 0 Quality Measures Quality Measures none Assessment & Plan Assessment Current Active Medications: Generic Name Dose Route Start Last Admin Trade Name Freq PRN Reason Stop Dose Admin Acetaminophen 650 mg 08/06/25 15:58 08/19/25 11:02 Acetaminophen 325 Mg Tablet PO 09/05/25 15:57 650 mg Q6H PRN Administration Fever >100.4 or pain 1-3 Amiodarone HCl 200 mg 08/07/25 09:35 08/19/25 09:46 Amiodarone Hcl 200 Mg Tablet PO 09/06/25 09:34 200 mg BID RIANNA Administration Dextrose 25 ml 08/06/25 16:07 08/08/25 11:38 Dextrose 50%-Water Inj 50 Ml Syringe IV 09/05/25 16:06 25 ml Q15MIN PRN Administration BG 50-70 responsive npo pt Dextrose 50 ml 08/06/25 16:07 Dextrose 50%-Water Inj 50 Ml Syringe IV 09/05/25 16:06 Q15MIN PRN BG <50 OR BG <70 & pt unresponsive Docusate Sodium 100 mg 08/07/25 09:00 08/19/25 09:46 Docusate Sod 100 Mg Capsule PO 09/06/25 08:59 100 mg QDAY RIANNA Administration Protocol Glucagon 1 mg 08/06/25 16:07 Glucagon Inj 1 Mg Vial IM Q15MIN PRN BG <70, and no IV access Heparin Sodium (Porcine) 5,000 unit 08/06/25 16:15 08/09/25 21:37 Heparin Sod Inj 5000 Unit/Ml Vial SC 08/20/25 16:14 5,000 unit On Hold: 08/10/25 00:00 Q8HR RIANNA Administration Heparin Sodium (Porcine) 2,600 unit 08/17/25 13:44 08/18/25 11:35 Heparin Sod Inj 1000 Unit/Ml Vial 10 Ml INDWELLCAT 08/23/25 13:43 2,600 unit X1 PRN Administration DIALYSIS Albumin Human 25 gm in 100 mls @ 100 mls/hr 08/18/25 09:13 08/18/25 10:02 Albuminex 25% Ivpb IV 100 mls/hr PRN PRN Administration DIALYSIS Heparin Sodium/Dextrose 25,000 unit in 250 mls @ 10 mls/hr 08/19/25 12:15 08/19/25 12:58 Heparin In D5w Ivpb IV 09/02/25 12:14 10.596 units/kg/hr .Q24H RIANNA 10 mls/hr Protocol Administration 10.596 UNITS/KG/HR Levothyroxine Sodium 50 mcg 08/08/25 06:00 08/19/25 05:14 Levothyroxine Sodium 25 Mcg Tablet PO 09/07/25 05:59 50 mcg ACBR RIANNA Administration Midodrine 10 mg 08/07/25 09:40 08/19/25 11:03 Midodrine 5 Mg Tablet PO 09/06/25 09:39 10 mg Q6HR RIANNA Administration Ondansetron HCl 4 mg 08/06/25 15:58 08/16/25 09:11 Ondansetron Inj 2 Mg/Ml Inj 2 Ml IVP 09/05/25 15:57 4 mg Q6H PRN Administration NAUSEA OR VOMITING Protocol Pharmacy Consult 1 each 08/11/25 09:00 Vancomycin Pharmacy To Dose 1 Each Each IV 09/10/25 08:59 QDAY PRN CONSULT Pharmacy Consult 1 each 08/11/25 08:54 Pharmacy Renal Dose Adjustment 1 Ea XX 09/10/25 08:53 PRN PRN CONSULT Vitamin B Complex/Vit C/Folic Acid 1 tab 08/08/25 16:30 08/19/25 09:46 Vit B12/Vit C/Fa (Nephrovite) Tablet PO 09/07/25 16:29 1 tab QDAY RIANNA Administration Plan 64-year-old female with PMH of 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 Landry, and history of staghorn calculi, was transferred to ED from a nursing facility with lethargy, hypotension, and fever. Patient admitted to ICU for sepsis workup and downgraded to floors on 08/07/25. #Septic shock - Resolved #DANO secondary to dialysis catheter (MRSA) #Hospital-associated pneumonia #NSTEMI type II 2/ blood cultures 08/06/25 positive for GPCs 08/06/25 1/2 BCx + MRSA 08/06/25 UCx pending 08/06/25- Troponin peaked 1.423, then fell to 1.175 08/07/25 1/2 BCx +MRSA 08/08/25 2/2 BCx MRSA in 2/; catheter tip culture + MRSA 08/09/25 2/2 BCx +same MRSA as on 08/08 08/11 2/2 Bcx +MRSA 08/13 2/2 Bcx +GPC 1/2 +MRSA 1/2 08/15 Bcx 1/2 +MRSA 08/17 Bcx 1/2 +GPC WBC 20.0 today Plan: IV vancomycin Remove old dialysis catheter 08/08/25; temporary catheter placed 08/10/25; Plan to place permanent catheter when 48 hours of negative cultures achieved. Removed temporary catheter 08/13/25 ID consulted, thank you for recs- vancomycin alone, B12 tablet daily, catheter needs 48h negative cultures Will get MRI lumbar spine w/contrast to check for epidural abscess Obtain repeat BCx 08/19 #End-stage renal disease on dialysis (T/T/F) #Electrolyte abnormalities #Hyperphosphatemia Put in temporary catheter today, got hemodialysis, will take out line tomorrow Plan: Hemodialysis (T/T/F) Avoid nephrotoxic agents, renally dose medicines Give midodrine after dialysis if BP low #Agitation #Suicidal ideation Patient was very agitated today wanting to go home AMA; expressed suicidal ideation to myself and attending. Plan: Placed on 1 to 1 sitter Resumed home divalproex, ropinirole #A-fib [id number]: 5 Patient has history of A-fib. Plan: ? Monitor EKG - Amiodarone 200 BID - K > 4, Mg > 2 #HFrEF (15-20%), stable #Vegetation vs thrombus Longstanding hx. And previously patient has refused cardiac cath, continues to refuse. 08-07-25 Echo shows LV size moderately enlarged and severe global hypokinesis and severe systolic dysfunction estimated EF 15 to 20%. RV chamber size normal systolic function mildly reduced, RVSP 35 to 40 mmHg, mild to moderate pulmonary hypertension, moderate MR, mild to moderate TR and trace AI, LA severely enlarged, RA mildly enlarged JONES showed vegetation vs thrombus near SVC/RA junction; patient placed on heparin protocol Plan: ? Caution with fluids - Heparin protocol - Keep K>4 and Mg>2 at all times #Schizophrenia Plan: Restarted home divalproex, hydroxyzine, ropinirole #Pressure ulcers Sacral and decubitous ulcer and lateral leg ulcers. Do not appear cellulitic, more granulotamous. Ankle has a purulent base with oozing without cellultic changes. Plan: Continue to monitor, wound care referral placed #Hypothyroidism Patient has history of hypothyroidism. Plan: Restart home levothyroxine 50mcg #Hx of CVA, residual L-sided hemiplegia Stable Disposition: Med-Surg DVT prophylaxis: heparin 5000u q8h GI prophylaxis: none Diet: Renal, 1L fluid restriction Lines: PIV CODE STATUS: Full code This case was discussed with my attending physician, Dr. Pruitt, and senior resident, Dr. Freeman. Rom Evans, PGY1 Senior Resident Attestation: The patient seemed anxious again this morning. Her JONES was suspicious for either vegetation vs thrombus, and Card Dr. Barcenas recommended continuing iv vanco for 6 weeks and repeat JONES after 6 weeks as outpt, and the pt will get perm HD cath after blood cx is neg for 48 hours. She declined MRI spine again. I discussed with and supervised the investigator internal revenue physician involved in the care of this patient. I personally saw and examined the patient and discussed the assessment and plan with the entire medicine team, including my attending. I agree with the assessment and plan as documented above. Lucian Freeman MD PGY3 Internal Medicine Attending Provider Attestation/Addendum I have seen and examined the patient. I was physically present for the horn portions of the services provided including history, physical exam, diagnosis, treatment plans and orders. I agree with assessment and plan of care as documented by residents. Even though this this note was carefully revised there may still be minor errors in public employment mediator due to voice recognition software. Anahi Pruitt MD
--- NOTE | 2025-08-19 15:08 | PC.SS ---
AZIZA has sent updated inquiry to Lana at [facility] using [employer].
[2025-08-19 19:51] LABS: Partial Thromboplastin Time 24.8 Seconds (22.0-36.0)
[2025-08-19] MEDS: HEPARIN SOD INJ 5000 UNIT/ML VIAL 4000 UNIT IVP (21:05)
--- NOTE | 2025-08-19 21:06 | PC.NURSE ---
Heparin drip rate 12 units/kg, verified with Caro CANTU before increasing by 4 units/kg and giving 4000 unit bolus for PTT of 24.8.
[2025-08-19] MEDS: DIVALPROEX SOD ER 250 MG TABER (NON-FORMULARY) PO (21:13)
[2025-08-20] VITALS (18 sets, daily range): BP systolic 96–119; BP diastolic 42–78; PULSE 66–99; RESP 17–20; TEMP 35.6–36.7; O2SAT 94–99; BMI 28.1
[2025-08-20] MEDS: MIDODRINE 5 MG TABLET 10 MG PO ×4 (00:05→17:12)
[2025-08-20 03:20] LABS: Partial Thromboplastin Time 77.2 Seconds (22.0-36.0)
[2025-08-20] MEDS: LEVOTHYROXINE SODIUM 25 MCG TABLET 50 MCG PO (05:18)
[2025-08-20] MEDS: DIVALPROEX SOD ER 250 MG TABER (NON-FORMULARY) PO (05:19)
[2025-08-20 07:55] LABS: Basophils # (Auto) 0.1 Thou/mm3 (0.0-0.2); Basophils % (Auto) 1 % (0-2.5); Eosinophils # (Auto) 0.2 Thou/mm3 (0.0-0.5); Eosinophils % (Auto) 1 % (0-10); Hematocrit 30.7 % (36.0-46.0); Hemoglobin 9.5 g/dL (12.0-16.0); Immature Granulocytes Auto 0.11 Thou/mm3 (0.00-0.00); Lymphocytes # (Auto) 2.2 Thou/mm3 (1.0-4.8); Lymphocytes % (Auto) 12 % (10-50); Mean Corpuscular HGB Conc 30.9 g/dl (31.0-37.0); Mean Corpuscular Hemoglobin 30.1 pg (25.0-35.0); Mean Corpuscular Volume 97 fL (80-100); Monocytes # (Auto) 0.9 Thou/mm3 (0.0-0.8); Monocytes % (Auto) 5 % (0-12); Neutrophils # (Auto) 15.3 Thou/mm3 (1.8-7.7); Neutrophils % (Auto) 82 % (37-80); Nucleated Red Blood Cell # 0.00 Thou/mm3 (0.00-0.00); Nucleated Red Blood Cell % 0 /100 WBC (0); Platelet Count 259 Thou/mm3 (140-440); RDW Standard Deviation 54.4 fL (36.4-46.3); Red Blood Count 3.16 Miln/mm3 (4.00-5.20); White Blood Count 18.7 Thou/mm3 (3.6-11.0)
[2025-08-20] MEDS: Heparin/D5w 25K 250 ML Ivpb 25,000 UNIT/250 ML BAG 15.1 UNIT IV (08:43)
[2025-08-20] MEDS: VIT B12/Vit C/FA (Nephrovite) TABLET 1 TAB PO (08:49)
[2025-08-20] MEDS: DOCUSATE SOD 100 MG CAPSULE PO (08:49)
[2025-08-20] MEDS: AMIODARONE HCL 200 MG TABLET PO ×2 (08:49→21:19)
[2025-08-20 09:18] LABS: Alanine Aminotransferase 22 U/L (10-49); Albumin, Serum 4.0 gm/dL (3.4-4.8); Albumin/Globulin Ratio 1.1 (1.2-2.2); Alkaline Phosphatase 89 U/L (46-116); Anion Gap 19 (7-16); Aspartate Amino Transferase 45 U/L (0-34); BUN/Creatinine Ratio 15 Ratio (12-20); Bilirubin,Total 0.3 mg/dL (0.3-1.2); Blood Urea Nitrogen 76 mg/dL (9-23); Calcium 9.4 mg/dL (8.3-10.6); Calcium (Corrected) 9.4 mg/dL (8.5-10.1); Carbon Dioxide 20.1 mMol/L (20.0-31.0); Chloride 97 mMol/L (98-107); Creatinine (Component) 5.2 mg/dL (0.6-1.3); Estimated Creatinine Clearance 14.3 mL/min (>60); Globulin 3.5 gm/dL (2.3-3.5); Glucose 113 mg/dL (74-106); Magnesium 2.5 mg/dL (1.6-2.6); Osmolality,Calculated 295 (275-295); Phosphorous 4.9 mg/dL (2.4-5.1); Potassium 5.6 mMol/L (3.4-5.1); Sodium 136 mMol/L (136-145); Total Protein 7.5 gm/dL (5.7-8.2); eGFR 9 See Note
[2025-08-20 11:05] LABS: Partial Thromboplastin Time 62.6 Seconds (22.0-36.0)
[2025-08-20] MEDS: ALBUTEROL INH 8 GM 2 PUFF INH (12:19)
[2025-08-20] MEDS: SOD POLYSTYRENE SULFON SUSP 15 GM/60 ML BTL PO (12:29)
[2025-08-20] MEDS: ACETAMINOPHEN 325 MG TABLET 650 MG PO (12:31)
--- NOTE | 2025-08-20 12:46 | PD.RESPRO ---
Documentation for date of: 08/20/25 Subjective Subjective Interval history: Patient seen and examined at bedside, no current complaints Blood pressure continues to remain soft, continue midodrine. Continue amiodarone, blood pressure still not permissible to start GDMT. Does have bilateral lower extremity edema, dialysis per nephrology. Exam Vital Signs Temp Pulse Resp BP Pulse Ox O2 Del Method O2 Flow Rate 97.6 F 78 20 119/78 97 Nasal Cannula 5 08/20/25 07:57 08/20/25 12:31 08/20/25 12:21 08/20/25 12:31 08/20/25 12:21 08/20/25 07:57 08/20/25 12:21 FiO2 92 08/18/25 11:46 Narrative Exam GENERAL: A&Ox3, no acute distress HEENT: mucous membranes moist, bilateral sclera anicteric, dialysis catheter noted. CARDIOVASCULAR: Irregularly irregular, S1/S2 present, no murmurs appreciated PULMONARY: clear to auscultation bilaterally, no rales/rhonchi/wheezes ABDOMINAL: soft, non-tender, non-distended, no rebound/guarding, bowel sounds present EXTREMITIES: moderate BLE pitting edema SKIN: warm and dry, intact, no rashes NEURO: CN II-XII grossly intact, alert, following commands, L sided motor deficits, hand and feet flexed sensation intact, no neglect Objective Labs 08/21/25 04:44 08/21/25 04:44 Labs: Laboratory Results - last 24 hr 08/19/25 08/20/25 08/20/25 19:18 02:45 07:00 WBC 18.7 H RBC 3.16 L Hgb 9.5 L Hct 30.7 L MCV 97 MCH 30.1 MCHC 30.9 L RDW Std Deviation 54.4 H Plt Count 259 D Neut % (Auto) 82 H Lymph % (Auto) 12 Walsh % (Auto) 5 Eos % (Auto) 1 Baso % (Auto) 1 Neut # (Auto) 15.3 H Lymph # (Auto) 2.2 Walsh # (Auto) 0.9 H Eos # (Auto) 0.2 Baso # (Auto) 0.1 Immature Gran # (Auto) 0.11 H Absolute Nucleated RBC 0.00 Immature Gran % 1 H Nucleated RBC % 0 APTT 24.8 77.2 H D Sodium 136 Potassium 5.6 H D Chloride 97 L Carbon Dioxide 20.1 Anion Gap 19 H BUN 76 H Creatinine 5.2 H* D Estim Creat Clear Calc 14.3 L eGFR 9 L* BUN/Creatinine Ratio 15 Glucose 113 H Calculated Osmolality 295 Calcium 9.4 Corrected Calcium 9.4 Phosphorus 4.9 Magnesium 2.5 Total Bilirubin 0.3 AST 45 H ALT 22 Alkaline Phosphatase 89 Total Protein 7.5 Albumin 4.0 D Globulin 3.5 Albumin/Globulin Ratio 1.1 L 08/20/25 09:25 WBC RBC Hgb Hct MCV MCH MCHC RDW Std Deviation Plt Count Neut % (Auto) Lymph % (Auto) Walsh % (Auto) Eos % (Auto) Baso % (Auto) Neut # (Auto) Lymph # (Auto) Walsh # (Auto) Eos # (Auto) Baso # (Auto) Immature Gran # (Auto) Absolute Nucleated RBC Immature Gran % Nucleated RBC % APTT 62.6 H D Sodium Potassium Chloride Carbon Dioxide Anion Gap BUN Creatinine Estim Creat Clear Calc eGFR BUN/Creatinine Ratio Glucose Calculated Osmolality Calcium Corrected Calcium Phosphorus Magnesium Total Bilirubin AST ALT Alkaline Phosphatase Total Protein Albumin Globulin Albumin/Globulin Ratio ABG Interpretation ABG results: 08/06/25 08/07/25 11:42 04:24 ABG pH 7.41 7.42 ABG pCO2 41 38 ABG pO2 96 71 L D ABG HCO3 26 25 ABG O2 Saturation 98 95 ABG Base Excess 1 0 Quality Measures Quality Measures none Assessment & Plan Assessment Current Active Medications: Generic Name Dose Route Start Last Admin Trade Name Freq PRN Reason Stop Dose Admin Acetaminophen 650 mg 08/06/25 15:58 08/20/25 12:31 Acetaminophen 325 Mg Tablet PO 09/05/25 15:57 650 mg Q6H PRN Administration Fever >100.4 or pain 1-3 Amiodarone HCl 200 mg 08/07/25 09:35 08/20/25 08:49 Amiodarone Hcl 200 Mg Tablet PO 09/06/25 09:34 200 mg BID RIANNA Administration Dextrose 25 ml 08/06/25 16:07 08/08/25 11:38 Dextrose 50%-Water Inj 50 Ml Syringe IV 09/05/25 16:06 25 ml Q15MIN PRN Administration BG 50-70 responsive npo pt Dextrose 50 ml 08/06/25 16:07 Dextrose 50%-Water Inj 50 Ml Syringe IV 09/05/25 16:06 Q15MIN PRN BG <50 OR BG <70 & pt unresponsive Divalproex Sodium 250 mg 08/19/25 15:30 08/20/25 05:19 Divalproex Sod Er 250 Mg Tashia (Non-Formulary) PO 09/18/25 15:29 250 mg TID RIANNA Administration Docusate Sodium 100 mg 08/07/25 09:00 08/20/25 08:49 Docusate Sod 100 Mg Capsule PO 09/06/25 08:59 100 mg QDAY RIANNA Administration Protocol Glucagon 1 mg 08/06/25 16:07 Glucagon Inj 1 Mg Vial IM Q15MIN PRN BG <70, and no IV access Heparin Sodium (Porcine) 2,600 unit 08/17/25 13:44 08/18/25 11:35 Heparin Sod Inj 1000 Unit/Ml Vial 10 Ml INDWELLCAT 08/23/25 13:43 2,600 unit X1 PRN Administration DIALYSIS Hydroxyzine HCl 25 mg 08/19/25 21:00 08/20/25 08:49 Hydroxyzine Hcl 25 Mg Tablet PO 09/18/25 20:59 25 mg BID RIANNA Administration Albumin Human 25 gm in 100 mls @ 100 mls/hr 08/18/25 09:13 08/18/25 10:02 Albuminex 25% Ivpb IV 100 mls/hr PRN PRN Administration DIALYSIS Heparin Sodium/Dextrose 25,000 unit in 250 mls @ 10 mls/hr 08/19/25 12:15 08/20/25 11:21 Heparin In D5w Ivpb IV 09/02/25 12:14 16 units/kg/hr .Q24H RIANNA 15.1 mls/hr Protocol Titration 10.596 UNITS/KG/HR Levothyroxine Sodium 50 mcg 08/08/25 06:00 08/20/25 05:18 Levothyroxine Sodium 25 Mcg Tablet PO 09/07/25 05:59 50 mcg ACBR RIANNA Administration Midodrine 10 mg 08/07/25 09:40 08/20/25 12:31 Midodrine 5 Mg Tablet PO 09/06/25 09:39 10 mg Q6HR RIANNA Administration Ondansetron HCl 4 mg 08/06/25 15:58 08/16/25 09:11 Ondansetron Inj 2 Mg/Ml Inj 2 Ml IVP 09/05/25 15:57 4 mg Q6H PRN Administration NAUSEA OR VOMITING Protocol Patiromer 8.4 gm 08/21/25 09:00 Patiromer Calcium 8.4 Gm Packet PO 08/21/25 09:01 X1 ONE Pharmacy Consult 1 each 08/11/25 09:00 Vancomycin Pharmacy To Dose 1 Each Each IV 09/10/25 08:59 QDAY PRN CONSULT Pharmacy Consult 1 each 08/11/25 08:54 Pharmacy Renal Dose Adjustment 1 Ea XX 09/10/25 08:53 PRN PRN CONSULT Ropinirole HCl 1 mg 08/19/25 21:00 08/20/25 08:49 Ropinirole Hcl 1 Mg Tablet PO 09/18/25 20:59 1 mg BID RIANNA Administration Vitamin B Complex/Vit C/Folic Acid 1 tab 08/08/25 16:30 08/20/25 08:49 Vit B12/Vit C/Fa (Nephrovite) Tablet PO 09/07/25 16:29 1 tab QDAY RIANNA Administration Plan Assessment and Plan: Summary: Ms. Elizondo is a 64-year-old female with past medical history of CVA, atrial fibrillation on Eliquis, HFrEF EF 15 to 20%, dilated cardiomyopathy, ESRD on hemodialysis Friday//Friday, hypothyroidism, iron deficiency anemia, nephrolithiasis and mood disorder who presented to [facility] emergency department on 08/06/2025, patient found to be lethargic and hypotensive with fever and was admitted to intensive care unit for distributive shock management. Further hospitalization course patient found to have infected dialysis catheter which was removed by interventional radiology, patient had temporary dialysis catheter placed. Post catheter exchange patient continues to be bacteremic and cardiology service consulted for JONES to rule out endocarditis. #Echodensity 1.5 x 0.8 cm at tip of venous catheter #Bacteremia #Rule out endocarditis Patient continues to have bacteremia post removal of dialysis catheter which was thought to be infected. Temporary dialysis catheter placed, latest blood cultures still positive for GPC. Infectious diseases following, per ID patient's likely source thought to be dialysis catheter. Patient continued to have bacteremia, patient initially refused JONES however eventually agreed to the procedure, JONES performed successful in 08/18/2025 Transesophageal echocardiogram 08/18/2025 shows Echodensity noted SVC and RA junction near the tip of the venous catheter measuring 1.5 x 0.8 cm. Cannot rule out vegetation versus small thrombus. No echo contrast/Definity at this institution to differentiate. There is no evidence of any valvular vegetation. No LA or ELZA thrombus. Bubble study negative for PFO or ASD. Left ventricular systolic function is severely reduced with visually estimated ejection fraction of 15-20%. Normal RV size and function. Moderate MR and moderate TR. Trace AI and trace PI. Systolic blunting in the pulmonary venous flow. Underlying etiology of the echodensity: Vegetation versus thrombus, Less likely thrombus as patient has been on eliquis. Recommend continuing antibiotics per infectious disease recommendations and patient already on anticoagulation. Can consider transesophageal echocardiogram after antibiotic treatment completion for 6 weeks if patient is still bacteremic to assess the echodensity again. #Heart failure with severely reduced ejection fraction, EF 15 to 20% #Dilated cardiomyopathy Patient has history of severely reduced ejection fraction heart failure. Has been seen in the past, well-known to practice. Recommended GDMT in the past however not noted on patient's med reconciliation. Patient has significant hypotension on midodrine, unable to tolerate GDMT Transthoracic echo 08/07/2025 shows 1. Left ventricle size is moderately enlarged and severe global hypokenesis and severe systolic dysfunction.. Estimated ejection fraction is 15-20%. 2. Right ventricle chamber size is normal and systolic function is mildly reduced. Estimated RVSP is 35-40 mmHg. Mild to moderate pulmonary hypertension. 3. Moderate MR, mild to moderate TR and trace AI. 4. The left atrium is severely enlarged. The right atrium is mildly enlarged. 5. Not well visualized IVC with estimated RA pressure 8 mmHg. Recommendations: - Continue hemodialysis to maintain euvolemia status - Introduce GDMT as tolerated, continue midodrine - Needs to follow-up with primary parent aide outpatient. #Atrial fibrillation, by history Patient has history of atrial fibrillation on Eliquis CHADSVASC score 4, 4.8% stroke risk per year HASBLED 3 EKG 08/05/2025 shows A-fib with RVR ? Continue amiodarone 200 mg p.o. twice daily ? We recommend heparin gtt. if no contraindications and procedures are planned and Eliquis is contraindicated. ? Discharge on Eliquis ? Keep potassium greater than 4 and magnesium greater than 2 at all times #NSTEMI type II secondary to demand ischemia Patient denies any chest pain troponin initially elevated in setting of distributive shock #ESRD on hemodialysis #Electrolyte abnormalities #Hyperphosphatemia #Pressure ulcers #Hypothyroidism #History of CVA, residual left-sided hemiplegia ?Management per primary team Thank you for the consult and allowing to participate in the care of the patient. Cardiology will continue to follow. Case discussed with Attending Physician Dr. Bishnu Williamson MD Internal Medicine PGY-2 Disclaimer: This note was dictated by speech recognition. Minor errors in peoplesoft financial developer may be present due to voice recognition software. Attending Provider Attestation/Addendum I have personally seen and examined the patient separately on the above date of service and discussed the plan of care with the resident. I reviewed the resident Dr. Kimani Williamson consultation progress note and agree with the resident findings and plan in the note above and have also edited the documentation to reflect my findings and plan. Bishnu Barcenas M.D. Interventional Cardiology
--- NOTE | 2025-08-20 13:48 | ESPR_ITS ---
<Statement entered by Jonatan Kimble MD - 08/20/25 16:47> I saw and examined patient personally and supervised PGY 1 resident, Dr. Saldaña with formulating a management plan. I agree with the documentation with the exceptions as listed below. This a.m. patient's endorsed generalized weakness. EKG showed atrial fibrillation, rate 83 and prolonged QTc 540. Labs were significant for Hb 9.5, WBC 18.7 K5.6 BUN 76, CR 5.2, anion gap 19. Blood cultures from 08/19 showed no bacterial growth x 24 hours preliminary. Currently on vancomycin IV for MRSA bacteremia and possible valvular vegetation. Also on heparin infusion for atrial fibrillation. Regards to patient's hemodialysis, Dr Landry was consulted. She recommended to place a temporary dialysis catheter on 08/21 for hemodialysis. Patient has a potassium level of 5.6 accompanied with symptoms of generalized weakness and a prolonged QTc of 541 her EKG. Patient's last session of dialysis was on 08/18 and she currently does not have venous access. Insulin 5 mg IV x 1, calcium gluconate 1 g IV x 1, D50 50 mL IV x 1 and albuterol inhaler were ordered. Also gave Kayexalate 15 g p.o. x 1. Repeat renal panel was ordered for 3:45 PM to monitor potassium and bicarbonate. Started patient on Bicitra 30 mL p.o. x 1 for metabolic acidosis. Plan of care discussed with Attending Dr. Edmond Kimble MD PGY 2 Disclaimer: This note was dictated by speech recognition. Minor errors in ocean freight forwarder may be present due to voice recognition software. Documentation for date of: 08/20/25 Subjective Subjective Interval history: Patient seen and examined at bedside; no acute events overnight. Patient states feeling okay, and is cooperative during the interview and examination. Patient had declined MRI study yesterday. Overnight while lying in her bed she was engaged in an argument with patient next-door. Patient received olanzepine 2.5mg x1 overnight for anxiety. JONES shows potential vegation vs small thrombus. Spoke to Dr Landry, who recommends HD session tomorrow after instillation of a fresh central line. 08/20: calcium gluconate 10% ordered at 1023, Kayexalate 15 mg at 1023, albuterol inhaler at 1023, and Insulin regular 5 unit IV ordered at 1209, and according to medication administration, calcium gluconate was given at 1410, Kayexalate at 1229, albuterol at 1219, and the insulin regular at 1415. Exam Vital Signs Temp Pulse Resp BP Pulse Ox O2 Del Method O2 Flow Rate 97.1 F 78 20 119/78 97 Nasal Cannula 5 08/20/25 11:40 08/20/25 12:31 08/20/25 12:21 08/20/25 12:31 08/20/25 12:21 08/20/25 11:40 08/20/25 12:21 FiO2 92 08/18/25 11:46 Narrative Exam GENERAL: A&Ox3, no acute distress HEENT: mucous membranes moist, bilateral sclera anicteric, dialysis catheter noted. CARDIOVASCULAR: Irregularly irregular, S1/S2 present, no murmurs appreciated PULMONARY: clear to auscultation bilaterally, no rales/rhonchi/wheezes ABDOMINAL: soft, non-tender, non-distended, no rebound/guarding, bowel sounds present EXTREMITIES: trace BLE pitting edema SKIN: warm and dry, intact, no rashes NEURO: CN II-XII grossly intact, alert, following commands, L sided motor deficits, hand and feet flexed sensation intact, no neglect Objective Labs 08/20/25 07:00 08/20/25 07:00 Labs: Laboratory Results - last 24 hr 08/19/25 08/20/25 08/20/25 19:18 02:45 07:00 WBC 18.7 H RBC 3.16 L Hgb 9.5 L Hct 30.7 L MCV 97 MCH 30.1 MCHC 30.9 L RDW Std Deviation 54.4 H Plt Count 259 D Neut % (Auto) 82 H Lymph % (Auto) 12 [place] % (Auto) 5 Eos % (Auto) 1 Baso % (Auto) 1 Neut # (Auto) 15.3 H Lymph # (Auto) 2.2 [facility] # (Auto) 0.9 H Eos # (Auto) 0.2 Baso # (Auto) 0.1 Immature Gran # (Auto) 0.11 H Absolute Nucleated RBC 0.00 Immature Gran % 1 H Nucleated RBC % 0 APTT 24.8 77.2 H D Sodium 136 Potassium 5.6 H D Chloride 97 L Carbon Dioxide 20.1 Anion Gap 19 H BUN 76 H Creatinine 5.2 H* D Estim Creat Clear Calc 14.3 L eGFR 9 L* BUN/Creatinine Ratio 15 Glucose 113 H Calculated Osmolality 295 Calcium 9.4 Corrected Calcium 9.4 Phosphorus 4.9 Magnesium 2.5 Total Bilirubin 0.3 AST 45 H ALT 22 Alkaline Phosphatase 89 Total Protein 7.5 Albumin 4.0 D Globulin 3.5 Albumin/Globulin Ratio 1.1 L 08/20/25 09:25 WBC RBC Hgb Hct MCV MCH MCHC RDW Std Deviation Plt Count Neut % (Auto) Lymph % (Auto) [facility] % (Auto) Eos % (Auto) Baso % (Auto) Neut # (Auto) Lymph # (Auto) [facility] # (Auto) Eos # (Auto) Baso # (Auto) Immature Gran # (Auto) Absolute Nucleated RBC Immature Gran % Nucleated RBC % APTT 62.6 H D Sodium Potassium Chloride Carbon Dioxide Anion Gap BUN Creatinine Estim Creat Clear Calc eGFR BUN/Creatinine Ratio Glucose Calculated Osmolality Calcium Corrected Calcium Phosphorus Magnesium Total Bilirubin AST ALT Alkaline Phosphatase Total Protein Albumin Globulin Albumin/Globulin Ratio ABG Interpretation ABG results: 08/06/25 08/07/25 11:42 04:24 ABG pH 7.41 7.42 ABG pCO2 41 38 ABG pO2 96 71 L D ABG HCO3 26 25 ABG O2 Saturation 98 95 ABG Base Excess 1 0 Quality Measures Quality Measures none Assessment & Plan Assessment Current Active Medications: Generic Name Dose Route Start Last Admin Trade Name Freq PRN Reason Stop Dose Admin Acetaminophen 650 mg 08/06/25 15:58 08/20/25 12:31 Acetaminophen 325 Mg Tablet PO 09/05/25 15:57 650 mg Q6H PRN Administration Fever >100.4 or pain 1-3 Amiodarone HCl 200 mg 08/07/25 09:35 08/20/25 08:49 Amiodarone Hcl 200 Mg Tablet PO 09/06/25 09:34 200 mg BID RIANNA Administration Dextrose 25 ml 08/06/25 16:07 08/08/25 11:38 Dextrose 50%-Water Inj 50 Ml Syringe IV 09/05/25 16:06 25 ml Q15MIN PRN Administration BG 50-70 responsive npo pt Dextrose 50 ml 08/06/25 16:07 Dextrose 50%-Water Inj 50 Ml Syringe IV 09/05/25 16:06 Q15MIN PRN BG <50 OR BG <70 & pt unresponsive Divalproex Sodium 250 mg 08/20/25 14:00 Divalproex Sod Ec 125 Mg Tabec PO 09/19/25 13:59 TID RIANNA Docusate Sodium 100 mg 08/07/25 09:00 08/20/25 08:49 Docusate Sod 100 Mg Capsule PO 09/06/25 08:59 100 mg QDAY RIANNA Administration Protocol Glucagon 1 mg 08/06/25 16:07 Glucagon Inj 1 Mg Vial IM Q15MIN PRN BG <70, and no IV access Heparin Sodium (Porcine) 2,600 unit 08/17/25 13:44 08/18/25 11:35 Heparin Sod Inj 1000 Unit/Ml Vial 10 Ml INDWELLCAT 08/23/25 13:43 2,600 unit X1 PRN Administration DIALYSIS Hydroxyzine HCl 25 mg 08/19/25 21:00 08/20/25 08:49 Hydroxyzine Hcl 25 Mg Tablet PO 09/18/25 20:59 25 mg BID RIANNA Administration Albumin Human 25 gm in 100 mls @ 100 mls/hr 08/18/25 09:13 08/18/25 10:02 Albuminex 25% Ivpb IV 100 mls/hr PRN PRN Administration DIALYSIS Heparin Sodium/Dextrose 25,000 unit in 250 mls @ 10 mls/hr 08/19/25 12:15 08/20/25 11:21 Heparin In D5w Ivpb IV 09/02/25 12:14 16 units/kg/hr .Q24H RIANNA 15.1 mls/hr Protocol Titration 10.596 UNITS/KG/HR Levothyroxine Sodium 50 mcg 08/08/25 06:00 08/20/25 05:18 Levothyroxine Sodium 25 Mcg Tablet PO 09/07/25 05:59 50 mcg ACBR RIANNA Administration Midodrine 10 mg 08/07/25 09:40 08/20/25 12:31 Midodrine 5 Mg Tablet PO 09/06/25 09:39 10 mg Q6HR RIANNA Administration Ondansetron HCl 4 mg 08/06/25 15:58 08/16/25 09:11 Ondansetron Inj 2 Mg/Ml Inj 2 Ml IVP 09/05/25 15:57 4 mg Q6H PRN Administration NAUSEA OR VOMITING Protocol Patiromer 8.4 gm 08/21/25 09:00 Patiromer Calcium 8.4 Gm Packet PO 08/21/25 09:01 X1 ONE Pharmacy Consult 1 each 08/11/25 09:00 Vancomycin Pharmacy To Dose 1 Each Each IV 09/10/25 08:59 QDAY PRN CONSULT Pharmacy Consult 1 each 08/11/25 08:54 Pharmacy Renal Dose Adjustment 1 Ea XX 09/10/25 08:53 PRN PRN CONSULT Ropinirole HCl 1 mg 08/19/25 21:00 08/20/25 08:49 Ropinirole Hcl 1 Mg Tablet PO 09/18/25 20:59 1 mg BID RIANNA Administration Vitamin B Complex/Vit C/Folic Acid 1 tab 08/08/25 16:30 08/20/25 08:49 Vit B12/Vit C/Fa (Nephrovite) Tablet PO 09/07/25 16:29 1 tab QDAY RIANNA Administration Plan 64-year-old female with PMH of 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 Landry, and history of staghorn calculi, was transferred to ED from a nursing facility with lethargy, hypotension, and fever. Patient admitted to ICU for sepsis workup and downgraded to floors on 08/07/25. #Septic shock - Resolved #DANO secondary to dialysis catheter (MRSA) #Hospital-associated pneumonia #NSTEMI type II 2/2 blood cultures 08/06/25 positive for GPCs 08/06/25 1/2 BCx + MRSA 08/06/25 UCx pending 08/06/25- Troponin peaked 1.423, then fell to 1.175 08/07/25 1/2 BCx +MRSA 08/08/25 2/2 BCx MRSA in 2/2; catheter tip culture + MRSA 08/09/25 2/2 BCx +same MRSA as on 08/08 08/11 2/2 Bcx +MRSA 08/13 2/2 Bcx +GPC 1/2 +MRSA 1/2 08/15 Bcx 1/2 +MRSA 08/17 Bcx 1/2 +GPC WBC 20.0 today 08/20: calcium gluconate 10% ordered at 1023, Kayexalate 15 mg at 1023, albuterol inhaler at 1023, and Insulin regular 5 unit IV ordered at 1209, and according to medication administration, calcium gluconate was given at 1410, Kayexalate at 1229, albuterol at 1219, and the insulin regular at 1415. Plan: - Insert new temporary catheter for HD over weekend and use it again for another HD session on Friday IV vancomycin (08/11 - Remove old dialysis catheter 08/08/25; temporary catheter placed 08/10/25; Plan to place permanent catheter when 48 hours of negative cultures achieved. Removed temporary catheter 08/13/25 ID consulted, thank you for recs- vancomycin alone, B12 tablet daily, catheter needs 48h negative cultures Will get MRI lumbar spine w/contrast to check for epidural abscess Obtain repeat BCx 08/19 #End-stage renal disease on dialysis (T/T/F) #Electrolyte abnormalities #Hyperphosphatemia #Hyperkalemia Plan: - insulin IV 5u, dextrose 50% IV 25mL, Albuterol 0.5mL x2puff, Kayexalate, and bicitra Po 30ml x1 Hemodialysis (T/T/F) Avoid nephrotoxic agents, renally dose medicines Give midodrine after dialysis if BP low #Agitation #Suicidal ideation Patient was very agitated today wanting to go home AMA; expressed suicidal ideation to myself and attending. Plan: Placed on 1 to 1 sitter Resumed home divalproex, ropinirole #A-fib [id number]: 5 Patient has history of A-fib. Plan: ? Monitor EKG - Amiodarone 200 BID - K > 4, Mg > 2 #HFrEF (15-20%), stable #Vegetation vs thrombus Longstanding hx. And previously patient has refused cardiac cath, continues to refuse. 08-07-25 Echo shows LV size moderately enlarged and severe global hypokinesis and severe systolic dysfunction estimated EF 15 to 20%. RV chamber size normal systolic function mildly reduced, RVSP 35 to 40 mmHg, mild to moderate pulmonary hypertension, moderate MR, mild to moderate TR and trace AI, LA severely enlarged, RA mildly enlarged JONES showed vegetation vs thrombus near SVC/RA junction; patient placed on heparin protocol Plan: ? Caution with fluids - Heparin protocol - Keep K>4 and Mg>2 at all times #Schizophrenia Plan: Restarted home divalproex, hydroxyzine, ropinirole #Pressure ulcers Sacral and decubitous ulcer and lateral leg ulcers. Do not appear cellulitic, more granulotamous. Ankle has a purulent base with oozing without cellultic changes. Plan: Continue to monitor, wound care referral placed #Hypothyroidism Patient has history of hypothyroidism. Plan: Restart home levothyroxine 50mcg #Hx of CVA, residual L-sided hemiplegia Stable Disposition: Med-Surg DVT prophylaxis: heparin 5000u q8h GI prophylaxis: none Diet: Renal, 1L fluid restriction Lines: PIV CODE STATUS: Full code This case was discussed with my attending physician, Dr. Pruitt, and senior resident, Dr. Kimble. Kristin saldaña, DO PGY 1 Attending Provider Attestation/Addendum I have seen and examined the patient. I was physically present for the horn portions of the services provided including history, physical exam, diagnosis, treatment plans and orders. I agree with assessment and plan of care as documented by residents. Even though this this note was carefully revised there may still be minor errors in ocean freight forwarder due to voice recognition software. Anahi Pruitt MD
[2025-08-20] MEDS: DIVALPROEX SOD EC 125 MG TABEC 250 MG PO ×2 (13:53→21:19)
--- NOTE | 2025-08-20 13:58 | EKG_ITS ---
[facility] Test Date: 2025-08-20 Pat Name: RUBÉN VIVAR [facility] Netbackup Engineer: YASMINCHASE : [id number] Requested By: Kristin Saldaña Order Number: [id number] Reading MD: Kristin Saldaña Measurements Intervals [place] Rate: 83 P: NM: QRS: -28 QRSD: 158 T: 145 QT: 458 QTc: 540 Interpretive Statements ATRIAL FIBRILLATION LEFT BUNDLE BRANCH BLOCK Compared to ECG 08/06/2025 09:30:08 Left-axis deviation no longer present /store/S0/[id number]
[2025-08-20] MEDS: INSULIN HUM REGULAR 1 UNIT/0.01 ML (PER UNIT) 5 UNIT IV (14:08)
[2025-08-20] MEDS: DEXTROSE 50%-WATER INJ 50 ML SYRINGE 25 ML IVP (14:09)
[2025-08-20] MEDS: CALCIUM GLUCONATE 10% INJ 1 GM/10 ML VIAL IV (14:10)
--- NOTE | 2025-08-20 17:11 | PC.NURSE ---
Patient is a hard stick. anaesthetic technician was unable to collect 1545 PTT sample and will send another apprentice instrument technician to attempt the draw
[2025-08-20] MEDS: CITRIC ACID/SODIUM CITR 15 ML UDC (BICITRA) 30 ML PO (17:12)
[2025-08-20 17:40] LABS: Albumin, Serum 4.0 gm/dL (3.4-4.8); Anion Gap 15 (7-16); BUN/Creatinine Ratio 14 Ratio (12-20); Blood Urea Nitrogen 75 mg/dL (9-23); Calcium 9.3 mg/dL (8.3-10.6); Calcium (Corrected) 9.3 mg/dL (8.5-10.1); Carbon Dioxide 24.7 mMol/L (20.0-31.0); Chloride 98 mMol/L (98-107); Creatinine (Component) 5.4 mg/dL (0.6-1.3); Estimated Creatinine Clearance 13.7 mL/min (>60); Glucose 87 mg/dL (74-106); Osmolality,Calculated 296 (275-295); Phosphorous 5.3 mg/dL (2.4-5.1); Potassium 4.8 mMol/L (3.4-5.1); Sodium 138 mMol/L (136-145); eGFR 8 See Note
[2025-08-20 17:50] LABS: Partial Thromboplastin Time 61.9 Seconds (22.0-36.0)
[2025-08-21] VITALS (14 sets, daily range): BP systolic 95–124; BP diastolic 40–88; PULSE 70–97; RESP 16–19; TEMP 35.8–36.4; O2SAT 94–99; BMI 28.1
[2025-08-21] MEDS: MIDODRINE 5 MG TABLET 10 MG PO ×3 (00:02→15:21)
[2025-08-21] MEDS: Heparin/D5w 25K 250 ML Ivpb 25,000 UNIT/250 ML BAG 15.1 UNIT IV (04:44)
[2025-08-21] MEDS: LEVOTHYROXINE SODIUM 25 MCG TABLET 50 MCG PO (05:38)
[2025-08-21] MEDS: DIVALPROEX SOD EC 125 MG TABEC 250 MG PO ×3 (05:38→21:07)
[2025-08-21 06:14] LABS: Basophils # (Auto) 0.1 Thou/mm3 (0.0-0.2); Basophils % (Auto) 1 % (0-2.5); Eosinophils # (Auto) 0.2 Thou/mm3 (0.0-0.5); Eosinophils % (Auto) 2 % (0-10); Hematocrit 28.1 % (36.0-46.0); Hemoglobin 8.9 g/dL (12.0-16.0); Immature Granulocytes Auto 0.09 Thou/mm3 (0.00-0.00); Lymphocytes # (Auto) 2.3 Thou/mm3 (1.0-4.8); Lymphocytes % (Auto) 18 % (10-50); Mean Corpuscular HGB Conc 31.7 g/dl (31.0-37.0); Mean Corpuscular Hemoglobin 30.4 pg (25.0-35.0); Mean Corpuscular Volume 96 fL (80-100); Monocytes # (Auto) 0.8 Thou/mm3 (0.0-0.8); Monocytes % (Auto) 6 % (0-12); Neutrophils # (Auto) 9.6 Thou/mm3 (1.8-7.7); Neutrophils % (Auto) 73 % (37-80); Nucleated Red Blood Cell # 0.00 Thou/mm3 (0.00-0.00); Nucleated Red Blood Cell % 0 /100 WBC (0); Platelet Count 320 Thou/mm3 (140-440); RDW Standard Deviation 55.1 fL (36.4-46.3); Red Blood Count 2.93 Miln/mm3 (4.00-5.20); White Blood Count 13.2 Thou/mm3 (3.6-11.0)
[2025-08-21 07:08] LABS: INR 1.0 (0.9-1.3); Partial Thromboplastin Time 50.7 Seconds (22.0-36.0); Prothrombin Time 10.8 Seconds (9.0-12.2)
[2025-08-21 07:50] LABS: Alanine Aminotransferase 24 U/L (10-49); Albumin, Serum 3.5 gm/dL (3.4-4.8); Albumin/Globulin Ratio 0.9 (1.2-2.2); Alkaline Phosphatase 86 U/L (46-116); Anion Gap 19 (7-16); Aspartate Amino Transferase 23 U/L (0-34); BUN/Creatinine Ratio 14 Ratio (12-20); Bilirubin,Total 0.2 mg/dL (0.3-1.2); Blood Urea Nitrogen 81 mg/dL (9-23); Calcium 9.6 mg/dL (8.3-10.6); Calcium (Corrected) 10.0 mg/dL (8.5-10.1); Carbon Dioxide 25.3 mMol/L (20.0-31.0); Chloride 95 mMol/L (98-107); Creatinine (Component) 5.7 mg/dL (0.6-1.3); Estimated Creatinine Clearance 13.0 mL/min (>60); Globulin 3.7 gm/dL (2.3-3.5); Glucose 84 mg/dL (74-106); Magnesium 2.7 mg/dL (1.6-2.6); Osmolality,Calculated 300 (275-295); Phosphorous 5.7 mg/dL (2.4-5.1); Potassium 4.5 mMol/L (3.4-5.1); Sodium 139 mMol/L (136-145); Total Protein 7.2 gm/dL (5.7-8.2); eGFR 8 See Note
[2025-08-21] MEDS: DOCUSATE SOD 100 MG CAPSULE PO (08:58)
[2025-08-21] MEDS: VIT B12/Vit C/FA (Nephrovite) TABLET 1 TAB PO (08:58)
[2025-08-21] MEDS: AMIODARONE HCL 200 MG TABLET PO ×2 (08:58→21:08)
[2025-08-21] MEDS: PATIROMER CALCIUM 8.4 GM PACKET PO (08:59)
[2025-08-21 10:00] LABS: Vancomycin,Random 18.8 mcg/mL
--- NOTE | 2025-08-21 12:40 | ESPR_ITS ---
Documentation for date of: 08/21/25 Subjective Subjective Interval history: Patient seen and examined at bedside; no acute events overnight. Blood cultures are negative at 48 hours; thus the 6 week timeframe for vancomycin will start today. Also, per Dr. Landry's recommendations, IR will place a permanent dialysis catheter tomorrow. Exam Vital Signs Temp Pulse Resp BP Pulse Ox O2 Del Method O2 Flow Rate 97.5 F 77 18 105/54 L 98 Nasal Cannula 3 08/21/25 08:00 08/21/25 09:00 08/21/25 09:00 08/21/25 08:58 08/21/25 09:00 08/21/25 08:00 08/21/25 09:00 FiO2 92 08/18/25 11:46 Narrative Exam GENERAL: A&Ox3, no acute distress HEENT: mucous membranes moist, bilateral sclera anicteric, dialysis catheter noted. CARDIOVASCULAR: Irregularly irregular, S1/S2 present, no murmurs appreciated PULMONARY: clear to auscultation bilaterally, no rales/rhonchi/wheezes ABDOMINAL: soft, non-tender, non-distended, no rebound/guarding, bowel sounds present EXTREMITIES: trace BLE pitting edema SKIN: warm and dry, intact, no rashes NEURO: CN II-XII grossly intact, alert, following commands, L sided motor deficits, hand and feet flexed sensation intact, no neglect Objective Labs 08/21/25 04:44 08/21/25 04:44 Labs: Laboratory Results - last 24 hr 08/20/25 08/21/25 17:10 04:44 WBC 13.2 H D RBC 2.93 L Hgb 8.9 L Hct 28.1 L MCV 96 MCH 30.4 MCHC 31.7 RDW Std Deviation 55.1 H Plt Count 320 D Neut % (Auto) 73 Lymph % (Auto) 18 [place] % (Auto) 6 Eos % (Auto) 2 Baso % (Auto) 1 Neut # (Auto) 9.6 H Lymph # (Auto) 2.3 [place] # (Auto) 0.8 Eos # (Auto) 0.2 Baso # (Auto) 0.1 Immature Gran # (Auto) 0.09 H Absolute Nucleated RBC 0.00 Immature Gran % 1 H Nucleated RBC % 0 PT 10.8 INR 1.0 APTT 61.9 H 50.7 H D Sodium 138 139 Potassium 4.8 D 4.5 Chloride 98 95 L Carbon Dioxide 24.7 25.3 Anion Gap 15 19 H BUN 75 H 81 H Creatinine 5.4 H* 5.7 H* Estim Creat Clear Calc 13.7 L 13.0 L eGFR 8 L* 8 L* BUN/Creatinine Ratio 14 14 Glucose 87 84 Calculated Osmolality 296 H 300 H Calcium 9.3 9.6 Corrected Calcium 9.3 10.0 Phosphorus 5.3 H 5.7 H Magnesium 2.7 H Total Bilirubin 0.2 L AST 23 ALT 24 Alkaline Phosphatase 86 Total Protein 7.2 Albumin 4.0 3.5 D Globulin 3.7 H Albumin/Globulin Ratio 0.9 L Random Vancomycin 18.8 ABG Interpretation ABG results: 08/06/25 08/07/25 11:42 04:24 ABG pH 7.41 7.42 ABG pCO2 41 38 ABG pO2 96 71 L D ABG HCO3 26 25 ABG O2 Saturation 98 95 ABG Base Excess 1 0 Quality Measures Quality Measures none Assessment & Plan Assessment Current Active Medications: Generic Name Dose Route Start Last Admin Trade Name Freq PRN Reason Stop Dose Admin Acetaminophen 650 mg 08/06/25 15:58 08/20/25 12:31 Acetaminophen 325 Mg Tablet PO 09/05/25 15:57 650 mg Q6H PRN Administration Fever >100.4 or pain 1-3 Amiodarone HCl 200 mg 08/07/25 09:35 08/21/25 08:58 Amiodarone Hcl 200 Mg Tablet PO 09/06/25 09:34 200 mg BID RIANNA Administration Dextrose 25 ml 08/06/25 16:07 08/08/25 11:38 Dextrose 50%-Water Inj 50 Ml Syringe IV 09/05/25 16:06 25 ml Q15MIN PRN Administration BG 50-70 responsive npo pt Dextrose 50 ml 08/06/25 16:07 Dextrose 50%-Water Inj 50 Ml Syringe IV 09/05/25 16:06 Q15MIN PRN BG <50 OR BG <70 & pt unresponsive Divalproex Sodium 250 mg 08/20/25 14:00 08/21/25 05:38 Divalproex Sod Ec 125 Mg Tabec PO 09/19/25 13:59 250 mg TID RIANNA Administration Docusate Sodium 100 mg 08/07/25 09:00 08/21/25 08:58 Docusate Sod 100 Mg Capsule PO 09/06/25 08:59 100 mg QDAY RIANNA Administration Protocol Glucagon 1 mg 08/06/25 16:07 Glucagon Inj 1 Mg Vial IM Q15MIN PRN BG <70, and no IV access Heparin Sodium (Porcine) 2,600 unit 08/17/25 13:44 08/18/25 11:35 Heparin Sod Inj 1000 Unit/Ml Vial 10 Ml INDWELLCAT 08/23/25 13:43 2,600 unit On Hold: 08/21/25 07:30 X1 PRN Administration DIALYSIS Hydroxyzine HCl 25 mg 08/19/25 21:00 08/21/25 08:58 Hydroxyzine Hcl 25 Mg Tablet PO 09/18/25 20:59 25 mg BID RIANNA Administration Albumin Human 25 gm in 100 mls @ 100 mls/hr 08/18/25 09:13 08/18/25 10:02 Albuminex 25% Ivpb IV 100 mls/hr PRN PRN Administration DIALYSIS Heparin Sodium/Dextrose 25,000 unit in 250 mls @ 10 mls/hr 08/19/25 12:15 08/21/25 07:21 Heparin In D5w Ivpb IV 09/02/25 12:14 16 units/kg/hr .Q24H RIANNA 15.1 mls/hr Protocol Titration 10.596 UNITS/KG/HR Levothyroxine Sodium 50 mcg 08/08/25 06:00 08/21/25 05:38 Levothyroxine Sodium 25 Mcg Tablet PO 09/07/25 05:59 50 mcg ACBR RIANNA Administration Midodrine 10 mg 08/07/25 09:40 08/21/25 05:38 Midodrine 5 Mg Tablet PO 09/06/25 09:39 10 mg Q6HR RIANNA Administration Ondansetron HCl 4 mg 08/06/25 15:58 08/16/25 09:11 Ondansetron Inj 2 Mg/Ml Inj 2 Ml IVP 09/05/25 15:57 4 mg Q6H PRN Administration NAUSEA OR VOMITING Protocol Pharmacy Consult 1 each 08/11/25 09:00 Vancomycin Pharmacy To Dose 1 Each Each IV 09/10/25 08:59 QDAY PRN CONSULT Pharmacy Consult 1 each 08/11/25 08:54 Pharmacy Renal Dose Adjustment 1 Ea XX 09/10/25 08:53 PRN PRN CONSULT Ropinirole HCl 1 mg 08/19/25 21:00 08/21/25 08:58 Ropinirole Hcl 1 Mg Tablet PO 09/18/25 20:59 1 mg BID RIANNA Administration Vitamin B Complex/Vit C/Folic Acid 1 tab 08/08/25 16:30 08/21/25 08:58 Vit B12/Vit C/Fa (Nephrovite) Tablet PO 09/07/25 16:29 1 tab QDAY RIANNA Administration Plan 64-year-old female with PMH of 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 Landry, and history of staghorn calculi, was transferred to ED from a nursing facility with lethargy, hypotension, and fever. Patient admitted to ICU for sepsis workup and downgraded to floors on 08/07/25. #MRSA Bacteremia secondary to dialysis catheter / blood cultures 08/06/25 positive for GPCs 08/06/25 1/2 BCx + MRSA 08/15 Bcx 1/2 +MRSA 08/17 Bcx 1/2 +GPC 08/19 Bcx - for growth @ 48hrs WBC 13.2 today 08/21: Blood cultures are negative at 48 hours; 6 week time frame for vancomycin will start today. Plan: - Insert new permanent catheter on Friday due to negative cultures IV vancomycin (08/11 - ); 1.5g after each HD session with vanco troph weekly (08/21/25 - 10/02/25). Repeat JONES as outpatient with registered pharmacy technician Dr. Barcenas in 6 weeks. ID consulted, thank you for recs- vancomycin alone, B12 tablet daily, catheter needs 48h negative cultures MRI lumbar spine w/contrast was ordered to r/o osteomyelitis but pt refused. #End-stage renal disease on dialysis (T/T/F) #Electrolyte abnormalities #Hyperphosphatemia #Hyperkalemia Plan: - insulin IV 5u, dextrose 50% IV 25mL, Albuterol 0.5mL x2puff, Kayexalate, and bicitra Po 30ml x1 Hemodialysis (T/T/F) Avoid nephrotoxic agents, renally dose medicines Give midodrine after dialysis if BP low #Agitation #Suicidal ideation, resolved Patient was very agitated today wanting to go home AMA; expressed suicidal ideation to myself and attending. Plan: Resumed home divalproex, ropinirole #A-fib [id number]: 5 Patient has history of A-fib. Plan: ? Monitor EKG - Amiodarone 200 BID - K > 4, Mg > 2 - Pt on heparin drip #HFrEF (15-20%), stable #Vegetation vs thrombus Longstanding hx. And previously patient has refused cardiac cath, continues to refuse. 08-07-25 Echo shows LV size moderately enlarged and severe global hypokinesis and severe systolic dysfunction estimated EF 15 to 20%. RV chamber size normal systolic function mildly reduced, RVSP 35 to 40 mmHg, mild to moderate pulmonary hypertension, moderate MR, mild to moderate TR and trace AI, LA severely enlarged, RA mildly enlarged JONES showed vegetation vs thrombus near SVC/RA junction; patient placed on heparin protocol Plan: ? Caution with fluids - Keep K>4 and Mg>2 at all times #Schizophrenia Plan: On home divalproex, hydroxyzine, ropinirole #Pressure ulcers Sacral and decubitous ulcer and lateral leg ulcers. Do not appear cellulitic, more granulotamous. Ankle has a purulent base with oozing without cellultic changes. Plan: Continue to monitor, wound care referral placed #Hypothyroidism Patient has history of hypothyroidism. Plan: On home levothyroxine 50mcg #Hx of CVA, residual L-sided hemiplegia Stable #Septic shock - Resolved #Hospital-associated pneumonia, resolved #NSTEMI type II, resolved Disposition: Med-Surg DVT prophylaxis: heparin drip GI prophylaxis: none Diet: Renal, 1L fluid restriction Lines: PIV CODE STATUS: Full code This case was discussed with my attending physician, Dr. Pruitt, and senior resident, Dr. Freeman. Rom Evans, PGY1 Senior Resident Attestation: The patient reported doing well this morning. Her blood culture came back finally negative after 48 hours. We will get her permanent hemodialysis catheter tomorrow morning, and will get 6 weeks of vancomycin IV, 1.5g after each HD session with diego marques weekly. Repeat JONES as outpatient with registered pharmacy technician Dr. Barcenas in 6 weeks. I discussed with and supervised the internal audit manager physician involved in the care of this patient. I personally saw and examined the patient and discussed the assessment and plan with the entire medicine team, including my attending. I agree with the assessment and plan as documented above. Lucian Freeman MD PGY3 Internal Medicine Attending Provider Attestation/Addendum I have seen and examined the patient. I was physically present for the horn portions of the services provided including history, physical exam, diagnosis, treatment plans and orders. I agree with assessment and plan of care as documented by residents. Even though this this note was carefully revised there may still be minor errors in glass finisher due to voice recognition software. Anahi Pruitt MD
--- NOTE | 2025-08-21 14:02 | ESPR_ITS ---
Documentation for date of: 08/21/25 Subjective Subjective Interval history: Patient seen and examined at bedside, no current complaints Blood pressure continues to remain soft, continue midodrine. Continue amiodarone, blood pressure still not permissible to start GDMT. Does have bilateral lower extremity edema, dialysis per nephrology. Exam Vital Signs Temp Pulse Resp BP Pulse Ox O2 Del Method O2 Flow Rate 97.5 F 77 18 105/54 L 98 Nasal Cannula 3 08/21/25 08:00 08/21/25 09:00 08/21/25 09:00 08/21/25 08:58 08/21/25 09:00 08/21/25 08:00 08/21/25 09:00 FiO2 92 08/18/25 11:46 Narrative Exam GENERAL: A&Ox3, no acute distress HEENT: mucous membranes moist, bilateral sclera anicteric, dialysis catheter noted. CARDIOVASCULAR: Irregularly irregular, S1/S2 present, no murmurs appreciated PULMONARY: clear to auscultation bilaterally, no rales/rhonchi/wheezes ABDOMINAL: soft, non-tender, non-distended, no rebound/guarding, bowel sounds present EXTREMITIES: moderate BLE pitting edema SKIN: warm and dry, intact, no rashes NEURO: CN II-XII grossly intact, alert, following commands, L sided motor deficits, hand and feet flexed sensation intact, no neglect Objective Labs 08/21/25 04:44 08/21/25 04:44 Labs: Laboratory Results - last 24 hr 08/20/25 08/21/25 17:10 04:44 WBC 13.2 H D RBC 2.93 L Hgb 8.9 L Hct 28.1 L MCV 96 MCH 30.4 MCHC 31.7 RDW Std Deviation 55.1 H Plt Count 320 D Neut % (Auto) 73 Lymph % (Auto) 18 [place] % (Auto) 6 Eos % (Auto) 2 Baso % (Auto) 1 Neut # (Auto) 9.6 H Lymph # (Auto) 2.3 [place] # (Auto) 0.8 Eos # (Auto) 0.2 Baso # (Auto) 0.1 Immature Gran # (Auto) 0.09 H Absolute Nucleated RBC 0.00 Immature Gran % 1 H Nucleated RBC % 0 PT 10.8 INR 1.0 APTT 61.9 H 50.7 H D Sodium 138 139 Potassium 4.8 D 4.5 Chloride 98 95 L Carbon Dioxide 24.7 25.3 Anion Gap 15 19 H BUN 75 H 81 H Creatinine 5.4 H* 5.7 H* Estim Creat Clear Calc 13.7 L 13.0 L eGFR 8 L* 8 L* BUN/Creatinine Ratio 14 14 Glucose 87 84 Calculated Osmolality 296 H 300 H Calcium 9.3 9.6 Corrected Calcium 9.3 10.0 Phosphorus 5.3 H 5.7 H Magnesium 2.7 H Total Bilirubin 0.2 L AST 23 ALT 24 Alkaline Phosphatase 86 Total Protein 7.2 Albumin 4.0 3.5 D Globulin 3.7 H Albumin/Globulin Ratio 0.9 L Random Vancomycin 18.8 ABG Interpretation ABG results: 08/06/25 08/07/25 11:42 04:24 ABG pH 7.41 7.42 ABG pCO2 41 38 ABG pO2 96 71 L D ABG HCO3 26 25 ABG O2 Saturation 98 95 ABG Base Excess 1 0 Quality Measures Quality Measures none Assessment & Plan Assessment Current Active Medications: Generic Name Dose Route Start Last Admin Trade Name Freq PRN Reason Stop Dose Admin Acetaminophen 650 mg 08/06/25 15:58 08/20/25 12:31 Acetaminophen 325 Mg Tablet PO 09/05/25 15:57 650 mg Q6H PRN Administration Fever >100.4 or pain 1-3 Amiodarone HCl 200 mg 08/07/25 09:35 08/21/25 08:58 Amiodarone Hcl 200 Mg Tablet PO 09/06/25 09:34 200 mg BID RIANNA Administration Dextrose 25 ml 08/06/25 16:07 08/08/25 11:38 Dextrose 50%-Water Inj 50 Ml Syringe IV 09/05/25 16:06 25 ml Q15MIN PRN Administration BG 50-70 responsive npo pt Dextrose 50 ml 08/06/25 16:07 Dextrose 50%-Water Inj 50 Ml Syringe IV 09/05/25 16:06 Q15MIN PRN BG <50 OR BG <70 & pt unresponsive Divalproex Sodium 250 mg 08/20/25 14:00 08/21/25 05:38 Divalproex Sod Ec 125 Mg Tabec PO 09/19/25 13:59 250 mg TID RIANNA Administration Docusate Sodium 100 mg 08/07/25 09:00 08/21/25 08:58 Docusate Sod 100 Mg Capsule PO 09/06/25 08:59 100 mg QDAY RIANNA Administration Protocol Glucagon 1 mg 08/06/25 16:07 Glucagon Inj 1 Mg Vial IM Q15MIN PRN BG <70, and no IV access Heparin Sodium (Porcine) 2,600 unit 08/17/25 13:44 08/18/25 11:35 Heparin Sod Inj 1000 Unit/Ml Vial 10 Ml INDWELLCAT 08/23/25 13:43 2,600 unit On Hold: 08/21/25 07:30 X1 PRN Administration DIALYSIS Hydroxyzine HCl 25 mg 08/19/25 21:00 08/21/25 08:58 Hydroxyzine Hcl 25 Mg Tablet PO 09/18/25 20:59 25 mg BID RIANNA Administration Albumin Human 25 gm in 100 mls @ 100 mls/hr 08/18/25 09:13 08/18/25 10:02 Albuminex 25% Ivpb IV 100 mls/hr PRN PRN Administration DIALYSIS Heparin Sodium/Dextrose 25,000 unit in 250 mls @ 10 mls/hr 08/19/25 12:15 08/21/25 07:21 Heparin In D5w Ivpb IV 09/02/25 12:14 16 units/kg/hr .Q24H RIANNA 15.1 mls/hr Protocol Titration 10.596 UNITS/KG/HR Levothyroxine Sodium 50 mcg 08/08/25 06:00 08/21/25 05:38 Levothyroxine Sodium 25 Mcg Tablet PO 09/07/25 05:59 50 mcg ACBR RIANNA Administration Midodrine 10 mg 08/07/25 09:40 08/21/25 05:38 Midodrine 5 Mg Tablet PO 09/06/25 09:39 10 mg Q6HR RIANNA Administration Ondansetron HCl 4 mg 08/06/25 15:58 08/16/25 09:11 Ondansetron Inj 2 Mg/Ml Inj 2 Ml IVP 09/05/25 15:57 4 mg Q6H PRN Administration NAUSEA OR VOMITING Protocol Pharmacy Consult 1 each 08/11/25 09:00 Vancomycin Pharmacy To Dose 1 Each Each IV 09/10/25 08:59 QDAY PRN CONSULT Pharmacy Consult 1 each 08/11/25 08:54 Pharmacy Renal Dose Adjustment 1 Ea XX 09/10/25 08:53 PRN PRN CONSULT Ropinirole HCl 1 mg 08/19/25 21:00 08/21/25 08:58 Ropinirole Hcl 1 Mg Tablet PO 09/18/25 20:59 1 mg BID RIANNA Administration Vitamin B Complex/Vit C/Folic Acid 1 tab 08/08/25 16:30 08/21/25 08:58 Vit B12/Vit C/Fa (Nephrovite) Tablet PO 09/07/25 16:29 1 tab QDAY RIANNA Administration Plan Assessment and Plan: Summary: Ms. Elizondo is a 64-year-old female with past medical history of CVA, atrial fibrillation on Eliquis, HFrEF EF 15 to 20%, dilated cardiomyopathy, ESRD on hemodialysis Friday//Friday, hypothyroidism, iron deficiency anemia, nephrolithiasis and mood disorder who presented to [facility] emergency department on 08/06/2025, patient found to be lethargic and hypotensive with fever and was admitted to intensive care unit for distributive shock management. Further hospitalization course patient found to have infected dialysis catheter which was removed by interventional radiology, patient had temporary dialysis catheter placed. Post catheter exchange patient continues to be bacteremic and cardiology service consulted for JONES to rule out endocarditis. #Echodensity 1.5 x 0.8 cm at tip of venous catheter #Bacteremia #Rule out endocarditis Patient continues to have bacteremia post removal of dialysis catheter which was thought to be infected. Temporary dialysis catheter placed, latest blood cultures still positive for GPC. Infectious diseases following, per ID patient's likely source thought to be dialysis catheter. Patient continued to have bacteremia, patient initially refused JONES however eventually agreed to the procedure, JONES performed successful in 08/18/2025 Transesophageal echocardiogram 08/18/2025 shows Echodensity noted SVC and RA junction near the tip of the venous catheter measuring 1.5 x 0.8 cm. Cannot rule out vegetation versus small thrombus. No echo contrast/Definity at this institution to differentiate. There is no evidence of any valvular vegetation. No LA or ELZA thrombus. Bubble study negative for PFO or ASD. Left ventricular systolic function is severely reduced with visually estimated ejection fraction of 15-20%. Normal RV size and function. Moderate MR and moderate TR. Trace AI and trace PI. Systolic blunting in the pulmonary venous flow. Underlying etiology of the echodensity: Vegetation versus thrombus, Less likely thrombus as patient has been on eliquis. Recommend continuing antibiotics per infectious disease recommendations and patient already on anticoagulation. Can consider transesophageal echocardiogram after antibiotic treatment completion for 6 weeks if patient is still bacteremic to assess the echodensity again. #Heart failure with severely reduced ejection fraction, EF 15 to 20% #Dilated cardiomyopathy Patient has history of severely reduced ejection fraction heart failure. Has been seen in the past, well-known to practice. Recommended GDMT in the past however not noted on patient's med reconciliation. Patient has significant hypotension on midodrine, unable to tolerate GDMT Transthoracic echo 08/07/2025 shows 1. Left ventricle size is moderately enlarged and severe global hypokenesis and severe systolic dysfunction.. Estimated ejection fraction is 15-20%. 2. Right ventricle chamber size is normal and systolic function is mildly reduced. Estimated RVSP is 35-40 mmHg. Mild to moderate pulmonary hypertension. 3. Moderate MR, mild to moderate TR and trace AI. 4. The left atrium is severely enlarged. The right atrium is mildly enlarged. 5. Not well visualized IVC with estimated RA pressure 8 mmHg. Recommendations: - Continue hemodialysis to maintain euvolemia status - Introduce GDMT as tolerated, continue midodrine - Needs to follow-up with primary glost kiln operator outpatient. #Atrial fibrillation, by history Patient has history of atrial fibrillation on Eliquis CHADSVASC score 4, 4.8% stroke risk per year HASBLED 3 EKG 08/05/2025 shows A-fib with RVR ? Continue amiodarone 200 mg p.o. twice daily ? We recommend heparin gtt. if no contraindications and procedures are planned and Eliquis is contraindicated. ? Discharge on Eliquis ? Keep potassium greater than 4 and magnesium greater than 2 at all times #NSTEMI type II secondary to demand ischemia Patient denies any chest pain troponin initially elevated in setting of distributive shock #ESRD on hemodialysis #Electrolyte abnormalities #Hyperphosphatemia #Pressure ulcers #Hypothyroidism #History of CVA, residual left-sided hemiplegia ?Management per primary team Thank you for the consult and allowing to participate in the care of the patient. Cardiology will continue to follow. Case discussed with Attending Physician Dr. Bishnu Williamson MD Internal Medicine PGY-2 Disclaimer: This note was dictated by speech recognition. Minor errors in packaging tech may be present due to voice recognition software. Attending Provider Attestation/Addendum I have personally seen and examined the patient separately on the above date of service and discussed the plan of care with the resident. I reviewed the resident Dr. Kimani Williamson consultation progress note and agree with the resident findings and plan in the note above and have also edited the documentation to reflect my findings and plan. Bishnu Barcenas M.D. Interventional Cardiology
[2025-08-21] MEDS: ACETAMINOPHEN 325 MG TABLET 650 MG PO (15:21)
--- NOTE | 2025-08-21 23:20 | PC.NURSE ---
contacted Dr. Rich about Heparin bag being empty and it being time to hang a new one, due to Heparin being held at midnight, Dr. hsiehayed not hanging new bag and holding heparin.
[2025-08-22] VITALS (32 sets, daily range): BP systolic 91–149; BP diastolic 34–99; PULSE 54–104; RESP 14–22; TEMP 36.1–36.5; O2SAT 94–100; BMI 28.1
[2025-08-22] MEDS: MIDODRINE 5 MG TABLET 10 MG PO ×4 (00:24→18:21)
[2025-08-22] MEDS: DIVALPROEX SOD EC 125 MG TABEC 250 MG PO ×2 (05:22→21:22)
[2025-08-22] MEDS: LEVOTHYROXINE SODIUM 25 MCG TABLET 50 MCG PO (05:22)
[2025-08-22 06:25] LABS: Basophils # (Auto) 0.1 Thou/mm3 (0.0-0.2); Basophils % (Auto) 1 % (0-2.5); Eosinophils # (Auto) 0.2 Thou/mm3 (0.0-0.5); Eosinophils % (Auto) 2 % (0-10); Hematocrit 28.7 % (36.0-46.0); Hemoglobin 8.9 g/dL (12.0-16.0); Immature Granulocytes Auto 0.06 Thou/mm3 (0.00-0.00); Lymphocytes # (Auto) 2.1 Thou/mm3 (1.0-4.8); Lymphocytes % (Auto) 21 % (10-50); Mean Corpuscular HGB Conc 31.0 g/dl (31.0-37.0); Mean Corpuscular Hemoglobin 30.0 pg (25.0-35.0); Mean Corpuscular Volume 97 fL (80-100); Monocytes # (Auto) 0.5 Thou/mm3 (0.0-0.8); Monocytes % (Auto) 5 % (0-12); Neutrophils # (Auto) 7.4 Thou/mm3 (1.8-7.7); Neutrophils % (Auto) 71 % (37-80); Nucleated Red Blood Cell # 0.00 Thou/mm3 (0.00-0.00); Nucleated Red Blood Cell % 0 /100 WBC (0); Platelet Count 289 Thou/mm3 (140-440); RDW Standard Deviation 56.5 fL (36.4-46.3); Red Blood Count 2.97 Miln/mm3 (4.00-5.20); White Blood Count 10.3 Thou/mm3 (3.6-11.0)
[2025-08-22 06:33] LABS: INR 1.0 (0.9-1.3); Partial Thromboplastin Time 31.2 Seconds (22.0-36.0); Prothrombin Time 10.3 Seconds (9.0-12.2)
--- NOTE | 2025-08-22 07:00 | XR_ITS ---
Ultrasound-guided needle placement right internal jugular vein Permanent tunneled dialysis catheter insertion, percutaneous Fluoroscopy AP chest, portable, single view. Date and time of procedure: August 22, 2025, 0942 hours INDICATIONS: Need for long-term Instat dialysis with a permanent tunneled dialysis catheter Informed consent provided Technique: A timeout was completed verifying correct patient, procedure, site, positioning, and special equipment if applicable. The patient was placed in a dependent position appropriate for dialysis catheter placement based on the vein to be cannulated. The patient's right neck was prepped and draped in sterile fashion. Maximum Sterile Barrier Technique used including cap, mask, sterile gown, sterile gloves, and sterile full body drape. If ultrasound technique used: sterile gel and sterile probe covers. Hand Hygiene performed using proper scrub, soap and water, or alcohol-based hand rub. 1% lidocaine was used to anesthetize the surrounding skin area [employer] portable ultrasound apparatus utilized to confirm patency of the right internal jugular vein Utilizing ultrasonographic guidance successful 21-gauge needle puncture into the right internal jugular vein Ultrasound images were recorded and stored. Vessel micropuncture was performed with 21-gauge needle. 0.18 wire guide is introduced into the vein. 0.18 wire is introduced into the vena cava under fluoroscopy. Subcutaneous tunnel formed in the upper chest. Permanent tunneled dialysis catheter placed in the subcutaneous tunnel. Dilators were introduced over the J-wire guide. Tunneled dialysis catheter is introduced through a dilator with venous sheath into the superior vena cava under fluoroscopic guidance. The catheter is sutured in place to the skin and a sterile dressing applied. Perfusion to the extremity distal to the point of catheter insertion is checked and found to be adequate Attending radiologist was present for the entire procedure Estimated blood loss 2 cc. The patient tolerated the procedure well and there were no complications Impression: Successful ultrasound-guided needle placement right internal jugular vein Successful permanent tunneled dialysis catheter insertion, percutaneous Fluoroscopy 0.1-minute radiation dose 0.47 mGy 1 spot fluoroscopic chest film. AP chest performed at completion procedure demonstrates satisfactory position dialysis catheter. May use dialysis catheter.
[2025-08-22 07:10] LABS: Alanine Aminotransferase 24 U/L (10-49); Albumin, Serum 3.6 gm/dL (3.4-4.8); Albumin/Globulin Ratio 0.9 (1.2-2.2); Alkaline Phosphatase 90 U/L (46-116); Anion Gap 20 (7-16); Aspartate Amino Transferase 29 U/L (0-34); BUN/Creatinine Ratio 12 Ratio (12-20); Bilirubin,Total 0.2 mg/dL (0.3-1.2); Blood Urea Nitrogen 73 mg/dL (9-23); Calcium 9.6 mg/dL (8.3-10.6); Calcium (Corrected) 9.9 mg/dL (8.5-10.1); Carbon Dioxide 21.4 mMol/L (20.0-31.0); Chloride 94 mMol/L (98-107); Creatinine (Component) 6.3 mg/dL (0.6-1.3); Estimated Creatinine Clearance 11.8 mL/min (>60); Globulin 4.0 gm/dL (2.3-3.5); Glucose 76 mg/dL (74-106); Osmolality,Calculated 290 (275-295); Potassium 4.8 mMol/L (3.4-5.1); Sodium 135 mMol/L (136-145); Total Protein 7.6 gm/dL (5.7-8.2); eGFR 7 See Note
[2025-08-22 08:38] LABS: Vancomycin,Random 17.5 mcg/mL
[2025-08-22] MEDS: LIDOCAINE INJ PF 1% 30 ML VIAL 12 ML INFL (09:56)
[2025-08-22] MEDS: HEPARIN SOD LOCK SYR 100 UNIT/ML 500 UNIT STFIELD (09:56)
[2025-08-22] MEDS: fentaNYL CIT INJ 50 mCg/ML AMP 2ML 100 MCG IVP (10:21)
[2025-08-22] MEDS: HEPARIN SOD INJ 1000 UNIT/ML VIAL 3300 UNIT INDWELLCAT (10:52)
--- NOTE | 2025-08-22 10:57 | PC.SS ---
Follow up note: Perma cath today. Pt is possible d/c for tomorrow back to [facility] after recieving dialysis.
[2025-08-22] MEDS: HYDROmorphone INJ 2 MG/ML VIAL 0.5 MG IVP (12:10)
[2025-08-22 12:20] LABS: Magnesium 3.0 mg/dL (1.6-2.6); Phosphorous 6.7 mg/dL (2.4-5.1)
--- NOTE | 2025-08-22 13:09 | ESPR_ITS ---
RE: RUBÉN VIVAR : 1960 DATE OF SERVICE: 08/19/2025 HISTORY OF PRESENT ILLNESS: Briefly, she is a 64-year-old woman with past medical history significant for CVA, atrial fibrillation, heart failure with EF of 15- 20%, moderate pulmonary hypertension, and ESRD on dialysis since 04/30/2025, dialyzing every Friday, Friday at the [facility], who was admitted to the hospital on 08/06/2025 with fever and confusion and was found with MRSA septicemia. She was given vancomycin since admission; however, blood cultures continue to reveal persistent MRSA bacteremia. Initially, patient declined to undergo transesophageal echocardiogram, but agreed to have it done yesterday. JONES showed echodensity noted at SVC and RA junction near the tip of the venous catheter which measured 1.5 x 0.8 cm. Patient is currently on heparin drip and on continuous IV vancomycin. Patient had dialysis yesterday and the dialysis catheter was removed after dialysis. CURRENT MEDICATIONS: 1. Acetaminophen. 2. Amiodarone 200 mg b.i.d. 3. Heparin drip. 4. Midodrine 10 mg p.o. q.6h. 5. Levothyroxine 50 mcg p.o. daily. 6. Hydroxyzine 25 mg p.o. b.i.d. 7. Zofran 4 mg IV q.6h. 8. Ropinirole 1 mg p.o. b.i.d. 9. Vancomycin 1 g IV p.r.n. 10. Lolly-Syed 1 tablet p.o. daily. PHYSICAL EXAMINATION: General: She is awake, alert, oriented. Vitals: Blood pressure of 109/88, heart rate of 78. HEENT: Anicteric sclerae, normocephalic. Neck: Was supple with no JVD. Chest and lungs: Symmetric expansion, clear breath sounds. Cardiac exam: Without murmur. Abdomen: Soft and nontender. Extremities: 1-2+ bilateral pitting edema. LABORATORY DATA: Hemoglobin 11.2, WBC 20,000, platelet count 299,000. Sodium 142, potassium 4.4, chloride 99, CO2 of 25.5, BUN 49, creatinine 4.5. Calcium 9.6, phosphorus 4.8. ASSESSMENT: 1. End-stage renal disease. 2. Persistent methicillin-resistant Staphylococcus aureus bacteremia, most likely secondary to endocarditis 3. Anemia of chronic disease, now improved. 4. History of staghorn calculi. 5. Heart failure with reduced ejection fraction of 15-20%. 6. Hypotension, on midodrine. 7. SV thrombus PLAN: Patient is currently being treated withj vancomycin. Patient is also receiving heparin drip for possible thrombus. Dialysis catheter may be inserted over the weekend, which can be removed after each dialysis. Continue IV vancomycin as you are doing and checking levels every other day. DT: 23:42:33 TT: 00:18:00 Ref: [id number] - TID: [id number] MTDD
--- NOTE | 2025-08-22 13:10 | PD.RESDS ---
Planned Discharge Date 08/22/25 DS: Providers Provider Date of admission: 08/06/25 15:58 Primary care physician: Saida Mejía MD Admitting Provider: Hien Ervin MD Attending Provider on Admission: Terry Covarrubias DO Consults: 08/06/25 16:09 Referral Wound Care Routine Comment: 08/06/25 19:39 Consult to Nephrology Routine Comment: HDS TRF Consulting Provider: Park Landry 08/08/25 08:34 Consult to Infectious Diseases Routine Comment: Consulting Provider: Karlo Morfin 08/11/25 08:51 Consult to Cardiology Routine Comment: JONES for MRSA bacteremia Consulting Provider: Bishnu Barcenas 08/12/25 16:01 Referral Wound Care Urgent Comment: 08/18/25 16:34 Referral Wound Care Routine Comment: 08/18/25 16:36 Referral Nutritional Services Routine Comment: DTI over coccyx/sacrum Referral Registered Dietitian Routine Comment: DTI to coccyx/sacrum 08/20/25 20:09 Referral Wound Care Routine Comment: Right AC Attending Provider on DC: Rom Evans MD Discharging Provider: Rom Evans MD Hospital Course Hospital Course Hospital course: Patient seen and examined at bedside, no current complaints Blood pressure continues to remain soft, continue midodrine. Continue amiodarone, blood pressure still not permissible to start GDMT. Does have bilateral lower extremity edema, dialysis per nephrology. Time Spent with Patient Time attestation: Total time spent providing and/or coordinating discharge services: Exam Vital Signs Temp Pulse Resp BP Pulse Ox O2 Del Method O2 Flow Rate 97.2 F 77 20 105/40 L 94 L Nasal Cannula 4 08/22/25 12:41 08/22/25 13:01 08/22/25 12:41 08/22/25 13:01 08/22/25 12:41 08/22/25 12:00 08/22/25 12:41 FiO2 92 08/22/25 12:41 Discharge Plan Prescriptions/Referrals Prescriptions/Med Rec: No Action magnesium hydroxide [Milk of Magnesia] 30 ML/CUP suspension 30 ml PO Q72H PRN (Reason: CONSTIPATION) Qty: 0 multivitamin with minerals Tablet 1 tab PO QDAY Qty: 0 ascorbic acid (vitamin C) 500 mg Tablet 500 mg PO BID ondansetron HCl 4 mg tablet 4 mg PO Q6H hydrocodone-acetaminophen 10-325 mg tablet 1 tab PO Q6H ropinirole 1 mg tablet 1 mg PO BID hydroxyzine HCl 25 mg tablet 25 mg PO BID loratadine 10 mg tablet 10 mg PO Q24H sennosides-docusate sodium [Senna-S] 8.6-50 mg tablet 2 tab-cap PO QDAY divalproex [Depakote ER] 250 mg tablet extended release 24 hr 250 mg PO TID psyllium husk [Fiber Laxative (psyllium husk)] 0.52 gram capsule 0.52 g PO BID brimonidine 0.2 % drops 1 drp ophthalmic (eye) HS Rx Instructions: administer approximately 8 hours apart polyethylene glycol 3350 17 gram powder in packet 17 g PO QDAY melatonin 3 mg capsule 3 mg PO HS PRN (Reason: sleep) loperamide 2 mg tablet 4 mg PO Q12H PRN (Reason: loose stool) Enema 19-7 gram/118 mL enema 118 ml AK Q72H PRN (Reason: constipation) Rx Instructions: if MOM or Dulcolax not effective atorvastatin [Lipitor] 20 mg tablet 20 mg PO QPM bisacodyl [Dulcolax (bisacodyl)] 10 mg suppository 10 mg AK Q72H PRN (Reason: constipation if MOM not effective) glucagon 1 mg/0.2 mL auto-injector 1 mg subcut Q15H PRN (Reason: symptomatic hypoglycemia BS <70) naloxone [Rextovy] 4 mg/actuation spray,non-aerosol 1 spray intranasal Q2M PRN (Reason: opioid overdose) Rx Instructions: spray 1 dose into ONE nostril; alternate nostrils w each dose until help arrives, max dose 10mg midodrine 10 mg tablet 10 mg PO Q6H Rx Instructions: hold if SBP>140 and/or DBP >90 furosemide [Lasix] 40 mg tablet 40 mg PO QDAY PRN (Reason: Edema) 30 Days Qty: 30 0RF Rx Instructions: hold if SBP <100 and/or DBP<60 levothyroxine 50 mcg Tablet 50 mcg PO ACBR 30 Days Qty: 30 0RF Eliquis 5 mg tablet 5 mg PO BID amiodarone 200 mg tablet 200 mg PO BID Referrals: Saida Mejía MD [Primary Care Provider, Family Practice] Patient/Caregiver Discharge Instructions Print Language: Hebrew
[2025-08-22] MEDS: ALBUMIN HUMAN-KJDA 25% IVPB 25 GM/100 ML BTL IV (13:14)
[2025-08-22] MEDS: EPOETIN ALFA-EPBX INJ 10,000 UNIT/ML VIAL (NON-ESRD) 10000 UNIT IV (13:38)
--- NOTE | 2025-08-22 14:25 | PC.NURSE ---
spoke with Dr. Landry and asked if MRI with contrast ok to do. Per MD hsieh
--- NOTE | 2025-08-22 14:51 | PC.SS ---
SS followed up with Arminda from [facility] Dialysis who explained due to the holiday schedule she is requesting pt to re start dialysis on Friday at 1:15pm and pt get dialysis at hospital on Friday before being d/c to [facility]. Arminda will contact [employer] to transportation to dialysis from [facility]. Lana from [facility] is aware.
--- NOTE | 2025-08-22 15:07 | PD.RESPRO ---
Documentation for date of: 08/22/25 Subjective Subjective Interval history: Patient seen and examined at bedside; no acute events overnight. WBC count has now normalized (13). Dialysis catheter placed today; cannot do dialysis today due to issues with outpatient dialysis. Anticoagulation changed to eliquis 5 BID. Exam Vital Signs Temp Pulse Resp BP Pulse Ox O2 Del Method O2 Flow Rate 97.2 F 54 L 20 109/54 L 94 L Nasal Cannula 4 08/22/25 12:41 08/22/25 15:00 08/22/25 12:41 08/22/25 15:00 08/22/25 12:41 08/22/25 12:00 08/22/25 12:41 FiO2 92 08/22/25 12:41 Narrative Exam GENERAL: A&Ox3, no acute distress HEENT: mucous membranes moist, bilateral sclera anicteric, dialysis catheter noted. CARDIOVASCULAR: Irregularly irregular, S1/S2 present, no murmurs appreciated PULMONARY: clear to auscultation bilaterally, no rales/rhonchi/wheezes ABDOMINAL: soft, non-tender, non-distended, no rebound/guarding, bowel sounds present EXTREMITIES: trace BLE pitting edema SKIN: warm and dry, intact, no rashes NEURO: CN II-XII grossly intact, alert, following commands, L sided motor deficits, hand and feet flexed sensation intact, no neglect Objective Labs 08/23/25 04:45 08/23/25 04:45 Labs: Laboratory Results - last 24 hr 08/22/25 08/22/25 05:00 11:45 WBC 10.3 RBC 2.97 L Hgb 8.9 L Hct 28.7 L MCV 97 MCH 30.0 MCHC 31.0 RDW Std Deviation 56.5 H Plt Count 289 D Neut % (Auto) 71 Lymph % (Auto) 21 [place] % (Auto) 5 Eos % (Auto) 2 Baso % (Auto) 1 Neut # (Auto) 7.4 Lymph # (Auto) 2.1 [place] # (Auto) 0.5 Eos # (Auto) 0.2 Baso # (Auto) 0.1 Immature Gran # (Auto) 0.06 H Absolute Nucleated RBC 0.00 Immature Gran % 1 H Nucleated RBC % 0 PT 10.3 INR 1.0 APTT 31.2 D Sodium 135 L Potassium 4.8 Chloride 94 L Carbon Dioxide 21.4 Anion Gap 20 H BUN 73 H Creatinine 6.3 H* D Estim Creat Clear Calc 11.8 L eGFR 7 L* BUN/Creatinine Ratio 12 Glucose 76 Calculated Osmolality 290 Calcium 9.6 Corrected Calcium 9.9 Phosphorus 6.7 H Magnesium 3.0 H Total Bilirubin 0.2 L AST 29 ALT 24 Alkaline Phosphatase 90 Total Protein 7.6 Albumin 3.6 Globulin 4.0 H Albumin/Globulin Ratio 0.9 L Random Vancomycin 17.5 ABG Interpretation ABG results: 08/06/25 08/07/25 11:42 04:24 ABG pH 7.41 7.42 ABG pCO2 41 38 ABG pO2 96 71 L D ABG HCO3 26 25 ABG O2 Saturation 98 95 ABG Base Excess 1 0 Quality Measures Quality Measures none Assessment & Plan Assessment Current Active Medications: Generic Name Dose Route Start Last Admin Trade Name Freq PRN Reason Stop Dose Admin Acetaminophen 650 mg 08/06/25 15:58 08/21/25 15:21 Acetaminophen 325 Mg Tablet PO 09/05/25 15:57 650 mg Q6H PRN Administration Fever >100.4 or pain 1-3 Amiodarone HCl 200 mg 08/07/25 09:35 08/22/25 09:53 Amiodarone Hcl 200 Mg Tablet PO 09/06/25 09:34 Not Given BID RIANNA Apixaban 5 mg 08/22/25 21:00 Apixaban 2.5 Mg Tablet PO 09/21/25 20:59 BID RIANNA Dextrose 25 ml 08/06/25 16:07 08/08/25 11:38 Dextrose 50%-Water Inj 50 Ml Syringe IV 09/05/25 16:06 25 ml Q15MIN PRN Administration BG 50-70 responsive npo pt Dextrose 50 ml 08/06/25 16:07 Dextrose 50%-Water Inj 50 Ml Syringe IV 09/05/25 16:06 Q15MIN PRN BG <50 OR BG <70 & pt unresponsive Divalproex Sodium 250 mg 08/20/25 14:00 08/22/25 05:22 Divalproex Sod Ec 125 Mg Tabec PO 09/19/25 13:59 250 mg TID RIANNA Administration Docusate Sodium 100 mg 08/07/25 09:00 08/22/25 09:53 Docusate Sod 100 Mg Capsule PO 09/06/25 08:59 Not Given QDAY RIANNA Protocol Glucagon 1 mg 08/06/25 16:07 Glucagon Inj 1 Mg Vial IM Q15MIN PRN BG <70, and no IV access Heparin Sodium (Porcine) 2,600 unit 08/17/25 13:44 08/18/25 11:35 Heparin Sod Inj 1000 Unit/Ml Vial 10 Ml INDWELLCAT 08/23/25 13:43 2,600 unit On Hold: 08/21/25 07:30 X1 PRN Administration DIALYSIS Hydroxyzine HCl 25 mg 08/19/25 21:00 08/22/25 09:53 Hydroxyzine Hcl 25 Mg Tablet PO 09/18/25 20:59 Not Given BID RIANNA Albumin Human 25 gm in 100 mls @ 100 mls/hr 08/18/25 09:13 08/22/25 13:14 Albuminex 25% Ivpb IV 100 mls/hr PRN PRN Administration DIALYSIS Levothyroxine Sodium 50 mcg 08/08/25 06:00 08/22/25 05:22 Levothyroxine Sodium 25 Mcg Tablet PO 09/07/25 05:59 50 mcg ACBR RIANNA Administration Midodrine 10 mg 08/07/25 09:40 08/22/25 12:16 Midodrine 5 Mg Tablet PO 09/06/25 09:39 10 mg Q6HR RIANNA Administration Ondansetron HCl 4 mg 08/06/25 15:58 08/16/25 09:11 Ondansetron Inj 2 Mg/Ml Inj 2 Ml IVP 09/05/25 15:57 4 mg Q6H PRN Administration NAUSEA OR VOMITING Protocol Pharmacy Consult 1 each 08/11/25 09:00 Vancomycin Pharmacy To Dose 1 Each Each IV 09/10/25 08:59 QDAY PRN CONSULT Pharmacy Consult 1 each 08/11/25 08:54 Pharmacy Renal Dose Adjustment 1 Ea XX 09/10/25 08:53 PRN PRN CONSULT Ropinirole HCl 1 mg 08/19/25 21:00 08/22/25 09:53 Ropinirole Hcl 1 Mg Tablet PO 09/18/25 20:59 Not Given BID RIANNA Sennosides 2 tab 08/22/25 11:57 Senna Tablet PO 09/21/25 11:56 QDAY PRN CONSTIPATION Protocol Vitamin B Complex/Vit C/Folic Acid 1 tab 08/08/25 16:30 08/22/25 09:53 Vit B12/Vit C/Fa (Nephrovite) Tablet PO 09/07/25 16:29 Not Given QDAY RIANNA Plan 64-year-old female with PMH of 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 Landry, and history of staghorn calculi, was transferred to ED from a nursing facility with lethargy, hypotension, and fever. Patient admitted to ICU for sepsis workup and downgraded to floors on 08/07/25. #MRSA Bacteremia secondary to dialysis catheter / blood cultures 08/06/25 positive for GPCs 08/06/25 1/2 BCx + MRSA 08/15 Bcx 1/2 +MRSA 08/17 Bcx 1/2 +GPC 08/19 Bcx - for growth @ 48hrs WBC 13.2 today 08/21: Blood cultures are negative at 48 hours; 6 week time frame for vancomycin will start today. Plan: - Inserted new permanent catheter on Friday; will received dialysis tomorrow IV vancomycin (08/11 - ); 1.5g after each HD session with vanco troph weekly (08/21/25 - 09/30/25). Repeat JONES as outpatient with chief clerk Dr. Barcenas in 6 weeks. ID consulted, thank you for recs- vancomycin alone, B12 tablet daily, catheter needs 48h negative cultures MRI lumbar spine w/contrast was ordered to r/o osteomyelitis but pt refused. #End-stage renal disease on dialysis (T/T/F) #Electrolyte abnormalities #Hyperphosphatemia #Hyperkalemia Plan: - insulin IV 5u, dextrose 50% IV 25mL, Albuterol 0.5mL x2puff, Kayexalate, and bicitra Po 30ml x1 Hemodialysis (T/T/F) Avoid nephrotoxic agents, renally dose medicines Give midodrine after dialysis if BP low #Agitation #Suicidal ideation, resolved Patient was very agitated today wanting to go home AMA; expressed suicidal ideation to myself and attending. Plan: Resumed home divalproex, ropinirole #A-fib [id number]: 5 Patient has history of A-fib. Plan: ? Monitor EKG - Amiodarone 200 BID - K > 4, Mg > 2 - Pt on heparin drip #HFrEF (15-20%), stable #Vegetation vs thrombus Longstanding hx. And previously patient has refused cardiac cath, continues to refuse. 08-07-25 Echo shows LV size moderately enlarged and severe global hypokinesis and severe systolic dysfunction estimated EF 15 to 20%. RV chamber size normal systolic function mildly reduced, RVSP 35 to 40 mmHg, mild to moderate pulmonary hypertension, moderate MR, mild to moderate TR and trace AI, LA severely enlarged, RA mildly enlarged JONES showed vegetation vs thrombus near SVC/RA junction; patient placed on heparin protocol Plan: ? Caution with fluids - Keep K>4 and Mg>2 at all times #Schizophrenia Plan: On home divalproex, hydroxyzine, ropinirole #Pressure ulcers Sacral and decubitous ulcer and lateral leg ulcers. Do not appear cellulitic, more granulotamous. Ankle has a purulent base with oozing without cellultic changes. Plan: Continue to monitor, wound care referral placed #Hypothyroidism Patient has history of hypothyroidism. Plan: On home levothyroxine 50mcg #Hx of CVA, residual L-sided hemiplegia Stable #Septic shock - Resolved #Hospital-associated pneumonia, resolved #NSTEMI type II, resolved Disposition: Med-Surg DVT prophylaxis: heparin drip GI prophylaxis: none Diet: Renal, 1L fluid restriction Lines: PIV CODE STATUS: Full code This case was discussed with my attending physician, Dr. Pruitt, and senior resident, Dr. Freeman. Rom Evans, PGY1 Senior Resident Attestation: The patient received from hemodialysis catheter this morning, and received 1 session of hemodialysis this afternoon. Patient will get another session of hemodialysis tomorrow, and will be discharged to SNF with vancomycin to be continued until 09/30/2025 on the days of hemodialysis after hemodialysis. I discussed with and supervised the internet site designer physician involved in the care of this patient. I personally saw and examined the patient and discussed the assessment and plan with the entire medicine team, including my attending. I agree with the assessment and plan as documented above. Lucian Freeman MD PGY3 Internal Medicine Attending Provider Attestation/Addendum I have seen and examined the patient. I was physically present for the horn portions of the services provided including history, physical exam, diagnosis, treatment plans and orders. I agree with assessment and plan of care as documented by residents. Even though this this note was carefully revised there may still be minor errors in resident care manager due to voice recognition software. Anahi Pruitt MD
[2025-08-22] MEDS: HEPARIN SOD INJ 1000 UNIT/ML VIAL 10 ML 3300 UNIT INDWELLCAT (15:40)
--- NOTE | 2025-08-22 19:54 | PD.RESPRO ---
Documentation for date of: 08/22/25 Subjective Subjective Interval history: No Overnight events. Labs reviewed and patient examined at the bedside. Patient denies any chest pain, SOB, palpitations, N/V. She has no other active complaints as of this moment. She will continue Amoidarone 200mg po bid, Midodrine 10mg po q6hr Discontinued heparin drip. Started on Eliquis 5mg po bid Trace edema noted BLE. Will continue dialysis session, per nephrology. BP not permissible to start GDMT. Exam Vital Signs Temp Pulse Resp BP Pulse Ox O2 Del Method O2 Flow Rate 97.6 F 68 18 102/67 94 L Nasal Cannula 3 08/22/25 16:00 08/22/25 18:21 08/22/25 16:00 08/22/25 18:21 08/22/25 16:00 08/22/25 12:00 08/22/25 16:00 FiO2 92 08/22/25 16:00 Narrative Exam GENERAL: A&Ox3, no acute distress HEENT: mucous membranes moist, bilateral sclera anicteric, dialysis catheter noted. CARDIOVASCULAR: Irregularly irregular, S1/S2 present, no murmurs appreciated PULMONARY: clear to auscultation bilaterally, no rales/rhonchi/wheezes ABDOMINAL: soft, non-tender, non-distended, no rebound/guarding, bowel sounds present EXTREMITIES: trace BLE pitting edema SKIN: warm and dry, intact, no rashes NEURO: CN II-XII grossly intact, alert, following commands, L sided motor deficits, hand and feet flexed sensation intact, no neglect Objective Labs 08/23/25 04:45 08/23/25 04:45 Labs: Laboratory Results - last 24 hr 08/22/25 08/22/25 05:00 11:45 WBC 10.3 RBC 2.97 L Hgb 8.9 L Hct 28.7 L MCV 97 MCH 30.0 MCHC 31.0 RDW Std Deviation 56.5 H Plt Count 289 D Neut % (Auto) 71 Lymph % (Auto) 21 [place] % (Auto) 5 Eos % (Auto) 2 Baso % (Auto) 1 Neut # (Auto) 7.4 Lymph # (Auto) 2.1 [place] # (Auto) 0.5 Eos # (Auto) 0.2 Baso # (Auto) 0.1 Immature Gran # (Auto) 0.06 H Absolute Nucleated RBC 0.00 Immature Gran % 1 H Nucleated RBC % 0 PT 10.3 INR 1.0 APTT 31.2 D Sodium 135 L Potassium 4.8 Chloride 94 L Carbon Dioxide 21.4 Anion Gap 20 H BUN 73 H Creatinine 6.3 H* D Estim Creat Clear Calc 11.8 L eGFR 7 L* BUN/Creatinine Ratio 12 Glucose 76 Calculated Osmolality 290 Calcium 9.6 Corrected Calcium 9.9 Phosphorus 6.7 H Magnesium 3.0 H Total Bilirubin 0.2 L AST 29 ALT 24 Alkaline Phosphatase 90 Total Protein 7.6 Albumin 3.6 Globulin 4.0 H Albumin/Globulin Ratio 0.9 L Random Vancomycin 17.5 ABG Interpretation ABG results: 08/06/25 08/07/25 11:42 04:24 ABG pH 7.41 7.42 ABG pCO2 41 38 ABG pO2 96 71 L D ABG HCO3 26 25 ABG O2 Saturation 98 95 ABG Base Excess 1 0 Quality Measures Quality Measures none Assessment & Plan Assessment Current Active Medications: Generic Name Dose Route Start Last Admin Trade Name Freq PRN Reason Stop Dose Admin Acetaminophen 650 mg 08/06/25 15:58 08/21/25 15:21 Acetaminophen 325 Mg Tablet PO 09/05/25 15:57 650 mg Q6H PRN Administration Fever >100.4 or pain 1-3 Amiodarone HCl 200 mg 08/07/25 09:35 08/22/25 09:53 Amiodarone Hcl 200 Mg Tablet PO 09/06/25 09:34 Not Given BID RIANNA Apixaban 5 mg 08/22/25 21:00 Apixaban 2.5 Mg Tablet PO 09/21/25 20:59 BID RIANNA Dextrose 25 ml 08/06/25 16:07 08/08/25 11:38 Dextrose 50%-Water Inj 50 Ml Syringe IV 09/05/25 16:06 25 ml Q15MIN PRN Administration BG 50-70 responsive npo pt Dextrose 50 ml 08/06/25 16:07 Dextrose 50%-Water Inj 50 Ml Syringe IV 09/05/25 16:06 Q15MIN PRN BG <50 OR BG <70 & pt unresponsive Divalproex Sodium 250 mg 08/20/25 14:00 08/22/25 15:26 Divalproex Sod Ec 125 Mg Tabec PO 09/19/25 13:59 Not Given TID RIANNA Docusate Sodium 100 mg 08/07/25 09:00 08/22/25 09:53 Docusate Sod 100 Mg Capsule PO 09/06/25 08:59 Not Given QDAY RIANNA Protocol Glucagon 1 mg 08/06/25 16:07 Glucagon Inj 1 Mg Vial IM Q15MIN PRN BG <70, and no IV access Heparin Sodium (Porcine) 3,300 unit 08/22/25 15:08 08/22/25 15:40 Heparin Sod Inj 1000 Unit/Ml Vial 10 Ml INDWELLCAT 08/27/25 15:07 3,300 unit X1 PRN Administration DIALYSIS Hydroxyzine HCl 25 mg 08/19/25 21:00 08/22/25 09:53 Hydroxyzine Hcl 25 Mg Tablet PO 09/18/25 20:59 Not Given BID RIANNA Albumin Human 25 gm in 100 mls @ 100 mls/hr 08/18/25 09:13 08/22/25 13:14 Albuminex 25% Ivpb IV 100 mls/hr PRN PRN Administration DIALYSIS Levothyroxine Sodium 50 mcg 08/08/25 06:00 08/22/25 05:22 Levothyroxine Sodium 25 Mcg Tablet PO 09/07/25 05:59 50 mcg ACBR RIANNA Administration Midodrine 10 mg 08/07/25 09:40 08/22/25 18:21 Midodrine 5 Mg Tablet PO 09/06/25 09:39 10 mg Q6HR RIANNA Administration Ondansetron HCl 4 mg 08/06/25 15:58 08/16/25 09:11 Ondansetron Inj 2 Mg/Ml Inj 2 Ml IVP 09/05/25 15:57 4 mg Q6H PRN Administration NAUSEA OR VOMITING Protocol Pharmacy Consult 1 each 08/11/25 09:00 Vancomycin Pharmacy To Dose 1 Each Each IV 09/10/25 08:59 QDAY PRN CONSULT Pharmacy Consult 1 each 08/11/25 08:54 Pharmacy Renal Dose Adjustment 1 Ea XX 09/10/25 08:53 PRN PRN CONSULT Ropinirole HCl 1 mg 08/19/25 21:00 08/22/25 09:53 Ropinirole Hcl 1 Mg Tablet PO 09/18/25 20:59 Not Given BID RIANNA Sennosides 2 tab 08/22/25 11:57 Senna Tablet PO 09/21/25 11:56 QDAY PRN CONSTIPATION Protocol Vitamin B Complex/Vit C/Folic Acid 1 tab 08/08/25 16:30 08/22/25 09:53 Vit B12/Vit C/Fa (Nephrovite) Tablet PO 09/07/25 16:29 Not Given QDAY RIANNA Plan Summary: Ms. Elizondo is a 64-year-old female with past medical history of CVA, atrial fibrillation on Eliquis, HFrEF EF 15 to 20%, dilated cardiomyopathy, ESRD on hemodialysis Friday//Friday, hypothyroidism, iron deficiency anemia, nephrolithiasis and mood disorder who presented to [facility] emergency department on 08/06/2025, patient found to be lethargic and hypotensive with fever and was admitted to intensive care unit for distributive shock management. Further hospitalization course patient found to have infected dialysis catheter which was removed by interventional radiology, patient had temporary dialysis catheter placed. Post catheter exchange patient continues to be bacteremic and cardiology service consulted for JONES to rule out endocarditis. #Echodensity 1.5 x 0.8 cm at tip of venous catheter #Bacteremia #Rule out endocarditis Patient continues to have bacteremia post removal of dialysis catheter which was thought to be infected. Temporary dialysis catheter placed, latest blood cultures still positive for GPC. Infectious diseases following, per ID patient's likely source thought to be dialysis catheter. Patient continued to have bacteremia, patient initially refused JONES however eventually agreed to the procedure, JONES performed successful in 08/18/2025 Transesophageal echocardiogram 08/18/2025 shows Echodensity noted SVC and RA junction near the tip of the venous catheter measuring 1.5 x 0.8 cm. Cannot rule out vegetation versus small thrombus. No echo contrast/Definity at this institution to differentiate. There is no evidence of any valvular vegetation. No LA or ELZA thrombus. Bubble study negative for PFO or ASD. Left ventricular systolic function is severely reduced with visually estimated ejection fraction of 15-20%. Normal RV size and function. Moderate MR and moderate TR. Trace AI and trace PI. Systolic blunting in the pulmonary venous flow. Underlying etiology of the echodensity: Vegetation versus thrombus, Less likely thrombus as patient has been on eliquis. Recommend continuing antibiotics per infectious disease recommendations and patient already on anticoagulation. Can consider transesophageal echocardiogram after antibiotic treatment completion for 6 weeks if patient is still bacteremic to assess the echodensity again. #Heart failure with severely reduced ejection fraction, EF 15 to 20% #Dilated cardiomyopathy Patient has history of severely reduced ejection fraction heart failure. Has been seen in the past, well-known to practice. Recommended GDMT in the past however not noted on patient's med reconciliation. Patient has significant hypotension on midodrine, unable to tolerate GDMT Transthoracic echo 08/07/2025 shows 1. Left ventricle size is moderately enlarged and severe global hypokenesis and severe systolic dysfunction.. Estimated ejection fraction is 15-20%. 2. Right ventricle chamber size is normal and systolic function is mildly reduced. Estimated RVSP is 35-40 mmHg. Mild to moderate pulmonary hypertension. 3. Moderate MR, mild to moderate TR and trace AI. 4. The left atrium is severely enlarged. The right atrium is mildly enlarged. 5. Not well visualized IVC with estimated RA pressure 8 mmHg. Recommendations: - Continue hemodialysis to maintain euvolemia status - Introduce GDMT as tolerated, continue midodrine - Needs to follow-up with primary manager employee benefits outpatient. #Atrial fibrillation, by history Patient has history of atrial fibrillation on Eliquis CHADSVASC score 4, 4.8% stroke risk per year HASBLED 3 EKG 08/05/2025 shows A-fib with RVR ? Continue amiodarone 200 mg p.o. twice daily ? Discontinued heparin drip. Started on Eliquis 5mg po bid ? Keep potassium greater than 4 and magnesium greater than 2 at all times #NSTEMI type II secondary to demand ischemia Patient denies any chest pain troponin initially elevated in setting of distributive shock #ESRD on hemodialysis #Electrolyte abnormalities #Hyperphosphatemia #Pressure ulcers #Hypothyroidism #History of CVA, residual left-sided hemiplegia -Management per Primary Hospitalist team Thank you for allowing us to participate in the care of Ms. Hollie Whaley. Cardiology will continue to follow. Assessment and plan discussed with my attending physician Dr. Swapna Call (PGY-1) - Internal medicine resident Attending Provider Attestation/Addendum I have personally seen and examined the patient separately on the above date of service and discussed the plan of care with the resident. I reviewed the resident Dr. Raheem Call consultation progress note and agree with the resident findings and plan in the note above and have also edited the documentation to reflect my findings and plan. Bishnu Barcenas M.D. Interventional Cardiology
[2025-08-22] MEDS: AMIODARONE HCL 200 MG TABLET PO (21:23)
[2025-08-22] MEDS: APIXABAN 2.5 MG TABLET 5 MG PO (21:23)
--- NOTE | 2025-08-22 22:02 | ESPR_ITS ---
RE: RUBÉN VIVAR : 1960 DATE OF SERVICE: 08/22/2025 HISTORY OF PRESENT ILLNESS: Briefly, she is a 64-year-old woman with past medical history significant for CVA, atrial fibrillation, heart failure with EF of 15- 20%, moderate pulmonary hypertension, and ESRD, on dialysis since 04/30/2025, dialyzing every Friday, Friday, Friday at the [facility], who was admitted to the hospital on 08/06/2025 with fever and confusion and was found with MRSA septicemia. She was given vancomycin since admission; however, blood cultures continue to be MRSA bacteremia. The patient declined to go for JONES, but agrees to have it done later on. The patient is on heparin drip and on IV vancomycin. CURRENT MEDICATIONS: 1. Acetaminophen. 2. Amiodarone. 3. Albumin. 4. Epogen 10,000 units subcutaneously x1. 5. Eliquis 2.5 mg b.i.d. PHYSICAL EXAMINATION: GENERAL: She is asleep on dialysis, tolerating it well. LABORATORY DATA: Hemoglobin 8.9, WBC 10,300, platelet count 289,000. Sodium 135, potassium 4.8, chloride 94, CO2 of 21.4, BUN 71, creatinine 6.3, glucose 76, phosphorus 6.7. ASSESSMENT: 1. ESRD. 2. Persistent methicillin-resistant Staphylococcus aureus bacteremia secondary to possible endocarditis. 3. Anemia of chronic kidney disease. 4. History of staghorn calculi. 5. Heart failure with reduced ejection fraction of 15-20%. 6. Hypertension, on midodrine. 7. Superior vena cava thrombus. PLAN: The patient is currently on vancomycin and may need to extend it for total of 6 weeks to cover for endocarditis. The patient can be discharged to group home after dialysis today. We will continue vancomycin for the next 4 weeks in the outpatient setting. DT: :53:29 TT: 22:01:00 Ref: [id number] - TID: [id number] MTDD
[2025-08-23] VITALS (24 sets, daily range): BP systolic 83–178; BP diastolic 44–144; PULSE 53–84; RESP 17–20; TEMP 36.1–37; O2SAT 95–99; BMI 27.1
[2025-08-23] MEDS: MIDODRINE 5 MG TABLET 10 MG PO ×2 (00:20→05:21)
[2025-08-23] MEDS: DIVALPROEX SOD EC 125 MG TABEC 250 MG PO (05:21)
[2025-08-23] MEDS: LEVOTHYROXINE SODIUM 25 MCG TABLET 50 MCG PO (05:21)
[2025-08-23 06:36] LABS: Basophils # (Auto) 0.1 Thou/mm3 (0.0-0.2); Basophils % (Auto) 1 % (0-2.5); Eosinophils # (Auto) 0.1 Thou/mm3 (0.0-0.5); Eosinophils % (Auto) 1 % (0-10); Hematocrit 29.8 % (36.0-46.0); Hemoglobin 9.3 g/dL (12.0-16.0); Immature Granulocytes Auto 0.03 Thou/mm3 (0.00-0.00); Lymphocytes # (Auto) 1.5 Thou/mm3 (1.0-4.8); Lymphocytes % (Auto) 15 % (10-50); Mean Corpuscular HGB Conc 31.2 g/dl (31.0-37.0); Mean Corpuscular Hemoglobin 30.4 pg (25.0-35.0); Mean Corpuscular Volume 97 fL (80-100); Monocytes # (Auto) 0.8 Thou/mm3 (0.0-0.8); Monocytes % (Auto) 8 % (0-12); Neutrophils # (Auto) 7.7 Thou/mm3 (1.8-7.7); Neutrophils % (Auto) 76 % (37-80); Nucleated Red Blood Cell # 0.00 Thou/mm3 (0.00-0.00); Nucleated Red Blood Cell % 0 /100 WBC (0); Platelet Count 295 Thou/mm3 (140-440); RDW Standard Deviation 56.6 fL (36.4-46.3); Red Blood Count 3.06 Miln/mm3 (4.00-5.20); White Blood Count 10.1 Thou/mm3 (3.6-11.0)
[2025-08-23 06:57] LABS: Alanine Aminotransferase 18 U/L (10-49); Albumin, Serum 4.3 gm/dL (3.4-4.8); Albumin/Globulin Ratio 1.3 (1.2-2.2); Alkaline Phosphatase 84 U/L (46-116); Anion Gap 16 (7-16); Aspartate Amino Transferase 16 U/L (0-34); BUN/Creatinine Ratio 11 Ratio (12-20); Bilirubin,Total 0.2 mg/dL (0.3-1.2); Blood Urea Nitrogen 43 mg/dL (9-23); Calcium 9.5 mg/dL (8.3-10.6); Calcium (Corrected) 9.5 mg/dL (8.5-10.1); Carbon Dioxide 25.2 mMol/L (20.0-31.0); Chloride 99 mMol/L (98-107); Creatinine (Component) 3.8 mg/dL (0.6-1.3); Estimated Creatinine Clearance 19.2 mL/min (>60); Globulin 3.4 gm/dL (2.3-3.5); Glucose 95 mg/dL (74-106); Magnesium 2.3 mg/dL (1.6-2.6); Osmolality,Calculated 290 (275-295); Phosphorous 5.6 mg/dL (2.4-5.1); Potassium 4.2 mMol/L (3.4-5.1); Sodium 140 mMol/L (136-145); Total Protein 7.7 gm/dL (5.7-8.2); Vancomycin,Random 13.7 mcg/mL; eGFR 13 See Note
[2025-08-23] MEDS: ALBUMIN HUMAN-KJDA 25% IVPB 25 GM/100 ML BTL IV (09:29)
--- NOTE | 2025-08-23 11:03 | PC.SS ---
Addendum entered by Irene Avelar 08/23/25 11:37: SS spoke to Destiney from [facility] who confirmed she received physician note for pt requiring IV antibiotic after dialysis session and they are able to accommodate. Destiney is aware pt will return to [facility] today and will resume dialysis on Friday. Original Note: has setup gurney transportation with Rosa from [facility] for 1pm to [facility].? Ref [id number].? SS has requested [facility].? Per [facility] brewery representative, [facility] is not a guaranteed transport company but request was been noted.? Estimated time is 3-4 hours.? SS has sent patient?s facesheet and ambulance form to [facility] using [employer].? SS has spoken to Anjali from [facility] who received call from [facility] and transportation has been set for 1pm. [facility] and [facility] are aware pt will not be ready before 1pm due to requiring dialysis before dc. Pt is aware. Lana from [facility] is aware. Bedside nurseAisha is aware. Dayna MCDERMOTT is aware.
--- NOTE | 2025-08-23 11:54 | PD.RESDS ---
Planned Discharge Date 08/23/25 DS: Providers Provider Date of admission: 08/06/25 15:58 Primary care physician: Saida Mejía MD Admitting Provider: Hien Ervin MD Attending Provider on Admission: Anahi Pruitt MD Consults: 08/06/25 16:09 Referral Wound Care Routine Comment: 08/06/25 19:39 Consult to Nephrology Routine Comment: HDS TRF Consulting Provider: Park Landry 08/08/25 08:34 Consult to Infectious Diseases Routine Comment: Consulting Provider: Karlo Morfin 08/11/25 08:51 Consult to Cardiology Routine Comment: JONES for MRSA bacteremia Consulting Provider: Bishnu Barcenas 08/12/25 16:01 Referral Wound Care Urgent Comment: 08/18/25 16:34 Referral Wound Care Routine Comment: 08/18/25 16:36 Referral Nutritional Services Routine Comment: DTI over coccyx/sacrum Referral Registered Dietitian Routine Comment: DTI to coccyx/sacrum 08/20/25 20:09 Referral Wound Care Routine Comment: Right AC Attending Provider on DC: Anahi Pruitt MD Discharging Provider: Anahi Pruitt MD DS: Diagnosis Problem List Completed Was Problem List Reviewed/Reconciled?: Yes Hospital Course Hospital Course Hospital course: Hospital Course: Patient is 64-year-old female with PMH of CVA, atrial fibrillation on amiodarone and Eliquis, HfREF,, ESRD, and history of staghorn calculi, was transferred to the emergency department from nursing facility on 08/06 for lethargy, hypotensive, and fever. Patient admitted to ICU for sepsis workup on 08/06. Was on pressors until 08/07, when she was downgraded to floors on vancomycin and amidarone for her A-fib; blood cultures from 08/06 were positive for MRSA and echo showed EF 15-20%. Catheter removed on 08/08 by IR as it was considered a potential infection source. On 08/10, rapid was called due to significant bleeding at catheter site, which resolved with catheter staying in place. On 08/14, patient had suicidal ideation, refused JONES to rule out vegetation and was placed on 1 to 1 sitter. By 08/18, blood cultures were still positive; patient agreed to JONES, which was suspicious for either vegetation or thrombus, so 6 weeks of vancomycin from 1st negative blood culture were required. By 08/21, blood cultures were negative at 48 hours; thus patient would received 6 weeks of vancomycin until 09/30/25. Permacath was placed on 08/22, and patient received dialysis that day and on 08/23. She was stable for discharge on 08/23. Discharge Instructions: Please follow-up with your PCP within 1 week of discharge. Please follow-up with your salt washer harvesting station within 1 week of discharge. Please follow-up with business mail entry clerk and Dr. Barcenas in 6 weeks, to schedule appointment for outpatient transesophageal echocardiography. You have been started on: -Vancomycin 1.5 g IV 3 times weekly, and should be given after each session of hemodialysis until 09/30/2025. Please check for vancomycin trough every weekly Please check for CBC, CMP and ESR every weekly Continue taking all other medicines as prescribed earlier - Follow up with your primary care physician within 1 week of discharge. If you do not have a primary care physician, please follow up with the [facility] Residents clinic ([phone]) ? If you experience any new, worsening or persistent symptoms either call your primary doctor, or dial 911 or present to the emergency department. Problem List: #MRSA Bacteremia secondary to dialysis catheter #End-stage renal disease on dialysis (T/T/F) #Electrolyte abnormalities #Hyperphosphatemia #Hyperkalemia #Agitation #Suicidal ideation, resolved #A-fib #HFrEF (15-20%), stable #Vegetation vs thrombus #Schizophrenia #Pressure ulcers #Hypothyroidism #Hx of CVA, residual L-sided hemiplegia #Septic shock - Resolved #Hospital-associated pneumonia, resolved #NSTEMI type II, resolved This case was discussed with my attending physician, Dr. Pruitt, and senior resident, Dr. Freeman. Rom Evans MD, PGY1 Senior Resident Attestation: I discussed with and supervised the internal communications writer physician involved in the care of this patient. I personally saw and examined the patient and discussed the assessment and plan with the entire medicine team, including my attending. I agree with the discharge plan as documented above. Lucian Freeman MD PGY3 Internal Medicine Status at Discharge Overall status at discharge: patient is progressing back to baseline Time Spent with Patient Time attestation: Total time spent providing and/or coordinating discharge services: 32 minutes Time spent: Greater than 30 minutes Exam Vital Signs Temp Pulse Resp BP Pulse Ox O2 Del Method O2 Flow Rate 97.8 F 62 18 103/57 L 99 Nasal Cannula 2 08/23/25 11:38 08/23/25 11:51 08/23/25 11:38 08/23/25 11:51 08/23/25 11:38 08/23/25 07:24 08/23/25 11:38 FiO2 92 08/22/25 16:00 Narrative Exam GENERAL: A&Ox3, no acute distress HEENT: mucous membranes moist, bilateral sclera anicteric, dialysis catheter noted. CARDIOVASCULAR: Irregularly irregular, S1/S2 present, no murmurs appreciated PULMONARY: clear to auscultation bilaterally, no rales/rhonchi/wheezes ABDOMINAL: soft, non-tender, non-distended, no rebound/guarding, bowel sounds present EXTREMITIES: trace BLE pitting edema SKIN: warm and dry, intact, no rashes NEURO: CN II-XII grossly intact, alert, following commands, L sided motor deficits, hand and feet flexed sensation intact, no neglect Discharge Plan Plan Patient Disposition: Xfer Skilled Nsg Fac (SNF) Patient condition on transfer: Stable and Benefits outweigh risks Care Plan Goals: Please follow-up with your PCP within 1 week of discharge. Please follow-up with your salt was[facility] harvesting station within 1 week of discharge. Please follow-up with business mail entry clerk and Dr. Barcenas in 6 weeks, to schedule appointment for outpatient transesophageal echocardiography. You have been started on: -Vancomycin 1.5 g IV 3 times weekly, and should be given after each session of hemodialysis until 09/30/2025. Please check for vancomycin trough every weekly Please check for CBC, CMP and ESR every weekly Continue taking all other medicines as prescribed earlier - Follow up with your primary care physician within 1 week of discharge. If you do not have a primary care physician, please follow up with the [facility] Residents clinic ([phone]) ? If you experience any new, worsening or persistent symptoms either call your primary doctor, or dial 911 or present to the emergency department. Prescriptions/Referrals Prescriptions/Med Rec: New vancomycin 1.5 gram recon soln 1.5 g IV Q48H 38 Days Rx Instructions: Please give 1.5g after each session of HD, that would be 3 times a week. Continued magnesium hydroxide [Milk of Magnesia] 30 ML/CUP suspension 30 ml PO Q72H PRN (Reason: CONSTIPATION) Qty: 0 multivitamin with minerals Tablet 1 tab PO QDAY Qty: 0 ascorbic acid (vitamin C) 500 mg Tablet 500 mg PO BID ondansetron HCl 4 mg tablet 4 mg PO Q6H hydrocodone-acetaminophen 10-325 mg tablet 1 tab PO Q6H ropinirole 1 mg tablet 1 mg PO BID hydroxyzine HCl 25 mg tablet 25 mg PO BID loratadine 10 mg tablet 10 mg PO Q24H sennosides-docusate sodium [Senna-S] 8.6-50 mg tablet 2 tab-cap PO QDAY divalproex [Depakote ER] 250 mg tablet extended release 24 hr 250 mg PO TID psyllium husk [Fiber Laxative (psyllium husk)] 0.52 gram capsule 0.52 g PO BID brimonidine 0.2 % drops 1 drp ophthalmic (eye) HS Rx Instructions: administer approximately 8 hours apart polyethylene glycol 3350 17 gram powder in packet 17 g PO QDAY melatonin 3 mg capsule 3 mg PO HS PRN (Reason: sleep) loperamide 2 mg tablet 4 mg PO Q12H PRN (Reason: loose stool) Enema 19-7 gram/118 mL enema 118 ml LA Q72H PRN (Reason: constipation) Rx Instructions: if MOM or Dulcolax not effective atorvastatin [Lipitor] 20 mg tablet 20 mg PO QPM bisacodyl [Dulcolax (bisacodyl)] 10 mg suppository 10 mg LA Q72H PRN (Reason: constipation if MOM not effective) glucagon 1 mg/0.2 mL auto-injector 1 mg subcut Q15H PRN (Reason: symptomatic hypoglycemia BS <70) naloxone [Rextovy] 4 mg/actuation spray,non-aerosol 1 spray intranasal Q2M PRN (Reason: opioid overdose) Rx Instructions: spray 1 dose into ONE nostril; alternate nostrils w each dose until help arrives, max dose 10mg midodrine 10 mg tablet 10 mg PO Q6H Rx Instructions: hold if SBP>140 and/or DBP >90 furosemide [Lasix] 40 mg tablet 40 mg PO QDAY PRN (Reason: Edema) 30 Days Qty: 30 0RF Rx Instructions: hold if SBP <100 and/or DBP<60 levothyroxine 50 mcg Tablet 50 mcg PO ACBR 30 Days Qty: 30 0RF Eliquis 5 mg tablet 5 mg PO BID amiodarone 200 mg tablet 200 mg PO BID Referrals: Saida Mejía MD [Primary Care Provider, Family Practice] Patient/Caregiver Discharge Instructions Discharge Activity: as per physical therapy Education Materials: JONES, ED Bacteremia, Suspected (Adult) Print Language: Amharic Stand Alone Forms: Amita Award Info., Patient Portal Info Letter Discharge Order Discharge Orders: Discharge (Routine); Ordered 08/23/25 Ordered By: Jonatan Kimble Quality Discharge Quality Measures none MD Attestestation MD Attestation I have seen and examined the patient. I was physically present for the horn portions of the services provided including history, physical exam, diagnosis, treatment plans and orders. I agree with assessment and plan of care as documented by residents. Even though this this note was carefully revised there may still be minor errors in cash on delivery clerk due to voice recognition software. Anahi Pruitt MD
[2025-08-23] MEDS: HEPARIN SOD INJ 1000 UNIT/ML VIAL 10 ML 3300 UNIT INDWELLCAT (11:56)
--- NOTE | 2025-08-23 11:57 | ESPR_ITS ---
Documentation for date of: 08/23/25 Subjective Subjective Interval history: No Overnight events. Labs reviewed and patient examined at the bedside. Patient denies any chest pain, SOB, palpitations, N/V. She has no other active complaints as of this moment. She will continue Amoidarone 200mg po bid, Midodrine 10mg po q6hr and Eliquis 5mg po bid Trace edema noted BLE. Will continue dialysis session, per nephrology. BP not permissible to start GDMT. Exam Vital Signs Temp Pulse Resp BP Pulse Ox O2 Del Method O2 Flow Rate 97.8 F 62 18 103/57 L 99 Nasal Cannula 2 08/23/25 11:38 08/23/25 11:51 08/23/25 11:38 08/23/25 11:51 08/23/25 11:38 08/23/25 07:24 08/23/25 11:38 FiO2 92 08/22/25 16:00 Narrative Exam GENERAL: A&Ox3, no acute distress HEENT: mucous membranes moist, bilateral sclera anicteric, dialysis catheter noted. CARDIOVASCULAR: Irregularly irregular, S1/S2 present, no murmurs appreciated PULMONARY: clear to auscultation bilaterally, no rales/rhonchi/wheezes ABDOMINAL: soft, non-tender, non-distended, no rebound/guarding, bowel sounds present EXTREMITIES: trace BLE pitting edema SKIN: warm and dry, intact, no rashes NEURO: CN II-XII grossly intact, alert, following commands, L sided motor deficits, hand and feet flexed sensation intact, no neglect Objective Labs 08/23/25 04:45 08/23/25 04:45 Labs: Laboratory Results - last 24 hr 08/22/25 08/23/25 11:45 04:45 WBC 10.1 RBC 3.06 L Hgb 9.3 L Hct 29.8 L MCV 97 MCH 30.4 MCHC 31.2 RDW Std Deviation 56.6 H Plt Count 295 Neut % (Auto) 76 Lymph % (Auto) 15 [place] % (Auto) 8 Eos % (Auto) 1 Baso % (Auto) 1 Neut # (Auto) 7.7 Lymph # (Auto) 1.5 [place] # (Auto) 0.8 Eos # (Auto) 0.1 Baso # (Auto) 0.1 Immature Gran # (Auto) 0.03 H Absolute Nucleated RBC 0.00 Immature Gran % 0 Nucleated RBC % 0 Sodium 140 Potassium 4.2 D Chloride 99 Carbon Dioxide 25.2 Anion Gap 16 BUN 43 H Creatinine 3.8 H D Estim Creat Clear Calc 19.2 L eGFR 13 L* BUN/Creatinine Ratio 11 L Glucose 95 Calculated Osmolality 290 Calcium 9.5 Corrected Calcium 9.5 Phosphorus 6.7 H 5.6 H Magnesium 3.0 H 2.3 Total Bilirubin 0.2 L AST 16 ALT 18 Alkaline Phosphatase 84 Total Protein 7.7 Albumin 4.3 D Globulin 3.4 Albumin/Globulin Ratio 1.3 Random Vancomycin 13.7 ABG Interpretation ABG results: 08/06/25 08/07/25 11:42 04:24 ABG pH 7.41 7.42 ABG pCO2 41 38 ABG pO2 96 71 L D ABG HCO3 26 25 ABG O2 Saturation 98 95 ABG Base Excess 1 0 Quality Measures Quality Measures none Assessment & Plan Assessment Current Active Medications: Generic Name Dose Route Start Last Admin Trade Name Freq PRN Reason Stop Dose Admin Acetaminophen 650 mg 08/06/25 15:58 08/21/25 15:21 Acetaminophen 325 Mg Tablet PO 09/05/25 15:57 650 mg Q6H PRN Administration Fever >100.4 or pain 1-3 Amiodarone HCl 200 mg 08/07/25 09:35 08/23/25 09:25 Amiodarone Hcl 200 Mg Tablet PO 09/06/25 09:34 Not Given BID RIANNA Apixaban 5 mg 08/22/25 21:00 08/23/25 09:25 Apixaban 2.5 Mg Tablet PO 09/21/25 20:59 Not Given BID RIANNA Dextrose 25 ml 08/06/25 16:07 08/08/25 11:38 Dextrose 50%-Water Inj 50 Ml Syringe IV 09/05/25 16:06 25 ml Q15MIN PRN Administration BG 50-70 responsive npo pt Dextrose 50 ml 08/06/25 16:07 Dextrose 50%-Water Inj 50 Ml Syringe IV 09/05/25 16:06 Q15MIN PRN BG <50 OR BG <70 & pt unresponsive Divalproex Sodium 250 mg 08/20/25 14:00 08/23/25 05:21 Divalproex Sod Ec 125 Mg Tabec PO 09/19/25 13:59 250 mg TID RIANNA Administration Docusate Sodium 100 mg 08/07/25 09:00 08/23/25 09:25 Docusate Sod 100 Mg Capsule PO 09/06/25 08:59 Not Given QDAY RIANNA Protocol Glucagon 1 mg 08/06/25 16:07 Glucagon Inj 1 Mg Vial IM Q15MIN PRN BG <70, and no IV access Heparin Sodium (Porcine) 3,300 unit 08/22/25 15:08 08/22/25 15:40 Heparin Sod Inj 1000 Unit/Ml Vial 10 Ml INDWELLCAT 08/27/25 15:07 3,300 unit X1 PRN Administration DIALYSIS Hydroxyzine HCl 25 mg 08/19/25 21:00 08/23/25 09:25 Hydroxyzine Hcl 25 Mg Tablet PO 09/18/25 20:59 Not Given BID RIANNA Vancomycin/Sodium Chloride 100 mls @ 120 mls/hr 08/23/25 15:00 Vancomycin/Ns 500 Mg Ivpb IV 08/23/25 15:49 X1 ONE Levothyroxine Sodium 50 mcg 08/08/25 06:00 08/23/25 05:21 Levothyroxine Sodium 25 Mcg Tablet PO 09/07/25 05:59 50 mcg ACBR RIANNA Administration Midodrine 10 mg 08/07/25 09:40 08/23/25 05:21 Midodrine 5 Mg Tablet PO 09/06/25 09:39 10 mg Q6HR RIANNA Administration Ondansetron HCl 4 mg 08/06/25 15:58 08/16/25 09:11 Ondansetron Inj 2 Mg/Ml Inj 2 Ml IVP 09/05/25 15:57 4 mg Q6H PRN Administration NAUSEA OR VOMITING Protocol Pharmacy Consult 1 each 08/11/25 09:00 Vancomycin Pharmacy To Dose 1 Each Each IV 09/10/25 08:59 QDAY PRN CONSULT Pharmacy Consult 1 each 08/11/25 08:54 Pharmacy Renal Dose Adjustment 1 Ea XX 09/10/25 08:53 PRN PRN CONSULT Ropinirole HCl 1 mg 08/19/25 21:00 08/23/25 09:25 Ropinirole Hcl 1 Mg Tablet PO 09/18/25 20:59 Not Given BID RIANNA Sennosides 2 tab 08/22/25 11:57 Senna Tablet PO 09/21/25 11:56 QDAY PRN CONSTIPATION Protocol Vitamin B Complex/Vit C/Folic Acid 1 tab 08/08/25 16:30 08/23/25 09:25 Vit B12/Vit C/Fa (Nephrovite) Tablet PO 09/07/25 16:29 Not Given QDAY RIANNA Plan Summary: Ms. Elizondo is a 64-year-old female with past medical history of CVA, atrial fibrillation on Eliquis, HFrEF EF 15 to 20%, dilated cardiomyopathy, ESRD on hemodialysis Friday//Friday, hypothyroidism, iron deficiency anemia, nephrolithiasis and mood disorder who presented to [facility] emergency department on 08/06/2025, patient found to be lethargic and hypotensive with fever and was admitted to intensive care unit for distributive shock management. Further hospitalization course patient found to have infected dialysis catheter which was removed by interventional radiology, patient had temporary dialysis catheter placed. Post catheter exchange patient continues to be bacteremic and cardiology service consulted for JONES to rule out endocarditis. #Echodensity 1.5 x 0.8 cm at tip of venous catheter #Bacteremia #Rule out endocarditis Patient continues to have bacteremia post removal of dialysis catheter which was thought to be infected. Temporary dialysis catheter placed, latest blood cultures still positive for GPC. Infectious diseases following, per ID patient's likely source thought to be dialysis catheter. Patient continued to have bacteremia, patient initially refused JONES however eventually agreed to the procedure, JONES performed successful in 08/18/2025 Transesophageal echocardiogram 08/18/2025 shows Echodensity noted SVC and RA junction near the tip of the venous catheter measuring 1.5 x 0.8 cm. Cannot rule out vegetation versus small thrombus. No echo contrast/Definity at this institution to differentiate. There is no evidence of any valvular vegetation. No LA or ELZA thrombus. Bubble study negative for PFO or ASD. Left ventricular systolic function is severely reduced with visually estimated ejection fraction of 15-20%. Normal RV size and function. Moderate MR and moderate TR. Trace AI and trace PI. Systolic blunting in the pulmonary venous flow. Underlying etiology of the echodensity: Vegetation versus thrombus, Less likely thrombus as patient has been on eliquis. Recommend continuing antibiotics per infectious disease recommendations and patient already on anticoagulation. Can consider transesophageal echocardiogram after antibiotic treatment completion for 6 weeks if patient is still bacteremic to assess the echodensity again. #Heart failure with severely reduced ejection fraction, EF 15 to 20% #Dilated cardiomyopathy Patient has history of severely reduced ejection fraction heart failure. Has been seen in the past, well-known to practice. Recommended GDMT in the past however not noted on patient's med reconciliation. Patient has significant hypotension on midodrine, unable to tolerate GDMT Transthoracic echo 08/07/2025 shows 1. Left ventricle size is moderately enlarged and severe global hypokenesis and severe systolic dysfunction.. Estimated ejection fraction is 15-20%. 2. Right ventricle chamber size is normal and systolic function is mildly reduced. Estimated RVSP is 35-40 mmHg. Mild to moderate pulmonary hypertension. 3. Moderate MR, mild to moderate TR and trace AI. 4. The left atrium is severely enlarged. The right atrium is mildly enlarged. 5. Not well visualized IVC with estimated RA pressure 8 mmHg. Recommendations: - Continue hemodialysis to maintain euvolemia status - Introduce GDMT as tolerated, continue midodrine - Needs to follow-up with primary administrative analyst outpatient. #Atrial fibrillation, by history Patient has history of atrial fibrillation on Eliquis CHADSVASC score 4, 4.8% stroke risk per year HASBLED 3 EKG 08/05/2025 shows A-fib with RVR ? Continue amiodarone 200 mg p.o. twice daily ? Discontinued heparin drip. Started on Eliquis 5mg po bid ? Keep potassium greater than 4 and magnesium greater than 2 at all times #NSTEMI type II secondary to demand ischemia Patient denies any chest pain troponin initially elevated in setting of distributive shock #ESRD on hemodialysis #Electrolyte abnormalities #Hyperphosphatemia #Pressure ulcers #Hypothyroidism #History of CVA, residual left-sided hemiplegia -Management per Primary Hospitalist team Thank you for allowing us to participate in the care of Ms. Hollie Whaley. Cardiology will continue to follow. Assessment and plan discussed with my attending physician Dr. Swapna Call (PGY-1) - Internal medicine resident Attending Provider Attestation/Addendum I have personally seen and examined the patient separately on the above date of service and discussed the plan of care with the resident. I reviewed the resident Dr. Raheem Call consultation progress note and agree with the resident findings and plan in the note above and have also edited the documentation to reflect my findings and plan. Bishnu Barcenas M.D. Interventional Cardiology
--- NOTE | 2025-08-23 12:10 | PC.NURSE ---
[facility] nurse tera 08/23/25 at 1216
== END 2025-08-23 13:20 | disposition skilled nursing facility (03) | DRG 280 ==
LOC: SERX 12:56 → SERHOLD 16:13 → S2SX 18:33 → S3SX 08-07 16:06 → S3NX 08-16 08:59
PROVIDERS: Internal Medicine Cardiovascular Disease; Internal Medicine Infectious Disease; Internal Medicine Nephrology; Radiology Diagnostic Radiology; Admitting Provider Internal Medicine; Emergency Provider Emergency Medicine; PCP Family Medicine; Visit Provider Student in an Organized Health Care Education/Training Program
PROC: (CPT 93312; principal; 2025-08-18 12:00)
DX: T80.211A Bloodstream infection due to central venous catheter, initial encounter (principal); A41.02 Sepsis due to Methicillin resistant Staphylococcus aureus; I21.A1 Myocardial infarction type 2; R65.21 Severe sepsis with septic shock; N18.6 End stage renal disease; J18.9 Pneumonia, unspecified organism; R57.8 Other shock; G93.41 Metabolic encephalopathy; I69.354 Hemiplegia and hemiparesis following cerebral infarction affecting left non-dominant side; I48.20 Chronic atrial fibrillation, unspecified; I13.2 Hypertensive heart and chronic kidney disease with heart failure and with stage 5 chronic kidney disease, or end stage renal disease; N17.9 Acute kidney failure, unspecified; G82.20 Paraplegia, unspecified; E87.20 Acidosis, unspecified; I82.210 Acute embolism and thrombosis of superior vena cava; R45.851 Suicidal ideations; L97.929 Non-pressure chronic ulcer of unspecified part of left lower leg with unspecified severity; I42.0 Dilated cardiomyopathy; I50.22 Chronic systolic (congestive) heart failure; E83.39 Other disorders of phosphorus metabolism; E03.9 Hypothyroidism, unspecified; D75.89 Other specified diseases of blood and blood-forming organs; L89.629 Pressure ulcer of left heel, unspecified stage; L89.159 Pressure ulcer of sacral region, unspecified stage; Y84.8 Other medical procedures as the cause of abnormal reaction of the patient, or of later complication, without mention of misadventure at the time of the procedure; D63.1 Anemia in chronic kidney disease; E11.22 Type 2 diabetes mellitus with diabetic chronic kidney disease; F20.9 Schizophrenia, unspecified; F41.9 Anxiety disorder, unspecified; I27.20 Pulmonary hypertension, unspecified; E87.5 Hyperkalemia; I95.89 Other hypotension; N20.0 Calculus of kidney; Y95 Nosocomial condition; Z53.20 Procedure and treatment not carried out because of patient's decision for unspecified reasons; Z79.01 Long term (current) use of anticoagulants; Z79.899 Other long term (current) drug therapy; Z87.891 Personal history of nicotine dependence; Z99.2 Dependence on renal dialysis; Z87.440 Personal history of urinary (tract) infections; Z88.2 Allergy status to sulfonamides
CPT/HCPCS: 36415; 36600; 51701; 71045; 71250; 73701; 74176; 76705; 76937; 77001; 80053; 80069; 80074; 80202; 81001; 82150; 82248; 82607; 82746; 82803; 83036; 83605; 83690; 83735; 83880; 84100; 84145; 84443; 84478; 84484; 85025; 85610; 85652; 85730; 86140; 86703; 86706; 86850; 86900; 86901; 87040; 87070; 87077; 87081; 87086; 87186; 87205; 87502; 87811; 93005; 93225; 93306; 93312; 94640; 96127; 96361; 96365; 96366; 96375; 99152; 99284; A4649; C1750; C1751; C1752; C1894; J0612; J1171; J1642; J1643; J1644; J1815; J1885; J2250; J2405; J2543; J2919; J3010; J3373; J3375; J3490; J7050; J7120; J7999; P9047; Q5106; Q9967; A9270